=== PATIENT | female | born 1950 | race Caucasian/White ===

== ENCOUNTER → 2018-07-22 09:39 | Outpatient (CLI) | payer OTHER, MEDICARE, SELFPAY ==
[2018-07-22 10:41] LABS: Add Manual Diff / Slide Review NO; Basophils Percent Auto 0.6 % (0-2); Eosinophils Percent Auto 3.9 % (2-4); Hematocrit 38.1 % (36-46); Hemoglobin 12.6 g/dL (12.0-16.0); Lymphocytes Percent Auto 22.1 % (25-40); Mean Corpuscular HGB Conc 33.1 % (30-36); Mean Corpuscular Hemoglobin 29.1 PG (26-34); Mean Corpuscular Volume 87.9 fL (80-100); Monocytes Percent Auto 7.8 % (3-14); Neutrophils Absolute Auto 3000 /uL (3000-5900); Neutrophils Percent Auto 65.6 % (50-75); Platelet Count 165 X10^3/uL (150-400); Red Blood Cell Count 4.33 X10^6/uL (4.0-5.2); Red Cell Distribution Width 16.2 % (11.6-14.8); White Blood Cell Count 4.5 X10^3/uL (4.5-11.0)
[2018-07-22 10:57] LABS: Blood Urea Nitrogen 24 mg/dL (7-17); Calcium 9.2 mg/dL (8.4-10.2); Carbon Dioxide 26 mmol/L (22-32); Chloride 104 mmol/L (98-107); Estimated Glomerular Filt Rate > 60.0 mL/min (>60); Glucose 221 mg/dL (80-110); HEMOLYSIS < 15 (0-50); Potassium 4.1 mmol/L (3.4-5.1); Sodium 139 mmol/L (137-145)
[2018-07-22 11:03] LABS: Hemoglobin A1C% w Est Avg Glu 7.7 % (4.0-6.0)
== END ==
PROVIDERS: PCP Internal Medicine; Visit Provider Internal Medicine
DX: E78.00 Pure hypercholesterolemia, unspecified (principal); E11.9 Type 2 diabetes mellitus without complications
CPT/HCPCS: 36415; 80048; 83036; 85025

== ENCOUNTER → 2019-01-14 09:41 | Outpatient (CLI) | payer OTHER, SELFPAY ==
[2019-01-14 10:19] LABS: Add Manual Diff / Slide Review NO; Basophils Absolute Auto 0 /uL (0-100); Basophils Percent Auto 0.8 % (0-2); Eosinophils Absolute Auto 200 /uL (0-450); Eosinophils Percent Auto 4.6 % (2-4); Hematocrit 41.1 % (36-46); Hemoglobin 13.3 g/dL (12.0-16.0); Lymphocytes Absolute Auto 1000 /uL (1100-4500); Lymphocytes Percent Auto 26.9 % (25-40); Mean Corpuscular HGB Conc 32.3 % (30-36); Mean Corpuscular Hemoglobin 28.7 PG (26-34); Mean Corpuscular Volume 88.8 fL (80-100); Monocytes Absolute Auto 300 /uL (0-900); Monocytes Percent Auto 7.9 % (3-14); Neutrophils Absolute Auto 2300 /uL (1500-7000); Neutrophils Percent Auto 59.8 % (50-75); Platelet Count 165 X10^3/uL (150-400); Red Blood Cell Count 4.62 X10^6/uL (4.0-5.2); White Blood Cell Count 3.9 X10^3/uL (4.5-11.0)
[2019-01-14 10:31] LABS: Alanine Aminotransferase 23 IU/L (9-52); Albumin Globulin Ratio 1.3 (1.0-2.8); Alkaline Phosphatase 79 U/L (38-126); Aspartate Aminotransferase 16 IU/L (14-36); Bilirubin Total 0.5 mg/dL (0.2-1.3); Blood Urea Nitrogen 24 mg/dL (7-17); Calcium 9.3 mg/dL (8.4-10.2); Carbon Dioxide 25 mmol/L (22-32); Chloride 104 mmol/L (98-107); Cholesterol 202 mg/dL (140-199); Estimated Glomerular Filt Rate > 60.0 mL/min (>60); Glucose 108 mg/dL (80-110); HDL Cholesterol 53 mg/dL (40-60); HEMOLYSIS < 15 (0-50); LDL Cholesterol Calculated 128 mg/dL (<100); Potassium 3.9 mmol/L (3.4-5.1); Sodium 139 mmol/L (137-145); Triglycerides 105 mg/dL (35-150)
[2019-01-14 10:58] LABS: Hemoglobin A1C% w Est Avg Glu 9.1 % (4.0-6.0)
[2019-01-14 11:43] LABS: Hep C Virus Ab w/Reflex Quant NEGATIVE s/c (NEGATIVE)
== END ==
PROVIDERS: Family Provider Internal Medicine; PCP Internal Medicine; Visit Provider Internal Medicine
DX: E11.9 Type 2 diabetes mellitus without complications (principal); E78.00 Pure hypercholesterolemia, unspecified; K76.0 Fatty (change of) liver, not elsewhere classified
CPT/HCPCS: 36415; 80053; 80061; 83036; 85025; 86803

== ENCOUNTER → 2019-01-23 08:00 | Outpatient (CLI) | payer OTHER, SELFPAY ==
--- NOTE | 2019-01-23 | DI.NM.S_ITS ---
PROCEDURE: NM KATE PERF SPECT R&S PHARM Rest and pharmacological stress myocardial perfusion SPECT with gated imaging and ejection fraction RADIOPHARMACEUTICAL: 26.2 mCi Tc-99m tetrafosmin IV at rest and 26.2 mCi Tc-99m tetrafosmin IV at peak effect of pharmacological stress. [id number] was performed. INDICATIONS: DYSPNEA TECHNIQUE: Radiopharmaceutical was injected at peak stress test, and also at rest. SPECT images were obtained. SPECT myocardial perfusion images were displayed in short axis, horizontal long axis, and vertical long axis views. Gated images were reviewed using [employer] software. COMPARISON: None. CARDIAC STRESS: A pharmacologic stress test was performed under the supervision of an attending staff, using an infusion of lexiscan 0.4mg IV X1. Hemodynamic data: There is normal blood pressure and heart rate response to pharmacologic stress. Symptoms: The patient denied anginal chest pain. Aminophylline: none EKG: No diagnostic changes of ischemia; no ectopy. FINDINGS: Raw data: There is good myocardial uptake of radiotracer. No significant motion artifacts. Lvyc-fi-vagzr ratio is 0.47 (normal is less than 0.38 for tetrafosmin tracer). Left ventricle function: Gated images demonstrate normal left ventricular wall thickening. No segmental wall motion abnormalities. No transient ischemic dilation; TID is 0.99 (normal less than 1.3). Left ventricle resting end diastolic volume is 138 mL. Left ventricle stress ejection fraction is 70%; normal range is above 45%. Myocardial perfusion: There is a moderately sized reversible defect at the apex consistent with ischemia. No infarction. SSS 9, SRS 0. IMPRESSION: abnormal pharmaceutical nuclear stress suggestive of ischemia. 1) Abnormal perfusion images, consistent with ischemia in the apex. No prior infarction. SSS 9, SRS 0. 2) Normal left ventricular size, wall motion, and systolic function (EF post stress 70%). 3) Abnormal lung/heart ratio of 0.47, which could be due to high risk ischemia. 4) No angina during the study. 5) No ECG evidence of ischemia. 6) No prior nuclear stress test available for comparison. Recommend cardiology consultation if consistent with patient's goals of care. Dictated by: Disha Poole MD on 01/24/2019 at 12:56 Approved by: Disha Poole MD on 01/24/2019 at 13:00
--- NOTE | 2019-01-23 09:29 | PM.TREADMILL ---
Cardiac Stress Test Report Referral & Results Date Patient Seen: 01/23/19 Requesting provider: Faustino Montesinos Indication: Dyspnea, several risk factors Rest ECG: Unremarkable Procedure Note: After both written and verbal informed consent the patient had an IV started by the diagnostic imaging RN and then was hooked up to the treadmill monitoring system. The patient was placed on the treadmill at 1 mile an hour with no elevation and was then injected with the Gina scan material. The Cardiolite was then immediately administered. The patient spent an additional 2-3 minutes on the treadmill before being returned to the [facility] in the supine position. The patient had a normal response to all infused materials. Patient became quite dyspneic with minimal activity, beyond the usual experienced with the infusion of Lexiscan Impression: Significant dyspnea with activity Otherwise normal response to infuse materials Please see perfusion imaging report for details regarding possible ischemia Please note: Actual ECG tracings can be found in the PACS system.
== END ==
PROVIDERS: Family Provider Internal Medicine; PCP Internal Medicine; Visit Provider Internal Medicine
DX: R06.00 Dyspnea, unspecified (principal); I25.9 Chronic ischemic heart disease, unspecified
CPT/HCPCS: 78452; 93016; 93017; 93018; A9502; J2785

== ENCOUNTER 2019-03-10 17:47 | Emergency (ER) | payer OTHER, MEDICARE, SELFPAY ==
[2019-03-10 17:54] VITALS: BP 155/75; PULSE 72; RESP 18; TEMP 36.2; O2SAT 98; BMI 46.6
--- NOTE | 2019-03-10 18:03 | DI.RAD.S_ITS ---
PROCEDURE: XR ANKLE RT MIN 3V INDICATIONS: FOOT AND ANKLE PAIN AND INJURY TECHNIQUE: 3 views of the ankle were acquired. COMPARISON: [facility], CR, XR FOOT RT MIN 3V, 03/10/2019, 18:19. FINDINGS: Bones: No dislocations. Ankle mortise is normally aligned. No suspicious bony lesions. There is a diagonal fracture across the base of the fifth metatarsal bone, also seen on foot plain films same day. Soft tissues: No tibiotalar joint effusion. Achilles tendon appears normal. IMPRESSION: No trauma to the ankle found. Fifth metatarsal base fracture also seen on dedicated plain films of the foot from today. Dictated by: Josemanuel Juarez M.D. on 03/10/2019 at 18:57 Approved by: Josemanuel Juarez M.D. on 03/10/2019 at 18:57
--- NOTE | 2019-03-10 18:03 | DI.RAD.S_ITS ---
PROCEDURE: XR FOOT RT MIN 3V INDICATIONS: FOOT AND ANKLE PAIN AND INJURY TECHNIQUE: 3 views of the foot were acquired. COMPARISON: [facility], CR, XR ANKLE RT MIN 3V, 03/10/2019, 18:19. FINDINGS: Bones: No fractures or dislocations. No suspicious bony lesions. Diagonall intra-articular fracture across the base of the fifth metatarsal bone. Soft tissues: No tibiotalar joint effusion. Achilles tendon appears normal. IMPRESSION: Fifth metatarsal bone diagonal fracture, no definite acute disease otherwise. Dictated by: Josemanuel Juarez M.D. on 03/10/2019 at 18:54 Approved by: Josemanuel Juarez M.D. on 03/10/2019 at 18:56
--- NOTE | 2019-03-10 19:04 | ED.LOWEXIN ---
HPI - Extremity Injury (Lower) General Chief Complaint: Extremity Injury, Lower Stated Complaint: right foot pain Source: patient Mode of arrival: ambulatory Limitations: no limitations History of Present Illness HPI Narrative: Patient is a 68-year-old female who presents with right foot pain. She said she rolled her ankle is today at about 7:00 a.m.. She has been able to weightbear some but mostly toe touching. She heard something snap. She has mostly pain on the lateral side of her foot. No other injury knee and hip are stable. she says that she injured it multiple years ago and heard a snap as well she feels like this is in the same place. Patient also had cardiac stents placed last week. She is on Plavix. She has no chest pain no shortness of breath no other signs or symptoms. MD complaint: foot injury Related Data Home Medications Medication Instructions Recorded Confirmed ASPIRIN (Aspirin Ec) 81 mg PO Q DAY #0 10/28/06 [FLAXSEED OIL ] 1 cap PO QDAY #0 10/28/06 benazepril 40 mg PO QDAY #0 07/08/11 pravastatin [Pravachol] 20 mg PO QDAY #0 07/08/11 omeprazole 20 mg PO QDAY@0600 #0 06/09/12 cyclosporine [Restasis] 1 drp OPHTH PRN PRN #0 11/16/16 insulin NPH and regular human 35 units SQ BID #0 11/16/16 [Novolin 70/30 U-100 Insulin] melatonin 3 mg PO HS #0 11/16/16 montelukast 10 mg PO QDAY #0 11/16/16 olopatadine [Patanol] 1 drp OPHTH BID #0 11/16/16 pseudoephedrine HCl 30 mg PO Q12HP PRN #0 11/16/16 triamcinolone acetonide 1 miguel ángel TOPICAL PRN #0 11/16/16 [FISH OIL] 1 cap PO QDAY #0 01/27/18 atenolol 25 mg PO QDAY #0 01/27/18 furosemide 20 mg PO QDAY #0 01/27/18 ketoconazole 1 miguel ángel TOPICAL BID #0 01/27/18 pioglitazone [Actos] 45 mg PO QDAY #0 01/27/18 potassium chloride [Klor-Con M20] 20 meq PO AMCC #0 01/27/18 sodium chloride [Preston 128] 15 ml OPHTH HS #0 01/27/18 vitamin B complex [B 1 tab PO QDAY #0 01/27/18 Complex-Vitamin B12] Previous Rx's Medication Instructions Recorded metformin [Glucophage] 500 mg PO BIDCC #120 05/12/12 metronidazole [MetroCream] 0 TOPICAL SEE INSTRUCTIONS #45 gm 06/09/12 sumatriptan succinate 0 PO SEE INSTRUCTIONS #18 12/13/12 loratadine [Claritin] 10 mg PO QDAYP PRN #90 05/11/13 hydrocodone-acetaminophen [Pierre Part] 1 tab PO Q4-6H PRN #10 tab 03/10/19 Allergies Allergy/AdvReac Type Severity Reaction Status Date / Time blood preasure med? AdvReac Unknown unknown Uncoded 03/10/19 17:54 Review of Systems Review of Systems GENERAL: Denies chills,fever HEENT: Denies throat pain RESPIRATORY: Denies dyspnea, cough, wheezing CARDIOVASCULAR: Denies chest pain, palpitations GASTROINTESTINAL: Denies nausea, vomiting MUSCULOSKELETAL: See HPI SKIN: No rash, no laceration, no pruritus NEUROLOGIC: Denies weakness, dizziness, headache, numbness 8 point review of systems is negative except for those stated above and HPI PFSH Medical History Coronary artery disease (Acute) Diabetes (Acute) Hyperlipidemia (Acute) Hypertension (Acute) Social History Smoking Status: Never smoker Social History Smoking Status: Never smoker Exam Initial Vital Signs Initial Vital Signs: Vital Signs Temperature 97.2 F L 03/10/19 17:54 Pulse Rate 72 03/10/19 17:54 Respiratory Rate 18 03/10/19 17:54 Blood Pressure 155/75 H 03/10/19 17:54 Pulse Oximetry 98 03/10/19 17:54 GENERAL: Overweight female in no acute distress HEENT: Head atraumatic,EOMI, pupils reactive, CARDIOVASCULAR: Regular rate and rhythm without murmurs, rubs or gallops. RESPIRATORY: Breath sounds equal bilaterally, no wheezes rales or rhonchi. EXTREMITIES: Normal range of motion, no clubbing or edema. Neurovascularly intact -right lower extremity pain lateral foot and just inferior to the malleoli. No swelling no contusion or trauma distal pedal pulse intact. Able to flex and extend foot. Achilles intact and stable NEUROLOGICAL: Alert and oriented x4.Normal gait and speech. SKIN: Warm, dry, no laceration, no petechiae, no rashes or lesions. Procedures Orthopedic Splinting/Casting Injury #1: Side: right Lower Extremity Injury Location: foot Lower Extremity Immobilizer: post-op shoe Post splinting neuro exam: intact Post splinting vascular exam: intact Placed by: Nursing Course Orders Ordered: ED Orders 03/10/19 18:03 XR ankle RT min 3V Stat XR foot RT min 3V Stat Discontinued Medications Acetaminophen (Tylenol) 975 mg PO NOW ONE Stop: 03/10/19 18:58 Last Admin: 03/10/19 19:38 Dose: 975 mg Vital Signs - 8 hr 03/10/19 17:54 03/10/19 19:55 Temperature 97.2 F L 98.2 F Pulse Rate 72 78 Respiratory Rate 18 18 Blood Pressure 155/75 H Pulse Oximetry 98 100 MDM - Extremity Injury (Lower) Imaging Data right ankle xr: Radiologist's impression: PROCEDURE: XR ANKLE RT MIN 3V INDICATIONS: FOOT AND ANKLE PAIN AND INJURY TECHNIQUE: 3 views of the ankle were acquired. COMPARISON: [facility], XR FOOT RT MIN 3V, 03/10/2019, 18:19. FINDINGS: Bones: No dislocations. Ankle mortise is normally aligned. No suspicious bony lesions. There is a diagonal fracture across the base of the fifth metatarsal bone, also seen on foot plain films same day. Soft tissues: No tibiotalar joint effusion. Achilles tendon appears normal. IMPRESSION: No trauma to the ankle found. Fifth metatarsal base fracture also seen on dedicated plain films of the foot from today. Dictated by: Josemanuel Juarez M.D. on 03/10/2019 at 18:57 right foot: Radiologist's impression: PROCEDURE: XR FOOT RT MIN 3V INDICATIONS: FOOT AND ANKLE PAIN AND INJURY TECHNIQUE: 3 views of the foot were acquired. COMPARISON: [facility], , XR ANKLE RT MIN 3V, 03/10/2019, 18:19. FINDINGS: Bones: No fractures or dislocations. No suspicious bony lesions. Diagonall intra-articular fracture across the base of the fifth metatarsal bone. Soft tissues: No tibiotalar joint effusion. Achilles tendon appears normal. IMPRESSION: Fifth metatarsal bone diagonal fracture, no definite acute disease otherwise. Dictated by: Josemanuel Juarez M.D. on 03/10/2019 at 18:54 Approved by: Josemanuel Juarez M.D. on 03/10/2019 at 18:56 Discharge Plan Departure Patient Disposition: Home Clinical Impression: Closed nondisplaced fracture of fifth right metatarsal bone Qualifiers: Encounter type: initial encounter Qualified Code(s): S92.354A - Nondisplaced fracture of fifth metatarsal bone, right foot, initial encounter for closed fracture Discharge Date/Time: 03/10/19 19:56 Interventions: ED Discharge Assessment Last Done: 03/10/19 19:55 Instructions: DI for Foot Fracture Activity Restrictions/Additional Instructions: *You have been diagnosed with right foot fracture *What to do: This may require surgery. Please keep orthopedic shoe on. *Continue to take medications as directed -Pierre Part 1 tablet every 6 hours if needed for severe pain Tylenol 650 mg every 4-6 hours if needed for [id number] *Follow up with your primary care provider in 2-3 days *Return to ER if you should have increasing numbness, tingling, or any new, worsening or concerning symptoms CONTROLLED SUBSTANCE DISCHARGE (Narcotoic/benzodiazepine/Flexeril/Phenergan) 1. You have been prescribed narcotic medications, it does have acetaminophen/Tylenol/paracetamol in it so do not take extra Tylenol or Tylenol containing products 2. Please understand that we cannot provide further refills of narcotics, benzodiazepines or controlled substances through the ED and her pain management will need to be through your provider. 3. While on these medications you cannot drive or operate heavy machinery. 4. You cannot sign legal documents or perform any duties such as this. 5. As long as you're taking opiate pain medications he should also be taking a stool softener such as Colace, Dulcolax, MiraLAX or prune juice, to help avoid constipation. Prescriptions: New hydrocodone-acetaminophen [Pierre Part] 5-325 mg tablet 1 tab PO Q4-6H PRN (Reason: pain) Qty: 10 RF: 0 No Action ASPIRIN (Aspirin Ec) 81 mg PO Q DAY Qty: 0 RF: 0 [FLAXSEED OIL ] 1 cap PO QDAY Qty: 0 RF: 0 benazepril 40 MG tablet 40 mg PO QDAY Qty: 0 RF: 0 pravastatin [Pravachol] 20 MG tablet 20 mg PO QDAY Qty: 0 RF: 0 metformin [Glucophage] 500 MG tablet 500 mg PO BIDCC Qty: 120 RF: 3 metronidazole [MetroCream] 0.75 % cream Topical SEE INSTRUCTIONS Qty: 45 RF: 3 omeprazole 20 MG capsule,delayed release(DR/EC) 20 mg PO QDAY@0600 Qty: 0 RF: 0 sumatriptan succinate 50 MG tablet PO SEE INSTRUCTIONS Qty: 18 RF: 6 loratadine [Claritin] 10 MG tablet 10 mg PO QDAYP PRNQty: 90 RF: 3 montelukast 10 MG tablet 10 mg PO QDAY Qty: 0 RF: 0 olopatadine [Patanol] 5 ML drops 1 drp OPHTH BID Qty: 0 RF: 0 insulin NPH and regular human [Novolin 70/30 U-100 Insulin] 100 UNIT/1 ML suspension 35 units SQ BID Qty: 0 RF: 0 cyclosporine [Restasis] 1 EACH dropperette 1 drp OPHTH PRN PRNQty: 0 RF: 0 melatonin 3 MG tablet 3 mg PO HS Qty: 0 RF: 0 triamcinolone acetonide 0.025 % cream 1 miguel ángel Topical PRN Qty: 0 RF: 0 pseudoephedrine HCl 30 MG tablet 30 mg PO Q12HP PRNQty: 0 RF: 0 atenolol 25 MG tablet 25 mg PO QDAY Qty: 0 RF: 0 pioglitazone [Actos] 45 MG tablet 45 mg PO QDAY Qty: 0 RF: 0 [FISH OIL] 1 cap PO QDAY Qty: 0 RF: 0 sodium chloride [Preston 128] 15 ML drops 15 ml OPHTH HS Qty: 0 RF: 0 vitamin B complex [B Complex-Vitamin B12] 1 EACH tablet 1 tab PO QDAY Qty: 0 RF: 0 ketoconazole 2 % cream 1 miguel ángel Topical BID Qty: 0 RF: 0 potassium chloride [Klor-Con M20] 20 MEQ tablet,ER particles/crystals 20 meq PO AMCC Qty: 0 RF: 0 furosemide 20 MG tablet 20 mg PO QDAY Qty: 0 RF: 0 Referrals: [facility] [Provider Group] Faustino Montesinos MD [Primary Care Provider] -
[2019-03-10] MEDS: ACETAMINOPHEN 325 MG TABLET 975 MG PO (19:38)
[2019-03-10 19:55] VITALS: PULSE 78; RESP 18; TEMP 36.8; O2SAT 100
== END 2019-03-10 19:56 | disposition home or self-care (01) ==
PROVIDERS: Emergency Provider Emergency Medicine; Family Provider Internal Medicine; PCP Internal Medicine
DX: S92.354A Nondisplaced fracture of fifth metatarsal bone, right foot, initial encounter for closed fracture (principal); M25.571 Pain in right ankle and joints of right foot; Z79.02 Long term (current) use of antithrombotics/antiplatelets
CPT/HCPCS: 73610; 73630; 99282; 99283

== ENCOUNTER → 2019-05-24 17:23 | Outpatient (CLI) | payer OTHER, MEDICARE, SELFPAY ==
--- NOTE | 2019-05-24 | DI.RAD.S_ITS ---
PROCEDURE: XR CHEST 2V INDICATIONS: COUGH TECHNIQUE: 2 views of the chest were acquired. COMPARISON: [facility], , CHEST 2 VIEW, 06/08/2012, 16:24. FINDINGS: Surgical changes and devices: None. Lungs and pleura: Lungs are clear. No pleural effusions or pneumothorax. Mediastinum: Mediastinal contours are normal. Heart size is normal. Bones and chest wall: No suspicious bony abnormalities. Soft tissues appear unremarkable. IMPRESSION: No acute cardiopulmonary disease. Dictated by: Deep Pepe M.D. on 05/25/2019 at 9:16 Approved by: Deep Pepe M.D. on 05/25/2019 at 9:21
== END ==
PROVIDERS: Family Provider Internal Medicine; PCP Internal Medicine; Visit Provider Internal Medicine
DX: R05 Cough (principal)
CPT/HCPCS: 71046

== ENCOUNTER → 2019-07-10 09:41 | Outpatient (CLI) | payer OTHER, MEDICARE, SELFPAY ==
[2019-07-10 10:28] LABS: BUN Creatinine Ratio 32.5 (6-22); Blood Urea Nitrogen 26 mg/dL (7-17); Estimated Glomerular Filt Rate > 60.0 mL/min (>60)
[2019-07-10 10:30] LABS: Add Manual Diff / Slide Review NO; Basophils Absolute Auto 0 /uL (0-100); Basophils Percent Auto 0.6 % (0-2); Eosinophils Absolute Auto 100 /uL (0-450); Eosinophils Percent Auto 3.8 % (2-4); Hematocrit 37.3 % (36-46); Hemoglobin 12.2 g/dL (12.0-16.0); Lymphocytes Absolute Auto 900 /uL (1100-4500); Lymphocytes Percent Auto 23.6 % (25-40); Mean Corpuscular HGB Conc 32.6 % (30-36); Mean Corpuscular Hemoglobin 29.5 PG (26-34); Mean Corpuscular Volume 90.6 fL (80-100); Monocytes Absolute Auto 300 /uL (0-900); Neutrophils Absolute Auto 2400 /uL (1500-7000); Platelet Count 151 X10^3/uL (150-400); Red Blood Cell Count 4.12 X10^6/uL (4.0-5.2); Red Cell Distribution Width 15.7 % (11.6-14.8); White Blood Cell Count 3.9 X10^3/uL (4.5-11.0)
[2019-07-10 10:42] LABS: Alanine Aminotransferase 18 IU/L (9-52); Albumin Globulin Ratio 1.5 (1.0-2.8); Alkaline Phosphatase 63 U/L (38-126); Aspartate Aminotransferase 15 IU/L (14-36); BUN Creatinine Ratio 32.5 (6-22); Bilirubin Total 0.6 mg/dL (0.2-1.3); Bilirubin Unconjugated 0.4 mg/dL (0.0-1.1); Blood Urea Nitrogen 26 mg/dL (7-17); Calcium 9.1 mg/dL (8.4-10.2); Carbon Dioxide 25 mmol/L (22-32); Chloride 105 mmol/L (98-107); Cholesterol 103 mg/dL (140-199); Estimated Glomerular Filt Rate > 60.0 mL/min (>60); Globulin 2.6 g/dL (1.7-4.1); Glucose 257 mg/dL (80-110); HDL Cholesterol 54 mg/dL (40-60); HEMOLYSIS < 15 (0-50); LDL Cholesterol Calculated 33 mg/dL (<100); Potassium 4.3 mmol/L (3.4-5.1); Sodium 140 mmol/L (137-145); Total Protein 6.6 g/dL (6.3-8.2); Triglycerides 82 mg/dL (35-150)
[2019-07-10 11:41] LABS: TSH w/ Reflex to FT4 1.61 uIU/mL (0.47-4.68)
== END ==
PROVIDERS: PCP Internal Medicine; Visit Provider Internal Medicine Cardiovascular Disease
DX: E78.5 Hyperlipidemia, unspecified (principal); I10 Essential (primary) hypertension; K76.0 Fatty (change of) liver, not elsewhere classified; R68.89 Other general symptoms and signs; E11.9 Type 2 diabetes mellitus without complications
CPT/HCPCS: 36415; 80048; 80061; 80076; 82565; 84443; 84520; 85025

== ENCOUNTER → 2019-07-11 12:38 | Outpatient (CLI) | payer OTHER, MEDICARE, SELFPAY ==
--- NOTE | 2019-07-11 | DI.US.S_ITS ---
PROCEDURE: US PERIPH VENOUS UP EXTREM LT INDICATIONS: LEFT ARM SWELLING TECHNIQUE: Real-time imaging, as well as color and pulse Doppler interrogation, was performed of the left upper extremity deep veins from the inferior neck to the antecubital fossa. COMPARISON: None. FINDINGS: The internal jugular vein, visualized portions of the subclavian vein, axillary, and brachial veins are free of intraluminal thrombus. Where physically possible, the veins are normally compressible. Color and pulse Doppler demonstrate normal intraluminal flow, with expected phasicity and pulsatility. Additional scanning of the cephalic and basilic veins of the superficial system demonstrate normal compressibility, without thrombus. IMPRESSION: No left upper extremity venous thrombosis. Dictated by: Sravan TATE Interpreted: Laurie Haywood MD on 07/11/2019 at 14:12 Approved by: Laurie Haywood M.D. on 07/11/2019 at 14:42
--- NOTE | 2019-07-11 | DI.CT.S_ITS ---
PROCEDURE: CT ANGIO CHEST PE PROTOCOL INDICATIONS: DYSPNEA TECHNIQUE: After the administration of intravenous contrast, 2 mm thick sections acquired from the pulmonary apices to the posterior costophrenic angles. 3-dimensional maximum intensity projection (MIP) coronal and sagittal reformats were then acquired through the thorax. For radiation dose reduction, the following was used: automated exposure control, adjustment of mA and/or kV according to patient size. COMPARISON: None. FINDINGS: Image quality: Excellent. Pulmonary arteries: Pulmonary arteries are normal in size, and demonstrate no intraluminal filling defects to suggest central pulmonary embolism. Lungs and pleura: Lungs are mildly edematous. No pleural effusions or pneumothorax. Central and peripheral airways are patent. Mediastinum: Heart size is mildly enlarged, without pericardial effusion. No mediastinal or hilar adenopathy. Thoracic aorta is normal in caliber and enhancement. Esophagus is normal in caliber, without hiatal hernia. Bones and chest wall: No suspicious bony lesions. Ribs and thoracic spine appear intact throughout. Thyroid gland appears normal where well seen. No axillary or supraclavicular adenopathy. Abdomen: Visualized upper abdominal solid organs appear normal in the early arterial phase of enhancement. IMPRESSION: No pulmonary embolus found. Mild pulmonary edema noted within the lung parenchyma. Mild cardiomegaly. Etiology of this edema pattern is uncertain but statistically this likely reflects cardiogenic origin. Alveolar edema of any etiology, however, can produce this appearance. Dictated by: Josemanuel Juarez M.D. on 07/11/2019 at 14:11 Approved by: Josemanuel Juarez M.D. on 07/11/2019 at 14:12
== END ==
PROVIDERS: PCP Internal Medicine; Visit Provider Internal Medicine
DX: R06.00 Dyspnea, unspecified (principal); J81.1 Chronic pulmonary edema; I51.7 Cardiomegaly; M79.89 Other specified soft tissue disorders
CPT/HCPCS: 71275; 93971; Q9967

== ENCOUNTER → 2019-07-28 12:55 | Outpatient (CLI) | payer OTHER, MEDICARE, SELFPAY ==
--- NOTE | 2019-07-28 15:06 | DIET.PN ---
DIABETES Nutrition Initial Assessment:? ASSESS:?? 68 yof with long standing hx of type 2 diabetes and long-term use of insulin. Reports she was diagnosed approximately 9 years ago after several years with pre-diabetes. She also has a history of ASHD. She had 2 stents placed in January and has been going to cardiopulmonary rehabilitation for several months. She complains of edema in LE and left arm making exercise difficult. She monitors her BG in the morning. Complains even with cutting out sugar, flour, and dairy she is not seeing dramatic results with her FBG. ?? LABS: Per pt report:? A1c: 9.1 FB-201 ? MEDS:?? Novolin 35u a.m. 30u p.m. ? DIET: Per 24-hour recall:? B: 1 banana, whole wheat toast w/ butter, poached egg, ? c blueberries L: yogurt, 1 bagel w/ cream cheese D: 2 Tblsp PB, 1 chicken/apple sausage S: Orchard snack (almonds, walnuts, cranberries, pistachios), 5 cherries, ? cup blueberries ? Weight: 260# Height: 63? Exercise:? cardio rehab or walking 1 mi alternating days NUTRITION DX 1. Altered Nutrition related labs related to impaired glucose metabolism, lack of previous exposure to accurate nutrition information as evidenced by pt report, dx of diabetes, previous diet high in refined carbohydrates.? INTERVENTION(s): 1. Discussed pathophysiology of diabetes. Reviewed A1c and its correlation to blood glucose numbers. Discussed recommended BG ranges of FBG 90-130mg/dL and 90-150mg/dL evening. 2. Discussed importance of self-monitoring, how often, and when to check. Recommended pt begin monitoring evening Bg. 3. Reviewed hyper/hypoglycemia and treatment. 4. Discussed impact of nutrition/diet on blood sugar control.? Discussed fed versus non-fed state.?? 5. Discussed the effect of carbohydrates/protein/fat on blood sugar control.? Stressed importance of consistent carbohydrate intake at each meal and provided instructions for recommended servings/portions of carbohydrates/protein per meal. Provided pt with educational material. 6. Reviewed carbohydrate counting and measuring carbohydrate content via serving sizes and reading nutrition labels.? Provided handouts.?? 7. Discussed the difference between simple versus complex carbohydrates and the effect of fiber on blood sugar control.? Discussed various methods to increase fiber content in diet. 8. Stressed importance of meal timing and not going >4-5 hours between meals. Encouraged adding protein to each meal to support glucose control. Provided list of protein foods. Discussed best protein options for heart health and to alleviate hunger. Patient agreeable. 9. Discussed healthy weight loss through diet and exercise to increase lean muscle mass.? Pt agreeable to walking daily and will begin strength training possibly with the senior center. MONITOR/EVALUATE: Anticipate good compliance.? Nutrition follow-up schedule for 1 mo to review BG, weight, food record and discuss protein/fat and sodium.
== END ==
PROVIDERS: PCP Internal Medicine; Visit Provider Internal Medicine Cardiovascular Disease
DX: E11.9 Type 2 diabetes mellitus without complications (principal); Z79.4 Long term (current) use of insulin
CPT/HCPCS: 97802

== ENCOUNTER → 2019-08-23 10:03 | Outpatient (CLI) | payer OTHER, MEDICARE, SELFPAY ==
--- NOTE | 2019-08-23 11:42 | DIET.PN ---
Dietary Progress Note Assessment: Met with Ms. Diggs for f/u for type 2 diabetes. She brought her food log today. She has cut down on portions of starches and fruits as discussed in prior appointment. She has set a calorie goal of 1500 clint/day. She is a little frustrated with new lifestyle changes. States it is difficult changing her dietary and exercise patterns; however admits she does feel significantly better. Happy her weight is going down and she does not feel as bloated. HT: 63 WT: 256# UBW: 260# BMI: 45.3 Labs: A1c: 9.1 FB-208 Nutrition Diagnosis: Altered nutrition related lab r/t impaired glucose metabolism, lack of previous exposure to accurate nutrition information aeb pt report, dx of diabetes, previous diet high in refined carbohydrates/calories. Interventions: 1. Reviewed blood sugar log and implications/reasons for elevated/decreased blood sugar.? Pt with good understanding.? 2. Reviewed carbohydrate counting and importance of consistent carbohydrate intake.? 3. Reviewed meal intake and importance of balanced meals (vanessa to prevent overeating).??? 4. Provided information on fat/protein intake and ways to limit saturated fat. 5. Discussed phone apps for keeping track of clint/carbs. EER: 1500 clint for weight loss Monitoring/Evaluations: Patient has enrolled in the full DSME program. Intake scheduled for Sep 01.
== END ==
PROVIDERS: PCP Internal Medicine; Visit Provider Internal Medicine Cardiovascular Disease
DX: E11.9 Type 2 diabetes mellitus without complications (principal)
CPT/HCPCS: 97803

== ENCOUNTER → 2019-09-01 10:28 | Outpatient (CLI) | payer MEDICARE, OTHER, SELFPAY | PROVIDERS: PCP Internal Medicine; Visit Provider Internal Medicine | DX: E11.9 Type 2 diabetes mellitus without complications (principal); Z71.3 Dietary counseling and surveillance | CPT/HCPCS: G0108 ==

== ENCOUNTER → 2019-09-08 11:39 | Outpatient (CLI) | payer MEDICARE, OTHER, SELFPAY ==
[2019-09-08 12:24] LABS: Blood Urea Nitrogen 25 mg/dL (7-17); Calcium 10.3 mg/dL (8.4-10.2); Carbon Dioxide 31 mmol/L (22-32); Chloride 97 mmol/L (98-107); Estimated Glomerular Filt Rate 55.3 mL/min (>60); Glucose 200 mg/dL (80-110); HEMOLYSIS < 15 (0-50); Potassium 3.4 mmol/L (3.4-5.1); Sodium 140 mmol/L (137-145)
== END ==
PROVIDERS: PCP Internal Medicine; Visit Provider Internal Medicine Cardiovascular Disease
DX: R60.0 Localized edema (principal)
CPT/HCPCS: 36415; 80048

== ENCOUNTER → 2019-09-12 16:18 | Outpatient (CLI) | payer MEDICARE, OTHER, SELFPAY ==
--- NOTE | 2019-09-15 10:45 | DIET.PN ---
Dietary Progress Note Diabetes: Healthy Eating 1 Intervention: ?Discussed pathophysiology of diabetes and impact of nutrition/diet on blood sugar control.? Discussed fed versus non-fed state.?? ?Reviewed importance of Balance, Variety, and Moderation. ?Discussed the effect of carbohydrates/protein/fat on blood sugar control.? ?Stressed importance of consistent carbohydrate intake at each meal and provided instructions for recommended servings/portions of carbohydrates/protein per meal. Provided educational material. ?Reviewed carbohydrate counting and measuring carbohydrate content via serving sizes and reading nutrition labels.? Provided handouts.?? ?Discussed the difference between simple versus complex carbohydrates and the effect of fiber on blood sugar control.? Discussed various methods to increase fiber content in diet. ?Discussed the plate method for creating more carbohydrate conscious balanced meals. ?Stressed importance of meal timing and not going >4-5 hours between meals. Encouraged adding protein to evening snack to support glucose control overnight. ?Discussed importance of making dietary habits part of lifestyle change.
== END ==
PROVIDERS: PCP Internal Medicine; Visit Provider Internal Medicine
DX: E11.9 Type 2 diabetes mellitus without complications (principal); Z71.3 Dietary counseling and surveillance
CPT/HCPCS: G0109

== ENCOUNTER → 2019-09-26 14:25 | Outpatient (CLI) | payer MEDICARE, OTHER, SELFPAY ==
--- NOTE | 2019-09-26 16:35 | DIET.PN ---
Diabetes Progress Note Diabetes Physiology: Intervention 1. Diabetes physiology 2. Detecting and treatment of acute and chronic complications 3. Diagnosis of and difference in types of diabetes 4. Self-monitoring and pattern management a. Demonstrate glucometer and control testing b. Explain BG results and action to take when out of range. 5. Foot , eye, dental care 6. Medications a. Oral medication classification b. Injectable c. Insulin i. Injection protocol ii. Other delivery methods
== END ==
PROVIDERS: PCP Internal Medicine; Visit Provider Internal Medicine
DX: E11.9 Type 2 diabetes mellitus without complications (principal); Z71.3 Dietary counseling and surveillance
CPT/HCPCS: G0109

== ENCOUNTER 2019-09-27 08:30 | Outpatient (RCR) | payer MEDICARE, OTHER, SELFPAY | END 2019-09-27 15:20 | LOC: CAR 08:30 | PROVIDERS: PCP Internal Medicine; Visit Provider Internal Medicine Cardiovascular Disease | DX: I25.10 Atherosclerotic heart disease of native coronary artery without angina pectoris (principal); Z95.5 Presence of coronary angioplasty implant and graft | CPT/HCPCS: 93798 ==

== ENCOUNTER → 2019-09-29 14:30 | Outpatient (CLI) | payer MEDICARE, OTHER, SELFPAY ==
--- NOTE | 2019-09-29 | DI.MG.S_ITS ---
BILATERAL DIGITAL SCREENING MAMMOGRAM 3D/2D WITH CAD: 09/29/2019 CLINICAL: Routine screening. Family history of breast cancer. Comparison is made to exams dated: 05/18/2017 mammogram and 05/20/2009 mammogram - [facility]. The tissue of both breasts is heterogeneously dense. This may lower the sensitivity of mammography. Current study was also evaluated with a Computer Aided Detection (CAD) system. Please note that, per the mammographic technologists, images are the best images that could be obtained secondary to patient inability to tolerate optimal positioning secondary to recent leg injury and body habitus. There are avi-shaped calcifications in both breasts consistent with benign secretory calcifications. No significant masses, calcifications, or other findings are seen in either breast. There has been no significant interval change. IMPRESSION: Please note that, per the mammographic technologists, images are the best images that could be obtained secondary to patient inability to tolerate optimal positioning secondary to recent leg injury and body habitus. Within this context, there is no mammographic evidence of malignancy in the imaged areas of the breasts bilaterally on the current exam. A 1 year screening mammogram is recommended. This exam was interpreted at Station ID: [id number]. NOTE: For mammograms, a report in lay terms will be sent to the patient. Approximately 15% of breast malignancies will not be visualized mammographically. In the management of a palpable breast mass, a negative mammogram must not discourage biopsy of a clinically suspicious lesion. Electronically Signed By: Hayden Vivar M.D. ecl/:10/01/2019 22:10:53 letter sent: Normal Exam ACR BI-RADS Category 2: Benign Finding(s) 3342F
== END ==
PROVIDERS: PCP Internal Medicine; Visit Provider Internal Medicine
DX: Z12.31 Encounter for screening mammogram for malignant neoplasm of breast (principal); Z80.3 Family history of malignant neoplasm of breast
CPT/HCPCS: 77063; 77067

== ENCOUNTER → 2019-11-03 09:59 | Outpatient (CLI) | payer MEDICARE, OTHER, SELFPAY ==
--- NOTE | 2019-11-03 12:10 | DIET.PN ---
Exercise/Lifestyle change (1 hr): 1. Importance of exercise 2. FITT (frequency, intensity, time, type) 3. Strength training tips and guidelines 4. Glucose monitoring/ranges before and after 5. Proper foot attire 6. Developing strategies for behavior change 7. SMART Goal Setting 8. Home exercise routine demonstration (as a class)
== END ==
PROVIDERS: PCP Internal Medicine; Visit Provider Internal Medicine
DX: E11.9 Type 2 diabetes mellitus without complications (principal); M79.605 Pain in left leg; M79.604 Pain in right leg; Z71.3 Dietary counseling and surveillance
CPT/HCPCS: G0109

== ENCOUNTER → 2019-11-03 12:53 | Outpatient (CLI) | payer MEDICARE, OTHER, SELFPAY | PROVIDERS: PCP Internal Medicine; Visit Provider Internal Medicine | DX: M85.851 Other specified disorders of bone density and structure, right thigh (principal); Z78.0 Asymptomatic menopausal state; E11.9 Type 2 diabetes mellitus without complications; Z82.62 Family history of osteoporosis | CPT/HCPCS: 77080 ==

== ENCOUNTER → 2019-11-17 10:01 | Outpatient (CLI) | payer MEDICARE, OTHER, SELFPAY ==
--- NOTE | 2019-11-17 12:50 | DIET.PN ---
Diabetes: Healthy Eating 2 Intervention: Fats effects on glucose, weight, heart disease, cholesterol Sat Vs Unsat Protein- animal and plant based options Low, med, high fat meats Sugar substitutes Sodium Health claims Grocery shopping guidelines Eating away from home Alcohol Sick day guidelines
== END ==
PROVIDERS: PCP Internal Medicine; Visit Provider Internal Medicine
DX: E11.9 Type 2 diabetes mellitus without complications (principal); Z71.3 Dietary counseling and surveillance
CPT/HCPCS: G0109

== ENCOUNTER → 2019-11-28 12:33 | Outpatient (CLI) | payer MEDICARE, OTHER, SELFPAY ==
--- NOTE | 2019-11-28 | DI.MRI.S_ITS ---
PROCEDURE: MR LUMBAR SPINE WO CON INDICATIONS: radiculopathy, lumbosacral region TECHNIQUE: Noncontrast sagittal T1 spin echo and T2 fast echo, sagittal STIR, axial T1 and T2 fast spin echo through the lumbar spine. Axial and oblique coronal T1 spin echo and STIR through the sacrum. In cases with scoliosis, additional coronal T2 fast spin echo may be performed. COMPARISON: [facility], MR, L-SPINE WITHOUT CONTRAST, 04/07/2017, 17:51. [facility], MR, L-SPINE WITHOUT CONTRAST, 09/16/2016, 17:59. [facility], MR, L-SPINE WITHOUT CONTRAST, 03/21/2015, 18:23. FINDINGS: Image quality: Excellent. Alignment and Curvature: Mild levoconvex scoliotic curvature is noted. No focal AP alignment abnormality is seen. Bone Marrow: Marrow is of normal overall signal. The most prominent of these can be seen within the L3 vertebral body. No acute vertebral body compression fractures. No sacral fractures. Spinal Cord: Conus medullaris terminates at the L1 level. Visualized cord demonstrates normal signal and size. Paraspinous Soft Tissues: No paravertebral masses. T12-L1: Normal appearance. L1-L2: The disc height is well-preserved. Loss of disc signal is seen at this level. Mild generalized disc bulge is seen. There is mild to moderate bilateral neural foraminal narrowing seen, left worse than right. Mild central canal narrowing is seen. There has been mild progression compared to 2017. L2-L3: The disc height is well-preserved. Loss of disc signal is seen at this level. Moderate disc bulge is seen, which is eccentric to the left. There is at least moderate facet hypertrophy seen. Moderate bilateral neural foraminal narrowing is seen, left worse than right. There is at least moderate central canal narrowing seen. These imaging findings have progressed compared to the prior study. L3-L4: Mild loss of disc height is seen. Loss of disc signal is seen. There is a Schmorl's node seen at the inferior endplate of L3, without acute features. There is at least moderate facet disc bulge. Moderate to prominent facet hypertrophy is seen. There is fluid seen within the right facet joint. There is moderate to severe bilateral neural foraminal narrowing seen, right worse than left. There is a degree of compression seen upon the exiting nerve roots. Moderate to severe central canal narrowing is seen. These imaging findings have progressed compared to the prior study. L4-L5: The disc height is well-preserved. Loss of disc signal is seen at this level. Moderate disc bulge is seen, which is slightly eccentric to the right. There is at least moderate facet hypertrophy seen. There is at least moderate bilateral neural foraminal narrowing seen, right worse than left. There is a degree of compression seen upon the exiting nerve roots. There is at least moderate central canal narrowing seen. These imaging findings have progressed compared to the prior study. L5-S1: The disc height and disc signal are relatively well-preserved. Mild generalized disc bulge is seen. Ryti-fz-hjcytczc facet hypertrophy is seen. No significant neural foraminal or central canal narrowing can be seen. Stable from the prior study. Sacrum: Sacral neural foramina appear normal throughout. Superior to the piriformis muscles, the pre-plexal structures appear normal, including the lumbosacral trunk and S1 root. Just anterior to the piriformis muscles, the sacral plexus proper demonstrates normal morphology (lumbosacral trunk, S1 to S3 nerve roots). Inferior to the piriformis muscles, the sciatic nerves appear normal. IMPRESSION: Multiple levels of lumbar spine degenerative change are seen, which have progressed at several levels compared to 2017. Dictated by: Todd Garcia M.D. on 11/28/2019 at 12:56 Approved by: Todd Garcia M.D. on 11/28/2019 at 13:08
== END ==
PROVIDERS: PCP Internal Medicine; Visit Provider Orthopaedic Surgery Orthopaedic Surgery of the Spine
DX: M47.27 Other spondylosis with radiculopathy, lumbosacral region (principal); M47.26 Other spondylosis with radiculopathy, lumbar region
CPT/HCPCS: 72148

== ENCOUNTER → 2019-12-18 13:51 | Outpatient (CLI) | payer MEDICARE, OTHER, SELFPAY ==
--- NOTE | 2019-12-18 15:28 | DIET.PN ---
Addendum entered by Brittany Gramajo 12/18/19 16:04: AADE 7 Self-Care Behaviors Baseline vs 3 month follow up. Health Eatin% to 75% Being Active: 50% to 50% Healthy Copin% to 75% Taking Medications: 100% to 100% Reducing Risks: 50% to 75% Problem Solvin% to 75% Monitorin% to 100% Original Note: Diabetes Follow Up Assess: Met for Mrs. Maxwell 3 mo follow up visit. She continues to keep a daily record of her blood glucose, food diary, weight log, and medication amounts. She reports following a consistent carb diet and that this is getting easier; however, her blood glucose continue to be inconsistent ranging between 88-460. She has had a few hypoglycemic events in the middle of the night. She believes this is due to her changing units of novolin and plans to follow up with Dr. Mckeon (operations general agent) in December. She is disappointed with her lack of physical activity since being discharged from the cardiopulmonary exercise program. She started taking some classes at the [facility], but has not been able to attend due to severe back pain. She is looking to have back surgery in February. She is also taking some cooking classes at the [facility] and is now receiving weekly CSA boxes to include a wide variety of produce with recipes for preparing. This has led to great improvement in her vegetable intake. She remains concerned with her medication management and kidney function, but hopes her blood glucose will normalize with being able to begin exercising again after surgery. Labs: A1c: 7.9 (down from 9.1) Meds: Novolin 70/30 35 u a.m./30 u p.m. ; Glipizide 30 mg Dietary changes: Keeping a food log. Cut down on starches. Increased vegetable intake. Eating 3 meals/day. Wt: 238 # (down from 260#) Ht: 63 BMI: 42.2 %change: 8.5% Nutrition DX: Altered nutrition related laboratory values related to impaired glucose metabolism, lack of previous exposure to nutrition information as evidenced by pt report, diagnosis of diabetes, previous diet high in refined carbohydrates. Intervention: 1. Completed follow up assessment. Reviewed barriers to care. 2. Reviewed new labs and importance of continued BG monitoring. 3. Reviewed SMART goals and made modifications where appropriate including wt management, activity, and A1c goals. 4. Discussed plan for ongoing support. Provided information for continued support and success. SMART goals: 1. Patient would like to continue to lose weight (now 10%) by next follow up in 3 mo through continued dietary changes and exercise and will continue to weigh herself daily and keep a record. 2. Patient will follow up with operations general agent and PCP to discuss follow up labs and medication management in December. Monitor/Evaluate: Pt will follow up in 3 mo to discuss new labs and barriers to care.
== END ==
PROVIDERS: PCP Internal Medicine; Visit Provider Internal Medicine
DX: E11.649 Type 2 diabetes mellitus with hypoglycemia without coma (principal); Z79.4 Long term (current) use of insulin; Z79.84 Long term (current) use of oral hypoglycemic drugs; Z71.3 Dietary counseling and surveillance
CPT/HCPCS: G0109

== ENCOUNTER → 2020-01-17 13:28 | Outpatient (CLI) | payer MEDICARE, OTHER, SELFPAY ==
[2020-01-17 16:19] LABS: Alanine Aminotransferase 16 IU/L (<35); Albumin 4.3 g/dL (3.5-5.0); Albumin Globulin Ratio 1.4 (1.0-2.8); Alkaline Phosphatase 72 U/L (38-126); Aspartate Aminotransferase 22 IU/L (14-36); BUN Creatinine Ratio 22.7 (6-22); Bilirubin Total 0.5 mg/dL (0.2-1.3); Blood Urea Nitrogen 25 mg/dL (7-17); Calcium 9.8 mg/dL (8.4-10.2); Carbon Dioxide 30 mmol/L (22-32); Chloride 99 mmol/L (98-107); Estimated Glomerular Filt Rate 49.4 mL/min (>60); Glucose 78 mg/dL (80-110); HEMOLYSIS < 15 (0-50); Potassium 3.4 mmol/L (3.4-5.1); Sodium 139 mmol/L (137-145); Total Protein 7.3 g/dL (6.3-8.2)
[2020-01-17 16:45] LABS: Cholesterol 133 mg/dL (140-199); HDL Cholesterol 53 mg/dL (40-60); LDL Cholesterol Calculated 54 mg/dL (<100); Triglycerides 132 mg/dL (35-150)
[2020-01-17 16:51] LABS: Creatinine Urine Random 31.7 mg/dL
[2020-01-17 16:52] LABS: TSH w/ Reflex to FT4 2.73 uIU/mL (0.47-4.68)
[2020-01-17 16:56] LABS: Microalbumi Creatinin Ratio Ur 18.9 ug/mg CR (<30); Microalbumin Urine Random < 0.6 mg/dL (0-1.6)
== END ==
PROVIDERS: PCP Internal Medicine; Referring Provider Internal Medicine Endocrinology, Diabetes & Metabolism; Visit Provider Internal Medicine Endocrinology, Diabetes & Metabolism
DX: E11.65 Type 2 diabetes mellitus with hyperglycemia (principal); E78.00 Pure hypercholesterolemia, unspecified; I10 Essential (primary) hypertension; M79.89 Other specified soft tissue disorders; I50.32 Chronic diastolic (congestive) heart failure
CPT/HCPCS: 36415; 80053; 80061; 82043; 82570; 83036; 84443

== ENCOUNTER → 2020-04-10 14:31 | Outpatient (CLI) | payer MEDICARE, OTHER, SELFPAY ==
--- NOTE | 2020-04-10 | DI.NM.S_ITS ---
PROCEDURE: AL KATE PERF SPECT R&S PHARM Rest and pharmacological stress myocardial perfusion SPECT with gated imaging and ejection fraction RADIOPHARMACEUTICAL: 23.3 mCi Tc-99m tetrafosmin IV at rest and 25.2 mCi Tc-99m tetrafosmin IV at peak effect of pharmacological stress. Drt-kzz-gecqffef was performed. INDICATIONS: chest pain, unspecified TECHNIQUE: Radiopharmaceutical was injected at peak stress test, and also at rest. SPECT images were obtained. SPECT myocardial perfusion images were displayed in short axis, horizontal long axis, and vertical long axis views. Gated images were reviewed using Endpoint Clinical software. COMPARISON: [place], [place], NM KATE PERF SPECT R&S PHARM, 01/23/2019, 8:55. [place], [place], LEXISCAN MYOCARDIAL PERFUSION, 09/29/2013, 13:49. CARDIAC STRESS: A pharmacologic stress test was performed under the supervision of an attending staff, using an infusion of Lexiscan . Hemodynamic data: There is normal blood pressure and heart rate response to pharmacologic stress. Symptoms: The patient denied anginal chest pain. Aminophylline: not used. EKG: No diagnostic changes of ischemia; no ectopy. FINDINGS: Raw data: There is good myocardial uptake of radiotracer. No significant motion artifacts. Qfsj-gu-eigsl ratio is 0.39 (normal is less than 0.38 for tetrafosmin tracer). Left ventricle function: Gated images demonstrate normal left ventricular wall thickening. No segmental wall motion abnormalities. No transient ischemic dilation; TID is 0.93 (normal less than 1.3). Left ventricle resting end diastolic volume is 119 mL. Left ventricle stress ejection fraction is 74%; normal range is above 45%. Myocardial perfusion: There is a small, moderate apical septal and mid anteroseptal defect which resolves on prone imaging, consistent with attenuation artifact. Otherwise there is normal distribution of activity in the left ventricular myocardium. No fixed or reversible perfusion defects. IMPRESSION: -Normal myocardial perfusion study with no evidence of reversible ischemia. -Mild apical septal defect, consistent with attenuation artifact. -Prior reversible ischemia in the apex has resolved. -Borderline lung heart ratio. Improved from the prior study. -Overall this is a low risk study. Dictated by: Alvaro Hughes M.D. on 04/11/2020 at 18:19 Approved by: Alvaro Hughes M.D. on 04/11/2020 at 18:27
== END ==
PROVIDERS: PCP Internal Medicine; Referring Provider Internal Medicine Cardiovascular Disease; Visit Provider Internal Medicine Cardiovascular Disease
DX: R07.9 Chest pain, unspecified (principal); Z95.5 Presence of coronary angioplasty implant and graft
CPT/HCPCS: 78452; 93017; A9502; J2785

== ENCOUNTER → 2020-04-19 09:22 | Outpatient (CLI) | payer MEDICARE, OTHER, SELFPAY ==
[2020-04-19 10:17] LABS: Add Manual Diff / Slide Review NO; Basophils Absolute Auto 0 /uL (0-100); Basophils Percent Auto 0.4 % (0-2); Eosinophils Absolute Auto 100 /uL (0-450); Eosinophils Percent Auto 2.5 % (2-4); Hematocrit 40.5 % (36-46); Hemoglobin 13.8 g/dL (12.0-16.0); Lymphocytes Absolute Auto 1000 /uL (1100-4500); Mean Corpuscular HGB Conc 34.1 % (30-36); Mean Corpuscular Hemoglobin 30.5 PG (26-34); Mean Corpuscular Volume 89.4 fL (80-100); Monocytes Absolute Auto 400 /uL (0-900); Monocytes Percent Auto 6.1 % (3-14); Neutrophils Absolute Auto 4300 /uL (1500-7000); Platelet Count 171 X10^3/uL (150-400); Red Blood Cell Count 4.53 X10^6/uL (4.0-5.2); Red Cell Distribution Width 14.5 % (11.6-14.8); White Blood Cell Count 5.8 X10^3/uL (4.5-11.0)
[2020-04-19 10:40] LABS: Alanine Aminotransferase 22 IU/L (<35); Albumin 4.1 g/dL (3.5-5.0); Albumin Globulin Ratio 1.2 (1.0-2.8); Alkaline Phosphatase 72 U/L (38-126); Aspartate Aminotransferase 27 IU/L (14-36); BUN Creatinine Ratio 24.4 (6-22); Bilirubin Total 0.6 mg/dL (0.2-1.3); Blood Urea Nitrogen 22 mg/dL (7-17); Calcium 9.8 mg/dL (8.4-10.2); Carbon Dioxide 30 mmol/L (22-32); Chloride 100 mmol/L (98-107); Cholesterol 121 mg/dL (140-199); Estimated Glomerular Filt Rate > 60.0 mL/min (>60); Globulin 3.3 g/dL (1.7-4.1); Glucose 152 mg/dL (80-110); HDL Cholesterol 45 mg/dL (40-60); HEMOLYSIS < 15 (0-50); LDL Cholesterol Calculated 49 mg/dL (<100); Potassium 3.6 mmol/L (3.4-5.1); Sodium 135 mmol/L (137-145); Total Protein 7.4 g/dL (6.3-8.2); Triglycerides 135 mg/dL (35-150)
== END ==
PROVIDERS: Internal Medicine; Internal Medicine Cardiovascular Disease; PCP Internal Medicine; Referring Provider Internal Medicine; Visit Provider Internal Medicine
DX: E11.9 Type 2 diabetes mellitus without complications (principal); I10 Essential (primary) hypertension; I50.32 Chronic diastolic (congestive) heart failure
CPT/HCPCS: 36415; 80053; 80061; 83036; 85025; 86255

== ENCOUNTER → 2020-07-15 10:19 | Outpatient (CLI) | payer MEDICARE, OTHER, SELFPAY ==
[2020-07-15 11:12] LABS: Add Manual Diff / Slide Review NO; Basophils Absolute Auto 0 /uL (0-100); Basophils Percent Auto 0.8 % (0-2); Eosinophils Absolute Auto 200 /uL (0-450); Eosinophils Percent Auto 3.4 % (2-4); Hematocrit 41.4 % (36-46); Hemoglobin 13.7 g/dL (12.0-16.0); Lymphocytes Absolute Auto 1300 /uL (1100-4500); Lymphocytes Percent Auto 23.7 % (25-40); Mean Corpuscular HGB Conc 33.1 % (30-36); Mean Corpuscular Hemoglobin 29.7 PG (26-34); Mean Corpuscular Volume 89.8 fL (80-100); Monocytes Absolute Auto 500 /uL (0-900); Monocytes Percent Auto 9.8 % (3-14); Neutrophils Absolute Auto 3500 /uL (1500-7000); Neutrophils Percent Auto 62.3 % (50-75); Platelet Count 171 X10^3/uL (150-400); Red Blood Cell Count 4.61 X10^6/uL (4.0-5.2); Red Cell Distribution Width 14.4 % (11.6-14.8); White Blood Cell Count 5.6 X10^3/uL (4.5-11.0)
[2020-07-15 11:37] LABS: Alanine Aminotransferase 24 IU/L (<35); Albumin 4.1 g/dL (3.5-5.0); Albumin Globulin Ratio 1.3 (1.0-2.8); Alkaline Phosphatase 65 U/L (38-126); Aspartate Aminotransferase 26 IU/L (14-36); BUN Creatinine Ratio 28.6 (6-22); Bilirubin Total 0.9 mg/dL (0.2-1.3); Blood Urea Nitrogen 30 mg/dL (7-17); Calcium 10.1 mg/dL (8.4-10.2); Carbon Dioxide 30 mmol/L (22-32); Chloride 100 mmol/L (98-107); Estimated Glomerular Filt Rate 52.1 mL/min (>60); Globulin 3.1 g/dL (1.7-4.1); Glucose 117 mg/dL (80-110); HEMOLYSIS 21 (0-50); Potassium 4.2 mmol/L (3.4-5.1); Sodium 138 mmol/L (137-145); Total Protein 7.2 g/dL (6.3-8.2)
[2020-07-15 11:42] LABS: Hemoglobin A1C% w Est Avg Glu 7.5 % (4.0-6.0)
[2020-07-15 15:59] LABS: Creatinine Urine Random 86.5 mg/dL
[2020-07-15 16:05] LABS: Microalbumin Urine Random 0.7 mg/dL (0-1.6)
== END ==
PROVIDERS: PCP Internal Medicine; Referring Provider Internal Medicine; Visit Provider Internal Medicine
DX: I10 Essential (primary) hypertension (principal); N17.9 Acute kidney failure, unspecified; E78.00 Pure hypercholesterolemia, unspecified; E11.9 Type 2 diabetes mellitus without complications
CPT/HCPCS: 36415; 80053; 82043; 82570; 83036; 85025

== ENCOUNTER 2020-07-30 14:30 | Outpatient (RCR) | payer MEDICARE, OTHER, SELFPAY ==
--- NOTE | 2020-04-25 17:00 | PT.OIE ---
Current Diagnoses Muscle wasting and atrophy, not elsewhere classified, left lower leg (04/25/20) Unspecified disorder of synovium and tendon, left ankle and foot (04/25/20) Pain in unspecified foot (04/25/20) Other abnormalities of gait and mobility (04/25/20) Weakness (04/25/20) Past Medical History (Last Reviewed 03/10/19 @ 19:14 by Thao Beltre DO) Coronary artery disease (Acute) Diabetes (Acute) Hyperlipidemia (Acute) Hypertension (Acute) Visit Care Team Role Provider Type Faustino Montesinos MD Primary Care Provider Physician Specialty: Internal Medicine Address: [address] [place] [address], [id number] Email: [email or web address] Attending Provider Non-Staff Referring Provider Specialty: Podiatry Address: [address] [place] [address], [id number] Email: Physical Therapy Initial Evaluation PT-OP-A Visit Information Start: 04/25/20 08:08 Freq: Status: Active Protocol: Document 04/25/20 11:18 SAK (Rec: 04/25/20 16:55 SAK [id number]) Out-Patient Physical Therapy Visit Information Visit Information Visit Type Initial Evaluation Visit Start Time 11:15 Visit Stop Time 12:13 Total Visit Minutes 58 Visit Number 1 Evaluation Information Evaluation Date 04/25/20 Precautions Precautions LBP with radicular symptoms arthritis HTN DM falls cardiac LE neuropathy SOB PT-OP-B Current Condition Start: 04/25/20 08:08 Freq: Status: Active Protocol: Document 04/25/20 11:18 SAK (Rec: 04/25/20 12:19 SAK [id number]) Current Condition History of Current Condition Onset Date 1 year Current Complaints pain right heel. History of Current Condition Reports approximately 1 year ago walking in cardiac rehab, took a step and felt something pop in the back of her right foot, has had pain in her heel since, unable to wear shoes with back, swollen at heel. Pain is constant, worse with any pressure. Can't take walks, no exercise bike with Covid19. Has been doing foot and ankle ROM, heat, ice as recommended by her doctor. Prior treatment for compression fracture right foot requiring the use of a boot. Has cane but tries not to use. Has difficulty keeping compression socks from rolling down so she doesn't use. Foot pain complicated by severe back pain and right sciatica. Prior Treatments and Tests Patient reports x-ray at [facility] showed bone spur in her right heel. Has neuropathy in feet. 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 sewing Current Functional Impairments (Reported) Functional Limitations- ADL's painful Functional Limitations- Mobility/Gait painful PT-OP-C Subjective Start: 04/25/20 08:08 Freq: Status: Active Protocol: Document 04/25/20 11:18 [facility] (Rec: 04/25/20 16:55 [facility] [id number]) Patient Questionnaires Foot & Ankle Ability Measure- ADL and Sports FAAM-ADL Score 50 FAAM-Sport Score 35 Lower Extremity Functional Scale LEFS Score 25 OP-PT Pain Assessment Pain Assessment Grid Paper Pain Assessment Grid Completed Yes Location left heel Pain Location Details posterior heel Intensity 7 Scale Used Numeric (0 - 10) Description Aching,Shooting Frequency Constant Pain Aggravating Factors Standing,Walking Pain Alleviating Factors None PT-OP-G Mobility & Gait Start: 04/25/20 08:08 Freq: Status: Active Protocol: Document 04/25/20 11:18 [facility] (Rec: 04/25/20 16:55 [facility] [id number]) OP Gait Assessment Assistive Devices Assistive Device None Gait Deviations General Gait Pattern Antalgic Factors Limiting Gait Function Factors Limiting Gait Function Pain PT-OP-J Posture/Palpation/Skin Start: 04/25/20 08:08 Freq: Status: Active Protocol: Document 04/25/20 11:18 [facility] (Rec: 04/25/20 16:55 [facility] [id number]) Posture Evaluation Position Standing Ankle/Foot Posture (L) Pronated,(R) Pronated Foot Arch (L) Low Arch,(R) Low Arch Palpation Assessment Location posterior right heel Palpation Findings Edema,Tenderness Skin Assessment Edema Assessment right heel, retromalleolar Edema Type Non-Pitting Edema Degree 2+ Edema Appearance Puffy Circumference Measurement 4 Location calf right Measurement (Centimeters) 48.8 3 Location calf left Measurement (Centimeters) 46.6 2 Location malleoli right Measurement (Centimeters) 28.2 1 Location malleoli left Measurement (Centimeters) 28.9 PT-OP-K Range of Motion Start: 04/25/20 08:08 Freq: Status: Active Protocol: Document 04/25/20 11:18 [facility] (Rec: 04/25/20 16:55 [facility] [id number]) Ankle and Foot Goniometric Range of Motion Ankle and Foot Right Active Ankle/Foot ROM WFL Yes Left Active Ankle/Foot ROM WFL No Dorsiflexion with Knee Flexed 5 Dorsiflexion with Knee Extended 0 Ankle and Foot ROM Limitations ROM Limitations Soft Tissue Tightness,Pain PT-OP-M Strength Start: 04/25/20 08:08 Freq: Status: Active Protocol: Document 04/25/20 11:18 [facility] (Rec: 04/25/20 16:55 [facility] [id number]) Ankle/Foot Strength Ankle and Foot Manual Muscle Testing Right Dorsiflexion (L4) 5 Normal Plantarflexion (S1) 5 Normal Inversion 5 Normal Eversion (S1) 5 Normal Comments pain on left Left Dorsiflexion (L4) 4 Good Plantarflexion (S1) 4- Good- Inversion 4 Good Eversion (S1) 4 Good PT-OP-Q Treatments Start: 04/25/20 08:08 Freq: Status: Active Protocol: Document 04/25/20 11:18 [facility] (Rec: 04/25/20 16:55 [facility] [id number]) Manual Therapy Treatment Taping 1 Body Location left ankle,foot Treatment Focus inhibition left gastroc Type of Tape Kinesio Tape Skin Inspection intact Comments I strip anchored at heel proximal with no tension proximal to calf, distal to MTP's I strip across arch with 50% tension for anchoring and arch support Self-Care/Home Management Treatment Education Patient Education Home Exercise Program Other Education written handout Activities Self-Care/Home Management Activities use cane to decrease limp with gait PT-OP-R Modalities Start: 04/25/20 08:08 Freq: Status: Active Protocol: Document 04/25/20 11:18 [facility] (Rec: 04/25/20 16:55 [facility] [id number]) Hot Pack/Cold Pack Treatment Cold Pack Location left heel Patient Position Sidelying Treatment Duration (minutes) 10 Ultrasound Therapy Treatment left heel Patient Position Sidelying Coupling Medium Ultrasound Gel Applicator Size (cm2) 2 Mode Setting Pulsed Duty Cycle 50% Intensity Setting (w/cm2) 1.0 Comments heel, retromalleolar PT-OP-T Assessment and Plan Start: 04/25/20 08:08 Freq: Status: Active Protocol: Document 04/25/20 11:18 [facility] (Rec: 04/25/20 16:55 [facility] [id number]) Physical Therapy Assessment Rehab Potential Rehabilitation Potential Fair Evaluation Complexity Number of Personal Factors/Comorbidities 3 or More Number of Body Systems Impaired 3 Clinical Presentation at Evaluation Evolving Impairments Impairments Edema,Gait,Pain,Strength Goals Four Impairment weakness left calf with atrophy Joint Machine Operator Goal (LTG) Improve strength left ankle motions to at least 4+/5, with no greater than 1 cm difference in muscle bulk in calves. LTG Duration 06/24/20 Three Impairment antalgic gait [facility]ci Goal (LTG) patient to resume ability to take walks with minimal to no pain or limp, using least restrictive assistive device as needed LTG Duration 06/24/20 Two Impairment edema [facility]ci Goal (LTG) Minimal to no edema left heel and malleolar region LTG Duration 06/24/20 One Impairment pain Joint Machine Operator Goal (LTG) Decrease pain to no greater than 2/10 left heel LTG Duration 06/24/20 Assessment Summary Assessment Patient presents with function -limiting pain in her left heel s/p injury sustained while walking on treadmill. x -ray showed bone spur. Signs and symptoms indicative of possible achilles involvement. Feel she would benefit from PT to decrease the pain and swelling, improve her strength and gait. Complicating her heel injury is her LBP with radicular symptoms. Patient activity level is very low at this time. Feel she would benefit highly from aquatic PT but at this time pool is closed due to pandemic. Physical Therapy Plan Frequency and Duration Frequency of Treatment 2x/Week Duration of Treatment 8 wks Plan of Care Start Date 04/25/20 Plan of Care End Date 06/24/20 Therapeutic Interventions Therapeutic Interventions Aquatic Therapy,Gait Training, Home Exercise Program,Manual Therapy,Neuromuscular Re- education,Patient/Caregiver Education,Self-Care/Home Management,Soft Tissue Mobilization,Taping, Therapeutic Activities, Therapeutic Exercises Modalities Cold Pack/Ice Massage, Iontophoresis,Ultrasound Next Visit Focus/Plan Next Note Type Treatment Note Next Visit Plan Begin with gentle recumbant elliptical for ROM and strengthening, review achilles stretch and ROM ex. Ultrasound, kinesiotape (if tolerated) possibly to include edema reduction technique. Iontophoresis if approved.
--- NOTE | 2020-04-25 17:00 | PT.OPPOC ---
Physical, Occupational & Speech Therapy At [facility] Current Diagnoses Muscle wasting and atrophy, not elsewhere classified, left lower leg (04/25/20) Unspecified disorder of synovium and tendon, left ankle and foot (04/25/20) Pain in unspecified foot (04/25/20) Other abnormalities of gait and mobility (04/25/20) Weakness (04/25/20) Visit Care Team Role Provider Type Faustino Montesinos MD Primary Care Provider Physician Specialty: Internal Medicine Address: [address] [place] [address], [id number] Email: [email or web address] Phil Dang DPM Attending Provider Non-Staff Referring Provider Specialty: Podiatry Address: [address] [place] [address], [id number] Email: Plan Of Care PT-OP-T Assessment and Plan Start: 04/25/20 08:08 Freq: Status: Active Protocol: Document 04/25/20 11:18 SAK (Rec: 04/25/20 16:55 [facility] [id number]) Physical Therapy Assessment Rehab Potential Rehabilitation Potential Fair Evaluation Complexity Number of Personal Factors/Comorbidities 3 or More Number of Body Systems Impaired 3 Clinical Presentation at Evaluation Evolving Impairments Impairments Edema,Gait,Pain,Strength Goals Four Impairment weakness left calf with atrophy Prison Goal (LTG) Improve strength left ankle motions to at least 4+/5, with no greater than 1 cm difference in muscle bulk in calves. LTG Duration 06/24/20 Three Impairment antalgic gait Prison Goal (LTG) patient to resume ability to take walks with minimal to no pain or limp, using least restrictive assistive device as needed LTG Duration 06/24/20 Two Impairment edema Global Category Manager Goal (LTG) Minimal to no edema left heel and malleolar region LTG Duration 06/24/20 One Impairment pain Global Category Manager Goal (LTG) Decrease pain to no greater than 2/10 left heel LTG Duration 06/24/20 Assessment Summary Assessment Patient presents with function -limiting pain in her left heel s/p injury sustained while walking on treadmill. x -ray showed bone spur. Signs and symptoms indicative of possible achilles involvement. Feel she would benefit from PT to decrease the pain and swelling, improve her strength and gait. Complicating her heel injury is her LBP with radicular symptoms. Patient activity level is very low at this time. Feel she would benefit highly from aquatic PT but at this time pool is closed due to pandemic. Physical Therapy Plan Frequency and Duration Frequency of Treatment 2x/Week Duration of Treatment 8 wks Plan of Care Start Date 04/25/20 Plan of Care End Date 06/24/20 Therapeutic Interventions Therapeutic Interventions Aquatic Therapy,Gait Training, Home Exercise Program,Manual Therapy,Neuromuscular Re- education,Patient/Caregiver Education,Self-Care/Home Management,Soft Tissue Mobilization,Taping, Therapeutic Activities, Therapeutic Exercises Modalities Cold Pack/Ice Massage, Iontophoresis,Ultrasound Next Visit Focus/Plan Next Note Type Treatment Note Next Visit Plan Begin with gentle recumbant elliptical for ROM and strengthening, review achilles stretch and ROM ex. Ultrasound, kinesiotape (if tolerated) possibly to include edema reduction technique. Iontophoresis if approved. Plan of Care Dates Plan of Care Start Date 04/25/20 Plan of Care End Date 06/24/20 Electronically Signed by: Macey Silvestre, PT 04/25/20 3520 Please Sign and Return: I have reviewed this Plan of Care and certify that the skilled therapy services above are required to meet the patient?s needs. Physician Signature Date Printed Name and Credentials Clinical Instructor Signature Printed Name and Credentials
--- NOTE | 2020-04-29 16:16 | PT.OTN ---
Current Diagnoses Muscle wasting and atrophy, not elsewhere classified, left lower leg (04/29/20) Unspecified disorder of synovium and tendon, left ankle and foot (04/29/20) Pain in unspecified foot (04/29/20) Other abnormalities of gait and mobility (04/29/20) Weakness (04/29/20) Physical Therapy Treatment Note PT-OP-A Visit Information Start: 04/25/20 08:08 Freq: Status: Active Protocol: Document 04/29/20 15:24 [facility] (Rec: 04/29/20 16:15 [facility] [id number]) Out-Patient Physical Therapy Visit Information Visit Information Visit Type Treatment Note Visit Start Time 15:22 Visit Stop Time 16:15 Total Visit Minutes 53 Visit Number 2 Number of CROP PEST CONTROL SPECIALIST Visits 0 PT-OP-B Current Condition Start: 04/25/20 08:08 Freq: Status: Active Protocol: Document 04/25/20 11:18 SAK (Rec: 04/25/20 12:19 SAK [id number]) Current Condition History of Current Condition Onset Date 1 year Current Complaints pain right heel. History of Current Condition Reports approximately 1 year ago walking in cardiac rehab, took a step and felt something pop in the back of her right foot, has had pain in her heel since, unable to wear shoes with back, swollen at heel. Pain is constant, worse with any pressure. Can't take walks, no exercise bike with Covid19. Has been doing foot and ankle ROM, heat, ice as recommended by her doctor. Prior treatment for compression fracture right foot requiring the use of a boot. Has cane but tries not to use. Has difficulty keeping compression socks from rolling down so she doesn't use. Foot pain complicated by severe back pain and right sciatica. Prior Treatments and Tests Patient reports x-ray at [facility] showed bone spur in her right heel. Has neuropathy in feet. 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 sewing Current Functional Impairments (Reported) Functional Limitations- ADL's painful Functional Limitations- Mobility/Gait painful PT-OP-C Subjective Start: 04/25/20 08:08 Freq: Status: Active Protocol: Document 04/29/20 15:24 [facility] (Rec: 04/29/20 16:15 [facility] [id number]) OP-PT Subjective Patient Comments Patient Comments Feels like US and tape made a big difference PT-OP-G Mobility & Gait Start: 04/25/20 08:08 Freq: Status: Active Protocol: Document 04/25/20 11:18 SAK (Rec: 04/25/20 16:55 [facility] [id number]) OP Gait Assessment Assistive Devices Assistive Device None Gait Deviations General Gait Pattern Antalgic Factors Limiting Gait Function Factors Limiting Gait Function Pain PT-OP-J Posture/Palpation/Skin Start: 04/25/20 08:08 Freq: Status: Active Protocol: Document 04/25/20 11:18 SAK (Rec: 04/25/20 16:55 [facility] [id number]) Posture Evaluation Position Standing Ankle/Foot Posture (L) Pronated,(R) Pronated Foot Arch (L) Low Arch,(R) Low Arch Palpation Assessment Location posterior right heel Palpation Findings Edema,Tenderness Skin Assessment Edema Assessment right heel, retromalleolar Edema Type Non-Pitting Edema Degree 2+ Edema Appearance Puffy Circumference Measurement 4 Location calf right Measurement (Centimeters) 48.8 3 Location calf left Measurement (Centimeters) 46.6 2 Location malleoli right Measurement (Centimeters) 28.2 1 Location malleoli left Measurement (Centimeters) 28.9 PT-OP-K Range of Motion Start: 04/25/20 08:08 Freq: Status: Active Protocol: Document 04/25/20 11:18 SAK (Rec: 04/25/20 16:55 SAK [id number]) Ankle and Foot Goniometric Range of Motion Ankle and Foot Right Active Ankle/Foot ROM WFL Yes Left Active Ankle/Foot ROM WFL No Dorsiflexion with Knee Flexed 5 Dorsiflexion with Knee Extended 0 Ankle and Foot ROM Limitations ROM Limitations Soft Tissue Tightness,Pain PT-OP-M Strength Start: 04/25/20 08:08 Freq: Status: Active Protocol: Document 04/25/20 11:18 SAK (Rec: 04/25/20 16:55 [facility] [id number]) Ankle/Foot Strength Ankle and Foot Manual Muscle Testing Right Dorsiflexion (L4) 5 Normal Plantarflexion (S1) 5 Normal Inversion 5 Normal Eversion (S1) 5 Normal Comments pain on left Left Dorsiflexion (L4) 4 Good Plantarflexion (S1) 4- Good- Inversion 4 Good Eversion (S1) 4 Good PT-OP-Q Treatments Start: 04/25/20 08:08 Freq: Status: Active Protocol: Document 04/29/20 15:24 [facility] (Rec: 04/29/20 16:15 [facility] [id number]) Cardio Equipment Recumbent Elliptical (De Correspondent) Duration (Minutes) 5 Resistance 3 Seat Position 6 Therapeutic Exercises Supine Exercises Pelvic tilt Supine Exercise Name w/glute Side bilateral Reps/Minutes 10 Sitting Exercises TAbd Reps/Minutes 10 hip add Sitting Exercise Name pillow Side bilateral Reps/Minutes 15 hip abd Side bilateral Equipment Used L2 Reps/Minutes 15 calf stretch Sitting Exercise Name towel Side bilateral Reps/Minutes 30 sec Manual Therapy Treatment Soft Tissue Mobilization calf Body Location L lat &med borders & achilles Mobilization Type Rolling Intensity/Depth Moderate Body Position Hooklying Taping 1 Body Location left ankle,foot Treatment Focus inhibition left gastroc Type of Tape Kinesio Tape Skin Inspection intact Comments I strip anchored at heel proximal with no tension proximal to calf, distal to MTP's I strip across arch with 50% tension for anchoring and arch support PT-OP-R Modalities Start: 04/25/20 08:08 Freq: Status: Active Protocol: Document 04/29/20 15:24 [facility] (Rec: 04/29/20 16:15 [facility] [id number]) Hot Pack/Cold Pack Treatment Cold Pack Location left heel Patient Position Sidelying Treatment Duration (minutes) 10 Ultrasound Therapy Treatment left heel Patient Position Sidelying Coupling Medium Ultrasound Gel Applicator Size (cm2) 2 Mode Setting Pulsed Duty Cycle 50% Intensity Setting (w/cm2) 1.0 Comments heel, retromalleolar PT-OP-T Assessment and Plan Start: 04/25/20 08:08 Freq: Status: Active Protocol: Document 04/29/20 15:24 [facility] (Rec: 04/29/20 16:15 [facility] [id number]) Physical Therapy Assessment Goals Four Impairment weakness left calf with atrophy Longterm Goal (LTG) Improve strength left ankle motions to at least 4+/5, with no greater than 1 cm difference in muscle bulk in calves. LTG Duration 06/24/20 Three Impairment antalgic gait Escalator Attendant Goal (LTG) patient to resume ability to take walks with minimal to no pain or limp, using least restrictive assistive device as needed LTG Duration 06/24/20 Two Impairment edema Longterm Goal (LTG) Minimal to no edema left heel and malleolar region LTG Duration 06/24/20 One Impairment pain Longterm Goal (LTG) Decrease pain to no greater than 2/10 left heel LTG Duration 06/24/20 Assessment Summary Assessment Pt did well with review of exercises and addition of PPT. She did not require a lot of cueing with exercises. She is very tender to touch at medial heel and feels improvement with ice, US and taping. Physical Therapy Plan Frequency and Duration Frequency of Treatment 2x/Week Duration of Treatment 8 wks Plan of Care Start Date 04/25/20 Plan of Care End Date 06/24/20 Next Visit Focus/Plan Next Note Type Treatment Note Next Visit Plan US, KT tape, review and progress exercises as needed
--- NOTE | 2020-05-02 18:23 | PT.OTN ---
Current Diagnoses Muscle wasting and atrophy, not elsewhere classified, left lower leg (05/02/20) Unspecified disorder of synovium and tendon, left ankle and foot (05/02/20) Pain in unspecified foot (05/02/20) Other abnormalities of gait and mobility (05/02/20) Weakness (05/02/20) Physical Therapy Treatment Note PT-OP-A Visit Information Start: 04/25/20 08:08 Freq: Status: Active Protocol: Document 05/02/20 18:14 [facility] (Rec: 05/02/20 18:22 [facility] [id number]) Out-Patient Physical Therapy Visit Information Visit Information Visit Type Treatment Note Visit Start Time 16:50 Visit Stop Time 17:40 Total Visit Minutes 50 Visit Number 3 Number of DISTRICT PLANT ENGINEER Visits 0 PT-OP-B Current Condition Start: 04/25/20 08:08 Freq: Status: Active Protocol: Document 04/25/20 11:18 SAK (Rec: 04/25/20 12:19 SAK [id number]) Current Condition History of Current Condition Onset Date 1 year Current Complaints pain right heel. History of Current Condition Reports approximately 1 year ago walking in cardiac rehab, took a step and felt something pop in the back of her right foot, has had pain in her heel since, unable to wear shoes with back, swollen at heel. Pain is constant, worse with any pressure. Can't take walks, no exercise bike with Covid19. Has been doing foot and ankle ROM, heat, ice as recommended by her doctor. Prior treatment for compression fracture right foot requiring the use of a boot. Has cane but tries not to use. Has difficulty keeping compression socks from rolling down so she doesn't use. Foot pain complicated by severe back pain and right sciatica. Prior Treatments and Tests Patient reports x-ray at [facility] showed bone spur in her right heel. Has neuropathy in feet. 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 KT tape and US seem to help. PT-OP-G Mobility & Gait Start: 04/25/20 08:08 Freq: Status: Active Protocol: Document 04/25/20 11:18 SAK (Rec: 04/25/20 16:55 SAK [id number]) OP Gait Assessment Assistive Devices Assistive Device None Gait Deviations General Gait Pattern Antalgic Factors Limiting Gait Function Factors Limiting Gait Function Pain PT-OP-J Posture/Palpation/Skin Start: 04/25/20 08:08 Freq: Status: Active Protocol: Document 04/25/20 11:18 SAK (Rec: 04/25/20 16:55 SAK [id number]) Posture Evaluation Position Standing Ankle/Foot Posture (L) Pronated,(R) Pronated Foot Arch (L) Low Arch,(R) Low Arch Palpation Assessment Location posterior right heel Palpation Findings Edema,Tenderness Skin Assessment Edema Assessment right heel, retromalleolar Edema Type Non-Pitting Edema Degree 2+ Edema Appearance Puffy Circumference Measurement 4 Location calf right Measurement (Centimeters) 48.8 3 Location calf left Measurement (Centimeters) 46.6 2 Location malleoli right Measurement (Centimeters) 28.2 1 Location malleoli left Measurement (Centimeters) 28.9 PT-OP-K Range of Motion Start: 04/25/20 08:08 Freq: Status: Active Protocol: Document 04/25/20 11:18 SAK (Rec: 04/25/20 16:55 SAK [id number]) Ankle and Foot Goniometric Range of Motion Ankle and Foot Right Active Ankle/Foot ROM WFL Yes Left Active Ankle/Foot ROM WFL No Dorsiflexion with Knee Flexed 5 Dorsiflexion with Knee Extended 0 Ankle and Foot ROM Limitations ROM Limitations Soft Tissue Tightness,Pain PT-OP-M Strength Start: 04/25/20 08:08 Freq: Status: Active Protocol: Document 04/25/20 11:18 [facility] (Rec: 04/25/20 16:55 [facility] [id number]) Ankle/Foot Strength Ankle and Foot Manual Muscle Testing Right Dorsiflexion (L4) 5 Normal Plantarflexion (S1) 5 Normal Inversion 5 Normal Eversion (S1) 5 Normal Comments pain on left Left Dorsiflexion (L4) 4 Good Plantarflexion (S1) 4- Good- Inversion 4 Good Eversion (S1) 4 Good PT-OP-Q Treatments Start: 04/25/20 08:08 Freq: Status: Active Protocol: Document 05/02/20 18:14 (Rec: 05/02/20 18:22 [id number]) Therapeutic Exercises Supine Exercises Pelvic tilt Supine Exercise Name w/glute Side bilateral Reps/Minutes 10 Sitting Exercises calf stretch Sitting Exercise Name towel Side bilateral Reps/Minutes 30 sec Standing Exercises RON board Standing Exercise Name ankle strategy Side bilateral Reps/Minutes 10 sec x 4 Manual Therapy Treatment Soft Tissue Mobilization calf Body Location L lat &med borders & achilles Mobilization Type Rolling Intensity/Depth Moderate Body Position Hooklying Taping 1 Body Location left ankle,foot Treatment Focus inhibition left gastroc Type of Tape Kinesio Tape Skin Inspection intact Comments I strip anchored at heel proximal with no tension proximal to calf, distal to MTP's I strip across arch with 50% tension for anchoring and arch support Neuro Re-Education Treatment Movement Re-Education Movement Re-education Activities ankle rocking motion in staggered stance to facilitate initial heel contact and heel of at preswing. PT-OP-R Modalities Start: 04/25/20 08:08 Freq: Status: Active Protocol: Document 05/02/20 18:14 (Rec: 05/02/20 18:22 [id number]) Ultrasound Therapy Treatment left heel Patient Position Sitting Coupling Medium Ultrasound Gel Applicator Size (cm2) 2 Mode Setting Pulsed Duty Cycle 50% Intensity Setting (w/cm2) 1.0 Comments heel, retromalleolar PT-OP-T Assessment and Plan Start: 04/25/20 08:08 Freq: Status: Active Protocol: Document 05/02/20 18:14 (Rec: 05/02/20 18:22 [id number]) Physical Therapy Assessment Goals Four Impairment weakness left calf with atrophy [facility] Goal (LTG) Improve strength left ankle motions to at least 4+/5, with no greater than 1 cm difference in muscle bulk in calves. LTG Duration 06/24/20 Three Impairment antalgic gait [facility] Goal (LTG) patient to resume ability to take walks with minimal to no pain or limp, using least restrictive assistive device as needed LTG Duration 06/24/20 Two Impairment edema Delinquent Tax Collector Goal (LTG) Minimal to no edema left heel and malleolar region LTG Duration 06/24/20 One Impairment pain [facility] Goal (LTG) Decrease pain to no greater than 2/10 left heel LTG Duration 06/24/20 Assessment Summary Assessment noticed pt has very limited big toe extension and L ankle DF. Spent time focused on ankle rocking motion with initial heel contact and preswing pattern. Pt showed good understanding but did state her heel is sensitive to movements. Physical Therapy Plan Next Visit Focus/Plan Next Note Type Treatment Note Next Visit Plan US, NAT tape, review and progress exercises as needed
--- NOTE | 2020-05-06 18:39 | PT.OTN ---
Current Diagnoses Muscle wasting and atrophy, not elsewhere classified, left lower leg (05/06/20) Unspecified disorder of synovium and tendon, left ankle and foot (05/06/20) Pain in unspecified foot (05/06/20) Other abnormalities of gait and mobility (05/06/20) Weakness (05/06/20) Physical Therapy Treatment Note PT-OP-A Visit Information Start: 04/25/20 08:08 Freq: Status: Active Protocol: Document 05/06/20 18:30 [facility] (Rec: 05/06/20 18:39 [facility] [id number]) Out-Patient Physical Therapy Visit Information Visit Information Visit Type Treatment Note Visit Start Time 16:00 Visit Stop Time 16:45 Total Visit Minutes 45 Visit Number 4 Number of BILINGUAL TEACHER Visits 0 PT-OP-B Current Condition Start: 04/25/20 08:08 Freq: Status: Active Protocol: Document 04/25/20 11:18 [facility] (Rec: 04/25/20 12:19 SAK [id number]) Current Condition History of Current Condition Onset Date 1 year Current Complaints pain right heel. History of Current Condition Reports approximately 1 year ago walking in cardiac rehab, took a step and felt something pop in the back of her right foot, has had pain in her heel since, unable to wear shoes with back, swollen at heel. Pain is constant, worse with any pressure. Can't take walks, no exercise bike with Covid19. Has been doing foot and ankle ROM, heat, ice as recommended by her doctor. Prior treatment for compression fracture right foot requiring the use of a boot. Has cane but tries not to use. Has difficulty keeping compression socks from rolling down so she doesn't use. Foot pain complicated by severe back pain and right sciatica. Prior Treatments and Tests Patient reports x-ray at [facility] showed bone spur in her right heel. Has neuropathy in feet. 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 R leg has been very painful PT-OP-G Mobility & Gait Start: 04/25/20 08:08 Freq: Status: Active Protocol: Document 04/25/20 11:18 [facility]AK (Rec: 04/25/20 16:55 [facility] [id number]) OP Gait Assessment Assistive Devices Assistive Device None Gait Deviations General Gait Pattern Antalgic Factors Limiting Gait Function Factors Limiting Gait Function Pain PT-OP-J Posture/Palpation/Skin Start: 04/25/20 08:08 Freq: Status: Active Protocol: Document 04/25/20 11:18 [facility]AK (Rec: 04/25/20 16:55 [facility] [id number]) Posture Evaluation Position Standing Ankle/Foot Posture (L) Pronated,(R) Pronated Foot Arch (L) Low Arch,(R) Low Arch Palpation Assessment Location posterior right heel Palpation Findings Edema,Tenderness Skin Assessment Edema Assessment right heel, retromalleolar Edema Type Non-Pitting Edema Degree 2+ Edema Appearance Puffy Circumference Measurement 4 Location calf right Measurement (Centimeters) 48.8 3 Location calf left Measurement (Centimeters) 46.6 2 Location malleoli right Measurement (Centimeters) 28.2 1 Location malleoli left Measurement (Centimeters) 28.9 PT-OP-K Range of Motion Start: 04/25/20 08:08 Freq: Status: Active Protocol: Document 04/25/20 11:18 [facility]AK (Rec: 04/25/20 16:55 [facility] [id number]) Ankle and Foot Goniometric Range of Motion Ankle and Foot Right Active Ankle/Foot ROM WFL Yes Left Active Ankle/Foot ROM WFL No Dorsiflexion with Knee Flexed 5 Dorsiflexion with Knee Extended 0 Ankle and Foot ROM Limitations ROM Limitations Soft Tissue Tightness,Pain PT-OP-M Strength Start: 04/25/20 08:08 Freq: Status: Active Protocol: Document 04/25/20 11:18 [facility] (Rec: 04/25/20 16:55 [facility] [id number]) Ankle/Foot Strength Ankle and Foot Manual Muscle Testing Right Dorsiflexion (L4) 5 Normal Plantarflexion (S1) 5 Normal Inversion 5 Normal Eversion (S1) 5 Normal Comments pain on left Left Dorsiflexion (L4) 4 Good Plantarflexion (S1) 4- Good- Inversion 4 Good Eversion (S1) 4 Good PT-OP-Q Treatments Start: 04/25/20 08:08 Freq: Status: Active Protocol: Document 05/06/20 18:30 [facility] (Rec: 05/06/20 18:39 [facility] [id number]) Cardio Equipment Recumbent Elliptical (SystemsNet) Duration (Minutes) 5 Resistance 3 Seat Position 6 Therapeutic Exercises Sitting Exercises intrinsic Sitting Exercise Name toe ext, abd then flex to floor then relax Side left Reps/Minutes 10 PF/DF Sitting Exercise Name PF w/toe ext & DF w/toe flex Reps/Minutes 3 Comments painful so stopped scrunch Sitting Exercise Name attempted towel scruncha nd picking up marbles-unable Comments worked on toe flex on towel calf stretch Sitting Exercise Name towel Side bilateral Reps/Minutes 30 sec Manual Therapy Treatment Soft Tissue Mobilization plantar fascia Body Location L Mobilization Type Rolling Intensity/Depth Moderate Taping 1 Body Location left ankle,foot Treatment Focus inhibition left gastroc Type of Tape Kinesio Tape Skin Inspection intact Comments I strip anchored at heel proximal with no tension proximal to calf, distal to MTP's I strip across arch with 50% tension for anchoring and arch support Neuro Re-Education Treatment Movement Re-Education Movement Re-education Activities ankle rocking motion in staggered stance to facilitate initial heel contact and heel of at preswing. -stopped d/t pain PT-OP-R Modalities Start: 04/25/20 08:08 Freq: Status: Active Protocol: Document 05/06/20 18:30 [facility] (Rec: 05/06/20 18:39 [facility] [id number]) Ultrasound Therapy Treatment left heel Patient Position Sidelying Coupling Medium Ultrasound Gel Applicator Size (cm2) 2 Mode Setting Pulsed Duty Cycle 50% Intensity Setting (w/cm2) 1.0 Comments heel, retromalleolar PT-OP-T Assessment and Plan Start: 04/25/20 08:08 Freq: Status: Active Protocol: Document 05/06/20 18:30 [facility] (Rec: 05/06/20 18:39 [facility] [id number]) Physical Therapy Assessment Goals Four Impairment weakness left calf with atrophy Half-Way Goal (LTG) Improve strength left ankle motions to at least 4+/5, with no greater than 1 cm difference in muscle bulk in calves. LTG Duration 06/24/20 Three Impairment antalgic gait Mattress Filling Machine Tender Goal (LTG) patient to resume ability to take walks with minimal to no pain or limp, using least restrictive assistive device as needed LTG Duration 06/24/20 Two Impairment edema Mattress Filling Machine Tender Goal (LTG) Minimal to no edema left heel and malleolar region LTG Duration 06/24/20 One Impairment pain Half-Way Goal (LTG) Decrease pain to no greater than 2/10 left heel LTG Duration 06/24/20 Assessment Summary Assessment Pt edcuated on staying in comfortable ranges with all exercises. Stopped standing exercise for gait d/t pain during performance. Pt had significant difficultyw ith use of foot intrisics. Physical Therapy Plan Frequency and Duration Frequency of Treatment 2x/Week Duration of Treatment 8 wks Plan of Care Start Date 04/25/20 Plan of Care End Date 06/24/20 Next Visit Focus/Plan Next Note Type Treatment Note Next Visit Plan US, NAT tape, review and progress exercises as needed, work on foot intrinsics
--- NOTE | 2020-05-09 13:42 | PT.OTN ---
Current Diagnoses Muscle wasting and atrophy, not elsewhere classified, left lower leg (05/09/20) Unspecified disorder of synovium and tendon, left ankle and foot (05/09/20) Pain in unspecified foot (05/09/20) Other abnormalities of gait and mobility (05/09/20) Weakness (05/09/20) Physical Therapy Treatment Note PT-OP-A Visit Information Start: 04/25/20 08:08 Freq: Status: Active Protocol: Document 05/09/20 13:36 [facility] (Rec: 05/09/20 13:42 [facility] [email or web address]) Out-Patient Physical Therapy Visit Information Visit Information Visit Type Treatment Note Visit Start Time 10:30 Visit Stop Time 11:14 Total Visit Minutes 44 Visit Number 5 Number of REGULATORY SUBMISSIONS SPECIALIST Visits 0 PT-OP-B Current Condition Start: 04/25/20 08:08 Freq: Status: Active Protocol: Document 04/25/20 11:18 [facility] (Rec: 04/25/20 12:19 SAK [id number]) Current Condition History of Current Condition Onset Date 1 year Current Complaints pain right heel. History of Current Condition Reports approximately 1 year ago walking in cardiac rehab, took a step and felt something pop in the back of her right foot, has had pain in her heel since, unable to wear shoes with back, swollen at heel. Pain is constant, worse with any pressure. Can't take walks, no exercise bike with Covid19. Has been doing foot and ankle ROM, heat, ice as recommended by her doctor. Prior treatment for compression fracture right foot requiring the use of a boot. Has cane but tries not to use. Has difficulty keeping compression socks from rolling down so she doesn't use. Foot pain complicated by severe back pain and right sciatica. Prior Treatments and Tests Patient reports x-ray at [facility] showed bone spur in her right heel. Has neuropathy in feet. 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 PT-OP-G Mobility & Gait Start: 04/25/20 08:08 Freq: Status: Active Protocol: Document 04/25/20 11:18 [facility]AK (Rec: 04/25/20 16:55 SAK [id number]) OP Gait Assessment Assistive Devices Assistive Device None Gait Deviations General Gait Pattern Antalgic Factors Limiting Gait Function Factors Limiting Gait Function Pain PT-OP-J Posture/Palpation/Skin Start: 04/25/20 08:08 Freq: Status: Active Protocol: Document 04/25/20 11:18 [facility] (Rec: 04/25/20 16:55 [facility] [id number]) Posture Evaluation Position Standing Ankle/Foot Posture (L) Pronated,(R) Pronated Foot Arch (L) Low Arch,(R) Low Arch Palpation Assessment Location posterior right heel Palpation Findings Edema,Tenderness Skin Assessment Edema Assessment right heel, retromalleolar Edema Type Non-Pitting Edema Degree 2+ Edema Appearance Puffy Circumference Measurement 4 Location calf right Measurement (Centimeters) 48.8 3 Location calf left Measurement (Centimeters) 46.6 2 Location malleoli right Measurement (Centimeters) 28.2 1 Location malleoli left Measurement (Centimeters) 28.9 PT-OP-K Range of Motion Start: 04/25/20 08:08 Freq: Status: Active Protocol: Document 04/25/20 11:18 [facility]AK (Rec: 04/25/20 16:55 SAK [id number]) Ankle and Foot Goniometric Range of Motion Ankle and Foot Right Active Ankle/Foot ROM WFL Yes Left Active Ankle/Foot ROM WFL No Dorsiflexion with Knee Flexed 5 Dorsiflexion with Knee Extended 0 Ankle and Foot ROM Limitations ROM Limitations Soft Tissue Tightness,Pain PT-OP-M Strength Start: 04/25/20 08:08 Freq: Status: Active Protocol: Document 04/25/20 11:18 [facility]AK (Rec: 04/25/20 16:55 [facility] [id number]) Ankle/Foot Strength Ankle and Foot Manual Muscle Testing Right Dorsiflexion (L4) 5 Normal Plantarflexion (S1) 5 Normal Inversion 5 Normal Eversion (S1) 5 Normal Comments pain on left Left Dorsiflexion (L4) 4 Good Plantarflexion (S1) 4- Good- Inversion 4 Good Eversion (S1) 4 Good PT-OP-Q Treatments Start: 04/25/20 08:08 Freq: Status: Active Protocol: Document 05/09/20 13:36 [facility] (Rec: 05/09/20 13:42 [facility] [email or web address]) Cardio Equipment Recumbent Stepper (Sci-Fit) Duration (Minutes) 7 Resistance 3 Therapeutic Exercises Sitting Exercises big toe extension Sitting Exercise Name PT assisted Side left Reps/Minutes 8 mins Comments with ankle neutral progressed to slight DF ankle circles Side bilateral Reps/Minutes 8 x 4 Comments cues on big toe DF during ankle DF, intrinsic Sitting Exercise Name toe ext, abd then flex to floor then relax Side left Reps/Minutes 10 calf stretch Sitting Exercise Name towel Side bilateral Reps/Minutes 30 sec Standing Exercises ankle board Side bilateral Reps/Minutes 8 mins Comments to facilitate ankle strategy and DF/PF Manual Therapy Treatment Soft Tissue Mobilization plantar fascia Body Location L Mobilization Type Rolling Intensity/Depth Moderate calf Body Location L lat &med borders & achilles Mobilization Type Rolling Intensity/Depth Moderate Body Position Hooklying PT-OP-R Modalities Start: 04/25/20 08:08 Freq: Status: Active Protocol: Document 05/06/20 18:30 [facility] (Rec: 05/06/20 18:39 [facility] [id number]) Ultrasound Therapy Treatment left heel Patient Position Sidelying Coupling Medium Ultrasound Gel Applicator Size (cm2) 2 Mode Setting Pulsed Duty Cycle 50% Intensity Setting (w/cm2) 1.0 Comments heel, retromalleolar PT-OP-T Assessment and Plan Start: 04/25/20 08:08 Freq: Status: Active Protocol: Document 05/09/20 13:36 [facility] (Rec: 05/09/20 13:42 [facility] [email or web address]) Physical Therapy Assessment Goals Four Impairment weakness left calf with atrophy Residential Goal (LTG) Improve strength left ankle motions to at least 4+/5, with no greater than 1 cm difference in muscle bulk in calves. LTG Duration 7/27/20 Three Impairment antalgic gait Residential Goal (LTG) patient to resume ability to take walks with minimal to no pain or limp, using least restrictive assistive device as needed LTG Duration 06/24/20 Two Impairment edema Aviation Tactical Readiness Officer Goal (LTG) Minimal to no edema left heel and malleolar region LTG Duration 06/24/20 One Impairment pain Aviation Tactical Readiness Officer Goal (LTG) Decrease pain to no greater than 2/10 left heel LTG Duration 06/24/20 Assessment Summary Assessment Treatment session focused on big toe extension and ankle strategy at ankle board today. Pt reports improved pain and ROM after who is able to facilitate heel strike and weight acceptance during gait.
--- NOTE | 2020-05-14 16:35 | PT.OTN ---
Current Diagnoses Muscle wasting and atrophy, not elsewhere classified, left lower leg (05/14/20) Unspecified disorder of synovium and tendon, left ankle and foot (05/14/20) Pain in unspecified foot (05/14/20) Other abnormalities of gait and mobility (05/14/20) Weakness (05/14/20) Physical Therapy Treatment Note PT-OP-A Visit Information Start: 04/25/20 08:08 Freq: Status: Active Protocol: Document 05/14/20 15:20 [facility] (Rec: 05/14/20 16:34 [facility]AK [id number]) Out-Patient Physical Therapy Visit Information Visit Information Visit Type Treatment Note Visit Start Time 10:30 Visit Stop Time 11:14 Total Visit Minutes 54 Visit Number 6 Number of INFRASTRUCTURE TECH Visits 0 PT-OP-B Current Condition Start: 04/25/20 08:08 Freq: Status: Active Protocol: Document 04/25/20 11:18 [facility] (Rec: 04/25/20 12:19 [facility]AK [id number]) Current Condition History of Current Condition Onset Date 1 year Current Complaints pain right heel. History of Current Condition Reports approximately 1 year ago walking in cardiac rehab, took a step and felt something pop in the back of her right foot, has had pain in her heel since, unable to wear shoes with back, swollen at heel. Pain is constant, worse with any pressure. Can't take walks, no exercise bike with Covid19. Has been doing foot and ankle ROM, heat, ice as recommended by her doctor. Prior treatment for compression fracture right foot requiring the use of a boot. Has cane but tries not to use. Has difficulty keeping compression socks from rolling down so she doesn't use. Foot pain complicated by severe back pain and right sciatica. Prior Treatments and Tests Patient reports x-ray at [facility] showed bone spur in her right heel. Has neuropathy in feet. 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 Forgot to ice. Feels tape very helpful. PT-OP-G Mobility & Gait Start: 04/25/20 08:08 Freq: Status: Active Protocol: Document 04/25/20 11:18 [facility] (Rec: 04/25/20 16:55 [facility] [id number]) OP Gait Assessment Assistive Devices Assistive Device None Gait Deviations General Gait Pattern Antalgic Factors Limiting Gait Function Factors Limiting Gait Function Pain PT-OP-J Posture/Palpation/Skin Start: 04/25/20 08:08 Freq: Status: Active Protocol: Document 04/25/20 11:18 [facility] (Rec: 04/25/20 16:55 [facility] [id number]) Posture Evaluation Position Standing Ankle/Foot Posture (L) Pronated,(R) Pronated Foot Arch (L) Low Arch,(R) Low Arch Palpation Assessment Location posterior right heel Palpation Findings Edema,Tenderness Skin Assessment Edema Assessment right heel, retromalleolar Edema Type Non-Pitting Edema Degree 2+ Edema Appearance Puffy Circumference Measurement 4 Location calf right Measurement (Centimeters) 48.8 3 Location calf left Measurement (Centimeters) 46.6 2 Location malleoli right Measurement (Centimeters) 28.2 1 Location malleoli left Measurement (Centimeters) 28.9 PT-OP-K Range of Motion Start: 04/25/20 08:08 Freq: Status: Active Protocol: Document 04/25/20 11:18 [facility] (Rec: 04/25/20 16:55 [facility] [id number]) Ankle and Foot Goniometric Range of Motion Ankle and Foot Right Active Ankle/Foot ROM WFL Yes Left Active Ankle/Foot ROM WFL No Dorsiflexion with Knee Flexed 5 Dorsiflexion with Knee Extended 0 Ankle and Foot ROM Limitations ROM Limitations Soft Tissue Tightness,Pain PT-OP-M Strength Start: 04/25/20 08:08 Freq: Status: Active Protocol: Document 04/25/20 11:18 [facility] (Rec: 04/25/20 16:55 [facility] [id number]) Ankle/Foot Strength Ankle and Foot Manual Muscle Testing Right Dorsiflexion (L4) 5 Normal Plantarflexion (S1) 5 Normal Inversion 5 Normal Eversion (S1) 5 Normal Comments pain on left Left Dorsiflexion (L4) 4 Good Plantarflexion (S1) 4- Good- Inversion 4 Good Eversion (S1) 4 Good PT-OP-Q Treatments Start: 04/25/20 08:08 Freq: Status: Active Protocol: Document 05/14/20 15:20 [facility] (Rec: 05/14/20 16:34 [facility] [id number]) Cardio Equipment Recumbent Elliptical (Biodex) Duration (Minutes) 5 Resistance 3 Seat Position 6 Therapeutic Exercises Sitting Exercises short foot Reps/Minutes 10x big toe extension Sitting Exercise Name PT assisted Side left Reps/Minutes 8 mins Comments with ankle neutral progressed to slight DF ankle circles Side bilateral Reps/Minutes 8 x 4 Comments cues on big toe DF during ankle DF, intrinsic Sitting Exercise Name toe ext, abd then flex to floor then relax Side left Reps/Minutes 10 calf stretch Sitting Exercise Name towel Side bilateral Reps/Minutes 30 sec Manual Therapy Treatment Taping 1 Comments deferred due to iontophoresis trial Self-Care/Home Management Treatment Education Patient Education Home Exercise Program Other Education updated written HEP PT-OP-R Modalities Start: 04/25/20 08:08 Freq: Status: Active Protocol: Document 05/14/20 15:20 [facility] (Rec: 05/14/20 16:34 [facility] [id number]) Hot Pack/Cold Pack Treatment Cold Pack Location left heel Patient Position Sidelying Treatment Duration (minutes) 10 Iontophoresis Treatment left heel/medial retromalleolar region Treatment Medication Dexamethasone (-) Medication Amount (mL) (ml) 1 Medication Dosage 4mg/ml Treatment Polarity Negative to Negative Patient Tolerance Good Ultrasound Therapy Treatment left heel Patient Position Sidelying Coupling Medium Ultrasound Gel Applicator Size (cm2) 2 Mode Setting Pulsed Duty Cycle 50% Intensity Setting (w/cm2) 1.0 Comments heel, retromalleolar PT-OP-T Assessment and Plan Start: 04/25/20 08:08 Freq: Status: Active Protocol: Document 05/14/20 15:20 [facility] (Rec: 05/14/20 16:34 [facility] [id number]) Physical Therapy Assessment Goals Four Impairment weakness left calf with atrophy Mcc Goal (LTG) Improve strength left ankle motions to at least 4+/5, with no greater than 1 cm difference in muscle bulk in calves. LTG Duration 06/24/20 Three Impairment antalgic gait Software Publisher Goal (LTG) patient to resume ability to take walks with minimal to no pain or limp, using least restrictive assistive device as needed LTG Duration 06/24/20 Two Impairment edema Mcc Goal (LTG) Minimal to no edema left heel and malleolar region LTG Duration 06/24/20 One Impairment pain Software Publisher Goal (LTG) Decrease pain to no greater than 2/10 left heel LTG Duration 06/24/20 Assessment Summary Assessment Noting some improvement with PT, hopeful to try aquatic PT when available. Agreeable to iontophoresis trial Physical Therapy Plan Frequency and Duration Frequency of Treatment 2x/Week Duration of Treatment 8 wks Plan of Care Start Date 04/25/20 Plan of Care End Date 06/24/20 Next Visit Focus/Plan Next Note Type Treatment Note Next Visit Plan Assess response to iontophoresis, encourage use of ice at home especially after exercise or activity. Continue progression of ther ex as tolerated.
--- NOTE | 2020-05-16 10:32 | PT.OTN ---
Current Diagnoses Muscle wasting and atrophy, not elsewhere classified, left lower leg (05/16/20) Unspecified disorder of synovium and tendon, left ankle and foot (05/16/20) Pain in unspecified foot (05/16/20) Other abnormalities of gait and mobility (05/16/20) Weakness (05/16/20) Physical Therapy Treatment Note PT-OP-A Visit Information Start: 04/25/20 08:08 Freq: Status: Active Protocol: Document 05/16/20 09:47 HH (Rec: 05/16/20 10:32 HH [id number]) Out-Patient Physical Therapy Visit Information Visit Information Visit Type Treatment Note Visit Start Time 09:48 Visit Stop Time 10:30 Total Visit Minutes 42 Visit Number 7 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 History of Current Condition Reports approximately 1 year ago walking in cardiac rehab, took a step and felt something pop in the back of her right foot, has had pain in her heel since, unable to wear shoes with back, swollen at heel. Pain is constant, worse with any pressure. Can't take walks, no exercise bike with Covid19. Has been doing foot and ankle ROM, heat, ice as recommended by her doctor. Prior treatment for compression fracture right foot requiring the use of a boot. Has cane but tries not to use. Has difficulty keeping compression socks from rolling down so she doesn't use. Foot pain complicated by severe back pain and right sciatica. Prior Treatments and Tests Patient reports x-ray at [facility] showed bone spur in her right heel. Has neuropathy in feet. 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 Patient Reported Progress Improving PT-OP-G Mobility & Gait Start: 04/25/20 08:08 Freq: Status: Active Protocol: Document 04/25/20 11:18 SAK (Rec: 04/25/20 16:55 SAK [id number]) OP Gait Assessment Assistive Devices Assistive Device None Gait Deviations General Gait Pattern Antalgic Factors Limiting Gait Function Factors Limiting Gait Function Pain PT-OP-J Posture/Palpation/Skin Start: 04/25/20 08:08 Freq: Status: Active Protocol: Document 04/25/20 11:18 SAK (Rec: 04/25/20 16:55 [facility] [id number]) Posture Evaluation Position Standing Ankle/Foot Posture (L) Pronated,(R) Pronated Foot Arch (L) Low Arch,(R) Low Arch Palpation Assessment Location posterior right heel Palpation Findings Edema,Tenderness Skin Assessment Edema Assessment right heel, retromalleolar Edema Type Non-Pitting Edema Degree 2+ Edema Appearance Puffy Circumference Measurement 4 Location calf right Measurement (Centimeters) 48.8 3 Location calf left Measurement (Centimeters) 46.6 2 Location malleoli right Measurement (Centimeters) 28.2 1 Location malleoli left Measurement (Centimeters) 28.9 PT-OP-K Range of Motion Start: 04/25/20 08:08 Freq: Status: Active Protocol: Document 04/25/20 11:18 SAK (Rec: 04/25/20 16:55 SAK [id number]) Ankle and Foot Goniometric Range of Motion Ankle and Foot Right Active Ankle/Foot ROM WFL Yes Left Active Ankle/Foot ROM WFL No Dorsiflexion with Knee Flexed 5 Dorsiflexion with Knee Extended 0 Ankle and Foot ROM Limitations ROM Limitations Soft Tissue Tightness,Pain PT-OP-M Strength Start: 04/25/20 08:08 Freq: Status: Active Protocol: Document 04/25/20 11:18 SAK (Rec: 04/25/20 16:55 SAK [id number]) Ankle/Foot Strength Ankle and Foot Manual Muscle Testing Right Dorsiflexion (L4) 5 Normal Plantarflexion (S1) 5 Normal Inversion 5 Normal Eversion (S1) 5 Normal Comments pain on left Left Dorsiflexion (L4) 4 Good Plantarflexion (S1) 4- Good- Inversion 4 Good Eversion (S1) 4 Good PT-OP-Q Treatments Start: 04/25/20 08:08 Freq: Status: Active Protocol: Document 05/16/20 09:47 HH (Rec: 05/16/20 10:32 HH [id number]) Therapeutic Exercises Sitting Exercises short foot Side bilateral Reps/Minutes 10x big toe extension Sitting Exercise Name PT assisted Side left Reps/Minutes 8 mins Comments with ankle neutral progressed to slight DF ankle circles Side bilateral Reps/Minutes 8 x 4 Comments cues on big toe DF during ankle DF, PF/DF Sitting Exercise Name seated DF/ PF Side bilateral Reps/Minutes 12 x 2 Comments cues on big toe extension and flexion calf stretch Sitting Exercise Name towel Side bilateral Reps/Minutes 30 sec Standing Exercises SLS Standing Exercise Name with //bar support Side bilateral Reps/Minutes 2 mins Comments contralateral leg lift ankle rock Standing Exercise Name blue air mat Side bilateral Reps/Minutes 2 mins Comments cues on DF and PF ankle board Side bilateral Reps/Minutes 4 mins Comments to facilitate ankle strategy and DF/PF Manual Therapy Treatment Soft Tissue Mobilization plantar fascia Body Location L Mobilization Type Rolling Intensity/Depth Moderate calf Body Location L lat &med borders & achilles Mobilization Type Rolling Intensity/Depth Moderate Body Position Hooklying Comments + achilles tendon distal insertion. PT-OP-R Modalities Start: 04/25/20 08:08 Freq: Status: Active Protocol: Document 05/14/20 15:20 SAK (Rec: 05/14/20 16:34 SAK [id number]) Hot Pack/Cold Pack Treatment Cold Pack Location left heel Patient Position Sidelying Treatment Duration (minutes) 10 Iontophoresis Treatment left heel/medial retromalleolar region Treatment Medication Dexamethasone (-) Medication Amount (mL) (ml) 1 Medication Dosage 4mg/ml Treatment Polarity Negative to Negative Patient Tolerance Good Ultrasound Therapy Treatment left heel Patient Position Sidelying Coupling Medium Ultrasound Gel Applicator Size (cm2) 2 Mode Setting Pulsed Duty Cycle 50% Intensity Setting (w/cm2) 1.0 Comments heel, retromalleolar PT-OP-T Assessment and Plan Start: 04/25/20 08:08 Freq: Status: Active Protocol: Document 05/16/20 09:47 HH (Rec: 05/16/20 10:32 HH [id number]) Physical Therapy Assessment Goals Four Impairment weakness left calf with atrophy Prison Goal (LTG) Improve strength left ankle motions to at least 4+/5, with no greater than 1 cm difference in muscle bulk in calves. LTG Duration 06/24/20 Three Impairment antalgic gait Prison Goal (LTG) patient to resume ability to take walks with minimal to no pain or limp, using least restrictive assistive device as needed LTG Duration 06/24/20 Two Impairment edema Prison Goal (LTG) Minimal to no edema left heel and malleolar region LTG Duration 06/24/20 One Impairment pain Inside Sales Person Goal (LTG) Decrease pain to no greater than 2/10 left heel LTG Duration 06/24/20 Assessment Summary Assessment Pt cont to improve with increased AROM for DF and PF with minimal pain in seated position. Decreased pain to pressure also noted at plantar fascia and distal achilles tendon. Pt also teetee well with supported SLS ex today. Physical Therapy Plan Next Visit Focus/Plan Next Note Type Treatment Note Next Visit Plan Assess response to iontophoresis, encourage use of ice at home especially after exercise or activity. Continue progression of ther ex as tolerated.
--- NOTE | 2020-05-21 15:53 | PT-OP ANOTE ---
No show; arrived 30 min late for appointment
--- NOTE | 2020-05-23 12:12 | PT.OTN ---
Current Diagnoses Muscle wasting and atrophy, not elsewhere classified, left lower leg (05/23/20) Unspecified disorder of synovium and tendon, left ankle and foot (05/23/20) Pain in unspecified foot (05/23/20) Other abnormalities of gait and mobility (05/23/20) Weakness (05/23/20) Physical Therapy Treatment Note PT-OP-A Visit Information Start: 04/25/20 08:08 Freq: Status: Active Protocol: Document 05/23/20 09:46 HH (Rec: 05/23/20 12:11 HH [id number]) Out-Patient Physical Therapy Visit Information Visit Information Visit Type Treatment Note Visit Start Time 09:46 Visit Stop Time 10:30 Total Visit Minutes 44 Visit Number 8 Number of [employer]PER[employer]OR [employer] Visits 0 PT-OP-B Current Condition Start: 04/25/20 08:08 Freq: Status: Active Protocol: Document 04/25/20 11:18 SAK (Rec: 04/25/20 12:19 SAK [id number]) Current Condition History of Current Condition Onset Date 1 year Current Complaints pain right heel. History of Current Condition Reports approximately 1 year ago walking in cardiac rehab, took a step and felt something pop in the back of her right foot, has had pain in her heel since, unable to wear shoes with back, swollen at heel. Pain is constant, worse with any pressure. Can't take walks, no exercise bike with Covid19. Has been doing foot and ankle ROM, heat, ice as recommended by her doctor. Prior treatment for compression fracture right foot requiring the use of a boot. Has cane but tries not to use. Has difficulty keeping compression socks from rolling down so she doesn't use. Foot pain complicated by severe back pain and right sciatica. Prior Treatments and Tests Patient reports x-ray at [facility] showed bone spur in her right heel. Has neuropathy in feet. 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 I was walking pretty good thought at that point. Patient Reported Progress Same PT-OP-G Mobility & Gait Start: 04/25/20 08:08 Freq: Status: Active Protocol: Document 04/25/20 11:18 SAK (Rec: 04/25/20 16:55 SAK [id number]) OP Gait Assessment Assistive Devices Assistive Device None Gait Deviations General Gait Pattern Antalgic Factors Limiting Gait Function Factors Limiting Gait Function Pain PT-OP-J Posture/Palpation/Skin Start: 04/25/20 08:08 Freq: Status: Active Protocol: Document 04/25/20 11:18 SAK (Rec: 04/25/20 16:55 [facility] [id number]) Posture Evaluation Position Standing Ankle/Foot Posture (L) Pronated,(R) Pronated Foot Arch (L) Low Arch,(R) Low Arch Palpation Assessment Location posterior right heel Palpation Findings Edema,Tenderness Skin Assessment Edema Assessment right heel, retromalleolar Edema Type Non-Pitting Edema Degree 2+ Edema Appearance Puffy Circumference Measurement 4 Location calf right Measurement (Centimeters) 48.8 3 Location calf left Measurement (Centimeters) 46.6 2 Location malleoli right Measurement (Centimeters) 28.2 1 Location malleoli left Measurement (Centimeters) 28.9 PT-OP-K Range of Motion Start: 04/25/20 08:08 Freq: Status: Active Protocol: Document 04/25/20 11:18 SAK (Rec: 04/25/20 16:55 SAK [id number]) Ankle and Foot Goniometric Range of Motion Ankle and Foot Right Active Ankle/Foot ROM WFL Yes Left Active Ankle/Foot ROM WFL No Dorsiflexion with Knee Flexed 5 Dorsiflexion with Knee Extended 0 Ankle and Foot ROM Limitations ROM Limitations Soft Tissue Tightness,Pain PT-OP-M Strength Start: 04/25/20 08:08 Freq: Status: Active Protocol: Document 04/25/20 11:18 [facility] (Rec: 04/25/20 16:55 [facility] [id number]) Ankle/Foot Strength Ankle and Foot Manual Muscle Testing Right Dorsiflexion (L4) 5 Normal Plantarflexion (S1) 5 Normal Inversion 5 Normal Eversion (S1) 5 Normal Comments pain on left Left Dorsiflexion (L4) 4 Good Plantarflexion (S1) 4- Good- Inversion 4 Good Eversion (S1) 4 Good PT-OP-Q Treatments Start: 04/25/20 08:08 Freq: Status: Active Protocol: Document 05/23/20 09:46 (Rec: 05/23/20 12:11 [id number]) Therapeutic Exercises Sitting Exercises short foot Side bilateral Reps/Minutes 10x big toe extension Sitting Exercise Name PT assisted Side left Reps/Minutes 8 mins Comments with ankle neutral progressed to slight DF ankle circles Sitting Exercise Name on blue disc Side bilateral Reps/Minutes 8 x 4 Comments cues on big toe DF during ankle DF, calf stretch Sitting Exercise Name gait belt Side bilateral Reps/Minutes 8 sec x 5 Comments no pain noted Standing Exercises ankle board Standing Exercise Name tried with her new sneakers but pain increased Side bilateral Reps/Minutes 4 mins Comments to facilitate ankle strategy and DF/PF Manual Therapy Treatment Soft Tissue Mobilization plantar fascia Body Location L Mobilization Type Rolling Intensity/Depth Moderate calf Body Location L lat &med borders & achilles Mobilization Type Rolling Intensity/Depth Moderate Body Position Hooklying Comments + achilles tendon distal insertion. Taping 1 Body Location L heel Type of Tape Kinesio Tape Skin Inspection good Comments 2 I strip PT-OP-R Modalities Start: 04/25/20 08:08 Freq: Status: Active Protocol: Document 05/14/20 15:20 SAK (Rec: 05/14/20 16:34 [facility] [id number]) Hot Pack/Cold Pack Treatment Cold Pack Location left heel Patient Position Sidelying Treatment Duration (minutes) 10 Iontophoresis Treatment left heel/medial retromalleolar region Treatment Medication Dexamethasone (-) Medication Amount (mL) (ml) 1 Medication Dosage 4mg/ml Treatment Polarity Negative to Negative Patient Tolerance Good Ultrasound Therapy Treatment left heel Patient Position Sidelying Coupling Medium Ultrasound Gel Applicator Size (cm2) 2 Mode Setting Pulsed Duty Cycle 50% Intensity Setting (w/cm2) 1.0 Comments heel, retromalleolar PT-OP-T Assessment and Plan Start: 04/25/20 08:08 Freq: Status: Active Protocol: Document 05/23/20 09:46 (Rec: 05/23/20 12:11 [id number]) Physical Therapy Assessment Goals Four Impairment weakness left calf with atrophy [employer]les Goal (LTG) Improve strength left ankle motions to at least 4+/5, with no greater than 1 cm difference in muscle bulk in calves. LTG Duration 06/24/20 Three Impairment antalgic gait [employer] Goal (LTG) patient to resume ability to take walks with minimal to no pain or limp, using least restrictive assistive device as needed LTG Duration 06/24/20 Two Impairment edema Prison Goal (LTG) Minimal to no edema left heel and malleolar region LTG Duration 06/24/20 One Impairment pain [employer]les Goal (LTG) Decrease pain to no greater than 2/10 left heel LTG Duration 06/24/20 Assessment Summary Assessment Pt has a flare up after she walked for 1.5 miles on uneven surface during the weekend. Her heel is very sensitive to touch and pain with WB exercises today. However, pt has improved active DF and PF in open chain position but weight bearing position is more painful today. Spent time educating pt about DMOS to not over work herself. Pt described she is 40 % better in general. Pt has one more visit left but recommended her to cont twice a week with once for aquatic therapy and once for land therapy Physical Therapy Plan Therapeutic Interventions Therapeutic Interventions Aquatic Therapy,Balance Training,Gait Training,Home Exercise Program,Joint Mobilizations,Manual Therapy, Neuromuscular Re-education, Patient/Caregiver Education, Self-Care/Home Management,Soft Tissue Mobilization,Taping, Therapeutic Activities, Therapeutic Exercises Next Visit Focus/Plan Next Note Type Treatment Note Next Visit Plan Assess response to iontophoresis, encourage use of ice at home especially after exercise or activity. Continue progression of ther ex as tolerated. check aquatic therapy schedule WB exercises such as gait training, heel raise, standing calf stretch if able to teetee.
--- NOTE | 2020-05-28 12:15 | PT.OTN ---
Current Diagnoses Muscle wasting and atrophy, not elsewhere classified, left lower leg (05/28/20) Unspecified disorder of synovium and tendon, left ankle and foot (05/28/20) Pain in unspecified foot (05/28/20) Other abnormalities of gait and mobility (05/28/20) Weakness (05/28/20) Physical Therapy Treatment Note PT-OP-A Visit Information Start: 04/25/20 08:08 Freq: Status: Active Protocol: Document 05/28/20 09:54 SAK (Rec: 05/28/20 10:09 SAK [id number]) Out-Patient Physical Therapy Visit Information Visit Information Visit Type Treatment Note Visit Start Time 09:46 Visit Stop Time 10:48 Total Visit Minutes 62 Visit Number 9 Number of TIMBER TREATMENT PLANT OPERATOR Visits 0 PT-OP-B Current Condition Start: 04/25/20 08:08 Freq: Status: Active Protocol: Document 04/25/20 11:18 SAK (Rec: 04/25/20 12:19 SAK [id number]) Current Condition History of Current Condition Onset Date 1 year Current Complaints pain right heel. History of Current Condition Reports approximately 1 year ago walking in cardiac rehab, took a step and felt something pop in the back of her right foot, has had pain in her heel since, unable to wear shoes with back, swollen at heel. Pain is constant, worse with any pressure. Can't take walks, no exercise bike with Covid19. Has been doing foot and ankle ROM, heat, ice as recommended by her doctor. Prior treatment for compression fracture right foot requiring the use of a boot. Has cane but tries not to use. Has difficulty keeping compression socks from rolling down so she doesn't use. Foot pain complicated by severe back pain and right sciatica. Prior Treatments and Tests Patient reports x-ray at [facility] showed bone spur in her right heel. Has neuropathy in feet. 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 I know it would help to lose weight. States she doesn't have room for an exercise bike. PT-OP-G Mobility & Gait Start: 04/25/20 08:08 Freq: Status: Active Protocol: Document 04/25/20 11:18 SAK (Rec: 04/25/20 16:55 SAK [id number]) OP Gait Assessment Assistive Devices Assistive Device None Gait Deviations General Gait Pattern Antalgic Factors Limiting Gait Function Factors Limiting Gait Function Pain PT-OP-J Posture/Palpation/Skin Start: 04/25/20 08:08 Freq: Status: Active Protocol: Document 04/25/20 11:18 SAK (Rec: 04/25/20 16:55 [facility] [id number]) Posture Evaluation Position Standing Ankle/Foot Posture (L) Pronated,(R) Pronated Foot Arch (L) Low Arch,(R) Low Arch Palpation Assessment Location posterior right heel Palpation Findings Edema,Tenderness Skin Assessment Edema Assessment right heel, retromalleolar Edema Type Non-Pitting Edema Degree 2+ Edema Appearance Puffy Circumference Measurement 4 Location calf right Measurement (Centimeters) 48.8 3 Location calf left Measurement (Centimeters) 46.6 2 Location malleoli right Measurement (Centimeters) 28.2 1 Location malleoli left Measurement (Centimeters) 28.9 PT-OP-K Range of Motion Start: 04/25/20 08:08 Freq: Status: Active Protocol: Document 04/25/20 11:18 SAK (Rec: 04/25/20 16:55 [facility] [id number]) Ankle and Foot Goniometric Range of Motion Ankle and Foot Right Active Ankle/Foot ROM WFL Yes Left Active Ankle/Foot ROM WFL No Dorsiflexion with Knee Flexed 5 Dorsiflexion with Knee Extended 0 Ankle and Foot ROM Limitations ROM Limitations Soft Tissue Tightness,Pain PT-OP-M Strength Start: 04/25/20 08:08 Freq: Status: Active Protocol: Document 04/25/20 11:18 [facility] (Rec: 04/25/20 16:55 [facility] [id number]) Ankle/Foot Strength Ankle and Foot Manual Muscle Testing Right Dorsiflexion (L4) 5 Normal Plantarflexion (S1) 5 Normal Inversion 5 Normal Eversion (S1) 5 Normal Comments pain on left Left Dorsiflexion (L4) 4 Good Plantarflexion (S1) 4- Good- Inversion 4 Good Eversion (S1) 4 Good PT-OP-Q Treatments Start: 04/25/20 08:08 Freq: Status: Active Protocol: Document 05/28/20 09:54 [facility] (Rec: 05/28/20 10:09 [facility] [id number]) Cardio Equipment Recumbent Elliptical ([place]) Duration (Minutes) 8 Resistance 2 Seat Position 6 Therapeutic Exercises Sitting Exercises BAPS board Sitting Exercise Name forwar/back, side, circles Equipment Used L2 BAPS Reps/Minutes 10x each motion short foot Comments HEP big toe extension Comments HEP (non assisted) ankle circles Comments HEP calf stretch Sitting Exercise Name gait belt for gastroc, knee flexed soleus Side left Reps/Minutes 8 sec x 5 Comments painfree ROM Manual Therapy Treatment Soft Tissue Mobilization plantar fascia Body Location L Mobilization Type Rolling Intensity/Depth Moderate calf Body Location L lat &med borders & achilles Mobilization Type Rolling Intensity/Depth Moderate Body Position Hooklying Comments + achilles tendon distal insertion. Taping 1 Body Location L heel Type of Tape Kinesio Tape Skin Inspection good Comments 2 I strip PT-OP-R Modalities Start: 04/25/20 08:08 Freq: Status: Active Protocol: Document 05/28/20 09:54 [facility] (Rec: 05/28/20 12:15 [facility] [id number]) Hot Pack/Cold Pack Treatment Cold Pack Location left heel Patient Position Sidelying Treatment Duration (minutes) 10 Iontophoresis Treatment left heel/medial retromalleolar region Treatment Medication Dexamethasone (-) Medication Amount (mL) (ml) 1 Medication Dosage 4mg/ml Treatment Polarity Negative to Negative Patient Tolerance Good Ultrasound Therapy Treatment left heel Patient Position Sidelying Coupling Medium Ultrasound Gel Applicator Size (cm2) 2 Mode Setting Pulsed Duty Cycle 50% Intensity Setting (w/cm2) 1.0 Comments heel, retromalleolar PT-OP-T Assessment and Plan Start: 04/25/20 08:08 Freq: Status: Active Protocol: Document 05/28/20 09:54 [facility] (Rec: 05/28/20 12:15 [facility] [id number]) Physical Therapy Assessment Goals Four Impairment weakness left calf with atrophy Mcc Goal (LTG) Improve strength left ankle motions to at least 4+/5, with no greater than 1 cm difference in muscle bulk in calves. LTG Duration 06/24/20 Three Impairment antalgic gait Grated Cheese Maker Goal (LTG) patient to resume ability to take walks with minimal to no pain or limp, using least restrictive assistive device as needed LTG Duration 06/24/20 Two Impairment edema Grated Cheese Maker Goal (LTG) Minimal to no edema left heel and malleolar region LTG Duration 06/24/20 One Impairment pain Grated Cheese Maker Goal (LTG) Decrease pain to no greater than 2/10 left heel LTG Duration 06/24/20 Physical Therapy Plan Therapeutic Interventions Therapeutic Interventions Aquatic Therapy,Balance Training,Gait Training,Home Exercise Program,Joint Mobilizations,Manual Therapy, Neuromuscular Re-education, Patient/Caregiver Education, Self-Care/Home Management,Soft Tissue Mobilization,Taping, Therapeutic Activities, Therapeutic Exercises Next Visit Focus/Plan Next Note Type Treatment Note Next Visit Plan Continue to progress with ther ex and manual techniques as possible. Patient encouraged to check pool schedule as they are opening up due to PT recommendation for aquatic exercise, will schedule aquatic PT when state at Phase III.
--- NOTE | 2020-05-30 16:52 | PT.OTN ---
Current Diagnoses Muscle wasting and atrophy, not elsewhere classified, left lower leg (05/30/20) Unspecified disorder of synovium and tendon, left ankle and foot (05/30/20) Pain in unspecified foot (05/30/20) Other abnormalities of gait and mobility (05/30/20) Weakness (05/30/20) Physical Therapy Treatment Note PT-OP-A Visit Information Start: 04/25/20 08:08 Freq: Status: Active Protocol: Document 05/30/20 16:00 DCW (Rec: 05/30/20 16:51 DCW [id number]) Out-Patient Physical Therapy Visit Information Visit Information Visit Type Treatment Note Visit Start Time 16:00 Visit Stop Time 16:50 Total Visit Minutes 50 Visit Number 10 Number of HEAD OF BUSINESS DEVELOPMENT Visits 0 PT-OP-B Current Condition Start: 04/25/20 08:08 Freq: Status: Active Protocol: Document 04/25/20 11:18 SAK (Rec: 04/25/20 12:19 SAK [id number]) Current Condition History of Current Condition Onset Date 1 year Current Complaints pain right heel. History of Current Condition Reports approximately 1 year ago walking in cardiac rehab, took a step and felt something pop in the back of her right foot, has had pain in her heel since, unable to wear shoes with back, swollen at heel. Pain is constant, worse with any pressure. Can't take walks, no exercise bike with Covid19. Has been doing foot and ankle ROM, heat, ice as recommended by her doctor. Prior treatment for compression fracture right foot requiring the use of a boot. Has cane but tries not to use. Has difficulty keeping compression socks from rolling down so she doesn't use. Foot pain complicated by severe back pain and right sciatica. Prior Treatments and Tests Patient reports x-ray at [facility] showed bone spur in her right heel. Has neuropathy in feet. 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 PT-OP-G Mobility & Gait Start: 04/25/20 08:08 Freq: Status: Active Protocol: Document 04/25/20 11:18 SAK (Rec: 04/25/20 16:55 SAK [id number]) OP Gait Assessment Assistive Devices Assistive Device None Gait Deviations General Gait Pattern Antalgic Factors Limiting Gait Function Factors Limiting Gait Function Pain PT-OP-J Posture/Palpation/Skin Start: 04/25/20 08:08 Freq: Status: Active Protocol: Document 04/25/20 11:18 SAK (Rec: 04/25/20 16:55 [facility] [id number]) Posture Evaluation Position Standing Ankle/Foot Posture (L) Pronated,(R) Pronated Foot Arch (L) Low Arch,(R) Low Arch Palpation Assessment Location posterior right heel Palpation Findings Edema,Tenderness Skin Assessment Edema Assessment right heel, retromalleolar Edema Type Non-Pitting Edema Degree 2+ Edema Appearance Puffy Circumference Measurement 4 Location calf right Measurement (Centimeters) 48.8 3 Location calf left Measurement (Centimeters) 46.6 2 Location malleoli right Measurement (Centimeters) 28.2 1 Location malleoli left Measurement (Centimeters) 28.9 PT-OP-K Range of Motion Start: 04/25/20 08:08 Freq: Status: Active Protocol: Document 04/25/20 11:18 SAK (Rec: 04/25/20 16:55 [facility] [id number]) Ankle and Foot Goniometric Range of Motion Ankle and Foot Right Active Ankle/Foot ROM WFL Yes Left Active Ankle/Foot ROM WFL No Dorsiflexion with Knee Flexed 5 Dorsiflexion with Knee Extended 0 Ankle and Foot ROM Limitations ROM Limitations Soft Tissue Tightness,Pain PT-OP-M Strength Start: 04/25/20 08:08 Freq: Status: Active Protocol: Document 04/25/20 11:18 SAK (Rec: 04/25/20 16:55 SAK [id number]) Ankle/Foot Strength Ankle and Foot Manual Muscle Testing Right Dorsiflexion (L4) 5 Normal Plantarflexion (S1) 5 Normal Inversion 5 Normal Eversion (S1) 5 Normal Comments pain on left Left Dorsiflexion (L4) 4 Good Plantarflexion (S1) 4- Good- Inversion 4 Good Eversion (S1) 4 Good PT-OP-Q Treatments Start: 04/25/20 08:08 Freq: Status: Active Protocol: Document 05/30/20 16:00 DCW (Rec: 05/30/20 16:51 DCW [id number]) Cardio Equipment Recumbent Elliptical (Sofar Sounds) Duration (Minutes) 6 Resistance 2 Seat Position 6 Therapeutic Exercises Sitting Exercises BAPS board Sitting Exercise Name forward/back, side, circles Equipment Used L2 BAPS Reps/Minutes 10x each motion short foot Side bilateral Reps/Minutes 10x big toe extension Sitting Exercise Name PT assisted Side left Comments with ankle neutral progressed to slight DF calf stretch Sitting Exercise Name gait belt for gastroc, knee flexed soleus Side left Reps/Minutes 8 sec x 5 Comments painfree ROM Standing Exercises RON board Standing Exercise Name Calf stretch Side bilateral Reps/Minutes 30 hold Manual Therapy Treatment Soft Tissue Mobilization plantar fascia Body Location L Mobilization Type Rolling Intensity/Depth Moderate calf Body Location L lat &med borders & achilles Mobilization Type Rolling Intensity/Depth Moderate Body Position Hooklying Comments + achilles tendon distal insertion. PT-OP-R Modalities Start: 04/25/20 08:08 Freq: Status: Active Protocol: Document 05/30/20 16:00 DCW (Rec: 05/30/20 16:51 DCW [id number]) Hot Pack/Cold Pack Treatment Cold Pack Location left heel Patient Position Sidelying Treatment Duration (minutes) 10 PT-OP-T Assessment and Plan Start: 04/25/20 08:08 Freq: Status: Active Protocol: Document 05/30/20 16:00 DCW (Rec: 05/30/20 16:51 DCW [id number]) Physical Therapy Assessment Goals Four Impairment weakness left calf with atrophy [facility] Goal (LTG) Improve strength left ankle motions to at least 4+/5, with no greater than 1 cm difference in muscle bulk in calves. LTG Duration 06/24/20 Three Impairment antalgic gait Ladle Watcher Goal (LTG) patient to resume ability to take walks with minimal to no pain or limp, using least restrictive assistive device as needed LTG Duration 06/24/20 Two Impairment edema [facility]iary Goal (LTG) Minimal to no edema left heel and malleolar region LTG Duration 06/24/20 One Impairment pain [facility]iary Goal (LTG) Decrease pain to no greater than 2/10 left heel LTG Duration 06/24/20 Assessment Summary Assessment Pt very tender along medial foot and Achilles insertion. Able to tolerate activity without rest breaks, however was sore after STM. [place] much better after cryotherapy. Physical Therapy Plan Therapeutic Interventions Therapeutic Interventions Aquatic Therapy,Balance Training,Gait Training,Home Exercise Program,Joint Mobilizations,Manual Therapy, Neuromuscular Re-education, Patient/Caregiver Education, Self-Care/Home Management,Soft Tissue Mobilization,Taping, Therapeutic Activities, Therapeutic Exercises Next Visit Focus/Plan Next Note Type Treatment Note Next Visit Plan Continue to progress with ther ex and manual techniques as possible. Patient encouraged to check pool schedule as they are opening up due to PT recommendation for aquatic exercise, will schedule aquatic PT when state at Phase III.
--- NOTE | 2020-06-04 12:28 | PT.OTN ---
Current Diagnoses Muscle wasting and atrophy, not elsewhere classified, left lower leg (06/04/20) Unspecified disorder of synovium and tendon, left ankle and foot (06/04/20) Pain in unspecified foot (06/04/20) Other abnormalities of gait and mobility (06/04/20) Weakness (06/04/20) Physical Therapy Treatment Note PT-OP-A Visit Information Start: 04/25/20 08:08 Freq: Status: Active Protocol: Document 06/04/20 10:35 HH (Rec: 06/04/20 12:12 HH [id number]) Out-Patient Physical Therapy Visit Information Visit Information Visit Type Treatment Note Visit Start Time 10:33 Visit Stop Time 11:15 Total Visit Minutes 42 Visit Number 11 Number of NEUROPSYCHOLOGIST Visits 0 PT-OP-B Current Condition Start: 04/25/20 08:08 Freq: Status: Active Protocol: Document 04/25/20 11:18 SAK (Rec: 04/25/20 12:19 SAK [id number]) Current Condition History of Current Condition Onset Date 1 year Current Complaints pain right heel. History of Current Condition Reports approximately 1 year ago walking in cardiac rehab, took a step and felt something pop in the back of her right foot, has had pain in her heel since, unable to wear shoes with back, swollen at heel. Pain is constant, worse with any pressure. Can't take walks, no exercise bike with Covid19. Has been doing foot and ankle ROM, heat, ice as recommended by her doctor. Prior treatment for compression fracture right foot requiring the use of a boot. Has cane but tries not to use. Has difficulty keeping compression socks from rolling down so she doesn't use. Foot pain complicated by severe back pain and right sciatica. Prior Treatments and Tests Patient reports x-ray at [facility] showed bone spur in her right heel. Has neuropathy in feet. 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 The break definitely helps to calm things down. I also bought a floor stepper. PT-OP-G Mobility & Gait Start: 04/25/20 08:08 Freq: Status: Active Protocol: Document 04/25/20 11:18 SAK (Rec: 04/25/20 16:55 [facility] [id number]) OP Gait Assessment Assistive Devices Assistive Device None Gait Deviations General Gait Pattern Antalgic Factors Limiting Gait Function Factors Limiting Gait Function Pain PT-OP-J Posture/Palpation/Skin Start: 04/25/20 08:08 Freq: Status: Active Protocol: Document 04/25/20 11:18 SAK (Rec: 04/25/20 16:55 [facility] [id number]) Posture Evaluation Position Standing Ankle/Foot Posture (L) Pronated,(R) Pronated Foot Arch (L) Low Arch,(R) Low Arch Palpation Assessment Location posterior right heel Palpation Findings Edema,Tenderness Skin Assessment Edema Assessment right heel, retromalleolar Edema Type Non-Pitting Edema Degree 2+ Edema Appearance Puffy Circumference Measurement 4 Location calf right Measurement (Centimeters) 48.8 3 Location calf left Measurement (Centimeters) 46.6 2 Location malleoli right Measurement (Centimeters) 28.2 1 Location malleoli left Measurement (Centimeters) 28.9 PT-OP-K Range of Motion Start: 04/25/20 08:08 Freq: Status: Active Protocol: Document 04/25/20 11:18 SAK (Rec: 04/25/20 16:55 [facility] [id number]) Ankle and Foot Goniometric Range of Motion Ankle and Foot Right Active Ankle/Foot ROM WFL Yes Left Active Ankle/Foot ROM WFL No Dorsiflexion with Knee Flexed 5 Dorsiflexion with Knee Extended 0 Ankle and Foot ROM Limitations ROM Limitations Soft Tissue Tightness,Pain PT-OP-M Strength Start: 04/25/20 08:08 Freq: Status: Active Protocol: Document 04/25/20 11:18 SAK (Rec: 04/25/20 16:55 SAK [id number]) Ankle/Foot Strength Ankle and Foot Manual Muscle Testing Right Dorsiflexion (L4) 5 Normal Plantarflexion (S1) 5 Normal Inversion 5 Normal Eversion (S1) 5 Normal Comments pain on left Left Dorsiflexion (L4) 4 Good Plantarflexion (S1) 4- Good- Inversion 4 Good Eversion (S1) 4 Good PT-OP-Q Treatments Start: 04/25/20 08:08 Freq: Status: Active Protocol: Document 06/04/20 10:35 HH (Rec: 06/04/20 12:12 HH [id number]) Cardio Equipment Recumbent Stepper (Sci-Fit) Duration (Minutes) 6 Seat Position 3 Gym Equipment Shuttle Recovery leg press Details for partial WB activities Resistance 50 then 75 Shuttle Recovery Platform Stable Reps/Time reg position then forefoot to push off, no pain noted Therapeutic Exercises Sitting Exercises BAPS board Sitting Exercise Name forward/back, side, circles Equipment Used L3 BAPS Reps/Minutes 10x each motion short foot Side bilateral Reps/Minutes 10x big toe extension Sitting Exercise Name foot on ground Side left Comments with ankle neutral progressed to slight DF Standing Exercises ankle rock Standing Exercise Name focus on preswing phase with toe push off Side left Equipment Used L foot on blue pad Reps/Minutes 12 x 2 Comments cues for L knee flexion and forefoot push off Manual Therapy Treatment Soft Tissue Mobilization calf Body Location L lat &med borders & achilles Mobilization Type Rolling Intensity/Depth Moderate Body Position Hooklying Comments + achilles tendon distal insertion. (medial side) PT-OP-R Modalities Start: 04/25/20 08:08 Freq: Status: Active Protocol: Document 05/30/20 16:00 DCW (Rec: 05/30/20 16:51 DCW [id number]) Hot Pack/Cold Pack Treatment Cold Pack Location left heel Patient Position Sidelying Treatment Duration (minutes) 10 PT-OP-T Assessment and Plan Start: 04/25/20 08:08 Freq: Status: Active Protocol: Document 06/04/20 10:35 HH (Rec: 06/04/20 12:12 HH [id number]) Physical Therapy Assessment Goals Four Impairment weakness left calf with atrophy Voip Engineer Goal (LTG) Improve strength left ankle motions to at least 4+/5, with no greater than 1 cm difference in muscle bulk in calves. LTG Duration 06/24/20 Three Impairment antalgic gait Voip Engineer Goal (LTG) patient to resume ability to take walks with minimal to no pain or limp, using least restrictive assistive device as needed LTG Duration 06/24/20 Two Impairment edema Alf Goal (LTG) Minimal to no edema left heel and malleolar region LTG Duration 06/24/20 One Impairment pain Voip Engineer Goal (LTG) Decrease pain to no greater than 2/10 left heel LTG Duration 06/24/20 Assessment Summary Assessment Pt took a couple days for recovery and felt better since . This PT noticed pt's current pain is primarily located at medial side of distal insertion of achilles only. Pt has good ankle ROM and big toe DF/PF. Pt also denied pain / discomfort with partial WB activities today on leg press and weight shifting. will focus on PWB activities to build up tolerance and load her achilles tendon. Physical Therapy Plan Next Visit Focus/Plan Next Note Type Treatment Note Next Visit Plan Continue to progress with ther ex and manual techniques as possible. Patient encouraged to check pool schedule as they are opening up due to PT recommendation for aquatic exercise, will schedule aquatic PT when state at Phase III. add leg press from 75#
--- NOTE | 2020-06-06 11:59 | PT.OTN ---
Current Diagnoses Muscle wasting and atrophy, not elsewhere classified, left lower leg (06/06/20) Unspecified disorder of synovium and tendon, left ankle and foot (06/06/20) Pain in unspecified foot (06/06/20) Other abnormalities of gait and mobility (06/06/20) Weakness (06/06/20) Physical Therapy Treatment Note PT-OP-A Visit Information Start: 04/25/20 08:08 Freq: Status: Active Protocol: Document 06/06/20 11:15 DCW (Rec: 06/06/20 11:59 DCW [id number]) Out-Patient Physical Therapy Visit Information Visit Information Visit Type Treatment Note Visit Start Time 11:15 Visit Stop Time 12:00 Total Visit Minutes 45 Visit Number 12 Number of DRAWER UPFITTER Visits 0 PT-OP-B Current Condition Start: 04/25/20 08:08 Freq: Status: Active Protocol: Document 04/25/20 11:18 SAK (Rec: 04/25/20 12:19 SAK [id number]) Current Condition History of Current Condition Onset Date 1 year Current Complaints pain right heel. History of Current Condition Reports approximately 1 year ago walking in cardiac rehab, took a step and felt something pop in the back of her right foot, has had pain in her heel since, unable to wear shoes with back, swollen at heel. Pain is constant, worse with any pressure. Can't take walks, no exercise bike with Covid19. Has been doing foot and ankle ROM, heat, ice as recommended by her doctor. Prior treatment for compression fracture right foot requiring the use of a boot. Has cane but tries not to use. Has difficulty keeping compression socks from rolling down so she doesn't use. Foot pain complicated by severe back pain and right sciatica. Prior Treatments and Tests Patient reports x-ray at [facility] showed bone spur in her right heel. Has neuropathy in feet. 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 The left, I'm still getting pain through the heel when I step on it. PT-OP-G Mobility & Gait Start: 04/25/20 08:08 Freq: Status: Active Protocol: Document 04/25/20 11:18 SAK (Rec: 04/25/20 16:55 SAK [id number]) OP Gait Assessment Assistive Devices Assistive Device None Gait Deviations General Gait Pattern Antalgic Factors Limiting Gait Function Factors Limiting Gait Function Pain PT-OP-J Posture/Palpation/Skin Start: 04/25/20 08:08 Freq: Status: Active Protocol: Document 04/25/20 11:18 SAK (Rec: 04/25/20 16:55 SAK [id number]) Posture Evaluation Position Standing Ankle/Foot Posture (L) Pronated,(R) Pronated Foot Arch (L) Low Arch,(R) Low Arch Palpation Assessment Location posterior right heel Palpation Findings Edema,Tenderness Skin Assessment Edema Assessment right heel, retromalleolar Edema Type Non-Pitting Edema Degree 2+ Edema Appearance Puffy Circumference Measurement 4 Location calf right Measurement (Centimeters) 48.8 3 Location calf left Measurement (Centimeters) 46.6 2 Location malleoli right Measurement (Centimeters) 28.2 1 Location malleoli left Measurement (Centimeters) 28.9 PT-OP-K Range of Motion Start: 04/25/20 08:08 Freq: Status: Active Protocol: Document 04/25/20 11:18 SAK (Rec: 04/25/20 16:55 SAK [id number]) Ankle and Foot Goniometric Range of Motion Ankle and Foot Right Active Ankle/Foot ROM WFL Yes Left Active Ankle/Foot ROM WFL No Dorsiflexion with Knee Flexed 5 Dorsiflexion with Knee Extended 0 Ankle and Foot ROM Limitations ROM Limitations Soft Tissue Tightness,Pain PT-OP-M Strength Start: 04/25/20 08:08 Freq: Status: Active Protocol: Document 04/25/20 11:18 SAK (Rec: 04/25/20 16:55 SAK [id number]) Ankle/Foot Strength Ankle and Foot Manual Muscle Testing Right Dorsiflexion (L4) 5 Normal Plantarflexion (S1) 5 Normal Inversion 5 Normal Eversion (S1) 5 Normal Comments pain on left Left Dorsiflexion (L4) 4 Good Plantarflexion (S1) 4- Good- Inversion 4 Good Eversion (S1) 4 Good PT-OP-Q Treatments Start: 04/25/20 08:08 Freq: Status: Active Protocol: Document 06/06/20 11:15 DCW (Rec: 06/06/20 11:59 DCW [id number]) Cardio Equipment Recumbent Elliptical (Organica Water) Duration (Minutes) 5 Resistance 4 Seat Position 7 Therapeutic Exercises Sitting Exercises BAPS board Sitting Exercise Name forward/back, side, circles Equipment Used L3 BAPS Reps/Minutes 10x each motion Comments in standing short foot Side bilateral Reps/Minutes 10x big toe extension Sitting Exercise Name foot on ground Side left Comments with ankle neutral progressed to slight DF Standing Exercises RON board Standing Exercise Name Calf stretch Side bilateral Reps/Minutes 30 hold Manual Therapy Treatment Soft Tissue Mobilization plantar fascia Body Location L Mobilization Type Rolling Intensity/Depth Moderate calf Body Location L lat &med borders & achilles Mobilization Type Rolling Intensity/Depth Moderate Body Position Hooklying Comments + achilles tendon distal insertion. (medial side) PT-OP-R Modalities Start: 04/25/20 08:08 Freq: Status: Active Protocol: Document 05/30/20 16:00 DCW (Rec: 05/30/20 16:51 DCW [id number]) Hot Pack/Cold Pack Treatment Cold Pack Location left heel Patient Position Sidelying Treatment Duration (minutes) 10 PT-OP-T Assessment and Plan Start: 04/25/20 08:08 Freq: Status: Active Protocol: Document 06/06/20 11:15 DCW (Rec: 06/06/20 11:59 DCW [id number]) Physical Therapy Assessment Goals Four Impairment weakness left calf with atrophy Wind Turbine Blade Repair Technician Goal (LTG) Improve strength left ankle motions to at least 4+/5, with no greater than 1 cm difference in muscle bulk in calves. LTG Duration 06/24/20 Three Impairment antalgic gait Wind Turbine Blade Repair Technician Goal (LTG) patient to resume ability to take walks with minimal to no pain or limp, using least restrictive assistive device as needed LTG Duration 06/24/20 Two Impairment edema Skilled Nursing Goal (LTG) Minimal to no edema left heel and malleolar region LTG Duration 06/24/20 One Impairment pain Wind Turbine Blade Repair Technician Goal (LTG) Decrease pain to no greater than 2/10 left heel LTG Duration 06/24/20 Assessment Summary Assessment Pt continues to display significant tenderness along left heel and Achilles insertion. Great toe extension improved, pt ambulating today with less antalgia. Pt wanted to ice at home today, so she could get some errands done first. Physical Therapy Plan Therapeutic Interventions Therapeutic Interventions Aquatic Therapy,Balance Training,Gait Training,Home Exercise Program,Joint Mobilizations,Manual Therapy, Neuromuscular Re-education, Patient/Caregiver Education, Self-Care/Home Management,Soft Tissue Mobilization,Taping, Therapeutic Activities, Therapeutic Exercises Next Visit Focus/Plan Next Note Type Treatment Note Next Visit Plan Continue to progress with ther ex and manual techniques as possible. Patient encouraged to check pool schedule as they are opening up due to PT recommendation for aquatic exercise, will schedule aquatic PT when state at Phase III. add leg press from 75#
--- NOTE | 2020-06-10 08:25 | PT.OTN ---
Current Diagnoses Muscle wasting and atrophy, not elsewhere classified, left lower leg (06/10/20) Unspecified disorder of synovium and tendon, left ankle and foot (06/10/20) Pain in unspecified foot (06/10/20) Other abnormalities of gait and mobility (06/10/20) Weakness (06/10/20) Physical Therapy Treatment Note PT-OP-A Visit Information Start: 04/25/20 08:08 Freq: Status: Active Protocol: Document 06/10/20 07:32 SP (Rec: 06/10/20 08:23 SP [id number]) Out-Patient Physical Therapy Visit Information Visit Information Visit Type Treatment Note Visit Start Time 07:32 Visit Stop Time 08:25 Total Visit Minutes 53 Visit Number 13 Number of COMMUNITY SERVICES OFFICER Visits 1 PT-OP-B Current Condition Start: 04/25/20 08:08 Freq: Status: Active Protocol: Document 04/25/20 11:18 SAK (Rec: 04/25/20 12:19 SAK [id number]) Current Condition History of Current Condition Onset Date 1 year Current Complaints pain right heel. History of Current Condition Reports approximately 1 year ago walking in cardiac rehab, took a step and felt something pop in the back of her right foot, has had pain in her heel since, unable to wear shoes with back, swollen at heel. Pain is constant, worse with any pressure. Can't take walks, no exercise bike with Covid19. Has been doing foot and ankle ROM, heat, ice as recommended by her doctor. Prior treatment for compression fracture right foot requiring the use of a boot. Has cane but tries not to use. Has difficulty keeping compression socks from rolling down so she doesn't use. Foot pain complicated by severe back pain and right sciatica. Prior Treatments and Tests Patient reports x-ray at [facility] showed bone spur in her right heel. Has neuropathy in feet. 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 It gets worse as walk further. PT-OP-G Mobility & Gait Start: 04/25/20 08:08 Freq: Status: Active Protocol: Document 04/25/20 11:18 SAK (Rec: 04/25/20 16:55 SAK [id number]) OP Gait Assessment Assistive Devices Assistive Device None Gait Deviations General Gait Pattern Antalgic Factors Limiting Gait Function Factors Limiting Gait Function Pain PT-OP-J Posture/Palpation/Skin Start: 04/25/20 08:08 Freq: Status: Active Protocol: Document 04/25/20 11:18 SAK (Rec: 04/25/20 16:55 SAK [id number]) Posture Evaluation Position Standing Ankle/Foot Posture (L) Pronated,(R) Pronated Foot Arch (L) Low Arch,(R) Low Arch Palpation Assessment Location posterior right heel Palpation Findings Edema,Tenderness Skin Assessment Edema Assessment right heel, retromalleolar Edema Type Non-Pitting Edema Degree 2+ Edema Appearance Puffy Circumference Measurement 4 Location calf right Measurement (Centimeters) 48.8 3 Location calf left Measurement (Centimeters) 46.6 2 Location malleoli right Measurement (Centimeters) 28.2 1 Location malleoli left Measurement (Centimeters) 28.9 PT-OP-K Range of Motion Start: 04/25/20 08:08 Freq: Status: Active Protocol: Document 04/25/20 11:18 SAK (Rec: 04/25/20 16:55 SAK [id number]) Ankle and Foot Goniometric Range of Motion Ankle and Foot Right Active Ankle/Foot ROM WFL Yes Left Active Ankle/Foot ROM WFL No Dorsiflexion with Knee Flexed 5 Dorsiflexion with Knee Extended 0 Ankle and Foot ROM Limitations ROM Limitations Soft Tissue Tightness,Pain PT-OP-M Strength Start: 04/25/20 08:08 Freq: Status: Active Protocol: Document 04/25/20 11:18 SAK (Rec: 04/25/20 16:55 [facility] [id number]) Ankle/Foot Strength Ankle and Foot Manual Muscle Testing Right Dorsiflexion (L4) 5 Normal Plantarflexion (S1) 5 Normal Inversion 5 Normal Eversion (S1) 5 Normal Comments pain on left Left Dorsiflexion (L4) 4 Good Plantarflexion (S1) 4- Good- Inversion 4 Good Eversion (S1) 4 Good PT-OP-Q Treatments Start: 04/25/20 08:08 Freq: Status: Active Protocol: Document 06/10/20 07:32 SP (Rec: 06/10/20 08:23 SP [id number]) Cardio Equipment Recumbent Elliptical (BiodNubity) Duration (Minutes) 6 Resistance 4 Seat Position 7 Gym Equipment Shuttle Recovery leg press Details for partial WB activities Resistance 50# x5, 75# x2 Shuttle Recovery Platform Stable Reps/Time reg position then forefoot to push off, no pain noted Therapeutic Exercises Sitting Exercises BAPS board Sitting Exercise Name forward/back, side, circles Equipment Used L3 BAPS Reps/Minutes 10x each motion Comments in standing short foot Sitting Exercise Name arch lift Side bilateral Reps/Minutes x10 big toe extension Sitting Exercise Name foot on ground Side left Comments with ankle neutral progressed to slight DF Standing Exercises stagger stance uneven Standing Exercise Name stagger stance Equipment Used blue foam at rail Comments cued COG foot triangle STUART to decrease heel pain at heel insertion SLS Standing Exercise Name R and L Equipment Used rail contact as needed Comments 11 sec LLE, 6 sec RLE, cued glut and core facilitation assist balance ankle board Standing Exercise Name lateral Equipment Used at rail Reps/Minutes x5 reps Comments cued COG over STUART foot triangle RON board Standing Exercise Name Calf stretch Side bilateral Reps/Minutes 30 hold Manual Therapy Treatment Taping 1 Body Location L heel and calf Comments cover roll and leukotape achilles taping, kines taping heel to calf PT-OP-R Modalities Start: 04/25/20 08:08 Freq: Status: Active Protocol: Document 06/10/20 07:32 SP (Rec: 06/10/20 08:23 SP [id number]) Hot Pack/Cold Pack Treatment Cold Pack Comments cryocuff 10 min L ankle/ achilles supine assist pain achilles insertion PT-OP-T Assessment and Plan Start: 04/25/20 08:08 Freq: Status: Active Protocol: Document 06/10/20 07:32 SP (Rec: 06/10/20 08:23 SP [id number]) Physical Therapy Assessment Goals Four Impairment weakness left calf with atrophy Operations Engineer Goal (LTG) Improve strength left ankle motions to at least 4+/5, with no greater than 1 cm difference in muscle bulk in calves. LTG Duration 06/24/20 Three Impairment antalgic gait Mcc Goal (LTG) patient to resume ability to take walks with minimal to no pain or limp, using least restrictive assistive device as needed LTG Duration 06/24/20 Two Impairment edema Mcc Goal (LTG) Minimal to no edema left heel and malleolar region LTG Duration 06/24/20 One Impairment pain Mcc Goal (LTG) Decrease pain to no greater than 2/10 left heel LTG Duration 06/24/20 Assessment Summary Assessment Pt tolerated ther ex at home, good form during tx, increase BAPS L4 next tx. Introduced SLS and rocker board Med/lat at rail with cuing for COG over STUART with core and glut faciliitation to improved balance and reported decreased discomfort to L heel. Pt reported posterior heel and calf taping helped with decreased pull on distal achilles. Physical Therapy Plan Frequency and Duration Frequency of Treatment 2x/Week Duration of Treatment 8 wks Plan of Care Start Date 04/25/20 Plan of Care End Date 06/24/20 Therapeutic Interventions Therapeutic Interventions Aquatic Therapy,Balance Training,Gait Training,Home Exercise Program,Joint Mobilizations,Manual Therapy, Neuromuscular Re-education, Patient/Caregiver Education, Self-Care/Home Management,Soft Tissue Mobilization,Taping, Therapeutic Activities, Therapeutic Exercises Next Visit Focus/Plan Next Note Type Treatment Note Next Visit Plan Assess response to last tx. Continue to progress with ther ex and manual techniques as possible. Patient encouraged to check pool schedule as they are opening up due to PT recommendation for aquatic exercise, will schedule aquatic PT when state at Phase III. BAPS Lv 4 next tx.
--- NOTE | 2020-06-12 16:36 | PT.OTN ---
Current Diagnoses Muscle wasting and atrophy, not elsewhere classified, left lower leg (06/12/20) Unspecified disorder of synovium and tendon, left ankle and foot (06/12/20) Pain in unspecified foot (06/12/20) Other abnormalities of gait and mobility (06/12/20) Weakness (06/12/20) Physical Therapy Treatment Note PT-OP-A Visit Information Start: 04/25/20 08:08 Freq: Status: Active Protocol: Document 06/12/20 14:35 SAK (Rec: 06/12/20 14:54 SAK [id number]) Out-Patient Physical Therapy Visit Information Visit Information Visit Type Treatment Note Visit Start Time 14:30 Visit Stop Time 15:16 Total Visit Minutes 46 Visit Number 13 Number of PONY ROLL FINISHER Visits 1 PT-OP-B Current Condition Start: 04/25/20 08:08 Freq: Status: Active Protocol: Document 04/25/20 11:18 SAK (Rec: 04/25/20 12:19 SAK [id number]) Current Condition History of Current Condition Onset Date 1 year Current Complaints pain right heel. History of Current Condition Reports approximately 1 year ago walking in cardiac rehab, took a step and felt something pop in the back of her right foot, has had pain in her heel since, unable to wear shoes with back, swollen at heel. Pain is constant, worse with any pressure. Can't take walks, no exercise bike with Covid19. Has been doing foot and ankle ROM, heat, ice as recommended by her doctor. Prior treatment for compression fracture right foot requiring the use of a boot. Has cane but tries not to use. Has difficulty keeping compression socks from rolling down so she doesn't use. Foot pain complicated by severe back pain and right sciatica. Prior Treatments and Tests Patient reports x-ray at [facility] showed bone spur in her right heel. Has neuropathy in feet. 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 Tape immediately came off calf. Pain level 5-6/10 at worst, 1- 2/[address] Longoria regarding her low back pain tomorrow, considering surgery in July. States aquatic exercise is on my list to do but hasn't made it to the pool yet. PT-OP-G Mobility & Gait Start: 04/25/20 08:08 Freq: Status: Active Protocol: Document 04/25/20 11:18 SAK (Rec: 04/25/20 16:55 [facility] [id number]) OP Gait Assessment Assistive Devices Assistive Device None Gait Deviations General Gait Pattern Antalgic Factors Limiting Gait Function Factors Limiting Gait Function Pain PT-OP-J Posture/Palpation/Skin Start: 04/25/20 08:08 Freq: Status: Active Protocol: Document 04/25/20 11:18 SAK (Rec: 04/25/20 16:55 [facility] [id number]) Posture Evaluation Position Standing Ankle/Foot Posture (L) Pronated,(R) Pronated Foot Arch (L) Low Arch,(R) Low Arch Palpation Assessment Location posterior right heel Palpation Findings Edema,Tenderness Skin Assessment Edema Assessment right heel, retromalleolar Edema Type Non-Pitting Edema Degree 2+ Edema Appearance Puffy Circumference Measurement 4 Location calf right Measurement (Centimeters) 48.8 3 Location calf left Measurement (Centimeters) 46.6 2 Location malleoli right Measurement (Centimeters) 28.2 1 Location malleoli left Measurement (Centimeters) 28.9 PT-OP-K Range of Motion Start: 04/25/20 08:08 Freq: Status: Active Protocol: Document 04/25/20 11:18 SAK (Rec: 04/25/20 16:55 [facility] [id number]) Ankle and Foot Goniometric Range of Motion Ankle and Foot Right Active Ankle/Foot ROM WFL Yes Left Active Ankle/Foot ROM WFL No Dorsiflexion with Knee Flexed 5 Dorsiflexion with Knee Extended 0 Ankle and Foot ROM Limitations ROM Limitations Soft Tissue Tightness,Pain PT-OP-M Strength Start: 04/25/20 08:08 Freq: Status: Active Protocol: Document 04/25/20 11:18 SAK (Rec: 04/25/20 16:55 [facility] [id number]) Ankle/Foot Strength Ankle and Foot Manual Muscle Testing Right Dorsiflexion (L4) 5 Normal Plantarflexion (S1) 5 Normal Inversion 5 Normal Eversion (S1) 5 Normal Comments pain on left Left Dorsiflexion (L4) 4 Good Plantarflexion (S1) 4- Good- Inversion 4 Good Eversion (S1) 4 Good PT-OP-Q Treatments Start: 04/25/20 08:08 Freq: Status: Active Protocol: Document 06/12/20 14:35 SAK (Rec: 06/12/20 14:54 [facility] [id number]) Cardio Equipment Recumbent Elliptical (Biodex) Duration (Minutes) 6 Resistance 4 Seat Position 7 Gym Equipment Shuttle Recovery Unilateral Squats Resistance 37 Shuttle Recovery Platform Stable Reps/Time 10x leg press Details for partial WB activities Resistance 75# Shuttle Recovery Platform Stable Reps/Time 10x Therapeutic Exercises Sitting Exercises BAPS board Sitting Exercise Name forward/back, side, circles Equipment Used L4 BAPS Reps/Minutes 10x each motion Comments in standing short foot Sitting Exercise Name arch lift Side bilateral Reps/Minutes x10 big toe extension Sitting Exercise Name foot on ground Side left Comments with ankle neutral progressed to slight DF calf stretch Sitting Exercise Name gait belt for gastroc, knee flexed soleus Side left Reps/Minutes 30 x 2 Comments painfree ROM Standing Exercises RON board Comments painful Manual Therapy Treatment Taping 1 Body Location L heel and calf Comments cover roll and leukotape achilles taping, kines taping heel to calf Self-Care/Home Management Treatment Activities Self-Care/Home Management Activities use of tennis or raquetball for self-massage plantar fascia, preferred raquetball PT-OP-R Modalities Start: 04/25/20 08:08 Freq: Status: Active Protocol: Document 06/12/20 14:35 SAK (Rec: 06/12/20 14:54 [facility] [id number]) Hot Pack/Cold Pack Treatment Cold Pack Comments not done due to patient daughter waiting; she stated she would ice at home. Ultrasound Therapy Treatment left heel Patient Position Sidelying Coupling Medium Ultrasound Gel Applicator Size (cm2) 2 Mode Setting Pulsed Duty Cycle 50% Intensity Setting (w/cm2) 1.0 Comments heel, retromalleolar PT-OP-T Assessment and Plan Start: 04/25/20 08:08 Freq: Status: Active Protocol: Document 06/12/20 14:35 [facility] (Rec: 06/12/20 14:54 [facility] [id number]) Physical Therapy Assessment Goals Four Impairment weakness left calf with atrophy Prison Goal (LTG) Improve strength left ankle motions to at least 4+/5, with no greater than 1 cm difference in muscle bulk in calves. LTG Duration 06/24/20 Three Impairment antalgic gait Prior Authorization Nurse Goal (LTG) patient to resume ability to take walks with minimal to no pain or limp, using least restrictive assistive device as needed LTG Duration 06/24/20 Two Impairment edema Prior Authorization Nurse Goal (LTG) Minimal to no edema left heel and malleolar region LTG Duration 06/24/20 One Impairment pain Prior Authorization Nurse Goal (LTG) Decrease pain to no greater than 2/10 left heel LTG Duration 06/24/20 Assessment Summary Assessment Patient continues to have pain in her left heel, usually improved with PT. Limited ability to ambulate. Feel aquatic exercise most appropriate for this patient due to unweighting of her foot . Also have recommended use of cane but she has in car but doesn't tend to use. Compliant to HEP and use of ice at home. Resumed ultrasound due to reported prior benefit. Physical Therapy Plan Frequency and Duration Frequency of Treatment 2x/Week Duration of Treatment 8 wks Plan of Care Start Date 04/25/20 Plan of Care End Date 06/24/20 Therapeutic Interventions Therapeutic Interventions Aquatic Therapy,Balance Training,Gait Training,Home Exercise Program,Joint Mobilizations,Manual Therapy, Neuromuscular Re-education, Patient/Caregiver Education, Self-Care/Home Management,Soft Tissue Mobilization,Taping, Therapeutic Activities, Therapeutic Exercises Next Visit Focus/Plan Next Note Type Treatment Note Next Visit Plan Continue PT to decrease pain left heel and foot and increase her tolerance to standing and walking.
--- NOTE | 2020-06-18 12:02 | PT.OTN ---
Current Diagnoses Muscle wasting and atrophy, not elsewhere classified, left lower leg (06/18/20) Unspecified disorder of synovium and tendon, left ankle and foot (06/18/20) Pain in unspecified foot (06/18/20) Other abnormalities of gait and mobility (06/18/20) Weakness (06/18/20) Physical Therapy Treatment Note PT-OP-A Visit Information Start: 04/25/20 08:08 Freq: Status: Active Protocol: Document 06/18/20 11:19 HH (Rec: 06/18/20 12:02 HH [id number]) Out-Patient Physical Therapy Visit Information Visit Information Visit Type Treatment Note Visit Start Time 11:20 Visit Stop Time 12:00 Total Visit Minutes 40 Visit Number 14 Number of BOILER CONTROL ROOM OPERATOR Visits 0 PT-OP-B Current Condition Start: 04/25/20 08:08 Freq: Status: Active Protocol: Document 04/25/20 11:18 SAK (Rec: 04/25/20 12:19 SAK [id number]) Current Condition History of Current Condition Onset Date 1 year Current Complaints pain right heel. History of Current Condition Reports approximately 1 year ago walking in cardiac rehab, took a step and felt something pop in the back of her right foot, has had pain in her heel since, unable to wear shoes with back, swollen at heel. Pain is constant, worse with any pressure. Can't take walks, no exercise bike with Covid19. Has been doing foot and ankle ROM, heat, ice as recommended by her doctor. Prior treatment for compression fracture right foot requiring the use of a boot. Has cane but tries not to use. Has difficulty keeping compression socks from rolling down so she doesn't use. Foot pain complicated by severe back pain and right sciatica. Prior Treatments and Tests Patient reports x-ray at [facility] showed bone spur in her right heel. Has neuropathy in feet. 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 I am able to walk more but my back started bothering. The back surgery changed to September. PT-OP-G Mobility & Gait Start: 04/25/20 08:08 Freq: Status: Active Protocol: Document 04/25/20 11:18 SAK (Rec: 04/25/20 16:55 SAK [id number]) OP Gait Assessment Assistive Devices Assistive Device None Gait Deviations General Gait Pattern Antalgic Factors Limiting Gait Function Factors Limiting Gait Function Pain PT-OP-J Posture/Palpation/Skin Start: 04/25/20 08:08 Freq: Status: Active Protocol: Document 04/25/20 11:18 SAK (Rec: 04/25/20 16:55 SAK [id number]) Posture Evaluation Position Standing Ankle/Foot Posture (L) Pronated,(R) Pronated Foot Arch (L) Low Arch,(R) Low Arch Palpation Assessment Location posterior right heel Palpation Findings Edema,Tenderness Skin Assessment Edema Assessment right heel, retromalleolar Edema Type Non-Pitting Edema Degree 2+ Edema Appearance Puffy Circumference Measurement 4 Location calf right Measurement (Centimeters) 48.8 3 Location calf left Measurement (Centimeters) 46.6 2 Location malleoli right Measurement (Centimeters) 28.2 1 Location malleoli left Measurement (Centimeters) 28.9 PT-OP-K Range of Motion Start: 04/25/20 08:08 Freq: Status: Active Protocol: Document 04/25/20 11:18 SAK (Rec: 04/25/20 16:55 SAK [id number]) Ankle and Foot Goniometric Range of Motion Ankle and Foot Right Active Ankle/Foot ROM WFL Yes Left Active Ankle/Foot ROM WFL No Dorsiflexion with Knee Flexed 5 Dorsiflexion with Knee Extended 0 Ankle and Foot ROM Limitations ROM Limitations Soft Tissue Tightness,Pain PT-OP-M Strength Start: 04/25/20 08:08 Freq: Status: Active Protocol: Document 04/25/20 11:18 [facility] (Rec: 04/25/20 16:55 [facility] [id number]) Ankle/Foot Strength Ankle and Foot Manual Muscle Testing Right Dorsiflexion (L4) 5 Normal Plantarflexion (S1) 5 Normal Inversion 5 Normal Eversion (S1) 5 Normal Comments pain on left Left Dorsiflexion (L4) 4 Good Plantarflexion (S1) 4- Good- Inversion 4 Good Eversion (S1) 4 Good PT-OP-Q Treatments Start: 04/25/20 08:08 Freq: Status: Active Protocol: Document 06/18/20 11:19 (Rec: 06/18/20 12:02 [id number]) Gym Equipment Shuttle Recovery Unilateral Squats Resistance 37 Shuttle Recovery Platform Stable Reps/Time 10x leg press Details for partial WB activities Resistance 75# Shuttle Recovery Platform Stable Reps/Time 10x Therapeutic Exercises Sitting Exercises short foot Sitting Exercise Name arch lift Side bilateral Reps/Minutes x10 big toe extension Sitting Exercise Name foot on ground Side left Comments with ankle neutral progressed to slight DF PF/DF Sitting Exercise Name on blue disc Side bilateral Reps/Minutes 2 mins Comments ankle cirlces first the DF PF Standing Exercises ankle rock Standing Exercise Name L foot on blue pad, AP shift Side left Reps/Minutes 5 mins Comments mid stance to preswing phase ankle board Standing Exercise Name lateral, sagittal Equipment Used no support Reps/Minutes 4 mins Comments cued COG over STUART, no discomfort noted Manual Therapy Treatment Soft Tissue Mobilization achilles tendon insertion Body Location medial insertion Mobilization Type Sustained Pressure,Trigger Point Release Intensity/Depth Moderate Body Position Sitting Comments reduced pain noted. PT-OP-R Modalities Start: 04/25/20 08:08 Freq: Status: Active Protocol: Document 06/12/20 14:35 [facility] (Rec: 06/12/20 14:54 [facility] [id number]) Hot Pack/Cold Pack Treatment Cold Pack Comments not done due to patient daughter waiting; she stated she would ice at home. Ultrasound Therapy Treatment left heel Patient Position Sidelying Coupling Medium Ultrasound Gel Applicator Size (cm2) 2 Mode Setting Pulsed Duty Cycle 50% Intensity Setting (w/cm2) 1.0 Comments heel, retromalleolar PT-OP-T Assessment and Plan Start: 04/25/20 08:08 Freq: Status: Active Protocol: Document 06/18/20 11:19 (Rec: 06/18/20 12:02 [id number]) Physical Therapy Assessment Goals Four Impairment weakness left calf with atrophy Social Secretary Goal (LTG) Improve strength left ankle motions to at least 4+/5, with no greater than 1 cm difference in muscle bulk in calves. LTG Duration 06/24/20 Three Impairment antalgic gait Social Secretary Goal (LTG) patient to resume ability to take walks with minimal to no pain or limp, using least restrictive assistive device as needed LTG Duration 06/24/20 Two Impairment edema Snf Goal (LTG) Minimal to no edema left heel and malleolar region LTG Duration 06/24/20 One Impairment pain Social Secretary Goal (LTG) Decrease pain to no greater than 2/10 left heel LTG Duration 06/24/20 Assessment Summary Assessment Pt brought in her SAS sandals with back strap that does not irritate her heel with good foot support. She was able to teetee most therex and gait trianing without discomfort. Recommended her to cont wear them for walking Physical Therapy Plan Next Visit Focus/Plan Next Note Type Treatment Note Next Visit Plan Continue PT to decrease pain left heel and foot and increase her tolerance to standing and walking.
--- NOTE | 2020-06-20 12:13 | PT.OPPOC ---
Physical, Occupational & Speech Therapy At [facility] Current Diagnoses Muscle wasting and atrophy, not elsewhere classified, left lower leg (06/20/20) Unspecified disorder of synovium and tendon, left ankle and foot (06/20/20) Pain in unspecified foot (06/20/20) Other abnormalities of gait and mobility (06/20/20) Weakness (06/20/20) Visit Care Team Role Provider Type Faustino Montesinos MD Primary Care Provider Physician Specialty: Internal Medicine Address: [address] [place] [address], [id number] Email: [email or web address] Dang DPM Attending Provider Non-Staff Referring Provider Specialty: Podiatry Address: [address] [place] [address], [id number] Email: Plan Of Care PT-OP-T Assessment and Plan Start: 04/25/20 08:08 Freq: Status: Active Protocol: Document 06/20/20 09:46 (Rec: 06/20/20 12:03 [id number]) Physical Therapy Assessment Goals steps climibing Web Software Engineer Goal (LTG) Pt will be able to climb steps without handrails so pt can go through steps from the backyard. LTG Duration 8 weeks activity tolerance Short Term Goal (STG) Pt will be able to teetee 4 miles in total a week with pain no more than 2/10 STG Duration 4 weeks Web Software Engineer Goal (LTG) pt will be able to teetee 5 miles in total a week with pain no more than 2/10 LTG Duration 8 weeks Four Impairment weakness left calf with atrophy Short Term Goal (STG) 06/20 goal met strength at 4+/5 for L ankle and big toe with full ROM. Web Software Engineer Goal (LTG) Improve strength left ankle motions to at least 4+/5, with no greater than 1 cm difference in muscle bulk in calves. LTG Duration 06/24/20 Three Impairment antalgic gait Short Term Goal (STG) 06/20 goal met Pt has not been using any assistive device during rehab. Web Software Engineer Goal (LTG) patient to resume ability to take walks with minimal to no pain or limp, using least restrictive assistive device as needed LTG Duration 06/24/20 Two Impairment edema Short Term Goal (STG) 06/20 minimal edema noted but cont to improve. Web Software Engineer Goal (LTG) Minimal to no edema left heel and malleolar region LTG Duration 06/24/20 One Impairment pain Short Term Goal (STG) 06/20 goal met pt states 1/10 pain in general , and 2/10 for walking but sometimes went up to 4/10 Web Software Engineer Goal (LTG) Decrease pain to no greater than 2/10 left heel LTG Duration 06/24/20 Assessment Summary Assessment Reassessment with pt today. Pt has improved ROM, ankle strength, reduced edema and activity tolerance since IE. POC will cont to focus on building activity tolerance from gravity eliminated position to gravity position. But because pt is obese, along with back and hip pain, her rehab progress is slow and cont to need skilled therapy to appropriately increase her tolerance through strengthening and ex programming. Cont POC 2x/week for 4 weeks then once a week for 4 weeks. See new goals. Physical Therapy Plan Frequency and Duration Frequency of Treatment 2x/Week Duration of Treatment 8 wks Plan of Care Start Date 06/20/20 Plan of Care End Date 08/19/20 Next Visit Focus/Plan Next Note Type Treatment Note Next Visit Plan Continue PT to decrease pain left heel and foot and increase her tolerance to standing and walking. Plan of Care Dates Plan of Care Start Date 06/20/20 Plan of Care End Date 08/19/20 Electronically Signed by: Yola García, PT 06/20/20 2824 Please Sign and Return: I have reviewed this Plan of Care and certify that the skilled therapy services above are required to meet the patient?s needs. Physician Signature Date Printed Name and Credentials Clinical Instructor Signature Printed Name and Credentials
--- NOTE | 2020-06-20 12:14 | PT.OTN ---
Current Diagnoses Muscle wasting and atrophy, not elsewhere classified, left lower leg (06/20/20) Unspecified disorder of synovium and tendon, left ankle and foot (06/20/20) Pain in unspecified foot (06/20/20) Other abnormalities of gait and mobility (06/20/20) Weakness (06/20/20) Physical Therapy Treatment Note PT-OP-A Visit Information Start: 04/25/20 08:08 Freq: Status: Active Protocol: Document 06/20/20 09:46 HH (Rec: 06/20/20 12:03 HH [id number]) Out-Patient Physical Therapy Visit Information Visit Information Visit Type Treatment Note Visit Start Time 09:48 Visit Stop Time 10:30 Total Visit Minutes 42 Visit Number 15 Number of RN DOCUMENT IMPROVEMENT Visits 0 PT-OP-B Current Condition Start: 04/25/20 08:08 Freq: Status: Active Protocol: Document 04/25/20 11:18 SAK (Rec: 04/25/20 12:19 SAK [id number]) Current Condition History of Current Condition Onset Date 1 year Current Complaints pain right heel. History of Current Condition Reports approximately 1 year ago walking in cardiac rehab, took a step and felt something pop in the back of her right foot, has had pain in her heel since, unable to wear shoes with back, swollen at heel. Pain is constant, worse with any pressure. Can't take walks, no exercise bike with Covid19. Has been doing foot and ankle ROM, heat, ice as recommended by her doctor. Prior treatment for compression fracture right foot requiring the use of a boot. Has cane but tries not to use. Has difficulty keeping compression socks from rolling down so she doesn't use. Foot pain complicated by severe back pain and right sciatica. Prior Treatments and Tests Patient reports x-ray at [facility] showed bone spur in her right heel. Has neuropathy in feet. 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 PT-OP-G Mobility & Gait Start: 04/25/20 08:08 Freq: Status: Active Protocol: Document 04/25/20 11:18 SAK (Rec: 04/25/20 16:55 SAK [id number]) OP Gait Assessment Assistive Devices Assistive Device None Gait Deviations General Gait Pattern Antalgic Factors Limiting Gait Function Factors Limiting Gait Function Pain PT-OP-J Posture/Palpation/Skin Start: 04/25/20 08:08 Freq: Status: Active Protocol: Document 04/25/20 11:18 SAK (Rec: 04/25/20 16:55 SAK [id number]) Posture Evaluation Position Standing Ankle/Foot Posture (L) Pronated,(R) Pronated Foot Arch (L) Low Arch,(R) Low Arch Palpation Assessment Location posterior right heel Palpation Findings Edema,Tenderness Skin Assessment Edema Assessment right heel, retromalleolar Edema Type Non-Pitting Edema Degree 2+ Edema Appearance Puffy Circumference Measurement 4 Location calf right Measurement (Centimeters) 48.8 3 Location calf left Measurement (Centimeters) 46.6 2 Location malleoli right Measurement (Centimeters) 28.2 1 Location malleoli left Measurement (Centimeters) 28.9 PT-OP-K Range of Motion Start: 04/25/20 08:08 Freq: Status: Active Protocol: Document 04/25/20 11:18 SAK (Rec: 04/25/20 16:55 SAK [id number]) Ankle and Foot Goniometric Range of Motion Ankle and Foot Right Active Ankle/Foot ROM WFL Yes Left Active Ankle/Foot ROM WFL No Dorsiflexion with Knee Flexed 5 Dorsiflexion with Knee Extended 0 Ankle and Foot ROM Limitations ROM Limitations Soft Tissue Tightness,Pain PT-OP-M Strength Start: 04/25/20 08:08 Freq: Status: Active Protocol: Document 04/25/20 11:18 [facility] (Rec: 04/25/20 16:55 [facility] [id number]) Ankle/Foot Strength Ankle and Foot Manual Muscle Testing Right Dorsiflexion (L4) 5 Normal Plantarflexion (S1) 5 Normal Inversion 5 Normal Eversion (S1) 5 Normal Comments pain on left Left Dorsiflexion (L4) 4 Good Plantarflexion (S1) 4- Good- Inversion 4 Good Eversion (S1) 4 Good PT-OP-Q Treatments Start: 04/25/20 08:08 Freq: Status: Active Protocol: Document 06/20/20 09:46 HH (Rec: 06/20/20 12:03 [id number]) Cardio Equipment Recumbent Stepper (Sci-Fit) Duration (Minutes) 8 Resistance 5 Seat Position 8 Gym Equipment Shuttle Recovery heel raise Resistance 37 Shuttle Recovery Platform Stable Reps/Time 10 x2 Unilateral Squats Resistance 50 Shuttle Recovery Platform Stable Reps/Time 10x 2 Therapeutic Exercises Sitting Exercises short foot Sitting Exercise Name arch lift Side bilateral Reps/Minutes x10 big toe extension Sitting Exercise Name foot on ground Side left Comments with ankle neutral progressed to slight DF Standing Exercises ankle rock Standing Exercise Name L foot on blue pad, AP shift Side left Reps/Minutes 5 mins Comments mid stance to preswing phase ankle board Standing Exercise Name lateral, sagittal Equipment Used no support Reps/Minutes 4 mins Comments cued COG over STUART, no discomfort noted Manual Therapy Treatment Soft Tissue Mobilization achilles tendon insertion Body Location medial insertion Mobilization Type Sustained Pressure,Trigger Point Release Intensity/Depth Moderate Body Position Sitting Comments reduced pain noted. PT-OP-R Modalities Start: 04/25/20 08:08 Freq: Status: Active Protocol: Document 06/12/20 14:35 [facility] (Rec: 06/12/20 14:54 [facility] [id number]) Hot Pack/Cold Pack Treatment Cold Pack Comments not done due to patient daughter waiting; she stated she would ice at home. Ultrasound Therapy Treatment left heel Patient Position Sidelying Coupling Medium Ultrasound Gel Applicator Size (cm2) 2 Mode Setting Pulsed Duty Cycle 50% Intensity Setting (w/cm2) 1.0 Comments heel, retromalleolar PT-OP-T Assessment and Plan Start: 04/25/20 08:08 Freq: Status: Active Protocol: Document 06/20/20 09:46 (Rec: 06/20/20 12:03 HH [id number]) Physical Therapy Assessment Goals steps climibing Extruder Operator Multiple Goal (LTG) Pt will be able to climb steps without handrails so pt can go through steps from the backyard. LTG Duration 8 weeks activity tolerance Short Term Goal (STG) Pt will be able to teetee 4 miles in total a week with pain no more than 2/10 STG Duration 4 weeks Extruder Operator Multiple Goal (LTG) pt will be able to teetee 5 miles in total a week with pain no more than 2/10 LTG Duration 8 weeks Four Impairment weakness left calf with atrophy Short Term Goal (STG) 06/20 goal met strength at 4+/5 for L ankle and big toe with full ROM. Extruder Operator Multiple Goal (LTG) Improve strength left ankle motions to at least 4+/5, with no greater than 1 cm difference in muscle bulk in calves. LTG Duration 06/24/20 Three Impairment antalgic gait Short Term Goal (STG) 06/20 goal met Pt has not been using any assistive device during rehab. Extruder Operator Multiple Goal (LTG) patient to resume ability to take walks with minimal to no pain or limp, using least restrictive assistive device as needed LTG Duration 06/24/20 Two Impairment edema Short Term Goal (STG) 06/20 minimal edema noted but cont to improve. Extruder Operator Multiple Goal (LTG) Minimal to no edema left heel and malleolar region LTG Duration 06/24/20 One Impairment pain Short Term Goal (STG) 06/20 goal met pt states 1/10 pain in general , and 2/10 for walking but sometimes went up to 4/10 Group Home Goal (LTG) Decrease pain to no greater than 2/10 left heel LTG Duration 06/24/20 Assessment Summary Assessment Reassessment with pt today. Pt has improved ROM, ankle strength, reduced edema and activity tolerance since IE. POC will cont to focus on building activity tolerance from gravity eliminated position to gravity position. But because pt is obese, along with back and hip pain, her rehab progress is slow and cont to need skilled therapy to appropriately increase her tolerance through strengthening and ex programming. Cont POC 2x/week for 4 weeks then once a week for 4 weeks. See new goals. Physical Therapy Plan Frequency and Duration Frequency of Treatment 2x/Week Duration of Treatment 8 wks Plan of Care Start Date 06/20/20 Plan of Care End Date 08/19/20 Next Visit Focus/Plan Next Note Type Treatment Note Next Visit Plan Continue PT to decrease pain left heel and foot and increase her tolerance to standing and walking.
--- NOTE | 2020-06-25 16:34 | PT.OTN ---
Current Diagnoses Muscle wasting and atrophy, not elsewhere classified, left lower leg (06/25/20) Unspecified disorder of synovium and tendon, left ankle and foot (06/25/20) Pain in unspecified foot (06/25/20) Other abnormalities of gait and mobility (06/25/20) Weakness (06/25/20) Physical Therapy Treatment Note PT-OP-A Visit Information Start: 04/25/20 08:08 Freq: Status: Active Protocol: Document 06/25/20 14:31 SAK (Rec: 06/25/20 15:08 SAK [id number]) Out-Patient Physical Therapy Visit Information Visit Information Visit Type Treatment Note Visit Start Time 14:30 Visit Stop Time 15:15 Total Visit Minutes 45 Visit Number 16 Number of RN URGENT CARE Visits 0 PT-OP-B Current Condition Start: 04/25/20 08:08 Freq: Status: Active Protocol: Document 04/25/20 11:18 SAK (Rec: 04/25/20 12:19 SAK [id number]) Current Condition History of Current Condition Onset Date 1 year Current Complaints pain right heel. History of Current Condition Reports approximately 1 year ago walking in cardiac rehab, took a step and felt something pop in the back of her right foot, has had pain in her heel since, unable to wear shoes with back, swollen at heel. Pain is constant, worse with any pressure. Can't take walks, no exercise bike with Covid19. Has been doing foot and ankle ROM, heat, ice as recommended by her doctor. Prior treatment for compression fracture right foot requiring the use of a boot. Has cane but tries not to use. Has difficulty keeping compression socks from rolling down so she doesn't use. Foot pain complicated by severe back pain and right sciatica. Prior Treatments and Tests Patient reports x-ray at [facility] showed bone spur in her right heel. Has neuropathy in feet. 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 [id number]) OP-PT Subjective Patient Comments Patient Comments Ordered another pair of the [employer] sandals that fit well. A little over 4 miles per week total walking. States after last session could hardly walk for a couple days, not as bad today. Still not able to wear closed back shoes due to achilles tenderness. PT-OP-G Mobility & Gait Start: 04/25/20 08:08 Freq: Status: Active Protocol: Document 04/25/20 11:18 SAK (Rec: 04/25/20 16:55 [facility] [id number]) OP Gait Assessment Assistive Devices Assistive Device None Gait Deviations General Gait Pattern Antalgic Factors Limiting Gait Function Factors Limiting Gait Function Pain PT-OP-J Posture/Palpation/Skin Start: 04/25/20 08:08 Freq: Status: Active Protocol: Document 04/25/20 11:18 SAK (Rec: 04/25/20 16:55 [facility] [id number]) Posture Evaluation Position Standing Ankle/Foot Posture (L) Pronated,(R) Pronated Foot Arch (L) Low Arch,(R) Low Arch Palpation Assessment Location posterior right heel Palpation Findings Edema,Tenderness Skin Assessment Edema Assessment right heel, retromalleolar Edema Type Non-Pitting Edema Degree 2+ Edema Appearance Puffy Circumference Measurement 4 Location calf right Measurement (Centimeters) 48.8 3 Location calf left Measurement (Centimeters) 46.6 2 Location malleoli right Measurement (Centimeters) 28.2 1 Location malleoli left Measurement (Centimeters) 28.9 PT-OP-K Range of Motion Start: 04/25/20 08:08 Freq: Status: Active Protocol: Document 04/25/20 11:18 SAK (Rec: 04/25/20 16:55 [facility] [id number]) Ankle and Foot Goniometric Range of Motion Ankle and Foot Right Active Ankle/Foot ROM WFL Yes Left Active Ankle/Foot ROM WFL No Dorsiflexion with Knee Flexed 5 Dorsiflexion with Knee Extended 0 Ankle and Foot ROM Limitations ROM Limitations Soft Tissue Tightness,Pain PT-OP-M Strength Start: 04/25/20 08:08 Freq: Status: Active Protocol: Document 04/25/20 11:18 [facility] (Rec: 04/25/20 16:55 [facility] [id number]) Ankle/Foot Strength Ankle and Foot Manual Muscle Testing Right Dorsiflexion (L4) 5 Normal Plantarflexion (S1) 5 Normal Inversion 5 Normal Eversion (S1) 5 Normal Comments pain on left Left Dorsiflexion (L4) 4 Good Plantarflexion (S1) 4- Good- Inversion 4 Good Eversion (S1) 4 Good PT-OP-Q Treatments Start: 04/25/20 08:08 Freq: Status: Active Protocol: Document 06/25/20 14:31 SAK (Rec: 06/25/20 15:08 [facility] [id number]) Cardio Equipment Recumbent Stepper (Sci-Fit) Duration (Minutes) 10 Resistance 2 Seat Position 8 Other 1.12 Gym Equipment Shuttle Recovery heel raise Resistance 37 Shuttle Recovery Platform Stable Reps/Time 10 x2 Unilateral Squats Resistance 50 Shuttle Recovery Platform Stable Reps/Time 10x 2 leg press Details for partial WB activities Resistance 75# Shuttle Recovery Platform Stable Reps/Time 10x2 Shuttle Balance chains red Details balance and weight shift Comments AP, side/side Therapeutic Exercises Sitting Exercises BAPS board Sitting Exercise Name forward/back, side, circles Equipment Used L4 BAPS Reps/Minutes 10x each motion Comments in standing short foot Sitting Exercise Name arch lift Side bilateral Reps/Minutes x10 big toe extension Sitting Exercise Name foot on ground Side left Comments with ankle neutral progressed to slight DF calf stretch Sitting Exercise Name gait belt for gastroc, knee flexed soleus Side left Reps/Minutes 30 x 2 Comments painfree ROM Manual Therapy Treatment Soft Tissue Mobilization calf Body Location L lat &med borders & achilles Mobilization Type Myofascial Release,Rolling, Strumming Intensity/Depth Moderate Body Position Hooklying Comments + achilles tendon distal insertion. (medial side) PT-OP-R Modalities Start: 04/25/20 08:08 Freq: Status: Active Protocol: Document 06/12/20 14:35 SAK (Rec: 06/12/20 14:54 [facility] [id number]) Hot Pack/Cold Pack Treatment Cold Pack Comments not done due to patient daughter waiting; she stated she would ice at home. Ultrasound Therapy Treatment left heel Patient Position Sidelying Coupling Medium Ultrasound Gel Applicator Size (cm2) 2 Mode Setting Pulsed Duty Cycle 50% Intensity Setting (w/cm2) 1.0 Comments heel, retromalleolar PT-OP-T Assessment and Plan Start: 04/25/20 08:08 Freq: Status: Active Protocol: Document 06/25/20 14:31 [facility] (Rec: 06/25/20 15:08 [facility] [id number]) Physical Therapy Assessment Goals steps climibing Fpc Goal (LTG) Pt will be able to climb steps without handrails so pt can go through steps from the backyard. LTG Duration 8 weeks activity tolerance Short Term Goal (STG) Pt will be able to teetee 4 miles in total a week with pain no more than 2/10 STG Duration 4 weeks Claim Inspector Goal (LTG) pt will be able to teetee 5 miles in total a week with pain no more than 2/10 LTG Duration 8 weeks Four Impairment weakness left calf with atrophy Short Term Goal (STG) 06/20 goal met strength at 4+/5 for L ankle and big toe with full ROM. Claim Inspector Goal (LTG) Improve strength left ankle motions to at least 4+/5, with no greater than 1 cm difference in muscle bulk in calves. LTG Duration 06/24/20 Three Impairment antalgic gait Short Term Goal (STG) 06/20 goal met Pt has not been using any assistive device during rehab. Claim Inspector Goal (LTG) patient to resume ability to take walks with minimal to no pain or limp, using least restrictive assistive device as needed LTG Duration 06/24/20 Two Impairment edema Short Term Goal (STG) 06/20 minimal edema noted but cont to improve. Fpc Goal (LTG) Minimal to no edema left heel and malleolar region LTG Duration 06/24/20 One Impairment pain Short Term Goal (STG) 06/20 goal met pt states 1/10 pain in general , and 2/10 for walking but sometimes went up to 4/10 Claim Inspector Goal (LTG) Decrease pain to no greater than 2/10 left heel LTG Duration 06/24/20 Assessment Summary Assessment Improving activity tolerance, good compliance to HEP. Cues for active arch with shuttle leg press improved ability. Physical Therapy Plan Frequency and Duration Frequency of Treatment 2x/Week Duration of Treatment 8 wks Plan of Care Start Date 06/20/20 Plan of Care End Date 08/19/20 Next Visit Focus/Plan Next Note Type Treatment Note Next Visit Plan Continue PT to decrease pain left heel and foot and increase her tolerance to standing and walking.
--- NOTE | 2020-06-27 13:33 | PT.OTN ---
Current Diagnoses Muscle wasting and atrophy, not elsewhere classified, left lower leg (06/27/20) Unspecified disorder of synovium and tendon, left ankle and foot (06/27/20) Pain in unspecified foot (06/27/20) Other abnormalities of gait and mobility (06/27/20) Weakness (06/27/20) Physical Therapy Treatment Note PT-OP-A Visit Information Start: 04/25/20 08:08 Freq: Status: Active Protocol: Document 06/27/20 09:51 SAK (Rec: 06/27/20 10:34 SAK [id number]) Out-Patient Physical Therapy Visit Information Visit Information Visit Type Treatment Note Visit Start Time 09:46 Visit Stop Time 10:34 Total Visit Minutes 48 Visit Number 17 Number of SHIP MATE Visits 0 PT-OP-B Current Condition Start: 04/25/20 08:08 Freq: Status: Active Protocol: Document 04/25/20 11:18 SAK (Rec: 04/25/20 12:19 SAK [id number]) Current Condition History of Current Condition Onset Date 1 year Current Complaints pain right heel. History of Current Condition Reports approximately 1 year ago walking in cardiac rehab, took a step and felt something pop in the back of her right foot, has had pain in her heel since, unable to wear shoes with back, swollen at heel. Pain is constant, worse with any pressure. Can't take walks, no exercise bike with Covid19. Has been doing foot and ankle ROM, heat, ice as recommended by her doctor. Prior treatment for compression fracture right foot requiring the use of a boot. Has cane but tries not to use. Has difficulty keeping compression socks from rolling down so she doesn't use. Foot pain complicated by severe back pain and right sciatica. Prior Treatments and Tests Patient reports x-ray at [facility] showed bone spur in her right heel. Has neuropathy in feet. 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 Stayed home mostly yesterday so minimal steps. Pain not as bad as last week. PT-OP-G Mobility & Gait Start: 04/25/20 08:08 Freq: Status: Active Protocol: Document 04/25/20 11:18 SAK (Rec: 04/25/20 16:55 [facility] [id number]) OP Gait Assessment Assistive Devices Assistive Device None Gait Deviations General Gait Pattern Antalgic Factors Limiting Gait Function Factors Limiting Gait Function Pain PT-OP-J Posture/Palpation/Skin Start: 04/25/20 08:08 Freq: Status: Active Protocol: Document 04/25/20 11:18 SAK (Rec: 04/25/20 16:55 [facility] [id number]) Posture Evaluation Position Standing Ankle/Foot Posture (L) Pronated,(R) Pronated Foot Arch (L) Low Arch,(R) Low Arch Palpation Assessment Location posterior right heel Palpation Findings Edema,Tenderness Skin Assessment Edema Assessment right heel, retromalleolar Edema Type Non-Pitting Edema Degree 2+ Edema Appearance Puffy Circumference Measurement 4 Location calf right Measurement (Centimeters) 48.8 3 Location calf left Measurement (Centimeters) 46.6 2 Location malleoli right Measurement (Centimeters) 28.2 1 Location malleoli left Measurement (Centimeters) 28.9 PT-OP-K Range of Motion Start: 04/25/20 08:08 Freq: Status: Active Protocol: Document 04/25/20 11:18 SAK (Rec: 04/25/20 16:55 [facility] [id number]) Ankle and Foot Goniometric Range of Motion Ankle and Foot Right Active Ankle/Foot ROM WFL Yes Left Active Ankle/Foot ROM WFL No Dorsiflexion with Knee Flexed 5 Dorsiflexion with Knee Extended 0 Ankle and Foot ROM Limitations ROM Limitations Soft Tissue Tightness,Pain PT-OP-M Strength Start: 04/25/20 08:08 Freq: Status: Active Protocol: Document 04/25/20 11:18 [facility] (Rec: 04/25/20 16:55 [facility] [id number]) Ankle/Foot Strength Ankle and Foot Manual Muscle Testing Right Dorsiflexion (L4) 5 Normal Plantarflexion (S1) 5 Normal Inversion 5 Normal Eversion (S1) 5 Normal Comments pain on left Left Dorsiflexion (L4) 4 Good Plantarflexion (S1) 4- Good- Inversion 4 Good Eversion (S1) 4 Good PT-OP-Q Treatments Start: 04/25/20 08:08 Freq: Status: Active Protocol: Document 06/27/20 09:51 SAK (Rec: 06/27/20 10:34 SAK [id number]) Cardio Equipment Recumbent Stepper (Sci-Fit) Duration (Minutes) 10 Resistance 2 Seat Position 8 Other 1.03 mi Gym Equipment Shuttle Recovery heel raise Resistance 37 Shuttle Recovery Platform Stable Reps/Time 10 x1 (painful left today) Unilateral Squats Resistance 50 Shuttle Recovery Platform Stable Reps/Time 10x 2 leg press Details for partial WB activities Resistance 87# Shuttle Recovery Platform Stable Reps/Time 10x2 Shuttle Balance chains red Details balance and weight shift Comments AP, side/side Therapeutic Exercises Sitting Exercises heel raises Equipment Used 4 box Reps/Minutes 10x BAPS board Sitting Exercise Name forward/back, side, circles Equipment Used L4 BAPS Reps/Minutes 10x each motion Comments in standing short foot Sitting Exercise Name arch lift Side bilateral Reps/Minutes x10 PF/DF Sitting Exercise Name tiltboard Side bilateral Reps/Minutes 2 mins calf stretch Sitting Exercise Name gait belt for gastroc, knee flexed soleus Side left Reps/Minutes 30 x 2 Comments painfree ROM Manual Therapy Treatment Taping 1 Body Location L heel and calf Treatment Focus inhibition left gastroc, pain relief Type of Tape cover roll and leukotape Skin Inspection intact PT-OP-R Modalities Start: 04/25/20 08:08 Freq: Status: Active Protocol: Document 06/12/20 14:35 [facility] (Rec: 06/12/20 14:54 [facility] [id number]) Hot Pack/Cold Pack Treatment Cold Pack Comments not done due to patient daughter waiting; she stated she would ice at home. Ultrasound Therapy Treatment left heel Patient Position Sidelying Coupling Medium Ultrasound Gel Applicator Size (cm2) 2 Mode Setting Pulsed Duty Cycle 50% Intensity Setting (w/cm2) 1.0 Comments heel, retromalleolar PT-OP-T Assessment and Plan Start: 04/25/20 08:08 Freq: Status: Active Protocol: Document 06/27/20 09:51 [facility] (Rec: 06/27/20 10:34 [facility] [id number]) Physical Therapy Assessment Goals steps climibing Prison Goal (LTG) Pt will be able to climb steps without handrails so pt can go through steps from the backyard. LTG Duration 8 weeks activity tolerance Short Term Goal (STG) Pt will be able to teetee 4 miles in total a week with pain no more than 2/10 STG Duration 4 weeks Prison Goal (LTG) pt will be able to teetee 5 miles in total a week with pain no more than 2/10 LTG Duration 8 weeks Four Impairment weakness left calf with atrophy Short Term Goal (STG) 06/20 goal met strength at 4+/5 for L ankle and big toe with full ROM. Business Analytics Analyst Goal (LTG) Improve strength left ankle motions to at least 4+/5, with no greater than 1 cm difference in muscle bulk in calves. LTG Duration 06/24/20 Three Impairment antalgic gait Short Term Goal (STG) 06/20 goal met Pt has not been using any assistive device during rehab. Business Analytics Analyst Goal (LTG) patient to resume ability to take walks with minimal to no pain or limp, using least restrictive assistive device as needed LTG Duration 06/24/20 Two Impairment edema Short Term Goal (STG) 06/20 minimal edema noted but cont to improve. Business Analytics Analyst Goal (LTG) Minimal to no edema left heel and malleolar region LTG Duration 06/24/20 One Impairment pain Short Term Goal (STG) 06/20 goal met pt states 1/10 pain in general , and 2/10 for walking but sometimes went up to 4/10 Prison Goal (LTG) Decrease pain to no greater than 2/10 left heel LTG Duration 06/24/20 Assessment Summary Assessment Tolerated increased resistance with shuttle leg press, but poor tolerance for heel raise even with decrease in resistance. Difficulty with balance, ankle control on shuttle balance. Physical Therapy Plan Frequency and Duration Frequency of Treatment 2x/Week Duration of Treatment 8 wks Plan of Care Start Date 06/20/20 Plan of Care End Date 08/19/20 Next Visit Focus/Plan Next Note Type Treatment Note Next Visit Plan Continue PT to decrease pain left heel and foot and increase her tolerance to standing and walking.
--- NOTE | 2020-07-02 16:23 | PT.OTN ---
Current Diagnoses Muscle wasting and atrophy, not elsewhere classified, left lower leg (07/02/20) Unspecified disorder of synovium and tendon, left ankle and foot (07/02/20) Pain in unspecified foot (07/02/20) Other abnormalities of gait and mobility (07/02/20) Weakness (07/02/20) Physical Therapy Treatment Note PT-OP-A Visit Information Start: 04/25/20 08:08 Freq: Status: Active Protocol: Document 07/02/20 12:57 SAK (Rec: 07/02/20 14:32 SAK [id number]) Out-Patient Physical Therapy Visit Information Visit Information Visit Type Treatment Note Visit Start Time 13:00 Visit Stop Time 13:59 Total Visit Minutes 59 Visit Number 18 Number of INVESTMENT UNDERWRITER Visits 0 PT-OP-B Current Condition Start: 04/25/20 08:08 Freq: Status: Active Protocol: Document 04/25/20 11:18 SAK (Rec: 04/25/20 12:19 SAK [id number]) Current Condition History of Current Condition Onset Date 1 year Current Complaints pain right heel. History of Current Condition Reports approximately 1 year ago walking in cardiac rehab, took a step and felt something pop in the back of her right foot, has had pain in her heel since, unable to wear shoes with back, swollen at heel. Pain is constant, worse with any pressure. Can't take walks, no exercise bike with Covid19. Has been doing foot and ankle ROM, heat, ice as recommended by her doctor. Prior treatment for compression fracture right foot requiring the use of a boot. Has cane but tries not to use. Has difficulty keeping compression socks from rolling down so she doesn't use. Foot pain complicated by severe back pain and right sciatica. Prior Treatments and Tests Patient reports x-ray at [facility] showed bone spur in her right heel. Has neuropathy in feet. 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 Taping helpful. Overall getting better, states she feels she overdoes it often, because she is impatient to do more. PT-OP-G Mobility & Gait Start: 04/25/20 08:08 Freq: Status: Active Protocol: Document 04/25/20 11:18 SAK (Rec: 04/25/20 16:55 [facility] [id number]) OP Gait Assessment Assistive Devices Assistive Device None Gait Deviations General Gait Pattern Antalgic Factors Limiting Gait Function Factors Limiting Gait Function Pain PT-OP-J Posture/Palpation/Skin Start: 04/25/20 08:08 Freq: Status: Active Protocol: Document 04/25/20 11:18 SAK (Rec: 04/25/20 16:55 [facility] [id number]) Posture Evaluation Position Standing Ankle/Foot Posture (L) Pronated,(R) Pronated Foot Arch (L) Low Arch,(R) Low Arch Palpation Assessment Location posterior right heel Palpation Findings Edema,Tenderness Skin Assessment Edema Assessment right heel, retromalleolar Edema Type Non-Pitting Edema Degree 2+ Edema Appearance Puffy Circumference Measurement 4 Location calf right Measurement (Centimeters) 48.8 3 Location calf left Measurement (Centimeters) 46.6 2 Location malleoli right Measurement (Centimeters) 28.2 1 Location malleoli left Measurement (Centimeters) 28.9 PT-OP-K Range of Motion Start: 04/25/20 08:08 Freq: Status: Active Protocol: Document 04/25/20 11:18 SAK (Rec: 04/25/20 16:55 [facility] [id number]) Ankle and Foot Goniometric Range of Motion Ankle and Foot Right Active Ankle/Foot ROM WFL Yes Left Active Ankle/Foot ROM WFL No Dorsiflexion with Knee Flexed 5 Dorsiflexion with Knee Extended 0 Ankle and Foot ROM Limitations ROM Limitations Soft Tissue Tightness,Pain PT-OP-M Strength Start: 04/25/20 08:08 Freq: Status: Active Protocol: Document 04/25/20 11:18 SAK (Rec: 04/25/20 16:55 [facility] [id number]) Ankle/Foot Strength Ankle and Foot Manual Muscle Testing Right Dorsiflexion (L4) 5 Normal Plantarflexion (S1) 5 Normal Inversion 5 Normal Eversion (S1) 5 Normal Comments pain on left Left Dorsiflexion (L4) 4 Good Plantarflexion (S1) 4- Good- Inversion 4 Good Eversion (S1) 4 Good PT-OP-Q Treatments Start: 04/25/20 08:08 Freq: Status: Active Protocol: Document 07/02/20 12:57 SAK (Rec: 07/02/20 14:32 SAK [id number]) Cardio Equipment Recumbent Stepper (Sci-Fit) Duration (Minutes) 10 Resistance 2 Seat Position 8 Other 1.11 mi Gym Equipment Shuttle Balance chains red Details balance and weight shift Comments AP, side/side Therapeutic Exercises Sitting Exercises BAPS board Sitting Exercise Name forward/back, side, circles Equipment Used L5 Reps/Minutes 10x each motion Comments in standing PF/DF Sitting Exercise Name tiltboard Side bilateral Reps/Minutes 2 mins calf stretch Sitting Exercise Name gait belt for gastroc, knee flexed soleus Side left Reps/Minutes 30 x 2 Comments painfree ROM Standing Exercises tandem stand Reps/Minutes 2 min Comments UE support Gait Training Gait Activity level Treatment Focus heel/toe pattern with decreased lateral sway, gluteal activation Manual Therapy Treatment Taping 1 Body Location L heel and calf Treatment Focus inhibition left gastroc, pain relief Type of Tape cover roll and leukotape Skin Inspection intact PT-OP-R Modalities Start: 04/25/20 08:08 Freq: Status: Active Protocol: Document 06/12/20 14:35 SAK (Rec: 06/12/20 14:54 [facility] [id number]) Hot Pack/Cold Pack Treatment Cold Pack Comments not done due to patient daughter waiting; she stated she would ice at home. Ultrasound Therapy Treatment left heel Patient Position Sidelying Coupling Medium Ultrasound Gel Applicator Size (cm2) 2 Mode Setting Pulsed Duty Cycle 50% Intensity Setting (w/cm2) 1.0 Comments heel, retromalleolar PT-OP-T Assessment and Plan Start: 04/25/20 08:08 Freq: Status: Active Protocol: Document 07/02/20 12:57 [facility] (Rec: 07/02/20 14:32 [facility] [id number]) Physical Therapy Assessment Goals steps climibing Grades 7 8 Tutor Goal (LTG) Pt will be able to climb steps without handrails so pt can go through steps from the backyard. LTG Duration 8 weeks activity tolerance Short Term Goal (STG) Pt will be able to teetee 4 miles in total a week with pain no more than 2/10 STG Duration 4 weeks Grades 7 8 Tutor Goal (LTG) pt will be able to teetee 5 miles in total a week with pain no more than 2/10 LTG Duration 8 weeks Four Impairment weakness left calf with atrophy Short Term Goal (STG) 06/20 goal met strength at 4+/5 for L ankle and big toe with full ROM. Grades 7 8 Tutor Goal (LTG) Improve strength left ankle motions to at least 4+/5, with no greater than 1 cm difference in muscle bulk in calves. LTG Duration 06/24/20 Three Impairment antalgic gait Short Term Goal (STG) 06/20 goal met Pt has not been using any assistive device during rehab. Grades 7 8 Tutor Goal (LTG) patient to resume ability to take walks with minimal to no pain or limp, using least restrictive assistive device as needed LTG Duration 06/24/20 Two Impairment edema Short Term Goal (STG) 06/20 minimal edema noted but cont to improve. Prison Goal (LTG) Minimal to no edema left heel and malleolar region LTG Duration 06/24/20 One Impairment pain Short Term Goal (STG) 06/20 goal met pt states 1/10 pain in general , and 2/10 for walking but sometimes went up to 4/10 Grades 7 8 Tutor Goal (LTG) Decrease pain to no greater than 2/10 left heel LTG Duration 06/24/20 Assessment Summary Assessment Patient continues to improve activity tolerance though pain easily exacerbated, recovery quicker. Cues for correct gait sequencing. Gait also limited by LBP; patient anticipating back surgery this fall. Physical Therapy Plan Frequency and Duration Frequency of Treatment 2x/Week Duration of Treatment 8 wks Plan of Care Start Date 06/20/20 Plan of Care End Date 08/19/20 Next Visit Focus/Plan Next Note Type Treatment Note Next Visit Plan Continue PT to decrease pain left heel and foot and increase her tolerance to standing and walking.
--- NOTE | 2020-07-04 17:13 | PT.OTN ---
Current Diagnoses Muscle wasting and atrophy, not elsewhere classified, left lower leg (07/04/20) Unspecified disorder of synovium and tendon, left ankle and foot (07/04/20) Pain in unspecified foot (07/04/20) Other abnormalities of gait and mobility (07/04/20) Weakness (07/04/20) Physical Therapy Treatment Note PT-OP-A Visit Information Start: 04/25/20 08:08 Freq: Status: Active Protocol: Document 07/04/20 13:04 SAK (Rec: 07/04/20 13:56 SAK [id number]) Out-Patient Physical Therapy Visit Information Visit Information Visit Type Treatment Note Visit Start Time 13:00 Visit Stop Time 13:55 Total Visit Minutes 55 Visit Number 19 Number of BOTTOM SPRAYER Visits 0 PT-OP-B Current Condition Start: 04/25/20 08:08 Freq: Status: Active Protocol: Document 04/25/20 11:18 SAK (Rec: 04/25/20 12:19 SAK [id number]) Current Condition History of Current Condition Onset Date 1 year Current Complaints pain right heel. History of Current Condition Reports approximately 1 year ago walking in cardiac rehab, took a step and felt something pop in the back of her right foot, has had pain in her heel since, unable to wear shoes with back, swollen at heel. Pain is constant, worse with any pressure. Can't take walks, no exercise bike with Covid19. Has been doing foot and ankle ROM, heat, ice as recommended by her doctor. Prior treatment for compression fracture right foot requiring the use of a boot. Has cane but tries not to use. Has difficulty keeping compression socks from rolling down so she doesn't use. Foot pain complicated by severe back pain and right sciatica. Prior Treatments and Tests Patient reports x-ray at [facility] showed bone spur in her right heel. Has neuropathy in feet. 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 Requests ultrasound and iontophoresis. Continues to c /o LBP. PT-OP-G Mobility & Gait Start: 04/25/20 08:08 Freq: Status: Active Protocol: Document 04/25/20 11:18 [facility] (Rec: 04/25/20 16:55 [facility] [id number]) OP Gait Assessment Assistive Devices Assistive Device None Gait Deviations General Gait Pattern Antalgic Factors Limiting Gait Function Factors Limiting Gait Function Pain PT-OP-J Posture/Palpation/Skin Start: 04/25/20 08:08 Freq: Status: Active Protocol: Document 04/25/20 11:18 [facility] (Rec: 04/25/20 16:55 [facility] [id number]) Posture Evaluation Position Standing Ankle/Foot Posture (L) Pronated,(R) Pronated Foot Arch (L) Low Arch,(R) Low Arch Palpation Assessment Location posterior right heel Palpation Findings Edema,Tenderness Skin Assessment Edema Assessment right heel, retromalleolar Edema Type Non-Pitting Edema Degree 2+ Edema Appearance Puffy Circumference Measurement 4 Location calf right Measurement (Centimeters) 48.8 3 Location calf left Measurement (Centimeters) 46.6 2 Location malleoli right Measurement (Centimeters) 28.2 1 Location malleoli left Measurement (Centimeters) 28.9 PT-OP-K Range of Motion Start: 04/25/20 08:08 Freq: Status: Active Protocol: Document 04/25/20 11:18 [facility] (Rec: 04/25/20 16:55 [facility] [id number]) Ankle and Foot Goniometric Range of Motion Ankle and Foot Right Active Ankle/Foot ROM WFL Yes Left Active Ankle/Foot ROM WFL No Dorsiflexion with Knee Flexed 5 Dorsiflexion with Knee Extended 0 Ankle and Foot ROM Limitations ROM Limitations Soft Tissue Tightness,Pain PT-OP-M Strength Start: 04/25/20 08:08 Freq: Status: Active Protocol: Document 04/25/20 11:18 [facility] (Rec: 04/25/20 16:55 [facility] [id number]) Ankle/Foot Strength Ankle and Foot Manual Muscle Testing Right Dorsiflexion (L4) 5 Normal Plantarflexion (S1) 5 Normal Inversion 5 Normal Eversion (S1) 5 Normal Comments pain on left Left Dorsiflexion (L4) 4 Good Plantarflexion (S1) 4- Good- Inversion 4 Good Eversion (S1) 4 Good PT-OP-Q Treatments Start: 04/25/20 08:08 Freq: Status: Active Protocol: Document 07/04/20 13:04 [facility] (Rec: 07/04/20 13:56 [facility] [id number]) Cardio Equipment Recumbent Stepper (Sci-Fit) Duration (Minutes) 10 Resistance 2 Seat Position 8 Other 1.11 mi Gym Equipment Shuttle Balance chains red Details balance and weight shift Comments AP, side/side Therapeutic Exercises Sitting Exercises BAPS board Sitting Exercise Name forward/back, side, circles Equipment Used L5 Reps/Minutes 10x each motion Comments in standing Standing Exercises tandem stand Reps/Minutes 2 min Comments UE support Gait Training Gait Activity level Treatment Focus heel/toe pattern with decreased lateral sway, gluteal activation Self-Care/Home Management Treatment Education Other Education Shown BOA back brace due to her interest in wearing a back brace for improved lumbar support; felt good support and decreased pain and would like to discuss with physician to get order. PT-OP-R Modalities Start: 04/25/20 08:08 Freq: Status: Active Protocol: Document 07/04/20 13:04 [facility] (Rec: 07/04/20 17:13 [facility] [id number]) Hot Pack/Cold Pack Treatment Cold Pack Location lumbar spine (ice pack) and left foot/heel (cryocuff) Patient Position Sitting Treatment Duration (minutes) 10 Patient Tolerance Good Iontophoresis Treatment left heel/medial retromalleolar region Treatment Medication Dexamethasone (-) Medication Amount (mL) (ml) 1 Medication Dosage 4mg/ml Treatment Polarity Negative to Negative Patient Tolerance Good Ultrasound Therapy Treatment left heel Patient Position Sidelying Coupling Medium Ultrasound Gel Applicator Size (cm2) 2 Mode Setting Pulsed Duty Cycle 50% Intensity Setting (w/cm2) 1.0 Comments heel, retromalleolar PT-OP-T Assessment and Plan Start: 04/25/20 08:08 Freq: Status: Active Protocol: Document 07/04/20 13:04 TOAN (Rec: 07/04/20 17:13 TO[facility] [id number]) Physical Therapy Assessment Assessment Summary Assessment Patient high pain level persists though variable, bad day today. Discussed benefits of orthotics with patient stating she previously had custom, but hasn't worn for a long time, willing to consider . Compliant to HEP. Also recommended patient call pool to set up a time for being able to do aquatic exercise; aquatic PT not available at this time due to Covid19, PT not restarting until Phase 3 of reopening. Physical Therapy Plan Frequency and Duration Frequency of Treatment 2x/Week Duration of Treatment 8 wks Plan of Care Start Date 06/20/20 Plan of Care End Date 08/19/20 Therapeutic Interventions Therapeutic Interventions Aquatic Therapy,Balance Training,Gait Training,Home Exercise Program,Joint Mobilizations,Manual Therapy, Neuromuscular Re-education, Patient/Caregiver Education, Self-Care/Home Management,Soft Tissue Mobilization,Taping, Therapeutic Activities, Therapeutic Exercises Next Visit Focus/Plan Next Note Type Progress Note Next Visit Plan Encourage aquatic exercise, possible trial Superfeet or discuss other orthotic options including custom. Progress ther ex, manual therapy, and modalities as indicated.
--- NOTE | 2020-07-09 12:17 | PT.OTN ---
Current Diagnoses Muscle wasting and atrophy, not elsewhere classified, left lower leg (07/09/20) Unspecified disorder of synovium and tendon, left ankle and foot (07/09/20) Pain in unspecified foot (07/09/20) Other abnormalities of gait and mobility (07/09/20) Weakness (07/09/20) Physical Therapy Treatment Note PT-OP-A Visit Information Start: 04/25/20 08:08 Freq: Status: Active Protocol: Document 07/09/20 11:21 HH (Rec: 07/09/20 12:17 HH [id number]) Out-Patient Physical Therapy Visit Information Visit Information Visit Type Progress Note Visit Start Time 11:16 Visit Stop Time 12:00 Total Visit Minutes 44 Visit Number 20 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 History of Current Condition Reports approximately 1 year ago walking in cardiac rehab, took a step and felt something pop in the back of her right foot, has had pain in her heel since, unable to wear shoes with back, swollen at heel. Pain is constant, worse with any pressure. Can't take walks, no exercise bike with Covid19. Has been doing foot and ankle ROM, heat, ice as recommended by her doctor. Prior treatment for compression fracture right foot requiring the use of a boot. Has cane but tries not to use. Has difficulty keeping compression socks from rolling down so she doesn't use. Foot pain complicated by severe back pain and right sciatica. Prior Treatments and Tests Patient reports x-ray at [facility] showed bone spur in her right heel. Has neuropathy in feet. 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 I already walked about 2.5 miles in total for the past 2 days. I noticed that rajendra been walking better and more. Patient Reported Progress Improving PT-OP-G Mobility & Gait Start: 04/25/20 08:08 Freq: Status: Active Protocol: Document 04/25/20 11:18 SAK (Rec: 04/25/20 16:55 [facility] [id number]) OP Gait Assessment Assistive Devices Assistive Device None Gait Deviations General Gait Pattern Antalgic Factors Limiting Gait Function Factors Limiting Gait Function Pain PT-OP-J Posture/Palpation/Skin Start: 04/25/20 08:08 Freq: Status: Active Protocol: Document 04/25/20 11:18 SAK (Rec: 04/25/20 16:55 [facility] [id number]) Posture Evaluation Position Standing Ankle/Foot Posture (L) Pronated,(R) Pronated Foot Arch (L) Low Arch,(R) Low Arch Palpation Assessment Location posterior right heel Palpation Findings Edema,Tenderness Skin Assessment Edema Assessment right heel, retromalleolar Edema Type Non-Pitting Edema Degree 2+ Edema Appearance Puffy Circumference Measurement 4 Location calf right Measurement (Centimeters) 48.8 3 Location calf left Measurement (Centimeters) 46.6 2 Location malleoli right Measurement (Centimeters) 28.2 1 Location malleoli left Measurement (Centimeters) 28.9 PT-OP-K Range of Motion Start: 04/25/20 08:08 Freq: Status: Active Protocol: Document 04/25/20 11:18 SAK (Rec: 04/25/20 16:55 [facility] [id number]) Ankle and Foot Goniometric Range of Motion Ankle and Foot Right Active Ankle/Foot ROM WFL Yes Left Active Ankle/Foot ROM WFL No Dorsiflexion with Knee Flexed 5 Dorsiflexion with Knee Extended 0 Ankle and Foot ROM Limitations ROM Limitations Soft Tissue Tightness,Pain PT-OP-M Strength Start: 04/25/20 08:08 Freq: Status: Active Protocol: Document 04/25/20 11:18 [facility] (Rec: 04/25/20 16:55 [facility] [id number]) Ankle/Foot Strength Ankle and Foot Manual Muscle Testing Right Dorsiflexion (L4) 5 Normal Plantarflexion (S1) 5 Normal Inversion 5 Normal Eversion (S1) 5 Normal Comments pain on left Left Dorsiflexion (L4) 4 Good Plantarflexion (S1) 4- Good- Inversion 4 Good Eversion (S1) 4 Good PT-OP-Q Treatments Start: 04/25/20 08:08 Freq: Status: Active Protocol: Document 07/09/20 11:21 (Rec: 07/09/20 12:17 [id number]) Cardio Equipment Recumbent Stepper (Sci-Fit) Duration (Minutes) 10 Resistance 2.5 Seat Position 8 Other 1.17 Gym Equipment Shuttle Recovery heel raise Resistance #50 Shuttle Recovery Platform Stable Reps/Time minimal discomfort at L heel leg press Details 50-75# Shuttle Recovery Platform Stable Reps/Time minimal discomfort at L heel Shuttle Balance chains red Details balance and weight shift Comments AP, side/side Therapeutic Exercises Sitting Exercises BAPS board Sitting Exercise Name forward/back, side, circles Equipment Used L5 Reps/Minutes 10x each motion Comments in standing Standing Exercises ankle rock Standing Exercise Name on blue foam pad Side bilateral Reps/Minutes 10 sec x 5 Comments discomfort at L heel with anterior shift Manual Therapy Treatment Soft Tissue Mobilization calf Body Location L calf Mobilization Type Sustained Pressure,Trigger Point Release Intensity/Depth Moderate Body Position Sitting PT-OP-R Modalities Start: 04/25/20 08:08 Freq: Status: Active Protocol: Document 07/04/20 13:04 [facility] (Rec: 07/04/20 17:13 [facility] [id number]) Hot Pack/Cold Pack Treatment Cold Pack Location lumbar spine (ice pack) and left foot/heel (cryocuff) Patient Position Sitting Treatment Duration (minutes) 10 Patient Tolerance Good Iontophoresis Treatment left heel/medial retromalleolar region Treatment Medication Dexamethasone (-) Medication Amount (mL) (ml) 1 Medication Dosage 4mg/ml Treatment Polarity Negative to Negative Patient Tolerance Good Ultrasound Therapy Treatment left heel Patient Position Sidelying Coupling Medium Ultrasound Gel Applicator Size (cm2) 2 Mode Setting Pulsed Duty Cycle 50% Intensity Setting (w/cm2) 1.0 Comments heel, retromalleolar PT-OP-T Assessment and Plan Start: 04/25/20 08:08 Freq: Status: Active Protocol: Document 07/09/20 11:21 HH (Rec: 07/09/20 12:17 HH [id number]) Physical Therapy Assessment Goals steps climibing [facility] Goal (LTG) Pt will be able to climb steps without handrails so pt can go through steps from the backyard. LTG Duration 8 weeks activity tolerance Short Term Goal (STG) cont in progress 07/09 pt completed 5 miles last week but did significant pain for a day Pt will be able to teetee 4 miles in total a week with pain no more than 2/10 STG Duration 4 weeks [facility] Goal (LTG) pt will be able to teetee 5 miles in total a week with pain no more than 2/10 LTG Duration 8 weeks Four Impairment weakness left calf with atrophy Short Term Goal (STG) 06/20 goal met strength at 4+/5 for L ankle and big toe with full ROM. Senior Care Goal (LTG) Improve strength left ankle motions to at least 4+/5, with no greater than 1 cm difference in muscle bulk in calves. LTG Duration 06/24/20 Three Impairment antalgic gait Short Term Goal (STG) 06/20 goal met Pt has not been using any assistive device during rehab. [facility] Goal (LTG) cont in progress 07/09 Pt still shows mild limp depends on amb distance. She is currently walking with less of a heel strike to minimize pressure at heel patient to resume ability to take walks with minimal to no pain or limp, using least restrictive assistive device as needed LTG Duration 8 weeks Two Impairment edema Short Term Goal (STG) 07/09 minimal edema noted but cont to improve. [facility] Goal (LTG) Minimal to no edema left heel and malleolar region LTG Duration 8 weeks One Impairment pain Short Term Goal (STG) 06/20 goal met pt states 1/10 pain in general , and 2/10 for walking but sometimes went up to 4/10 Senior Care Goal (LTG) Decrease pain to no greater than 2/10 left heel LTG Duration 06/24/20 Progress Towards Goals Progress Towards Goals Slow Progress due to Activity Tolerance,Slow Progress due to Medical Issues,Slow Progress - Other Assessment Summary Assessment Pt has been progressing slowly possibly d/t her cormobidities, ongoing back pain and high pain sensitivity . However, pt has been showing improved activity tolerance who walked up to 5 miles a week, along with improved L ankle strength. Although pt has a slow progress, she will still cont benefit from skilled therapy to strength her LLE, foot intrinsics, overall balance to optimize her mobility with least discomfort. Also strongly rec pt today to participate pool therapy Physical Therapy Plan Frequency and Duration Frequency of Treatment 2x/Week Duration of Treatment 8 wks Plan of Care Start Date 06/20/20 Plan of Care End Date 08/19/20 Next Visit Focus/Plan Next Note Type Treatment Note Next Visit Plan Encourage aquatic exercise, possible trial Superfeet or discuss other orthotic options including custom. Progress ther ex, manual therapy, and modalities as indicated.
--- NOTE | 2020-07-11 12:08 | PT.OTN ---
Current Diagnoses Muscle wasting and atrophy, not elsewhere classified, left lower leg (07/11/20) Unspecified disorder of synovium and tendon, left ankle and foot (07/11/20) Pain in unspecified foot (07/11/20) Other abnormalities of gait and mobility (07/11/20) Weakness (07/11/20) Physical Therapy Treatment Note PT-OP-A Visit Information Start: 04/25/20 08:08 Freq: Status: Active Protocol: Document 07/11/20 10:38 HH (Rec: 07/11/20 12:08 HH [id number]) Out-Patient Physical Therapy Visit Information Visit Information Visit Type Treatment Note Visit Start Time 10:32 Visit Stop Time 11:15 Total Visit Minutes 43 Visit Number 21 Number of INPATIENT CARE MANAGER RN Visits 0 PT-OP-B Current Condition Start: 04/25/20 08:08 Freq: Status: Active Protocol: Document 04/25/20 11:18 SAK (Rec: 04/25/20 12:19 SAK [id number]) Current Condition History of Current Condition Onset Date 1 year Current Complaints pain right heel. History of Current Condition Reports approximately 1 year ago walking in cardiac rehab, took a step and felt something pop in the back of her right foot, has had pain in her heel since, unable to wear shoes with back, swollen at heel. Pain is constant, worse with any pressure. Can't take walks, no exercise bike with Covid19. Has been doing foot and ankle ROM, heat, ice as recommended by her doctor. Prior treatment for compression fracture right foot requiring the use of a boot. Has cane but tries not to use. Has difficulty keeping compression socks from rolling down so she doesn't use. Foot pain complicated by severe back pain and right sciatica. Prior Treatments and Tests Patient reports x-ray at [facility] showed bone spur in her right heel. Has neuropathy in feet. 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 Patient Reported Progress Same PT-OP-G Mobility & Gait Start: 04/25/20 08:08 Freq: Status: Active Protocol: Document 04/25/20 11:18 SAK (Rec: 04/25/20 16:55 [facility] [id number]) OP Gait Assessment Assistive Devices Assistive Device None Gait Deviations General Gait Pattern Antalgic Factors Limiting Gait Function Factors Limiting Gait Function Pain PT-OP-J Posture/Palpation/Skin Start: 04/25/20 08:08 Freq: Status: Active Protocol: Document 04/25/20 11:18 SAK (Rec: 04/25/20 16:55 [facility] [id number]) Posture Evaluation Position Standing Ankle/Foot Posture (L) Pronated,(R) Pronated Foot Arch (L) Low Arch,(R) Low Arch Palpation Assessment Location posterior right heel Palpation Findings Edema,Tenderness Skin Assessment Edema Assessment right heel, retromalleolar Edema Type Non-Pitting Edema Degree 2+ Edema Appearance Puffy Circumference Measurement 4 Location calf right Measurement (Centimeters) 48.8 3 Location calf left Measurement (Centimeters) 46.6 2 Location malleoli right Measurement (Centimeters) 28.2 1 Location malleoli left Measurement (Centimeters) 28.9 PT-OP-K Range of Motion Start: 04/25/20 08:08 Freq: Status: Active Protocol: Document 04/25/20 11:18 SAK (Rec: 04/25/20 16:55 [facility] [id number]) Ankle and Foot Goniometric Range of Motion Ankle and Foot Right Active Ankle/Foot ROM WFL Yes Left Active Ankle/Foot ROM WFL No Dorsiflexion with Knee Flexed 5 Dorsiflexion with Knee Extended 0 Ankle and Foot ROM Limitations ROM Limitations Soft Tissue Tightness,Pain PT-OP-M Strength Start: 04/25/20 08:08 Freq: Status: Active Protocol: Document 04/25/20 11:18 [facility] (Rec: 04/25/20 16:55 [facility] [id number]) Ankle/Foot Strength Ankle and Foot Manual Muscle Testing Right Dorsiflexion (L4) 5 Normal Plantarflexion (S1) 5 Normal Inversion 5 Normal Eversion (S1) 5 Normal Comments pain on left Left Dorsiflexion (L4) 4 Good Plantarflexion (S1) 4- Good- Inversion 4 Good Eversion (S1) 4 Good PT-OP-Q Treatments Start: 04/25/20 08:08 Freq: Status: Active Protocol: Document 07/11/20 10:38 (Rec: 07/11/20 12:08 [id number]) Cardio Equipment Recumbent Stepper (Sci-Fit) Duration (Minutes) 10 Resistance 2.5 Seat Position 8 Other 1.17 Manual Therapy Treatment Soft Tissue Mobilization hip adductors Mobilization Type Rolling,Sustained Pressure Intensity/Depth Moderate Body Position Supine Comments significant tenderness noted on L >R Pt felt better to amb after STM. glutes Mobilization Type Rolling,Sustained Pressure Intensity/Depth Moderate Body Position Sidelying Comments both gluteal msucles show high muscle tone to pressure. calf Body Location L calf Mobilization Type Sustained Pressure,Trigger Point Release Intensity/Depth Moderate Body Position Sitting Taping 1 Type of Tape Kinesio Tape Skin Inspection good Comments achilles with 2 I strips Self-Care/Home Management Treatment Education Patient Education Home Exercise Program,Pain Management Other Education Education on using rolling pin to decreased soreness for hip adductors. PT-OP-R Modalities Start: 04/25/20 08:08 Freq: Status: Active Protocol: Document 07/04/20 13:04 [facility] (Rec: 07/04/20 17:13 [facility] [id number]) Hot Pack/Cold Pack Treatment Cold Pack Location lumbar spine (ice pack) and left foot/heel (cryocuff) Patient Position Sitting Treatment Duration (minutes) 10 Patient Tolerance Good Iontophoresis Treatment left heel/medial retromalleolar region Treatment Medication Dexamethasone (-) Medication Amount (mL) (ml) 1 Medication Dosage 4mg/ml Treatment Polarity Negative to Negative Patient Tolerance Good Ultrasound Therapy Treatment left heel Patient Position Sidelying Coupling Medium Ultrasound Gel Applicator Size (cm2) 2 Mode Setting Pulsed Duty Cycle 50% Intensity Setting (w/cm2) 1.0 Comments heel, retromalleolar PT-OP-T Assessment and Plan Start: 04/25/20 08:08 Freq: Status: Active Protocol: Document 07/11/20 10:38 HH (Rec: 07/11/20 12:08 HH [id number]) Physical Therapy Assessment Goals activity tolerance Short Term Goal (STG) cont in progress 07/09 pt completed 5 miles last week but did significant pain for a day Pt will be able to teetee 4 miles in total a week with pain no more than 2/10 STG Duration 4 weeks Shale Plan[employer] Operator Goal (LTG) pt will be able to teetee 5 miles in total a week with pain no more than 2/10 LTG Duration 8 weeks Four Impairment weakness left calf with atrophy Short Term Goal (STG) 06/20 goal met strength at 4+/5 for L ankle and big toe with full ROM. Intermediate Goal (LTG) Improve strength left ankle motions to at least 4+/5, with no greater than 1 cm difference in muscle bulk in calves. LTG Duration 06/24/20 Three Impairment antalgic gait Short Term Goal (STG) 06/20 goal met Pt has not been using any assistive device during rehab. Shale Planer Operator Goal (LTG) cont in progress 07/09 Pt still shows mild limp depends on amb distance. She is currently walking with less of a heel strike to minimize pressure at heel patient to resume ability to take walks with minimal to no pain or limp, using least restrictive assistive device as needed LTG Duration 8 weeks Assessment Summary Assessment Pt completed 5.2 miles in 5 days with good tolerance. She feels a bit sore today and this PT noticed swelling at the ankle has reduced and less tender to touch. This session focused on improving her hip adductors and glutes mobility. Pt is interested in signing up for water aerobic class at [facility] Physical Therapy Plan Next Visit Focus/Plan Next Note Type Treatment Note Next Visit Plan Encourage aquatic exercise, possible trial Superfeet or discuss other orthotic options including custom. Progress ther ex, manual therapy, and modalities as indicated.
--- NOTE | 2020-07-16 13:48 | PT.OTN ---
Current Diagnoses Muscle wasting and atrophy, not elsewhere classified, left lower leg (07/16/20) Unspecified disorder of synovium and tendon, left ankle and foot (07/16/20) Pain in unspecified foot (07/16/20) Other abnormalities of gait and mobility (07/16/20) Weakness (07/16/20) Physical Therapy Treatment Note PT-OP-A Visit Information Start: 04/25/20 08:08 Freq: Status: Active Protocol: Document 07/16/20 13:04 HH (Rec: 07/16/20 13:48 HH [id number]) Out-Patient Physical Therapy Visit Information Visit Information Visit Type Treatment Note Visit Start Time 13:04 Visit Stop Time 13:45 Total Visit Minutes 41 Visit Number 22 Number of ANALYST BUSINESS ANALYSIS Visits 0 PT-OP-B Current Condition Start: 04/25/20 08:08 Freq: Status: Active Protocol: Document 04/25/20 11:18 SAK (Rec: 04/25/20 12:19 SAK [id number]) Current Condition History of Current Condition Onset Date 1 year Current Complaints pain right heel. History of Current Condition Reports approximately 1 year ago walking in cardiac rehab, took a step and felt something pop in the back of her right foot, has had pain in her heel since, unable to wear shoes with back, swollen at heel. Pain is constant, worse with any pressure. Can't take walks, no exercise bike with Covid19. Has been doing foot and ankle ROM, heat, ice as recommended by her doctor. Prior treatment for compression fracture right foot requiring the use of a boot. Has cane but tries not to use. Has difficulty keeping compression socks from rolling down so she doesn't use. Foot pain complicated by severe back pain and right sciatica. Prior Treatments and Tests Patient reports x-ray at [facility] showed bone spur in her right heel. Has neuropathy in feet. 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 My hips and back feel really good after last session and my heel doesnt bother me as much. Patient Reported Progress Improving PT-OP-G Mobility & Gait Start: 04/25/20 08:08 Freq: Status: Active Protocol: Document 04/25/20 11:18 SAK (Rec: 04/25/20 16:55 SAK [id number]) OP Gait Assessment Assistive Devices Assistive Device None Gait Deviations General Gait Pattern Antalgic Factors Limiting Gait Function Factors Limiting Gait Function Pain PT-OP-J Posture/Palpation/Skin Start: 04/25/20 08:08 Freq: Status: Active Protocol: Document 04/25/20 11:18 SAK (Rec: 04/25/20 16:55 [facility] [id number]) Posture Evaluation Position Standing Ankle/Foot Posture (L) Pronated,(R) Pronated Foot Arch (L) Low Arch,(R) Low Arch Palpation Assessment Location posterior right heel Palpation Findings Edema,Tenderness Skin Assessment Edema Assessment right heel, retromalleolar Edema Type Non-Pitting Edema Degree 2+ Edema Appearance Puffy Circumference Measurement 4 Location calf right Measurement (Centimeters) 48.8 3 Location calf left Measurement (Centimeters) 46.6 2 Location malleoli right Measurement (Centimeters) 28.2 1 Location malleoli left Measurement (Centimeters) 28.9 PT-OP-K Range of Motion Start: 04/25/20 08:08 Freq: Status: Active Protocol: Document 04/25/20 11:18 SAK (Rec: 04/25/20 16:55 SAK [id number]) Ankle and Foot Goniometric Range of Motion Ankle and Foot Right Active Ankle/Foot ROM WFL Yes Left Active Ankle/Foot ROM WFL No Dorsiflexion with Knee Flexed 5 Dorsiflexion with Knee Extended 0 Ankle and Foot ROM Limitations ROM Limitations Soft Tissue Tightness,Pain PT-OP-M Strength Start: 04/25/20 08:08 Freq: Status: Active Protocol: Document 04/25/20 11:18 [facility] (Rec: 04/25/20 16:55 [facility] [id number]) Ankle/Foot Strength Ankle and Foot Manual Muscle Testing Right Dorsiflexion (L4) 5 Normal Plantarflexion (S1) 5 Normal Inversion 5 Normal Eversion (S1) 5 Normal Comments pain on left Left Dorsiflexion (L4) 4 Good Plantarflexion (S1) 4- Good- Inversion 4 Good Eversion (S1) 4 Good PT-OP-Q Treatments Start: 04/25/20 08:08 Freq: Status: Active Protocol: Document 07/16/20 13:04 (Rec: 07/16/20 13:48 [id number]) Cardio Equipment Recumbent Stepper (Sci-Fit) Duration (Minutes) 10 Resistance 2.5 Seat Position 8 Other 1.18 Therapeutic Exercises Supine Exercises romaine stretch Side bilateral Reps/Minutes 10 sec hold x5 Comments pain at anterior hip and lumbar spine supine ER Side bilateral Equipment Used yellow band Reps/Minutes 10 x1 Pelvic tilt Supine Exercise Name with hip ER and PPT Side bilateral Reps/Minutes 10 x1 Sitting Exercises rolling pin Side bilateral Comments for HEP, educated pt to use rolling to improve pain sensiivity at hip add Manual Therapy Treatment Soft Tissue Mobilization hip adductors Mobilization Type Rolling,Sustained Pressure Intensity/Depth Moderate Body Position Supine Comments less tenderness noted today Pt felt better to amb after STM. glutes Mobilization Type Rolling,Sustained Pressure Intensity/Depth Moderate Body Position Sidelying Comments both gluteal msucles show high muscle tone to pressure. PT-OP-R Modalities Start: 04/25/20 08:08 Freq: Status: Active Protocol: Document 07/04/20 13:04 [facility] (Rec: 07/04/20 17:13 [facility] [id number]) Hot Pack/Cold Pack Treatment Cold Pack Location lumbar spine (ice pack) and left foot/heel (cryocuff) Patient Position Sitting Treatment Duration (minutes) 10 Patient Tolerance Good Iontophoresis Treatment left heel/medial retromalleolar region Treatment Medication Dexamethasone (-) Medication Amount (mL) (ml) 1 Medication Dosage 4mg/ml Treatment Polarity Negative to Negative Patient Tolerance Good Ultrasound Therapy Treatment left heel Patient Position Sidelying Coupling Medium Ultrasound Gel Applicator Size (cm2) 2 Mode Setting Pulsed Duty Cycle 50% Intensity Setting (w/cm2) 1.0 Comments heel, retromalleolar PT-OP-T Assessment and Plan Start: 04/25/20 08:08 Freq: Status: Active Protocol: Document 07/16/20 13:04 (Rec: 07/16/20 13:48 [id number]) Physical Therapy Assessment Goals activity tolerance Short Term Goal (STG) cont in progress 07/09 pt completed 5 miles last week but did significant pain for a day Pt will be able to teetee 4 miles in total a week with pain no more than 2/10 STG Duration 4 weeks [facility] Goal (LTG) pt will be able to teetee 5 miles in total a week with pain no more than 2/10 LTG Duration 8 weeks Four Impairment weakness left calf with atrophy Short Term Goal (STG) 06/20 goal met strength at 4+/5 for L ankle and big toe with full ROM. [facility] Goal (LTG) Improve strength left ankle motions to at least 4+/5, with no greater than 1 cm difference in muscle bulk in calves. LTG Duration 06/24/20 Three Impairment antalgic gait Short Term Goal (STG) 06/20 goal met Pt has not been using any assistive device during rehab. Airplane First Officer Goal (LTG) cont in progress 07/09 Pt still shows mild limp depends on amb distance. She is currently walking with less of a heel strike to minimize pressure at heel patient to resume ability to take walks with minimal to no pain or limp, using least restrictive assistive device as needed LTG Duration 8 weeks Two Impairment edema Short Term Goal (STG) 07/09 minimal edema noted but cont to improve. [facility] Goal (LTG) Minimal to no edema left heel and malleolar region LTG Duration 8 weeks One Impairment pain Short Term Goal (STG) 06/20 goal met pt states 1/10 pain in general , and 2/10 for walking but sometimes went up to 4/10 Airplane First Officer Goal (LTG) Decrease pain to no greater than 2/10 left heel LTG Duration 06/24/20 Assessment Summary Assessment Pt reports improved gait efficiency, endurance and pain after focusing on hip mobility from last visit. Her pain sensitivity at hip adductors decreased significantly today but noticed her hip flexors are sensitive as well. Pt did feel better after manual therapy followed by hip mobility ex. Physical Therapy Plan Next Visit Focus/Plan Next Note Type Treatment Note Next Visit Plan Encourage aquatic exercise, possible trial Superfeet or discuss other orthotic options including custom. Progress ther ex, manual therapy, and modalities as indicated.
--- NOTE | 2020-07-18 11:21 | PT.OTN ---
Current Diagnoses Muscle wasting and atrophy, not elsewhere classified, left lower leg (07/18/20) Unspecified disorder of synovium and tendon, left ankle and foot (07/18/20) Pain in unspecified foot (07/18/20) Other abnormalities of gait and mobility (07/18/20) Weakness (07/18/20) Physical Therapy Treatment Note PT-OP-A Visit Information Start: 04/25/20 08:08 Freq: Status: Active Protocol: Document 07/18/20 10:41 HH (Rec: 07/18/20 11:21 HH [id number]) Out-Patient Physical Therapy Visit Information Visit Information Visit Type Treatment Note Visit Start Time 10:31 Visit Stop Time 11:15 Total Visit Minutes 44 Visit Number 23 Number of COMMUNITY SERVICE PATROL OFFICER Visits 0 PT-OP-B Current Condition Start: 04/25/20 08:08 Freq: Status: Active Protocol: Document 04/25/20 11:18 SAK (Rec: 04/25/20 12:19 SAK [id number]) Current Condition History of Current Condition Onset Date 1 year Current Complaints pain right heel. History of Current Condition Reports approximately 1 year ago walking in cardiac rehab, took a step and felt something pop in the back of her right foot, has had pain in her heel since, unable to wear shoes with back, swollen at heel. Pain is constant, worse with any pressure. Can't take walks, no exercise bike with Covid19. Has been doing foot and ankle ROM, heat, ice as recommended by her doctor. Prior treatment for compression fracture right foot requiring the use of a boot. Has cane but tries not to use. Has difficulty keeping compression socks from rolling down so she doesn't use. Foot pain complicated by severe back pain and right sciatica. Prior Treatments and Tests Patient reports x-ray at [facility] showed bone spur in her right heel. Has neuropathy in feet. 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 Patient Reported Progress Same PT-OP-G Mobility & Gait Start: 04/25/20 08:08 Freq: Status: Active Protocol: Document 04/25/20 11:18 SAK (Rec: 04/25/20 16:55 SAK [id number]) OP Gait Assessment Assistive Devices Assistive Device None Gait Deviations General Gait Pattern Antalgic Factors Limiting Gait Function Factors Limiting Gait Function Pain PT-OP-J Posture/Palpation/Skin Start: 04/25/20 08:08 Freq: Status: Active Protocol: Document 04/25/20 11:18 SAK (Rec: 04/25/20 16:55 SAK [id number]) Posture Evaluation Position Standing Ankle/Foot Posture (L) Pronated,(R) Pronated Foot Arch (L) Low Arch,(R) Low Arch Palpation Assessment Location posterior right heel Palpation Findings Edema,Tenderness Skin Assessment Edema Assessment right heel, retromalleolar Edema Type Non-Pitting Edema Degree 2+ Edema Appearance Puffy Circumference Measurement 4 Location calf right Measurement (Centimeters) 48.8 3 Location calf left Measurement (Centimeters) 46.6 2 Location malleoli right Measurement (Centimeters) 28.2 1 Location malleoli left Measurement (Centimeters) 28.9 PT-OP-K Range of Motion Start: 04/25/20 08:08 Freq: Status: Active Protocol: Document 04/25/20 11:18 SAK (Rec: 04/25/20 16:55 SAK [id number]) Ankle and Foot Goniometric Range of Motion Ankle and Foot Right Active Ankle/Foot ROM WFL Yes Left Active Ankle/Foot ROM WFL No Dorsiflexion with Knee Flexed 5 Dorsiflexion with Knee Extended 0 Ankle and Foot ROM Limitations ROM Limitations Soft Tissue Tightness,Pain PT-OP-M Strength Start: 04/25/20 08:08 Freq: Status: Active Protocol: Document 04/25/20 11:18 [facility] (Rec: 04/25/20 16:55 [facility] [id number]) Ankle/Foot Strength Ankle and Foot Manual Muscle Testing Right Dorsiflexion (L4) 5 Normal Plantarflexion (S1) 5 Normal Inversion 5 Normal Eversion (S1) 5 Normal Comments pain on left Left Dorsiflexion (L4) 4 Good Plantarflexion (S1) 4- Good- Inversion 4 Good Eversion (S1) 4 Good PT-OP-Q Treatments Start: 04/25/20 08:08 Freq: Status: Active Protocol: Document 07/18/20 10:41 (Rec: 07/18/20 11:21 [id number]) Cardio Equipment Recumbent Stepper (Sci-Fit) Duration (Minutes) 10 Resistance 2.5 Seat Position 8 Other 1.22 Therapeutic Exercises Supine Exercises romaine stretch Side bilateral Reps/Minutes 10 sec hold x5 Comments pain at anterior hip and lumbar spine Standing Exercises soleus stretch Standing Exercise Name heel on the floor Equipment Used grab bar Reps/Minutes 8 x2 Comments AP weight shift, with small staggered stance. pt stated stretching feeling forefoot push off Standing Exercise Name on ball of the foot Equipment Used grab bar Reps/Minutes 8 x2 Comments AP weight shift, with small staggered stance. pt stated stretching feeling Manual Therapy Treatment Soft Tissue Mobilization hip adductors Mobilization Type Rolling,Sustained Pressure Intensity/Depth Moderate Body Position Supine Comments less tenderness noted today Pt felt better to amb after STM. calf Body Location L calf Mobilization Type Sustained Pressure,Trigger Point Release Intensity/Depth Moderate Body Position Sitting PT-OP-R Modalities Start: 04/25/20 08:08 Freq: Status: Active Protocol: Document 07/04/20 13:04 [facility] (Rec: 07/04/20 17:13 [facility] [id number]) Hot Pack/Cold Pack Treatment Cold Pack Location lumbar spine (ice pack) and left foot/heel (cryocuff) Patient Position Sitting Treatment Duration (minutes) 10 Patient Tolerance Good Iontophoresis Treatment left heel/medial retromalleolar region Treatment Medication Dexamethasone (-) Medication Amount (mL) (ml) 1 Medication Dosage 4mg/ml Treatment Polarity Negative to Negative Patient Tolerance Good Ultrasound Therapy Treatment left heel Patient Position Sidelying Coupling Medium Ultrasound Gel Applicator Size (cm2) 2 Mode Setting Pulsed Duty Cycle 50% Intensity Setting (w/cm2) 1.0 Comments heel, retromalleolar PT-OP-T Assessment and Plan Start: 04/25/20 08:08 Freq: Status: Active Protocol: Document 07/18/20 10:41 HH (Rec: 07/18/20 11:21 HH [id number]) Physical Therapy Assessment Goals activity tolerance Short Term Goal (STG) cont in progress 07/09 pt completed 5 miles last week but did significant pain for a day Pt will be able to teetee 4 miles in total a week with pain no more than 2/10 STG Duration 4 weeks Detention Goal (LTG) pt will be able to teetee 5 miles in total a week with pain no more than 2/10 LTG Duration 8 weeks Four Impairment weakness left calf with atrophy Short Term Goal (STG) 06/20 goal met strength at 4+/5 for L ankle and big toe with full ROM. Detention Goal (LTG) Improve strength left ankle motions to at least 4+/5, with no greater than 1 cm difference in muscle bulk in calves. LTG Duration 06/24/20 Three Impairment antalgic gait Short Term Goal (STG) 06/20 goal met Pt has not been using any assistive device during rehab. Principal Network Engineer Goal (LTG) cont in progress 07/09 Pt still shows mild limp depends on amb distance. She is currently walking with less of a heel strike to minimize pressure at heel patient to resume ability to take walks with minimal to no pain or limp, using least restrictive assistive device as needed LTG Duration 8 weeks Two Impairment edema Short Term Goal (STG) 07/09 minimal edema noted but cont to improve. Principal Network Engineer Goal (LTG) Minimal to no edema left heel and malleolar region LTG Duration 8 weeks One Impairment pain Short Term Goal (STG) 06/20 goal met pt states 1/10 pain in general , and 2/10 for walking but sometimes went up to 4/10 Principal Network Engineer Goal (LTG) Decrease pain to no greater than 2/10 left heel LTG Duration 06/24/20 Assessment Summary Assessment Pt cont to feel improved hip mobility but slight irritation on L heel today. However, pt is now able to teetee soleus stretch and forefoot push off in standing position which were added to HEP. Change POC to once /week x 4 weeks for maintainence. Physical Therapy Plan Frequency and Duration Frequency of Treatment 1x/Week Duration of Treatment 4 weeks Plan of Care Start Date 07/18/20 Plan of Care End Date 08/19/20 Next Visit Focus/Plan Next Note Type Treatment Note Next Visit Plan Encourage aquatic exercise, possible trial Superfeet or discuss other orthotic options including custom. Progress ther ex, manual therapy, and modalities as indicated.
--- NOTE | 2020-07-24 14:52 | PT.OTN ---
Current Diagnoses Muscle wasting and atrophy, not elsewhere classified, left lower leg (07/23/20) Unspecified disorder of synovium and tendon, left ankle and foot (07/23/20) Pain in unspecified foot (07/23/20) Other abnormalities of gait and mobility (07/23/20) Weakness (07/23/20) Physical Therapy Treatment Note PT-OP-A Visit Information Start: 04/25/20 08:08 Freq: Status: Active Protocol: Document 07/23/20 15:22 SAK (Rec: 07/23/20 16:25 SAK [id number]) Out-Patient Physical Therapy Visit Information Visit Information Visit Type Treatment Note Visit Start Time 15:15 Visit Stop Time 16:10 Total Visit Minutes 55 Visit Number 24 Number of RE DYE HAND Visits 0 PT-OP-B Current Condition Start: 04/25/20 08:08 Freq: Status: Active Protocol: Document 04/25/20 11:18 SAK (Rec: 04/25/20 12:19 SAK [id number]) Current Condition History of Current Condition Onset Date 1 year Current Complaints pain right heel. History of Current Condition Reports approximately 1 year ago walking in cardiac rehab, took a step and felt something pop in the back of her right foot, has had pain in her heel since, unable to wear shoes with back, swollen at heel. Pain is constant, worse with any pressure. Can't take walks, no exercise bike with Covid19. Has been doing foot and ankle ROM, heat, ice as recommended by her doctor. Prior treatment for compression fracture right foot requiring the use of a boot. Has cane but tries not to use. Has difficulty keeping compression socks from rolling down so she doesn't use. Foot pain complicated by severe back pain and right sciatica. Prior Treatments and Tests Patient reports x-ray at [facility] showed bone spur in her right heel. Has neuropathy in feet. 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 Would like to have kinesiotape today. PT-OP-G Mobility & Gait Start: 04/25/20 08:08 Freq: Status: Active Protocol: Document 04/25/20 11:18 SAK (Rec: 04/25/20 16:55 [facility] [id number]) OP Gait Assessment Assistive Devices Assistive Device None Gait Deviations General Gait Pattern Antalgic Factors Limiting Gait Function Factors Limiting Gait Function Pain PT-OP-J Posture/Palpation/Skin Start: 04/25/20 08:08 Freq: Status: Active Protocol: Document 04/25/20 11:18 [facility] (Rec: 04/25/20 16:55 [facility] [id number]) Posture Evaluation Position Standing Ankle/Foot Posture (L) Pronated,(R) Pronated Foot Arch (L) Low Arch,(R) Low Arch Palpation Assessment Location posterior right heel Palpation Findings Edema,Tenderness Skin Assessment Edema Assessment right heel, retromalleolar Edema Type Non-Pitting Edema Degree 2+ Edema Appearance Puffy Circumference Measurement 4 Location calf right Measurement (Centimeters) 48.8 3 Location calf left Measurement (Centimeters) 46.6 2 Location malleoli right Measurement (Centimeters) 28.2 1 Location malleoli left Measurement (Centimeters) 28.9 PT-OP-K Range of Motion Start: 04/25/20 08:08 Freq: Status: Active Protocol: Document 04/25/20 11:18 SAK (Rec: 04/25/20 16:55 [facility] [id number]) Ankle and Foot Goniometric Range of Motion Ankle and Foot Right Active Ankle/Foot ROM WFL Yes Left Active Ankle/Foot ROM WFL No Dorsiflexion with Knee Flexed 5 Dorsiflexion with Knee Extended 0 Ankle and Foot ROM Limitations ROM Limitations Soft Tissue Tightness,Pain PT-OP-M Strength Start: 04/25/20 08:08 Freq: Status: Active Protocol: Document 04/25/20 11:18 [facility] (Rec: 04/25/20 16:55 [facility] [id number]) Ankle/Foot Strength Ankle and Foot Manual Muscle Testing Right Dorsiflexion (L4) 5 Normal Plantarflexion (S1) 5 Normal Inversion 5 Normal Eversion (S1) 5 Normal Comments pain on left Left Dorsiflexion (L4) 4 Good Plantarflexion (S1) 4- Good- Inversion 4 Good Eversion (S1) 4 Good PT-OP-Q Treatments Start: 04/25/20 08:08 Freq: Status: Active Protocol: Document 07/23/20 15:22 [facility] (Rec: 07/23/20 16:25 [facility] [id number]) Cardio Equipment Recumbent Elliptical (MyEveTab) Duration (Minutes) 10 Resistance 2 Seat Position 5 Therapeutic Exercises Standing Exercises soleus stretch Standing Exercise Name heel on the floor Equipment Used grab bar Reps/Minutes 8 x2 Comments AP weight shift, with small staggered stance. forefoot push off Standing Exercise Name on ball of the foot Equipment Used grab bar Reps/Minutes 8 x2 Comments AP weight shift, with small staggered stance. Reported painin toe today Gait Training Gait Activity level Treatment Focus heel/toe pattern with decreased lateral sway, gluteal activation Manual Therapy Treatment Soft Tissue Mobilization hip adductors Mobilization Type Rolling,Sustained Pressure Intensity/Depth Moderate Body Position Supine Comments less tenderness noted today Pt felt better to amb after STM. calf Body Location L calf Mobilization Type Sustained Pressure,Trigger Point Release Intensity/Depth Moderate Body Position Sitting Taping 1 Type of Tape Kinesio Tape Skin Inspection good Comments achilles with 2 I strips PT-OP-R Modalities Start: 04/25/20 08:08 Freq: Status: Active Protocol: Document 07/04/20 13:04 [facility] (Rec: 07/04/20 17:13 [facility] [id number]) Hot Pack/Cold Pack Treatment Cold Pack Location lumbar spine (ice pack) and left foot/heel (cryocuff) Patient Position Sitting Treatment Duration (minutes) 10 Patient Tolerance Good Iontophoresis Treatment left heel/medial retromalleolar region Treatment Medication Dexamethasone (-) Medication Amount (mL) (ml) 1 Medication Dosage 4mg/ml Treatment Polarity Negative to Negative Patient Tolerance Good Ultrasound Therapy Treatment left heel Patient Position Sidelying Coupling Medium Ultrasound Gel Applicator Size (cm2) 2 Mode Setting Pulsed Duty Cycle 50% Intensity Setting (w/cm2) 1.0 Comments heel, retromalleolar PT-OP-T Assessment and Plan Start: 04/25/20 08:08 Freq: Status: Active Protocol: Document 07/23/20 15:22 [facility] (Rec: 07/24/20 14:52 [facility] [id number]) Physical Therapy Assessment Goals steps climibing Group Home Goal (LTG) Pt will be able to climb steps without handrails so pt can go through steps from the backyard. LTG Duration 8 weeks activity tolerance Short Term Goal (STG) cont in progress 07/09 pt completed 5 miles last week but did significant pain for a day Pt will be able to teetee 4 miles in total a week with pain no more than 2/10 STG Duration 4 weeks Terrazzo Grinder Goal (LTG) pt will be able to teetee 5 miles in total a week with pain no more than 2/10 LTG Duration 8 weeks Four Impairment weakness left calf with atrophy Short Term Goal (STG) 06/20 goal met strength at 4+/5 for L ankle and big toe with full ROM. Terrazzo Grinder Goal (LTG) Improve strength left ankle motions to at least 4+/5, with no greater than 1 cm difference in muscle bulk in calves. LTG Duration 06/24/20 Three Impairment antalgic gait Short Term Goal (STG) 06/20 goal met Pt has not been using any assistive device during rehab. Group Home Goal (LTG) cont in progress 07/09 Pt still shows mild limp depends on amb distance. She is currently walking with less of a heel strike to minimize pressure at heel patient to resume ability to take walks with minimal to no pain or limp, using least restrictive assistive device as needed LTG Duration 8 weeks Two Impairment edema Short Term Goal (STG) 07/09 minimal edema noted but cont to improve. Terrazzo Grinder Goal (LTG) Minimal to no edema left heel and malleolar region LTG Duration 8 weeks One Impairment pain Short Term Goal (STG) 06/20 goal met pt states 1/10 pain in general , and 2/10 for walking but sometimes went up to 4/10 Group Home Goal (LTG) Decrease pain to no greater than 2/10 left heel LTG Duration 06/24/20 Assessment Summary Assessment Continue to recommend aquatic exercise for patient but she reports current temperature at pool too cold for her; feel it would be best place for her to work on overall fitness, weight reduction, and exercise in a gravity lessened environment. After discussion she is going to obtain a lumbar support due to also being limited in activity by LBP. Did not discuss orthotics but will at next session. Physical Therapy Plan Frequency and Duration Frequency of Treatment 1x/Week Duration of Treatment 4 weeks Plan of Care Start Date 07/18/20 Plan of Care End Date 08/19/20 Therapeutic Interventions Therapeutic Interventions Aquatic Therapy,Balance Training,Gait Training,Home Exercise Program,Joint Mobilizations,Manual Therapy, Neuromuscular Re-education, Patient/Caregiver Education, Self-Care/Home Management,Soft Tissue Mobilization,Taping, Therapeutic Activities, Therapeutic Exercises Next Visit Focus/Plan Next Note Type Treatment Note Next Visit Plan Continue PT to decrease pain, improve activity tolerance. Discuss whether patient pursued any orthotic options.
--- NOTE | 2020-07-30 16:22 | PT.OTN ---
Current Diagnoses Muscle wasting and atrophy, not elsewhere classified, left lower leg (07/30/20) Unspecified disorder of synovium and tendon, left ankle and foot (07/30/20) Pain in unspecified foot (07/30/20) Other abnormalities of gait and mobility (07/30/20) Weakness (07/30/20) Physical Therapy Treatment Note PT-OP-A Visit Information Start: 04/25/20 08:08 Freq: Status: Active Protocol: Document 07/30/20 14:36 HH (Rec: 07/30/20 16:22 HH [id number]) Out-Patient Physical Therapy Visit Information Visit Information Visit Type Treatment Note Visit Start Time 14:32 Visit Stop Time 15:15 Total Visit Minutes 43 Visit Number 25 Number of HAND II CUTTER Visits 0 PT-OP-B Current Condition Start: 04/25/20 08:08 Freq: Status: Active Protocol: Document 04/25/20 11:18 SAK (Rec: 04/25/20 12:19 SAK [id number]) Current Condition History of Current Condition Onset Date 1 year Current Complaints pain right heel. History of Current Condition Reports approximately 1 year ago walking in cardiac rehab, took a step and felt something pop in the back of her right foot, has had pain in her heel since, unable to wear shoes with back, swollen at heel. Pain is constant, worse with any pressure. Can't take walks, no exercise bike with Covid19. Has been doing foot and ankle ROM, heat, ice as recommended by her doctor. Prior treatment for compression fracture right foot requiring the use of a boot. Has cane but tries not to use. Has difficulty keeping compression socks from rolling down so she doesn't use. Foot pain complicated by severe back pain and right sciatica. Prior Treatments and Tests Patient reports x-ray at [facility] showed bone spur in her right heel. Has neuropathy in feet. 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 And i am doing okay so far. I noticed that once i hit 2 miles [place] in a day then my heel will get sore and hurting . PT-OP-G Mobility & Gait Start: 04/25/20 08:08 Freq: Status: Active Protocol: Document 04/25/20 11:18 SAK (Rec: 04/25/20 16:55 [facility] [id number]) OP Gait Assessment Assistive Devices Assistive Device None Gait Deviations General Gait Pattern Antalgic Factors Limiting Gait Function Factors Limiting Gait Function Pain PT-OP-J Posture/Palpation/Skin Start: 04/25/20 08:08 Freq: Status: Active Protocol: Document 04/25/20 11:18 SAK (Rec: 04/25/20 16:55 [facility] [id number]) Posture Evaluation Position Standing Ankle/Foot Posture (L) Pronated,(R) Pronated Foot Arch (L) Low Arch,(R) Low Arch Palpation Assessment Location posterior right heel Palpation Findings Edema,Tenderness Skin Assessment Edema Assessment right heel, retromalleolar Edema Type Non-Pitting Edema Degree 2+ Edema Appearance Puffy Circumference Measurement 4 Location calf right Measurement (Centimeters) 48.8 3 Location calf left Measurement (Centimeters) 46.6 2 Location malleoli right Measurement (Centimeters) 28.2 1 Location malleoli left Measurement (Centimeters) 28.9 PT-OP-K Range of Motion Start: 04/25/20 08:08 Freq: Status: Active Protocol: Document 04/25/20 11:18 SAK (Rec: 04/25/20 16:55 [facility] [id number]) Ankle and Foot Goniometric Range of Motion Ankle and Foot Right Active Ankle/Foot ROM WFL Yes Left Active Ankle/Foot ROM WFL No Dorsiflexion with Knee Flexed 5 Dorsiflexion with Knee Extended 0 Ankle and Foot ROM Limitations ROM Limitations Soft Tissue Tightness,Pain PT-OP-M Strength Start: 04/25/20 08:08 Freq: Status: Active Protocol: Document 04/25/20 11:18 [facility] (Rec: 04/25/20 16:55 [facility] [id number]) Ankle/Foot Strength Ankle and Foot Manual Muscle Testing Right Dorsiflexion (L4) 5 Normal Plantarflexion (S1) 5 Normal Inversion 5 Normal Eversion (S1) 5 Normal Comments pain on left Left Dorsiflexion (L4) 4 Good Plantarflexion (S1) 4- Good- Inversion 4 Good Eversion (S1) 4 Good PT-OP-Q Treatments Start: 04/25/20 08:08 Freq: Status: Active Protocol: Document 07/30/20 14:36 (Rec: 07/30/20 16:22 [id number]) Cardio Equipment Recumbent Stepper (Sci-Fit) Duration (Minutes) 10 Resistance 3.0 Seat Position 8 Other 1.19 Gym Equipment Shuttle Recovery heel raise Resistance 50# Shuttle Recovery Platform Stable Reps/Time 3 sets x 10 leg press Resistance 50- 75# Shuttle Recovery Platform Stable Reps/Time 3 sets x 10 . unstable for 1 set Therapeutic Exercises Standing Exercises soleus stretch Standing Exercise Name heel on the floor Equipment Used grab bar Reps/Minutes 8 x2 Comments AP weight shift, with small staggered stance.foot point straight forefoot push off Standing Exercise Name on ball of the foot Equipment Used grab bar Reps/Minutes 8 x2 Comments AP weight shift, with small staggered stance. foot point straight Manual Therapy Treatment Soft Tissue Mobilization hip adductors Mobilization Type Rolling,Sustained Pressure Intensity/Depth Moderate Body Position Supine Comments less tenderness noted today Pt felt better to amb after STM. PT-OP-R Modalities Start: 04/25/20 08:08 Freq: Status: Active Protocol: Document 07/04/20 13:04 [facility] (Rec: 07/04/20 17:13 [facility] [id number]) Hot Pack/Cold Pack Treatment Cold Pack Location lumbar spine (ice pack) and left foot/heel (cryocuff) Patient Position Sitting Treatment Duration (minutes) 10 Patient Tolerance Good Iontophoresis Treatment left heel/medial retromalleolar region Treatment Medication Dexamethasone (-) Medication Amount (mL) (ml) 1 Medication Dosage 4mg/ml Treatment Polarity Negative to Negative Patient Tolerance Good Ultrasound Therapy Treatment left heel Patient Position Sidelying Coupling Medium Ultrasound Gel Applicator Size (cm2) 2 Mode Setting Pulsed Duty Cycle 50% Intensity Setting (w/cm2) 1.0 Comments heel, retromalleolar PT-OP-T Assessment and Plan Start: 04/25/20 08:08 Freq: Status: Active Protocol: Document 07/30/20 14:36 HH (Rec: 07/30/20 16:22 HH [id number]) Physical Therapy Assessment Goals steps climibing Prison Goal (LTG) Pt will be able to climb steps without handrails so pt can go through steps from the backyard. LTG Duration 8 weeks activity tolerance Short Term Goal (STG) cont in progress 07/09 pt completed 5 miles last week but did significant pain for a day Pt will be able to teetee 4 miles in total a week with pain no more than 2/10 STG Duration 4 weeks Furnace Repairer Goal (LTG) pt will be able to teetee 5 miles in total a week with pain no more than 2/10 LTG Duration 8 weeks Four Impairment weakness left calf with atrophy Short Term Goal (STG) 06/20 goal met strength at 4+/5 for L ankle and big toe with full ROM. Furnace Repairer Goal (LTG) Improve strength left ankle motions to at least 4+/5, with no greater than 1 cm difference in muscle bulk in calves. LTG Duration 06/24/20 Three Impairment antalgic gait Short Term Goal (STG) 06/20 goal met Pt has not been using any assistive device during rehab. Furnace Repairer Goal (LTG) cont in progress 07/09 Pt still shows mild limp depends on amb distance. She is currently walking with less of a heel strike to minimize pressure at heel patient to resume ability to take walks with minimal to no pain or limp, using least restrictive assistive device as needed LTG Duration 8 weeks Two Impairment edema Short Term Goal (STG) 07/09 minimal edema noted but cont to improve. Furnace Repairer Goal (LTG) Minimal to no edema left heel and malleolar region LTG Duration 8 weeks One Impairment pain Short Term Goal (STG) 06/20 goal met pt states 1/10 pain in general , and 2/10 for walking but sometimes went up to 4/10 Furnace Repairer Goal (LTG) Decrease pain to no greater than 2/10 left heel LTG Duration 06/24/20 Assessment Summary Assessment cont progress as tolerated today. Spent some time to review soleus stretch and forefoot push off. Pt teetee session okay. Physical Therapy Plan Next Visit Focus/Plan Next Note Type Treatment Note Next Visit Plan Continue PT to decrease pain, improve activity tolerance. Discuss whether patient pursued any orthotic options.
--- NOTE | 2020-08-15 08:32 | PT.OPDS ---
Current Diagnoses Muscle wasting and atrophy, not elsewhere classified, left lower leg (07/30/20) Unspecified disorder of synovium and tendon, left ankle and foot (07/30/20) Pain in unspecified foot (07/30/20) Other abnormalities of gait and mobility (07/30/20) Weakness (07/30/20) Visit Care Team Role Provider Type Faustino Montesinos MD Primary Care Provider Physician Specialty: Internal Medicine Address: [address] [place] [address], [id number] Email: [email or web address] Attending Provider Non-Staff Referring Provider Specialty: Podiatry Address: [address] [place], [address] Email: Visit Number Visit Number 25 Discharge Summary PT-OP-B Current Condition Start: 04/25/20 08:08 Freq: Status: Active Protocol: Document 04/25/20 11:18 [facility] (Rec: 04/25/20 12:19 [facility] [id number]) Current Condition History of Current Condition Onset Date 1 year Current Complaints pain right heel. History of Current Condition Reports approximately 1 year ago walking in cardiac rehab, took a step and felt something pop in the back of her right foot, has had pain in her heel since, unable to wear shoes with back, swollen at heel. Pain is constant, worse with any pressure. Can't take walks, no exercise bike with Covid19. Has been doing foot and ankle ROM, heat, ice as recommended by her doctor. Prior treatment for compression fracture right foot requiring the use of a boot. Has cane but tries not to use. Has difficulty keeping compression socks from rolling down so she doesn't use. Foot pain complicated by severe back pain and right sciatica. Prior Treatments and Tests Patient reports x-ray at [facility] showed bone spur in her right heel. Has neuropathy in feet. 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 And i am doing okay so far. I noticed that once i hit 2 miles [place] in a day then my heel will get sore and hurting . PT-OP-G Mobility & Gait Start: 04/25/20 08:08 Freq: Status: Active Protocol: Document 04/25/20 11:18 [facility] (Rec: 04/25/20 16:55 [facility] [id number]) OP Gait Assessment Assistive Devices Assistive Device None Gait Deviations General Gait Pattern Antalgic Factors Limiting Gait Function Factors Limiting Gait Function Pain PT-OP-J Posture/Palpation/Skin Start: 04/25/20 08:08 Freq: Status: Active Protocol: Document 04/25/20 11:18 [facility] (Rec: 04/25/20 16:55 [facility] [id number]) Posture Evaluation Position Standing Ankle/Foot Posture (L) Pronated,(R) Pronated Foot Arch (L) Low Arch,(R) Low Arch Palpation Assessment Location posterior right heel Palpation Findings Edema,Tenderness Skin Assessment Edema Assessment right heel, retromalleolar Edema Type Non-Pitting Edema Degree 2+ Edema Appearance Puffy Circumference Measurement 4 Location calf right Measurement (Centimeters) 48.8 3 Location calf left Measurement (Centimeters) 46.6 2 Location malleoli right Measurement (Centimeters) 28.2 1 Location malleoli left Measurement (Centimeters) 28.9 PT-OP-K Range of Motion Start: 04/25/20 08:08 Freq: Status: Active Protocol: Document 04/25/20 11:18 [facility] (Rec: 04/25/20 16:55 [facility] [id number]) Ankle and Foot Goniometric Range of Motion Ankle and Foot Right Active Ankle/Foot ROM WFL Yes Left Active Ankle/Foot ROM WFL No Dorsiflexion with Knee Flexed 5 Dorsiflexion with Knee Extended 0 Ankle and Foot ROM Limitations ROM Limitations Soft Tissue Tightness,Pain PT-OP-M Strength Start: 04/25/20 08:08 Freq: Status: Active Protocol: Document 04/25/20 11:18 [facility] (Rec: 04/25/20 16:55 [facility] [id number]) Ankle/Foot Strength Ankle and Foot Manual Muscle Testing Right Dorsiflexion (L4) 5 Normal Plantarflexion (S1) 5 Normal Inversion 5 Normal Eversion (S1) 5 Normal Comments pain on left Left Dorsiflexion (L4) 4 Good Plantarflexion (S1) 4- Good- Inversion 4 Good Eversion (S1) 4 Good PT-OP-T Assessment and Plan Start: 04/25/20 08:08 Freq: Status: Active Protocol: Document 08/12/20 16:00 [facility] (Rec: 08/15/20 08:32 [facility] [id number]) Physical Therapy Plan Discharge Physical Therapy Discharge Reasons Patient Request Discharge Comments D/C from PT for heel pain, initiate PT for lymphedema on different account.
== END 2020-08-16 14:28 ==
LOC: PHYS 14:30
PROVIDERS: PCP Internal Medicine; Referring Provider Podiatrist; Visit Provider Podiatrist
DX: M79.673 Pain in unspecified foot (principal); M67.972 Unspecified disorder of synovium and tendon, left ankle and foot; R26.89 Other abnormalities of gait and mobility; R53.1 Weakness; M62.562 Muscle wasting and atrophy, not elsewhere classified, left lower leg
CPT/HCPCS: 97010; 97035; 97110; 97140; 97162; 97535

== ENCOUNTER → 2020-08-09 10:42 | Outpatient (CLI) | payer MEDICARE, OTHER, SELFPAY ==
--- NOTE | 2020-08-09 10:45 | DI.US.S_ITS ---
PROCEDURE: US ABDOMEN COMPLETE INDICATIONS: Right upper quadrant pain TECHNIQUE: Real-time scanning was performed of the abdominal and retroperitoneal organs, with image documentation. COMPARISON: [facility], US, RENAL COMPLETE, 01/27/2018, 18:45. FINDINGS: Liver: The liver demonstrates normal size. The liver demonstrates generalized increased echogenicity. This decreases ultrasound sensitivity for detection of hepatic masses. Gallbladder: Removed. Biliary ducts: Intrahepatic bile ducts are non-dilated. Extrahepatic bile duct caliber measures 7 mm. Normal is 6-7 mm or less in diameter, or 10 mm or less post-cholecystectomy. Pancreas: The pancreas demonstrates an apparent fatty appearance. Spleen: Spleen is normal in size and homogeneous in echotexture. Kidneys: Kidneys are normal in size and echotexture. Right kidney measures 10.8 cm long; left kidney measures 10.5 cm long. No hydronephrosis or nephrolithiasis. No solid masses. A left kidney cyst is seen that measures 1.3 cm. Aorta: Visualized aorta is normal in caliber at less than 3 cm. Iliacs: Proximal common iliac arteries are normal in caliber at less than 2.5 cm. IVC: Intrahepatic inferior vena cava is patent. Miscellaneous: No free abdominal fluid. IMPRESSION: Status post cholecystectomy. No biliary dilatation. The liver demonstrates increased echogenicity. This finding is nonspecific, yet it is most commonly attributed to fatty infiltration. Apparent fatty pancreas. If it would be helpful for clinical management decision making, please consider a dedicated CT study with IV and oral contrast for further evaluation. Incidental note is made of: Simple appearing left renal cyst Dictated by: Todd Garcia M.D. on 08/09/2020 at 12:20 Approved by: Todd Garcia M.D. on 08/09/2020 at 12:23
== END ==
PROVIDERS: PCP Internal Medicine; Referring Provider Internal Medicine; Visit Provider Internal Medicine
DX: R10.11 Right upper quadrant pain (principal); N28.1 Cyst of kidney, acquired; Z90.49 Acquired absence of other specified parts of digestive tract
CPT/HCPCS: 76700

== ENCOUNTER 2020-08-27 13:45 | Outpatient (RCR) | payer MEDICARE, OTHER, SELFPAY ==
--- NOTE | 2020-08-12 13:45 | PT.OPPOC ---
Physical, Occupational & Speech Therapy At [facility] Current Diagnoses Lymphedema, not elsewhere classified (08/14/20) Visit Care Team Role Provider Type Faustino Montesinos MD Primary Care Provider Physician Specialty: Internal Medicine Address: [address] [place] [address], [address] Email: [email or web address] Avelino Montesinos MD Attending Provider Non-Staff Referring Provider Specialty: Internal Medicine Address: [facility] [address], [address] Email: Plan Of Care PT-OP-T Assessment and Plan Start: 08/12/20 08:12 Freq: Status: Active Protocol: Document 08/12/20 13:45 SAK (Rec: 08/13/20 17:08 SAK [id number]) Physical Therapy Assessment Rehab Potential Rehabilitation Potential Fair Evaluation Complexity Number of Personal Factors/Comorbidities 3 or More Number of Body Systems Impaired 3 Clinical Presentation at Evaluation Evolving Impairments Impairments Edema,Functional Activities, Functional Mobility,ROM Goals Four Impairment limited ability to ambulate due to swelling bilateral LE's Warrant Clerk Goal (LTG) Decrease swelling in LE's sufficient to allow patient to ambulate community distances without difficulty LTG Duration 11/11/20 Three Impairment patient unable to fit into many of her clothes due to lymphedema Warrant Clerk Goal (LTG) reduce lymphedem sufficient to allow patient to return to wearing her previous clothes to improve her quality of life . LTG Duration 11/11/20 Two Impairment ROM Longterm Goal (LTG) Decrease lymphedema sufficient to allow patient to reach overhead for all usual ADL activities LTG Duration 11/11/20 One Impairment lymphedema left UE, iram LE's Short Term Goal (STG) Patient to be instructed in pathology, prevention, and all aspects of self care for lymphedema. STG Duration 09/11/20 Warrant Clerk Goal (LTG) Decrease lymphedema to a stable level (no increase or decrease greater than 1 cm over the course of 1 week) and patient to be fit with appropriate compression garments. She will demonstrate independence in self-care for lymphedema management. 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 Cause is uncertain due to no surgery or trauma except for multiple needle sticks left UE, and potential significant family history. She would benefit from skilled physical therapy for lymphedema management to include patient education, manual lymphatic drainage, therapeutic exercises, lymphedema wrapping, and assistance with obtaining appropriate compression garments. Complicating our treatment for her lymphedema is an upcoming back surgery, as well as possible truncal lymphedema as well; patient did have abdominal CT last week due to concern about her abdominal swelling. Physical Therapy Plan Frequency and Duration Frequency of Treatment 20 visits Duration of Treatment 12 weeks Plan of Care Start Date 08/12/20 Plan of Care End Date 11/11/20 Therapeutic Interventions Therapeutic Interventions Home Exercise Program, Lymphedema Management,Manual Therapy,Patient/Caregiver Education,Self-Care/Home Management,Therapeutic Exercises Next Visit Focus/Plan Next Note Type Treatment Note Next Visit Plan MLD, lymphedema wrapping. Patient to make appointment with [facility] in [place] to consult regarding compression garments and check on outcome of abdominal CT. Plan of Care Dates Plan of Care Start Date 08/12/20 Plan of Care End Date 11/11/20 Electronically Signed by: Macey Silvestre, PT 08/14/20 0667 Please Sign and Return: I have reviewed this Plan of Care and certify that the skilled therapy services above are required to meet the patient?s needs. Physician Signature Date Printed Name and Credentials Clinical Instructor Signature Printed Name and Credentials
--- NOTE | 2020-08-12 13:45 | PT.OIE ---
Current Diagnoses Lymphedema, not elsewhere classified (08/14/20) Past Medical History (Last Reviewed 03/10/19 @ 19:14 by Thao Beltre DO) Coronary artery disease (Acute) Diabetes (Acute) Hyperlipidemia (Acute) Hypertension (Acute) Visit Care Team Role Provider Type Faustino Montesinos MD Primary Care Provider Physician Specialty: Internal Medicine Address: [address] [place] [address], [address] Email: [email or web address] Avelino Montesinos MD Attending Provider Non-Staff Referring Provider Specialty: Internal Medicine Address: [address] [address], [place], [address] Email: Physical Therapy Initial Evaluation PT-OP-A Visit Information Start: 08/12/20 08:12 Freq: Status: Active Protocol: Document 08/12/20 13:45 SAK (Rec: 08/12/20 16:45 SAK [id number]) Out-Patient Physical Therapy Visit Information Visit Information Visit Type Initial Evaluation Visit Start Time 13:45 Visit Stop Time 15:10 Total Visit Minutes 80 Visit Number 1 Number of GLOVE MAKER Visits 0 Evaluation Information Evaluation Date 08/12/20 Precautions Precautions Abdominal surgeries: appendectomy, cholecystectomy Lumbar surgery PT-OP-B Current Condition Start: 08/12/20 08:12 Freq: Status: Active Protocol: Document 08/12/20 13:45 SAK (Rec: 08/12/20 16:50 SAK [id number]) Current Condition History of Current Condition Onset Date 3+ years Current Complaints left UE swelling, iram LE swelling, abdominal swelling History of Current Condition Patient reports noticing swelling start in her left UE for no known reason 3+ years ago; no trauma, surgery, injury except she reports with abdominal surgeries she had multiple needle sticks (50+) over the course of 1 week, mostly in left hand and that she has had some numbness in that hand ever since. The swelling makes it difficult for her to lift her left arm, and she has difficulty getting clothes to fit. Also reports iram LE swelling left greater than right noticed approx 1 year ago, no known cause except history of extensive abdominal surgeries. Patient also noting significant abdominal swelling over the past 1 month for no known reason. Having CT done. Patient does report that she has memories from when she was young of a couple aunts having their legs wrapped but she wasn't aware of the reason and has no family members who are able to tell her. Treatment Goals Patient/Caregiver Goals Decrease swelling, aching, be able to lift her arm overhead, fit arm into clothes. Decrease swelling bilateral LE 's to allow for improved mobility and decreased pain. Current Functional Impairments (Reported) Functional Limitations- ADL's difficulty lifting her left arm for all ADL's PT-OP-F Manual Assessment Start: 08/12/20 08:12 Freq: Status: Active Protocol: Document 08/12/20 13:45 SAK (Rec: 08/13/20 17:08 [facility] [id number]) Manual Assessments Soft Tissue Assessment Soft Tissue Mobility Assessment Palpable soft tissue fibrosis left proximal forearm, bilateral thighs. PT-OP-G Mobility & Gait Start: 08/12/20 08:12 Freq: Status: Active Protocol: Document 08/12/20 13:45 SAK (Rec: 08/13/20 17:08 [facility] [id number]) OP Gait Assessment Assistive Devices Assistive Device None Gait Deviations General Gait Pattern Antalgic,Lateral Trunk Lean Factors Limiting Gait Function Factors Limiting Gait Function Pain Comments Gait Comments LE swelling also limiting factor Stair Climbing Evaluation Evaluation Level of Assist On Stairs Independent Technique/Endurance Stair Climbing Technique Step to Step PT-OP-K Range of Motion Start: 08/12/20 08:12 Freq: Status: Active Protocol: Document 08/12/20 13:45 SAK (Rec: 08/13/20 17:08 [facility] [id number]) Shoulder Goniometric Range of Motion Shoulder Left Active Shoulder ROM WFL No Testing Position Sitting Flexion 115 Extension 15 Abduction 85 External Rotation at 90 degrees 60 Abduction Internal Rotation 55 right Shoulder ROM WFL Yes Shoulder ROM Limitations Shoulder ROM Limitations Swelling Hip Goniometric Range of Motion Hip iram Hip ROM WFL No Hip ROM Limitations Hip ROM Limitations Swelling Comments mod limitations at hips left greater than right due to back pain; patient scheduled to have back surgery next month. Knee Goniometric Range of Motion Knee iram Knee ROM WFL Yes PT-OP-N Lymphedema Start: 08/12/20 08:12 Freq: Status: Active Protocol: Document 08/12/20 13:45 SAK (Rec: 08/14/20 12:02 [facility] [id number]) Lymphedema Measurements Upper Extremity Circumference Measurements Left Affected MCP 19 cm Wrist 19.5 cm 5 cm From Distal Crease 25.2 cm 10 cm From Distal Crease 30.6 cm 15 cm From Distal Crease 34.9 cm 20 cm From Distal Crease 37.3 cm 25 cm From Distal Crease 36.5 cm 30 cm From Distal Crease 46 cm 35 cm From Distal Crease 50 cm 40 cm From Distal Crease 45.1 cm Axilla 48.7 cm Right Unaffected MCP 18.7 cm Wrist 17.7 cm 5 cm From Distal Crease 23.4 cm 10 cm From Distal Crease 27.5 cm 15 cm From Distal Crease 31.2 cm 20 cm From Distal Crease 33 cm 25 cm From Distal Crease 37.4 cm 30 cm From Distal Crease 45 cm 35 cm From Distal Crease 45.6 cm 40 cm From Distal Crease 43.3 cm Axilla 48.2 cm PT-OP-Q Treatments Start: 08/12/20 08:12 Freq: Status: Active Protocol: Document 08/12/20 13:45 [facility] (Rec: 08/13/20 17:08 [facility] [id number]) Lymphedema Treatment Manual Lymphatic Drainage Location for left UE lymphedema Duration 25 Lymphedema Wrapping Other unable due to time constraints Sequential Lymphedema Exercises Comments issued written instructions Compression Garment Assessment Compression Garment Assessment Details discussed compression garment options, patient to make appointment with [facility] in [place] Patient Education Lymphedema Pathology issued written information and discussed Lymphedema Prevention issued written information and discussed Lymphedema Precautions issued written information and discussed Compression Garments discussed options and given information for [facility] and other regional optio Self Manual Lymphatic Drainage issued written information and discussed Sequential Lymphedema Exercises issued written information and discussed PT-OP-T Assessment and Plan Start: 08/12/20 08:12 Freq: Status: Active Protocol: Document 08/12/20 13:45 [facility] (Rec: 08/13/20 17:08 [facility] [id number]) Physical Therapy Assessment Rehab Potential Rehabilitation Potential Fair Evaluation Complexity Number of Personal Factors/Comorbidities 3 or More Number of Body Systems Impaired 3 Clinical Presentation at Evaluation Evolving Impairments Impairments Edema,Functional Activities, Functional Mobility,ROM Goals Four Impairment limited ability to ambulate due to swelling bilateral LE's Cheesemaker Goal (LTG) Decrease swelling in LE's sufficient to allow patient to ambulate community distances without difficulty LTG Duration 11/11/20 Three Impairment patient unable to fit into many of her clothes due to lymphedema Cheesemaker Goal (LTG) reduce lymphedem sufficient to allow patient to return to wearing her previous clothes to improve her quality of life . LTG Duration 11/11/20 Two Impairment ROM Usp Goal (LTG) Decrease lymphedema sufficient to allow patient to reach overhead for all usual ADL activities LTG Duration 11/11/20 One Impairment lymphedema left UE, iram LE's Short Term Goal (STG) Patient to be instructed in pathology, prevention, and all aspects of self care for lymphedema. STG Duration 09/11/20 Cheesemaker Goal (LTG) Decrease lymphedema to a stable level (no increase or decrease greater than 1 cm over the course of 1 week) and patient to be fit with appropriate compression garments. She will demonstrate independence in self-care for lymphedema management. 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 Cause is uncertain due to no surgery or trauma except for multiple needle sticks left UE, and potential significant family history. She would benefit from skilled physical therapy for lymphedema management to include patient education, manual lymphatic drainage, therapeutic exercises, lymphedema wrapping, and assistance with obtaining appropriate compression garments. Complicating our treatment for her lymphedema is an upcoming back surgery, as well as possible truncal lymphedema as well; patient did have abdominal CT last week due to concern about her abdominal swelling. Physical Therapy Plan Frequency and Duration Frequency of Treatment 20 visits Duration of Treatment 12 weeks Plan of Care Start Date 08/12/20 Plan of Care End Date 11/11/20 Therapeutic Interventions Therapeutic Interventions Home Exercise Program, Lymphedema Management,Manual Therapy,Patient/Caregiver Education,Self-Care/Home Management,Therapeutic Exercises Next Visit Focus/Plan Next Note Type Treatment Note Next Visit Plan MLD, lymphedema wrapping. Patient to make appointment with [facility] ervin [place] to consult regarding compression garments and check on outcome of abdominal CT.
--- NOTE | 2020-08-13 12:15 | PT.OTN ---
Current Diagnoses Lymphedema, not elsewhere classified (08/14/20) Physical Therapy Treatment Note PT-OP-A Visit Information Start: 08/12/20 08:12 Freq: Status: Active Protocol: Document 08/13/20 13:00 [facility] (Rec: 08/14/20 12:14 [facility] [id number]) Out-Patient Physical Therapy Visit Information Visit Information Visit Type Treatment Note Visit Note No new c/o. Reports weight down 1 pound today. Has appointment with [facility] in [place] tomorrow to consult regarding compression garments Visit Start Time 13:00 Visit Stop Time 13:45 Total Visit Minutes 45 Visit Number 1 Number of INVENTORY CONTROL SUPERVISOR Visits 0 Evaluation Information Evaluation Date 08/12/20 Precautions Precautions Abdominal surgeries: appendectomy, cholecystectomy Lumbar surgery PT-OP-B Current Condition Start: 08/12/20 08:12 Freq: Status: Active Protocol: Document 08/12/20 13:45 [facility] (Rec: 08/12/20 16:50 [facility] [id number]) Current Condition History of Current Condition Onset Date 3+ years Current Complaints left UE swelling, iram LE swelling, abdominal swelling History of Current Condition Patient reports noticing swelling start in her left UE for no known reason 3+ years ago; no trauma, surgery, injury except she reports with abdominal surgeries she had multiple needle sticks (50+) over the course of 1 week, mostly in left hand and that she has had some numbness in that hand ever since. The swelling makes it difficult for her to lift her left arm, and she has difficulty getting clothes to fit. Also reports iram LE swelling left greater than right noticed approx 1 year ago, no known cause except history of extensive abdominal surgeries. Patient also noting significant abdominal swelling over the past 1 month for no known reason. Having CT done. Patient does report that she has memories from when she was young of a couple aunts having their legs wrapped but she wasn't aware of the reason and has no family members who are able to tell her. Treatment Goals Patient/Caregiver Goals Decrease swelling, aching, be able to lift her arm overhead, fit arm into clothes. Decrease swelling bilateral LE 's to allow for improved mobility and decreased pain. Current Functional Impairments (Reported) Functional Limitations- ADL's difficulty lifting her left arm for all ADL's PT-OP-F Manual Assessment Start: 08/12/20 08:12 Freq: Status: Active Protocol: Document 08/12/20 13:45 [facility] (Rec: 08/13/20 17:08 [facility] [id number]) Manual Assessments Soft Tissue Assessment Soft Tissue Mobility Assessment Palpable soft tissue fibrosis left proximal forearm, bilateral thighs. PT-OP-G Mobility & Gait Start: 08/12/20 08:12 Freq: Status: Active Protocol: Document 08/12/20 13:45 [facility] (Rec: 08/13/20 17:08 [facility] [id number]) OP Gait Assessment Assistive Devices Assistive Device None Gait Deviations General Gait Pattern Antalgic,Lateral Trunk Lean Factors Limiting Gait Function Factors Limiting Gait Function Pain Comments Gait Comments LE swelling also limiting factor Stair Climbing Evaluation Evaluation Level of Assist On Stairs Independent Technique/Endurance Stair Climbing Technique Step to Step PT-OP-K Range of Motion Start: 08/12/20 08:12 Freq: Status: Active Protocol: Document 08/12/20 13:45 [facility] (Rec: 08/13/20 17:08 [facility] [id number]) Shoulder Goniometric Range of Motion Shoulder Left Active Shoulder ROM WFL No Testing Position Sitting Flexion 115 Extension 15 Abduction 85 External Rotation at 90 degrees 60 Abduction Internal Rotation 55 right Shoulder ROM WFL Yes Shoulder ROM Limitations Shoulder ROM Limitations Swelling Hip Goniometric Range of Motion Hip iram Hip ROM WFL No Hip ROM Limitations Hip ROM Limitations Swelling Comments mod limitations at hips left greater than right due to back pain; patient scheduled to have back surgery next month. Knee Goniometric Range of Motion Knee iram Knee ROM WFL Yes PT-OP-N Lymphedema Start: 08/12/20 08:12 Freq: Status: Active Protocol: Document 08/12/20 13:45 [facility] (Rec: 08/14/20 12:02 [facility] [id number]) Lymphedema Measurements Upper Extremity Circumference Measurements Left Affected MCP 19 cm Wrist 19.5 cm 5 cm From Distal Crease 25.2 cm 10 cm From Distal Crease 30.6 cm 15 cm From Distal Crease 34.9 cm 20 cm From Distal Crease 37.3 cm 25 cm From Distal Crease 36.5 cm 30 cm From Distal Crease 46 cm 35 cm From Distal Crease 50 cm 40 cm From Distal Crease 45.1 cm Axilla 48.7 cm Right Unaffected MCP 18.7 cm Wrist 17.7 cm 5 cm From Distal Crease 23.4 cm 10 cm From Distal Crease 27.5 cm 15 cm From Distal Crease 31.2 cm 20 cm From Distal Crease 33 cm 25 cm From Distal Crease 37.4 cm 30 cm From Distal Crease 45 cm 35 cm From Distal Crease 45.6 cm 40 cm From Distal Crease 43.3 cm Axilla 48.2 cm PT-OP-Q Treatments Start: 08/12/20 08:12 Freq: Status: Active Protocol: Document 08/13/20 13:00 [facility] (Rec: 08/14/20 12:14 [facility] [id number]) Lymphedema Treatment Manual Lymphatic Drainage Location for left UE and trunk lymphedema Duration 25 Lymphedema Wrapping Body Location left UE Materials Skin care with low pH lotion application, Tricofix, Artiflex, Comprilan. Other patient to wear overnight as possible. PT-OP-T Assessment and Plan Start: 08/12/20 08:12 Freq: Status: Active Protocol: Document 08/13/20 13:00 [facility] (Rec: 08/14/20 12:14 [facility] [id number]) Physical Therapy Assessment Goals Four Impairment limited ability to ambulate due to swelling bilateral LE's Cans Vacuum Tester Goal (LTG) Decrease swelling in LE's sufficient to allow patient to ambulate community distances without difficulty LTG Duration 11/11/20 Three Impairment patient unable to fit into many of her clothes due to lymphedema Cans Vacuum Tester Goal (LTG) reduce lymphedem sufficient to allow patient to return to wearing her previous clothes to improve her quality of life . LTG Duration 11/11/20 Two Impairment ROM Custodial Goal (LTG) Decrease lymphedema sufficient to allow patient to reach overhead for all usual ADL activities LTG Duration 11/11/20 One Impairment lymphedema left UE, iram LE's Short Term Goal (STG) Patient to be instructed in pathology, prevention, and all aspects of self care for lymphedema. STG Duration 09/11/20 Cans Vacuum Tester Goal (LTG) Decrease lymphedema to a stable level (no increase or decrease greater than 1 cm over the course of 1 week) and patient to be fit with appropriate compression garments. She will demonstrate independence in self-care for lymphedema management. Assessment Summary Assessment Patient weight down 1# after MLD yesterday. Lymphedema wrapping down today, patient expressing concern over it being so uncomfortable but will try to do exercises as instructed and wear as long as possible. Physical Therapy Plan Frequency and Duration Frequency of Treatment 20 visits Duration of Treatment 12 weeks Plan of Care Start Date 08/12/20 Plan of Care End Date 11/11/20 Therapeutic Interventions Therapeutic Interventions Home Exercise Program, Lymphedema Management,Manual Therapy,Patient/Caregiver Education,Self-Care/Home Management,Therapeutic Exercises Next Visit Focus/Plan Next Note Type Treatment Note Next Visit Plan Assess response to lymphedema wrapping, continue MLD, wrapping as tolerated. Patient has appointment at [facility] afer PT tomorrow.
--- NOTE | 2020-08-14 14:36 | PT.OTN ---
Current Diagnoses Lymphedema, not elsewhere classified (08/14/20) Physical Therapy Treatment Note PT-OP-A Visit Information Start: 08/12/20 08:12 Freq: Status: Active Protocol: Document 08/13/20 13:00 [facility] (Rec: 08/14/20 12:14 [facility] [id number]) Out-Patient Physical Therapy Visit Information Visit Information Visit Type Treatment Note Visit Start Time 13:00 Visit Stop Time 13:45 Total Visit Minutes 45 Visit Number 1 Number of DISABILITIES CAREGIVER Visits 0 Evaluation Information Evaluation Date 08/12/20 Precautions Precautions Abdominal surgeries: appendectomy, cholecystectomy Lumbar surgery PT-OP-B Current Condition Start: 08/12/20 08:12 Freq: Status: Active Protocol: Document 08/12/20 13:45 [facility] (Rec: 08/12/20 16:50 [facility] [id number]) Current Condition History of Current Condition Onset Date 3+ years Current Complaints left UE swelling, iram LE swelling, abdominal swelling History of Current Condition Patient reports noticing swelling start in her left UE for no known reason 3+ years ago; no trauma, surgery, injury except she reports with abdominal surgeries she had multiple needle sticks (50+) over the course of 1 week, mostly in left hand and that she has had some numbness in that hand ever since. The swelling makes it difficult for her to lift her left arm, and she has difficulty getting clothes to fit. Also reports iram LE swelling left greater than right noticed approx 1 year ago, no known cause except history of extensive abdominal surgeries. Patient also noting significant abdominal swelling over the past 1 month for no known reason. Having CT done. Patient does report that she has memories from when she was young of a couple aunts having their legs wrapped but she wasn't aware of the reason and has no family members who are able to tell her. Treatment Goals Patient/Caregiver Goals Decrease swelling, aching, be able to lift her arm overhead, fit arm into clothes. Decrease swelling bilateral LE 's to allow for improved mobility and decreased pain. Current Functional Impairments (Reported) Functional Limitations- ADL's difficulty lifting her left arm for all ADL's PT-OP-C Subjective Start: 08/12/20 08:12 Freq: Status: Active Protocol: Document 08/13/20 13:00 [facility] (Rec: 08/14/20 14:33 [facility] [id number]) OP-PT Subjective Patient Comments Patient Comments No new c/o. Reports weight down 1 pound today. Has appointment with [facility] in [place] tomorrow to consult regarding compression garments. Agreeable to lymphedema wrapping today. PT-OP-F Manual Assessment Start: 08/12/20 08:12 Freq: Status: Active Protocol: Document 08/12/20 13:45 [facility] (Rec: 08/13/20 17:08 [facility] [id number]) Manual Assessments Soft Tissue Assessment Soft Tissue Mobility Assessment Palpable soft tissue fibrosis left proximal forearm, bilateral thighs. PT-OP-G Mobility & Gait Start: 08/12/20 08:12 Freq: Status: Active Protocol: Document 08/12/20 13:45 [facility] (Rec: 08/13/20 17:08 [facility] [id number]) OP Gait Assessment Assistive Devices Assistive Device None Gait Deviations General Gait Pattern Antalgic,Lateral Trunk Lean Factors Limiting Gait Function Factors Limiting Gait Function Pain Comments Gait Comments LE swelling also limiting factor Stair Climbing Evaluation Evaluation Level of Assist On Stairs Independent Technique/Endurance Stair Climbing Technique Step to Step PT-OP-K Range of Motion Start: 08/12/20 08:12 Freq: Status: Active Protocol: Document 08/12/20 13:45 [facility] (Rec: 08/13/20 17:08 [facility] [id number]) Shoulder Goniometric Range of Motion Shoulder Left Active Shoulder ROM WFL No Testing Position Sitting Flexion 115 Extension 15 Abduction 85 External Rotation at 90 degrees 60 Abduction Internal Rotation 55 right Shoulder ROM WFL Yes Shoulder ROM Limitations Shoulder ROM Limitations Swelling Hip Goniometric Range of Motion Hip iram Hip ROM WFL No Hip ROM Limitations Hip ROM Limitations Swelling Comments mod limitations at hips left greater than right due to back pain; patient scheduled to have back surgery next month. Knee Goniometric Range of Motion Knee iram Knee ROM WFL Yes PT-OP-N Lymphedema Start: 08/12/20 08:12 Freq: Status: Active Protocol: Document 08/12/20 13:45 [facility] (Rec: 08/14/20 12:02 [facility] [id number]) Lymphedema Measurements Upper Extremity Circumference Measurements Left Affected MCP 19 cm Wrist 19.5 cm 5 cm From Distal Crease 25.2 cm 10 cm From Distal Crease 30.6 cm 15 cm From Distal Crease 34.9 cm 20 cm From Distal Crease 37.3 cm 25 cm From Distal Crease 36.5 cm 30 cm From Distal Crease 46 cm 35 cm From Distal Crease 50 cm 40 cm From Distal Crease 45.1 cm Axilla 48.7 cm Right Unaffected MCP 18.7 cm Wrist 17.7 cm 5 cm From Distal Crease 23.4 cm 10 cm From Distal Crease 27.5 cm 15 cm From Distal Crease 31.2 cm 20 cm From Distal Crease 33 cm 25 cm From Distal Crease 37.4 cm 30 cm From Distal Crease 45 cm 35 cm From Distal Crease 45.6 cm 40 cm From Distal Crease 43.3 cm Axilla 48.2 cm PT-OP-Q Treatments Start: 08/12/20 08:12 Freq: Status: Active Protocol: Document 08/13/20 13:00 [facility] (Rec: 08/14/20 12:14 [facility] [id number]) Lymphedema Treatment Manual Lymphatic Drainage Location for left UE and trunk lymphedema Duration 25 Lymphedema Wrapping Body Location left UE Materials Skin care with low pH lotion application, Tricofix, Artiflex, Comprilan. Other patient to wear overnight as possible. PT-OP-T Assessment and Plan Start: 08/12/20 08:12 Freq: Status: Active Protocol: Document 08/13/20 13:00 [facility] (Rec: 08/14/20 12:14 [facility] [id number]) Physical Therapy Assessment Goals Four Impairment limited ability to ambulate due to swelling bilateral LE's Intermediate Goal (LTG) Decrease swelling in LE's sufficient to allow patient to ambulate community distances without difficulty LTG Duration 11/11/20 Three Impairment patient unable to fit into many of her clothes due to lymphedema Gas Meter Installer Goal (LTG) reduce lymphedem sufficient to allow patient to return to wearing her previous clothes to improve her quality of life . LTG Duration 11/11/20 Two Impairment ROM Intermediate Goal (LTG) Decrease lymphedema sufficient to allow patient to reach overhead for all usual ADL activities LTG Duration 11/11/20 One Impairment lymphedema left UE, iram LE's Short Term Goal (STG) Patient to be instructed in pathology, prevention, and all aspects of self care for lymphedema. STG Duration 09/11/20 Gas Meter Installer Goal (LTG) Decrease lymphedema to a stable level (no increase or decrease greater than 1 cm over the course of 1 week) and patient to be fit with appropriate compression garments. She will demonstrate independence in self-care for lymphedema management. Assessment Summary Assessment Patient weight down 1# after MLD yesterday. Lymphedema wrapping down today, patient expressing concern over it being so uncomfortable but will try to do exercises as instructed and wear as long as possible. Physical Therapy Plan Frequency and Duration Frequency of Treatment 20 visits Duration of Treatment 12 weeks Plan of Care Start Date 08/12/20 Plan of Care End Date 11/11/20 Therapeutic Interventions Therapeutic Interventions Home Exercise Program, Lymphedema Management,Manual Therapy,Patient/Caregiver Education,Self-Care/Home Management,Therapeutic Exercises Next Visit Focus/Plan Next Note Type Treatment Note Next Visit Plan Assess response to lymphedema wrapping, continue MLD, wrapping as tolerated. Patient has appointment at [facility]fer PT tomorrow.
--- NOTE | 2020-08-14 14:45 | PT.OTN ---
Current Diagnoses Lymphedema, not elsewhere classified (08/14/20) Physical Therapy Treatment Note PT-OP-A Visit Information Start: 08/12/20 08:12 Freq: Status: Active Protocol: Document 08/14/20 10:30 [facility] (Rec: 08/14/20 14:45 [facility] [id number]) Out-Patient Physical Therapy Visit Information Visit Information Visit Type Treatment Note Visit Start Time 10:30 Visit Stop Time 11:49 Total Visit Minutes 79 Visit Number 3 Evaluation Information Evaluation Date 08/12/20 Precautions Precautions Abdominal surgeries: appendectomy, cholecystectomy Lumbar surgery PT-OP-B Current Condition Start: 08/12/20 08:12 Freq: Status: Active Protocol: Document 08/12/20 13:45 [facility] (Rec: 08/12/20 16:50 [facility] [id number]) Current Condition History of Current Condition Onset Date 3+ years Current Complaints left UE swelling, iram LE swelling, abdominal swelling History of Current Condition Patient reports noticing swelling start in her left UE for no known reason 3+ years ago; no trauma, surgery, injury except she reports with abdominal surgeries she had multiple needle sticks (50+) over the course of 1 week, mostly in left hand and that she has had some numbness in that hand ever since. The swelling makes it difficult for her to lift her left arm, and she has difficulty getting clothes to fit. Also reports iram LE swelling left greater than right noticed approx 1 year ago, no known cause except history of extensive abdominal surgeries. Patient also noting significant abdominal swelling over the past 1 month for no known reason. Having CT done. Patient does report that she has memories from when she was young of a couple aunts having their legs wrapped but she wasn't aware of the reason and has no family members who are able to tell her. Treatment Goals Patient/Caregiver Goals Decrease swelling, aching, be able to lift her arm overhead, fit arm into clothes. Decrease swelling bilateral LE 's to allow for improved mobility and decreased pain. Current Functional Impairments (Reported) Functional Limitations- ADL's difficulty lifting her left arm for all ADL's PT-OP-C Subjective Start: 08/12/20 08:12 Freq: Status: Active Protocol: Document 08/14/20 10:30 [facility] (Rec: 08/14/20 14:45 [facility] [id number]) OP-PT Subjective Patient Comments Patient Comments Found lymphedema wrapping too uncomfortable to wear all night; took off at 11:00 pm. Does report noticing no aching or tingling left UE last night. Weight 4# decreased this am. States she had a hard time removing the lymphedema wraps and doesn't feel she or her daughter or would be able to wrap her. PT-OP-F Manual Assessment Start: 08/12/20 08:12 Freq: Status: Active Protocol: Document 08/12/20 13:45 [facility] (Rec: 08/13/20 17:08 [facility] [id number]) Manual Assessments Soft Tissue Assessment Soft Tissue Mobility Assessment Palpable soft tissue fibrosis left proximal forearm, bilateral thighs. PT-OP-G Mobility & Gait Start: 08/12/20 08:12 Freq: Status: Active Protocol: Document 08/12/20 13:45 [facility] (Rec: 08/13/20 17:08 [facility] [id number]) OP Gait Assessment Assistive Devices Assistive Device None Gait Deviations General Gait Pattern Antalgic,Lateral Trunk Lean Factors Limiting Gait Function Factors Limiting Gait Function Pain Comments Gait Comments LE swelling also limiting factor Stair Climbing Evaluation Evaluation Level of Assist On Stairs Independent Technique/Endurance Stair Climbing Technique Step to Step PT-OP-K Range of Motion Start: 08/12/20 08:12 Freq: Status: Active Protocol: Document 08/12/20 13:45 [facility] (Rec: 08/13/20 17:08 [facility] [id number]) Shoulder Goniometric Range of Motion Shoulder Left Active Shoulder ROM WFL No Testing Position Sitting Flexion 115 Extension 15 Abduction 85 External Rotation at 90 degrees 60 Abduction Internal Rotation 55 right Shoulder ROM WFL Yes Shoulder ROM Limitations Shoulder ROM Limitations Swelling Hip Goniometric Range of Motion Hip iram Hip ROM WFL No Hip ROM Limitations Hip ROM Limitations Swelling Comments mod limitations at hips left greater than right due to back pain; patient scheduled to have back surgery next month. Knee Goniometric Range of Motion Knee iram Knee ROM WFL Yes PT-OP-N Lymphedema Start: 08/12/20 08:12 Freq: Status: Active Protocol: Document 08/12/20 13:45 [facility] (Rec: 08/14/20 12:02 [facility] [id number]) Lymphedema Measurements Upper Extremity Circumference Measurements Left Affected MCP 19 cm Wrist 19.5 cm 5 cm From Distal Crease 25.2 cm 10 cm From Distal Crease 30.6 cm 15 cm From Distal Crease 34.9 cm 20 cm From Distal Crease 37.3 cm 25 cm From Distal Crease 36.5 cm 30 cm From Distal Crease 46 cm 35 cm From Distal Crease 50 cm 40 cm From Distal Crease 45.1 cm Axilla 48.7 cm Right Unaffected MCP 18.7 cm Wrist 17.7 cm 5 cm From Distal Crease 23.4 cm 10 cm From Distal Crease 27.5 cm 15 cm From Distal Crease 31.2 cm 20 cm From Distal Crease 33 cm 25 cm From Distal Crease 37.4 cm 30 cm From Distal Crease 45 cm 35 cm From Distal Crease 45.6 cm 40 cm From Distal Crease 43.3 cm Axilla 48.2 cm PT-OP-Q Treatments Start: 08/12/20 08:12 Freq: Status: Active Protocol: Document 08/14/20 10:30 [facility] (Rec: 08/14/20 14:45 [facility] [id number]) Lymphedema Treatment Manual Lymphatic Drainage Location for left UE, trunk, and LE lymphedema Duration 55 Lymphedema Wrapping Body Location left UE Materials Applied Tubigrip size F from wrist to forearm and size G from wrist to axilla with good fit. Sequential Lymphedema Exercises Location UE's and LE's Duration 12 Comments instructed to do supine for better tolerance and ROM as she complained about soreness. Compression Garment Assessment Compression Garment Assessment Details Patient shown picture of UE compression alternative reduction garment with velcro wraps as option; she will discuss with [facility] Patient Education Compression Garments discussed Self Manual Lymphatic Drainage reviewed Sequential Lymphedema Exercises reviewed PT-OP-T Assessment and Plan Start: 08/12/20 08:12 Freq: Status: Active Protocol: Document 08/14/20 10:30 [facility] (Rec: 08/14/20 14:45 [facility] [id number]) Physical Therapy Assessment Goals Four Impairment limited ability to ambulate due to swelling bilateral LE's Dental Service Chief Goal (LTG) Decrease swelling in LE's sufficient to allow patient to ambulate community distances without difficulty LTG Duration 11/11/20 Three Impairment patient unable to fit into many of her clothes due to lymphedema Dental Service Chief Goal (LTG) reduce lymphedem sufficient to allow patient to return to wearing her previous clothes to improve her quality of life . LTG Duration 11/11/20 Two Impairment ROM Mcc Goal (LTG) Decrease lymphedema sufficient to allow patient to reach overhead for all usual ADL activities LTG Duration 11/11/20 One Impairment lymphedema left UEiram's Short Term Goal (STG) Patient to be instructed in pathology, prevention, and all aspects of self care for lymphedema. STG Duration 09/11/20 Mcc Goal (LTG) Decrease lymphedema to a stable level (no increase or decrease greater than 1 cm over the course of 1 week) and patient to be fit with appropriate compression garments. She will demonstrate independence in self-care for lymphedema management. Physical Therapy Plan Frequency and Duration Frequency of Treatment 20 visits Duration of Treatment 12 weeks Plan of Care Start Date 08/12/20 Plan of Care End Date 11/11/20 Therapeutic Interventions Therapeutic Interventions Home Exercise Program, Lymphedema Management,Manual Therapy,Patient/Caregiver Education,Self-Care/Home Management,Therapeutic Exercises Next Visit Focus/Plan Next Note Type Treatment Note Next Visit Plan Assess response to use of Tubigrip, discuss appointment at [facility]. Continue lymphedema management with MLD , Tubigrip with trial to LE's as well, ther ex.
--- NOTE | 2020-08-21 15:01 | PT.OTN ---
Current Diagnoses Lymphedema, not elsewhere classified (08/21/20) Physical Therapy Treatment Note PT-OP-A Visit Information Start: 08/12/20 08:12 Freq: Status: Active Protocol: Document 08/21/20 13:52 [facility] (Rec: 08/21/20 15:01 [facility] [id number]) Out-Patient Physical Therapy Visit Information Visit Information Visit Type Treatment Note Visit Start Time 13:48 Visit Stop Time 14:58 Total Visit Minutes 70 Visit Number 4 Evaluation Information Evaluation Date 08/12/20 Precautions Precautions Abdominal surgeries: appendectomy, cholecystectomy Lumbar surgery PT-OP-B Current Condition Start: 08/12/20 08:12 Freq: Status: Active Protocol: Document 08/21/20 13:52 [facility] (Rec: 08/21/20 15:01 [facility] [id number]) Current Condition History of Current Condition Onset Date 3+ years Current Complaints left UE swelling, iram LE swelling, abdominal swelling History of Current Condition Patient reports noticing swelling start in her left UE for no known reason 3+ years ago; no trauma, surgery, injury except she reports with abdominal surgeries she had multiple needle sticks (50+) over the course of 1 week, mostly in left hand and that she has had some numbness in that hand ever since. The swelling makes it difficult for her to lift her left arm, and she has difficulty getting clothes to fit. Also reports iram LE swelling left greater than right noticed approx 1 year ago, no known cause except history of extensive abdominal surgeries. Patient also noting significant abdominal swelling over the past 1 month for no known reason. Having CT done. Patient does report that she has memories from when she was young of a couple aunts having their legs wrapped but she wasn't aware of the reason and has no family members who are able to tell her. Treatment Goals Patient/Caregiver Goals Decrease swelling, aching, be able to lift her arm overhead, fit arm into clothes. Decrease swelling bilateral LE 's to allow for improved mobility and decreased pain. PT-OP-C Subjective Start: 08/12/20 08:12 Freq: Status: Active Protocol: Document 08/21/20 13:52 [facility] (Rec: 08/21/20 14:01 [facility] [id number]) OP-PT Subjective Patient Comments Patient Comments Got sleeve ordered, and compression alternative, and glove. will go to get next week 08/28/20. Not feeling good today, uncomfortable left side of chest and upper back, maybe due to increase in UE ex since last week. May be ordering bike shorts, will discuss further when she picks up her sleeves. PT-OP-F Manual Assessment Start: 08/12/20 08:12 Freq: Status: Active Protocol: Document 08/12/20 13:45 [facility] (Rec: 08/13/20 17:08 [facility] [id number]) Manual Assessments Soft Tissue Assessment Soft Tissue Mobility Assessment Palpable soft tissue fibrosis left proximal forearm, bilateral thighs. PT-OP-G Mobility & Gait Start: 08/12/20 08:12 Freq: Status: Active Protocol: Document 08/12/20 13:45 [facility] (Rec: 08/13/20 17:08 [facility] [id number]) OP Gait Assessment Assistive Devices Assistive Device None Gait Deviations General Gait Pattern Antalgic,Lateral Trunk Lean Factors Limiting Gait Function Factors Limiting Gait Function Pain Comments Gait Comments LE swelling also limiting factor Stair Climbing Evaluation Evaluation Level of Assist On Stairs Independent Technique/Endurance Stair Climbing Technique Step to Step PT-OP-K Range of Motion Start: 08/12/20 08:12 Freq: Status: Active Protocol: Document 08/12/20 13:45 [facility] (Rec: 08/13/20 17:08 [facility] [id number]) Shoulder Goniometric Range of Motion Shoulder Left Active Shoulder ROM WFL No Testing Position Sitting Flexion 115 Extension 15 Abduction 85 External Rotation at 90 degrees 60 Abduction Internal Rotation 55 right Shoulder ROM WFL Yes Shoulder ROM Limitations Shoulder ROM Limitations Swelling Hip Goniometric Range of Motion Hip iram Hip ROM WFL No Hip ROM Limitations Hip ROM Limitations Swelling Comments mod limitations at hips left greater than right due to back pain; patient scheduled to have back surgery next month. Knee Goniometric Range of Motion Knee iram Knee ROM WFL Yes PT-OP-N Lymphedema Start: 08/12/20 08:12 Freq: Status: Active Protocol: Document 08/12/20 13:45 [facility] (Rec: 08/14/20 12:02 [facility] [id number]) Lymphedema Measurements Upper Extremity Circumference Measurements Left Affected MCP 19 cm Wrist 19.5 cm 5 cm From Distal Crease 25.2 cm 10 cm From Distal Crease 30.6 cm 15 cm From Distal Crease 34.9 cm 20 cm From Distal Crease 37.3 cm 25 cm From Distal Crease 36.5 cm 30 cm From Distal Crease 46 cm 35 cm From Distal Crease 50 cm 40 cm From Distal Crease 45.1 cm Axilla 48.7 cm Right Unaffected MCP 18.7 cm Wrist 17.7 cm 5 cm From Distal Crease 23.4 cm 10 cm From Distal Crease 27.5 cm 15 cm From Distal Crease 31.2 cm 20 cm From Distal Crease 33 cm 25 cm From Distal Crease 37.4 cm 30 cm From Distal Crease 45 cm 35 cm From Distal Crease 45.6 cm 40 cm From Distal Crease 43.3 cm Axilla 48.2 cm PT-OP-Q Treatments Start: 08/12/20 08:12 Freq: Status: Active Protocol: Document 08/21/20 13:52 [facility] (Rec: 08/21/20 14:01 [facility] [id number]) Lymphedema Treatment Manual Lymphatic Drainage Location for left UE, trunk, and LE lymphedema Duration 55 Lymphedema Wrapping Body Location left UE Materials Applied Tubigrip size F from wrist to forearm and size G from wrist to axilla with good fit. Sequential Lymphedema Exercises Comments Held today due to soreness Patient Education Compression Garments discussed Self Manual Lymphatic Drainage reviewed Sequential Lymphedema Exercises reviewed PT-OP-T Assessment and Plan Start: 08/12/20 08:12 Freq: Status: Active Protocol: Document 08/21/20 13:52 [facility] (Rec: 08/21/20 14:01 [facility] [id number]) Physical Therapy Assessment Goals Four Impairment limited ability to ambulate due to swelling bilateral LE's Electric Meter Inspector Goal (LTG) Decrease swelling in LE's sufficient to allow patient to ambulate community distances without difficulty LTG Duration 11/11/20 Three Impairment patient unable to fit into many of her clothes due to lymphedema Electric Meter Inspector Goal (LTG) reduce lymphedem sufficient to allow patient to return to wearing her previous clothes to improve her quality of life . LTG Duration 11/11/20 Two Impairment ROM Alf Goal (LTG) Decrease lymphedema sufficient to allow patient to reach overhead for all usual ADL activities LTG Duration 11/11/20 One Impairment lymphedema left UE, iram LE's Short Term Goal (STG) Patient to be instructed in pathology, prevention, and all aspects of self care for lymphedema. STG Duration 09/11/20 Alf Goal (LTG) Decrease lymphedema to a stable level (no increase or decrease greater than 1 cm over the course of 1 week) and patient to be fit with appropriate compression garments. She will demonstrate independence in self-care for lymphedema management. Assessment Summary Assessment Patient measurements left UE variable but mostly increased. Hasn't worn Tubigrip since last week and hasn't obtained compression sleeve yet. States she is working hard on her diet, trying to lose weight. Back surgery 10/14/20 . Physical Therapy Plan Frequency and Duration Frequency of Treatment 20 visits Duration of Treatment 12 weeks Plan of Care Start Date 08/12/20 Plan of Care End Date 11/11/20 Therapeutic Interventions Therapeutic Interventions Home Exercise Program, Lymphedema Management,Manual Therapy,Patient/Caregiver Education,Self-Care/Home Management,Therapeutic Exercises Next Visit Focus/Plan Next Note Type Treatment Note Next Visit Plan Assess response to use of Tubigrip, discuss appointment at [facility]. Continue lymphedema management with MLD , Tubigrip with trial to LE's as well, ther ex.
--- NOTE | 2020-08-27 16:13 | PT.OTN ---
Current Diagnoses Lymphedema, not elsewhere classified (08/27/20) Physical Therapy Treatment Note PT-OP-A Visit Information Start: 08/12/20 08:12 Freq: Status: Active Protocol: Document 08/27/20 13:49 [facility] (Rec: 08/27/20 14:[address] [facility] [id number]) Out-Patient Physical Therapy Visit Information Visit Information Visit Type Treatment Note Visit Start Time 13:46 Visit Stop Time 14:31 Total Visit Minutes 45 Visit Number 5 Evaluation Information Evaluation Date 08/12/20 Precautions Precautions Abdominal surgeries: appendectomy, cholecystectomy Lumbar surgery PT-OP-B Current Condition Start: 08/12/20 08:12 Freq: Status: Active Protocol: Document 08/21/20 13:52 [facility] (Rec: 08/21/20 15:[address] [facility] [id number]) Current Condition History of Current Condition Onset Date 3+ years Current Complaints left UE swelling, iram LE swelling, abdominal swelling History of Current Condition Patient reports noticing swelling start in her left UE for no known reason 3+ years ago; no trauma, surgery, injury except she reports with abdominal surgeries she had multiple needle sticks (50+) over the course of 1 week, mostly in left hand and that she has had some numbness in that hand ever since. The swelling makes it difficult for her to lift her left arm, and she has difficulty getting clothes to fit. Also reports iram LE swelling left greater than right noticed approx 1 year ago, no known cause except history of extensive abdominal surgeries. Patient also noting significant abdominal swelling over the past 1 month for no known reason. Having CT done. Patient does report that she has memories from when she was young of a couple aunts having their legs wrapped but she wasn't aware of the reason and has no family members who are able to tell her. Treatment Goals Patient/Caregiver Goals Decrease swelling, aching, be able to lift her arm overhead, fit arm into clothes. Decrease swelling bilateral LE 's to allow for improved mobility and decreased pain. PT-OP-C Subjective Start: 08/12/20 08:12 Freq: Status: Active Protocol: Document 08/27/20 13:49 [facility] (Rec: 08/27/20 14:40 [facility] [id number]) OP-PT Subjective Patient Comments Patient Comments Gets sleeve tomorrow, has been wearing Tubigrip daily, not sure if helping. PT-OP-F Manual Assessment Start: 08/12/20 08:12 Freq: Status: Active Protocol: Document 08/12/20 13:45 [facility] (Rec: 08/13/20 17:[address] [facility] [id number]) Manual Assessments Soft Tissue Assessment Soft Tissue Mobility Assessment Palpable soft tissue fibrosis left proximal forearm, bilateral thighs. PT-OP-G Mobility & Gait Start: 08/12/20 08:12 Freq: Status: Active Protocol: Document 08/12/20 13:[address] [facility] (Rec: 08/13/20 17:[address] [facility] [id number]) OP Gait Assessment Assistive Devices Assistive Device None Gait Deviations General Gait Pattern Antalgic,Lateral Trunk Lean Factors Limiting Gait Function Factors Limiting Gait Function Pain Comments Gait Comments LE swelling also limiting factor Stair Climbing Evaluation Evaluation Level of Assist On Stairs Independent Technique/Endurance Stair Climbing Technique Step to Step PT-OP-K Range of Motion Start: 08/12/20 08:12 Freq: Status: Active Protocol: Document 08/12/20 13:[address] [facility] (Rec: 08/13/20 17:[address] [facility] [id number]) Shoulder Goniometric Range of Motion Shoulder Left Active Shoulder ROM WFL No Testing Position Sitting Flexion 115 Extension 15 Abduction 85 External Rotation at 90 degrees 60 Abduction Internal Rotation 55 right Shoulder ROM WFL Yes Shoulder ROM Limitations Shoulder ROM Limitations Swelling Hip Goniometric Range of Motion Hip iram Hip ROM WFL No Hip ROM Limitations Hip ROM Limitations Swelling Comments mod limitations at hips left greater than right due to back pain; patient scheduled to have back surgery next month. Knee Goniometric Range of Motion Knee iram Knee ROM WFL Yes PT-OP-N Lymphedema Start: 08/12/20 08:12 Freq: Status: Active Protocol: Document 08/27/20 13:49 [facility] (Rec: 08/27/20 16:[address] [facility] [id number]) Lymphedema Measurements Upper Extremity Circumference Measurements Left Affected MCP 19.1 cm Wrist 19.1 cm 5 cm From Distal Crease 25.8 cm 10 cm From Distal Crease 30.4 cm 15 cm From Distal Crease 34.7 cm 20 cm From Distal Crease 36.2 cm 25 cm From Distal Crease 40.5 cm 30 cm From Distal Crease 48.6 cm 35 cm From Distal Crease 47.8 cm 40 cm From Distal Crease 43.2 cm Axilla 46 cm PT-OP-Q Treatments Start: 08/12/20 08:12 Freq: Status: Active Protocol: Document 08/27/20 13:[address] [facility] (Rec: 08/27/20 14:[address] [facility] [id number]) Lymphedema Treatment Manual Lymphatic Drainage Location for left UE, trunk, and LE lymphedema Duration 35 Lymphedema Wrapping Body Location left UE Other kinesiotape (2 fan strips) to posterior left upper arm for edema reduction. Patient advised to re-apply Tubigrip after 1 hr to let kinesiotape adhesive better activate Sequential Lymphedema Exercises Comments HEP Compression Garment Assessment Compression Garment Assessment Details Patient to obtain compression sleeve and compression alternative. Also will discuss compression stockings and alternatives such as bike shorts or other shapewear at [facility] tomorrow after our discussion today. Patient Education Compression Garments discussed Self Manual Lymphatic Drainage reviewed Sequential Lymphedema Exercises reviewed PT-OP-T Assessment and Plan Start: 08/12/20 08:12 Freq: Status: Active Protocol: Document 08/27/20 13:[address] [facility] (Rec: 08/27/20 14:[address] [facility] [id number]) Physical Therapy Assessment Goals Four Impairment limited ability to ambulate due to swelling bilateral LE's Splicing Supervisor Goal (LTG) Decrease swelling in LE's sufficient to allow patient to ambulate community distances without difficulty LTG Duration 11/11/20 Three Impairment patient unable to fit into many of her clothes due to lymphedema Retirement Goal (LTG) reduce lymphedem sufficient to allow patient to return to wearing her previous clothes to improve her quality of life . LTG Duration 11/11/20 Two Impairment ROM Retirement Goal (LTG) Decrease lymphedema sufficient to allow patient to reach overhead for all usual ADL activities LTG Duration 11/11/20 One Impairment lymphedema left UE, iram LE's Short Term Goal (STG) Patient to be instructed in pathology, prevention, and all aspects of self care for lymphedema. STG Duration 09/11/20 Splicing Supervisor Goal (LTG) Decrease lymphedema to a stable level (no increase or decrease greater than 1 cm over the course of 1 week) and patient to be fit with appropriate compression garments. She will demonstrate independence in self-care for lymphedema management. Assessment Summary Assessment cirfumferential measurements decreased in forearm and proximal upper arm, increased distal upper arm so kinesiotape trial today. Patient to get sleeve and compression alternative tomorrow. Physical Therapy Plan Frequency and Duration Frequency of Treatment 20 visits Duration of Treatment 12 weeks Plan of Care Start Date 08/12/20 Plan of Care End Date 11/11/20 Therapeutic Interventions Therapeutic Interventions Home Exercise Program, Lymphedema Management,Manual Therapy,Patient/Caregiver Education,Self-Care/Home Management,Therapeutic Exercises Next Visit Focus/Plan Next Note Type Treatment Note Next Visit Plan Assess fit and effectiveness of compression sleeve and alternative wrap. Continue lymphedema management. Continue to problem solve compression for LE's as needed .
--- NOTE | 2020-10-21 14:39 | PT-OP ANOTE ---
Patient cancelled due to admission to shelter.
--- NOTE | 2021-01-15 09:36 | PT.OPDS ---
Current Diagnoses Lymphedema, not elsewhere classified (08/27/20) Visit Care Team Role Provider Type Faustino Montesinos MD Primary Care Provider Physician Specialty: Internal Medicine Address: [address] [place] [address], [address] Email: [email or web address]) Avelino Montesinos MD Attending Provider Non-Staff Referring Provider Specialty: Internal Medicine Address: [facility] [address], [place], [address] Email: Visit Number Visit Number 5 Discharge Summary PT-OP-B Current Condition Start: 08/12/20 08:12 Freq: Status: Active Protocol: Document 08/21/20 13:52 SAK (Rec: 08/21/20 15:01 [facility] [id number]) Current Condition History of Current Condition Onset Date 3+ years Current Complaints left UE swelling, iram LE swelling, abdominal swelling History of Current Condition Patient reports noticing swelling start in her left UE for no known reason 3+ years ago; no trauma, surgery, injury except she reports with abdominal surgeries she had multiple needle sticks (50+) over the course of 1 week, mostly in left hand and that she has had some numbness in that hand ever since. The swelling makes it difficult for her to lift her left arm, and she has difficulty getting clothes to fit. Also reports iram LE swelling left greater than right noticed approx 1 year ago, no known cause except history of extensive abdominal surgeries. Patient also noting significant abdominal swelling over the past 1 month for no known reason. Having CT done. Patient does report that she has memories from when she was young of a couple aunts having their legs wrapped but she wasn't aware of the reason and has no family members who are able to tell her. Treatment Goals Patient/Caregiver Goals Decrease swelling, aching, be able to lift her arm overhead, fit arm into clothes. Decrease swelling bilateral LE 's to allow for improved mobility and decreased pain. PT-OP-C Subjective Start: 08/12/20 08:12 Freq: Status: Active Protocol: Document 08/27/20 13:49 SAK (Rec: 08/27/20 14:40 SAK [id number]) OP-PT Subjective Patient Comments Patient Comments Gets sleeve tomorrow, has been wearing Tubigrip daily, not sure if helping. PT-OP-F Manual Assessment Start: 08/12/20 08:12 Freq: Status: Active Protocol: Document 08/12/20 13:45 SAK (Rec: 08/13/20 17:08 [facility] [id number]) Manual Assessments Soft Tissue Assessment Soft Tissue Mobility Assessment Palpable soft tissue fibrosis left proximal forearm, bilateral thighs. PT-OP-G Mobility & Gait Start: 08/12/20 08:12 Freq: Status: Active Protocol: Document 08/12/20 13:45 SAK (Rec: 08/13/20 17:08 [facility] [id number]) OP Gait Assessment Assistive Devices Assistive Device None Gait Deviations General Gait Pattern Antalgic,Lateral Trunk Lean Factors Limiting Gait Function Factors Limiting Gait Function Pain Comments Gait Comments LE swelling also limiting factor Stair Climbing Evaluation Evaluation Level of Assist On Stairs Independent Technique/Endurance Stair Climbing Technique Step to Step PT-OP-K Range of Motion Start: 08/12/20 08:12 Freq: Status: Active Protocol: Document 08/12/20 13:45 SAK (Rec: 08/13/20 17:08 [facility] [id number]) Shoulder Goniometric Range of Motion Shoulder Left Active Shoulder ROM WFL No Testing Position Sitting Flexion 115 Extension 15 Abduction 85 External Rotation at 90 degrees 60 Abduction Internal Rotation 55 right Shoulder ROM WFL Yes Shoulder ROM Limitations Shoulder ROM Limitations Swelling Hip Goniometric Range of Motion Hip iram Hip ROM WFL No Hip ROM Limitations Hip ROM Limitations Swelling Comments mod limitations at hips left greater than right due to back pain; patient scheduled to have back surgery next month. Knee Goniometric Range of Motion Knee iram Knee ROM WFL Yes PT-OP-N Lymphedema Start: 08/12/20 08:12 Freq: Status: Active Protocol: Document 08/27/20 13:49 SAK (Rec: 08/27/20 16:13 [facility] [id number]) Lymphedema Measurements Upper Extremity Circumference Measurements Left Affected MCP 19.1 cm Wrist 19.1 cm 5 cm From Distal Crease 25.8 cm 10 cm From Distal Crease 30.4 cm 15 cm From Distal Crease 34.7 cm 20 cm From Distal Crease 36.2 cm 25 cm From Distal Crease 40.5 cm 30 cm From Distal Crease 48.6 cm 35 cm From Distal Crease 47.8 cm 40 cm From Distal Crease 43.2 cm Axilla 46 cm PT-OP-T Assessment and Plan Start: 08/12/20 08:12 Freq: Status: Active Protocol: Document 01/15/21 09:35 TOAN (Rec: 01/15/21 09:36 [facility] [id number]) Physical Therapy Plan Discharge Physical Therapy Discharge Reasons Change in Medical Status Discharge Comments Patient was admitted to shelter back in September 2020. We have heard nothing further from her so she will be discharged from PT.
== END 2021-01-16 08:57 ==
LOC: PHYS 13:45
PROVIDERS: PCP Internal Medicine; Referring Provider Internal Medicine Endocrinology, Diabetes & Metabolism; Visit Provider Internal Medicine Endocrinology, Diabetes & Metabolism
DX: I89.0 Lymphedema, not elsewhere classified (principal)
CPT/HCPCS: 97110; 97140; 97162; 97535

== ENCOUNTER → 2020-10-03 15:42 | Outpatient (CLI) | payer MEDICARE, OTHER, SELFPAY ==
[2020-10-03 16:08] LABS: Bacteria Urine None Seen; RBC Urine None Seen (0-5/HPF); WBC Urine None Seen (0-5/HPF)
[2020-10-03 16:38] LABS: Appearance Urine UA CLEAR; Bilirubin Urine UA NEGATIVE (NEGATIVE); Color Urine UA YELLOW; Glucose Urine UA NEGATIVE (Negative); Ketones Urine UA NEGATIVE (NEGATIVE); Leukocyte Esterase Urine UA NEGATIVE (NEGATIVE); Nitrite Urine UA NEGATIVE (Negative); Occult Blood Urine UA TRACE-LYSED (Negative); Protein Urine UA NEGATIVE (Negative); Urobilinogen Urine UA 0.2 E.U./dL (0.2)
[2020-10-03 16:55] LABS: Amorphous Sediment Urine 1+
[2020-10-03 16:56] LABS: Culture Indicated Urine Cult Not Indicated; Squamous Epithelial Cell Urine 5-10 /HPF (0-5/HPF)
[2020-10-03 16:57] LABS: Add Manual Diff / Slide Review NO; Basophils Absolute Auto 0 /uL (0-100); Basophils Percent Auto 0.6 % (0-2); Eosinophils Absolute Auto 200 /uL (0-450); Eosinophils Percent Auto 3.1 % (2-4); Hematocrit 41.6 % (36-46); Hemoglobin 13.9 g/dL (12.0-16.0); Lymphocytes Absolute Auto 1000 /uL (1100-4500); Lymphocytes Percent Auto 17.9 % (25-40); Mean Corpuscular HGB Conc 33.4 % (30-36); Mean Corpuscular Hemoglobin 29.8 PG (26-34); Mean Corpuscular Volume 89.1 fL (80-100); Monocytes Absolute Auto 300 /uL (0-900); Monocytes Percent Auto 5.1 % (3-14); Neutrophils Absolute Auto 4100 /uL (1500-7000); Neutrophils Percent Auto 73.3 % (50-75); Platelet Count 146 X10^3/uL (150-400); Red Blood Cell Count 4.67 X10^6/uL (4.0-5.2); Red Cell Distribution Width 14.8 % (11.6-14.8); White Blood Cell Count 5.6 X10^3/uL (4.5-11.0)
[2020-10-03 17:02] LABS: Prothrombin Time 11.7 SECONDS (10.1-12.7)
[2020-10-03 17:05] LABS: PTT Partial Thromboplastin Tim 31 SECONDS (26.4-36.2)
[2020-10-03 17:33] LABS: Alanine Aminotransferase 21 IU/L (<35); Albumin Globulin Ratio 1.4 (1.0-2.8); Alkaline Phosphatase 85 U/L (38-126); Aspartate Aminotransferase 20 IU/L (14-36); BUN Creatinine Ratio 26.4 (6-22); Bilirubin Total 0.7 mg/dL (0.2-1.3); Blood Urea Nitrogen 23 mg/dL (7-17); Calcium 9.8 mg/dL (8.4-10.2); Carbon Dioxide 31 mmol/L (22-32); Chloride 98 mmol/L (98-107); Estimated Glomerular Filt Rate > 60.0 mL/min (>60); Globulin 2.8 g/dL (1.7-4.1); Glucose 184 mg/dL (80-110); HEMOLYSIS < 15 (0-50); Potassium 3.1 mmol/L (3.4-5.1); Sodium 136 mmol/L (137-145); Total Protein 6.8 g/dL (6.3-8.2)
== END ==
PROVIDERS: PCP Internal Medicine; Referring Provider Internal Medicine; Visit Provider Internal Medicine
DX: Z01.812 Encounter for preprocedural laboratory examination (principal); E11.9 Type 2 diabetes mellitus without complications; I10 Essential (primary) hypertension; E66.9 Obesity, unspecified; K76.0 Fatty (change of) liver, not elsewhere classified; R73.9 Hyperglycemia, unspecified; N39.0 Urinary tract infection, site not specified; Z51.81 Encounter for therapeutic drug level monitoring
CPT/HCPCS: 36415; 80053; 81001; 83036; 85025; 85610; 85730

== ENCOUNTER → 2020-10-04 09:21 | Outpatient (CLI) | payer MEDICARE, OTHER, SELFPAY ==
[2020-10-07 07:18] LABS: COVID19 Sendout Not Detected (Not Detect)
== END ==
PROVIDERS: PCP Internal Medicine; Visit Provider Physician Assistant
DX: Z11.59 Encounter for screening for other viral diseases (principal)
CPT/HCPCS: 87635

== ENCOUNTER 2020-10-07 06:17 | Inpatient (IN) | payer MEDICARE, OTHER, SELFPAY ==
[2020-09-25 08:26] VITALS: BMI 44.0
[2020-10-07] VITALS (24 sets, daily range): BP systolic 103–180; BP diastolic 41–78; PULSE 70–97; RESP 4–24; TEMP 35.9–37.2; O2SAT 12–100; BMI 44.7
--- NOTE | 2020-10-07 | DI.RAD.S_ITS ---
PROCEDURE: XR LUMBAR SPINE 2-3V INDICATIONS: L3-4 TLIF TECHNIQUE: 2 fluoroscopic views of the lumbar spine were acquired. COMPARISON: [facility], MR, MR LUMBAR SPINE WO CON, 11/28/2019, 12:48. [facility], CR, L-SPINE 2-3 VIEWS, 11/23/2016, 15:27. FINDINGS: Pedicle screw fixation at L3-L4 with intervertebral body spacer. IMPRESSION: Satisfactory position of the L3-L4 pedicle screws. Dictated by: Jovanny Scott M.D. on 10/07/2020 at 11:14 Approved by: Jovanny Scott M.D. on 10/07/2020 at 11:17
[2020-10-07] MEDS: LACTATED RINGERS 1,000 ML 42 ML IV (07:28)
--- NOTE | 2020-10-07 07:47 | PM.PREOP ---
Pre-operative Note COVID-19 COVID-19 status: Negative Result date/Date tested (Pos, Neg/Pending): 10/05/20 Interval Note History & Physical reviewed/Exam performed by Physician: Yes Changes to H&P: No
[2020-10-07] MEDS: CEFAZOLIN 2 GM/100 ML FROZ.PIGGY IV ×3 (08:03→23:53)
--- NOTE | 2020-10-07 08:47 | SUR.OPER ---
Prone on spine table, head in foam head support, padded chest and pelvic supports, gel pad at knees, lower legs supported by pillows; nipples, genitalia and toes free of pressure, arms secured on foam padded arm boards at <90 degrees abduction. Tape over blanket at thigh secured to table.
[2020-10-07] MEDS: BUPIVACAINE LIPOSOME 266 MG/20 ML VIAL INJ (08:54)
[2020-10-07] MEDS: BUPIVACAINE 0.25% W/ EPI 30 ML VIAL INJ (08:55)
[2020-10-07] MEDS: ACETAMINOPHEN IV 1,000 MG/100 ML VIAL 400 MG IV (09:55)
--- NOTE | 2020-10-07 11:02 | PM.OP.1 ---
Operative Date/Time/Diagnoses Date of procedure: 10/07/20 Time of procedure: 08:02 Pre-op diagnosis: 1. L3-4 spondylolisthesis 2. L3-4 spinal stenosis with neurogenic claudication Post-op diagnosis: same Procedure & Clinicians Procedure: 1. L3-4 Postero-lateral and posterior interbody fusion 2. L3-4 interbody cage placement. 3. L3-4 decompressive laminectomy with bilateral facetecomies 4. L3-4 Posterior non-segmental instrumentation 5. [place] of bone marrow from iliac crest 6. Utilization of microsurgical technique and operating microscope Same procedure as scheduled: Yes Indications: Patient has been having chronic back pain and worsening lumbar radiculopathy. Patient failed multiple conservative management with worsening pain weakness and numbness in her lower extremity. Patient has been having difficulty performing activity of daily living. After discussing risks benefits of treatment options, patient elected proceed with surgery. Surgeon: Shlomo Longoria Tank Pumper Panelboard: Judith Cameron Click Yes if Unassisted: No Anesthesia Type: General Operative Notes Closure Type: primary Specimen(s): none sent Prosthetic devices, grafts, tissues, transplants, or devices: Globus revolve screws, Rise cage Estimated Blood Loss (mL): 50 Blood products transfused: none Procedure in detail: Patient was seen in the preoperative area. Risks and benefits of the surgery was discussed with the patient. Informed consent was obtained from the patient and placed in the chart. Surgical site was marked. Patient was taken to the operative room. General anesthesia was administered. Prophylactic antibiotic was given to the patient less than 30 min before the incision was made. Patient was placed into a prone position on the Joo table. Patient's back was then prepped and draped in the sterile fashion. Time-out was performed at this time. Using AP and lateral C-arm imaging the interval between L3-4 was identified and marked on patient's back. A 2 inch incision 2 in from midline was made on the right side first. The fascia was incised in line with skin incision. Globus MARS retractors was placed inside the incision and docked onto the L3 lamina. Using microsurgical technique and operating microscope, a L3 laminectomy and L3-4 facetectomy was performed using a Kerrison rongeur. Patient was found have a large right-sided facet cyst during the process of the laminectomy and facetectomy, which was resected in its entirety during the process of decompression. The disc space at L3-4 was identified. And a total diskectomy was performed at L3-4 level. The endplates were decorticated using a rasp and shaver. Patient was found have severe central neural foramen stenosis which was fully decompressed after the laminectomy and facetectomy was completed. The total diskectomy and decortication was performed at L3-4 level in order to to accomplish a L3-4 fusion. The local bone from the laminectomy and facetectomy was saved for local bone grafting. After the total diskectomy and decortication was completed, Trifecta bone graft material was combined with local bone that was harvested earlier. At this time, a separate skin is incision was made over the iliac crest. A Jamshidi needle was inserted into the iliac crest through a separate skin incision. 5 cc of bone marrow aspiration was obtained through the separate skin incision using a Jamshidi needle from the iliac crest. The bone marrow aspiration was combined with local bone and the Trifecta bone grafting material. The bone grafting material was placed into the L3-4 interbody space along with a expandable cage. The cage was expanded to its maximum height using the torque limiting screwdriver. At this time a mirror image incision was made on the left side. The fascia was incised in line with the skin incision. Globus MARS retractor was inserted and docked onto the L3-4 posterolateral gutter. Using the power drill, posterior-lateral decortication was performed at L3-4 level until bleeding cortical bone was identified. The remaining bone grafting material was placed into the L3-4 posterior lateral gutter he order to accomplish posterolateral fusion at the L3-4 level. Using the double C-arm technique, pedicle screws were placed into the L3-4 pedicles bilaterally. This was done by placing the Jamshidi needle into the pedicles, then placing the guidewires over the Jamshidi needle, and finally placing the cannulated screws over the guidewires bilaterally. After the pedicle screws were placed, 2 titanium rods was locked into the heads of the pedicle screws using locking caps and torque limiting screwdriver. After all the hardware was placed, and confirmed with AP and lateral C-arm imaging, the wound was then irrigated with sterile normal saline and packed with Ray-Abhishek gauze for 3 min to accomplish hemostasis. After the gauze was removed the deep fascia was closed with #1 Vicryl suture. The subcutaneous layer was closed with 2-0 Vicryl. The skin was closed with skin johana. Patient tolerated the procedure well. There were no complications. Complications: none Post-operative Condition: stable Disposition: PACU Plan for aftercare: Admit to inpatient hospital
--- NOTE | 2020-10-07 11:40 | SUR.PHASEI ---
Report given to Mia Carpio RN .
[2020-10-07] MEDS: HYDROMORPHONE 2 MG INJ IV ×2 (11:45→11:57)
--- NOTE | 2020-10-07 11:54 | SUR.PHASEI ---
1144 assumed care, preparing medication for c/o back pain. Denies nausea.
[2020-10-07] MEDS: OXYCODONE IR 5 MG TABLET PO (12:06)
--- NOTE | 2020-10-07 12:45 | SUR.PHASEI ---
report called to Bello Robles RN. Pt dozing, arouses easily to voice. Stable. Transported on O2 at 2LNP
--- NOTE | 2020-10-07 12:49 | SUR.PHASEI ---
1245 Pt stable, ready for transfer, awaing transfer help
[2020-10-07] MEDS: SODIUM CHLORIDE 0.9% 1,000 ML 100 ML IV ×2 (13:38→21:34)
[2020-10-07] MEDS: ONDANSETRON 4 MG/2 ML INJ IV (13:38)
[2020-10-07] MEDS: INSULIN ASPART 100 UNIT/ML INSULN PEN SUBCUT ×3 (14:04→20:27)
--- NOTE | 2020-10-07 14:19 | PC.ADMIT ---
Addendum entered by Partha Duncan R.N. 10/07/20 14:48: Patient wears home CPAP. Original Note: Safe hand off from PACU, patient arrived via portable bed at 1255. Patient VSS, hypotensive. Patient LS clear, bowel tones hypoactive in all quadrants. Patient complains of pain 4/10. Patient BS check upon coming to the unit 224, 3 units Novalog given as per protocol. Patient started on NS@100ml/hr. Patient was nauseous, and given IV Zofran at 1400. Dressing has some shadow drainage and oozing. Patient has bilateral lower leg and foot edema 2+ along with bilateral lyphedema and wears arm sleeve on Left arm. SCD's were placed and patient was given IS. Bed is low and locked and bed alarm is active. Call light is within reach. [email or web address] Calin Lassiter Admission Note: The patient,Kim Diggs,70 y/o, was given written information regarding hospital policies, unit procedures and contact persons. Patient's smoking status: Never smoker. Vital Signs - 8 hr 10/07/20 06:56 10/07/20 11:17 10/07/20 11:21 Temperature 96.8 F L 99.0 F 99.0 F Pulse Rate 71 79 78 Respiratory Rate 16 16 20 Blood Pressure 148/78 H 155/57 H 153/57 H Pulse Oximetry 98 98 96 10/07/20 11:26 10/07/20 11:31 10/07/20 11:36 Temperature Pulse Rate 79 77 79 Respiratory Rate 14 24 20 Blood Pressure 149/58 H 156/58 H 151/54 H Pulse Oximetry 97 96 96 10/07/20 11:41 10/07/20 11:46 10/07/20 11:51 Temperature Pulse Rate 75 76 74 Respiratory Rate 10 L 13 11 L Blood Pressure 156/57 H 157/57 H 135/58 L Pulse Oximetry 95 96 95 10/07/20 12:01 10/07/20 12:16 10/07/20 12:31 Temperature Pulse Rate 77 71 75 Respiratory Rate 12 4 L 14 Blood Pressure 140/56 L 141/54 H 146/58 H Pulse Oximetry 93 12 L 95 10/07/20 12:36 10/07/20 12:55 Temperature 96.8 F L Pulse Rate 72 72 Respiratory Rate 13 14 Blood Pressure 154/56 H 129/57 L Pulse Oximetry 93 97
--- NOTE | 2020-10-07 17:09 | PT.IIE ---
Current Diagnoses Spondylolisthesis, lumbar region (10/07/20) Other spondylosis with radiculopathy, lumbar region (10/07/20) Spinal stenosis, lumbar region without neurogenic claudication (10/07/20) Surgery Performed Operation Date: 10/07/20 07:45 Actual Procedures p L3-4 TLIF(Not Applicable) - Shlomo Longoria MD Surgical History (Last Updated 09/25/20 @ 09:06 by Heide Umanzor, RN) History of 2 sections (Acute) History of bilateral cataract extraction (Acute 2015) History of colonoscopy (Acute 08/16/17) Hx of appendectomy (Acute) Hx of cholecystectomy (Acute) Hx of heart artery stent (Acute 02/24/19) Hx of laminectomy (Acute 11/23/16) Medical History (Last Updated 09/25/20 @ 12:26 by Heied Umanzor RN) Anasarca (Acute) Arthritis (Acute) Asthma (Acute) Chest pain (Acute) Chronic back pain (Acute) Chronic renal insufficiency (Acute) Corneal abrasion of both eyes (Acute) Coronary artery disease (Acute) Depression (Acute) Diabetes (Acute) Dry eye syndrome (Acute) Hyperlipidemia (Acute) Hypertension (Acute) Hypokalemia (Acute) Migraine (Acute) GARCIA (nonalcoholic steatohepatitis) (Acute) Osteoarthritis (Acute) Reactive airway disease (Acute) Sarcoidosis (Acute ~1996) Sciatica of right side (Acute) Seasonal allergies (Acute) Sleep apnea (Acute) Spinal stenosis of lumbar region with radiculopathy (Acute) Spondylolisthesis (Acute) Vitamin B12 deficiency (Acute) Physical Therapy Inpatient Evaluation/Re-Eval M1 PT/OT-IP Prior Functional Status Start: 10/07/20 14:49 Freq: NEEDED Status: Active Protocol: Document 10/07/20 16:28 DE (Rec: 10/07/20 17:03 DE [id number]) Medical Review Prior Functional Status Medical History Reviewed Yes Diet/Fluid Consistency Regular Communication WNL. No deficits noted. Able to make needs known. Mobility and Gait IND for all mobility and amb without any AD at baseline. Activities of Daily Living and IADL's IND for all ADLs and IADLs at baseline. Social History Household Members spouse,children Living Arrangements House Number of Floors (Floors) One Floor Number of Stairs To Enter/Railing? 5 REESE with R handrail ascending for a couple steps and L handrail ascending for a couple steps. Home Environment Standard Height Toilet,High Toilet,Walk in Shower Home Equipment Front Wheel Walker,Straight Cane,Shower Seat without Backrest,Hand Held Shower,Long Handled Shoe Horn,Leather Crafter, Grab Bars Near Toilet Employment Status Retired Additional Social History Comment Pt lives with spouse and daughter who will be available to help if needed. M2 PT-IP Current Condition Start: 10/07/20 14:49 Freq: NEEDED Status: Active Protocol: Document 10/07/20 16:28 DE (Rec: 10/07/20 17:03 [place] [id number]) Physical Therapy Current Condition Current Condition Evaluation Date 10/07/20 Treatment Diagnosis L3-4 TLIF; Difficulty with walking Onset Date 10/07/20 Precautions Lumbar Precautions Log Roll,No Twisting,Limit Bending,Lifting Restriction of 10 lbs,Gait Belt above Incisional Area M3 PT-IP Subjective Start: 10/07/20 14:49 Freq: NEEDED Status: Active Protocol: Document 10/07/20 16:28 DE (Rec: 10/07/20 17:03 [place] [id number]) Subjective Physical Therapy Visit Type Type Initial Evaluation Visit Start Time 15:53 Visit Stop Time 16:20 Total Visit Minutes 27 Notes DARRYN Steiner led the session under direct supervision of PT Mayte throughout the entire session. Pt's was present. Number of SAFETY MANAGER Visits 0 Physical Therapy Visit Comments Patient Comments Pt is agreeable to do PT. Patient Goals To return home. Therapy Pain Assessment Pain When Pain Assessed During Mobility Pain Present Pain Present Pain Reported Location Lower Back Intensity 9 Scale Used Numeric (0 - 10) Description Aching,Acute Pain Behaviors Calling Out,Facial Grimacing, Moaning,Wincing M4 PT-IP Mobility and Gait Start: 10/07/20 14:49 Freq: NEEDED Status: Active Protocol: Document 10/07/20 16:28 DE (Rec: 10/07/20 17:03 DE [id number]) PT-Bed Mobility Assessment Rolling Type of Rolling Log Rolling Level of Assist Minimal Assistance,1 Person Assistance Sit to Supine Sit to Supine Minimal Assistance,1 Person Assistance Scooting Scooting to Edge of Bed Contact Guard Assistance PT-Transfer Assessment Sit to and From Stand Sit to and from Stand Contact Guard Assistance,Use of Upper Extremities Equipment Transfer Assistive Device Gait Belt,Front Wheeled Walker Orthotic/Prosthetic Devices or Brace: No Transfers Transfer Destination Bed,Bedside Commode Transfer Technique Stand Step Pivot Transfer Ability Level of Assist Minimal Assistance,1 Person Assistance Comments Mobility Comments Pt was sitting on the R EOB to transfer to BSC with RN as PT and SPT arrived. Pt's was at the bedside. Pt performed scooting to EOB with CGA and use of BUE to push off the bed. Pt had some difficulty with scooting d/t pain but was able to complete without any assistance. Pt completed sit to stand with FWW and min 1PA for stabilizing the FWW. Pt then performed stand-step pivot transfer to BSC that was angled at 90 deg to the L side with FWW and min 1PA for stabilizing BSC. PT and SPT stepped outside for ~5 min to give her time and privacy. After voiding, pt completed sit to stand from BSC with FWW and mod 1PA. In standing, PT Mayte helped her with pericare. Pt then performed stand-step pivot transfer back to the bed with FWW and CGA. Pt performed logroll to lie supine in the bed with min 1PA for lifting the legs off the floor. HOB was elevated. Call light placed within reach. Gait Assessment Comments Gait Comments Not assessed. Stair Climbing Assessment Comments Stair Climbing Comments Not assessed. PT-Balance Assessment Sitting Balance and Reactions Static Sitting Balance Ability Normal Dynamic Sitting Balance Ability Good Standing Balance and Reactions Static Standing Balance Ability Good Dynamic Standing Balance Ability Fair M5 PT-IP Objective Assessments Start: 10/07/20 14:49 Freq: NEEDED Status: Active Protocol: Document 10/07/20 16:28 DE (Rec: 10/07/20 17:03 DE [id number]) Orientation Orientation/Cognition Level of Alertness Alert Orientation Name,Age,Birthday,Month,Date, Year,Day of Week,Place, Situation Language Function Ability No Deficits Noted Safety Awareness Understands Safety Issues Memory Description No Deficits Noted Gross Range of Motion Lower Extremity ROM Assessment Bilaterally Impaired Impairments Limited d/t back pain Strength Lower Extremity Strength Assessment Bilaterally Impaired Comments Strength Comments Limited d/t back pain. Coordination Assessment Gross Coordination Gross Coordination WNL Sensation Assessment Sensation Gross Sensation WNL Light Touch Intact Muscle Tone Muscle Tone WNL Yes M6 PT-IP Treatment Start: 10/07/20 14:49 Freq: NEEDED Status: Active Protocol: Document 10/07/20 16:28 DE (Rec: 10/07/20 17:03 DE [id number]) Physical Therapy Treatment Education Education Provided Precautions,Post-Op Packet, Safety Other Treatments Other Treatment Performed Pt education was provided on precautions, safety, and role of PT. M7 PT-IP Assessment and Plan Start: 10/07/20 14:49 Freq: NEEDED Status: Active Protocol: Document 10/07/20 16:28 DE (Rec: 10/07/20 17:03 DE [id number]) PT Summary Assessment and Plan Potential Rehabilitation Potential Good Status of Condition at Evaluation Evolving Summary Impairments Pain,ROM,Strength,Balance,Bed Mobility,Transfers,Gait, Activity Tolerance Assessment Summary Kim is a 70 yo female s/p L3 -4 TLIF post-op day 0. At baseline, IND for all mobility , amb, and ADLs without AD. On evalutation, pt requires CGA- min 1PA for all mobility, tansfers, and amb. Pt is not safe for d/c at this point. Pt will need to perform 5 steps with unilateral railing and increase amb distance before d /c. PT anticipates pt will d/c home with family assistance and FWW once medically cleared . Goals Bed Mobility Goal Independent Transfer Goal Independent Gait Goal Independent Gait Distance 100 Other Goals Pt will perform 3 steps x2 with unilateral railing. Days to Meet Goals 5 Frequency of Treatment Frequency Of Treatment Twice a Day Treatment Plan Physical Therapy Treatment Plan Bed Mobility Training,Transfer Training,Gait Training, Therapeutic Exercise,Balance Retraining,Post Op Education, Discharge Planning Other Recommendations and Next Treatment Stair climbing Focus Recommendations To Nursing Amount of Assist Needed 1 Person Assist Discharge Recommendations PT Discharge Recommendations Home with Assistance Transportation Needs at Discharge Private Vehicle Treatment was provided by Jatin oRdgers, SPT and supervised by Mayte Goode, PT. I personally reviewed this note and agree with its contents.
[2020-10-07] MEDS: OXYCODONE IR 5 MG TABLET 10 MG PO ×2 (17:39→22:51)
[2020-10-07] MEDS: hydrOXYzine pamoate 25 MG CAPSULE PO ×2 (17:40→22:51)
--- NOTE | 2020-10-07 18:22 | RT ---
HOSPITAL CPAP ON STAND-BY AT BEDSIDE W/ AVAILABLE O2 BLEED-IN. PT FITTED W/ MED MASK. PT IS CURRENTLY ON RA W/ O2 SAT OF 99%.
[2020-10-07] MEDS: HYDROMORPHONE 0.5 MG INJ IV ×3 (19:14→23:56)
[2020-10-07] MEDS: OLOPATADINE 0.1% OPHTH DROPS 5 ML 1 DROPS EYE-BOTH (20:30)
[2020-10-07] MEDS: DOCUSATE 100 MG CAPSULE PO (20:36)
[2020-10-07] MEDS: POTASSIUM CHLORIDE 20 MEQ TAB PO (20:40)
[2020-10-07] MEDS: MELATONIN 3 MG TABLET PO (20:40)
[2020-10-07] MEDS: ROSUVASTATIN 10 MG TABLET 20 MG PO (20:40)
[2020-10-07] MEDS: SENNOSIDES 8.6 MG TABLET 17.2 MG PO (20:41)
[2020-10-07] MEDS: LOSARTAN 25 MG TABLET 50 MG PO (21:30)
--- NOTE | 2020-10-07 21:49 | PC.NURSE ---
Pt having pain issues during the evening. Med for discomfort x 3 w/minimal relief. IVF infusing into the right hand w/o incidence. Pt sat in chair for short time. Dsg to back CDI, Call light w/in reach, bed alarm on for pt safety. Continue w/plan of care.
[2020-10-07] MEDS: ACETAMINOPHEN 325 MG TABLET 650 MG PO (23:56)
[2020-10-08] VITALS (8 sets, daily range): BP systolic 123–161; BP diastolic 49–75; PULSE 74–100; RESP 18–20; TEMP 36.6–37.6; O2SAT 94–96
--- NOTE | 2020-10-08 01:18 | PC.NURSE ---
Addendum entered by Josefina Cerda R.N. 10/08/20 06:06: States pain is currently 7/10 (back/head) but after pain med earlier pain went up to a 9 and is now coming back down. Requested/medicated with Tylenol. Addendum entered by Josefina Cerda R.N. 10/08/20 05:04: Reports back pain is currently at 6/10 so medicated with Oxycodone after being up to BSC to urinate. Complains also of headache but too early to repeat Tylenol. Addendum entered by Josefina Cerda R.N. 10/08/20 02:59: Patient is now asleep. Addendum entered by Josefina Cerda R.N. 10/08/20 02:04: Had Dilaudid earlier and still having 9/10 back pain. Medicated now with Oxycodone 20mg and repositioned onto left side. Original Note: Patient is alert and oriented. Breath sounds diminished but CTA with RA sat of 99%. HRR. Denies nausea. BT hypoactive; denies flatus. Denies dysuria, frequency or urgency with urination. Able to move self in bed. Up to BSC with walker and 1 assist. Dressing to back is CDI. Wearing bilateral calf SCD's. Having 9/10 back pain along with 8/10 headache unrelieved with earlier Oxycodone + Vistaril and later IV Dilaudid + Tylenol. Squirming, shifting, moaning and groaning with much facial grimacing; refusing ice pack. Dr Andrade informed and new orders received. Fall risk score is high and bed alarm is activated.
[2020-10-08] MEDS: HYDROMORPHONE 0.5 MG INJ IV ×4 (01:23→18:53)
[2020-10-08] MEDS: OXYCODONE IR 5 MG TABLET 20 MG PO ×2 (01:59→04:59)
[2020-10-08] MEDS: ACETAMINOPHEN 325 MG TABLET 650 MG PO ×3 (06:05→23:20)
--- NOTE | 2020-10-08 07:38 | PM.PN.1 ---
Subjective Subjective Date Patient Seen: 10/08/20 Time Patient Seen: 07:38 Interval history: POD #1 s/p L3-[address] Longoria. Pain poorly controlled overnight. Medication was increased to Oxycodone 20mg Q3hrs with inadequate relief. Pain is in same distribution as preop but worse. Has been OOB to bedside commode but otherwise not mobilizing. Exam Vital Signs (past 8 hours): - 10/08/20 04:58 Temperature 99.6 F Pulse Rate 100 H Respiratory Rate 18 Blood Pressure 133/72 Pulse Oximetry 95 Oxygen Delivery Method Room Air Oxygen Flow Rate 0 Narrative Exam Narrative: 70 year old female resting in bed in moderate discomfort. Alert and oriented. Patient unwilling to attempt log roll at this time. Will assess dressing later in the day. / BLE. Calves are soft, nontender bilaterally. Assessment & Plan Assessment & Plan narrative: Patient POD#1 s/p L3-4 TLIF. She will need to mobilize with PT today. Poor pain control, Dilaudid 4mg Q4hrs added instead of Oxycodone 20mg. Vistaril increased to 50mg from 25mg. Will hold off on steroid due to her diabetes for now. Will consider if no relief with current medication regimen. Possible discharge tomorrow if pain controlled and mobilizing appropriately. Quality VTE Deep Vein Thrombosis/Pulmonary Embolism Present on Admission: No
[2020-10-08] MEDS: INSULIN ASPART 100 UNIT/ML INSULN PEN SUBCUT ×6 (08:16→20:59)
[2020-10-08] MEDS: POTASSIUM CHLORIDE 20 MEQ TAB PO ×2 (08:30→20:56)
[2020-10-08] MEDS: DOCUSATE 100 MG CAPSULE PO ×2 (08:30→20:56)
[2020-10-08] MEDS: carvediloL 3.125 MG TABLET 6.25 MG PO (08:31)
[2020-10-08] MEDS: CHLORTHALIDONE 25 MG TABLET PO (08:31)
[2020-10-08] MEDS: FISH OIL 1,000 MG CAPSULE 1000 MG PO (08:31)
[2020-10-08] MEDS: HYDROMORPHONE 4 MG TABLET PO ×5 (08:32→23:58)
[2020-10-08] MEDS: OLOPATADINE 0.1% OPHTH DROPS 5 ML 1 DROPS EYE-BOTH ×2 (08:37→21:02)
[2020-10-08] MEDS: INSULIN GLARGINE 100 UNIT/ML 3ML PEN 54 UNIT SUBCUT (08:38)
--- NOTE | 2020-10-08 10:07 | OT.IP.EVAL ---
Current Diagnoses Spondylolisthesis, lumbar region (10/07/20) Other spondylosis with radiculopathy, lumbar region (10/07/20) Spinal stenosis, lumbar region without neurogenic claudication (10/07/20) Surgery Performed Operation Date: 10/07/20 07:45 Actual Procedures p L3-4 TLIF(Not Applicable) - Shlomo Longoria MD Past Medical History (Last Updated 09/25/20 @ 12:26 by Heide Umanzor, RN) Anasarca (Acute) Arthritis (Acute) Asthma (Acute) Chest pain (Acute) Chronic back pain (Acute) Chronic renal insufficiency (Acute) Corneal abrasion of both eyes (Acute) Coronary artery disease (Acute) Depression (Acute) Diabetes (Acute) Dry eye syndrome (Acute) Hyperlipidemia (Acute) Hypertension (Acute) Hypokalemia (Acute) Migraine (Acute) GARCIA (nonalcoholic steatohepatitis) (Acute) Osteoarthritis (Acute) Reactive airway disease (Acute) Sarcoidosis (Acute ~1996) Sciatica of right side (Acute) Seasonal allergies (Acute) Sleep apnea (Acute) Spinal stenosis of lumbar region with radiculopathy (Acute) Spondylolisthesis (Acute) Vitamin B12 deficiency (Acute) Surgical History (Last Updated 09/25/20 @ 09:06 by Heide Umanzor RN) History of 2 sections (Acute) History of bilateral cataract extraction (Acute 2015) History of colonoscopy (Acute 08/16/17) Hx of appendectomy (Acute) Hx of cholecystectomy (Acute) Hx of heart artery stent (Acute 02/24/19) Hx of laminectomy (Acute 11/23/16) Occupational Therapy Inpatient Evaluation/Re-Eval M1 PT/OT-IP Prior Functional Status Start: 10/08/20 13:08 Freq: NEEDED Status: Active Protocol: Document 10/08/20 09:35 [facility] (Rec: 10/08/20 13:33 [facility] [id number]) Medical Review Prior Functional Status Medical History Reviewed Yes Diet/Fluid Consistency Regular Communication WNL. No deficits noted. Able to make needs known. Mobility and Gait IND for all mobility and amb without any AD at baseline. Activities of Daily Living and IADL's IND for all ADLs and IADLs at baseline. Social History Household Members spouse,children Living Arrangements House Number of Floors (Floors) One Floor Number of Stairs To Enter/Railing? 5 REESE with R handrail ascending for a couple steps and L handrail ascending three steps. Home Environment Standard Height Toilet,High Toilet,Walk in Shower Home Equipment Front Wheel Walker,Straight Cane,Shower Seat without Backrest,Hand Held Shower,Long Handled Shoe Horn,Disk Operator, Grab Bars Near Toilet Employment Status Retired Additional Social History Comment Pt lives with spouse and daughter who will be available to help if needed. M2 OT-IP Current Condition Start: 10/08/20 13:08 Freq: Status: Active Protocol: Document 10/08/20 09:35 [facility] (Rec: 10/08/20 13:33 [facility] [id number]) Occupational Therapy Current Condition Current Condition Evaluation Date 10/08/20 Treatment Diagnosis Spinal stenosis s/p L3-4 TLIF Diagnosis Onset Date 10/07/29 Post Operative Precautions Lumbar Precautions Log Roll,No Twisting,Limit Bending,Lifting Restriction of 10 lbs,Gait Belt above Incisional Area M3 OT- IP Subjective and Pain Start: 10/08/20 13:08 Freq: Status: Active Protocol: Document 10/08/20 09:35 [facility] (Rec: 10/08/20 13:33 [facility] [id number]) OT- Subjective Occupational Therapy Visit Type Type Initial Evaluation Visit Start Time 09:35 Visit Stop Time 10:07 Total Visit Minutes 32 Occupational Therapy Visit Comments Patient Comments Pt agreed to get up for OT eval. Pt already sitting up in the recliner when therapist came in. Patient/Caregiver Goals To go home. OT Pain Assessment Pain When Pain Assessed During Mobility Pain Present Pain Present Pain Reported Location Lower Back Intensity 5 M4 OT- IP ADL's Start: 10/08/20 13:08 Freq: Status: Active Protocol: Document 10/08/20 09:35 [facility] (Rec: 10/08/20 13:33 [facility] [id number]) OT [id number] Comments OT Self-Feeding Comments Not at meal time. OT ADL-Grooming General Evaluation Grooming Ability Standby Assistance Areas Needing Assistance Retrieving/Set-up of Grooming Items Comments OT Grooming Comments Pt able to brush her hair while standing with FWW in front of her. VC to keep the FWW in front of her. OT ADL-Oral Care Comments Oral Care Comments Pt now wanting ot brush her teeth at this time. Pt to spit into a cup after brushing and rinsing her mouth to best follow her back precautions. OT ADL-Dressing General Eval Lower Body Dressing Ability Maximum Assistance Areas Needing Assistance Socks Assistive Devices Dressing Assistive Devices Disk Operator,Sock Aid Comments OT Dressing Comments Pt states has device for compression stocking that she can use for her socks. Pt able to use twill cutter to doff her socks. OT ADL-Toileting General Evaluation Toileting Ability Moderate Assistance Areas Needing Assistance Perform Perineal Hygiene Comments OT Toileting Comments Pt not able to appropriately reach for pericare needs and need assist. Pt aware to use wipes to increased ease and educated on information for toilet paper aid. OT ADL-Bathing Comments OT Bathing Comments To perform tomorrow. Pt states has a metal chair , but recommend that she gets a shower chair with back and adjustable legs. M5 OT- IP IADL's Start: 10/08/20 13:08 Freq: Status: Active Protocol: Document 10/08/20 09:35 [facility] (Rec: 10/08/20 13:33 [facility] [id number]) OT-Instrumental Activities of Daily Living Home Safety Awareness Awareness of Need for Assistance at Home Good Awareness Ability to Problem Solve Emergency Able to Problem Solve Situations Medication Management Medication Management Comments Pt states takes her own. Money Management Money Management Comments Pt states does her own bills. Meal Preparation Meal Preparation Caregiver Provides Assist Referral Specialist Referral Specialist Caregiver Provides Assist M6 OT- IP Functional Cognition Start: 10/08/20 13:08 Freq: Status: Active Protocol: Document 10/08/20 09:35 [facility] (Rec: 10/08/20 13:33 [facility] [id number]) Cognitive Factors Limiting Selfcare Function Cognitive Ability Level of Alertness Alert Patient Orientation Name,Place,Situation Attention Span Ability Capable of Focused Attention, Capable of Sustained Attention Ability to Follow Commands Able to Follow Multi-Step Commands Memory Description No Deficits Noted Cognitive Comments Cognitive Assessment Comments At this time, pt is aware of all her back precautions. Needing initial vc for FWW safety and to be able to incorporate back precautions for ADl and transfer needs. Pt appears at baseline for cognitive needs, continue to assess daily. OT- Vision and Hearing OT- Hearing Assessment OT- Hearing Assessment WFL OT- Vision Assessment Visual Acuity Glasses All The Time M7 OT- IP Mobility and Balance Start: 10/08/20 13:08 Freq: Status: Active Protocol: Document 10/08/20 09:35 [facility] (Rec: 10/08/20 13:33 [facility] [id number]) OT-Transfer Assessment Sit to and From Stand Sit to and from Stand Minimal Assistance Transfers Transfer Ability Contact Guard Assistance Technique Transfer Destination Chair,Toilet Transfer Technique Stand Step Pivot Devices Transfer Assistive Devices Gait Belt,Front Wheeled Walker Comments Mobility Comments SHYLA to stand from lower surfaces and CGA with FWW in the room. OT- Balance Assessment Sitting Balance and Reactions Static Sitting Balance Ability Normal Dynamic Sitting Balance Ability Good Standing Balance and Reactions Static Standing Balance Ability Fair M8 OT- IP Objective Assessments Start: 10/08/20 13:08 Freq: Status: Active Protocol: Document 10/08/20 09:35 [facility] (Rec: 10/08/20 13:33 [facility] [id number]) OT Gross Range of Motion Upper Extremity Range of Motion Assessment Within Functional Limits OT-Muscle Tone Assessment Muscle Tone WNL Yes M9 OT- IP Assessment and Plan Start: 10/08/20 13:08 Freq: Status: Active Protocol: Document 10/08/20 09:35 [facility] (Rec: 10/08/20 13:33 [facility] [id number]) OT Summary Assessment and Plan Potential Rehabilitation Potential Good Analytic Complexity at Evaluation Low Summary OT Impairments Pain,Functional Mobility, Grooming,Dressing,Toileting, Bathing,Toilet Transfers, Shower Transfers,Activity Tolerance Progress Towards Goals Progressing Toward Goals Assessment Summary Pt low complexity and main barriers will be steps and pericare needs. Pt has a supportive family to assist with needs if needed. Pt looking to get a toilet paper aid to help with her pericare needs. Pt to do showering in OT tomorrow and continue to educate on back precaution needs. Pt looking to go home with assist when medically stable. Goals Grooming Goal Independent Dressing Goal Independent Toileting Goal Independent Bathing Goal Independent Toilet Transfer Goal Independent Shower Transfer Goal Independent Patient/Caregiver Education Goal Demonstrate Post-Op Precautions,Caregiver Independent Assisting Patient Days to Meet Goals 3 Frequency of Treatment Frequency Of Treatment Once a Day Treatment Plan OT Treatment Plan ADL Training,Functional Mobility,Patient/Family Education,Discharge Planning Other Treatment Recommendations and Next Shower Treatment Focus Discharge Recommendations OT Discharge Recommendations Home with Assistance Home Equipment Needs Shower chair, toilet paper aid Transportation Needs at Discharge Private Vehicle
--- NOTE | 2020-10-08 10:35 | PT.IPTN ---
Current Diagnoses Spondylolisthesis, lumbar region (10/07/20) Other spondylosis with radiculopathy, lumbar region (10/07/20) Spinal stenosis, lumbar region without neurogenic claudication (10/07/20) Surgery Performed Operation Date: 10/07/20 07:45 Actual Procedures p L3-4 TLIF(Not Applicable) - Shlomo Longoria MD Physical Therapy Treatment Note M2 PT-IP Current Condition Start: 10/07/20 14:49 Freq: NEEDED Status: Active Protocol: Document 10/07/20 16:28 [facility] (Rec: 10/07/20 17:03 [facility] [id number]) Physical Therapy Current Condition Current Condition Evaluation Date 10/07/20 Treatment Diagnosis L3-4 TLIF; Difficulty with walking Onset Date 10/07/20 Precautions Lumbar Precautions Log Roll,No Twisting,Limit Bending,Lifting Restriction of 10 lbs,Gait Belt above Incisional Area M3 PT-IP Subjective Start: 10/07/20 14:49 Freq: NEEDED Status: Active Protocol: Document 10/08/20 10:30 [facility] (Rec: 10/08/20 13:29 [place] [id number]) Subjective Physical Therapy Visit Type Type Treatment Note Visit Start Time 10:13 Visit Stop Time 10:30 Total Visit Minutes 17 Notes SPT Jatin led the session under direct supervision of PT Mayte throughout the entire session. Pt's was present. Number of BLOCKLAYER Visits 0 Physical Therapy Visit Comments Patient Comments Pt is agreeable to do PT. Patient Goals To return home. Therapy Pain Assessment Pain When Pain Assessed During Mobility Pain Present Pain Present Pain Reported Location Lower Back Intensity 6 Scale Used Numeric (0 - 10) Description Aching,Acute Pain Behaviors Calling Out,Facial Grimacing, Moaning,Wincing M4 PT-IP Mobility and Gait Start: 10/07/20 14:49 Freq: NEEDED Status: Active Protocol: Document 10/08/20 10:30 [facility] (Rec: 10/08/20 13:29 [facility] [id number]) PT-Transfer Assessment Sit to and From Stand Sit to and from Stand Contact Guard Assistance,Use of Upper Extremities Equipment Transfer Assistive Device Gait Belt,Front Wheeled Walker Orthotic/Prosthetic Devices or Brace: No Transfers Transfer Destination Bed,Bedside Commode Transfer Technique Stand Step Pivot Transfer Ability Level of Assist Contact Guard Assistance Comments Mobility Comments Pt was sitting in chair as PT and SPT arrived. Pain was 6/10 at rest in sitting. Pt completed sit to stand with CGA, use of B armrests, and FWW. Pt then amb around foot of bed to the door and back to the chair with CGA and FWW. Pt demonstrated antalgic step- through gait pattern with decreased stride length and decreased gait speed. Pt also had labored breathing d/t both fatigue and pain during amb. Pt sat down on the chair with the footrest and pillows on the back. Call light placed within reach. Gait Assessment Gait Gait Assistance Required: Contact Guard Assist Distance (Feet) 20 Able to Maintain Weight Bearing Status Yes During Gait Assistive Devices Assistive Device Front Wheeled Walker Orthotic/Prosthetic Devices or Brace: No Gait Deviations General Gait Pattern Antalgic,Decreased Stride Length,Decreased Feet Clearance,Lateral Trunk Lean Factors Limiting Gait Function Factors Limiting Gait Function Decreased Activity Tolerance, Decreased Strength,Limited Range of Motion,Pain,Poor Balance Comments Gait Comments See mobility comments. Stair Climbing Assessment Comments Stair Climbing Comments Not assessed. PT-Balance Assessment Sitting Balance and Reactions Static Sitting Balance Ability Normal Dynamic Sitting Balance Ability Good Standing Balance and Reactions Static Standing Balance Ability Good Dynamic Standing Balance Ability Fair M5 PT-IP Objective Assessments Start: 10/07/20 14:49 Freq: NEEDED Status: Active Protocol: Document 10/07/20 16:28 [facility] (Rec: 10/07/20 17:03 [place] [id number]) Orientation Orientation/Cognition Level of Alertness Alert Orientation Name,Age,Birthday,Month,Date, Year,Day of Week,Place, Situation Language Function Ability No Deficits Noted Safety Awareness Understands Safety Issues Memory Description No Deficits Noted Gross Range of Motion Lower Extremity ROM Assessment Bilaterally Impaired Impairments Limited d/t back pain Strength Lower Extremity Strength Assessment Bilaterally Impaired Comments Strength Comments Limited d/t back pain. Coordination Assessment Gross Coordination Gross Coordination WNL Sensation Assessment Sensation Gross Sensation WNL Light Touch Intact Muscle Tone Muscle Tone WNL Yes M6 PT-IP Treatment Start: 10/07/20 14:49 Freq: NEEDED Status: Active Protocol: Document 10/08/20 10:30 [place] (Rec: 10/08/20 13:29 [place] [id number]) Physical Therapy Treatment Education Education Provided Precautions,Post-Op Packet, Safety Other Treatments Other Treatment Performed Pt education was provided on precautions, safety, and role of PT. M7 PT-IP Assessment and Plan Start: 10/07/20 14:49 Freq: NEEDED Status: Active Protocol: Document 10/08/20 10:30 [facility] (Rec: 10/08/20 13:29 [place] [id number]) PT Summary Assessment and Plan Potential Rehabilitation Potential Good Status of Condition at Evaluation Evolving Summary Impairments Pain,ROM,Strength,Balance,Bed Mobility,Transfers,Gait, Activity Tolerance Assessment Summary Overall, pt had improved pain and mobility from initial eval . Pt performed sit to stand and amb ~20 ft with CGA and FWW. However, her activity tolerance is still limited d/t pain and fatigue. Pt will need to improve amb distance before d/c. Pt reported that she actually does not have railing throughout the entire steps at home so pt will also need to perform 5 steps without railing before d/c. PT will continue to assess and refine d/c recommendation. Goals Bed Mobility Goal Independent Transfer Goal Independent Gait Goal Independent Gait Distance 100 Other Goals Pt will perform 3 steps with unilateral railing and 2 steps without railing. Days to Meet Goals 5 Frequency of Treatment Frequency Of Treatment Twice a Day Treatment Plan Physical Therapy Treatment Plan Bed Mobility Training,Transfer Training,Gait Training, Therapeutic Exercise,Balance Retraining,Post Op Education, Discharge Planning Other Recommendations and Next Treatment Amb distance Focus Stair climbing Recommendations To Nursing Amount of Assist Needed 1 Person Assist Discharge Recommendations PT Discharge Recommendations Home with Assistance Transportation Needs at Discharge Private Vehicle Treatment was provided by Jatin Rodgers, DARRYN and supervised by Mayte Goode, PT. I personally reviewed this note and agree with its contents.
[2020-10-08] MEDS: hydrOXYzine pamoate 25 MG CAPSULE 50 MG PO ×2 (15:33→23:20)
--- NOTE | 2020-10-08 15:54 | PT.IPTN ---
Current Diagnoses Spondylolisthesis, lumbar region (10/07/20) Other spondylosis with radiculopathy, lumbar region (10/07/20) Spinal stenosis, lumbar region without neurogenic claudication (10/07/20) Surgery Performed Operation Date: 10/07/20 07:45 Actual Procedures p L3-4 TLIF(Not Applicable) - Shlomo Longoria MD Physical Therapy Treatment Note M2 PT-IP Current Condition Start: 10/07/20 14:49 Freq: NEEDED Status: Active Protocol: Document 10/07/20 16:28 [facility] (Rec: 10/07/20 17:03 DE [id number]) Physical Therapy Current Condition Current Condition Evaluation Date 10/07/20 Treatment Diagnosis L3-4 TLIF; Difficulty with walking Onset Date 10/07/20 Precautions Lumbar Precautions Log Roll,No Twisting,Limit Bending,Lifting Restriction of 10 lbs,Gait Belt above Incisional Area M3 PT-IP Subjective Start: 10/07/20 14:49 Freq: NEEDED Status: Active Protocol: Document 10/08/20 15:21 [facility] (Rec: 10/08/20 15:52 DE [id number]) Subjective Physical Therapy Visit Type Type Treatment Note Visit Start Time 14:27 Visit Stop Time 14:52 Total Visit Minutes 25 Notes SPT Jatin led the session under direct supervision of PT Mayte throughout the entire session. Number of GUARD RAIL INSTALLER Visits 0 Physical Therapy Visit Comments Patient Comments Pt is agreeable to do PT. Patient Goals To return home. Therapy Pain Assessment Pain When Pain Assessed During Mobility Pain Present Pain Present Pain Reported M4 PT-IP Mobility and Gait Start: 10/07/20 14:49 Freq: NEEDED Status: Active Protocol: Document 10/08/20 15:21 [facility] (Rec: 10/08/20 15:52 DE [id number]) PT-Bed Mobility Assessment Rolling Type of Rolling Log Rolling Level of Assist Minimal Assistance,2 Person Assistance Sit to Supine Sit to Supine Minimal Assistance,1 Person Assistance PT-Transfer Assessment Sit to and From Stand Sit to and from Stand Minimal Assistance,1 Person Assistance,Use of Upper Extremities Equipment Transfer Assistive Device Gait Belt,Front Wheeled Walker Orthotic/Prosthetic Devices or Brace: No Transfers Transfer Destination Bed Transfer Technique Stand Step Pivot Transfer Ability Level of Assist Minimal Assistance,1 Person Assistance,Use of Upper Extremities Comments Mobility Comments Pt was sitting in chair as PT and SPT arrived. Pt completed sit to stand with FWW and 1P min assist for stabilizing the FWW. Pt relied heavily on her BUE through FWW to stand up. Pt then amb ~50 ft around foot of bed, out in the hallway, and back to the room. Pt needed a short standing break towards the end of amb d/t back tightness. Pt had mild labored breathing during amb d /t pain and fatigue. Pt also c /o pain down the posterior aspect of her legs. Pt demonstrated antalgic and slow step-through gait pattern with decreased stride length and feet clearance. Pt requested to lie on bed and sat down on the L side of bed. Pt attempted to perform logroll to get to supine but failed several times d/t pain. Pt had difficulty with going down on her elbow to sidelying from sitting EOB. Eventually pt was able to perform logroll with elevated HOB and 2P min assist for supporting at her legs and trunk. Pt had difficulty maintaining her spine precautions as she kept twisting to reach for bedrails . Pt c/o discomfort in supine and repositioned to semi- sidelying position to the L side. Pillows were placed between her legs, behind the back, between her arms to make her more comfortable. Call light placed within reach. Gait Assessment Gait Gait Assistance Required: Contact Guard Assist Distance (Feet) 50 Able to Maintain Weight Bearing Status Yes During Gait Assistive Devices Assistive Device Front Wheeled Walker Orthotic/Prosthetic Devices or Brace: No Gait Deviations General Gait Pattern Antalgic,Decreased Stride Length,Decreased Feet Clearance,Lateral Trunk Lean Factors Limiting Gait Function Factors Limiting Gait Function Decreased Activity Tolerance, Decreased Strength,Limited Range of Motion,Pain,Poor Balance Comments Gait Comments See mobility comments. Stair Climbing Assessment Comments Stair Climbing Comments Not assessed. PT-Balance Assessment Sitting Balance and Reactions Static Sitting Balance Ability Normal Dynamic Sitting Balance Ability Good Standing Balance and Reactions Static Standing Balance Ability Good Dynamic Standing Balance Ability Fair Physical Therapy Treatment Education Education Provided Precautions,Post-Op Packet, Safety M7 PT-IP Assessment and Plan Start: 10/07/20 14:49 Freq: NEEDED Status: Active Protocol: Document 10/08/20 15:21 [place] (Rec: 10/08/20 15:52 DE [id number]) PT Summary Assessment and Plan Potential Rehabilitation Potential Good Status of Condition at Evaluation Evolving Summary Impairments Pain,ROM,Strength,Balance,Bed Mobility,Transfers,Gait, Activity Tolerance Assessment Summary Pt improved her amb distance. She was able to amb 50 ft with CGA and FWW. However, her gait is still very antalgic and slow. Pt also had increased difficulty with logrolling from sit to supine d/t pain. Pt will need to improve activity tolerance and perform 3 steps with unilateral railing and 2 steps without railing before d/c. PT will continue to assess and refine d/c recommendation. Goals Bed Mobility Goal Independent Transfer Goal Independent Gait Goal Independent Gait Distance 100 Other Goals Pt will perform 3 steps with unilateral railing and 2 steps without railing. Days to Meet Goals 5 Frequency of Treatment Frequency Of Treatment Twice a Day Treatment Plan Physical Therapy Treatment Plan Bed Mobility Training,Transfer Training,Gait Training, Therapeutic Exercise,Balance Retraining,Post Op Education, Discharge Planning Other Recommendations and Next Treatment Amb distance Focus Stair climbing Recommendations To Nursing Amount of Assist Needed 1 Person Assist Discharge Recommendations PT Discharge Recommendations Home with Assistance Home Health Transportation Needs at Discharge Private Vehicle Treatment was provided by Jatin Rodgers, SPT and supervised by Mayte Goode, PT. I personally reviewed this note and agree with its contents.
--- NOTE | 2020-10-08 16:22 | CM.DANOTE ---
Discharge Planning/Care Management DCP: assessment: Case received and discussed in Team Rounds. Pt is a 70 year old female who admitted yesterday for a planned spinal surgery. Surgeon: Dr. Longoria PCP: Dr. Montesinos Admission status: INPT: confirmed by UR RN Jatin Payer: Medicare and for Life. PT and OT are seeing pt. Due to lateness of hour will need to defer to DCP team on for tomorrow: pt is well positioned for various d/c dispositions with the Medicare/INPT combination. Pre-Anesthesia Assessment Start: 09/25/20 08:26 Freq: Status: Complete Protocol: Document 09/25/20 08:26 CAB (Rec: 09/25/20 09:37 CAB [id number]) Pre-Anesthesia Assessment Patient Information Reviewed Via Phone Assessment Assessment Completed With Patient Diagnostic Results BMP/CMP,CBC Comment Labs @ [facility] 07/15/20, COVID screen not scheduled-gave # to call to schedule Primary Care Provider Faustino Montesinos Seen Specialist in Last 12 Months Yes Specialist Seen Counter Cutter,Wax Pattern Coater, Orthopedist Comment Endocrinology visit 07/26/20 scanned Primary Language Turkish Director Of Financial Planning Required No Height 157.48 cm Weight 109.316 kg Body Mass Index (BMI) 44.0 Hearing Ability Normal Visual Assist Glasses,Magnifying Glass Dentition Type Teeth, Natural Present Barriers to Learning None Hx Anesthesia Reactions No: ELVIS, no CPAP Hx Family Anesthesia Reaction No Hx Malignant Hyperthermia No Hx Blood Transfusions Yes: r/t Hx Blood Transfusion Reaction No Anesthesia Review Requested No alcohol intake never Smoking Status Never smoker Substance Use Type does not use Pain Present Pain Reported Musculoskeletal Symptoms Abnormal Gait,Back Pain, Difficulty Walking,Muscle Spasms,Muscle Weakness, Numbness,Radiating Pain into Limb,Tingling History of Falling (Recent or History of Yes ) Patient is completely paralyzed or No completely immobile Prosthesis or Orthotic Device Cane Mental Status Oriented to own ability Is patient on oxygen? No Does patient have CASTORENA/SOB Yes Hx Sleep Apnea Yes CPAP/BIPAP use prescribed not used Currently Taking a Beta Taya Yes: Carvedilol Hx Chest Pain Yes Hx SOB Yes Hx Syncope or Dizziness Yes: Syncope as a child Anti-Coagulant Therapy Yes: ASA 81mg Has a Counter Cutter Yes: Dr. Poole-last visit Cardiac Testing Nuc Perfusion @ [facility] 5/13/20 Hx Pacemaker/ICD No Pacemaker Rep Required? No Cardiac Clearance Received Yes Comment Cardiac clearance within visit 02/19/20, records scanned Diet Type At Home Regular dysphagia No Gastrointestinal Symptoms Bloating Bladder Pattern Urgency Urinary Catheter Present No Hx Urinary Self Catheterization No Diabetes Yes: Pt checks blood sugars once a day HgbA1C 7.5 Date 07/15/20 Patient No Lactating No Presence of External or Internal Medical Yes: Cardiac stents x 2, iram Devices eye lens Have you had any close contact with No someone diagnosed with COVID-19? Marital Status Lives With spouse,children Prior Living Arrangements House Number of Floors (Floors) One Floor Support System Child/Children,Spouse Patient Discharge Plan Description Return Home Comment Pt advised 1-2 day length of stay per surgeon Feels Safe in Current Environment Yes Been Physically Hurt or Threatened By a No Person in Current Environment Do you have thoughts of harming yourself None or others? Are you currently considering suicide? No Do you have a plan to hurt yourself or No Plan others? Do You Have Any Spiritual Beliefs That No May Affect Your HC Choices? Do You Have Any Cultural Practices That No May Affect Your HC Choices? Who Can We Speak to About Patient's Care Family, friends Identifying Code for Release of Patient Declines to issue Information Health Care Proxy/Next of Kin Phil () Health Care Proxy Emergency Contact Name Geovanna (daughter) Emergency Contact Advance Directives? No Power of Pencils Washer No PAC Instructions Durable medical equipment, Medications to take/avoid, Nasal antibiotic,No ETOH/ petroleum product on skin DOS, NPO,Pre-surgical wash,Sturdy shoes/comfortable clothes,Do not bring valuables and remove jewelry
[2020-10-08] MEDS: SENNOSIDES 8.6 MG TABLET 17.2 MG PO (20:55)
[2020-10-08] MEDS: ROSUVASTATIN 10 MG TABLET 20 MG PO (20:55)
[2020-10-08] MEDS: LOSARTAN 25 MG TABLET 50 MG PO (20:56)
[2020-10-08] MEDS: MELATONIN 3 MG TABLET PO (21:00)
[2020-10-08] MEDS: SODIUM CHLORIDE 0.9% FLUSH 10 ML IV (21:03)
[2020-10-09] VITALS (8 sets, daily range): BP systolic 109–141; BP diastolic 49–75; PULSE 75–110; RESP 15–20; TEMP 36–37.6; O2SAT 93–98
[2020-10-09] MEDS: HYDROMORPHONE 0.5 MG INJ IV ×2 (00:02→02:49)
[2020-10-09] MEDS: ACETAMINOPHEN 325 MG TABLET 650 MG PO ×3 (04:11→21:48)
[2020-10-09] MEDS: HYDROMORPHONE 4 MG TABLET PO ×4 (04:11→20:21)
--- NOTE | 2020-10-09 07:55 | PM.PN.1 ---
Subjective Subjective Date Patient Seen: 10/09/20 Time Patient Seen: 07:55 Interval history: Patient is POD#2 s/p L3-[address] Longoria. Continued to have pain control issues yesterday which were somewhat improved with addition of PO Dilaudid. Was able to mobilize somewhat with PT but also continuing to use bedpan for voids. Pain is both incisional and radiating into the legs to the ankle. Exam Vital Signs (past 8 hours): - 10/09/20 02:15 10/09/20 02:49 10/09/20 06:46 Temperature 99.7 F H 99.7 F H 97.8 F Pulse Rate 89 76 Respiratory Rate 18 15 Blood Pressure 125/54 L 109/51 L Pulse Oximetry 93 98 Oxygen Delivery Method Room Air Oxygen Flow Rate 0 Narrative Exam Narrative: 70 year old female resting in bed. Alert and oriented in no acute distress. Dressing in place over lumbar spine. 5/5 BLE, patient apprehensive of pain during exam. Calves are soft, nontender. Assessment & Plan Assessment & Plan narrative: Patient is POD#2 s/p L3-[address] Longoria. Continuing to recover slowly though made some progress with PT/OT today. She has significant medical comorbidities including insulin dependent type 2 diabetes, angina, CAD, HTN, HLD, GARCIA, sarcoidosis, obesity with BMI of 44.8, asthma, and ELVIS. In regards to pain control, discussed with Dr. Longoria. We will discontinue Oxycodone IR 20mg and add Oxycodone ER 10mg BID and Valium 5mg Q6hrs. Continue Dilaudid 4mg Q3hrs. Will hold off on steroids due to her elevated blood glucose. Support system at home is not idea, has the shakes per patient and her daughter is unable to help with medical things. If no significant improvement with PT tomorrow may require SNF. Quality VTE Deep Vein Thrombosis/Pulmonary Embolism Present on Admission: No
[2020-10-09] MEDS: POTASSIUM CHLORIDE 20 MEQ TAB PO ×2 (08:25→21:49)
[2020-10-09] MEDS: carvediloL 3.125 MG TABLET 6.25 MG PO (08:25)
[2020-10-09] MEDS: DOCUSATE 100 MG CAPSULE PO ×2 (08:25→21:48)
[2020-10-09] MEDS: hydrOXYzine pamoate 25 MG CAPSULE 50 MG PO ×2 (08:25→12:33)
[2020-10-09] MEDS: INSULIN GLARGINE 100 UNIT/ML 3ML PEN 54 UNIT SUBCUT (09:11)
[2020-10-09] MEDS: INSULIN ASPART 100 UNIT/ML INSULN PEN SUBCUT ×7 (09:11→21:58)
[2020-10-09] MEDS: OLOPATADINE 0.1% OPHTH DROPS 5 ML 1 DROPS EYE-BOTH ×2 (09:12→21:57)
[2020-10-09] MEDS: CHLORTHALIDONE 25 MG TABLET PO (09:13)
[2020-10-09] MEDS: SODIUM CHLORIDE 0.9% FLUSH 10 ML IV ×2 (09:13→22:06)
[2020-10-09] MEDS: FISH OIL 1,000 MG CAPSULE 1000 MG PO (09:13)
[2020-10-09] MEDS: KETOCONAZOLE 2% CREAM 15 GM 1 APPLIC TOP (09:14)
--- NOTE | 2020-10-09 11:09 | PT.IPTN ---
Current Diagnoses Spondylolisthesis, lumbar region (10/07/20) Other spondylosis with radiculopathy, lumbar region (10/07/20) Spinal stenosis, lumbar region without neurogenic claudication (10/07/20) Surgery Performed Operation Date: 10/07/20 07:45 Actual Procedures p L3-4 TLIF(Not Applicable) - Shlomo Longoria MD Physical Therapy Treatment Note M2 PT-IP Current Condition Start: 10/07/20 14:49 Freq: NEEDED Status: Active Protocol: Document 10/07/20 16:28 DE (Rec: 10/07/20 17:03 DE [id number]) Physical Therapy Current Condition Current Condition Evaluation Date 10/07/20 Treatment Diagnosis L3-4 TLIF; Difficulty with walking Onset Date 10/07/20 Precautions Lumbar Precautions Log Roll,No Twisting,Limit Bending,Lifting Restriction of 10 lbs,Gait Belt above Incisional Area M3 PT-IP Subjective Start: 10/07/20 14:49 Freq: NEEDED Status: Active Protocol: Document 10/09/20 10:37 RUY (Rec: 10/09/20 11:09 LJ [email or web address]) Subjective Physical Therapy Visit Type Type Treatment Note Visit Start Time 10:37 Visit Stop Time 10:51 Total Visit Minutes 14 Number of CONCRETE PUDDLER Visits 1 Physical Therapy Visit Comments Patient Comments Pt is agreeable to do PT. Patient Goals To return home. Therapy Pain Assessment Pain When Pain Assessed At Rest Pain Present Pain Present Pain Reported M4 PT-IP Mobility and Gait Start: 10/07/20 14:49 Freq: NEEDED Status: Active Protocol: Document 10/09/20 10:37 RUY (Rec: 10/09/20 11:09 LJ [id number]) PT-Transfer Assessment Sit to and From Stand Sit to and from Stand Contact Guard Assistance,1 Person Assistance,Use of Upper Extremities Equipment Transfer Assistive Device Gait Belt,Front Wheeled Walker Orthotic/Prosthetic Devices or Brace: No Transfers Transfer Destination Chair Transfer Technique Stand Step Pivot Transfer Ability Level of Assist Contact Guard Assistance,Use of Upper Extremities Comments Mobility Comments Pt resting in chair wanting to get up. Reported having a shower earlier this morning. Pt completed sit<>stand with FWW CGA for both directions. [place] to scomplete standing pt paused for a second or two due to pain in mid standing position. Pt was careful and adhered to precautions. Able to position herself in chair without assistance. Gait Assessment Gait Gait Assistance Required: Contact Guard Assist Distance (Feet) 30 Able to Maintain Weight Bearing Status Yes During Gait Assistive Devices Assistive Device Front Wheeled Walker Orthotic/Prosthetic Devices or Brace: No Gait Deviations General Gait Pattern Antalgic,Decreased Stride Length,Decreased Feet Clearance,Lateral Trunk Lean Factors Limiting Gait Function Factors Limiting Gait Function Decreased Activity Tolerance, Decreased Strength,Limited Range of Motion,Pain,Poor Balance Comments Gait Comments Pt ambulated in room around the bed and back to chair. Flexed trunk and antalgic gait . Pt did not want to go into hallway due to the pain and fatigue level. Stair Climbing Assessment Comments Stair Climbing Comments Not assessed. M5 PT-IP Objective Assessments Start: 10/07/20 14:49 Freq: NEEDED Status: Active Protocol: Document 10/07/20 16:28 DE (Rec: 10/07/20 17:03 DE [id number]) Orientation Orientation/Cognition Level of Alertness Alert Orientation Name,Age,Birthday,Month,Date, Year,Day of Week,Place, Situation Language Function Ability No Deficits Noted Safety Awareness Understands Safety Issues Memory Description No Deficits Noted Gross Range of Motion Lower Extremity ROM Assessment Bilaterally Impaired Impairments Limited d/t back pain Strength Lower Extremity Strength Assessment Bilaterally Impaired Comments Strength Comments Limited d/t back pain. Coordination Assessment Gross Coordination Gross Coordination WNL Sensation Assessment Sensation Gross Sensation WNL Light Touch Intact Muscle Tone Muscle Tone WNL Yes M6 PT-IP Treatment Start: 10/07/20 14:49 Freq: NEEDED Status: Active Protocol: Document 10/09/20 10:37 RUY (Rec: 10/09/20 11: LJ [id number]) Physical Therapy Treatment Education Education Provided Precautions,Safety M7 PT-IP Assessment and Plan Start: 10/07/20 14:49 Freq: NEEDED Status: Active Protocol: Document 10/09/20 10:37 RUY (Rec: 10/09/20 11:09 LJ [email or web address]) PT Summary Assessment and Plan Potential Rehabilitation Potential Good Status of Condition at Evaluation Evolving Summary Impairments Pain,ROM,Strength,Balance,Bed Mobility,Transfers,Gait, Activity Tolerance Assessment Summary Pt improved with pain control this session.Able to ambulate around the room after already having a shower this morning. She moved cautiously and slowly and stuck to her precautions. She was left sitting in the chair with all needs within reach. Goals Bed Mobility Goal Independent Transfer Goal Independent Gait Goal Independent Gait Distance 100 Other Goals Pt will perform 3 steps with unilateral railing and 2 steps without railing. Days to Meet Goals 5 Frequency of Treatment Frequency Of Treatment Twice a Day Treatment Plan Physical Therapy Treatment Plan Bed Mobility Training,Transfer Training,Gait Training, Therapeutic Exercise,Balance Retraining,Post Op Education, Discharge Planning Other Recommendations and Next Treatment Amb distance Focus Stair climbing Recommendations To Nursing Amount of Assist Needed 1 Person Assist Discharge Recommendations PT Discharge Recommendations Home with Assistance,Home Health
[2020-10-09] MEDS: OXYCODONE IR 5 MG TABLET 20 MG PO (14:23)
--- NOTE | 2020-10-09 15:10 | OT.IP.TRT ---
Current Diagnoses Spondylolisthesis, lumbar region (10/07/20) Other spondylosis with radiculopathy, lumbar region (10/07/20) Spinal stenosis, lumbar region without neurogenic claudication (10/07/20) Surgery Performed Operation Date: 10/07/20 07:45 Actual Procedures p L3-4 TLIF(Not Applicable) - Shlomo Longoria MD Occupational Therapy Treatment Note M2 OT-IP Current Condition Start: 10/08/20 13:08 Freq: Status: Active Protocol: Document 10/08/20 09:35 [facility] (Rec: 10/08/20 13:33 [facility] [id number]) Occupational Therapy Current Condition Current Condition Evaluation Date 10/08/20 Treatment Diagnosis Spinal stenosis s/p L3-4 TLIF Diagnosis Onset Date 10/07/29 Post Operative Precautions Lumbar Precautions Log Roll,No Twisting,Limit Bending,Lifting Restriction of 10 lbs,Gait Belt above Incisional Area M3 OT- IP Subjective and Pain Start: 10/08/20 13:08 Freq: Status: Active Protocol: Document 10/09/20 15:00 [facility] (Rec: 10/09/20 16:19 [facility] [id number]) OT- Subjective Occupational Therapy Visit Type Type Treatment Note Visit Start Time 15:00 Visit Stop Time 15:10 Total Visit Minutes 10 Occupational Therapy Visit Comments Patient Comments Pt not wanting to get up as in too much pain but willing to take about her back precautions and equipment needs. Pt did states able to shower earlier with assist form nursing. Patient/Caregiver Goals To go home. OT Pain Assessment Pain When Pain Assessed During Mobility Pain Present Pain Present Pain Reported Location Lower Back Intensity 8 Scale Used Numeric (0 - 10) M4 OT- IP ADL's Start: 10/08/20 13:08 Freq: Status: Active Protocol: Document 10/09/20 15:00 [facility] (Rec: 10/09/20 16:19 [facility] [id number]) OT [id number] Comments OT Self-Feeding Comments Not at meal time. OT ADL-Grooming Comments OT Grooming Comments not performed OT ADL-Oral Care Comments Oral Care Comments Reviewed best to spit into a cup to best follow her back precautions. OT ADL-Toileting Comments OT Toileting Comments Pt states she will look into getting a toilet paper aid and help pt write in down so that she would remember. OT ADL-Bathing Comments OT Bathing Comments Pt states showered this morning. Pt states to look into getting a shower chair for home use. M5 OT- IP IADL's Start: 10/08/20 13:08 Freq: Status: Active Protocol: Document 10/08/20 09:35 [facility] (Rec: 10/08/20 13:33 [facility] [id number]) OT-Instrumental Activities of Daily Living Home Safety Awareness Awareness of Need for Assistance at Home Good Awareness Ability to Problem Solve Emergency Able to Problem Solve Situations Medication Management Medication Management Comments Pt states takes her own. Money Management Money Management Comments Pt states does her own bills. Meal Preparation Meal Preparation Caregiver Provides Assist [employer] Caregiver Provides Assist M6 OT- IP Functional Cognition Start: 10/08/20 13:08 Freq: Status: Active Protocol: Document 10/09/20 15:00 [facility] (Rec: 10/09/20 16:19 [facility] [id number]) Cognitive Factors Limiting Selfcare Function Cognitive Ability Level of Alertness Alert Patient Orientation Name,Place,Situation Attention Span Ability Capable of Focused Attention, Capable of Sustained Attention Ability to Follow Commands Able to Follow One Step Commands with Increased Time, Able to Follow One Step Commands with Repetition Cognitive Comments Cognitive Assessment Comments Pt very groggy and not recalling her back precautions and having trouble to follow commands and think. Pt feels that she is on too much medications. Nursing aware of pt's grogginess. M7 OT- IP Mobility and Balance Start: 10/08/20 13:08 Freq: Status: Active Protocol: Document 10/08/20 09:35 [facility] (Rec: 10/08/20 13:33 [facility] [id number]) OT-Transfer Assessment Sit to and From Stand Sit to and from Stand Minimal Assistance Transfers Transfer Ability Contact Guard Assistance Technique Transfer Destination Chair,Toilet Transfer Technique Stand Step Pivot Devices Transfer Assistive Devices Gait Belt,Front Wheeled Walker Comments Mobility Comments SHYLA to stand from lower surfaces and CGA with FWW in the room. OT- Balance Assessment Sitting Balance and Reactions Static Sitting Balance Ability Normal Dynamic Sitting Balance Ability Good Standing Balance and Reactions Static Standing Balance Ability Fair M8 OT- IP Objective Assessments Start: 10/08/20 13:08 Freq: Status: Active Protocol: Document 10/08/20 09:35 [facility] (Rec: 10/08/20 13:33 [facility] [id number]) OT Gross Range of Motion Upper Extremity Range of Motion Assessment Within Functional Limits OT-Muscle Tone Assessment Muscle Tone WNL Yes M9 OT- IP Assessment and Plan Start: 10/08/20 13:08 Freq: Status: Active Protocol: Document 10/09/20 15:00 [facility] (Rec: 10/09/20 16:19 [facility] [id number]) OT Summary Assessment and Plan Potential Rehabilitation Potential Good Analytic Complexity at Evaluation Low Summary OT Impairments Pain,Functional Mobility, Grooming,Dressing,Toileting, Bathing,Toilet Transfers, Shower Transfers,Activity Tolerance Progress Towards Goals Slow Progress due to Medical Issues,Slow Progress due to Cognition Assessment Summary Pt noted increased groggy and more pain at this time. Pt still looking to go home when medically stable and with family to assist. Goals Grooming Goal Independent Dressing Goal Independent Toileting Goal Independent Bathing Goal Independent Toilet Transfer Goal Independent Shower Transfer Goal Independent Patient/Caregiver Education Goal Demonstrate Post-Op Precautions,Caregiver Independent Assisting Patient Days to Meet Goals 2 Frequency of Treatment Frequency Of Treatment Once a Day Treatment Plan OT Treatment Plan ADL Training,Functional Mobility,Patient/Family Education,Discharge Planning Discharge Recommendations OT Discharge Recommendations Home with Assistance Home Equipment Needs Shower chair, toilet paper aid Transportation Needs at Discharge Private Vehicle
--- NOTE | 2020-10-09 15:32 | PC.NURSE ---
Pain: Having pain control issues, pt reports increased pain with movement and having spasms. PA made aware this am. Dilaudid given per orders with vistaril. Just made it to the time the next dose could be administered. Med given. However 2 hours later she was still reporting pain which was 7/10 and still having spasms. She could not wait due to the pain and a dose of oxycodone was given per her request. Dr. Longoria was sent a message down in OR about pt's continued lack of pain control.He responded back, see new orders. Pt made aware of order changes.
--- NOTE | 2020-10-09 15:36 | PT.IPTN ---
Current Diagnoses Spondylolisthesis, lumbar region (10/07/20) Other spondylosis with radiculopathy, lumbar region (10/07/20) Spinal stenosis, lumbar region without neurogenic claudication (10/07/20) Surgery Performed Operation Date: 10/07/20 07:45 Actual Procedures p L3-4 TLIF(Not Applicable) - Shlomo Longoria MD Physical Therapy Treatment Note M2 PT-IP Current Condition Start: 10/07/20 14:49 Freq: NEEDED Status: Active Protocol: Document 10/07/20 16:28 DE (Rec: 10/07/20 17:03 DE [id number]) Physical Therapy Current Condition Current Condition Evaluation Date 10/07/20 Treatment Diagnosis L3-4 TLIF; Difficulty with walking Onset Date 10/07/20 Precautions Lumbar Precautions Log Roll,No Twisting,Limit Bending,Lifting Restriction of 10 lbs,Gait Belt above Incisional Area M3 PT-IP Subjective Start: 10/07/20 14:49 Freq: NEEDED Status: Active Protocol: Document 10/09/20 15:19 [place] (Rec: 10/09/20 16:46 KS [email or web address]) Subjective Physical Therapy Visit Type Type Treatment Note Visit Start Time 15:19 Visit Stop Time 15:36 Total Visit Minutes 17 Number of GALLEY WORKER Visits 1 Physical Therapy Visit Comments Patient Comments Pt is agreeable to do PT. Patient Goals To return home. Therapy Pain Assessment Pain When Pain Assessed At Rest Pain Present Pain Present Pain Reported Location Lower Back Scale Used not quantified Pain Behaviors Guarding,[place] Pain Management Techniques Modification of Treatment, Timing of Activity with Medications M4 PT-IP Mobility and Gait Start: 10/07/20 14:49 Freq: NEEDED Status: Active Protocol: Document 10/09/20 15:19 [place] (Rec: 10/09/20 16:46 KS [email or web address]) PT-Transfer Assessment Comments Mobility Comments Pt at first refusing therapy d /t high pain w/ movement, but agreed to LE strengthening exercises in chair. Pt completed 1x10 ankle pumps, quad sets, and glute sets. Pt c/o increased pain during ankle pumps and quad sets. Pt very fatigued and had trouble keeping her eyes open during exercises. Pt left in chair w/ all needs in reach. Gait Assessment Comments Gait Comments unable to assess, pt refused ambulation this treatment. Stair Climbing Assessment Comments Stair Climbing Comments Not assessed. M5 PT-IP Objective Assessments Start: 10/07/20 14:49 Freq: NEEDED Status: Active Protocol: Document 10/07/20 16:28 DE (Rec: 10/07/20 17:03 DE [id number]) Orientation Orientation/Cognition Level of Alertness Alert Orientation Name,Age,Birthday,Month,Date, Year,Day of Week,Place, Situation Language Function Ability No Deficits Noted Safety Awareness Understands Safety Issues Memory Description No Deficits Noted Gross Range of Motion Lower Extremity ROM Assessment Bilaterally Impaired Impairments Limited d/t back pain Strength Lower Extremity Strength Assessment Bilaterally Impaired Comments Strength Comments Limited d/t back pain. Coordination Assessment Gross Coordination Gross Coordination WNL Sensation Assessment Sensation Gross Sensation WNL Light Touch Intact Muscle Tone Muscle Tone WNL Yes M6 PT-IP Treatment Start: 10/07/20 14:49 Freq: NEEDED Status: Active Protocol: Document 10/09/20 15:19 [place] (Rec: 10/09/20 16:46 KS [email or web address]) Physical Therapy Treatment Exercises Exercises Ankle Pumps,Gluteal Sets,Quad Sets Education Education Provided Precautions,Safety Other Treatments Other Treatment Performed Wrote LE exercises on board for pt to complete in room, which she agreed to do. M7 PT-IP Assessment and Plan Start: 10/07/20 14:49 Freq: NEEDED Status: Active Protocol: Document 10/09/20 15:19 [place] (Rec: 10/09/20 16:46 KS [email or web address]) PT Summary Assessment and Plan Potential Rehabilitation Potential Good Status of Condition at Evaluation Evolving Summary Impairments Pain,ROM,Strength,Balance,Bed Mobility,Transfers,Gait, Activity Tolerance Progress Towards Goals Slow Progress due to Pain,Slow Progress due to Activity Tolerance Assessment Summary Pt refused ambulation or transfer this treatment d/t high reported pain. Pt completed 1x10 bilateral ankle pumps, quad sets, and glute sets to improve strengthening and blood flow, but c/o increased pain during ankle pumps and quad sets. Pt needed cues to keep eyes open/stay awake during treatment. D/c plan depending on progress, however if pt does not progress she may need SNF to improve tolerance for activity and functional mobility. Goals Bed Mobility Goal Independent Transfer Goal Independent Gait Goal Independent Gait Distance 100 Other Goals Pt will perform 3 steps with unilateral railing and 2 steps without railing. Days to Meet Goals 5 Frequency of Treatment Frequency Of Treatment Twice a Day Treatment Plan Physical Therapy Treatment Plan Bed Mobility Training,Transfer Training,Gait Training, Therapeutic Exercise,Balance Retraining,Post Op Education, Discharge Planning Other Recommendations and Next Treatment Amb distance Focus Stair climbing Recommendations To Nursing Amount of Assist Needed 1 Person Assist Discharge Recommendations PT Discharge Recommendations Home with Assistance,Home Health,SNF Rehab
--- NOTE | 2020-10-09 15:54 | CM.DPC ---
DCP Cont: Patient worked with P.T. today. She has had some pain issues which has affected her mobility. Went ahead and sent referral over to April at [facility] to review, since patient lives here in [place]. If patient were to need correction, she would be eligable starting tomorrow with Medicare guidelines. P: DCP to continue to follow. Will check in to see how patient is doing, and if she will need skilled rehab before going home. Nicole Rodriguez RN/Process Engineering Intern
[2020-10-09] MEDS: OXYCODONE ER 10 MG TAB PO (21:48)
[2020-10-09] MEDS: ROSUVASTATIN 10 MG TABLET 20 MG PO (21:49)
[2020-10-09] MEDS: MELATONIN 3 MG TABLET PO (21:49)
[2020-10-09] MEDS: SENNOSIDES 8.6 MG TABLET 17.2 MG PO (21:49)
[2020-10-09] MEDS: LOSARTAN 25 MG TABLET 50 MG PO (22:02)
--- NOTE | 2020-10-09 22:46 | PC.NURSE ---
upon initial assessment pt was candace drowsy, sating 100%. she refused pain meds. later on pt c/o pain when ambulating. pt had difficulty following precautions, she is twisting her back when she tries to get in bed.
[2020-10-10] MEDS: diazePAM 5 MG TABLET PO (00:30)
[2020-10-10] MEDS: HYDROMORPHONE 4 MG TABLET PO ×3 (00:30→11:24)
[2020-10-10 00:54] VITALS: BP 154/68; PULSE 87; RESP 18; TEMP 36.4; O2SAT 94
[2020-10-10 04:00] VITALS: BP 142/79; PULSE 90; RESP 18; TEMP 36.3; O2SAT 96
--- NOTE | 2020-10-10 04:49 | PC.NURSE ---
The patient did not have a restful night. She was frequently in pain, and restless. When she complains of pain, she is arching her back and twisting her body, trying to get into a comfortable position. She is reminded several times not to twist and to allow us to help her log roll.
[2020-10-10 08:00] VITALS: BP 160/70; PULSE 113; RESP 16; TEMP 36.7; O2SAT 92
[2020-10-10] MEDS: OXYCODONE ER 10 MG TAB PO (09:05)
[2020-10-10] MEDS: INSULIN GLARGINE 100 UNIT/ML 3ML PEN 54 UNIT SUBCUT (09:06)
[2020-10-10] MEDS: SODIUM CHLORIDE 0.9% FLUSH 10 ML IV (09:07)
[2020-10-10] MEDS: INSULIN ASPART 100 UNIT/ML INSULN PEN SUBCUT ×3 (09:07→13:05)
[2020-10-10 09:08] VITALS: BP 160/70; PULSE 113
[2020-10-10] MEDS: POTASSIUM CHLORIDE 20 MEQ TAB PO (09:08)
[2020-10-10] MEDS: carvediloL 3.125 MG TABLET 6.25 MG PO (09:08)
[2020-10-10] MEDS: DOCUSATE 100 MG CAPSULE PO (09:08)
[2020-10-10] MEDS: OLOPATADINE 0.1% OPHTH DROPS 5 ML 1 DROPS EYE-BOTH (09:09)
[2020-10-10] MEDS: FISH OIL 1,000 MG CAPSULE 1000 MG PO (09:09)
[2020-10-10] MEDS: CHLORTHALIDONE 25 MG TABLET PO (09:09)
--- NOTE | 2020-10-10 10:47 | CM.DPC ---
Addendum entered by Nicole Rodriguez R.N. 10/10/20 13:13: Patient had changed her mind about going to skilled rehab, and stated, she really doesn't want to, but she'll go. Patient continuing to have pain and decreased mobility. Stated, she's ok going across the street. Updated Lori at [facility]. Confirmed that they can accept patient today. Orders signed and completed by ortho PAC. PASSR completed. Kim, development assistant, is faxing over copies of prescriptions, PASSR, discharge summary to [facility]. Originals placed in packet, and confirmed pickle maker time of 1500. White board at main nurses station was updated. Original Note: DCP Cont: Checked in with patient, she was sitting up in her chair, continuing to have pain. Asked her if she would like to consider going to skilled rehab, for [facility] can accept her. Patient stated, she does not want to go to skilled rehab, but home. Stated, she is hoping to go home tomorrow. Confirmed that her will assist her when she goes home. P: DCP to continue to follow. Plan is for home when medically stable. Nicole Rodriguez RN/Powerbuilder
--- NOTE | 2020-10-10 10:52 | PT.IPTN ---
Current Diagnoses Spondylolisthesis, lumbar region (10/07/20) Other spondylosis with radiculopathy, lumbar region (10/07/20) Spinal stenosis, lumbar region without neurogenic claudication (10/07/20) Surgery Performed Operation Date: 10/07/20 07:45 Actual Procedures p L3-4 TLIF(Not Applicable) - Shlomo Longoria MD Physical Therapy Treatment Note M2 PT-IP Current Condition Start: 10/07/20 14:49 Freq: NEEDED Status: Discharge Protocol: Document 10/07/20 16:28 DE (Rec: 10/07/20 17:03 DE [id number]) Physical Therapy Current Condition Current Condition Evaluation Date 10/07/20 Treatment Diagnosis L3-4 TLIF; Difficulty with walking Onset Date 10/07/20 Precautions Lumbar Precautions Log Roll,No Twisting,Limit Bending,Lifting Restriction of 10 lbs,Gait Belt above Incisional Area M3 PT-IP Subjective Start: 10/07/20 14:49 Freq: NEEDED Status: Discharge Protocol: Document 10/10/20 15:13 [place] (Rec: 10/10/20 15:30 KS [id number]) Subjective Physical Therapy Visit Type Type Treatment Note Visit Start Time 10:29 Visit Stop Time 10:52 Total Visit Minutes 23 Number of TEACHER EDUCATION INSTRUCTOR Visits 3 Physical Therapy Visit Comments Patient Comments Pt is agreeable to do PT. Patient Goals To return home. Therapy Pain Assessment Pain When Pain Assessed At Rest Pain Present Pain Present Pain Reported M4 PT-IP Mobility and Gait Start: 10/07/20 14:49 Freq: NEEDED Status: Discharge Protocol: Document 10/10/20 15:13 [place] (Rec: 10/10/20 15:30 [place] [id number]) PT-Transfer Assessment Sit to and From Stand Sit to and from Stand Minimal Assistance,1 Person Assistance,Use of Upper Extremities Equipment Transfer Assistive Device Gait Belt,Front Wheeled Walker Orthotic/Prosthetic Devices or Brace: No Transfers Transfer Destination Chair Transfer Technique Stand Step Pivot Transfer Ability Level of Assist Contact Guard Assistance, Minimal Assistance,1 Person Assistance,Use of Upper Extremities Comments Mobility Comments Pt in chair upon arrival from therapy and requesting to use BSC. Min A for sit<>stand w/ FWW and stand step pivot to BSC. Pt c/o 7/10 pain w/ movement. Min A for sit<>Stand from BSC, pt then ambulated ~ 10 ft w/ FWW and CGA and cues for FWW management. Pt returned to bed, Min A x2 for sit<>sideyling and logroll into bed. Pt left in bed w/ all needs in reach. Gait Assessment Gait Gait Assistance Required: Contact Guard Assist Distance (Feet) 10 Able to Maintain Weight Bearing Status Yes During Gait Assistive Devices Assistive Device Front Wheeled Walker Orthotic/Prosthetic Devices or Brace: No Gait Deviations General Gait Pattern Antalgic,Decreased Stride Length,Decreased Feet Clearance Factors Limiting Gait Function Factors Limiting Gait Function Decreased Activity Tolerance, Decreased Strength,Limited Range of Motion,Pain,Poor Balance Comments Gait Comments Pt only able to toelrate ~10 ft w/ FWW before needing to sit d/t fatigue. CGA w/ cues for FWW management. Stair Climbing Assessment Comments Stair Climbing Comments Not assessed. PT-Balance Assessment Sitting Balance and Reactions Static Sitting Balance Ability Fair Dynamic Sitting Balance Ability Fair Standing Balance and Reactions Static Standing Balance Ability Fair Dynamic Standing Balance Ability Fair Device Used FWW M5 PT-IP Objective Assessments Start: 10/07/20 14:49 Freq: NEEDED Status: Discharge Protocol: Document 10/07/20 16:28 DE (Rec: 10/07/20 17:03 DE [id number]) Orientation Orientation/Cognition Level of Alertness Alert Orientation Name,Age,Birthday,Month,Date, Year,Day of Week,Place, Situation Language Function Ability No Deficits Noted Safety Awareness Understands Safety Issues Memory Description No Deficits Noted Gross Range of Motion Lower Extremity ROM Assessment Bilaterally Impaired Impairments Limited d/t back pain Strength Lower Extremity Strength Assessment Bilaterally Impaired Comments Strength Comments Limited d/t back pain. Coordination Assessment Gross Coordination Gross Coordination WNL Sensation Assessment Sensation Gross Sensation WNL Light Touch Intact Muscle Tone Muscle Tone WNL Yes M6 PT-IP Treatment Start: 10/07/20 14:49 Freq: NEEDED Status: Discharge Protocol: Document 10/10/20 15:13 [place] (Rec: 10/10/20 15:30 [place] [id number]) Physical Therapy Treatment Education Education Provided Precautions,Safety Other Treatments Other Treatment Performed Discussed SNF M7 PT-IP Assessment and Plan Start: 10/07/20 14:49 Freq: NEEDED Status: Discharge Protocol: Document 10/10/20 15:13 [place] (Rec: 10/10/20 15:30 [place] [id number]) PT Summary Assessment and Plan Potential Rehabilitation Potential Good Status of Condition at Evaluation Evolving Summary Impairments Pain,ROM,Strength,Balance,Bed Mobility,Transfers,Gait, Activity Tolerance Progress Towards Goals Slow Progress due to Pain,Slow Progress due to Activity Tolerance Assessment Summary Pt able to tolerate 10 ft ambulation w/ FWW and CGA w/ cues today. Min A for sit<> Stand, Min A x2 for sup<>sit and logroll to adhere to spinal precautions. Pt unable to perform own pericare and still needing assist w/ mobility. She will require SNF to improve strength and tolerance for activity. Goals Bed Mobility Goal Independent Transfer Goal Independent Gait Goal Independent Gait Distance 100 Other Goals Pt will perform 3 steps with unilateral railing and 2 steps without railing. Days to Meet Goals 5 Frequency of Treatment Frequency Of Treatment Twice a Day Treatment Plan Physical Therapy Treatment Plan Bed Mobility Training,Transfer Training,Gait Training, Therapeutic Exercise,Balance Retraining,Post Op Education, Discharge Planning Other Recommendations and Next Treatment Amb distance Focus Stair climbing Recommendations To Nursing Amount of Assist Needed 1 Person Assist Discharge Recommendations PT Discharge Recommendations Home with 21/06 Assist,Home Health,SNF Rehab Transportation Needs at Discharge Wheelchair/Cabulance
[2020-10-10] MEDS: ACETAMINOPHEN 325 MG TABLET 650 MG PO (11:24)
[2020-10-10] MEDS: hydrOXYzine pamoate 25 MG CAPSULE 50 MG PO (11:24)
[2020-10-10 12:00] VITALS: BP 100/63; PULSE 88; RESP 16; TEMP 36.5; O2SAT 99
--- NOTE | 2020-10-10 12:07 | OT.IP.TRT ---
Current Diagnoses Spondylolisthesis, lumbar region (10/07/20) Other spondylosis with radiculopathy, lumbar region (10/07/20) Spinal stenosis, lumbar region without neurogenic claudication (10/07/20) Surgery Performed Operation Date: 10/07/20 07:45 Actual Procedures p L3-4 TLIF(Not Applicable) - Shlomo Longoria MD Occupational Therapy Treatment Note M2 OT-IP Current Condition Start: 10/08/20 13:08 Freq: Status: Active Protocol: Document 10/08/20 09:35 [facility] (Rec: 10/08/20 13:33 [facility] [id number]) Occupational Therapy Current Condition Current Condition Evaluation Date 10/08/20 Treatment Diagnosis Spinal stenosis s/p L3-4 TLIF Diagnosis Onset Date 10/07/29 Post Operative Precautions Lumbar Precautions Log Roll,No Twisting,Limit Bending,Lifting Restriction of 10 lbs,Gait Belt above Incisional Area M3 OT- IP Subjective and Pain Start: 10/08/20 13:08 Freq: Status: Active Protocol: Document 10/10/20 12:09 [facility] (Rec: 10/10/20 12:15 [facility] [id number]) OT- Subjective Occupational Therapy Visit Type Type Treatment Note Visit Start Time 11:58 Visit Stop Time 12:07 Total Visit Minutes 9 Occupational Therapy Visit Comments Patient Comments Pt agreed to talk to OT regarding going home versus SNF. Patient/Caregiver Goals TO go home. OT Pain Assessment Pain When Pain Assessed At Rest Pain Present Pain Present Pain Reported M4 OT- IP ADL's Start: 10/08/20 13:08 Freq: Status: Active Protocol: Document 10/10/20 12:09 [facility] (Rec: 10/10/20 12:15 [facility] [id number]) OT [id number] Comments OT Self-Feeding Comments Not at meal time. OT ADL-Dressing General Eval Lower Body Dressing Ability Maximum Assistance Areas Needing Assistance Socks OT ADL-Toileting Comments OT Toileting Comments Pt not having to go at this time. OT ADL-Bathing Comments OT Bathing Comments NOt performed. M5 OT- IP IADL's Start: 10/08/20 13:08 Freq: Status: Active Protocol: Document 10/08/20 09:35 [facility] (Rec: 10/08/20 13:33 [facility] [id number]) OT-Instrumental Activities of Daily Living Home Safety Awareness Awareness of Need for Assistance at Home Good Awareness Ability to Problem Solve Emergency Able to Problem Solve Situations Medication Management Medication Management Comments Pt states takes her own. Money Management Money Management Comments Pt states does her own bills. Meal Preparation Meal Preparation Caregiver Provides Assist Container Packer Operator Container Packer Operator Caregiver Provides Assist M7 OT- IP Mobility and Balance Start: 10/08/20 13:08 Freq: Status: Active Protocol: Document 10/10/20 12:09 [facility] (Rec: 10/10/20 12:15 [facility] [id number]) OT-Transfer Assessment Comments Mobility Comments Pt in the recliner and not wanting to stand at this time as her lunch tray just came in . Pt agrees that bed mobility has been hard to do for her and feel could possibly sleep in her 's recliner at home if needed. In addition pt has not been able to do the steps yet as she has 5 steps total at home and questionable of railing and how steady there are per pt. M8 OT- IP Objective Assessments Start: 10/08/20 13:08 Freq: Status: Active Protocol: Document 10/08/20 09:35 [facility] (Rec: 10/08/20 13:33 [facility] [id number]) OT Gross Range of Motion Upper Extremity Range of Motion Assessment Within Functional Limits OT-Muscle Tone Assessment Muscle Tone WNL Yes M9 OT- IP Assessment and Plan Start: 10/08/20 13:08 Freq: Status: Active Protocol: Document 10/10/20 12:09 [facility] (Rec: 10/10/20 12:15 [facility] [id number]) OT Summary Assessment and Plan Potential Rehabilitation Potential Good Analytic Complexity at Evaluation Low Summary OT Impairments Pain,Functional Mobility, Grooming,Dressing,Toileting, Bathing,Toilet Transfers, Shower Transfers,Activity Tolerance Progress Towards Goals Slow Progress due to Medical Issues,Slow Progress due to Activity Tolerance,Slow Progress due to Cognition Assessment Summary Pt still groggy and even though wanting to go home does not feel that her family is capable to give her enough assist especially for toileting needs and steps. Pt now feels would be best to go to skilled rehab prior to going home. Goals Grooming Goal Independent Dressing Goal Independent Toileting Goal Independent Bathing Goal Independent Toilet Transfer Goal Independent Shower Transfer Goal Independent Patient/Caregiver Education Goal Demonstrate Post-Op Precautions,Caregiver Independent Assisting Patient Days to Meet Goals 10 Frequency of Treatment Frequency Of Treatment Once a Day Treatment Plan OT Treatment Plan ADL Training,Functional Cognition Training,Functional Mobility,Patient/Family Education,Discharge Planning Discharge Recommendations OT Discharge Recommendations SNF Rehab Home Equipment Needs defer to SNF Transportation Needs at Discharge Wheelchair/Cabulance
--- NOTE | 2020-10-10 12:48 | P.DS_ITS ---
History of Present Illness History of Present Illness Date Patient Seen: 10/10/20 Time Patient Seen: 12:49 Chief complaint: INPT Narrative: Please see HPI previously recorded in the chart. Discharge Providers Provider Date of admission: 10/07/20 06:17 Discharge Date: 10/10/20 Primary care physician: Faustino Montesinos MD Consults: 09/25/20 09:37 Consult to Respiratory Therapy Evaluate & Treat Comment: INPT 10/07, Untreated ELVIS Physician Instructions: Evaluate and treat 10/07/20 07:26 Consult to Respiratory Therapy Evaluate & Treat Comment: Physician Instructions: Evaluate and treat 10/07/20 12:58 Consult to Occupational Therapy Evaluate & Treat Comment: Physician Instructions: Evaluate and treat Consult to Physical Therapy Evaluate & Treat Comment: Physician Instructions: Evaluate and Treat Discharge provider: Judith Cameron PA-C Summary Hospital Course Discharge Diagnosis: s/p L3-4 TLIF Hospital Course: Kim is a 70 year old female with PMH of insulin dependent type 2 diabetes, angina, CAD, HTN, HLD, GARCIA, sarcoidosis, obesity with BMI of 44.8, asthma, and ELVIS who has been having chronic back pain and worsening lumbar radiculopathy. Patient failed multiple conservative managements with worsening pain weakness and numbness in her lower extremity. Patient has been having difficulty performing activity of daily living. After discussing risks benefits of treatment options, patient elected proceed with surgery. On 10/07/20 she was taken to the operating room where she underwent a L3-[address] Longoria which she tolerated without complications. POD#1 she had issues with pain control and was transitioned from PO Oxycodone 10mg Q3hrs to Oxycodone 20mg Q3hrs as well as 0.5mg IV Dilaudid Q2hrs. She continued to have insufficient pain control and was changed from Oxycodone 20mg Q3hrs to PO Dilaudid 4mg Q4hrs with Vistaril 50mg on POD#2. Late POD#2 she was changed again to Oxycodone ER 10mg BID, Dilaudid 4mg Q3hrs, and Valium 5mg Q6hrs which provided improved relief. She mobilized poorly with PT initially with some slow improvement by POD#3. She has been voiding appropriately and tolerating a diet. She has poor home support and would not do well in the home environment. She was discharged to SNF on POD#3. Status at Discharge Cognitive/behavioral status at discharge: oriented Functional status at discharge: uses cane/walker Overall status at discharge: patient is progressing back to baseline Exam Vital Signs (past 8 hours): - 10/10/20 08:00 10/10/20 09:08 10/10/20 12:00 Temperature 98.1 F 97.7 F Pulse Rate 113 H 113 H 88 Respiratory Rate 16 16 Blood Pressure 160/70 H 160/70 H 100/63 Pulse Oximetry 92 99 Oxygen Delivery Method Room Air Oxygen Flow Rate 0 Narrative Exam Narrative: 70 year old female resting in a chair. Alert and oriented in no acute distress. Dressing in place over lumbar spine is CDI. Neurovascularly intact in bilateral lower extremities. Calves are soft, nontender bilaterally. Discharge Assessment & Plan Assessment and Plan Assessment: s/p lumbar TLIF Plan of Treatment: Discharge to SNF Follow up as scheduled outpatient in 2 weeks Discharge Plan Discharge Plan Patient Disposition: SNF Transfer to: [facility] Consult as needed: Dental, Hearing, Mental health, Podiatry and Vision Discharge orders & Medications Prescriptions: New acetaminophen 325 mg Tablet 650 mg PO Q6HR PRN (Reason: Pain, Mild (1-3)) Qty: 40 RF: 0 docusate sodium [DOK] 100 mg Capsule 100 mg PO BID Qty: 30 RF: 0 hydromorphone 4 mg Tablet 4 mg PO Q3H PRN (Reason: Pain, Severe (7-10)) Qty: 40 RF: 0 diazepam 5 mg Tablet 5 mg PO Q6HR PRN (Reason: Muscle Spasm) Qty: 30 RF: 0 oxycodone [OxyContin] 10 mg Tablet,Oral Only,Ext.Rel.12 Hr 10 mg PO BID Qty: 40 RF: 0 Continued aspirin 81 mg Tablet,Delayed Release (Dr/Ec) 81 mg PO DAILY Qty: 0 RF: 0 flaxseed oil 1,000 mg Capsule 1,000 mg PO DAILY Qty: 0 RF: 0 benazepril 40 MG tablet 40 mg PO QDAY Qty: 0 RF: 0 omeprazole 20 MG capsule,delayed release(DR/EC) 20 mg PO DAILY PRN (Reason: GI Upset) Qty: 0 RF: 0 olopatadine [Patanol] 5 ML drops 1 drp OPHTH BID Qty: 0 RF: 0 melatonin 3 MG tablet 3 mg PO HS Qty: 0 RF: 0 omega 8-jfk-rrk-fish oil [Fish Oil] 1,000 mg (120 mg-180 mg) Capsule 1 cap PO DAILY Qty: 0 RF: 0 vitamin B complex [B Complex-Vitamin B12] 1 EACH tablet 1 tab PO QDAY Qty: 0 RF: 0 ketoconazole 2 % cream 1 miguel ángel Topical BID Qty: 0 RF: 0 loratadine [Claritin] 10 MG tablet 10 mg PO QDAYP PRN (Reason: Seasonal allergies) RF: 0 carvedilol 6.25 mg Tablet 6.25 mg PO QAM RF: 0 losartan 25 mg Tablet 50 mg PO BEDTIME RF: 0 nitroglycerin 0.4 mg Tablet, Sublingual 0.4 mg SUBLINGUAL Q5-15M PRN (Reason: Chest Pain) RF: 0 albuterol sulfate 90 mcg/actuation Hfa Aerosol Inhaler 2 puff INHALATION Q6H PRN (Reason: Wheezing) RF: 0 insulin aspart U-100 [Novolog Flexpen U-100 Insulin] 100 unit/mL (3 mL) Insulin Pen 5 - 7 unit SUBCUT TID RF: 0 rosuvastatin 20 mg Tablet 20 mg PO BEDTIME RF: 0 Lantus Solostar U-100 Insulin 100 unit/mL (3 mL) Insulin Pen 54 unit SUBCUT QAM RF: 0 potassium chloride 20 mEq Tablet Extended Release 20 meq PO BID RF: 0 dulaglutide 0.75 mg/0.5 mL Pen Injector 1.5 mg SUBCUT QWEEK RF: 0 sumatriptan succinate 50 MG tablet 50 mg PO SEE INSTRUCTIONS PRN (Reason: Migraines) RF: 0 chlorthalidone 25 mg Tablet 25 mg PO DAILY RF: 0 pioglitazone [Actos] 15 mg Tablet 15 mg PO DAILY RF: 0 fluticasone propionate 250 mcg/actuation Blister With Device 1 inh INHALATION BID PRN (Reason: Cough) RF: 0 metronidazole [MetroCream] 0.75 % cream 1 applic Topical SEE INSTRUCTIONS PRN (Reason: Rosacea) RF: 0 Follow up/Referrals: Faustino Montesinos MD [Primary Care Provider] - Discharge Health Status Precautions: [place] Diet/Activity/Treatments Diet: Diet as Tolerated Liquid consistency: Normal/Thin Food texture: Regular Activity: Use front wheel walker Cold/Heat Therapy: Ice as needed Skin/Wound/Dressing Care Report to your healthcare provider any signs of infection, such as:: chills, fever, night sweats, unusual drainage and unusual redness Dressing: May be changed if soiled. Special Rehabilitation Services Reason for rehabilitation: Post-operative therapy Rehab type: Physical therapy and Occupational therapy Restrictions to mobility: No bending, lifting, twisting Visit Report/Discharge Packet Instructions: How to Choose and Use a Walker, DI for Constipation, How to Prevent Falls, DI for Transforaminal Lumbar Interbody Fusion Discharge Data Primary Care Provider: Faustino Montesinos Discharges patient from system. Discharge Date/Time: 10/10/20 15:10 Quality VTE Deep Vein Thrombosis/Pulmonary Embolism Present on Admission: No
[2020-10-10 13:04] LABS: COVID19 -Nasal RAPID Negative (Negative)
--- NOTE | 2020-10-10 13:17 | CM.DPNOTE ---
Faxed to [facility] Summary, med list & RX orders for diazepam, hydromorphine & Oxycodone. DM
--- NOTE | 2020-10-10 15:09 | PC.NURSE ---
Patient left w/ all possessions via facility personnel.
--- NOTE | 2020-10-10 15:30 | PT-IP ANOTE ---
Attempted to see pt at 15:30, but pt was already d/c.
== END 2020-10-10 15:10 | DRG 454 ==
PROVIDERS: Admitting Provider Orthopaedic Surgery Orthopaedic Surgery of the Spine; PCP Internal Medicine; Referring Provider Orthopaedic Surgery Orthopaedic Surgery of the Spine; Visit Provider Orthopaedic Surgery Orthopaedic Surgery of the Spine
PROC: 0SG00AJ Fusion of Lumbar Vertebral Joint with Interbody Fusion Device, Posterior Approach, Anterior Column, Open Approach (ICD-10-PCS; principal; 2020-10-07 07:45)
DX: M48.062 Spinal stenosis, lumbar region with neurogenic claudication (principal); Z68.41 Body mass index [BMI] 40.0-44.9, adult; E66.9 Obesity, unspecified; M43.16 Spondylolisthesis, lumbar region; M48.061 Spinal stenosis, lumbar region without neurogenic claudication; M47.27 Other spondylosis with radiculopathy, lumbosacral region; K75.81 Nonalcoholic steatohepatitis (NASH); G47.33 Obstructive sleep apnea (adult) (pediatric); I10 Essential (primary) hypertension; E78.5 Hyperlipidemia, unspecified; E11.9 Type 2 diabetes mellitus without complications; D86.9 Sarcoidosis, unspecified; J45.909 Unspecified asthma, uncomplicated; G89.18 Other acute postprocedural pain; I25.10 Atherosclerotic heart disease of native coronary artery without angina pectoris; Z79.4 Long term (current) use of insulin; Z11.59 Encounter for screening for other viral diseases
CPT/HCPCS: 36592; 72100; 76000; 82962; 87635; 94660; 94760; 97110; 97116; 97161; 97166; 97530; 97535; C1776; A9270; C9290; J0131; J0330; J0690; J1100; J1170; J2250; J2405; J2704; J3010

== ENCOUNTER → 2020-11-21 11:30 | Outpatient (CLI) | payer MEDICARE, OTHER, SELFPAY ==
[2020-10-07 13:02] VITALS: BMI 44.7
--- NOTE | 2020-11-21 11:32 | DI.MG.S_ITS ---
BILATERAL DIGITAL SCREENING MAMMOGRAM 3D/2D WITH CAD: 11/21/2020 CLINICAL: Routine screening. Family history of breast cancer. Comparison is made to exams dated: 09/29/2019 mammogram, 05/18/2017 mammogram, and 05/20/2009 mammogram - [facility]. The tissue of both breasts is heterogeneously dense. This may lower the sensitivity of mammography. Current study was also evaluated with a Computer Aided Detection (CAD) system. There are benign calcifications in both breasts. No significant masses, calcifications, or other findings are seen in either breast. There has been no significant interval change. IMPRESSION: BENIGN There is no mammographic evidence of malignancy. A 1 year screening mammogram is recommended. This exam was interpreted at Station ID: [id number]. NOTE: For mammograms, a report in lay terms will be sent to the patient. Approximately 15% of breast malignancies will not be visualized mammographically. In the management of a palpable breast mass, a negative mammogram must not discourage biopsy of a clinically suspicious lesion. Electronically Signed By: Miles Bullock acr/acosta:11/21/2020 12:17:17 letter sent: Normal Exam ACR BI-RADS Category 2: Benign Finding(s) [id number]
== END ==
PROVIDERS: PCP Internal Medicine; Referring Provider Internal Medicine; Visit Provider Internal Medicine
DX: Z12.31 Encounter for screening mammogram for malignant neoplasm of breast (principal); Z80.3 Family history of malignant neoplasm of breast
CPT/HCPCS: 77063; 77067

== ENCOUNTER → 2020-12-25 14:24 | Outpatient (CLI) | payer MEDICARE, OTHER, SELFPAY ==
[2020-10-07 13:02] VITALS: BMI 44.7
[2020-12-25] MEDS: COVID-19 VACC #1, MRNA(MOD) 100 MCG/0.5 ML VIAL IM (14:29)
== END ==
PROVIDERS: PCP Internal Medicine; Visit Provider Internal Medicine
DX: Z23 Encounter for immunization (principal)
CPT/HCPCS: 0011A; 91301

== ENCOUNTER → 2021-01-22 13:44 | Outpatient (CLI) | payer MEDICARE, OTHER, SELFPAY ==
[2020-10-07 13:02] VITALS: BMI 44.7
[2021-01-22] MEDS: COVID-19 VACC #2, MRNA(MOD) 100 MCG/0.5 ML VIAL IM (13:49)
== END ==
PROVIDERS: PCP Internal Medicine; Visit Provider Internal Medicine
DX: Z23 Encounter for immunization (principal)
CPT/HCPCS: 0012A; 91301

== ENCOUNTER → 2021-02-26 09:23 | Outpatient (CLI) | payer MEDICARE, OTHER, SELFPAY ==
[2020-10-07 13:02] VITALS: BMI 44.7
[2021-02-26 10:30] LABS: Add Manual Diff / Slide Review NO; Basophils Absolute Auto 0 /uL (0-100); Basophils Percent Auto 0.5 % (0-2); Eosinophils Absolute Auto 200 /uL (0-450); Eosinophils Percent Auto 3.6 % (2-4); Hemoglobin 13.7 g/dL (12.0-16.0); Lymphocytes Absolute Auto 1200 /uL (1100-4500); Lymphocytes Percent Auto 21.6 % (25-40); Mean Corpuscular HGB Conc 32.7 % (30-36); Mean Corpuscular Hemoglobin 28.7 PG (26-34); Mean Corpuscular Volume 87.7 fL (80-100); Monocytes Absolute Auto 500 /uL (0-900); Monocytes Percent Auto 8.8 % (3-14); Neutrophils Absolute Auto 3500 /uL (1500-7000); Neutrophils Percent Auto 65.5 % (50-75); Platelet Count 158 X10^3/uL (150-400); Red Blood Cell Count 4.79 X10^6/uL (4.0-5.2); Red Cell Distribution Width 14.5 % (11.6-14.8); White Blood Cell Count 5.4 X10^3/uL (4.5-11.0)
[2021-02-26 11:00] LABS: BUN Creatinine Ratio 28.4 (6-22); Blood Urea Nitrogen 25 mg/dL (7-17); Calcium 10.4 mg/dL (8.4-10.2); Carbon Dioxide 28 mmol/L (22-32); Chloride 98 mmol/L (98-107); Cholesterol 101 mg/dL (140-199); Estimated Glomerular Filt Rate > 60.0 mL/min (>60); Glucose 144 mg/dL (80-110); HDL Cholesterol 45 mg/dL (40-60); HEMOLYSIS < 15 (0-50); LDL Cholesterol Calculated 30 mg/dL (<100); Potassium 3.7 mmol/L (3.4-5.1); Sodium 135 mmol/L (137-145); Triglycerides 128 mg/dL (35-150)
== END ==
PROVIDERS: PCP Internal Medicine; Referring Provider Internal Medicine Cardiovascular Disease; Visit Provider Internal Medicine Cardiovascular Disease
DX: E78.5 Hyperlipidemia, unspecified (principal); I25.10 Atherosclerotic heart disease of native coronary artery without angina pectoris
CPT/HCPCS: 36415; 80048; 80061; 85025

== ENCOUNTER 2021-07-28 11:15 | Outpatient (RCR) | payer MEDICARE, OTHER, SELFPAY ==
[2020-10-07 13:02] VITALS: BMI 44.7
--- NOTE | 2021-03-11 14:18 | PT.OIE ---
Current Diagnoses Spondylolisthesis, lumbar region (03/11/21) Other spondylosis with radiculopathy, lumbosacral region (03/11/21) Spinal stenosis, lumbar region without neurogenic claudication (03/11/21) Difficulty in walking, not elsewhere classified (03/11/21) Abnormal posture (03/11/21) Weakness (03/11/21) Past Medical History (Last Updated 09/25/20 @ 12:26 by Heide Umanzor, RN) Anasarca Arthritis Asthma Chest pain Chronic back pain Chronic renal insufficiency Corneal abrasion of both eyes Coronary artery disease Depression Diabetes Dry eye syndrome Hyperlipidemia Hypertension Hypokalemia Migraine GARCIA (nonalcoholic steatohepatitis) Osteoarthritis Reactive airway disease Sarcoidosis (~1996) Sciatica of right side Seasonal allergies Sleep apnea Spinal stenosis of lumbar region with radiculopathy Spondylolisthesis Vitamin B12 deficiency Past Surgical History (Last Updated 09/25/20 @ 09:06 by Heide Umanzor, ANTHONY) History of 2 sections History of bilateral cataract extraction (2015) History of colonoscopy (08/16/17) Hx of appendectomy Hx of cholecystectomy Hx of heart artery stent (02/24/19) Hx of laminectomy (11/23/16) Visit Care Team Role Provider Type Radha Smith MD Primary Care Provider Physician Specialty: Family Practice Address: [address] [place] [address], [address] Email: [email or web address] Shlomo Longoria MD Attending Provider Physician Referring Provider Specialty: Orthopedic Surgery Address: [address] [place] [address], [address] Email: [email or web address] [facility] Initial Evaluation PT-OP-A Visit Information Start: 03/10/21 16:52 Freq: Status: Active Protocol: Document 03/11/21 08:59 [facility] (Rec: 03/11/21 09:45 [facility] [id number]) Out-Patient Physical Therapy Visit Information Visit Information Visit Type Initial Evaluation Visit Note 12/08 Visit Start Time 09:05 Visit Stop Time 09:45 Total Visit Minutes 40 Visit Number 1 Number of FUEL CELL ASSEMBLER Visits 0 PT-OP-B Current Condition Start: 03/10/21 16:52 Freq: Status: Active Protocol: Document 03/11/21 08:59 [facility] (Rec: 03/11/21 09:45 [facility] [id number]) Current Condition History of Current Condition Onset Date TLIF 10/07/20 Current Complaints back pain History of Current Condition Pt had years and years of back pain which led her to surgery . She had a surgery by Dr. Longoria several years ago and it was compressing more so had L3-L4 TLIF 10/07/20. Pt went to rehab for 6 weeks and did HH PT and OT until January and feels like she lost all her progress. Pt was not having any issue getting up out of bed or a chair and now is. She had more consistant pain then but now it changes on a daily basis. Some days the entire area of the surgery hurts but last couple days, it has just been painful on L side. Pt reports prior to surgery, she had sciatica into RLE for several years, but now just feeling tight in BLEs. She tries to do stretches before gets out of bed, but it still bothers her. Pt has been doing HH exercises consistanly. She walked 4 miles before surgery but now if she gets 1/2 mile, she feels jessica d/t pain stopping her beofre that. Pt has been getting out for little walks (to mailbox, errands, etc). pt did not use cane prior to surgery. Pt reports 2 falls d/t dizziness when she first got home. Occ lists to L when dizzy when first get up. Prior Treatments and Tests SNF rehab & HH PT, PT prior to surgery for lymphadema (L arm )-pt does think she may have lymphadema in legs too though, and PT for scaitica ( did help) Treatment Goals Patient/Caregiver Goals wants to be able to get back out of bed again, be able to go out and walk more, be able to get rid of the cane. Personal Factors Other Personal Factors That May Effect 2 c-scetions, appy, Therapy/Recovery gallbladder removals, has a diastasis, CHF, lymphedema, liver disease, DM II, dizziness occ PT-OP-C Subjective Start: 03/10/21 16:52 Freq: Status: Active Protocol: Document 03/11/21 08:59 [facility] (Rec: 03/11/21 09:45 [facility] [id number]) Patient Questionnaires Oswestry Low Back Index Oswestry Score 28/50 OP-PT Pain Assessment Location Lower Back Pain Location Details L>R lumbar region Intensity 4 Scale Used 7/10 if does lots of walking Description Aching Description- Other stiff Frequency Constant Pain Aggravating Factors Standing,Walking,Bending, Lifting Other Pain Aggravating Factors transitions (sit>stand, roll over, sup>sit) Pain Alleviating Factors Cold,Heat,Sitting PT-OP-F Manual Assessment Start: 03/10/21 16:52 Freq: Status: Active Protocol: Document 03/11/21 08:59 [facility] (Rec: 03/11/21 09:45 [facility] [id number]) Manual Assessments Soft Tissue Assessment Soft Tissue Mobility Assessment L>R Glutes, ES & QL PT-OP-G Mobility & Gait Start: 03/10/21 16:52 Freq: Status: Active Protocol: Document 03/11/21 08:59 [facility] (Rec: 03/11/21 09:45 [facility] [id number]) OP Mobility Evaluation Bed Mobility Rolling more difficult R, very segmental in movement Supine to and from Sit log roll in/out, slow and segmental Transfers Sit to Stand hard push from chair w/inc time OP Gait Assessment Comments Gait Comments leaning to L and lat leaning B , very stiff and slow, dec psuh off PT-OP-J Posture/Palpation/Skin Start: 03/10/21 16:52 Freq: Status: Active Protocol: Document 03/11/21 08:59 [facility] (Rec: 03/11/21 09:45 [facility] [id number]) Posture Evaluation [facility] Postural Classification System Inocencia Postural Classifications Posterior/Posterior Lumbar Protective Mechanism Left AP 0 Lumbar Protective Mechanism Right AP 0 Lumbar Protective Mechanism Left PA 0 Lumbar Protective Mechanism Right PA 0 Comments Posture Comments side bends and rotates left PT-OP-K Range of Motion Start: 03/10/21 16:52 Freq: Status: Active Protocol: Document 03/11/21 08:59 [facility] (Rec: 03/11/21 09:45 [facility] [id number]) Lumbar Spine Range of Motion Lumbar Spine Active Degrees Flexion 30 Extension 18 Rotation Left 38 Rotation Right 12 Lateral Flexion Left 25 Lateral Flexion Right 14 PT-OP-L Special Tests Start: 03/10/21 16:52 Freq: Status: Active Protocol: Document 03/11/21 08:59 [facility] (Rec: 03/11/21 09:45 [facility] [id number]) Special Tests Lumbar Spine Special Tests Straight Leg Raise Test Results L 45 deg pain in buttock w/opp knee bent Comments R 71 HS stretch Slump Test Results positive L PT-OP-M Strength Start: 03/10/21 16:52 Freq: Status: Active Protocol: Document 03/11/21 08:59 [facility] (Rec: 03/11/21 09:45 [facility] [id number]) Hip Strength Hip Manual Muscle Testing Left Flexion (L2) 3 Fair Abduction 3- Fair- External Rotation 3+ Fair+ Internal Rotation 3+ Fair+ Right Flexion (L2) 3+ Fair+ Abduction 3 Fair External Rotation 3+ Fair+ Internal Rotation 3+ Fair+ Knee Strength Knee Manual Muscle Testing Left Flexion (S2) 4+ Good+ Extension (L3) 4 Good Right Flexion (S2) 4+ Good+ Extension (L3) 4 Good Ankle/Foot Strength Ankle and Foot Manual Muscle Testing Left Dorsiflexion (L4) 4 Good Plantarflexion (S1) 4 Good Comments PF tested seated B Right Dorsiflexion (L4) 4 Good Plantarflexion (S1) 4 Good PT-OP-T Assessment and Plan Start: 03/10/21 16:52 Freq: Status: Active Protocol: Document 03/11/21 08:59 [facility] (Rec: 03/11/21 09:45 [facility] [id number]) Physical Therapy Assessment Rehab Potential Rehabilitation Potential Good Evaluation Complexity Number of Personal Factors/Comorbidities 3 or More Number of Body Systems Impaired 4 or More Clinical Presentation at Evaluation Evolving Impairments Impairments Activity Tolerance,Balance, Functional Activities, Functional Mobility,Gait,Pain, Posture,ROM,Soft Tissue Mobility,Strength,Transfers Goals activity tolerance Short Term Goal (STG) Pt will be able to walk without cane in house and for short distancesw ith good mechancis. STG Duration 05/11/21 Life Skills Trainer Goal (LTG) Pt will be able to go for 1 mile walk without cane without more than 2 point pain inc. LTG Duration 06/10/21 Four Impairment RADHA 28/50 Short Term Goal (STG) Pt will imrpove score of RADHA to less than 20/50 to show improved functional ability. STG Duration 05/08/21 Mcfp Goal (LTG) Pt will imrpove score of RADHA to less than 10/50 to show improved functional ability. LTG Duration 06/10/21 Three Impairment transitions Short Term Goal (STG) Pt will be able to roll & do log roll for in/out of bed without difficulty or inc pain . STG Duration 05/11/21 Life Skills Trainer Goal (LTG) Pt wilb e able to do 5 sit to stands with UEs w/o inc pain or difficulty to show imrpoved ability for transitions & improved LE strength LTG Duration 06/10/21 Two Impairment strength Short Term Goal (STG) Pt will be indep w/HEP STG Duration 04/27/21 Mcfp Goal (LTG) pt will have at least 4+/5 LE strength B in all planes and 2 /5 LPM to show improved staiblity to allow pt to do typical ADLs without inc pain. LTG Duration 06/10/21 One Short Term Goal (STG) Pt will improve flex ROM to at least 50 deg in order to allow her to reach for objects w/greater ease. STG Duration 05/11/21 Assessment Summary Assessment Pt presents 5 months s/p L3-4 TLIF w/continued pain, weakness, and gait abnormalities. After d/c from hospital, pt went to SNF for 6 weeks and did HH for a couple months after, but completed that about 1 month ago. She is having increasing difficulty with transitions (bed mobility and sit<>stand) over the past month since she complteed HH PT. She has overall significant weakness, dec balance and gait and would bneeift from skilled PT to address her deficits. D/t her significant history of abdomenal surgeries, she has dec core activitiation and been told she has diastasis from , which will make rehab more difficult. Physical Therapy Plan Frequency and Duration Frequency of Treatment 2x/Week Duration of Treatment 3 months Plan of Care Start Date 03/11/21 Plan of Care End Date 06/10/21 Therapeutic Interventions Therapeutic Interventions Aquatic Therapy,Balance Training,Gait Training,Home Exercise Program,Joint Mobilizations,Manual Therapy, Neuromuscular Re-education, Patient/Caregiver Education, Self-Care/Home Management,Soft Tissue Mobilization,Taping, Therapeutic Activities, Therapeutic Exercises Modalities Cold Pack/Ice Massage,Electric Stimulation,Hot Packs, Ultrasound Next Visit Focus/Plan Next Note Type Treatment Note Next Visit Plan see what pt is oding for exercises, start core exercises, start manual soft tissue, recumbant stepper
--- NOTE | 2021-03-11 14:18 | PT.OPPOC ---
Physical, Occupational & Speech Therapy At [facility] Current Diagnoses Spondylolisthesis, lumbar region (03/11/21) Other spondylosis with radiculopathy, lumbosacral region (03/11/21) Spinal stenosis, lumbar region without neurogenic claudication (03/11/21) Difficulty in walking, not elsewhere classified (03/11/21) Abnormal posture (03/11/21) Weakness (03/11/21) Visit Care Team Role Provider Type Radha Smith MD Primary Care Provider Physician Specialty: Family Practice Address: [address] [place] [address], [place], [address] Email: [email or web address] Shlomo Longoria MD Attending Provider Physician Referring Provider Specialty: Orthopedic Surgery Address: [address] [place] [address], [address] Email: [email or web address] Plan Of Care PT-OP-T Assessment and Plan Start: 03/10/21 16:52 Freq: Status: Active Protocol: Document 03/11/21 08:59 [facility] (Rec: 03/11/21 09:45 [facility] [id number]) Physical Therapy Assessment Rehab Potential Rehabilitation Potential Good Evaluation Complexity Number of Personal Factors/Comorbidities 3 or More Number of Body Systems Impaired 4 or More Clinical Presentation at Evaluation Evolving Impairments Impairments Activity Tolerance,Balance, Functional Activities, Functional Mobility,Gait,Pain, Posture,ROM,Soft Tissue Mobility,Strength,Transfers Goals activity tolerance Short Term Goal (STG) Pt will be able to walk without cane in house and for short distancesw ith good mechancis. STG Duration 05/11/21 Halfway Goal (LTG) Pt will be able to go for 1 mile walk without cane without more than 2 point pain inc. LTG Duration 06/10/21 Four Impairment RADHA 28/50 Short Term Goal (STG) Pt will imrpove score of RADHA to less than 20/50 to show improved functional ability. STG Duration 05/08/21 Boning Room Worker Goal (LTG) Pt will imrpove score of RADHA to less than 10/50 to show improved functional ability. LTG Duration 06/10/21 Three Impairment transitions Short Term Goal (STG) Pt will be able to roll & do log roll for in/out of bed without difficulty or inc pain . STG Duration 05/11/21 Boning Room Worker Goal (LTG) Pt wilb e able to do 5 sit to stands with UEs w/o inc pain or difficulty to show imrpoved ability for transitions & improved LE strength LTG Duration 06/10/21 Two Impairment strength Short Term Goal (STG) Pt will be indep w/HEP STG Duration 04/27/21 Halfway Goal (LTG) pt will have at least 4+/5 LE strength B in all planes and 2 /5 LPM to show improved staiblity to allow pt to do typical ADLs without inc pain. LTG Duration 06/10/21 One Short Term Goal (STG) Pt will improve flex ROM to at least 50 deg in order to allow her to reach for objects w/greater ease. STG Duration 05/11/21 Assessment Summary Assessment Pt presents 5 months s/p L3-4 TLIF w/continued pain, weakness, and gait abnormalities. After d/c from hospital, pt went to SNF for 6 weeks and did HH for a couple months after, but completed that about 1 month ago. She is having increasing difficulty with transitions (bed mobility and sit<>stand) over the past month since she complteed HH PT. She has overall significant weakness, dec balance and gait and would bneeift from skilled PT to address her deficits. D/t her significant history of abdomenal surgeries, she has dec core activitiation and been told she has diastasis from MD, which will make rehab more difficult. Physical Therapy Plan Frequency and Duration Frequency of Treatment 2x/Week Duration of Treatment 3 months Plan of Care Start Date 03/11/21 Plan of Care End Date 06/10/21 Therapeutic Interventions Therapeutic Interventions Aquatic Therapy,Balance Training,Gait Training,Home Exercise Program,Joint Mobilizations,Manual Therapy, Neuromuscular Re-education, Patient/Caregiver Education, Self-Care/Home Management,Soft Tissue Mobilization,Taping, Therapeutic Activities, Therapeutic Exercises Modalities Cold Pack/Ice Massage,Electric Stimulation,Hot Packs, Ultrasound Next Visit Focus/Plan Next Note Type Treatment Note Next Visit Plan see what pt is oding for exercises, start core exercises, start manual soft tissue, recumbant stepper Plan of Care Dates Plan of Care Start Date 03/11/21 Plan of Care End Date 06/10/21 Electronically Signed by: Sarah Brito, PT 03/11/21 [id number] Please Sign and Return: I have reviewed this Plan of Care and certify that the skilled therapy services above are required to meet the patient?s needs. Physician Signature Date Printed Name and Credentials Clinical Instructor Signature Printed Name and Credentials
--- NOTE | 2021-03-13 15:17 | PT.OTN ---
Current Diagnoses Spondylolisthesis, lumbar region (03/13/21) Other spondylosis with radiculopathy, lumbosacral region (03/13/21) Spinal stenosis, lumbar region without neurogenic claudication (03/13/21) Difficulty in walking, not elsewhere classified (03/13/21) Abnormal posture (03/13/21) Weakness (03/13/21) Physical Therapy Treatment Note PT-OP-A Visit Information Start: 03/10/21 16:52 Freq: Status: Active Protocol: Document 03/13/21 14:25 [facility] (Rec: 03/13/21 15:16 [facility] [id number]) Out-Patient Physical Therapy Visit Information Visit Information Visit Type Treatment Note Visit Note 01/08 Visit Start Time 14:26 Visit Stop Time 15:11 Total Visit Minutes 45 Visit Number 2 Number of WET POUR SUPERVISOR Visits 0 PT-OP-B Current Condition Start: 03/10/21 16:52 Freq: Status: Active Protocol: Document 03/11/21 08:59 [facility] (Rec: 03/11/21 09:45 [facility] [id number]) Current Condition History of Current Condition Onset Date TLIF 10/07/20 Current Complaints back pain History of Current Condition Pt had years and years of back pain which led her to surgery . She had a surgery by Dr. Longoria several years ago and it was compressing more so had L3-L4 TLIF 10/07/20. Pt went to rehab for 6 weeks and did HH PT and OT until January and feels like she lost all her progress. Pt was not having any issue getting up out of bed or a chair and now is. She had more consistant pain then but now it changes on a daily basis. Some days the entire area of the surgery hurts but last couple days, it has just been painful on L side. Pt reports prior to surgery, she had sciatica into RLE for several years, but now just feeling tight in BLEs. She tries to do stretches before gets out of bed, but it still bothers her. Pt has been doing HH exercises consistanly. She walked 4 miles before surgery but now if she gets 1/2 mile, she feels jessica d/t pain stopping her beofre that. Pt has been getting out for little walks (to mailbox, errands, etc). pt did not use cane prior to surgery. Pt reports 2 falls d/t dizziness when she first got home. Occ lists to L when dizzy when first get up. Prior Treatments and Tests SNF rehab & HH PT, PT prior to surgery for lymphadema (L arm )-pt does think she may have lymphadema in legs too though, and PT for scaitica ( did help) Treatment Goals Patient/Caregiver Goals wants to be able to get back out of bed again, be able to go out and walk more, be able to get rid of the cane. Personal Factors Other Personal Factors That May Effect 2 c-scetions, appy, Therapy/Recovery gallbladder removals, has a diastasis, CHF, lymphedema, liver disease, DM II, dizziness occ PT-OP-C Subjective Start: 03/10/21 16:52 Freq: Status: Active Protocol: Document 03/13/21 14:25 [facility] (Rec: 03/13/21 15:16 [facility] [id number]) OP-PT Subjective Patient Comments Patient Comments Pt reprots L side of her back isn't letting go. PT-OP-F Manual Assessment Start: 03/10/21 16:52 Freq: Status: Active Protocol: Document 03/11/21 08:59 [facility] (Rec: 03/11/21 09:45 [facility] [id number]) Manual Assessments Soft Tissue Assessment Soft Tissue Mobility Assessment L>R Glutes, ES & QL PT-OP-G Mobility & Gait Start: 03/10/21 16:52 Freq: Status: Active Protocol: Document 03/11/21 08:59 [facility] (Rec: 03/11/21 09:45 [facility] [id number]) OP Mobility Evaluation Bed Mobility Rolling more difficult R, very segmental in movement Supine to and from Sit log roll in/out, slow and segmental Transfers Sit to Stand hard push from chair w/inc time OP Gait Assessment Comments Gait Comments leaning to L and lat leaning B , very stiff and slow, dec psuh off PT-OP-J Posture/Palpation/Skin Start: 03/10/21 16:52 Freq: Status: Active Protocol: Document 03/11/21 08:59 [facility] (Rec: 03/11/21 09:45 [facility] [id number]) Posture Evaluation Inocencia Postural Classification System Inocencia Postural Classifications Posterior/Posterior Lumbar Protective Mechanism Left AP 0 Lumbar Protective Mechanism Right AP 0 Lumbar Protective Mechanism Left PA 0 Lumbar Protective Mechanism Right PA 0 Comments Posture Comments side bends and rotates left PT-OP-K Range of Motion Start: 03/10/21 16:52 Freq: Status: Active Protocol: Document 03/11/21 08:59 [facility] (Rec: 03/11/21 09:45 [facility] [id number]) Lumbar Spine Range of Motion Lumbar Spine Active Degrees Flexion 30 Extension 18 Rotation Left 38 Rotation Right 12 Lateral Flexion Left 25 Lateral Flexion Right 14 PT-OP-L Special Tests Start: 03/10/21 16:52 Freq: Status: Active Protocol: Document 03/11/21 08:59 [facility] (Rec: 03/11/21 09:45 [facility] [id number]) Special Tests Lumbar Spine Special Tests Straight Leg Raise Test Results L 45 deg pain in buttock w/opp knee bent Comments R 71 HS stretch Slump Test Results positive L PT-OP-M Strength Start: 03/10/21 16:52 Freq: Status: Active Protocol: Document 03/11/21 08:59 [facility] (Rec: 03/11/21 09:45 [facility] [id number]) Hip Strength Hip Manual Muscle Testing Left Flexion (L2) 3 Fair Abduction 3- Fair- External Rotation 3+ Fair+ Internal Rotation 3+ Fair+ Right Flexion (L2) 3+ Fair+ Abduction 3 Fair External Rotation 3+ Fair+ Internal Rotation 3+ Fair+ Knee Strength Knee Manual Muscle Testing Left Flexion (S2) 4+ Good+ Extension (L3) 4 Good Right Flexion (S2) 4+ Good+ Extension (L3) 4 Good Ankle/Foot Strength Ankle and Foot Manual Muscle Testing Left Dorsiflexion (L4) 4 Good Plantarflexion (S1) 4 Good Comments PF tested seated B Right Dorsiflexion (L4) 4 Good Plantarflexion (S1) 4 Good PT-OP-Q Treatments Start: 03/10/21 16:52 Freq: Status: Active Protocol: Document 03/13/21 14:25 [facility] (Rec: 03/13/21 15:16 [facility] [id number]) Cardio Equipment Recumbent Elliptical (Biodex) Duration (Minutes) 5 Resistance 2 Seat Position 4 Therapeutic Exercises Supine Exercises Pelvic tilt Supine Exercise Name PPT w/max cueing Side bilateral Reps/Minutes 15 Standing Exercises heel raises Side bilateral Reps/Minutes 15 Comments focus on core & avoidign inc ext squats Standing Exercise Name attempted squats but painful so changed to sit to stand Side bilateral Reps/Minutes 8 hip ext Side bilateral Reps/Minutes 10 Comments focus on core & comfortable range hip abd Side bilateral Reps/Minutes 10 Comments focus on core & comfortable range marching Side bilateral Comments focus on core & comfortable range Manual Therapy Treatment Soft Tissue Mobilization lumbar Body Location scars, L ES & QL Mobilization Type Rolling,Strumming,Sustained Pressure Intensity/Depth Moderate Body Position Sidelying Comments L S/L Self-Care/Home Management Treatment Education Other Education importance of core activiation & working on posture, importance of staying in comfortable range PT-OP-T Assessment and Plan Start: 03/10/21 16:52 Freq: Status: Active Protocol: Document 03/13/21 14:25 [facility] (Rec: 03/13/21 15:16 [facility] [id number]) Physical Therapy Assessment Goals activity tolerance Short Term Goal (STG) Pt will be able to walk without cane in house and for short distancesw ith good mechancis. STG Duration 05/11/21 Grinder Machine Knife Setter Goal (LTG) Pt will be able to go for 1 mile walk without cane without more than 2 point pain inc. LTG Duration 06/10/21 Four Impairment RADHA 28/50 Short Term Goal (STG) Pt will imrpove score of RADHA to less than 20/50 to show improved functional ability. STG Duration 05/08/21 Jail Goal (LTG) Pt will imrpove score of RADHA to less than 10/50 to show improved functional ability. LTG Duration 06/10/21 Three Impairment transitions Short Term Goal (STG) Pt will be able to roll & do log roll for in/out of bed without difficulty or inc pain . STG Duration 05/11/21 Jail Goal (LTG) Pt wilb e able to do 5 sit to stands with UEs w/o inc pain or difficulty to show imrpoved ability for transitions & improved LE strength LTG Duration 06/10/21 Two Impairment strength Short Term Goal (STG) Pt will be indep w/HEP STG Duration 04/27/21 Grinder Machine Knife Setter Goal (LTG) pt will have at least 4+/5 LE strength B in all planes and 2 /5 LPM to show improved staiblity to allow pt to do typical ADLs without inc pain. LTG Duration 06/10/21 One Short Term Goal (STG) Pt will improve flex ROM to at least 50 deg in order to allow her to reach for objects w/greater ease. STG Duration 05/11/21 Assessment Summary Assessment Pt reqired max cueing for all exercises d/t difficulty activiating her core mm and keeping back neural and cueing to stay in comfortable ranges . D/t squats being painful, pt was redirected to sit to stands w/using arm sof cahir w /focus on fwd wt shift. Physical Therapy Plan Next Visit Focus/Plan Next Note Type Treatment Note Next Visit Plan cont to work manually, focus on core stability exercises
--- NOTE | 2021-03-17 16:02 | PT.OTN ---
Current Diagnoses Spondylolisthesis, lumbar region (03/17/21) Other spondylosis with radiculopathy, lumbosacral region (03/17/21) Spinal stenosis, lumbar region without neurogenic claudication (03/17/21) Difficulty in walking, not elsewhere classified (03/17/21) Abnormal posture (03/17/21) Weakness (03/17/21) Physical Therapy Treatment Note PT-OP-A Visit Information Start: 03/10/21 16:52 Freq: Status: Active Protocol: Document 03/17/21 15:19 [facility] (Rec: 03/17/21 16:02 [facility] [id number]) Out-Patient Physical Therapy Visit Information Visit Information Visit Type Treatment Note Visit Note 02/05 Visit Start Time 15:17 Visit Stop Time 15:59 Total Visit Minutes 42 Visit Number 3 Number of COMPOSITE TECHNICIAN Visits 0 PT-OP-B Current Condition Start: 03/10/21 16:52 Freq: Status: Active Protocol: Document 03/11/21 08:59 [facility] (Rec: 03/11/21 09:45 [facility] [id number]) Current Condition History of Current Condition Onset Date TLIF 10/07/20 Current Complaints back pain History of Current Condition Pt had years and years of back pain which led her to surgery . She had a surgery by Dr. Longoria several years ago and it was compressing more so had L3-L4 TLIF 10/07/20. Pt went to rehab for 6 weeks and did HH PT and OT until January and feels like she lost all her progress. Pt was not having any issue getting up out of bed or a chair and now is. She had more consistant pain then but now it changes on a daily basis. Some days the entire area of the surgery hurts but last couple days, it has just been painful on L side. Pt reports prior to surgery, she had sciatica into RLE for several years, but now just feeling tight in BLEs. She tries to do stretches before gets out of bed, but it still bothers her. Pt has been doing HH exercises consistanly. She walked 4 miles before surgery but now if she gets 1/2 mile, she feels jessica d/t pain stopping her beofre that. Pt has been getting out for little walks (to mailbox, errands, etc). pt did not use cane prior to surgery. Pt reports 2 falls d/t dizziness when she first got home. Occ lists to L when dizzy when first get up. Prior Treatments and Tests SNF rehab & HH PT, PT prior to surgery for lymphadema (L arm )-pt does think she may have lymphadema in legs too though, and PT for scaitica ( did help) Treatment Goals Patient/Caregiver Goals wants to be able to get back out of bed again, be able to go out and walk more, be able to get rid of the cane. Personal Factors Other Personal Factors That May Effect 2 c-scetions, appy, Therapy/Recovery gallbladder removals, has a diastasis, CHF, lymphedema, liver disease, DM II, dizziness occ PT-OP-C Subjective Start: 03/10/21 16:52 Freq: Status: Active Protocol: Document 03/17/21 15:19 [facility] (Rec: 03/17/21 16:02 [facility] [id number]) OP-PT Subjective Patient Comments Patient Comments Pt reports pain isn't too bad today, except when she bends over. She has been making a point to pull mm in when doing exercises. Pt reports being able to turn over in bed better after last session. PT-OP-F Manual Assessment Start: 03/10/21 16:52 Freq: Status: Active Protocol: Document 03/11/21 08:59 [facility] (Rec: 03/11/21 09:45 [facility] [id number]) Manual Assessments Soft Tissue Assessment Soft Tissue Mobility Assessment L>R Glutes, ES & QL PT-OP-G Mobility & Gait Start: 03/10/21 16:52 Freq: Status: Active Protocol: Document 03/11/21 08:59 [facility] (Rec: 03/11/21 09:45 [facility] [id number]) OP Mobility Evaluation Bed Mobility Rolling more difficult R, very segmental in movement Supine to and from Sit log roll in/out, slow and segmental Transfers Sit to Stand hard push from chair w/inc time OP Gait Assessment Comments Gait Comments leaning to L and lat leaning B , very stiff and slow, dec psuh off PT-OP-J Posture/Palpation/Skin Start: 03/10/21 16:52 Freq: Status: Active Protocol: Document 03/11/21 08:59 [facility] (Rec: 03/11/21 09:45 [facility] [id number]) Posture Evaluation [facility] Postural Classification System Inocencia Postural Classifications Posterior/Posterior Lumbar Protective Mechanism Left AP 0 Lumbar Protective Mechanism Right AP 0 Lumbar Protective Mechanism Left PA 0 Lumbar Protective Mechanism Right PA 0 Comments Posture Comments side bends and rotates left PT-OP-K Range of Motion Start: 03/10/21 16:52 Freq: Status: Active Protocol: Document 03/11/21 08:59 [facility] (Rec: 03/11/21 09:45 [facility] [id number]) Lumbar Spine Range of Motion Lumbar Spine Active Degrees Flexion 30 Extension 18 Rotation Left 38 Rotation Right 12 Lateral Flexion Left 25 Lateral Flexion Right 14 PT-OP-L Special Tests Start: 03/10/21 16:52 Freq: Status: Active Protocol: Document 03/11/21 08:59 [facility] (Rec: 03/11/21 09:45 [facility] [id number]) Special Tests Lumbar Spine Special Tests Straight Leg Raise Test Results L 45 deg pain in buttock w/opp knee bent Comments R 71 HS stretch Slump Test Results positive L PT-OP-M Strength Start: 03/10/21 16:52 Freq: Status: Active Protocol: Document 03/11/21 08:59 [facility] (Rec: 03/11/21 09:45 [facility] [id number]) Hip Strength Hip Manual Muscle Testing Left Flexion (L2) 3 Fair Abduction 3- Fair- External Rotation 3+ Fair+ Internal Rotation 3+ Fair+ Right Flexion (L2) 3+ Fair+ Abduction 3 Fair External Rotation 3+ Fair+ Internal Rotation 3+ Fair+ Knee Strength Knee Manual Muscle Testing Left Flexion (S2) 4+ Good+ Extension (L3) 4 Good Right Flexion (S2) 4+ Good+ Extension (L3) 4 Good Ankle/Foot Strength Ankle and Foot Manual Muscle Testing Left Dorsiflexion (L4) 4 Good Plantarflexion (S1) 4 Good Comments PF tested seated B Right Dorsiflexion (L4) 4 Good Plantarflexion (S1) 4 Good PT-OP-Q Treatments Start: 03/10/21 16:52 Freq: Status: Active Protocol: Document 03/17/21 15:19 [facility] (Rec: 03/17/21 16:02 [facility] [id number]) Cardio Equipment Recumbent Elliptical ([place]) Duration (Minutes) 8 Resistance 4 Seat Position 4 Gym Equipment Shuttle Recovery leg press Details w/pPT Resistance 50# Shuttle Recovery Platform Stable Reps/Time 2x15 Therapeutic Exercises Supine Exercises Pelvic tilt Supine Exercise Name PPT w/max cueing Side bilateral Reps/Minutes 5 sec x10 Comments focus on breathing Standing Exercises stretches Standing Exercise Name 1. mitra pose on rail 2. hip flexor B Side bilateral Reps/Minutes 30 sec ea heel raises Side bilateral Reps/Minutes 2x8 Comments focus on core & avoidign inc ext hip ext Side bilateral Reps/Minutes 10 Comments focus on core & comfortable range hip abd Side bilateral Reps/Minutes 10 Comments focus on core & comfortable range marching Side bilateral Reps/Minutes 10 Comments focus on core & comfortable range Manual Therapy Treatment Soft Tissue Mobilization lumbar Body Location scars, L ES & QL Mobilization Type Rolling,Strumming,Sustained Pressure Intensity/Depth Moderate Body Position Sidelying Comments L S/L PT-OP-T Assessment and Plan Start: 03/10/21 16:52 Freq: Status: Active Protocol: Document 03/17/21 15:19 [facility] (Rec: 03/17/21 16:02 [facility] [id number]) Physical Therapy Assessment Goals activity tolerance Short Term Goal (STG) Pt will be able to walk without cane in house and for short distancesw ith good mechancis. STG Duration 05/11/21 [facility] Goal (LTG) Pt will be able to go for 1 mile walk without cane without more than 2 point pain inc. LTG Duration 06/10/21 Four Impairment RADHA 28/50 Short Term Goal (STG) Pt will imrpove score of RADHA to less than 20/50 to show improved functional ability. STG Duration 05/08/21 [facility] Goal (LTG) Pt will imrpove score of RADHA to less than 10/50 to show improved functional ability. LTG Duration 06/10/21 Three Impairment transitions Short Term Goal (STG) Pt will be able to roll & do log roll for in/out of bed without difficulty or inc pain . STG Duration 05/11/21 Lead Military Analyst Goal (LTG) Pt wilb e able to do 5 sit to stands with UEs w/o inc pain or difficulty to show imrpoved ability for transitions & improved LE strength LTG Duration 06/10/21 Two Impairment strength Short Term Goal (STG) Pt will be indep w/HEP STG Duration 04/27/21 [facility] Goal (LTG) pt will have at least 4+/5 LE strength B in all planes and 2 /5 LPM to show improved staiblity to allow pt to do typical ADLs without inc pain. LTG Duration 06/10/21 One Short Term Goal (STG) Pt will improve flex ROM to at least 50 deg in order to allow her to reach for objects w/greater ease. STG Duration 05/11/21 Assessment Summary Assessment Pt required much less cueing with exercises today with improved neutral spine position during standing exercises and less cueing needed with tilt. Physical Therapy Plan Frequency and Duration Frequency of Treatment 2x/Week Duration of Treatment 3 months Plan of Care Start Date 03/11/21 Plan of Care End Date 06/10/21 Next Visit Focus/Plan Next Note Type Treatment Note Next Visit Plan cont to work manually, focus on core stability exercises
--- NOTE | 2021-03-19 08:16 | PT.OTN ---
Current Diagnoses Spondylolisthesis, lumbar region (03/19/21) Other spondylosis with radiculopathy, lumbosacral region (03/19/21) Spinal stenosis, lumbar region without neurogenic claudication (03/19/21) Difficulty in walking, not elsewhere classified (03/19/21) Abnormal posture (03/19/21) Weakness (03/19/21) Physical Therapy Treatment Note PT-OP-A Visit Information Start: 03/10/21 16:52 Freq: Status: Active Protocol: Document 03/19/21 07:58 [facility] (Rec: 03/19/21 08:16 [facility] [id number]) Out-Patient Physical Therapy Visit Information Visit Information Visit Type Treatment Note Visit Note 03/08 Visit Start Time 07:30 Visit Stop Time 08:11 Total Visit Minutes 41 Visit Number 4 Number of FOOD BROKER Visits 0 PT-OP-B Current Condition Start: 03/10/21 16:52 Freq: Status: Active Protocol: Document 03/11/21 08:59 [facility] (Rec: 03/11/21 09:45 [facility] [id number]) Current Condition History of Current Condition Onset Date TLIF 10/07/20 Current Complaints back pain History of Current Condition Pt had years and years of back pain which led her to surgery . She had a surgery by Dr. Longoria several years ago and it was compressing more so had L3-L4 TLIF 10/07/20. Pt went to rehab for 6 weeks and did HH PT and OT until January and feels like she lost all her progress. Pt was not having any issue getting up out of bed or a chair and now is. She had more consistant pain then but now it changes on a daily basis. Some days the entire area of the surgery hurts but last couple days, it has just been painful on L side. Pt reports prior to surgery, she had sciatica into RLE for several years, but now just feeling tight in BLEs. She tries to do stretches before gets out of bed, but it still bothers her. Pt has been doing HH exercises consistanly. She walked 4 miles before surgery but now if she gets 1/2 mile, she feels jessica d/t pain stopping her beofre that. Pt has been getting out for little walks (to mailbox, errands, etc). pt did not use cane prior to surgery. Pt reports 2 falls d/t dizziness when she first got home. Occ lists to L when dizzy when first get up. Prior Treatments and Tests SNF rehab & HH PT, PT prior to surgery for lymphadema (L arm )-pt does think she may have lymphadema in legs too though, and PT for scaitica ( did help) Treatment Goals Patient/Caregiver Goals wants to be able to get back out of bed again, be able to go out and walk more, be able to get rid of the cane. Personal Factors Other Personal Factors That May Effect 2 c-scetions, appy, Therapy/Recovery gallbladder removals, has a diastasis, CHF, lymphedema, liver disease, DM II, dizziness occ PT-OP-C Subjective Start: 03/10/21 16:52 Freq: Status: Active Protocol: Document 03/19/21 07:58 [facility] (Rec: 03/19/21 08:16 [facility] [id number]) OP-PT Subjective Patient Comments Patient Comments Pt reports she walked .28 miles yesterady which is an improvmeent for her. PT-OP-F Manual Assessment Start: 03/10/21 16:52 Freq: Status: Active Protocol: Document 03/11/21 08:59 [facility] (Rec: 03/11/21 09:45 [facility] [id number]) Manual Assessments Soft Tissue Assessment Soft Tissue Mobility Assessment L>R Glutes, ES & QL PT-OP-G Mobility & Gait Start: 03/10/21 16:52 Freq: Status: Active Protocol: Document 03/11/21 08:59 [facility] (Rec: 03/11/21 09:45 [facility] [id number]) OP Mobility Evaluation Bed Mobility Rolling more difficult R, very segmental in movement Supine to and from Sit log roll in/out, slow and segmental Transfers Sit to Stand hard push from chair w/inc time OP Gait Assessment Comments Gait Comments leaning to L and lat leaning B , very stiff and slow, dec psuh off PT-OP-J Posture/Palpation/Skin Start: 03/10/21 16:52 Freq: Status: Active Protocol: Document 03/11/21 08:59 [facility] (Rec: 03/11/21 09:45 [facility] [id number]) Posture Evaluation Inocencia Postural Classification System Inocencia Postural Classifications Posterior/Posterior Lumbar Protective Mechanism Left AP 0 Lumbar Protective Mechanism Right AP 0 Lumbar Protective Mechanism Left PA 0 Lumbar Protective Mechanism Right PA 0 Comments Posture Comments side bends and rotates left PT-OP-K Range of Motion Start: 03/10/21 16:52 Freq: Status: Active Protocol: Document 03/11/21 08:59 [facility] (Rec: 03/11/21 09:45 [facility] [id number]) Lumbar Spine Range of Motion Lumbar Spine Active Degrees Flexion 30 Extension 18 Rotation Left 38 Rotation Right 12 Lateral Flexion Left 25 Lateral Flexion Right 14 PT-OP-L Special Tests Start: 03/10/21 16:52 Freq: Status: Active Protocol: Document 03/11/21 08:59 [facility] (Rec: 03/11/21 09:45 [facility] [id number]) Special Tests Lumbar Spine Special Tests Straight Leg Raise Test Results L 45 deg pain in buttock w/opp knee bent Comments R 71 HS stretch Slump Test Results positive L PT-OP-M Strength Start: 03/10/21 16:52 Freq: Status: Active Protocol: Document 03/11/21 08:59 [facility] (Rec: 03/11/21 09:45 [facility] [id number]) Hip Strength Hip Manual Muscle Testing Left Flexion (L2) 3 Fair Abduction 3- Fair- External Rotation 3+ Fair+ Internal Rotation 3+ Fair+ Right Flexion (L2) 3+ Fair+ Abduction 3 Fair External Rotation 3+ Fair+ Internal Rotation 3+ Fair+ Knee Strength Knee Manual Muscle Testing Left Flexion (S2) 4+ Good+ Extension (L3) 4 Good Right Flexion (S2) 4+ Good+ Extension (L3) 4 Good Ankle/Foot Strength Ankle and Foot Manual Muscle Testing Left Dorsiflexion (L4) 4 Good Plantarflexion (S1) 4 Good Comments PF tested seated B Right Dorsiflexion (L4) 4 Good Plantarflexion (S1) 4 Good PT-OP-Q Treatments Start: 03/10/21 16:52 Freq: Status: Active Protocol: Document 03/19/21 07:58 [facility] (Rec: 03/19/21 08:16 [facility] [id number]) Cardio Equipment Recumbent Elliptical ([employer]) Duration (Minutes) 8 Resistance 4 Seat Position 4 Gym Equipment Shuttle Recovery leg press Details w/pPT Resistance 62#,50# Shuttle Recovery Platform Stable Reps/Time 2x15 Therapeutic Exercises Standing Exercises stretches Standing Exercise Name hip flexor Side bilateral Reps/Minutes 20 sec ea Comments unable to avoid back hurting Gait Training Gait Activity wt shifts Description in mirror focus on wt acceptance & no twist level Description in mirror working on no back ext Comments w/cane Neuro Re-Education Treatment Balance Activities Firm Details WBOS, NBOS, staggered stance B Equipment EC PT-OP-T Assessment and Plan Start: 03/10/21 16:52 Freq: Status: Active Protocol: Document 03/19/21 07:58 [facility] (Rec: 03/19/21 08:16 [facility] [id number]) Physical Therapy Assessment Goals activity tolerance Short Term Goal (STG) Pt will be able to walk without cane in house and for short distancesw ith good mechancis. STG Duration 05/11/21 Stunt Performer Goal (LTG) Pt will be able to go for 1 mile walk without cane without more than 2 point pain inc. LTG Duration 06/10/21 Four Impairment RADHA 28/50 Short Term Goal (STG) Pt will imrpove score of RADHA to less than 20/50 to show improved functional ability. STG Duration 05/08/21 [facility] Goal (LTG) Pt will imrpove score of RADHA to less than 10/50 to show improved functional ability. LTG Duration 06/10/21 Three Impairment transitions Short Term Goal (STG) Pt will be able to roll & do log roll for in/out of bed without difficulty or inc pain . STG Duration 05/11/21 Stunt Performer Goal (LTG) Pt wilb e able to do 5 sit to stands with UEs w/o inc pain or difficulty to show imrpoved ability for transitions & improved LE strength LTG Duration 06/10/21 Two Impairment strength Short Term Goal (STG) Pt will be indep w/HEP STG Duration 04/27/21 [facility] Goal (LTG) pt will have at least 4+/5 LE strength B in all planes and 2 /5 LPM to show improved staiblity to allow pt to do typical ADLs without inc pain. LTG Duration 06/10/21 One Short Term Goal (STG) Pt will improve flex ROM to at least 50 deg in order to allow her to reach for objects w/greater ease. STG Duration 05/11/21 Assessment Summary Assessment Pt did well with balance today but was challenged by EC activities. She did better with maintaining neutral spine w/wt shift when cued and use of mirror Physical Therapy Plan Frequency and Duration Frequency of Treatment 2x/Week Duration of Treatment 3 months Plan of Care Start Date 03/11/21 Plan of Care End Date 06/10/21 Next Visit Focus/Plan Next Note Type Treatment Note Next Visit Plan cont to work manually, focus on core stability exercises, work on balance
--- NOTE | 2021-03-26 17:36 | PT.OTN ---
Current Diagnoses Spondylolisthesis, lumbar region (03/26/21) Other spondylosis with radiculopathy, lumbosacral region (03/26/21) Spinal stenosis, lumbar region without neurogenic claudication (03/26/21) Difficulty in walking, not elsewhere classified (03/26/21) Abnormal posture (03/26/21) Weakness (03/26/21) Physical Therapy Treatment Note PT-OP-A Visit Information Start: 03/10/21 16:52 Freq: Status: Active Protocol: Document 03/26/21 16:48 [facility] (Rec: 03/26/21 17:36 [facility] [id number]) Out-Patient Physical Therapy Visit Information Visit Information Visit Type Treatment Note Visit Start Time 16:45 Visit Stop Time 17:30 Total Visit Minutes 45 Visit Number 5 Number of SHEARING MACHINE OPERATOR Visits 1 Precautions Precautions Abdominal surgeries: appendectomy, cholecystectomy Lumbar surgery PT-OP-B Current Condition Start: 03/10/21 16:52 Freq: Status: Active Protocol: Document 03/11/21 08:59 [facility] (Rec: 03/11/21 09:45 [facility] [id number]) Current Condition History of Current Condition Onset Date TLIF 10/07/20 Current Complaints back pain History of Current Condition Pt had years and years of back pain which led her to surgery . She had a surgery by Dr. Longoria several years ago and it was compressing more so had L3-L4 TLIF 10/07/20. Pt went to rehab for 6 weeks and did HH PT and OT until January and feels like she lost all her progress. Pt was not having any issue getting up out of bed or a chair and now is. She had more consistant pain then but now it changes on a daily basis. Some days the entire area of the surgery hurts but last couple days, it has just been painful on L side. Pt reports prior to surgery, she had sciatica into RLE for several years, but now just feeling tight in BLEs. She tries to do stretches before gets out of bed, but it still bothers her. Pt has been doing HH exercises consistanly. She walked 4 miles before surgery but now if she gets 1/2 mile, she feels jessica d/t pain stopping her beofre that. Pt has been getting out for little walks (to mailbox, errands, etc). pt did not use cane prior to surgery. Pt reports 2 falls d/t dizziness when she first got home. Occ lists to L when dizzy when first get up. Prior Treatments and Tests SNF rehab & HH PT, PT prior to surgery for lymphadema (L arm )-pt does think she may have lymphadema in legs too though, and PT for scaitica ( did help) Treatment Goals Patient/Caregiver Goals wants to be able to get back out of bed again, be able to go out and walk more, be able to get rid of the cane. Personal Factors Other Personal Factors That May Effect 2 c-scetions, appy, Therapy/Recovery gallbladder removals, has a diastasis, CHF, lymphedema, liver disease, DM II, dizziness occ PT-OP-C Subjective Start: 03/10/21 16:52 Freq: Status: Active Protocol: Document 03/26/21 16:48 [facility] (Rec: 03/26/21 17:36 [facility] [id number]) OP-PT Subjective Patient Comments Patient Comments Pt's back feels good unless she is changing from sit<> stand or laying down and sitting up. 1.24 mi yesterday and .55 today. PT-OP-F Manual Assessment Start: 03/10/21 16:52 Freq: Status: Active Protocol: Document 03/11/21 08:59 [facility] (Rec: 03/11/21 09:45 [facility] [id number]) Manual Assessments Soft Tissue Assessment Soft Tissue Mobility Assessment L>R Glutes, ES & QL PT-OP-G Mobility & Gait Start: 03/10/21 16:52 Freq: Status: Active Protocol: Document 03/11/21 08:59 [facility] (Rec: 03/11/21 09:45 [facility] [id number]) OP Mobility Evaluation Bed Mobility Rolling more difficult R, very segmental in movement Supine to and from Sit log roll in/out, slow and segmental Transfers Sit to Stand hard push from chair w/inc time OP Gait Assessment Comments Gait Comments leaning to L and lat leaning B , very stiff and slow, dec psuh off PT-OP-J Posture/Palpation/Skin Start: 03/10/21 16:52 Freq: Status: Active Protocol: Document 03/11/21 08:59 [facility] (Rec: 03/11/21 09:45 [facility] [id number]) Posture Evaluation [facility] Postural Classification System Inocencia Postural Classifications Posterior/Posterior Lumbar Protective Mechanism Left AP 0 Lumbar Protective Mechanism Right AP 0 Lumbar Protective Mechanism Left PA 0 Lumbar Protective Mechanism Right PA 0 Comments Posture Comments side bends and rotates left PT-OP-K Range of Motion Start: 03/10/21 16:52 Freq: Status: Active Protocol: Document 03/11/21 08:59 [facility] (Rec: 03/11/21 09:45 [facility] [id number]) Lumbar Spine Range of Motion Lumbar Spine Active Degrees Flexion 30 Extension 18 Rotation Left 38 Rotation Right 12 Lateral Flexion Left 25 Lateral Flexion Right 14 PT-OP-L Special Tests Start: 03/10/21 16:52 Freq: Status: Active Protocol: Document 03/11/21 08:59 [facility] (Rec: 03/11/21 09:45 [facility] [id number]) Special Tests Lumbar Spine Special Tests Straight Leg Raise Test Results L 45 deg pain in buttock w/opp knee bent Comments R 71 HS stretch Slump Test Results positive L PT-OP-M Strength Start: 03/10/21 16:52 Freq: Status: Active Protocol: Document 03/11/21 08:59 [facility] (Rec: 03/11/21 09:45 [facility] [id number]) Hip Strength Hip Manual Muscle Testing Left Flexion (L2) 3 Fair Abduction 3- Fair- External Rotation 3+ Fair+ Internal Rotation 3+ Fair+ Right Flexion (L2) 3+ Fair+ Abduction 3 Fair External Rotation 3+ Fair+ Internal Rotation 3+ Fair+ Knee Strength Knee Manual Muscle Testing Left Flexion (S2) 4+ Good+ Extension (L3) 4 Good Right Flexion (S2) 4+ Good+ Extension (L3) 4 Good Ankle/Foot Strength Ankle and Foot Manual Muscle Testing Left Dorsiflexion (L4) 4 Good Plantarflexion (S1) 4 Good Comments PF tested seated B Right Dorsiflexion (L4) 4 Good Plantarflexion (S1) 4 Good PT-OP-Q Treatments Start: 03/10/21 16:52 Freq: Status: Active Protocol: Document 03/26/21 16:48 [facility] (Rec: 03/26/21 17:36 [facility] [id number]) Cardio Equipment Recumbent Elliptical ([employer]) Duration (Minutes) 8 Resistance 4 Seat Position 4 Therapeutic Exercises Supine Exercises Piriformis Stretch Side bilateral Reps/Minutes 30 sec ea Pelvic tilt Supine Exercise Name PPT w/max cueing Side bilateral Reps/Minutes 5 sec x10 Comments focus on breathing Sidelying Exercises Hip ABD Side bilateral Reps/Minutes x10 Clamshells Side bilateral Reps/Minutes x10 Manual Therapy Treatment Soft Tissue Mobilization lumbar Body Location scars, L ES & QL Mobilization Type Rolling,Strumming,Sustained Pressure Intensity/Depth Moderate Body Position Sidelying Comments L S/L calf Body Location iram calf/ HS Mobilization Type Sustained Pressure,Trigger Point Release Intensity/Depth Moderate Body Position Supine Comments while pt in HS using belt Neuro Re-Education Treatment Balance Activities Firm Details WBOS, NBOS, staggered stance B Equipment EC PT-OP-T Assessment and Plan Start: 03/10/21 16:52 Freq: Status: Active Protocol: Document 03/26/21 16:48 [facility] (Rec: 03/26/21 17:36 [facility] [id number]) Physical Therapy Assessment Goals activity tolerance Short Term Goal (STG) Pt will be able to walk without cane in house and for short distancesw ith good mechancis. STG Duration 05/11/21 Molder Labels Goal (LTG) Pt will be able to go for 1 mile walk without cane without more than 2 point pain inc. LTG Duration 06/10/21 Four Impairment RADHA 28/50 Short Term Goal (STG) Pt will imrpove score of RADHA to less than 20/50 to show improved functional ability. STG Duration 05/08/21 Molder Labels Goal (LTG) Pt will imrpove score of RADHA to less than 10/50 to show improved functional ability. LTG Duration 06/10/21 Three Impairment transitions Short Term Goal (STG) Pt will be able to roll & do log roll for in/out of bed without difficulty or inc pain . STG Duration 05/11/21 Long-Term Goal (LTG) Pt wilb e able to do 5 sit to stands with UEs w/o inc pain or difficulty to show imrpoved ability for transitions & improved LE strength LTG Duration 06/10/21 Two Impairment strength Short Term Goal (STG) Pt will be indep w/HEP STG Duration 04/27/21 Molder Labels Goal (LTG) pt will have at least 4+/5 LE strength B in all planes and 2 /5 LPM to show improved staiblity to allow pt to do typical ADLs without inc pain. LTG Duration 06/10/21 One Short Term Goal (STG) Pt will improve flex ROM to at least 50 deg in order to allow her to reach for objects w/greater ease. STG Duration 05/11/21 Assessment Summary Assessment Pt did well with EC balance work today. She needed minor manual cues for keeping hips neutral during staggered stance and to focus on her core to keep her stable. Pt complained that she has R shd pain when stretching with strap at home. Reviewed supine HS stretch and noticed pt elevates R shd, once corrected pt had no pain. Physical Therapy Plan Frequency and Duration Frequency of Treatment 2x/Week Duration of Treatment 3 months Plan of Care Start Date 03/11/21 Plan of Care End Date 06/10/21 Therapeutic Interventions Therapeutic Interventions Aquatic Therapy,Balance Training,Gait Training,Home Exercise Program,Joint Mobilizations,Manual Therapy, Neuromuscular Re-education, Patient/Caregiver Education, Self-Care/Home Management,Soft Tissue Mobilization,Taping, Therapeutic Activities, Therapeutic Exercises Modalities Cold Pack/Ice Massage,Electric Stimulation,Hot Packs, Ultrasound Next Visit Focus/Plan Next Note Type Treatment Note Next Visit Plan cont to work manually, focus on core stability exercises, work on balance
--- NOTE | 2021-03-28 13:46 | PT.OTN ---
Current Diagnoses Spondylolisthesis, lumbar region (03/28/21) Other spondylosis with radiculopathy, lumbosacral region (03/28/21) Spinal stenosis, lumbar region without neurogenic claudication (03/28/21) Difficulty in walking, not elsewhere classified (03/28/21) Abnormal posture (03/28/21) Weakness (03/28/21) Physical Therapy Treatment Note PT-OP-A Visit Information Start: 03/10/21 16:52 Freq: Status: Active Protocol: Document 03/28/21 13:02 SP (Rec: 03/28/21 15:19 SP [id number]) Out-Patient Physical Therapy Visit Information Visit Information Visit Type Treatment Note Visit Start Time 13:02 Visit Stop Time 13:46 Total Visit Minutes 44 Visit Number 6 Number of [employer] [facility] WORKER Visits 2 Precautions Precautions Abdominal surgeries: appendectomy, cholecystectomy Lumbar surgery PT-OP-B Current Condition Start: 03/10/21 16:52 Freq: Status: Active Protocol: Document 03/11/21 08:59 [facility] (Rec: 03/11/21 09:45 [facility] [id number]) Current Condition History of Current Condition Onset Date TLIF 10/07/20 Current Complaints back pain History of Current Condition Pt had years and years of back pain which led her to surgery . She had a surgery by Dr. Longoria several years ago and it was compressing more so had L3-L4 TLIF 10/07/20. Pt went to rehab for 6 weeks and did HH PT and OT until January and feels like she lost all her progress. Pt was not having any issue getting up out of bed or a chair and now is. She had more consistant pain then but now it changes on a daily basis. Some days the entire area of the surgery hurts but last couple days, it has just been painful on L side. Pt reports prior to surgery, she had sciatica into RLE for several years, but now just feeling tight in BLEs. She tries to do stretches before gets out of bed, but it still bothers her. Pt has been doing HH exercises consistanly. She walked 4 miles before surgery but now if she gets 1/2 mile, she feels jessica d/t pain stopping her beofre that. Pt has been getting out for little walks (to mailbox, errands, etc). pt did not use cane prior to surgery. Pt reports 2 falls d/t dizziness when she first got home. Occ lists to L when dizzy when first get up. Prior Treatments and Tests SNF rehab & HH PT, PT prior to surgery for lymphadema (L arm )-pt does think she may have lymphadema in legs too though, and PT for scaitica ( did help) Treatment Goals Patient/Caregiver Goals wants to be able to get back out of bed again, be able to go out and walk more, be able to get rid of the cane. Personal Factors Other Personal Factors That May Effect 2 c-scetions, appy, Therapy/Recovery gallbladder removals, has a diastasis, CHF, lymphedema, liver disease, DM II, dizziness occ PT-OP-C Subjective Start: 03/10/21 16:52 Freq: Status: Active Protocol: Document 03/28/21 13:02 SP (Rec: 03/28/21 15:19 SP [id number]) OP-PT Subjective Patient Comments Patient Comments Pt stated was pretty tired after last tx. Wants to review new addition to clamshell adjusted last tx. Pt states compliant with HEP. PT-OP-F Manual Assessment Start: 03/10/21 16:52 Freq: Status: Active Protocol: Document 03/11/21 08:59 [facility] (Rec: 03/11/21 09:45 [facility] [id number]) Manual Assessments Soft Tissue Assessment Soft Tissue Mobility Assessment L>R Glutes, ES & QL PT-OP-G Mobility & Gait Start: 03/10/21 16:52 Freq: Status: Active Protocol: Document 03/11/21 08:59 LR (Rec: 03/11/21 09:45 [facility] [id number]) OP Mobility Evaluation Bed Mobility Rolling more difficult R, very segmental in movement Supine to and from Sit log roll in/out, slow and segmental Transfers Sit to Stand hard push from chair w/inc time OP Gait Assessment Comments Gait Comments leaning to L and lat leaning B , very stiff and slow, dec psuh off PT-OP-J Posture/Palpation/Skin Start: 03/10/21 16:52 Freq: Status: Active Protocol: Document 03/11/21 08:59 [facility] (Rec: 03/11/21 09:45 [facility] [id number]) Posture Evaluation Inocencia Postural Classification System Inocencia Postural Classifications Posterior/Posterior Lumbar Protective Mechanism Left AP 0 Lumbar Protective Mechanism Right AP 0 Lumbar Protective Mechanism Left PA 0 Lumbar Protective Mechanism Right PA 0 Comments Posture Comments side bends and rotates left PT-OP-K Range of Motion Start: 03/10/21 16:52 Freq: Status: Active Protocol: Document 03/11/21 08:59 [facility] (Rec: 03/11/21 09:45 [facility] [id number]) Lumbar Spine Range of Motion Lumbar Spine Active Degrees Flexion 30 Extension 18 Rotation Left 38 Rotation Right 12 Lateral Flexion Left 25 Lateral Flexion Right 14 PT-OP-L Special Tests Start: 03/10/21 16:52 Freq: Status: Active Protocol: Document 03/11/21 08:59 [facility] (Rec: 03/11/21 09:45 [facility] [id number]) Special Tests Lumbar Spine Special Tests Straight Leg Raise Test Results L 45 deg pain in buttock w/opp knee bent Comments R 71 HS stretch Slump Test Results positive L PT-OP-M Strength Start: 03/10/21 16:52 Freq: Status: Active Protocol: Document 03/11/21 08:59 [facility] (Rec: 03/11/21 09:45 [facility] [id number]) Hip Strength Hip Manual Muscle Testing Left Flexion (L2) 3 Fair Abduction 3- Fair- External Rotation 3+ Fair+ Internal Rotation 3+ Fair+ Right Flexion (L2) 3+ Fair+ Abduction 3 Fair External Rotation 3+ Fair+ Internal Rotation 3+ Fair+ Knee Strength Knee Manual Muscle Testing Left Flexion (S2) 4+ Good+ Extension (L3) 4 Good Right Flexion (S2) 4+ Good+ Extension (L3) 4 Good Ankle/Foot Strength Ankle and Foot Manual Muscle Testing Left Dorsiflexion (L4) 4 Good Plantarflexion (S1) 4 Good Comments PF tested seated B Right Dorsiflexion (L4) 4 Good Plantarflexion (S1) 4 Good PT-OP-Q Treatments Start: 03/10/21 16:52 Freq: Status: Active Protocol: Document 03/28/21 13:02 SP (Rec: 03/28/21 15:19 SP [id number]) Cardio Equipment Recumbent Elliptical ([place]) Duration (Minutes) 8 Resistance 4 Seat Position 4 Other RPM 35-45, total steps 532 , METs 2.72 Therapeutic Exercises Supine Exercises Piriformis Stretch Side bilateral Equipment Used towel assist Reps/Minutes 30 sec ea Comments good stretch response supine ER Side bilateral Reps/Minutes 30 each LE Pelvic tilt Supine Exercise Name PPT w/max cueing Side bilateral Reps/Minutes 10 x10 Comments focus on breathing and count out loud Sidelying Exercises Hip ABD Side bilateral Reps/Minutes 2x10 Comments cued TA facilitation for trunk stability during ROM Clamshells Side bilateral Reps/Minutes 2x10 Comments cued TA facilitation for trunk stability during ROM Standing Exercises stretches Standing Exercise Name hip flexor Side bilateral Reps/Minutes 20 sec ea Comments cued PPT and able to perform heel raises Side bilateral Reps/Minutes 2x10 Comments focus on core & avoidign inc ext hip ext Side bilateral Reps/Minutes 12 Comments focus on core & comfortable range, knee/ hip ext hip abd Side bilateral Reps/Minutes 12 Comments focus on core & comfortable range, knee/ hip ext marching Side bilateral Reps/Minutes 15 Comments focus on core & comfortable range Other Exercises self racquetball STMs Other Exercise Name gluts for self application at home today Equipment Used at wall Reps/Minutes 30 sec Comments not significant relief but states has done in past with benefits. PT-OP-T Assessment and Plan Start: 03/10/21 16:52 Freq: Status: Active Protocol: Document 03/28/21 13:02 SP (Rec: 03/28/21 15:19 SP [id number]) Physical Therapy Assessment Goals activity tolerance Short Term Goal (STG) Pt will be able to walk without cane in house and for short distancesw ith good mechancis. STG Duration 05/11/21 Group Home Goal (LTG) Pt will be able to go for 1 mile walk without cane without more than 2 point pain inc. LTG Duration 06/10/21 Four Impairment RADHA 28/50 Short Term Goal (STG) Pt will imrpove score of RADHA to less than 20/50 to show improved functional ability. STG Duration 05/08/21 [employer] Goal (LTG) Pt will imrpove score of RADHA to less than 10/50 to show improved functional ability. LTG Duration 06/10/21 Three Impairment transitions Short Term Goal (STG) Pt will be able to roll & do log roll for in/out of bed without difficulty or inc pain . STG Duration 05/11/21 [employer] Goal (LTG) Pt wilb e able to do 5 sit to stands with UEs w/o inc pain or difficulty to show imrpoved ability for transitions & improved LE strength LTG Duration 06/10/21 Two Impairment strength Short Term Goal (STG) Pt will be indep w/HEP STG Duration 04/27/21 [employer] Goal (LTG) pt will have at least 4+/5 LE strength B in all planes and 2 /5 LPM to show improved staiblity to allow pt to do typical ADLs without inc pain. LTG Duration 06/10/21 One Short Term Goal (STG) Pt will improve flex ROM to at least 50 deg in order to allow her to reach for objects w/greater ease. STG Duration 05/11/21 Assessment Summary Assessment Tx focused on HEP today per patient request supine/ side / standing. Pt required occasional cuing for TA/PPT and knee extenstion awareness during hip ext/ abd with decrease LB recruitment and focused on glut facilitation. Pt improved post cuing in sidelying hip abd w/ knee extension and stacked hips ( roll forward). Physical Therapy Plan Frequency and Duration Frequency of Treatment 2x/Week Duration of Treatment 3 months Plan of Care Start Date 03/11/21 Plan of Care End Date 06/10/21 Therapeutic Interventions Therapeutic Interventions Aquatic Therapy,Balance Training,Gait Training,Home Exercise Program,Joint Mobilizations,Manual Therapy, Neuromuscular Re-education, Patient/Caregiver Education, Self-Care/Home Management,Soft Tissue Mobilization,Taping, Therapeutic Activities, Therapeutic Exercises Modalities Cold Pack/Ice Massage,Electric Stimulation,Hot Packs, Ultrasound Next Visit Focus/Plan Next Note Type Treatment Note Next Visit Plan cont to work manually, focus on core stability exercises, work on balance
--- NOTE | 2021-03-31 17:51 | PT.OTN ---
Current Diagnoses Spondylolisthesis, lumbar region (03/31/21) Other spondylosis with radiculopathy, lumbosacral region (03/31/21) Spinal stenosis, lumbar region without neurogenic claudication (03/31/21) Difficulty in walking, not elsewhere classified (03/31/21) Abnormal posture (03/31/21) Weakness (03/31/21) Physical Therapy Treatment Note PT-OP-A Visit Information Start: 03/10/21 16:52 Freq: Status: Active Protocol: Document 03/31/21 16:45 [facility] (Rec: 03/31/21 17:46 [facility] [id number]) Out-Patient Physical Therapy Visit Information Visit Information Visit Type Treatment Note Visit Start Time 16:47 Visit Stop Time 17:31 Total Visit Minutes 44 Visit Number 7 Number of FOREST SUPERVISOR Visits 0 PT-OP-B Current Condition Start: 03/10/21 16:52 Freq: Status: Active Protocol: Document 03/11/21 08:59 [facility] (Rec: 03/11/21 09:45 [facility] [id number]) Current Condition History of Current Condition Onset Date TLIF 10/07/20 Current Complaints back pain History of Current Condition Pt had years and years of back pain which led her to surgery . She had a surgery by Dr. Longoria several years ago and it was compressing more so had L3-L4 TLIF 10/07/20. Pt went to rehab for 6 weeks and did HH PT and OT until January and feels like she lost all her progress. Pt was not having any issue getting up out of bed or a chair and now is. She had more consistant pain then but now it changes on a daily basis. Some days the entire area of the surgery hurts but last couple days, it has just been painful on L side. Pt reports prior to surgery, she had sciatica into RLE for several years, but now just feeling tight in BLEs. She tries to do stretches before gets out of bed, but it still bothers her. Pt has been doing HH exercises consistanly. She walked 4 miles before surgery but now if she gets 1/2 mile, she feels jessica d/t pain stopping her beofre that. Pt has been getting out for little walks (to mailbox, errands, etc). pt did not use cane prior to surgery. Pt reports 2 falls d/t dizziness when she first got home. Occ lists to L when dizzy when first get up. Prior Treatments and Tests SNF rehab & HH PT, PT prior to surgery for lymphadema (L arm )-pt does think she may have lymphadema in legs too though, and PT for scaitica ( did help) Treatment Goals Patient/Caregiver Goals wants to be able to get back out of bed again, be able to go out and walk more, be able to get rid of the cane. Personal Factors Other Personal Factors That May Effect 2 c-scetions, appy, Therapy/Recovery gallbladder removals, has a diastasis, CHF, lymphedema, liver disease, DM II, dizziness occ PT-OP-C Subjective Start: 03/10/21 16:52 Freq: Status: Active Protocol: Document 03/31/21 16:45 [facility] (Rec: 03/31/21 17:46 [facility] [id number]) OP-PT Subjective Patient Comments Patient Comments Pt reports since last week, her back has been bothering her. Pt reports one day she did 1.2 miles over the course of the day which her normal is .7. Pt reports today pain is B. Pt has done ice and heat but not yest today. Pt reports 2x where seh fell over into the wall then to other wall and walked thew all to bathroom at night. Pt reports she turned too fast in kitchen and fell fwd and caught herself on the kitchen. Pt 2x got up/down from ground to look for stuff PT-OP-F Manual Assessment Start: 03/10/21 16:52 Freq: Status: Active Protocol: Document 03/11/21 08:59 [facility] (Rec: 03/11/21 09:45 [facility] [id number]) Manual Assessments Soft Tissue Assessment Soft Tissue Mobility Assessment L>R Glutes, ES & QL PT-OP-G Mobility & Gait Start: 03/10/21 16:52 Freq: Status: Active Protocol: Document 03/11/21 08:59 [facility] (Rec: 03/11/21 09:45 [facility] [id number]) OP Mobility Evaluation Bed Mobility Rolling more difficult R, very segmental in movement Supine to and from Sit log roll in/out, slow and segmental Transfers Sit to Stand hard push from chair w/inc time OP Gait Assessment Comments Gait Comments leaning to L and lat leaning B , very stiff and slow, dec psuh off PT-OP-J Posture/Palpation/Skin Start: 03/10/21 16:52 Freq: Status: Active Protocol: Document 03/11/21 08:59 [facility] (Rec: 03/11/21 09:45 [facility] [id number]) Posture Evaluation [facility] Postural Classification System Inocencia Postural Classifications Posterior/Posterior Lumbar Protective Mechanism Left AP 0 Lumbar Protective Mechanism Right AP 0 Lumbar Protective Mechanism Left PA 0 Lumbar Protective Mechanism Right PA 0 Comments Posture Comments side bends and rotates left PT-OP-K Range of Motion Start: 03/10/21 16:52 Freq: Status: Active Protocol: Document 03/11/21 08:59 [facility] (Rec: 03/11/21 09:45 [facility] [id number]) Lumbar Spine Range of Motion Lumbar Spine Active Degrees Flexion 30 Extension 18 Rotation Left 38 Rotation Right 12 Lateral Flexion Left 25 Lateral Flexion Right 14 PT-OP-L Special Tests Start: 03/10/21 16:52 Freq: Status: Active Protocol: Document 03/11/21 08:59 [facility] (Rec: 03/11/21 09:45 [facility] [id number]) Special Tests Lumbar Spine Special Tests Straight Leg Raise Test Results L 45 deg pain in buttock w/opp knee bent Comments R 71 HS stretch Slump Test Results positive L PT-OP-M Strength Start: 03/10/21 16:52 Freq: Status: Active Protocol: Document 03/11/21 08:59 [facility] (Rec: 03/11/21 09:45 [facility] [id number]) Hip Strength Hip Manual Muscle Testing Left Flexion (L2) 3 Fair Abduction 3- Fair- External Rotation 3+ Fair+ Internal Rotation 3+ Fair+ Right Flexion (L2) 3+ Fair+ Abduction 3 Fair External Rotation 3+ Fair+ Internal Rotation 3+ Fair+ Knee Strength Knee Manual Muscle Testing Left Flexion (S2) 4+ Good+ Extension (L3) 4 Good Right Flexion (S2) 4+ Good+ Extension (L3) 4 Good Ankle/Foot Strength Ankle and Foot Manual Muscle Testing Left Dorsiflexion (L4) 4 Good Plantarflexion (S1) 4 Good Comments PF tested seated B Right Dorsiflexion (L4) 4 Good Plantarflexion (S1) 4 Good PT-OP-Q Treatments Start: 03/10/21 16:52 Freq: Status: Active Protocol: Document 03/31/21 16:45 [facility] (Rec: 03/31/21 17:46 [facility] [id number]) Cardio Equipment Recumbent Elliptical ([employer]) Duration (Minutes) 7 Resistance 4 Seat Position 4 Therapeutic Exercises Supine Exercises bridge Supine Exercise Name mini w/PT LE traction Side bilateral Reps/Minutes 10 Comments glute cues Gait Training Gait Activity wt shifts Description in mirror focus on wt acceptance & no twist or back ext Comments edu for neutral comfortable spine position Manual Therapy Treatment Soft Tissue Mobilization lumbar Body Location scars, L ES & QL Mobilization Type Rolling,Strumming,Sustained Pressure Intensity/Depth Moderate Body Position Sidelying Comments L S/L Neuro Re-Education Treatment Balance Activities foam Details WBOS, NBOS Surface blue Firm Details WBOS, NBOS, staggered stance B Equipment EC Other Activities core facilitation Comments manual traciton into diagonals for core facilitation Self-Care/Home Management Treatment Education Other Education edu on importance of facilating core to fire and keeping in comfortable posture PT-OP-T Assessment and Plan Start: 03/10/21 16:52 Freq: Status: Active Protocol: Document 03/31/21 16:45 [facility] (Rec: 03/31/21 17:46 [facility] [id number]) Physical Therapy Assessment Goals activity tolerance Short Term Goal (STG) Pt will be able to walk without cane in house and for short distancesw ith good mechancis. STG Duration 05/11/21 Long-Term Goal (LTG) Pt will be able to go for 1 mile walk without cane without more than 2 point pain inc. LTG Duration 06/10/21 Four Impairment RADHA 28/50 Short Term Goal (STG) Pt will imrpove score of RADHA to less than 20/50 to show improved functional ability. STG Duration 05/08/21 Long-Term Goal (LTG) Pt will imrpove score of RADHA to less than 10/50 to show improved functional ability. LTG Duration 06/10/21 Three Impairment transitions Short Term Goal (STG) Pt will be able to roll & do log roll for in/out of bed without difficulty or inc pain . STG Duration 05/11/21 [employer] Goal (LTG) Pt wilb e able to do 5 sit to stands with UEs w/o inc pain or difficulty to show imrpoved ability for transitions & improved LE strength LTG Duration 06/10/21 Two Impairment strength Short Term Goal (STG) Pt will be indep w/HEP STG Duration 04/27/21 Long-Term Goal (LTG) pt will have at least 4+/5 LE strength B in all planes and 2 /5 LPM to show improved staiblity to allow pt to do typical ADLs without inc pain. LTG Duration 06/10/21 One Short Term Goal (STG) Pt will improve flex ROM to at least 50 deg in order to allow her to reach for objects w/greater ease. STG Duration 05/11/21 Assessment Summary Assessment Pt had difficulty w/wt shifts in mirror to keep trunk neutral as she typically extends thoracic spine over pelvis when wt shifting fwd. She showed imrpovement with balance and with rolling today but end range of roll, pt still has difficulty. Physical Therapy Plan Frequency and Duration Frequency of Treatment 2x/Week Duration of Treatment 3 months Plan of Care Start Date 03/11/21 Plan of Care End Date 06/10/21 Next Visit Focus/Plan Next Note Type Treatment Note Next Visit Plan cont to work manually, focus on core stability exercises, work on balance
--- NOTE | 2021-04-02 09:55 | PT.OTN ---
Current Diagnoses Spondylolisthesis, lumbar region (04/02/21) Other spondylosis with radiculopathy, lumbosacral region (04/02/21) Spinal stenosis, lumbar region without neurogenic claudication (04/02/21) Difficulty in walking, not elsewhere classified (04/02/21) Abnormal posture (04/02/21) Weakness (04/02/21) Physical Therapy Treatment Note PT-OP-A Visit Information Start: 03/10/21 16:52 Freq: Status: Active Protocol: Document 04/02/21 09:07 [facility] (Rec: 04/02/21 09:55 [facility] [id number]) Out-Patient Physical Therapy Visit Information Visit Information Visit Type Treatment Note Visit Note 07/08 Visit Start Time 09:01 Visit Stop Time 09:45 Total Visit Minutes 44 Visit Number 8 Number of STORAGE MANAGEMENT CONSULTANT Visits 0 PT-OP-B Current Condition Start: 03/10/21 16:52 Freq: Status: Active Protocol: Document 03/11/21 08:59 [facility] (Rec: 03/11/21 09:45 [facility] [id number]) Current Condition History of Current Condition Onset Date TLIF 10/07/20 Current Complaints back pain History of Current Condition Pt had years and years of back pain which led her to surgery . She had a surgery by Dr. Longoria several years ago and it was compressing more so had L3-L4 TLIF 10/07/20. Pt went to rehab for 6 weeks and did HH PT and OT until January and feels like she lost all her progress. Pt was not having any issue getting up out of bed or a chair and now is. She had more consistant pain then but now it changes on a daily basis. Some days the entire area of the surgery hurts but last couple days, it has just been painful on L side. Pt reports prior to surgery, she had sciatica into RLE for several years, but now just feeling tight in BLEs. She tries to do stretches before gets out of bed, but it still bothers her. Pt has been doing HH exercises consistanly. She walked 4 miles before surgery but now if she gets 1/2 mile, she feels jessica d/t pain stopping her beofre that. Pt has been getting out for little walks (to mailbox, errands, etc). pt did not use cane prior to surgery. Pt reports 2 falls d/t dizziness when she first got home. Occ lists to L when dizzy when first get up. Prior Treatments and Tests SNF rehab & HH PT, PT prior to surgery for lymphadema (L arm )-pt does think she may have lymphadema in legs too though, and PT for scaitica ( did help) Treatment Goals Patient/Caregiver Goals wants to be able to get back out of bed again, be able to go out and walk more, be able to get rid of the cane. Personal Factors Other Personal Factors That May Effect 2 c-scetions, appy, Therapy/Recovery gallbladder removals, has a diastasis, CHF, lymphedema, liver disease, DM II, dizziness occ PT-OP-C Subjective Start: 03/10/21 16:52 Freq: Status: Active Protocol: Document 04/02/21 09:07 [facility] (Rec: 04/02/21 09:55 [facility] [id number]) OP-PT Subjective Patient Comments Patient Comments Pt reports she did better after last session. She was able to sleep better. Notes she feels like the reaching w/ rolling really helps. PT-OP-F Manual Assessment Start: 03/10/21 16:52 Freq: Status: Active Protocol: Document 03/11/21 08:59 [facility] (Rec: 03/11/21 09:45 [facility] [id number]) Manual Assessments Soft Tissue Assessment Soft Tissue Mobility Assessment L>R Glutes, ES & QL PT-OP-G Mobility & Gait Start: 03/10/21 16:52 Freq: Status: Active Protocol: Document 03/11/21 08:59 [facility] (Rec: 03/11/21 09:45 [facility] [id number]) OP Mobility Evaluation Bed Mobility Rolling more difficult R, very segmental in movement Supine to and from Sit log roll in/out, slow and segmental Transfers Sit to Stand hard push from chair w/inc time OP Gait Assessment Comments Gait Comments leaning to L and lat leaning B , very stiff and slow, dec psuh off PT-OP-J Posture/Palpation/Skin Start: 03/10/21 16:52 Freq: Status: Active Protocol: Document 03/11/21 08:59 [facility] (Rec: 03/11/21 09:45 [facility] [id number]) Posture Evaluation Inocencia Postural Classification System Inocencia Postural Classifications Posterior/Posterior Lumbar Protective Mechanism Left AP 0 Lumbar Protective Mechanism Right AP 0 Lumbar Protective Mechanism Left PA 0 Lumbar Protective Mechanism Right PA 0 Comments Posture Comments side bends and rotates left PT-OP-K Range of Motion Start: 03/10/21 16:52 Freq: Status: Active Protocol: Document 03/11/21 08:59 [facility] (Rec: 03/11/21 09:45 [facility] [id number]) Lumbar Spine Range of Motion Lumbar Spine Active Degrees Flexion 30 Extension 18 Rotation Left 38 Rotation Right 12 Lateral Flexion Left 25 Lateral Flexion Right 14 PT-OP-L Special Tests Start: 03/10/21 16:52 Freq: Status: Active Protocol: Document 03/11/21 08:59 [facility] (Rec: 03/11/21 09:45 [facility] [id number]) Special Tests Lumbar Spine Special Tests Straight Leg Raise Test Results L 45 deg pain in buttock w/opp knee bent Comments R 71 HS stretch Slump Test Results positive L PT-OP-M Strength Start: 03/10/21 16:52 Freq: Status: Active Protocol: Document 03/11/21 08:59 [facility] (Rec: 03/11/21 09:45 [facility] [id number]) Hip Strength Hip Manual Muscle Testing Left Flexion (L2) 3 Fair Abduction 3- Fair- External Rotation 3+ Fair+ Internal Rotation 3+ Fair+ Right Flexion (L2) 3+ Fair+ Abduction 3 Fair External Rotation 3+ Fair+ Internal Rotation 3+ Fair+ Knee Strength Knee Manual Muscle Testing Left Flexion (S2) 4+ Good+ Extension (L3) 4 Good Right Flexion (S2) 4+ Good+ Extension (L3) 4 Good Ankle/Foot Strength Ankle and Foot Manual Muscle Testing Left Dorsiflexion (L4) 4 Good Plantarflexion (S1) 4 Good Comments PF tested seated B Right Dorsiflexion (L4) 4 Good Plantarflexion (S1) 4 Good PT-OP-Q Treatments Start: 03/10/21 16:52 Freq: Status: Active Protocol: Document 04/02/21 09:07 [facility] (Rec: 04/02/21 09:55 [facility] [id number]) Cardio Equipment Recumbent Elliptical ([employer]) Duration (Minutes) 7 Resistance 5-6 Seat Position 4 Therapeutic Exercises Supine Exercises bridge Supine Exercise Name mini w/PT LE traction Side bilateral Reps/Minutes 10 Comments glute cues Standing Exercises hip hike Standing Exercise Name comfortable range Side bilateral Reps/Minutes 15 Manual Therapy Treatment Soft Tissue Mobilization lumbar Body Location scars, L ES & QL & focus on L SI joint region Mobilization Type Rolling,Strumming,Sustained Pressure Intensity/Depth Moderate Body Position Sidelying Comments L S/L Neuro Re-Education Treatment Balance Activities foam Details WBOS, NBOS Surface blue Firm Details WBOS, NBOS, staggered stance B Equipment EC PT-OP-T Assessment and Plan Start: 03/10/21 16:52 Freq: Status: Active Protocol: Document 04/02/21 09:07 [facility] (Rec: 04/02/21 09:55 [facility] [id number]) Physical Therapy Assessment Goals activity tolerance Short Term Goal (STG) Pt will be able to walk without cane in house and for short distancesw ith good mechancis. STG Duration 05/11/21 Custodial Goal (LTG) Pt will be able to go for 1 mile walk without cane without more than 2 point pain inc. LTG Duration 06/10/21 Four Impairment RADHA 28/50 Short Term Goal (STG) Pt will imrpove score of RADHA to less than 20/50 to show improved functional ability. STG Duration 05/08/21 Custodial Goal (LTG) Pt will imrpove score of RADHA to less than 10/50 to show improved functional ability. LTG Duration 06/10/21 Three Impairment transitions Short Term Goal (STG) Pt will be able to roll & do log roll for in/out of bed without difficulty or inc pain . STG Duration 05/11/21 Inorganic Chemical Technician Goal (LTG) Pt wilb e able to do 5 sit to stands with UEs w/o inc pain or difficulty to show imrpoved ability for transitions & improved LE strength LTG Duration 06/10/21 Two Impairment strength Short Term Goal (STG) Pt will be indep w/HEP STG Duration 04/27/21 Custodial Goal (LTG) pt will have at least 4+/5 LE strength B in all planes and 2 /5 LPM to show improved staiblity to allow pt to do typical ADLs without inc pain. LTG Duration 06/10/21 One Short Term Goal (STG) Pt will improve flex ROM to at least 50 deg in order to allow her to reach for objects w/greater ease. STG Duration 05/11/21 Assessment Summary Assessment Pt has difficulty still with getting posture when working on stability during balance exercises. She does note some L SI region pain when doing it extended, possibly d/t dec stability and L trunk lean. She had difficulty w/hip hikes with small range of motion able to be utilized only today . Physical Therapy Plan Frequency and Duration Frequency of Treatment 2x/Week Duration of Treatment 3 months Plan of Care Start Date 03/11/21 Plan of Care End Date 06/10/21 Next Visit Focus/Plan Next Note Type Treatment Note Next Visit Plan work on manual core facilitation, work on hip abd and ext strengthening
--- NOTE | 2021-04-07 14:41 | PT.OTN ---
Current Diagnoses Spondylolisthesis, lumbar region (04/07/21) Other spondylosis with radiculopathy, lumbosacral region (04/07/21) Spinal stenosis, lumbar region without neurogenic claudication (04/07/21) Difficulty in walking, not elsewhere classified (04/07/21) Abnormal posture (04/07/21) Weakness (04/07/21) Physical Therapy Treatment Note PT-OP-A Visit Information Start: 03/10/21 16:52 Freq: Status: Active Protocol: Document 04/07/21 13:51 [facility] (Rec: 04/07/21 14:40 [facility] [id number]) Out-Patient Physical Therapy Visit Information Visit Information Visit Type Treatment Note Visit Note 08/08 Visit Start Time 13:48 Visit Stop Time 14:28 Total Visit Minutes 40 Visit Number 9 Number of PRODUCTION ILLUSTRATOR Visits 0 PT-OP-B Current Condition Start: 03/10/21 16:52 Freq: Status: Active Protocol: Document 03/11/21 08:59 [facility] (Rec: 03/11/21 09:45 [facility] [id number]) Current Condition History of Current Condition Onset Date TLIF 10/07/20 Current Complaints back pain History of Current Condition Pt had years and years of back pain which led her to surgery . She had a surgery by Dr. Lognoria several years ago and it was compressing more so had L3-L4 TLIF 10/07/20. Pt went to rehab for 6 weeks and did HH PT and OT until January and feels like she lost all her progress. Pt was not having any issue getting up out of bed or a chair and now is. She had more consistant pain then but now it changes on a daily basis. Some days the entire area of the surgery hurts but last couple days, it has just been painful on L side. Pt reports prior to surgery, she had sciatica into RLE for several years, but now just feeling tight in BLEs. She tries to do stretches before gets out of bed, but it still bothers her. Pt has been doing HH exercises consistanly. She walked 4 miles before surgery but now if she gets 1/2 mile, she feels jessica d/t pain stopping her beofre that. Pt has been getting out for little walks (to mailbox, errands, etc). pt did not use cane prior to surgery. Pt reports 2 falls d/t dizziness when she first got home. Occ lists to L when dizzy when first get up. Prior Treatments and Tests SNF rehab & HH PT, PT prior to surgery for lymphadema (L arm )-pt does think she may have lymphadema in legs too though, and PT for scaitica ( did help) Treatment Goals Patient/Caregiver Goals wants to be able to get back out of bed again, be able to go out and walk more, be able to get rid of the cane. Personal Factors Other Personal Factors That May Effect 2 c-scetions, appy, Therapy/Recovery gallbladder removals, has a diastasis, CHF, lymphedema, liver disease, DM II, dizziness occ PT-OP-C Subjective Start: 03/10/21 16:52 Freq: Status: Active Protocol: Document 04/07/21 13:51 [facility] (Rec: 04/07/21 14:40 [facility] [id number]) OP-PT Subjective Patient Comments Patient Comments Pt reports doing better after last week's appt. Back is not stopping her from activity but she is still having nagging pain in L side. Pt gets .5-.7 miles on fitbit daily. She can 't seem to get past that. Walking and bed mobility getting better. She did a lot of driving in the car. PT-OP-F Manual Assessment Start: 03/10/21 16:52 Freq: Status: Active Protocol: Document 03/11/21 08:59 [facility] (Rec: 03/11/21 09:45 [facility] [id number]) Manual Assessments Soft Tissue Assessment Soft Tissue Mobility Assessment L>R Glutes, ES & QL PT-OP-G Mobility & Gait Start: 03/10/21 16:52 Freq: Status: Active Protocol: Document 03/11/21 08:59 [facility] (Rec: 03/11/21 09:45 [facility] [id number]) OP Mobility Evaluation Bed Mobility Rolling more difficult R, very segmental in movement Supine to and from Sit log roll in/out, slow and segmental Transfers Sit to Stand hard push from chair w/inc time OP Gait Assessment Comments Gait Comments leaning to L and lat leaning B , very stiff and slow, dec psuh off PT-OP-J Posture/Palpation/Skin Start: 03/10/21 16:52 Freq: Status: Active Protocol: Document 03/11/21 08:59 [facility] (Rec: 03/11/21 09:45 [facility] [id number]) Posture Evaluation Inocencia Postural Classification System Inocencia Postural Classifications Posterior/Posterior Lumbar Protective Mechanism Left AP 0 Lumbar Protective Mechanism Right AP 0 Lumbar Protective Mechanism Left PA 0 Lumbar Protective Mechanism Right PA 0 Comments Posture Comments side bends and rotates left PT-OP-K Range of Motion Start: 03/10/21 16:52 Freq: Status: Active Protocol: Document 03/11/21 08:59 [facility] (Rec: 03/11/21 09:45 [facility] [id number]) Lumbar Spine Range of Motion Lumbar Spine Active Degrees Flexion 30 Extension 18 Rotation Left 38 Rotation Right 12 Lateral Flexion Left 25 Lateral Flexion Right 14 PT-OP-L Special Tests Start: 03/10/21 16:52 Freq: Status: Active Protocol: Document 03/11/21 08:59 [facility] (Rec: 03/11/21 09:45 [facility] [id number]) Special Tests Lumbar Spine Special Tests Straight Leg Raise Test Results L 45 deg pain in buttock w/opp knee bent Comments R 71 HS stretch Slump Test Results positive L PT-OP-M Strength Start: 03/10/21 16:52 Freq: Status: Active Protocol: Document 03/11/21 08:59 [facility] (Rec: 03/11/21 09:45 [facility] [id number]) Hip Strength Hip Manual Muscle Testing Left Flexion (L2) 3 Fair Abduction 3- Fair- External Rotation 3+ Fair+ Internal Rotation 3+ Fair+ Right Flexion (L2) 3+ Fair+ Abduction 3 Fair External Rotation 3+ Fair+ Internal Rotation 3+ Fair+ Knee Strength Knee Manual Muscle Testing Left Flexion (S2) 4+ Good+ Extension (L3) 4 Good Right Flexion (S2) 4+ Good+ Extension (L3) 4 Good Ankle/Foot Strength Ankle and Foot Manual Muscle Testing Left Dorsiflexion (L4) 4 Good Plantarflexion (S1) 4 Good Comments PF tested seated B Right Dorsiflexion (L4) 4 Good Plantarflexion (S1) 4 Good PT-OP-Q Treatments Start: 03/10/21 16:52 Freq: Status: Active Protocol: Document 04/07/21 13:51 [facility] (Rec: 04/07/21 14:40 [facility] [id number]) Cardio Equipment Recumbent Stepper ([employer]) Duration (Minutes) 6 Resistance 3.0 Seat Position 7 Therapeutic Exercises Standing Exercises step up Side bilateral Equipment Used 5 in step Reps/Minutes 10 Comments in mirror hip hike Standing Exercise Name comfortable range Side bilateral Reps/Minutes 15 marching Standing Exercise Name in mirror w/hold focus on neutral spine & hp position Side bilateral Equipment Used rail Manual Therapy Treatment Soft Tissue Mobilization lumbar Body Location scars, L ES & QL & focus on L SI joint region Mobilization Type Rolling,Strumming,Sustained Pressure Intensity/Depth Moderate Body Position Sidelying Comments L S/L Neuro Re-Education Treatment Other Activities PNF Details L irradiation of ext, abd IR pattern Comments some assist to hold leg up PT-OP-T Assessment and Plan Start: 03/10/21 16:52 Freq: Status: Active Protocol: Document 04/07/21 13:51 [facility] (Rec: 04/07/21 14:40 [facility] [id number]) Physical Therapy Assessment Goals activity tolerance Short Term Goal (STG) Pt will be able to walk without cane in house and for short distancesw ith good mechancis. STG Duration 05/11/21 Mcfp Goal (LTG) Pt will be able to go for 1 mile walk without cane without more than 2 point pain inc. LTG Duration 06/10/21 Four Impairment RADHA 28/50 Short Term Goal (STG) Pt will imrpove score of RADHA to less than 20/50 to show improved functional ability. STG Duration 05/08/21 Mcfp Goal (LTG) Pt will imrpove score of RADHA to less than 10/50 to show improved functional ability. LTG Duration 06/10/21 Three Impairment transitions Short Term Goal (STG) Pt will be able to roll & do log roll for in/out of bed without difficulty or inc pain . STG Duration 05/11/21 Mcfp Goal (LTG) Pt wilb e able to do 5 sit to stands with UEs w/o inc pain or difficulty to show imrpoved ability for transitions & improved LE strength LTG Duration 06/10/21 Two Impairment strength Short Term Goal (STG) Pt will be indep w/HEP STG Duration 04/27/21 Mcfp Goal (LTG) pt will have at least 4+/5 LE strength B in all planes and 2 /5 LPM to show improved staiblity to allow pt to do typical ADLs without inc pain. LTG Duration 06/10/21 One Short Term Goal (STG) Pt will improve flex ROM to at least 50 deg in order to allow her to reach for objects w/greater ease. STG Duration 05/11/21 Assessment Summary Assessment Pt did well with exercises today but still has difficulty with full wt acceptance vanessa on LLE w/getting good glute engagment & push off. She did better wtih rolling today. Physical Therapy Plan Frequency and Duration Frequency of Treatment 2x/Week Duration of Treatment 3 months Plan of Care Start Date 03/11/21 Plan of Care End Date 06/10/21 Next Visit Focus/Plan Next Note Type Progress Note Next Visit Plan work on manual core facilitation, work on hip abd and ext strengthening
--- NOTE | 2021-04-09 13:25 | PT.OTN ---
Current Diagnoses Spondylolisthesis, lumbar region (04/09/21) Other spondylosis with radiculopathy, lumbosacral region (04/09/21) Spinal stenosis, lumbar region without neurogenic claudication (04/09/21) Difficulty in walking, not elsewhere classified (04/09/21) Abnormal posture (04/09/21) Weakness (04/09/21) Physical Therapy Treatment Note PT-OP-A Visit Information Start: 03/10/21 16:52 Freq: Status: Active Protocol: Document 04/09/21 11:41 [facility] (Rec: 04/09/21 12:14 [facility] [id number]) Out-Patient Physical Therapy Visit Information Visit Information Visit Type Progress Note Visit Note 12/08 Visit Start Time 11:15 Visit Stop Time 11:58 Total Visit Minutes 43 Visit Number 10 Number of NEUROPSYCHOLOGY DIRECTOR Visits 0 PT-OP-B Current Condition Start: 03/10/21 16:52 Freq: Status: Active Protocol: Document 03/11/21 08:59 [facility] (Rec: 03/11/21 09:45 [facility] [id number]) Current Condition History of Current Condition Onset Date TLIF 10/07/20 Current Complaints back pain History of Current Condition Pt had years and years of back pain which led her to surgery . She had a surgery by Dr. Longoria several years ago and it was compressing more so had L3-L4 TLIF 10/07/20. Pt went to rehab for 6 weeks and did HH PT and OT until January and feels like she lost all her progress. Pt was not having any issue getting up out of bed or a chair and now is. She had more consistant pain then but now it changes on a daily basis. Some days the entire area of the surgery hurts but last couple days, it has just been painful on L side. Pt reports prior to surgery, she had sciatica into RLE for several years, but now just feeling tight in BLEs. She tries to do stretches before gets out of bed, but it still bothers her. Pt has been doing HH exercises consistanly. She walked 4 miles before surgery but now if she gets 1/2 mile, she feels jessica d/t pain stopping her beofre that. Pt has been getting out for little walks (to mailbox, errands, etc). pt did not use cane prior to surgery. Pt reports 2 falls d/t dizziness when she first got home. Occ lists to L when dizzy when first get up. Prior Treatments and Tests SNF rehab & HH PT, PT prior to surgery for lymphadema (L arm )-pt does think she may have lymphadema in legs too though, and PT for scaitica ( did help) Treatment Goals Patient/Caregiver Goals wants to be able to get back out of bed again, be able to go out and walk more, be able to get rid of the cane. Personal Factors Other Personal Factors That May Effect 2 c-scetions, appy, Therapy/Recovery gallbladder removals, has a diastasis, CHF, lymphedema, liver disease, DM II, dizziness occ PT-OP-C Subjective Start: 03/10/21 16:52 Freq: Status: Active Protocol: Document 04/09/21 11:41 [facility] (Rec: 04/09/21 12:14 [facility] [id number]) OP-PT Subjective Patient Comments Patient Comments Pt reports she feels like she is moving alot easier. Patient Reported Progress Improving PT-OP-F Manual Assessment Start: 03/10/21 16:52 Freq: Status: Active Protocol: Document 03/11/21 08:59 [facility] (Rec: 03/11/21 09:45 [facility] [id number]) Manual Assessments Soft Tissue Assessment Soft Tissue Mobility Assessment L>R Glutes, ES & QL PT-OP-G Mobility & Gait Start: 03/10/21 16:52 Freq: Status: Active Protocol: Document 03/11/21 08:59 [facility] (Rec: 03/11/21 09:45 [facility] [id number]) OP Mobility Evaluation Bed Mobility Rolling more difficult R, very segmental in movement Supine to and from Sit log roll in/out, slow and segmental Transfers Sit to Stand hard push from chair w/inc time OP Gait Assessment Comments Gait Comments leaning to L and lat leaning B , very stiff and slow, dec psuh off PT-OP-J Posture/Palpation/Skin Start: 03/10/21 16:52 Freq: Status: Active Protocol: Document 03/11/21 08:59 [facility] (Rec: 03/11/21 09:45 [facility] [id number]) Posture Evaluation Inocencia Postural Classification System Inocencia Postural Classifications Posterior/Posterior Lumbar Protective Mechanism Left AP 0 Lumbar Protective Mechanism Right AP 0 Lumbar Protective Mechanism Left PA 0 Lumbar Protective Mechanism Right PA 0 Comments Posture Comments side bends and rotates left PT-OP-K Range of Motion Start: 03/10/21 16:52 Freq: Status: Active Protocol: Document 03/11/21 08:59 [facility] (Rec: 03/11/21 09:45 [facility] [id number]) Lumbar Spine Range of Motion Lumbar Spine Active Degrees Flexion 30 Extension 18 Rotation Left 38 Rotation Right 12 Lateral Flexion Left 25 Lateral Flexion Right 14 PT-OP-L Special Tests Start: 03/10/21 16:52 Freq: Status: Active Protocol: Document 03/11/21 08:59 [facility] (Rec: 03/11/21 09:45 [facility] [id number]) Special Tests Lumbar Spine Special Tests Straight Leg Raise Test Results L 45 deg pain in buttock w/opp knee bent Comments R 71 HS stretch Slump Test Results positive L PT-OP-M Strength Start: 03/10/21 16:52 Freq: Status: Active Protocol: Document 04/09/21 11:41 [facility] (Rec: 04/09/21 12:14 [facility] [id number]) Hip Strength Hip Manual Muscle Testing Left Flexion (L2) 3+ Fair+ Abduction 3- Fair- External Rotation 4- Good- Internal Rotation 4 Good Right Flexion (L2) 4- Good- Abduction 3 Fair External Rotation 4- Good- Internal Rotation 4 Good Knee Strength Knee Manual Muscle Testing Left Flexion (S2) 4+ Good+ Extension (L3) 4+ Good+ Right Flexion (S2) 4+ Good+ Extension (L3) 4+ Good+ Ankle/Foot Strength Ankle and Foot Manual Muscle Testing Left Dorsiflexion (L4) 5 Normal Plantarflexion (S1) 4+ Good+ Comments PF tested seated B Right Dorsiflexion (L4) 5 Normal Plantarflexion (S1) 4+ Good+ PT-OP-Q Treatments Start: 03/10/21 16:52 Freq: Status: Active Protocol: Document 04/09/21 11:41 [facility] (Rec: 04/09/21 12:14 [facility] [id number]) Cardio Equipment Recumbent Elliptical ([employer]) Duration (Minutes) 7 Resistance 5-6 Seat Position 4 Gym Equipment Sport Cord back Reps/Duration 10 Comments walk fwd Cord/Resistance green Reps/Duration 15 Comments walk Therapeutic Exercises Standing Exercises glute Standing Exercise Name set alt Side bilateral Reps/Minutes 15 tandem stand Side bilateral Reps/Minutes trials Manual Therapy Treatment Soft Tissue Mobilization lumbar Body Location scars, L ES & QL & focus on L SI joint region Mobilization Type Rolling,Strumming,Sustained Pressure Intensity/Depth Moderate Comments rolling in seated w/fwd flex & s/l PT-OP-T Assessment and Plan Start: 03/10/21 16:52 Freq: Status: Active Protocol: Document 04/09/21 11:41 [facility] (Rec: 04/09/21 12:14 [facility] [id number]) Physical Therapy Assessment Goals activity tolerance Short Term Goal (STG) Pt will be able to walk without cane in house and for short distancesw ith good mechancis. STG Duration achieved Correction Goal (LTG) Pt will be able to go for 1 mile walk without cane without more than 2 point pain inc. LTG Duration 06/10/21 Four Impairment RADHA 28/50 Short Term Goal (STG) Pt will imrpove score of RADHA to less than 20/50 to show improved functional ability. 04/09-improved to 23/50 STG Duration 05/08/21 Correction Goal (LTG) Pt will imrpove score of RADHA to less than 10/50 to show improved functional ability. LTG Duration 06/10/21 Three Impairment transitions Short Term Goal (STG) Pt will be able to roll & do log roll for in/out of bed without difficulty or inc pain . 04/09-improved ability w/less pain STG Duration 05/11/21 Fundraising Sale Representative Goal (LTG) Pt wilb e able to do 5 sit to stands with UEs w/o inc pain or difficulty to show imrpoved ability for transitions & improved LE strength LTG Duration 06/10/21 Two Impairment strength Short Term Goal (STG) Pt will be indep w/HEP STG Duration achieved Fundraising Sale Representative Goal (LTG) pt will have at least 4+/5 LE strength B in all planes and 2 /5 LPM to show improved staiblity to allow pt to do typical ADLs without inc pain. 04/09-improving LTG Duration 06/10/21 One Short Term Goal (STG) Pt will improve flex ROM to at least 50 deg in order to allow her to reach for objects w/greater ease. 04/09-slowly improving STG Duration 05/11/21 Assessment Summary Assessment Pt is making good progress towards her goals and is noting that she diong a lot more now and noticing a lot less pain. She is moving in bed and doing sit to stand with greater ease and less pain and is ambulating better w/ and without cane. She is still limited with flex and was anabel able to bend to 3 in above patella prior to manual and after was able to bend to mid patella with less pain. Physical Therapy Plan Frequency and Duration Frequency of Treatment 2x/Week Duration of Treatment 3 months Plan of Care Start Date 03/11/21 Plan of Care End Date 06/10/21 Next Visit Focus/Plan Next Note Type Treatment Note Next Visit Plan work on manual core facilitation, work on hip abd and ext strengthening
--- NOTE | 2021-04-14 12:10 | PT.OTN ---
Current Diagnoses Spondylolisthesis, lumbar region (04/14/21) Other spondylosis with radiculopathy, lumbosacral region (04/14/21) Spinal stenosis, lumbar region without neurogenic claudication (04/14/21) Difficulty in walking, not elsewhere classified (04/14/21) Abnormal posture (04/14/21) Weakness (04/14/21) Physical Therapy Treatment Note PT-OP-A Visit Information Start: 03/10/21 16:52 Freq: Status: Active Protocol: Document 04/14/21 11:29 [facility] (Rec: 04/14/21 12:10 [facility] [id number]) Out-Patient Physical Therapy Visit Information Visit Information Visit Type Treatment Note Visit Note 01/08 Visit Start Time 11:22 Visit Stop Time 12:01 Total Visit Minutes 39 Visit Number 11 Number of HADOOP APPLICATION DEVELOPER Visits 0 PT-OP-B Current Condition Start: 03/10/21 16:52 Freq: Status: Active Protocol: Document 03/11/21 08:59 [facility] (Rec: 03/11/21 09:45 [facility] [id number]) Current Condition History of Current Condition Onset Date TLIF 10/07/20 Current Complaints back pain History of Current Condition Pt had years and years of back pain which led her to surgery . She had a surgery by Dr. Longoria several years ago and it was compressing more so had L3-L4 TLIF 10/07/20. Pt went to rehab for 6 weeks and did HH PT and OT until January and feels like she lost all her progress. Pt was not having any issue getting up out of bed or a chair and now is. She had more consistant pain then but now it changes on a daily basis. Some days the entire area of the surgery hurts but last couple days, it has just been painful on L side. Pt reports prior to surgery, she had sciatica into RLE for several years, but now just feeling tight in BLEs. She tries to do stretches before gets out of bed, but it still bothers her. Pt has been doing HH exercises consistanly. She walked 4 miles before surgery but now if she gets 1/2 mile, she feels jessica d/t pain stopping her beofre that. Pt has been getting out for little walks (to mailbox, errands, etc). pt did not use cane prior to surgery. Pt reports 2 falls d/t dizziness when she first got home. Occ lists to L when dizzy when first get up. Prior Treatments and Tests SNF rehab & HH PT, PT prior to surgery for lymphadema (L arm )-pt does think she may have lymphadema in legs too though, and PT for scaitica ( did help) Treatment Goals Patient/Caregiver Goals wants to be able to get back out of bed again, be able to go out and walk more, be able to get rid of the cane. Personal Factors Other Personal Factors That May Effect 2 c-scetions, appy, Therapy/Recovery gallbladder removals, has a diastasis, CHF, lymphedema, liver disease, DM II, dizziness occ PT-OP-C Subjective Start: 03/10/21 16:52 Freq: Status: Active Protocol: Document 04/14/21 11:29 [facility] (Rec: 04/14/21 12:10 [facility] [id number]) OP-PT Subjective Patient Comments Patient Comments Pt reports working at the [employer] this weekend. She tried to sit as much as she stood as there was pain when she stood. She did heat when seh got back home PT-OP-F Manual Assessment Start: 03/10/21 16:52 Freq: Status: Active Protocol: Document 03/11/21 08:59 [facility] (Rec: 03/11/21 09:45 [facility] [id number]) Manual Assessments Soft Tissue Assessment Soft Tissue Mobility Assessment L>R Glutes, ES & QL PT-OP-G Mobility & Gait Start: 03/10/21 16:52 Freq: Status: Active Protocol: Document 03/11/21 08:59 [facility] (Rec: 03/11/21 09:45 [facility] [id number]) OP Mobility Evaluation Bed Mobility Rolling more difficult R, very segmental in movement Supine to and from Sit log roll in/out, slow and segmental Transfers Sit to Stand hard push from chair w/inc time OP Gait Assessment Comments Gait Comments leaning to L and lat leaning B , very stiff and slow, dec psuh off PT-OP-J Posture/Palpation/Skin Start: 03/10/21 16:52 Freq: Status: Active Protocol: Document 03/11/21 08:59 [facility] (Rec: 03/11/21 09:45 [facility] [id number]) Posture Evaluation [facility] Postural Classification System Inocencia Postural Classifications Posterior/Posterior Lumbar Protective Mechanism Left AP 0 Lumbar Protective Mechanism Right AP 0 Lumbar Protective Mechanism Left PA 0 Lumbar Protective Mechanism Right PA 0 Comments Posture Comments side bends and rotates left PT-OP-K Range of Motion Start: 03/10/21 16:52 Freq: Status: Active Protocol: Document 03/11/21 08:59 [facility] (Rec: 03/11/21 09:45 [facility] [id number]) Lumbar Spine Range of Motion Lumbar Spine Active Degrees Flexion 30 Extension 18 Rotation Left 38 Rotation Right 12 Lateral Flexion Left 25 Lateral Flexion Right 14 PT-OP-L Special Tests Start: 03/10/21 16:52 Freq: Status: Active Protocol: Document 03/11/21 08:59 [facility] (Rec: 03/11/21 09:45 [facility] [id number]) Special Tests Lumbar Spine Special Tests Straight Leg Raise Test Results L 45 deg pain in buttock w/opp knee bent Comments R 71 HS stretch Slump Test Results positive L PT-OP-M Strength Start: 03/10/21 16:52 Freq: Status: Active Protocol: Document 04/09/21 11:41 [facility] (Rec: 04/09/21 12:14 [facility] [id number]) Hip Strength Hip Manual Muscle Testing Left Flexion (L2) 3+ Fair+ Abduction 3- Fair- External Rotation 4- Good- Internal Rotation 4 Good Right Flexion (L2) 4- Good- Abduction 3 Fair External Rotation 4- Good- Internal Rotation 4 Good Knee Strength Knee Manual Muscle Testing Left Flexion (S2) 4+ Good+ Extension (L3) 4+ Good+ Right Flexion (S2) 4+ Good+ Extension (L3) 4+ Good+ Ankle/Foot Strength Ankle and Foot Manual Muscle Testing Left Dorsiflexion (L4) 5 Normal Plantarflexion (S1) 4+ Good+ Comments PF tested seated B Right Dorsiflexion (L4) 5 Normal Plantarflexion (S1) 4+ Good+ PT-OP-Q Treatments Start: 03/10/21 16:52 Freq: Status: Active Protocol: Document 04/14/21 11:29 [facility] (Rec: 04/14/21 12:10 [facility] [id number]) Cardio Equipment Recumbent Elliptical ([employer]) Duration (Minutes) 6 Resistance 5-6 Seat Position 4 Gym Equipment Shuttle Balance chains red Details fwd & side : WBOS & NBOS Therapeutic Ball seated Ball Size/Color 65 cm Body Position seated Comments 1. 1 min sit to balance 2. small bounces x15 3. circles B x12 ea Therapeutic Exercises Standing Exercises SLS Standing Exercise Name january w/HH to rail Side bilateral Reps/Minutes 30 sec ea Manual Therapy Treatment Soft Tissue Mobilization lumbar Body Location scars, L ES & QL & focus on L SI joint region Mobilization Type Rolling,Strumming,Sustained Pressure Intensity/Depth Moderate Comments rolling in seated w/fwd flex & s/l Neuro Re-Education Treatment Balance Activities tandem Details stance trials B Other Activities PNF Details irradiation through LLE flex, add ER pattern PT-OP-T Assessment and Plan Start: 03/10/21 16:52 Freq: Status: Active Protocol: Document 04/14/21 11:29 [facility] (Rec: 04/14/21 12:10 [facility] [id number]) Physical Therapy Assessment Goals activity tolerance Short Term Goal (STG) Pt will be able to walk without cane in house and for short distancesw ith good mechancis. STG Duration achieved Analytical Chemist Goal (LTG) Pt will be able to go for 1 mile walk without cane without more than 2 point pain inc. LTG Duration 06/10/21 Four Impairment RADHA 28/50 Short Term Goal (STG) Pt will imrpove score of RADHA to less than 20/50 to show improved functional ability. 04/09-improved to 23/50 STG Duration 05/08/21 Usp Goal (LTG) Pt will imrpove score of RADHA to less than 10/50 to show improved functional ability. LTG Duration 06/10/21 Three Impairment transitions Short Term Goal (STG) Pt will be able to roll & do log roll for in/out of bed without difficulty or inc pain . 04/09-improved ability w/less pain STG Duration 05/11/21 Analytical Chemist Goal (LTG) Pt wilb e able to do 5 sit to stands with UEs w/o inc pain or difficulty to show imrpoved ability for transitions & improved LE strength LTG Duration 06/10/21 Two Impairment strength Short Term Goal (STG) Pt will be indep w/HEP STG Duration achieved Usp Goal (LTG) pt will have at least 4+/5 LE strength B in all planes and 2 /5 LPM to show improved staiblity to allow pt to do typical ADLs without inc pain. 04/09-improving LTG Duration 06/10/21 One Short Term Goal (STG) Pt will improve flex ROM to at least 50 deg in order to allow her to reach for objects w/greater ease. 04/09-slowly improving STG Duration 05/11/21 Assessment Summary Assessment Pt did well with balance today but requires cueing for posture when standing. She had good core response to irradiation w/LLE Physical Therapy Plan Frequency and Duration Frequency of Treatment 2x/Week Duration of Treatment 3 months Plan of Care Start Date 03/11/21 Plan of Care End Date 06/10/21 Next Visit Focus/Plan Next Note Type Treatment Note Next Visit Plan work on manual core facilitation, work on hip abd and ext strengthening
--- NOTE | 2021-04-16 13:47 | PT.OTN ---
Current Diagnoses Spondylolisthesis, lumbar region (04/16/21) Other spondylosis with radiculopathy, lumbosacral region (04/16/21) Spinal stenosis, lumbar region without neurogenic claudication (04/16/21) Difficulty in walking, not elsewhere classified (04/16/21) Abnormal posture (04/16/21) Weakness (04/16/21) Physical Therapy Treatment Note PT-OP-A Visit Information Start: 03/10/21 16:52 Freq: Status: Active Protocol: Document 04/16/21 13:02 [facility] (Rec: 04/16/21 13:46 [facility] [id number]) Out-Patient Physical Therapy Visit Information Visit Information Visit Type Treatment Note Visit Note 02/05 Visit Start Time 13:00 Visit Stop Time 13:40 Total Visit Minutes 40 Visit Number 12 Number of ROTARY PEEL OVEN TENDER Visits 0 PT-OP-B Current Condition Start: 03/10/21 16:52 Freq: Status: Active Protocol: Document 03/11/21 08:59 [facility] (Rec: 03/11/21 09:45 [facility] [id number]) Current Condition History of Current Condition Onset Date TLIF 10/07/20 Current Complaints back pain History of Current Condition Pt had years and years of back pain which led her to surgery . She had a surgery by Dr. Longoria several years ago and it was compressing more so had L3-L4 TLIF 10/07/20. Pt went to rehab for 6 weeks and did HH PT and OT until January and feels like she lost all her progress. Pt was not having any issue getting up out of bed or a chair and now is. She had more consistant pain then but now it changes on a daily basis. Some days the entire area of the surgery hurts but last couple days, it has just been painful on L side. Pt reports prior to surgery, she had sciatica into RLE for several years, but now just feeling tight in BLEs. She tries to do stretches before gets out of bed, but it still bothers her. Pt has been doing HH exercises consistanly. She walked 4 miles before surgery but now if she gets 1/2 mile, she feels jessica d/t pain stopping her beofre that. Pt has been getting out for little walks (to mailbox, errands, etc). pt did not use cane prior to surgery. Pt reports 2 falls d/t dizziness when she first got home. Occ lists to L when dizzy when first get up. Prior Treatments and Tests SNF rehab & HH PT, PT prior to surgery for lymphadema (L arm )-pt does think she may have lymphadema in legs too though, and PT for scaitica ( did help) Treatment Goals Patient/Caregiver Goals wants to be able to get back out of bed again, be able to go out and walk more, be able to get rid of the cane. Personal Factors Other Personal Factors That May Effect 2 c-scetions, appy, Therapy/Recovery gallbladder removals, has a diastasis, CHF, lymphedema, liver disease, DM II, dizziness occ PT-OP-C Subjective Start: 03/10/21 16:52 Freq: Status: Active Protocol: Document 04/16/21 13:02 [facility] (Rec: 04/16/21 13:46 [facility] [id number]) OP-PT Subjective Patient Comments Patient Comments Pt reports she did okay after last session PT-OP-F Manual Assessment Start: 03/10/21 16:52 Freq: Status: Active Protocol: Document 03/11/21 08:59 [facility] (Rec: 03/11/21 09:45 [facility] [id number]) Manual Assessments Soft Tissue Assessment Soft Tissue Mobility Assessment L>R Glutes, ES & QL PT-OP-G Mobility & Gait Start: 03/10/21 16:52 Freq: Status: Active Protocol: Document 03/11/21 08:59 [facility] (Rec: 03/11/21 09:45 [facility] [id number]) OP Mobility Evaluation Bed Mobility Rolling more difficult R, very segmental in movement Supine to and from Sit log roll in/out, slow and segmental Transfers Sit to Stand hard push from chair w/inc time OP Gait Assessment Comments Gait Comments leaning to L and lat leaning B , very stiff and slow, dec psuh off PT-OP-J Posture/Palpation/Skin Start: 03/10/21 16:52 Freq: Status: Active Protocol: Document 03/11/21 08:59 [facility] (Rec: 03/11/21 09:45 [facility] [id number]) Posture Evaluation Inocencia Postural Classification System Inocencia Postural Classifications Posterior/Posterior Lumbar Protective Mechanism Left AP 0 Lumbar Protective Mechanism Right AP 0 Lumbar Protective Mechanism Left PA 0 Lumbar Protective Mechanism Right PA 0 Comments Posture Comments side bends and rotates left PT-OP-K Range of Motion Start: 03/10/21 16:52 Freq: Status: Active Protocol: Document 03/11/21 08:59 [facility] (Rec: 03/11/21 09:45 [facility] [id number]) Lumbar Spine Range of Motion Lumbar Spine Active Degrees Flexion 30 Extension 18 Rotation Left 38 Rotation Right 12 Lateral Flexion Left 25 Lateral Flexion Right 14 PT-OP-L Special Tests Start: 03/10/21 16:52 Freq: Status: Active Protocol: Document 03/11/21 08:59 [facility] (Rec: 03/11/21 09:45 [facility] [id number]) Special Tests Lumbar Spine Special Tests Straight Leg Raise Test Results L 45 deg pain in buttock w/opp knee bent Comments R 71 HS stretch Slump Test Results positive L PT-OP-M Strength Start: 03/10/21 16:52 Freq: Status: Active Protocol: Document 04/09/21 11:41 [facility] (Rec: 04/09/21 12:14 [facility] [id number]) Hip Strength Hip Manual Muscle Testing Left Flexion (L2) 3+ Fair+ Abduction 3- Fair- External Rotation 4- Good- Internal Rotation 4 Good Right Flexion (L2) 4- Good- Abduction 3 Fair External Rotation 4- Good- Internal Rotation 4 Good Knee Strength Knee Manual Muscle Testing Left Flexion (S2) 4+ Good+ Extension (L3) 4+ Good+ Right Flexion (S2) 4+ Good+ Extension (L3) 4+ Good+ Ankle/Foot Strength Ankle and Foot Manual Muscle Testing Left Dorsiflexion (L4) 5 Normal Plantarflexion (S1) 4+ Good+ Comments PF tested seated B Right Dorsiflexion (L4) 5 Normal Plantarflexion (S1) 4+ Good+ PT-OP-Q Treatments Start: 03/10/21 16:52 Freq: Status: Active Protocol: Document 04/16/21 13:02 [facility] (Rec: 04/16/21 13:46 [facility] [id number]) Cardio Equipment Recumbent Elliptical (Biodex) Duration (Minutes) 6 Resistance 5-6 Seat Position 4 Gym Equipment Shuttle Recovery leg press Details w/pPT Resistance 50# Shuttle Recovery Platform Stable Reps/Time 2x15 Shuttle Balance chains red Details fwd & side : WBOS & NBOS Therapeutic Ball seated Ball Size/Color 65 cm Body Position seated Comments 1. 1 min sit to balance 2. small bounces x15 3. circles B x12 ea 4.march b x10 rail prn Therapeutic Exercises Supine Exercises Pelvic tilt Supine Exercise Name core facilitiaton w/hand under back to not let back arch Side bilateral Reps/Minutes 10 Comments B Standing Exercises SLS Standing Exercise Name january w/HH to rail Side bilateral Reps/Minutes 30 sec ea Manual Therapy Treatment Joint Mobilizations hip Joint L Direction inf FM Neuro Re-Education Treatment Other Activities core facilitation Comments manual traciton into diagonals for core facilitation PT-OP-T Assessment and Plan Start: 03/10/21 16:52 Freq: Status: Active Protocol: Document 04/16/21 13:02 [facility] (Rec: 04/16/21 13:46 [facility] [id number]) Physical Therapy Assessment Goals activity tolerance Short Term Goal (STG) Pt will be able to walk without cane in house and for short distancesw ith good mechancis. STG Duration achieved Mall Manager Goal (LTG) Pt will be able to go for 1 mile walk without cane without more than 2 point pain inc. LTG Duration 06/10/21 Four Impairment RADHA 28/50 Short Term Goal (STG) Pt will imrpove score of RADHA to less than 20/50 to show improved functional ability. 04/09-improved to 23/50 STG Duration 05/08/21 Alf Goal (LTG) Pt will imrpove score of RADHA to less than 10/50 to show improved functional ability. LTG Duration 06/10/21 Three Impairment transitions Short Term Goal (STG) Pt will be able to roll & do log roll for in/out of bed without difficulty or inc pain . 04/09-improved ability w/less pain STG Duration 05/11/21 Alf Goal (LTG) Pt wilb e able to do 5 sit to stands with UEs w/o inc pain or difficulty to show imrpoved ability for transitions & improved LE strength LTG Duration 06/10/21 Two Impairment strength Short Term Goal (STG) Pt will be indep w/HEP STG Duration achieved Mall Manager Goal (LTG) pt will have at least 4+/5 LE strength B in all planes and 2 /5 LPM to show improved staiblity to allow pt to do typical ADLs without inc pain. 04/09-improving LTG Duration 06/10/21 One Short Term Goal (STG) Pt will improve flex ROM to at least 50 deg in order to allow her to reach for objects w/greater ease. 04/09-slowly improving STG Duration 05/11/21 Assessment Summary Assessment Pt did well with exercises but still is challenged with all exercises that are hip flexion related. Physical Therapy Plan Frequency and Duration Frequency of Treatment 2x/Week Duration of Treatment 3 months Plan of Care Start Date 03/11/21 Plan of Care End Date 06/10/21 Next Visit Focus/Plan Next Note Type Treatment Note Next Visit Plan work on manual core facilitation, work on hip abd and ext strengthening
--- NOTE | 2021-04-21 12:56 | PT.OTN ---
Current Diagnoses Spondylolisthesis, lumbar region (04/21/21) Other spondylosis with radiculopathy, lumbosacral region (04/21/21) Spinal stenosis, lumbar region without neurogenic claudication (04/21/21) Difficulty in walking, not elsewhere classified (04/21/21) Abnormal posture (04/21/21) Weakness (04/21/21) Physical Therapy Treatment Note PT-OP-A Visit Information Start: 03/10/21 16:52 Freq: Status: Active Protocol: Document 04/21/21 12:06 [facility] (Rec: 04/21/21 12:56 [facility] [id number]) Out-Patient Physical Therapy Visit Information Visit Information Visit Type Treatment Note Visit Note 03/08 Visit Start Time 12:00 Visit Stop Time 12:45 Total Visit Minutes 45 Visit Number 13 Number of FOREIGN STUDENT ADVISER TEACHER Visits 1 Precautions Precautions Abdominal surgeries: appendectomy, cholecystectomy Lumbar surgery PT-OP-B Current Condition Start: 03/10/21 16:52 Freq: Status: Active Protocol: Document 03/11/21 08:59 [facility] (Rec: 03/11/21 09:45 [facility] [id number]) Current Condition History of Current Condition Onset Date TLIF 10/07/20 Current Complaints back pain History of Current Condition Pt had years and years of back pain which led her to surgery . She had a surgery by Dr. Longoria several years ago and it was compressing more so had L3-L4 TLIF 10/07/20. Pt went to rehab for 6 weeks and did HH PT and OT until January and feels like she lost all her progress. Pt was not having any issue getting up out of bed or a chair and now is. She had more consistant pain then but now it changes on a daily basis. Some days the entire area of the surgery hurts but last couple days, it has just been painful on L side. Pt reports prior to surgery, she had sciatica into RLE for several years, but now just feeling tight in BLEs. She tries to do stretches before gets out of bed, but it still bothers her. Pt has been doing HH exercises consistanly. She walked 4 miles before surgery but now if she gets 1/2 mile, she feels jessica d/t pain stopping her beofre that. Pt has been getting out for little walks (to mailbox, errands, etc). pt did not use cane prior to surgery. Pt reports 2 falls d/t dizziness when she first got home. Occ lists to L when dizzy when first get up. Prior Treatments and Tests SNF rehab & HH PT, PT prior to surgery for lymphadema (L arm )-pt does think she may have lymphadema in legs too though, and PT for scaitica ( did help) Treatment Goals Patient/Caregiver Goals wants to be able to get back out of bed again, be able to go out and walk more, be able to get rid of the cane. Personal Factors Other Personal Factors That May Effect 2 c-scetions, appy, Therapy/Recovery gallbladder removals, has a diastasis, CHF, lymphedema, liver disease, DM II, dizziness occ PT-OP-C Subjective Start: 03/10/21 16:52 Freq: Status: Active Protocol: Document 04/21/21 12:06 [facility] (Rec: 04/21/21 12:56 [facility] [id number]) OP-PT Subjective Patient Comments Patient Comments Pt reports she is feeling better overall since starting therapy. Her friend nate told her she is walking a lot better and she agrees. PT-OP-F Manual Assessment Start: 03/10/21 16:52 Freq: Status: Active Protocol: Document 03/11/21 08:59 [facility] (Rec: 03/11/21 09:45 [facility] [id number]) Manual Assessments Soft Tissue Assessment Soft Tissue Mobility Assessment L>R Glutes, ES & QL PT-OP-G Mobility & Gait Start: 03/10/21 16:52 Freq: Status: Active Protocol: Document 03/11/21 08:59 [facility] (Rec: 03/11/21 09:45 [facility] [id number]) OP Mobility Evaluation Bed Mobility Rolling more difficult R, very segmental in movement Supine to and from Sit log roll in/out, slow and segmental Transfers Sit to Stand hard push from chair w/inc time OP Gait Assessment Comments Gait Comments leaning to L and lat leaning B , very stiff and slow, dec psuh off PT-OP-J Posture/Palpation/Skin Start: 03/10/21 16:52 Freq: Status: Active Protocol: Document 03/11/21 08:59 [facility] (Rec: 03/11/21 09:45 [facility] [id number]) Posture Evaluation [facility] Postural Classification System Inocencia Postural Classifications Posterior/Posterior Lumbar Protective Mechanism Left AP 0 Lumbar Protective Mechanism Right AP 0 Lumbar Protective Mechanism Left PA 0 Lumbar Protective Mechanism Right PA 0 Comments Posture Comments side bends and rotates left PT-OP-K Range of Motion Start: 03/10/21 16:52 Freq: Status: Active Protocol: Document 03/11/21 08:59 [facility] (Rec: 03/11/21 09:45 [facility] [id number]) Lumbar Spine Range of Motion Lumbar Spine Active Degrees Flexion 30 Extension 18 Rotation Left 38 Rotation Right 12 Lateral Flexion Left 25 Lateral Flexion Right 14 PT-OP-L Special Tests Start: 03/10/21 16:52 Freq: Status: Active Protocol: Document 03/11/21 08:59 [facility] (Rec: 03/11/21 09:45 [facility] [id number]) Special Tests Lumbar Spine Special Tests Straight Leg Raise Test Results L 45 deg pain in buttock w/opp knee bent Comments R 71 HS stretch Slump Test Results positive L PT-OP-M Strength Start: 03/10/21 16:52 Freq: Status: Active Protocol: Document 04/09/21 11:41 [facility] (Rec: 04/09/21 12:14 [facility] [id number]) Hip Strength Hip Manual Muscle Testing Left Flexion (L2) 3+ Fair+ Abduction 3- Fair- External Rotation 4- Good- Internal Rotation 4 Good Right Flexion (L2) 4- Good- Abduction 3 Fair External Rotation 4- Good- Internal Rotation 4 Good Knee Strength Knee Manual Muscle Testing Left Flexion (S2) 4+ Good+ Extension (L3) 4+ Good+ Right Flexion (S2) 4+ Good+ Extension (L3) 4+ Good+ Ankle/Foot Strength Ankle and Foot Manual Muscle Testing Left Dorsiflexion (L4) 5 Normal Plantarflexion (S1) 4+ Good+ Comments PF tested seated B Right Dorsiflexion (L4) 5 Normal Plantarflexion (S1) 4+ Good+ PT-OP-Q Treatments Start: 03/10/21 16:52 Freq: Status: Active Protocol: Document 04/21/21 12:06 [facility] (Rec: 04/21/21 12:56 [facility] [id number]) Cardio Equipment Recumbent Stepper (Sci-Fit) Duration (Minutes) 6 Resistance 2.5 Seat Position 7 Gym Equipment Shuttle Balance chains red Details fwd & side : WBOS & NBOS Therapeutic Ball seated Ball Size/Color 65 cm Body Position seated Comments 1. 1 min sit to balance 2. small bounces x15 3. B x12 ea 4.january b x10 rail prn Therapeutic Exercises Supine Exercises Piriformis Stretch Side bilateral Reps/Minutes 30 sec ea Comments good stretch response Sidelying Exercises Clamshells Side bilateral Reps/Minutes 2x10 Comments cued TA facilitation for trunk stability during ROM Standing Exercises heel raises Side bilateral Reps/Minutes 2x10 Comments focus on core & avoidign inc ext SLS Standing Exercise Name january w/ to rail Side bilateral Reps/Minutes 30 sec ea Manual Therapy Treatment Soft Tissue Mobilization lumbar Body Location scars, L ES & QL & focus on L SI joint region Mobilization Type Rolling,Strumming,Sustained Pressure Intensity/Depth Moderate Comments rolling in seated w/fwd flex & s/l glutes Mobilization Type Rolling,Sustained Pressure Intensity/Depth Moderate Body Position Sidelying Comments both gluteal msucles show high muscle tone to pressure. PT-OP-T Assessment and Plan Start: 03/10/21 16:52 Freq: Status: Active Protocol: Document 04/21/21 12:06 [facility] (Rec: 04/21/21 12:56 [facility] [id number]) Physical Therapy Assessment Goals activity tolerance Short Term Goal (STG) Pt will be able to walk without cane in house and for short distancesw ith good mechancis. STG Duration achieved Nursing Program Manager Goal (LTG) Pt will be able to go for 1 mile walk without cane without more than 2 point pain inc. LTG Duration 06/10/21 Four Impairment RADHA 28/50 Short Term Goal (STG) Pt will imrpove score of RADHA to less than 20/50 to show improved functional ability. 04/09-improved to 23/50 STG Duration 05/08/21 Long-Term Goal (LTG) Pt will imrpove score of RADHA to less than 10/50 to show improved functional ability. LTG Duration 06/10/21 Three Impairment transitions Short Term Goal (STG) Pt will be able to roll & do log roll for in/out of bed without difficulty or inc pain . 04/09-improved ability w/less pain STG Duration 05/11/21 Nursing Program Manager Goal (LTG) Pt wilb e able to do 5 sit to stands with UEs w/o inc pain or difficulty to show imrpoved ability for transitions & improved LE strength LTG Duration 06/10/21 Two Impairment strength Short Term Goal (STG) Pt will be indep w/HEP STG Duration achieved Nursing Program Manager Goal (LTG) pt will have at least 4+/5 LE strength B in all planes and 2 /5 LPM to show improved staiblity to allow pt to do typical ADLs without inc pain. 04/09-improving LTG Duration 06/10/21 One Short Term Goal (STG) Pt will improve flex ROM to at least 50 deg in order to allow her to reach for objects w/greater ease. 04/09-slowly improving STG Duration 05/11/21 Assessment Summary Assessment Kim had increased LBP during balance work today. She states that today is her first day off gabapentin since Deceme. Spoke with pt about how she may have more pain after therapy today due to coming off medication. Pt had increased tightness in L glutes today which improved after STM. Physical Therapy Plan Frequency and Duration Frequency of Treatment 2x/Week Duration of Treatment 3 months Plan of Care Start Date 03/11/21 Plan of Care End Date 06/10/21 Therapeutic Interventions Therapeutic Interventions Aquatic Therapy,Balance Training,Gait Training,Home Exercise Program,Joint Mobilizations,Manual Therapy, Neuromuscular Re-education, Patient/Caregiver Education, Self-Care/Home Management,Soft Tissue Mobilization,Taping, Therapeutic Activities, Therapeutic Exercises Modalities Cold Pack/Ice Massage,Electric Stimulation,Hot Packs, Ultrasound Next Visit Focus/Plan Next Note Type Treatment Note Next Visit Plan work on manual core facilitation, work on hip abd and ext strengthening
--- NOTE | 2021-04-23 18:02 | PT.OTN ---
Current Diagnoses Spondylolisthesis, lumbar region (04/23/21) Other spondylosis with radiculopathy, lumbosacral region (04/23/21) Spinal stenosis, lumbar region without neurogenic claudication (04/23/21) Difficulty in walking, not elsewhere classified (04/23/21) Abnormal posture (04/23/21) Weakness (04/23/21) Physical Therapy Treatment Note PT-OP-A Visit Information Start: 03/10/21 16:52 Freq: Status: Active Protocol: Document 04/23/21 14:46 [facility] (Rec: 04/23/21 18:02 [facility] [id number]) Out-Patient Physical Therapy Visit Information Visit Information Visit Type Treatment Note Visit Note 04/07 Visit Start Time 14:38 Visit Stop Time 15:16 Total Visit Minutes 38 Visit Number 14 Number of PUBLICATION MANAGER Visits 0 PT-OP-B Current Condition Start: 03/10/21 16:52 Freq: Status: Active Protocol: Document 03/11/21 08:59 [facility] (Rec: 03/11/21 09:45 [facility] [id number]) Current Condition History of Current Condition Onset Date TLIF 10/07/20 Current Complaints back pain History of Current Condition Pt had years and years of back pain which led her to surgery . She had a surgery by Dr. Longoria several years ago and it was compressing more so had L3-L4 TLIF 10/07/20. Pt went to rehab for 6 weeks and did HH PT and OT until January and feels like she lost all her progress. Pt was not having any issue getting up out of bed or a chair and now is. She had more consistant pain then but now it changes on a daily basis. Some days the entire area of the surgery hurts but last couple days, it has just been painful on L side. Pt reports prior to surgery, she had sciatica into RLE for several years, but now just feeling tight in BLEs. She tries to do stretches before gets out of bed, but it still bothers her. Pt has been doing HH exercises consistanly. She walked 4 miles before surgery but now if she gets 1/2 mile, she feels jessica d/t pain stopping her beofre that. Pt has been getting out for little walks (to mailbox, errands, etc). pt did not use cane prior to surgery. Pt reports 2 falls d/t dizziness when she first got home. Occ lists to L when dizzy when first get up. Prior Treatments and Tests SNF rehab & HH PT, PT prior to surgery for lymphadema (L arm )-pt does think she may have lymphadema in legs too though, and PT for scaitica ( did help) Treatment Goals Patient/Caregiver Goals wants to be able to get back out of bed again, be able to go out and walk more, be able to get rid of the cane. Personal Factors Other Personal Factors That May Effect 2 c-scetions, appy, Therapy/Recovery gallbladder removals, has a diastasis, CHF, lymphedema, liver disease, DM II, dizziness occ PT-OP-C Subjective Start: 03/10/21 16:52 Freq: Status: Active Protocol: Document 04/23/21 14:46 [facility] (Rec: 04/23/21 18:02 [facility] [id number]) OP-PT Subjective Patient Comments Patient Comments Pt reports she has already done .8 miles today with all her errands. Notes inc pain in back and hips but last week she stopped taking gabapentin med. PT-OP-F Manual Assessment Start: 03/10/21 16:52 Freq: Status: Active Protocol: Document 03/11/21 08:59 [facility] (Rec: 03/11/21 09:45 [facility] [id number]) Manual Assessments Soft Tissue Assessment Soft Tissue Mobility Assessment L>R Glutes, ES & QL PT-OP-G Mobility & Gait Start: 03/10/21 16:52 Freq: Status: Active Protocol: Document 03/11/21 08:59 [facility] (Rec: 03/11/21 09:45 [facility] [id number]) OP Mobility Evaluation Bed Mobility Rolling more difficult R, very segmental in movement Supine to and from Sit log roll in/out, slow and segmental Transfers Sit to Stand hard push from chair w/inc time OP Gait Assessment Comments Gait Comments leaning to L and lat leaning B , very stiff and slow, dec psuh off PT-OP-J Posture/Palpation/Skin Start: 03/10/21 16:52 Freq: Status: Active Protocol: Document 03/11/21 08:59 [facility] (Rec: 03/11/21 09:45 [facility] [id number]) Posture Evaluation [facility] Postural Classification System [facility] Postural Classifications Posterior/Posterior Lumbar Protective Mechanism Left AP 0 Lumbar Protective Mechanism Right AP 0 Lumbar Protective Mechanism Left PA 0 Lumbar Protective Mechanism Right PA 0 Comments Posture Comments side bends and rotates left PT-OP-K Range of Motion Start: 03/10/21 16:52 Freq: Status: Active Protocol: Document 03/11/21 08:59 [facility] (Rec: 03/11/21 09:45 [facility] [id number]) Lumbar Spine Range of Motion Lumbar Spine Active Degrees Flexion 30 Extension 18 Rotation Left 38 Rotation Right 12 Lateral Flexion Left 25 Lateral Flexion Right 14 PT-OP-L Special Tests Start: 03/10/21 16:52 Freq: Status: Active Protocol: Document 03/11/21 08:59 [facility] (Rec: 03/11/21 09:45 [facility] [id number]) Special Tests Lumbar Spine Special Tests Straight Leg Raise Test Results L 45 deg pain in buttock w/opp knee bent Comments R 71 HS stretch Slump Test Results positive L PT-OP-M Strength Start: 03/10/21 16:52 Freq: Status: Active Protocol: Document 04/09/21 11:41 [facility] (Rec: 04/09/21 12:14 [facility] [id number]) Hip Strength Hip Manual Muscle Testing Left Flexion (L2) 3+ Fair+ Abduction 3- Fair- External Rotation 4- Good- Internal Rotation 4 Good Right Flexion (L2) 4- Good- Abduction 3 Fair External Rotation 4- Good- Internal Rotation 4 Good Knee Strength Knee Manual Muscle Testing Left Flexion (S2) 4+ Good+ Extension (L3) 4+ Good+ Right Flexion (S2) 4+ Good+ Extension (L3) 4+ Good+ Ankle/Foot Strength Ankle and Foot Manual Muscle Testing Left Dorsiflexion (L4) 5 Normal Plantarflexion (S1) 4+ Good+ Comments PF tested seated B Right Dorsiflexion (L4) 5 Normal Plantarflexion (S1) 4+ Good+ PT-OP-Q Treatments Start: 03/10/21 16:52 Freq: Status: Active Protocol: Document 04/23/21 14:46 [facility] (Rec: 04/23/21 18:02 [facility] [id number]) Cardio Equipment Recumbent Stepper (Sci-Fit) Duration (Minutes) 6 Resistance 4 Seat Position 8 Gym Equipment Therapeutic Ball seated Ball Size/Color 65 cm Body Position seated Comments 1. 1 min sit to balance 2. small bounces x15 3. circles B x12 ea 4.march b x10 rail prn Therapeutic Exercises Supine Exercises n glide Supine Exercise Name sciatic Side bilateral Reps/Minutes 10 Comments towel behind leg SKTC Side bilateral Reps/Minutes 30 sec Comments towel Piriformis Stretch Side bilateral Reps/Minutes 30 sec ea Comments towel Pelvic tilt Reps/Minutes 8 Therapeutic Activity Therapeutic Activity sleep Name edu for pillow propping and towel use Manual Therapy Treatment Soft Tissue Mobilization lumbar Body Location scars, L ES & QL & focus on L SI joint region Mobilization Type Rolling,Strumming,Sustained Pressure Intensity/Depth Moderate Comments rolling in seated w/fwd flex & s/l glutes Mobilization Type Rolling,Sustained Pressure Intensity/Depth Moderate Body Position Sidelying Comments both gluteal msucles show high muscle tone to pressure. PT-OP-T Assessment and Plan Start: 03/10/21 16:52 Freq: Status: Active Protocol: Document 04/23/21 14:46 [facility] (Rec: 04/23/21 18:02 [facility] [id number]) Physical Therapy Assessment Goals activity tolerance Short Term Goal (STG) Pt will be able to walk without cane in house and for short distancesw ith good mechancis. STG Duration achieved Retirement Goal (LTG) Pt will be able to go for 1 mile walk without cane without more than 2 point pain inc. LTG Duration 06/10/21 Four Impairment RADHA 28/50 Short Term Goal (STG) Pt will imrpove score of RADHA to less than 20/50 to show improved functional ability. 04/09-improved to 23/50 STG Duration 05/08/21 Investigative Shopper Goal (LTG) Pt will imrpove score of RADHA to less than 10/50 to show improved functional ability. LTG Duration 06/10/21 Three Impairment transitions Short Term Goal (STG) Pt will be able to roll & do log roll for in/out of bed without difficulty or inc pain . 04/09-improved ability w/less pain STG Duration 05/11/21 Retirement Goal (LTG) Pt wilb e able to do 5 sit to stands with UEs w/o inc pain or difficulty to show imrpoved ability for transitions & improved LE strength LTG Duration 06/10/21 Two Impairment strength Short Term Goal (STG) Pt will be indep w/HEP STG Duration achieved Investigative Shopper Goal (LTG) pt will have at least 4+/5 LE strength B in all planes and 2 /5 LPM to show improved staiblity to allow pt to do typical ADLs without inc pain. 04/09-improving LTG Duration 06/10/21 One Short Term Goal (STG) Pt will improve flex ROM to at least 50 deg in order to allow her to reach for objects w/greater ease. 04/09-slowly improving STG Duration 05/11/21 Assessment Summary Assessment Pt had more pain with all transitions today and was educated on how to prop self sleeping and pt reproted being comfortable when PT propped w /pillows and towels. ENcouraged pt to do this at night. Physical Therapy Plan Frequency and Duration Frequency of Treatment 2x/Week Duration of Treatment 3 months Plan of Care Start Date 03/11/21 Plan of Care End Date 06/10/21 Next Visit Focus/Plan Next Note Type Treatment Note Next Visit Plan review stretches, cont to work on core faciliation & hip stability
--- NOTE | 2021-04-30 12:52 | PT.OTN ---
Current Diagnoses Spondylolisthesis, lumbar region (04/30/21) Other spondylosis with radiculopathy, lumbosacral region (04/30/21) Spinal stenosis, lumbar region without neurogenic claudication (04/30/21) Difficulty in walking, not elsewhere classified (04/30/21) Abnormal posture (04/30/21) Weakness (04/30/21) Physical Therapy Treatment Note PT-OP-A Visit Information Start: 03/10/21 16:52 Freq: Status: Active Protocol: Document 04/30/21 12:08 [facility] (Rec: 04/30/21 12:50 [facility] [id number]) Out-Patient Physical Therapy Visit Information Visit Information Visit Type Treatment Note Visit Note 05/08 Visit Start Time 12:05 Visit Stop Time 12:45 Total Visit Minutes 40 Visit Number 15 Number of LBD TEACHER Visits 1 PT-OP-B Current Condition Start: 03/10/21 16:52 Freq: Status: Active Protocol: Document 03/11/21 08:59 [facility] (Rec: 03/11/21 09:45 [facility] [id number]) Current Condition History of Current Condition Onset Date TLIF 10/07/20 Current Complaints back pain History of Current Condition Pt had years and years of back pain which led her to surgery . She had a surgery by Dr. Longoria several years ago and it was compressing more so had L3-L4 TLIF 10/07/20. Pt went to rehab for 6 weeks and did HH PT and OT until January and feels like she lost all her progress. Pt was not having any issue getting up out of bed or a chair and now is. She had more consistant pain then but now it changes on a daily basis. Some days the entire area of the surgery hurts but last couple days, it has just been painful on L side. Pt reports prior to surgery, she had sciatica into RLE for several years, but now just feeling tight in BLEs. She tries to do stretches before gets out of bed, but it still bothers her. Pt has been doing HH exercises consistanly. She walked 4 miles before surgery but now if she gets 1/2 mile, she feels jessica d/t pain stopping her beofre that. Pt has been getting out for little walks (to mailbox, errands, etc). pt did not use cane prior to surgery. Pt reports 2 falls d/t dizziness when she first got home. Occ lists to L when dizzy when first get up. Prior Treatments and Tests SNF rehab & HH PT, PT prior to surgery for lymphadema (L arm )-pt does think she may have lymphadema in legs too though, and PT for scaitica ( did help) Treatment Goals Patient/Caregiver Goals wants to be able to get back out of bed again, be able to go out and walk more, be able to get rid of the cane. Personal Factors Other Personal Factors That May Effect 2 c-scetions, appy, Therapy/Recovery gallbladder removals, has a diastasis, CHF, lymphedema, liver disease, DM II, dizziness occ PT-OP-C Subjective Start: 03/10/21 16:52 Freq: Status: Active Protocol: Document 04/30/21 12:08 [facility] (Rec: 04/30/21 12:52 [facility] [id number]) OP-PT Subjective Patient Comments Patient Comments Pt went for a walk with a friend this week and had to stop several times during the mile due to pain. She was able to garden yesterday without pain but thinks that may have increased the pain today. PT-OP-F Manual Assessment Start: 03/10/21 16:52 Freq: Status: Active Protocol: Document 03/11/21 08:59 [facility] (Rec: 03/11/21 09:45 [facility] [id number]) Manual Assessments Soft Tissue Assessment Soft Tissue Mobility Assessment L>R Glutes, ES & QL PT-OP-G Mobility & Gait Start: 03/10/21 16:52 Freq: Status: Active Protocol: Document 03/11/21 08:59 [facility] (Rec: 03/11/21 09:45 [facility] [id number]) OP Mobility Evaluation Bed Mobility Rolling more difficult R, very segmental in movement Supine to and from Sit log roll in/out, slow and segmental Transfers Sit to Stand hard push from chair w/inc time OP Gait Assessment Comments Gait Comments leaning to L and lat leaning B , very stiff and slow, dec psuh off PT-OP-J Posture/Palpation/Skin Start: 03/10/21 16:52 Freq: Status: Active Protocol: Document 03/11/21 08:59 [facility] (Rec: 03/11/21 09:45 [facility] [id number]) Posture Evaluation [facility] Postural Classification System [facility] Postural Classifications Posterior/Posterior Lumbar Protective Mechanism Left AP 0 Lumbar Protective Mechanism Right AP 0 Lumbar Protective Mechanism Left PA 0 Lumbar Protective Mechanism Right PA 0 Comments Posture Comments side bends and rotates left PT-OP-K Range of Motion Start: 03/10/21 16:52 Freq: Status: Active Protocol: Document 03/11/21 08:59 [facility] (Rec: 03/11/21 09:45 [facility] [id number]) Lumbar Spine Range of Motion Lumbar Spine Active Degrees Flexion 30 Extension 18 Rotation Left 38 Rotation Right 12 Lateral Flexion Left 25 Lateral Flexion Right 14 PT-OP-L Special Tests Start: 03/10/21 16:52 Freq: Status: Active Protocol: Document 03/11/21 08:59 [facility] (Rec: 03/11/21 09:45 [facility] [id number]) Special Tests Lumbar Spine Special Tests Straight Leg Raise Test Results L 45 deg pain in buttock w/opp knee bent Comments R 71 HS stretch Slump Test Results positive L PT-OP-M Strength Start: 03/10/21 16:52 Freq: Status: Active Protocol: Document 04/09/21 11:41 [facility] (Rec: 04/09/21 12:14 [facility] [id number]) Hip Strength Hip Manual Muscle Testing Left Flexion (L2) 3+ Fair+ Abduction 3- Fair- External Rotation 4- Good- Internal Rotation 4 Good Right Flexion (L2) 4- Good- Abduction 3 Fair External Rotation 4- Good- Internal Rotation 4 Good Knee Strength Knee Manual Muscle Testing Left Flexion (S2) 4+ Good+ Extension (L3) 4+ Good+ Right Flexion (S2) 4+ Good+ Extension (L3) 4+ Good+ Ankle/Foot Strength Ankle and Foot Manual Muscle Testing Left Dorsiflexion (L4) 5 Normal Plantarflexion (S1) 4+ Good+ Comments PF tested seated B Right Dorsiflexion (L4) 5 Normal Plantarflexion (S1) 4+ Good+ PT-OP-Q Treatments Start: 03/10/21 16:52 Freq: Status: Active Protocol: Document 04/30/21 12:08 [facility] (Rec: 04/30/21 12:50 [facility] [id number]) Cardio Equipment Recumbent Stepper (Sci-Fit) Duration (Minutes) 6 Resistance 4 Seat Position 8 Gym Equipment Therapeutic Ball seated Ball Size/Color 65 cm Body Position seated Comments 1. 1 min sit to balance 2. small bounces x15 3. circles B x12 ea 4.march b x10 rail prn Therapeutic Exercises Supine Exercises SKTC Side bilateral Reps/Minutes 30 sec Comments towel Piriformis Stretch Supine Exercise Name seated today* Side bilateral Reps/Minutes 30 sec ea Pelvic tilt Reps/Minutes 8 Manual Therapy Treatment Soft Tissue Mobilization lumbar Body Location scars, L ES & QL & focus on L SI joint region Mobilization Type Rolling,Strumming,Sustained Pressure Intensity/Depth Moderate Comments rolling in seated w/fwd flex & s/l glutes Mobilization Type Rolling,Sustained Pressure Intensity/Depth Moderate Body Position Sidelying Comments both gluteal msucles show high muscle tone to pressure. PT-OP-T Assessment and Plan Start: 03/10/21 16:52 Freq: Status: Active Protocol: Document 04/30/21 12:08 [facility] (Rec: 04/30/21 12:50 [facility] [id number]) Physical Therapy Assessment Goals activity tolerance Short Term Goal (STG) Pt will be able to walk without cane in house and for short distancesw ith good mechancis. STG Duration achieved Intermediate Goal (LTG) Pt will be able to go for 1 mile walk without cane without more than 2 point pain inc. LTG Duration 06/10/21 Four Impairment RADHA 28/50 Short Term Goal (STG) Pt will imrpove score of RADHA to less than 20/50 to show improved functional ability. 04/09-improved to 23/50 STG Duration 05/08/21 Comic Illustrator Goal (LTG) Pt will imrpove score of RADHA to less than 10/50 to show improved functional ability. LTG Duration 06/10/21 Three Impairment transitions Short Term Goal (STG) Pt will be able to roll & do log roll for in/out of bed without difficulty or inc pain . 04/09-improved ability w/less pain STG Duration 05/11/21 Comic Illustrator Goal (LTG) Pt wilb e able to do 5 sit to stands with UEs w/o inc pain or difficulty to show imrpoved ability for transitions & improved LE strength LTG Duration 06/10/21 Two Impairment strength Short Term Goal (STG) Pt will be indep w/HEP STG Duration achieved Intermediate Goal (LTG) pt will have at least 4+/5 LE strength B in all planes and 2 /5 LPM to show improved staiblity to allow pt to do typical ADLs without inc pain. 04/09-improving LTG Duration 06/10/21 One Short Term Goal (STG) Pt will improve flex ROM to at least 50 deg in order to allow her to reach for objects w/greater ease. 04/09-slowly improving STG Duration 05/11/21 Assessment Summary Assessment Pt had more pain today after going for a 1 mi walk with a friend. Worked on core facilitation seated on ball and supine with pelvic tilts. Focused on STM to iram glutes, QL, and ES. Pt is still having difficulty with bed mobility due to increased pain when twisting. Physical Therapy Plan Frequency and Duration Frequency of Treatment 2x/Week Duration of Treatment 3 months Plan of Care Start Date 03/11/21 Plan of Care End Date 06/10/21 Therapeutic Interventions Therapeutic Interventions Aquatic Therapy,Balance Training,Gait Training,Home Exercise Program,Joint Mobilizations,Manual Therapy, Neuromuscular Re-education, Patient/Caregiver Education, Self-Care/Home Management,Soft Tissue Mobilization,Taping, Therapeutic Activities, Therapeutic Exercises Modalities Cold Pack/Ice Massage,Electric Stimulation,Hot Packs, Ultrasound Next Visit Focus/Plan Next Note Type Treatment Note Next Visit Plan review stretches, cont to work on core faciliation & hip stability
--- NOTE | 2021-05-02 12:59 | PT.OTN ---
Current Diagnoses Spondylolisthesis, lumbar region (05/02/21) Other spondylosis with radiculopathy, lumbosacral region (05/02/21) Spinal stenosis, lumbar region without neurogenic claudication (05/02/21) Difficulty in walking, not elsewhere classified (05/02/21) Abnormal posture (05/02/21) Weakness (05/02/21) Physical Therapy Treatment Note PT-OP-A Visit Information Start: 03/10/21 16:52 Freq: Status: Active Protocol: Document 05/02/21 12:47 MA (Rec: 05/02/21 12:59 MA [id number]) Out-Patient Physical Therapy Visit Information Visit Information Visit Type Treatment Note Visit Note 06/07 Visit Start Time 12:05 Visit Stop Time 12:45 Total Visit Minutes 40 Visit Number 16 Number of MAILING SPECIALIST Visits 1 PT-OP-B Current Condition Start: 03/10/21 16:52 Freq: Status: Active Protocol: Document 03/11/21 08:59 [facility] (Rec: 03/11/21 09:45 [facility] [id number]) Current Condition History of Current Condition Onset Date TLIF 10/07/20 Current Complaints back pain History of Current Condition Pt had years and years of back pain which led her to surgery . She had a surgery by Dr. Longoria several years ago and it was compressing more so had L3-L4 TLIF 10/07/20. Pt went to rehab for 6 weeks and did HH PT and OT until January and feels like she lost all her progress. Pt was not having any issue getting up out of bed or a chair and now is. She had more consistant pain then but now it changes on a daily basis. Some days the entire area of the surgery hurts but last couple days, it has just been painful on L side. Pt reports prior to surgery, she had sciatica into RLE for several years, but now just feeling tight in BLEs. She tries to do stretches before gets out of bed, but it still bothers her. Pt has been doing HH exercises consistanly. She walked 4 miles before surgery but now if she gets 1/2 mile, she feels jessica d/t pain stopping her beofre that. Pt has been getting out for little walks (to mailbox, errands, etc). pt did not use cane prior to surgery. Pt reports 2 falls d/t dizziness when she first got home. Occ lists to L when dizzy when first get up. Prior Treatments and Tests SNF rehab & HH PT, PT prior to surgery for lymphadema (L arm )-pt does think she may have lymphadema in legs too though, and PT for scaitica ( did help) Treatment Goals Patient/Caregiver Goals wants to be able to get back out of bed again, be able to go out and walk more, be able to get rid of the cane. Personal Factors Other Personal Factors That May Effect 2 c-scetions, appy, Therapy/Recovery gallbladder removals, has a diastasis, CHF, lymphedema, liver disease, DM II, dizziness occ PT-OP-C Subjective Start: 03/10/21 16:52 Freq: Status: Active Protocol: Document 05/02/21 12:47 MA (Rec: 05/02/21 12:59 MA [id number]) OP-PT Subjective Patient Comments Patient Comments Pt ran errands after last session and had a lot of pain after errands. She is able to walk 1 mile now vs .5 miles at beginning of therapy. PT-OP-F Manual Assessment Start: 03/10/21 16:52 Freq: Status: Active Protocol: Document 03/11/21 08:59 [facility] (Rec: 03/11/21 09:45 [facility] [id number]) Manual Assessments Soft Tissue Assessment Soft Tissue Mobility Assessment L>R Glutes, ES & QL PT-OP-G Mobility & Gait Start: 03/10/21 16:52 Freq: Status: Active Protocol: Document 03/11/21 08:59 [facility] (Rec: 03/11/21 09:45 [facility] [id number]) OP Mobility Evaluation Bed Mobility Rolling more difficult R, very segmental in movement Supine to and from Sit log roll in/out, slow and segmental Transfers Sit to Stand hard push from chair w/inc time OP Gait Assessment Comments Gait Comments leaning to L and lat leaning B , very stiff and slow, dec psuh off PT-OP-J Posture/Palpation/Skin Start: 03/10/21 16:52 Freq: Status: Active Protocol: Document 03/11/21 08:59 [facility] (Rec: 03/11/21 09:45 [facility] [id number]) Posture Evaluation Inocencia Postural Classification System Inocencia Postural Classifications Posterior/Posterior Lumbar Protective Mechanism Left AP 0 Lumbar Protective Mechanism Right AP 0 Lumbar Protective Mechanism Left PA 0 Lumbar Protective Mechanism Right PA 0 Comments Posture Comments side bends and rotates left PT-OP-K Range of Motion Start: 03/10/21 16:52 Freq: Status: Active Protocol: Document 03/11/21 08:59 [facility] (Rec: 03/11/21 09:45 [facility] [id number]) Lumbar Spine Range of Motion Lumbar Spine Active Degrees Flexion 30 Extension 18 Rotation Left 38 Rotation Right 12 Lateral Flexion Left 25 Lateral Flexion Right 14 PT-OP-L Special Tests Start: 03/10/21 16:52 Freq: Status: Active Protocol: Document 03/11/21 08:59 [facility] (Rec: 03/11/21 09:45 [facility] [id number]) Special Tests Lumbar Spine Special Tests Straight Leg Raise Test Results L 45 deg pain in buttock w/opp knee bent Comments R 71 HS stretch Slump Test Results positive L PT-OP-M Strength Start: 03/10/21 16:52 Freq: Status: Active Protocol: Document 04/09/21 11:41 LR (Rec: 04/09/21 12:14 [facility] [id number]) Hip Strength Hip Manual Muscle Testing Left Flexion (L2) 3+ Fair+ Abduction 3- Fair- External Rotation 4- Good- Internal Rotation 4 Good Right Flexion (L2) 4- Good- Abduction 3 Fair External Rotation 4- Good- Internal Rotation 4 Good Knee Strength Knee Manual Muscle Testing Left Flexion (S2) 4+ Good+ Extension (L3) 4+ Good+ Right Flexion (S2) 4+ Good+ Extension (L3) 4+ Good+ Ankle/Foot Strength Ankle and Foot Manual Muscle Testing Left Dorsiflexion (L4) 5 Normal Plantarflexion (S1) 4+ Good+ Comments PF tested seated B Right Dorsiflexion (L4) 5 Normal Plantarflexion (S1) 4+ Good+ PT-OP-Q Treatments Start: 03/10/21 16:52 Freq: Status: Active Protocol: Document 05/02/21 12:47 MA (Rec: 05/02/21 12:59 MA [id number]) Therapeutic Exercises Supine Exercises Piriformis Stretch Supine Exercise Name seated today* Side bilateral Reps/Minutes 60 sec ea Sidelying Exercises Clamshells Sidelying Exercise Name with STM to glutes Side bilateral Reps/Minutes 2x10 Comments cued TA facilitation for trunk stability during ROM Standing Exercises squats Standing Exercise Name mini squats over raised plinth Side bilateral Reps/Minutes 5x Therapeutic Activity Therapeutic Activity picking up objects Name picking up objects from stool Reps/Minutes 3 min Comments bending knees, keeping back straight and grabbing object with both hands to avoid twisting spine (lisa disk off stool) Manual Therapy Treatment Soft Tissue Mobilization lumbar Body Location scars, L ES & QL & focus on L SI joint region Mobilization Type Rolling,Strumming,Sustained Pressure Intensity/Depth Moderate Comments rolling in seated w/fwd flex & s/l glutes Body Location with active ER (clamshells) Mobilization Type Rolling,Sustained Pressure Intensity/Depth Moderate Body Position Sidelying Comments both gluteal msucles show high muscle tone to pressure. PT-OP-T Assessment and Plan Start: 03/10/21 16:52 Freq: Status: Active Protocol: Document 05/02/21 12:47 MA (Rec: 05/02/21 12:59 MA [id number]) Physical Therapy Assessment Goals activity tolerance Short Term Goal (STG) Pt will be able to walk without cane in house and for short distancesw ith good mechancis. STG Duration achieved Hand Finisher Goal (LTG) Pt will be able to go for 1 mile walk without cane without more than 2 point pain inc. LTG Duration 06/10/21 Four Impairment RADHA 28/50 Short Term Goal (STG) Pt will imrpove score of RADHA to less than 20/50 to show improved functional ability. 04/09-improved to 23/50 STG Duration 05/08/21 Group Home Goal (LTG) Pt will imrpove score of RADHA to less than 10/50 to show improved functional ability. LTG Duration 06/10/21 Three Impairment transitions Short Term Goal (STG) Pt will be able to roll & do log roll for in/out of bed without difficulty or inc pain . 04/09-improved ability w/less pain STG Duration 05/11/21 Group Home Goal (LTG) Pt wilb e able to do 5 sit to stands with UEs w/o inc pain or difficulty to show imrpoved ability for transitions & improved LE strength LTG Duration 06/10/21 Two Impairment strength Short Term Goal (STG) Pt will be indep w/HEP STG Duration achieved Group Home Goal (LTG) pt will have at least 4+/5 LE strength B in all planes and 2 /5 LPM to show improved staiblity to allow pt to do typical ADLs without inc pain. 04/09-improving LTG Duration 06/10/21 One Short Term Goal (STG) Pt will improve flex ROM to at least 50 deg in order to allow her to reach for objects w/greater ease. 04/09-slowly improving STG Duration 05/11/21 Assessment Summary Assessment Pt continues to have pain when changing positions. She is unable to complete a supine bridge today due to increased back pain. At the beginning of STM to low back, pt had some nausea due to pain but once MAILING SPECIALIST switched to glutes and came back to work on LB, pt had no more nausea. Worked on mini squats with raised plinth behind pt with pt having extreme difficulty keeping knees behind toes. When lifting an object off a raised stool, pt tends to twist to grab with one hand which increases LBP. Worked on squatting with WBOS to grab object with bilateral UEs with pt having decreased pain. Will continue working on squat form and lifting techniques next session. Physical Therapy Plan Frequency and Duration Frequency of Treatment 2x/Week Duration of Treatment 3 months Plan of Care Start Date 03/11/21 Plan of Care End Date 06/10/21 Therapeutic Interventions Therapeutic Interventions Aquatic Therapy,Balance Training,Gait Training,Home Exercise Program,Joint Mobilizations,Manual Therapy, Neuromuscular Re-education, Patient/Caregiver Education, Self-Care/Home Management,Soft Tissue Mobilization,Taping, Therapeutic Activities, Therapeutic Exercises Modalities Cold Pack/Ice Massage,Electric Stimulation,Hot Packs, Ultrasound Next Visit Focus/Plan Next Note Type Treatment Note Next Visit Plan Work on mini squats and lifting objects from raised surface, cont with stretches, work on core faciliation & hip stability
--- NOTE | 2021-05-06 13:46 | PT.OTN ---
Current Diagnoses Spondylolisthesis, lumbar region (05/06/21) Other spondylosis with radiculopathy, lumbosacral region (05/06/21) Spinal stenosis, lumbar region without neurogenic claudication (05/06/21) Difficulty in walking, not elsewhere classified (05/06/21) Abnormal posture (05/06/21) Weakness (05/06/21) Physical Therapy Treatment Note PT-OP-A Visit Information Start: 03/10/21 16:52 Freq: Status: Active Protocol: Document 05/06/21 12:58 [facility] (Rec: 05/06/21 13:46 [facility] [id number]) Out-Patient Physical Therapy Visit Information Visit Information Visit Type Treatment Note Visit Note 07/08 Visit Start Time 13:00 Visit Stop Time 13:41 Total Visit Minutes 41 Visit Number 17 Number of INSTRUMENT MECHANIC [employer] SYSTEM Visits 0 PT-OP-B Current Condition Start: 03/10/21 16:52 Freq: Status: Active Protocol: Document 03/11/21 08:59 [facility] (Rec: 03/11/21 09:45 [facility] [id number]) Current Condition History of Current Condition Onset Date TLIF 10/07/20 Current Complaints back pain History of Current Condition Pt had years and years of back pain which led her to surgery . She had a surgery by Dr. Longoria several years ago and it was compressing more so had L3-L4 TLIF 10/07/20. Pt went to rehab for 6 weeks and did HH PT and OT until January and feels like she lost all her progress. Pt was not having any issue getting up out of bed or a chair and now is. She had more consistant pain then but now it changes on a daily basis. Some days the entire area of the surgery hurts but last couple days, it has just been painful on L side. Pt reports prior to surgery, she had sciatica into RLE for several years, but now just feeling tight in BLEs. She tries to do stretches before gets out of bed, but it still bothers her. Pt has been doing HH exercises consistanly. She walked 4 miles before surgery but now if she gets 1/2 mile, she feels jessica d/t pain stopping her beofre that. Pt has been getting out for little walks (to mailbox, errands, etc). pt did not use cane prior to surgery. Pt reports 2 falls d/t dizziness when she first got home. Occ lists to L when dizzy when first get up. Prior Treatments and Tests SNF rehab & HH PT, PT prior to surgery for lymphadema (L arm )-pt does think she may have lymphadema in legs too though, and PT for scaitica ( did help) Treatment Goals Patient/Caregiver Goals wants to be able to get back out of bed again, be able to go out and walk more, be able to get rid of the cane. Personal Factors Other Personal Factors That May Effect 2 c-scetions, appy, Therapy/Recovery gallbladder removals, has a diastasis, CHF, lymphedema, liver disease, DM II, dizziness occ PT-OP-C Subjective Start: 03/10/21 16:52 Freq: Status: Active Protocol: Document 05/06/21 12:58 [facility] (Rec: 05/06/21 13:46 [facility] [id number]) OP-PT Subjective Patient Comments Patient Comments Pt reports if she turns too quickly she loses her balance. Frustrated back is still giving her trouble this far out from surgery. Yesterday, she walked 1 mile with a friend and sat down after. Required standing rest break. PT-OP-F Manual Assessment Start: 03/10/21 16:52 Freq: Status: Active Protocol: Document 03/11/21 08:59 [facility] (Rec: 03/11/21 09:45 [facility] [id number]) Manual Assessments Soft Tissue Assessment Soft Tissue Mobility Assessment L>R Glutes, ES & QL PT-OP-G Mobility & Gait Start: 03/10/21 16:52 Freq: Status: Active Protocol: Document 03/11/21 08:59 [facility] (Rec: 03/11/21 09:45 [facility] [id number]) OP Mobility Evaluation Bed Mobility Rolling more difficult R, very segmental in movement Supine to and from Sit log roll in/out, slow and segmental Transfers Sit to Stand hard push from chair w/inc time OP Gait Assessment Comments Gait Comments leaning to L and lat leaning B , very stiff and slow, dec psuh off PT-OP-J Posture/Palpation/Skin Start: 03/10/21 16:52 Freq: Status: Active Protocol: Document 03/11/21 08:59 [facility] (Rec: 03/11/21 09:45 [facility] [id number]) Posture Evaluation Inocencia Postural Classification System Inocencia Postural Classifications Posterior/Posterior Lumbar Protective Mechanism Left AP 0 Lumbar Protective Mechanism Right AP 0 Lumbar Protective Mechanism Left PA 0 Lumbar Protective Mechanism Right PA 0 Comments Posture Comments side bends and rotates left PT-OP-K Range of Motion Start: 03/10/21 16:52 Freq: Status: Active Protocol: Document 03/11/21 08:59 [facility] (Rec: 03/11/21 09:45 [facility] [id number]) Lumbar Spine Range of Motion Lumbar Spine Active Degrees Flexion 30 Extension 18 Rotation Left 38 Rotation Right 12 Lateral Flexion Left 25 Lateral Flexion Right 14 PT-OP-L Special Tests Start: 03/10/21 16:52 Freq: Status: Active Protocol: Document 03/11/21 08:59 [facility] (Rec: 03/11/21 09:45 [facility] [id number]) Special Tests Lumbar Spine Special Tests Straight Leg Raise Test Results L 45 deg pain in buttock w/opp knee bent Comments R 71 HS stretch Slump Test Results positive L PT-OP-M Strength Start: 03/10/21 16:52 Freq: Status: Active Protocol: Document 04/09/21 11:41 [facility] (Rec: 04/09/21 12:14 [facility] [id number]) Hip Strength Hip Manual Muscle Testing Left Flexion (L2) 3+ Fair+ Abduction 3- Fair- External Rotation 4- Good- Internal Rotation 4 Good Right Flexion (L2) 4- Good- Abduction 3 Fair External Rotation 4- Good- Internal Rotation 4 Good Knee Strength Knee Manual Muscle Testing Left Flexion (S2) 4+ Good+ Extension (L3) 4+ Good+ Right Flexion (S2) 4+ Good+ Extension (L3) 4+ Good+ Ankle/Foot Strength Ankle and Foot Manual Muscle Testing Left Dorsiflexion (L4) 5 Normal Plantarflexion (S1) 4+ Good+ Comments PF tested seated B Right Dorsiflexion (L4) 5 Normal Plantarflexion (S1) 4+ Good+ PT-OP-Q Treatments Start: 03/10/21 16:52 Freq: Status: Active Protocol: Document 05/06/21 12:58 [facility] (Rec: 05/06/21 13:46 [facility] [id number]) Cardio Equipment Recumbent Elliptical (Biodex) Duration (Minutes) 7 Resistance 5-6 Seat Position 4 Therapeutic Exercises Standing Exercises squats Standing Exercise Name mini by rail Side bilateral Reps/Minutes 10 Therapeutic Activity Therapeutic Activity posture Name standing posture working in mirror Comments unlock knees, wt even in feet, more neutral trunk (dec L lean) Manual Therapy Treatment Soft Tissue Mobilization lumbar Body Location scars, L ES & QL & focus on L SI joint region Mobilization Type Rolling,Strumming,Sustained Pressure Intensity/Depth Moderate Comments rolling in seated w/fwd flex & s/l glutes Body Location L>R Mobilization Type Rolling,Sustained Pressure Intensity/Depth Moderate Body Position Sidelying Neuro Re-Education Treatment Other Activities core facilitation Comments manual traciton into diagonals for core facilitation PT-OP-T Assessment and Plan Start: 03/10/21 16:52 Freq: Status: Active Protocol: Document 05/06/21 12:58 [facility] (Rec: 05/06/21 13:46 [facility] [id number]) Physical Therapy Assessment Goals activity tolerance Short Term Goal (STG) Pt will be able to walk without cane in house and for short distancesw ith good mechancis. STG Duration achieved Mineral Mixer Goal (LTG) Pt will be able to go for 1 mile walk without cane without more than 2 point pain inc. LTG Duration 06/10/21 Four Impairment RADHA 28/50 Short Term Goal (STG) Pt will imrpove score of RADHA to less than 20/50 to show improved functional ability. 04/09-improved to 23/50 STG Duration 05/08/21 Fpc Goal (LTG) Pt will imrpove score of RADHA to less than 10/50 to show improved functional ability. LTG Duration 06/10/21 Three Impairment transitions Short Term Goal (STG) Pt will be able to roll & do log roll for in/out of bed without difficulty or inc pain . 04/09-improved ability w/less pain STG Duration 05/11/21 Fpc Goal (LTG) Pt wilb e able to do 5 sit to stands with UEs w/o inc pain or difficulty to show imrpoved ability for transitions & improved LE strength LTG Duration 06/10/21 Two Impairment strength Short Term Goal (STG) Pt will be indep w/HEP STG Duration achieved Mineral Mixer Goal (LTG) pt will have at least 4+/5 LE strength B in all planes and 2 /5 LPM to show improved staiblity to allow pt to do typical ADLs without inc pain. 04/09-improving LTG Duration 06/10/21 One Short Term Goal (STG) Pt will improve flex ROM to at least 50 deg in order to allow her to reach for objects w/greater ease. 04/09-slowly improving STG Duration 05/11/21 Assessment Summary Assessment Pt able to ajdust posture to imrpoved postiioning with some cueing. She feels very fwd wehn adjsuted so will requrie cont rep to work on motor control. She was able to do very small squats to start with focus on glutes. Physical Therapy Plan Frequency and Duration Frequency of Treatment 2x/Week Duration of Treatment 3 months Plan of Care Start Date 03/11/21 Plan of Care End Date 06/10/21 Next Visit Focus/Plan Next Note Type Treatment Note Next Visit Plan cont to work on ability to sqaut, work on standing posture & gait, being able to shrimp picker objects off surfaces
--- NOTE | 2021-05-12 14:33 | PT.OTN ---
Current Diagnoses Spondylolisthesis, lumbar region (05/12/21) Other spondylosis with radiculopathy, lumbosacral region (05/12/21) Spinal stenosis, lumbar region without neurogenic claudication (05/12/21) Difficulty in walking, not elsewhere classified (05/12/21) Abnormal posture (05/12/21) Weakness (05/12/21) Physical Therapy Treatment Note PT-OP-A Visit Information Start: 03/10/21 16:52 Freq: Status: Active Protocol: Document 05/12/21 13:05 [facility] (Rec: 05/12/21 14:33 [facility] [id number]) Out-Patient Physical Therapy Visit Information Visit Information Visit Type Treatment Note Visit Note 08/08 Visit Start Time 13:01 Visit Stop Time 13:42 Total Visit Minutes 41 Visit Number 18 Number of SAND SLINGER OPERATOR Visits 0 PT-OP-B Current Condition Start: 03/10/21 16:52 Freq: Status: Active Protocol: Document 03/11/21 08:59 [facility] (Rec: 03/11/21 09:45 [facility] [id number]) Current Condition History of Current Condition Onset Date TLIF 10/07/20 Current Complaints back pain History of Current Condition Pt had years and years of back pain which led her to surgery . She had a surgery by Dr. Longoria several years ago and it was compressing more so had L3-L4 TLIF 10/07/20. Pt went to rehab for 6 weeks and did HH PT and OT until January and feels like she lost all her progress. Pt was not having any issue getting up out of bed or a chair and now is. She had more consistant pain then but now it changes on a daily basis. Some days the entire area of the surgery hurts but last couple days, it has just been painful on L side. Pt reports prior to surgery, she had sciatica into RLE for several years, but now just feeling tight in BLEs. She tries to do stretches before gets out of bed, but it still bothers her. Pt has been doing HH exercises consistanly. She walked 4 miles before surgery but now if she gets 1/2 mile, she feels jessica d/t pain stopping her beofre that. Pt has been getting out for little walks (to mailbox, errands, etc). pt did not use cane prior to surgery. Pt reports 2 falls d/t dizziness when she first got home. Occ lists to L when dizzy when first get up. Prior Treatments and Tests SNF rehab & HH PT, PT prior to surgery for lymphadema (L arm )-pt does think she may have lymphadema in legs too though, and PT for scaitica ( did help) Treatment Goals Patient/Caregiver Goals wants to be able to get back out of bed again, be able to go out and walk more, be able to get rid of the cane. Personal Factors Other Personal Factors That May Effect 2 c-scetions, appy, Therapy/Recovery gallbladder removals, has a diastasis, CHF, lymphedema, liver disease, DM II, dizziness occ PT-OP-C Subjective Start: 03/10/21 16:52 Freq: Status: Active Protocol: Document 05/12/21 13:05 [facility] (Rec: 05/12/21 14:33 [facility] [id number]) OP-PT Subjective Patient Comments Patient Comments Pt reports she had to do a lot of sitting to drive [place] [employer] for a [place]a nd had inc back pain. She idd make herself go to the gym and ride the bike and it was okay . PT-OP-F Manual Assessment Start: 03/10/21 16:52 Freq: Status: Active Protocol: Document 03/11/21 08:59 [facility] (Rec: 03/11/21 09:45 [facility] [id number]) Manual Assessments Soft Tissue Assessment Soft Tissue Mobility Assessment L>R Glutes, ES & QL PT-OP-G Mobility & Gait Start: 03/10/21 16:52 Freq: Status: Active Protocol: Document 03/11/21 08:59 [facility] (Rec: 03/11/21 09:45 [facility] [id number]) OP Mobility Evaluation Bed Mobility Rolling more difficult R, very segmental in movement Supine to and from Sit log roll in/out, slow and segmental Transfers Sit to Stand hard push from chair w/inc time OP Gait Assessment Comments Gait Comments leaning to L and lat leaning B , very stiff and slow, dec psuh off PT-OP-J Posture/Palpation/Skin Start: 03/10/21 16:52 Freq: Status: Active Protocol: Document 03/11/21 08:59 [facility] (Rec: 03/11/21 09:45 [facility] [id number]) Posture Evaluation Inocencia Postural Classification System Inocencia Postural Classifications Posterior/Posterior Lumbar Protective Mechanism Left AP 0 Lumbar Protective Mechanism Right AP 0 Lumbar Protective Mechanism Left PA 0 Lumbar Protective Mechanism Right PA 0 Comments Posture Comments side bends and rotates left PT-OP-K Range of Motion Start: 03/10/21 16:52 Freq: Status: Active Protocol: Document 03/11/21 08:59 [facility] (Rec: 03/11/21 09:45 [facility] [id number]) Lumbar Spine Range of Motion Lumbar Spine Active Degrees Flexion 30 Extension 18 Rotation Left 38 Rotation Right 12 Lateral Flexion Left 25 Lateral Flexion Right 14 PT-OP-L Special Tests Start: 03/10/21 16:52 Freq: Status: Active Protocol: Document 03/11/21 08:59 [facility] (Rec: 03/11/21 09:45 [facility] [id number]) Special Tests Lumbar Spine Special Tests Straight Leg Raise Test Results L 45 deg pain in buttock w/opp knee bent Comments R 71 HS stretch Slump Test Results positive L PT-OP-M Strength Start: 03/10/21 16:52 Freq: Status: Active Protocol: Document 04/09/21 11:41 [facility] (Rec: 04/09/21 12:14 [facility] [id number]) Hip Strength Hip Manual Muscle Testing Left Flexion (L2) 3+ Fair+ Abduction 3- Fair- External Rotation 4- Good- Internal Rotation 4 Good Right Flexion (L2) 4- Good- Abduction 3 Fair External Rotation 4- Good- Internal Rotation 4 Good Knee Strength Knee Manual Muscle Testing Left Flexion (S2) 4+ Good+ Extension (L3) 4+ Good+ Right Flexion (S2) 4+ Good+ Extension (L3) 4+ Good+ Ankle/Foot Strength Ankle and Foot Manual Muscle Testing Left Dorsiflexion (L4) 5 Normal Plantarflexion (S1) 4+ Good+ Comments PF tested seated B Right Dorsiflexion (L4) 5 Normal Plantarflexion (S1) 4+ Good+ PT-OP-Q Treatments Start: 03/10/21 16:52 Freq: Status: Active Protocol: Document 05/12/21 13:05 [facility] (Rec: 05/12/21 14:33 [facility] [id number]) Cardio Equipment Recumbent Elliptical (Biodex) Duration (Minutes) 6 Resistance 6 Seat Position 4 Gym Equipment Shuttle Balance chains red Details fwd & side : WBOS & NBOS Therapeutic Exercises Standing Exercises sidestep Side bilateral Equipment Used yellow band Reps/Minutes 20ft step up Side bilateral Equipment Used 4in step Reps/Minutes 6 Comments no rail use squats Standing Exercise Name mini by rail Side bilateral Reps/Minutes 15 Manual Therapy Treatment Soft Tissue Mobilization lumbar Body Location scars, L ES & QL & focus on L SI joint region Mobilization Type Rolling,Strumming,Sustained Pressure Intensity/Depth Moderate Comments rolling in seated w/fwd flex & s/l PT-OP-T Assessment and Plan Start: 03/10/21 16:52 Freq: Status: Active Protocol: Document 05/12/21 13:05 [facility] (Rec: 05/12/21 14:33 [facility] [id number]) Physical Therapy Assessment Goals activity tolerance Short Term Goal (STG) Pt will be able to walk without cane in house and for short distancesw ith good mechancis. STG Duration achieved Roller Skate Repairer Goal (LTG) Pt will be able to go for 1 mile walk without cane without more than 2 point pain inc. LTG Duration 06/10/21 Four Impairment RADHA 28/50 Short Term Goal (STG) Pt will imrpove score of RADHA to less than 20/50 to show improved functional ability. 04/09-improved to 23/50 STG Duration 05/08/21 Roller Skate Repairer Goal (LTG) Pt will imrpove score of RADHA to less than 10/50 to show improved functional ability. LTG Duration 06/10/21 Three Impairment transitions Short Term Goal (STG) Pt will be able to roll & do log roll for in/out of bed without difficulty or inc pain . 04/09-improved ability w/less pain STG Duration 05/11/21 Halfway Goal (LTG) Pt wilb e able to do 5 sit to stands with UEs w/o inc pain or difficulty to show imrpoved ability for transitions & improved LE strength LTG Duration 06/10/21 Two Impairment strength Short Term Goal (STG) Pt will be indep w/HEP STG Duration achieved Roller Skate Repairer Goal (LTG) pt will have at least 4+/5 LE strength B in all planes and 2 /5 LPM to show improved staiblity to allow pt to do typical ADLs without inc pain. 04/09-improving LTG Duration 06/10/21 One Short Term Goal (STG) Pt will improve flex ROM to at least 50 deg in order to allow her to reach for objects w/greater ease. 04/09-slowly improving STG Duration 05/11/21 Assessment Summary Assessment Pt did well with step ups today without use of rail at all. Plan to cont to work on this d/t pt's dfificulty with curbs now. She did well with balance and did not c/o pain during exercise. Physical Therapy Plan Frequency and Duration Frequency of Treatment 2x/Week Duration of Treatment 3 months Plan of Care Start Date 03/11/21 Plan of Care End Date 06/10/21 Next Visit Focus/Plan Next Note Type Progress Note Next Visit Plan cont to work on ability to sqaut, work on standing posture & gait, being able to slat pickler objects off surfaces
--- NOTE | 2021-05-14 13:58 | PT.OTN ---
Current Diagnoses Spondylolisthesis, lumbar region (05/14/21) Other spondylosis with radiculopathy, lumbosacral region (05/14/21) Spinal stenosis, lumbar region without neurogenic claudication (05/14/21) Difficulty in walking, not elsewhere classified (05/14/21) Abnormal posture (05/14/21) Weakness (05/14/21) Physical Therapy Treatment Note PT-OP-A Visit Information Start: 03/10/21 16:52 Freq: Status: Active Protocol: Document 05/14/21 13:03 [facility] (Rec: 05/14/21 13:58 [facility] [id number]) Out-Patient Physical Therapy Visit Information Visit Information Visit Type Treatment Note Visit Note 12/08 Visit Start Time 13:01 Visit Stop Time 13:45 Total Visit Minutes 44 Visit Number 19 Number of BORING MACHINE OPERATOR DOUBLE END Visits 0 PT-OP-B Current Condition Start: 03/10/21 16:52 Freq: Status: Active Protocol: Document 03/11/21 08:59 [facility] (Rec: 03/11/21 09:45 [facility] [id number]) Current Condition History of Current Condition Onset Date TLIF 10/07/20 Current Complaints back pain History of Current Condition Pt had years and years of back pain which led her to surgery . She had a surgery by Dr. Longoria several years ago and it was compressing more so had L3-L4 TLIF 10/07/20. Pt went to rehab for 6 weeks and did HH PT and OT until January and feels like she lost all her progress. Pt was not having any issue getting up out of bed or a chair and now is. She had more consistant pain then but now it changes on a daily basis. Some days the entire area of the surgery hurts but last couple days, it has just been painful on L side. Pt reports prior to surgery, she had sciatica into RLE for several years, but now just feeling tight in BLEs. She tries to do stretches before gets out of bed, but it still bothers her. Pt has been doing HH exercises consistanly. She walked 4 miles before surgery but now if she gets 1/2 mile, she feels jessica d/t pain stopping her beofre that. Pt has been getting out for little walks (to mailbox, errands, etc). pt did not use cane prior to surgery. Pt reports 2 falls d/t dizziness when she first got home. Occ lists to L when dizzy when first get up. Prior Treatments and Tests SNF rehab & HH PT, PT prior to surgery for lymphadema (L arm )-pt does think she may have lymphadema in legs too though, and PT for scaitica ( did help) Treatment Goals Patient/Caregiver Goals wants to be able to get back out of bed again, be able to go out and walk more, be able to get rid of the cane. Personal Factors Other Personal Factors That May Effect 2 c-scetions, appy, Therapy/Recovery gallbladder removals, has a diastasis, CHF, lymphedema, liver disease, DM II, dizziness occ PT-OP-C Subjective Start: 03/10/21 16:52 Freq: Status: Active Protocol: Document 05/14/21 13:03 [facility] (Rec: 05/14/21 13:58 [facility] [id number]) OP-PT Subjective Patient Comments Patient Comments Pt reports she plans to walk after the session today w/a friend around her block PT-OP-F Manual Assessment Start: 03/10/21 16:52 Freq: Status: Active Protocol: Document 03/11/21 08:59 [facility] (Rec: 03/11/21 09:45 [facility] [id number]) Manual Assessments Soft Tissue Assessment Soft Tissue Mobility Assessment L>R Glutes, ES & QL PT-OP-G Mobility & Gait Start: 03/10/21 16:52 Freq: Status: Active Protocol: Document 03/11/21 08:59 [facility] (Rec: 03/11/21 09:45 [facility] [id number]) OP Mobility Evaluation Bed Mobility Rolling more difficult R, very segmental in movement Supine to and from Sit log roll in/out, slow and segmental Transfers Sit to Stand hard push from chair w/inc time OP Gait Assessment Comments Gait Comments leaning to L and lat leaning B , very stiff and slow, dec psuh off PT-OP-J Posture/Palpation/Skin Start: 03/10/21 16:52 Freq: Status: Active Protocol: Document 03/11/21 08:59 [facility] (Rec: 03/11/21 09:45 [facility] [id number]) Posture Evaluation Inocencia Postural Classification System Inocencia Postural Classifications Posterior/Posterior Lumbar Protective Mechanism Left AP 0 Lumbar Protective Mechanism Right AP 0 Lumbar Protective Mechanism Left PA 0 Lumbar Protective Mechanism Right PA 0 Comments Posture Comments side bends and rotates left PT-OP-K Range of Motion Start: 03/10/21 16:52 Freq: Status: Active Protocol: Document 03/11/21 08:59 [facility] (Rec: 03/11/21 09:45 [facility] [id number]) Lumbar Spine Range of Motion Lumbar Spine Active Degrees Flexion 30 Extension 18 Rotation Left 38 Rotation Right 12 Lateral Flexion Left 25 Lateral Flexion Right 14 PT-OP-L Special Tests Start: 03/10/21 16:52 Freq: Status: Active Protocol: Document 03/11/21 08:59 [facility] (Rec: 03/11/21 09:45 [facility] [id number]) Special Tests Lumbar Spine Special Tests Straight Leg Raise Test Results L 45 deg pain in buttock w/opp knee bent Comments R 71 HS stretch Slump Test Results positive L PT-OP-M Strength Start: 03/10/21 16:52 Freq: Status: Active Protocol: Document 05/14/21 13:03 [facility] (Rec: 05/14/21 13:58 [facility] [id number]) Hip Strength Hip Manual Muscle Testing Left Flexion (L2) 3+ Fair+ Abduction 3+ Fair+ External Rotation 4- Good- Internal Rotation 4 Good Right Flexion (L2) 4- Good- Abduction 3 Fair External Rotation 4 Good Internal Rotation 4 Good Knee Strength Knee Manual Muscle Testing Left Flexion (S2) 5 Normal Extension (L3) 4+ Good+ Right Flexion (S2) 5 Normal Extension (L3) 5 Normal Ankle/Foot Strength Ankle and Foot Manual Muscle Testing Left Dorsiflexion (L4) 5 Normal Plantarflexion (S1) 4+ Good+ Comments PF tested seated B Right Dorsiflexion (L4) 5 Normal Plantarflexion (S1) 5 Normal PT-OP-Q Treatments Start: 03/10/21 16:52 Freq: Status: Active Protocol: Document 05/14/21 13:03 [facility] (Rec: 05/14/21 13:58 [facility] [id number]) Cardio Equipment Recumbent Elliptical (Biodex) Duration (Minutes) 6 Resistance 6-7 Seat Position 4 Gym Equipment Shuttle Recovery leg press Details w/pPT Resistance 75# Shuttle Recovery Platform Stable Reps/Time 2x15 Therapeutic Ball supine Exercise Details attempted bridges w/legs on ball but unalbe seated Ball Size/Color 65 cm Body Position seated Comments 1. 1 min sit to balance 2. small bounces x15 3. circles B x12 ea 4.january b x10 rail prn 5. fwd bend stretch w/deep breaths Therapeutic Exercises Standing Exercises sidestep Side bilateral Equipment Used yellow band Reps/Minutes 20ft Manual Therapy Treatment Soft Tissue Mobilization lumbar Body Location scars, L ES & QL & focus on L SI joint region Mobilization Type Myofascial Release,Rolling, Strumming,Sustained Pressure Intensity/Depth Moderate PT-OP-T Assessment and Plan Start: 03/10/21 16:52 Freq: Status: Active Protocol: Document 05/14/21 13:03 [facility] (Rec: 05/14/21 13:58 [facility] [id number]) Physical Therapy Assessment Goals activity tolerance Short Term Goal (STG) Pt will be able to walk without cane in house and for short distancesw ith good mechancis. STG Duration achieved Solderer Torch Goal (LTG) Pt will be able to go for 1 mile walk without cane without more than 2 point pain inc. 05/14-able to do 1 mile w/5/10 pain LTG Duration 07/14/21 Four Impairment RADHA 28/50 Short Term Goal (STG) Pt will imrpove score of RADHA to less than 20/50 to show improved functional ability. 04/09-improved to 23/50 05/14-22/50 STG Duration 06/07/21 Intermediate Goal (LTG) Pt will imrpove score of RADHA to less than 10/50 to show improved functional ability. LTG Duration 07/14/21 Three Impairment transitions Short Term Goal (STG) Pt will be able to roll & do log roll for in/out of bed without difficulty or inc pain . 04/09-improved ability w/less pain 05/14-difficulty w/bridging STG Duration 06/13/21 Solderer Torch Goal (LTG) Pt wilb e able to do 5 sit to stands with UEs w/o inc pain or difficulty to show imrpoved ability for transitions & improved LE strength 05/14-reports just discomfort LTG Duration 07/14/21 Two Impairment strength Short Term Goal (STG) Pt will be indep w/HEP STG Duration achieved Intermediate Goal (LTG) pt will have at least 4+/5 LE strength B in all planes and 2 /5 LPM to show improved staiblity to allow pt to do typical ADLs without inc pain. 04/09-improving 05/14-slowly improving LTG Duration 07/11/21 One Short Term Goal (STG) Pt will improve flex ROM to at least 50 deg in order to allow her to reach for objects w/greater ease. 04/09-slowly improving 05/14-still very painful STG Duration 06/29/21 Assessment Summary Assessment Pt is making slow but steady progress with therapy with functional gains but is having signficiant pain with mobility still. She was encouraged to discuss this with MD as her pain still limits her ability to stand for any length of time. Physical Therapy Plan Frequency and Duration Frequency of Treatment 1-2x/Week Duration of Treatment 2 months Plan of Care Start Date 05/14/21 Plan of Care End Date 07/11/21 Therapeutic Interventions Therapeutic Interventions Aquatic Therapy,Balance Training,Gait Training,Home Exercise Program,Joint Mobilizations,Manual Therapy, Neuromuscular Re-education, Patient/Caregiver Education, Self-Care/Home Management,Soft Tissue Mobilization,Taping, Therapeutic Activities, Therapeutic Exercises Modalities Cold Pack/Ice Massage,Electric Stimulation,Hot Packs, Ultrasound Next Visit Focus/Plan Next Note Type Treatment Note Next Visit Plan cont to work on ability to sqaut, work on standing posture & gait, being able to case picker objects off surfaces
--- NOTE | 2021-05-14 13:59 | PT.OPPOC ---
Physical, Occupational & Speech Therapy At [facility] Current Diagnoses Spondylolisthesis, lumbar region (05/14/21) Other spondylosis with radiculopathy, lumbosacral region (05/14/21) Spinal stenosis, lumbar region without neurogenic claudication (05/14/21) Difficulty in walking, not elsewhere classified (05/14/21) Abnormal posture (05/14/21) Weakness (05/14/21) Visit Care Team Role Provider Type Radha Smith MD Primary Care Provider Physician Specialty: Family Practice Address: [address] [place] [address], [place], [address] Email: [email or web address] Shlomo Longoria MD Attending Provider Physician Referring Provider Specialty: Orthopedic Surgery Address: [address] [place] [address], [id number] Email: [email or web address] Plan Of Care PT-OP-T Assessment and Plan Start: 03/10/21 16:52 Freq: Status: Active Protocol: Document 05/14/21 13:03 [facility] (Rec: 05/14/21 13:58 [facility] [id number]) Physical Therapy Assessment Goals activity tolerance Short Term Goal (STG) Pt will be able to walk without cane in house and for short distancesw ith good mechancis. STG Duration achieved Mcfp Goal (LTG) Pt will be able to go for 1 mile walk without cane without more than 2 point pain inc. 05/14-able to do 1 mile w/5/10 pain LTG Duration 07/14/21 Four Impairment RADHA 28/50 Short Term Goal (STG) Pt will imrpove score of RADHA to less than 20/50 to show improved functional ability. 04/09-improved to 23/50 05/14-22 STG Duration 06/07/21 Beef Farmer Goal (LTG) Pt will imrpove score of RADHA to less than 10/50 to show improved functional ability. LTG Duration 07/14/21 Three Impairment transitions Short Term Goal (STG) Pt will be able to roll & do log roll for in/out of bed without difficulty or inc pain . 04/09-improved ability w/less pain 05/14-difficulty w/bridging STG Duration 06/13/21 Beef Farmer Goal (LTG) Pt wilb e able to do 5 sit to stands with UEs w/o inc pain or difficulty to show imrpoved ability for transitions & improved LE strength 05/14-reports just discomfort LTG Duration 07/14/21 Two Impairment strength Short Term Goal (STG) Pt will be indep w/HEP STG Duration achieved Mcfp Goal (LTG) pt will have at least 4+/5 LE strength B in all planes and 2 /5 LPM to show improved staiblity to allow pt to do typical ADLs without inc pain. 04/09-improving 05/14-slowly improving LTG Duration 07/11/21 One Short Term Goal (STG) Pt will improve flex ROM to at least 50 deg in order to allow her to reach for objects w/greater ease. 04/09-slowly improving 05/14-still very painful STG Duration 06/29/21 Assessment Summary Assessment Pt is making slow but steady progress with therapy with functional gains but is having signficiant pain with mobility still. She was encouraged to discuss this with MD as her pain still limits her ability to stand for any length of time. Physical Therapy Plan Frequency and Duration Frequency of Treatment 1-2x/Week Duration of Treatment 2 months Plan of Care Start Date 05/14/21 Plan of Care End Date 07/11/21 Therapeutic Interventions Therapeutic Interventions Aquatic Therapy,Balance Training,Gait Training,Home Exercise Program,Joint Mobilizations,Manual Therapy, Neuromuscular Re-education, Patient/Caregiver Education, Self-Care/Home Management,Soft Tissue Mobilization,Taping, Therapeutic Activities, Therapeutic Exercises Modalities Cold Pack/Ice Massage,Electric Stimulation,Hot Packs, Ultrasound Next Visit Focus/Plan Next Note Type Treatment Note Next Visit Plan cont to work on ability to sqaut, work on standing posture & gait, being able to fern picker objects off surfaces Plan of Care Dates Plan of Care Start Date 05/14/21 Plan of Care End Date 07/11/21 Electronically Signed by: aSrah Brito, PT 05/14/21 [id number] Please Sign and Return: I have reviewed this Plan of Care and certify that the skilled therapy services above are required to meet the patient?s needs. Physician Signature Date Printed Name and Credentials Clinical Instructor Signature Printed Name and Credentials
--- NOTE | 2021-05-19 13:47 | PT.OTN ---
Current Diagnoses Spondylolisthesis, lumbar region (05/19/21) Other spondylosis with radiculopathy, lumbosacral region (05/19/21) Spinal stenosis, lumbar region without neurogenic claudication (05/19/21) Difficulty in walking, not elsewhere classified (05/19/21) Abnormal posture (05/19/21) Weakness (05/19/21) Physical Therapy Treatment Note PT-OP-A Visit Information Start: 03/10/21 16:52 Freq: Status: Active Protocol: Document 05/19/21 12:59 [facility] (Rec: 05/19/21 13:47 [facility] [id number]) Out-Patient Physical Therapy Visit Information Visit Information Visit Type Treatment Note Visit Note 01/08 Visit Start Time 13:00 Visit Stop Time 13:42 Total Visit Minutes 42 Visit Number 20 Number of ROOFING CONTRACTOR Visits 0 PT-OP-B Current Condition Start: 03/10/21 16:52 Freq: Status: Active Protocol: Document 03/11/21 08:59 [facility] (Rec: 03/11/21 09:45 [facility] [id number]) Current Condition History of Current Condition Onset Date TLIF 10/07/20 Current Complaints back pain History of Current Condition Pt had years and years of back pain which led her to surgery . She had a surgery by Dr. Longoria several years ago and it was compressing more so had L3-L4 TLIF 10/07/20. Pt went to rehab for 6 weeks and did HH PT and OT until January and feels like she lost all her progress. Pt was not having any issue getting up out of bed or a chair and now is. She had more consistant pain then but now it changes on a daily basis. Some days the entire area of the surgery hurts but last couple days, it has just been painful on L side. Pt reports prior to surgery, she had sciatica into RLE for several years, but now just feeling tight in BLEs. She tries to do stretches before gets out of bed, but it still bothers her. Pt has been doing HH exercises consistanly. She walked 4 miles before surgery but now if she gets 1/2 mile, she feels jessica d/t pain stopping her beofre that. Pt has been getting out for little walks (to mailbox, errands, etc). pt did not use cane prior to surgery. Pt reports 2 falls d/t dizziness when she first got home. Occ lists to L when dizzy when first get up. Prior Treatments and Tests SNF rehab & HH PT, PT prior to surgery for lymphadema (L arm )-pt does think she may have lymphadema in legs too though, and PT for scaitica ( did help) Treatment Goals Patient/Caregiver Goals wants to be able to get back out of bed again, be able to go out and walk more, be able to get rid of the cane. Personal Factors Other Personal Factors That May Effect 2 c-scetions, appy, Therapy/Recovery gallbladder removals, has a diastasis, CHF, lymphedema, liver disease, DM II, dizziness occ PT-OP-C Subjective Start: 03/10/21 16:52 Freq: Status: Active Protocol: Document 05/19/21 12:59 [facility] (Rec: 05/19/21 13:47 [facility] [id number]) OP-PT Subjective Patient Comments Patient Comments Pt reports L calf was torture on Wed and into night and had trouble getting in comfortable in bed. Notes ankles catch sometimes and did it when standign up for session where it catches ant and occ it does it mult times and sometimes just once. Sees MD later this week. Pt reports after walking w/friend, she used her infrared sauna and it did help. PT-OP-F Manual Assessment Start: 03/10/21 16:52 Freq: Status: Active Protocol: Document 03/11/21 08:59 [facility] (Rec: 03/11/21 09:45 [facility] [id number]) Manual Assessments Soft Tissue Assessment Soft Tissue Mobility Assessment L>R Glutes, ES & QL PT-OP-G Mobility & Gait Start: 03/10/21 16:52 Freq: Status: Active Protocol: Document 03/11/21 08:59 [facility] (Rec: 03/11/21 09:45 [facility] [id number]) OP Mobility Evaluation Bed Mobility Rolling more difficult R, very segmental in movement Supine to and from Sit log roll in/out, slow and segmental Transfers Sit to Stand hard push from chair w/inc time OP Gait Assessment Comments Gait Comments leaning to L and lat leaning B , very stiff and slow, dec psuh off PT-OP-J Posture/Palpation/Skin Start: 03/10/21 16:52 Freq: Status: Active Protocol: Document 03/11/21 08:59 [facility] (Rec: 03/11/21 09:45 [facility] [id number]) Posture Evaluation [facility] Postural Classification System [facility] Postural Classifications Posterior/Posterior Lumbar Protective Mechanism Left AP 0 Lumbar Protective Mechanism Right AP 0 Lumbar Protective Mechanism Left PA 0 Lumbar Protective Mechanism Right PA 0 Comments Posture Comments side bends and rotates left PT-OP-K Range of Motion Start: 03/10/21 16:52 Freq: Status: Active Protocol: Document 03/11/21 08:59 [facility] (Rec: 03/11/21 09:45 [facility] [id number]) Lumbar Spine Range of Motion Lumbar Spine Active Degrees Flexion 30 Extension 18 Rotation Left 38 Rotation Right 12 Lateral Flexion Left 25 Lateral Flexion Right 14 PT-OP-L Special Tests Start: 03/10/21 16:52 Freq: Status: Active Protocol: Document 03/11/21 08:59 [facility] (Rec: 03/11/21 09:45 [facility] [id number]) Special Tests Lumbar Spine Special Tests Straight Leg Raise Test Results L 45 deg pain in buttock w/opp knee bent Comments R 71 HS stretch Slump Test Results positive L PT-OP-M Strength Start: 03/10/21 16:52 Freq: Status: Active Protocol: Document 05/14/21 13:03 [facility] (Rec: 05/14/21 13:58 [facility] [id number]) Hip Strength Hip Manual Muscle Testing Left Flexion (L2) 3+ Fair+ Abduction 3+ Fair+ External Rotation 4- Good- Internal Rotation 4 Good Right Flexion (L2) 4- Good- Abduction 3 Fair External Rotation 4 Good Internal Rotation 4 Good Knee Strength Knee Manual Muscle Testing Left Flexion (S2) 5 Normal Extension (L3) 4+ Good+ Right Flexion (S2) 5 Normal Extension (L3) 5 Normal Ankle/Foot Strength Ankle and Foot Manual Muscle Testing Left Dorsiflexion (L4) 5 Normal Plantarflexion (S1) 4+ Good+ Comments PF tested seated B Right Dorsiflexion (L4) 5 Normal Plantarflexion (S1) 5 Normal PT-OP-Q Treatments Start: 03/10/21 16:52 Freq: Status: Active Protocol: Document 05/19/21 12:59 [facility] (Rec: 05/19/21 13:47 [facility] [id number]) Cardio Equipment Recumbent Elliptical (Bi[employer]x) Duration (Minutes) 6 Resistance 7 Seat Position 4 Gym Equipment Therapeutic Ball seated Ball Size/Color 65 cm Body Position seated Comments 1. 30 sec sit to balance 2. small bounces x15 3. circles B x1 ea 4.january b x10 rail prn 5. fwd bend stretch w/deep breaths 6. L2 band rot small range x15 B Therapeutic Exercises Supine Exercises LTR Side bilateral Reps/Minutes 10 Sidelying Exercises open book Side bilateral Reps/Minutes 10 Standing Exercises squats Standing Exercise Name mini by rail Side bilateral Reps/Minutes 20 Manual Therapy Treatment Soft Tissue Mobilization lumbar Body Location scars, L ES & QL & focus on L SI joint region Mobilization Type Myofascial Release,Rolling, Strumming,Sustained Pressure Intensity/Depth Moderate Body Position Sidelying Neuro Re-Education Treatment Balance Activities SLS Details trials in mirror PT-OP-T Assessment and Plan Start: 03/10/21 16:52 Freq: Status: Active Protocol: Document 05/19/21 12:59 [facility] (Rec: 05/19/21 13:47 [facility] [id number]) Physical Therapy Assessment Goals activity tolerance Short Term Goal (STG) Pt will be able to walk without cane in house and for short distancesw ith good mechancis. STG Duration achieved Correction Goal (LTG) Pt will be able to go for 1 mile walk without cane without more than 2 point pain inc. 05/14-able to do 1 mile w/5/10 pain LTG Duration 07/14/21 Four Impairment RADHA 28/50 Short Term Goal (STG) Pt will imrpove score of RADHA to less than 20/50 to show improved functional ability. 04/09-improved to 23/50 05/14-22/50 STG Duration 06/07/21 Correction Goal (LTG) Pt will imrpove score of RADHA to less than 10/50 to show improved functional ability. LTG Duration 07/14/21 Three Impairment transitions Short Term Goal (STG) Pt will be able to roll & do log roll for in/out of bed without difficulty or inc pain . 04/09-improved ability w/less pain 05/14-difficulty w/bridging STG Duration 06/13/21 [employer] Fro[employer] D[employer]ert Goal (LTG) Pt wilb e able to do 5 sit to stands with UEs w/o inc pain or difficulty to show imrpoved ability for transitions & improved LE strength 05/14-reports just discomfort LTG Duration 07/14/21 Two Impairment strength Short Term Goal (STG) Pt will be indep w/HEP STG Duration achieved [employer] D[employer]ert Goal (LTG) pt will have at least 4+/5 LE strength B in all planes and 2 /5 LPM to show improved staiblity to allow pt to do typical ADLs without inc pain. 04/09-improving 05/14-slowly improving LTG Duration 07/11/21 One Short Term Goal (STG) Pt will improve flex ROM to at least 50 deg in order to allow her to reach for objects w/greater ease. 04/09-slowly improving 05/14-still very painful STG Duration 06/29/21 Assessment Summary Assessment Pt did well with strengthening and ROM but did note some difficulty w/R open book d/t R shoulder discomfort. Encouraged to stay in comfortable range and keeping arm in line w/body. She is very limited w/rot Physical Therapy Plan Frequency and Duration Frequency of Treatment 1-2x/Week Duration of Treatment 2 months Plan of Care Start Date 05/14/21 Plan of Care End Date 07/11/21 Next Visit Focus/Plan Next Note Type Treatment Note Next Visit Plan cont to work on ability to sqaut, work on standing posture & gait & hip stability /strength
--- NOTE | 2021-05-22 15:17 | PT.OTN ---
Current Diagnoses Spondylolisthesis, lumbar region (05/22/21) Other spondylosis with radiculopathy, lumbosacral region (05/22/21) Spinal stenosis, lumbar region without neurogenic claudication (05/22/21) Difficulty in walking, not elsewhere classified (05/22/21) Abnormal posture (05/22/21) Weakness (05/22/21) Physical Therapy Treatment Note PT-OP-A Visit Information Start: 03/10/21 16:52 Freq: Status: Active Protocol: Document 05/22/21 13:03 [facility] (Rec: 05/22/21 15:17 [facility] [id number]) Out-Patient Physical Therapy Visit Information Visit Information Visit Type Treatment Note Visit Note 02/05 Visit Start Time 13:01 Visit Stop Time 13:45 Total Visit Minutes 44 Visit Number 21 Number of DIGITAL PROJECT MANAGER Visits 0 PT-OP-B Current Condition Start: 03/10/21 16:52 Freq: Status: Active Protocol: Document 03/11/21 08:59 [facility] (Rec: 03/11/21 09:45 [facility] [id number]) Current Condition History of Current Condition Onset Date TLIF 10/07/20 Current Complaints back pain History of Current Condition Pt had years and years of back pain which led her to surgery . She had a surgery by Dr. Longoria several years ago and it was compressing more so had L3-L4 TLIF 10/07/20. Pt went to rehab for 6 weeks and did HH PT and OT until January and feels like she lost all her progress. Pt was not having any issue getting up out of bed or a chair and now is. She had more consistant pain then but now it changes on a daily basis. Some days the entire area of the surgery hurts but last couple days, it has just been painful on L side. Pt reports prior to surgery, she had sciatica into RLE for several years, but now just feeling tight in BLEs. She tries to do stretches before gets out of bed, but it still bothers her. Pt has been doing HH exercises consistanly. She walked 4 miles before surgery but now if she gets 1/2 mile, she feels jessica d/t pain stopping her beofre that. Pt has been getting out for little walks (to mailbox, errands, etc). pt did not use cane prior to surgery. Pt reports 2 falls d/t dizziness when she first got home. Occ lists to L when dizzy when first get up. Prior Treatments and Tests SNF rehab & HH PT, PT prior to surgery for lymphadema (L arm )-pt does think she may have lymphadema in legs too though, and PT for scaitica ( did help) Treatment Goals Patient/Caregiver Goals wants to be able to get back out of bed again, be able to go out and walk more, be able to get rid of the cane. Personal Factors Other Personal Factors That May Effect 2 c-scetions, appy, Therapy/Recovery gallbladder removals, has a diastasis, CHF, lymphedema, liver disease, DM II, dizziness occ PT-OP-C Subjective Start: 03/10/21 16:52 Freq: Status: Active Protocol: Document 05/22/21 13:03 [facility] (Rec: 05/22/21 15:17 [facility] [id number]) OP-PT Subjective Patient Comments Patient Comments Pt reports she walked about 2 miles this AM which she felt like was overdoing it. Her back was sore and hip was pinched. PT-OP-F Manual Assessment Start: 03/10/21 16:52 Freq: Status: Active Protocol: Document 03/11/21 08:59 [facility] (Rec: 03/11/21 09:45 [facility] [id number]) Manual Assessments Soft Tissue Assessment Soft Tissue Mobility Assessment L>R Glutes, ES & QL PT-OP-G Mobility & Gait Start: 03/10/21 16:52 Freq: Status: Active Protocol: Document 03/11/21 08:59 [facility] (Rec: 03/11/21 09:45 [facility] [id number]) OP Mobility Evaluation Bed Mobility Rolling more difficult R, very segmental in movement Supine to and from Sit log roll in/out, slow and segmental Transfers Sit to Stand hard push from chair w/inc time OP Gait Assessment Comments Gait Comments leaning to L and lat leaning B , very stiff and slow, dec psuh off PT-OP-J Posture/Palpation/Skin Start: 03/10/21 16:52 Freq: Status: Active Protocol: Document 03/11/21 08:59 [facility] (Rec: 03/11/21 09:45 [facility] [id number]) Posture Evaluation [facility] Postural Classification System [facility] Postural Classifications Posterior/Posterior Lumbar Protective Mechanism Left AP 0 Lumbar Protective Mechanism Right AP 0 Lumbar Protective Mechanism Left PA 0 Lumbar Protective Mechanism Right PA 0 Comments Posture Comments side bends and rotates left PT-OP-K Range of Motion Start: 03/10/21 16:52 Freq: Status: Active Protocol: Document 03/11/21 08:59 [facility] (Rec: 03/11/21 09:45 [facility] [id number]) Lumbar Spine Range of Motion Lumbar Spine Active Degrees Flexion 30 Extension 18 Rotation Left 38 Rotation Right 12 Lateral Flexion Left 25 Lateral Flexion Right 14 PT-OP-L Special Tests Start: 03/10/21 16:52 Freq: Status: Active Protocol: Document 03/11/21 08:59 [facility] (Rec: 03/11/21 09:45 [facility] [id number]) Special Tests Lumbar Spine Special Tests Straight Leg Raise Test Results L 45 deg pain in buttock w/opp knee bent Comments R 71 HS stretch Slump Test Results positive L PT-OP-M Strength Start: 03/10/21 16:52 Freq: Status: Active Protocol: Document 05/14/21 13:03 [facility] (Rec: 05/14/21 13:58 [facility] [id number]) Hip Strength Hip Manual Muscle Testing Left Flexion (L2) 3+ Fair+ Abduction 3+ Fair+ External Rotation 4- Good- Internal Rotation 4 Good Right Flexion (L2) 4- Good- Abduction 3 Fair External Rotation 4 Good Internal Rotation 4 Good Knee Strength Knee Manual Muscle Testing Left Flexion (S2) 5 Normal Extension (L3) 4+ Good+ Right Flexion (S2) 5 Normal Extension (L3) 5 Normal Ankle/Foot Strength Ankle and Foot Manual Muscle Testing Left Dorsiflexion (L4) 5 Normal Plantarflexion (S1) 4+ Good+ Comments PF tested seated B Right Dorsiflexion (L4) 5 Normal Plantarflexion (S1) 5 Normal PT-OP-Q Treatments Start: 03/10/21 16:52 Freq: Status: Active Protocol: Document 05/22/21 13:03 [facility] (Rec: 05/22/21 15:17 [facility] [id number]) Cardio Equipment Recumbent Elliptical ([employer]) Duration (Minutes) 6 Resistance 7 Seat Position 4 Therapeutic Exercises Standing Exercises squats Standing Exercise Name mini by rail Side bilateral Reps/Minutes 20 Manual Therapy Treatment Soft Tissue Mobilization visceral Body Location L to R lumbar Body Location scars, L ES & QL & focus on L SI joint region Mobilization Type Myofascial Release,Rolling, Strumming,Sustained Pressure Intensity/Depth Moderate Body Position Sitting Comments w/flex Joint Mobilizations hip Joint L Direction inf FM Self-Care/Home Management Treatment Education Other Education edu re: her cont slow progress and will cont PT untill no longer progressing and discsusse dprogress with her mobility and strenth and discussed viscerla mobility improrrtance PT-OP-T Assessment and Plan Start: 03/10/21 16:52 Freq: Status: Active Protocol: Document 05/22/21 13:03 [facility] (Rec: 05/22/21 15:17 [facility] [id number]) Physical Therapy Assessment Goals activity tolerance Short Term Goal (STG) Pt will be able to walk without cane in house and for short distancesw ith good mechancis. STG Duration achieved Credit Risk Analyst Goal (LTG) Pt will be able to go for 1 mile walk without cane without more than 2 point pain inc. 05/14-able to do 1 mile w/5/10 pain LTG Duration 07/14/21 Four Impairment RADHA 28/50 Short Term Goal (STG) Pt will imrpove score of RADHA to less than 20/50 to show improved functional ability. 04/09-improved to 23/50 05/14-22/50 STG Duration 06/07/21 Senior Living Goal (LTG) Pt will imrpove score of RADHA to less than 10/50 to show improved functional ability. LTG Duration 07/14/21 Three Impairment transitions Short Term Goal (STG) Pt will be able to roll & do log roll for in/out of bed without difficulty or inc pain . 04/09-improved ability w/less pain 05/14-difficulty w/bridging STG Duration 06/13/21 Senior Living Goal (LTG) Pt wilb e able to do 5 sit to stands with UEs w/o inc pain or difficulty to show imrpoved ability for transitions & improved LE strength 05/14-reports just discomfort LTG Duration 07/14/21 Two Impairment strength Short Term Goal (STG) Pt will be indep w/HEP STG Duration achieved Credit Risk Analyst Goal (LTG) pt will have at least 4+/5 LE strength B in all planes and 2 /5 LPM to show improved staiblity to allow pt to do typical ADLs without inc pain. 04/09-improving 05/14-slowly improving LTG Duration 07/11/21 One Short Term Goal (STG) Pt will improve flex ROM to at least 50 deg in order to allow her to reach for objects w/greater ease. 04/09-slowly improving 05/14-still very painful STG Duration 06/29/21 Assessment Summary Assessment Pt is improving with squats and we discussed how she is progressing that it is just slow. She felt relief with the inf hip mobs Physical Therapy Plan Frequency and Duration Frequency of Treatment 1-2x/Week Duration of Treatment 2 months Plan of Care Start Date 05/14/21 Plan of Care End Date 07/11/21 Next Visit Focus/Plan Next Note Type Treatment Note Next Visit Plan cont to work on ability to sqaut, work on standing posture & gait & hip stability /strength
--- NOTE | 2021-05-26 13:53 | PT.OTN ---
Current Diagnoses Spondylolisthesis, lumbar region (05/26/21) Other spondylosis with radiculopathy, lumbosacral region (05/26/21) Spinal stenosis, lumbar region without neurogenic claudication (05/26/21) Difficulty in walking, not elsewhere classified (05/26/21) Abnormal posture (05/26/21) Weakness (05/26/21) Physical Therapy Treatment Note PT-OP-A Visit Information Start: 03/10/21 16:52 Freq: Status: Active Protocol: Document 05/26/21 13:10 [facility] (Rec: 05/26/21 13:52 [facility] [id number]) Out-Patient Physical Therapy Visit Information Visit Information Visit Type Treatment Note Visit Note 03/08 Visit Start Time 13:00 Visit Stop Time 13:45 Total Visit Minutes 45 Visit Number 22 Number of WIRE PREPARATION MACHINE TENDER Visits 0 PT-OP-B Current Condition Start: 03/10/21 16:52 Freq: Status: Active Protocol: Document 03/11/21 08:59 [facility] (Rec: 03/11/21 09:45 [facility] [id number]) Current Condition History of Current Condition Onset Date TLIF 10/07/20 Current Complaints back pain History of Current Condition Pt had years and years of back pain which led her to surgery . She had a surgery by Dr. Longoria several years ago and it was compressing more so had L3-L4 TLIF 10/07/20. Pt went to rehab for 6 weeks and did HH PT and OT until January and feels like she lost all her progress. Pt was not having any issue getting up out of bed or a chair and now is. She had more consistant pain then but now it changes on a daily basis. Some days the entire area of the surgery hurts but last couple days, it has just been painful on L side. Pt reports prior to surgery, she had sciatica into RLE for several years, but now just feeling tight in BLEs. She tries to do stretches before gets out of bed, but it still bothers her. Pt has been doing HH exercises consistanly. She walked 4 miles before surgery but now if she gets 1/2 mile, she feels jessica d/t pain stopping her beofre that. Pt has been getting out for little walks (to mailbox, errands, etc). pt did not use cane prior to surgery. Pt reports 2 falls d/t dizziness when she first got home. Occ lists to L when dizzy when first get up. Prior Treatments and Tests SNF rehab & HH PT, PT prior to surgery for lymphadema (L arm )-pt does think she may have lymphadema in legs too though, and PT for scaitica ( did help) Treatment Goals Patient/Caregiver Goals wants to be able to get back out of bed again, be able to go out and walk more, be able to get rid of the cane. Personal Factors Other Personal Factors That May Effect 2 c-scetions, appy, Therapy/Recovery gallbladder removals, has a diastasis, CHF, lymphedema, liver disease, DM II, dizziness occ PT-OP-C Subjective Start: 03/10/21 16:52 Freq: Status: Active Protocol: Document 05/26/21 13:10 [facility] (Rec: 05/26/21 13:52 [facility] [id number]) OP-PT Subjective Patient Comments Patient Comments Pt reports she ended up doing 2.9 miles byt the end of the day thrusday which was too much. L SI region was sore after that and still is a bit. Notes she plans to walk the beach w/ later today PT-OP-F Manual Assessment Start: 03/10/21 16:52 Freq: Status: Active Protocol: Document 03/11/21 08:59 [facility] (Rec: 03/11/21 09:45 [facility] [id number]) Manual Assessments Soft Tissue Assessment Soft Tissue Mobility Assessment L>R Glutes, ES & QL PT-OP-G Mobility & Gait Start: 03/10/21 16:52 Freq: Status: Active Protocol: Document 03/11/21 08:59 [facility] (Rec: 03/11/21 09:45 [facility] [id number]) OP Mobility Evaluation Bed Mobility Rolling more difficult R, very segmental in movement Supine to and from Sit log roll in/out, slow and segmental Transfers Sit to Stand hard push from chair w/inc time OP Gait Assessment Comments Gait Comments leaning to L and lat leaning B , very stiff and slow, dec psuh off PT-OP-J Posture/Palpation/Skin Start: 03/10/21 16:52 Freq: Status: Active Protocol: Document 03/11/21 08:59 [facility] (Rec: 03/11/21 09:45 [facility] [id number]) Posture Evaluation Inocencia Postural Classification System Inocencia Postural Classifications Posterior/Posterior Lumbar Protective Mechanism Left AP 0 Lumbar Protective Mechanism Right AP 0 Lumbar Protective Mechanism Left PA 0 Lumbar Protective Mechanism Right PA 0 Comments Posture Comments side bends and rotates left PT-OP-K Range of Motion Start: 03/10/21 16:52 Freq: Status: Active Protocol: Document 03/11/21 08:59 [facility] (Rec: 03/11/21 09:45 [facility] [id number]) Lumbar Spine Range of Motion Lumbar Spine Active Degrees Flexion 30 Extension 18 Rotation Left 38 Rotation Right 12 Lateral Flexion Left 25 Lateral Flexion Right 14 PT-OP-L Special Tests Start: 03/10/21 16:52 Freq: Status: Active Protocol: Document 03/11/21 08:59 [facility] (Rec: 03/11/21 09:45 [facility] [id number]) Special Tests Lumbar Spine Special Tests Straight Leg Raise Test Results L 45 deg pain in buttock w/opp knee bent Comments R 71 HS stretch Slump Test Results positive L PT-OP-M Strength Start: 03/10/21 16:52 Freq: Status: Active Protocol: Document 05/14/21 13:03 [facility] (Rec: 05/14/21 13:58 [facility] [id number]) Hip Strength Hip Manual Muscle Testing Left Flexion (L2) 3+ Fair+ Abduction 3+ Fair+ External Rotation 4- Good- Internal Rotation 4 Good Right Flexion (L2) 4- Good- Abduction 3 Fair External Rotation 4 Good Internal Rotation 4 Good Knee Strength Knee Manual Muscle Testing Left Flexion (S2) 5 Normal Extension (L3) 4+ Good+ Right Flexion (S2) 5 Normal Extension (L3) 5 Normal Ankle/Foot Strength Ankle and Foot Manual Muscle Testing Left Dorsiflexion (L4) 5 Normal Plantarflexion (S1) 4+ Good+ Comments PF tested seated B Right Dorsiflexion (L4) 5 Normal Plantarflexion (S1) 5 Normal PT-OP-Q Treatments Start: 03/10/21 16:52 Freq: Status: Active Protocol: Document 05/26/21 13:10 [facility] (Rec: 05/26/21 13:52 [facility] [id number]) Gym Equipment Shuttle Recovery leg press Details w/pPT Resistance 75# Shuttle Recovery Platform Stable Reps/Time 2x15 Therapeutic Ball seated Ball Size/Color 65 cm Body Position seated Comments 1. 30 sec sit to balance 2. small bounces x15 3. circles B x10ea 4.january b x10 rail prn 5. fwd bend stretch w/deep breaths Manual Therapy Treatment Soft Tissue Mobilization visceral Body Location L to R Comments w/LTR lumbar Body Location scars, L ES & QL & focus on L SI joint region Mobilization Type Myofascial Release,Rolling, Strumming,Sustained Pressure Intensity/Depth Moderate Comments s/l and prone Joint Mobilizations innominate Joint L Direction ER & cadual FM sacrum Joint LUPA Grade I Comments w/hip er/ir hip Joint L Direction inf and hip on axis ER FM PT-OP-T Assessment and Plan Start: 03/10/21 16:52 Freq: Status: Active Protocol: Document 05/26/21 13:10 [facility] (Rec: 05/26/21 13:52 [facility] [id number]) Physical Therapy Assessment Goals activity tolerance Short Term Goal (STG) Pt will be able to walk without cane in house and for short distancesw ith good mechancis. STG Duration achieved Traffic Control Operator Goal (LTG) Pt will be able to go for 1 mile walk without cane without more than 2 point pain inc. 05/14-able to do 1 mile w/5/10 pain LTG Duration 07/14/21 Four Impairment RADHA 28/50 Short Term Goal (STG) Pt will imrpove score of RADHA to less than 20/50 to show improved functional ability. 04/09-improved to 23/50 05/14-22/50 STG Duration 06/07/21 Traffic Control Operator Goal (LTG) Pt will imrpove score of RADHA to less than 10/50 to show improved functional ability. LTG Duration 07/14/21 Three Impairment transitions Short Term Goal (STG) Pt will be able to roll & do log roll for in/out of bed without difficulty or inc pain . 04/09-improved ability w/less pain 05/14-difficulty w/bridging STG Duration 06/13/21 Traffic Control Operator Goal (LTG) Pt wilb e able to do 5 sit to stands with UEs w/o inc pain or difficulty to show imrpoved ability for transitions & improved LE strength 05/14-reports just discomfort LTG Duration 07/14/21 Two Impairment strength Short Term Goal (STG) Pt will be indep w/HEP STG Duration achieved Traffic Control Operator Goal (LTG) pt will have at least 4+/5 LE strength B in all planes and 2 /5 LPM to show improved staiblity to allow pt to do typical ADLs without inc pain. 04/09-improving 05/14-slowly improving LTG Duration 07/11/21 One Short Term Goal (STG) Pt will improve flex ROM to at least 50 deg in order to allow her to reach for objects w/greater ease. 04/09-slowly improving 05/14-still very painful STG Duration 06/29/21 Assessment Summary Assessment Pt encouraged to use walking sticks when walking at the beach w/ and stay hydrated. Cont relief w/hip inf glide. Pt has lack of scar mobility at caudal end of new scar and cranial end of old scar and reports pull when doing soft tissue work w/ tissue Physical Therapy Plan Frequency and Duration Frequency of Treatment 1-2x/Week Duration of Treatment 2 months Plan of Care Start Date 05/14/21 Plan of Care End Date 07/11/21 Next Visit Focus/Plan Next Note Type Treatment Note Next Visit Plan cont to work on ability to sqaut, work on standing posture & gait & hip stability /strength
--- NOTE | 2021-05-28 14:16 | PT.OTN ---
Current Diagnoses Spondylolisthesis, lumbar region (05/28/21) Other spondylosis with radiculopathy, lumbosacral region (05/28/21) Spinal stenosis, lumbar region without neurogenic claudication (05/28/21) Difficulty in walking, not elsewhere classified (05/28/21) Abnormal posture (05/28/21) Weakness (05/28/21) Physical Therapy Treatment Note PT-OP-A Visit Information Start: 03/10/21 16:52 Freq: Status: Active Protocol: Document 05/28/21 13:07 [facility] (Rec: 05/28/21 14:16 [facility] [id number]) Out-Patient Physical Therapy Visit Information Visit Information Visit Type Treatment Note Visit Note 04/07 Visit Start Time 13:02 Visit Stop Time 13:45 Total Visit Minutes 43 Visit Number 23 Number of BOATWRIGHT Visits 0 PT-OP-B Current Condition Start: 03/10/21 16:52 Freq: Status: Active Protocol: Document 03/11/21 08:59 [facility] (Rec: 03/11/21 09:45 [facility] [id number]) Current Condition History of Current Condition Onset Date TLIF 10/07/20 Current Complaints back pain History of Current Condition Pt had years and years of back pain which led her to surgery . She had a surgery by Dr. Longoria several years ago and it was compressing more so had L3-L4 TLIF 10/07/20. Pt went to rehab for 6 weeks and did HH PT and OT until January and feels like she lost all her progress. Pt was not having any issue getting up out of bed or a chair and now is. She had more consistant pain then but now it changes on a daily basis. Some days the entire area of the surgery hurts but last couple days, it has just been painful on L side. Pt reports prior to surgery, she had sciatica into RLE for several years, but now just feeling tight in BLEs. She tries to do stretches before gets out of bed, but it still bothers her. Pt has been doing HH exercises consistanly. She walked 4 miles before surgery but now if she gets 1/2 mile, she feels jessica d/t pain stopping her beofre that. Pt has been getting out for little walks (to mailbox, errands, etc). pt did not use cane prior to surgery. Pt reports 2 falls d/t dizziness when she first got home. Occ lists to L when dizzy when first get up. Prior Treatments and Tests SNF rehab & HH PT, PT prior to surgery for lymphadema (L arm )-pt does think she may have lymphadema in legs too though, and PT for scaitica ( did help) Treatment Goals Patient/Caregiver Goals wants to be able to get back out of bed again, be able to go out and walk more, be able to get rid of the cane. Personal Factors Other Personal Factors That May Effect 2 c-scetions, appy, Therapy/Recovery gallbladder removals, has a diastasis, CHF, lymphedema, liver disease, DM II, dizziness occ PT-OP-C Subjective Start: 03/10/21 16:52 Freq: Status: Active Protocol: Document 05/28/21 13:07 [facility] (Rec: 05/28/21 14:16 [facility] [id number]) OP-PT Subjective Patient Comments Patient Comments Pt reports doing bed exercises at home but hasn't walked d/t heat PT-OP-F Manual Assessment Start: 03/10/21 16:52 Freq: Status: Active Protocol: Document 03/11/21 08:59 [facility] (Rec: 03/11/21 09:45 [facility] [id number]) Manual Assessments Soft Tissue Assessment Soft Tissue Mobility Assessment L>R Glutes, ES & QL PT-OP-G Mobility & Gait Start: 03/10/21 16:52 Freq: Status: Active Protocol: Document 03/11/21 08:59 [facility] (Rec: 03/11/21 09:45 [facility] [id number]) OP Mobility Evaluation Bed Mobility Rolling more difficult R, very segmental in movement Supine to and from Sit log roll in/out, slow and segmental Transfers Sit to Stand hard push from chair w/inc time OP Gait Assessment Comments Gait Comments leaning to L and lat leaning B , very stiff and slow, dec psuh off PT-OP-J Posture/Palpation/Skin Start: 03/10/21 16:52 Freq: Status: Active Protocol: Document 03/11/21 08:59 [facility] (Rec: 03/11/21 09:45 [facility] [id number]) Posture Evaluation Inocencia Postural Classification System Inocencia Postural Classifications Posterior/Posterior Lumbar Protective Mechanism Left AP 0 Lumbar Protective Mechanism Right AP 0 Lumbar Protective Mechanism Left PA 0 Lumbar Protective Mechanism Right PA 0 Comments Posture Comments side bends and rotates left PT-OP-K Range of Motion Start: 03/10/21 16:52 Freq: Status: Active Protocol: Document 03/11/21 08:59 [facility] (Rec: 03/11/21 09:45 [facility] [id number]) Lumbar Spine Range of Motion Lumbar Spine Active Degrees Flexion 30 Extension 18 Rotation Left 38 Rotation Right 12 Lateral Flexion Left 25 Lateral Flexion Right 14 PT-OP-L Special Tests Start: 03/10/21 16:52 Freq: Status: Active Protocol: Document 03/11/21 08:59 [facility] (Rec: 03/11/21 09:45 [facility] [id number]) Special Tests Lumbar Spine Special Tests Straight Leg Raise Test Results L 45 deg pain in buttock w/opp knee bent Comments R 71 HS stretch Slump Test Results positive L PT-OP-M Strength Start: 03/10/21 16:52 Freq: Status: Active Protocol: Document 05/14/21 13:03 [facility] (Rec: 05/14/21 13:58 [facility] [id number]) Hip Strength Hip Manual Muscle Testing Left Flexion (L2) 3+ Fair+ Abduction 3+ Fair+ External Rotation 4- Good- Internal Rotation 4 Good Right Flexion (L2) 4- Good- Abduction 3 Fair External Rotation 4 Good Internal Rotation 4 Good Knee Strength Knee Manual Muscle Testing Left Flexion (S2) 5 Normal Extension (L3) 4+ Good+ Right Flexion (S2) 5 Normal Extension (L3) 5 Normal Ankle/Foot Strength Ankle and Foot Manual Muscle Testing Left Dorsiflexion (L4) 5 Normal Plantarflexion (S1) 4+ Good+ Comments PF tested seated B Right Dorsiflexion (L4) 5 Normal Plantarflexion (S1) 5 Normal PT-OP-Q Treatments Start: 03/10/21 16:52 Freq: Status: Active Protocol: Document 05/28/21 13:07 [facility] (Rec: 05/28/21 14:16 [facility] [id number]) Cardio Equipment Recumbent Elliptical (Biodex) Duration (Minutes) 6 Resistance 7 Seat Position 4 Gym Equipment Shuttle Recovery leg press Details w/pPT Resistance 75# Shuttle Recovery Platform Stable Reps/Time 2x15 Therapeutic Exercises Sidelying Exercises Hip ABD Side bilateral Reps/Minutes 10 Comments cued TA facilitation for trunk stability during ROM Clamshells Side bilateral Reps/Minutes 10 Comments cued TA facilitation for trunk stability during ROM Standing Exercises press out Side bilateral Equipment Used Lvl 1 band 2 straps Reps/Minutes 15 sidestep Standing Exercise Name w/band in hands in front Side bilateral Equipment Used 2 strapslvl 1 band Reps/Minutes 10 Manual Therapy Treatment Soft Tissue Mobilization iliacus Body Location L Mobilization Type Sustained Pressure Comments w/hip IR/ER visceral Body Location L to R Comments w/LTR Joint Mobilizations hip Joint L Direction inf FM PT-OP-T Assessment and Plan Start: 03/10/21 16:52 Freq: Status: Active Protocol: Document 05/28/21 13:07 [facility] (Rec: 05/28/21 14:16 [facility] [id number]) Physical Therapy Assessment Goals activity tolerance Short Term Goal (STG) Pt will be able to walk without cane in house and for short distancesw ith good mechancis. STG Duration achieved Mcc Goal (LTG) Pt will be able to go for 1 mile walk without cane without more than 2 point pain inc. 05/14-able to do 1 mile w/5/10 pain LTG Duration 07/14/21 Four Impairment RADHA 28/50 Short Term Goal (STG) Pt will imrpove score of RADHA to less than 20/50 to show improved functional ability. 04/09-improved to 23/50 05/14-22/50 STG Duration 06/07/21 Mcc Goal (LTG) Pt will imrpove score of RADHA to less than 10/50 to show improved functional ability. LTG Duration 07/14/21 Three Impairment transitions Short Term Goal (STG) Pt will be able to roll & do log roll for in/out of bed without difficulty or inc pain . 04/09-improved ability w/less pain 05/14-difficulty w/bridging STG Duration 06/13/21 Manager Athletics Goal (LTG) Pt wilb e able to do 5 sit to stands with UEs w/o inc pain or difficulty to show imrpoved ability for transitions & improved LE strength 05/14-reports just discomfort LTG Duration 07/14/21 Two Impairment strength Short Term Goal (STG) Pt will be indep w/HEP STG Duration achieved Manager Athletics Goal (LTG) pt will have at least 4+/5 LE strength B in all planes and 2 /5 LPM to show improved staiblity to allow pt to do typical ADLs without inc pain. 04/09-improving 05/14-slowly improving LTG Duration 07/11/21 One Short Term Goal (STG) Pt will improve flex ROM to at least 50 deg in order to allow her to reach for objects w/greater ease. 04/09-slowly improving 05/14-still very painful STG Duration 06/29/21 Assessment Summary Assessment Pt did well with exercises but still has difficulty w/leg press and needs cues for stabilization w/all exercies. she has significant pull of L hip flexor which likely gives signficiant pull to SI on L Physical Therapy Plan Frequency and Duration Frequency of Treatment 1-2x/Week Duration of Treatment 2 months Plan of Care Start Date 05/14/21 Plan of Care End Date 07/11/21 Next Visit Focus/Plan Next Note Type Treatment Note Next Visit Plan cont to work on ability to sqaut, work on standing posture & gait & hip stability /strength
--- NOTE | 2021-06-03 15:55 | PT.OTN ---
Current Diagnoses Spondylolisthesis, lumbar region (06/03/21) Other spondylosis with radiculopathy, lumbosacral region (06/03/21) Spinal stenosis, lumbar region without neurogenic claudication (06/03/21) Difficulty in walking, not elsewhere classified (06/03/21) Abnormal posture (06/03/21) Weakness (06/03/21) Physical Therapy Treatment Note PT-OP-A Visit Information Start: 03/10/21 16:52 Freq: Status: Active Protocol: Document 06/03/21 11:11 OF (Rec: 06/03/21 15:55 OF [id number]) Out-Patient Physical Therapy Visit Information Visit Information Visit Type Treatment Note Visit Note 05/08 Visit Start Time 10:30 Visit Stop Time 11:11 Total Visit Minutes 41 Precautions Precautions Abdominal surgeries: appendectomy, cholecystectomy Lumbar surgery PT-OP-B Current Condition Start: 03/10/21 16:52 Freq: Status: Active Protocol: Document 03/11/21 08:59 [facility] (Rec: 03/11/21 09:45 [facility] [id number]) Current Condition History of Current Condition Onset Date TLIF 10/07/20 Current Complaints back pain History of Current Condition Pt had years and years of back pain which led her to surgery . She had a surgery by Dr. Longoria several years ago and it was compressing more so had L3-L4 TLIF 10/07/20. Pt went to rehab for 6 weeks and did HH PT and OT until January and feels like she lost all her progress. Pt was not having any issue getting up out of bed or a chair and now is. She had more consistant pain then but now it changes on a daily basis. Some days the entire area of the surgery hurts but last couple days, it has just been painful on L side. Pt reports prior to surgery, she had sciatica into RLE for several years, but now just feeling tight in BLEs. She tries to do stretches before gets out of bed, but it still bothers her. Pt has been doing HH exercises consistanly. She walked 4 miles before surgery but now if she gets 1/2 mile, she feels jessica d/t pain stopping her beofre that. Pt has been getting out for little walks (to mailbox, errands, etc). pt did not use cane prior to surgery. Pt reports 2 falls d/t dizziness when she first got home. Occ lists to L when dizzy when first get up. Prior Treatments and Tests SNF rehab & HH PT, PT prior to surgery for lymphadema (L arm )-pt does think she may have lymphadema in legs too though, and PT for scaitica ( did help) Treatment Goals Patient/Caregiver Goals wants to be able to get back out of bed again, be able to go out and walk more, be able to get rid of the cane. Personal Factors Other Personal Factors That May Effect 2 c-scetions, appy, Therapy/Recovery gallbladder removals, has a diastasis, CHF, lymphedema, liver disease, DM II, dizziness occ PT-OP-C Subjective Start: 03/10/21 16:52 Freq: Status: Active Protocol: Document 06/03/21 11:11 OF (Rec: 06/03/21 15:55 OF [id number]) OP-PT Subjective Patient Comments Patient Comments pt states her back has been consistently bothering her, difficulty walking for aerobic exercise Patient Reported Progress Same OP-PT Pain Assessment Pain Assessment Grid Paper Pain Assessment Grid Completed No Location Lower Back Pain Location Details L>R lumbar region Intensity 4 Scale Used 7/10 if does lots of walking Description Aching,Pulling Description- Other stiff Frequency Constant Pain Aggravating Factors Standing,Walking,Bending, Lifting Other Pain Aggravating Factors transitions (sit>stand, roll over, sup>sit) Pain Alleviating Factors Cold,Heat,Sitting PT-OP-F Manual Assessment Start: 03/10/21 16:52 Freq: Status: Active Protocol: Document 03/11/21 08:59 [facility] (Rec: 03/11/21 09:45 [facility] [id number]) Manual Assessments Soft Tissue Assessment Soft Tissue Mobility Assessment L>R Glutes, ES & QL PT-OP-G Mobility & Gait Start: 03/10/21 16:52 Freq: Status: Active Protocol: Document 03/11/21 08:59 [facility] (Rec: 03/11/21 09:45 [facility] [id number]) OP Mobility Evaluation Bed Mobility Rolling more difficult R, very segmental in movement Supine to and from Sit log roll in/out, slow and segmental Transfers Sit to Stand hard push from chair w/inc time OP Gait Assessment Comments Gait Comments leaning to L and lat leaning B , very stiff and slow, dec psuh off PT-OP-J Posture/Palpation/Skin Start: 03/10/21 16:52 Freq: Status: Active Protocol: Document 03/11/21 08:59 [facility] (Rec: 03/11/21 09:45 [facility] [id number]) Posture Evaluation [facility] Postural Classification System Inocencia Postural Classifications Posterior/Posterior Lumbar Protective Mechanism Left AP 0 Lumbar Protective Mechanism Right AP 0 Lumbar Protective Mechanism Left PA 0 Lumbar Protective Mechanism Right PA 0 Comments Posture Comments side bends and rotates left PT-OP-K Range of Motion Start: 03/10/21 16:52 Freq: Status: Active Protocol: Document 03/11/21 08:59 [facility] (Rec: 03/11/21 09:45 [facility] [id number]) Lumbar Spine Range of Motion Lumbar Spine Active Degrees Flexion 30 Extension 18 Rotation Left 38 Rotation Right 12 Lateral Flexion Left 25 Lateral Flexion Right 14 PT-OP-L Special Tests Start: 03/10/21 16:52 Freq: Status: Active Protocol: Document 03/11/21 08:59 [facility] (Rec: 03/11/21 09:45 [facility] [id number]) Special Tests Lumbar Spine Special Tests Straight Leg Raise Test Results L 45 deg pain in buttock w/opp knee bent Comments R 71 HS stretch Slump Test Results positive L PT-OP-M Strength Start: 03/10/21 16:52 Freq: Status: Active Protocol: Document 05/14/21 13:03 [facility] (Rec: 05/14/21 13:58 [facility] [id number]) Hip Strength Hip Manual Muscle Testing Left Flexion (L2) 3+ Fair+ Abduction 3+ Fair+ External Rotation 4- Good- Internal Rotation 4 Good Right Flexion (L2) 4- Good- Abduction 3 Fair External Rotation 4 Good Internal Rotation 4 Good Knee Strength Knee Manual Muscle Testing Left Flexion (S2) 5 Normal Extension (L3) 4+ Good+ Right Flexion (S2) 5 Normal Extension (L3) 5 Normal Ankle/Foot Strength Ankle and Foot Manual Muscle Testing Left Dorsiflexion (L4) 5 Normal Plantarflexion (S1) 4+ Good+ Comments PF tested seated B Right Dorsiflexion (L4) 5 Normal Plantarflexion (S1) 5 Normal PT-OP-Q Treatments Start: 03/10/21 16:52 Freq: Status: Active Protocol: Document 06/03/21 11:11 OF (Rec: 06/03/21 15:55 OF [email or web address]) Cardio Equipment Recumbent Stepper (Sci-Fit) Duration (Minutes) 6 Resistance 4 Seat Position 8 Therapeutic Exercises Supine Exercises LTR Side bilateral Reps/Minutes 10 SKTC Side bilateral Reps/Minutes 30 sec Comments towel bridge Supine Exercise Name mini w/PT LE traction Side bilateral Reps/Minutes 10 Comments glute cues, difficulty to clear hips Piriformis Stretch Supine Exercise Name supine today Side bilateral Reps/Minutes 60 sec ea Pelvic tilt Reps/Minutes 2x10 Sidelying Exercises Hip ABD Side bilateral Reps/Minutes 10 Comments cued TA facilitation for trunk stability during ROM Sitting Exercises calf stretch Sitting Exercise Name gait belt for gastroc, knee flexed soleus Side left Reps/Minutes 30 x 2 Comments painfree ROM Standing Exercises glute Standing Exercise Name set alt Side bilateral Reps/Minutes 15 stretches Standing Exercise Name hip flexor Side bilateral Reps/Minutes 20 sec ea Comments cued PPT and able to perform squats Standing Exercise Name mini by rail Side bilateral Reps/Minutes 3x5 Comments cues for trunk flexion with descent Manual Therapy Treatment Soft Tissue Mobilization lumbar Body Location traction for L LE/Lumbar while sup Mobilization Type Sustained Pressure Intensity/Depth Moderate Comments sup Self-Care/Home Management Treatment Education Patient Education Body Mechanics,Home Exercise Program PT-OP-T Assessment and Plan Start: 03/10/21 16:52 Freq: Status: Active Protocol: Document 06/03/21 11:11 OF (Rec: 06/03/21 15:55 OF [id number]) Physical Therapy Assessment Rehab Potential Rehabilitation Potential Good Evaluation Complexity Number of Personal Factors/Comorbidities 1-2 Number of Body Systems Impaired 1-2 Clinical Presentation at Evaluation Stable Impairments Impairments Gait,Strength Goals activity tolerance Short Term Goal (STG) Pt will be able to walk without cane in house and for short distancesw ith good mechancis. STG Duration achieved Skilled Nursing Goal (LTG) Pt will be able to go for 1 mile walk without cane without more than 2 point pain inc. 05/14-able to do 1 mile w/5/10 pain LTG Duration 07/14/21 Four Impairment RADHA 28/50 Short Term Goal (STG) Pt will imrpove score of RADHA to less than 20/50 to show improved functional ability. 04/09-improved to 23/50 6/16-22/50 STG Duration 06/07/21 Recruiter Manager Goal (LTG) Pt will imrpove score of RADHA to less than 10/50 to show improved functional ability. LTG Duration 07/14/21 Three Impairment transitions Short Term Goal (STG) Pt will be able to roll & do log roll for in/out of bed without difficulty or inc pain . 04/09-improved ability w/less pain 05/14-difficulty w/bridging STG Duration 06/13/21 Skilled Nursing Goal (LTG) Pt wilb e able to do 5 sit to stands with UEs w/o inc pain or difficulty to show imrpoved ability for transitions & improved LE strength 05/14-reports just discomfort LTG Duration 07/14/21 Two Impairment strength Short Term Goal (STG) Pt will be indep w/HEP STG Duration achieved Skilled Nursing Goal (LTG) pt will have at least 4+/5 LE strength B in all planes and 2 /5 LPM to show improved staiblity to allow pt to do typical ADLs without inc pain. 04/09-improving 05/14-slowly improving LTG Duration 07/11/21 One Short Term Goal (STG) Pt will improve flex ROM to at least 50 deg in order to allow her to reach for objects w/greater ease. 04/09-slowly improving 05/14-still very painful STG Duration 06/29/21 Progress Towards Goals Progress Towards Goals Progressing Toward Goals Assessment Summary Assessment Pt responded well to L LE traction, performs sit to stands and squats with improved hip kinematics Physical Therapy Plan Frequency and Duration Frequency of Treatment 1-2x/Week Duration of Treatment 2 months Plan of Care Start Date 05/14/21 Next Visit Focus/Plan Next Note Type Treatment Note Next Visit Plan cont to work on ability to sqaut, work on standing posture & gait & hip stability /strength
--- NOTE | 2021-06-06 12:46 | PT.OTN ---
Current Diagnoses Spondylolisthesis, lumbar region (06/06/21) Other spondylosis with radiculopathy, lumbosacral region (06/06/21) Spinal stenosis, lumbar region without neurogenic claudication (06/06/21) Difficulty in walking, not elsewhere classified (06/06/21) Abnormal posture (06/06/21) Weakness (06/06/21) Physical Therapy Treatment Note PT-OP-A Visit Information Start: 03/10/21 16:52 Freq: Status: Active Protocol: Document 06/06/21 11:51 OF (Rec: 06/06/21 12:46 OF [id number]) Out-Patient Physical Therapy Visit Information Visit Information Visit Type Treatment Note Visit Start Time 11:13 Visit Stop Time 11:51 Total Visit Minutes 38 Visit Number 24 Precautions Precautions Abdominal surgeries: appendectomy, cholecystectomy Lumbar surgery PT-OP-B Current Condition Start: 03/10/21 16:52 Freq: Status: Active Protocol: Document 03/11/21 08:59 [facility] (Rec: 03/11/21 09:45 [facility] [id number]) Current Condition History of Current Condition Onset Date TLIF 10/07/20 Current Complaints back pain History of Current Condition Pt had years and years of back pain which led her to surgery . She had a surgery by Dr. Longoria several years ago and it was compressing more so had L3-L4 TLIF 10/07/20. Pt went to rehab for 6 weeks and did HH PT and OT until January and feels like she lost all her progress. Pt was not having any issue getting up out of bed or a chair and now is. She had more consistant pain then but now it changes on a daily basis. Some days the entire area of the surgery hurts but last couple days, it has just been painful on L side. Pt reports prior to surgery, she had sciatica into RLE for several years, but now just feeling tight in BLEs. She tries to do stretches before gets out of bed, but it still bothers her. Pt has been doing HH exercises consistanly. She walked 4 miles before surgery but now if she gets 1/2 mile, she feels jessica d/t pain stopping her beofre that. Pt has been getting out for little walks (to mailbox, errands, etc). pt did not use cane prior to surgery. Pt reports 2 falls d/t dizziness when she first got home. Occ lists to L when dizzy when first get up. Prior Treatments and Tests SNF rehab & HH PT, PT prior to surgery for lymphadema (L arm )-pt does think she may have lymphadema in legs too though, and PT for scaitica ( did help) Treatment Goals Patient/Caregiver Goals wants to be able to get back out of bed again, be able to go out and walk more, be able to get rid of the cane. Personal Factors Other Personal Factors That May Effect 2 c-scetions, appy, Therapy/Recovery gallbladder removals, has a diastasis, CHF, lymphedema, liver disease, DM II, dizziness occ PT-OP-C Subjective Start: 03/10/21 16:52 Freq: Status: Active Protocol: Document 06/06/21 11:51 OF (Rec: 06/06/21 12:46 OF [id number]) OP-PT Subjective Patient Comments Patient Comments pt states her L flank is painful Patient Reported Progress Same OP-PT Pain Assessment Pain Assessment Grid Paper Pain Assessment Grid Completed No Location Lower Back Pain Location Details L>R lumbar region Intensity 4 Scale Used 7/10 if does lots of walking Description Aching,Pulling,Sharp Description- Other stiff Frequency Frequent Pain Aggravating Factors Standing,Walking,Bending, Lifting Other Pain Aggravating Factors transitions (sit>stand, roll over, sup>sit) Pain Alleviating Factors Cold,Heat,Sitting PT-OP-F Manual Assessment Start: 03/10/21 16:52 Freq: Status: Active Protocol: Document 03/11/21 08:59 [facility] (Rec: 03/11/21 09:45 [facility] [id number]) Manual Assessments Soft Tissue Assessment Soft Tissue Mobility Assessment L>R Glutes, ES & QL PT-OP-G Mobility & Gait Start: 03/10/21 16:52 Freq: Status: Active Protocol: Document 03/11/21 08:59 [facility] (Rec: 03/11/21 09:45 [facility] [id number]) OP Mobility Evaluation Bed Mobility Rolling more difficult R, very segmental in movement Supine to and from Sit log roll in/out, slow and segmental Transfers Sit to Stand hard push from chair w/inc time OP Gait Assessment Comments Gait Comments leaning to L and lat leaning B , very stiff and slow, dec psuh off PT-OP-J Posture/Palpation/Skin Start: 03/10/21 16:52 Freq: Status: Active Protocol: Document 03/11/21 08:59 [facility] (Rec: 03/11/21 09:45 [facility] [id number]) Posture Evaluation [facility] Postural Classification System Inocencia Postural Classifications Posterior/Posterior Lumbar Protective Mechanism Left AP 0 Lumbar Protective Mechanism Right AP 0 Lumbar Protective Mechanism Left PA 0 Lumbar Protective Mechanism Right PA 0 Comments Posture Comments side bends and rotates left PT-OP-K Range of Motion Start: 03/10/21 16:52 Freq: Status: Active Protocol: Document 03/11/21 08:59 [facility] (Rec: 03/11/21 09:45 [facility] [id number]) Lumbar Spine Range of Motion Lumbar Spine Active Degrees Flexion 30 Extension 18 Rotation Left 38 Rotation Right 12 Lateral Flexion Left 25 Lateral Flexion Right 14 PT-OP-L Special Tests Start: 03/10/21 16:52 Freq: Status: Active Protocol: Document 03/11/21 08:59 [facility] (Rec: 03/11/21 09:45 [facility] [id number]) Special Tests Lumbar Spine Special Tests Straight Leg Raise Test Results L 45 deg pain in buttock w/opp knee bent Comments R 71 HS stretch Slump Test Results positive L PT-OP-M Strength Start: 03/10/21 16:52 Freq: Status: Active Protocol: Document 05/14/21 13:03 [facility] (Rec: 05/14/21 13:58 [facility] [id number]) Hip Strength Hip Manual Muscle Testing Left Flexion (L2) 3+ Fair+ Abduction 3+ Fair+ External Rotation 4- Good- Internal Rotation 4 Good Right Flexion (L2) 4- Good- Abduction 3 Fair External Rotation 4 Good Internal Rotation 4 Good Knee Strength Knee Manual Muscle Testing Left Flexion (S2) 5 Normal Extension (L3) 4+ Good+ Right Flexion (S2) 5 Normal Extension (L3) 5 Normal Ankle/Foot Strength Ankle and Foot Manual Muscle Testing Left Dorsiflexion (L4) 5 Normal Plantarflexion (S1) 4+ Good+ Comments PF tested seated B Right Dorsiflexion (L4) 5 Normal Plantarflexion (S1) 5 Normal PT-OP-Q Treatments Start: 03/10/21 16:52 Freq: Status: Active Protocol: Document 06/06/21 11:51 [facility] (Rec: 06/06/21 12:46 OF [id number]) Therapeutic Exercises Supine Exercises LTR Side bilateral Reps/Minutes 10 n glide Supine Exercise Name sciatic Side bilateral Reps/Minutes 10 Comments towel behind leg SKTC Side bilateral Reps/Minutes [id number] Comments towel bridge Supine Exercise Name mini w/PT LE traction Side bilateral Reps/Minutes 10 Comments assist, difficulty to clear hips Piriformis Stretch Supine Exercise Name supine today Side bilateral Reps/Minutes 60 sec ea Comments with towel for L Pelvic tilt Reps/Minutes 2x10 Comments tactile cues for flatten lumbar spine for PPT Sidelying Exercises open book Side bilateral Reps/Minutes 10 Hip ABD Side bilateral Reps/Minutes 10 Comments verbal cues for proper allignment for glute recruitment Clamshells Side bilateral Reps/Minutes 10 Comments cued TA facilitation for trunk stability during ROM Manual Therapy Treatment Soft Tissue Mobilization lumbar Body Location traction for L LE/Lumbar while sup Mobilization Type Sustained Pressure Intensity/Depth Moderate Comments sup PT-OP-T Assessment and Plan Start: 03/10/21 16:52 Freq: Status: Active Protocol: Document 06/06/21 11:51 [facility] (Rec: 06/06/21 12:46 OF [id number]) Physical Therapy Assessment Rehab Potential Rehabilitation Potential Good Evaluation Complexity Number of Personal Factors/Comorbidities 1-2 Number of Body Systems Impaired 1-2 Clinical Presentation at Evaluation Stable Impairments Impairments Pain Goals activity tolerance Short Term Goal (STG) Pt will be able to walk without cane in house and for short distancesw ith good mechancis. STG Duration achieved Nursing Home Goal (LTG) Pt will be able to go for 1 mile walk without cane without more than 2 point pain inc. 05/14-able to do 1 mile w/5/10 pain LTG Duration 07/14/21 Four Impairment RADHA 28/50 Short Term Goal (STG) Pt will imrpove score of RADHA to less than 20/50 to show improved functional ability. 04/09-improved to 23/50 05/14-2250 STG Duration 06/07/21 Nursing Home Goal (LTG) Pt will imrpove score of RADHA to less than 10/50 to show improved functional ability. LTG Duration 07/14/21 Three Impairment transitions Short Term Goal (STG) Pt will be able to roll & do log roll for in/out of bed without difficulty or inc pain . 04/09-improved ability w/less pain 05/14-difficulty w/bridging STG Duration 06/13/21 Php Lamp Developer Goal (LTG) Pt wilb e able to do 5 sit to stands with UEs w/o inc pain or difficulty to show imrpoved ability for transitions & improved LE strength 05/14-reports just discomfort LTG Duration 07/14/21 Two Impairment strength Short Term Goal (STG) Pt will be indep w/HEP STG Duration achieved Php Lamp Developer Goal (LTG) pt will have at least 4+/5 LE strength B in all planes and 2 /5 LPM to show improved staiblity to allow pt to do typical ADLs without inc pain. 04/09-improving 05/14-slowly improving LTG Duration 07/11/21 One Short Term Goal (STG) Pt will improve flex ROM to at least 50 deg in order to allow her to reach for objects w/greater ease. 04/09-slowly improving 05/14-still very painful STG Duration 06/29/21 Progress Towards Goals Progress Towards Goals Progressing Toward Goals Assessment Summary Assessment Kim had increased pain today , limited participation with strengthening activities. She was unable to tolerate most activity and required frequent , extended rest. Therapist educating pt upon self traction for lumbar pain after good response to L LE distraction. Pt aware of HEP mods to increase activity within pain free range. Physical Therapy Plan Frequency and Duration Frequency of Treatment 1-2x/Week Duration of Treatment 2 months Plan of Care Start Date 05/14/21 Plan of Care End Date 07/11/21 Next Visit Focus/Plan Next Note Type Treatment Note Next Visit Plan cont to work on ability to squat, work on standing posture & gait & hip stability /strength. Re assess Sup HEP after instructions today
--- NOTE | 2021-06-10 12:02 | PT.OTN ---
Current Diagnoses Spondylolisthesis, lumbar region (06/10/21) Other spondylosis with radiculopathy, lumbosacral region (06/10/21) Spinal stenosis, lumbar region without neurogenic claudication (06/10/21) Difficulty in walking, not elsewhere classified (06/10/21) Abnormal posture (06/10/21) Weakness (06/10/21) Physical Therapy Treatment Note PT-OP-A Visit Information Start: 03/10/21 16:52 Freq: Status: Active Protocol: Document 06/10/21 11:19 [facility] (Rec: 06/10/21 12:01 [facility] [id number]) Out-Patient Physical Therapy Visit Information Visit Information Visit Type Treatment Note Visit Note 07/08 Visit Start Time 11:16 Visit Stop Time 11:57 Total Visit Minutes 41 Visit Number 25 Number of VIRTUAL ASSISTANT Visits 0 PT-OP-B Current Condition Start: 03/10/21 16:52 Freq: Status: Active Protocol: Document 03/11/21 08:59 [facility] (Rec: 03/11/21 09:45 [facility] [id number]) Current Condition History of Current Condition Onset Date TLIF 10/07/20 Current Complaints back pain History of Current Condition Pt had years and years of back pain which led her to surgery . She had a surgery by Dr. Longoria several years ago and it was compressing more so had L3-L4 TLIF 10/07/20. Pt went to rehab for 6 weeks and did HH PT and OT until January and feels like she lost all her progress. Pt was not having any issue getting up out of bed or a chair and now is. She had more consistant pain then but now it changes on a daily basis. Some days the entire area of the surgery hurts but last couple days, it has just been painful on L side. Pt reports prior to surgery, she had sciatica into RLE for several years, but now just feeling tight in BLEs. She tries to do stretches before gets out of bed, but it still bothers her. Pt has been doing HH exercises consistanly. She walked 4 miles before surgery but now if she gets 1/2 mile, she feels jessica d/t pain stopping her beofre that. Pt has been getting out for little walks (to mailbox, errands, etc). pt did not use cane prior to surgery. Pt reports 2 falls d/t dizziness when she first got home. Occ lists to L when dizzy when first get up. Prior Treatments and Tests SNF rehab & HH PT, PT prior to surgery for lymphadema (L arm )-pt does think she may have lymphadema in legs too though, and PT for scaitica ( did help) Treatment Goals Patient/Caregiver Goals wants to be able to get back out of bed again, be able to go out and walk more, be able to get rid of the cane. Personal Factors Other Personal Factors That May Effect 2 c-scetions, appy, Therapy/Recovery gallbladder removals, has a diastasis, CHF, lymphedema, liver disease, DM II, dizziness occ PT-OP-C Subjective Start: 03/10/21 16:52 Freq: Status: Active Protocol: Document 06/10/21 11:19 [facility] (Rec: 06/10/21 12:01 [facility] [id number]) OP-PT Subjective Patient Comments Patient Comments Pt reports she feels like her walking is better. Pt got a referral for L arm for swelling. PT-OP-F Manual Assessment Start: 03/10/21 16:52 Freq: Status: Active Protocol: Document 03/11/21 08:59 [facility] (Rec: 03/11/21 09:45 [facility] [id number]) Manual Assessments Soft Tissue Assessment Soft Tissue Mobility Assessment L>R Glutes, ES & QL PT-OP-G Mobility & Gait Start: 03/10/21 16:52 Freq: Status: Active Protocol: Document 03/11/21 08:59 [facility] (Rec: 03/11/21 09:45 [facility] [id number]) OP Mobility Evaluation Bed Mobility Rolling more difficult R, very segmental in movement Supine to and from Sit log roll in/out, slow and segmental Transfers Sit to Stand hard push from chair w/inc time OP Gait Assessment Comments Gait Comments leaning to L and lat leaning B , very stiff and slow, dec psuh off PT-OP-J Posture/Palpation/Skin Start: 03/10/21 16:52 Freq: Status: Active Protocol: Document 03/11/21 08:59 [facility] (Rec: 03/11/21 09:45 [facility] [id number]) Posture Evaluation Inocencia Postural Classification System Inocencia Postural Classifications Posterior/Posterior Lumbar Protective Mechanism Left AP 0 Lumbar Protective Mechanism Right AP 0 Lumbar Protective Mechanism Left PA 0 Lumbar Protective Mechanism Right PA 0 Comments Posture Comments side bends and rotates left PT-OP-K Range of Motion Start: 03/10/21 16:52 Freq: Status: Active Protocol: Document 03/11/21 08:59 [facility] (Rec: 03/11/21 09:45 [facility] [id number]) Lumbar Spine Range of Motion Lumbar Spine Active Degrees Flexion 30 Extension 18 Rotation Left 38 Rotation Right 12 Lateral Flexion Left 25 Lateral Flexion Right 14 PT-OP-L Special Tests Start: 03/10/21 16:52 Freq: Status: Active Protocol: Document 03/11/21 08:59 [facility] (Rec: 03/11/21 09:45 [facility] [id number]) Special Tests Lumbar Spine Special Tests Straight Leg Raise Test Results L 45 deg pain in buttock w/opp knee bent Comments R 71 HS stretch Slump Test Results positive L PT-OP-M Strength Start: 03/10/21 16:52 Freq: Status: Active Protocol: Document 05/14/21 13:03 [facility] (Rec: 05/14/21 13:58 [facility] [id number]) Hip Strength Hip Manual Muscle Testing Left Flexion (L2) 3+ Fair+ Abduction 3+ Fair+ External Rotation 4- Good- Internal Rotation 4 Good Right Flexion (L2) 4- Good- Abduction 3 Fair External Rotation 4 Good Internal Rotation 4 Good Knee Strength Knee Manual Muscle Testing Left Flexion (S2) 5 Normal Extension (L3) 4+ Good+ Right Flexion (S2) 5 Normal Extension (L3) 5 Normal Ankle/Foot Strength Ankle and Foot Manual Muscle Testing Left Dorsiflexion (L4) 5 Normal Plantarflexion (S1) 4+ Good+ Comments PF tested seated B Right Dorsiflexion (L4) 5 Normal Plantarflexion (S1) 5 Normal PT-OP-Q Treatments Start: 03/10/21 16:52 Freq: Status: Active Protocol: Document 06/10/21 11:19 [facility] (Rec: 06/10/21 12:01 [facility] [id number]) Cardio Equipment Recumbent Elliptical ([employer]) Duration (Minutes) 7 Resistance 7 Seat Position 4 Therapeutic Exercises Standing Exercises press out Side bilateral Equipment Used Lvl 1 band 2 straps Reps/Minutes 10 sidestep Standing Exercise Name w/band in hands in front Side bilateral Equipment Used 2 strapslvl 1 band Reps/Minutes 10 stretches Standing Exercise Name mitra pose over counter Side bilateral Reps/Minutes 45 sec x2 squats Standing Exercise Name mini by counter Side bilateral Reps/Minutes 2x8 Comments cues for trunk flexion with descent hip ext Side bilateral Reps/Minutes 10 Comments focus on core & comfortable range, knee/ hip ext hip abd Side bilateral Equipment Used lvl1 Reps/Minutes 10 Comments focus on core & comfortable range, knee/ hip ext Manual Therapy Treatment Soft Tissue Mobilization lumbar Body Location ES Mobilization Type Rolling,Sustained Pressure Intensity/Depth Moderate Comments w/fwd flex and deep breathing PT-OP-T Assessment and Plan Start: 03/10/21 16:52 Freq: Status: Active Protocol: Document 06/10/21 11:19 [facility] (Rec: 06/10/21 12:01 [facility] [id number]) Physical Therapy Assessment Goals activity tolerance Short Term Goal (STG) Pt will be able to walk without cane in house and for short distancesw ith good mechancis. STG Duration achieved Dental Hygiene Teacher Goal (LTG) Pt will be able to go for 1 mile walk without cane without more than 2 point pain inc. 05/14-able to do 1 mile w/5/10 pain LTG Duration 07/14/21 Four Impairment RADHA 28/50 Short Term Goal (STG) Pt will imrpove score of RADHA to less than 20/50 to show improved functional ability. 04/09-improved to 23/50 05/14-22/50 STG Duration 06/07/21 Penitentiary Goal (LTG) Pt will imrpove score of RADHA to less than 10/50 to show improved functional ability. LTG Duration 07/14/21 Three Impairment transitions Short Term Goal (STG) Pt will be able to roll & do log roll for in/out of bed without difficulty or inc pain . 04/09-improved ability w/less pain 05/14-difficulty w/bridging STG Duration 06/13/21 Penitentiary Goal (LTG) Pt wilb e able to do 5 sit to stands with UEs w/o inc pain or difficulty to show imrpoved ability for transitions & improved LE strength 05/14-reports just discomfort LTG Duration 07/14/21 Two Impairment strength Short Term Goal (STG) Pt will be indep w/HEP STG Duration achieved Dental Hygiene Teacher Goal (LTG) pt will have at least 4+/5 LE strength B in all planes and 2 /5 LPM to show improved staiblity to allow pt to do typical ADLs without inc pain. 04/09-improving 05/14-slowly improving LTG Duration 07/11/21 One Short Term Goal (STG) Pt will improve flex ROM to at least 50 deg in order to allow her to reach for objects w/greater ease. 04/09-slowly improving 05/14-still very painful STG Duration 06/29/21 Assessment Summary Assessment Pt instructed in ways to use bands that are loops at home d /t asking. She was significantly challeneged by addition of band w/those exericses. cueing for keeping body straight w/side stpe and push outs w/bands Physical Therapy Plan Frequency and Duration Frequency of Treatment 1-2x/Week Duration of Treatment 2 months Plan of Care Start Date 05/14/21 Plan of Care End Date 07/11/21 Next Visit Focus/Plan Next Note Type Treatment Note Next Visit Plan cont to work on ability to sqaut, work on standing posture & gait & hip stability /strength
--- NOTE | 2021-06-12 09:03 | PT.OTN ---
Current Diagnoses Spondylolisthesis, lumbar region (06/12/21) Other spondylosis with radiculopathy, lumbosacral region (06/12/21) Spinal stenosis, lumbar region without neurogenic claudication (06/12/21) Difficulty in walking, not elsewhere classified (06/12/21) Abnormal posture (06/12/21) Weakness (06/12/21) Physical Therapy Treatment Note PT-OP-A Visit Information Start: 03/10/21 16:52 Freq: Status: Active Protocol: Document 06/12/21 08:28 [facility] (Rec: 06/12/21 09:03 [facility] [id number]) Out-Patient Physical Therapy Visit Information Visit Information Visit Type Progress Note Visit Note 12/08 Visit Start Time 08:18 Visit Stop Time 08:57 Total Visit Minutes 39 Visit Number 26 Number of INVESTIGATOR CASH SHORTAGE Visits 0 PT-OP-B Current Condition Start: 03/10/21 16:52 Freq: Status: Active Protocol: Document 03/11/21 08:59 [facility] (Rec: 03/11/21 09:45 [facility] [id number]) Current Condition History of Current Condition Onset Date TLIF 10/07/20 Current Complaints back pain History of Current Condition Pt had years and years of back pain which led her to surgery . She had a surgery by Dr. Longoria several years ago and it was compressing more so had L3-L4 TLIF 10/07/20. Pt went to rehab for 6 weeks and did HH PT and OT until January and feels like she lost all her progress. Pt was not having any issue getting up out of bed or a chair and now is. She had more consistant pain then but now it changes on a daily basis. Some days the entire area of the surgery hurts but last couple days, it has just been painful on L side. Pt reports prior to surgery, she had sciatica into RLE for several years, but now just feeling tight in BLEs. She tries to do stretches before gets out of bed, but it still bothers her. Pt has been doing HH exercises consistanly. She walked 4 miles before surgery but now if she gets 1/2 mile, she feels jessica d/t pain stopping her beofre that. Pt has been getting out for little walks (to mailbox, errands, etc). pt did not use cane prior to surgery. Pt reports 2 falls d/t dizziness when she first got home. Occ lists to L when dizzy when first get up. Prior Treatments and Tests SNF rehab & HH PT, PT prior to surgery for lymphadema (L arm )-pt does think she may have lymphadema in legs too though, and PT for scaitica ( did help) Treatment Goals Patient/Caregiver Goals wants to be able to get back out of bed again, be able to go out and walk more, be able to get rid of the cane. Personal Factors Other Personal Factors That May Effect 2 c-scetions, appy, Therapy/Recovery gallbladder removals, has a diastasis, CHF, lymphedema, liver disease, DM II, dizziness occ PT-OP-C Subjective Start: 03/10/21 16:52 Freq: Status: Active Protocol: Document 06/12/21 08:28 [facility] (Rec: 06/12/21 09:03 [facility] [id number]) OP-PT Subjective Patient Comments Patient Comments Pt reports getting mile walk in daily this week Patient Reported Progress Same PT-OP-F Manual Assessment Start: 03/10/21 16:52 Freq: Status: Active Protocol: Document 03/11/21 08:59 [facility] (Rec: 03/11/21 09:45 [facility] [id number]) Manual Assessments Soft Tissue Assessment Soft Tissue Mobility Assessment L>R Glutes, ES & QL PT-OP-G Mobility & Gait Start: 03/10/21 16:52 Freq: Status: Active Protocol: Document 03/11/21 08:59 [facility] (Rec: 03/11/21 09:45 [facility] [id number]) OP Mobility Evaluation Bed Mobility Rolling more difficult R, very segmental in movement Supine to and from Sit log roll in/out, slow and segmental Transfers Sit to Stand hard push from chair w/inc time OP Gait Assessment Comments Gait Comments leaning to L and lat leaning B , very stiff and slow, dec psuh off PT-OP-J Posture/Palpation/Skin Start: 03/10/21 16:52 Freq: Status: Active Protocol: Document 03/11/21 08:59 [facility] (Rec: 03/11/21 09:45 [facility] [id number]) Posture Evaluation Inocencia Postural Classification System Inocencia Postural Classifications Posterior/Posterior Lumbar Protective Mechanism Left AP 0 Lumbar Protective Mechanism Right AP 0 Lumbar Protective Mechanism Left PA 0 Lumbar Protective Mechanism Right PA 0 Comments Posture Comments side bends and rotates left PT-OP-K Range of Motion Start: 03/10/21 16:52 Freq: Status: Active Protocol: Document 03/11/21 08:59 [facility] (Rec: 03/11/21 09:45 [facility] [id number]) Lumbar Spine Range of Motion Lumbar Spine Active Degrees Flexion 30 Extension 18 Rotation Left 38 Rotation Right 12 Lateral Flexion Left 25 Lateral Flexion Right 14 PT-OP-L Special Tests Start: 03/10/21 16:52 Freq: Status: Active Protocol: Document 03/11/21 08:59 [facility] (Rec: 03/11/21 09:45 [facility] [id number]) Special Tests Lumbar Spine Special Tests Straight Leg Raise Test Results L 45 deg pain in buttock w/opp knee bent Comments R 71 HS stretch Slump Test Results positive L PT-OP-M Strength Start: 03/10/21 16:52 Freq: Status: Active Protocol: Document 06/12/21 08:28 [facility] (Rec: 06/12/21 09:03 [facility] [id number]) Hip Strength Hip Manual Muscle Testing Left Flexion (L2) 3+ Fair+ Abduction 3+ Fair+ External Rotation 4 Good Internal Rotation 5 Normal Right Flexion (L2) 3+ Fair+ Abduction 3+ Fair+ External Rotation 4 Good Internal Rotation 5 Normal Comments LPM PA 1/5 B, AP 0/5 Knee Strength Knee Manual Muscle Testing Left Flexion (S2) 5 Normal Extension (L3) 4+ Good+ Right Flexion (S2) 5 Normal Extension (L3) 4+ Good+ Ankle/Foot Strength Ankle and Foot Manual Muscle Testing Left Dorsiflexion (L4) 5 Normal Plantarflexion (S1) 5 Normal Comments PF tested seated B Right Dorsiflexion (L4) 5 Normal Plantarflexion (S1) 5 Normal PT-OP-Q Treatments Start: 03/10/21 16:52 Freq: Status: Active Protocol: Document 06/12/21 08:28 [facility] (Rec: 06/12/21 09:03 [facility] [id number]) Cardio Equipment Recumbent Elliptical ([employer]) Duration (Minutes) 6 Resistance 7 Seat Position 4 Gym Equipment Therapeutic Ball seated Ball Size/Color 65 cm Body Position seated Reps/Duration 15 Comments rotation w/lvl 1 band 2 strands Therapeutic Exercises Sidelying Exercises Hip ABD Side bilateral Reps/Minutes 10 Comments verbal cues for proper allignment for glute recruitment Clamshells Side bilateral Reps/Minutes 15 Comments cued TA facilitation for trunk stability during ROM Standing Exercises press out Side bilateral Equipment Used Lvl 1 band 2 straps Reps/Minutes 15 sidestep Standing Exercise Name w/band in hands in front Side bilateral Equipment Used 2 strapslvl 1 band Reps/Minutes 15 Manual Therapy Treatment Soft Tissue Mobilization lumbar Body Location ES & QL Mobilization Type Rolling,Sustained Pressure Intensity/Depth Moderate Body Position Sidelying PT-OP-T Assessment and Plan Start: 03/10/21 16:52 Freq: Status: Active Protocol: Document 06/12/21 08:28 [facility] (Rec: 06/12/21 09:03 [facility] [id number]) Physical Therapy Assessment Goals activity tolerance Short Term Goal (STG) Pt will be able to walk without cane in house and for short distancesw ith good mechancis. STG Duration achieved Longterm Goal (LTG) Pt will be able to go for 1 mile walk without cane without more than 2 point pain inc. 05/14-able to do 1 mile w/5/10 pain LTG Duration achieved starts at 1-2/10 and inc to 3-4/10 Four Impairment RADHA 28/50 Short Term Goal (STG) Pt will imrpove score of RADHA to less than 20/50 to show improved functional ability. 04/09-improved to 23/50 05/14-22/50 06/12-22/50 STG Duration 06/07/21 Longterm Goal (LTG) Pt will imrpove score of RADHA to less than 10/50 to show improved functional ability. LTG Duration 07/14/21 Three Impairment transitions Short Term Goal (STG) Pt will be able to roll & do log roll for in/out of bed without difficulty or inc pain . 04/09-improved ability w/less pain 05/14-difficulty w/bridging 06/12-getting into bed going well, getting out of bed still most difficult w/bridge STG Duration 06/13/[address] Interpreter Goal (LTG) Pt wilb e able to do 5 sit to stands with UEs w/o inc pain or difficulty to show imrpoved ability for transitions & improved LE strength 05/14-reports just discomfort 06/12-still painful LTG Duration 07/14/21 Two Impairment strength Short Term Goal (STG) Pt will be indep w/HEP STG Duration achieved Longterm Goal (LTG) pt will have at least 4+/5 LE strength B in all planes and 2 /5 LPM to show improved staiblity to allow pt to do typical ADLs without inc pain. 04/09-improving 05/14-slowly improving 06/12-cont small improvements LTG Duration 07/11/21 One Short Term Goal (STG) Pt will improve flex ROM to at least 50 deg in order to allow her to reach for objects w/greater ease. 04/09-slowly improving 05/14-still very painful 06/12-can get to 50 deg but significant pain. pain starts at 30 deg STG Duration 06/29/21 Assessment Summary Assessment Pt is making improvements with strength and functional ability with therapy. SHe is able to do 1 mile walks w/2 point inc from baseline and has done a 2mile walk but had significantly inc pain after that. She still requires cues w/all band roational exercises . Physical Therapy Plan Frequency and Duration Frequency of Treatment 1-2x/Week Duration of Treatment 2 months Plan of Care Start Date 05/14/21 Plan of Care End Date 07/11/21 Next Visit Focus/Plan Next Note Type Treatment Note Next Visit Plan cont to work on ability to sqaut, work on standing posture & gait & hip stability /strength
--- NOTE | 2021-06-16 15:57 | PT.OTN ---
Current Diagnoses Spondylolisthesis, lumbar region (06/16/21) Other spondylosis with radiculopathy, lumbosacral region (06/16/21) Spinal stenosis, lumbar region without neurogenic claudication (06/16/21) Difficulty in walking, not elsewhere classified (06/16/21) Abnormal posture (06/16/21) Weakness (06/16/21) Physical Therapy Treatment Note PT-OP-A Visit Information Start: 03/10/21 16:52 Freq: Status: Active Protocol: Document 06/16/21 15:19 MA (Rec: 06/16/21 15:57 MA [id number]) Out-Patient Physical Therapy Visit Information Visit Information Visit Type Treatment Note Visit Note 01/08 Visit Start Time 15:15 Visit Stop Time 15:54 Total Visit Minutes 39 Visit Number 27 Number of EXPLOSIVE OPERATOR Visits 1 Precautions Precautions Abdominal surgeries: appendectomy, cholecystectomy Lumbar surgery PT-OP-B Current Condition Start: 03/10/21 16:52 Freq: Status: Active Protocol: Document 03/11/21 08:59 [facility] (Rec: 03/11/21 09:45 [facility] [id number]) Current Condition History of Current Condition Onset Date TLIF 10/07/20 Current Complaints back pain History of Current Condition Pt had years and years of back pain which led her to surgery . She had a surgery by Dr. Longoria several years ago and it was compressing more so had L3-L4 TLIF 10/07/20. Pt went to rehab for 6 weeks and did HH PT and OT until January and feels like she lost all her progress. Pt was not having any issue getting up out of bed or a chair and now is. She had more consistant pain then but now it changes on a daily basis. Some days the entire area of the surgery hurts but last couple days, it has just been painful on L side. Pt reports prior to surgery, she had sciatica into RLE for several years, but now just feeling tight in BLEs. She tries to do stretches before gets out of bed, but it still bothers her. Pt has been doing HH exercises consistanly. She walked 4 miles before surgery but now if she gets 1/2 mile, she feels jessica d/t pain stopping her beofre that. Pt has been getting out for little walks (to mailbox, errands, etc). pt did not use cane prior to surgery. Pt reports 2 falls d/t dizziness when she first got home. Occ lists to L when dizzy when first get up. Prior Treatments and Tests SNF rehab & HH PT, PT prior to surgery for lymphadema (L arm )-pt does think she may have lymphadema in legs too though, and PT for scaitica ( did help) Treatment Goals Patient/Caregiver Goals wants to be able to get back out of bed again, be able to go out and walk more, be able to get rid of the cane. Personal Factors Other Personal Factors That May Effect 2 c-scetions, appy, Therapy/Recovery gallbladder removals, has a diastasis, CHF, lymphedema, liver disease, DM II, dizziness occ PT-OP-C Subjective Start: 03/10/21 16:52 Freq: Status: Active Protocol: Document 06/16/21 15:19 MA (Rec: 06/16/21 15:57 MA [id number]) OP-PT Subjective Patient Comments Patient Comments Pt's back is really bothering her today. She has not walked since last week and thinks that may be part of the issue PT-OP-F Manual Assessment Start: 03/10/21 16:52 Freq: Status: Active Protocol: Document 03/11/21 08:59 [facility] (Rec: 03/11/21 09:45 [facility] [id number]) Manual Assessments Soft Tissue Assessment Soft Tissue Mobility Assessment L>R Glutes, ES & QL PT-OP-G Mobility & Gait Start: 03/10/21 16:52 Freq: Status: Active Protocol: Document 03/11/21 08:59 [facility] (Rec: 03/11/21 09:45 [facility] [id number]) OP Mobility Evaluation Bed Mobility Rolling more difficult R, very segmental in movement Supine to and from Sit log roll in/out, slow and segmental Transfers Sit to Stand hard push from chair w/inc time OP Gait Assessment Comments Gait Comments leaning to L and lat leaning B , very stiff and slow, dec psuh off PT-OP-J Posture/Palpation/Skin Start: 03/10/21 16:52 Freq: Status: Active Protocol: Document 03/11/21 08:59 [facility] (Rec: 03/11/21 09:45 [facility] [id number]) Posture Evaluation [facility] Postural Classification System [facility] Postural Classifications Posterior/Posterior Lumbar Protective Mechanism Left AP 0 Lumbar Protective Mechanism Right AP 0 Lumbar Protective Mechanism Left PA 0 Lumbar Protective Mechanism Right PA 0 Comments Posture Comments side bends and rotates left PT-OP-K Range of Motion Start: 03/10/21 16:52 Freq: Status: Active Protocol: Document 03/11/21 08:59 [facility] (Rec: 03/11/21 09:45 [facility] [id number]) Lumbar Spine Range of Motion Lumbar Spine Active Degrees Flexion 30 Extension 18 Rotation Left 38 Rotation Right 12 Lateral Flexion Left 25 Lateral Flexion Right 14 PT-OP-L Special Tests Start: 03/10/21 16:52 Freq: Status: Active Protocol: Document 03/11/21 08:59 [facility] (Rec: 03/11/21 09:45 [facility] [id number]) Special Tests Lumbar Spine Special Tests Straight Leg Raise Test Results L 45 deg pain in buttock w/opp knee bent Comments R 71 HS stretch Slump Test Results positive L PT-OP-M Strength Start: 03/10/21 16:52 Freq: Status: Active Protocol: Document 06/12/21 08:28 [facility] (Rec: 06/12/21 09:03 [facility] [id number]) Hip Strength Hip Manual Muscle Testing Left Flexion (L2) 3+ Fair+ Abduction 3+ Fair+ External Rotation 4 Good Internal Rotation 5 Normal Right Flexion (L2) 3+ Fair+ Abduction 3+ Fair+ External Rotation 4 Good Internal Rotation 5 Normal Comments LPM PA 1/5 B, AP 0/5 Knee Strength Knee Manual Muscle Testing Left Flexion (S2) 5 Normal Extension (L3) 4+ Good+ Right Flexion (S2) 5 Normal Extension (L3) 4+ Good+ Ankle/Foot Strength Ankle and Foot Manual Muscle Testing Left Dorsiflexion (L4) 5 Normal Plantarflexion (S1) 5 Normal Comments PF tested seated B Right Dorsiflexion (L4) 5 Normal Plantarflexion (S1) 5 Normal PT-OP-Q Treatments Start: 03/10/21 16:52 Freq: Status: Active Protocol: Document 06/16/21 15:19 MA (Rec: 06/16/21 15:57 MA [id number]) Cardio Equipment Recumbent Elliptical ([employer]) Duration (Minutes) 6 Resistance 5 Seat Position 4 Other lower resistance today due to pain Therapeutic Exercises Standing Exercises sidestep Side bilateral Equipment Used lvl 1 TB Reps/Minutes 2x15 ft squats Standing Exercise Name mini holding ballet bar Side bilateral Reps/Minutes 2x8 Comments cues for trunk flexion with descent hip ext Side bilateral Reps/Minutes 10 Comments focus on core & comfortable range, knee/ hip ext Manual Therapy Treatment Soft Tissue Mobilization lumbar Body Location ES & QL Mobilization Type Rolling,Sustained Pressure Intensity/Depth Moderate Body Position Sidelying PT-OP-T Assessment and Plan Start: 03/10/21 16:52 Freq: Status: Active Protocol: Document 06/16/21 15:19 MA (Rec: 06/16/21 15:57 MA [id number]) Physical Therapy Assessment Goals activity tolerance Short Term Goal (STG) Pt will be able to walk without cane in house and for short distancesw ith good mechancis. STG Duration achieved Snf Goal (LTG) Pt will be able to go for 1 mile walk without cane without more than 2 point pain inc. 05/14-able to do 1 mile w/5/10 pain LTG Duration achieved starts at 1-2/10 and inc to 3-4/10 Four Impairment RADHA 28/50 Short Term Goal (STG) Pt will imrpove score of RADHA to less than 20/50 to show improved functional ability. 04/09-improved to 23/50 05/14-22/50 06/12-22/50 STG Duration 06/07/21 [employer] [facility] Goal (LTG) Pt will imrpove score of RADHA to less than 10/50 to show improved functional ability. LTG Duration 07/14/21 Three Impairment transitions Short Term Goal (STG) Pt will be able to roll & do log roll for in/out of bed without difficulty or inc pain . 04/09-improved ability w/less pain 05/14-difficulty w/bridging 06/12-getting into bed going well, getting out of bed still most difficult w/bridge STG Duration 06/13/21 Snf Goal (LTG) Pt wilb e able to do 5 sit to stands with UEs w/o inc pain or difficulty to show imrpoved ability for transitions & improved LE strength 05/14-reports just discomfort 06/12-still painful LTG Duration 07/14/21 Two Impairment strength Short Term Goal (STG) Pt will be indep w/HEP STG Duration achieved Metal Sprayer Goal (LTG) pt will have at least 4+/5 LE strength B in all planes and 2 /5 LPM to show improved staiblity to allow pt to do typical ADLs without inc pain. 04/09-improving 05/14-slowly improving 06/12-cont small improvements LTG Duration 07/11/21 One Short Term Goal (STG) Pt will improve flex ROM to at least 50 deg in order to allow her to reach for objects w/greater ease. 04/09-slowly improving 05/14-still very painful 06/12-can get to 50 deg but significant pain. pain starts at 30 deg STG Duration 06/29/21 Assessment Summary Assessment Pt requires frequent rest breaks due to L LB pain today. She needs heavy cues during standing hip extension to ext hip and not flex knee. When side stepping, she has increased difficulty with the movement stepping L>R but has more pain when stepping R. She continues to struggle with bed mobility due to LB pain. Pt would continue to benefit from skilled therapy for increasing hip extensor strength, improving bed mobility, and decreasing LB pain. Physical Therapy Plan Frequency and Duration Frequency of Treatment 1-2x/Week Duration of Treatment 2 months Plan of Care Start Date 05/14/21 Plan of Care End Date 07/11/21 Therapeutic Interventions Therapeutic Interventions Aquatic Therapy,Balance Training,Gait Training,Home Exercise Program,Joint Mobilizations,Manual Therapy, Neuromuscular Re-education, Patient/Caregiver Education, Self-Care/Home Management,Soft Tissue Mobilization,Taping, Therapeutic Activities, Therapeutic Exercises Modalities Cold Pack/Ice Massage,Electric Stimulation,Hot Packs, Ultrasound Next Visit Focus/Plan Next Note Type Treatment Note Next Visit Plan cont to work on ability to sqaut, work on standing posture & gait & hip stability /strength
--- NOTE | 2021-06-19 14:31 | PT.OTN ---
Current Diagnoses Spondylolisthesis, lumbar region (06/19/21) Other spondylosis with radiculopathy, lumbosacral region (06/19/21) Spinal stenosis, lumbar region without neurogenic claudication (06/19/21) Difficulty in walking, not elsewhere classified (06/19/21) Abnormal posture (06/19/21) Weakness (06/19/21) Physical Therapy Treatment Note PT-OP-A Visit Information Start: 03/10/21 16:52 Freq: Status: Active Protocol: Document 06/19/21 13:51 [facility] (Rec: 06/19/21 14:31 [facility] [id number]) Out-Patient Physical Therapy Visit Information Visit Information Visit Type Treatment Note Visit Note 02/05 Visit Start Time 13:49 Visit Stop Time 14:29 Total Visit Minutes 40 Visit Number 28 Number of BODY AND FRAME MAN Visits 0 PT-OP-B Current Condition Start: 03/10/21 16:52 Freq: Status: Active Protocol: Document 03/11/21 08:59 [facility] (Rec: 03/11/21 09:45 [facility] [id number]) Current Condition History of Current Condition Onset Date TLIF 10/07/20 Current Complaints back pain History of Current Condition Pt had years and years of back pain which led her to surgery . She had a surgery by Dr. Longoria several years ago and it was compressing more so had L3-L4 TLIF 10/07/20. Pt went to rehab for 6 weeks and did HH PT and OT until January and feels like she lost all her progress. Pt was not having any issue getting up out of bed or a chair and now is. She had more consistant pain then but now it changes on a daily basis. Some days the entire area of the surgery hurts but last couple days, it has just been painful on L side. Pt reports prior to surgery, she had sciatica into RLE for several years, but now just feeling tight in BLEs. She tries to do stretches before gets out of bed, but it still bothers her. Pt has been doing HH exercises consistanly. She walked 4 miles before surgery but now if she gets 1/2 mile, she feels jessica d/t pain stopping her beofre that. Pt has been getting out for little walks (to mailbox, errands, etc). pt did not use cane prior to surgery. Pt reports 2 falls d/t dizziness when she first got home. Occ lists to L when dizzy when first get up. Prior Treatments and Tests SNF rehab & HH PT, PT prior to surgery for lymphadema (L arm )-pt does think she may have lymphadema in legs too though, and PT for scaitica ( did help) Treatment Goals Patient/Caregiver Goals wants to be able to get back out of bed again, be able to go out and walk more, be able to get rid of the cane. Personal Factors Other Personal Factors That May Effect 2 c-scetions, appy, Therapy/Recovery gallbladder removals, has a diastasis, CHF, lymphedema, liver disease, DM II, dizziness occ PT-OP-C Subjective Start: 03/10/21 16:52 Freq: Status: Active Protocol: Document 06/19/21 13:51 [facility] (Rec: 06/19/21 14:31 [facility] [id number]) OP-PT Subjective Patient Comments Patient Comments Pt reprots getting a mile in on wednesday and . notes she has to walk and stop but gets it in. PT-OP-F Manual Assessment Start: 03/10/21 16:52 Freq: Status: Active Protocol: Document 03/11/21 08:59 [facility] (Rec: 03/11/21 09:45 [facility] [id number]) Manual Assessments Soft Tissue Assessment Soft Tissue Mobility Assessment L>R Glutes, ES & QL PT-OP-G Mobility & Gait Start: 03/10/21 16:52 Freq: Status: Active Protocol: Document 03/11/21 08:59 [facility] (Rec: 03/11/21 09:45 [facility] [id number]) OP Mobility Evaluation Bed Mobility Rolling more difficult R, very segmental in movement Supine to and from Sit log roll in/out, slow and segmental Transfers Sit to Stand hard push from chair w/inc time OP Gait Assessment Comments Gait Comments leaning to L and lat leaning B , very stiff and slow, dec psuh off PT-OP-J Posture/Palpation/Skin Start: 03/10/21 16:52 Freq: Status: Active Protocol: Document 03/11/21 08:59 [facility] (Rec: 03/11/21 09:45 [facility] [id number]) Posture Evaluation [facility] Postural Classification System [facility] Postural Classifications Posterior/Posterior Lumbar Protective Mechanism Left AP 0 Lumbar Protective Mechanism Right AP 0 Lumbar Protective Mechanism Left PA 0 Lumbar Protective Mechanism Right PA 0 Comments Posture Comments side bends and rotates left PT-OP-K Range of Motion Start: 03/10/21 16:52 Freq: Status: Active Protocol: Document 03/11/21 08:59 [facility] (Rec: 03/11/21 09:45 [facility] [id number]) Lumbar Spine Range of Motion Lumbar Spine Active Degrees Flexion 30 Extension 18 Rotation Left 38 Rotation Right 12 Lateral Flexion Left 25 Lateral Flexion Right 14 PT-OP-L Special Tests Start: 03/10/21 16:52 Freq: Status: Active Protocol: Document 03/11/21 08:59 [facility] (Rec: 03/11/21 09:45 [facility] [id number]) Special Tests Lumbar Spine Special Tests Straight Leg Raise Test Results L 45 deg pain in buttock w/opp knee bent Comments R 71 HS stretch Slump Test Results positive L PT-OP-M Strength Start: 03/10/21 16:52 Freq: Status: Active Protocol: Document 06/12/21 08:28 [facility] (Rec: 06/12/21 09:03 [facility] [id number]) Hip Strength Hip Manual Muscle Testing Left Flexion (L2) 3+ Fair+ Abduction 3+ Fair+ External Rotation 4 Good Internal Rotation 5 Normal Right Flexion (L2) 3+ Fair+ Abduction 3+ Fair+ External Rotation 4 Good Internal Rotation 5 Normal Comments LPM PA 1/5 B, AP 0/5 Knee Strength Knee Manual Muscle Testing Left Flexion (S2) 5 Normal Extension (L3) 4+ Good+ Right Flexion (S2) 5 Normal Extension (L3) 4+ Good+ Ankle/Foot Strength Ankle and Foot Manual Muscle Testing Left Dorsiflexion (L4) 5 Normal Plantarflexion (S1) 5 Normal Comments PF tested seated B Right Dorsiflexion (L4) 5 Normal Plantarflexion (S1) 5 Normal PT-OP-Q Treatments Start: 03/10/21 16:52 Freq: Status: Active Protocol: Document 06/19/21 13:51 [facility] (Rec: 06/19/21 14:31 [facility] [id number]) Cardio Equipment Recumbent Elliptical ([employer]) Duration (Minutes) 6 Resistance 6 Seat Position 4 Gym Equipment Sport Cord fwd Cord/Resistance green Reps/Duration 15 Comments fwd walk Therapeutic Exercises Supine Exercises stretch Supine Exercise Name HS w/cross body bias Side left Reps/Minutes 2x30 sec SKTC Side bilateral Reps/Minutes 30sec Comments towel Standing Exercises step up Side bilateral Equipment Used 4in step Reps/Minutes 2x8 Comments no rail use squats Standing Exercise Name mini holding ballet bar Side bilateral Reps/Minutes 2x8 Comments cues for trunk flexion with descent hip ext Side bilateral Reps/Minutes 2x6 Comments focus on core & comfortable range, knee/ hip ext Manual Therapy Treatment Soft Tissue Mobilization lumbar Body Location ES & QL Mobilization Type Rolling,Sustained Pressure Intensity/Depth Moderate Body Position Sidelying Joint Mobilizations hip Joint L Direction inf FM PT-OP-T Assessment and Plan Start: 03/10/21 16:52 Freq: Status: Active Protocol: Document 06/19/21 13:51 [facility] (Rec: 06/19/21 14:31 [facility] [id number]) Physical Therapy Assessment Goals activity tolerance Short Term Goal (STG) Pt will be able to walk without cane in house and for short distancesw ith good mechancis. STG Duration achieved [facility] Goal (LTG) Pt will be able to go for 1 mile walk without cane without more than 2 point pain inc. 05/14-able to do 1 mile w/5/10 pain LTG Duration achieved starts at 1-2/10 and inc to 3-4/10 Four Impairment RADHA 28/50 Short Term Goal (STG) Pt will imrpove score of RADHA to less than 20/50 to show improved functional ability. 04/09-improved to 23/50 05/14- 06/12- STG Duration 06/07/21 [facility] Goal (LTG) Pt will imrpove score of RADHA to less than 10/50 to show improved functional ability. LTG Duration 07/14/21 Three Impairment transitions Short Term Goal (STG) Pt will be able to roll & do log roll for in/out of bed without difficulty or inc pain . 04/09-improved ability w/less pain 05/14-difficulty w/bridging 06/12-getting into bed going well, getting out of bed still most difficult w/bridge STG Duration 06/13/21 Shelter Goal (LTG) Pt wilb e able to do 5 sit to stands with UEs w/o inc pain or difficulty to show imrpoved ability for transitions & improved LE strength 05/14-reports just discomfort 06/12-still painful LTG Duration 07/14/21 Two Impairment strength Short Term Goal (STG) Pt will be indep w/HEP STG Duration achieved Shelter Goal (LTG) pt will have at least 4+/5 LE strength B in all planes and 2 /5 LPM to show improved staiblity to allow pt to do typical ADLs without inc pain. 04/09-improving 05/14-slowly improving 06/12-cont small improvements LTG Duration 07/11/21 One Short Term Goal (STG) Pt will improve flex ROM to at least 50 deg in order to allow her to reach for objects w/greater ease. 04/09-slowly improving 05/14-still very painful 06/12-can get to 50 deg but significant pain. pain starts at 30 deg STG Duration 06/29/21 Physical Therapy Plan Frequency and Duration Frequency of Treatment 1-2x/Week Duration of Treatment 2 months Plan of Care Start Date 05/14/21 Plan of Care End Date 07/11/21 Next Visit Focus/Plan Next Note Type Treatment Note Next Visit Plan cont to work on ability to sqaut, work on standing posture & gait & hip stability /strength
--- NOTE | 2021-06-23 11:07 | PT.OTN ---
Current Diagnoses Spondylolisthesis, lumbar region (06/23/21) Other spondylosis with radiculopathy, lumbosacral region (06/23/21) Spinal stenosis, lumbar region without neurogenic claudication (06/23/21) Difficulty in walking, not elsewhere classified (06/23/21) Abnormal posture (06/23/21) Weakness (06/23/21) Physical Therapy Treatment Note PT-OP-A Visit Information Start: 03/10/21 16:52 Freq: Status: Active Protocol: Document 06/23/21 10:21 MA (Rec: 06/23/21 11:06 MA [id number]) Out-Patient Physical Therapy Visit Information Visit Information Visit Type Treatment Note Visit Note 03/08 Visit Start Time 10:15 Visit Stop Time 11:00 Total Visit Minutes 45 Visit Number 29 Number of PHARMACIST CRITICAL CARE Visits 1 Precautions Precautions Abdominal surgeries: appendectomy, cholecystectomy Lumbar surgery PT-OP-B Current Condition Start: 03/10/21 16:52 Freq: Status: Active Protocol: Document 03/11/21 08:59 [facility] (Rec: 03/11/21 09:45 [facility] [id number]) Current Condition History of Current Condition Onset Date TLIF 10/07/20 Current Complaints back pain History of Current Condition Pt had years and years of back pain which led her to surgery . She had a surgery by Dr. Longoria several years ago and it was compressing more so had L3-L4 TLIF 10/07/20. Pt went to rehab for 6 weeks and did HH PT and OT until January and feels like she lost all her progress. Pt was not having any issue getting up out of bed or a chair and now is. She had more consistant pain then but now it changes on a daily basis. Some days the entire area of the surgery hurts but last couple days, it has just been painful on L side. Pt reports prior to surgery, she had sciatica into RLE for several years, but now just feeling tight in BLEs. She tries to do stretches before gets out of bed, but it still bothers her. Pt has been doing HH exercises consistanly. She walked 4 miles before surgery but now if she gets 1/2 mile, she feels jessica d/t pain stopping her beofre that. Pt has been getting out for little walks (to mailbox, errands, etc). pt did not use cane prior to surgery. Pt reports 2 falls d/t dizziness when she first got home. Occ lists to L when dizzy when first get up. Prior Treatments and Tests SNF rehab & HH PT, PT prior to surgery for lymphadema (L arm )-pt does think she may have lymphadema in legs too though, and PT for scaitica ( did help) Treatment Goals Patient/Caregiver Goals wants to be able to get back out of bed again, be able to go out and walk more, be able to get rid of the cane. Personal Factors Other Personal Factors That May Effect 2 c-scetions, appy, Therapy/Recovery gallbladder removals, has a diastasis, CHF, lymphedema, liver disease, DM II, dizziness occ PT-OP-C Subjective Start: 03/10/21 16:52 Freq: Status: Active Protocol: Document 06/23/21 10:21 MA (Rec: 06/23/21 11:06 MA [id number]) OP-PT Subjective Patient Comments Patient Comments Pt reports doing one mile & wed and 2 mile walk wednesday before having increased pain on Wednesday. Thinks 2 miles was too much on wednesday. PT-OP-F Manual Assessment Start: 03/10/21 16:52 Freq: Status: Active Protocol: Document 03/11/21 08:59 [facility] (Rec: 03/11/21 09:45 [facility] [id number]) Manual Assessments Soft Tissue Assessment Soft Tissue Mobility Assessment L>R Glutes, ES & QL PT-OP-G Mobility & Gait Start: 03/10/21 16:52 Freq: Status: Active Protocol: Document 03/11/21 08:59 [facility] (Rec: 03/11/21 09:45 [facility] [id number]) OP Mobility Evaluation Bed Mobility Rolling more difficult R, very segmental in movement Supine to and from Sit log roll in/out, slow and segmental Transfers Sit to Stand hard push from chair w/inc time OP Gait Assessment Comments Gait Comments leaning to L and lat leaning B , very stiff and slow, dec psuh off PT-OP-J Posture/Palpation/Skin Start: 03/10/21 16:52 Freq: Status: Active Protocol: Document 03/11/21 08:59 [facility] (Rec: 03/11/21 09:45 [facility] [id number]) Posture Evaluation [facility] Postural Classification System [facility] Postural Classifications Posterior/Posterior Lumbar Protective Mechanism Left AP 0 Lumbar Protective Mechanism Right AP 0 Lumbar Protective Mechanism Left PA 0 Lumbar Protective Mechanism Right PA 0 Comments Posture Comments side bends and rotates left PT-OP-K Range of Motion Start: 03/10/21 16:52 Freq: Status: Active Protocol: Document 03/11/21 08:59 [facility] (Rec: 03/11/21 09:45 [facility] [id number]) Lumbar Spine Range of Motion Lumbar Spine Active Degrees Flexion 30 Extension 18 Rotation Left 38 Rotation Right 12 Lateral Flexion Left 25 Lateral Flexion Right 14 PT-OP-L Special Tests Start: 03/10/21 16:52 Freq: Status: Active Protocol: Document 03/11/21 08:59 [facility] (Rec: 03/11/21 09:45 [facility] [id number]) Special Tests Lumbar Spine Special Tests Straight Leg Raise Test Results L 45 deg pain in buttock w/opp knee bent Comments R 71 HS stretch Slump Test Results positive L PT-OP-M Strength Start: 03/10/21 16:52 Freq: Status: Active Protocol: Document 06/12/21 08:28 [facility] (Rec: 06/12/21 09:03 [facility] [id number]) Hip Strength Hip Manual Muscle Testing Left Flexion (L2) 3+ Fair+ Abduction 3+ Fair+ External Rotation 4 Good Internal Rotation 5 Normal Right Flexion (L2) 3+ Fair+ Abduction 3+ Fair+ External Rotation 4 Good Internal Rotation 5 Normal Comments LPM PA 1/5 B, AP 0/5 Knee Strength Knee Manual Muscle Testing Left Flexion (S2) 5 Normal Extension (L3) 4+ Good+ Right Flexion (S2) 5 Normal Extension (L3) 4+ Good+ Ankle/Foot Strength Ankle and Foot Manual Muscle Testing Left Dorsiflexion (L4) 5 Normal Plantarflexion (S1) 5 Normal Comments PF tested seated B Right Dorsiflexion (L4) 5 Normal Plantarflexion (S1) 5 Normal PT-OP-Q Treatments Start: 03/10/21 16:52 Freq: Status: Active Protocol: Document 06/23/21 10:21 MA (Rec: 06/23/21 11:06 MA [id number]) Cardio Equipment Recumbent Elliptical ([employer]) Duration (Minutes) 6 Resistance 4-6 Seat Position 4 Therapeutic Exercises Supine Exercises stretch Supine Exercise Name HS Side left Reps/Minutes 2x30 sec Comments around posterior HS to help pt hold leg LTR Side bilateral Reps/Minutes 4x Comments reviewed for HEP answering pt' s questions SKTC Side bilateral Reps/Minutes 30sec Standing Exercises squats Standing Exercise Name mini holding ballet bar Side bilateral Reps/Minutes 2x8 Comments cues for trunk flexion with descent hip ext Side bilateral Reps/Minutes 2x6 Comments focus on core & comfortable range, knee/ hip ext Gait Training Gait Activity level Description Turning Comments Worked on turning with LEs moving with torso vs segmentally twisting torso before turning hips/legs Manual Therapy Treatment Soft Tissue Mobilization lumbar Body Location ES & QL Mobilization Type Rolling,Sustained Pressure Intensity/Depth Moderate Body Position Sidelying PT-OP-T Assessment and Plan Start: 03/10/21 16:52 Freq: Status: Active Protocol: Document 06/23/21 10:21 MA (Rec: 06/23/21 11:06 MA [id number]) Physical Therapy Assessment Goals activity tolerance Short Term Goal (STG) Pt will be able to walk without cane in house and for short distancesw ith good mechancis. STG Duration achieved [employer] Hand Goal (LTG) Pt will be able to go for 1 mile walk without cane without more than 2 point pain inc. 05/14-able to do 1 mile w/5/10 pain LTG Duration achieved starts at 1-2/10 and inc to 3-4/10 Four Impairment RADHA 28/50 Short Term Goal (STG) Pt will imrpove score of RADHA to less than 20/50 to show improved functional ability. 04/09-improved to 23/50 05/14-22/50 06/12- STG Duration 06/07/21 Half-Way Goal (LTG) Pt will imrpove score of RADHA to less than 10/50 to show improved functional ability. LTG Duration 07/14/21 Three Impairment transitions Short Term Goal (STG) Pt will be able to roll & do log roll for in/out of bed without difficulty or inc pain . 04/09-improved ability w/less pain 05/14-difficulty w/bridging 06/12-getting into bed going well, getting out of bed still most difficult w/bridge STG Duration 06/13/21 [employer] Hand Goal (LTG) Pt wilb e able to do 5 sit to stands with UEs w/o inc pain or difficulty to show imrpoved ability for transitions & improved LE strength 05/14-reports just discomfort 06/12-still painful LTG Duration 07/14/21 Two Impairment strength Short Term Goal (STG) Pt will be indep w/HEP STG Duration achieved [employer] Maker Hand Goal (LTG) pt will have at least 4+/5 LE strength B in all planes and 2 /5 LPM to show improved staiblity to allow pt to do typical ADLs without inc pain. 04/09-improving 05/14-slowly improving 06/12-cont small improvements LTG Duration 07/11/21 One Short Term Goal (STG) Pt will improve flex ROM to at least 50 deg in order to allow her to reach for objects w/greater ease. 04/09-slowly improving 05/14-still very painful 06/12-can get to 50 deg but significant pain. pain starts at 30 deg STG Duration 06/29/21 Assessment Summary Assessment Pt arrives with increased back pain today after increasing walking distance over the weekend and driving to [place] . PHARMACIST CRITICAL CARE noticed pt twists torso when turning before stepping with LEs. Worked on turning with LEs, hips, and torso together vs segmentally with pt having less pain when turning but feeling ocassional pinching in L hip. Physical Therapy Plan Frequency and Duration Frequency of Treatment 1-2x/Week Duration of Treatment 2 months Plan of Care Start Date 05/14/21 Plan of Care End Date 07/11/21 Therapeutic Interventions Therapeutic Interventions Aquatic Therapy,Balance Training,Gait Training,Home Exercise Program,Joint Mobilizations,Manual Therapy, Neuromuscular Re-education, Patient/Caregiver Education, Self-Care/Home Management,Soft Tissue Mobilization,Taping, Therapeutic Activities, Therapeutic Exercises Modalities Cold Pack/Ice Massage,Electric Stimulation,Hot Packs, Ultrasound Next Visit Focus/Plan Next Note Type Treatment Note Next Visit Plan cont to work on ability to sqaut, work on standing posture & gait & hip stability /strength
--- NOTE | 2021-06-27 16:50 | PT.OTN ---
Current Diagnoses Spondylolisthesis, lumbar region (06/27/21) Other spondylosis with radiculopathy, lumbosacral region (06/27/21) Spinal stenosis, lumbar region without neurogenic claudication (06/27/21) Difficulty in walking, not elsewhere classified (06/27/21) Abnormal posture (06/27/21) Weakness (06/27/21) Physical Therapy Treatment Note PT-OP-A Visit Information Start: 03/10/21 16:52 Freq: Status: Active Protocol: Document 06/27/21 16:05 MA (Rec: 06/27/21 16:50 MA [id number]) Out-Patient Physical Therapy Visit Information Visit Information Visit Type Treatment Note Visit Note 04/07 Visit Start Time 16:00 Visit Stop Time 16:45 Total Visit Minutes 45 Visit Number 30 Number of DIRECTOR MARKETING Visits 2 Precautions Precautions Abdominal surgeries: appendectomy, cholecystectomy Lumbar surgery PT-OP-B Current Condition Start: 03/10/21 16:52 Freq: Status: Active Protocol: Document 03/11/21 08:59 [facility] (Rec: 03/11/21 09:45 [facility] [id number]) Current Condition History of Current Condition Onset Date TLIF 10/07/20 Current Complaints back pain History of Current Condition Pt had years and years of back pain which led her to surgery . She had a surgery by Dr. Longoria several years ago and it was compressing more so had L3-L4 TLIF 10/07/20. Pt went to rehab for 6 weeks and did HH PT and OT until January and feels like she lost all her progress. Pt was not having any issue getting up out of bed or a chair and now is. She had more consistant pain then but now it changes on a daily basis. Some days the entire area of the surgery hurts but last couple days, it has just been painful on L side. Pt reports prior to surgery, she had sciatica into RLE for several years, but now just feeling tight in BLEs. She tries to do stretches before gets out of bed, but it still bothers her. Pt has been doing HH exercises consistanly. She walked 4 miles before surgery but now if she gets 1/2 mile, she feels jessica d/t pain stopping her beofre that. Pt has been getting out for little walks (to mailbox, errands, etc). pt did not use cane prior to surgery. Pt reports 2 falls d/t dizziness when she first got home. Occ lists to L when dizzy when first get up. Prior Treatments and Tests SNF rehab & HH PT, PT prior to surgery for lymphadema (L arm )-pt does think she may have lymphadema in legs too though, and PT for scaitica ( did help) Treatment Goals Patient/Caregiver Goals wants to be able to get back out of bed again, be able to go out and walk more, be able to get rid of the cane. Personal Factors Other Personal Factors That May Effect 2 c-scetions, appy, Therapy/Recovery gallbladder removals, has a diastasis, CHF, lymphedema, liver disease, DM II, dizziness occ PT-OP-C Subjective Start: 03/10/21 16:52 Freq: Status: Active Protocol: Document 06/27/21 16:05 MA (Rec: 06/27/21 16:50 MA [id number]) OP-PT Subjective Patient Comments Patient Comments Pt reports her pain has been about the same all week. She has walked 1 mile today PT-OP-F Manual Assessment Start: 03/10/21 16:52 Freq: Status: Active Protocol: Document 03/11/21 08:59 [facility] (Rec: 03/11/21 09:45 [facility] [id number]) Manual Assessments Soft Tissue Assessment Soft Tissue Mobility Assessment L>R Glutes, ES & QL PT-OP-G Mobility & Gait Start: 03/10/21 16:52 Freq: Status: Active Protocol: Document 03/11/21 08:59 [facility] (Rec: 03/11/21 09:45 [facility] [id number]) OP Mobility Evaluation Bed Mobility Rolling more difficult R, very segmental in movement Supine to and from Sit log roll in/out, slow and segmental Transfers Sit to Stand hard push from chair w/inc time OP Gait Assessment Comments Gait Comments leaning to L and lat leaning B , very stiff and slow, dec psuh off PT-OP-J Posture/Palpation/Skin Start: 03/10/21 16:52 Freq: Status: Active Protocol: Document 03/11/21 08:59 [facility] (Rec: 03/11/21 09:45 [facility] [id number]) Posture Evaluation [facility] Postural Classification System [facility] Postural Classifications Posterior/Posterior Lumbar Protective Mechanism Left AP 0 Lumbar Protective Mechanism Right AP 0 Lumbar Protective Mechanism Left PA 0 Lumbar Protective Mechanism Right PA 0 Comments Posture Comments side bends and rotates left PT-OP-K Range of Motion Start: 03/10/21 16:52 Freq: Status: Active Protocol: Document 03/11/21 08:59 [facility] (Rec: 03/11/21 09:45 [facility] [id number]) Lumbar Spine Range of Motion Lumbar Spine Active Degrees Flexion 30 Extension 18 Rotation Left 38 Rotation Right 12 Lateral Flexion Left 25 Lateral Flexion Right 14 PT-OP-L Special Tests Start: 03/10/21 16:52 Freq: Status: Active Protocol: Document 03/11/21 08:59 [facility] (Rec: 03/11/21 09:45 [facility] [id number]) Special Tests Lumbar Spine Special Tests Straight Leg Raise Test Results L 45 deg pain in buttock w/opp knee bent Comments R 71 HS stretch Slump Test Results positive L PT-OP-M Strength Start: 03/10/21 16:52 Freq: Status: Active Protocol: Document 06/12/21 08:28 [facility] (Rec: 06/12/21 09:03 [facility] [id number]) Hip Strength Hip Manual Muscle Testing Left Flexion (L2) 3+ Fair+ Abduction 3+ Fair+ External Rotation 4 Good Internal Rotation 5 Normal Right Flexion (L2) 3+ Fair+ Abduction 3+ Fair+ External Rotation 4 Good Internal Rotation 5 Normal Comments LPM PA 1/5 B, AP 0/5 Knee Strength Knee Manual Muscle Testing Left Flexion (S2) 5 Normal Extension (L3) 4+ Good+ Right Flexion (S2) 5 Normal Extension (L3) 4+ Good+ Ankle/Foot Strength Ankle and Foot Manual Muscle Testing Left Dorsiflexion (L4) 5 Normal Plantarflexion (S1) 5 Normal Comments PF tested seated B Right Dorsiflexion (L4) 5 Normal Plantarflexion (S1) 5 Normal PT-OP-Q Treatments Start: 03/10/21 16:52 Freq: Status: Active Protocol: Document 06/27/21 16:05 MA (Rec: 06/27/21 16:50 MA [id number]) Cardio Equipment Recumbent Elliptical ([employer]) Duration (Minutes) 6 Resistance 4-6 Seat Position 4 Therapeutic Exercises Supine Exercises SLR Supine Exercise Name straight leg raise-focus on core engagement Side bilateral Reps/Minutes 2x5 LTR Side bilateral Reps/Minutes 10x 10SH Comments reviewed for HEP answering pt' s questions SKTC Side bilateral Reps/Minutes 30sec Standing Exercises squats Standing Exercise Name mini holding ballet bar Side bilateral Reps/Minutes 2x8 Comments cues for trunk flexion with descent hip ext Side bilateral Reps/Minutes 2x8 Comments focus on core & comfortable range, knee/ hip ext Manual Therapy Treatment Soft Tissue Mobilization iliacus Body Location L Mobilization Type Sustained Pressure Comments w/hip IR/ER lumbar Body Location ES & QL Mobilization Type Rolling,Sustained Pressure Intensity/Depth Moderate Body Position Sidelying glutes Body Location bilateral Mobilization Type Rolling,Sustained Pressure Intensity/Depth Moderate Body Position Sidelying PT-OP-T Assessment and Plan Start: 03/10/21 16:52 Freq: Status: Active Protocol: Document 06/27/21 16:05 MA (Rec: 06/27/21 16:50 MA [id number]) Physical Therapy Assessment Goals activity tolerance Short Term Goal (STG) Pt will be able to walk without cane in house and for short distancesw ith good mechancis. STG Duration achieved Vascular Neurologist Goal (LTG) Pt will be able to go for 1 mile walk without cane without more than 2 point pain inc. 05/14-able to do 1 mile w/5/10 pain LTG Duration achieved starts at 1-2/10 and inc to 3-4/10 Four Impairment RADHA 28/50 Short Term Goal (STG) Pt will imrpove score of RADHA to less than 20/50 to show improved functional ability. 04/09-improved to 23/50 05/14-2250 06/12-22 STG Duration 06/07/21 Vascular Neurologist Goal (LTG) Pt will imrpove score of RADHA to less than 10/50 to show improved functional ability. LTG Duration 07/14/21 Three Impairment transitions Short Term Goal (STG) Pt will be able to roll & do log roll for in/out of bed without difficulty or inc pain . 04/09-improved ability w/less pain 05/14-difficulty w/bridging 06/12-getting into bed going well, getting out of bed still most difficult w/bridge STG Duration 06/13/21 Detention Goal (LTG) Pt toro e able to do 5 sit to stands with UEs w/o inc pain or difficulty to show imrpoved ability for transitions & improved LE strength 05/14-reports just discomfort 06/12-still painful LTG Duration 07/14/21 Two Impairment strength Short Term Goal (STG) Pt will be indep w/HEP STG Duration achieved Vascular Neurologist Goal (LTG) pt will have at least 4+/5 LE strength B in all planes and 2 /5 LPM to show improved staiblity to allow pt to do typical ADLs without inc pain. 04/09-improving 05/14-slowly improving 06/12-cont small improvements LTG Duration 07/11/21 One Short Term Goal (STG) Pt will improve flex ROM to at least 50 deg in order to allow her to reach for objects w/greater ease. 04/09-slowly improving 05/14-still very painful 06/12-can get to 50 deg but significant pain. pain starts at 30 deg STG Duration 06/29/21 Assessment Summary Assessment Pt has less back pain today. She moves better during bed mobility rolling from side to side but continues to have pain with the movement. Encouraged pt to continue with piriformis stretches, SKTC, and LTR at home as well as her hip strengthening exercises. Physical Therapy Plan Frequency and Duration Frequency of Treatment 1-2x/Week Duration of Treatment 2 months Plan of Care Start Date 05/14/21 Plan of Care End Date 07/11/21 Therapeutic Interventions Therapeutic Interventions Aquatic Therapy,Balance Training,Gait Training,Home Exercise Program,Joint Mobilizations,Manual Therapy, Neuromuscular Re-education, Patient/Caregiver Education, Self-Care/Home Management,Soft Tissue Mobilization,Taping, Therapeutic Activities, Therapeutic Exercises Modalities Cold Pack/Ice Massage,Electric Stimulation,Hot Packs, Ultrasound Next Visit Focus/Plan Next Note Type Treatment Note Next Visit Plan cont to work on ability to sqaut, work on standing posture & gait & hip stability /strength
--- NOTE | 2021-07-03 13:43 | PT.OTN ---
Current Diagnoses Spondylolisthesis, lumbar region (07/03/21) Other spondylosis with radiculopathy, lumbosacral region (07/03/21) Spinal stenosis, lumbar region without neurogenic claudication (07/03/21) Difficulty in walking, not elsewhere classified (07/03/21) Abnormal posture (07/03/21) Weakness (07/03/21) Physical Therapy Treatment Note PT-OP-A Visit Information Start: 03/10/21 16:52 Freq: Status: Active Protocol: Document 07/03/21 13:00 [facility] (Rec: 07/03/21 13:42 [facility] [id number]) Out-Patient Physical Therapy Visit Information Visit Information Visit Type Treatment Note Visit Note 05/08 Visit Start Time 13:00 Visit Stop Time 13:40 Total Visit Minutes 40 Visit Number 31 Number of NONPROFIT DIRECTOR Visits 0 PT-OP-B Current Condition Start: 03/10/21 16:52 Freq: Status: Active Protocol: Document 03/11/21 08:59 [facility] (Rec: 03/11/21 09:45 [facility] [id number]) Current Condition History of Current Condition Onset Date TLIF 10/07/20 Current Complaints back pain History of Current Condition Pt had years and years of back pain which led her to surgery . She had a surgery by Dr. Longoria several years ago and it was compressing more so had L3-L4 TLIF 10/07/20. Pt went to rehab for 6 weeks and did HH PT and OT until January and feels like she lost all her progress. Pt was not having any issue getting up out of bed or a chair and now is. She had more consistant pain then but now it changes on a daily basis. Some days the entire area of the surgery hurts but last couple days, it has just been painful on L side. Pt reports prior to surgery, she had sciatica into RLE for several years, but now just feeling tight in BLEs. She tries to do stretches before gets out of bed, but it still bothers her. Pt has been doing HH exercises consistanly. She walked 4 miles before surgery but now if she gets 1/2 mile, she feels jessica d/t pain stopping her beofre that. Pt has been getting out for little walks (to mailbox, errands, etc). pt did not use cane prior to surgery. Pt reports 2 falls d/t dizziness when she first got home. Occ lists to L when dizzy when first get up. Prior Treatments and Tests SNF rehab & HH PT, PT prior to surgery for lymphadema (L arm )-pt does think she may have lymphadema in legs too though, and PT for scaitica ( did help) Treatment Goals Patient/Caregiver Goals wants to be able to get back out of bed again, be able to go out and walk more, be able to get rid of the cane. Personal Factors Other Personal Factors That May Effect 2 c-scetions, appy, Therapy/Recovery gallbladder removals, has a diastasis, CHF, lymphedema, liver disease, DM II, dizziness occ PT-OP-C Subjective Start: 03/10/21 16:52 Freq: Status: Active Protocol: Document 07/03/21 13:00 [facility] (Rec: 07/03/21 13:42 [facility] [id number]) OP-PT Subjective Patient Comments Patient Comments Pt reports she did one day of pool exercise. After about 35 min in her back started bothering her so she left the pool about then. I still feel like I should have a lot less pain. PT-OP-F Manual Assessment Start: 03/10/21 16:52 Freq: Status: Active Protocol: Document 03/11/21 08:59 [facility] (Rec: 03/11/21 09:45 [facility] [id number]) Manual Assessments Soft Tissue Assessment Soft Tissue Mobility Assessment L>R Glutes, ES & QL PT-OP-G Mobility & Gait Start: 03/10/21 16:52 Freq: Status: Active Protocol: Document 03/11/21 08:59 [facility] (Rec: 03/11/21 09:45 [facility] [id number]) OP Mobility Evaluation Bed Mobility Rolling more difficult R, very segmental in movement Supine to and from Sit log roll in/out, slow and segmental Transfers Sit to Stand hard push from chair w/inc time OP Gait Assessment Comments Gait Comments leaning to L and lat leaning B , very stiff and slow, dec psuh off PT-OP-J Posture/Palpation/Skin Start: 03/10/21 16:52 Freq: Status: Active Protocol: Document 03/11/21 08:59 [facility] (Rec: 03/11/21 09:45 [facility] [id number]) Posture Evaluation [facility] Postural Classification System Inocencia Postural Classifications Posterior/Posterior Lumbar Protective Mechanism Left AP 0 Lumbar Protective Mechanism Right AP 0 Lumbar Protective Mechanism Left PA 0 Lumbar Protective Mechanism Right PA 0 Comments Posture Comments side bends and rotates left PT-OP-K Range of Motion Start: 03/10/21 16:52 Freq: Status: Active Protocol: Document 03/11/21 08:59 [facility] (Rec: 03/11/21 09:45 [facility] [id number]) Lumbar Spine Range of Motion Lumbar Spine Active Degrees Flexion 30 Extension 18 Rotation Left 38 Rotation Right 12 Lateral Flexion Left 25 Lateral Flexion Right 14 PT-OP-L Special Tests Start: 03/10/21 16:52 Freq: Status: Active Protocol: Document 03/11/21 08:59 [facility] (Rec: 03/11/21 09:45 [facility] [id number]) Special Tests Lumbar Spine Special Tests Straight Leg Raise Test Results L 45 deg pain in buttock w/opp knee bent Comments R 71 HS stretch Slump Test Results positive L PT-OP-M Strength Start: 03/10/21 16:52 Freq: Status: Active Protocol: Document 06/12/21 08:28 [facility] (Rec: 06/12/21 09:03 [facility] [id number]) Hip Strength Hip Manual Muscle Testing Left Flexion (L2) 3+ Fair+ Abduction 3+ Fair+ External Rotation 4 Good Internal Rotation 5 Normal Right Flexion (L2) 3+ Fair+ Abduction 3+ Fair+ External Rotation 4 Good Internal Rotation 5 Normal Comments LPM PA 1/5 B, AP 0/5 Knee Strength Knee Manual Muscle Testing Left Flexion (S2) 5 Normal Extension (L3) 4+ Good+ Right Flexion (S2) 5 Normal Extension (L3) 4+ Good+ Ankle/Foot Strength Ankle and Foot Manual Muscle Testing Left Dorsiflexion (L4) 5 Normal Plantarflexion (S1) 5 Normal Comments PF tested seated B Right Dorsiflexion (L4) 5 Normal Plantarflexion (S1) 5 Normal PT-OP-Q Treatments Start: 03/10/21 16:52 Freq: Status: Active Protocol: Document 07/03/21 13:00 [facility] (Rec: 07/03/21 13:42 [facility] [id number]) Cardio Equipment Recumbent Elliptical ([employer]) Duration (Minutes) 6 Resistance 6 Seat Position 4 Gym Equipment Therapeutic Ball seated Ball Size/Color 65 cm Body Position seated Reps/Duration 15 Comments rotation w/lvl 1 band 2 strands Therapeutic Exercises Supine Exercises SLR Supine Exercise Name january d/t SLR too painful Side bilateral Reps/Minutes 2x5 Comments focus on core and no back movement Pelvic tilt Supine Exercise Name w/BKFO Side bilateral Reps/Minutes 2x10 Sitting Exercises sit up Sitting Exercise Name lean back at EOB bed Side bilateral Reps/Minutes 10 w/yard stick on back 10 w/o Standing Exercises step up Side bilateral Equipment Used 4in step then 5 in step Reps/Minutes 8 ea Comments no rail use Manual Therapy Treatment Soft Tissue Mobilization lumbar Body Location ES & QL Mobilization Type Rolling,Sustained Pressure Intensity/Depth Moderate Body Position Sidelying PT-OP-T Assessment and Plan Start: 03/10/21 16:52 Freq: Status: Active Protocol: Document 07/03/21 13:00 [facility] (Rec: 07/03/21 13:42 [facility] [id number]) Physical Therapy Assessment Goals activity tolerance Short Term Goal (STG) Pt will be able to walk without cane in house and for short distancesw ith good mechancis. STG Duration achieved Group Home Goal (LTG) Pt will be able to go for 1 mile walk without cane without more than 2 point pain inc. 05/14-able to do 1 mile w/5/10 pain LTG Duration achieved starts at 1-2/10 and inc to 3-4/10 Four Impairment RADHA 28/50 Short Term Goal (STG) Pt will imrpove score of RADHA to less than 20/50 to show improved functional ability. 04/09-improved to 23/50 05/14-22/50 06/12-22 STG Duration 06/07/21 Group Home Goal (LTG) Pt will imrpove score of RADHA to less than 10/50 to show improved functional ability. LTG Duration 07/14/21 Three Impairment transitions Short Term Goal (STG) Pt will be able to roll & do log roll for in/out of bed without difficulty or inc pain . 04/09-improved ability w/less pain 05/14-difficulty w/bridging 06/12-getting into bed going well, getting out of bed still most difficult w/bridge STG Duration 06/13/21 Group Home Goal (LTG) Pt wilb e able to do 5 sit to stands with UEs w/o inc pain or difficulty to show imrpoved ability for transitions & improved LE strength 05/14-reports just discomfort 06/12-still painful LTG Duration 07/14/21 Two Impairment strength Short Term Goal (STG) Pt will be indep w/HEP STG Duration achieved Filament Tester Goal (LTG) pt will have at least 4+/5 LE strength B in all planes and 2 /5 LPM to show improved staiblity to allow pt to do typical ADLs without inc pain. 04/09-improving 05/14-slowly improving 06/12-cont small improvements LTG Duration 07/11/21 One Short Term Goal (STG) Pt will improve flex ROM to at least 50 deg in order to allow her to reach for objects w/greater ease. 04/09-slowly improving 05/14-still very painful 06/12-can get to 50 deg but significant pain. pain starts at 30 deg STG Duration 06/29/21 Assessment Summary Assessment Supine core exercises were signifcnatly difficulty for pt and pt requried a lot of tactile cues to work on no movement for trunk during leg movements. Imrpoved w/step ups w/ability to do 5 in step up w/o rail today Physical Therapy Plan Frequency and Duration Frequency of Treatment 1-2x/Week Duration of Treatment 2 months Plan of Care Start Date 05/14/21 Plan of Care End Date 07/11/21 Next Visit Focus/Plan Next Note Type Progress Note Next Visit Plan new POC,cont to work on ability to sqaut, work on standing posture & gait & hip stability/strength
--- NOTE | 2021-07-10 13:43 | PT.OTN ---
Current Diagnoses Spondylolisthesis, lumbar region (07/10/21) Other spondylosis with radiculopathy, lumbosacral region (07/10/21) Spinal stenosis, lumbar region without neurogenic claudication (07/10/21) Difficulty in walking, not elsewhere classified (07/10/21) Abnormal posture (07/10/21) Weakness (07/10/21) Physical Therapy Treatment Note PT-OP-A Visit Information Start: 03/10/21 16:52 Freq: Status: Active Protocol: Document 07/10/21 13:05 [facility] (Rec: 07/10/21 13:43 [facility] [id number]) Out-Patient Physical Therapy Visit Information Visit Information Visit Type Progress Note Visit Note 12/08 Visit Start Time 13:00 Visit Stop Time 13:38 Total Visit Minutes 38 Visit Number 32 Number of COSMETICS AND TOILETRIES SALESPERSON Visits 0 PT-OP-B Current Condition Start: 03/10/21 16:52 Freq: Status: Active Protocol: Document 03/11/21 08:59 [facility] (Rec: 03/11/21 09:45 [facility] [id number]) Current Condition History of Current Condition Onset Date TLIF 10/07/20 Current Complaints back pain History of Current Condition Pt had years and years of back pain which led her to surgery . She had a surgery by Dr. Longoria several years ago and it was compressing more so had L3-L4 TLIF 10/07/20. Pt went to rehab for 6 weeks and did HH PT and OT until January and feels like she lost all her progress. Pt was not having any issue getting up out of bed or a chair and now is. She had more consistant pain then but now it changes on a daily basis. Some days the entire area of the surgery hurts but last couple days, it has just been painful on L side. Pt reports prior to surgery, she had sciatica into RLE for several years, but now just feeling tight in BLEs. She tries to do stretches before gets out of bed, but it still bothers her. Pt has been doing HH exercises consistanly. She walked 4 miles before surgery but now if she gets 1/2 mile, she feels jessica d/t pain stopping her beofre that. Pt has been getting out for little walks (to mailbox, errands, etc). pt did not use cane prior to surgery. Pt reports 2 falls d/t dizziness when she first got home. Occ lists to L when dizzy when first get up. Prior Treatments and Tests SNF rehab & HH PT, PT prior to surgery for lymphadema (L arm )-pt does think she may have lymphadema in legs too though, and PT for scaitica ( did help) Treatment Goals Patient/Caregiver Goals wants to be able to get back out of bed again, be able to go out and walk more, be able to get rid of the cane. Personal Factors Other Personal Factors That May Effect 2 c-scetions, appy, Therapy/Recovery gallbladder removals, has a diastasis, CHF, lymphedema, liver disease, DM II, dizziness occ PT-OP-C Subjective Start: 03/10/21 16:52 Freq: Status: Active Protocol: Document 07/10/21 13:05 [facility] (Rec: 07/10/21 13:43 [facility] [id number]) OP-PT Subjective Patient Comments Patient Comments Pt reports feeling like she is more flexible now Patient Reported Progress Improving PT-OP-F Manual Assessment Start: 03/10/21 16:52 Freq: Status: Active Protocol: Document 03/11/21 08:59 [facility] (Rec: 03/11/21 09:45 [facility] [id number]) Manual Assessments Soft Tissue Assessment Soft Tissue Mobility Assessment L>R Glutes, ES & QL PT-OP-G Mobility & Gait Start: 03/10/21 16:52 Freq: Status: Active Protocol: Document 03/11/21 08:59 [facility] (Rec: 03/11/21 09:45 [facility] [id number]) OP Mobility Evaluation Bed Mobility Rolling more difficult R, very segmental in movement Supine to and from Sit log roll in/out, slow and segmental Transfers Sit to Stand hard push from chair w/inc time OP Gait Assessment Comments Gait Comments leaning to L and lat leaning B , very stiff and slow, dec psuh off PT-OP-J Posture/Palpation/Skin Start: 03/10/21 16:52 Freq: Status: Active Protocol: Document 03/11/21 08:59 [facility] (Rec: 03/11/21 09:45 [facility] [id number]) Posture Evaluation [employer] Postural Classification System Inocencia Postural Classifications Posterior/Posterior Lumbar Protective Mechanism Left AP 0 Lumbar Protective Mechanism Right AP 0 Lumbar Protective Mechanism Left PA 0 Lumbar Protective Mechanism Right PA 0 Comments Posture Comments side bends and rotates left PT-OP-K Range of Motion Start: 03/10/21 16:52 Freq: Status: Active Protocol: Document 03/11/21 08:59 [facility] (Rec: 03/11/21 09:45 [facility] [id number]) Lumbar Spine Range of Motion Lumbar Spine Active Degrees Flexion 30 Extension 18 Rotation Left 38 Rotation Right 12 Lateral Flexion Left 25 Lateral Flexion Right 14 PT-OP-L Special Tests Start: 03/10/21 16:52 Freq: Status: Active Protocol: Document 03/11/21 08:59 [facility] (Rec: 03/11/21 09:45 [facility] [id number]) Special Tests Lumbar Spine Special Tests Straight Leg Raise Test Results L 45 deg pain in buttock w/opp knee bent Comments R 71 HS stretch Slump Test Results positive L PT-OP-M Strength Start: 03/10/21 16:52 Freq: Status: Active Protocol: Document 07/10/21 13:05 [facility] (Rec: 07/10/21 13:43 [facility] [id number]) Hip Strength Hip Manual Muscle Testing Left Flexion (L2) 3+ Fair+ Abduction 3+ Fair+ External Rotation 4 Good Internal Rotation 5 Normal Right Flexion (L2) 3+ Fair+ Abduction 4- Good- External Rotation 4 Good Internal Rotation 5 Normal Comments LPM PA 2/5 B, AP 0/5 L 2/5 R Knee Strength Knee Manual Muscle Testing Left Flexion (S2) 5 Normal Extension (L3) 5 Normal Right Flexion (S2) 4 Good Extension (L3) 5 Normal Ankle/Foot Strength Ankle and Foot Manual Muscle Testing Left Dorsiflexion (L4) 5 Normal Plantarflexion (S1) 5 Normal Comments PF tested seated B Right Dorsiflexion (L4) 5 Normal Plantarflexion (S1) 5 Normal PT-OP-Q Treatments Start: 03/10/21 16:52 Freq: Status: Active Protocol: Document 07/10/21 13:05 [facility] (Rec: 07/10/21 13:43 [facility] [id number]) Cardio Equipment Recumbent Elliptical ([employer]) Duration (Minutes) 6 Resistance 4-5 Seat Position 4 Therapeutic Exercises Supine Exercises SLR Supine Exercise Name january d/t SLR too painful Side bilateral Reps/Minutes 2x20 Comments focus on core and no back movement supine ER Supine Exercise Name core tight BKFO Side bilateral Reps/Minutes 10 Sitting Exercises sit up Sitting Exercise Name lean back at EOB bed Side bilateral Reps/Minutes 10 TAbd Sitting Exercise Name w/alt march Side bilateral Reps/Minutes 10 Standing Exercises step up Side bilateral Equipment Used 6 in Reps/Minutes 10 ea Comments no rail use PT-OP-T Assessment and Plan Start: 03/10/21 16:52 Freq: Status: Active Protocol: Document 07/10/21 13:05 [facility] (Rec: 07/10/21 13:43 [facility] [id number]) Physical Therapy Assessment Goals activity tolerance Short Term Goal (STG) Pt will be able to walk without cane in house and for short distancesw ith good mechancis. STG Duration achieved Teacher Tutor Goal (LTG) Pt will be able to go for 1 mile walk without cane without more than 2 point pain inc. 05/14-able to do 1 mile w/5/10 pain LTG Duration achieved starts at 1-01/08 and inc to 3-4/10 Four Impairment RADHA 28/50 Short Term Goal (STG) Pt will imrpove score of RADHA to less than 20/50 to show improved functional ability. 04/09-improved to 23/50 05/14-22/50 06/12-22/50 STG Duration achieved to 19/50 Teacher Tutor Goal (LTG) Pt will imrpove score of RADHA to less than 10/50 to show improved functional ability. LTG Duration 07/31/21 Three Impairment transitions Short Term Goal (STG) Pt will be able to roll & do log roll for in/out of bed without difficulty or inc pain . 04/09-improved ability w/less pain 05/14-difficulty w/bridging 06/12-getting into bed going well, getting out of bed still most difficult w/bridge STG Duration achieved at home Teacher Tutor Goal (LTG) Pt wilb e able to do 5 sit to stands with UEs w/o inc pain or difficulty to show imrpoved ability for transitions & improved LE strength 05/14-reports just discomfort 06/12-still painful 07/10-able to do fluidly and quicker 5/10 pain LTG Duration 07/31 Two Impairment strength Short Term Goal (STG) Pt will be indep w/HEP STG Duration achieved Teacher Tutor Goal (LTG) pt will have at least 4+/5 LE strength B in all planes and 2 /5 LPM to show improved staiblity to allow pt to do typical ADLs without inc pain. 04/09-improving 05/14-slowly improving 06/12-cont small improvements LTG Duration 07/31/21 One Short Term Goal (STG) Pt will improve flex ROM to at least 50 deg in order to allow her to reach for objects w/greater ease. 04/09-slowly improving 05/14-still very painful 06/12-can get to 50 deg but significant pain. pain starts at 30 deg STG Duration achieved but painful coming henrique up Assessment Summary Assessment Pt is cont to progress slowly with PT but is limited with her ability to mobilize without pain still. Plan to cont over next couple weeks with PT in order to have pt fully compliant and indep w/ HEP. She has improved strenth and ROM overall. She gets in at least a mile a day but last wednesday she got 2.25 in the day. Physical Therapy Plan Frequency and Duration Frequency of Treatment 1-2x/Week Duration of Treatment 3 weeks Plan of Care Start Date 07/10/21 Plan of Care End Date 07/31/21 Therapeutic Interventions Therapeutic Interventions Aquatic Therapy,Balance Training,Gait Training,Home Exercise Program,Joint Mobilizations,Manual Therapy, Neuromuscular Re-education, Patient/Caregiver Education, Self-Care/Home Management,Soft Tissue Mobilization,Taping, Therapeutic Activities, Therapeutic Exercises Modalities Cold Pack/Ice Massage,Electric Stimulation,Hot Packs, Ultrasound Next Visit Focus/Plan Next Note Type Progress Note Next Visit Plan new POC,cont to work on ability to sqaut, work on standing posture & gait & hip stability/strength
--- NOTE | 2021-07-10 13:43 | PT.OPPOC ---
Physical, Occupational & Speech Therapy At [facility] Current Diagnoses Spondylolisthesis, lumbar region (07/10/21) Other spondylosis with radiculopathy, lumbosacral region (07/10/21) Spinal stenosis, lumbar region without neurogenic claudication (07/10/21) Difficulty in walking, not elsewhere classified (07/10/21) Abnormal posture (07/10/21) Weakness (07/10/21) Visit Care Team Role Provider Type Radha Smith MD Primary Care Provider Physician Specialty: Family Practice Address: [address] [place] [address], [facility] [place], [address] Email: [email or web address] Provider Physician Referring Provider Specialty: Orthopedic Surgery Address: [address] [place] [address], [id number] Email: [email or web address] Plan Of Care PT-OP-T Assessment and Plan Start: 03/10/21 16:52 Freq: Status: Active Protocol: Document 07/10/21 13:05 [facility] (Rec: 07/10/21 13:43 [facility] [id number]) Physical Therapy Assessment Goals activity tolerance Short Term Goal (STG) Pt will be able to walk without cane in house and for short distancesw ith good mechancis. STG Duration achieved Senior Living Goal (LTG) Pt will be able to go for 1 mile walk without cane without more than 2 point pain inc. 05/14-able to do 1 mile w/5/10 pain LTG Duration achieved starts at 1-2/10 and inc to 3-4/10 Four Impairment RADHA 28/50 Short Term Goal (STG) Pt will imrpove score of RADHA to less than 20/50 to show improved functional ability. 04/09-improved to 23/50 05/14- 06/12- STG Duration achieved to 19/50 Senior Living Goal (LTG) Pt will imrpove score of RADHA to less than 10/50 to show improved functional ability. LTG Duration 07/31/21 Three Impairment transitions Short Term Goal (STG) Pt will be able to roll & do log roll for in/out of bed without difficulty or inc pain . 04/09-improved ability w/less pain 05/14-difficulty w/bridging 06/12-getting into bed going well, getting out of bed still most difficult w/bridge STG Duration achieved at home Court Orderly Goal (LTG) Pt wilb e able to do 5 sit to stands with UEs w/o inc pain or difficulty to show imrpoved ability for transitions & improved LE strength 05/14-reports just discomfort 06/12-still painful 07/10-able to do fluidly and quicker 5/10 pain LTG Duration 07/31 Two Impairment strength Short Term Goal (STG) Pt will be indep w/HEP STG Duration achieved Court Orderly Goal (LTG) pt will have at least 4+/5 LE strength B in all planes and 2 /5 LPM to show improved staiblity to allow pt to do typical ADLs without inc pain. 04/09-improving 05/14-slowly improving 06/12-cont small improvements LTG Duration 07/31/21 One Short Term Goal (STG) Pt will improve flex ROM to at least 50 deg in order to allow her to reach for objects w/greater ease. 04/09-slowly improving 05/14-still very painful 06/12-can get to 50 deg but significant pain. pain starts at 30 deg STG Duration achieved but painful coming henrique up Assessment Summary Assessment Pt is cont to progress slowly with PT but is limited with her ability to mobilize without pain still. Plan to cont over next couple weeks with PT in order to have pt fully compliant and indep w/ HEP. She has improved strenth and ROM overall. She gets in at least a mile a day but last wednesday she got 2.25 in the day. Physical Therapy Plan Frequency and Duration Frequency of Treatment 1-2x/Week Duration of Treatment 3 weeks Plan of Care Start Date 07/10/21 Plan of Care End Date 07/31/21 Therapeutic Interventions Therapeutic Interventions Aquatic Therapy,Balance Training,Gait Training,Home Exercise Program,Joint Mobilizations,Manual Therapy, Neuromuscular Re-education, Patient/Caregiver Education, Self-Care/Home Management,Soft Tissue Mobilization,Taping, Therapeutic Activities, Therapeutic Exercises Modalities Cold Pack/Ice Massage,Electric Stimulation,Hot Packs, Ultrasound Next Visit Focus/Plan Next Note Type Progress Note Next Visit Plan new POC,cont to work on ability to sqaut, work on standing posture & gait & hip stability/strength Plan of Care Dates Plan of Care Start Date 07/10/21 Plan of Care End Date 07/31/21 Electronically Signed by: Sarah Brito, PT 07/10/21 0270 Please Sign and Return: I have reviewed this Plan of Care and certify that the skilled therapy services above are required to meet the patient?s needs. Physician Signature Date Printed Name and Credentials Clinical Instructor Signature Printed Name and Credentials
--- NOTE | 2021-07-17 12:06 | PT.OTN ---
Current Diagnoses Spondylolisthesis, lumbar region (07/17/21) Other spondylosis with radiculopathy, lumbosacral region (07/17/21) Spinal stenosis, lumbar region without neurogenic claudication (07/17/21) Difficulty in walking, not elsewhere classified (07/17/21) Abnormal posture (07/17/21) Weakness (07/17/21) Physical Therapy Treatment Note PT-OP-A Visit Information Start: 03/10/21 16:52 Freq: Status: Active Protocol: Document 07/17/21 11:17 [facility] (Rec: 07/17/21 12:06 [facility] [id number]) Out-Patient Physical Therapy Visit Information Visit Information Visit Type Treatment Note Visit Note 01/08 Visit Start Time 11:20 Visit Stop Time 12:00 Total Visit Minutes 40 Visit Number 33 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 She had a surgery by Dr. Longoria several years ago and it was compressing more so had L3-L4 TLIF 10/07/20. Pt went to rehab for 6 weeks and did HH PT and OT until January and feels like she lost all her progress. Pt was not having any issue getting up out of bed or a chair and now is. She had more consistant pain then but now it changes on a daily basis. Some days the entire area of the surgery hurts but last couple days, it has just been painful on L side. Pt reports prior to surgery, she had sciatica into RLE for several years, but now just feeling tight in BLEs. She tries to do stretches before gets out of bed, but it still bothers her. Pt has been doing HH exercises consistanly. She walked 4 miles before surgery but now if she gets 1/2 mile, she feels jessica d/t pain stopping her beofre that. Pt has been getting out for little walks (to mailbox, errands, etc). pt did not use cane prior to surgery. Pt reports 2 falls d/t dizziness when she first got home. Occ lists to L when dizzy when first get up. Prior Treatments and Tests SNF rehab & HH PT, PT prior to surgery for lymphadema (L arm )-pt does think she may have lymphadema in legs too though, and PT for scaitica ( did help) Treatment Goals Patient/Caregiver Goals wants to be able to get back out of bed again, be able to go out and walk more, be able to get rid of the cane. Personal Factors Other Personal Factors That May Effect 2 c-scetions, appy, Therapy/Recovery gallbladder removals, has a diastasis, CHF, lymphedema, liver disease, DM II, dizziness occ PT-OP-C Subjective Start: 03/10/21 16:52 Freq: Status: Active Protocol: Document 07/17/21 11:17 [facility] (Rec: 07/17/21 12:06 [facility] [id number]) OP-PT Subjective Patient Comments Patient Comments Pt reports she went to the pool right before PT PT-OP-F Manual Assessment Start: 03/10/21 16:52 Freq: Status: Active Protocol: Document 03/11/21 08:59 [facility] (Rec: 03/11/21 09:45 [facility] [id number]) Manual Assessments Soft Tissue Assessment Soft Tissue Mobility Assessment L>R Glutes, ES & QL PT-OP-G Mobility & Gait Start: 03/10/21 16:52 Freq: Status: Active Protocol: Document 03/11/21 08:59 [facility] (Rec: 03/11/21 09:45 [facility] [id number]) OP Mobility Evaluation Bed Mobility Rolling more difficult R, very segmental in movement Supine to and from Sit log roll in/out, slow and segmental Transfers Sit to Stand hard push from chair w/inc time OP Gait Assessment Comments Gait Comments leaning to L and lat leaning B , very stiff and slow, dec psuh off PT-OP-J Posture/Palpation/Skin Start: 03/10/21 16:52 Freq: Status: Active Protocol: Document 03/11/21 08:59 [facility] (Rec: 03/11/21 09:45 [facility] [id number]) Posture Evaluation Inocencia Postural Classification System Inocencia Postural Classifications Posterior/Posterior Lumbar Protective Mechanism Left AP 0 Lumbar Protective Mechanism Right AP 0 Lumbar Protective Mechanism Left PA 0 Lumbar Protective Mechanism Right PA 0 Comments Posture Comments side bends and rotates left PT-OP-K Range of Motion Start: 03/10/21 16:52 Freq: Status: Active Protocol: Document 03/11/21 08:59 [facility] (Rec: 03/11/21 09:45 [facility] [id number]) Lumbar Spine Range of Motion Lumbar Spine Active Degrees Flexion 30 Extension 18 Rotation Left 38 Rotation Right 12 Lateral Flexion Left 25 Lateral Flexion Right 14 PT-OP-L Special Tests Start: 03/10/21 16:52 Freq: Status: Active Protocol: Document 03/11/21 08:59 [facility] (Rec: 03/11/21 09:45 [facility] [id number]) Special Tests Lumbar Spine Special Tests Straight Leg Raise Test Results L 45 deg pain in buttock w/opp knee bent Comments R 71 HS stretch Slump Test Results positive L PT-OP-M Strength Start: 03/10/21 16:52 Freq: Status: Active Protocol: Document 07/10/21 13:05 [facility] (Rec: 07/10/21 13:43 [facility] [id number]) Hip Strength Hip Manual Muscle Testing Left Flexion (L2) 3+ Fair+ Abduction 3+ Fair+ External Rotation 4 Good Internal Rotation 5 Normal Right Flexion (L2) 3+ Fair+ Abduction 4- Good- External Rotation 4 Good Internal Rotation 5 Normal Comments LPM PA 2/5 B, AP 0/5 L 2/5 R Knee Strength Knee Manual Muscle Testing Left Flexion (S2) 5 Normal Extension (L3) 5 Normal Right Flexion (S2) 4 Good Extension (L3) 5 Normal Ankle/Foot Strength Ankle and Foot Manual Muscle Testing Left Dorsiflexion (L4) 5 Normal Plantarflexion (S1) 5 Normal Comments PF tested seated B Right Dorsiflexion (L4) 5 Normal Plantarflexion (S1) 5 Normal PT-OP-Q Treatments Start: 03/10/21 16:52 Freq: Status: Active Protocol: Document 07/17/21 11:17 [facility] (Rec: 07/17/21 12:06 [facility] [id number]) Gym Equipment Shuttle Recovery leg press Details w/pPT Resistance 75# Shuttle Recovery Platform Stable Reps/Time 2x15 Therapeutic Exercises Supine Exercises SLR Supine Exercise Name january d/t SLR too painful Side bilateral Reps/Minutes 2x10 Comments focus on core and no back movement LTR Supine Exercise Name focus on core use to pull legs up Side bilateral Reps/Minutes 10x supine ER Supine Exercise Name core tight BKFO Side bilateral Reps/Minutes 10 Pelvic tilt Supine Exercise Name w/B hip ER Side bilateral Equipment Used L3 Reps/Minutes 15 Sidelying Exercises Hip ABD Side bilateral Reps/Minutes 10 Comments verbal cues for proper allignment for glute recruitment Sitting Exercises sit up Sitting Exercise Name lean back at EOB bed Side bilateral Reps/Minutes 10 TAbd Sitting Exercise Name w/alt march Side bilateral Reps/Minutes 2x10 Standing Exercises step up Standing Exercise Name attempted 8 in but too difficult Side bilateral Equipment Used 6 in Reps/Minutes 10 ea Comments no rail use Manual Therapy Treatment Soft Tissue Mobilization lumbar Body Location ES & QL Mobilization Type Rolling,Sustained Pressure Intensity/Depth Moderate Body Position Sidelying Comments L>R PT-OP-T Assessment and Plan Start: 03/10/21 16:52 Freq: Status: Active Protocol: Document 07/17/21 11:17 [facility] (Rec: 07/17/21 12:06 [facility] [id number]) Physical Therapy Assessment Goals activity tolerance Short Term Goal (STG) Pt will be able to walk without cane in house and for short distancesw ith good mechancis. STG Duration achieved Penitentiary Goal (LTG) Pt will be able to go for 1 mile walk without cane without more than 2 point pain inc. 05/14-able to do 1 mile w/5/10 pain LTG Duration achieved starts at 1-2/10 and inc to 3-4/10 Four Impairment RADHA 28/50 Short Term Goal (STG) Pt will imrpove score of RADHA to less than 20/50 to show improved functional ability. 04/09-improved to 23/50 05/14-50 06/12- STG Duration achieved to Penitentiary Goal (LTG) Pt will imrpove score of RADHA to less than 10/50 to show improved functional ability. LTG Duration 07/31/21 Three Impairment transitions Short Term Goal (STG) Pt will be able to roll & do log roll for in/out of bed without difficulty or inc pain . 04/09-improved ability w/less pain 05/14-difficulty w/bridging 06/12-getting into bed going well, getting out of bed still most difficult w/bridge STG Duration achieved at home [facility]iary Goal (LTG) Pt wilb e able to do 5 sit to stands with UEs w/o inc pain or difficulty to show imrpoved ability for transitions & improved LE strength 05/14-reports just discomfort 06/12-still painful 07/10-able to do fluidly and quicker 5/10 pain LTG Duration 07/31 Two Impairment strength Short Term Goal (STG) Pt will be indep w/HEP STG Duration achieved [facility]iary Goal (LTG) pt will have at least 4+/5 LE strength B in all planes and 2 /5 LPM to show improved staiblity to allow pt to do typical ADLs without inc pain. 04/09-improving 05/14-slowly improving 06/12-cont small improvements LTG Duration 07/31/21 One Short Term Goal (STG) Pt will improve flex ROM to at least 50 deg in order to allow her to reach for objects w/greater ease. 04/09-slowly improving 05/14-still very painful 06/12-can get to 50 deg but significant pain. pain starts at 30 deg STG Duration achieved but painful coming henrique up Assessment Summary Assessment Pt imprving with performance of exercises for core in supine. Still most difficulty w/neutral spine w/marching but improved with others. Physical Therapy Plan Frequency and Duration Frequency of Treatment 1-2x/Week Duration of Treatment 3 weeks Plan of Care Start Date 07/10/21 Plan of Care End Date 07/31/21 Next Visit Focus/Plan Next Note Type Treatment Note Next Visit Plan prep for DC,cont to work on ability to sqaut, work on standing posture & gait & hip stability/strength
--- NOTE | 2021-07-24 12:02 | PT.OTN ---
Current Diagnoses Spondylolisthesis, lumbar region (07/24/21) Other spondylosis with radiculopathy, lumbosacral region (07/24/21) Spinal stenosis, lumbar region without neurogenic claudication (07/24/21) Difficulty in walking, not elsewhere classified (07/24/21) Abnormal posture (07/24/21) Weakness (07/24/21) Physical Therapy Treatment Note PT-OP-A Visit Information Start: 03/10/21 16:52 Freq: Status: Active Protocol: Document 07/24/21 11:20 [facility] (Rec: 07/24/21 12:02 [facility] [id number]) Out-Patient Physical Therapy Visit Information Visit Information Visit Type Treatment Note Visit Note 02/05 Visit Start Time 11:19 Visit Stop Time 11:59 Total Visit Minutes 40 Visit Number 34 Number of GARDENING INSTRUCTOR Visits 0 PT-OP-B Current Condition Start: 03/10/21 16:52 Freq: Status: Active Protocol: Document 03/11/21 08:59 [facility] (Rec: 03/11/21 09:45 [facility] [id number]) Current Condition History of Current Condition Onset Date TLIF 10/07/20 Current Complaints back pain History of Current Condition Pt had years and years of back pain which led her to surgery . She had a surgery by Dr. Longoria several years ago and it was compressing more so had L3-L4 TLIF 10/07/20. Pt went to rehab for 6 weeks and did HH PT and OT until January and feels like she lost all her progress. Pt was not having any issue getting up out of bed or a chair and now is. She had more consistant pain then but now it changes on a daily basis. Some days the entire area of the surgery hurts but last couple days, it has just been painful on L side. Pt reports prior to surgery, she had sciatica into RLE for several years, but now just feeling tight in BLEs. She tries to do stretches before gets out of bed, but it still bothers her. Pt has been doing HH exercises consistanly. She walked 4 miles before surgery but now if she gets 1/2 mile, she feels jessica d/t pain stopping her beofre that. Pt has been getting out for little walks (to mailbox, errands, etc). pt did not use cane prior to surgery. Pt reports 2 falls d/t dizziness when she first got home. Occ lists to L when dizzy when first get up. Prior Treatments and Tests SNF rehab & HH PT, PT prior to surgery for lymphadema (L arm )-pt does think she may have lymphadema in legs too though, and PT for scaitica ( did help) Treatment Goals Patient/Caregiver Goals wants to be able to get back out of bed again, be able to go out and walk more, be able to get rid of the cane. Personal Factors Other Personal Factors That May Effect 2 c-scetions, appy, Therapy/Recovery gallbladder removals, has a diastasis, CHF, lymphedema, liver disease, DM II, dizziness occ PT-OP-C Subjective Start: 03/10/21 16:52 Freq: Status: Active Protocol: Document 07/24/21 11:20 [facility] (Rec: 07/24/21 12:02 [facility] [id number]) OP-PT Subjective Patient Comments Patient Comments Pt reports she does her 1 mile of walking. notes she tried her sister's ball that vibrates and massage gun and it did help.She is considering getting them for herself. PT-OP-F Manual Assessment Start: 03/10/21 16:52 Freq: Status: Active Protocol: Document 03/11/21 08:59 [facility] (Rec: 03/11/21 09:45 [facility] [id number]) Manual Assessments Soft Tissue Assessment Soft Tissue Mobility Assessment L>R Glutes, ES & QL PT-OP-G Mobility & Gait Start: 03/10/21 16:52 Freq: Status: Active Protocol: Document 03/11/21 08:59 [facility] (Rec: 03/11/21 09:45 [facility] [id number]) OP Mobility Evaluation Bed Mobility Rolling more difficult R, very segmental in movement Supine to and from Sit log roll in/out, slow and segmental Transfers Sit to Stand hard push from chair w/inc time OP Gait Assessment Comments Gait Comments leaning to L and lat leaning B , very stiff and slow, dec psuh off PT-OP-J Posture/Palpation/Skin Start: 03/10/21 16:52 Freq: Status: Active Protocol: Document 03/11/21 08:59 [facility] (Rec: 03/11/21 09:45 [facility] [id number]) Posture Evaluation [facility] Postural Classification System Inocencia Postural Classifications Posterior/Posterior Lumbar Protective Mechanism Left AP 0 Lumbar Protective Mechanism Right AP 0 Lumbar Protective Mechanism Left PA 0 Lumbar Protective Mechanism Right PA 0 Comments Posture Comments side bends and rotates left PT-OP-K Range of Motion Start: 03/10/21 16:52 Freq: Status: Active Protocol: Document 03/11/21 08:59 [facility] (Rec: 03/11/21 09:45 [facility] [id number]) Lumbar Spine Range of Motion Lumbar Spine Active Degrees Flexion 30 Extension 18 Rotation Left 38 Rotation Right 12 Lateral Flexion Left 25 Lateral Flexion Right 14 PT-OP-L Special Tests Start: 03/10/21 16:52 Freq: Status: Active Protocol: Document 03/11/21 08:59 [facility] (Rec: 03/11/21 09:45 [facility] [id number]) Special Tests Lumbar Spine Special Tests Straight Leg Raise Test Results L 45 deg pain in buttock w/opp knee bent Comments R 71 HS stretch Slump Test Results positive L PT-OP-M Strength Start: 03/10/21 16:52 Freq: Status: Active Protocol: Document 07/10/21 13:05 [facility] (Rec: 07/10/21 13:43 [facility] [id number]) Hip Strength Hip Manual Muscle Testing Left Flexion (L2) 3+ Fair+ Abduction 3+ Fair+ External Rotation 4 Good Internal Rotation 5 Normal Right Flexion (L2) 3+ Fair+ Abduction 4- Good- External Rotation 4 Good Internal Rotation 5 Normal Comments LPM PA 2/5 B, AP 0/5 L 2/5 R Knee Strength Knee Manual Muscle Testing Left Flexion (S2) 5 Normal Extension (L3) 5 Normal Right Flexion (S2) 4 Good Extension (L3) 5 Normal Ankle/Foot Strength Ankle and Foot Manual Muscle Testing Left Dorsiflexion (L4) 5 Normal Plantarflexion (S1) 5 Normal Comments PF tested seated B Right Dorsiflexion (L4) 5 Normal Plantarflexion (S1) 5 Normal PT-OP-Q Treatments Start: 03/10/21 16:52 Freq: Status: Active Protocol: Document 07/24/21 11:20 [facility] (Rec: 07/24/21 12:02 [facility] [id number]) Cardio Equipment Recumbent Elliptical ([id number]) Duration (Minutes) 6 Resistance 5 Seat Position 4 Gym Equipment Shuttle Recovery leg press Details w/pPT Resistance 75# Shuttle Recovery Platform Stable Reps/Time 2x15 Therapeutic Exercises Supine Exercises SLR Supine Exercise Name january d/t SLR too painful Side bilateral Reps/Minutes 2x10 Comments focus on core and no back movement LTR Supine Exercise Name focus on core use to pull legs up Side bilateral Reps/Minutes 10x supine ER Supine Exercise Name core tight BKFO Side bilateral Reps/Minutes 10 Pelvic tilt Supine Exercise Name w/B hip ER Side bilateral Equipment Used L3 Reps/Minutes 15 Sidelying Exercises Clamshells Side bilateral Reps/Minutes 15 Comments cued TA facilitation for trunk stability during ROM Sitting Exercises sit up Sitting Exercise Name lean back at EOB bed Side bilateral Reps/Minutes 10 TAbd Sitting Exercise Name w/alt january Side bilateral Reps/Minutes 2x10 hip abd Sitting Exercise Name hip ER Side bilateral Reps/Minutes 10 Comments focus on core Standing Exercises step up Side bilateral Equipment Used 6 in Reps/Minutes 12 ea Comments rail prn Manual Therapy Treatment Soft Tissue Mobilization lumbar Body Location ES & QL Mobilization Type Rolling,Sustained Pressure Intensity/Depth Moderate Body Position Sidelying Comments L>R PT-OP-T Assessment and Plan Start: 03/10/21 16:52 Freq: Status: Active Protocol: Document 07/24/21 11:20 [facility] (Rec: 07/24/21 12:02 [facility] [id number]) Physical Therapy Assessment Goals activity tolerance Short Term Goal (STG) Pt will be able to walk without cane in house and for short distancesw ith good mechancis. STG Duration achieved Shelter Goal (LTG) Pt will be able to go for 1 mile walk without cane without more than 2 point pain inc. 05/14-able to do 1 mile w/5/10 pain LTG Duration achieved starts at 1-210 and inc to 3-4/10 Four Impairment RADHA 28/50 Short Term Goal (STG) Pt will imrpove score of RADHA to less than 20/50 to show improved functional ability. 04/09-improved to 23/50 05/14- 06/12- STG Duration achieved to 19/50 Electromechanical Equipment Tester Goal (LTG) Pt will imrpove score of RADHA to less than 10/50 to show improved functional ability. LTG Duration 07/31/21 Three Impairment transitions Short Term Goal (STG) Pt will be able to roll & do log roll for in/out of bed without difficulty or inc pain . 04/09-improved ability w/less pain 05/14-difficulty w/bridging 06/12-getting into bed going well, getting out of bed still most difficult w/bridge STG Duration achieved at home Shelter Goal (LTG) Pt wilb e able to do 5 sit to stands with UEs w/o inc pain or difficulty to show imrpoved ability for transitions & improved LE strength 05/14-reports just discomfort 06/12-still painful 07/10-able to do fluidly and quicker 5/10 pain LTG Duration 07/31 Two Impairment strength Short Term Goal (STG) Pt will be indep w/HEP STG Duration achieved Shelter Goal (LTG) pt will have at least 4+/5 LE strength B in all planes and 2 /5 LPM to show improved staiblity to allow pt to do typical ADLs without inc pain. 04/09-improving 05/14-slowly improving 06/12-cont small improvements LTG Duration 07/31/21 One Short Term Goal (STG) Pt will improve flex ROM to at least 50 deg in order to allow her to reach for objects w/greater ease. 04/09-slowly improving 05/14-still very painful 06/12-can get to 50 deg but significant pain. pain starts at 30 deg STG Duration achieved but painful coming henrique up Assessment Summary Assessment Occ reminders needed for comfortable range and core activation along w/neutral spine but imprvoing overall perfomance of activities. Physical Therapy Plan Frequency and Duration Frequency of Treatment 1-2x/Week Duration of Treatment 3 weeks Plan of Care Start Date 07/10/21 Plan of Care End Date 07/31/21 Next Visit Focus/Plan Next Note Type Discharge Summary Next Visit Plan review HEP & set up for DC
--- NOTE | 2021-07-28 12:03 | PT.OTN ---
Current Diagnoses Spondylolisthesis, lumbar region (07/28/21) Other spondylosis with radiculopathy, lumbosacral region (07/28/21) Spinal stenosis, lumbar region without neurogenic claudication (07/28/21) Difficulty in walking, not elsewhere classified (07/28/21) Abnormal posture (07/28/21) Weakness (07/28/21) Physical Therapy Treatment Note PT-OP-A Visit Information Start: 03/10/21 16:52 Freq: Status: Active Protocol: Document 07/28/21 11:26 [facility] (Rec: 07/28/21 12:02 [facility] [id number]) Out-Patient Physical Therapy Visit Information Visit Information Visit Type Discharge Summary Visit Note 12/08 Visit Start Time 11:18 Visit Stop Time 11:56 Total Visit Minutes 38 Visit Number 35 Number of HVAC SERVICE TECHNICIAN Visits 0 PT-OP-B Current Condition Start: 03/10/21 16:52 Freq: Status: Active Protocol: Document 03/11/21 08:59 [facility] (Rec: 03/11/21 09:45 [facility] [id number]) Current Condition History of Current Condition Onset Date TLIF 10/07/20 Current Complaints back pain History of Current Condition Pt had years and years of back pain which led her to surgery . She had a surgery by Dr. Longoria several years ago and it was compressing more so had L3-L4 TLIF 10/07/20. Pt went to rehab for 6 weeks and did HH PT and OT until January and feels like she lost all her progress. Pt was not having any issue getting up out of bed or a chair and now is. She had more consistant pain then but now it changes on a daily basis. Some days the entire area of the surgery hurts but last couple days, it has just been painful on L side. Pt reports prior to surgery, she had sciatica into RLE for several years, but now just feeling tight in BLEs. She tries to do stretches before gets out of bed, but it still bothers her. Pt has been doing HH exercises consistanly. She walked 4 miles before surgery but now if she gets 1/2 mile, she feels jessica d/t pain stopping her beofre that. Pt has been getting out for little walks (to mailbox, errands, etc). pt did not use cane prior to surgery. Pt reports 2 falls d/t dizziness when she first got home. Occ lists to L when dizzy when first get up. Prior Treatments and Tests SNF rehab & HH PT, PT prior to surgery for lymphadema (L arm )-pt does think she may have lymphadema in legs too though, and PT for scaitica ( did help) Treatment Goals Patient/Caregiver Goals wants to be able to get back out of bed again, be able to go out and walk more, be able to get rid of the cane. Personal Factors Other Personal Factors That May Effect 2 c-scetions, appy, Therapy/Recovery gallbladder removals, has a diastasis, CHF, lymphedema, liver disease, DM II, dizziness occ PT-OP-C Subjective Start: 03/10/21 16:52 Freq: Status: Active Protocol: Document 07/28/21 11:26 [facility] (Rec: 07/28/21 12:02 [facility] [id number]) OP-PT Subjective Patient Comments Patient Comments pt reports feels like progress is very slow. she had to do a lot to help this weekend whcih made back sore, Patient Questionnaires Oswestry Low Back Index Oswestry Score 24/50 PT-OP-F Manual Assessment Start: 03/10/21 16:52 Freq: Status: Active Protocol: Document 03/11/21 08:59 [facility] (Rec: 03/11/21 09:45 [facility] [id number]) Manual Assessments Soft Tissue Assessment Soft Tissue Mobility Assessment L>R Glutes, ES & QL PT-OP-G Mobility & Gait Start: 03/10/21 16:52 Freq: Status: Active Protocol: Document 03/11/21 08:59 [facility] (Rec: 03/11/21 09:45 [facility] [id number]) OP Mobility Evaluation Bed Mobility Rolling more difficult R, very segmental in movement Supine to and from Sit log roll in/out, slow and segmental Transfers Sit to Stand hard push from chair w/inc time OP Gait Assessment Comments Gait Comments leaning to L and lat leaning B , very stiff and slow, dec psuh off PT-OP-J Posture/Palpation/Skin Start: 03/10/21 16:52 Freq: Status: Active Protocol: Document 03/11/21 08:59 [facility] (Rec: 03/11/21 09:45 [facility] [id number]) Posture Evaluation [facility] Postural Classification System [facility] Postural Classifications Posterior/Posterior Lumbar Protective Mechanism Left AP 0 Lumbar Protective Mechanism Right AP 0 Lumbar Protective Mechanism Left PA 0 Lumbar Protective Mechanism Right PA 0 Comments Posture Comments side bends and rotates left PT-OP-K Range of Motion Start: 03/10/21 16:52 Freq: Status: Active Protocol: Document 03/11/21 08:59 [facility] (Rec: 03/11/21 09:45 [facility] [id number]) Lumbar Spine Range of Motion Lumbar Spine Active Degrees Flexion 30 Extension 18 Rotation Left 38 Rotation Right 12 Lateral Flexion Left 25 Lateral Flexion Right 14 PT-OP-L Special Tests Start: 03/10/21 16:52 Freq: Status: Active Protocol: Document 03/11/21 08:59 [facility] (Rec: 03/11/21 09:45 [facility] [id number]) Special Tests Lumbar Spine Special Tests Straight Leg Raise Test Results L 45 deg pain in buttock w/opp knee bent Comments R 71 HS stretch Slump Test Results positive L PT-OP-M Strength Start: 03/10/21 16:52 Freq: Status: Active Protocol: Document 07/28/21 11:26 [facility] (Rec: 07/28/21 12:02 [facility] [id number]) Hip Strength Hip Manual Muscle Testing Left Flexion (L2) 4 Good Abduction 4 Good External Rotation 4 Good Internal Rotation 5 Normal Right Flexion (L2) 4 Good Abduction 4- Good- External Rotation 4 Good Internal Rotation 5 Normal PT-OP-Q Treatments Start: 03/10/21 16:52 Freq: Status: Active Protocol: Document 07/28/21 11:26 [facility] (Rec: 07/28/21 12:02 [facility] [id number]) Therapeutic Exercises Supine Exercises SLR Supine Exercise Name january d/t SLR too painful Side bilateral Reps/Minutes 2x10 Comments focus on core and no back movement LTR Supine Exercise Name focus on core use to pull legs up Side bilateral Reps/Minutes 10x supine ER Supine Exercise Name core tight BKFO Side bilateral Reps/Minutes 10 Pelvic tilt Supine Exercise Name w/B hip ER Side bilateral Equipment Used L3 Reps/Minutes 15 Sidelying Exercises Clamshells Side bilateral Reps/Minutes 15 Comments cued TA facilitation for trunk stability during ROM Sitting Exercises sit up Sitting Exercise Name lean back at EOB bed Side bilateral Reps/Minutes 10 TAbd Sitting Exercise Name w/alt march Side bilateral Reps/Minutes 2x10 Manual Therapy Treatment Soft Tissue Mobilization lumbar Body Location ES & QL Mobilization Type Rolling,Sustained Pressure Intensity/Depth Moderate Body Position Sidelying Comments L>R PT-OP-T Assessment and Plan Start: 03/10/21 16:52 Freq: Status: Active Protocol: Document 07/28/21 11:26 [facility] (Rec: 07/28/21 12:02 [facility] [id number]) Physical Therapy Assessment Goals activity tolerance Short Term Goal (STG) Pt will be able to walk without cane in house and for short distancesw ith good mechancis. STG Duration achieved Fpc Goal (LTG) Pt will be able to go for 1 mile walk without cane without more than 2 point pain inc. 05/14-able to do 1 mile w/5/10 pain LTG Duration achieved starts at 1-2/10 and inc to 3-4/10 Four Impairment RADHA 28/50 Short Term Goal (STG) Pt will imrpove score of RADHA to less than 20/50 to show improved functional ability. 04/09-improved to 23/50 05/14-22/50 06/12- STG Duration achieved to 19/50 Sky Cap Goal (LTG) Pt will imrpove score of RADHA to less than 10/50 to show improved functional ability. LTG Duration 24/50 on 07/28 Three Impairment transitions Short Term Goal (STG) Pt will be able to roll & do log roll for in/out of bed without difficulty or inc pain . 04/09-improved ability w/less pain 05/14-difficulty w/bridging 06/12-getting into bed going well, getting out of bed still most difficult w/bridge STG Duration achieved at home Sky Cap Goal (LTG) Pt wilb e able to do 5 sit to stands with UEs w/o inc pain or difficulty to show imrpoved ability for transitions & improved LE strength 05/14-reports just discomfort 06/12-still painful 07/10-able to do fluidly and quicker 5/10 pain LTG Duration 2-3/10 pain Two Impairment strength Short Term Goal (STG) Pt will be indep w/HEP STG Duration achieved Sky Cap Goal (LTG) pt will have at least 4+/5 LE strength B in all planes and 2 /5 LPM to show improved staiblity to allow pt to do typical ADLs without inc pain. 04/09-improving 05/14-slowly improving 06/12-cont small improvements LTG Duration slow improvement One Short Term Goal (STG) Pt will improve flex ROM to at least 50 deg in order to allow her to reach for objects w/greater ease. 04/09-slowly improving 05/14-still very painful 06/12-can get to 50 deg but significant pain. pain starts at 30 deg STG Duration achieved but painful coming henrique up Assessment Summary Assessment Pt has made some strength progress over past couple weeks w/compliance of HEP. She is indep w/HEP and required very little cues today. DC at this time to HEP d/t fransico in progress. Physical Therapy Plan Discharge Physical Therapy Discharge Reasons Plateau in Progress
== END 2021-07-30 13:25 | disposition home or self-care (01) ==
LOC: PHYS 11:15
PROVIDERS: PCP Student in an Organized Health Care Education/Training Program; Referring Provider Orthopaedic Surgery Orthopaedic Surgery of the Spine; Visit Provider Orthopaedic Surgery Orthopaedic Surgery of the Spine
DX: M43.16 Spondylolisthesis, lumbar region (principal); M48.061 Spinal stenosis, lumbar region without neurogenic claudication; M47.27 Other spondylosis with radiculopathy, lumbosacral region; R53.1 Weakness; R26.2 Difficulty in walking, not elsewhere classified; R29.3 Abnormal posture
CPT/HCPCS: 97110; 97112; 97116; 97140; 97162; 97530; 97535

== ENCOUNTER → 2021-12-31 09:19 | Outpatient (CLI) | payer MEDICARE, OTHER, SELFPAY ==
[2020-10-07 13:02] VITALS: BMI 44.7
--- NOTE | 2021-12-31 | DI.ECHO.S_ITS ---
[place] [facility]---------+ [facility] +---------+ : : [address] : : : : [id number] : : : : Phone: [phone]+ Echocardiogram Report + + :Name: ADELE MCBRIDE Study Date: 12/31/2021 Height: 62 in : :[facility] ReadingLocation: Weight: 329 lb: : Gender: Female BSA: 2.4 m2 : :: 1950 Age: 71 yrs : :Reason For Study: ATHEROSCLEROTIC HEART DISEASE : :Ordering Physician: BHARATI, : :BARBARA Performed By: Katerina Ortiz : :Referring: BARBARA POOLE : + + Interpretation Summary 1) Mildly enlarged left ventricle with moderately reduced systolic function (EF 35-40%). 2) The entire anterior wall, distal anterolateral wall, and the apex are severely hypokinetic to akinetic. 3) Normal right ventricular size and function. 4) There is mild to moderate mitral regurgitation. 5) Compared to the Echo done 05/18/2016, LVEF has decreased from normal to moderately reduced on this study. Procedure: A two-dimensional transthoracic echocardiogram with color flow and Doppler was performed. The study quality was technically adequate. Comparison is made with the echocardiogram of 05/18/2016. The patient was in sinus bradycardia with heart rates between 58-73 bpm during the exam. Left Ventricle: The left ventricle is mildly dilated. There is normal left ventricular wall thickness. The ejection fraction is estimated to be 35-40%. The entire anterior wall, distal anterolateral wall, and the apex are severely hypokinetic to akinetic. Right Ventricle: The right ventricle is normal in size and function. Atria: The left atrial size is normal. Right atrial size is normal. There is no Doppler evidence for an interatrial shunt. Mitral Valve: The mitral valve is normal in structure and function. There is mild to moderate mitral regurgitation. Aortic Valve: The aortic valve is trileaflet. The aortic valve opens well. There is no aortic valve stenosis. No aortic regurgitation is present. Tricuspid Valve: The tricuspid valve is normal in structure and function. There is a trace or physiologic amount of tricuspid regurgitation. Pulmonic Valve: The pulmonic valve leaflets are thin and pliable; valve motion is normal. There is mild pulmonic regurgitation. Great Vessels: The aortic root is normal size. The ascending aorta is mildly enlarged. The IVC is of normal diameter and collapses greater than 50% with a sniff. This suggests a low right atrial pressure of 3 mm Hg. Pericardium/ Pleura There is no pericardial effusion. There is no pleural effusion. MMode/2D Measurements & Calculations LVIDd: 6.0 cm LVOT diam: 2.0 cm LVIDs: 4.6 cm Ao root diam: 3.1 cm FS: 23.6 % asc Aorta Diam: 3.5 cm EPSS: 1.6 cm IVSd: 0.92 cm LVPWd: 0.90 cm LV summers. diameter/BSA (cm/m^2): 2.6 LV sys. diameter/BSA (cm/m^2): 2.0 LA A2 area: 21.0 cm2 RA long axis: 5.4 cm LA A4 area: 22.1 cm2 RA area: 16.8 cm2 LA length (vol): 5.8 cm RA vol: 44.1 ml LA vol: 67.8 ml RA : 18.7 ml/m2 LA vol index: 28.7 ml/m2 IVC diam: 1.2 cm RVD1 (basal): 3.2 cm TAPSE: 1.8 cm Doppler Measurements & Calculations Ao V2 max: 159.4 cm/sec LVOT Max Aamir: 75.7 cm/sec Ao V2 mean: 107.7 cm/sec LV V1 max P.3 mmHg Ao max P.2 mmHg LV V1 VTI: 17.4 cm Ao mean P.3 mmHg SHELLEY(I,D): 1.6 cm2 Ao V2 VTI: 32.4 cm SHELLEY(V,D): 1.4 cm2 sev ratio: 0.54 SHELLEY indexed to BSA (cm^2/m^2): 0.69 MV E max aamir: 99.2 cm/sec PA V2 max: 94.6 cm/sec MV A max aamir: 103.7 cm/sec PA V2 mean: 61.2 cm/sec MV E/A: 0.96 PA mean P.7 mmHg Med Peak E' Aamir: 5.9 cm/sec PA pr(Accel): 39.6 mmHg E/E' med: 16.9 Lat Peak E' Aamir: 5.2 cm/sec E/E' lat: 19.2 E/e' average: 18.0 MV dec time: 0.21 sec MR ERO: 0.18 cm2 MR PISA: 2.1 cm2 SV(LVOT): 52.7 ml MR flow rate: 92.1 cm3/sec MR PISA radius: 0.58 cm Reading Physician:11:43 AM
== END ==
PROVIDERS: PCP Student in an Organized Health Care Education/Training Program; Referring Provider Internal Medicine Cardiovascular Disease; Visit Provider Internal Medicine Cardiovascular Disease
DX: I34.0 Nonrheumatic mitral (valve) insufficiency (principal); I37.1 Nonrheumatic pulmonary valve insufficiency; I77.89 Other specified disorders of arteries and arterioles; I25.10 Atherosclerotic heart disease of native coronary artery without angina pectoris
CPT/HCPCS: 93306

== ENCOUNTER → 2022-03-26 12:04 | Outpatient (CLI) | payer MEDICARE, OTHER, SELFPAY ==
[2020-10-07 13:02] VITALS: BMI 44.7
--- NOTE | 2022-03-26 | DI.US.S_ITS ---
PROCEDURE: US ABDOMEN COMPLETE INDICATIONS: RIGHT UPPER QUADRANT PAIN TECHNIQUE: Real-time scanning was performed of the abdominal and retroperitoneal organs, with image documentation. COMPARISON: [facility], , US ABDOMEN COMPLETE, 08/09/2020, 11:16. FINDINGS: Liver: Liver is normal in size and slight increased in echotexture. Gallbladder: Absent. Biliary ducts: Intrahepatic bile ducts are non-dilated. Extrahepatic bile duct caliber measures 7.1 mm. Normal is 6-7 mm or less in diameter, or 10 mm or less post-cholecystectomy. Pancreas: Visualized portions of the pancreas are sonographically normal. Spleen: Spleen is normal in size and homogeneous in echotexture. Kidneys: Kidneys are normal in size and echotexture. Right kidney measures 10.5 cm long; left kidney measures 11.1 cm long. No hydronephrosis or nephrolithiasis. No solid masses. Aorta: Visualized aorta is normal in caliber at less than 3 cm. Iliacs: Proximal common iliac arteries are not visualized. IVC: Intrahepatic inferior vena cava is patent. Miscellaneous: No free abdominal fluid. IMPRESSION: Minimal appearance of hepatic steatosis. Cholecystectomy. Biliary system is unremarkable. Dictated by: Laurie Haywood M.D. on 03/26/2022 at 16:00 Approved by: Laurie Haywood M.D. on 03/26/2022 at 16:01
== END ==
PROVIDERS: PCP Student in an Organized Health Care Education/Training Program; Referring Provider Student in an Organized Health Care Education/Training Program; Visit Provider Student in an Organized Health Care Education/Training Program
DX: R10.11 Right upper quadrant pain (principal); Z90.49 Acquired absence of other specified parts of digestive tract
CPT/HCPCS: 76700

== ENCOUNTER → 2022-04-13 09:41 | Outpatient (CLI) | payer MEDICARE, OTHER, SELFPAY ==
[2020-10-07 13:02] VITALS: BMI 44.7
[2022-04-13 13:02] LABS: Add Manual Diff / Slide Review NO; Basophils Absolute Auto 0 /uL (0-100); Basophils Percent Auto 0.5 % (0-2); Eosinophils Absolute Auto 200 /uL (0-450); Eosinophils Percent Auto 3.6 % (2-4); Hematocrit 42.6 % (36-46); Hemoglobin 14.3 g/dL (12.0-16.0); Lymphocytes Absolute Auto 1100 /uL (1100-4500); Lymphocytes Percent Auto 26.2 % (25-40); Mean Corpuscular HGB Conc 33.6 % (30-36); Mean Corpuscular Hemoglobin 29.2 PG (26-34); Mean Corpuscular Volume 87.1 fL (80-100); Monocytes Absolute Auto 400 /uL (0-900); Monocytes Percent Auto 8.2 % (3-14); Neutrophils Absolute Auto 2600 /uL (1500-7000); Neutrophils Percent Auto 61.5 % (50-75); Platelet Count 175 X10^3/uL (150-400); Red Blood Cell Count 4.89 X10^6/uL (4.0-5.2); Red Cell Distribution Width 15.6 % (11.6-14.8); White Blood Cell Count 4.3 X10^3/uL (4.5-11.0)
[2022-04-13 13:19] LABS: BUN Creatinine Ratio 22.1 (6-22); Blood Urea Nitrogen 21 mg/dL (7-17); Calcium 9.8 mg/dL (8.4-10.2); Carbon Dioxide 25 mmol/L (22-32); Chloride 106 mmol/L (98-107); Cholesterol 108 mg/dL (140-199); Estimated Glomerular Filt Rate > 60 mL/min (>60); Glucose 116 mg/dL (80-110); HDL Cholesterol 48 mg/dL (40-60); HEMOLYSIS 21 (0-50); LDL Cholesterol Calculated 29 mg/dL (<100); Potassium 3.9 mmol/L (3.4-5.1); Sodium 139 mmol/L (137-145); Triglycerides 153 mg/dL (35-150)
[2022-04-13 18:25] LABS: Creatinine Urine Random 22.8 mg/dL
[2022-04-13 18:29] LABS: Microalbumi Creatinin Ratio Ur 30.7 ug/mg CR (<30); Microalbumin Urine Random 0.7 mg/dL (0-1.6)
== END ==
PROVIDERS: PCP Student in an Organized Health Care Education/Training Program; Referring Provider Internal Medicine Cardiovascular Disease; Visit Provider Student in an Organized Health Care Education/Training Program
DX: I10 Essential (primary) hypertension (principal); E78.5 Hyperlipidemia, unspecified; E11.65 Type 2 diabetes mellitus with hyperglycemia
CPT/HCPCS: 36415; 80048; 80061; 82043; 82570; 85025

== ENCOUNTER → 2022-06-18 09:10 | Outpatient (CLI) | payer MEDICARE, OTHER, SELFPAY ==
[2020-10-07 13:02] VITALS: BMI 44.7
--- NOTE | 2022-06-18 | DI.ECHO.S_ITS ---
[facility] +---------+ : : [address] : : : : [id number] : : : : Phone: [phone]+ Echocardiogram Report + + :Name: ADELE MCBRIDE Study Date: 06/18/2022 Height: 62 in : :[facility] ReadingLocation: Weight: 231 lb : : Gender: Female BSA: 2.0 m2 : :: 1950 Age: 71 yrs BP: 183/97 mmHg: :Reason For Study: Dyspnea : :Ordering Physician: BHARATI, : :BARBARA Performed By: Mik Christian : :Referring: BARBARA POOLE : + + Interpretation Summary 1) Mildly enlarged left ventricle with mildly reduced systolic function (EF 45-50%). 2) The distal anterolateral wall and the apex are severely hypokinetic to akinetic. The entire anterior wall is hypokinetic. 3) Normal right ventricular size and function. 4) There is mild mitral regurgitation. 5) Compared to the Echo done 12/31/2021, LVEF has improved from 35-40% to 45-50% on this study. Procedure: A two-dimensional transthoracic echocardiogram with color flow and Doppler was performed. The study quality was technically difficult. Comparison is made with the echocardiogram of 12/31/2021. A contrast injection of Definity was performed to improve assessment of LV function. Left Ventricle: The left ventricle is normal in size. There is moderate concentric left ventricular hypertrophy. The ejection fraction is estimated to be 45-50%. Left ventricular systolic function is mildly reduced. The distal anterolateral wall and the apex are severely hypokinetic to akinetic. The entire anterior wall is hypokinetic. Diastolic function could not be accurately assessed due to unobtainable data. Right Ventricle: The right ventricle is normal in size and function. Atria: Both atria are normal in size. The interatrial septum grossly appears intact with no obvious evidence for an atrial septal defect. Mitral Valve: The mitral valve is normal in structure and function. There is mild mitral regurgitation. Aortic Valve: The aortic valve is normal in structure and function. There is no aortic valve stenosis. No aortic regurgitation is present. Tricuspid Valve: The tricuspid valve is normal in structure and function. There is trace tricuspid regurgitation. Pulmonary artery pressures cannot be estimated because of the lack of a measurable TR jet velocity. Pulmonic Valve: The pulmonic valve is normal in structure and function. There is no pulmonic valvular regurgitation. Great Vessels: The aortic root is normal size. The dimensions of the ascending aorta are normal. The IVC is of normal diameter and collapses greater than 50% with a sniff. This suggests a low right atrial pressure of 3 mm Hg. Pericardium/ Pleura There is no pericardial effusion. There is no pleural effusion. MMode/2D Measurements & Calculations LVIDd: 5.5 cm LVOT diam: 2.0 cm LVIDs: 4.0 cm Ao root diam: 3.1 cm FS: 27.2 % asc Aorta Diam: 3.4 cm IVSd: 1.4 cm LVPWd: 1.3 cm LV summers. diameter/BSA (cm/m^2): 2.7 LV sys. diameter/BSA (cm/m^2): 2.0 LA dimension: 3.6 cm RA long axis: 5.7 cm LA A2 area: 17.4 cm2 LA A4 area: 19.8 cm2 LA length (vol): 5.5 cm LA vol: 52.8 ml LA vol index: 26.0 ml/m2 LVLs ap4: 6.8 cm LVLd ap2: 7.3 cm LVLs ap2: 6.6 cm TAPSE_phl: 1.9 cm Doppler Measurements & Calculations Ao V2 max: 162.0 cm/sec LVOT Max Aamir: 84.2 cm/sec Ao V2 mean: 116.0 cm/sec LV V1 max P.8 mmHg Ao max P.0 mmHg LV V1 VTI: 20.5 cm Ao mean P.0 mmHg SHELLEY(I,D): 1.7 cm2 Ao V2 VTI: 37.0 cm SHELLEY(V,D): 1.6 cm2 sev ratio: 0.55 SHELLEY indexed to BSA (cm^2/m^2): 0.86 MV E max aamir: 87.8 cm/sec SV(LVOT): 64.4 ml MV A max aamir: 115.0 cm/sec MV E/A: 0.76 Med Peak E' Aamir: 5.4 cm/sec E/E' med: 16.2 Lat Peak E' Aamir: 7.4 cm/sec E/E' lat: 11.9 E/e' average: 14.1 MV dec time: 0.30 sec AV VR_phl: 0.52 MV P1/2t-pr_phl: 89.0 msec SHELLEY(VTI)/BSA_phl: 0.86 Reading Physician:12:46 PM
== END ==
PROVIDERS: PCP Student in an Organized Health Care Education/Training Program; Referring Provider Internal Medicine Cardiovascular Disease; Visit Provider Internal Medicine Cardiovascular Disease
DX: I34.0 Nonrheumatic mitral (valve) insufficiency (principal); I25.5 Ischemic cardiomyopathy; R06.00 Dyspnea, unspecified
CPT/HCPCS: C8929; Q9957

== ENCOUNTER 2022-07-02 08:30 | Outpatient (RCR) | payer MEDICARE, OTHER, SELFPAY ==
[2020-10-07 13:02] VITALS: BMI 44.7
== END 2022-07-02 10:30 ==
LOC: CAR 08:30
PROVIDERS: PCP Student in an Organized Health Care Education/Training Program; Referring Provider Internal Medicine Cardiovascular Disease; Visit Provider Internal Medicine Cardiovascular Disease
DX: Z95.5 Presence of coronary angioplasty implant and graft (principal)
CPT/HCPCS: 93798

== ENCOUNTER → 2023-01-26 11:11 | Outpatient (CLI) | payer MEDICARE, OTHER, SELFPAY ==
[2020-10-07 13:02] VITALS: BMI 44.7
[2023-01-26 11:48] LABS: Add Manual Diff / Slide Review NO; Basophils Absolute Auto 0 /uL (0-100); Basophils Percent Auto 0.6 % (0-2); Eosinophils Absolute Auto 100 /uL (0-450); Eosinophils Percent Auto 3.3 % (2-4); Hematocrit 43.2 % (36-46); Hemoglobin 14.2 g/dL (12.0-16.0); Lymphocytes Absolute Auto 800 /uL (1100-4500); Lymphocytes Percent Auto 19.9 % (25-40); Mean Corpuscular HGB Conc 32.9 % (30-36); Mean Corpuscular Hemoglobin 28.9 PG (26-34); Mean Corpuscular Volume 87.9 fL (80-100); Monocytes Absolute Auto 400 /uL (0-900); Monocytes Percent Auto 9.7 % (3-14); Neutrophils Absolute Auto 2800 /uL (1500-7000); Neutrophils Percent Auto 66.5 % (50-75); Platelet Count 152 X10^3/uL (150-400); Red Blood Cell Count 4.92 X10^6/uL (4.0-5.2); Red Cell Distribution Width 15.6 % (11.6-14.8); White Blood Cell Count 4.2 X10^3/uL (4.5-11.0)
[2023-01-26 12:04] LABS: Erythrocyte Sedimentation Rate 3 MM/HR (0-20)
[2023-01-26 13:13] LABS: Alanine Aminotransferase 24 IU/L (<35); Albumin 4.1 g/dL (3.5-5.0); Albumin Globulin Ratio 1.4 (1.0-2.8); Alkaline Phosphatase 89 U/L (38-126); Aspartate Aminotransferase 26 IU/L (14-36); Bilirubin Total 0.4 mg/dL (0.2-1.3); Blood Urea Nitrogen 22 mg/dL (7-17); Calcium 9.5 mg/dL (8.4-10.2); Carbon Dioxide 25 mmol/L (22-32); Chloride 105 mmol/L (98-107); Estimated Glomerular Filt Rate > 60 mL/min (>60); Globulin 2.9 g/dL (1.7-4.1); Glucose 108 mg/dL (80-110); HEMOLYSIS < 15 (0-50); Potassium 3.9 mmol/L (3.4-5.1); Sodium 141 mmol/L (137-145); Uric Acid 3.5 mg/dL (2.5-6.2)
[2023-01-26 13:19] LABS: High Sensitivity CRP - Cardiac 1.5 mg/L (1.0-3.0)
[2023-01-26 13:20] LABS: Rheumatoid Factor < 8.6 IU/mL (<12.0)
[2023-01-26 13:41] LABS: Thyroid Stimulating Hormone 1.35 uIU/mL (0.47-4.68)
[2023-01-28 18:00] LABS: SS A Ro Sjogrens Antibody < 0.2 AI (0.0-0.9); SS B La Sjogrens Antibody < 0.2 AI (0.0-0.9)
[2023-01-30 05:12] LABS: Angiotensin Converting Enzyme 45 U/L (14-82)
[2023-01-30 20:08] LABS: ANA Screen, IFA Positive (.)
== END ==
PROVIDERS: PCP Family Medicine; Referring Provider Ophthalmology; Visit Provider Ophthalmology
DX: M35.00 Sjogren syndrome, unspecified (principal)
CPT/HCPCS: 36415; 80053; 82164; 84443; 84550; 85025; 85651; 86038; 86140; 86235; 86430

== ENCOUNTER → 2023-02-01 14:20 | Outpatient (CLI) | payer MEDICARE, OTHER, SELFPAY ==
[2020-10-07 13:02] VITALS: BMI 44.7
--- NOTE | 2023-02-01 | DI.US.S_ITS ---
PROCEDURE: US EXTREMITY NONVASC LOWER RT INDICATIONS: soft tissue disorder TECHNIQUE: Real-time scanning was performed of the right lower extremity, with image documentation. COMPARISON: [facility], , US EXTREMITY NONVASC UPPER LT, 02/01/2023, 15:08. FINDINGS: No significant abnormality is seen at the patient indicated palpable area of concern in the region of the anterior right lower leg. IMPRESSION: No significant sonographic abnormality. Approved by: Navin Newman M.D. on 02/01/2023 at 20:31
--- NOTE | 2023-02-01 | DI.US.S_ITS ---
PROCEDURE: US EXTREMITY NONVASC UPPER LT INDICATIONS: soft tissue disorder TECHNIQUE: Real-time scanning was performed of the right forearm , with image documentation. COMPARISON: [facility], [place], US EXTREMELY NONVASC UPPER RT, 02/01/2023, 14:54. FINDINGS: No sonographic abnormality in the right forearm. IMPRESSION: No sonographic abnormality. An isoechoic lipoma is a consideration. Dictated by: Dakota Mosher M.D. on 02/01/2023 at 16:06 Approved by: Dakota Mosher M.D. on 02/01/2023 at 16:07
--- NOTE | 2023-02-01 | DI.MG.S_ITS ---
BILATERAL DIGITAL SCREENING MAMMOGRAM 3D/2D WITH CAD: 02/01/2023 CLINICAL: Routine screening. Family history of breast cancer. Comparison is made to exams dated: 11/21/2020 mammogram, 09/29/2019 mammogram, and 05/18/2017 mammogram - [facility]. Both breasts are heterogeneously dense, which may obscure small masses (category c / 51-75% glandular tissue). Current study was also evaluated with a Computer Aided Detection (CAD) system. There are benign calcifications in both breasts. No significant masses, calcifications, or other findings are seen in either breast. There has been no significant interval change. IMPRESSION: BENIGN There is no mammographic evidence of malignancy. A 1 year screening mammogram is recommended. Based on the Tyrer Cuzick model (a risk assessment model) the patient's lifetime risk is 10.0% and her 10 year risk is 6.9%. According to the ACR, ACS, and NCCN guidelines, an annual breast MRI exam along with mammogram is recommended if the patient's lifetime risk is 20% or greater. This exam was interpreted at Station ID: [id number]. NOTE: For mammograms, a report in lay terms will be sent to the patient. Approximately 15% of breast malignancies will not be visualized mammographically. In the management of a palpable breast mass, a negative mammogram must not discourage biopsy of a clinically suspicious lesion. Electronically Signed By: Bernardino bernardo/acosta:02/01/2023 16:18:21 letter sent: Normal Exam ACR BI-RADS Category 2: Benign Finding(s) [id number]
--- NOTE | 2023-02-01 | DI.US.S_ITS ---
PROCEDURE: US EXTREMELY NONVASC UPPER RT INDICATIONS: soft tissue disorder TECHNIQUE: Real-time scanning was performed of the bilateral upper extremities and right lower extremity , with image documentation. COMPARISON: None. FINDINGS: Targeted ultrasound of the region of concern demonstrates no sonographic abnormality. IMPRESSION: No sonographic abnormality. Isoechoic lipomas are considerations in the setting. Dictated by: Dakota Mosher M.D. on 02/01/2023 at 16:05 Approved by: Dakota Mosher M.D. on 02/01/2023 at 16:06
== END ==
PROVIDERS: PCP Family Medicine; Referring Provider Family Medicine; Visit Provider Family Medicine
DX: Z12.31 Encounter for screening mammogram for malignant neoplasm of breast (principal); M79.9 Soft tissue disorder, unspecified; Z80.3 Family history of malignant neoplasm of breast
CPT/HCPCS: 76882; 77063; 77067

== ENCOUNTER → 2023-02-12 09:28 | Outpatient (CLI) | payer MEDICARE, OTHER, SELFPAY ==
[2020-10-07 13:02] VITALS: BMI 44.7
[2023-02-12 12:12] LABS: Glucose 144 mg/dL (80-110)
[2023-02-13 07:30] LABS: C Peptide 1.7 ng/mL (1.1-4.4)
== END ==
PROVIDERS: PCP Family Medicine; Referring Provider Student in an Organized Health Care Education/Training Program; Visit Provider Student in an Organized Health Care Education/Training Program
DX: E11.69 Type 2 diabetes mellitus with other specified complication (principal)
CPT/HCPCS: 36415; 82947; 84681

== ENCOUNTER → 2023-06-29 08:04 | Outpatient (CLI) | payer MEDICARE, OTHER, SELFPAY ==
[2020-10-07 13:02] VITALS: BMI 44.7
--- NOTE | 2023-06-29 08:05 | DI.RAD.S_ITS ---
PROCEDURE: XR LUMBAR SPINE MIN 4V INDICATIONS: status post lumbar laminectomy, pain TECHNIQUE: 5 views of the lumbar spine were acquired, including bilateral oblique views. COMPARISON: [facility] [place], [place], XR LUMBAR SPINE 2 OR 3 VIEWS, 05/20/2021, 14:13. [facility] [place], CR, XR LUMBAR SPINE 2 OR 3 VIEWS, 10/14/2021, 13:05. [facility], CR, XR LUMBAR SPINE 2-3V, 10/07/2020, 8:41. [facility], CR, L-SPINE 2-3 VIEWS, 11/23/2016, 15:27. FINDINGS: Bones: Left convexity curvature of the lumbar spine redemonstrated. Lower lumbar fusion changes present as before, hardware appears intact. No lumbar vertebral body compression fracture identified. Multilevel degenerative changes of the lumbar spine are present. Suspect at least mild multi level bony foraminal narrowing on oblique views. Soft tissues: Overlying bowel gas pattern is normal. No suspicious soft tissue calcifications. IMPRESSION: No lumbar vertebral body compression fracture identified. Multilevel degenerative changes of the lumbar spine are present. If symptoms persist, follow-up radiographs and/or CT may be helpful for further evaluation. Dictated by: Navin Guido M.D. on 06/29/2023 at 12:27 Approved by: Navin Guido M.D. on 06/29/2023 at 12:33
== END ==
PROVIDERS: PCP Family Medicine; Referring Provider Anesthesiology; Visit Provider Anesthesiology
DX: M54.9 Dorsalgia, unspecified (principal); M47.26 Other spondylosis with radiculopathy, lumbar region; Z98.890 Other specified postprocedural states; Z98.1 Arthrodesis status
CPT/HCPCS: 72110; 99214

== ENCOUNTER 2023-08-26 10:30 | Outpatient (RCR) | payer MEDICARE, OTHER, SELFPAY ==
[2020-10-07 13:02] VITALS: BMI 44.7
--- NOTE | 2022-10-29 17:26 | PT.OIE ---
Current Diagnoses Pain in right shoulder (10/29/22) Incomplete rotator cuff tear or rupture of right shoulder, not specified as traumatic (10/29/22) Superior glenoid labrum lesion of right shoulder, initial encounter (10/29/22) Past Medical History (Last Reviewed 06/29/22 @ 15:55 by Avelino Del Real MD) Anasarca Arthritis Asthma Chest pain Chronic back pain Chronic renal insufficiency Corneal abrasion of both eyes Coronary artery disease Depression Diabetes Dry eye syndrome Hyperlipidemia Hypertension Hypokalemia Migraine GARCIA (nonalcoholic steatohepatitis) Osteoarthritis Reactive airway disease Sarcoidosis (~1996) Sciatica of right side Seasonal allergies Sleep apnea Spinal stenosis of lumbar region with radiculopathy Spondylolisthesis Vitamin B12 deficiency Past Surgical History (Last Reviewed 06/29/22 @ 15:55 by Avelino Del Real MD) History of 2 sections History of bilateral cataract extraction (2015) History of colonoscopy (08/16/17) Hx of appendectomy Hx of cholecystectomy Hx of heart artery stent (02/24/19) Hx of laminectomy (11/23/16) Visit Care Team Role Provider Type Slade Mccann MD Primary Care Provider Physician Specialty: Family Practice Address: [facility] [place], [address] Email: [email or web address] Provider Referring Provider Specialty: Address: Phone: Fax: Email: Physical Therapy Initial Evaluation PT-OP-A Visit Information Start: 10/28/22 09:19 Freq: Status: Active Protocol: Document 10/29/22 09:50 SAK (Rec: 10/29/22 10:33 SAK [id number]) Out-Patient Physical Therapy Visit Information Visit Information Visit Type Initial Evaluation Visit Start Time 09:50 Visit Stop Time 10:40 Total Visit Minutes 50 Visit Number 1 Evaluation Information Evaluation Date 10/29/22 Precautions Precautions cardiac: ID, has done cardiac rehab lymphedema PT-OP-B Current Condition Start: 10/28/22 09:19 Freq: Status: Active Protocol: Document 10/29/22 09:50 SAK (Rec: 10/29/22 10:33 SAK [id number]) Current Condition History of Current Condition Onset Date 1 1/2 years Current Complaints right History of Current Condition gradual onset right shoulder pain unknown reason. Increases with trying to reach overhead, out to side, or behind her back; pain and tingling. If tries to sleep on back both arms go numb. Unable to wear compression sleeve left due to pain right shoulder; patient previously seen by this PT for right shoulder pain and felt at that time pain at least some due to overuse right UE. Goes back to the doctor after PT ( Clifford Diggs). 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 Saw oncology specialist. MRI right shoulder: incomplete RC tear, superior labral tear Prior Treatments and Tests Tylenol, ice, heat. Can't do UE ex at cardiac rehab, low tolerance for HEP previously instructed. Has TENS, but doesn't know how to use Treatment Goals Patient/Caregiver Goals Decrease pain, improve use of right UE. Patient is right handed. Prior Functional Status Baseline Function- ADL's Independent Baseline Function- Mobility Independent Current Functional Impairments (Reported) Functional Limitations- ADL's painful, can't reach overhead, behind her back or out to side Functional Limitations- Work/School unable Functional Limitations- Recreation/ unable Hobbies Functional Limitations- Other increased pain with any lifting or use of her right UE . Personal Factors Other Personal Factors That May Effect DM, obesity, lymphedema left Therapy/Recovery UE, cardiac history PT-OP-C Subjective Start: 10/28/22 09:19 Freq: Status: Active Protocol: Document 10/29/22 09:50 [facility] (Rec: 10/29/22 17:12 [facility] [id number]) Patient Questionnaires Quick Dash- Upper Extremity Quick Dash UE Score 48 OP-PT Pain Assessment Pain Assessment Grid Paper Pain Assessment Grid Completed Yes Location Lower Back Intensity 8 Pain Aggravating Factors ADL's,Activity,Exercise, Lifting Pain Alleviating Factors Inactivity Pain Behaviors Pain Behaviors Facial Grimacing,Guarding, Wincing PT-OP-E Functional Tests Start: 10/28/22 09:19 Freq: Status: Active Protocol: Document 10/29/22 09:50 [facility] (Rec: 10/29/22 17:12 [facility] [id number]) Functional Tests Marcey's Scratch Test Action 1- Left anterior shoulder Action 1- Right posterior shoulder Action 2- Left T2 Action 2- Right lateral neck Action 3- Left lateral hip Action 3- Right T7 PT-OP-H Neuro Start: 10/28/22 09:19 Freq: Status: Active Protocol: Document 10/29/22 09:50 [facility] (Rec: 10/29/22 17:12 [facility] [id number]) Sensation Evaluation Gross Sensation Gross Sensation Left UE Impaired,Right UE Impaired Sensation Description Paresthesia Location Details Left Arm Light Touch Intact/Normal PT-OP-J Posture/Palpation/Skin Start: 10/28/22 09:19 Freq: Status: Active Protocol: Document 10/29/22 09:50 [facility] (Rec: 10/29/22 17:12 [facility] [id number]) Posture Evaluation Position Sitting Head/C-Spine Posture Forward Head T-Spine Posture Increased Kyphosis L-Spine Posture Increased Lordosis Shoulder Posture (L) Rounded,(R) Rounded Scapula Posture (L) Protracted,(R) Protracted Arm Posture (L) Internally Rotated,(R) Internally Rotated Pelvis Posture Anteriorly Tilted Palpation Assessment Location RC insertion Palpation Findings Tenderness Palpation Details entire joint line painful to palpation PT-OP-K Range of Motion Start: 10/28/22 09:19 Freq: Status: Active Protocol: Document 10/29/22 09:50 [facility] (Rec: 10/29/22 17:12 [facility] [id number]) Cervical Spine Range of Motion Cervical Spine Active Testing Position Sitting Flexion 50 Extension 10 Rotation Left 55 Rotation Right 55 Lateral Flexion Left 30 Lateral Flexion Right 30 Shoulder Goniometric Range of Motion Shoulder Left Shoulder ROM WFL No Testing Position Sitting Flexion 85 Extension 10 Abduction 75 External Rotation at 0 degrees Abduction 45 Right Shoulder ROM WFL Yes Comments mild limitations due to lymphedema PT-OP-L Special Tests Start: 10/28/22 09:19 Freq: Status: Active Protocol: Document 10/29/22 09:50 [facility] (Rec: 10/29/22 17:12 [facility] [id number]) Special Tests Shoulder Special Tests Lift-Off Rotator Cuff Test Results positive Elevation Impingement Test Results positive Drop Arm Rotator Cuff Test Results positve PT-OP-M Strength Start: 10/28/22 09:19 Freq: Status: Active Protocol: Document 10/29/22 09:50 [facility] (Rec: 10/29/22 17:12 [facility] [id number]) Shoulder Strength Shoulder Manual Muscle Testing Left Flexion 4- Good- Extension 4- Good- Adduction 4 Good External Rotation 4- Good- Internal Rotation 4 Good PT-OP-Q Treatments Start: 10/28/22 09:19 Freq: Status: Active Protocol: Document 10/29/22 09:50 [facility] (Rec: 10/29/22 17:12 [facility] [id number]) Self-Care/Home Management Treatment Education Patient Education Posture Other Education recommendation for aquatic PT PT-OP-R Modalities Start: 10/28/22 09:19 Freq: Status: Active Protocol: Document 10/29/22 09:50 [facility] (Rec: 10/29/22 17:12 [facility] [id number]) Electric Stimulation Electric Stimulation Interferential Current (IFC) Body Location left shoulder Duration (Minutes) 10 Intensity 6 Target/Sweep Sweep Patient Position Sitting Combined With Heat/Cold Cold Pack Ultrasound Therapy Treatment left heel Treatment Duration (minutes) 8 Patient Position Sitting Coupling Medium Ultrasound Gel Mode Setting Continuous Duty Cycle 100% Intensity Setting (w/cm2) 1.4 Comments reported sharp discomfort last minute so discontinued PT-OP-T Assessment and Plan Start: 10/28/22 09:19 Freq: Status: Active Protocol: Document 10/29/22 09:50 [facility] (Rec: 10/29/22 17:26 [facility] [id number]) Physical Therapy Assessment Rehab Potential Rehabilitation Potential Fair Evaluation Complexity Number of Personal Factors/Comorbidities 1-2 Number of Body Systems Impaired 3 Clinical Presentation at Evaluation Evolving Impairments Impairments Functional Activities,Pain, Posture,ROM,Strength Goals One Impairment pain left shoulder as high as 8/10 Short Term Goal (STG) decrease pain to no greater than 6/10 with usual activities Assessment Summary Assessment Patient presents to PT with function-limiting right shoulder pain with signs and symptoms consistent with MRI findings of rotator cuff tear, and labral tear. Feel contributing factors are postural dysfunction, overuse of right UE due to left UE lymphedema. Feel patient would benefit from physical therapy to decrease pain, improve ROM, strength, and functional use. Feel patient would benefit most from aquatic therapy; no appointments available this month but patient will be on waiting list. Patient symptoms very irritable, will need to be progressed slowly. Discussed POC and patient is in agreement. Physical Therapy Plan Frequency and Duration Frequency of Treatment 2x/Week Duration of treatment (weeks) 12 Plan of Care Start Date 10/29/22 Plan of Care End Date 01/27/23 Therapeutic Interventions Therapeutic Interventions Aquatic Therapy,Home Exercise Program,Manual Therapy,Patient /Caregiver Education,Self-Care /Home Management,Soft Tissue Mobilization,Taping, Therapeutic Activities, Therapeutic Exercises Modalities Cold Pack/Ice Massage,Electric Stimulation,Hot Packs, Infrared Therapy,Iontophoresis ,Ultrasound Next Visit Focus/Plan Next Note Type Treatment Note Next Visit Plan Assess response to ultrasound and IFES with ice. Continue postural re-education, gentle shoulder ROM and strengthening . Trial iontophoresis.
--- NOTE | 2022-10-29 17:27 | PT.OPPOC ---
Physical, Occupational & Speech Therapy At [facility] Current Diagnoses Pain in right shoulder (10/29/22) Incomplete rotator cuff tear or rupture of right shoulder, not specified as traumatic (10/29/22) Superior glenoid labrum lesion of right shoulder, initial encounter (10/29/22) Visit Care Team Role Provider Type Slade Mccann MD Primary Care Provider Physician Specialty: Family Practice Address: [facility] [place], [address] Email: [email or web address] Attending Provider Referring Provider Specialty: Address: Phone: Fax: Email: Plan Of Care PT-OP-T Assessment and Plan Start: 10/28/22 09:19 Freq: Status: Active Protocol: Document 10/29/22 09:50 [facility]AK (Rec: 10/29/22 17:26 SAK [id number]) Physical Therapy Assessment Rehab Potential Rehabilitation Potential Fair Evaluation Complexity Number of Personal Factors/Comorbidities 1-2 Number of Body Systems Impaired 3 Clinical Presentation at Evaluation Evolving Impairments Impairments Functional Activities,Pain, Posture,ROM,Strength Goals One Impairment pain left shoulder as high as 8/10 Short Term Goal (STG) decrease pain to no greater than 6/10 with usual activities Assessment Summary Assessment Patient presents to PT with function-limiting right shoulder pain with signs and symptoms consistent with MRI findings of rotator cuff tear, and labral tear. Feel contributing factors are postural dysfunction, overuse of right UE due to left UE lymphedema. Feel patient would benefit from physical therapy to decrease pain, improve ROM, strength, and functional use. Feel patient would benefit most from aquatic therapy; no appointments available this month but patient will be on waiting list. Patient symptoms very irritable, will need to be progressed slowly. Discussed POC and patient is in agreement. Physical Therapy Plan Frequency and Duration Frequency of Treatment 2x/Week Duration of treatment (weeks) 12 Plan of Care Start Date 10/29/22 Plan of Care End Date 01/27/23 Therapeutic Interventions Therapeutic Interventions Aquatic Therapy,Home Exercise Program,Manual Therapy,Patient /Caregiver Education,Self-Care /Home Management,Soft Tissue Mobilization,Taping, Therapeutic Activities, Therapeutic Exercises Modalities Cold Pack/Ice Massage,Electric Stimulation,Hot Packs, Infrared Therapy,Iontophoresis ,Ultrasound Next Visit Focus/Plan Next Note Type Treatment Note Next Visit Plan Assess response to ultrasound and IFES with ice. Continue postural re-education, gentle shoulder ROM and strengthening . Trial iontophoresis. Plan of Care Dates Plan of Care Start Date 10/29/22 Plan of Care End Date 01/27/23 Electronically Signed by: Macey Silvestre, PT 10/29/22 [id number] If you are in agreement with this Plan of Care, please return a signed and dated copy. I have reviewed this Plan of Care and certify that the skilled therapy services above are required to meet the patient?s needs. Physician Signature Date Printed Name and Credentials Clinical Instructor Signature Printed Name and Credentials
--- NOTE | 2022-11-03 12:24 | PT.OTN ---
Current Diagnoses Pain in right shoulder (11/03/22) Incomplete rotator cuff tear or rupture of right shoulder, not specified as traumatic (11/03/22) Superior glenoid labrum lesion of right shoulder, initial encounter (11/03/22) Physical Therapy Treatment Note PT-OP-A Visit Information Start: 10/28/22 09:19 Freq: Status: Active Protocol: Document 11/03/22 12:09 SAK (Rec: 11/03/22 12:23 [facility] [id number]) Out-Patient Physical Therapy Visit Information Visit Information Visit Type Treatment Note Visit Start Time 11:15 Visit Stop Time 12:10 Total Visit Minutes 55 Visit Number 2 Evaluation Information Evaluation Date 10/29/22 Precautions Precautions cardiac: [place], has done cardiac rehab lymphedema PT-OP-B Current Condition Start: 10/28/22 09:19 Freq: Status: Active Protocol: Document 11/03/22 12:09 SAK (Rec: 11/03/22 12:23 [facility] [id number]) Current Condition History of Current Condition Onset Date 1 1/2 years Current Complaints right History of Current Condition gradual onset right shoulder pain unknown reason. Increases with trying to reach overhead, out to side, or behind her back; pain and tingling. If tries to sleep on back both arms go numb. Unable to wear compression sleeve left due to pain right shoulder; patient previously seen by this PT for right shoulder pain and felt at that time pain at least some due to overuse right UE. Goes back to the doctor after PT ( Clifford Diggs). 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 Saw fisher gill net. MRI right shoulder: incomplete RC tear, superior labral tear Prior Treatments and Tests Tylenol, ice, heat. Can't do UE ex at cardiac rehab, low tolerance for HEP previously instructed. Has TENS, but doesn't know how to use PT-OP-C Subjective Start: 10/28/22 09:19 Freq: Status: Active Protocol: Document 11/03/22 12:09 SAK (Rec: 11/03/22 12:23 [facility] [id number]) OP-PT Subjective Patient Comments Patient Comments Was ok after first PT treatment, no change in pain. PT-OP-E Functional Tests Start: 10/28/22 09:19 Freq: Status: Active Protocol: Document 10/29/22 09:50 SAK (Rec: 10/29/22 17:12 SAK [id number]) Functional Tests Apley's Scratch Test Action 1- Left anterior shoulder Action 1- Right posterior shoulder Action 2- Left T2 Action 2- Right lateral neck Action 3- Left lateral hip Action 3- Right T7 PT-OP-H Neuro Start: 10/28/22 09:19 Freq: Status: Active Protocol: Document 10/29/22 09:50 [facility] (Rec: 10/29/22 17:12 [facility] [id number]) Sensation Evaluation Gross Sensation Gross Sensation Left UE Impaired,Right UE Impaired Sensation Description Paresthesia Location Details Left Arm Light Touch Intact/Normal PT-OP-J Posture/Palpation/Skin Start: 10/28/22 09:19 Freq: Status: Active Protocol: Document 10/29/22 09:50 [facility] (Rec: 10/29/22 17:12 [facility] [id number]) Posture Evaluation Position Sitting Head/C-Spine Posture Forward Head T-Spine Posture Increased Kyphosis L-Spine Posture Increased Lordosis Shoulder Posture (L) Rounded,(R) Rounded Scapula Posture (L) Protracted,(R) Protracted Arm Posture (L) Internally Rotated,(R) Internally Rotated Pelvis Posture Anteriorly Tilted Palpation Assessment Location RC insertion Palpation Findings Tenderness Palpation Details entire joint line painful to palpation PT-OP-K Range of Motion Start: 10/28/22 09:19 Freq: Status: Active Protocol: Document 10/29/22 09:50 [facility] (Rec: 10/29/22 17:12 [facility] [id number]) Cervical Spine Range of Motion Cervical Spine Active Testing Position Sitting Flexion 50 Extension 10 Rotation Left 55 Rotation Right 55 Lateral Flexion Left 30 Lateral Flexion Right 30 Shoulder Goniometric Range of Motion Shoulder Left Shoulder ROM WFL No Testing Position Sitting Flexion 85 Extension 10 Abduction 75 External Rotation at 0 degrees Abduction 45 Right Shoulder ROM WFL Yes Comments mild limitations due to lymphedema PT-OP-L Special Tests Start: 10/28/22 09:19 Freq: Status: Active Protocol: Document 10/29/22 09:50 [facility] (Rec: 10/29/22 17:12 [facility] [id number]) Special Tests Shoulder Special Tests Lift-Off Rotator Cuff Test Results positive Elevation Impingement Test Results positive Drop Arm Rotator Cuff Test Results positve PT-OP-M Strength Start: 10/28/22 09:19 Freq: Status: Active Protocol: Document 10/29/22 09:50 [facility] (Rec: 10/29/22 17:12 [facility] [id number]) Shoulder Strength Shoulder Manual Muscle Testing Left Flexion 4- Good- Extension 4- Good- Adduction 4 Good External Rotation 4- Good- Internal Rotation 4 Good PT-OP-Q Treatments Start: 10/28/22 09:19 Freq: Status: Active Protocol: Document 11/03/22 12:09 [facility] (Rec: 11/03/22 12:23 [facility] [id number]) Therapeutic Exercises Sitting Exercises UT stretch Reps/Minutes 2x10 table slide Equipment Used pillow case Reps/Minutes 5x shoulder extension Reps/Minutes 10x5 shoulder ER Equipment Used ball behind back Reps/Minutes 10x scapular squeeze Equipment Used ball behind back Reps/Minutes 10x shoulder rolls Equipment Used ball behind back Reps/Minutes 10x pulleys Sitting Exercise Name flexion Equipment Used ball behind back Reps/Minutes 10x Comments thumb up, rucker-free ROM Self-Care/Home Management Treatment Education Patient Education Body Mechanics,Pain Management ,Posture PT-OP-R Modalities Start: 10/28/22 09:19 Freq: Status: Active Protocol: Document 11/03/22 12:09 [facility] (Rec: 11/03/22 12:23 [facility] [id number]) Electric Stimulation Electric Stimulation Interferential Current (IFC) Body Location left shoulder Duration (Minutes) 10 Intensity 6 Target/Sweep Sweep Patient Position Sitting Combined With Heat/Cold Cold Pack Ultrasound Therapy Treatment left heel Treatment Duration (minutes) 8 Patient Position Sitting Coupling Medium Ultrasound Gel Mode Setting Continuous Duty Cycle 50 Intensity Setting (w/cm2) 1.2 PT-OP-T Assessment and Plan Start: 10/28/22 09:19 Freq: Status: Active Protocol: Document 11/03/22 12:09 [facility] (Rec: 11/03/22 12:23 [facility] [id number]) Physical Therapy Assessment Goals Three Impairment activity tolerance Impairment Quickdash UE disability index score60% Credit Investigator Goal (LTG) Improve QuickDash score to no greater than 30% as measure of improved activity tolerance with right UE Two Impairment unable to reach overhead or behind her back with right shoulder Short Term Goal (STG) Patient will be able to reach use right UE to do her hair, and be able to pull punts up on right without increase in pain STG Duration 12/12/21 Group Home Goal (LTG) Patient will demonstrate full ROM with right shoulder to allow her to do all usual activities LTG Duration 01/27/23 One Impairment pain right shoulder as high as 8/10 Short Term Goal (STG) decrease pain to no greater than 6/10 with usual activities STG Duration 12/12/21 Credit Investigator Goal (LTG) decrease pain to no greater than 3/10 with all usual activities LTG Duration 01/27/23 Assessment Summary Assessment Patient presents to PT with function-limiting right shoulder pain with signs and symptoms consistent with MRI findings of rotator cuff tear, and labral tear. Feel contributing factors are postural dysfunction, overuse of right UE due to left UE lymphedema. Feel patient would benefit from physical therapy to decrease pain, improve ROM, strength, and functional use. Feel patient would benefit most from aquatic therapy; no appointments available this month but patient will be on waiting list. Patient symptoms very irritable, will need to be progressed slowly. Discussed POC and patient is in agreement. Patient tolerated gentle ther ex well with cues to exercise in pain- free ROM and intensity. Physical Therapy Plan Frequency and Duration Frequency of Treatment 2x/Week Duration of treatment (weeks) 12 Plan of Care Start Date 10/29/22 Plan of Care End Date 01/27/23 Therapeutic Interventions Therapeutic Interventions Aquatic Therapy,Home Exercise Program,Manual Therapy,Patient /Caregiver Education,Self-Care /Home Management,Soft Tissue Mobilization,Taping, Therapeutic Activities, Therapeutic Exercises Modalities Cold Pack/Ice Massage,Electric Stimulation,Hot Packs, Infrared Therapy,Iontophoresis ,Ultrasound Next Visit Focus/Plan Next Note Type Treatment Note Next Visit Plan Gentle progression of ther ex for right shoulder ROM and strengthening. Continue modalities and manual therapy PRN. Patient to obtain TENS for home use.
--- NOTE | 2022-11-03 12:24 | PT.OPPOC ---
Physical, Occupational & Speech Therapy At [facility] Current Diagnoses Pain in right shoulder (11/03/22) Incomplete rotator cuff tear or rupture of right shoulder, not specified as traumatic (11/03/22) Superior glenoid labrum lesion of right shoulder, initial encounter (11/03/22) Visit Care Team Role Provider Type Slade Mccann MD Primary Care Provider Physician Specialty: Family Practice Address: [facility] [place], [address] Email: [email or web address] Attending Provider Referring Provider Specialty: Address: Phone: Fax: Email: Plan Of Care PT-OP-T Assessment and Plan Start: 10/28/22 09:19 Freq: Status: Active Protocol: Document 11/03/22 12:09 SAK (Rec: 11/03/22 12:23 [facility] [id number]) Physical Therapy Assessment Goals Three Impairment activity tolerance Impairment Quickdash UE disability index score60% Co Founder And Director Goal (LTG) Improve QuickDash score to no greater than 30% as measure of improved activity tolerance with right UE Two Impairment unable to reach overhead or behind her back with right shoulder Short Term Goal (STG) Patient will be able to reach use right UE to do her hair, and be able to pull punts up on right without increase in pain STG Duration 12/12/21 Co Founder And Director Goal (LTG) Patient will demonstrate full ROM with right shoulder to allow her to do all usual activities LTG Duration 01/27/23 One Impairment pain right shoulder as high as 8/10 Short Term Goal (STG) decrease pain to no greater than 6/10 with usual activities STG Duration 12/12/21 Co Founder And Director Goal (LTG) decrease pain to no greater than 3/10 with all usual activities LTG Duration 01/27/23 Assessment Summary Assessment Patient presents to PT with function-limiting right shoulder pain with signs and symptoms consistent with MRI findings of rotator cuff tear, and labral tear. Feel contributing factors are postural dysfunction, overuse of right UE due to left UE lymphedema. Feel patient would benefit from physical therapy to decrease pain, improve ROM, strength, and functional use. Feel patient would benefit most from aquatic therapy; no appointments available this month but patient will be on waiting list. Patient symptoms very irritable, will need to be progressed slowly. Discussed POC and patient is in agreement. Patient tolerated gentle ther ex well with cues to exercise in pain- free ROM and intensity. Physical Therapy Plan Frequency and Duration Frequency of Treatment 2x/Week Duration of treatment (weeks) 12 Plan of Care Start Date 10/29/22 Plan of Care End Date 01/27/23 Therapeutic Interventions Therapeutic Interventions Aquatic Therapy,Home Exercise Program,Manual Therapy,Patient /Caregiver Education,Self-Care /Home Management,Soft Tissue Mobilization,Taping, Therapeutic Activities, Therapeutic Exercises Modalities Cold Pack/Ice Massage,Electric Stimulation,Hot Packs, Infrared Therapy,Iontophoresis ,Ultrasound Next Visit Focus/Plan Next Note Type Treatment Note Next Visit Plan Gentle progression of ther ex for right shoulder ROM and strengthening. Continue modalities and manual therapy PRN. Patient to obtain TENS for home use. Plan of Care Dates Plan of Care Start Date 10/29/22 Plan of Care End Date 01/27/23 Electronically Signed by: Macey Silvestre, PT 11/03/22 [id number] If you are in agreement with this Plan of Care, please return a signed and dated copy. I have reviewed this Plan of Care and certify that the skilled therapy services above are required to meet the patient?s needs. Physician Signature Date Printed Name and Credentials Clinical Instructor Signature Printed Name and Credentials
--- NOTE | 2022-11-05 12:05 | PT.OTN ---
Current Diagnoses Pain in right shoulder (11/05/22) Incomplete rotator cuff tear or rupture of right shoulder, not specified as traumatic (11/05/22) Superior glenoid labrum lesion of right shoulder, initial encounter (11/05/22) Physical Therapy Treatment Note PT-OP-A Visit Information Start: 10/28/22 09:19 Freq: Status: Active Protocol: Document 11/05/22 11:17 [facility] (Rec: 11/05/22 12:03 [facility] [id number]) Out-Patient Physical Therapy Visit Information Visit Information Visit Type Treatment Note Visit Start Time 11:17 Visit Stop Time 12:18 Total Visit Minutes 61 Visit Number 3 Evaluation Information Evaluation Date 10/29/22 Precautions Precautions cardiac: [place], has done cardiac rehab lymphedema PT-OP-B Current Condition Start: 10/28/22 09:19 Freq: Status: Active Protocol: Document 11/05/22 11:17 SAK (Rec: 11/05/22 12:03 [facility] [id number]) Current Condition History of Current Condition Onset Date 1 1/2 years Current Complaints right History of Current Condition gradual onset right shoulder pain unknown reason. Increases with trying to reach overhead, out to side, or behind her back; pain and tingling. If tries to sleep on back both arms go numb. Unable to wear compression sleeve left due to pain right shoulder; patient previously seen by this PT for right shoulder pain and felt at that time pain at least some due to overuse right UE. Goes back to the doctor after PT ( Clifford Diggs). 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 MRI right shoulder: incomplete RC tear, superior labral tear Prior Treatments and Tests Tylenol, ice, heat. Can't do UE ex at cardiac rehab, low tolerance for HEP previously instructed. Has TENS, but doesn't know how to use Treatment Goals Patient/Caregiver Goals Decrease pain, improve use of right UE. Patient is right handed. PT-OP-C Subjective Start: 10/28/22 09:19 Freq: Status: Active Protocol: Document 11/05/22 11:17 SAK (Rec: 11/05/22 12:03 [facility] [id number]) OP-PT Subjective Patient Comments Patient Comments Reports did well after PT last session. Liked iontophoresis patch. 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 PT-OP-E Functional Tests Start: 10/28/22 09:19 Freq: Status: Active Protocol: Document 10/29/22 09:50 [facility]AK (Rec: 10/29/22 17:12 [facility] [id number]) Functional Tests Apley's Scratch Test Action 1- Left anterior shoulder Action 1- Right posterior shoulder Action 2- Left T2 Action 2- Right lateral neck Action 3- Left lateral hip Action 3- Right T7 PT-OP-H Neuro Start: 10/28/22 09:19 Freq: Status: Active Protocol: Document 10/29/22 09:50 SAK (Rec: 10/29/22 17:12 [facility] [id number]) Sensation Evaluation Gross Sensation Gross Sensation Left UE Impaired,Right UE Impaired Sensation Description Paresthesia Location Details Left Arm Light Touch Intact/Normal PT-OP-J Posture/Palpation/Skin Start: 10/28/22 09:19 Freq: Status: Active Protocol: Document 10/29/22 09:50 [facility]AK (Rec: 10/29/22 17:12 [facility] [id number]) Posture Evaluation Position Sitting Head/C-Spine Posture Forward Head T-Spine Posture Increased Kyphosis L-Spine Posture Increased Lordosis Shoulder Posture (L) Rounded,(R) Rounded Scapula Posture (L) Protracted,(R) Protracted Arm Posture (L) Internally Rotated,(R) Internally Rotated Pelvis Posture Anteriorly Tilted Palpation Assessment Location RC insertion Palpation Findings Tenderness Palpation Details entire joint line painful to palpation PT-OP-K Range of Motion Start: 10/28/22 09:19 Freq: Status: Active Protocol: Document 10/29/22 09:50 [facility]AK (Rec: 10/29/22 17:12 [facility] [id number]) Cervical Spine Range of Motion Cervical Spine Active Testing Position Sitting Flexion 50 Extension 10 Rotation Left 55 Rotation Right 55 Lateral Flexion Left 30 Lateral Flexion Right 30 Shoulder Goniometric Range of Motion Shoulder Left Shoulder ROM WFL No Testing Position Sitting Flexion 85 Extension 10 Abduction 75 External Rotation at 0 degrees Abduction 45 Right Shoulder ROM WFL Yes Comments mild limitations due to lymphedema PT-OP-L Special Tests Start: 10/28/22 09:19 Freq: Status: Active Protocol: Document 10/29/22 09:50 [facility]AK (Rec: 10/29/22 17:12 [facility] [id number]) Special Tests Shoulder Special Tests Lift-Off Rotator Cuff Test Results positive Elevation Impingement Test Results positive Drop Arm Rotator Cuff Test Results positve PT-OP-M Strength Start: 10/28/22 09:19 Freq: Status: Active Protocol: Document 10/29/22 09:50 [facility] (Rec: 10/29/22 17:12 [facility] [id number]) Shoulder Strength Shoulder Manual Muscle Testing Left Flexion 4- Good- Extension 4- Good- Adduction 4 Good External Rotation 4- Good- Internal Rotation 4 Good PT-OP-Q Treatments Start: 10/28/22 09:19 Freq: Status: Active Protocol: Document 11/05/22 11:17 [facility] (Rec: 11/05/22 12:03 [facility] [id number]) Therapeutic Exercises Sitting Exercises adduction Sitting Exercise Name isometric Equipment Used towel roll Reps/Minutes 10x5 shoulder extension Reps/Minutes 5x Comments discontinued due to pain today shoulder ER Equipment Used ball behind back, wand Reps/Minutes 10x scapular squeeze Equipment Used ball behind back Reps/Minutes 10x shoulder rolls Equipment Used ball behind back Reps/Minutes 10x pulleys Sitting Exercise Name flexion Equipment Used ball behind back Reps/Minutes 10x Comments thumb up, rucker-free ROM Manual Therapy Treatment Soft Tissue Mobilization RC insertion Mobilization Type Cross-Friction Intensity/Depth Moderate Body Position Sitting Self-Care/Home Management Treatment Education Patient Education Body Mechanics,Pain Management ,Posture Other Education resume gentle isometric shld ex; will review next session PT-OP-R Modalities Start: 10/28/22 09:19 Freq: Status: Active Protocol: Document 11/05/22 11:17 [facility] (Rec: 11/05/22 12:03 [facility] [id number]) Electric Stimulation Electric Stimulation Interferential Current (IFC) Body Location left shoulder Duration (Minutes) 10 Intensity 6 Target/Sweep Sweep Patient Position Sitting Combined With Heat/Cold Cold Pack Ultrasound Therapy Treatment left heel Treatment Duration (minutes) 8 Patient Position Sitting Coupling Medium Ultrasound Gel Frequency Setting (mHz) 2 Mode Setting Pulsed Duty Cycle 50 Intensity Setting (w/cm2) 1.2 PT-OP-T Assessment and Plan Start: 10/28/22 09:19 Freq: Status: Active Protocol: Document 11/05/22 11:17 [facility] (Rec: 11/05/22 12:03 [facility] [id number]) Physical Therapy Assessment Impairments Impairments Functional Activities,Pain, Posture,ROM,Strength Goals Three Impairment activity tolerance Impairment Quickdash UE disability index score60% Instructor Modeling Goal (LTG) Improve QuickDash score to no greater than 30% as measure of improved activity tolerance with right UE Two Impairment unable to reach overhead or behind her back with right shoulder Short Term Goal (STG) Patient will be able to reach use right UE to do her hair, and be able to pull punts up on right without increase in pain STG Duration 12/12/21 Usp Goal (LTG) Patient will demonstrate full ROM with right shoulder to allow her to do all usual activities LTG Duration 01/27/23 One Impairment pain right shoulder as high as 8/10 Short Term Goal (STG) decrease pain to no greater than 6/10 with usual activities STG Duration 12/12/21 Instructor Modeling Goal (LTG) decrease pain to no greater than 3/10 with all usual activities LTG Duration 01/27/23 Assessment Summary Assessment Good response to iontophoresis last session. Shoulder aggravated by moving boxes at home, lower teetee for ex. Instructed to initiate gentle shoulder isometric (has handout from when previously seen). Physical Therapy Plan Frequency and Duration Frequency of Treatment 2x/Week Duration of treatment (weeks) 12 Plan of Care Start Date 10/29/22 Plan of Care End Date 01/27/23 Therapeutic Interventions Therapeutic Interventions Aquatic Therapy,Home Exercise Program,Manual Therapy,Patient /Caregiver Education,Self-Care /Home Management,Soft Tissue Mobilization,Taping, Therapeutic Activities, Therapeutic Exercises Modalities Cold Pack/Ice Massage,Electric Stimulation,Hot Packs, Infrared Therapy,Iontophoresis ,Ultrasound Next Visit Focus/Plan Next Note Type Treatment Note Next Visit Plan Review shoulder isometrics. Continue gentle progression of ther ex for right shoulder ROM and strengthening. Continue modalities and manual therapy PRN. Patient to obtain TENS for home use.
--- NOTE | 2022-11-10 10:30 | PT.OTN ---
Addendum entered and electronically signed by Fela Fink, VP [employer]ODUCT MARKETING 11/10/22 10:43: Pt reported did feel little tingle under iontopatch leaving. Instructed if continues and not in good way to remove. She was numb after last tx and maybe why didn't feel last tx. Original Note: Current Diagnoses Pain in right shoulder (11/10/22) Incomplete rotator cuff tear or rupture of right shoulder, not specified as traumatic (11/10/22) Superior glenoid labrum lesion of right shoulder, initial encounter (11/10/22) Physical Therapy Treatment Note PT-OP-A Visit Information Start: 10/28/22 09:19 Freq: Status: Active Protocol: Document 11/10/22 09:52 SP (Rec: 11/10/22 10:43 SP [id number]) Out-Patient Physical Therapy Visit Information Visit Information Visit Type Treatment Note Visit Start Time 09:52 Visit Stop Time 10:30 Total Visit Minutes 38 Visit Number 4 Number of VP [employer]ODUCT MARKETING Visits 1 Evaluation Information Evaluation Date 10/29/22 Precautions Precautions cardiac: [place], has done cardiac rehab lymphedema PT-OP-B Current Condition Start: 10/28/22 09:19 Freq: Status: Active Protocol: Document 11/05/22 11:17 SAK (Rec: 11/05/22 12:03 SAK [id number]) Current Condition History of Current Condition Onset Date 1 1/2 years Current Complaints right History of Current Condition gradual onset right shoulder pain unknown reason. Increases with trying to reach overhead, out to side, or behind her back; pain and tingling. If tries to sleep on back both arms go numb. Unable to wear compression sleeve left due to pain right shoulder; patient previously seen by this PT for right shoulder pain and felt at that time pain at least some due to overuse right UE. Goes back to the doctor after PT ( Clifford Diggs). 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 MRI right shoulder: incomplete RC tear, superior labral tear Prior Treatments and Tests Tylenol, ice, heat. Can't do UE ex at cardiac rehab, low tolerance for HEP previously instructed. Has TENS, but doesn't know how to use Treatment Goals Patient/Caregiver Goals Decrease pain, improve use of right UE. Patient is right handed. PT-OP-C Subjective Start: 10/28/22 09:19 Freq: Status: Active Protocol: Document 11/10/22 09:52 SP (Rec: 11/10/22 10:43 SP [id number]) OP-PT Subjective Patient Comments Patient Comments Pt reports was sore next day and not sure what did different. PT-OP-E Functional Tests Start: 10/28/22 09:19 Freq: Status: Active Protocol: Document 10/29/22 09:50 SAK (Rec: 10/29/22 17:12 SAK [id number]) Functional Tests Apley's Scratch Test Action 1- Left anterior shoulder Action 1- Right posterior shoulder Action 2- Left T2 Action 2- Right lateral neck Action 3- Left lateral hip Action 3- Right T7 PT-OP-H Neuro Start: 10/28/22 09:19 Freq: Status: Active Protocol: Document 10/29/22 09:50 SAK (Rec: 10/29/22 17:12 SAK [id number]) Sensation Evaluation Gross Sensation Gross Sensation Left UE Impaired,Right UE Impaired Sensation Description Paresthesia Location Details Left Arm Light Touch Intact/Normal PT-OP-J Posture/Palpation/Skin Start: 10/28/22 09:19 Freq: Status: Active Protocol: Document 10/29/22 09:50 SAK (Rec: 10/29/22 17:12 SAK [id number]) Posture Evaluation Position Sitting Head/C-Spine Posture Forward Head T-Spine Posture Increased Kyphosis L-Spine Posture Increased Lordosis Shoulder Posture (L) Rounded,(R) Rounded Scapula Posture (L) Protracted,(R) Protracted Arm Posture (L) Internally Rotated,(R) Internally Rotated Pelvis Posture Anteriorly Tilted Palpation Assessment Location RC insertion Palpation Findings Tenderness Palpation Details entire joint line painful to palpation PT-OP-K Range of Motion Start: 10/28/22 09:19 Freq: Status: Active Protocol: Document 10/29/22 09:50 SAK (Rec: 10/29/22 17:12 SAK [id number]) Cervical Spine Range of Motion Cervical Spine Active Testing Position Sitting Flexion 50 Extension 10 Rotation Left 55 Rotation Right 55 Lateral Flexion Left 30 Lateral Flexion Right 30 Shoulder Goniometric Range of Motion Shoulder Left Shoulder ROM WFL No Testing Position Sitting Flexion 85 Extension 10 Abduction 75 External Rotation at 0 degrees Abduction 45 Right Shoulder ROM WFL Yes Comments mild limitations due to lymphedema PT-OP-L Special Tests Start: 10/28/22 09:19 Freq: Status: Active Protocol: Document 10/29/22 09:50 SAK (Rec: 10/29/22 17:12 SAK [id number]) Special Tests Shoulder Special Tests Lift-Off Rotator Cuff Test Results positive Elevation Impingement Test Results positive Drop Arm Rotator Cuff Test Results positve PT-OP-M Strength Start: 10/28/22 09:19 Freq: Status: Active Protocol: Document 10/29/22 09:50 SAK (Rec: 10/29/22 17:12 SAK [id number]) Shoulder Strength Shoulder Manual Muscle Testing Left Flexion 4- Good- Extension 4- Good- Adduction 4 Good External Rotation 4- Good- Internal Rotation 4 Good PT-OP-Q Treatments Start: 10/28/22 09:19 Freq: Status: Active Protocol: Document 11/10/22 09:52 SP (Rec: 11/10/22 10:43 SP [id number]) Therapeutic Exercises Standing Exercises self STMs Standing Exercise Name added to HEP PRN: UT, rhomboid , ES, LB, Glut Equipment Used tennis ball in sock, posterior scap- discussed theracane- review next tx. Reps/Minutes 5 min total Comments good feedback massage, cued split stance pressure tolerance isometric Shld Standing Exercise Name added to HEP: IR, ER, FF, ext w/ elbow bent 90 deg Side right Equipment Used towel under arm IR/ ER Reps/Minutes 5 sec hold x10e each Comments cued for trunk/ arm set up Manual Therapy Treatment Soft Tissue Mobilization RC insertion Body Location distal RTC Mobilization Type Cross-Friction Intensity/Depth Moderate Body Position Sidelying Comments discussed pillow under arm alignment for sleeping as well . Good feedback massage and understanding arm alignment. PT-OP-R Modalities Start: 10/28/22 09:19 Freq: Status: Active Protocol: Document 11/10/22 09:52 SP (Rec: 11/10/22 10:43 SP [id number]) Iontophoresis Treatment R shld Treatment Medication Dexamethasone (-) Medication Amount (mL) (ml) 1 Treatment Duration (minutes) 240 Patient Tolerance Good PT-OP-T Assessment and Plan Start: 10/28/22 09:19 Freq: Status: Active Protocol: Document 11/10/22 09:52 SP (Rec: 11/10/22 10:43 SP [id number]) Physical Therapy Assessment Goals Three Impairment activity tolerance Impairment Quickdash UE disability index score60% Snf Goal (LTG) Improve QuickDash score to no greater than 30% as measure of improved activity tolerance with right UE Two Impairment unable to reach overhead or behind her back with right shoulder Short Term Goal (STG) Patient will be able to reach use right UE to do her hair, and be able to pull punts up on right without increase in pain STG Duration 12/12/21 Snf Goal (LTG) Patient will demonstrate full ROM with right shoulder to allow her to do all usual activities LTG Duration 01/27/23 One Impairment pain right shoulder as high as 8/10 Short Term Goal (STG) decrease pain to no greater than 6/10 with usual activities STG Duration 12/12/21 Bus Driver Goal (LTG) decrease pain to no greater than 3/10 with all usual activities LTG Duration 01/27/23 Assessment Summary Assessment Pt good response self STMs ball wall post scap ball wall, discussed theracane and neck stretches will review next tx. PRovided HOs for home. Iontophoresis R shld distal anterolateral deltoid area identified. Pt good understanding adverse affects to remove immediately: tingling, reddness, irritation otherwise remove 4-6 hrs. Mod cues for set up/form with isometrics R shld ease/ tolerant pressure with wall/ doorframe, improved response was doing to hard at home. Physical Therapy Plan Frequency and Duration Frequency of Treatment 2x/Week Duration of treatment (weeks) 12 Plan of Care Start Date 10/29/22 Plan of Care End Date 01/27/23 Therapeutic Interventions Therapeutic Interventions Aquatic Therapy,Home Exercise Program,Manual Therapy,Patient /Caregiver Education,Self-Care /Home Management,Soft Tissue Mobilization,Taping, Therapeutic Activities, Therapeutic Exercises Modalities Cold Pack/Ice Massage,Electric Stimulation,Hot Packs, Infrared Therapy,Iontophoresis ,Ultrasound Next Visit Focus/Plan Next Note Type Treatment Note Next Visit Plan Review shoulder isometrics. Continue gentle progression of ther ex for right shoulder ROM and strengthening. Continue modalities and manual therapy PRN. Patient to obtain TENS for home use.
--- NOTE | 2022-11-17 12:51 | PT-OP ANOTE ---
cancelled due to snow
--- NOTE | 2022-11-24 12:07 | PT.OTN ---
Current Diagnoses Pain in right shoulder (11/24/22) Incomplete rotator cuff tear or rupture of right shoulder, not specified as traumatic (11/24/22) Superior glenoid labrum lesion of right shoulder, initial encounter (11/24/22) Physical Therapy Treatment Note PT-OP-A Visit Information Start: 10/28/22 09:19 Freq: Status: Active Protocol: Document 11/24/22 11:20 SAK (Rec: 11/24/22 12:07 [facility] [id number]) Out-Patient Physical Therapy Visit Information Visit Information Visit Type Treatment Note Visit Start Time 11:20 Evaluation Information Evaluation Date 10/29/22 Precautions Precautions cardiac: [place], has done cardiac rehab lymphedema PT-OP-B Current Condition Start: 10/28/22 09:19 Freq: Status: Active Protocol: Document 11/05/22 11:17 SAK (Rec: 11/05/22 12:03 SAK [id number]) Current Condition History of Current Condition Onset Date 1 1/2 years Current Complaints right History of Current Condition gradual onset right shoulder pain unknown reason. Increases with trying to reach overhead, out to side, or behind her back; pain and tingling. If tries to sleep on back both arms go numb. Unable to wear compression sleeve left due to pain right shoulder; patient previously seen by this PT for right shoulder pain and felt at that time pain at least some due to overuse right UE. Goes back to the doctor after PT ( Clifford Diggs). 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 Saw ortho/prosthetic aide. MRI right shoulder: incomplete RC tear, superior labral tear Prior Treatments and Tests Tylenol, ice, heat. Can't do UE ex at cardiac rehab, low tolerance for HEP previously instructed. Has TENS, but doesn't know how to use Treatment Goals Patient/Caregiver Goals Decrease pain, improve use of right UE. Patient is right handed. PT-OP-C Subjective Start: 10/28/22 09:19 Freq: Status: Active Protocol: Document 11/24/22 11:20 SAK (Rec: 11/24/22 12:07 [facility] [id number]) OP-PT Subjective Patient Comments Patient Comments Missed PT due to snow. Trying to do her exercises, if she reaches or tries to use. Liked use of tennis ball for self-massage; used 1 x at home . PT-OP-E Functional Tests Start: 10/28/22 09:19 Freq: Status: Active Protocol: Document 10/29/22 09:50 SAK (Rec: 10/29/22 17:12 [facility] [id number]) Functional Tests Apley's Scratch Test Action 1- Left anterior shoulder Action 1- Right posterior shoulder Action 2- Left T2 Action 2- Right lateral neck Action 3- Left lateral hip Action 3- Right T7 PT-OP-H Neuro Start: 10/28/22 09:19 Freq: Status: Active Protocol: Document 10/29/22 09:50 SAK (Rec: 10/29/22 17:12 [facility] [id number]) Sensation Evaluation Gross Sensation Gross Sensation Left UE Impaired,Right UE Impaired Sensation Description Paresthesia Location Details Left Arm Light Touch Intact/Normal PT-OP-J Posture/Palpation/Skin Start: 10/28/22 09:19 Freq: Status: Active Protocol: Document 10/29/22 09:50 SAK (Rec: 10/29/22 17:12 [facility] [id number]) Posture Evaluation Position Sitting Head/C-Spine Posture Forward Head T-Spine Posture Increased Kyphosis L-Spine Posture Increased Lordosis Shoulder Posture (L) Rounded,(R) Rounded Scapula Posture (L) Protracted,(R) Protracted Arm Posture (L) Internally Rotated,(R) Internally Rotated Pelvis Posture Anteriorly Tilted Palpation Assessment Location RC insertion Palpation Findings Tenderness Palpation Details entire joint line painful to palpation PT-OP-K Range of Motion Start: 10/28/22 09:19 Freq: Status: Active Protocol: Document 10/29/22 09:50 SAK (Rec: 10/29/22 17:12 [facility] [id number]) Cervical Spine Range of Motion Cervical Spine Active Testing Position Sitting Flexion 50 Extension 10 Rotation Left 55 Rotation Right 55 Lateral Flexion Left 30 Lateral Flexion Right 30 Shoulder Goniometric Range of Motion Shoulder Left Shoulder ROM WFL No Testing Position Sitting Flexion 85 Extension 10 Abduction 75 External Rotation at 0 degrees Abduction 45 Right Shoulder ROM WFL Yes Comments mild limitations due to lymphedema PT-OP-L Special Tests Start: 10/28/22 09:19 Freq: Status: Active Protocol: Document 10/29/22 09:50 SAK (Rec: 10/29/22 17:12 [facility] [id number]) Special Tests Shoulder Special Tests Lift-Off Rotator Cuff Test Results positive Elevation Impingement Test Results positive Drop Arm Rotator Cuff Test Results positve PT-OP-M Strength Start: 10/28/22 09:19 Freq: Status: Active Protocol: Document 10/29/22 09:50 SAK (Rec: 10/29/22 17:12 [facility] [id number]) Shoulder Strength Shoulder Manual Muscle Testing Left Flexion 4- Good- Extension 4- Good- Adduction 4 Good External Rotation 4- Good- Internal Rotation 4 Good PT-OP-Q Treatments Start: 10/28/22 09:19 Freq: Status: Active Protocol: Document 11/24/22 11:20 SAK (Rec: 11/24/22 12:07 [facility] [id number]) Therapeutic Exercises Sitting Exercises adduction Sitting Exercise Name isometric Equipment Used towel roll Reps/Minutes 10x5 UT stretch Reps/Minutes 2x10 table slide Equipment Used pillow case Reps/Minutes 5x shoulder ER Equipment Used ball behind back, wand Reps/Minutes 10x scapular squeeze Equipment Used ball behind back Reps/Minutes 10x Comments cues for down and across shoulder rolls Equipment Used ball behind back Reps/Minutes 10x Standing Exercises isometric Shld Standing Exercise Name HEP except add reviewed Manual Therapy Treatment Soft Tissue Mobilization RC insertion Body Location distal RTC Mobilization Type Cross-Friction Intensity/Depth Moderate Body Position Sitting Self-Care/Home Management Treatment Education Patient Education Body Mechanics,Pain Management ,Posture Other Education importance of postural correction throughout the day PT-OP-R Modalities Start: 10/28/22 09:19 Freq: Status: Active Protocol: Document 11/24/22 11:20 SAK (Rec: 11/24/22 12:07 [facility] [id number]) Iontophoresis Treatment R shld Treatment Medication Dexamethasone (-) Medication Amount (mL) (ml) 1 Treatment Duration (minutes) 240 Patient Tolerance Good PT-OP-T Assessment and Plan Start: 10/28/22 09:19 Freq: Status: Active Protocol: Document 11/24/22 11:20 SAK (Rec: 11/24/22 12:07 [facility] [id number]) Physical Therapy Assessment Goals Three Impairment activity tolerance Impairment Quickdash UE disability index score60% Data Processing Clerk Goal (LTG) Improve QuickDash score to no greater than 30% as measure of improved activity tolerance with right UE Two Impairment unable to reach overhead or behind her back with right shoulder Short Term Goal (STG) Patient will be able to reach use right UE to do her hair, and be able to pull punts up on right without increase in pain STG Duration 12/12/21 Data Processing Clerk Goal (LTG) Patient will demonstrate full ROM with right shoulder to allow her to do all usual activities LTG Duration 01/27/23 One Impairment pain right shoulder as high as 8/10 Short Term Goal (STG) decrease pain to no greater than 6/10 with usual activities STG Duration 12/12/21 Care Home Goal (LTG) decrease pain to no greater than 3/10 with all usual activities LTG Duration 01/27/23 Physical Therapy Plan Frequency and Duration Frequency of Treatment 2x/Week Duration of treatment (weeks) 12 Plan of Care Start Date 10/29/22 Plan of Care End Date 01/27/23 Therapeutic Interventions Therapeutic Interventions Aquatic Therapy,Home Exercise Program,Manual Therapy,Patient /Caregiver Education,Self-Care /Home Management,Soft Tissue Mobilization,Taping, Therapeutic Activities, Therapeutic Exercises Modalities Cold Pack/Ice Massage,Electric Stimulation,Hot Packs, Infrared Therapy,Iontophoresis ,Ultrasound Next Visit Focus/Plan Next Note Type Treatment Note
--- NOTE | 2022-12-01 13:45 | PT.OTN ---
Current Diagnoses Pain in right shoulder (12/01/22) Incomplete rotator cuff tear or rupture of right shoulder, not specified as traumatic (12/01/22) Superior glenoid labrum lesion of right shoulder, initial encounter (12/01/22) Physical Therapy Treatment Note PT-OP-A Visit Information Start: 10/28/22 09:19 Freq: Status: Active Protocol: Document 12/01/22 13:05 SP (Rec: 12/01/22 13:49 SP [id number]) Out-Patient Physical Therapy Visit Information Visit Information Visit Type Treatment Note Visit Start Time 13:05 Visit Stop Time 13:45 Total Visit Minutes 40 Visit Number 6 Number of PARTS PICKER Visits 1 Evaluation Information Evaluation Date 10/29/22 Precautions Precautions cardiac: CT, has done cardiac rehab lymphedema PT-OP-B Current Condition Start: 10/28/22 09:19 Freq: Status: Active Protocol: Document 11/05/22 11:17 SAK (Rec: 11/05/22 12:03 SAK [id number]) Current Condition History of Current Condition Onset Date 1 1/2 years Current Complaints right History of Current Condition gradual onset right shoulder pain unknown reason. Increases with trying to reach overhead, out to side, or behind her back; pain and tingling. If tries to sleep on back both arms go numb. Unable to wear compression sleeve left due to pain right shoulder; patient previously seen by this PT for right shoulder pain and felt at that time pain at least some due to overuse right UE. Goes back to the doctor after PT ( Clifford Diggs). 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 Saw trestle mechanic. MRI right shoulder: incomplete RC tear, superior labral tear Prior Treatments and Tests Tylenol, ice, heat. Can't do UE ex at cardiac rehab, low tolerance for HEP previously instructed. Has TENS, but doesn't know how to use Treatment Goals Patient/Caregiver Goals Decrease pain, improve use of right UE. Patient is right handed. PT-OP-C Subjective Start: 10/28/22 09:19 Freq: Status: Active Protocol: Document 12/01/22 13:05 SP (Rec: 12/01/22 13:49 SP [id number]) OP-PT Subjective Patient Comments Patient Comments Pt reports saw opthamologist this morning and had injection in eye, feels like something in it but doing ok. R shld little irritated, reached out/ back to put on a different jacket and didn't have the ROM thought. PT-OP-E Functional Tests Start: 10/28/22 09:19 Freq: Status: Active Protocol: Document 10/29/22 09:50 SAK (Rec: 10/29/22 17:12 [facility] [id number]) Functional Tests Apley's Scratch Test Action 1- Left anterior shoulder Action 1- Right posterior shoulder Action 2- Left T2 Action 2- Right lateral neck Action 3- Left lateral hip Action 3- Right T7 PT-OP-H Neuro Start: 10/28/22 09:19 Freq: Status: Active Protocol: Document 10/29/22 09:50 SAK (Rec: 10/29/22 17:12 [facility] [id number]) Sensation Evaluation Gross Sensation Gross Sensation Left UE Impaired,Right UE Impaired Sensation Description Paresthesia Location Details Left Arm Light Touch Intact/Normal PT-OP-J Posture/Palpation/Skin Start: 10/28/22 09:19 Freq: Status: Active Protocol: Document 10/29/22 09:50 [facility] (Rec: 10/29/22 17:12 [facility] [id number]) Posture Evaluation Position Sitting Head/C-Spine Posture Forward Head T-Spine Posture Increased Kyphosis L-Spine Posture Increased Lordosis Shoulder Posture (L) Rounded,(R) Rounded Scapula Posture (L) Protracted,(R) Protracted Arm Posture (L) Internally Rotated,(R) Internally Rotated Pelvis Posture Anteriorly Tilted Palpation Assessment Location RC insertion Palpation Findings Tenderness Palpation Details entire joint line painful to palpation PT-OP-K Range of Motion Start: 10/28/22 09:19 Freq: Status: Active Protocol: Document 10/29/22 09:50 [facility] (Rec: 10/29/22 17:12 [facility] [id number]) Cervical Spine Range of Motion Cervical Spine Active Testing Position Sitting Flexion 50 Extension 10 Rotation Left 55 Rotation Right 55 Lateral Flexion Left 30 Lateral Flexion Right 30 Shoulder Goniometric Range of Motion Shoulder Left Shoulder ROM WFL No Testing Position Sitting Flexion 85 Extension 10 Abduction 75 External Rotation at 0 degrees Abduction 45 Right Shoulder ROM WFL Yes Comments mild limitations due to lymphedema PT-OP-L Special Tests Start: 10/28/22 09:19 Freq: Status: Active Protocol: Document 10/29/22 09:50 [facility] (Rec: 10/29/22 17:12 SAK [id number]) Special Tests Shoulder Special Tests Lift-Off Rotator Cuff Test Results positive Elevation Impingement Test Results positive Drop Arm Rotator Cuff Test Results positve PT-OP-M Strength Start: 10/28/22 09:19 Freq: Status: Active Protocol: Document 10/29/22 09:50 SAK (Rec: 10/29/22 17:12 SAK [id number]) Shoulder Strength Shoulder Manual Muscle Testing Left Flexion 4- Good- Extension 4- Good- Adduction 4 Good External Rotation 4- Good- Internal Rotation 4 Good PT-OP-Q Treatments Start: 10/28/22 09:19 Freq: Status: Active Protocol: Document 12/01/22 13:05 SP (Rec: 12/01/22 13:49 SP [id number]) Therapeutic Exercises Supine Exercises serratus pres Supine Exercise Name initiated in PT- suggested can perform at home Equipment Used dowel Reps/Minutes x5 reps Comments small range tolerant reps, least painfree FF Supine Exercise Name 55-142 deg cued mid range Resistance AAROM Equipment Used dowel Reps/Minutes x5 reps Comments cued slow pacing tolerant least amt pain ROM Sitting Exercises adduction Sitting Exercise Name isometric Equipment Used towel roll Reps/Minutes 10x5 Comments cued for neutral scapular positioning, no scap pro/ retract compensation scapular squeeze Equipment Used ball behind back Reps/Minutes 10x Comments max cues for down and across shoulder rolls Equipment Used ball/therapist hand behind back Reps/Minutes 10x Comments max cues least UT recruitment end position retraction/ depression Standing Exercises isometric Shld Standing Exercise Name reviewed HEP: Shld IR, ER, FF, ext Equipment Used gentle pressure. Reps/Minutes 5 sec hold x5 reps Comments max cues tall postur, scap retract/depressed set, elbow bent 90s deg front Manual Therapy Treatment Soft Tissue Mobilization RC insertion Body Location distal RTC, Mobilization Type Cross-Friction Intensity/Depth Moderate Body Position Sitting Joint Mobilizations R GH jt Direction inferior, posterior Grade II Body Position Hooklying Reps/Duration 2 min Comments manual painfree scapulothoracic Joint R shld Direction elevation/depression, protraction/retraction Grade II Body Position Sidelying Reps/Duration 2min Comments PROM, AAROM for body awareness PT-OP-R Modalities Start: 10/28/22 09:19 Freq: Status: Active Protocol: Document 11/24/22 11:20 SAK (Rec: 11/24/22 12:07 SAK [id number]) Iontophoresis Treatment R shld Treatment Medication Dexamethasone (-) Medication Amount (mL) (ml) 1 Treatment Duration (minutes) 240 Patient Tolerance Good PT-OP-T Assessment and Plan Start: 10/28/22 09:19 Freq: Status: Active Protocol: Document 12/01/22 13:05 SP (Rec: 12/01/22 13:49 SP [id number]) Physical Therapy Assessment Goals Three Impairment activity tolerance Impairment Quickdash UE disability index score60% Orchid Worker Goal (LTG) Improve QuickDash score to no greater than 30% as measure of improved activity tolerance with right UE Two Impairment unable to reach overhead or behind her back with right shoulder Short Term Goal (STG) Patient will be able to reach use right UE to do her hair, and be able to pull punts up on right without increase in pain STG Duration 12/12/21 Longterm Goal (LTG) Patient will demonstrate full ROM with right shoulder to allow her to do all usual activities LTG Duration 01/27/23 One Impairment pain right shoulder as high as 8/10 Short Term Goal (STG) decrease pain to no greater than 6/10 with usual activities STG Duration 12/12/21 Orchid Worker Goal (LTG) decrease pain to no greater than 3/10 with all usual activities LTG Duration 01/27/23 Assessment Summary Assessment Pt good tolerance to manual, max cues throughout tx during HEP review for proper set up isometrics, trunk elevated forward upper body over pelvis posturing seated to allow no UT/pec recruitment. Pt responded well to added supine serratus press and FF able to gain scapular/ GH AAROM with use of dowel support, best if stayed in painfree midrange. Physical Therapy Plan Frequency and Duration Frequency of Treatment 2x/Week Duration of treatment (weeks) 12 Plan of Care Start Date 10/29/22 Plan of Care End Date 01/27/23 Therapeutic Interventions Therapeutic Interventions Aquatic Therapy,Home Exercise Program,Manual Therapy,Patient /Caregiver Education,Self-Care /Home Management,Soft Tissue Mobilization,Taping, Therapeutic Activities, Therapeutic Exercises Modalities Cold Pack/Ice Massage,Electric Stimulation,Hot Packs, Infrared Therapy,Iontophoresis ,Ultrasound Next Visit Focus/Plan Next Note Type Treatment Note Next Visit Plan Recheck added jose e sandoval, FF w/ marissa, add R shld TB, challenged proper set up with isometrics.
--- NOTE | 2022-12-21 11:16 | PT.OTN ---
Current Diagnoses Pain in right shoulder (12/21/22) Incomplete rotator cuff tear or rupture of right shoulder, not specified as traumatic (12/21/22) Superior glenoid labrum lesion of right shoulder, initial encounter (12/21/22) Physical Therapy Treatment Note PT-OP-A Visit Information Start: 10/28/22 09:19 Freq: Status: Active Protocol: Document 12/21/22 10:36 SP (Rec: 12/21/22 11:25 SP [id number]) Out-Patient Physical Therapy Visit Information Visit Information Visit Type Treatment Note Visit Start Time 10:36 Visit Stop Time 11:16 Total Visit Minutes 40 Visit Number 7 Number of KNOWLEDGE MANAGEMENT ADVISOR Visits 2 Evaluation Information Evaluation Date 10/29/22 Precautions Precautions cardiac: DC, has done cardiac rehab lymphedema PT-OP-B Current Condition Start: 10/28/22 09:19 Freq: Status: Active Protocol: Document 11/05/22 11:17 SAK (Rec: 11/05/22 12:03 SAK [id number]) Current Condition History of Current Condition Onset Date 1 1/2 years Current Complaints right History of Current Condition gradual onset right shoulder pain unknown reason. Increases with trying to reach overhead, out to side, or behind her back; pain and tingling. If tries to sleep on back both arms go numb. Unable to wear compression sleeve left due to pain right shoulder; patient previously seen by this PT for right shoulder pain and felt at that time pain at least some due to overuse right UE. Goes back to the doctor after PT ( Clifford Diggs). 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 MRI right shoulder: incomplete RC tear, superior labral tear Prior Treatments and Tests Tylenol, ice, heat. Can't do UE ex at cardiac rehab, low tolerance for HEP previously instructed. Has TENS, but doesn't know how to use Treatment Goals Patient/Caregiver Goals Decrease pain, improve use of right UE. Patient is right handed. PT-OP-C Subjective Start: 10/28/22 09:19 Freq: Status: Active Protocol: Document 12/21/22 10:36 SP (Rec: 12/21/22 11:25 SP [id number]) OP-PT Subjective Patient Comments Patient Comments Pt stated she tried to keep up with HEP while out of town, been 20 days since last seen in PT. Patient Reported Progress Same PT-OP-E Functional Tests Start: 10/28/22 09:19 Freq: Status: Active Protocol: Document 10/29/22 09:50 SAK (Rec: 10/29/22 17:12 [facility] [id number]) Functional Tests Apley's Scratch Test Action 1- Left anterior shoulder Action 1- Right posterior shoulder Action 2- Left T2 Action 2- Right lateral neck Action 3- Left lateral hip Action 3- Right T7 PT-OP-H Neuro Start: 10/28/22 09:19 Freq: Status: Active Protocol: Document 10/29/22 09:50 SAK (Rec: 10/29/22 17:12 [facility] [id number]) Sensation Evaluation Gross Sensation Gross Sensation Left UE Impaired,Right UE Impaired Sensation Description Paresthesia Location Details Left Arm Light Touch Intact/Normal PT-OP-J Posture/Palpation/Skin Start: 10/28/22 09:19 Freq: Status: Active Protocol: Document 10/29/22 09:50 SAK (Rec: 10/29/22 17:12 [facility] [id number]) Posture Evaluation Position Sitting Head/C-Spine Posture Forward Head T-Spine Posture Increased Kyphosis L-Spine Posture Increased Lordosis Shoulder Posture (L) Rounded,(R) Rounded Scapula Posture (L) Protracted,(R) Protracted Arm Posture (L) Internally Rotated,(R) Internally Rotated Pelvis Posture Anteriorly Tilted Palpation Assessment Location RC insertion Palpation Findings Tenderness Palpation Details entire joint line painful to palpation PT-OP-K Range of Motion Start: 10/28/22 09:19 Freq: Status: Active Protocol: Document 10/29/22 09:50 SAK (Rec: 10/29/22 17:12 [facility] [id number]) Cervical Spine Range of Motion Cervical Spine Active Testing Position Sitting Flexion 50 Extension 10 Rotation Left 55 Rotation Right 55 Lateral Flexion Left 30 Lateral Flexion Right 30 Shoulder Goniometric Range of Motion Shoulder Left Shoulder ROM WFL No Testing Position Sitting Flexion 85 Extension 10 Abduction 75 External Rotation at 0 degrees Abduction 45 Right Shoulder ROM WFL Yes Comments mild limitations due to lymphedema PT-OP-L Special Tests Start: 10/28/22 09:19 Freq: Status: Active Protocol: Document 10/29/22 09:50 SAK (Rec: 10/29/22 17:12 [facility] [id number]) Special Tests Shoulder Special Tests Lift-Off Rotator Cuff Test Results positive Elevation Impingement Test Results positive Drop Arm Rotator Cuff Test Results positve PT-OP-M Strength Start: 10/28/22 09:19 Freq: Status: Active Protocol: Document 10/29/22 09:50 SAK (Rec: 10/29/22 17:12 SAK [id number]) Shoulder Strength Shoulder Manual Muscle Testing Left Flexion 4- Good- Extension 4- Good- Adduction 4 Good External Rotation 4- Good- Internal Rotation 4 Good PT-OP-Q Treatments Start: 10/28/22 09:19 Freq: Status: Active Protocol: Document 12/21/22 10:36 SP (Rec: 12/21/22 11:25 SP [id number]) Therapeutic Exercises Supine Exercises serratus pres Supine Exercise Name Added to HEP Side bilateral Equipment Used no bar AROM 1, dowel +1 # wt Reps/Minutes x5 reps Comments small range tolerant reps, least painfree FF Supine Exercise Name 50-142 deg cued comfortable mid range Side bilateral Resistance AAROM Equipment Used dowel Reps/Minutes x10 reps Comments cued slow pacing tolerant least amt pain ROM Sitting Exercises scapular squeeze Sitting Exercise Name HEP review Reps/Minutes 10x Comments improved form this tx shoulder rolls Sitting Exercise Name HEP review Reps/Minutes 10x Comments good form. Standing Exercises shld ext Standing Exercise Name added to HEP Resistance Tb #1 Reps/Minutes 2x10 Comments cued scap retraction/scap set con/ecc, TA neutral pelvis no LB recruitment R shld IR, ER Standing Exercise Name added to HEP Side right Resistance TB #1 Equipment Used mirror use level scap set retracted Reps/Minutes 2x10 each Comments cued scap retraction, con/ecc, humeral rot only- improved form Manual Therapy Treatment Soft Tissue Mobilization RC insertion Body Location distal RTC, Mobilization Type Cross-Friction Intensity/Depth Moderate Body Position Hooklying Joint Mobilizations R GH jt Direction inferior, posterior Grade II Body Position Hooklying Reps/Duration 2 min Comments manual painfree Manual Techniques PROM R shld Type Humeral inferior glide w/ FF and ER Body Location R shld Body Position Hooklying Reps/Duration x5 reps each Comments pain limits ROM but improved compared to AROM Self-Care/Home Management Treatment Education Patient Education Body Mechanics,Pain Management ,Posture Other Education Pt challenged with form/set up with shld isometrics so DC, added R shld IR/ ER/ ext w TB #1- improved form and scap set with cues scap retraction. PT-OP-R Modalities Start: 10/28/22 09:19 Freq: Status: Active Protocol: Document 11/24/22 11:20 SAK (Rec: 11/24/22 12:07 SAK [id number]) Iontophoresis Treatment R shld Treatment Medication Dexamethasone (-) Medication Amount (mL) (ml) 1 Treatment Duration (minutes) 240 Patient Tolerance Good PT-OP-T Assessment and Plan Start: 10/28/22 09:19 Freq: Status: Active Protocol: Document 12/21/22 10:36 SP (Rec: 12/21/22 11:25 SP [id number]) Physical Therapy Assessment Goals Three Impairment activity tolerance Impairment Quickdash UE disability index score60% Set Up Technician Goal (LTG) Improve QuickDash score to no greater than 30% as measure of improved activity tolerance with right UE Two Impairment unable to reach overhead or behind her back with right shoulder Short Term Goal (STG) Patient will be able to reach use right UE to do her hair, and be able to pull punts up on right without increase in pain STG Duration 12/12/21 Set Up Technician Goal (LTG) Patient will demonstrate full ROM with right shoulder to allow her to do all usual activities LTG Duration 01/27/23 One Impairment pain right shoulder as high as 8/10 Short Term Goal (STG) decrease pain to no greater than 6/10 with usual activities STG Duration 12/12/21 Set Up Technician Goal (LTG) decrease pain to no greater than 3/10 with all usual activities LTG Duration 01/27/23 Assessment Summary Assessment Pt improved scapular retraction/depression set for ther ex. DC isometrics, good feedback response progression strength with theraband, pt does need cues for neutral/PPT for no LB recruitment. Physical Therapy Plan Frequency and Duration Frequency of Treatment 2x/Week Duration of treatment (weeks) 12 Plan of Care Start Date 10/29/22 Plan of Care End Date 01/27/23 Therapeutic Interventions Therapeutic Interventions Aquatic Therapy,Home Exercise Program,Manual Therapy,Patient /Caregiver Education,Self-Care /Home Management,Soft Tissue Mobilization,Taping, Therapeutic Activities, Therapeutic Exercises Modalities Cold Pack/Ice Massage,Electric Stimulation,Hot Packs, Infrared Therapy,Iontophoresis ,Ultrasound Next Visit Focus/Plan Next Note Type Treatment Note Next Visit Plan Recheck added TB RTC standing. POC: continue gentle exercise progression for shoulder ROM, strengthening, scapular stabilization.
--- NOTE | 2022-12-24 15:04 | PT.OTN ---
Current Diagnoses Pain in right shoulder (12/24/22) Incomplete rotator cuff tear or rupture of right shoulder, not specified as traumatic (12/24/22) Superior glenoid labrum lesion of right shoulder, initial encounter (12/24/22) Physical Therapy Treatment Note PT-OP-A Visit Information Start: 10/28/22 09:19 Freq: Status: Active Protocol: Document 12/24/22 12:59 [facility] (Rec: 12/24/22 13:46 [facility] [id number]) Out-Patient Physical Therapy Visit Information Visit Information Visit Type Treatment Note Visit Start Time 13:00 Visit Stop Time 13:45 Total Visit Minutes 45 Visit Number 8 Number of SPECIAL CLIENT BUS DRIVER Visits 0 Evaluation Information Evaluation Date 10/29/22 Precautions Precautions cardiac: PR, has done cardiac rehab lymphedema PT-OP-B Current Condition Start: 10/28/22 09:19 Freq: Status: Active Protocol: Document 11/05/22 11:17 [facility] (Rec: 11/05/22 12:03 [facility] [id number]) Current Condition History of Current Condition Onset Date 1 1/2 years Current Complaints right History of Current Condition gradual onset right shoulder pain unknown reason. Increases with trying to reach overhead, out to side, or behind her back; pain and tingling. If tries to sleep on back both arms go numb. Unable to wear compression sleeve left due to pain right shoulder; patient previously seen by this PT for right shoulder pain and felt at that time pain at least some due to overuse right UE. Goes back to the doctor after PT ( Clifford Diggs). 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 MRI right shoulder: incomplete RC tear, superior labral tear Prior Treatments and Tests Tylenol, ice, heat. Can't do UE ex at cardiac rehab, low tolerance for HEP previously instructed. Has TENS, but doesn't know how to use Treatment Goals Patient/Caregiver Goals Decrease pain, improve use of right UE. Patient is right handed. PT-OP-C Subjective Start: 10/28/22 09:19 Freq: Status: Active Protocol: Document 12/24/22 12:59 [facility] (Rec: 12/24/22 13:46 [facility] [id number]) OP-PT Subjective Patient Comments Patient Comments 3-4/10 achy constant pain difficulty doing arm overhead exercise in bed today. PT-OP-E Functional Tests Start: 10/28/22 09:19 Freq: Status: Active Protocol: Document 10/29/22 09:50 [facility] (Rec: 10/29/22 17:12 [facility] [id number]) Functional Tests Apley's Scratch Test Action 1- Left anterior shoulder Action 1- Right posterior shoulder Action 2- Left T2 Action 2- Right lateral neck Action 3- Left lateral hip Action 3- Right T7 PT-OP-H Neuro Start: 10/28/22 09:19 Freq: Status: Active Protocol: Document 10/29/22 09:50 [facility] (Rec: 10/29/22 17:12 [facility] [id number]) Sensation Evaluation Gross Sensation Gross Sensation Left UE Impaired,Right UE Impaired Sensation Description Paresthesia Location Details Left Arm Light Touch Intact/Normal PT-OP-J Posture/Palpation/Skin Start: 10/28/22 09:19 Freq: Status: Active Protocol: Document 10/29/22 09:50 [facility] (Rec: 10/29/22 17:12 [facility] [id number]) Posture Evaluation Position Sitting Head/C-Spine Posture Forward Head T-Spine Posture Increased Kyphosis L-Spine Posture Increased Lordosis Shoulder Posture (L) Rounded,(R) Rounded Scapula Posture (L) Protracted,(R) Protracted Arm Posture (L) Internally Rotated,(R) Internally Rotated Pelvis Posture Anteriorly Tilted Palpation Assessment Location RC insertion Palpation Findings Tenderness Palpation Details entire joint line painful to palpation PT-OP-K Range of Motion Start: 10/28/22 09:19 Freq: Status: Active Protocol: Document 10/29/22 09:50 [facility] (Rec: 10/29/22 17:12 [facility] [id number]) Cervical Spine Range of Motion Cervical Spine Active Testing Position Sitting Flexion 50 Extension 10 Rotation Left 55 Rotation Right 55 Lateral Flexion Left 30 Lateral Flexion Right 30 Shoulder Goniometric Range of Motion Shoulder Left Shoulder ROM WFL No Testing Position Sitting Flexion 85 Extension 10 Abduction 75 External Rotation at 0 degrees Abduction 45 Right Shoulder ROM WFL Yes Comments mild limitations due to lymphedema PT-OP-L Special Tests Start: 10/28/22 09:19 Freq: Status: Active Protocol: Document 10/29/22 09:50 [facility] (Rec: 10/29/22 17:12 [facility] [id number]) Special Tests Shoulder Special Tests Lift-Off Rotator Cuff Test Results positive Elevation Impingement Test Results positive Drop Arm Rotator Cuff Test Results positve PT-OP-M Strength Start: 10/28/22 09:19 Freq: Status: Active Protocol: Document 10/29/22 09:50 [facility] (Rec: 10/29/22 17:12 [facility] [id number]) Shoulder Strength Shoulder Manual Muscle Testing Left Flexion 4- Good- Extension 4- Good- Adduction 4 Good External Rotation 4- Good- Internal Rotation 4 Good PT-OP-Q Treatments Start: 10/28/22 09:19 Freq: Status: Active Protocol: Document 12/24/22 12:59 [facility] (Rec: 12/24/22 13:46 [facility] [id number]) Therapeutic Exercises Supine Exercises serratus pres Side bilateral Equipment Used dowel Reps/Minutes 10x Comments small range, tolerant reps, least painful FF Supine Exercise Name cued comfortable mid range Side bilateral Resistance AAROM Equipment Used dowel Reps/Minutes x10 reps Comments cued slow pacing tolerant least amt pain ROM Sitting Exercises scapular squeeze Sitting Exercise Name HEP review Reps/Minutes 10x Comments no shoulder elevation Standing Exercises shld ext Resistance Tb #1 Reps/Minutes 2x10 Comments cued scap retraction/scap set con/ecc, TA neutral pelvis no LB recruitment R shld IR, ER Side right Resistance TB #1 Equipment Used mirror use level scap set retracted Reps/Minutes 2x10 each Comments cued scap retraction, con/ecc, humeral rot only Manual Therapy Treatment Soft Tissue Mobilization biceps Mobilization Type Myofascial Release,Strumming, Sustained Pressure Intensity/Depth Moderate Body Position Hooklying RC insertion Body Location distal RTC, Mobilization Type Cross-Friction Intensity/Depth Moderate Body Position Hooklying Joint Mobilizations R GH jt Direction inferior, posterior Grade II Body Position Hooklying Reps/Duration 5 min Comments manual painfree Manual Techniques PROM R shld Type Humeral inferior glide w/ FF and ER Body Location R shld Body Position Hooklying Reps/Duration x5 reps each Comments pain limits ROM but improved compared to AROM Self-Care/Home Management Treatment Education Patient Education Body Mechanics,Pain Management ,Posture Other Education cues to prevent UT activation with ther ex. Good tolerance TB ex. Palpable inc tightness today biceps, encouraged self massage with tennis ball, gentle heat. PT-OP-R Modalities Start: 10/28/22 09:19 Freq: Status: Active Protocol: Document 11/24/22 11:20 [facility] (Rec: 11/24/22 12:07 [facility] [id number]) Iontophoresis Treatment R shld Treatment Medication Dexamethasone (-) Medication Amount (mL) (ml) 1 Treatment Duration (minutes) 240 Patient Tolerance Good PT-OP-T Assessment and Plan Start: 10/28/22 09:19 Freq: Status: Active Protocol: Document 12/24/22 12:59 [facility] (Rec: 12/24/22 13:46 [facility] [id number]) Physical Therapy Assessment Goals Three Impairment activity tolerance Impairment Quickdash UE disability index score60% Salesperson Art Objects Goal (LTG) Improve QuickDash score to no greater than 30% as measure of improved activity tolerance with right UE Two Impairment unable to reach overhead or behind her back with right shoulder Short Term Goal (STG) Patient will be able to reach use right UE to do her hair, and be able to pull punts up on right without increase in pain STG Duration 12/12/21 Senior Care Goal (LTG) Patient will demonstrate full ROM with right shoulder to allow her to do all usual activities LTG Duration 01/27/23 One Impairment pain right shoulder as high as 8/10 Short Term Goal (STG) decrease pain to no greater than 6/10 with usual activities STG Duration 12/12/21 Senior Care Goal (LTG) decrease pain to no greater than 3/10 with all usual activities LTG Duration 01/27/23 Assessment Summary Assessment Cues required for scapular retraction and depression. Good tolerance for TB but with some cues for set-up, improved understanding after review. Aquatic exercise encouraged for patient for full body areas due to multiple areas of pain, lymphedema, pt to consider. Physical Therapy Plan Frequency and Duration Frequency of Treatment 2x/Week Duration of treatment (weeks) 12 Plan of Care Start Date 10/29/22 Plan of Care End Date 01/27/23 Therapeutic Interventions Therapeutic Interventions Aquatic Therapy,Home Exercise Program,Manual Therapy,Patient /Caregiver Education,Self-Care /Home Management,Soft Tissue Mobilization,Taping, Therapeutic Activities, Therapeutic Exercises Modalities Cold Pack/Ice Massage,Electric Stimulation,Hot Packs, Infrared Therapy,Iontophoresis ,Ultrasound Next Visit Focus/Plan Next Note Type Treatment Note Next Visit Plan Question further about potential aquatic exercise, possibly issue written HO, give information for private exercise session. POC: continue gentle exercise progression for shoulder ROM, strengthening, scapular stabilization, soft tissue mobilization
--- NOTE | 2022-12-29 16:35 | PT.OTN ---
Current Diagnoses Pain in right shoulder (12/29/22) Incomplete rotator cuff tear or rupture of right shoulder, not specified as traumatic (12/29/22) Superior glenoid labrum lesion of right shoulder, initial encounter (12/29/22) Physical Therapy Treatment Note PT-OP-A Visit Information Start: 10/28/22 09:19 Freq: Status: Active Protocol: Document 12/29/22 14:29 [facility] (Rec: 12/29/22 15:13 [facility] [id number]) Out-Patient Physical Therapy Visit Information Visit Information Visit Type Treatment Note Visit Start Time 14:29 Visit Stop Time 15:14 Total Visit Minutes 45 Visit Number 9 Number of FORKLIFT DRIVER Visits 0 Evaluation Information Evaluation Date 10/29/22 Precautions Precautions cardiac: [place], has done cardiac rehab lymphedema PT-OP-B Current Condition Start: 10/28/22 09:19 Freq: Status: Active Protocol: Document 11/05/22 11:17 [facility] (Rec: 11/05/22 12:03 [facility] [id number]) Current Condition History of Current Condition Onset Date 1 1/2 years Current Complaints right History of Current Condition gradual onset right shoulder pain unknown reason. Increases with trying to reach overhead, out to side, or behind her back; pain and tingling. If tries to sleep on back both arms go numb. Unable to wear compression sleeve left due to pain right shoulder; patient previously seen by this PT for right shoulder pain and felt at that time pain at least some due to overuse right UE. Goes back to the doctor after PT ( Clifford Diggs). 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 Saw human resources designate. MRI right shoulder: incomplete RC tear, superior labral tear Prior Treatments and Tests Tylenol, ice, heat. Can't do UE ex at cardiac rehab, low tolerance for HEP previously instructed. Has TENS, but doesn't know how to use Treatment Goals Patient/Caregiver Goals Decrease pain, improve use of right UE. Patient is right handed. PT-OP-C Subjective Start: 10/28/22 09:19 Freq: Status: Active Protocol: Document 12/29/22 14:29 [facility] (Rec: 12/29/22 15:13 [facility] [id number]) OP-PT Subjective Patient Comments Patient Comments Was doing better, had immunizations in right UE then went to cardiac rehab today and did a lot of arm work, more sore. PT-OP-E Functional Tests Start: 10/28/22 09:19 Freq: Status: Active Protocol: Document 10/29/22 09:50 [facility] (Rec: 10/29/22 17:12 [facility] [id number]) Functional Tests Apley's Scratch Test Action 1- Left anterior shoulder Action 1- Right posterior shoulder Action 2- Left T2 Action 2- Right lateral neck Action 3- Left lateral hip Action 3- Right T7 PT-OP-H Neuro Start: 10/28/22 09:19 Freq: Status: Active Protocol: Document 10/29/22 09:50 [facility] (Rec: 10/29/22 17:12 [facility] [id number]) Sensation Evaluation Gross Sensation Gross Sensation Left UE Impaired,Right UE Impaired Sensation Description Paresthesia Location Details Left Arm Light Touch Intact/Normal PT-OP-J Posture/Palpation/Skin Start: 10/28/22 09:19 Freq: Status: Active Protocol: Document 10/29/22 09:50 [facility] (Rec: 10/29/22 17:12 [facility] [id number]) Posture Evaluation Position Sitting Head/C-Spine Posture Forward Head T-Spine Posture Increased Kyphosis L-Spine Posture Increased Lordosis Shoulder Posture (L) Rounded,(R) Rounded Scapula Posture (L) Protracted,(R) Protracted Arm Posture (L) Internally Rotated,(R) Internally Rotated Pelvis Posture Anteriorly Tilted Palpation Assessment Location RC insertion Palpation Findings Tenderness Palpation Details entire joint line painful to palpation PT-OP-K Range of Motion Start: 10/28/22 09:19 Freq: Status: Active Protocol: Document 10/29/22 09:50 [facility] (Rec: 10/29/22 17:12 [facility] [id number]) Cervical Spine Range of Motion Cervical Spine Active Testing Position Sitting Flexion 50 Extension 10 Rotation Left 55 Rotation Right 55 Lateral Flexion Left 30 Lateral Flexion Right 30 Shoulder Goniometric Range of Motion Shoulder Left Shoulder ROM WFL No Testing Position Sitting Flexion 85 Extension 10 Abduction 75 External Rotation at 0 degrees Abduction 45 Right Shoulder ROM WFL Yes Comments mild limitations due to lymphedema PT-OP-L Special Tests Start: 10/28/22 09:19 Freq: Status: Active Protocol: Document 10/29/22 09:50 [facility] (Rec: 10/29/22 17:12 [facility] [id number]) Special Tests Shoulder Special Tests Lift-Off Rotator Cuff Test Results positive Elevation Impingement Test Results positive Drop Arm Rotator Cuff Test Results positve PT-OP-M Strength Start: 10/28/22 09:19 Freq: Status: Active Protocol: Document 10/29/22 09:50 [facility] (Rec: 10/29/22 17:12 [facility] [id number]) Shoulder Strength Shoulder Manual Muscle Testing Left Flexion 4- Good- Extension 4- Good- Adduction 4 Good External Rotation 4- Good- Internal Rotation 4 Good PT-OP-Q Treatments Start: 10/28/22 09:19 Freq: Status: Active Protocol: Document 12/29/22 14:29 [facility] (Rec: 12/29/22 15:13 [facility] [id number]) Therapeutic Exercises Supine Exercises rhythmic stab isometrics Supine Exercise Name ER/IR, ab/ad, bic/tric Reps/Minutes 4 min serratus pres Side bilateral Equipment Used dowel Reps/Minutes 10x Comments small range, tolerant reps, least painful FF Supine Exercise Name cued comfortable mid range Side bilateral Resistance AAROM Equipment Used dowel Reps/Minutes x10 reps Comments cued slow pacing tolerant least amt pain ROM Sitting Exercises scapular squeeze Resistance MR Equipment Used mirror Reps/Minutes 10x Comments vc and visual cues to prevent UT activation Standing Exercises shld ext Resistance Tb #1 Reps/Minutes 2x10 Comments cued scap retraction/scap set con/ecc, TA neutral pelvis no LB recruitment R shld IR, ER Side right Resistance TB #1 Equipment Used mirror use level scap set retracted Reps/Minutes 2x10 each Comments cued scap retraction, con/ecc, humeral rot only Manual Therapy Treatment Soft Tissue Mobilization biceps Mobilization Type Myofascial Release,Strumming, Sustained Pressure Intensity/Depth Moderate Body Position Hooklying RC insertion Body Location distal RTC, Mobilization Type Cross-Friction Intensity/Depth Moderate Body Position Hooklying Joint Mobilizations R GH jt Direction inferior, posterior Grade II Body Position Hooklying Reps/Duration 5 min Comments manual painfree Manual Techniques PROM R shld Type Humeral inferior glide w/ FF and ER Body Location R shld Body Position Hooklying Reps/Duration x5 reps each Comments pain limits ROM but improved compared to AROM Self-Care/Home Management Treatment Education Patient Education Body Mechanics,Pain Management ,Posture PT-OP-R Modalities Start: 10/28/22 09:19 Freq: Status: Active Protocol: Document 12/29/22 14:29 [facility] (Rec: 12/29/22 15:14 [facility] [id number]) Hot Pack/Cold Pack Treatment Cold Pack Location right shoulder Patient Position Hooklying Treatment Duration (minutes) 10 Patient Tolerance Good PT-OP-T Assessment and Plan Start: 10/28/22 09:19 Freq: Status: Active Protocol: Document 12/29/22 14:29 [facility] (Rec: 12/29/22 15:13 [facility] [id number]) Physical Therapy Assessment Goals Three Impairment activity tolerance Impairment Quickdash UE disability index score60% Intermediate Goal (LTG) Improve QuickDash score to no greater than 30% as measure of improved activity tolerance with right UE Two Impairment unable to reach overhead or behind her back with right shoulder Short Term Goal (STG) Patient will be able to reach use right UE to do her hair, and be able to pull punts up on right without increase in pain STG Duration 12/12/21 Dance Teacher Goal (LTG) Patient will demonstrate full ROM with right shoulder to allow her to do all usual activities LTG Duration 01/27/23 One Impairment pain right shoulder as high as 8/10 Short Term Goal (STG) decrease pain to no greater than 6/10 with usual activities STG Duration 12/12/21 Intermediate Goal (LTG) decrease pain to no greater than 3/10 with all usual activities LTG Duration 01/27/23 Assessment Summary Assessment tactile and visual cues for scapular retraction and stab without UT activation with improving understanding and right scapular movement with manual resistance. More sore today after vaccinations and UE ex in cardiac rehab; urged to modify. Has not yet gone to pool for aquatic exercise. Physical Therapy Plan Frequency and Duration Frequency of Treatment 2x/Week Duration of treatment (weeks) 12 Plan of Care Start Date 10/29/22 Plan of Care End Date 01/27/23 Therapeutic Interventions Therapeutic Interventions Aquatic Therapy,Home Exercise Program,Manual Therapy,Patient /Caregiver Education,Self-Care /Home Management,Soft Tissue Mobilization,Taping, Therapeutic Activities, Therapeutic Exercises Modalities Cold Pack/Ice Massage,Electric Stimulation,Hot Packs, Infrared Therapy,Iontophoresis ,Ultrasound Next Visit Focus/Plan Next Note Type Treatment Note
--- NOTE | 2022-12-31 17:31 | PT.OTN ---
Current Diagnoses Pain in right shoulder (12/31/22) Incomplete rotator cuff tear or rupture of right shoulder, not specified as traumatic (12/31/22) Superior glenoid labrum lesion of right shoulder, initial encounter (12/31/22) Physical Therapy Treatment Note PT-OP-A Visit Information Start: 10/28/22 09:19 Freq: Status: Active Protocol: Document 12/31/22 11:18 SAK (Rec: 12/31/22 12:05 [facility] [id number]) Out-Patient Physical Therapy Visit Information Visit Information Visit Type Treatment Note Visit Start Time 11:18 Visit Stop Time 12:10 Total Visit Minutes 52 Visit Number 10 Number of CAGER OPERATOR Visits 0 Evaluation Information Evaluation Date 10/29/22 Precautions Precautions cardiac: [place], has done cardiac rehab lymphedema PT-OP-B Current Condition Start: 10/28/22 09:19 Freq: Status: Active Protocol: Document 11/05/22 11:17 SAK (Rec: 11/05/22 12:03 SAK [id number]) Current Condition History of Current Condition Onset Date 1 1/2 years Current Complaints right History of Current Condition gradual onset right shoulder pain unknown reason. Increases with trying to reach overhead, out to side, or behind her back; pain and tingling. If tries to sleep on back both arms go numb. Unable to wear compression sleeve left due to pain right shoulder; patient previously seen by this PT for right shoulder pain and felt at that time pain at least some due to overuse right UE. Goes back to the doctor after PT ( Clifford Diggs). 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 Saw knockout machine operator. MRI right shoulder: incomplete RC tear, superior labral tear Prior Treatments and Tests Tylenol, ice, heat. Can't do UE ex at cardiac rehab, low tolerance for HEP previously instructed. Has TENS, but doesn't know how to use Treatment Goals Patient/Caregiver Goals Decrease pain, improve use of right UE. Patient is right handed. PT-OP-C Subjective Start: 10/28/22 09:19 Freq: Status: Active Protocol: Document 12/31/22 11:18 SAK (Rec: 12/31/22 12:05 SAK [id number]) OP-PT Subjective Patient Comments Patient Comments cardiac rehab again prior to PT, fair bit of arms. PT cues for thumb up with rotation helpful in dec pain. Whole body sore last night and didn' t sleep well. Is noticing some improved ability to get dressed and use arm. PT-OP-E Functional Tests Start: 10/28/22 09:19 Freq: Status: Active Protocol: Document 10/29/22 09:50 SAK (Rec: 10/29/22 17:12 [facility] [id number]) Functional Tests Apley's Scratch Test Action 1- Left anterior shoulder Action 1- Right posterior shoulder Action 2- Left T2 Action 2- Right lateral neck Action 3- Left lateral hip Action 3- Right T7 PT-OP-H Neuro Start: 10/28/22 09:19 Freq: Status: Active Protocol: Document 10/29/22 09:50 SAK (Rec: 10/29/22 17:12 [facility] [id number]) Sensation Evaluation Gross Sensation Gross Sensation Left UE Impaired,Right UE Impaired Sensation Description Paresthesia Location Details Left Arm Light Touch Intact/Normal PT-OP-J Posture/Palpation/Skin Start: 10/28/22 09:19 Freq: Status: Active Protocol: Document 10/29/22 09:50 SAK (Rec: 10/29/22 17:12 [facility] [id number]) Posture Evaluation Position Sitting Head/C-Spine Posture Forward Head T-Spine Posture Increased Kyphosis L-Spine Posture Increased Lordosis Shoulder Posture (L) Rounded,(R) Rounded Scapula Posture (L) Protracted,(R) Protracted Arm Posture (L) Internally Rotated,(R) Internally Rotated Pelvis Posture Anteriorly Tilted Palpation Assessment Location RC insertion Palpation Findings Tenderness Palpation Details entire joint line painful to palpation PT-OP-K Range of Motion Start: 10/28/22 09:19 Freq: Status: Active Protocol: Document 10/29/22 09:50 SAK (Rec: 10/29/22 17:12 [facility] [id number]) Cervical Spine Range of Motion Cervical Spine Active Testing Position Sitting Flexion 50 Extension 10 Rotation Left 55 Rotation Right 55 Lateral Flexion Left 30 Lateral Flexion Right 30 Shoulder Goniometric Range of Motion Shoulder Left Shoulder ROM WFL No Testing Position Sitting Flexion 85 Extension 10 Abduction 75 External Rotation at 0 degrees Abduction 45 Right Shoulder ROM WFL Yes Comments mild limitations due to lymphedema PT-OP-L Special Tests Start: 10/28/22 09:19 Freq: Status: Active Protocol: Document 10/29/22 09:50 SAK (Rec: 10/29/22 17:12 [facility] [id number]) Special Tests Shoulder Special Tests Lift-Off Rotator Cuff Test Results positive Elevation Impingement Test Results positive Drop Arm Rotator Cuff Test Results positve PT-OP-M Strength Start: 10/28/22 09:19 Freq: Status: Active Protocol: Document 10/29/22 09:50 SAK (Rec: 10/29/22 17:12 [facility] [id number]) Shoulder Strength Shoulder Manual Muscle Testing Left Flexion 4- Good- Extension 4- Good- Adduction 4 Good External Rotation 4- Good- Internal Rotation 4 Good PT-OP-Q Treatments Start: 10/28/22 09:19 Freq: Status: Active Protocol: Document 12/31/22 11:18 [facility] (Rec: 12/31/22 12:05 [facility] [id number]) Therapeutic Exercises Supine Exercises hor ab Resistance L1 TB Reps/Minutes 10x Comments cues for scapular retraction rhythmic stab isometrics Supine Exercise Name ER/IR, ab/ad, bic/tric Reps/Minutes 4 min serratus pres Side bilateral Equipment Used dowel Reps/Minutes 10x Comments small range, tolerant reps, least painful FF Supine Exercise Name 90-end range comfortale Side right Resistance L1 TB Reps/Minutes x10 reps Comments cued slow pacing tolerant least amt pain ROM Sidelying Exercises scapular clocks Sidelying Exercise Name 3:00, 4, 5 Resistance manual Reps/Minutes 5x ea Sitting Exercises scapular squeeze Resistance MR Equipment Used mirror Reps/Minutes 10x Comments vc and visual cues to prevent UT activation Standing Exercises lateral trunk flex stretch Reps/Minutes 3x 10 Comments to right counter stretch Standing Exercise Name FF Reps/Minutes 5x wall posture Reps/Minutes 5x Comments mirror for visual feedback shld ext Resistance Tb #1 Reps/Minutes 2x10 Comments cued scap retraction/scap set con/ecc, TA neutral pelvis no LB recruitment R shld IR, ER Side right Resistance TB #1 Equipment Used mirror use level scap set retracted Reps/Minutes 2x10 each Comments cued scap retraction, con/ecc, humeral rot only Manual Therapy Treatment Soft Tissue Mobilization biceps Mobilization Type Myofascial Release,Strumming, Sustained Pressure Intensity/Depth Moderate Body Position Hooklying RC insertion Body Location distal RTC, Mobilization Type Cross-Friction Intensity/Depth Moderate Body Position Hooklying Joint Mobilizations R GH jt Direction inferior, posterior Grade II Body Position Hooklying Reps/Duration 5 min Comments manual painfree scapulothoracic Joint R shld Direction elevation/depression, protraction/retraction Grade III Body Position Sidelying Reps/Duration 4min Comments PROM, AAROM for body awareness Manual Techniques PROM R shld Type Humeral inferior glide w/ FF and ER Body Location R shld Body Position Hooklying Reps/Duration x5 reps each Self-Care/Home Management Treatment Education Patient Education Body Mechanics,Pain Management ,Posture PT-OP-R Modalities Start: 10/28/22 09:19 Freq: Status: Active Protocol: Document 12/29/22 14:29 SAK (Rec: 12/29/22 15:14 [facility] [id number]) Hot Pack/Cold Pack Treatment Cold Pack Location right shoulder Patient Position Hooklying Treatment Duration (minutes) 10 Patient Tolerance Good PT-OP-T Assessment and Plan Start: 10/28/22 09:19 Freq: Status: Active Protocol: Document 12/31/22 11:18 SAK (Rec: 12/31/22 12:05 [facility] [id number]) Physical Therapy Assessment Goals Three Impairment activity tolerance Impairment Quickdash UE disability index score60% Tannery Gummer Goal (LTG) Improve QuickDash score to no greater than 30% as measure of improved activity tolerance with right UE 12/30/22: decreased to 39% Two Impairment unable to reach overhead or behind her back with right shoulder Short Term Goal (STG) Patient will be able to reach use right UE to do her hair, and be able to pull pants up on right without increase in pain 12/30/22: goal progress STG Duration 12/12/21 Care Home Goal (LTG) Patient will demonstrate full ROM with right shoulder to allow her to do all usual activities LTG Duration 01/27/23 One Impairment pain right shoulder as high as 8/10 Short Term Goal (STG) decrease pain to no greater than 6/10 with usual activities 12/30/22: pain decreased to 5/10 STG Duration 12/12/21 Care Home Goal (LTG) decrease pain to no greater than 3/10 with all usual activities LTG Duration 01/27/23 Progress Towards Goals Progress Towards Goals Progressing Toward Goals Assessment Summary Assessment initial focus on postural alignment with use of mirror for visual feedback, lateral trunk flex stretch to right as significant posturing to left with tightness noted. Improved with verbal and visual cues. Manual resistance to scapula improves awareness and control. Patient noting some functional improvements in use of right UE Physical Therapy Plan Frequency and Duration Frequency of Treatment 2x/Week Duration of treatment (weeks) 12 Plan of Care Start Date 10/29/22 Plan of Care End Date 01/27/23 Therapeutic Interventions Therapeutic Interventions Aquatic Therapy,Home Exercise Program,Manual Therapy,Patient /Caregiver Education,Self-Care /Home Management,Soft Tissue Mobilization,Taping, Therapeutic Activities, Therapeutic Exercises Modalities Cold Pack/Ice Massage,Electric Stimulation,Hot Packs, Infrared Therapy,Iontophoresis ,Ultrasound Next Visit Focus/Plan Next Note Type Treatment Note Next Visit Plan Start with postural awareness and correction with visual feedback. Continue gentle progression of shoulder ROM and strengthening, scapular stabilization and mobilization .
--- NOTE | 2023-01-05 12:08 | PT.OTN ---
Current Diagnoses Pain in right shoulder (01/05/23) Incomplete rotator cuff tear or rupture of right shoulder, not specified as traumatic (01/05/23) Superior glenoid labrum lesion of right shoulder, initial encounter (01/05/23) Physical Therapy Treatment Note PT-OP-A Visit Information Start: 10/28/22 09:19 Freq: Status: Active Protocol: Document 01/05/23 11:15 SAK (Rec: 01/05/23 12:08 [facility] [id number]) Out-Patient Physical Therapy Visit Information Visit Information Visit Type Treatment Note Visit Start Time 11:18 Visit Stop Time 12:10 Total Visit Minutes 52 Visit Number 11 Number of OVEN DRIER TENDER Visits 0 Evaluation Information Evaluation Date 10/29/22 Precautions Precautions cardiac: [place], has done cardiac rehab lymphedema PT-OP-B Current Condition Start: 10/28/22 09:19 Freq: Status: Active Protocol: Document 11/05/22 11:17 SAK (Rec: 11/05/22 12:03 SAK [id number]) Current Condition History of Current Condition Onset Date 1 1/2 years Current Complaints right History of Current Condition gradual onset right shoulder pain unknown reason. Increases with trying to reach overhead, out to side, or behind her back; pain and tingling. If tries to sleep on back both arms go numb. Unable to wear compression sleeve left due to pain right shoulder; patient previously seen by this PT for right shoulder pain and felt at that time pain at least some due to overuse right UE. Goes back to the doctor after PT ( Clifford Diggs). 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 Saw search engine optimization manager. MRI right shoulder: incomplete RC tear, superior labral tear Prior Treatments and Tests Tylenol, ice, heat. Can't do UE ex at cardiac rehab, low tolerance for HEP previously instructed. Has TENS, but doesn't know how to use Treatment Goals Patient/Caregiver Goals Decrease pain, improve use of right UE. Patient is right handed. PT-OP-C Subjective Start: 10/28/22 09:19 Freq: Status: Active Protocol: Document 01/05/23 11:15 SAK (Rec: 01/05/23 12:08 SAK [id number]) OP-PT Subjective Patient Comments Patient Comments shoulder has been a little squawky, inc with reaching. Compliant to HEP, trying to pay attention to posture. PT-OP-E Functional Tests Start: 10/28/22 09:19 Freq: Status: Active Protocol: Document 10/29/22 09:50 SAK (Rec: 10/29/22 17:12 [facility] [id number]) Functional Tests Apley's Scratch Test Action 1- Left anterior shoulder Action 1- Right posterior shoulder Action 2- Left T2 Action 2- Right lateral neck Action 3- Left lateral hip Action 3- Right T7 PT-OP-H Neuro Start: 10/28/22 09:19 Freq: Status: Active Protocol: Document 10/29/22 09:50 SAK (Rec: 10/29/22 17:12 [facility] [id number]) Sensation Evaluation Gross Sensation Gross Sensation Left UE Impaired,Right UE Impaired Sensation Description Paresthesia Location Details Left Arm Light Touch Intact/Normal PT-OP-J Posture/Palpation/Skin Start: 10/28/22 09:19 Freq: Status: Active Protocol: Document 10/29/22 09:50 SAK (Rec: 10/29/22 17:12 [facility] [id number]) Posture Evaluation Position Sitting Head/C-Spine Posture Forward Head T-Spine Posture Increased Kyphosis L-Spine Posture Increased Lordosis Shoulder Posture (L) Rounded,(R) Rounded Scapula Posture (L) Protracted,(R) Protracted Arm Posture (L) Internally Rotated,(R) Internally Rotated Pelvis Posture Anteriorly Tilted Palpation Assessment Location RC insertion Palpation Findings Tenderness Palpation Details entire joint line painful to palpation PT-OP-K Range of Motion Start: 10/28/22 09:19 Freq: Status: Active Protocol: Document 10/29/22 09:50 SAK (Rec: 10/29/22 17:12 [facility] [id number]) Cervical Spine Range of Motion Cervical Spine Active Testing Position Sitting Flexion 50 Extension 10 Rotation Left 55 Rotation Right 55 Lateral Flexion Left 30 Lateral Flexion Right 30 Shoulder Goniometric Range of Motion Shoulder Left Shoulder ROM WFL No Testing Position Sitting Flexion 85 Extension 10 Abduction 75 External Rotation at 0 degrees Abduction 45 Right Shoulder ROM WFL Yes Comments mild limitations due to lymphedema PT-OP-L Special Tests Start: 10/28/22 09:19 Freq: Status: Active Protocol: Document 10/29/22 09:50 SAK (Rec: 10/29/22 17:12 [facility] [id number]) Special Tests Shoulder Special Tests Lift-Off Rotator Cuff Test Results positive Elevation Impingement Test Results positive Drop Arm Rotator Cuff Test Results positve PT-OP-M Strength Start: 10/28/22 09:19 Freq: Status: Active Protocol: Document 10/29/22 09:50 [facility] (Rec: 10/29/22 17:12 [facility] [id number]) Shoulder Strength Shoulder Manual Muscle Testing Left Flexion 4- Good- Extension 4- Good- Adduction 4 Good External Rotation 4- Good- Internal Rotation 4 Good PT-OP-Q Treatments Start: 10/28/22 09:19 Freq: Status: Active Protocol: Document 01/05/23 11:15 [facility] (Rec: 01/05/23 12:08 [facility] [id number]) Therapeutic Exercises Supine Exercises hor ab Resistance L1 TB Reps/Minutes 10x Comments cues for scapular retraction rhythmic stab isometrics Supine Exercise Name ER/IR, ab/ad, bic/tric Reps/Minutes 4 min serratus pres Side bilateral Equipment Used dowel Reps/Minutes 10x Comments small range, tolerant reps, least painful FF Supine Exercise Name 90-end range comfortale Side right Resistance L1 TB Reps/Minutes x10 reps Comments cued slow pacing tolerant least amt pain ROM Sitting Exercises scapular squeeze Sitting Exercise Name clocks: 9, 8,7 Resistance MR Equipment Used mirror Reps/Minutes 10x Comments vc and visual cues to prevent UT activation Standing Exercises railing slide Equipment Used stair rail, pillow case Reps/Minutes 15x bicep curl Resistance 2# Reps/Minutes 15x tricep ext Reps/Minutes 15x shoulder ext facing away Standing Exercise Name sitting Resistance L1 TB Equipment Used chair Reps/Minutes 15x should add Reps/Minutes 15x shld ext Resistance Tb #1 Reps/Minutes 2x10 Comments cued scap retraction/scap set con/ecc, TA neutral pelvis no LB recruitment R shld IR, ER Side right Resistance TB #1 Equipment Used mirror use level scap set retracted Reps/Minutes 2x10 each Comments cued scap retraction, con/ecc, humeral rot only Manual Therapy Treatment Soft Tissue Mobilization RC insertion Body Location distal RTC, Mobilization Type Cross-Friction Intensity/Depth Moderate Body Position Hooklying Joint Mobilizations R GH jt Direction inferior, posterior Grade II Body Position Hooklying Reps/Duration 5 min Comments manual painfree scapulothoracic Joint R shld Direction elevation/depression, protraction/retraction Grade III Body Position Sidelying Reps/Duration 4min Comments PROM, AAROM for body awareness Manual Techniques PROM R shld Type Humeral inferior glide w/ FF and ER Body Location R shld Body Position Hooklying Reps/Duration x5 reps each Self-Care/Home Management Treatment Education Patient Education Body Mechanics,Pain Management ,Posture PT-OP-R Modalities Start: 10/28/22 09:19 Freq: Status: Active Protocol: Document 01/05/23 11:15 [facility] (Rec: 01/05/23 12:08 [facility] [id number]) Hot Pack/Cold Pack Treatment Cold Pack Location right shoulder Patient Position Hooklying Treatment Duration (minutes) 10 Patient Tolerance Good PT-OP-T Assessment and Plan Start: 10/28/22 09:19 Freq: Status: Active Protocol: Document 01/05/23 11:15 [facility] (Rec: 01/05/23 12:08 [facility] [id number]) Physical Therapy Assessment Goals Three Impairment activity tolerance Impairment Quickdash UE disability index score60% Tree Trimming Supervisor Goal (LTG) Improve QuickDash score to no greater than 30% as measure of improved activity tolerance with right UE 12/30/22: decreased to 39% Two Impairment unable to reach overhead or behind her back with right shoulder Short Term Goal (STG) Patient will be able to reach use right UE to do her hair, and be able to pull pants up on right without increase in pain 12/30/22: goal progress STG Duration 12/12/21 Shelter Goal (LTG) Patient will demonstrate full ROM with right shoulder to allow her to do all usual activities LTG Duration 01/27/23 One Impairment pain right shoulder as high as 8/10 Short Term Goal (STG) decrease pain to no greater than 6/10 with usual activities 12/30/22: pain decreased to 5/10 STG Duration 12/12/21 Shelter Goal (LTG) decrease pain to no greater than 3/10 with all usual activities LTG Duration 01/27/23 Assessment Summary Assessment Improved scapular awareness and control with cont manual and visual cues. Progressed to shoulder add, and seated shld ext with TB pulling back up into flex with good teetee. Would benefit from further PT. Physical Therapy Plan Frequency and Duration Frequency of Treatment 2x/Week Duration of treatment (weeks) 12 Plan of Care Start Date 10/29/22 Plan of Care End Date 01/27/23 Therapeutic Interventions Therapeutic Interventions Aquatic Therapy,Home Exercise Program,Manual Therapy,Patient /Caregiver Education,Self-Care /Home Management,Soft Tissue Mobilization,Taping, Therapeutic Activities, Therapeutic Exercises Modalities Cold Pack/Ice Massage,Electric Stimulation,Hot Packs, Infrared Therapy,Iontophoresis ,Ultrasound Next Visit Focus/Plan Next Note Type Treatment Note Next Visit Plan Start with postural awareness and correction with visual feedback. Continue gentle progression of shoulder ROM and strengthening, scapular stabilization and mobilization .
--- NOTE | 2023-01-07 15:05 | PT.OTN ---
Current Diagnoses Pain in right shoulder (01/07/23) Incomplete rotator cuff tear or rupture of right shoulder, not specified as traumatic (01/07/23) Superior glenoid labrum lesion of right shoulder, initial encounter (01/07/23) Physical Therapy Treatment Note PT-OP-A Visit Information Start: 10/28/22 09:19 Freq: Status: Active Protocol: Document 01/07/23 11:24 SAK (Rec: 01/07/23 12:14 [facility] [id number]) Out-Patient Physical Therapy Visit Information Visit Information Visit Type Treatment Note Visit Start Time 11:25 Visit Stop Time 12:10 Total Visit Minutes 45 Visit Number 12 Number of OVEREDGE SEWER Visits 0 PT-OP-B Current Condition Start: 10/28/22 09:19 Freq: Status: Active Protocol: Document 11/05/22 11:17 SAK (Rec: 11/05/22 12:03 [facility] [id number]) Current Condition History of Current Condition Onset Date 1 1/2 years Current Complaints right History of Current Condition gradual onset right shoulder pain unknown reason. Increases with trying to reach overhead, out to side, or behind her back; pain and tingling. If tries to sleep on back both arms go numb. Unable to wear compression sleeve left due to pain right shoulder; patient previously seen by this PT for right shoulder pain and felt at that time pain at least some due to overuse right UE. Goes back to the doctor after PT ( Clifford Diggs). 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 Saw melter clerk. MRI right shoulder: incomplete RC tear, superior labral tear Prior Treatments and Tests Tylenol, ice, heat. Can't do UE ex at cardiac rehab, low tolerance for HEP previously instructed. Has TENS, but doesn't know how to use Treatment Goals Patient/Caregiver Goals Decrease pain, improve use of right UE. Patient is right handed. PT-OP-C Subjective Start: 10/28/22 09:19 Freq: Status: Active Protocol: Document 01/07/23 11:24 SAK (Rec: 01/07/23 12:14 [facility] [id number]) OP-PT Subjective Patient Comments Patient Comments Exercises going ok, thought was improving but having a harder week this week. Not sure why. PT-OP-E Functional Tests Start: 10/28/22 09:19 Freq: Status: Active Protocol: Document 10/29/22 09:50 SAK (Rec: 10/29/22 17:12 [facility] [id number]) Functional Tests Apley's Scratch Test Action 1- Left anterior shoulder Action 1- Right posterior shoulder Action 2- Left T2 Action 2- Right lateral neck Action 3- Left lateral hip Action 3- Right T7 PT-OP-H Neuro Start: 10/28/22 09:19 Freq: Status: Active Protocol: Document 10/29/22 09:50 [facility] (Rec: 10/29/22 17:12 [facility] [id number]) Sensation Evaluation Gross Sensation Gross Sensation Left UE Impaired,Right UE Impaired Sensation Description Paresthesia Location Details Left Arm Light Touch Intact/Normal PT-OP-J Posture/Palpation/Skin Start: 10/28/22 09:19 Freq: Status: Active Protocol: Document 10/29/22 09:50 [facility] (Rec: 10/29/22 17:12 [facility] [id number]) Posture Evaluation Position Sitting Head/C-Spine Posture Forward Head T-Spine Posture Increased Kyphosis L-Spine Posture Increased Lordosis Shoulder Posture (L) Rounded,(R) Rounded Scapula Posture (L) Protracted,(R) Protracted Arm Posture (L) Internally Rotated,(R) Internally Rotated Pelvis Posture Anteriorly Tilted Palpation Assessment Location RC insertion Palpation Findings Tenderness Palpation Details entire joint line painful to palpation PT-OP-K Range of Motion Start: 10/28/22 09:19 Freq: Status: Active Protocol: Document 10/29/22 09:50 [facility] (Rec: 10/29/22 17:12 [facility] [id number]) Cervical Spine Range of Motion Cervical Spine Active Testing Position Sitting Flexion 50 Extension 10 Rotation Left 55 Rotation Right 55 Lateral Flexion Left 30 Lateral Flexion Right 30 Shoulder Goniometric Range of Motion Shoulder Left Shoulder ROM WFL No Testing Position Sitting Flexion 85 Extension 10 Abduction 75 External Rotation at 0 degrees Abduction 45 Right Shoulder ROM WFL Yes Comments mild limitations due to lymphedema PT-OP-L Special Tests Start: 10/28/22 09:19 Freq: Status: Active Protocol: Document 10/29/22 09:50 [facility] (Rec: 10/29/22 17:12 [facility] [id number]) Special Tests Shoulder Special Tests Lift-Off Rotator Cuff Test Results positive Elevation Impingement Test Results positive Drop Arm Rotator Cuff Test Results positve PT-OP-M Strength Start: 10/28/22 09:19 Freq: Status: Active Protocol: Document 10/29/22 09:50 [facility] (Rec: 10/29/22 17:12 [facility] [id number]) Shoulder Strength Shoulder Manual Muscle Testing Left Flexion 4- Good- Extension 4- Good- Adduction 4 Good External Rotation 4- Good- Internal Rotation 4 Good PT-OP-Q Treatments Start: 10/28/22 09:19 Freq: Status: Active Protocol: Document 01/07/23 11:24 [facility] (Rec: 01/07/23 12:14 [facility] [id number]) Therapeutic Exercises Supine Exercises shld ER Supine Exercise Name AAROM Reps/Minutes 10x serratus pres Side bilateral Equipment Used dowel Reps/Minutes 10x Comments small range, tolerant reps, least painful FF Supine Exercise Name 90-end range comfortale Side right Resistance L1 TB Reps/Minutes x10 reps Comments cued slow pacing tolerant least amt pain ROM Sitting Exercises scapular squeeze Sitting Exercise Name clocks: 9, 8,7 Resistance MR Equipment Used mirror Reps/Minutes 10x Comments vc and visual cues to prevent UT activation Standing Exercises Isometric shoulder Standing Exercise Name flex,ext,add,ab,IR,ER Comments verbal instruction, issued HO. Patient has done in past railing slide Equipment Used stair rail, pillow case Reps/Minutes 15x bicep curl Resistance 2# Reps/Minutes 15x tricep ext Reps/Minutes 15x shoulder ext facing away Standing Exercise Name sitting Resistance L1 TB Equipment Used chair Reps/Minutes 15x should add Resistance L1 TB Reps/Minutes 15x shld ext Resistance Tb #1 Reps/Minutes 2x10 Comments cued scap retraction/scap set con/ecc, TA neutral pelvis no LB recruitment R shld IR, ER Side right Resistance TB #1 Equipment Used mirror use level scap set retracted Reps/Minutes 2x10 each Comments cued scap retraction, con/ecc, humeral rot only Manual Therapy Treatment Soft Tissue Mobilization biceps Mobilization Type Myofascial Release,Strumming, Sustained Pressure Intensity/Depth Moderate Body Position Hooklying RC insertion Body Location distal RTC, Mobilization Type Cross-Friction Intensity/Depth Moderate Body Position Hooklying Joint Mobilizations R GH jt Direction inferior, posterior Grade II Body Position Hooklying Reps/Duration 5 min Comments manual painfree scapulothoracic Joint R shld Direction elevation/depression, protraction/retraction Grade III Body Position Sidelying Reps/Duration 4min Comments PROM, AAROM for body awareness Taping right shoulder Treatment Focus support, facil scapular stab Type of Tape kinesiotape Skin Inspection intact Comments I strip T10 to ant shoulder with 50-75% stretch 2 I strips from deltoid insertion ant and post surrounding deltoid 50-75% stretch Manual Techniques PROM R shld Type Humeral inferior glide w/ FF and ER Body Location R shld Body Position Hooklying Reps/Duration x5 reps each Self-Care/Home Management Treatment Education Patient Education Body Mechanics,Pain Management ,Posture PT-OP-R Modalities Start: 10/28/22 09:19 Freq: Status: Active Protocol: Document 01/05/23 11:15 SAK (Rec: 01/05/23 12:08 [facility] [id number]) Hot Pack/Cold Pack Treatment Cold Pack Location right shoulder Patient Position Hooklying Treatment Duration (minutes) 10 Patient Tolerance Good PT-OP-T Assessment and Plan Start: 10/28/22 09:19 Freq: Status: Active Protocol: Document 01/07/23 11:24 SAK (Rec: 01/07/23 12:14 [facility] [id number]) Physical Therapy Assessment Goals Three Impairment activity tolerance Impairment Quickdash UE disability index score60% Monomer Recovery Operator Goal (LTG) Improve QuickDash score to no greater than 30% as measure of improved activity tolerance with right UE 12/30/22: decreased to 39% Two Impairment unable to reach overhead or behind her back with right shoulder Short Term Goal (STG) Patient will be able to reach use right UE to do her hair, and be able to pull pants up on right without increase in pain 12/30/22: goal progress STG Duration 12/12/21 Monomer Recovery Operator Goal (LTG) Patient will demonstrate full ROM with right shoulder to allow her to do all usual activities LTG Duration 01/27/23 One Impairment pain right shoulder as high as 8/10 Short Term Goal (STG) decrease pain to no greater than 6/10 with usual activities 12/30/22: pain decreased to 5/10 STG Duration 12/12/21 Monomer Recovery Operator Goal (LTG) decrease pain to no greater than 3/10 with all usual activities LTG Duration 01/27/23 Assessment Summary Assessment Patient having more pain this week, cause uncertain. Given shoulder isometric as option for gentle muscle activation without movement; verbalized good understanding, will need to review next session. Trial kinesiotape to right shoulder Physical Therapy Plan Frequency and Duration Frequency of Treatment 2x/Week Duration of treatment (weeks) 12 Plan of Care Start Date 10/29/22 Plan of Care End Date 01/27/23 Therapeutic Interventions Therapeutic Interventions Aquatic Therapy,Home Exercise Program,Manual Therapy,Patient /Caregiver Education,Self-Care /Home Management,Soft Tissue Mobilization,Taping, Therapeutic Activities, Therapeutic Exercises Modalities Cold Pack/Ice Massage,Electric Stimulation,Hot Packs, Infrared Therapy,Iontophoresis ,Ultrasound Next Visit Focus/Plan Next Note Type Treatment Note Next Visit Plan evaluate response to kinesiotape, isometrics. Consider cold laser treatment.
--- NOTE | 2023-01-11 10:33 | PT.OTN ---
Current Diagnoses Pain in right shoulder (01/11/23) Incomplete rotator cuff tear or rupture of right shoulder, not specified as traumatic (01/11/23) Superior glenoid labrum lesion of right shoulder, initial encounter (01/11/23) Physical Therapy Treatment Note PT-OP-A Visit Information Start: 10/28/22 09:19 Freq: Status: Active Protocol: Document 01/11/23 09:50 SP (Rec: 01/11/23 10:34 SP [id number]) Out-Patient Physical Therapy Visit Information Visit Information Visit Type Treatment Note Visit Start Time 09:50 Visit Stop Time 10:33 Total Visit Minutes 43 Visit Number 13 Number of COST ESTIMATOR Visits 1 Evaluation Information Evaluation Date 10/29/22 Precautions Precautions cardiac: [place], has done cardiac rehab lymphedema PT-OP-B Current Condition Start: 10/28/22 09:19 Freq: Status: Active Protocol: Document 11/05/22 11:17 SAK (Rec: 11/05/22 12:03 SAK [id number]) Current Condition History of Current Condition Onset Date 1 1/2 years Current Complaints right History of Current Condition gradual onset right shoulder pain unknown reason. Increases with trying to reach overhead, out to side, or behind her back; pain and tingling. If tries to sleep on back both arms go numb. Unable to wear compression sleeve left due to pain right shoulder; patient previously seen by this PT for right shoulder pain and felt at that time pain at least some due to overuse right UE. Goes back to the doctor after PT ( Clifford Diggs). 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 Saw glueline worker. MRI right shoulder: incomplete RC tear, superior labral tear Prior Treatments and Tests Tylenol, ice, heat. Can't do UE ex at cardiac rehab, low tolerance for HEP previously instructed. Has TENS, but doesn't know how to use Treatment Goals Patient/Caregiver Goals Decrease pain, improve use of right UE. Patient is right handed. PT-OP-C Subjective Start: 10/28/22 09:19 Freq: Status: Active Protocol: Document 01/11/23 09:50 SP (Rec: 01/11/23 10:34 SP [id number]) OP-PT Subjective Patient Comments Patient Comments Pt reports R shld feeling little better since incorporating HEP. She stated the K taping helps alot but removed and noticed abrasions and was hoping to retape Wed but not sure will be healed and next appt not for 2 weeks so would be without and like benefits, is on waiting list. PT-OP-E Functional Tests Start: 10/28/22 09:19 Freq: Status: Active Protocol: Document 10/29/22 09:50 SAK (Rec: 10/29/22 17:12 [facility] [id number]) Functional Tests Apley's Scratch Test Action 1- Left anterior shoulder Action 1- Right posterior shoulder Action 2- Left T2 Action 2- Right lateral neck Action 3- Left lateral hip Action 3- Right T7 PT-OP-H Neuro Start: 10/28/22 09:19 Freq: Status: Active Protocol: Document 10/29/22 09:50 SAK (Rec: 10/29/22 17:12 [facility] [id number]) Sensation Evaluation Gross Sensation Gross Sensation Left UE Impaired,Right UE Impaired Sensation Description Paresthesia Location Details Left Arm Light Touch Intact/Normal PT-OP-J Posture/Palpation/Skin Start: 10/28/22 09:19 Freq: Status: Active Protocol: Document 10/29/22 09:50 SAK (Rec: 10/29/22 17:12 [facility] [id number]) Posture Evaluation Position Sitting Head/C-Spine Posture Forward Head T-Spine Posture Increased Kyphosis L-Spine Posture Increased Lordosis Shoulder Posture (L) Rounded,(R) Rounded Scapula Posture (L) Protracted,(R) Protracted Arm Posture (L) Internally Rotated,(R) Internally Rotated Pelvis Posture Anteriorly Tilted Palpation Assessment Location RC insertion Palpation Findings Tenderness Palpation Details entire joint line painful to palpation PT-OP-K Range of Motion Start: 10/28/22 09:19 Freq: Status: Active Protocol: Document 10/29/22 09:50 SAK (Rec: 10/29/22 17:12 [facility] [id number]) Cervical Spine Range of Motion Cervical Spine Active Testing Position Sitting Flexion 50 Extension 10 Rotation Left 55 Rotation Right 55 Lateral Flexion Left 30 Lateral Flexion Right 30 Shoulder Goniometric Range of Motion Shoulder Left Shoulder ROM WFL No Testing Position Sitting Flexion 85 Extension 10 Abduction 75 External Rotation at 0 degrees Abduction 45 Right Shoulder ROM WFL Yes Comments mild limitations due to lymphedema PT-OP-L Special Tests Start: 10/28/22 09:19 Freq: Status: Active Protocol: Document 10/29/22 09:50 SAK (Rec: 10/29/22 17:12 SAK [id number]) Special Tests Shoulder Special Tests Lift-Off Rotator Cuff Test Results positive Elevation Impingement Test Results positive Drop Arm Rotator Cuff Test Results positve PT-OP-M Strength Start: 10/28/22 09:19 Freq: Status: Active Protocol: Document 10/29/22 09:50 SAK (Rec: 10/29/22 17:12 SAK [id number]) Shoulder Strength Shoulder Manual Muscle Testing Left Flexion 4- Good- Extension 4- Good- Adduction 4 Good External Rotation 4- Good- Internal Rotation 4 Good PT-OP-Q Treatments Start: 10/28/22 09:19 Freq: Status: Active Protocol: Document 01/11/23 09:50 SP (Rec: 01/11/23 10:34 SP [id number]) Therapeutic Exercises Supine Exercises hor ab Supine Exercise Name reviewed and added to HEP Resistance L1 TB Reps/Minutes 10x Comments cues for scapular retraction, elbows extended serratus pres Side bilateral Equipment Used dowel Reps/Minutes 10x Comments small range, tolerant reps, least painful FF Supine Exercise Name 90-end range comfortale Side right Resistance L1 TB Equipment Used together and individual Reps/Minutes x10 reps Comments cued slow pacing tolerant least amt pain ROM Sidelying Exercises abd Sidelying Exercise Name initiated in PT Side right Resistance AROM- approx 80d eg Reps/Minutes x5 reps Comments cued slow concentric inf glide , good slow eccentric painfree shld ER Sidelying Exercise Name initiated in PT Side right Resistance 1# DB Equipment Used towel under arm Reps/Minutes x10 reps Comments cued small painfree range Standing Exercises Isometric shoulder Standing Exercise Name flex,ext,add,ab,IR,ER Side right Reps/Minutes 10s hold x10 Comments continued cues trunk/UE positioning set up shld ext Standing Exercise Name HEP reviewed Resistance Tb #1 Reps/Minutes 2x10 Comments cued scap retraction/scap set con/ecc, TA neutral pelvis no LB recruitment Manual Therapy Treatment Soft Tissue Mobilization biceps Body Location R Mobilization Type Myofascial Release,Strumming, Sustained Pressure Intensity/Depth Moderate Body Position Sidelying RC insertion Body Location R distal RTC, Mobilization Type Cross-Friction Intensity/Depth Moderate Body Position Sidelying PT-OP-R Modalities Start: 10/28/22 09:19 Freq: Status: Active Protocol: Document 01/05/23 11:15 SAK (Rec: 01/05/23 12:08 SAK [id number]) Hot Pack/Cold Pack Treatment Cold Pack Location right shoulder Patient Position Hooklying Treatment Duration (minutes) 10 Patient Tolerance Good PT-OP-T Assessment and Plan Start: 10/28/22 09:19 Freq: Status: Active Protocol: Document 01/11/23 09:50 SP (Rec: 01/11/23 10:34 SP [id number]) Physical Therapy Assessment Goals Three Impairment activity tolerance Impairment Quickdash UE disability index score60% Longterm Goal (LTG) Improve QuickDash score to no greater than 30% as measure of improved activity tolerance with right UE 12/30/22: decreased to 39% Two Impairment unable to reach overhead or behind her back with right shoulder Short Term Goal (STG) Patient will be able to reach use right UE to do her hair, and be able to pull pants up on right without increase in pain 12/30/22: goal progress STG Duration 12/12/21 Treating Engineer Goal (LTG) Patient will demonstrate full ROM with right shoulder to allow her to do all usual activities LTG Duration 01/27/23 One Impairment pain right shoulder as high as 8/10 Short Term Goal (STG) decrease pain to no greater than 6/10 with usual activities 12/30/22: pain decreased to 5/10 STG Duration 12/12/21 Longterm Goal (LTG) decrease pain to no greater than 3/10 with all usual activities LTG Duration 01/27/23 Assessment Summary Assessment Pt responded well to manual and initiated side shld ER and mid range ABD AROM R shld today painfree range. She continues to require cuing for set up isometrics. Next appt assess use TB R shld IR/ ER and DC isometrics. Provided TB #1 for shld ext and supine HABD. Physical Therapy Plan Frequency and Duration Frequency of Treatment 2x/Week Duration of treatment (weeks) 12 Plan of Care Start Date 10/29/22 Plan of Care End Date 01/27/23 Therapeutic Interventions Therapeutic Interventions Aquatic Therapy,Home Exercise Program,Manual Therapy,Patient /Caregiver Education,Self-Care /Home Management,Soft Tissue Mobilization,Taping, Therapeutic Activities, Therapeutic Exercises Modalities Cold Pack/Ice Massage,Electric Stimulation,Hot Packs, Infrared Therapy,Iontophoresis ,Ultrasound Next Visit Focus/Plan Next Note Type Treatment Note Next Visit Plan Update POC 01/27 appt with PT. POC: recheck R shld abrasion Does have sensitivities to Latex but unsure glue last tx of kinesiotape. Next tx initiated TB ex vs isometrics. Consider cold laser treatment.
--- NOTE | 2023-01-13 10:30 | PT.OTN ---
Current Diagnoses Pain in right shoulder (01/13/23) Incomplete rotator cuff tear or rupture of right shoulder, not specified as traumatic (01/13/23) Superior glenoid labrum lesion of right shoulder, initial encounter (01/13/23) Physical Therapy Treatment Note PT-OP-A Visit Information Start: 10/28/22 09:19 Freq: Status: Active Protocol: Document 01/13/23 09:50 SP (Rec: 01/13/23 10:31 SP [id number]) Out-Patient Physical Therapy Visit Information Visit Information Visit Type Treatment Note Visit Start Time 09:50 Visit Stop Time 10:30 Total Visit Minutes 40 Visit Number 14 Number of DRAWING IN MACHINE TENDER HELPER Visits 2 Evaluation Information Evaluation Date 10/29/22 Precautions Precautions cardiac: [place], has done cardiac rehab lymphedema Sensitivities to Latex. PT-OP-B Current Condition Start: 10/28/22 09:19 Freq: Status: Active Protocol: Document 11/05/22 11:17 SAK (Rec: 11/05/22 12:03 SAK [id number]) Current Condition History of Current Condition Onset Date 1 1/2 years Current Complaints right History of Current Condition gradual onset right shoulder pain unknown reason. Increases with trying to reach overhead, out to side, or behind her back; pain and tingling. If tries to sleep on back both arms go numb. Unable to wear compression sleeve left due to pain right shoulder; patient previously seen by this PT for right shoulder pain and felt at that time pain at least some due to overuse right UE. Goes back to the doctor after PT ( Clifford Diggs). 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 Saw investigation officer. MRI right shoulder: incomplete RC tear, superior labral tear Prior Treatments and Tests Tylenol, ice, heat. Can't do UE ex at cardiac rehab, low tolerance for HEP previously instructed. Has TENS, but doesn't know how to use Treatment Goals Patient/Caregiver Goals Decrease pain, improve use of right UE. Patient is right handed. PT-OP-C Subjective Start: 10/28/22 09:19 Freq: Status: Active Protocol: Document 01/13/23 09:50 SP (Rec: 01/13/23 10:31 SP [id number]) OP-PT Subjective Patient Comments Patient Comments Pt reports R shld really sore today. She stated felt pretty good after last tx so did some more things at home, moving things around cupboard and grocery shopping and may have over did it. PT-OP-E Functional Tests Start: 10/28/22 09:19 Freq: Status: Active Protocol: Document 10/29/22 09:50 [facility] (Rec: 10/29/22 17:12 [facility] [id number]) Functional Tests Apley's Scratch Test Action 1- Left anterior shoulder Action 1- Right posterior shoulder Action 2- Left T2 Action 2- Right lateral neck Action 3- Left lateral hip Action 3- Right T7 PT-OP-H Neuro Start: 10/28/22 09:19 Freq: Status: Active Protocol: Document 10/29/22 09:50 SAK (Rec: 10/29/22 17:12 [facility] [id number]) Sensation Evaluation Gross Sensation Gross Sensation Left UE Impaired,Right UE Impaired Sensation Description Paresthesia Location Details Left Arm Light Touch Intact/Normal PT-OP-J Posture/Palpation/Skin Start: 10/28/22 09:19 Freq: Status: Active Protocol: Document 10/29/22 09:50 [facility] (Rec: 10/29/22 17:12 [facility] [id number]) Posture Evaluation Position Sitting Head/C-Spine Posture Forward Head T-Spine Posture Increased Kyphosis L-Spine Posture Increased Lordosis Shoulder Posture (L) Rounded,(R) Rounded Scapula Posture (L) Protracted,(R) Protracted Arm Posture (L) Internally Rotated,(R) Internally Rotated Pelvis Posture Anteriorly Tilted Palpation Assessment Location RC insertion Palpation Findings Tenderness Palpation Details entire joint line painful to palpation PT-OP-K Range of Motion Start: 10/28/22 09:19 Freq: Status: Active Protocol: Document 10/29/22 09:50 [facility] (Rec: 10/29/22 17:12 [facility] [id number]) Cervical Spine Range of Motion Cervical Spine Active Testing Position Sitting Flexion 50 Extension 10 Rotation Left 55 Rotation Right 55 Lateral Flexion Left 30 Lateral Flexion Right 30 Shoulder Goniometric Range of Motion Shoulder Left Shoulder ROM WFL No Testing Position Sitting Flexion 85 Extension 10 Abduction 75 External Rotation at 0 degrees Abduction 45 Right Shoulder ROM WFL Yes Comments mild limitations due to lymphedema PT-OP-L Special Tests Start: 10/28/22 09:19 Freq: Status: Active Protocol: Document 10/29/22 09:50 [facility] (Rec: 10/29/22 17:12 SAK [id number]) Special Tests Shoulder Special Tests Lift-Off Rotator Cuff Test Results positive Elevation Impingement Test Results positive Drop Arm Rotator Cuff Test Results positve PT-OP-M Strength Start: 10/28/22 09:19 Freq: Status: Active Protocol: Document 10/29/22 09:50 SAK (Rec: 10/29/22 17:12 SAK [id number]) Shoulder Strength Shoulder Manual Muscle Testing Left Flexion 4- Good- Extension 4- Good- Adduction 4 Good External Rotation 4- Good- Internal Rotation 4 Good PT-OP-Q Treatments Start: 10/28/22 09:19 Freq: Status: Active Protocol: Document 01/13/23 09:50 SP (Rec: 01/13/23 10:31 SP [id number]) Therapeutic Exercises Sidelying Exercises abd Sidelying Exercise Name initiated in PT Side right Resistance AROM- approx 132d eg (little discomfort catch at 110deg) Reps/Minutes x8 reps Comments cued slow concentric inf glide , good slow eccentric painfree shld ER Sidelying Exercise Name initiated in PT Side right Resistance 1# DB Equipment Used towel under arm Reps/Minutes x10 reps Comments cued small painfree range, slow controlled con/ecc Standing Exercises bicep curl Resistance TB #1 Reps/Minutes x15 Comments cued neutral LB tricep ext Resistance Tb #1 Reps/Minutes 15x Comments cued neutral LB shld ext Standing Exercise Name HEP reviewed Resistance Tb #1 Reps/Minutes 5 reps x2 Comments cued TA/ PPT to decr LB recruitment, scap set con/ecc R shld IR, ER Standing Exercise Name R IR, ER Side right Resistance TB #1 Equipment Used not towel (better) Reps/Minutes 2x5 reps Comments cued level shld, elbow flexed and back little more Manual Therapy Treatment Soft Tissue Mobilization RC insertion Body Location R distal RTC, Mobilization Type Cross-Friction Intensity/Depth Moderate Body Position Sidelying Joint Mobilizations scapulothoracic Joint R shld Direction elevation/depression, protraction/retraction Grade III Body Position Sidelying Reps/Duration 4min Comments PROM, AAROM for body awareness Taping right shoulder Treatment Focus support, facil scapular stab Type of Tape kinesiotape Skin Inspection intact Comments V strip T10 to ant shoulder with 50-75% stretch 2 I strips from deltoid insertion ant and post surrounding deltoid 50-75% stretch PT-OP-R Modalities Start: 10/28/22 09:19 Freq: Status: Active Protocol: Document 01/05/23 11:15 SAK (Rec: 01/05/23 12:08 SAK [id number]) Hot Pack/Cold Pack Treatment Cold Pack Location right shoulder Patient Position Hooklying Treatment Duration (minutes) 10 Patient Tolerance Good PT-OP-T Assessment and Plan Start: 10/28/22 09:19 Freq: Status: Active Protocol: Document 01/13/23 09:50 SP (Rec: 01/13/23 10:31 SP [id number]) Physical Therapy Assessment Goals Three Impairment activity tolerance Impairment Quickdash UE disability index score60% Assisted Goal (LTG) Improve QuickDash score to no greater than 30% as measure of improved activity tolerance with right UE 12/30/22: decreased to 39% Two Impairment unable to reach overhead or behind her back with right shoulder Short Term Goal (STG) Patient will be able to reach use right UE to do her hair, and be able to pull pants up on right without increase in pain 12/30/22: goal progress STG Duration 12/12/21 Assisted Goal (LTG) Patient will demonstrate full ROM with right shoulder to allow her to do all usual activities LTG Duration 01/27/23 One Impairment pain right shoulder as high as 8/10 Short Term Goal (STG) decrease pain to no greater than 6/10 with usual activities 12/30/22: pain decreased to 5/10 STG Duration 12/12/21 Assisted Goal (LTG) decrease pain to no greater than 3/10 with all usual activities LTG Duration 01/27/23 Assessment Summary Assessment Pt improved response to TB R shld strengthening vs isometrics, best no towel under arm and elbow back near post trunk to decrease distal tricep irritation recruitment. Good muscle effort response to side ER and ABD cues for low pacing control. Pt requested use of K taping along deltoid proximation for sability support. Knowledgeable about removing if having adverse affects. Improved skin texture healing previous taping, not over lapped w/ todays. Pt report R shld muscles feel tired. Physical Therapy Plan Frequency and Duration Frequency of Treatment 2x/Week Duration of treatment (weeks) 12 Plan of Care Start Date 10/29/22 Plan of Care End Date 01/27/23 Therapeutic Interventions Therapeutic Interventions Aquatic Therapy,Home Exercise Program,Manual Therapy,Patient /Caregiver Education,Self-Care /Home Management,Soft Tissue Mobilization,Taping, Therapeutic Activities, Therapeutic Exercises Modalities Cold Pack/Ice Massage,Electric Stimulation,Hot Packs, Infrared Therapy,Iontophoresis ,Ultrasound Next Visit Focus/Plan Next Note Type Treatment Note Next Visit Plan Update POC 01/27 appt with PT. POC: recheck R shld pos scap abrasion and retaped 01/13 different V w/ deltoid. Does have sensitivities to Latex. recheck response to reviewed RTC strengthening to TB. Consider cold laser treatment.
--- NOTE | 2023-01-19 10:31 | PT.OTN ---
Current Diagnoses Pain in right shoulder (01/19/23) Incomplete rotator cuff tear or rupture of right shoulder, not specified as traumatic (01/19/23) Superior glenoid labrum lesion of right shoulder, initial encounter (01/19/23) Physical Therapy Treatment Note PT-OP-A Visit Information Start: 10/28/22 09:19 Freq: Status: Active Protocol: Document 01/19/23 09:47 SAK (Rec: 01/19/23 10:31 [facility] [id number]) Out-Patient Physical Therapy Visit Information Visit Information Visit Type Treatment Note Visit Start Time 09:50 Visit Stop Time 10:30 Total Visit Minutes 40 Visit Number 15 Number of DIRECTOR OF LEARNING Visits 0 Evaluation Information Evaluation Date 10/29/22 Precautions Precautions cardiac: [place], has done cardiac rehab lymphedema Sensitivities to Latex. PT-OP-B Current Condition Start: 10/28/22 09:19 Freq: Status: Active Protocol: Document 11/05/22 11:17 SAK (Rec: 11/05/22 12:03 [facility] [id number]) Current Condition History of Current Condition Onset Date 1 1/2 years Current Complaints right History of Current Condition gradual onset right shoulder pain unknown reason. Increases with trying to reach overhead, out to side, or behind her back; pain and tingling. If tries to sleep on back both arms go numb. Unable to wear compression sleeve left due to pain right shoulder; patient previously seen by this PT for right shoulder pain and felt at that time pain at least some due to overuse right UE. Goes back to the doctor after PT ( Clifford Diggs). 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 Saw retail advertising sales manager. MRI right shoulder: incomplete RC tear, superior labral tear Prior Treatments and Tests Tylenol, ice, heat. Can't do UE ex at cardiac rehab, low tolerance for HEP previously instructed. Has TENS, but doesn't know how to use Treatment Goals Patient/Caregiver Goals Decrease pain, improve use of right UE. Patient is right handed. PT-OP-C Subjective Start: 10/28/22 09:19 Freq: Status: Active Protocol: Document 01/19/23 09:47 SAK (Rec: 01/19/23 10:31 [facility] [id number]) OP-PT Subjective Patient Comments Patient Comments c/o headache, started on way to PT PT-OP-E Functional Tests Start: 10/28/22 09:19 Freq: Status: Active Protocol: Document 10/29/22 09:50 SAK (Rec: 10/29/22 17:12 [facility] [id number]) Functional Tests Apley's Scratch Test Action 1- Left anterior shoulder Action 1- Right posterior shoulder Action 2- Left T2 Action 2- Right lateral neck Action 3- Left lateral hip Action 3- Right T7 PT-OP-H Neuro Start: 10/28/22 09:19 Freq: Status: Active Protocol: Document 10/29/22 09:50 SAK (Rec: 10/29/22 17:12 [facility] [id number]) Sensation Evaluation Gross Sensation Gross Sensation Left UE Impaired,Right UE Impaired Sensation Description Paresthesia Location Details Left Arm Light Touch Intact/Normal PT-OP-J Posture/Palpation/Skin Start: 10/28/22 09:19 Freq: Status: Active Protocol: Document 10/29/22 09:50 SAK (Rec: 10/29/22 17:12 [facility] [id number]) Posture Evaluation Position Sitting Head/C-Spine Posture Forward Head T-Spine Posture Increased Kyphosis L-Spine Posture Increased Lordosis Shoulder Posture (L) Rounded,(R) Rounded Scapula Posture (L) Protracted,(R) Protracted Arm Posture (L) Internally Rotated,(R) Internally Rotated Pelvis Posture Anteriorly Tilted Palpation Assessment Location RC insertion Palpation Findings Tenderness Palpation Details entire joint line painful to palpation PT-OP-K Range of Motion Start: 10/28/22 09:19 Freq: Status: Active Protocol: Document 10/29/22 09:50 [facility] (Rec: 10/29/22 17:12 [facility] [id number]) Cervical Spine Range of Motion Cervical Spine Active Testing Position Sitting Flexion 50 Extension 10 Rotation Left 55 Rotation Right 55 Lateral Flexion Left 30 Lateral Flexion Right 30 Shoulder Goniometric Range of Motion Shoulder Left Shoulder ROM WFL No Testing Position Sitting Flexion 85 Extension 10 Abduction 75 External Rotation at 0 degrees Abduction 45 Right Shoulder ROM WFL Yes Comments mild limitations due to lymphedema PT-OP-L Special Tests Start: 10/28/22 09:19 Freq: Status: Active Protocol: Document 10/29/22 09:50 SAK (Rec: 10/29/22 17:12 [facility] [id number]) Special Tests Shoulder Special Tests Lift-Off Rotator Cuff Test Results positive Elevation Impingement Test Results positive Drop Arm Rotator Cuff Test Results positve PT-OP-M Strength Start: 10/28/22 09:19 Freq: Status: Active Protocol: Document 10/29/22 09:50 SAK (Rec: 10/29/22 17:12 [facility] [id number]) Shoulder Strength Shoulder Manual Muscle Testing Left Flexion 4- Good- Extension 4- Good- Adduction 4 Good External Rotation 4- Good- Internal Rotation 4 Good PT-OP-Q Treatments Start: 10/28/22 09:19 Freq: Status: Active Protocol: Document 01/19/23 09:47 [facility] (Rec: 01/19/23 10:31 [facility] [id number]) Therapeutic Exercises Standing Exercises shld ext Standing Exercise Name HEP reviewed Resistance Tb #1 Reps/Minutes 5 reps x2 Comments cued TA/ PPT to decr LB recruitment, scap set con/ecc R shld IR, ER Standing Exercise Name R IR, ER Side right Resistance TB #1 Equipment Used not towel (better) Reps/Minutes 2x5 reps Comments cued level shld, elbow flexed and back little more Manual Therapy Treatment Joint Mobilizations scapulothoracic Joint R shld Direction elevation/depression, protraction/retraction Grade III Body Position Sidelying Reps/Duration 4min Comments PROM, AAROM for body awareness PT-OP-R Modalities Start: 10/28/22 09:19 Freq: Status: Active Protocol: Document 01/05/23 11:15 [facility] (Rec: 01/05/23 12:08 [facility] [id number]) Hot Pack/Cold Pack Treatment Cold Pack Location right shoulder Patient Position Hooklying Treatment Duration (minutes) 10 Patient Tolerance Good PT-OP-T Assessment and Plan Start: 10/28/22 09:19 Freq: Status: Active Protocol: Document 01/19/23 09:47 [facility] (Rec: 01/19/23 10:31 [facility] [id number]) Physical Therapy Assessment Goals Three Impairment activity tolerance Impairment Quickdash UE disability index score60% Fpc Goal (LTG) Improve QuickDash score to no greater than 30% as measure of improved activity tolerance with right UE 12/30/22: decreased to 39% Two Impairment unable to reach overhead or behind her back with right shoulder Short Term Goal (STG) Patient will be able to reach use right UE to do her hair, and be able to pull pants up on right without increase in pain 12/30/22: goal progress STG Duration 12/12/21 Fpc Goal (LTG) Patient will demonstrate full ROM with right shoulder to allow her to do all usual activities LTG Duration 01/27/23 One Impairment pain right shoulder as high as 8/10 Short Term Goal (STG) decrease pain to no greater than 6/10 with usual activities 12/30/22: pain decreased to 5/10 STG Duration 12/12/21 Fpc Goal (LTG) decrease pain to no greater than 3/10 with all usual activities LTG Duration 01/27/23 Assessment Summary Assessment Patient with dec exercise tolerance due to migraine, more difficulty focusing on scapular muscle activation and stab. Benefits from kinesiotape, issued kinesiotape piece for trial at home with assist of daughter. Physical Therapy Plan Frequency and Duration Frequency of Treatment 2x/Week Duration of treatment (weeks) 12 Plan of Care Start Date 10/29/22 Plan of Care End Date 01/27/23 Therapeutic Interventions Therapeutic Interventions Aquatic Therapy,Home Exercise Program,Manual Therapy,Patient /Caregiver Education,Self-Care /Home Management,Soft Tissue Mobilization,Taping, Therapeutic Activities, Therapeutic Exercises Modalities Cold Pack/Ice Massage,Electric Stimulation,Hot Packs, Infrared Therapy,Iontophoresis ,Ultrasound Next Visit Focus/Plan Next Note Type Treatment Note Next Visit Plan Consider cold laser treatment. Continue gentle progression of shoulder ROM, strengthening , scapular stabilization. Patient education regarding kinesiotape at home.
--- NOTE | 2023-02-01 09:45 | PT.OTN ---
Current Diagnoses Pain in right shoulder (02/01/23) Incomplete rotator cuff tear or rupture of right shoulder, not specified as traumatic (02/01/23) Superior glenoid labrum lesion of right shoulder, initial encounter (02/01/23) Physical Therapy Treatment Note PT-OP-A Visit Information Start: 10/28/22 09:19 Freq: Status: Active Protocol: Document 02/01/23 09:06 SP (Rec: 02/01/23 09:49 SP [id number]) Out-Patient Physical Therapy Visit Information Visit Information Visit Type Treatment Note Visit Start Time 09:06 Visit Stop Time 09:45 Total Visit Minutes 39 Visit Number 16 Number of CURING ROOM WORKER Visits 1 Evaluation Information Evaluation Date 10/29/22 Precautions Precautions cardiac: [place], has done cardiac rehab lymphedema Sensitivities to Latex. PT-OP-B Current Condition Start: 10/28/22 09:19 Freq: Status: Active Protocol: Document 11/05/22 11:17 SAK (Rec: 11/05/22 12:03 SAK [id number]) Current Condition History of Current Condition Onset Date 1 1/2 years Current Complaints right History of Current Condition gradual onset right shoulder pain unknown reason. Increases with trying to reach overhead, out to side, or behind her back; pain and tingling. If tries to sleep on back both arms go numb. Unable to wear compression sleeve left due to pain right shoulder; patient previously seen by this PT for right shoulder pain and felt at that time pain at least some due to overuse right UE. Goes back to the doctor after PT ( Clifford Diggs). 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 Saw flight crew time clerk. MRI right shoulder: incomplete RC tear, superior labral tear Prior Treatments and Tests Tylenol, ice, heat. Can't do UE ex at cardiac rehab, low tolerance for HEP previously instructed. Has TENS, but doesn't know how to use Treatment Goals Patient/Caregiver Goals Decrease pain, improve use of right UE. Patient is right handed. PT-OP-C Subjective Start: 10/28/22 09:19 Freq: Status: Active Protocol: Document 02/01/23 09:06 SP (Rec: 02/01/23 09:49 SP [id number]) OP-PT Subjective Patient Comments Patient Comments Pt reports has had some eye visual concerns making challenging getting around, being followed by [facility] recently so didn't get to HEP. Today blood sugars 4-5 am 142, 110 when woke up but 67 right now and had breakfast. She reports in the am ok getting shirt on reaching but by end day gets pretty sore and has to baby it . SHe has a bump on B forearm and having ultrasounded later today to see if why getting tingling into 4-5 fingers. Pt stated her daughter isn't there all the time lately and so hasn't been ableto reapply the ktaping as had planned, wants CURING ROOM WORKER to reapply today. PT-OP-E Functional Tests Start: 10/28/22 09:19 Freq: Status: Active Protocol: Document 10/29/22 09:50 SAK (Rec: 10/29/22 17:12 [facility] [id number]) Functional Tests Apley's Scratch Test Action 1- Left anterior shoulder Action 1- Right posterior shoulder Action 2- Left T2 Action 2- Right lateral neck Action 3- Left lateral hip Action 3- Right T7 PT-OP-H Neuro Start: 10/28/22 09:19 Freq: Status: Active Protocol: Document 10/29/22 09:50 SAK (Rec: 10/29/22 17:12 [facility] [id number]) Sensation Evaluation Gross Sensation Gross Sensation Left UE Impaired,Right UE Impaired Sensation Description Paresthesia Location Details Left Arm Light Touch Intact/Normal PT-OP-J Posture/Palpation/Skin Start: 10/28/22 09:19 Freq: Status: Active Protocol: Document 10/29/22 09:50 SAK (Rec: 10/29/22 17:12 [facility] [id number]) Posture Evaluation Position Sitting Head/C-Spine Posture Forward Head T-Spine Posture Increased Kyphosis L-Spine Posture Increased Lordosis Shoulder Posture (L) Rounded,(R) Rounded Scapula Posture (L) Protracted,(R) Protracted Arm Posture (L) Internally Rotated,(R) Internally Rotated Pelvis Posture Anteriorly Tilted Palpation Assessment Location RC insertion Palpation Findings Tenderness Palpation Details entire joint line painful to palpation PT-OP-K Range of Motion Start: 10/28/22 09:19 Freq: Status: Active Protocol: Document 10/29/22 09:50 SAK (Rec: 10/29/22 17:12 [facility] [id number]) Cervical Spine Range of Motion Cervical Spine Active Testing Position Sitting Flexion 50 Extension 10 Rotation Left 55 Rotation Right 55 Lateral Flexion Left 30 Lateral Flexion Right 30 Shoulder Goniometric Range of Motion Shoulder Left Shoulder ROM WFL No Testing Position Sitting Flexion 85 Extension 10 Abduction 75 External Rotation at 0 degrees Abduction 45 Right Shoulder ROM WFL Yes Comments mild limitations due to lymphedema PT-OP-L Special Tests Start: 10/28/22 09:19 Freq: Status: Active Protocol: Document 10/29/22 09:50 SAK (Rec: 10/29/22 17:12 SAK [id number]) Special Tests Shoulder Special Tests Lift-Off Rotator Cuff Test Results positive Elevation Impingement Test Results positive Drop Arm Rotator Cuff Test Results positve PT-OP-M Strength Start: 10/28/22 09:19 Freq: Status: Active Protocol: Document 10/29/22 09:50 SAK (Rec: 10/29/22 17:12 SAK [id number]) Shoulder Strength Shoulder Manual Muscle Testing Left Flexion 4- Good- Extension 4- Good- Adduction 4 Good External Rotation 4- Good- Internal Rotation 4 Good PT-OP-Q Treatments Start: 10/28/22 09:19 Freq: Status: Active Protocol: Document 02/01/23 09:06 SP (Rec: 02/01/23 09:49 SP [id number]) Therapeutic Exercises Sidelying Exercises abd Sidelying Exercise Name added to HEP Side right Resistance #1 DB- approx 122 deg (little discomfort catch at 115deg) Reps/Minutes x8 reps Comments cued slow concentric inf glide , good slow eccentric painfree shld ER Sidelying Exercise Name added to HEP Side right Resistance 1# DB Equipment Used towel under arm Reps/Minutes 2x10 reps Comments good slow controlled con/ecc, painfree range Standing Exercises tricep ext Standing Exercise Name DIscussed continue at home Resistance Tb #1 Reps/Minutes 15x Comments cued neutral LB shld ext Standing Exercise Name DIscussed continue at home Resistance Tb #1 Reps/Minutes 5 reps x2 Comments cued TA/ PPT to decr LB recruitment, scap set con/ecc R shld IR, ER Standing Exercise Name R IR, ER, DIscussed continue at home Side right Resistance TB #1 Equipment Used not towel (better) Reps/Minutes 2x5 reps Comments cued level shld, elbow flexed and back little more Manual Therapy Treatment Soft Tissue Mobilization biceps Body Location R Mobilization Type Myofascial Release,Strumming, Sustained Pressure Intensity/Depth Moderate Body Position Sidelying RC insertion Body Location R distal RTC, Mobilization Type Cross-Friction Intensity/Depth Moderate Body Position Sidelying Joint Mobilizations scapulothoracic Joint R shld Direction elevation/depression, protraction/retraction Grade III Body Position Sidelying Reps/Duration 4min Comments PROM, AAROM for body awareness Taping right shoulder Body Location R shld Treatment Focus support, facil scapular stab Type of Tape kinesiotape Skin Inspection intact Comments V strip T10 to ant shoulder with 50-75% stretch (02/01/23 didn't reapply- 2 I strips from deltoid insertion ant and post surrounding deltoid 50-75% stretch) good feedback response. Manual Techniques PROM R shld Type Humeral inferior glide w/ FF, ABD and ER Body Location R shld Body Position Hooklying Reps/Duration x5 reps each Comments painfree range PT-OP-R Modalities Start: 10/28/22 09:19 Freq: Status: Active Protocol: Document 01/05/23 11:15 SAK (Rec: 01/05/23 12:08 SAK [id number]) Hot Pack/Cold Pack Treatment Cold Pack Location right shoulder Patient Position Hooklying Treatment Duration (minutes) 10 Patient Tolerance Good PT-OP-T Assessment and Plan Start: 10/28/22 09:19 Freq: Status: Active Protocol: Document 02/01/23 09:06 SP (Rec: 02/01/23 09:49 SP [id number]) Physical Therapy Assessment Goals Three Impairment activity tolerance Impairment Quickdash UE disability index score60% Penitentiary Goal (LTG) Improve QuickDash score to no greater than 30% as measure of improved activity tolerance with right UE 12/30/22: decreased to 39% Two Impairment unable to reach overhead or behind her back with right shoulder Short Term Goal (STG) Patient will be able to reach use right UE to do her hair, and be able to pull pants up on right without increase in pain 12/30/22: goal progress STG Duration 12/12/21 Counselor Marriage And Family Goal (LTG) Patient will demonstrate full ROM with right shoulder to allow her to do all usual activities LTG Duration 01/27/23 One Impairment pain right shoulder as high as 8/10 Short Term Goal (STG) decrease pain to no greater than 6/10 with usual activities 12/30/22: pain decreased to 5/10 STG Duration 12/12/21 Counselor Marriage And Family Goal (LTG) decrease pain to no greater than 3/10 with all usual activities LTG Duration 01/27/23 Assessment Summary Assessment LImited with ther ex today due to low Blood sugar notification watch/phone during tx decrease to 52. Provided cranberry juice assist end tx for safety. Improved able increased resistance R shld ther ex this tx, report muscle tiring . Good feedback L shld proximal support post ktaping. Physical Therapy Plan Frequency and Duration Frequency of Treatment 2x/Week Duration of treatment (weeks) 12 Plan of Care Start Date 10/29/22 Plan of Care End Date 01/27/23 Therapeutic Interventions Therapeutic Interventions Aquatic Therapy,Home Exercise Program,Manual Therapy,Patient /Caregiver Education,Self-Care /Home Management,Soft Tissue Mobilization,Taping, Therapeutic Activities, Therapeutic Exercises Modalities Cold Pack/Ice Massage,Electric Stimulation,Hot Packs, Infrared Therapy,Iontophoresis ,Ultrasound Next Visit Focus/Plan Next Note Type Treatment Note Next Visit Plan Recheck HEP, progress ROM/ strengthening if blood sugars WNL. POC: Consider cold laser treatment. Continue gentle progression of shoulder ROM, strengthening, scapular stabilization. Patient education regarding kinesiotape at home.
--- NOTE | 2023-02-01 18:23 | PT.OTRE ---
Current Diagnoses Pain in right shoulder (02/01/23) Incomplete rotator cuff tear or rupture of right shoulder, not specified as traumatic (02/01/23) Superior glenoid labrum lesion of right shoulder, initial encounter (02/01/23) Past Medical History (Last Reviewed 06/29/22 @ 15:55 by Avelino Del Real MD) Anasarca Arthritis Asthma Chest pain Chronic back pain Chronic renal insufficiency Corneal abrasion of both eyes Coronary artery disease Depression Diabetes Dry eye syndrome Hyperlipidemia Hypertension Hypokalemia Migraine GARCIA (nonalcoholic steatohepatitis) Osteoarthritis Reactive airway disease Sarcoidosis (~1996) Sciatica of right side Seasonal allergies Sleep apnea Spinal stenosis of lumbar region with radiculopathy Spondylolisthesis Vitamin B12 deficiency Surgical History (Last Reviewed 06/29/22 @ 15:55 by Avelino Del Real MD) History of 2 sections History of bilateral cataract extraction (2015) History of colonoscopy (08/16/17) Hx of appendectomy Hx of cholecystectomy Hx of heart artery stent (02/24/19) Hx of laminectomy (11/23/16) Visit Care Team Role Provider Type Slade Mccann MD Primary Care Provider Physician Specialty: Family Practice Address: [address] [place], [place] [address], [place], [address] Email: [email or web address] Provider Referring Provider Specialty: Address: Phone: Fax: Email: Physical Therapy Re-Evaluation PT-OP-A Visit Information Start: 10/28/22 09:19 Freq: Status: Active Protocol: Document 02/01/23 18:17 [facility] (Rec: 02/01/23 18:23 [facility] [id number]) Out-Patient Physical Therapy Visit Information Visit Information Visit Type Re-Evaluation Evaluation Information Evaluation Date 10/29/22 Precautions Precautions cardiac: [place], has done cardiac rehab lymphedema Sensitivities to Latex. PT-OP-B Current Condition Start: 10/28/22 09:19 Freq: Status: Active Protocol: Document 11/05/22 11:17 SAK (Rec: 11/05/22 12:03 SAK [id number]) Current Condition History of Current Condition Onset Date 1 1/2 years Current Complaints right History of Current Condition gradual onset right shoulder pain unknown reason. Increases with trying to reach overhead, out to side, or behind her back; pain and tingling. If tries to sleep on back both arms go numb. Unable to wear compression sleeve left due to pain right shoulder; patient previously seen by this PT for right shoulder pain and felt at that time pain at least some due to overuse right UE. Goes back to the doctor after PT ( Clifford Diggs). 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 Saw computer systems architect. MRI right shoulder: incomplete RC tear, superior labral tear Prior Treatments and Tests Tylenol, ice, heat. Can't do UE ex at cardiac rehab, low tolerance for HEP previously instructed. Has TENS, but doesn't know how to use Treatment Goals Patient/Caregiver Goals Decrease pain, improve use of right UE. Patient is right handed. PT-OP-C Subjective Start: 10/28/22 09:19 Freq: Status: Active Protocol: Document 02/01/23 09:06 SP (Rec: 02/01/23 09:49 SP [id number]) OP-PT Subjective Patient Comments Patient Comments Pt reports has had some eye visual concerns making challenging getting around, being followed by [facility] recently so didn't get to HEP. Today blood sugars 4-5 am 142, 110 when woke up but 67 right now and had breakfast. She reports in the am ok getting shirt on reaching but by end day gets pretty sore and has to baby it . SHe has a bump on B forearm and having ultrasounded later today to see if why getting tingling into 4-5 fingers. Pt stated her daughter isn't there all the time lately and so hasn't been ableto reapply the ktaping as had planned, wants TELEPHONE STERILIZER to reapply today. PT-OP-E Functional Tests Start: 10/28/22 09:19 Freq: Status: Active Protocol: Document 10/29/22 09:50 SAK (Rec: 10/29/22 17:12 SAK [id number]) Functional Tests Marcey's Scratch Test Action 1: The subject is instructed to touch the opposite shoulder with his/her hand. This motion checks Glenohumeral adduction, internal rotation , horizontal adduction and scapular protraction Action 2: The subject is instructed to place his/her arm overhead and reach behind the neck to touch his/her upper back. This motion checks Glenohumeral abduction, external rotation and scapular upward rotation and elevation. Action 3: The subject puts his/her hand on the lower back and reaches upward as far as possible. This motion checks glenohumeral adduction, internal rotation and scapular retraction with downward rotation Action 1- Left anterior shoulder Action 1- Right posterior shoulder Action 2- Left T2 Action 2- Right lateral neck Action 3- Left lateral hip Action 3- Right T7 PT-OP-H Neuro Start: 10/28/22 09:19 Freq: Status: Active Protocol: Document 10/29/22 09:50 [facility] (Rec: 10/29/22 17:12 [facility] [id number]) Sensation Evaluation Gross Sensation Gross Sensation Left UE Impaired,Right UE Impaired Sensation Description Paresthesia Location Details Left Arm Light Touch Intact/Normal PT-OP-J Posture/Palpation/Skin Start: 10/28/22 09:19 Freq: Status: Active Protocol: Document 10/29/22 09:50 [facility] (Rec: 10/29/22 17:12 [facility] [id number]) Posture Evaluation Position Sitting Head/C-Spine Posture Forward Head T-Spine Posture Increased Kyphosis L-Spine Posture Increased Lordosis Shoulder Posture (L) Rounded,(R) Rounded Scapula Posture (L) Protracted,(R) Protracted Arm Posture (L) Internally Rotated,(R) Internally Rotated Pelvis Posture Anteriorly Tilted Palpation Assessment Location RC insertion Palpation Findings Tenderness Palpation Details entire joint line painful to palpation PT-OP-K Range of Motion Start: 10/28/22 09:19 Freq: Status: Active Protocol: Document 10/29/22 09:50 [facility] (Rec: 10/29/22 17:12 [facility] [id number]) Cervical Spine Range of Motion Cervical Spine Active Testing Position Sitting Flexion 50 Extension 10 Rotation Left 55 Rotation Right 55 Lateral Flexion Left 30 Lateral Flexion Right 30 Shoulder Goniometric Range of Motion Shoulder Measured in Degrees Left Shoulder ROM WFL No Testing Position Sitting Flexion 85 Extension 10 Abduction 75 External Rotation at 0 degrees Abduction 45 Right Shoulder ROM WFL Yes Comments mild limitations due to lymphedema PT-OP-L Special Tests Start: 10/28/22 09:19 Freq: Status: Active Protocol: Document 10/29/22 09:50 [facility] (Rec: 10/29/22 17:12 [facility] [id number]) Special Tests Shoulder Special Tests Lift-Off Rotator Cuff Test Results positive Elevation Impingement Test Results positive Drop Arm Rotator Cuff Test Results positve PT-OP-M Strength Start: 10/28/22 09:19 Freq: Status: Active Protocol: Document 10/29/22 09:50 SAK (Rec: 10/29/22 17:12 SAK [id number]) Shoulder Strength Shoulder Manual Muscle Testing Left Flexion 4- Good- Extension 4- Good- Adduction 4 Good External Rotation 4- Good- Internal Rotation 4 Good PT-OP-Q Treatments Start: 10/28/22 09:19 Freq: Status: Active Protocol: Document 02/01/23 09:06 SP (Rec: 02/01/23 09:49 SP [id number]) Therapeutic Exercises Sidelying Exercises abd Sidelying Exercise Name added to HEP Side right Resistance #1 DB- approx 122 deg (little discomfort catch at 115deg) Reps/Minutes x8 reps Comments cued slow concentric inf glide , good slow eccentric painfree shld ER Sidelying Exercise Name added to HEP Side right Resistance 1# DB Equipment Used towel under arm Reps/Minutes 2x10 reps Comments good slow controlled con/ecc, painfree range Standing Exercises tricep ext Standing Exercise Name DIscussed continue at home Resistance Tb #1 Reps/Minutes 15x Comments cued neutral LB shld ext Standing Exercise Name DIscussed continue at home Resistance Tb #1 Reps/Minutes 5 reps x2 Comments cued TA/ PPT to decr LB recruitment, scap set con/ecc R shld IR, ER Standing Exercise Name R IR, ER, DIscussed continue at home Side right Resistance TB #1 Equipment Used not towel (better) Reps/Minutes 2x5 reps Comments cued level shld, elbow flexed and back little more Manual Therapy Treatment Soft Tissue Mobilization biceps Body Location R Mobilization Type Myofascial Release,Strumming, Sustained Pressure Intensity/Depth Moderate Body Position Sidelying RC insertion Body Location R distal RTC, Mobilization Type Cross-Friction Intensity/Depth Moderate Body Position Sidelying Joint Mobilizations scapulothoracic Joint R shld Direction elevation/depression, protraction/retraction Grade III Body Position Sidelying Reps/Duration 4min Comments PROM, AAROM for body awareness Taping right shoulder Body Location R shld Treatment Focus support, facil scapular stab Type of Tape kinesiotape Skin Inspection intact Comments V strip T10 to ant shoulder with 50-75% stretch (02/01/23 didn't reapply- 2 I strips from deltoid insertion ant and post surrounding deltoid 50-75% stretch) good feedback response. Manual Techniques PROM R shld Type Humeral inferior glide w/ FF, ABD and ER Body Location R shld Body Position Hooklying Reps/Duration x5 reps each Comments painfree range PT-OP-R Modalities Start: 10/28/22 09:19 Freq: Status: Active Protocol: Document 01/05/23 11:15 [facility] (Rec: 01/05/23 12:08 [facility] [id number]) Hot Pack/Cold Pack Treatment Cold Pack Location right shoulder Patient Position Hooklying Treatment Duration (minutes) 10 Patient Tolerance Good PT-OP-T Assessment and Plan Start: 10/28/22 09:19 Freq: Status: Active Protocol: Document 02/01/23 18:17 [facility] (Rec: 02/01/23 18:23 [facility] [id number]) Physical Therapy Assessment Goals Three Impairment activity tolerance Impairment Quickdash UE disability index score60% Assisted Goal (LTG) Improve QuickDash score to no greater than 30% as measure of improved activity tolerance with right UE 12/30/22: decreased to 39% 02/01/23: 37% LTG Duration 04/03/23 Two Impairment unable to reach overhead or behind her back with right shoulder Short Term Goal (STG) Patient will be able to reach use right UE to do her hair, and be able to pull pants up on right without increase in pain 12/30/22: goal progress 01/31/23: some goal progress, still some pain STG Duration 03/04/23 Mobile Service Rv Technician Goal (LTG) Patient will demonstrate full ROM with right shoulder to allow her to do all usual activities LTG Duration 01/27/23 One Impairment pain right shoulder as high as 8/10 Short Term Goal (STG) decrease pain to no greater than 6/10 with usual activities 12/30/22: pain decreased to 5/10 02/01/23: 4/10 at rest, can still inc to 6/10 at times STG Duration 03/04/23 Assisted Goal (LTG) decrease pain to no greater than 3/10 with all usual activities LTG Duration 04/03/23 Progress Towards Goals Progress Towards Goals Slow Progress - Other Progress Comments severity of RC tear, multiple medical issues Assessment Summary Assessment Patient making progress toward goals, slowed due to multiple medical issues including blood sugar issues, migraine. She would benefit from further PT to help her fully achieve her PT goals of full active use of her right UE with minimal to no pain. Physical Therapy Plan Frequency and Duration Frequency of Treatment 2x/Week Duration of treatment (weeks) 8 Plan of Care Start Date 02/01/23 Plan of Care End Date 04/03/23 Therapeutic Interventions Therapeutic Interventions Aquatic Therapy,Home Exercise Program,Manual Therapy,Patient /Caregiver Education,Self-Care /Home Management,Soft Tissue Mobilization,Taping, Therapeutic Activities, Therapeutic Exercises Modalities Cold Pack/Ice Massage,Electric Stimulation,Hot Packs, Infrared Therapy,Iontophoresis ,Ultrasound Next Visit Focus/Plan Next Note Type Treatment Note Next Visit Plan Recheck HEP, progress ROM/ strengthening if blood sugars WNL. POC: Consider cold laser treatment. Continue gentle progression of shoulder ROM, strengthening, scapular stabilization. Patient education regarding kinesiotape at home.
--- NOTE | 2023-02-01 18:23 | PT.OPPOC ---
Physical, Occupational & Speech Therapy At [facility] Current Diagnoses Pain in right shoulder (02/01/23) Incomplete rotator cuff tear or rupture of right shoulder, not specified as traumatic (02/01/23) Superior glenoid labrum lesion of right shoulder, initial encounter (02/01/23) Visit Care Team Role Provider Type Slade Mccann MD Primary Care Provider Physician Specialty: Family Practice Address: [facility] [place], [address] Email: [email or web address] Attending Provider Referring Provider Specialty: Address: Phone: Fax: Email: Plan Of Care PT-OP-T Assessment and Plan Start: 10/28/22 09:19 Freq: Status: Active Protocol: Document 02/01/23 18:17 SAK (Rec: 02/01/23 18:23 SAK [id number]) Physical Therapy Assessment Goals Three Impairment activity tolerance Impairment Quickdash UE disability index score60% Housekeeping Cleaner Goal (LTG) Improve QuickDash score to no greater than 30% as measure of improved activity tolerance with right UE 12/30/22: decreased to 39% 02/01/23: 37% LTG Duration 04/03/23 Two Impairment unable to reach overhead or behind her back with right shoulder Short Term Goal (STG) Patient will be able to reach use right UE to do her hair, and be able to pull pants up on right without increase in pain 12/30/22: goal progress 01/31/23: some goal progress, still some pain STG Duration 03/04/23 [facility] Goal (LTG) Patient will demonstrate full ROM with right shoulder to allow her to do all usual activities LTG Duration 01/27/23 One Impairment pain right shoulder as high as 8/10 Short Term Goal (STG) decrease pain to no greater than 6/10 with usual activities 12/30/22: pain decreased to 5/10 02/01/23: 4/10 at rest, can still inc to 6/10 at times STG Duration 03/04/23 Housekeeping Cleaner Goal (LTG) decrease pain to no greater than 3/10 with all usual activities LTG Duration 04/03/23 Progress Towards Goals Progress Towards Goals Slow Progress - Other Progress Comments severity of RC tear, multiple medical issues Assessment Summary Assessment Patient making progress toward goals, slowed due to multiple medical issues including blood sugar issues, migraine. She would benefit from further PT to help her fully achieve her PT goals of full active use of her right UE with minimal to no pain. Physical Therapy Plan Frequency and Duration Frequency of Treatment 2x/Week Duration of treatment (weeks) 8 Plan of Care Start Date 02/01/23 Plan of Care End Date 04/03/23 Therapeutic Interventions Therapeutic Interventions Aquatic Therapy,Home Exercise Program,Manual Therapy,Patient /Caregiver Education,Self-Care /Home Management,Soft Tissue Mobilization,Taping, Therapeutic Activities, Therapeutic Exercises Modalities Cold Pack/Ice Massage,Electric Stimulation,Hot Packs, Infrared Therapy,Iontophoresis ,Ultrasound Next Visit Focus/Plan Next Note Type Treatment Note Next Visit Plan Recheck HEP, progress ROM/ strengthening if blood sugars WNL. POC: Consider cold laser treatment. Continue gentle progression of shoulder ROM, strengthening, scapular stabilization. Patient education regarding kinesiotape at home. Plan of Care Dates Plan of Care Start Date 02/01/23 Plan of Care End Date 04/03/23 Electronically Signed by: Macey Silvestre, PT 02/01/23 7828 If you are in agreement with this Plan of Care, please return a signed and dated copy. I have reviewed this Plan of Care and certify that the skilled therapy services above are required to meet the patient?s needs. Physician Signature Date Printed Name and Credentials Clinical Instructor Signature Printed Name and Credentials
--- NOTE | 2023-02-08 17:01 | PT.OTN ---
Current Diagnoses Pain in right shoulder (02/08/23) Incomplete rotator cuff tear or rupture of right shoulder, not specified as traumatic (02/08/23) Superior glenoid labrum lesion of right shoulder, initial encounter (02/08/23) Physical Therapy Treatment Note PT-OP-A Visit Information Start: 10/28/22 09:19 Freq: Status: Active Protocol: Document 02/08/23 13:49 SAK (Rec: 02/08/23 14:30 [facility] [id number]) Out-Patient Physical Therapy Visit Information Visit Information Visit Type Treatment Note Visit Start Time 13:49 Visit Stop Time 14:30 Total Visit Minutes 41 Visit Number 18 Number of FINANCIAL RISK MANAGER Visits 0 Precautions Precautions cardiac: [place], has done cardiac rehab lymphedema Sensitivities to Latex. PT-OP-B Current Condition Start: 10/28/22 09:19 Freq: Status: Active Protocol: Document 11/05/22 11:17 SAK (Rec: 11/05/22 12:03 [facility] [id number]) Current Condition History of Current Condition Onset Date 1 1/2 years Current Complaints right History of Current Condition gradual onset right shoulder pain unknown reason. Increases with trying to reach overhead, out to side, or behind her back; pain and tingling. If tries to sleep on back both arms go numb. Unable to wear compression sleeve left due to pain right shoulder; patient previously seen by this PT for right shoulder pain and felt at that time pain at least some due to overuse right UE. Goes back to the doctor after PT ( Clifford Diggs). 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 Saw lead ios developer. MRI right shoulder: incomplete RC tear, superior labral tear Prior Treatments and Tests Tylenol, ice, heat. Can't do UE ex at cardiac rehab, low tolerance for HEP previously instructed. Has TENS, but doesn't know how to use Treatment Goals Patient/Caregiver Goals Decrease pain, improve use of right UE. Patient is right handed. 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 Overall shoulder has felt better, but states struggled to get arm in sleeve this am causing increase in pain. Feels PT helpful, liked cold laser last session. Has been able to reach overhead more with less pain PT-OP-E Functional Tests Start: 10/28/22 09:19 Freq: Status: Active Protocol: Document 10/29/22 09:50 SAK (Rec: 10/29/22 17:12 [facility] [id number]) Functional Tests Apley's Scratch Test Action 1- Left anterior shoulder Action 1- Right posterior shoulder Action 2- Left T2 Action 2- Right lateral neck Action 3- Left lateral hip Action 3- Right T7 PT-OP-H Neuro Start: 10/28/22 09:19 Freq: Status: Active Protocol: Document 10/29/22 09:50 SAK (Rec: 10/29/22 17:12 [facility] [id number]) Sensation Evaluation Gross Sensation Gross Sensation Left UE Impaired,Right UE Impaired Sensation Description Paresthesia Location Details Left Arm Light Touch Intact/Normal PT-OP-J Posture/Palpation/Skin Start: 10/28/22 09:19 Freq: Status: Active Protocol: Document 10/29/22 09:50 [facility] (Rec: 10/29/22 17:12 [facility] [id number]) Posture Evaluation Position Sitting Head/C-Spine Posture Forward Head T-Spine Posture Increased Kyphosis L-Spine Posture Increased Lordosis Shoulder Posture (L) Rounded,(R) Rounded Scapula Posture (L) Protracted,(R) Protracted Arm Posture (L) Internally Rotated,(R) Internally Rotated Pelvis Posture Anteriorly Tilted Palpation Assessment Location RC insertion Palpation Findings Tenderness Palpation Details entire joint line painful to palpation PT-OP-K Range of Motion Start: 10/28/22 09:19 Freq: Status: Active Protocol: Document 10/29/22 09:50 [facility] (Rec: 10/29/22 17:12 [facility] [id number]) Cervical Spine Range of Motion Cervical Spine Active Testing Position Sitting Flexion 50 Extension 10 Rotation Left 55 Rotation Right 55 Lateral Flexion Left 30 Lateral Flexion Right 30 Shoulder Goniometric Range of Motion Shoulder Left Shoulder ROM WFL No Testing Position Sitting Flexion 85 Extension 10 Abduction 75 External Rotation at 0 degrees Abduction 45 Right Shoulder ROM WFL Yes Comments mild limitations due to lymphedema PT-OP-L Special Tests Start: 10/28/22 09:19 Freq: Status: Active Protocol: Document 10/29/22 09:50 [facility] (Rec: 10/29/22 17:12 [facility] [id number]) Special Tests Shoulder Special Tests Lift-Off Rotator Cuff Test Results positive Elevation Impingement Test Results positive Drop Arm Rotator Cuff Test Results positve PT-OP-M Strength Start: 10/28/22 09:19 Freq: Status: Active Protocol: Document 10/29/22 09:50 [facility] (Rec: 10/29/22 17:12 [facility] [id number]) Shoulder Strength Shoulder Manual Muscle Testing Left Flexion 4- Good- Extension 4- Good- Adduction 4 Good External Rotation 4- Good- Internal Rotation 4 Good PT-OP-Q Treatments Start: 10/28/22 09:19 Freq: Status: Active Protocol: Document 02/08/23 13:49 [facility] (Rec: 02/08/23 14:30 [facility] [id number]) Therapeutic Exercises Supine Exercises shld ER Supine Exercise Name AAROM Reps/Minutes 10x hor ab Supine Exercise Name reviewed and added to HEP Resistance L1 TB Reps/Minutes 10x Comments cues for scapular retraction, elbows extended FF Side right Equipment Used AAROM today Reps/Minutes x10 reps Comments max 120 degrees Sidelying Exercises abd Sidelying Exercise Name HEP review Side right Resistance #1 DB- approx 122 deg (little discomfort catch at 115deg) Reps/Minutes x8 reps Comments cued slow concentric inf glide , good slow eccentric painfree shld ER Sidelying Exercise Name HEP review Side right Resistance 1# DB Equipment Used towel under arm Reps/Minutes 2x10 reps Comments good slow controlled con/ecc, painfree range Standing Exercises shld ext Standing Exercise Name HEP R shld IR, ER Standing Exercise Name HEP Therapeutic Activity Therapeutic Activity compression sleeve donning Reps/Minutes 1 min Manual Therapy Treatment Soft Tissue Mobilization biceps Body Location R Mobilization Type Myofascial Release,Strumming, Sustained Pressure Intensity/Depth Moderate Body Position Supine RC insertion Body Location R distal RTC, Mobilization Type Cross-Friction Intensity/Depth Moderate Body Position Supine Comments more tender today Joint Mobilizations scapulothoracic Joint R shld Direction elevation/depression, protraction/retraction Grade III Body Position Sidelying Reps/Duration 4min Comments PROM, AAROM for body awareness Taping right shoulder Body Location R shld Treatment Focus support, facil scapular stab Type of Tape kinesiotape Skin Inspection intact Comments I strip T10 to ant shoulder with 50-75% stretch for postural correction, LT facil, I strip supraspinatus 50% stretch, I strip post shoulder to ant with 50% stretch Manual Techniques PROM R shld Type Humeral inferior glide w/ FF, ABD and ER Body Location R shld Body Position Hooklying Reps/Duration x5 reps each Comments painfree range PT-OP-R Modalities Start: 10/28/22 09:19 Freq: Status: Active Protocol: Document 02/08/23 13:49 [facility] (Rec: 02/08/23 14:30 [facility] [id number]) Infrared Treatment Treatment right GH joint line, RC ins Duration (Minutes) 6 Body Position Supine Continuous/Pulsed Continuous Program or Protocal chronic pain and stiffness tendon ligament PT-OP-T Assessment and Plan Start: 10/28/22 09:19 Freq: Status: Active Protocol: Document 02/08/23 13:49 [facility] (Rec: 02/08/23 14:30 [facility] [id number]) Physical Therapy Assessment Goals Three Impairment activity tolerance Impairment Quickdash UE disability index score60% Seat Installer Goal (LTG) Improve QuickDash score to no greater than 30% as measure of improved activity tolerance with right UE 12/30/22: decreased to 39% Two Impairment unable to reach overhead or behind her back with right shoulder Short Term Goal (STG) Patient will be able to reach use right UE to do her hair, and be able to pull pants up on right without increase in pain 12/30/22: goal progress STG Duration 12/12/21 Seat Installer Goal (LTG) Patient will demonstrate full ROM with right shoulder to allow her to do all usual activities LTG Duration 01/27/23 One Impairment pain right shoulder as high as 8/10 Short Term Goal (STG) decrease pain to no greater than 6/10 with usual activities 12/30/22: pain decreased to 5/10 STG Duration 12/12/21 Seat Installer Goal (LTG) decrease pain to no greater than 3/10 with all usual activities LTG Duration 01/27/23 Physical Therapy Plan Frequency and Duration Frequency of Treatment 2x/Week Duration of treatment (weeks) 12 Plan of Care Start Date 10/29/22 Plan of Care End Date 01/27/23 Therapeutic Interventions Therapeutic Interventions Aquatic Therapy,Home Exercise Program,Manual Therapy,Patient /Caregiver Education,Self-Care /Home Management,Soft Tissue Mobilization,Taping, Therapeutic Activities, Therapeutic Exercises Modalities Cold Pack/Ice Massage,Electric Stimulation,Hot Packs, Infrared Therapy,Iontophoresis ,Ultrasound Next Visit Focus/Plan Next Note Type Treatment Note Next Visit Plan Educate daughter in application of kinesiotape via video on patient phone. Continue progression of right shoulder strengthening and stab.
--- NOTE | 2023-02-10 17:02 | PT.OTN ---
Current Diagnoses Pain in right shoulder (02/10/23) Incomplete rotator cuff tear or rupture of right shoulder, not specified as traumatic (02/10/23) Superior glenoid labrum lesion of right shoulder, initial encounter (02/10/23) Physical Therapy Treatment Note PT-OP-A Visit Information Start: 10/28/22 09:19 Freq: Status: Active Protocol: Document 02/10/23 10:32 SAK (Rec: 02/10/23 11:17 [facility] [id number]) Out-Patient Physical Therapy Visit Information Visit Information Visit Type Treatment Note Visit Start Time 10:33 Visit Stop Time 14:30 Total Visit Minutes 41 Visit Number 19 Number of CUPOLA REPAIRER Visits 0 Precautions Precautions cardiac: [place], has done cardiac rehab lymphedema Sensitivities to Latex. PT-OP-B Current Condition Start: 10/28/22 09:19 Freq: Status: Active Protocol: Document 11/05/22 11:17 SAK (Rec: 11/05/22 12:03 [facility] [id number]) Current Condition History of Current Condition Onset Date 1 1/2 years Current Complaints right History of Current Condition gradual onset right shoulder pain unknown reason. Increases with trying to reach overhead, out to side, or behind her back; pain and tingling. If tries to sleep on back both arms go numb. Unable to wear compression sleeve left due to pain right shoulder; patient previously seen by this PT for right shoulder pain and felt at that time pain at least some due to overuse right UE. Goes back to the doctor after PT ( Clifford Diggs). 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 Saw loom cleaner. MRI right shoulder: incomplete RC tear, superior labral tear Prior Treatments and Tests Tylenol, ice, heat. Can't do UE ex at cardiac rehab, low tolerance for HEP previously instructed. Has TENS, but doesn't know how to use Treatment Goals Patient/Caregiver Goals Decrease pain, improve use of right UE. Patient is right handed. PT-OP-C Subjective Start: 10/28/22 09:19 Freq: Status: Active Protocol: Document 02/10/23 10:32 SAK (Rec: 02/10/23 17:02 SAK [id number]) OP-PT Subjective Patient Comments Patient Comments Patient reports difficulty complying with HEP due to other medical issues, has difficulty keeping her shoulder down without cues. PT-OP-E Functional Tests Start: 10/28/22 09:19 Freq: Status: Active Protocol: Document 10/29/22 09:50 SAK (Rec: 10/29/22 17:12 [facility] [id number]) Functional Tests Apley's Scratch Test Action 1- Left anterior shoulder Action 1- Right posterior shoulder Action 2- Left T2 Action 2- Right lateral neck Action 3- Left lateral hip Action 3- Right T7 PT-OP-H Neuro Start: 10/28/22 09:19 Freq: Status: Active Protocol: Document 10/29/22 09:50 SAK (Rec: 10/29/22 17:12 [facility] [id number]) Sensation Evaluation Gross Sensation Gross Sensation Left UE Impaired,Right UE Impaired Sensation Description Paresthesia Location Details Left Arm Light Touch Intact/Normal PT-OP-J Posture/Palpation/Skin Start: 10/28/22 09:19 Freq: Status: Active Protocol: Document 10/29/22 09:50 SAK (Rec: 10/29/22 17:12 [facility] [id number]) Posture Evaluation Position Sitting Head/C-Spine Posture Forward Head T-Spine Posture Increased Kyphosis L-Spine Posture Increased Lordosis Shoulder Posture (L) Rounded,(R) Rounded Scapula Posture (L) Protracted,(R) Protracted Arm Posture (L) Internally Rotated,(R) Internally Rotated Pelvis Posture Anteriorly Tilted Palpation Assessment Location RC insertion Palpation Findings Tenderness Palpation Details entire joint line painful to palpation PT-OP-K Range of Motion Start: 10/28/22 09:19 Freq: Status: Active Protocol: Document 10/29/22 09:50 SAK (Rec: 10/29/22 17:12 [facility] [id number]) Cervical Spine Range of Motion Cervical Spine Active Testing Position Sitting Flexion 50 Extension 10 Rotation Left 55 Rotation Right 55 Lateral Flexion Left 30 Lateral Flexion Right 30 Shoulder Goniometric Range of Motion Shoulder Left Shoulder ROM WFL No Testing Position Sitting Flexion 85 Extension 10 Abduction 75 External Rotation at 0 degrees Abduction 45 Right Shoulder ROM WFL Yes Comments mild limitations due to lymphedema PT-OP-L Special Tests Start: 10/28/22 09:19 Freq: Status: Active Protocol: Document 10/29/22 09:50 SAK (Rec: 10/29/22 17:12 [facility] [id number]) Special Tests Shoulder Special Tests Lift-Off Rotator Cuff Test Results positive Elevation Impingement Test Results positive Drop Arm Rotator Cuff Test Results positve PT-OP-M Strength Start: 10/28/22 09:19 Freq: Status: Active Protocol: Document 10/29/22 09:50 SAK (Rec: 10/29/22 17:12 [facility] [id number]) Shoulder Strength Shoulder Manual Muscle Testing Left Flexion 4- Good- Extension 4- Good- Adduction 4 Good External Rotation 4- Good- Internal Rotation 4 Good PT-OP-Q Treatments Start: 10/28/22 09:19 Freq: Status: Active Protocol: Document 02/10/23 10:32 SAK (Rec: 02/10/23 17:02 [facility] [id number]) Therapeutic Exercises Supine Exercises shld ER Supine Exercise Name AAROM Reps/Minutes 10x hor ab Resistance L1 TB Reps/Minutes 10x Comments cues for scapular retraction, elbows extended FF Side right Equipment Used AAROM today Reps/Minutes x10 reps Comments max 120 degrees Sidelying Exercises abd Sidelying Exercise Name HEP review Side right Resistance #1 DB- approx 122 deg (little discomfort catch at 115deg) Reps/Minutes x8 reps Comments cued slow concentric inf glide , good slow eccentric painfree shld ER Sidelying Exercise Name HEP review Side right Resistance 1# DB Equipment Used towel under arm Reps/Minutes 2x10 reps Comments good slow controlled con/ecc, painfree range Manual Therapy Treatment Soft Tissue Mobilization biceps Body Location R Mobilization Type Myofascial Release,Strumming, Sustained Pressure Intensity/Depth Moderate Body Position Supine RC insertion Body Location R distal RTC, Mobilization Type Cross-Friction Intensity/Depth Moderate Body Position Supine Comments more tender today Joint Mobilizations scapulothoracic Joint R shld Direction elevation/depression, protraction/retraction Grade III Body Position Sidelying Reps/Duration 4min Comments PROM, AAROM for body awareness Taping right shoulder Body Location R shld Treatment Focus support, facil scapular stab Type of Tape kinesiotape Skin Inspection intact Comments I strip T10 to ant shoulder with 50-75% stretch for postural correction, LT facil, I strip supraspinatus 50% stretch, I strip post shoulder to ant with 50% stretch Manual Techniques PROM R shld Type Humeral inferior glide w/ FF, ABD and ER Body Location R shld Body Position Hooklying Reps/Duration x5 reps each Comments painfree range PT-OP-R Modalities Start: 10/28/22 09:19 Freq: Status: Active Protocol: Document 02/10/23 10:32 [facility] (Rec: 02/10/23 17:02 [facility] [id number]) Infrared Treatment Treatment right GH joint line, RC ins Duration (Minutes) 6 Body Position Supine Continuous/Pulsed Continuous Program or Protocal chronic pain and stiffness tendon ligament PT-OP-T Assessment and Plan Start: 10/28/22 09:19 Freq: Status: Active Protocol: Document 02/10/23 10:32 [facility] (Rec: 02/10/23 11:17 [facility] [id number]) Physical Therapy Assessment Goals Three Impairment activity tolerance Impairment Quickdash UE disability index score60% Grinding Machine Operator Portable Goal (LTG) Improve QuickDash score to no greater than 30% as measure of improved activity tolerance with right UE 12/30/22: decreased to 39% Two Impairment unable to reach overhead or behind her back with right shoulder Short Term Goal (STG) Patient will be able to reach use right UE to do her hair, and be able to pull pants up on right without increase in pain 12/30/22: goal progress STG Duration 12/12/21 Jail Goal (LTG) Patient will demonstrate full ROM with right shoulder to allow her to do all usual activities LTG Duration 01/27/23 One Impairment pain right shoulder as high as 8/10 Short Term Goal (STG) decrease pain to no greater than 6/10 with usual activities 12/30/22: pain decreased to 5/10 STG Duration 12/12/21 Jail Goal (LTG) decrease pain to no greater than 3/10 with all usual activities LTG Duration 01/27/23 Physical Therapy Plan Frequency and Duration Frequency of Treatment 2x/Week Duration of treatment (weeks) 12 Plan of Care Start Date 02/01/23 Plan of Care End Date 04/03/23 Therapeutic Interventions Therapeutic Interventions Aquatic Therapy,Home Exercise Program,Manual Therapy,Patient /Caregiver Education,Self-Care /Home Management,Soft Tissue Mobilization,Taping, Therapeutic Activities, Therapeutic Exercises Modalities Cold Pack/Ice Massage,Electric Stimulation,Hot Packs, Infrared Therapy,Iontophoresis ,Ultrasound Next Visit Focus/Plan Next Note Type Progress Note Next Visit Plan Daughter wasn't available again today, use phone next session for training in kinesiotape application. Progress note; reassess objective measures and patient questionnaires. Assure patient has all HEP handouts. Schedule follow-up.
--- NOTE | 2023-02-17 09:49 | PT.OTN ---
Current Diagnoses Pain in right shoulder (02/17/23) Incomplete rotator cuff tear or rupture of right shoulder, not specified as traumatic (02/17/23) Superior glenoid labrum lesion of right shoulder, initial encounter (02/17/23) Physical Therapy Treatment Note PT-OP-A Visit Information Start: 10/28/22 09:19 Freq: Status: Active Protocol: Document 02/17/23 09:02 SAK (Rec: 02/17/23 09:49 [facility] [id number]) Out-Patient Physical Therapy Visit Information Visit Information Visit Type Treatment Note Visit Note Cold laser and tape helps shoulder. Open book painful even with modificiation, still trying. LOts better after PT , able to do more for at least a couple days. worse after removes tape. Visit Start Time 10:33 Visit Stop Time 14:30 Total Visit Minutes 41 Visit Number 20 Number of PACKAGE LIFT OPERATOR Visits 0 Precautions Precautions cardiac: [place], has done cardiac rehab lymphedema Sensitivities to Latex. PT-OP-B Current Condition Start: 10/28/22 09:19 Freq: Status: Active Protocol: Document 11/05/22 11:17 SAK (Rec: 11/05/22 12:03 [facility] [id number]) Current Condition History of Current Condition Onset Date 1 1/2 years Current Complaints right History of Current Condition gradual onset right shoulder pain unknown reason. Increases with trying to reach overhead, out to side, or behind her back; pain and tingling. If tries to sleep on back both arms go numb. Unable to wear compression sleeve left due to pain right shoulder; patient previously seen by this PT for right shoulder pain and felt at that time pain at least some due to overuse right UE. Goes back to the doctor after PT ( Clifford Diggs). 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 Saw reefer engineer. MRI right shoulder: incomplete RC tear, superior labral tear Prior Treatments and Tests Tylenol, ice, heat. Can't do UE ex at cardiac rehab, low tolerance for HEP previously instructed. Has TENS, but doesn't know how to use Treatment Goals Patient/Caregiver Goals Decrease pain, improve use of right UE. Patient is right handed. PT-OP-C Subjective Start: 10/28/22 09:19 Freq: Status: Active Protocol: Document 02/10/23 10:32 SAK (Rec: 02/10/23 17:02 [facility] [id number]) OP-PT Subjective Patient Comments Patient Comments Patient reports difficulty complying with HEP due to other medical issues, has difficulty keeping her shoulder down without cues. PT-OP-E Functional Tests Start: 10/28/22 09:19 Freq: Status: Active Protocol: Document 10/29/22 09:50 SAK (Rec: 10/29/22 17:12 [facility] [id number]) Functional Tests Apley's Scratch Test Action 1- Left anterior shoulder Action 1- Right posterior shoulder Action 2- Left T2 Action 2- Right lateral neck Action 3- Left lateral hip Action 3- Right T7 PT-OP-H Neuro Start: 10/28/22 09:19 Freq: Status: Active Protocol: Document 10/29/22 09:50 SAK (Rec: 10/29/22 17:12 [facility] [id number]) Sensation Evaluation Gross Sensation Gross Sensation Left UE Impaired,Right UE Impaired Sensation Description Paresthesia Location Details Left Arm Light Touch Intact/Normal PT-OP-J Posture/Palpation/Skin Start: 10/28/22 09:19 Freq: Status: Active Protocol: Document 10/29/22 09:50 SAK (Rec: 10/29/22 17:12 [facility] [id number]) Posture Evaluation Position Sitting Head/C-Spine Posture Forward Head T-Spine Posture Increased Kyphosis L-Spine Posture Increased Lordosis Shoulder Posture (L) Rounded,(R) Rounded Scapula Posture (L) Protracted,(R) Protracted Arm Posture (L) Internally Rotated,(R) Internally Rotated Pelvis Posture Anteriorly Tilted Palpation Assessment Location RC insertion Palpation Findings Tenderness Palpation Details entire joint line painful to palpation PT-OP-K Range of Motion Start: 10/28/22 09:19 Freq: Status: Active Protocol: Document 10/29/22 09:50 SAK (Rec: 10/29/22 17:12 [facility] [id number]) Cervical Spine Range of Motion Cervical Spine Active Testing Position Sitting Flexion 50 Extension 10 Rotation Left 55 Rotation Right 55 Lateral Flexion Left 30 Lateral Flexion Right 30 Shoulder Goniometric Range of Motion Shoulder Left Shoulder ROM WFL No Testing Position Sitting Flexion 85 Extension 10 Abduction 75 External Rotation at 0 degrees Abduction 45 Right Shoulder ROM WFL Yes Comments mild limitations due to lymphedema PT-OP-L Special Tests Start: 10/28/22 09:19 Freq: Status: Active Protocol: Document 10/29/22 09:50 SAK (Rec: 10/29/22 17:12 [facility] [id number]) Special Tests Shoulder Special Tests Lift-Off Rotator Cuff Test Results positive Elevation Impingement Test Results positive Drop Arm Rotator Cuff Test Results positve PT-OP-M Strength Start: 10/28/22 09:19 Freq: Status: Active Protocol: Document 10/29/22 09:50 [facility] (Rec: 10/29/22 17:12 [facility] [id number]) Shoulder Strength Shoulder Manual Muscle Testing Left Flexion 4- Good- Extension 4- Good- Adduction 4 Good External Rotation 4- Good- Internal Rotation 4 Good PT-OP-Q Treatments Start: 10/28/22 09:19 Freq: Status: Active Protocol: Document 02/17/23 09:02 [facility] (Rec: 02/17/23 09:49 [facility] [id number]) Therapeutic Exercises Sitting Exercises pull down Resistance L2 Reps/Minutes 10x Standing Exercises shld ext Standing Exercise Name HEP R shld IR, ER Standing Exercise Name HEP PT-OP-R Modalities Start: 10/28/22 09:19 Freq: Status: Active Protocol: Document 02/10/23 10:32 [facility] (Rec: 02/10/23 17:02 [facility] [id number]) Infrared Treatment Treatment right GH joint line, RC ins Duration (Minutes) 6 Body Position Supine Continuous/Pulsed Continuous Program or Protocal chronic pain and stiffness tendon ligament PT-OP-T Assessment and Plan Start: 10/28/22 09:19 Freq: Status: Active Protocol: Document 02/17/23 09:02 [facility] (Rec: 02/17/23 09:49 [facility] [id number]) Physical Therapy Assessment Goals Three Impairment activity tolerance Impairment Quickdash UE disability index score60% Senior Living Goal (LTG) Improve QuickDash score to no greater than 30% as measure of improved activity tolerance with right UE 12/30/22: decreased to 39% 02/18/23: LTG Duration 04/03/23 Two Impairment unable to reach overhead or behind her back with right shoulder Short Term Goal (STG) Patient will be able to reach use right UE to do her hair, and be able to pull pants up on right without increase in pain 12/30/22: goal progress 02/17/23: goal mostly met STG Duration 03/12/23 Tassel Snipper Goal (LTG) Patient will demonstrate full ROM with right shoulder to allow her to do all usual activities LTG Duration 04/03/23 One Impairment pain right shoulder as high as 8/10 Short Term Goal (STG) decrease pain to no greater than 6/10 with usual activities 12/30/22: pain decreased to 5/10 02/17/23: goal met STG Duration goal met Senior Living Goal (LTG) decrease pain to no greater than 3/10 with all usual activities LTG Duration 03/12/23 Physical Therapy Plan Frequency and Duration Frequency of Treatment 2x/Week Duration of treatment (weeks) 12 Plan of Care Start Date 02/01/23 Plan of Care End Date 04/03/23 Therapeutic Interventions Therapeutic Interventions Aquatic Therapy,Home Exercise Program,Manual Therapy,Patient /Caregiver Education,Self-Care /Home Management,Soft Tissue Mobilization,Taping, Therapeutic Activities, Therapeutic Exercises Modalities Cold Pack/Ice Massage,Electric Stimulation,Hot Packs, Infrared Therapy,Iontophoresis ,Ultrasound Next Visit Focus/Plan Next Note Type Treatment Note Next Visit Plan Patient experiences pain relief for 2 days after PT. Needs moderate verbal and tactile cues for correct scapular activation and movement with ther ex due to compensation and guarding. Continues to benefit from PT and recommend continued PT to help her fully achieve her PT goals and regain full active use of her right UE. Progress has been complicated by other medical issues for patient including lymphedema, eye and gut issues.
--- NOTE | 2023-03-03 11:07 | PT.OTN ---
Current Diagnoses Pain in right shoulder (03/03/23) Incomplete rotator cuff tear or rupture of right shoulder, not specified as traumatic (03/03/23) Superior glenoid labrum lesion of right shoulder, initial encounter (03/03/23) Physical Therapy Treatment Note PT-OP-A Visit Information Start: 10/28/22 09:19 Freq: Status: Active Protocol: Document 03/03/23 09:48 [facility] (Rec: 03/03/23 10:38 [facility] [id number]) Out-Patient Physical Therapy Visit Information Visit Information Visit Type Treatment Note Visit Start Time 09:48 Visit Stop Time 10:30 Total Visit Minutes 42 Visit Number 21 Precautions Precautions cardiac: [place], has done cardiac rehab lymphedema Sensitivities to Latex. PT-OP-B Current Condition Start: 10/28/22 09:19 Freq: Status: Active Protocol: Document 03/03/23 09:48 [facility] (Rec: 03/03/23 10:38 [facility] [id number]) Current Condition History of Current Condition Onset Date 1 1/2 years Current Complaints right History of Current Condition gradual onset right shoulder pain unknown reason. Increases with trying to reach overhead, out to side, or behind her back; pain and tingling. If tries to sleep on back both arms go numb. Unable to wear compression sleeve left due to pain right shoulder; patient previously seen by this PT for right shoulder pain and felt at that time pain at least some due to overuse right UE. Goes back to the doctor after PT ( Clifford Diggs). 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 Saw employment program representative. MRI right shoulder: incomplete RC tear, superior labral tear Prior Treatments and Tests Tylenol, ice, heat. Can't do UE ex at cardiac rehab, low tolerance for HEP previously instructed. Has TENS, but doesn't know how to use PT-OP-C Subjective Start: 10/28/22 09:19 Freq: Status: Active Protocol: Document 03/03/23 09:48 [facility] (Rec: 03/03/23 10:38 [facility] [id number]) OP-PT Subjective Patient Comments Patient Comments Saw doctor, due to making progress advised to continue PT, no surgery at this time. Patient c/o low blood sugar this am, has monitor, will continue to check during session. Agreed to PT having juice available as needed. PT-OP-E Functional Tests Start: 10/28/22 09:19 Freq: Status: Active Protocol: Document 10/29/22 09:50 SAK (Rec: 10/29/22 17:12 [facility] [id number]) Functional Tests Apley's Scratch Test Action 1- Left anterior shoulder Action 1- Right posterior shoulder Action 2- Left T2 Action 2- Right lateral neck Action 3- Left lateral hip Action 3- Right T7 PT-OP-H Neuro Start: 10/28/22 09:19 Freq: Status: Active Protocol: Document 10/29/22 09:50 [facility]AK (Rec: 10/29/22 17:12 [facility] [id number]) Sensation Evaluation Gross Sensation Gross Sensation Left UE Impaired,Right UE Impaired Sensation Description Paresthesia Location Details Left Arm Light Touch Intact/Normal PT-OP-J Posture/Palpation/Skin Start: 10/28/22 09:19 Freq: Status: Active Protocol: Document 10/29/22 09:50 [facility]AK (Rec: 10/29/22 17:12 [facility] [id number]) Posture Evaluation Position Sitting Head/C-Spine Posture Forward Head T-Spine Posture Increased Kyphosis L-Spine Posture Increased Lordosis Shoulder Posture (L) Rounded,(R) Rounded Scapula Posture (L) Protracted,(R) Protracted Arm Posture (L) Internally Rotated,(R) Internally Rotated Pelvis Posture Anteriorly Tilted Palpation Assessment Location RC insertion Palpation Findings Tenderness Palpation Details entire joint line painful to palpation PT-OP-K Range of Motion Start: 10/28/22 09:19 Freq: Status: Active Protocol: Document 10/29/22 09:50 [facility]AK (Rec: 10/29/22 17:12 [facility] [id number]) Cervical Spine Range of Motion Cervical Spine Active Testing Position Sitting Flexion 50 Extension 10 Rotation Left 55 Rotation Right 55 Lateral Flexion Left 30 Lateral Flexion Right 30 Shoulder Goniometric Range of Motion Shoulder Left Shoulder ROM WFL No Testing Position Sitting Flexion 85 Extension 10 Abduction 75 External Rotation at 0 degrees Abduction 45 Right Shoulder ROM WFL Yes Comments mild limitations due to lymphedema PT-OP-L Special Tests Start: 10/28/22 09:19 Freq: Status: Active Protocol: Document 10/29/22 09:50 [facility]AK (Rec: 10/29/22 17:12 [facility] [id number]) Special Tests Shoulder Special Tests Lift-Off Rotator Cuff Test Results positive Elevation Impingement Test Results positive Drop Arm Rotator Cuff Test Results positve PT-OP-M Strength Start: 10/28/22 09:19 Freq: Status: Active Protocol: Document 10/29/22 09:50 [facility] (Rec: 10/29/22 17:12 [facility] [id number]) Shoulder Strength Shoulder Manual Muscle Testing Left Flexion 4- Good- Extension 4- Good- Adduction 4 Good External Rotation 4- Good- Internal Rotation 4 Good PT-OP-Q Treatments Start: 10/28/22 09:19 Freq: Status: Active Protocol: Document 03/03/23 09:48 [facility] (Rec: 03/03/23 10:38 [facility] [id number]) Therapeutic Exercises Sidelying Exercises shld ER Sidelying Exercise Name HEP review Side right Resistance 1# DB Equipment Used towel under arm Reps/Minutes 2x10 reps Comments good slow controlled con/ecc, painfree range scapular clocks Sidelying Exercise Name right shoulder Resistance manual cues Reps/Minutes 5x ea Sitting Exercises pull down Resistance L2 Reps/Minutes 10x5 Comments facing away Standing Exercises row Equipment Used L2 Reps/Minutes 10x Comments verbal cues and manual cues for scap act and dec UT shld ext Reps/Minutes 10x5 Comments verbal and manual cues for scap act, dec UT R shld IR, ER Standing Exercise Name HEP Therapeutic Activity Therapeutic Activity compression sleeve donning Comments did not bring sleeve Manual Therapy Treatment Soft Tissue Mobilization biceps Body Location R Mobilization Type Myofascial Release,Strumming, Sustained Pressure Intensity/Depth Moderate Body Position Supine RC insertion Body Location R distal RTC, Mobilization Type Cross-Friction Intensity/Depth Moderate Body Position Supine Joint Mobilizations scapulothoracic Joint R shld Direction elevation/depression, protraction/retraction Grade III Body Position Sidelying Reps/Duration 4min Comments PROM, AAROM for kinesthetic awareness Taping right shoulder Body Location R shld Treatment Focus support, facil scapular stab Type of Tape kinesiotape Skin Inspection intact Comments I strip T10 to ant shoulder with 50-75% stretch for postural correction, LT facil, I strip supraspinatus 50% stretch, I strip post shoulder to ant horizontally with 50% stretch PT-OP-R Modalities Start: 10/28/22 09:19 Freq: Status: Active Protocol: Document 03/03/23 09:48 [facility] (Rec: 03/03/23 10:38 [facility] [id number]) Electric Stimulation Electric Stimulation Interferential Current (IFC) Comments not done due to patient leaving due to blood sugar issues Hot Pack/Cold Pack Treatment Cold Pack Comments not done due to patient having blood sugar issues, will do at home Infrared Treatment Treatment right GH joint line, RC ins Duration (Minutes) 6 Body Position Supine Continuous/Pulsed Continuous Program or Protocal chronic pain and stiffness tendon ligament PT-OP-T Assessment and Plan Start: 10/28/22 09:19 Freq: Status: Active Protocol: Document 03/03/23 09:48 [facility] (Rec: 03/03/23 10:38 [facility] [id number]) Physical Therapy Assessment Goals Three Impairment activity tolerance Impairment Quickdash UE disability index score60% Central Control Room Operator Goal (LTG) Improve QuickDash score to no greater than 30% as measure of improved activity tolerance with right UE 12/30/22: decreased to 39% 02/18/23: 43% today, more sore after no PT for 1 week. LTG Duration 04/03/23 Two Impairment unable to reach overhead or behind her back with right shoulder Short Term Goal (STG) Patient will be able to reach use right UE to do her hair, and be able to pull pants up on right without increase in pain 12/30/22: goal progress 02/17/23: goal mostly met STG Duration 03/12/23 Central Control Room Operator Goal (LTG) Patient will demonstrate full ROM with right shoulder to allow her to do all usual activities LTG Duration 04/03/23 One Impairment pain right shoulder as high as 8/10 Short Term Goal (STG) decrease pain to no greater than 6/10 with usual activities 12/30/22: pain decreased to 5/10 02/17/23: goal met STG Duration goal met [facility] Goal (LTG) decrease pain to no greater than 3/10 with all usual activities LTG Duration 04/03/23 Assessment Summary Assessment Patient continues to report best benefit from cold laser and kinesiotape. Compliant to HEP but reports some inc soreness. Requires moderate verbal and tactile cues to dec UT overactivation, and increase LT for correct scap movement and stab with ther ex . Patient having blood sugar issues; as low as 68, given 2 containers of cranberry juice cocktail with blood sugar inc to 75. Patient refused IFES or ice, preferring to ice at home today, not feeling well due to low blood sugar. Physical Therapy Plan Frequency and Duration Frequency of Treatment 2x/Week Duration of treatment (weeks) 12 Plan of Care Start Date 02/01/23 Plan of Care End Date 04/03/23 Therapeutic Interventions Therapeutic Interventions Aquatic Therapy,Home Exercise Program,Manual Therapy,Patient /Caregiver Education,Self-Care /Home Management,Soft Tissue Mobilization,Taping, Therapeutic Activities, Therapeutic Exercises Modalities Cold Pack/Ice Massage,Electric Stimulation,Hot Packs, Infrared Therapy,Iontophoresis ,Ultrasound Next Visit Focus/Plan Next Note Type Treatment Note Next Visit Plan Continue PT for right shoulder dysfunction, emphass on postural correction, scap stab , strengthening. Patient may request PT for lymphedema treatment due to difficulty managing, likely contribution to shoulder pain.
--- NOTE | 2023-03-05 09:51 | PT.OTN ---
Current Diagnoses Pain in right shoulder (03/05/23) Incomplete rotator cuff tear or rupture of right shoulder, not specified as traumatic (03/05/23) Superior glenoid labrum lesion of right shoulder, initial encounter (03/05/23) Physical Therapy Treatment Note PT-OP-A Visit Information Start: 10/28/22 09:19 Freq: Status: Active Protocol: Document 03/05/23 09:08 TH (Rec: 03/05/23 09:50 TH [id number]) Out-Patient Physical Therapy Visit Information Visit Information Visit Type Treatment Note Visit Start Time 09:00 Visit Stop Time 09:45 Total Visit Minutes 45 Visit Number 22 Number of RN ADVICE Visits 0 PT-OP-B Current Condition Start: 10/28/22 09:19 Freq: Status: Active Protocol: Document 03/03/23 09:48 SAK (Rec: 03/03/23 10:38 SAK [id number]) Current Condition History of Current Condition Onset Date 1 1/2 years Current Complaints right History of Current Condition gradual onset right shoulder pain unknown reason. Increases with trying to reach overhead, out to side, or behind her back; pain and tingling. If tries to sleep on back both arms go numb. Unable to wear compression sleeve left due to pain right shoulder; patient previously seen by this PT for right shoulder pain and felt at that time pain at least some due to overuse right UE. Goes back to the doctor after PT ( Clifford Diggs). 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 Saw exhibit specialist. MRI right shoulder: incomplete RC tear, superior labral tear Prior Treatments and Tests Tylenol, ice, heat. Can't do UE ex at cardiac rehab, low tolerance for HEP previously instructed. Has TENS, but doesn't know how to use PT-OP-C Subjective Start: 10/28/22 09:19 Freq: Status: Active Protocol: Document 03/05/23 09:08 TH (Rec: 03/05/23 09:50 TH [id number]) OP-PT Subjective Patient Comments Patient Comments Pt reports R shld pain has been slowly improving since staret of PT. PT-OP-E Functional Tests Start: 10/28/22 09:19 Freq: Status: Active Protocol: Document 10/29/22 09:50 SAK (Rec: 10/29/22 17:12 SAK [id number]) Functional Tests Apley's Scratch Test Action 1- Left anterior shoulder Action 1- Right posterior shoulder Action 2- Left T2 Action 2- Right lateral neck Action 3- Left lateral hip Action 3- Right T7 PT-OP-H Neuro Start: 10/28/22 09:19 Freq: Status: Active Protocol: Document 10/29/22 09:50 SAK (Rec: 10/29/22 17:12 [facility] [id number]) Sensation Evaluation Gross Sensation Gross Sensation Left UE Impaired,Right UE Impaired Sensation Description Paresthesia Location Details Left Arm Light Touch Intact/Normal PT-OP-J Posture/Palpation/Skin Start: 10/28/22 09:19 Freq: Status: Active Protocol: Document 10/29/22 09:50 SAK (Rec: 10/29/22 17:12 [facility] [id number]) Posture Evaluation Position Sitting Head/C-Spine Posture Forward Head T-Spine Posture Increased Kyphosis L-Spine Posture Increased Lordosis Shoulder Posture (L) Rounded,(R) Rounded Scapula Posture (L) Protracted,(R) Protracted Arm Posture (L) Internally Rotated,(R) Internally Rotated Pelvis Posture Anteriorly Tilted Palpation Assessment Location RC insertion Palpation Findings Tenderness Palpation Details entire joint line painful to palpation PT-OP-K Range of Motion Start: 10/28/22 09:19 Freq: Status: Active Protocol: Document 10/29/22 09:50 [facility] (Rec: 10/29/22 17:12 [facility] [id number]) Cervical Spine Range of Motion Cervical Spine Active Testing Position Sitting Flexion 50 Extension 10 Rotation Left 55 Rotation Right 55 Lateral Flexion Left 30 Lateral Flexion Right 30 Shoulder Goniometric Range of Motion Shoulder Left Shoulder ROM WFL No Testing Position Sitting Flexion 85 Extension 10 Abduction 75 External Rotation at 0 degrees Abduction 45 Right Shoulder ROM WFL Yes Comments mild limitations due to lymphedema PT-OP-L Special Tests Start: 10/28/22 09:19 Freq: Status: Active Protocol: Document 10/29/22 09:50 [facility] (Rec: 10/29/22 17:12 [facility] [id number]) Special Tests Shoulder Special Tests Lift-Off Rotator Cuff Test Results positive Elevation Impingement Test Results positive Drop Arm Rotator Cuff Test Results positve PT-OP-M Strength Start: 10/28/22 09:19 Freq: Status: Active Protocol: Document 10/29/22 09:50 [facility] (Rec: 10/29/22 17:12 [facility] [id number]) Shoulder Strength Shoulder Manual Muscle Testing Left Flexion 4- Good- Extension 4- Good- Adduction 4 Good External Rotation 4- Good- Internal Rotation 4 Good PT-OP-Q Treatments Start: 10/28/22 09:19 Freq: Status: Active Protocol: Document 03/05/23 09:08 TH (Rec: 03/05/23 09:50 TH [id number]) Therapeutic Exercises Other Exercises anatomical position Comments 1 x 5 10 sec holds Manual Therapy Treatment Joint Mobilizations 3rd rib mob Comments right subscapularis release Comments R with passive shld abd R GH jt Comments Post./ Inf. GHJ mob. Grade I-II Manual Techniques PROM R shld Comments Flex/abd PT-OP-R Modalities Start: 10/28/22 09:19 Freq: Status: Active Protocol: Document 03/03/23 09:48 [facility] (Rec: 03/03/23 10:38 [facility] [id number]) Electric Stimulation Electric Stimulation Interferential Current (IFC) Comments not done due to patient leaving due to blood sugar issues Hot Pack/Cold Pack Treatment Cold Pack Comments not done due to patient having blood sugar issues, will do at home Infrared Treatment Treatment right GH joint line, RC ins Duration (Minutes) 6 Body Position Supine Continuous/Pulsed Continuous Program or Protocal chronic pain and stiffness tendon ligament PT-OP-T Assessment and Plan Start: 10/28/22 09:19 Freq: Status: Active Protocol: Document 03/05/23 09:08 TH (Rec: 03/05/23 09:50 TH [id number]) Physical Therapy Assessment Goals Three Impairment activity tolerance Impairment Quickdash UE disability index score60% Contract Implementation Analyst Goal (LTG) Improve QuickDash score to no greater than 30% as measure of improved activity tolerance with right UE 12/30/22: decreased to 39% 02/18/23: 43% today, more sore after no PT for 1 week. LTG Duration 04/03/23 Two Impairment unable to reach overhead or behind her back with right shoulder Short Term Goal (STG) Patient will be able to reach use right UE to do her hair, and be able to pull pants up on right without increase in pain 12/30/22: goal progress 02/17/23: goal mostly met STG Duration 03/12/23 Snf Goal (LTG) Patient will demonstrate full ROM with right shoulder to allow her to do all usual activities LTG Duration 04/03/23 One Impairment pain right shoulder as high as 8/10 Short Term Goal (STG) decrease pain to no greater than 6/10 with usual activities 12/30/22: pain decreased to 5/10 02/17/23: goal met STG Duration goal met Contract Implementation Analyst Goal (LTG) decrease pain to no greater than 3/10 with all usual activities LTG Duration 04/03/23 Assessment Summary Assessment Pt making steady progress. Physical Therapy Plan Frequency and Duration Frequency of Treatment 2x/Week Duration of treatment (weeks) 12 Plan of Care Start Date 02/01/23 Plan of Care End Date 04/03/23 Therapeutic Interventions Therapeutic Interventions Aquatic Therapy,Home Exercise Program,Manual Therapy,Patient /Caregiver Education,Self-Care /Home Management,Soft Tissue Mobilization,Taping, Therapeutic Activities, Therapeutic Exercises Modalities Cold Pack/Ice Massage,Electric Stimulation,Hot Packs, Infrared Therapy,Iontophoresis ,Ultrasound
--- NOTE | 2023-03-10 09:45 | PT.OTN ---
Current Diagnoses Pain in right shoulder (03/10/23) Incomplete rotator cuff tear or rupture of right shoulder, not specified as traumatic (03/10/23) Superior glenoid labrum lesion of right shoulder, initial encounter (03/10/23) Physical Therapy Treatment Note PT-OP-A Visit Information Start: 10/28/22 09:19 Freq: Status: Active Protocol: Document 03/10/23 09:01 SP (Rec: 03/10/23 09:47 SP [id number]) Out-Patient Physical Therapy Visit Information Visit Information Visit Type Treatment Note Visit Start Time 09:01 Visit Stop Time 09:45 Total Visit Minutes 44 Visit Number 23 Number of DIAL MARKER Visits 1 Evaluation Information Evaluation Date 10/29/22 Precautions Precautions cardiac: [place], has done cardiac rehab lymphedema Sensitivities to Latex. PT-OP-B Current Condition Start: 10/28/22 09:19 Freq: Status: Active Protocol: Document 03/03/23 09:48 SAK (Rec: 03/03/23 10:38 SAK [id number]) Current Condition History of Current Condition Onset Date 1 1/2 years Current Complaints right History of Current Condition gradual onset right shoulder pain unknown reason. Increases with trying to reach overhead, out to side, or behind her back; pain and tingling. If tries to sleep on back both arms go numb. Unable to wear compression sleeve left due to pain right shoulder; patient previously seen by this PT for right shoulder pain and felt at that time pain at least some due to overuse right UE. Goes back to the doctor after PT ( Clifford Diggs). 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 Saw emergency department nurse. MRI right shoulder: incomplete RC tear, superior labral tear Prior Treatments and Tests Tylenol, ice, heat. Can't do UE ex at cardiac rehab, low tolerance for HEP previously instructed. Has TENS, but doesn't know how to use PT-OP-C Subjective Start: 10/28/22 09:19 Freq: Status: Active Protocol: Document 03/10/23 09:01 SP (Rec: 03/10/23 09:47 SP [id number]) OP-PT Subjective Patient Comments Patient Comments Pt reports the manual helped alot last tx so did more work in house reaching out to side so R shld sore. Pt reports the laser helped in past tx and wondering if can use as modality in future. PT-OP-E Functional Tests Start: 10/28/22 09:19 Freq: Status: Active Protocol: Document 10/29/22 09:50 SAK (Rec: 10/29/22 17:12 [facility] [id number]) Functional Tests Apley's Scratch Test Action 1- Left anterior shoulder Action 1- Right posterior shoulder Action 2- Left T2 Action 2- Right lateral neck Action 3- Left lateral hip Action 3- Right T7 PT-OP-H Neuro Start: 10/28/22 09:19 Freq: Status: Active Protocol: Document 10/29/22 09:50 SAK (Rec: 10/29/22 17:12 [facility] [id number]) Sensation Evaluation Gross Sensation Gross Sensation Left UE Impaired,Right UE Impaired Sensation Description Paresthesia Location Details Left Arm Light Touch Intact/Normal PT-OP-J Posture/Palpation/Skin Start: 10/28/22 09:19 Freq: Status: Active Protocol: Document 10/29/22 09:50 SAK (Rec: 10/29/22 17:12 [facility] [id number]) Posture Evaluation Position Sitting Head/C-Spine Posture Forward Head T-Spine Posture Increased Kyphosis L-Spine Posture Increased Lordosis Shoulder Posture (L) Rounded,(R) Rounded Scapula Posture (L) Protracted,(R) Protracted Arm Posture (L) Internally Rotated,(R) Internally Rotated Pelvis Posture Anteriorly Tilted Palpation Assessment Location RC insertion Palpation Findings Tenderness Palpation Details entire joint line painful to palpation PT-OP-K Range of Motion Start: 10/28/22 09:19 Freq: Status: Active Protocol: Document 10/29/22 09:50 SAK (Rec: 10/29/22 17:12 [facility] [id number]) Cervical Spine Range of Motion Cervical Spine Active Testing Position Sitting Flexion 50 Extension 10 Rotation Left 55 Rotation Right 55 Lateral Flexion Left 30 Lateral Flexion Right 30 Shoulder Goniometric Range of Motion Shoulder Left Shoulder ROM WFL No Testing Position Sitting Flexion 85 Extension 10 Abduction 75 External Rotation at 0 degrees Abduction 45 Right Shoulder ROM WFL Yes Comments mild limitations due to lymphedema PT-OP-L Special Tests Start: 10/28/22 09:19 Freq: Status: Active Protocol: Document 10/29/22 09:50 SAK (Rec: 10/29/22 17:12 [facility] [id number]) Special Tests Shoulder Special Tests Lift-Off Rotator Cuff Test Results positive Elevation Impingement Test Results positive Drop Arm Rotator Cuff Test Results positve PT-OP-M Strength Start: 10/28/22 09:19 Freq: Status: Active Protocol: Document 10/29/22 09:50 SAK (Rec: 10/29/22 17:12 SAK [id number]) Shoulder Strength Shoulder Manual Muscle Testing Left Flexion 4- Good- Extension 4- Good- Adduction 4 Good External Rotation 4- Good- Internal Rotation 4 Good PT-OP-Q Treatments Start: 10/28/22 09:19 Freq: Status: Active Protocol: Document 03/10/23 09:01 SP (Rec: 03/10/23 09:47 SP [id number]) Therapeutic Exercises Sidelying Exercises abd Sidelying Exercise Name HEP review: w/ humeral ER just beyond anatomical pos Side right Resistance AROM Reps/Minutes x8 reps Comments cued slow concentric inf glide , good slow eccentric painfree shld ER Sidelying Exercise Name HEP review Side right Resistance AROM Equipment Used towel under arm Reps/Minutes x10 reps Comments good slow controlled con/ecc, painfree range scapular clocks Sidelying Exercise Name 12, 6, 9 o'clock Side right Resistance manual cues Reps/Minutes 5x ea direction Comments improved scapular ROM, awareness 6<>9 during ADLs needed support Other Exercises anatomical position Side bilateral Reps/Minutes 3 SH x5, 10 SH x 5 reps Comments cued gentle scap retraction- good painfree Manual Therapy Treatment Soft Tissue Mobilization biceps Body Location R Mobilization Type Myofascial Release,Strumming, Sustained Pressure Intensity/Depth Moderate Body Position Supine Joint Mobilizations R AC jt Direction PA glide Grade I Body Position Hooklying Comments passive w/ R arm in abd 70 deg 3rd rib mob Direction R Comments w/ PROM FF tolerant range subscapularis release Comments R with passive shld abd R GH jt Comments Post./ Inf. GHJ mob. Grade I-II scapulothoracic Joint R shld Direction elevation/depression, protraction/retraction Grade II Body Position Sidelying Reps/Duration 4min Comments PROM, AAROM for kinesthetic awareness Manual Techniques PROM R shld Comments Flex/abd/ ER painfree range PT-OP-R Modalities Start: 10/28/22 09:19 Freq: Status: Active Protocol: Document 03/03/23 09:48 SAK (Rec: 03/03/23 10:38 SAK [id number]) Electric Stimulation Electric Stimulation Interferential Current (IFC) Comments not done due to patient leaving due to blood sugar issues Hot Pack/Cold Pack Treatment Cold Pack Comments not done due to patient having blood sugar issues, will do at home Infrared Treatment Treatment right GH joint line, RC ins Duration (Minutes) 6 Body Position Supine Continuous/Pulsed Continuous Program or Protocal chronic pain and stiffness tendon ligament PT-OP-T Assessment and Plan Start: 10/28/22 09:19 Freq: Status: Active Protocol: Document 03/10/23 09:01 SP (Rec: 03/10/23 09:47 SP [id number]) Physical Therapy Assessment Goals Three Impairment activity tolerance Impairment Quickdash UE disability index score60% Fpc Goal (LTG) Improve QuickDash score to no greater than 30% as measure of improved activity tolerance with right UE 12/30/22: decreased to 39% 02/18/23: 43% today, more sore after no PT for 1 week. LTG Duration 04/03/23 Two Impairment unable to reach overhead or behind her back with right shoulder Short Term Goal (STG) Patient will be able to reach use right UE to do her hair, and be able to pull pants up on right without increase in pain 12/30/22: goal progress 02/17/23: goal mostly met STG Duration 03/12/23 Fpc Goal (LTG) Patient will demonstrate full ROM with right shoulder to allow her to do all usual activities LTG Duration 04/03/23 One Impairment pain right shoulder as high as 8/10 Short Term Goal (STG) decrease pain to no greater than 6/10 with usual activities 12/30/22: pain decreased to 5/10 02/17/23: goal met STG Duration goal met Air Conditioning Manager Goal (LTG) decrease pain to no greater than 3/10 with all usual activities LTG Duration 04/03/23 Assessment Summary Assessment Pt improved scapular mobility and anatomical R GH positioning and more ER needed painfree during ABD. Good feedback subscap release and less tension anterior R shld during ther ex. Physical Therapy Plan Frequency and Duration Frequency of Treatment 2x/Week Duration of treatment (weeks) 12 Plan of Care Start Date 02/01/23 Plan of Care End Date 04/03/23 Therapeutic Interventions Therapeutic Interventions Aquatic Therapy,Home Exercise Program,Manual Therapy,Patient /Caregiver Education,Self-Care /Home Management,Soft Tissue Mobilization,Taping, Therapeutic Activities, Therapeutic Exercises Modalities Cold Pack/Ice Massage,Electric Stimulation,Hot Packs, Infrared Therapy,Iontophoresis ,Ultrasound Next Visit Focus/Plan Next Note Type Treatment Note Next Visit Plan Continue PT for right shoulder dysfunction, emphass on postural correction, scap stab , strengthening. Patient may request PT for lymphedema treatment due to difficulty managing, likely contribution to shoulder pain.
--- NOTE | 2023-03-16 10:55 | PT.OTN ---
Current Diagnoses Pain in right shoulder (03/16/23) Incomplete rotator cuff tear or rupture of right shoulder, not specified as traumatic (03/16/23) Superior glenoid labrum lesion of right shoulder, initial encounter (03/16/23) Physical Therapy Treatment Note PT-OP-A Visit Information Start: 10/28/22 09:19 Freq: Status: Active Protocol: Document 03/16/23 10:33 TH (Rec: 03/16/23 10:55 [id number]) Out-Patient Physical Therapy Visit Information Visit Information Visit Type Treatment Note Visit Start Time 09:45 Visit Stop Time 10:30 Total Visit Minutes 45 Visit Number 24 Number of PALS NURSE Visits 0 PT-OP-B Current Condition Start: 10/28/22 09:19 Freq: Status: Active Protocol: Document 03/03/23 09:48 SAK (Rec: 03/03/23 10:38 SAK [id number]) Current Condition History of Current Condition Onset Date 1 1/2 years Current Complaints right History of Current Condition gradual onset right shoulder pain unknown reason. Increases with trying to reach overhead, out to side, or behind her back; pain and tingling. If tries to sleep on back both arms go numb. Unable to wear compression sleeve left due to pain right shoulder; patient previously seen by this PT for right shoulder pain and felt at that time pain at least some due to overuse right UE. Goes back to the doctor after PT ( Clifford Diggs). 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 Saw private sector executive. MRI right shoulder: incomplete RC tear, superior labral tear Prior Treatments and Tests Tylenol, ice, heat. Can't do UE ex at cardiac rehab, low tolerance for HEP previously instructed. Has TENS, but doesn't know how to use PT-OP-C Subjective Start: 10/28/22 09:19 Freq: Status: Active Protocol: Document 03/16/23 10:33 TH (Rec: 03/16/23 10:55 TH [id number]) OP-PT Subjective Patient Comments Patient Comments Pt states right shoulder rom/ pain was a little better after last couple of treatments however she flared up right shoulder after doing exercise class. PT-OP-E Functional Tests Start: 10/28/22 09:19 Freq: Status: Active Protocol: Document 10/29/22 09:50 SAK (Rec: 10/29/22 17:12 SAK [id number]) Functional Tests Apley's Scratch Test Action 1- Left anterior shoulder Action 1- Right posterior shoulder Action 2- Left T2 Action 2- Right lateral neck Action 3- Left lateral hip Action 3- Right T7 PT-OP-H Neuro Start: 10/28/22 09:19 Freq: Status: Active Protocol: Document 10/29/22 09:50 SAK (Rec: 10/29/22 17:12 [facility] [id number]) Sensation Evaluation Gross Sensation Gross Sensation Left UE Impaired,Right UE Impaired Sensation Description Paresthesia Location Details Left Arm Light Touch Intact/Normal PT-OP-J Posture/Palpation/Skin Start: 10/28/22 09:19 Freq: Status: Active Protocol: Document 10/29/22 09:50 [facility] (Rec: 10/29/22 17:12 [facility] [id number]) Posture Evaluation Position Sitting Head/C-Spine Posture Forward Head T-Spine Posture Increased Kyphosis L-Spine Posture Increased Lordosis Shoulder Posture (L) Rounded,(R) Rounded Scapula Posture (L) Protracted,(R) Protracted Arm Posture (L) Internally Rotated,(R) Internally Rotated Pelvis Posture Anteriorly Tilted Palpation Assessment Location RC insertion Palpation Findings Tenderness Palpation Details entire joint line painful to palpation PT-OP-K Range of Motion Start: 10/28/22 09:19 Freq: Status: Active Protocol: Document 03/16/23 10:33 TH (Rec: 03/16/23 10:55 TH [id number]) Shoulder Goniometric Range of Motion Shoulder Right Flexion 90 Abduction 89 External Rotation at 0 degrees Abduction 80 Internal Rotation Behind Back (text) right buttock Comments Post manual Flex: 100 Abd: 95 ER: 85 IR: right beltline PT-OP-L Special Tests Start: 10/28/22 09:19 Freq: Status: Active Protocol: Document 10/29/22 09:50 SAK (Rec: 10/29/22 17:12 [facility] [id number]) Special Tests Shoulder Special Tests Lift-Off Rotator Cuff Test Results positive Elevation Impingement Test Results positive Drop Arm Rotator Cuff Test Results positve PT-OP-M Strength Start: 10/28/22 09:19 Freq: Status: Active Protocol: Document 10/29/22 09:50 SAK (Rec: 10/29/22 17:12 [facility] [id number]) Shoulder Strength Shoulder Manual Muscle Testing Left Flexion 4- Good- Extension 4- Good- Adduction 4 Good External Rotation 4- Good- Internal Rotation 4 Good PT-OP-Q Treatments Start: 10/28/22 09:19 Freq: Status: Active Protocol: Document 03/16/23 10:33 TH (Rec: 03/16/23 10:55 TH [id number]) Therapeutic Exercises Standing Exercises shoulder IR Comments 3 x 10 Shoulder IR stretch Comments 3x / 30 sec Manual Therapy Treatment Joint Mobilizations ER/IR stretch Comments right with right shld at 90 degrees 3rd rib mob Comments right subscapularis release Comments R with passive shld abd R GH jt Comments Post./ Inf. GHJ mob. Grade I-II PT-OP-R Modalities Start: 10/28/22 09:19 Freq: Status: Active Protocol: Document 03/03/23 09:48 SAK (Rec: 03/03/23 10:38 SAK [id number]) Electric Stimulation Electric Stimulation Interferential Current (IFC) Comments not done due to patient leaving due to blood sugar issues Hot Pack/Cold Pack Treatment Cold Pack Comments not done due to patient having blood sugar issues, will do at home Infrared Treatment Treatment right GH joint line, RC ins Duration (Minutes) 6 Body Position Supine Continuous/Pulsed Continuous Program or Protocal chronic pain and stiffness tendon ligament PT-OP-T Assessment and Plan Start: 10/28/22 09:19 Freq: Status: Active Protocol: Document 03/16/23 10:33 TH (Rec: 03/16/23 10:55 [id number]) Physical Therapy Assessment Rehab Potential Rehabilitation Potential Fair Evaluation Complexity Number of Personal Factors/Comorbidities 1-2 Number of Body Systems Impaired 3 Clinical Presentation at Evaluation Evolving Impairments Impairments Functional Activities,Pain, Posture,ROM,Strength Goals Three Impairment activity tolerance Impairment Quickdash UE disability index score60% Lab Aid Goal (LTG) Improve QuickDash score to no greater than 30% as measure of improved activity tolerance with right UE 12/30/22: decreased to 39% 02/18/23: 43% today, more sore after no PT for 1 week. LTG Duration 04/03/23 Two Impairment unable to reach overhead or behind her back with right shoulder Short Term Goal (STG) Patient will be able to reach use right UE to do her hair, and be able to pull pants up on right without increase in pain 2/1/23: goal progress 02/17/23: goal mostly met STG Duration 03/12/23 Skilled Nursing Goal (LTG) Patient will demonstrate full ROM with right shoulder to allow her to do all usual activities LTG Duration 04/03/23 One Impairment pain right shoulder as high as 8/10 Short Term Goal (STG) decrease pain to no greater than 6/10 with usual activities 12/30/22: pain decreased to 5/10 02/17/23: goal met STG Duration goal met Skilled Nursing Goal (LTG) decrease pain to no greater than 3/10 with all usual activities LTG Duration 04/03/23 Progress Towards Goals Progress Towards Goals Slow Progress - Other Progress Comments severity of RC tear, multiple medical issues Assessment Summary Assessment Right shoulder rom improved post manual. Pt appears to seize up after treatments. Gave pt. new ex. to assist with ER/IR. Physical Therapy Plan Frequency and Duration Frequency of Treatment 2x/Week Duration of treatment (weeks) 12 Plan of Care Start Date 02/01/23 Plan of Care End Date 04/03/23 Therapeutic Interventions Therapeutic Interventions Aquatic Therapy,Home Exercise Program,Manual Therapy,Patient /Caregiver Education,Self-Care /Home Management,Soft Tissue Mobilization,Taping, Therapeutic Activities, Therapeutic Exercises Modalities Cold Pack/Ice Massage,Electric Stimulation,Hot Packs, Infrared Therapy,Iontophoresis ,Ultrasound
--- NOTE | 2023-03-19 10:02 | PT.OTN ---
Current Diagnoses Pain in right shoulder (03/19/23) Incomplete rotator cuff tear or rupture of right shoulder, not specified as traumatic (03/19/23) Superior glenoid labrum lesion of right shoulder, initial encounter (03/19/23) Physical Therapy Treatment Note PT-OP-A Visit Information Start: 10/28/22 09:19 Freq: Status: Active Protocol: Document 03/19/23 09:16 NBM (Rec: 03/19/23 10:01 NBM [id number]) Out-Patient Physical Therapy Visit Information Visit Information Visit Type Treatment Note Visit Start Time 09:17 Visit Stop Time 09:55 Total Visit Minutes 38 Visit Number 25 Number of MARKETING PROFESSIONAL Visits 1 PT-OP-B Current Condition Start: 10/28/22 09:19 Freq: Status: Active Protocol: Document 03/03/23 09:48 SAK (Rec: 03/03/23 10:38 SAK [id number]) Current Condition History of Current Condition Onset Date 1 1/2 years Current Complaints right History of Current Condition gradual onset right shoulder pain unknown reason. Increases with trying to reach overhead, out to side, or behind her back; pain and tingling. If tries to sleep on back both arms go numb. Unable to wear compression sleeve left due to pain right shoulder; patient previously seen by this PT for right shoulder pain and felt at that time pain at least some due to overuse right UE. Goes back to the doctor after PT ( Clifford Diggs). 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 Saw portable irrigation operator. MRI right shoulder: incomplete RC tear, superior labral tear Prior Treatments and Tests Tylenol, ice, heat. Can't do UE ex at cardiac rehab, low tolerance for HEP previously instructed. Has TENS, but doesn't know how to use PT-OP-C Subjective Start: 10/28/22 09:19 Freq: Status: Active Protocol: Document 03/19/23 09:16 NBM (Rec: 03/19/23 10:01 NBM [id number]) OP-PT Subjective Patient Comments Patient Comments Pt reports she is sore in her hips today with the damp weather and her arthritis, and her R shoulder is sore. She states when she does her row ex she does not have a place to anchor it with a mirror. PT-OP-E Functional Tests Start: 10/28/22 09:19 Freq: Status: Active Protocol: Document 10/29/22 09:50 [facility] (Rec: 10/29/22 17:12 [facility] [id number]) Functional Tests Apley's Scratch Test Action 1- Left anterior shoulder Action 1- Right posterior shoulder Action 2- Left T2 Action 2- Right lateral neck Action 3- Left lateral hip Action 3- Right T7 PT-OP-H Neuro Start: 10/28/22 09:19 Freq: Status: Active Protocol: Document 10/29/22 09:50 SAK (Rec: 10/29/22 17:12 [facility] [id number]) Sensation Evaluation Gross Sensation Gross Sensation Left UE Impaired,Right UE Impaired Sensation Description Paresthesia Location Details Left Arm Light Touch Intact/Normal PT-OP-J Posture/Palpation/Skin Start: 10/28/22 09:19 Freq: Status: Active Protocol: Document 10/29/22 09:50 [facility] (Rec: 10/29/22 17:12 [facility] [id number]) Posture Evaluation Position Sitting Head/C-Spine Posture Forward Head T-Spine Posture Increased Kyphosis L-Spine Posture Increased Lordosis Shoulder Posture (L) Rounded,(R) Rounded Scapula Posture (L) Protracted,(R) Protracted Arm Posture (L) Internally Rotated,(R) Internally Rotated Pelvis Posture Anteriorly Tilted Palpation Assessment Location RC insertion Palpation Findings Tenderness Palpation Details entire joint line painful to palpation PT-OP-K Range of Motion Start: 10/28/22 09:19 Freq: Status: Active Protocol: Document 03/16/23 10:33 TH (Rec: 03/16/23 10:55 TH [id number]) Shoulder Goniometric Range of Motion Shoulder Right Flexion 90 Abduction 89 External Rotation at 0 degrees Abduction 80 Internal Rotation Behind Back (text) right buttock Comments Post manual Flex: 100 Abd: 95 ER: 85 IR: right beltline PT-OP-L Special Tests Start: 10/28/22 09:19 Freq: Status: Active Protocol: Document 10/29/22 09:50 [facility] (Rec: 10/29/22 17:12 [facility] [id number]) Special Tests Shoulder Special Tests Lift-Off Rotator Cuff Test Results positive Elevation Impingement Test Results positive Drop Arm Rotator Cuff Test Results positve PT-OP-M Strength Start: 10/28/22 09:19 Freq: Status: Active Protocol: Document 10/29/22 09:50 SAK (Rec: 10/29/22 17:12 [facility] [id number]) Shoulder Strength Shoulder Manual Muscle Testing Left Flexion 4- Good- Extension 4- Good- Adduction 4 Good External Rotation 4- Good- Internal Rotation 4 Good PT-OP-Q Treatments Start: 10/28/22 09:19 Freq: Status: Active Protocol: Document 03/19/23 09:16 NB (Rec: 03/19/23 10:01 NB [id number]) Therapeutic Exercises Sidelying Exercises abd Sidelying Exercise Name HEP review: w/ humeral ER just beyond anatomical pos Side right Resistance AROM Reps/Minutes x8 reps Comments cued slow concentric inf glide , good slow eccentric painfree scapular clocks Sidelying Exercise Name 12, 6, 9 o'clock Side right Resistance manual cues Reps/Minutes 5x ea direction Comments improved awareness of scap setting with cueing Standing Exercises row Equipment Used [place] Reps/Minutes 10x Comments verbal cues and manual cues for scap act and dec UT, chin tuck, glutes counter stretch Standing Exercise Name FF Reps/Minutes 5x Other Exercises anatomical position Side bilateral Reps/Minutes 3 SH x5, 10 SH x 5 reps Comments cued gentle scap retraction- good painfree Manual Therapy Treatment Soft Tissue Mobilization biceps Body Location R Mobilization Type Myofascial Release,Strumming, Sustained Pressure Intensity/Depth Moderate Body Position Supine Comments circular strokes RC insertion Body Location R distal RTC, Mobilization Type Cross-Friction Intensity/Depth Moderate Body Position Supine Joint Mobilizations scapulothoracic Joint R shld Direction elevation/depression, protraction/retraction Grade II Body Position Sidelying Reps/Duration 4min Comments PROM Manual Techniques PROM R shld Comments Flex/abd/ ER painfree range Self-Care/Home Management Treatment Education Patient Education Body Mechanics,Home Exercise Program,Pain Management, Posture Other Education Discussed importance of strengthening scapular depressors to improve UT overactivation, posture and open up shoulder joint space to improve functional mobility . HEP Review of resisted shoulder rows and pt requires many cues for chin tuck, scapular setting vs excessive lumbar hyperextension, breathing, glute activation, TrA activation, and controlled eccentric motion. Pt demonstrates improved self- awareness with tactile and visual cues and repetition. PT-OP-R Modalities Start: 10/28/22 09:19 Freq: Status: Active Protocol: Document 03/03/23 09:48 [facility] (Rec: 03/03/23 10:38 [facility] [id number]) Electric Stimulation Electric Stimulation Interferential Current (IFC) Comments not done due to patient leaving due to blood sugar issues Hot Pack/Cold Pack Treatment Cold Pack Comments not done due to patient having blood sugar issues, will do at home Infrared Treatment Treatment right GH joint line, RC ins Duration (Minutes) 6 Body Position Supine Continuous/Pulsed Continuous Program or Protocal chronic pain and stiffness tendon ligament PT-OP-T Assessment and Plan Start: 10/28/22 09:19 Freq: Status: Active Protocol: Document 03/19/23 09:16 NB (Rec: 03/19/23 10:01 [facility] [id number]) Physical Therapy Assessment Impairments Impairments Functional Activities,Pain, Posture,ROM,Strength Goals Three Impairment activity tolerance Impairment Quickdash UE disability index score60% Detention Goal (LTG) Improve QuickDash score to no greater than 30% as measure of improved activity tolerance with right UE 12/30/22: decreased to 39% 02/18/23: 43% today, more sore after no PT for 1 week. LTG Duration 04/03/23 Two Impairment unable to reach overhead or behind her back with right shoulder Short Term Goal (STG) Patient will be able to reach use right UE to do her hair, and be able to pull pants up on right without increase in pain 12/30/22: goal progress 02/17/23: goal mostly met STG Duration 03/12/23 Detention Goal (LTG) Patient will demonstrate full ROM with right shoulder to allow her to do all usual activities LTG Duration 04/03/23 One Impairment pain right shoulder as high as 8/10 Short Term Goal (STG) decrease pain to no greater than 6/10 with usual activities 12/30/22: pain decreased to 5/10 02/17/23: goal met STG Duration goal met Detention Goal (LTG) decrease pain to no greater than 3/10 with all usual activities LTG Duration 04/03/23 Assessment Summary Assessment Pt arrives w/ purse over R shoulder and R>L Upper trapezius overactivation. Reviewed cross-body purse wearing. Discussed importance of strengthening scapular depressors to improve UT overactivation, posture and open up shoulder joint space to improve functional mobility . HEP Review of resisted shoulder rows and pt requires many cues for chin tuck, scapular setting vs excessive lumbar hyperextension, breathing, glute activation, TrA activation, and controlled eccentric motion. Pt demonstrates improved self- awareness with tactile and visual cues and repetition. Palpable tightness to R UT improves with manual therapy. Pt self-corrected purse- wearing to cross-body end of session. Physical Therapy Plan Frequency and Duration Frequency of Treatment 2x/Week Duration of treatment (weeks) 12 Plan of Care Start Date 02/01/23 Plan of Care End Date 04/03/23 Therapeutic Interventions Therapeutic Interventions Aquatic Therapy,Home Exercise Program,Manual Therapy,Patient /Caregiver Education,Self-Care /Home Management,Soft Tissue Mobilization,Taping, Therapeutic Activities, Therapeutic Exercises Modalities Cold Pack/Ice Massage,Electric Stimulation,Hot Packs, Infrared Therapy,Iontophoresis ,Ultrasound Next Visit Focus/Plan Next Note Type Treatment Note Next Visit Plan Continue PT for right shoulder dysfunction, emphass on postural correction, scap stab , strengthening. Patient may request PT for lymphedema treatment due to difficulty managing, likely contribution to shoulder pain.
--- NOTE | 2023-03-23 16:12 | PT.OTN ---
Current Diagnoses Pain in right shoulder (03/23/23) Incomplete rotator cuff tear or rupture of right shoulder, not specified as traumatic (03/23/23) Superior glenoid labrum lesion of right shoulder, initial encounter (03/23/23) Physical Therapy Treatment Note PT-OP-A Visit Information Start: 10/28/22 09:19 Freq: Status: Active Protocol: Document 03/23/23 12:59 SAK (Rec: 03/23/23 13:49 [facility] [id number]) Out-Patient Physical Therapy Visit Information Visit Information Visit Type Treatment Note Visit Start Time 12:59 Visit Stop Time 13:45 Total Visit Minutes 46 Visit Number 26 Number of PACKAGE LINE OPERATOR Visits 0 PT-OP-B Current Condition Start: 10/28/22 09:19 Freq: Status: Active Protocol: Document 03/03/23 09:48 SAK (Rec: 03/03/23 10:38 [facility] [id number]) Current Condition History of Current Condition Onset Date 1 1/2 years Current Complaints right History of Current Condition gradual onset right shoulder pain unknown reason. Increases with trying to reach overhead, out to side, or behind her back; pain and tingling. If tries to sleep on back both arms go numb. Unable to wear compression sleeve left due to pain right shoulder; patient previously seen by this PT for right shoulder pain and felt at that time pain at least some due to overuse right UE. Goes back to the doctor after PT ( Clifford Diggs). 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 Saw transfer worker. MRI right shoulder: incomplete RC tear, superior labral tear Prior Treatments and Tests Tylenol, ice, heat. Can't do UE ex at cardiac rehab, low tolerance for HEP previously instructed. Has TENS, but doesn't know how to use PT-OP-C Subjective Start: 10/28/22 09:19 Freq: Status: Active Protocol: Document 03/23/23 12:59 SAK (Rec: 03/23/23 13:49 [facility] [id number]) OP-PT Subjective Patient Comments Patient Comments Shoulder feeling better, then I forget and do something to aggravates it; out to side and overhead to side most painful . C/o lymphedema getting worse UE's and LE's. PT-OP-E Functional Tests Start: 10/28/22 09:19 Freq: Status: Active Protocol: Document 10/29/22 09:50 [facility] (Rec: 10/29/22 17:12 [facility] [id number]) Functional Tests Apley's Scratch Test Action 1- Left anterior shoulder Action 1- Right posterior shoulder Action 2- Left T2 Action 2- Right lateral neck Action 3- Left lateral hip Action 3- Right T7 PT-OP-H Neuro Start: 10/28/22 09:19 Freq: Status: Active Protocol: Document 10/29/22 09:50 SAK (Rec: 10/29/22 17:12 [facility] [id number]) Sensation Evaluation Gross Sensation Gross Sensation Left UE Impaired,Right UE Impaired Sensation Description Paresthesia Location Details Left Arm Light Touch Intact/Normal PT-OP-J Posture/Palpation/Skin Start: 10/28/22 09:19 Freq: Status: Active Protocol: Document 10/29/22 09:50 SAK (Rec: 10/29/22 17:12 [facility] [id number]) Posture Evaluation Position Sitting Head/C-Spine Posture Forward Head T-Spine Posture Increased Kyphosis L-Spine Posture Increased Lordosis Shoulder Posture (L) Rounded,(R) Rounded Scapula Posture (L) Protracted,(R) Protracted Arm Posture (L) Internally Rotated,(R) Internally Rotated Pelvis Posture Anteriorly Tilted Palpation Assessment Location RC insertion Palpation Findings Tenderness Palpation Details entire joint line painful to palpation PT-OP-K Range of Motion Start: 10/28/22 09:19 Freq: Status: Active Protocol: Document 03/16/23 10:33 TH (Rec: 03/16/23 10:55 TH [id number]) Shoulder Goniometric Range of Motion Shoulder Right Flexion 90 Abduction 89 External Rotation at 0 degrees Abduction 80 Internal Rotation Behind Back (text) right buttock Comments Post manual Flex: 100 Abd: 95 ER: 85 IR: right beltline PT-OP-L Special Tests Start: 10/28/22 09:19 Freq: Status: Active Protocol: Document 10/29/22 09:50 SAK (Rec: 10/29/22 17:12 [facility] [id number]) Special Tests Shoulder Special Tests Lift-Off Rotator Cuff Test Results positive Elevation Impingement Test Results positive Drop Arm Rotator Cuff Test Results positve PT-OP-M Strength Start: 10/28/22 09:19 Freq: Status: Active Protocol: Document 10/29/22 09:50 SAK (Rec: 10/29/22 17:12 [facility] [id number]) Shoulder Strength Shoulder Manual Muscle Testing Left Flexion 4- Good- Extension 4- Good- Adduction 4 Good External Rotation 4- Good- Internal Rotation 4 Good PT-OP-Q Treatments Start: 10/28/22 09:19 Freq: Status: Active Protocol: Document 03/23/23 12:59 [facility] (Rec: 03/23/23 13:49 [facility] [id number]) Therapeutic Exercises Supine Exercises shld ER Supine Exercise Name AAROM> AROM after joint mob Reps/Minutes 10x2 FF Side right Equipment Used AAROM today Reps/Minutes x10 reps Comments max 125 degrees Sidelying Exercises abd Sidelying Exercise Name HEP review: w/ humeral ER just beyond anatomical pos Side right Resistance AROM Reps/Minutes x8 reps Comments cued slow concentric inf glide , good slow eccentric painfree scapular clocks Sidelying Exercise Name 12, 6, 9 o'clock Side right Resistance manual cues Reps/Minutes 5x ea direction Comments improved awareness of scap setting with cueing Standing Exercises hor add Standing Exercise Name at 100 deg elevation, allow band to slowly pull UE into lateral reach Reps/Minutes 10x row Equipment Used Saunders Reps/Minutes 10x Comments verbal cues and manual cues for scap act and dec UT, chin tuck, glutes shoulder ext facing away Standing Exercise Name standing, AAROM of band pulling UE into elevation Resistance L1 TB Equipment Used Saunders TB Reps/Minutes 10x shld ext Standing Exercise Name standing at wall for postural reference Equipment Used peach TB Reps/Minutes 10x5 Comments verbal and manual cues for scap act, dec UT R shld IR, ER Standing Exercise Name ER only Resistance wall for postural reference Equipment Used Saunders TB Therapeutic Activity Therapeutic Activity compression sleeve donning Comments Assisted patient to don on left UE as unable with right due to pain Manual Therapy Treatment Soft Tissue Mobilization biceps Body Location R Mobilization Type Myofascial Release,Strumming, Sustained Pressure Intensity/Depth Moderate Body Position Supine Comments circular strokes RC insertion Body Location R distal RTC, Mobilization Type Cross-Friction Intensity/Depth Moderate Body Position Supine Joint Mobilizations ER/IR stretch Comments right with right shld at 90 degrees R GH jt Comments Post./ Inf. GHJ mob. Grade II-III scapulothoracic Joint R shld Direction elevation/depression, protraction/retraction Grade II Body Position Sidelying Reps/Duration 4min Comments PROM Self-Care/Home Management Treatment Education Patient Education Body Mechanics,Home Exercise Program,Pain Management, Posture PT-OP-R Modalities Start: 10/28/22 09:19 Freq: Status: Active Protocol: Document 03/23/23 12:59 [facility] (Rec: 03/23/23 16:12 [facility] [id number]) Infrared Treatment Treatment right GH joint line, RC ins Duration (Minutes) 6 Body Position Supine Continuous/Pulsed Continuous Program or Protocal chronic pain and stiffness tendon ligament PT-OP-T Assessment and Plan Start: 10/28/22 09:19 Freq: Status: Active Protocol: Document 03/23/23 12:59 [facility] (Rec: 03/23/23 13:49 [facility] [id number]) Physical Therapy Assessment Impairments Impairments Functional Activities,Pain, Posture,ROM,Strength Goals Three Impairment activity tolerance Impairment Quickdash UE disability index score60% Senior Living Goal (LTG) Improve QuickDash score to no greater than 30% as measure of improved activity tolerance with right UE 12/30/22: decreased to 39% 02/18/23: 43% today, more sore after no PT for 1 week. LTG Duration 04/03/23 Two Impairment unable to reach overhead or behind her back with right shoulder Short Term Goal (STG) Patient will be able to reach use right UE to do her hair, and be able to pull pants up on right without increase in pain 12/30/22: goal progress 02/17/23: goal mostly met STG Duration 03/12/23 Electrical Products Sales Engineer Goal (LTG) Patient will demonstrate full ROM with right shoulder to allow her to do all usual activities LTG Duration 04/03/23 One Impairment pain right shoulder as high as 8/10 Short Term Goal (STG) decrease pain to no greater than 6/10 with usual activities 12/30/22: pain decreased to 5/10 02/17/23: goal met STG Duration goal met Senior Living Goal (LTG) decrease pain to no greater than 3/10 with all usual activities LTG Duration 04/03/23 Assessment Summary Assessment Improved supine ER and IR with shld in scapular plane after joint mobilizations. Improved inhibition of UT with row and shld ext ex. Good teetee for TB ex hor add and shld ext facing away allowing TB to pull UE into functionally challenging position, painfree with band Physical Therapy Plan Frequency and Duration Frequency of Treatment 2x/Week Duration of treatment (weeks) 12 Plan of Care Start Date 02/01/23 Plan of Care End Date 04/03/23 Therapeutic Interventions Therapeutic Interventions Aquatic Therapy,Home Exercise Program,Manual Therapy,Patient /Caregiver Education,Self-Care /Home Management,Soft Tissue Mobilization,Taping, Therapeutic Activities, Therapeutic Exercises Modalities Cold Pack/Ice Massage,Electric Stimulation,Hot Packs, Infrared Therapy,Iontophoresis ,Ultrasound Next Visit Focus/Plan Next Note Type Treatment Note Next Visit Plan Continue PT for right shoulder dysfunction, emphass on postural correction, scap stab , strengthening. Patient may request PT for lymphedema treatment due to difficulty managing, likely contribution to shoulder pain.
--- NOTE | 2023-04-06 10:48 | PT.OTRE ---
Current Diagnoses Pain in right shoulder (04/06/23) Incomplete rotator cuff tear or rupture of right shoulder, not specified as traumatic (04/06/23) Superior glenoid labrum lesion of right shoulder, initial encounter (04/06/23) Past Medical History (Last Reviewed 06/29/22 @ 15:55 by Avelino Del Real MD) Anasarca Arthritis Asthma Chest pain Chronic back pain Chronic renal insufficiency Corneal abrasion of both eyes Coronary artery disease Depression Diabetes Dry eye syndrome Hyperlipidemia Hypertension Hypokalemia Migraine GARCIA (nonalcoholic steatohepatitis) Osteoarthritis Reactive airway disease Sarcoidosis (~1996) Sciatica of right side Seasonal allergies Sleep apnea Spinal stenosis of lumbar region with radiculopathy Spondylolisthesis Vitamin B12 deficiency Surgical History (Last Reviewed 06/29/22 @ 15:55 by Avelino Del Real MD) History of 2 sections History of bilateral cataract extraction (2015) History of colonoscopy (08/16/17) Hx of appendectomy Hx of cholecystectomy Hx of heart artery stent (02/24/19) Hx of laminectomy (11/23/16) Visit Care Team Role Provider Type Slade Mccann MD Primary Care Provider Physician Specialty: Family Practice Address: [address] [place] [address] [facility] [place], [address] Email: [email or web address] Attending Provider Referring Provider Specialty: Address: Phone: Fax: Email: Physical Therapy Re-Evaluation PT-OP-A Visit Information Start: 10/28/22 09:19 Freq: Status: Active Protocol: Document 04/06/23 09:36 SAK (Rec: 04/06/23 10:48 [facility] [id number]) Out-Patient Physical Therapy Visit Information Visit Information Visit Type Treatment Note Visit Start Time 09:30 Visit Stop Time 10:30 Total Visit Minutes 60 Visit Number 27 PT-OP-B Current Condition Start: 10/28/22 09:19 Freq: Status: Active Protocol: Document 03/03/23 09:48 SAK (Rec: 03/03/23 10:38 [facility] [id number]) Current Condition History of Current Condition Onset Date 1 1/2 years Current Complaints right History of Current Condition gradual onset right shoulder pain unknown reason. Increases with trying to reach overhead, out to side, or behind her back; pain and tingling. If tries to sleep on back both arms go numb. Unable to wear compression sleeve left due to pain right shoulder; patient previously seen by this PT for right shoulder pain and felt at that time pain at least some due to overuse right UE. Goes back to the doctor after PT ( Clifford Diggs). 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 Saw prison classification counselor. MRI right shoulder: incomplete RC tear, superior labral tear Prior Treatments and Tests Tylenol, ice, heat. Can't do UE ex at cardiac rehab, low tolerance for HEP previously instructed. Has TENS, but doesn't know how to use PT-OP-C Subjective Start: 10/28/22 09:19 Freq: Status: Active Protocol: Document 04/06/23 09:36 SAK (Rec: 04/06/23 10:48 [facility] [id number]) OP-PT Subjective Patient Comments Patient Comments Was doing exercises, felt worse, stopped doing exercises , tried again and hurt again. Frustrated by difficulty doing exercise and movements right UE without pain. Has not yet gotten an order for lymphedema treatment; will contact PCP, understanding will have to discontinue treatment for right shoulder pain when we see for lymphedema. PT-OP-E Functional Tests Start: 10/28/22 09:19 Freq: Status: Active Protocol: Document 10/29/22 09:50 SAK (Rec: 10/29/22 17:12 [facility] [id number]) Functional Tests Apley's Scratch Test Action 1: The subject is instructed to touch the opposite shoulder with his/her hand. This motion checks Glenohumeral adduction, internal rotation , horizontal adduction and scapular protraction Action 2: The subject is instructed to place his/her arm overhead and reach behind the neck to touch his/her upper back. This motion checks Glenohumeral abduction, external rotation and scapular upward rotation and elevation. Action 3: The subject puts his/her hand on the lower back and reaches upward as far as possible. This motion checks glenohumeral adduction, internal rotation and scapular retraction with downward rotation Action 1- Left anterior shoulder Action 1- Right posterior shoulder Action 2- Left T2 Action 2- Right lateral neck Action 3- Left lateral hip Action 3- Right T7 PT-OP-H Neuro Start: 10/28/22 09:19 Freq: Status: Active Protocol: Document 10/29/22 09:50 [facility] (Rec: 10/29/22 17:12 [facility] [id number]) Sensation Evaluation Gross Sensation Gross Sensation Left UE Impaired,Right UE Impaired Sensation Description Paresthesia Location Details Left Arm Light Touch Intact/Normal PT-OP-J Posture/Palpation/Skin Start: 10/28/22 09:19 Freq: Status: Active Protocol: Document 10/29/22 09:50 SAK (Rec: 10/29/22 17:12 [facility] [id number]) Posture Evaluation Position Sitting Head/C-Spine Posture Forward Head T-Spine Posture Increased Kyphosis L-Spine Posture Increased Lordosis Shoulder Posture (L) Rounded,(R) Rounded Scapula Posture (L) Protracted,(R) Protracted Arm Posture (L) Internally Rotated,(R) Internally Rotated Pelvis Posture Anteriorly Tilted Palpation Assessment Location RC insertion Palpation Findings Tenderness Palpation Details entire joint line painful to palpation PT-OP-K Range of Motion Start: 10/28/22 09:19 Freq: Status: Active Protocol: Document 03/16/23 10:33 TH (Rec: 03/16/23 10:55 [id number]) Shoulder Goniometric Range of Motion Shoulder Measured in Degrees Right Flexion 90 Abduction 89 External Rotation at 0 degrees Abduction 80 Internal Rotation Behind Back (text) right buttock Comments Post manual Flex: 100 Abd: 95 ER: 85 IR: right beltline PT-OP-L Special Tests Start: 10/28/22 09:19 Freq: Status: Active Protocol: Document 10/29/22 09:50 [facility] (Rec: 10/29/22 17:12 [facility] [id number]) Special Tests Shoulder Special Tests Lift-Off Rotator Cuff Test Results positive Elevation Impingement Test Results positive Drop Arm Rotator Cuff Test Results positve PT-OP-M Strength Start: 10/28/22 09:19 Freq: Status: Active Protocol: Document 10/29/22 09:50 SAK (Rec: 10/29/22 17:12 [facility] [id number]) Shoulder Strength Shoulder Manual Muscle Testing Left Flexion 4- Good- Extension 4- Good- Adduction 4 Good External Rotation 4- Good- Internal Rotation 4 Good PT-OP-Q Treatments Start: 10/28/22 09:19 Freq: Status: Active Protocol: Document 04/06/23 09:36 SAK (Rec: 04/06/23 10:48 [facility] [id number]) Therapeutic Exercises Supine Exercises FF Side right Equipment Used AAROM today Reps/Minutes x10 reps Comments max 125 degrees Standing Exercises row Equipment Used none; mirror for visual feedback Reps/Minutes 10x Comments verbal cues and manual cues for scap act and dec UT, chin tuck, glutes shld ext Standing Exercise Name mirror for visual feedback Reps/Minutes 10x5 Comments verbal and manual cues for scap act, dec UT R shld IR, ER Standing Exercise Name ER only Resistance wall for postural reference Equipment Used mirror for visual feedback Manual Therapy Treatment Soft Tissue Mobilization biceps Body Location R Mobilization Type Myofascial Release,Strumming, Sustained Pressure Intensity/Depth Moderate Body Position Supine Comments circular strokes RC insertion Body Location R distal RTC, Mobilization Type Cross-Friction Intensity/Depth Moderate Body Position Supine Self-Care/Home Management Treatment Education Patient Education Body Mechanics,Home Exercise Program,Pain Management, Posture PT-OP-R Modalities Start: 10/28/22 09:19 Freq: Status: Active Protocol: Document 04/06/23 09:36 [facility] (Rec: 04/06/23 10:48 [facility] [id number]) Electric Stimulation Electric Stimulation Interferential Current (IFC) Body Location right shoulder Duration (Minutes) 15 Intensity 8 Target/Sweep Sweep High/Low High Patient Position Hooklying Combined With Heat/Cold Hot Pack Infrared Treatment Treatment right GH joint line, RC ins Duration (Minutes) 6 Body Position Supine Continuous/Pulsed Continuous Program or Protocal chronic pain and stiffness tendon ligament PT-OP-T Assessment and Plan Start: 10/28/22 09:19 Freq: Status: Active Protocol: Document 04/06/23 09:36 [facility] (Rec: 04/06/23 10:48 [facility] [id number]) Physical Therapy Assessment Impairments Impairments Functional Activities,Pain, Posture,ROM,Strength Goals Five Impairment compensatory movement patterns right UE Impairment overactivation of upper traps, postural dysfunction impacting right shoulder function Short Term Goal (STG) Patient will be able to self- correct posture and compensatory movements right shoulder with visual feedback of mirror STG Duration 05/23/23 Jail Goal (LTG) Patient will be able to perform HEP and do functional movements right UE with improved posture, without compensatory movements for improved right shoulder function LTG Duration 06/22/23 Three Impairment activity tolerance Impairment Quickdash UE disability index score60% Environmental Health Manager Goal (LTG) Improve QuickDash score to no greater than 30% as measure of improved activity tolerance with right UE 12/30/22: decreased to 39% 02/18/23: 43% today, more sore after no PT for 1 week. LTG Duration 06/22/23 Two Impairment unable to reach overhead or behind her back with right shoulder Short Term Goal (STG) Patient will be able to reach use right UE to do her hair, and be able to pull pants up on right without increase in pain 12/30/22: goal progress 02/17/23: goal mostly met 04/06/23: goal met STG Duration goal met Environmental Health Manager Goal (LTG) Patient will demonstrate full ROM with right shoulder to allow her to do all usual activities LTG Duration 06/22/23 One Impairment pain right shoulder as high as 8/10 Short Term Goal (STG) decrease pain to no greater than 6/10 with usual activities 12/30/22: pain decreased to 5/10 02/17/23: goal met STG Duration goal met Environmental Health Manager Goal (LTG) decrease pain to no greater than 3/10 with all usual activities 04/06/23: goal progress though variable ability, when feeling better patient with tendency to reach without thinking and reports inc in pain. Also, weight of arms from lymphedema appears to contribute to shoulder dysfunction; patient will be requesting order for lymphedema treatment from PCP LTG Duration 06/22/23 Assessment Summary Assessment After 2 weeks without PT patient reporting significant increase in pain and demonstrates decreased scapular control with increased compensatory movements. Much patient education with ther ex today with use of mirror for visual feedback with good understanding and response. Will benefit from further PT to help patient decreased her compensatory movement patterns , improve her strength and function of her right UE. Physical Therapy Plan Frequency and Duration Frequency of Treatment 2x/Week Duration of treatment (weeks) 8 Plan of Care Start Date 03/23/23 Plan of Care End Date 06/22/23 Therapeutic Interventions Therapeutic Interventions Aquatic Therapy,Home Exercise Program,Manual Therapy,Patient /Caregiver Education,Self-Care /Home Management,Soft Tissue Mobilization,Taping, Therapeutic Activities, Therapeutic Exercises Modalities Cold Pack/Ice Massage,Electric Stimulation,Hot Packs, Infrared Therapy,Iontophoresis ,Ultrasound Next Visit Focus/Plan Next Note Type Treatment Note Next Visit Plan Continue PT for right shoulder dysfunction, emphass on postural correction, scap stab , strengthening. Patient is going to request PT for lymphedema treatment due to difficulty managing, likely contribution to shoulder pain; at that time we may discontinue treatment for shoulder pain and see for lymphedema instead.
--- NOTE | 2023-04-06 10:49 | PT.OPPOC ---
Physical, Occupational & Speech Therapy At [facility] Current Diagnoses Pain in right shoulder (04/06/23) Incomplete rotator cuff tear or rupture of right shoulder, not specified as traumatic (04/06/23) Superior glenoid labrum lesion of right shoulder, initial encounter (04/06/23) Visit Care Team Role Provider Type Slade Mccann MD Primary Care Provider Physician Specialty: [facility] Address: [facility] [place], [address] Email: [email or web address] Attending Provider Referring Provider Specialty: Address: Phone: Fax: Email: Plan Of Care PT-OP-T Assessment and Plan Start: 10/28/22 09:19 Freq: Status: Active Protocol: Document 04/06/23 09:36 SAK (Rec: 04/06/23 10:48 SAK [id number]) Physical Therapy Assessment Impairments Impairments Functional Activities,Pain, Posture,ROM,Strength Goals Five Impairment compensatory movement patterns right UE Impairment overactivation of upper traps, postural dysfunction impacting right shoulder function Short Term Goal (STG) Patient will be able to self- correct posture and compensatory movements right shoulder with visual feedback of mirror STG Duration 05/23/23 [facility] Goal (LTG) Patient will be able to perform HEP and do functional movements right UE with improved posture, without compensatory movements for improved right shoulder function LTG Duration 06/22/23 Three Impairment activity tolerance Impairment Quickdash UE disability index score60% [facility] Goal (LTG) Improve QuickDash score to no greater than 30% as measure of improved activity tolerance with right UE 12/30/22: decreased to 39% 02/18/23: 43% today, more sore after no PT for 1 week. LTG Duration 06/22/23 Two Impairment unable to reach overhead or behind her back with right shoulder Short Term Goal (STG) Patient will be able to reach use right UE to do her hair, and be able to pull pants up on right without increase in pain 12/30/22: goal progress 02/17/23: goal mostly met 04/06/23: goal met STG Duration goal met [facility] Goal (LTG) Patient will demonstrate full ROM with right shoulder to allow her to do all usual activities LTG Duration 06/22/23 One Impairment pain right shoulder as high as 8/10 Short Term Goal (STG) decrease pain to no greater than 6/10 with usual activities 12/30/22: pain decreased to 5/10 02/17/23: goal met STG Duration goal met [facility] Goal (LTG) decrease pain to no greater than 3/10 with all usual activities 04/06/23: goal progress though variable ability, when feeling better patient with tendency to reach without thinking and reports inc in pain. Also, weight of arms from lymphedema appears to contribute to shoulder dysfunction; patient will be requesting order for lymphedema treatment from PCP LTG Duration 06/22/23 Assessment Summary Assessment After 2 weeks without PT patient reporting significant increase in pain and demonstrates decreased scapular control with increased compensatory movements. Much patient education with ther ex today with use of mirror for visual feedback with good understanding and response. Will benefit from further PT to help patient decreased her compensatory movement patterns , improve her strength and function of her right UE. Physical Therapy Plan Frequency and Duration Frequency of Treatment 2x/Week Duration of treatment (weeks) 8 Plan of Care Start Date 03/23/23 Plan of Care End Date 06/22/23 Therapeutic Interventions Therapeutic Interventions Aquatic Therapy,Home Exercise Program,Manual Therapy,Patient /Caregiver Education,Self-Care /Home Management,Soft Tissue Mobilization,Taping, Therapeutic Activities, Therapeutic Exercises Modalities Cold Pack/Ice Massage,Electric Stimulation,Hot Packs, Infrared Therapy,Iontophoresis ,Ultrasound Next Visit Focus/Plan Next Note Type Treatment Note Next Visit Plan Continue PT for right shoulder dysfunction, emphass on postural correction, scap stab , strengthening. Patient is going to request PT for lymphedema treatment due to difficulty managing, likely contribution to shoulder pain; at that time we may discontinue treatment for shoulder pain and see for lymphedema instead. Plan of Care Dates Plan of Care Start Date 03/23/23 Plan of Care End Date 06/22/23 Electronically Signed by: Macey Silvestre, PT 04/06/23 [id number] If you are in agreement with this Plan of Care, please return a signed and dated copy. I have reviewed this Plan of Care and certify that the skilled therapy services above are required to meet the patient?s needs. Physician Signature Date Printed Name and Credentials Clinical Instructor Signature Printed Name and Credentials
--- NOTE | 2023-04-13 16:48 | PT.OTN ---
Current Diagnoses Pain in right shoulder (04/13/23) Incomplete rotator cuff tear or rupture of right shoulder, not specified as traumatic (04/13/23) Superior glenoid labrum lesion of right shoulder, initial encounter (04/13/23) Physical Therapy Treatment Note PT-OP-A Visit Information Start: 10/28/22 09:19 Freq: Status: Active Protocol: Document 04/13/23 09:46 SAK (Rec: 04/13/23 10:30 SAK [id number]) Out-Patient Physical Therapy Visit Information Visit Information Visit Type Treatment Note Visit Start Time 09:47 Visit Stop Time 10:45 Total Visit Minutes 58 Visit Number 28 PT-OP-B Current Condition Start: 10/28/22 09:19 Freq: Status: Active Protocol: Document 03/03/23 09:48 SAK (Rec: 03/03/23 10:38 SAK [id number]) Current Condition History of Current Condition Onset Date 1 1/2 years Current Complaints right History of Current Condition gradual onset right shoulder pain unknown reason. Increases with trying to reach overhead, out to side, or behind her back; pain and tingling. If tries to sleep on back both arms go numb. Unable to wear compression sleeve left due to pain right shoulder; patient previously seen by this PT for right shoulder pain and felt at that time pain at least some due to overuse right UE. Goes back to the doctor after PT ( Clifford Diggs). 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 Saw transplant surgeon. MRI right shoulder: incomplete RC tear, superior labral tear Prior Treatments and Tests Tylenol, ice, heat. Can't do UE ex at cardiac rehab, low tolerance for HEP previously instructed. Has TENS, but doesn't know how to use PT-OP-C Subjective Start: 10/28/22 09:19 Freq: Status: Active Protocol: Document 04/13/23 09:46 SAK (Rec: 04/13/23 10:30 SAK [id number]) OP-PT Subjective Patient Comments Patient Comments Shoulder hurting because reached out to side and had sharp pain, also was moving a lot of things cleaning out her garage and overall increased soreness from that. Still has difficulty doing exercises without pain PT-OP-E Functional Tests Start: 10/28/22 09:19 Freq: Status: Active Protocol: Document 10/29/22 09:50 SAK (Rec: 10/29/22 17:12 [facility] [id number]) Functional Tests Apley's Scratch Test Action 1- Left anterior shoulder Action 1- Right posterior shoulder Action 2- Left T2 Action 2- Right lateral neck Action 3- Left lateral hip Action 3- Right T7 PT-OP-H Neuro Start: 10/28/22 09:19 Freq: Status: Active Protocol: Document 10/29/22 09:50 SAK (Rec: 10/29/22 17:12 [facility] [id number]) Sensation Evaluation Gross Sensation Gross Sensation Left UE Impaired,Right UE Impaired Sensation Description Paresthesia Location Details Left Arm Light Touch Intact/Normal PT-OP-J Posture/Palpation/Skin Start: 10/28/22 09:19 Freq: Status: Active Protocol: Document 10/29/22 09:50 SAK (Rec: 10/29/22 17:12 [facility] [id number]) Posture Evaluation Position Sitting Head/C-Spine Posture Forward Head T-Spine Posture Increased Kyphosis L-Spine Posture Increased Lordosis Shoulder Posture (L) Rounded,(R) Rounded Scapula Posture (L) Protracted,(R) Protracted Arm Posture (L) Internally Rotated,(R) Internally Rotated Pelvis Posture Anteriorly Tilted Palpation Assessment Location RC insertion Palpation Findings Tenderness Palpation Details entire joint line painful to palpation PT-OP-K Range of Motion Start: 10/28/22 09:19 Freq: Status: Active Protocol: Document 03/16/23 10:33 TH (Rec: 03/16/23 10:55 TH [id number]) Shoulder Goniometric Range of Motion Shoulder Right Flexion 90 Abduction 89 External Rotation at 0 degrees Abduction 80 Internal Rotation Behind Back (text) right buttock Comments Post manual Flex: 100 Abd: 95 ER: 85 IR: right beltline PT-OP-L Special Tests Start: 10/28/22 09:19 Freq: Status: Active Protocol: Document 10/29/22 09:50 SAK (Rec: 10/29/22 17:12 [facility] [id number]) Special Tests Shoulder Special Tests Lift-Off Rotator Cuff Test Results positive Elevation Impingement Test Results positive Drop Arm Rotator Cuff Test Results positve PT-OP-M Strength Start: 10/28/22 09:19 Freq: Status: Active Protocol: Document 10/29/22 09:50 SAK (Rec: 10/29/22 17:12 [facility] [id number]) Shoulder Strength Shoulder Manual Muscle Testing Left Flexion 4- Good- Extension 4- Good- Adduction 4 Good External Rotation 4- Good- Internal Rotation 4 Good PT-OP-Q Treatments Start: 10/28/22 09:19 Freq: Status: Active Protocol: Document 04/13/23 09:46 [facility] (Rec: 04/13/23 10:30 [facility] [id number]) Therapeutic Exercises Supine Exercises shoulder ab Supine Exercise Name AAROM Reps/Minutes 10x shld ER Supine Exercise Name AAROM> AROM after joint mob Reps/Minutes 10x2 hor ab Resistance L1 TB Reps/Minutes 10x Comments cues for scapular retraction, elbows extended serratus pres Side bilateral Equipment Used dowel Reps/Minutes 10x Comments small range, tolerant reps, least painful FF Side right Equipment Used AAROM today Reps/Minutes x10 reps Comments max 135 degrees Sitting Exercises shoulder IR Equipment Used L1 TB, mirror for visual feedback Reps/Minutes 10x shoulder ER Equipment Used L1 TB, mirror for visual feedback Reps/Minutes 10x Standing Exercises shoulder IR Equipment Used mirror Comments 3 x 10 row Equipment Used none; mirror for visual feedback Reps/Minutes 10x, 10x2 with L1 TB with tactile and verbal cues Comments verbal cues and manual cues for scap act and dec UT, chin tuck, glutes shoulder ext facing away Standing Exercise Name HEP should add Standing Exercise Name HEP shld ext Standing Exercise Name mirror for visual feedback Reps/Minutes 10x5 Comments verbal and manual cues for scap act, dec UT Manual Therapy Treatment Soft Tissue Mobilization RC insertion Body Location R distal RTC, Mobilization Type Cross-Friction Intensity/Depth Moderate Body Position Supine Joint Mobilizations R GH jt Comments Post./ Inf. GHJ mob. Grade II-III Taping right shoulder Body Location R shld Treatment Focus pain management Type of Tape kinesiotape Skin Inspection intact Comments x pattern (2 I strips) RC insertion due to patient request not tape back of arm or spine due to difficulty removing Self-Care/Home Management Treatment Education Patient Education Body Mechanics,Home Exercise Program,Pain Management, Posture Other Education use of mirror to monitor overactivation of UT PT-OP-R Modalities Start: 10/28/22 09:19 Freq: Status: Active Protocol: Document 04/13/23 09:46 [facility] (Rec: 04/13/23 10:30 [facility] [id number]) Electric Stimulation Electric Stimulation Interferential Current (IFC) Body Location right shoulder Duration (Minutes) 15 Intensity 10 Target/Sweep Sweep High/Low High Patient Position Hooklying Combined With Heat/Cold Hot Pack Infrared Treatment Treatment right GH joint line, RC ins Duration (Minutes) 6 Body Position Supine Continuous/Pulsed Continuous Program or Protocal chronic pain and stiffness tendon ligament PT-OP-T Assessment and Plan Start: 10/28/22 09:19 Freq: Status: Active Protocol: Document 04/13/23 09:46 [facility] (Rec: 04/13/23 10:30 [facility] [id number]) Physical Therapy Assessment Goals Five Impairment compensatory movement patterns right UE Impairment overactivation of upper traps, postural dysfunction impacting right shoulder function Short Term Goal (STG) Patient will be able to self- correct posture and compensatory movements right shoulder with visual feedback of mirror STG Duration 05/23/23 [facility] Goal (LTG) Patient will be able to perform HEP and do functional movements right UE with improved posture, without compensatory movements for improved right shoulder function LTG Duration 06/22/23 Three Impairment activity tolerance Impairment Quickdash UE disability index score60% [facility] Goal (LTG) Improve QuickDash score to no greater than 30% as measure of improved activity tolerance with right UE 12/30/22: decreased to 39% 02/18/23: 43% today, more sore after no PT for 1 week. LTG Duration 06/22/23 Two Impairment unable to reach overhead or behind her back with right shoulder Short Term Goal (STG) Patient will be able to reach use right UE to do her hair, and be able to pull pants up on right without increase in pain 12/30/22: goal progress 02/17/23: goal mostly met 04/06/23: goal met STG Duration goal met [facility] Goal (LTG) Patient will demonstrate full ROM with right shoulder to allow her to do all usual activities LTG Duration 06/22/23 One Impairment pain right shoulder as high as 8/10 Short Term Goal (STG) decrease pain to no greater than 6/10 with usual activities 12/30/22: pain decreased to 5/10 02/17/23: goal met STG Duration goal met [facility] Goal (LTG) decrease pain to no greater than 3/10 with all usual activities 04/06/23: goal progress though variable ability, when feeling better patient with tendency to reach without thinking and reports inc in pain. Also, weight of arms from lymphedema appears to contribute to shoulder dysfunction; patient will be requesting order for lymphedema treatment from PCP LTG Duration 06/22/23 Assessment Summary Assessment kinesiotape modified due to patient request due to difficulty removing from behind her shoulder and thorax . Pain increased after overactivity of liftin and moving things out of garage Patient continues to have difficulty with overactivation of UT. Again encouraged use of mirrror for visual feedback due to imporoved performance, otherwise performs ex too fast and with compensation. Encouraged to make follow-up appointment with physician due to persistent pain. Pain dec 1-2 days after PT treatment. Physical Therapy Plan Frequency and Duration Frequency of Treatment 2x/Week Duration of treatment (weeks) 8 Plan of Care Start Date 03/23/23 Plan of Care End Date 06/22/23 Therapeutic Interventions Therapeutic Interventions Aquatic Therapy,Home Exercise Program,Manual Therapy,Patient /Caregiver Education,Self-Care /Home Management,Soft Tissue Mobilization,Taping, Therapeutic Activities, Therapeutic Exercises Modalities Cold Pack/Ice Massage,Electric Stimulation,Hot Packs, Infrared Therapy,Iontophoresis ,Ultrasound Next Visit Focus/Plan Next Note Type Treatment Note Next Visit Plan Continue PT for right shoulder dysfunction, emphass on postural correction, scap stab , strengthening. Patient is going to request PT for lymphedema treatment due to difficulty managing, likely contribution to shoulder pain; at that time we may discontinue treatment for shoulder pain and see for lymphedema instead.
--- NOTE | 2023-04-15 16:26 | PT.OTN ---
Current Diagnoses Pain in right shoulder (04/15/23) Incomplete rotator cuff tear or rupture of right shoulder, not specified as traumatic (04/15/23) Superior glenoid labrum lesion of right shoulder, initial encounter (04/15/23) Physical Therapy Treatment Note PT-OP-A Visit Information Start: 10/28/22 09:19 Freq: Status: Active Protocol: Document 04/15/23 13:15 SAK (Rec: 04/15/23 14:02 [facility] [id number]) Out-Patient Physical Therapy Visit Information Visit Information Visit Type Treatment Note Visit Start Time 13:15 Visit Number 29 PT-OP-B Current Condition Start: 10/28/22 09:19 Freq: Status: Active Protocol: Document 03/03/23 09:48 SAK (Rec: 03/03/23 10:38 [facility] [id number]) Current Condition History of Current Condition Onset Date 1 1/2 years Current Complaints right History of Current Condition gradual onset right shoulder pain unknown reason. Increases with trying to reach overhead, out to side, or behind her back; pain and tingling. If tries to sleep on back both arms go numb. Unable to wear compression sleeve left due to pain right shoulder; patient previously seen by this PT for right shoulder pain and felt at that time pain at least some due to overuse right UE. Goes back to the doctor after PT ( Clifford Diggs). 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 Saw lap runner. MRI right shoulder: incomplete RC tear, superior labral tear Prior Treatments and Tests Tylenol, ice, heat. Can't do UE ex at cardiac rehab, low tolerance for HEP previously instructed. Has TENS, but doesn't know how to use PT-OP-C Subjective Start: 10/28/22 09:19 Freq: Status: Active Protocol: Document 04/15/23 13:15 SAK (Rec: 04/15/23 14:02 [facility] [id number]) OP-PT Subjective Patient Comments Patient Comments [place] better after PT, until forgets and reaches too quickly. Compliant to HEP. Likes laser and kinesiotape; feels beneficial. Trying to do ex slow and controlled. Doctor is referring her to lap runner. PT-OP-E Functional Tests Start: 10/28/22 09:19 Freq: Status: Active Protocol: Document 10/29/22 09:50 SAK (Rec: 10/29/22 17:12 [facility] [id number]) Functional Tests Apley's Scratch Test Action 1- Left anterior shoulder Action 1- Right posterior shoulder Action 2- Left T2 Action 2- Right lateral neck Action 3- Left lateral hip Action 3- Right T7 PT-OP-H Neuro Start: 10/28/22 09:19 Freq: Status: Active Protocol: Document 10/29/22 09:50 SAK (Rec: 10/29/22 17:12 [facility] [id number]) Sensation Evaluation Gross Sensation Gross Sensation Left UE Impaired,Right UE Impaired Sensation Description Paresthesia Location Details Left Arm Light Touch Intact/Normal PT-OP-J Posture/Palpation/Skin Start: 10/28/22 09:19 Freq: Status: Active Protocol: Document 10/29/22 09:50 SAK (Rec: 10/29/22 17:12 [facility] [id number]) Posture Evaluation Position Sitting Head/C-Spine Posture Forward Head T-Spine Posture Increased Kyphosis L-Spine Posture Increased Lordosis Shoulder Posture (L) Rounded,(R) Rounded Scapula Posture (L) Protracted,(R) Protracted Arm Posture (L) Internally Rotated,(R) Internally Rotated Pelvis Posture Anteriorly Tilted Palpation Assessment Location RC insertion Palpation Findings Tenderness Palpation Details entire joint line painful to palpation PT-OP-K Range of Motion Start: 10/28/22 09:19 Freq: Status: Active Protocol: Document 03/16/23 10:33 TH (Rec: 03/16/23 10:55 [facility] [id number]) Shoulder Goniometric Range of Motion Shoulder Right Flexion 90 Abduction 89 External Rotation at 0 degrees Abduction 80 Internal Rotation Behind Back (text) right buttock Comments Post manual Flex: 100 Abd: 95 ER: 85 IR: right beltline PT-OP-L Special Tests Start: 10/28/22 09:19 Freq: Status: Active Protocol: Document 10/29/22 09:50 SAK (Rec: 10/29/22 17:12 [facility] [id number]) Special Tests Shoulder Special Tests Lift-Off Rotator Cuff Test Results positive Elevation Impingement Test Results positive Drop Arm Rotator Cuff Test Results positve PT-OP-M Strength Start: 10/28/22 09:19 Freq: Status: Active Protocol: Document 10/29/22 09:50 SAK (Rec: 10/29/22 17:12 [facility] [id number]) Shoulder Strength Shoulder Manual Muscle Testing Left Flexion 4- Good- Extension 4- Good- Adduction 4 Good External Rotation 4- Good- Internal Rotation 4 Good PT-OP-Q Treatments Start: 10/28/22 09:19 Freq: Status: Active Protocol: Document 04/13/23 09:46 [facility] (Rec: 04/13/23 10:30 [facility] [id number]) Therapeutic Exercises Supine Exercises shoulder ab Supine Exercise Name AAROM Reps/Minutes 10x shld ER Supine Exercise Name AAROM> AROM after joint mob Reps/Minutes 10x2 hor ab Resistance L1 TB Reps/Minutes 10x Comments cues for scapular retraction, elbows extended serratus pres Side bilateral Equipment Used dowel Reps/Minutes 10x Comments small range, tolerant reps, least painful FF Side right Equipment Used AAROM today Reps/Minutes x10 reps Comments max 135 degrees Sitting Exercises shoulder IR Equipment Used L1 TB, mirror for visual feedback Reps/Minutes 10x shoulder ER Equipment Used L1 TB, mirror for visual feedback Reps/Minutes 10x Standing Exercises shoulder IR Equipment Used mirror Comments 3 x 10 row Equipment Used none; mirror for visual feedback Reps/Minutes 10x, 10x2 with L1 TB with tactile and verbal cues Comments verbal cues and manual cues for scap act and dec UT, chin tuck, glutes shoulder ext facing away Standing Exercise Name HEP should add Standing Exercise Name HEP shld ext Standing Exercise Name mirror for visual feedback Reps/Minutes 10x5 Comments verbal and manual cues for scap act, dec UT Manual Therapy Treatment Soft Tissue Mobilization RC insertion Body Location R distal RTC, Mobilization Type Cross-Friction Intensity/Depth Moderate Body Position Supine Joint Mobilizations R GH jt Comments Post./ Inf. GHJ mob. Grade II-III Taping right shoulder Body Location R shld Treatment Focus pain management Type of Tape kinesiotape Skin Inspection intact Comments x pattern (2 I strips) RC insertion due to patient request not tape back of arm or spine due to difficulty removing Self-Care/Home Management Treatment Education Patient Education Body Mechanics,Home Exercise Program,Pain Management, Posture Other Education use of mirror to monitor overactivation of UT PT-OP-R Modalities Start: 10/28/22 09:19 Freq: Status: Active Protocol: Document 04/15/23 13:15 [facility] (Rec: 04/15/23 14:02 [facility] [id number]) Electric Stimulation Electric Stimulation Interferential Current (IFC) Body Location right shoulder Duration (Minutes) 15 Intensity 10 Target/Sweep Sweep High/Low High Patient Position Hooklying Combined With Heat/Cold Hot Pack PT-OP-T Assessment and Plan Start: 10/28/22 09:19 Freq: Status: Active Protocol: Document 04/15/23 13:15 [facility] (Rec: 04/15/23 14:02 [facility] [id number]) Physical Therapy Assessment Goals Five Impairment compensatory movement patterns right UE Impairment overactivation of upper traps, postural dysfunction impacting right shoulder function Short Term Goal (STG) Patient will be able to self- correct posture and compensatory movements right shoulder with visual feedback of mirror STG Duration 05/23/23 Business Process Associate Goal (LTG) Patient will be able to perform HEP and do functional movements right UE with improved posture, without compensatory movements for improved right shoulder function LTG Duration 06/22/23 Three Impairment activity tolerance Impairment Quickdash UE disability index score60% Business Process Associate Goal (LTG) Improve QuickDash score to no greater than 30% as measure of improved activity tolerance with right UE 12/30/22: decreased to 39% 02/18/23: 43% today, more sore after no PT for 1 week. LTG Duration 06/22/23 Two Impairment unable to reach overhead or behind her back with right shoulder Short Term Goal (STG) Patient will be able to reach use right UE to do her hair, and be able to pull pants up on right without increase in pain 12/30/22: goal progress 02/17/23: goal mostly met 04/06/23: goal met STG Duration goal met Detention Goal (LTG) Patient will demonstrate full ROM with right shoulder to allow her to do all usual activities LTG Duration 06/22/23 One Impairment pain right shoulder as high as 8/10 Short Term Goal (STG) decrease pain to no greater than 6/10 with usual activities 12/30/22: pain decreased to 5/10 02/17/23: goal met STG Duration goal met Detention Goal (LTG) decrease pain to no greater than 3/10 with all usual activities 04/06/23: goal progress though variable ability, when feeling better patient with tendency to reach without thinking and reports inc in pain. 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 Feel her lipolymphedema highly impacting her ability to recover from PT for her shoulder and is causing her other medical and functional issues as well. When patient obtains order for lymphedema treatment feel it will be appropriate to discontinue PT for her shoulder pain and initiate PT with emphasis on lipolymphedema management which should help her shoulder as well. Physical Therapy Plan Frequency and Duration Frequency of Treatment 2x/Week Duration of treatment (weeks) 8 Plan of Care Start Date 03/23/23 Plan of Care End Date 06/22/23 Therapeutic Interventions Therapeutic Interventions Aquatic Therapy,Home Exercise Program,Manual Therapy,Patient /Caregiver Education,Self-Care /Home Management,Soft Tissue Mobilization,Taping, Therapeutic Activities, Therapeutic Exercises Modalities Cold Pack/Ice Massage,Electric Stimulation,Hot Packs, Infrared Therapy,Iontophoresis ,Ultrasound Next Visit Focus/Plan Next Note Type Re-Evaluation Next Visit Plan Continue PT for right shoulder dysfunction, emphass on postural correction, scap stab , strengthening. Patient is going to request PT for lymphedema treatment due to difficulty managing, likely contribution to shoulder pain; at that time we may discontinue treatment for shoulder pain and see for lymphedema instead.
--- NOTE | 2023-04-20 16:04 | PT.OTRE ---
Current Diagnoses Lymphedema, not elsewhere classified (04/20/23) Pain in right shoulder (04/20/23) Incomplete rotator cuff tear or rupture of right shoulder, not specified as traumatic (04/20/23) Superior glenoid labrum lesion of right shoulder, initial encounter (04/20/23) Past Medical History (Last Reviewed 06/29/22 @ 15:55 by Avelino Del Real MD) Anasarca Arthritis Asthma Chest pain Chronic back pain Chronic renal insufficiency Corneal abrasion of both eyes Coronary artery disease Depression Diabetes Dry eye syndrome Hyperlipidemia Hypertension Hypokalemia Migraine GARCIA (nonalcoholic steatohepatitis) Osteoarthritis Reactive airway disease Sarcoidosis (~1996) Sciatica of right side Seasonal allergies Sleep apnea Spinal stenosis of lumbar region with radiculopathy Spondylolisthesis Vitamin B12 deficiency Surgical History (Last Reviewed 06/29/22 @ 15:55 by Avelino Del Real MD) History of 2 sections History of bilateral cataract extraction (2015) History of colonoscopy (08/16/17) Hx of appendectomy Hx of cholecystectomy Hx of heart artery stent (02/24/19) Hx of laminectomy (11/23/16) Visit Care Team Role Provider Type Slade Mccann MD Primary Care Provider Physician Specialty: Family Practice Address: [address] [place] [address], [id number] Email: [email or web address] Attending Provider Referring Provider Specialty: Address: Phone: Fax: Email: Physical Therapy Re-Evaluation PT-OP-A Visit Information Start: 10/28/22 09:19 Freq: Status: Active Protocol: Document 04/20/23 09:32 SAK (Rec: 04/20/23 10:17 SAK [id number]) Out-Patient Physical Therapy Visit Information Visit Information Visit Type Re-Evaluation Visit Start Time 09:32 Visit Stop Time 10:18 Total Visit Minutes 46 Visit Number 30 Precautions Precautions cardiac: MO, has done cardiac rehab lymphedema Sensitivities to Latex. PT-OP-B Current Condition Start: 10/28/22 09:19 Freq: Status: Active Protocol: Document 03/03/23 09:48 SAK (Rec: 03/03/23 10:38 SAK [id number]) Current Condition History of Current Condition Onset Date 1 1/2 years Current Complaints right History of Current Condition gradual onset right shoulder pain unknown reason. Increases with trying to reach overhead, out to side, or behind her back; pain and tingling. If tries to sleep on back both arms go numb. Unable to wear compression sleeve left due to pain right shoulder; patient previously seen by this PT for right shoulder pain and felt at that time pain at least some due to overuse right UE. Goes back to the doctor after PT ( Clifford Diggs). 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 Saw specialist physicians. MRI right shoulder: incomplete RC tear, superior labral tear Prior Treatments and Tests Tylenol, ice, heat. Can't do UE ex at cardiac rehab, low tolerance for HEP previously instructed. Has TENS, but doesn't know how to use PT-OP-C Subjective Start: 10/28/22 09:19 Freq: Status: Active Protocol: Document 04/20/23 09:32 [facility] (Rec: 04/20/23 10:17 [facility] [id number]) OP-PT Subjective Patient Comments Patient Comments Patient now referred to PT for lymphedema UEs and LE's, severe. Has had swelling in UE's and LE's as long as I can remember, started left UE. Being referred to specialist physicians as well to investigate inflammatory possibility. Patient c/o painful lumps arms and legs, worst in left UE. Also c/o diastasis recti; was diagnosed but nothing ever done 40+ yrs ago, feels abdomen continues to get bigger, states she eats small amounts of food but continues to get bigger. Patient Questionnaires Lymphedema Life Impact Score Lymphedema Score 89 PT-OP-E Functional Tests Start: 10/28/22 09:19 Freq: Status: Active Protocol: Document 10/29/22 09:50 [facility] (Rec: 10/29/22 17:12 [facility] [id number]) Functional Tests Marcey's Scratch Test Action 1: The subject is instructed to touch the opposite shoulder with his/her hand. This motion checks Glenohumeral adduction, internal rotation , horizontal adduction and scapular protraction Action 2: The subject is instructed to place his/her arm overhead and reach behind the neck to touch his/her upper back. This motion checks Glenohumeral abduction, external rotation and scapular upward rotation and elevation. Action 3: The subject puts his/her hand on the lower back and reaches upward as far as possible. This motion checks glenohumeral adduction, internal rotation and scapular retraction with downward rotation Action 1- Left anterior shoulder Action 1- Right posterior shoulder Action 2- Left T2 Action 2- Right lateral neck Action 3- Left lateral hip Action 3- Right T7 PT-OP-H Neuro Start: 10/28/22 09:19 Freq: Status: Active Protocol: Document 10/29/22 09:50 SAK (Rec: 10/29/22 17:12 [facility] [id number]) Sensation Evaluation Gross Sensation Gross Sensation Left UE Impaired,Right UE Impaired Sensation Description Paresthesia Location Details Left Arm Light Touch Intact/Normal PT-OP-J Posture/Palpation/Skin Start: 10/28/22 09:19 Freq: Status: Active Protocol: Document 10/29/22 09:50 SAK (Rec: 10/29/22 17:12 [facility] [id number]) Posture Evaluation Position Sitting Head/C-Spine Posture Forward Head T-Spine Posture Increased Kyphosis L-Spine Posture Increased Lordosis Shoulder Posture (L) Rounded,(R) Rounded Scapula Posture (L) Protracted,(R) Protracted Arm Posture (L) Internally Rotated,(R) Internally Rotated Pelvis Posture Anteriorly Tilted Palpation Assessment Location RC insertion Palpation Findings Tenderness Palpation Details entire joint line painful to palpation PT-OP-K Range of Motion Start: 10/28/22 09:19 Freq: Status: Active Protocol: Document 03/16/23 10:33 TH (Rec: 03/16/23 10:55 TH [id number]) Shoulder Goniometric Range of Motion Shoulder Measured in Degrees Right Flexion 90 Abduction 89 External Rotation at 0 degrees Abduction 80 Internal Rotation Behind Back (text) right buttock Comments Post manual Flex: 100 Abd: 95 ER: 85 IR: right beltline PT-OP-L Special Tests Start: 10/28/22 09:19 Freq: Status: Active Protocol: Document 10/29/22 09:50 SAK (Rec: 10/29/22 17:12 [facility] [id number]) Special Tests Shoulder Special Tests Lift-Off Rotator Cuff Test Results positive Elevation Impingement Test Results positive Drop Arm Rotator Cuff Test Results positve PT-OP-M Strength Start: 10/28/22 09:19 Freq: Status: Active Protocol: Document 10/29/22 09:50 SAK (Rec: 10/29/22 17:12 [facility] [id number]) Shoulder Strength Shoulder Manual Muscle Testing Left Flexion 4- Good- Extension 4- Good- Adduction 4 Good External Rotation 4- Good- Internal Rotation 4 Good PT-OP-N Lymphedema Start: 04/20/23 09:31 Freq: Status: Active Protocol: Document 04/20/23 09:32 [facility] (Rec: 04/20/23 10:17 [facility] [id number]) Lymphedema Measurements Upper Extremity Circumference Measurements Left Affected MCP 20.2 cm Dorsum of Hand 21 cm Wrist 20 cm 5 cm From Wrist Crease 27.3 cm 10 cm From Wrist Crease 32.5 cm 15 cm From Wrist Crease 35.6 cm 20 cm From Wrist Crease 37 cm 25 cm From Wrist Crease 45.2 cm 30 cm From Wrist Crease 51.4 cm 35 cm From Wrist Crease 50.4 cm 40 cm From Wrist Crease 45.5 cm Elbow Joint 36.3 cm Axilla 44.5 cm - 41.5 wrist to armpit Right Affected MCP 19.3 cm Dorsum of Hand 20.8 cm Wrist 18.6 cm 5 cm From Wrist Crease 24.2 cm 10 cm From Wrist Crease 28.8 cm 15 cm From Wrist Crease 31.9 cm 20 cm From Wrist Crease 32.9 cm 25 cm From Wrist Crease 41.7 cm 30 cm From Wrist Crease 48.4 cm 35 cm From Wrist Crease 48.6 cm 40 cm From Wrist Crease 45.3 cm Elbow Joint 32.9 cm Axilla 45.4 cm Lower Extremity Circumference Measurements Right Affected MT Heads 23.2 cm Mid-foot 23.8 cm Medial Malleolus 28.3 cm 10 cm From Medial Malleolus 28.5 cm 20 cm From Medial Malleolus 43 cm 30 cm From Medial Malleolus 44.5 cm 40 cm From Medial Malleolus 65.3 cm 50 cm From Medial Malleolus 72 cm Knee Joint 47.1 cm - groin 85.5 Left Affected MT Heads 23.3 cm Mid-foot 24.5 cm Medial Malleolus 25.2 cm 10 cm From Medial Malleolus 27 cm 20 cm From Medial Malleolus 40.3 cm 30 cm From Medial Malleolus 43.7 cm 40 cm From Medial Malleolus 54.8 cm 50 cm From Medial Malleolus 68.8 cm 60 cm From Medial Malleolus 73.5 cm Knee Joint 51.1 cm - groin 81.8 Comments Lymphedema Comments abdomen 122.3 hips (widest part) 146.0 PT-OP-Q Treatments Start: 10/28/22 09:19 Freq: Status: Active Protocol: Document 04/13/23 09:46 [facility] (Rec: 04/13/23 10:30 [facility] [id number]) Therapeutic Exercises Supine Exercises shoulder ab Supine Exercise Name AAROM Reps/Minutes 10x shld ER Supine Exercise Name AAROM> AROM after joint mob Reps/Minutes 10x2 hor ab Resistance L1 TB Reps/Minutes 10x Comments cues for scapular retraction, elbows extended serratus pres Side bilateral Equipment Used dowel Reps/Minutes 10x Comments small range, tolerant reps, least painful FF Side right Equipment Used AAROM today Reps/Minutes x10 reps Comments max 135 degrees Sitting Exercises shoulder IR Equipment Used L1 TB, mirror for visual feedback Reps/Minutes 10x shoulder ER Equipment Used L1 TB, mirror for visual feedback Reps/Minutes 10x Standing Exercises shoulder IR Equipment Used mirror Comments 3 x 10 row Equipment Used none; mirror for visual feedback Reps/Minutes 10x, 10x2 with L1 TB with tactile and verbal cues Comments verbal cues and manual cues for scap act and dec UT, chin tuck, glutes shoulder ext facing away Standing Exercise Name HEP should add Standing Exercise Name HEP shld ext Standing Exercise Name mirror for visual feedback Reps/Minutes 10x5 Comments verbal and manual cues for scap act, dec UT Manual Therapy Treatment Soft Tissue Mobilization RC insertion Body Location R distal RTC, Mobilization Type Cross-Friction Intensity/Depth Moderate Body Position Supine Joint Mobilizations R GH jt Comments Post./ Inf. GHJ mob. Grade II-III Taping right shoulder Body Location R shld Treatment Focus pain management Type of Tape kinesiotape Skin Inspection intact Comments x pattern (2 I strips) RC insertion due to patient request not tape back of arm or spine due to difficulty removing Self-Care/Home Management Treatment Education Patient Education Body Mechanics,Home Exercise Program,Pain Management, Posture Other Education use of mirror to monitor overactivation of UT PT-OP-R Modalities Start: 10/28/22 09:19 Freq: Status: Active Protocol: Document 04/15/23 13:15 [facility] (Rec: 04/15/23 14:02 [facility] [id number]) Electric Stimulation Electric Stimulation Interferential Current (IFC) Body Location right shoulder Duration (Minutes) 15 Intensity 10 Target/Sweep Sweep High/Low High Patient Position Hooklying Combined With Heat/Cold Hot Pack PT-OP-T Assessment and Plan Start: 10/28/22 09:19 Freq: Status: Active Protocol: Document 04/20/23 09:32 [facility] (Rec: 04/20/23 10:17 [facility] [id number]) Physical Therapy Assessment Goals Five Impairment compensatory movement patterns right UE Impairment overactivation of upper traps, postural dysfunction impacting right shoulder function Short Term Goal (STG) Patient will be able to self- correct posture and compensatory movements right shoulder with visual feedback of mirror STG Duration 05/23/23 Family Intervention Specialist Goal (LTG) Patient will be able to perform HEP and do functional movements right UE with improved posture, without compensatory movements for improved right shoulder function LTG Duration 06/22/23 Four Impairment lymphedema (lipidema-type) iram UE's, LEs, abdomen Short Term Goal (STG) Patient to be instructed in all aspects of lymphedema care to include skin care, manual lymphatic drainage, compression, lymphedema exercises STG Duration 06/20/23 Penitentiary Goal (LTG) Patient circumferential measurements dec and stabilized (no inc or dec greater than 1 cm over the course of 1 week) and patient to obtain appropriate compression garments. Patient to be independent with all aspects of self-management for lymphedema/lipidema LTG Duration 07/21/23 Three Impairment activity tolerance Impairment Quickdash UE disability index score60% Penitentiary Goal (LTG) Improve QuickDash score to no greater than 30% as measure of improved activity tolerance with right UE 12/30/22: decreased to 39% 02/18/23: 43% today, more sore after no PT for 1 week. 04/20/23: 40% LTG Duration 07/21/23 Two Impairment unable to reach overhead or behind her back with right shoulder Short Term Goal (STG) Patient will be able to reach use right UE to do her hair, and be able to pull pants up on right without increase in pain 12/30/22: goal progress 02/17/23: goal mostly met 04/06/23: goal met STG Duration goal met Penitentiary Goal (LTG) Patient will demonstrate full ROM with right shoulder to allow her to do all usual activities 04/20/23: goal progress LTG Duration 07/21/23 One Impairment pain right shoulder as high as 8/10 Short Term Goal (STG) decrease pain to no greater than 6/10 with usual activities 12/30/22: pain decreased to 5/10 02/17/23: goal met STG Duration goal met Penitentiary Goal (LTG) decrease pain to no greater than 3/10 with all usual activities 04/06/23: goal progress though variable ability, when feeling better patient with tendency to reach without thinking and reports inc in pain. Also, weight of arms from lymphedema appears to contribute to shoulder dysfunction; patient will be requesting order for lymphedema treatment from PCP 04/20/23: pain generally 3-5/10 , progress LTG Duration 07/21/23 Progress Towards Goals Progress Towards Goals Slow Progress due to Activity Tolerance,Slow Progress due to Medical Issues,Slow Progress - Other Assessment Summary Assessment Patient has had diagnosis of lymphedema added to her treatment plan for PT. As above she has struggled with edema in arms and legs for decades, has had some treatment in the past for her arms, but has difficulty with self management including difficulty donning her compression sleeves, and this is part of what has resulted in her function-limiting right shoulder pain. Occasionally has family assist available but this is not consistent. Her lymphedema appears to be of lipidema type or lipolymphedema. Due to the weight of her arms and her attempts at self management her right shoulder pain has occurred, so feel it is appropriate to treat both issues. Due to the weight of arms, pain in right shoulder, and size of abdomen it is hard for patient to don compression or do massage in LE's. I recommended she see [employer] for consult regarding the diastasis recti. Circumferential measurements were taken today and self- management was discussed with patient demonstrating good understanding though frustration at the difficulty involved for her. Feel she may benefit highly from the use of a sequential pneumatic pump in the home to assist with her self-management especially if other conservative management not helpful. Physical Therapy Plan Frequency and Duration Frequency of Treatment 2x/Week Duration of treatment (weeks) 12 Plan of Care Start Date 04/20/23 Plan of Care End Date 07/21/23 Therapeutic Interventions Therapeutic Interventions Aquatic Therapy,Home Exercise Program,Lymphedema Management, Manual Therapy,Patient/ Caregiver Education,Self-Care/ Home Management,Soft Tissue Mobilization,Taping, Therapeutic Activities, Therapeutic Exercises Modalities Cold Pack/Ice Massage,Electric Stimulation,Hot Packs, Infrared Therapy,Iontophoresis ,Ultrasound,Vasopneumatic Devices Next Visit Focus/Plan Next Note Type Treatment Note Next Visit Plan PT for right shoulder ROM, strengthening, postural correction, pain management. Lymphedema management when this PT returns from vacation, though staff seeing patient until then may assist patient in donning her compression sleeves.
--- NOTE | 2023-04-22 11:30 | PT.OTN ---
Current Diagnoses Lymphedema, not elsewhere classified (04/22/23) Pain in right shoulder (04/22/23) Incomplete rotator cuff tear or rupture of right shoulder, not specified as traumatic (04/22/23) Superior glenoid labrum lesion of right shoulder, initial encounter (04/22/23) Physical Therapy Treatment Note PT-OP-A Visit Information Start: 10/28/22 09:19 Freq: Status: Active Protocol: Document 04/22/23 10:51 SP (Rec: 04/22/23 11:42 SP [id number]) Out-Patient Physical Therapy Visit Information Visit Information Visit Type Treatment Note Visit Start Time 10:51 Visit Stop Time 11:30 Total Visit Minutes 39 Visit Number 31 Number of CIGARETTE FILTER INSPECTOR Visits 1 Evaluation Information Evaluation Date 10/29/22 Precautions Precautions cardiac: [place], has done cardiac rehab lymphedema Sensitivities to Latex. PT-OP-B Current Condition Start: 10/28/22 09:19 Freq: Status: Active Protocol: Document 03/03/23 09:48 SAK (Rec: 03/03/23 10:38 SAK [id number]) Current Condition History of Current Condition Onset Date 1 1/2 years Current Complaints right History of Current Condition gradual onset right shoulder pain unknown reason. Increases with trying to reach overhead, out to side, or behind her back; pain and tingling. If tries to sleep on back both arms go numb. Unable to wear compression sleeve left due to pain right shoulder; patient previously seen by this PT for right shoulder pain and felt at that time pain at least some due to overuse right UE. Goes back to the doctor after PT ( Clifford Diggs). 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 Saw snipper. MRI right shoulder: incomplete RC tear, superior labral tear Prior Treatments and Tests Tylenol, ice, heat. Can't do UE ex at cardiac rehab, low tolerance for HEP previously instructed. Has TENS, but doesn't know how to use PT-OP-C Subjective Start: 10/28/22 09:19 Freq: Status: Active Protocol: Document 04/22/23 10:51 SP (Rec: 04/22/23 11:42 SP [id number]) OP-PT Subjective Patient Comments Patient Comments Pt reports is going to [facility] to get different size and called her recommendatation of specialist of Recti instruction support but physician doesnt do anymore just OBGYN. PT-OP-E Functional Tests Start: 10/28/22 09:19 Freq: Status: Active Protocol: Document 10/29/22 09:50 SAK (Rec: 10/29/22 17:12 [facility] [id number]) Functional Tests Apley's Scratch Test Action 1- Left anterior shoulder Action 1- Right posterior shoulder Action 2- Left T2 Action 2- Right lateral neck Action 3- Left lateral hip Action 3- Right T7 PT-OP-H Neuro Start: 10/28/22 09:19 Freq: Status: Active Protocol: Document 10/29/22 09:50 SAK (Rec: 10/29/22 17:12 [facility] [id number]) Sensation Evaluation Gross Sensation Gross Sensation Left UE Impaired,Right UE Impaired Sensation Description Paresthesia Location Details Left Arm Light Touch Intact/Normal PT-OP-J Posture/Palpation/Skin Start: 10/28/22 09:19 Freq: Status: Active Protocol: Document 10/29/22 09:50 SAK (Rec: 10/29/22 17:12 [facility] [id number]) Posture Evaluation Position Sitting Head/C-Spine Posture Forward Head T-Spine Posture Increased Kyphosis L-Spine Posture Increased Lordosis Shoulder Posture (L) Rounded,(R) Rounded Scapula Posture (L) Protracted,(R) Protracted Arm Posture (L) Internally Rotated,(R) Internally Rotated Pelvis Posture Anteriorly Tilted Palpation Assessment Location RC insertion Palpation Findings Tenderness Palpation Details entire joint line painful to palpation PT-OP-K Range of Motion Start: 10/28/22 09:19 Freq: Status: Active Protocol: Document 03/16/23 10:33 TH (Rec: 03/16/23 10:55 TH [id number]) Shoulder Goniometric Range of Motion Shoulder Right Flexion 90 Abduction 89 External Rotation at 0 degrees Abduction 80 Internal Rotation Behind Back (text) right buttock Comments Post manual Flex: 100 Abd: 95 ER: 85 IR: right beltline PT-OP-L Special Tests Start: 10/28/22 09:19 Freq: Status: Active Protocol: Document 10/29/22 09:50 SAK (Rec: 10/29/22 17:12 [facility] [id number]) Special Tests Shoulder Special Tests Lift-Off Rotator Cuff Test Results positive Elevation Impingement Test Results positive Drop Arm Rotator Cuff Test Results positve PT-OP-M Strength Start: 10/28/22 09:19 Freq: Status: Active Protocol: Document 10/29/22 09:50 SAK (Rec: 10/29/22 17:12 SAK [id number]) Shoulder Strength Shoulder Manual Muscle Testing Left Flexion 4- Good- Extension 4- Good- Adduction 4 Good External Rotation 4- Good- Internal Rotation 4 Good PT-OP-N Lymphedema Start: 04/20/23 09:31 Freq: Status: Active Protocol: Document 04/20/23 09:32 SAK (Rec: 04/20/23 10:17 [facility] [id number]) Lymphedema Measurements Upper Extremity Circumference Measurements Left Affected MCP 20.2 cm Dorsum of Hand 21 cm Wrist 20 cm 5 cm From Wrist Crease 27.3 cm 10 cm From Wrist Crease 32.5 cm 15 cm From Wrist Crease 35.6 cm 20 cm From Wrist Crease 37 cm 25 cm From Wrist Crease 45.2 cm 30 cm From Wrist Crease 51.4 cm 35 cm From Wrist Crease 50.4 cm 40 cm From Wrist Crease 45.5 cm Elbow Joint 36.3 cm Axilla 44.5 cm - 41.5 wrist to armpit Right Affected MCP 19.3 cm Dorsum of Hand 20.8 cm Wrist 18.6 cm 5 cm From Wrist Crease 24.2 cm 10 cm From Wrist Crease 28.8 cm 15 cm From Wrist Crease 31.9 cm 20 cm From Wrist Crease 32.9 cm 25 cm From Wrist Crease 41.7 cm 30 cm From Wrist Crease 48.4 cm 35 cm From Wrist Crease 48.6 cm 40 cm From Wrist Crease 45.3 cm Elbow Joint 32.9 cm Axilla 45.4 cm Lower Extremity Circumference Measurements Right Affected MT Heads 23.2 cm Mid-foot 23.8 cm Medial Malleolus 28.3 cm 10 cm From Medial Malleolus 28.5 cm 20 cm From Medial Malleolus 43 cm 30 cm From Medial Malleolus 44.5 cm 40 cm From Medial Malleolus 65.3 cm 50 cm From Medial Malleolus 72 cm Knee Joint 47.1 cm - groin 85.5 Left Affected MT Heads 23.3 cm Mid-foot 24.5 cm Medial Malleolus 25.2 cm 10 cm From Medial Malleolus 27 cm 20 cm From Medial Malleolus 40.3 cm 30 cm From Medial Malleolus 43.7 cm 40 cm From Medial Malleolus 54.8 cm 50 cm From Medial Malleolus 68.8 cm 60 cm From Medial Malleolus 73.5 cm Knee Joint 51.1 cm - groin 81.8 Comments Lymphedema Comments abdomen 122.3 hips (widest part) 146.0 PT-OP-Q Treatments Start: 10/28/22 09:19 Freq: Status: Active Protocol: Document 04/22/23 10:51 SP (Rec: 04/22/23 11:42 SP [id number]) Therapeutic Exercises Standing Exercises doorframe OH FF, ABD Standing Exercise Name reviewed self AAROM Side right Reps/Minutes 3 SH x5 reps Comments cued no UT Over head press Standing Exercise Name reviewe [facility] ex Side right Resistance TB #1 peach Equipment Used in mirror self no UT recruitment Reps/Minutes 2 reps, x2 sets Comments cued no UT recruitment wall pushup Standing Exercise Name HEP reviewed Reps/Minutes x10 Comments cued allow scapular ROM hor add Standing Exercise Name slowly pull UE into lateral reach Side bilateral Reps/Minutes 3 SH x5 reps Comments AROM/ Stretch further L>R row Resistance Juab TB#1 Equipment Used none; mirror for visual feedback Reps/Minutes 10x, 10x2 with L1 TB with tactile and verbal cues Comments verbal cues and manual cues for scap act and dec UT, chin tuck, glutes bicep curl Standing Exercise Name bicep curl Resistance TB #1 peach Reps/Minutes x1 Comments cued neutral LB shld ext Standing Exercise Name mirror for visual feedback Reps/Minutes 10x5 Comments cues for scap retract, dec UT R shld IR, ER Standing Exercise Name HEP reviewed Side right Resistance TB #1 peach Equipment Used towel roll under arm Reps/Minutes 2x10 Comments cued elbow at side, humeral rotation Manual Therapy Treatment Soft Tissue Mobilization biceps Body Location R Mobilization Type Myofascial Release,Strumming, Sustained Pressure Intensity/Depth Moderate Body Position Supine Comments circular strokes RC insertion Body Location R distal RTC, Mobilization Type Cross-Friction Intensity/Depth Moderate Body Position Supine Joint Mobilizations R GH jt Direction posterior Grade II Body Position seated Self-Care/Home Management Treatment Education Patient Education Body Mechanics,Home Exercise Program,Pain Management, Posture,Safety Other Education Assisted don Compression sleeve to proper positoning LUE. Will be getting R sleeve soon. Ktaping helped but hold for now until scap anterior goes away. Thinks there was a wrinkle and caused an abrasion . Removed residual ktaping glut. PT-OP-R Modalities Start: 10/28/22 09:19 Freq: Status: Active Protocol: Document 04/15/23 13:15 SAK (Rec: 04/15/23 14:02 SAK [id number]) Electric Stimulation Electric Stimulation Interferential Current (IFC) Body Location right shoulder Duration (Minutes) 15 Intensity 10 Target/Sweep Sweep High/Low High Patient Position Hooklying Combined With Heat/Cold Hot Pack PT-OP-T Assessment and Plan Start: 10/28/22 09:19 Freq: Status: Active Protocol: Document 04/22/23 10:51 SP (Rec: 04/22/23 11:42 SP [id number]) Physical Therapy Assessment Goals Five Impairment compensatory movement patterns right UE Impairment overactivation of upper traps, postural dysfunction impacting right shoulder function Short Term Goal (STG) Patient will be able to self- correct posture and compensatory movements right shoulder with visual feedback of mirror STG Duration 05/23/23 Mcfp Goal (LTG) Patient will be able to perform HEP and do functional movements right UE with improved posture, without compensatory movements for improved right shoulder function LTG Duration 06/22/23 Four Impairment lymphedema (lipidema-type) iram UE's, LEs, abdomen Short Term Goal (STG) Patient to be instructed in all aspects of lymphedema care to include skin care, manual lymphatic drainage, compression, lymphedema exercises STG Duration 06/20/23 Mcfp Goal (LTG) Patient circumferential measurements dec and stabilized (no inc or dec greater than 1 cm over the course of 1 week) and patient to obtain appropriate compression garments. Patient to be independent with all aspects of self-management for lymphedema/lipidema LTG Duration 07/21/23 Three Impairment activity tolerance Impairment Quickdash UE disability index score60% Mcfp Goal (LTG) Improve QuickDash score to no greater than 30% as measure of improved activity tolerance with right UE 12/30/22: decreased to 39% 02/18/23: 43% today, more sore after no PT for 1 week. 04/20/23: 40% LTG Duration 07/21/23 Two Impairment unable to reach overhead or behind her back with right shoulder Short Term Goal (STG) Patient will be able to reach use right UE to do her hair, and be able to pull pants up on right without increase in pain 12/30/22: goal progress 02/17/23: goal mostly met 04/06/23: goal met STG Duration goal met Nozzle Worker Goal (LTG) Patient will demonstrate full ROM with right shoulder to allow her to do all usual activities 04/20/23: goal progress LTG Duration 07/21/23 One Impairment pain right shoulder as high as 8/10 Short Term Goal (STG) decrease pain to no greater than 6/10 with usual activities 12/30/22: pain decreased to 5/10 02/17/23: goal met STG Duration goal met Nozzle Worker Goal (LTG) decrease pain to no greater than 3/10 with all usual activities 04/06/23: goal progress though variable ability, when feeling better patient with tendency to reach without thinking and reports inc in pain. Also, weight of arms from lymphedema appears to contribute to shoulder dysfunction; patient will be requesting order for lymphedema treatment from PCP 04/20/23: pain generally 3-5/10 , progress LTG Duration 07/21/23 Assessment Summary Assessment Mod A for donning L UE compression sleeve, has appt soon for measurement for new RUE sleeve. Pt good response to HEP review this tx, cues for scapular retraction set scap/stabilization through range. No pain, tiring R shld. Physical Therapy Plan Frequency and Duration Frequency of Treatment 2x/Week Duration of treatment (weeks) 12 Plan of Care Start Date 04/20/23 Plan of Care End Date 07/21/23 Therapeutic Interventions Therapeutic Interventions Aquatic Therapy,Home Exercise Program,Lymphedema Management, Manual Therapy,Patient/ Caregiver Education,Self-Care/ Home Management,Soft Tissue Mobilization,Taping, Therapeutic Activities, Therapeutic Exercises Modalities Cold Pack/Ice Massage,Electric Stimulation,Hot Packs, Infrared Therapy,Iontophoresis ,Ultrasound,Vasopneumatic Devices Next Visit Focus/Plan Next Note Type Treatment Note Next Visit Plan Continue right shoulder ROM, strengthening, postural correction, pain management. Lymphedema management when this PT returns from vacation end April, though staff seeing patient until then may assist patient in donning her compression sleeves, can self doff.
--- NOTE | 2023-04-28 14:40 | PT.OTN ---
Current Diagnoses Lymphedema, not elsewhere classified (04/28/23) Pain in right shoulder (04/28/23) Incomplete rotator cuff tear or rupture of right shoulder, not specified as traumatic (04/28/23) Superior glenoid labrum lesion of right shoulder, initial encounter (04/28/23) Physical Therapy Treatment Note PT-OP-A Visit Information Start: 10/28/22 09:19 Freq: Status: Active Protocol: Document 04/28/23 13:38 [facility] (Rec: 04/28/23 14:40 [facility] [id number]) Out-Patient Physical Therapy Visit Information Visit Information Visit Type Treatment Note Visit Start Time 13:37 Visit Stop Time 14:20 Total Visit Minutes 43 Visit Number 32 Number of CONTRACT RUNNER Visits 0 PT-OP-B Current Condition Start: 10/28/22 09:19 Freq: Status: Active Protocol: Document 03/03/23 09:48 SAK (Rec: 03/03/23 10:38 SAK [id number]) Current Condition History of Current Condition Onset Date 1 1/2 years Current Complaints right History of Current Condition gradual onset right shoulder pain unknown reason. Increases with trying to reach overhead, out to side, or behind her back; pain and tingling. If tries to sleep on back both arms go numb. Unable to wear compression sleeve left due to pain right shoulder; patient previously seen by this PT for right shoulder pain and felt at that time pain at least some due to overuse right UE. Goes back to the doctor after PT ( Clifford Diggs). 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 Saw shoe designer. MRI right shoulder: incomplete RC tear, superior labral tear Prior Treatments and Tests Tylenol, ice, heat. Can't do UE ex at cardiac rehab, low tolerance for HEP previously instructed. Has TENS, but doesn't know how to use PT-OP-C Subjective Start: 10/28/22 09:19 Freq: Status: Active Protocol: Document 04/28/23 13:38 [facility] (Rec: 04/28/23 14:40 [facility] [id number]) OP-PT Subjective Patient Comments Patient Comments Pt reports she feels like alison keeps practicing her exercises but still gets told she does them wrong PT-OP-E Functional Tests Start: 10/28/22 09:19 Freq: Status: Active Protocol: Document 10/29/22 09:50 SAK (Rec: 12/01/22 17:12 [facility] [id number]) Functional Tests Apley's Scratch Test Action 1- Left anterior shoulder Action 1- Right posterior shoulder Action 2- Left T2 Action 2- Right lateral neck Action 3- Left lateral hip Action 3- Right T7 PT-OP-H Neuro Start: 10/28/22 09:19 Freq: Status: Active Protocol: Document 10/29/22 09:50 SAK (Rec: 10/29/22 17:12 [facility] [id number]) Sensation Evaluation Gross Sensation Gross Sensation Left UE Impaired,Right UE Impaired Sensation Description Paresthesia Location Details Left Arm Light Touch Intact/Normal PT-OP-J Posture/Palpation/Skin Start: 10/28/22 09:19 Freq: Status: Active Protocol: Document 10/29/22 09:50 [facility] (Rec: 10/29/22 17:12 [facility] [id number]) Posture Evaluation Position Sitting Head/C-Spine Posture Forward Head T-Spine Posture Increased Kyphosis L-Spine Posture Increased Lordosis Shoulder Posture (L) Rounded,(R) Rounded Scapula Posture (L) Protracted,(R) Protracted Arm Posture (L) Internally Rotated,(R) Internally Rotated Pelvis Posture Anteriorly Tilted Palpation Assessment Location RC insertion Palpation Findings Tenderness Palpation Details entire joint line painful to palpation PT-OP-K Range of Motion Start: 10/28/22 09:19 Freq: Status: Active Protocol: Document 03/16/23 10:33 TH (Rec: 03/16/23 10:55 TH [id number]) Shoulder Goniometric Range of Motion Shoulder Right Flexion 90 Abduction 89 External Rotation at 0 degrees Abduction 80 Internal Rotation Behind Back (text) right buttock Comments Post manual Flex: 100 Abd: 95 ER: 85 IR: right beltline PT-OP-L Special Tests Start: 10/28/22 09:19 Freq: Status: Active Protocol: Document 10/29/22 09:50 SAK (Rec: 10/29/22 17:12 [facility] [id number]) Special Tests Shoulder Special Tests Lift-Off Rotator Cuff Test Results positive Elevation Impingement Test Results positive Drop Arm Rotator Cuff Test Results positve PT-OP-M Strength Start: 10/28/22 09:19 Freq: Status: Active Protocol: Document 10/29/22 09:50 SAK (Rec: 10/29/22 17:12 [facility] [id number]) Shoulder Strength Shoulder Manual Muscle Testing Left Flexion 4- Good- Extension 4- Good- Adduction 4 Good External Rotation 4- Good- Internal Rotation 4 Good PT-OP-N Lymphedema Start: 04/20/23 09:31 Freq: Status: Active Protocol: Document 04/20/23 09:32 [facility] (Rec: 04/20/23 10:17 [facility] [id number]) Lymphedema Measurements Upper Extremity Circumference Measurements Left Affected MCP 20.2 cm Dorsum of Hand 21 cm Wrist 20 cm 5 cm From Wrist Crease 27.3 cm 10 cm From Wrist Crease 32.5 cm 15 cm From Wrist Crease 35.6 cm 20 cm From Wrist Crease 37 cm 25 cm From Wrist Crease 45.2 cm 30 cm From Wrist Crease 51.4 cm 35 cm From Wrist Crease 50.4 cm 40 cm From Wrist Crease 45.5 cm Elbow Joint 36.3 cm Axilla 44.5 cm - 41.5 wrist to armpit Right Affected MCP 19.3 cm Dorsum of Hand 20.8 cm Wrist 18.6 cm 5 cm From Wrist Crease 24.2 cm 10 cm From Wrist Crease 28.8 cm 15 cm From Wrist Crease 31.9 cm 20 cm From Wrist Crease 32.9 cm 25 cm From Wrist Crease 41.7 cm 30 cm From Wrist Crease 48.4 cm 35 cm From Wrist Crease 48.6 cm 40 cm From Wrist Crease 45.3 cm Elbow Joint 32.9 cm Axilla 45.4 cm Lower Extremity Circumference Measurements Right Affected MT Heads 23.2 cm Mid-foot 23.8 cm Medial Malleolus 28.3 cm 10 cm From Medial Malleolus 28.5 cm 20 cm From Medial Malleolus 43 cm 30 cm From Medial Malleolus 44.5 cm 40 cm From Medial Malleolus 65.3 cm 50 cm From Medial Malleolus 72 cm Knee Joint 47.1 cm - groin 85.5 Left Affected MT Heads 23.3 cm Mid-foot 24.5 cm Medial Malleolus 25.2 cm 10 cm From Medial Malleolus 27 cm 20 cm From Medial Malleolus 40.3 cm 30 cm From Medial Malleolus 43.7 cm 40 cm From Medial Malleolus 54.8 cm 50 cm From Medial Malleolus 68.8 cm 60 cm From Medial Malleolus 73.5 cm Knee Joint 51.1 cm - groin 81.8 Comments Lymphedema Comments abdomen 122.3 hips (widest part) 146.0 PT-OP-Q Treatments Start: 10/28/22 09:19 Freq: Status: Active Protocol: Document 04/28/23 13:38 [facility] (Rec: 04/28/23 14:40 [facility] [id number]) Therapeutic Exercises Sitting Exercises breathing Sitting Exercise Name w/LUE on R ribs w/focus on deep breaths w/ribcage expansion and depression shoulder rolls Sitting Exercise Name shrug up then retract then depression Side bilateral Reps/Minutes 10x then 5x w/axial elongation Manual Therapy Treatment Soft Tissue Mobilization superior Body Location R UT & LS Mobilization Type Rolling,Strumming Intensity/Depth Moderate Body Position s/l and sit post Body Location R lat Mobilization Type Strumming,Sustained Pressure Intensity/Depth Moderate Body Position Sidelying Comments w/ fwd reach Joint Mobilizations ribs Comments R general depression lower and mid ribcage FM w/breathing and scap elev 2. s/l FM 1st rib caudal R AC jt Joint R scap post FM Body Position Sidelying Self-Care/Home Management Treatment Education Other Education 6 min: edu w/anatomy miguel ángel and demo re: importance of lats and ribs w/shoulder mechanics and edu re: RC mm and anatomy of shoulder PT-OP-R Modalities Start: 10/28/22 09:19 Freq: Status: Active Protocol: Document 04/15/23 13:15 [facility] (Rec: 04/15/23 14:02 [facility] [id number]) Electric Stimulation Electric Stimulation Interferential Current (IFC) Body Location right shoulder Duration (Minutes) 15 Intensity 10 Target/Sweep Sweep High/Low High Patient Position Hooklying Combined With Heat/Cold Hot Pack PT-OP-T Assessment and Plan Start: 10/28/22 09:19 Freq: Status: Active Protocol: Document 04/28/23 13:38 [facility] (Rec: 04/28/23 14:40 [facility] [id number]) Physical Therapy Assessment Goals Five Impairment compensatory movement patterns right UE Impairment overactivation of upper traps, postural dysfunction impacting right shoulder function Short Term Goal (STG) Patient will be able to self- correct posture and compensatory movements right shoulder with visual feedback of mirror STG Duration 05/23/23 High Density Finishing Operator Goal (LTG) Patient will be able to perform HEP and do functional movements right UE with improved posture, without compensatory movements for improved right shoulder function LTG Duration 06/22/23 Four Impairment lymphedema (lipidema-type) iram UE's, LEs, abdomen Short Term Goal (STG) Patient to be instructed in all aspects of lymphedema care to include skin care, manual lymphatic drainage, compression, lymphedema exercises STG Duration 06/20/23 High Density Finishing Operator Goal (LTG) Patient circumferential measurements dec and stabilized (no inc or dec greater than 1 cm over the course of 1 week) and patient to obtain appropriate compression garments. Patient to be independent with all aspects of self-management for lymphedema/lipidema LTG Duration 07/21/23 Three Impairment activity tolerance Impairment Quickdash UE disability index score60% High Density Finishing Operator Goal (LTG) Improve QuickDash score to no greater than 30% as measure of improved activity tolerance with right UE 12/30/22: decreased to 39% 02/18/23: 43% today, more sore after no PT for 1 week. 04/20/23: 40% LTG Duration 07/21/23 Two Impairment unable to reach overhead or behind her back with right shoulder Short Term Goal (STG) Patient will be able to reach use right UE to do her hair, and be able to pull pants up on right without increase in pain 12/30/22: goal progress 02/17/23: goal mostly met 04/06/23: goal met STG Duration goal met High Density Finishing Operator Goal (LTG) Patient will demonstrate full ROM with right shoulder to allow her to do all usual activities 04/20/23: goal progress LTG Duration 07/21/23 One Impairment pain right shoulder as high as 8/10 Short Term Goal (STG) decrease pain to no greater than 6/10 with usual activities 12/30/22: pain decreased to 5/10 02/17/23: goal met STG Duration goal met High Density Finishing Operator Goal (LTG) decrease pain to no greater than 3/10 with all usual activities 04/06/23: goal progress though variable ability, when feeling better patient with tendency to reach without thinking and reports inc in pain. Also, weight of arms from lymphedema appears to contribute to shoulder dysfunction; patient will be requesting order for lymphedema treatment from PCP 04/20/23: pain generally 3-5/10 , progress LTG Duration 07/21/23 Assessment Summary Assessment Pt was able to do scap set w/o pain after manual and had inc ROM w/flex after manual along w/improved mechanics w/less R scap elevation w/overhead motions.S he does still demonstrate ribcage, upper thoracic, possibly cervical and SC, AC and GH restrictions . Physical Therapy Plan Frequency and Duration Frequency of Treatment 2x/Week Duration of treatment (weeks) 12 Plan of Care Start Date 04/20/23 Plan of Care End Date 07/21/23 Next Visit Focus/Plan Next Note Type Treatment Note Next Visit Plan SC jt mobs, GH jt mobs, upper tspine gentle mobs, upper rib mobs Continue right shoulder ROM, strengthening, postural correction, pain management. Lymphedema management when this PT returns from vacation end April, though staff seeing patient until then may assist patient in donning her compression sleeves, can self doff.
--- NOTE | 2023-04-30 10:45 | PT.OTN ---
Current Diagnoses Lymphedema, not elsewhere classified (04/30/23) Pain in right shoulder (04/30/23) Incomplete rotator cuff tear or rupture of right shoulder, not specified as traumatic (04/30/23) Superior glenoid labrum lesion of right shoulder, initial encounter (04/30/23) Physical Therapy Treatment Note PT-OP-A Visit Information Start: 10/28/22 09:19 Freq: Status: Active Protocol: Document 04/30/23 10:06 SP (Rec: 04/30/23 10:50 SP [id number]) Out-Patient Physical Therapy Visit Information Visit Information Visit Type Treatment Note Visit Start Time 10:06 Visit Stop Time 10:45 Total Visit Minutes 39 Visit Number [address] ATT[address]ANT Visits 1 Evaluation Information Evaluation Date 10/29/22 Precautions Precautions cardiac: ND, has done cardiac rehab lymphedema Sensitivities to Latex. PT-OP-B Current Condition Start: 10/28/22 09:19 Freq: Status: Active Protocol: Document 03/03/23 09:48 SAK (Rec: 03/03/23 10:38 SAK [id number]) Current Condition History of Current Condition Onset Date 1 1/2 years Current Complaints right History of Current Condition gradual onset right shoulder pain unknown reason. Increases with trying to reach overhead, out to side, or behind her back; pain and tingling. If tries to sleep on back both arms go numb. Unable to wear compression sleeve left due to pain right shoulder; patient previously seen by this PT for right shoulder pain and felt at that time pain at least some due to overuse right UE. Goes back to the doctor after PT ( Clifford Diggs). 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 Saw inclusion manager. MRI right shoulder: incomplete RC tear, superior labral tear Prior Treatments and Tests Tylenol, ice, heat. Can't do UE ex at cardiac rehab, low tolerance for HEP previously instructed. Has TENS, but doesn't know how to use PT-OP-C Subjective Start: 10/28/22 09:19 Freq: Status: Active Protocol: Document 04/30/23 10:06 SP (Rec: 04/30/23 10:50 SP [id number]) OP-PT Subjective Patient Comments Patient Comments Pt reported trying to be conscious of proper from with exercises after seeing a new PT last tx. She reported her shoulder and arm not moving as easily and maybe why recruiting UT. PT-OP-E Functional Tests Start: 10/28/22 09:19 Freq: Status: Active Protocol: Document 10/29/22 09:50 SAK (Rec: 10/29/22 17:12 [facility] [id number]) Functional Tests Apley's Scratch Test Action 1- Left anterior shoulder Action 1- Right posterior shoulder Action 2- Left T2 Action 2- Right lateral neck Action 3- Left lateral hip Action 3- Right T7 PT-OP-H Neuro Start: 10/28/22 09:19 Freq: Status: Active Protocol: Document 10/29/22 09:50 SAK (Rec: 10/29/22 17:12 [facility] [id number]) Sensation Evaluation Gross Sensation Gross Sensation Left UE Impaired,Right UE Impaired Sensation Description Paresthesia Location Details Left Arm Light Touch Intact/Normal PT-OP-J Posture/Palpation/Skin Start: 10/28/22 09:19 Freq: Status: Active Protocol: Document 10/29/22 09:50 SAK (Rec: 10/29/22 17:12 [facility] [id number]) Posture Evaluation Position Sitting Head/C-Spine Posture Forward Head T-Spine Posture Increased Kyphosis L-Spine Posture Increased Lordosis Shoulder Posture (L) Rounded,(R) Rounded Scapula Posture (L) Protracted,(R) Protracted Arm Posture (L) Internally Rotated,(R) Internally Rotated Pelvis Posture Anteriorly Tilted Palpation Assessment Location RC insertion Palpation Findings Tenderness Palpation Details entire joint line painful to palpation PT-OP-K Range of Motion Start: 10/28/22 09:19 Freq: Status: Active Protocol: Document 03/16/23 10:33 TH (Rec: 03/16/23 10:55 TH [id number]) Shoulder Goniometric Range of Motion Shoulder Right Flexion 90 Abduction 89 External Rotation at 0 degrees Abduction 80 Internal Rotation Behind Back (text) right buttock Comments Post manual Flex: 100 Abd: 95 ER: 85 IR: right beltline PT-OP-L Special Tests Start: 10/28/22 09:19 Freq: Status: Active Protocol: Document 10/29/22 09:50 SAK (Rec: 10/29/22 17:12 [facility] [id number]) Special Tests Shoulder Special Tests Lift-Off Rotator Cuff Test Results positive Elevation Impingement Test Results positive Drop Arm Rotator Cuff Test Results positve PT-OP-M Strength Start: 10/28/22 09:19 Freq: Status: Active Protocol: Document 10/29/22 09:50 SAK (Rec: 10/29/22 17:12 SAK [id number]) Shoulder Strength Shoulder Manual Muscle Testing Left Flexion 4- Good- Extension 4- Good- Adduction 4 Good External Rotation 4- Good- Internal Rotation 4 Good PT-OP-N Lymphedema Start: 04/20/23 09:31 Freq: Status: Active Protocol: Document 04/20/23 09:32 SAK (Rec: 04/20/23 10:17 [facility] [id number]) Lymphedema Measurements Upper Extremity Circumference Measurements Left Affected MCP 20.2 cm Dorsum of Hand 21 cm Wrist 20 cm 5 cm From Wrist Crease 27.3 cm 10 cm From Wrist Crease 32.5 cm 15 cm From Wrist Crease 35.6 cm 20 cm From Wrist Crease 37 cm 25 cm From Wrist Crease 45.2 cm 30 cm From Wrist Crease 51.4 cm 35 cm From Wrist Crease 50.4 cm 40 cm From Wrist Crease 45.5 cm Elbow Joint 36.3 cm Axilla 44.5 cm - 41.5 wrist to armpit Right Affected MCP 19.3 cm Dorsum of Hand 20.8 cm Wrist 18.6 cm 5 cm From Wrist Crease 24.2 cm 10 cm From Wrist Crease 28.8 cm 15 cm From Wrist Crease 31.9 cm 20 cm From Wrist Crease 32.9 cm 25 cm From Wrist Crease 41.7 cm 30 cm From Wrist Crease 48.4 cm 35 cm From Wrist Crease 48.6 cm 40 cm From Wrist Crease 45.3 cm Elbow Joint 32.9 cm Axilla 45.4 cm Lower Extremity Circumference Measurements Right Affected MT Heads 23.2 cm Mid-foot 23.8 cm Medial Malleolus 28.3 cm 10 cm From Medial Malleolus 28.5 cm 20 cm From Medial Malleolus 43 cm 30 cm From Medial Malleolus 44.5 cm 40 cm From Medial Malleolus 65.3 cm 50 cm From Medial Malleolus 72 cm Knee Joint 47.1 cm - groin 85.5 Left Affected MT Heads 23.3 cm Mid-foot 24.5 cm Medial Malleolus 25.2 cm 10 cm From Medial Malleolus 27 cm 20 cm From Medial Malleolus 40.3 cm 30 cm From Medial Malleolus 43.7 cm 40 cm From Medial Malleolus 54.8 cm 50 cm From Medial Malleolus 68.8 cm 60 cm From Medial Malleolus 73.5 cm Knee Joint 51.1 cm - groin 81.8 Comments Lymphedema Comments abdomen 122.3 hips (widest part) 146.0 PT-OP-Q Treatments Start: 10/28/22 09:19 Freq: Status: Active Protocol: Document 04/30/23 10:06 SP (Rec: 04/30/23 10:50 SP [id number]) Therapeutic Exercises Sidelying Exercises ABC Sidelying Exercise Name initiated in PT Side right Reps/Minutes a-z Comments cued small range, good muscle tiring, occ cues for scap depression open book Sidelying Exercise Name reviewed Side right Reps/Minutes x5 Comments therapist contact cues scapular glide, no UT recruitment Standing Exercises R SB Standing Exercise Name added to HEP Side right Reps/Minutes 5 reps x3 SH breathes Comments improved neutral posture row Resistance [place] TB#1 Equipment Used none; mirror for visual feedback Reps/Minutes 10x, 10x2 with L1 TB with tactile and verbal cues Comments verbal cues and manual cues for scap act and dec UT, chin tuck, glutes shld ext Equipment Used mirror for visual feedback Reps/Minutes 10x5 Comments cues for scap retract, R sB neutral R shld IR, ER Standing Exercise Name HEP reviewed Side right Resistance TB #1 peach Equipment Used towel roll under arm Reps/Minutes 2x10 Comments cued elbow at side, humeral rotation, R SB neutral alignment Manual Therapy Treatment Soft Tissue Mobilization superior Body Location R UT & LS Mobilization Type Rolling,Strumming Intensity/Depth Moderate Body Position s/l and sit post Body Location R lat Mobilization Type Strumming,Sustained Pressure Intensity/Depth Moderate Body Position Sidelying Comments w/ fwd reach Taping right shoulder Body Location R shld Treatment Focus pain management Type of Tape kinesiotape Skin Inspection intact Comments 2 single strips: Ant humeral head mid post scap, distal deltoid V med/lat AC jt to middle trap region, proximity and posterior GH jt support. *Patient request not tape back of arm or spine due to difficulty removing Self-Care/Home Management Treatment Education Other Education Assisted her with donning L arm sleeve. PT-OP-R Modalities Start: 10/28/22 09:19 Freq: Status: Active Protocol: Document 04/15/23 13:15 SAK (Rec: 04/15/23 14:02 SAK [id number]) Electric Stimulation Electric Stimulation Interferential Current (IFC) Body Location right shoulder Duration (Minutes) 15 Intensity 10 Target/Sweep Sweep High/Low High Patient Position Hooklying Combined With Heat/Cold Hot Pack PT-OP-T Assessment and Plan Start: 10/28/22 09:19 Freq: Status: Active Protocol: Document 04/30/23 10:06 SP (Rec: 04/30/23 10:50 SP [id number]) Physical Therapy Assessment Goals Five Impairment compensatory movement patterns right UE Impairment overactivation of upper traps, postural dysfunction impacting right shoulder function Short Term Goal (STG) Patient will be able to self- correct posture and compensatory movements right shoulder with visual feedback of mirror STG Duration 05/23/23 Mcc Goal (LTG) Patient will be able to perform HEP and do functional movements right UE with improved posture, without compensatory movements for improved right shoulder function LTG Duration 06/22/23 Four Impairment lymphedema (lipidema-type) iram UE's, LEs, abdomen Short Term Goal (STG) Patient to be instructed in all aspects of lymphedema care to include skin care, manual lymphatic drainage, compression, lymphedema exercises STG Duration 06/20/23 Mcc Goal (LTG) Patient circumferential measurements dec and stabilized (no inc or dec greater than 1 cm over the course of 1 week) and patient to obtain appropriate compression garments. Patient to be independent with all aspects of self-management for lymphedema/lipidema LTG Duration 07/21/23 Three Impairment activity tolerance Impairment Quickdash UE disability index score60% Mcc Goal (LTG) Improve QuickDash score to no greater than 30% as measure of improved activity tolerance with right UE 12/30/22: decreased to 39% 02/18/23: 43% today, more sore after no PT for 1 week. 04/20/23: 40% LTG Duration 07/21/23 Two Impairment unable to reach overhead or behind her back with right shoulder Short Term Goal (STG) Patient will be able to reach use right UE to do her hair, and be able to pull pants up on right without increase in pain 12/30/22: goal progress 02/17/23: goal mostly met 04/06/23: goal met STG Duration goal met Mcc Goal (LTG) Patient will demonstrate full ROM with right shoulder to allow her to do all usual activities 04/20/23: goal progress LTG Duration 07/21/23 One Impairment pain right shoulder as high as 8/10 Short Term Goal (STG) decrease pain to no greater than 6/10 with usual activities 12/30/22: pain decreased to 5/10 02/17/23: goal met STG Duration goal met Mcc Goal (LTG) decrease pain to no greater than 3/10 with all usual activities 04/06/23: goal progress though variable ability, when feeling better patient with tendency to reach without thinking and reports inc in pain. Also, weight of arms from lymphedema appears to contribute to shoulder dysfunction; patient will be requesting order for lymphedema treatment from PCP 04/20/23: pain generally 3-5/10 , progress LTG Duration 07/21/23 Assessment Summary Assessment Pt improved R scapular mobility post manual and added R SB pre ther ex and use mirror for self corrections during ther ex. Pt only needed assistance of L UE sleeve elbow to upper arm donning @ arrival, has tremors and unable to assist and daughter leaving this weekend. Physical Therapy Plan Frequency and Duration Frequency of Treatment 2x/Week Duration of treatment (weeks) 12 Plan of Care Start Date 04/20/23 Plan of Care End Date 07/21/23 Therapeutic Interventions Therapeutic Interventions Aquatic Therapy,Home Exercise Program,Lymphedema Management, Manual Therapy,Patient/ Caregiver Education,Self-Care/ Home Management,Soft Tissue Mobilization,Taping, Therapeutic Activities, Therapeutic Exercises Modalities Cold Pack/Ice Massage,Electric Stimulation,Hot Packs, Infrared Therapy,Iontophoresis ,Ultrasound,Vasopneumatic Devices Next Visit Focus/Plan Next Note Type Treatment Note Next Visit Plan POC: R UE SC jt mobs, GH jt mobs, upper tspine gentle mobs , upper rib mobs. Continue right shoulder ROM, strengthening, postural correction, pain management. *Lymphedema management with PT (90 mins each) when returns from vacation end April, though staff seeing patient until then may assist patient in donning her compression sleeves, can self doff.
--- NOTE | 2023-05-04 11:55 | PT.OTN ---
Current Diagnoses Lymphedema, not elsewhere classified (05/04/23) Pain in right shoulder (05/04/23) Incomplete rotator cuff tear or rupture of right shoulder, not specified as traumatic (05/04/23) Superior glenoid labrum lesion of right shoulder, initial encounter (05/04/23) Physical Therapy Treatment Note PT-OP-A Visit Information Start: 10/28/22 09:19 Freq: Status: Active Protocol: Document 05/04/23 11:43 [facility] (Rec: 05/04/23 11:55 [facility] [id number]) Out-Patient Physical Therapy Visit Information Visit Information Visit Type Treatment Note Visit Note 04/07 Visit Start Time 10:50 Visit Stop Time 11:31 Total Visit Minutes 41 Visit Number 34 Number of DETONATOR ASSEMBLER Visits 0 PT-OP-B Current Condition Start: 10/28/22 09:19 Freq: Status: Active Protocol: Document 03/03/23 09:48 SAK (Rec: 03/03/23 10:38 SAK [id number]) Current Condition History of Current Condition Onset Date 1 1/2 years Current Complaints right History of Current Condition gradual onset right shoulder pain unknown reason. Increases with trying to reach overhead, out to side, or behind her back; pain and tingling. If tries to sleep on back both arms go numb. Unable to wear compression sleeve left due to pain right shoulder; patient previously seen by this PT for right shoulder pain and felt at that time pain at least some due to overuse right UE. Goes back to the doctor after PT ( Clifford Diggs). 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 Saw estate planning director. MRI right shoulder: incomplete RC tear, superior labral tear Prior Treatments and Tests Tylenol, ice, heat. Can't do UE ex at cardiac rehab, low tolerance for HEP previously instructed. Has TENS, but doesn't know how to use PT-OP-C Subjective Start: 10/28/22 09:19 Freq: Status: Active Protocol: Document 05/04/23 11:43 [facility] (Rec: 05/04/23 11:55 [facility] [id number]) OP-PT Subjective Patient Comments Patient Comments Pt reports what this PT did last time was very helpful. Still had some issues w/scap dep/retraction and notes still pain w/donning/doffing clothes and reaching. Pt reprots she is doing better w/ ability to turn her head for driving PT-OP-E Functional Tests Start: 10/28/22 09:19 Freq: Status: Active Protocol: Document 10/29/22 09:50 SAK (Rec: 10/29/22 17:12 [facility] [id number]) Functional Tests Apley's Scratch Test Action 1- Left anterior shoulder Action 1- Right posterior shoulder Action 2- Left T2 Action 2- Right lateral neck Action 3- Left lateral hip Action 3- Right T7 PT-OP-H Neuro Start: 10/28/22 09:19 Freq: Status: Active Protocol: Document 10/29/22 09:50 SAK (Rec: 10/29/22 17:12 [facility] [id number]) Sensation Evaluation Gross Sensation Gross Sensation Left UE Impaired,Right UE Impaired Sensation Description Paresthesia Location Details Left Arm Light Touch Intact/Normal PT-OP-J Posture/Palpation/Skin Start: 10/28/22 09:19 Freq: Status: Active Protocol: Document 10/29/22 09:50 SAK (Rec: 10/29/22 17:12 [facility] [id number]) Posture Evaluation Position Sitting Head/C-Spine Posture Forward Head T-Spine Posture Increased Kyphosis L-Spine Posture Increased Lordosis Shoulder Posture (L) Rounded,(R) Rounded Scapula Posture (L) Protracted,(R) Protracted Arm Posture (L) Internally Rotated,(R) Internally Rotated Pelvis Posture Anteriorly Tilted Palpation Assessment Location RC insertion Palpation Findings Tenderness Palpation Details entire joint line painful to palpation PT-OP-K Range of Motion Start: 10/28/22 09:19 Freq: Status: Active Protocol: Document 03/16/23 10:33 TH (Rec: 03/16/23 10:55 TH [id number]) Shoulder Goniometric Range of Motion Shoulder Right Flexion 90 Abduction 89 External Rotation at 0 degrees Abduction 80 Internal Rotation Behind Back (text) right buttock Comments Post manual Flex: 100 Abd: 95 ER: 85 IR: right beltline PT-OP-L Special Tests Start: 10/28/22 09:19 Freq: Status: Active Protocol: Document 10/29/22 09:50 SAK (Rec: 10/29/22 17:12 [facility] [id number]) Special Tests Shoulder Special Tests Lift-Off Rotator Cuff Test Results positive Elevation Impingement Test Results positive Drop Arm Rotator Cuff Test Results positve PT-OP-M Strength Start: 10/28/22 09:19 Freq: Status: Active Protocol: Document 10/29/22 09:50 SAK (Rec: 10/29/22 17:12 SAK [id number]) Shoulder Strength Shoulder Manual Muscle Testing Left Flexion 4- Good- Extension 4- Good- Adduction 4 Good External Rotation 4- Good- Internal Rotation 4 Good PT-OP-N Lymphedema Start: 04/20/23 09:31 Freq: Status: Active Protocol: Document 04/20/23 09:32 SAK (Rec: 04/20/23 10:17 SAK [id number]) Lymphedema Measurements Upper Extremity Circumference Measurements Left Affected MCP 20.2 cm Dorsum of Hand 21 cm Wrist 20 cm 5 cm From Wrist Crease 27.3 cm 10 cm From Wrist Crease 32.5 cm 15 cm From Wrist Crease 35.6 cm 20 cm From Wrist Crease 37 cm 25 cm From Wrist Crease 45.2 cm 30 cm From Wrist Crease 51.4 cm 35 cm From Wrist Crease 50.4 cm 40 cm From Wrist Crease 45.5 cm Elbow Joint 36.3 cm Axilla 44.5 cm - 41.5 wrist to armpit Right Affected MCP 19.3 cm Dorsum of Hand 20.8 cm Wrist 18.6 cm 5 cm From Wrist Crease 24.2 cm 10 cm From Wrist Crease 28.8 cm 15 cm From Wrist Crease 31.9 cm 20 cm From Wrist Crease 32.9 cm 25 cm From Wrist Crease 41.7 cm 30 cm From Wrist Crease 48.4 cm 35 cm From Wrist Crease 48.6 cm 40 cm From Wrist Crease 45.3 cm Elbow Joint 32.9 cm Axilla 45.4 cm Lower Extremity Circumference Measurements Right Affected MT Heads 23.2 cm Mid-foot 23.8 cm Medial Malleolus 28.3 cm 10 cm From Medial Malleolus 28.5 cm 20 cm From Medial Malleolus 43 cm 30 cm From Medial Malleolus 44.5 cm 40 cm From Medial Malleolus 65.3 cm 50 cm From Medial Malleolus 72 cm Knee Joint 47.1 cm - groin 85.5 Left Affected MT Heads 23.3 cm Mid-foot 24.5 cm Medial Malleolus 25.2 cm 10 cm From Medial Malleolus 27 cm 20 cm From Medial Malleolus 40.3 cm 30 cm From Medial Malleolus 43.7 cm 40 cm From Medial Malleolus 54.8 cm 50 cm From Medial Malleolus 68.8 cm 60 cm From Medial Malleolus 73.5 cm Knee Joint 51.1 cm - groin 81.8 Comments Lymphedema Comments abdomen 122.3 hips (widest part) 146.0 PT-OP-Q Treatments Start: 10/28/22 09:19 Freq: Status: Active Protocol: Document 05/04/23 11:43 [facility] (Rec: 05/04/23 11:55 [facility] [id number]) Manual Therapy Treatment Soft Tissue Mobilization post Body Location R lat & rhomoids & LT Mobilization Type Strumming,Sustained Pressure Intensity/Depth Moderate Body Position Sidelying Comments w/scap dep Joint Mobilizations thoracic Comments transverse glides L T4-6 FM ribs Comments R general depression lower and mid ribcage FM w/breathing and scap elev R AC jt Body Position Sidelying Comments R scap post; clavicle ant FM and percussion Neuro Re-Education Treatment Other Activities PNF Details R scap Reps/Duration 10 min Comments 1. ant elevation sustained hold progressd to COI 2. Post depression-sustained holds w/use of irradiation from R modified pivot prone 3. post depression COI 4. seated prolonged hold post dep R PT-OP-R Modalities Start: 10/28/22 09:19 Freq: Status: Active Protocol: Document 04/15/23 13:15 [facility] (Rec: 04/15/23 14:02 [facility] [id number]) Electric Stimulation Electric Stimulation Interferential Current (IFC) Body Location right shoulder Duration (Minutes) 15 Intensity 10 Target/Sweep Sweep High/Low High Patient Position Hooklying Combined With Heat/Cold Hot Pack PT-OP-T Assessment and Plan Start: 10/28/22 09:19 Freq: Status: Active Protocol: Document 05/04/23 11:43 [facility] (Rec: 05/04/23 11:55 [facility] [id number]) Physical Therapy Assessment Goals Five Impairment compensatory movement patterns right UE Impairment overactivation of upper traps, postural dysfunction impacting right shoulder function Short Term Goal (STG) Patient will be able to self- correct posture and compensatory movements right shoulder with visual feedback of mirror STG Duration 05/23/23 Client Service Executive Goal (LTG) Patient will be able to perform HEP and do functional movements right UE with improved posture, without compensatory movements for improved right shoulder function LTG Duration 06/22/23 Four Impairment lymphedema (lipidema-type) iram UE's, LEs, abdomen Short Term Goal (STG) Patient to be instructed in all aspects of lymphedema care to include skin care, manual lymphatic drainage, compression, lymphedema exercises STG Duration 06/20/23 [facility] Goal (LTG) Patient circumferential measurements dec and stabilized (no inc or dec greater than 1 cm over the course of 1 week) and patient to obtain appropriate compression garments. Patient to be independent with all aspects of self-management for lymphedema/lipidema LTG Duration 07/21/23 Three Impairment activity tolerance Impairment Quickdash UE disability index score60% Client Service Executive Goal (LTG) Improve QuickDash score to no greater than 30% as measure of improved activity tolerance with right UE 12/30/22: decreased to 39% 02/18/23: 43% today, more sore after no PT for 1 week. 04/20/23: 40% LTG Duration 07/21/23 Two Impairment unable to reach overhead or behind her back with right shoulder Short Term Goal (STG) Patient will be able to reach use right UE to do her hair, and be able to pull pants up on right without increase in pain 12/30/22: goal progress 02/17/23: goal mostly met 04/06/23: goal met STG Duration goal met [facility] Goal (LTG) Patient will demonstrate full ROM with right shoulder to allow her to do all usual activities 04/20/23: goal progress LTG Duration 07/21/23 One Impairment pain right shoulder as high as 8/10 Short Term Goal (STG) decrease pain to no greater than 6/10 with usual activities 12/30/22: pain decreased to 5/10 02/17/23: goal met STG Duration goal met Client Service Executive Goal (LTG) decrease pain to no greater than 3/10 with all usual activities 04/06/23: goal progress though variable ability, when feeling better patient with tendency to reach without thinking and reports inc in pain. Also, weight of arms from lymphedema appears to contribute to shoulder dysfunction; patient will be requesting order for lymphedema treatment from PCP 04/20/23: pain generally 3-5/10 , progress LTG Duration 07/21/23 Assessment Summary Assessment Pt had improved ability to get scap retraction w/o pain and had improved postural position of R shoulder in seated w/ level shoulders after manual treatment (R was higher prior) . Improved ability to perform rows w/scap retraction. Physical Therapy Plan Frequency and Duration Frequency of Treatment 2x/Week Duration of treatment (weeks) 12 Plan of Care Start Date 04/20/23 Plan of Care End Date 07/21/23 Next Visit Focus/Plan Next Note Type Treatment Note Next Visit Plan AC and GH joint mobs; progress into overhead treatment of RUE
--- NOTE | 2023-05-07 10:45 | PT.OTN ---
Current Diagnoses Lymphedema, not elsewhere classified (05/07/23) Pain in right shoulder (05/07/23) Incomplete rotator cuff tear or rupture of right shoulder, not specified as traumatic (05/07/23) Superior glenoid labrum lesion of right shoulder, initial encounter (05/07/23) Physical Therapy Treatment Note PT-OP-A Visit Information Start: 10/28/22 09:19 Freq: Status: Active Protocol: Document 05/07/23 10:01 SP (Rec: 05/07/23 10:48 SP [id number]) Out-Patient Physical Therapy Visit Information Visit Information Visit Type Treatment Note Visit Note 05/08 Visit Start Time 10:01 Visit Stop Time 10:45 Total Visit Minutes 44 Visit Number 35 Number of VIDEO TECHNICIAN Visits 1 Evaluation Information Evaluation Date 10/29/22 Precautions Precautions cardiac: CT, has done cardiac rehab lymphedema Sensitivities to Latex. PT-OP-B Current Condition Start: 10/28/22 09:19 Freq: Status: Active Protocol: Document 03/03/23 09:48 SAK (Rec: 03/03/23 10:38 SAK [id number]) Current Condition History of Current Condition Onset Date 1 1/2 years Current Complaints right History of Current Condition gradual onset right shoulder pain unknown reason. Increases with trying to reach overhead, out to side, or behind her back; pain and tingling. If tries to sleep on back both arms go numb. Unable to wear compression sleeve left due to pain right shoulder; patient previously seen by this PT for right shoulder pain and felt at that time pain at least some due to overuse right UE. Goes back to the doctor after PT ( Clifford Diggs). 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 Saw solid waste analyst. MRI right shoulder: incomplete RC tear, superior labral tear Prior Treatments and Tests Tylenol, ice, heat. Can't do UE ex at cardiac rehab, low tolerance for HEP previously instructed. Has TENS, but doesn't know how to use PT-OP-C Subjective Start: 10/28/22 09:19 Freq: Status: Active Protocol: Document 05/07/23 10:01 SP (Rec: 05/07/23 10:48 SP [id number]) OP-PT Subjective Patient Comments Patient Comments Pt reports R scapula tight again PT-OP-E Functional Tests Start: 10/28/22 09:19 Freq: Status: Active Protocol: Document 10/29/22 09:50 [facility] (Rec: 10/29/22 17:12 [facility] [id number]) Functional Tests Apley's Scratch Test Action 1- Left anterior shoulder Action 1- Right posterior shoulder Action 2- Left T2 Action 2- Right lateral neck Action 3- Left lateral hip Action 3- Right T7 PT-OP-H Neuro Start: 10/28/22 09:19 Freq: Status: Active Protocol: Document 10/29/22 09:50 SAK (Rec: 10/29/22 17:12 [facility] [id number]) Sensation Evaluation Gross Sensation Gross Sensation Left UE Impaired,Right UE Impaired Sensation Description Paresthesia Location Details Left Arm Light Touch Intact/Normal PT-OP-J Posture/Palpation/Skin Start: 10/28/22 09:19 Freq: Status: Active Protocol: Document 10/29/22 09:50 [facility] (Rec: 10/29/22 17:12 [facility] [id number]) Posture Evaluation Position Sitting Head/C-Spine Posture Forward Head T-Spine Posture Increased Kyphosis L-Spine Posture Increased Lordosis Shoulder Posture (L) Rounded,(R) Rounded Scapula Posture (L) Protracted,(R) Protracted Arm Posture (L) Internally Rotated,(R) Internally Rotated Pelvis Posture Anteriorly Tilted Palpation Assessment Location RC insertion Palpation Findings Tenderness Palpation Details entire joint line painful to palpation PT-OP-K Range of Motion Start: 10/28/22 09:19 Freq: Status: Active Protocol: Document 03/16/23 10:33 TH (Rec: 03/16/23 10:55 TH [id number]) Shoulder Goniometric Range of Motion Shoulder Right Flexion 90 Abduction 89 External Rotation at 0 degrees Abduction 80 Internal Rotation Behind Back (text) right buttock Comments Post manual Flex: 100 Abd: 95 ER: 85 IR: right beltline PT-OP-L Special Tests Start: 10/28/22 09:19 Freq: Status: Active Protocol: Document 10/29/22 09:50 [facility] (Rec: 10/29/22 17:12 [facility] [id number]) Special Tests Shoulder Special Tests Lift-Off Rotator Cuff Test Results positive Elevation Impingement Test Results positive Drop Arm Rotator Cuff Test Results positve PT-OP-M Strength Start: 10/28/22 09:19 Freq: Status: Active Protocol: Document 10/29/22 09:50 [facility] (Rec: 10/29/22 17:12 [facility] [id number]) Shoulder Strength Shoulder Manual Muscle Testing Left Flexion 4- Good- Extension 4- Good- Adduction 4 Good External Rotation 4- Good- Internal Rotation 4 Good PT-OP-N Lymphedema Start: 04/20/23 09:31 Freq: Status: Active Protocol: Document 04/20/23 09:32 [facility] (Rec: 04/20/23 10:17 [facility] [id number]) Lymphedema Measurements Upper Extremity Circumference Measurements Left Affected MCP 20.2 cm Dorsum of Hand 21 cm Wrist 20 cm 5 cm From Wrist Crease 27.3 cm 10 cm From Wrist Crease 32.5 cm 15 cm From Wrist Crease 35.6 cm 20 cm From Wrist Crease 37 cm 25 cm From Wrist Crease 45.2 cm 30 cm From Wrist Crease 51.4 cm 35 cm From Wrist Crease 50.4 cm 40 cm From Wrist Crease 45.5 cm Elbow Joint 36.3 cm Axilla 44.5 cm - 41.5 wrist to armpit Right Affected MCP 19.3 cm Dorsum of Hand 20.8 cm Wrist 18.6 cm 5 cm From Wrist Crease 24.2 cm 10 cm From Wrist Crease 28.8 cm 15 cm From Wrist Crease 31.9 cm 20 cm From Wrist Crease 32.9 cm 25 cm From Wrist Crease 41.7 cm 30 cm From Wrist Crease 48.4 cm 35 cm From Wrist Crease 48.6 cm 40 cm From Wrist Crease 45.3 cm Elbow Joint 32.9 cm Axilla 45.4 cm Lower Extremity Circumference Measurements Right Affected MT Heads 23.2 cm Mid-foot 23.8 cm Medial Malleolus 28.3 cm 10 cm From Medial Malleolus 28.5 cm 20 cm From Medial Malleolus 43 cm 30 cm From Medial Malleolus 44.5 cm 40 cm From Medial Malleolus 65.3 cm 50 cm From Medial Malleolus 72 cm Knee Joint 47.1 cm - groin 85.5 Left Affected MT Heads 23.3 cm Mid-foot 24.5 cm Medial Malleolus 25.2 cm 10 cm From Medial Malleolus 27 cm 20 cm From Medial Malleolus 40.3 cm 30 cm From Medial Malleolus 43.7 cm 40 cm From Medial Malleolus 54.8 cm 50 cm From Medial Malleolus 68.8 cm 60 cm From Medial Malleolus 73.5 cm Knee Joint 51.1 cm - groin 81.8 Comments Lymphedema Comments abdomen 122.3 hips (widest part) 146.0 PT-OP-Q Treatments Start: 10/28/22 09:19 Freq: Status: Active Protocol: Document 05/07/23 10:01 SP (Rec: 05/07/23 10:48 SP [id number]) Therapeutic Exercises Standing Exercises shld ext Equipment Used mirror for visual feedback Reps/Minutes 10x5 Comments SB R neutral trunk alignment, pull back elongation toward floor. R shld IR, ER Standing Exercise Name HEP reviewed Side right Resistance TB #1 peach Equipment Used towel roll under arm Reps/Minutes 2x10 Comments cued elbow at side inferior glide toward hip, SB trunk neutral- gd fm w/cue Manual Therapy Treatment Soft Tissue Mobilization superior Body Location R UT & LS Mobilization Type Rolling,Strumming Intensity/Depth Moderate Body Position s/l and sit post Body Location R lat & rhomoids & LT Mobilization Type Strumming,Sustained Pressure Intensity/Depth Moderate Body Position Sidelying Comments w/scap dep Joint Mobilizations ribs Comments R general depression lower and mid ribcage FM FF w/breathing and scap upward elevate rotation R AC jt Body Position Sidelying Comments R scap post; clavicle ant FM and percussion R GH jt Direction posterior Grade II Body Position seated scapulothoracic Joint R shld Direction elevation/depression, protraction/retraction Grade II Body Position Sidelying Reps/Duration 4min Comments PROM Self-Care/Home Management Treatment Education Other Education Assisted her with donning L arm sleeve. Discussed if not help at home, can call clinic and ask for PT/ VIDEO TECHNICIAN to support donning briefly. PT-OP-R Modalities Start: 10/28/22 09:19 Freq: Status: Active Protocol: Document 04/15/23 13:15 SAK (Rec: 04/15/23 14:02 SAK [id number]) Electric Stimulation Electric Stimulation Interferential Current (IFC) Body Location right shoulder Duration (Minutes) 15 Intensity 10 Target/Sweep Sweep High/Low High Patient Position Hooklying Combined With Heat/Cold Hot Pack PT-OP-T Assessment and Plan Start: 10/28/22 09:19 Freq: Status: Active Protocol: Document 05/07/23 10:01 SP (Rec: 05/07/23 10:48 [facility] [id number]) Physical Therapy Assessment Goals Five Impairment compensatory movement patterns right UE Impairment overactivation of upper traps, postural dysfunction impacting right shoulder function Short Term Goal (STG) Patient will be able to self- correct posture and compensatory movements right shoulder with visual feedback of mirror STG Duration 05/23/23 Assisted Goal (LTG) Patient will be able to perform HEP and do functional movements right UE with improved posture, without compensatory movements for improved right shoulder function LTG Duration 06/22/23 Four Impairment lymphedema (lipidema-type) iram UE's, LEs, abdomen Short Term Goal (STG) Patient to be instructed in all aspects of lymphedema care to include skin care, manual lymphatic drainage, compression, lymphedema exercises STG Duration 06/20/23 Assisted Goal (LTG) Patient circumferential measurements dec and stabilized (no inc or dec greater than 1 cm over the course of 1 week) and patient to obtain appropriate compression garments. Patient to be independent with all aspects of self-management for lymphedema/lipidema LTG Duration 07/21/23 Three Impairment activity tolerance Impairment Quickdash UE disability index score60% Assisted Goal (LTG) Improve QuickDash score to no greater than 30% as measure of improved activity tolerance with right UE 12/30/22: decreased to 39% 02/18/23: 43% today, more sore after no PT for 1 week. 04/20/23: 40% LTG Duration 07/21/23 Two Impairment unable to reach overhead or behind her back with right shoulder Short Term Goal (STG) Patient will be able to reach use right UE to do her hair, and be able to pull pants up on right without increase in pain 12/30/22: goal progress 02/17/23: goal mostly met 04/06/23: goal met STG Duration goal met Shoe Repairer Goal (LTG) Patient will demonstrate full ROM with right shoulder to allow her to do all usual activities 04/20/23: goal progress LTG Duration 07/21/23 One Impairment pain right shoulder as high as 8/10 Short Term Goal (STG) decrease pain to no greater than 6/10 with usual activities 12/30/22: pain decreased to 5/10 02/17/23: goal met STG Duration goal met Assisted Goal (LTG) decrease pain to no greater than 3/10 with all usual activities 04/06/23: goal progress though variable ability, when feeling better patient with tendency to reach without thinking and reports inc in pain. Also, weight of arms from lymphedema appears to contribute to shoulder dysfunction; patient will be requesting order for lymphedema treatment from PCP 04/20/23: pain generally 3-5/10 , progress LTG Duration 07/21/23 Assessment Summary Assessment Pt improved level shoulder alignment post manual and cues for trunk and arm alignment corrections with better understanding to continue carryover at home. Physical Therapy Plan Frequency and Duration Frequency of Treatment 2x/Week Duration of treatment (weeks) 12 Plan of Care Start Date 04/20/23 Plan of Care End Date 07/21/23 Therapeutic Interventions Therapeutic Interventions Aquatic Therapy,Home Exercise Program,Lymphedema Management, Manual Therapy,Patient/ Caregiver Education,Self-Care/ Home Management,Soft Tissue Mobilization,Taping, Therapeutic Activities, Therapeutic Exercises Modalities Cold Pack/Ice Massage,Electric Stimulation,Hot Packs, Infrared Therapy,Iontophoresis ,Ultrasound,Vasopneumatic Devices Next Visit Focus/Plan Next Note Type Treatment Note Next Visit Plan AC and GH, ribcage caudal MWM joint mobs; progress into overhead treatment of RUE
--- NOTE | 2023-05-12 13:29 | PT.OTN ---
Current Diagnoses Lymphedema, not elsewhere classified (05/12/23) Pain in right shoulder (05/12/23) Incomplete rotator cuff tear or rupture of right shoulder, not specified as traumatic (05/12/23) Superior glenoid labrum lesion of right shoulder, initial encounter (05/12/23) Physical Therapy Treatment Note PT-OP-A Visit Information Start: 10/28/22 09:19 Freq: Status: Active Protocol: Document 05/12/23 11:20 [facility] (Rec: 05/12/23 13:29 [facility] [id number]) Out-Patient Physical Therapy Visit Information Visit Information Visit Type Treatment Note Visit Note 06/07 Visit Start Time 11:31 Visit Stop Time 12:13 Total Visit Minutes 42 Visit Number 36 Number of PHARMACISTS Visits 0 PT-OP-B Current Condition Start: 10/28/22 09:19 Freq: Status: Active Protocol: Document 03/03/23 09:48 SAK (Rec: 03/03/23 10:38 SAK [id number]) Current Condition History of Current Condition Onset Date 1 1/2 years Current Complaints right History of Current Condition gradual onset right shoulder pain unknown reason. Increases with trying to reach overhead, out to side, or behind her back; pain and tingling. If tries to sleep on back both arms go numb. Unable to wear compression sleeve left due to pain right shoulder; patient previously seen by this PT for right shoulder pain and felt at that time pain at least some due to overuse right UE. Goes back to the doctor after PT ( Clifford Diggs). 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 Saw motion picture narrator. MRI right shoulder: incomplete RC tear, superior labral tear Prior Treatments and Tests Tylenol, ice, heat. Can't do UE ex at cardiac rehab, low tolerance for HEP previously instructed. Has TENS, but doesn't know how to use PT-OP-C Subjective Start: 10/28/22 09:19 Freq: Status: Active Protocol: Document 05/12/23 11:20 [facility] (Rec: 05/12/23 13:29 [facility] [id number]) OP-PT Subjective Patient Comments Patient Comments Pt reports she feels like her shoulder is improving Patient Reported Progress Improving PT-OP-E Functional Tests Start: 10/28/22 09:19 Freq: Status: Active Protocol: Document 10/29/22 09:50 SAK (Rec: 10/29/22 17:[address] [facility] [id number]) Functional Tests Apley's Scratch Test Action 1- Left anterior shoulder Action 1- Right posterior shoulder Action 2- Left T2 Action 2- Right lateral neck Action 3- Left lateral hip Action 3- Right T7 PT-OP-H Neuro Start: 10/28/22 09:19 Freq: Status: Active Protocol: Document 10/29/22 09:50 SAK (Rec: 10/29/22 17:[address] [facility] [id number]) Sensation Evaluation Gross Sensation Gross Sensation Left UE Impaired,Right UE Impaired Sensation Description Paresthesia Location Details Left Arm Light Touch Intact/Normal PT-OP-J Posture/Palpation/Skin Start: 10/28/22 09:19 Freq: Status: Active Protocol: Document 10/29/22 09:[address] [facility] (Rec: 10/29/22 17:[address] [facility] [id number]) Posture Evaluation Position Sitting Head/C-Spine Posture Forward Head T-Spine Posture Increased Kyphosis L-Spine Posture Increased Lordosis Shoulder Posture (L) Rounded,(R) Rounded Scapula Posture (L) Protracted,(R) Protracted Arm Posture (L) Internally Rotated,(R) Internally Rotated Pelvis Posture Anteriorly Tilted Palpation Assessment Location RC insertion Palpation Findings Tenderness Palpation Details entire joint line painful to palpation PT-OP-K Range of Motion Start: 10/28/22 09:19 Freq: Status: Active Protocol: Document 03/16/23 10:33 TH (Rec: 03/16/23 10:55 TH [id number]) Shoulder Goniometric Range of Motion Shoulder Right Flexion 90 Abduction 89 External Rotation at 0 degrees Abduction 80 Internal Rotation Behind Back (text) right buttock Comments Post manual Flex: 100 Abd: 95 ER: 85 IR: right beltline PT-OP-L Special Tests Start: 10/28/22 09:19 Freq: Status: Active Protocol: Document 10/29/22 09:50 SAK (Rec: 10/29/22 17:[address] [facility] [id number]) Special Tests Shoulder Special Tests Lift-Off Rotator Cuff Test Results positive Elevation Impingement Test Results positive Drop Arm Rotator Cuff Test Results positve PT-OP-M Strength Start: 10/28/22 09:19 Freq: Status: Active Protocol: Document 10/29/22 09:50 SAK (Rec: 10/29/22 17:[address] [facility] [id number]) Shoulder Strength Shoulder Manual Muscle Testing Left Flexion 4- Good- Extension 4- Good- Adduction 4 Good External Rotation 4- Good- Internal Rotation 4 Good PT-OP-N Lymphedema Start: 04/20/23 09:31 Freq: Status: Active Protocol: Document 04/20/23 09:[address] [facility] (Rec: 04/20/23 10:[address] [facility] [id number]) Lymphedema Measurements Upper Extremity Circumference Measurements Left Affected MCP 20.2 cm Dorsum of Hand 21 cm Wrist 20 cm 5 cm From Wrist Crease 27.3 cm 10 cm From Wrist Crease 32.5 cm 15 cm From Wrist Crease 35.6 cm 20 cm From Wrist Crease 37 cm 25 cm From Wrist Crease 45.2 cm 30 cm From Wrist Crease 51.4 cm 35 cm From Wrist Crease 50.4 cm 40 cm From Wrist Crease 45.5 cm Elbow Joint 36.3 cm Axilla 44.5 cm - 41.5 wrist to armpit Right Affected MCP 19.3 cm Dorsum of Hand 20.8 cm Wrist 18.6 cm 5 cm From Wrist Crease 24.2 cm 10 cm From Wrist Crease 28.8 cm 15 cm From Wrist Crease 31.9 cm 20 cm From Wrist Crease 32.9 cm 25 cm From Wrist Crease 41.7 cm 30 cm From Wrist Crease 48.4 cm 35 cm From Wrist Crease 48.6 cm 40 cm From Wrist Crease 45.3 cm Elbow Joint 32.9 cm Axilla 45.4 cm Lower Extremity Circumference Measurements Right Affected MT Heads 23.2 cm Mid-foot 23.8 cm Medial Malleolus 28.3 cm 10 cm From Medial Malleolus 28.5 cm 20 cm From Medial Malleolus 43 cm 30 cm From Medial Malleolus 44.5 cm 40 cm From Medial Malleolus 65.3 cm 50 cm From Medial Malleolus 72 cm Knee Joint 47.1 cm - groin 85.5 Left Affected MT Heads 23.3 cm Mid-foot 24.5 cm Medial Malleolus 25.2 cm 10 cm From Medial Malleolus 27 cm 20 cm From Medial Malleolus 40.3 cm 30 cm From Medial Malleolus 43.7 cm 40 cm From Medial Malleolus 54.8 cm 50 cm From Medial Malleolus 68.8 cm 60 cm From Medial Malleolus 73.5 cm Knee Joint 51.1 cm - groin 81.8 Comments Lymphedema Comments abdomen 122.3 hips (widest part) 146.0 PT-OP-Q Treatments Start: 10/28/22 09:19 Freq: Status: Active Protocol: Document 05/12/23 11:20 [facility] (Rec: 05/12/23 13:29 [facility] [id number]) Manual Therapy Treatment Soft Tissue Mobilization superior Body Location R UT & LS Mobilization Type Rolling,Strumming Intensity/Depth Moderate Body Position s/l Comments w/rot scap Joint Mobilizations SC Joint R inf FM w/scap R AC jt Joint w/overhead motion w/dowel FM R GH jt Joint R Direction post glide, shear and IR FM; lat glide, inf glide and shear FM PT-OP-R Modalities Start: 10/28/22 09:19 Freq: Status: Active Protocol: Document 04/15/23 13:[address] [facility] (Rec: 04/15/23 14:02 SAK [id number]) Electric Stimulation Electric Stimulation Interferential Current (IFC) Body Location right shoulder Duration (Minutes) 15 Intensity 10 Target/Sweep Sweep High/Low High Patient Position Hooklying Combined With Heat/Cold Hot Pack PT-OP-T Assessment and Plan Start: 10/28/22 09:19 Freq: Status: Active Protocol: Document 05/12/23 11:20 [facility] (Rec: 05/12/23 13:29 [facility] [id number]) Physical Therapy Assessment Goals Five Impairment compensatory movement patterns right UE Impairment overactivation of upper traps, postural dysfunction impacting right shoulder function Short Term Goal (STG) Patient will be able to self- correct posture and compensatory movements right shoulder with visual feedback of mirror STG Duration 05/23/23 Skilled Nursing Goal (LTG) Patient will be able to perform HEP and do functional movements right UE with improved posture, without compensatory movements for improved right shoulder function LTG Duration 06/22/23 Four Impairment lymphedema (lipidema-type) iram UE's, LEs, abdomen Short Term Goal (STG) Patient to be instructed in all aspects of lymphedema care to include skin care, manual lymphatic drainage, compression, lymphedema exercises STG Duration 06/20/23 Turbo Electric Operator Goal (LTG) Patient circumferential measurements dec and stabilized (no inc or dec greater than 1 cm over the course of 1 week) and patient to obtain appropriate compression garments. Patient to be independent with all aspects of self-management for lymphedema/lipidema LTG Duration 07/21/23 Three Impairment activity tolerance Impairment Quickdash UE disability index score60% Turbo Electric Operator Goal (LTG) Improve QuickDash score to no greater than 30% as measure of improved activity tolerance with right UE 12/30/22: decreased to 39% 02/18/23: 43% today, more sore after no PT for 1 week. 04/20/23: 40% LTG Duration 07/21/23 Two Impairment unable to reach overhead or behind her back with right shoulder Short Term Goal (STG) Patient will be able to reach use right UE to do her hair, and be able to pull pants up on right without increase in pain 12/30/22: goal progress 02/17/23: goal mostly met 04/06/23: goal met STG Duration goal met Turbo Electric Operator Goal (LTG) Patient will demonstrate full ROM with right shoulder to allow her to do all usual activities 04/20/23: goal progress LTG Duration 07/21/23 One Impairment pain right shoulder as high as 8/10 Short Term Goal (STG) decrease pain to no greater than 6/10 with usual activities 12/30/22: pain decreased to 5/10 02/17/23: goal met STG Duration goal met Skilled Nursing Goal (LTG) decrease pain to no greater than 3/10 with all usual activities 04/06/23: goal progress though variable ability, when feeling better patient with tendency to reach without thinking and reports inc in pain. Also, weight of arms from lymphedema appears to contribute to shoulder dysfunction; patient will be requesting order for lymphedema treatment from PCP 04/20/23: pain generally 3-5/10 , progress LTG Duration 07/21/23 Assessment Summary Assessment Pt presented w/improved ROM overall today and had even further ROM improvement after manual treatment. Physical Therapy Plan Frequency and Duration Frequency of Treatment 2x/Week Duration of treatment (weeks) 12 Plan of Care Start Date 04/20/23 Plan of Care End Date 07/21/23 Next Visit Focus/Plan Next Note Type Treatment Note Next Visit Plan Cont to work on overhead mobility and rotations manually. Facilitate core through UE PNF patterns
--- NOTE | 2023-05-14 10:45 | PT.OTN ---
Current Diagnoses Lymphedema, not elsewhere classified (05/14/23) Pain in right shoulder (05/14/23) Incomplete rotator cuff tear or rupture of right shoulder, not specified as traumatic (05/14/23) Superior glenoid labrum lesion of right shoulder, initial encounter (05/14/23) Physical Therapy Treatment Note PT-OP-A Visit Information Start: 10/28/22 09:19 Freq: Status: Active Protocol: Document 05/14/23 10:01 SP (Rec: 05/14/23 10:48 SP [id number]) Out-Patient Physical Therapy Visit Information Visit Information Visit Type Treatment Note Visit Note 07/08 Visit Start Time 10:01 Visit Stop Time 10:45 Total Visit Minutes 44 Visit Number 37 Number of ENROLLMENT ELIGIBILITY REPRESENTATIVE Visits 1 Evaluation Information Evaluation Date 10/29/22 Precautions Precautions cardiac: HI, has done cardiac rehab lymphedema Sensitivities to Latex. PT-OP-B Current Condition Start: 10/28/22 09:19 Freq: Status: Active Protocol: Document 03/03/23 09:48 SAK (Rec: 03/03/23 10:38 SAK [id number]) Current Condition History of Current Condition Onset Date 1 1/2 years Current Complaints right History of Current Condition gradual onset right shoulder pain unknown reason. Increases with trying to reach overhead, out to side, or behind her back; pain and tingling. If tries to sleep on back both arms go numb. Unable to wear compression sleeve left due to pain right shoulder; patient previously seen by this PT for right shoulder pain and felt at that time pain at least some due to overuse right UE. Goes back to the doctor after PT ( Clifford Diggs). 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 Saw vice president of communications. MRI right shoulder: incomplete RC tear, superior labral tear Prior Treatments and Tests Tylenol, ice, heat. Can't do UE ex at cardiac rehab, low tolerance for HEP previously instructed. Has TENS, but doesn't know how to use PT-OP-C Subjective Start: 10/28/22 09:19 Freq: Status: Active Protocol: Document 05/14/23 10:01 SP (Rec: 05/14/23 10:48 SP [id number]) OP-PT Subjective Patient Comments Patient Comments Pt reported R arm really sore , think slept wrong and L arm feeling wanting sympathy too. Pt stated Ktaping lasted for 2 days before removed give skin/shld break (no adverse affect reactions), helps support proper positioning. PT-OP-E Functional Tests Start: 10/28/22 09:19 Freq: Status: Active Protocol: Document 10/29/22 09:50 SAK (Rec: 10/29/22 17:12 [facility] [id number]) Functional Tests Apley's Scratch Test Action 1- Left anterior shoulder Action 1- Right posterior shoulder Action 2- Left T2 Action 2- Right lateral neck Action 3- Left lateral hip Action 3- Right T7 PT-OP-H Neuro Start: 10/28/22 09:19 Freq: Status: Active Protocol: Document 10/29/22 09:50 SAK (Rec: 10/29/22 17:12 [facility] [id number]) Sensation Evaluation Gross Sensation Gross Sensation Left UE Impaired,Right UE Impaired Sensation Description Paresthesia Location Details Left Arm Light Touch Intact/Normal PT-OP-J Posture/Palpation/Skin Start: 10/28/22 09:19 Freq: Status: Active Protocol: Document 10/29/22 09:50 SAK (Rec: 10/29/22 17:12 [facility] [id number]) Posture Evaluation Position Sitting Head/C-Spine Posture Forward Head T-Spine Posture Increased Kyphosis L-Spine Posture Increased Lordosis Shoulder Posture (L) Rounded,(R) Rounded Scapula Posture (L) Protracted,(R) Protracted Arm Posture (L) Internally Rotated,(R) Internally Rotated Pelvis Posture Anteriorly Tilted Palpation Assessment Location RC insertion Palpation Findings Tenderness Palpation Details entire joint line painful to palpation PT-OP-K Range of Motion Start: 10/28/22 09:19 Freq: Status: Active Protocol: Document 03/16/23 10:33 TH (Rec: 03/16/23 10:55 TH [id number]) Shoulder Goniometric Range of Motion Shoulder Right Flexion 90 Abduction 89 External Rotation at 0 degrees Abduction 80 Internal Rotation Behind Back (text) right buttock Comments Post manual Flex: 100 Abd: 95 ER: 85 IR: right beltline PT-OP-L Special Tests Start: 10/28/22 09:19 Freq: Status: Active Protocol: Document 10/29/22 09:50 SAK (Rec: 10/29/22 17:12 [facility] [id number]) Special Tests Shoulder Special Tests Lift-Off Rotator Cuff Test Results positive Elevation Impingement Test Results positive Drop Arm Rotator Cuff Test Results positve PT-OP-M Strength Start: 10/28/22 09:19 Freq: Status: Active Protocol: Document 10/29/22 09:50 SAK (Rec: 10/29/22 17:12 SAK [id number]) Shoulder Strength Shoulder Manual Muscle Testing Left Flexion 4- Good- Extension 4- Good- Adduction 4 Good External Rotation 4- Good- Internal Rotation 4 Good PT-OP-N Lymphedema Start: 04/20/23 09:31 Freq: Status: Active Protocol: Document 04/20/23 09:32 SAK (Rec: 04/20/23 10:17 SAK [id number]) Lymphedema Measurements Upper Extremity Circumference Measurements Left Affected MCP 20.2 cm Dorsum of Hand 21 cm Wrist 20 cm 5 cm From Wrist Crease 27.3 cm 10 cm From Wrist Crease 32.5 cm 15 cm From Wrist Crease 35.6 cm 20 cm From Wrist Crease 37 cm 25 cm From Wrist Crease 45.2 cm 30 cm From Wrist Crease 51.4 cm 35 cm From Wrist Crease 50.4 cm 40 cm From Wrist Crease 45.5 cm Elbow Joint 36.3 cm Axilla 44.5 cm - 41.5 wrist to armpit Right Affected MCP 19.3 cm Dorsum of Hand 20.8 cm Wrist 18.6 cm 5 cm From Wrist Crease 24.2 cm 10 cm From Wrist Crease 28.8 cm 15 cm From Wrist Crease 31.9 cm 20 cm From Wrist Crease 32.9 cm 25 cm From Wrist Crease 41.7 cm 30 cm From Wrist Crease 48.4 cm 35 cm From Wrist Crease 48.6 cm 40 cm From Wrist Crease 45.3 cm Elbow Joint 32.9 cm Axilla 45.4 cm Lower Extremity Circumference Measurements Right Affected MT Heads 23.2 cm Mid-foot 23.8 cm Medial Malleolus 28.3 cm 10 cm From Medial Malleolus 28.5 cm 20 cm From Medial Malleolus 43 cm 30 cm From Medial Malleolus 44.5 cm 40 cm From Medial Malleolus 65.3 cm 50 cm From Medial Malleolus 72 cm Knee Joint 47.1 cm - groin 85.5 Left Affected MT Heads 23.3 cm Mid-foot 24.5 cm Medial Malleolus 25.2 cm 10 cm From Medial Malleolus 27 cm 20 cm From Medial Malleolus 40.3 cm 30 cm From Medial Malleolus 43.7 cm 40 cm From Medial Malleolus 54.8 cm 50 cm From Medial Malleolus 68.8 cm 60 cm From Medial Malleolus 73.5 cm Knee Joint 51.1 cm - groin 81.8 Comments Lymphedema Comments abdomen 122.3 hips (widest part) 146.0 PT-OP-Q Treatments Start: 10/28/22 09:19 Freq: Status: Active Protocol: Document 05/14/23 10:01 SP (Rec: 05/14/23 10:48 SP [id number]) Therapeutic Exercises Standing Exercises Shoulder IR stretch Standing Exercise Name reviewed Side right Resistance LUE assist RLE Equipment Used W/ towel Reps/Minutes 5x / 10 sec Comments improved post R hip to Post SI shoulder ext facing away Standing Exercise Name HEP Side right Resistance TB #1 peach (OTB next) Equipment Used CUed TA Reps/Minutes x20 Comments good scap ROM gliding inferior ext and AAROM FF OH, level shld should add Standing Exercise Name HEP Side right Resistance #1 peach (noted efforted resistance) Equipment Used mirror available for self corrections Reps/Minutes x20 Comments cued inferior humeral glide & TA, improved level shld R shld IR, ER Standing Exercise Name HEP reviewed Side right Resistance TB #1 peach Equipment Used towel roll under arm, ER iram together, Reps/Minutes 2x10 Comments cued elbow at side inferior glide toward hip, SB trunk neutral- gd fm w/cue Manual Therapy Treatment Soft Tissue Mobilization superior Body Location R UT & LS Mobilization Type Rolling,Strumming Intensity/Depth Moderate Body Position s/l Comments w/rot scap post Body Location R lat & rhomoids & LT Mobilization Type Strumming,Sustained Pressure Intensity/Depth Moderate Body Position Sidelying Comments w/scap dep Joint Mobilizations SC Joint R inf FM w/scap ribs Comments R general depression lower and mid ribcage FM FF w/breathing and scap upward elevate rotation R AC jt Joint w/overhead motion AAROM FM FF R GH jt Joint R Direction post glide, shear and IR FM; lat glide, inf glide and shear FM scapulothoracic Joint R shld Direction elevation/depression, protraction/retraction Grade II Body Position Sidelying Reps/Duration 4min Comments PROM Taping right shoulder Body Location R shld Treatment Focus pain management Type of Tape kinesiotape Skin Inspection intact Comments 2 single strips: Ant humeral head mid post scap, distal deltoid V med/lat AC jt to middle trap region, proximity and posterior GH jt support. *Patient request not tape back of arm or spine due to difficulty removing Manual Techniques PROM R shld Comments Flex/abd/ ER painfree range Self-Care/Home Management Treatment Education Other Education Assisted her with donning L arm sleeve. Discussed if not help at home, can call clinic and ask for PT/ ENROLLMENT ELIGIBILITY REPRESENTATIVE to support donning briefly. PT-OP-R Modalities Start: 10/28/22 09:19 Freq: Status: Active Protocol: Document 04/15/23 13:15 SAK (Rec: 04/15/23 14:02 SAK [id number]) Electric Stimulation Electric Stimulation Interferential Current (IFC) Body Location right shoulder Duration (Minutes) 15 Intensity 10 Target/Sweep Sweep High/Low High Patient Position Hooklying Combined With Heat/Cold Hot Pack PT-OP-T Assessment and Plan Start: 10/28/22 09:19 Freq: Status: Active Protocol: Document 05/14/23 10:01 SP (Rec: 05/14/23 10:48 SP [id number]) Physical Therapy Assessment Goals Five Impairment compensatory movement patterns right UE Impairment overactivation of upper traps, postural dysfunction impacting right shoulder function Short Term Goal (STG) Patient will be able to self- correct posture and compensatory movements right shoulder with visual feedback of mirror STG Duration 05/23/23 Residential Goal (LTG) Patient will be able to perform HEP and do functional movements right UE with improved posture, without compensatory movements for improved right shoulder function LTG Duration 06/22/23 Four Impairment lymphedema (lipidema-type) iram UE's, LEs, abdomen Short Term Goal (STG) Patient to be instructed in all aspects of lymphedema care to include skin care, manual lymphatic drainage, compression, lymphedema exercises STG Duration 06/20/23 Residential Goal (LTG) Patient circumferential measurements dec and stabilized (no inc or dec greater than 1 cm over the course of 1 week) and patient to obtain appropriate compression garments. Patient to be independent with all aspects of self-management for lymphedema/lipidema LTG Duration 07/21/23 Three Impairment activity tolerance Impairment Quickdash UE disability index score60% Head Packager Goal (LTG) Improve QuickDash score to no greater than 30% as measure of improved activity tolerance with right UE 12/30/22: decreased to 39% 02/18/23: 43% today, more sore after no PT for 1 week. 04/20/23: 40% LTG Duration 07/21/23 Two Impairment unable to reach overhead or behind her back with right shoulder Short Term Goal (STG) Patient will be able to reach use right UE to do her hair, and be able to pull pants up on right without increase in pain 12/30/22: goal progress 02/17/23: goal mostly met 04/06/23: goal met STG Duration goal met Residential Goal (LTG) Patient will demonstrate full ROM with right shoulder to allow her to do all usual activities 04/20/23: goal progress LTG Duration 07/21/23 One Impairment pain right shoulder as high as 8/10 Short Term Goal (STG) decrease pain to no greater than 6/10 with usual activities 12/30/22: pain decreased to 5/10 02/17/23: goal met STG Duration goal met Head Packager Goal (LTG) decrease pain to no greater than 3/10 with all usual activities 04/06/23: goal progress though variable ability, when feeling better patient with tendency to reach without thinking and reports inc in pain. Also, weight of arms from lymphedema appears to contribute to shoulder dysfunction; patient will be requesting order for lymphedema treatment from PCP 04/20/23: pain generally 3-5/10 , progress LTG Duration 07/21/23 Assessment Summary Assessment Pt improve R scapular ROM side abd post manual and carryover during ther ex standing with no reports stress on R shld eccentric assisted OH, improved level shld corrections. Pt limited R shld IR, improved ROM post stretching and discussed continue at home support donning shirts. Assisted pt complete full don L arm sleeve . Physical Therapy Plan Frequency and Duration Frequency of Treatment 2x/Week Duration of treatment (weeks) 12 Plan of Care Start Date 04/20/23 Plan of Care End Date 07/21/23 Therapeutic Interventions Therapeutic Interventions Aquatic Therapy,Home Exercise Program,Lymphedema Management, Manual Therapy,Patient/ Caregiver Education,Self-Care/ Home Management,Soft Tissue Mobilization,Taping, Therapeutic Activities, Therapeutic Exercises Modalities Cold Pack/Ice Massage,Electric Stimulation,Hot Packs, Infrared Therapy,Iontophoresis ,Ultrasound,Vasopneumatic Devices Next Visit Focus/Plan Next Note Type Treatment Note Next Visit Plan CHeck postural alignment, Cont to work on overhead mobility and rotations manually for proper ROM without compenstaitions R. Facilitate core through UE PNF patterns
--- NOTE | 2023-05-19 15:25 | PT.OTN ---
Current Diagnoses Lymphedema, not elsewhere classified (05/19/23) Pain in right shoulder (05/19/23) Incomplete rotator cuff tear or rupture of right shoulder, not specified as traumatic (05/19/23) Superior glenoid labrum lesion of right shoulder, initial encounter (05/19/23) Physical Therapy Treatment Note PT-OP-A Visit Information Start: 10/28/22 09:19 Freq: Status: Active Protocol: Document 05/19/23 11:37 [facility] (Rec: 05/19/23 15:25 [facility] [id number]) Out-Patient Physical Therapy Visit Information Visit Information Visit Type Treatment Note Visit Note 08/08 Visit Start Time 11:35 Visit Stop Time 12:16 Total Visit Minutes 41 Visit Number 38 Number of [employer] Visits 0 PT-OP-B Current Condition Start: 10/28/22 09:19 Freq: Status: Active Protocol: Document 03/03/23 09:48 SAK (Rec: 03/03/23 10:38 SAK [id number]) Current Condition History of Current Condition Onset Date 1 1/2 years Current Complaints right History of Current Condition gradual onset right shoulder pain unknown reason. Increases with trying to reach overhead, out to side, or behind her back; pain and tingling. If tries to sleep on back both arms go numb. Unable to wear compression sleeve left due to pain right shoulder; patient previously seen by this PT for right shoulder pain and felt at that time pain at least some due to overuse right UE. Goes back to the doctor after PT ( Clifford Diggs). 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 Saw usability engineer. MRI right shoulder: incomplete RC tear, superior labral tear Prior Treatments and Tests Tylenol, ice, heat. Can't do UE ex at cardiac rehab, low tolerance for HEP previously instructed. Has TENS, but doesn't know how to use PT-OP-C Subjective Start: 10/28/22 09:19 Freq: Status: Active Protocol: Document 05/19/23 11:37 [facility] (Rec: 05/19/23 15:25 [facility] [id number]) OP-PT Subjective Patient Comments Patient Comments Pt reports her shoulder has been better but B hips hav been painful PT-OP-E Functional Tests Start: 10/28/22 09:19 Freq: Status: Active Protocol: Document 10/29/22 09:50 SAK (Rec: 10/29/22 17:12 [facility] [id number]) Functional Tests Apley's Scratch Test Action 1- Left anterior shoulder Action 1- Right posterior shoulder Action 2- Left T2 Action 2- Right lateral neck Action 3- Left lateral hip Action 3- Right T7 PT-OP-H Neuro Start: 10/28/22 09:19 Freq: Status: Active Protocol: Document 10/29/22 09:50 SAK (Rec: 10/29/22 17:12 [facility] [id number]) Sensation Evaluation Gross Sensation Gross Sensation Left UE Impaired,Right UE Impaired Sensation Description Paresthesia Location Details Left Arm Light Touch Intact/Normal PT-OP-J Posture/Palpation/Skin Start: 10/28/22 09:19 Freq: Status: Active Protocol: Document 10/29/22 09:50 SAK (Rec: 10/29/22 17:12 [facility] [id number]) Posture Evaluation Position Sitting Head/C-Spine Posture Forward Head T-Spine Posture Increased Kyphosis L-Spine Posture Increased Lordosis Shoulder Posture (L) Rounded,(R) Rounded Scapula Posture (L) Protracted,(R) Protracted Arm Posture (L) Internally Rotated,(R) Internally Rotated Pelvis Posture Anteriorly Tilted Palpation Assessment Location RC insertion Palpation Findings Tenderness Palpation Details entire joint line painful to palpation PT-OP-K Range of Motion Start: 10/28/22 09:19 Freq: Status: Active Protocol: Document 03/16/23 10:33 TH (Rec: 03/16/23 10:55 TH [id number]) Shoulder Goniometric Range of Motion Shoulder Right Flexion 90 Abduction 89 External Rotation at 0 degrees Abduction 80 Internal Rotation Behind Back (text) right buttock Comments Post manual Flex: 100 Abd: 95 ER: 85 IR: right beltline PT-OP-L Special Tests Start: 10/28/22 09:19 Freq: Status: Active Protocol: Document 10/29/22 09:50 SAK (Rec: 10/29/22 17:12 [facility] [id number]) Special Tests Shoulder Special Tests Lift-Off Rotator Cuff Test Results positive Elevation Impingement Test Results positive Drop Arm Rotator Cuff Test Results positve PT-OP-M Strength Start: 10/28/22 09:19 Freq: Status: Active Protocol: Document 10/29/22 09:50 SAK (Rec: 10/29/22 17:12 [facility] [id number]) Shoulder Strength Shoulder Manual Muscle Testing Left Flexion 4- Good- Extension 4- Good- Adduction 4 Good External Rotation 4- Good- Internal Rotation 4 Good PT-OP-N Lymphedema Start: 04/20/23 09:31 Freq: Status: Active Protocol: Document 04/20/23 09:32 [facility] (Rec: 04/20/23 10:17 [facility] [id number]) Lymphedema Measurements Upper Extremity Circumference Measurements Left Affected MCP 20.2 cm Dorsum of Hand 21 cm Wrist 20 cm 5 cm From Wrist Crease 27.3 cm 10 cm From Wrist Crease 32.5 cm 15 cm From Wrist Crease 35.6 cm 20 cm From Wrist Crease 37 cm 25 cm From Wrist Crease 45.2 cm 30 cm From Wrist Crease 51.4 cm 35 cm From Wrist Crease 50.4 cm 40 cm From Wrist Crease 45.5 cm Elbow Joint 36.3 cm Axilla 44.5 cm - 41.5 wrist to armpit Right Affected MCP 19.3 cm Dorsum of Hand 20.8 cm Wrist 18.6 cm 5 cm From Wrist Crease 24.2 cm 10 cm From Wrist Crease 28.8 cm 15 cm From Wrist Crease 31.9 cm 20 cm From Wrist Crease 32.9 cm 25 cm From Wrist Crease 41.7 cm 30 cm From Wrist Crease 48.4 cm 35 cm From Wrist Crease 48.6 cm 40 cm From Wrist Crease 45.3 cm Elbow Joint 32.9 cm Axilla 45.4 cm Lower Extremity Circumference Measurements Right Affected MT Heads 23.2 cm Mid-foot 23.8 cm Medial Malleolus 28.3 cm 10 cm From Medial Malleolus 28.5 cm 20 cm From Medial Malleolus 43 cm 30 cm From Medial Malleolus 44.5 cm 40 cm From Medial Malleolus 65.3 cm 50 cm From Medial Malleolus 72 cm Knee Joint 47.1 cm - groin 85.5 Left Affected MT Heads 23.3 cm Mid-foot 24.5 cm Medial Malleolus 25.2 cm 10 cm From Medial Malleolus 27 cm 20 cm From Medial Malleolus 40.3 cm 30 cm From Medial Malleolus 43.7 cm 40 cm From Medial Malleolus 54.8 cm 50 cm From Medial Malleolus 68.8 cm 60 cm From Medial Malleolus 73.5 cm Knee Joint 51.1 cm - groin 81.8 Comments Lymphedema Comments abdomen 122.3 hips (widest part) 146.0 PT-OP-Q Treatments Start: 10/28/22 09:19 Freq: Status: Active Protocol: Document 05/19/23 11:37 [facility] (Rec: 05/19/23 15:25 [facility] [id number]) Manual Therapy Treatment Soft Tissue Mobilization post Body Location R lat & rhomoids & LT Mobilization Type Strumming,Sustained Pressure Intensity/Depth Moderate Body Position Sitting Joint Mobilizations SC Joint R inf FM w/scap thoracic Comments PA T2-4 r FM seated ribs Comments R dep R 8 FM w/SB R AP 1st rib; PA rib, caudal 1st rib R GH jt Joint R Direction post FM Taping right shoulder Body Location R shld Treatment Focus pain management Type of Tape kinesiotape Skin Inspection intact Comments 3 single strips: Ant humeral head to post lat scap, deltoid Y, coracoid to post sup scap *Patient request not tape back of arm or spine due to difficulty removing PT-OP-R Modalities Start: 10/28/22 09:19 Freq: Status: Active Protocol: Document 04/15/23 13:15 [facility] (Rec: 04/15/23 14:02 [facility] [id number]) Electric Stimulation Electric Stimulation Interferential Current (IFC) Body Location right shoulder Duration (Minutes) 15 Intensity 10 Target/Sweep Sweep High/Low High Patient Position Hooklying Combined With Heat/Cold Hot Pack PT-OP-T Assessment and Plan Start: 10/28/22 09:19 Freq: Status: Active Protocol: Document 05/19/23 11:37 [facility] (Rec: 05/19/23 15:25 [facility] [id number]) Physical Therapy Assessment Goals Five Impairment compensatory movement patterns right UE Impairment overactivation of upper traps, postural dysfunction impacting right shoulder function Short Term Goal (STG) Patient will be able to self- correct posture and compensatory movements right shoulder with visual feedback of mirror STG Duration 05/23/23 Process Architect Goal (LTG) Patient will be able to perform HEP and do functional movements right UE with improved posture, without compensatory movements for improved right shoulder function LTG Duration 06/22/23 Four Impairment lymphedema (lipidema-type) iram UE's, LEs, abdomen Short Term Goal (STG) Patient to be instructed in all aspects of lymphedema care to include skin care, manual lymphatic drainage, compression, lymphedema exercises STG Duration 06/20/23 Process Architect Goal (LTG) Patient circumferential measurements dec and stabilized (no inc or dec greater than 1 cm over the course of 1 week) and patient to obtain appropriate compression garments. Patient to be independent with all aspects of self-management for lymphedema/lipidema LTG Duration 07/21/23 Three Impairment activity tolerance Impairment Quickdash UE disability index score60% Senior Living Goal (LTG) Improve QuickDash score to no greater than 30% as measure of improved activity tolerance with right UE 12/30/22: decreased to 39% 02/18/23: 43% today, more sore after no PT for 1 week. 04/20/23: 40% LTG Duration 07/21/23 Two Impairment unable to reach overhead or behind her back with right shoulder Short Term Goal (STG) Patient will be able to reach use right UE to do her hair, and be able to pull pants up on right without increase in pain 12/30/22: goal progress 02/17/23: goal mostly met 04/06/23: goal met STG Duration goal met Process Architect Goal (LTG) Patient will demonstrate full ROM with right shoulder to allow her to do all usual activities 04/20/23: goal progress LTG Duration 07/21/23 One Impairment pain right shoulder as high as 8/10 Short Term Goal (STG) decrease pain to no greater than 6/10 with usual activities 12/30/22: pain decreased to 5/10 02/17/23: goal met STG Duration goal met Senior Living Goal (LTG) decrease pain to no greater than 3/10 with all usual activities 04/06/23: goal progress though variable ability, when feeling better patient with tendency to reach without thinking and reports inc in pain. Also, weight of arms from lymphedema appears to contribute to shoulder dysfunction; patient will be requesting order for lymphedema treatment from PCP 04/20/23: pain generally 3-5/10 , progress LTG Duration 07/21/23 Assessment Summary Assessment After treatment, pt had improved flex and 90/90 ER AROM and PROm of R hadd with manual treatment.She cont to have a lot of thoracic cage immboility Physical Therapy Plan Frequency and Duration Frequency of Treatment 2x/Week Duration of treatment (weeks) 12 Plan of Care Start Date 04/20/23 Plan of Care End Date 07/21/23 Next Visit Focus/Plan Next Note Type Treatment Note Next Visit Plan Cont to work on overhead mobility and rotations manually. Facilitate core through UE PNF patterns
--- NOTE | 2023-05-21 10:51 | PT.OTN ---
Current Diagnoses Lymphedema, not elsewhere classified (05/21/23) Pain in right shoulder (05/21/23) Incomplete rotator cuff tear or rupture of right shoulder, not specified as traumatic (05/21/23) Superior glenoid labrum lesion of right shoulder, initial encounter (05/21/23) Physical Therapy Treatment Note PT-OP-A Visit Information Start: 10/28/22 09:19 Freq: Status: Active Protocol: Document 05/21/23 10:14 SP (Rec: 05/21/23 10:53 SP [id number]) Out-Patient Physical Therapy Visit Information Visit Information Visit Type Treatment Note Visit Note 09/07 Visit Start Time 10:14 Visit Stop Time 10:51 Total Visit Minutes 37 Visit Number 39 Number of BLOCKER AND CUTTER CONTACT LENS Visits 1 Evaluation Information Evaluation Date 10/29/22 PT-OP-B Current Condition Start: 10/28/22 09:19 Freq: Status: Active Protocol: Document 03/03/23 09:48 SAK (Rec: 03/03/23 10:38 SAK [id number]) Current Condition History of Current Condition Onset Date 1 1/2 years Current Complaints right History of Current Condition gradual onset right shoulder pain unknown reason. Increases with trying to reach overhead, out to side, or behind her back; pain and tingling. If tries to sleep on back both arms go numb. Unable to wear compression sleeve left due to pain right shoulder; patient previously seen by this PT for right shoulder pain and felt at that time pain at least some due to overuse right UE. Goes back to the doctor after PT ( Clifford Diggs). 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 Saw wash oil pump operator. MRI right shoulder: incomplete RC tear, superior labral tear Prior Treatments and Tests Tylenol, ice, heat. Can't do UE ex at cardiac rehab, low tolerance for HEP previously instructed. Has TENS, but doesn't know how to use PT-OP-C Subjective Start: 10/28/22 09:19 Freq: Status: Active Protocol: Document 05/21/23 10:14 SP (Rec: 05/21/23 10:53 SP [id number]) OP-PT Subjective Patient Comments Patient Comments Pt reports has appt with specialist to acquire compression UE sleeves next week. She stated the manual with support into the ribcage thinks is helping with ROM with less pain. She is seeing improvement in activities. PT-OP-E Functional Tests Start: 10/28/22 09:19 Freq: Status: Active Protocol: Document 10/29/22 09:50 SAK (Rec: 10/29/22 17:12 SAK [id number]) Functional Tests Apley's Scratch Test Action 1- Left anterior shoulder Action 1- Right posterior shoulder Action 2- Left T2 Action 2- Right lateral neck Action 3- Left lateral hip Action 3- Right T7 PT-OP-H Neuro Start: 10/28/22 09:19 Freq: Status: Active Protocol: Document 10/29/22 09:50 SAK (Rec: 10/29/22 17:12 [facility] [id number]) Sensation Evaluation Gross Sensation Gross Sensation Left UE Impaired,Right UE Impaired Sensation Description Paresthesia Location Details Left Arm Light Touch Intact/Normal PT-OP-J Posture/Palpation/Skin Start: 10/28/22 09:19 Freq: Status: Active Protocol: Document 10/29/22 09:50 SAK (Rec: 10/29/22 17:12 [facility] [id number]) Posture Evaluation Position Sitting Head/C-Spine Posture Forward Head T-Spine Posture Increased Kyphosis L-Spine Posture Increased Lordosis Shoulder Posture (L) Rounded,(R) Rounded Scapula Posture (L) Protracted,(R) Protracted Arm Posture (L) Internally Rotated,(R) Internally Rotated Pelvis Posture Anteriorly Tilted Palpation Assessment Location RC insertion Palpation Findings Tenderness Palpation Details entire joint line painful to palpation PT-OP-K Range of Motion Start: 10/28/22 09:19 Freq: Status: Active Protocol: Document 05/21/23 10:14 SP (Rec: 05/21/23 10:53 SP [id number]) Shoulder Goniometric Range of Motion Shoulder Left Shoulder ROM WFL No Testing Position Sitting Flexion 138 Extension 45 Abduction 100 External Rotation at 0 degrees Abduction 80 Comments seated L shld AROM: FF improved de deg ABD improved 25 dedeg Ext: improved 35 dedeg ER: improved 25 de deg Right Testing Position Sitting Flexion 104 Abduction 95 External Rotation at 0 degrees Abduction 62 Internal Rotation Behind Back (text) right SI Comments seated AROM R shld: FF improved 14 de>119 deg post manual Abd: less 5 de deg ER: less 18 de deg IR: improved from R buttocks: right beltline/ SI, PT-OP-L Special Tests Start: 10/28/22 09:19 Freq: Status: Active Protocol: Document 10/29/22 09:50 SAK (Rec: 10/29/22 17:12 [facility] [id number]) Special Tests Shoulder Special Tests Lift-Off Rotator Cuff Test Results positive Elevation Impingement Test Results positive Drop Arm Rotator Cuff Test Results positve PT-OP-M Strength Start: 10/28/22 09:19 Freq: Status: Active Protocol: Document 10/29/22 09:50 SAK (Rec: 10/29/22 17:12 [facility] [id number]) Shoulder Strength Shoulder Manual Muscle Testing Left Flexion 4- Good- Extension 4- Good- Adduction 4 Good External Rotation 4- Good- Internal Rotation 4 Good PT-OP-N Lymphedema Start: 04/20/23 09:31 Freq: Status: Active Protocol: Document 04/20/23 09:32 SAK (Rec: 04/20/23 10:17 [facility] [id number]) Lymphedema Measurements Upper Extremity Circumference Measurements Left Affected MCP 20.2 cm Dorsum of Hand 21 cm Wrist 20 cm 5 cm From Wrist Crease 27.3 cm 10 cm From Wrist Crease 32.5 cm 15 cm From Wrist Crease 35.6 cm 20 cm From Wrist Crease 37 cm 25 cm From Wrist Crease 45.2 cm 30 cm From Wrist Crease 51.4 cm 35 cm From Wrist Crease 50.4 cm 40 cm From Wrist Crease 45.5 cm Elbow Joint 36.3 cm Axilla 44.5 cm - 41.5 wrist to armpit Right Affected MCP 19.3 cm Dorsum of Hand 20.8 cm Wrist 18.6 cm 5 cm From Wrist Crease 24.2 cm 10 cm From Wrist Crease 28.8 cm 15 cm From Wrist Crease 31.9 cm 20 cm From Wrist Crease 32.9 cm 25 cm From Wrist Crease 41.7 cm 30 cm From Wrist Crease 48.4 cm 35 cm From Wrist Crease 48.6 cm 40 cm From Wrist Crease 45.3 cm Elbow Joint 32.9 cm Axilla 45.4 cm Lower Extremity Circumference Measurements Right Affected MT Heads 23.2 cm Mid-foot 23.8 cm Medial Malleolus 28.3 cm 10 cm From Medial Malleolus 28.5 cm 20 cm From Medial Malleolus 43 cm 30 cm From Medial Malleolus 44.5 cm 40 cm From Medial Malleolus 65.3 cm 50 cm From Medial Malleolus 72 cm Knee Joint 47.1 cm - groin 85.5 Left Affected MT Heads 23.3 cm Mid-foot 24.5 cm Medial Malleolus 25.2 cm 10 cm From Medial Malleolus 27 cm 20 cm From Medial Malleolus 40.3 cm 30 cm From Medial Malleolus 43.7 cm 40 cm From Medial Malleolus 54.8 cm 50 cm From Medial Malleolus 68.8 cm 60 cm From Medial Malleolus 73.5 cm Knee Joint 51.1 cm - groin 81.8 Comments Lymphedema Comments abdomen 122.3 hips (widest part) 146.0 PT-OP-Q Treatments Start: 10/28/22 09:19 Freq: Status: Active Protocol: Document 05/21/23 10:14 SP (Rec: 05/21/23 10:53 SP [id number]) Manual Therapy Treatment Soft Tissue Mobilization superior Body Location R UT & LS Mobilization Type Rolling,Strumming Intensity/Depth Moderate Body Position s/l Comments w/rot scap post Body Location R lat & rhomoids & LT Mobilization Type Strumming,Sustained Pressure Intensity/Depth Moderate Body Position Sitting Joint Mobilizations ribs Comments R dep R 8 FM w/SB R AP 1st rib; PA rib, caudal 1st rib R AC jt Joint w/overhead motion AAROM FM FF R GH jt Joint R Direction post FM scapulothoracic Joint R shld Direction elevation/depression, protraction/retraction Grade II Body Position Sidelying Reps/Duration 4min Comments PROM PT-OP-R Modalities Start: 10/28/22 09:19 Freq: Status: Active Protocol: Document 04/15/23 13:15 SAK (Rec: 04/15/23 14:02 SAK [id number]) Electric Stimulation Electric Stimulation Interferential Current (IFC) Body Location right shoulder Duration (Minutes) 15 Intensity 10 Target/Sweep Sweep High/Low High Patient Position Hooklying Combined With Heat/Cold Hot Pack PT-OP-T Assessment and Plan Start: 10/28/22 09:19 Freq: Status: Active Protocol: Document 05/21/23 10:14 SP (Rec: 05/21/23 10:53 SP [id number]) Physical Therapy Assessment Goals Five Impairment compensatory movement patterns right UE Impairment overactivation of upper traps, postural dysfunction impacting right shoulder function Short Term Goal (STG) Patient will be able to self- correct posture and compensatory movements right shoulder with visual feedback of mirror STG Duration 05/23/23 Anchor Operator Goal (LTG) Patient will be able to perform HEP and do functional movements right UE with improved posture, without compensatory movements for improved right shoulder function LTG Duration 06/22/23 Four Impairment lymphedema (lipidema-type) iram UE's, LEs, abdomen Short Term Goal (STG) Patient to be instructed in all aspects of lymphedema care to include skin care, manual lymphatic drainage, compression, lymphedema exercises STG Duration 06/20/23 Care Home Goal (LTG) Patient circumferential measurements dec and stabilized (no inc or dec greater than 1 cm over the course of 1 week) and patient to obtain appropriate compression garments. Patient to be independent with all aspects of self-management for lymphedema/lipidema LTG Duration 07/21/23 Three Impairment activity tolerance Impairment Quickdash UE disability index score60% Anchor Operator Goal (LTG) Improve QuickDash score to no greater than 30% as measure of improved activity tolerance with right UE 12/30/22: decreased to 39% 02/18/23: 43% today, more sore after no PT for 1 week. 04/20/23: 40% LTG Duration 07/21/23 Two Impairment unable to reach overhead or behind her back with right shoulder Short Term Goal (STG) Patient will be able to reach use right UE to do her hair, and be able to pull pants up on right without increase in pain 12/30/22: goal progress 02/17/23: goal mostly met 04/06/23: goal met STG Duration goal met Anchor Operator Goal (LTG) Patient will demonstrate full ROM with right shoulder to allow her to do all usual activities 04/20/23: goal progress LTG Duration 07/21/23 One Impairment pain right shoulder as high as 8/10 Short Term Goal (STG) decrease pain to no greater than 6/10 with usual activities 12/30/22: pain decreased to 5/10 02/17/23: goal met STG Duration goal met Anchor Operator Goal (LTG) decrease pain to no greater than 3/10 with all usual activities 04/06/23: goal progress though variable ability, when feeling better patient with tendency to reach without thinking and reports inc in pain. Also, weight of arms from lymphedema appears to contribute to shoulder dysfunction; patient will be requesting order for lymphedema treatment from PCP 04/20/23: pain generally 3-5/10 , progress LTG Duration 07/21/23 Progress Towards Goals Progress Comments -Seated L shld AROM: FF improved de deg ABD improved 25 dedeg Ext: improved 35 dedeg ER: improved 25 de deg -Seated R shld AROM: FF improved 14 de>119 deg post manual Abd: less 5 de deg ER: less 18 de deg IR: improved from R buttocks: right beltline/ SI Assessment Summary Assessment Pt reports less pain with STMs and manual support MWM into FF, ER. Pt continues need assist donning L arm sleeve fully up last 1/4 of arm, reports provides support needed but wanting her new one ordered. Decreased time for HEP review but peformed AROM during measurements B shld, making gains in AROM Bilateral . R shld AROM remeasure 104 pre manual to 119 deg post an improvement of 15 deg FF. Physical Therapy Plan Frequency and Duration Frequency of Treatment 2x/Week Duration of treatment (weeks) 12 Plan of Care Start Date 04/20/23 Plan of Care End Date 07/21/23 Therapeutic Interventions Therapeutic Interventions Aquatic Therapy,Home Exercise Program,Lymphedema Management, Manual Therapy,Patient/ Caregiver Education,Self-Care/ Home Management,Soft Tissue Mobilization,Taping, Therapeutic Activities, Therapeutic Exercises Modalities Cold Pack/Ice Massage,Electric Stimulation,Hot Packs, Infrared Therapy,Iontophoresis ,Ultrasound,Vasopneumatic Devices Next Visit Focus/Plan Next Note Type Treatment Note Next Visit Plan Cont to work on overhead mobility and rotations manually. Facilitate core through UE PNF patterns
--- NOTE | 2023-05-24 16:37 | PT.OTN ---
Current Diagnoses Lymphedema, not elsewhere classified (05/24/23) Pain in right shoulder (05/24/23) Incomplete rotator cuff tear or rupture of right shoulder, not specified as traumatic (05/24/23) Superior glenoid labrum lesion of right shoulder, initial encounter (05/24/23) Physical Therapy Treatment Note PT-OP-A Visit Information Start: 10/28/22 09:19 Freq: Status: Active Protocol: Document 05/24/23 14:16 SAK (Rec: 05/24/23 14:18 [facility] [id number]) Out-Patient Physical Therapy Visit Information Visit Information Visit Type Progress Note Visit Note 10/18 Visit Start Time 14:17 Visit Stop Time 15:30 Total Visit Minutes 73 Visit Number 41 Number of RETARDER OPERATOR Visits 0 PT-OP-B Current Condition Start: 10/28/22 09:19 Freq: Status: Active Protocol: Document 03/03/23 09:48 SAK (Rec: 03/03/23 10:38 [facility] [id number]) Current Condition History of Current Condition Onset Date 1 1/2 years Current Complaints right History of Current Condition gradual onset right shoulder pain unknown reason. Increases with trying to reach overhead, out to side, or behind her back; pain and tingling. If tries to sleep on back both arms go numb. Unable to wear compression sleeve left due to pain right shoulder; patient previously seen by this PT for right shoulder pain and felt at that time pain at least some due to overuse right UE. Goes back to the doctor after PT ( Clifford Diggs). 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 Saw filler shredder helper. MRI right shoulder: incomplete RC tear, superior labral tear Prior Treatments and Tests Tylenol, ice, heat. Can't do UE ex at cardiac rehab, low tolerance for HEP previously instructed. Has TENS, but doesn't know how to use PT-OP-C Subjective Start: 10/28/22 09:19 Freq: Status: Active Protocol: Document 05/24/23 14:16 SAK (Rec: 05/24/23 14:19 [facility] [id number]) OP-PT Subjective Patient Comments Patient Comments getting new compression sleeve this week for the left arm, needs to get measurements taken on the right when she goes for appoitnment. Getting bruised on left UE from where current compressin sleeve ends due to poor fit. States feels her body continues to inc in size. Just got abdomoninal compression/binder for support /compression, hasn't worn yet . Shoulder not bothering her much unless she reaches wrong for the most part, concerned about exacerbating it with lymphedema care. PT-OP-E Functional Tests Start: 10/28/22 09:19 Freq: Status: Active Protocol: Document 10/29/22 09:50 SAK (Rec: 10/29/22 17:12 [facility] [id number]) Functional Tests Apley's Scratch Test Action 1- Left anterior shoulder Action 1- Right posterior shoulder Action 2- Left T2 Action 2- Right lateral neck Action 3- Left lateral hip Action 3- Right T7 PT-OP-H Neuro Start: 10/28/22 09:19 Freq: Status: Active Protocol: Document 10/29/22 09:50 SAK (Rec: 10/29/22 17:12 [facility] [id number]) Sensation Evaluation Gross Sensation Gross Sensation Left UE Impaired,Right UE Impaired Sensation Description Paresthesia Location Details Left Arm Light Touch Intact/Normal PT-OP-J Posture/Palpation/Skin Start: 10/28/22 09:19 Freq: Status: Active Protocol: Document 10/29/22 09:50 SAK (Rec: 10/29/22 17:12 [facility] [id number]) Posture Evaluation Position Sitting Head/C-Spine Posture Forward Head T-Spine Posture Increased Kyphosis L-Spine Posture Increased Lordosis Shoulder Posture (L) Rounded,(R) Rounded Scapula Posture (L) Protracted,(R) Protracted Arm Posture (L) Internally Rotated,(R) Internally Rotated Pelvis Posture Anteriorly Tilted Palpation Assessment Location RC insertion Palpation Findings Tenderness Palpation Details entire joint line painful to palpation PT-OP-K Range of Motion Start: 10/28/22 09:19 Freq: Status: Active Protocol: Document 05/21/23 10:14 SP (Rec: 05/21/23 10:53 SP [id number]) Shoulder Goniometric Range of Motion Shoulder Left Shoulder ROM WFL No Testing Position Sitting Flexion 138 Extension 45 Abduction 100 External Rotation at 0 degrees Abduction 80 Comments seated L shld AROM: FF improved de deg ABD improved 25 dedeg Ext: improved 35 dedeg ER: improved 25 de deg Right Testing Position Sitting Flexion 104 Abduction 95 External Rotation at 0 degrees Abduction 62 Internal Rotation Behind Back (text) right SI Comments seated AROM R shld: FF improved 14 de>119 deg post manual Abd: less 5 de deg ER: less 18 de deg IR: improved from R buttocks: right beltline/ SI, PT-OP-L Special Tests Start: 10/28/22 09:19 Freq: Status: Active Protocol: Document 10/29/22 09:50 [facility] (Rec: 10/29/22 17:12 [facility] [id number]) Special Tests Shoulder Special Tests Lift-Off Rotator Cuff Test Results positive Elevation Impingement Test Results positive Drop Arm Rotator Cuff Test Results positve PT-OP-M Strength Start: 10/28/22 09:19 Freq: Status: Active Protocol: Document 10/29/22 09:50 SAK (Rec: 10/29/22 17:12 [facility] [id number]) Shoulder Strength Shoulder Manual Muscle Testing Left Flexion 4- Good- Extension 4- Good- Adduction 4 Good External Rotation 4- Good- Internal Rotation 4 Good PT-OP-N Lymphedema Start: 04/20/23 09:31 Freq: Status: Active Protocol: Document 05/24/23 14:16 [facility] (Rec: 05/24/23 15:29 [facility] [id number]) Lymphedema Measurements Upper Extremity Circumference Measurements Left Affected MCP 19.6 cm Dorsum of Hand 22.5 cm Wrist 19.7 cm 5 cm From Wrist Crease 26.8 cm 10 cm From Wrist Crease 31.6 cm 15 cm From Wrist Crease 34.3 cm 20 cm From Wrist Crease 36.7 cm 25 cm From Wrist Crease 37.4 cm 30 cm From Wrist Crease 45.9 cm 35 cm From Wrist Crease 51.4 cm 40 cm From Wrist Crease 49.6 cm Elbow Joint 35.8 cm Axilla 44.7 cm Right Affected MCP 19.1 cm Dorsum of Hand 20.2 cm Wrist 18 cm 5 cm From Wrist Crease 23.9 cm 10 cm From Wrist Crease 29 cm 15 cm From Wrist Crease 32.3 cm 20 cm From Wrist Crease 33 cm 25 cm From Wrist Crease 38.4 cm 30 cm From Wrist Crease 45.9 cm 35 cm From Wrist Crease 48.5 cm 40 cm From Wrist Crease 45.3 cm Elbow Joint 31.9 cm Axilla 44.7 cm Lower Extremity Circumference Measurements Right Affected MT Heads 23.5 cm Mid-foot 24.2 cm Medial Malleolus 26.5 cm 10 cm From Medial Malleolus 25.3 cm 20 cm From Medial Malleolus 40.4 cm 30 cm From Medial Malleolus 46.2 cm 40 cm From Medial Malleolus 59.5 cm 50 cm From Medial Malleolus 65.3 cm Knee Joint 48.5 cm - 80.5 Left Affected MT Heads 23.5 cm Mid-foot 25 cm Medial Malleolus 28.5 cm 10 cm From Medial Malleolus 25.7 cm 20 cm From Medial Malleolus 38.3 cm 30 cm From Medial Malleolus 45.2 cm 40 cm From Medial Malleolus 53.4 cm 50 cm From Medial Malleolus 67.9 cm 60 cm From Medial Malleolus 73.5 cm Knee Joint 50 cm - 82 PT-OP-Q Treatments Start: 10/28/22 09:19 Freq: Status: Active Protocol: Document 05/24/23 14:16 [facility] (Rec: 05/24/23 14:19 [facility] [id number]) Lymphedema Treatment Lymphedema Wrapping Other Patient requested no bandaging as poorly tolerated, will consider further next session. Old compression sleeve applied to left UE. Sequential Lymphedema Exercises Location HEP Compression Garment Assessment Compression Garment Assessment Details as above, to get new one for left UE, be measured for right . wearing knee high compression LE's Patient Education Compression Garments discussed Self Manual Lymphatic Drainage trial sequential pneumatic pump to prevent flare up of right UE Other Other circumferential measurements iram UEs and LE's taken PT-OP-R Modalities Start: 10/28/22 09:19 Freq: Status: Active Protocol: Document 04/15/23 13:15 [facility] (Rec: 04/15/23 14:02 [facility] [id number]) Electric Stimulation Electric Stimulation Interferential Current (IFC) Body Location right shoulder Duration (Minutes) 15 Intensity 10 Target/Sweep Sweep High/Low High Patient Position Hooklying Combined With Heat/Cold Hot Pack PT-OP-T Assessment and Plan Start: 10/28/22 09:19 Freq: Status: Active Protocol: Document 05/24/23 14:16 [facility] (Rec: 05/24/23 14:18 [facility] [id number]) Physical Therapy Assessment Goals Five Impairment compensatory movement patterns right UE Impairment overactivation of upper traps, postural dysfunction impacting right shoulder function Short Term Goal (STG) Patient will be able to self- correct posture and compensatory movements right shoulder with visual feedback of mirror STG Duration 05/23/23 [facility]iary Goal (LTG) Patient will be able to perform HEP and do functional movements right UE with improved posture, without compensatory movements for improved right shoulder function LTG Duration 06/22/23 Four Impairment lymphedema (lipidema-type) iram UE's, LEs, abdomen Short Term Goal (STG) Patient to be instructed in all aspects of lymphedema care to include skin care, manual lymphatic drainage, compression, lymphedema exercises STG Duration 06/20/23 Penitentiary Goal (LTG) Patient circumferential measurements dec and stabilized (no inc or dec greater than 1 cm over the course of 1 week) and patient to obtain appropriate compression garments. Patient to be independent with all aspects of self-management for lymphedema/lipidema LTG Duration 07/21/23 Three Impairment activity tolerance Impairment Quickdash UE disability index score60% Organizational Consultant Goal (LTG) Improve QuickDash score to no greater than 30% as measure of improved activity tolerance with right UE 12/30/22: decreased to 39% 02/18/23: 43% today, more sore after no PT for 1 week. 04/20/23: 40% LTG Duration 07/21/23 Two Impairment unable to reach overhead or behind her back with right shoulder Short Term Goal (STG) Patient will be able to reach use right UE to do her hair, and be able to pull pants up on right without increase in pain 12/30/22: goal progress 02/17/23: goal mostly met 04/06/23: goal met STG Duration goal met Penitentiary Goal (LTG) Patient will demonstrate full ROM with right shoulder to allow her to do all usual activities 04/20/23: goal progress LTG Duration 07/21/23 One Impairment pain right shoulder as high as 8/10 Short Term Goal (STG) decrease pain to no greater than 6/10 with usual activities 12/30/22: pain decreased to 5/10 02/17/23: goal met STG Duration goal met Organizational Consultant Goal (LTG) decrease pain to no greater than 3/10 with all usual activities 04/06/23: goal progress though variable ability, when feeling better patient with tendency to reach without thinking and reports inc in pain. Also, weight of arms from lymphedema appears to contribute to shoulder dysfunction; patient will be requesting order for lymphedema treatment from PCP 04/20/23: pain generally 3-5/10 , progress LTG Duration 07/21/23 Assessment Summary Assessment Trial sequential pneumatic pump left UE today, noted decrease in forearm, increase in upper arm, recommend trunk component if patient able to obtain pump for home use. Getting new compression sleeve left UE and being measured for right . WEaring knee high compression LE's; recommend thigh high/comprepression tights or capris for layering, upper leg and trunk compression. Physical Therapy Plan Frequency and Duration Frequency of Treatment 2x/Week Duration of treatment (weeks) 12 Plan of Care Start Date 04/20/23 Plan of Care End Date 07/21/23 Therapeutic Interventions Therapeutic Interventions Aquatic Therapy,Home Exercise Program,Lymphedema Management, Manual Therapy,Patient/ Caregiver Education,Self-Care/ Home Management,Soft Tissue Mobilization,Taping, Therapeutic Activities, Therapeutic Exercises Modalities Cold Pack/Ice Massage,Electric Stimulation,Hot Packs, Infrared Therapy,Iontophoresis ,Ultrasound,Vasopneumatic Devices Next Visit Focus/Plan Next Note Type Treatment Note Next Visit Plan Continue PT for lipolymphedema management iram UE's and LE's, trunk. Discuss LE compression, further use of pneumatic sequential pump.
--- NOTE | 2023-05-26 16:28 | PT.OTN ---
Current Diagnoses Lymphedema, not elsewhere classified (05/26/23) Pain in right shoulder (05/26/23) Incomplete rotator cuff tear or rupture of right shoulder, not specified as traumatic (05/26/23) Superior glenoid labrum lesion of right shoulder, initial encounter (05/26/23) Physical Therapy Treatment Note PT-OP-A Visit Information Start: 10/28/22 09:19 Freq: Status: Active Protocol: Document 05/26/23 09:32 SAK (Rec: 05/26/23 10:20 SAK [id number]) Out-Patient Physical Therapy Visit Information Visit Information Visit Type Treatment Note Visit Start Time 09:32 Visit Stop Time 10:17 Total Visit Minutes 45 Visit Number 42 PT-OP-B Current Condition Start: 10/28/22 09:19 Freq: Status: Active Protocol: Document 03/03/23 09:48 SAK (Rec: 03/03/23 10:38 SAK [id number]) Current Condition History of Current Condition Onset Date 1 1/2 years Current Complaints right History of Current Condition gradual onset right shoulder pain unknown reason. Increases with trying to reach overhead, out to side, or behind her back; pain and tingling. If tries to sleep on back both arms go numb. Unable to wear compression sleeve left due to pain right shoulder; patient previously seen by this PT for right shoulder pain and felt at that time pain at least some due to overuse right UE. Goes back to the doctor after PT ( Clifford Diggs). 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 MRI right shoulder: incomplete RC tear, superior labral tear Prior Treatments and Tests Tylenol, ice, heat. Can't do UE ex at cardiac rehab, low tolerance for HEP previously instructed. Has TENS, but doesn't know how to use PT-OP-C Subjective Start: 10/28/22 09:19 Freq: Status: Active Protocol: Document 05/26/23 09:32 SAK (Rec: 05/26/23 10:20 SAK [id number]) OP-PT Subjective Patient Comments Patient Comments Didn't wear abdominal compression yesterday due to multiple appointments, poor experience with abdominal compression last time she tried. Agreed to try, starting at 1 hr as recommended by PT PT-OP-E Functional Tests Start: 10/28/22 09:19 Freq: Status: Active Protocol: Document 10/29/22 09:50 [facility] (Rec: 10/29/22 17:12 [facility] [id number]) Functional Tests Apley's Scratch Test Action 1- Left anterior shoulder Action 1- Right posterior shoulder Action 2- Left T2 Action 2- Right lateral neck Action 3- Left lateral hip Action 3- Right T7 PT-OP-H Neuro Start: 10/28/22 09:19 Freq: Status: Active Protocol: Document 10/29/22 09:50 SAK (Rec: 10/29/22 17:12 [facility] [id number]) Sensation Evaluation Gross Sensation Gross Sensation Left UE Impaired,Right UE Impaired Sensation Description Paresthesia Location Details Left Arm Light Touch Intact/Normal PT-OP-J Posture/Palpation/Skin Start: 10/28/22 09:19 Freq: Status: Active Protocol: Document 10/29/22 09:50 [facility] (Rec: 10/29/22 17:12 [facility] [id number]) Posture Evaluation Position Sitting Head/C-Spine Posture Forward Head T-Spine Posture Increased Kyphosis L-Spine Posture Increased Lordosis Shoulder Posture (L) Rounded,(R) Rounded Scapula Posture (L) Protracted,(R) Protracted Arm Posture (L) Internally Rotated,(R) Internally Rotated Pelvis Posture Anteriorly Tilted Palpation Assessment Location RC insertion Palpation Findings Tenderness Palpation Details entire joint line painful to palpation PT-OP-K Range of Motion Start: 10/28/22 09:19 Freq: Status: Active Protocol: Document 05/21/23 10:14 SP (Rec: 05/21/23 10:53 SP [id number]) Shoulder Goniometric Range of Motion Shoulder Left Shoulder ROM WFL No Testing Position Sitting Flexion 138 Extension 45 Abduction 100 External Rotation at 0 degrees Abduction 80 Comments seated L shld AROM: FF improved de deg ABD improved 25 dedeg Ext: improved 35 dedeg ER: improved 25 de deg Right Testing Position Sitting Flexion 104 Abduction 95 External Rotation at 0 degrees Abduction 62 Internal Rotation Behind Back (text) right SI Comments seated AROM R shld: FF improved 14 de>119 deg post manual Abd: less 5 de deg ER: less 18 de deg IR: improved from R buttocks: right beltline/ SI, PT-OP-L Special Tests Start: 10/28/22 09:19 Freq: Status: Active Protocol: Document 10/29/22 09:50 SAK (Rec: 10/29/22 17:12 [facility] [id number]) Special Tests Shoulder Special Tests Lift-Off Rotator Cuff Test Results positive Elevation Impingement Test Results positive Drop Arm Rotator Cuff Test Results positve PT-OP-M Strength Start: 10/28/22 09:19 Freq: Status: Active Protocol: Document 10/29/22 09:50 SAK (Rec: 10/29/22 17:12 [facility] [id number]) Shoulder Strength Shoulder Manual Muscle Testing Left Flexion 4- Good- Extension 4- Good- Adduction 4 Good External Rotation 4- Good- Internal Rotation 4 Good PT-OP-N Lymphedema Start: 04/20/23 09:31 Freq: Status: Active Protocol: Document 05/26/23 09:32 SAK (Rec: 05/26/23 10:20 [facility] [id number]) Lymphedema Measurements Upper Extremity Circumference Measurements Left Affected MCP 19.6 cm Dorsum of Hand 22.2 cm Wrist 19.9 cm 5 cm From Wrist Crease 26.6 cm 10 cm From Wrist Crease 31.5 cm 15 cm From Wrist Crease 34.5 cm 20 cm From Wrist Crease 36.7 cm 25 cm From Wrist Crease 36.9 cm 30 cm From Wrist Crease 46 cm 35 cm From Wrist Crease 51.1 cm 40 cm From Wrist Crease 48.8 cm Elbow Joint 35.3 cm Lower Extremity Circumference Measurements Left Affected - waist 122.5 hips 150.2 PT-OP-Q Treatments Start: 10/28/22 09:19 Freq: Status: Active Protocol: Document 05/26/23 09:32 SAK (Rec: 05/26/23 16:27 [facility] [id number]) Self-Care/Home Management Treatment Education Other Education options for LE compression, recommended magdalena style, given written info Lymphedema Treatment Manual Lymphatic Drainage Location right UE during pump to left UE Lymphedema Wrapping Other compression sleeve applied left UE Sequential Lymphedema Exercises Location HEP PT-OP-R Modalities Start: 10/28/22 09:19 Freq: Status: Active Protocol: Document 05/26/23 09:32 SAK (Rec: 05/26/23 16:28 [facility] [id number]) Compression Pump Treatment Treatment Location Left Arm Pressure Amount (mmHg) (mmHG) 40 Inflation Time (Seconds) 30 Deflation Time (Seconds) 10 Treatment Duration (minutes) 30 Treatment Tolerance Good PT-OP-T Assessment and Plan Start: 10/28/22 09:19 Freq: Status: Active Protocol: Document 05/26/23 09:32 TOAN (Rec: 05/26/23 10:20 TOAN [id number]) Physical Therapy Assessment Goals Five Impairment compensatory movement patterns right UE Impairment overactivation of upper traps, postural dysfunction impacting right shoulder function Short Term Goal (STG) Patient will be able to self- correct posture and compensatory movements right shoulder with visual feedback of mirror STG Duration 05/23/23 [facility]iary Goal (LTG) Patient will be able to perform HEP and do functional movements right UE with improved posture, without compensatory movements for improved right shoulder function LTG Duration 06/22/23 Four Impairment lymphedema (lipidema-type) iram UE's, LEs, abdomen Short Term Goal (STG) Patient to be instructed in all aspects of lymphedema care to include skin care, manual lymphatic drainage, compression, lymphedema exercises STG Duration 06/20/23 Corporate Human Resources Manager Goal (LTG) Patient circumferential measurements dec and stabilized (no inc or dec greater than 1 cm over the course of 1 week) and patient to obtain appropriate compression garments. Patient to be independent with all aspects of self-management for lymphedema/lipidema LTG Duration 07/21/23 Three Impairment activity tolerance Impairment Quickdash UE disability index score60% Corporate Human Resources Manager Goal (LTG) Improve QuickDash score to no greater than 30% as measure of improved activity tolerance with right UE 12/30/22: decreased to 39% 02/18/23: 43% today, more sore after no PT for 1 week. 04/20/23: 40% LTG Duration 07/21/23 Two Impairment unable to reach overhead or behind her back with right shoulder Short Term Goal (STG) Patient will be able to reach use right UE to do her hair, and be able to pull pants up on right without increase in pain 12/30/22: goal progress 02/17/23: goal mostly met 04/06/23: goal met STG Duration goal met Penitentiary Goal (LTG) Patient will demonstrate full ROM with right shoulder to allow her to do all usual activities 04/20/23: goal progress LTG Duration 07/21/23 One Impairment pain right shoulder as high as 8/10 Short Term Goal (STG) decrease pain to no greater than 6/10 with usual activities 12/30/22: pain decreased to 5/10 02/17/23: goal met STG Duration goal met [facility]it[facility]iary Goal (LTG) decrease pain to no greater than 3/10 with all usual activities 04/06/23: goal progress though variable ability, when feeling better patient with tendency to reach without thinking and reports inc in pain. Also, weight of arms from lymphedema appears to contribute to shoulder dysfunction; patient will be requesting order for lymphedema treatment from PCP 04/20/23: pain generally 3-5/10 , progress LTG Duration 07/21/23 Assessment Summary Assessment Increase pressure with pump today left UE to 40 mm Hg with good tolerance. ASsisted patient in applying compression sleeve left UE. Going to [facility] tomorrow for new sleeve and to be measured for right. Patient wearing compression stockings iram LE knee high. Recommended she consider Magdalena style compression for abdomen and upper legs for best compression; issued information. Physical Therapy Plan Frequency and Duration Frequency of Treatment 2x/Week Duration of treatment (weeks) 12 Plan of Care Start Date 04/20/23 Plan of Care End Date 07/21/23 Therapeutic Interventions Therapeutic Interventions Aquatic Therapy,Home Exercise Program,Lymphedema Management, Manual Therapy,Patient/ Caregiver Education,Self-Care/ Home Management,Soft Tissue Mobilization,Taping, Therapeutic Activities, Therapeutic Exercises Modalities Cold Pack/Ice Massage,Electric Stimulation,Hot Packs, Infrared Therapy,Iontophoresis ,Ultrasound,Vasopneumatic Devices Next Visit Focus/Plan Next Note Type Treatment Note Next Visit Plan Continue PT for lipolymphedema management iram UE's and LE's, trunk, emphasis on LE's next session. Assess fit of new compression sleeve left UE.
--- NOTE | 2023-05-31 15:36 | PT.OTN ---
Current Diagnoses Lymphedema, not elsewhere classified (05/31/23) Pain in right shoulder (05/31/23) Incomplete rotator cuff tear or rupture of right shoulder, not specified as traumatic (05/31/23) Superior glenoid labrum lesion of right shoulder, initial encounter (05/31/23) Physical Therapy Treatment Note PT-OP-A Visit Information Start: 10/28/22 09:19 Freq: Status: Active Protocol: Document 05/31/23 12:30 SAK (Rec: 05/31/23 13:15 SAK [id number]) Out-Patient Physical Therapy Visit Information Visit Information Visit Type Treatment Note Visit Start Time 12:30 Visit Stop Time 13:15 Total Visit Minutes 45 Visit Number 43 PT-OP-B Current Condition Start: 10/28/22 09:19 Freq: Status: Active Protocol: Document 03/03/23 09:48 SAK (Rec: 03/03/23 10:38 SAK [id number]) Current Condition History of Current Condition Onset Date 1 1/2 years Current Complaints right History of Current Condition gradual onset right shoulder pain unknown reason. Increases with trying to reach overhead, out to side, or behind her back; pain and tingling. If tries to sleep on back both arms go numb. Unable to wear compression sleeve left due to pain right shoulder; patient previously seen by this PT for right shoulder pain and felt at that time pain at least some due to overuse right UE. Goes back to the doctor after PT ( Clifford Diggs). 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 MRI right shoulder: incomplete RC tear, superior labral tear Prior Treatments and Tests Tylenol, ice, heat. Can't do UE ex at cardiac rehab, low tolerance for HEP previously instructed. Has TENS, but doesn't know how to use PT-OP-C Subjective Start: 10/28/22 09:19 Freq: Status: Active Protocol: Document 05/26/23 09:32 SAK (Rec: 05/26/23 10:20 SAK [id number]) OP-PT Subjective Patient Comments Patient Comments Didn't wear abdominal compression yesterday due to multiple appointments, poor experience with abdominal compression last time she tried. Agreed to try, starting at 1 hr as recommended by PT PT-OP-E Functional Tests Start: 10/28/22 09:19 Freq: Status: Active Protocol: Document 10/29/22 09:50 [facility] (Rec: 10/29/22 17:12 [facility] [id number]) Functional Tests Apley's Scratch Test Action 1- Left anterior shoulder Action 1- Right posterior shoulder Action 2- Left T2 Action 2- Right lateral neck Action 3- Left lateral hip Action 3- Right T7 PT-OP-H Neuro Start: 10/28/22 09:19 Freq: Status: Active Protocol: Document 10/29/22 09:50 SAK (Rec: 10/29/22 17:12 [facility] [id number]) Sensation Evaluation Gross Sensation Gross Sensation Left UE Impaired,Right UE Impaired Sensation Description Paresthesia Location Details Left Arm Light Touch Intact/Normal PT-OP-J Posture/Palpation/Skin Start: 10/28/22 09:19 Freq: Status: Active Protocol: Document 10/29/22 09:50 [facility] (Rec: 10/29/22 17:12 [facility] [id number]) Posture Evaluation Position Sitting Head/C-Spine Posture Forward Head T-Spine Posture Increased Kyphosis L-Spine Posture Increased Lordosis Shoulder Posture (L) Rounded,(R) Rounded Scapula Posture (L) Protracted,(R) Protracted Arm Posture (L) Internally Rotated,(R) Internally Rotated Pelvis Posture Anteriorly Tilted Palpation Assessment Location RC insertion Palpation Findings Tenderness Palpation Details entire joint line painful to palpation PT-OP-K Range of Motion Start: 10/28/22 09:19 Freq: Status: Active Protocol: Document 05/21/23 10:14 SP (Rec: 05/21/23 10:53 SP [id number]) Shoulder Goniometric Range of Motion Shoulder Left Shoulder ROM WFL No Testing Position Sitting Flexion 138 Extension 45 Abduction 100 External Rotation at 0 degrees Abduction 80 Comments seated L shld AROM: FF improved de deg ABD improved 25 dedeg Ext: improved 35 dedeg ER: improved 25 de deg Right Testing Position Sitting Flexion 104 Abduction 95 External Rotation at 0 degrees Abduction 62 Internal Rotation Behind Back (text) right SI Comments seated AROM R shld: FF improved 14 de>119 deg post manual Abd: less 5 de deg ER: less 18 de deg IR: improved from R buttocks: right beltline/ SI, PT-OP-L Special Tests Start: 10/28/22 09:19 Freq: Status: Active Protocol: Document 10/29/22 09:50 [facility] (Rec: 10/29/22 17:12 [facility] [id number]) Special Tests Shoulder Special Tests Lift-Off Rotator Cuff Test Results positive Elevation Impingement Test Results positive Drop Arm Rotator Cuff Test Results positve PT-OP-M Strength Start: 10/28/22 09:19 Freq: Status: Active Protocol: Document 10/29/22 09:50 [facility] (Rec: 10/29/22 17:12 [facility] [id number]) Shoulder Strength Shoulder Manual Muscle Testing Left Flexion 4- Good- Extension 4- Good- Adduction 4 Good External Rotation 4- Good- Internal Rotation 4 Good PT-OP-N Lymphedema Start: 04/20/23 09:31 Freq: Status: Active Protocol: Document 05/31/23 12:30 [facility] (Rec: 05/31/23 13:15 [facility] [id number]) Lymphedema Measurements Lower Extremity Circumference Measurements Right Affected MT Heads 23 cm Mid-foot 24 cm Medial Malleolus 26.6 cm 10 cm From Medial Malleolus 26.2 cm 20 cm From Medial Malleolus 40.6 cm 30 cm From Medial Malleolus 44.8 cm 40 cm From Medial Malleolus 52.5 cm 50 cm From Medial Malleolus 66.8 cm 60 cm From Medial Malleolus 70.3 cm 70 cm From Medial Malleolus 69.5 cm Knee Joint 49 cm Left Affected MT Heads 22.7 cm Mid-foot 24.9 cm Medial Malleolus 27 cm 10 cm From Medial Malleolus 25.8 cm 20 cm From Medial Malleolus 38.5 cm 30 cm From Medial Malleolus 44 cm 40 cm From Medial Malleolus 54 cm 50 cm From Medial Malleolus 69.3 cm 60 cm From Medial Malleolus 74.5 cm 70 cm From Medial Malleolus 79.5 cm Knee Joint 48.7 cm PT-OP-Q Treatments Start: 10/28/22 09:19 Freq: Status: Active Protocol: Document 05/26/23 09:32 [facility] (Rec: 05/26/23 16:27 [facility] [id number]) Self-Care/Home Management Treatment Education Other Education options for LE compression, recommended gucci style, given written info Lymphedema Treatment Manual Lymphatic Drainage Location right UE during pump to left UE Lymphedema Wrapping Other compression sleeve applied left UE Sequential Lymphedema Exercises Location HEP PT-OP-R Modalities Start: 10/28/22 09:19 Freq: Status: Active Protocol: Document 05/26/23 09:32 SAK (Rec: 05/26/23 16:28 SAK [id number]) Compression Pump Treatment Treatment Location Left Arm Pressure Amount (mmHg) (mmHG) 40 Inflation Time (Seconds) 30 Deflation Time (Seconds) 10 Treatment Duration (minutes) 30 Treatment Tolerance Good PT-OP-T Assessment and Plan Start: 10/28/22 09:19 Freq: Status: Active Protocol: Document 05/31/23 12:30 SAK (Rec: 05/31/23 13:15 [facility] [id number]) Physical Therapy Assessment Goals Five Impairment compensatory movement patterns right UE Impairment overactivation of upper traps, postural dysfunction impacting right shoulder function Short Term Goal (STG) Patient will be able to self- correct posture and compensatory movements right shoulder with visual feedback of mirror STG Duration 05/23/23 Skilled Nursing Goal (LTG) Patient will be able to perform HEP and do functional movements right UE with improved posture, without compensatory movements for improved right shoulder function LTG Duration 06/22/23 Four Impairment lymphedema (lipidema-type) iram UE's, LEs, abdomen Short Term Goal (STG) Patient to be instructed in all aspects of lymphedema care to include skin care, manual lymphatic drainage, compression, lymphedema exercises STG Duration 06/20/23 Skilled Nursing Goal (LTG) Patient circumferential measurements dec and stabilized (no inc or dec greater than 1 cm over the course of 1 week) and patient to obtain appropriate compression garments. Patient to be independent with all aspects of self-management for lymphedema/lipidema LTG Duration 07/21/23 Three Impairment activity tolerance Impairment Quickdash UE disability index score60% Skilled Nursing Goal (LTG) Improve QuickDash score to no greater than 30% as measure of improved activity tolerance with right UE 12/30/22: decreased to 39% 02/18/23: 43% today, more sore after no PT for 1 week. 04/20/23: 40% LTG Duration 07/21/23 Two Impairment unable to reach overhead or behind her back with right shoulder Short Term Goal (STG) Patient will be able to reach use right UE to do her hair, and be able to pull pants up on right without increase in pain 12/30/22: goal progress 3/22/23: goal mostly met 04/06/23: goal met STG Duration goal met [place] Goal (LTG) Patient will demonstrate full ROM with right shoulder to allow her to do all usual activities 04/20/23: goal progress LTG Duration 07/21/23 One Impairment pain right shoulder as high as 8/10 Short Term Goal (STG) decrease pain to no greater than 6/10 with usual activities 12/30/22: pain decreased to 5/10 02/17/23: goal met STG Duration goal met [place] Goal (LTG) decrease pain to no greater than 3/10 with all usual activities 04/06/23: goal progress though variable ability, when feeling better patient with tendency to reach without thinking and reports inc in pain. Also, weight of arms from lymphedema appears to contribute to shoulder dysfunction; patient will be requesting order for lymphedema treatment from PCP 04/20/23: pain generally 3-5/10 , progress LTG Duration 07/21/23 Assessment Summary Assessment Patient obtained new compression sleeve for left, good fit but still difficulty donning. Has just obtained compression bike shorts with good fit; today first day wearing, only very mild compession but patient able to don and they fit well. LE edema has increased iram upper legs since last measured. Patient reports no change in her weight. Physical Therapy Plan Frequency and Duration Frequency of Treatment 2x/Week Duration of treatment (weeks) 12 Plan of Care Start Date 04/20/23 Plan of Care End Date 07/21/23 Therapeutic Interventions Therapeutic Interventions Aquatic Therapy,Home Exercise Program,Lymphedema Management, Manual Therapy,Patient/ Caregiver Education,Self-Care/ Home Management,Soft Tissue Mobilization,Taping, Therapeutic Activities, Therapeutic Exercises Modalities Cold Pack/Ice Massage,Electric Stimulation,Hot Packs, Infrared Therapy,Iontophoresis ,Ultrasound,Vasopneumatic Devices Next Visit Focus/Plan Next Note Type Treatment Note Next Visit Plan Continue lipolymphedema management for iram UE's, LE's and trunk.
--- NOTE | 2023-05-31 15:39 | PT.OTN ---
Current Diagnoses Lymphedema, not elsewhere classified (05/31/23) Pain in right shoulder (05/31/23) Incomplete rotator cuff tear or rupture of right shoulder, not specified as traumatic (05/31/23) Superior glenoid labrum lesion of right shoulder, initial encounter (05/31/23) Physical Therapy Treatment Note PT-OP-A Visit Information Start: 10/28/22 09:19 Freq: Status: Active Protocol: Document 05/31/23 12:30 SAK (Rec: 05/31/23 13:15 SAK [id number]) Out-Patient Physical Therapy Visit Information Visit Information Visit Type Treatment Note Visit Start Time 12:30 Visit Stop Time 13:15 Total Visit Minutes 45 Visit Number 43 PT-OP-B Current Condition Start: 10/28/22 09:19 Freq: Status: Active Protocol: Document 03/03/23 09:48 SAK (Rec: 03/03/23 10:38 SAK [id number]) Current Condition History of Current Condition Onset Date 1 1/2 years Current Complaints right History of Current Condition gradual onset right shoulder pain unknown reason. Increases with trying to reach overhead, out to side, or behind her back; pain and tingling. If tries to sleep on back both arms go numb. Unable to wear compression sleeve left due to pain right shoulder; patient previously seen by this PT for right shoulder pain and felt at that time pain at least some due to overuse right UE. Goes back to the doctor after PT ( Clifford Diggs). 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 Saw oncology social work. MRI right shoulder: incomplete RC tear, superior labral tear Prior Treatments and Tests Tylenol, ice, heat. Can't do UE ex at cardiac rehab, low tolerance for HEP previously instructed. Has TENS, but doesn't know how to use PT-OP-C Subjective Start: 10/28/22 09:19 Freq: Status: Active Protocol: Document 05/26/23 09:32 SAK (Rec: 05/26/23 10:20 SAK [id number]) OP-PT Subjective Patient Comments Patient Comments Didn't wear abdominal compression yesterday due to multiple appointments, poor experience with abdominal compression last time she tried. Agreed to try, starting at 1 hr as recommended by PT PT-OP-E Functional Tests Start: 10/28/22 09:19 Freq: Status: Active Protocol: Document 10/29/22 09:50 [facility] (Rec: 10/29/22 17:12 [facility] [id number]) Functional Tests Apley's Scratch Test Action 1- Left anterior shoulder Action 1- Right posterior shoulder Action 2- Left T2 Action 2- Right lateral neck Action 3- Left lateral hip Action 3- Right T7 PT-OP-H Neuro Start: 10/28/22 09:19 Freq: Status: Active Protocol: Document 10/29/22 09:50 SAK (Rec: 10/29/22 17:12 [facility] [id number]) Sensation Evaluation Gross Sensation Gross Sensation Left UE Impaired,Right UE Impaired Sensation Description Paresthesia Location Details Left Arm Light Touch Intact/Normal PT-OP-J Posture/Palpation/Skin Start: 10/28/22 09:19 Freq: Status: Active Protocol: Document 10/29/22 09:50 [facility] (Rec: 10/29/22 17:12 [facility] [id number]) Posture Evaluation Position Sitting Head/C-Spine Posture Forward Head T-Spine Posture Increased Kyphosis L-Spine Posture Increased Lordosis Shoulder Posture (L) Rounded,(R) Rounded Scapula Posture (L) Protracted,(R) Protracted Arm Posture (L) Internally Rotated,(R) Internally Rotated Pelvis Posture Anteriorly Tilted Palpation Assessment Location RC insertion Palpation Findings Tenderness Palpation Details entire joint line painful to palpation PT-OP-K Range of Motion Start: 10/28/22 09:19 Freq: Status: Active Protocol: Document 05/21/23 10:14 SP (Rec: 05/21/23 10:53 SP [id number]) Shoulder Goniometric Range of Motion Shoulder Left Shoulder ROM WFL No Testing Position Sitting Flexion 138 Extension 45 Abduction 100 External Rotation at 0 degrees Abduction 80 Comments seated L shld AROM: FF improved de deg ABD improved 25 dedeg Ext: improved 35 dedeg ER: improved 25 de deg Right Testing Position Sitting Flexion 104 Abduction 95 External Rotation at 0 degrees Abduction 62 Internal Rotation Behind Back (text) right SI Comments seated AROM R shld: FF improved 14 de>119 deg post manual Abd: less 5 de deg ER: less 18 de deg IR: improved from R buttocks: right beltline/ SI, PT-OP-L Special Tests Start: 10/28/22 09:19 Freq: Status: Active Protocol: Document 10/29/22 09:50 [facility] (Rec: 10/29/22 17:12 [facility] [id number]) Special Tests Shoulder Special Tests Lift-Off Rotator Cuff Test Results positive Elevation Impingement Test Results positive Drop Arm Rotator Cuff Test Results positve PT-OP-M Strength Start: 10/28/22 09:19 Freq: Status: Active Protocol: Document 10/29/22 09:50 [facility] (Rec: 10/29/22 17:12 [facility] [id number]) Shoulder Strength Shoulder Manual Muscle Testing Left Flexion 4- Good- Extension 4- Good- Adduction 4 Good External Rotation 4- Good- Internal Rotation 4 Good PT-OP-N Lymphedema Start: 04/20/23 09:31 Freq: Status: Active Protocol: Document 05/31/23 12:30 [facility] (Rec: 05/31/23 13:15 [facility] [id number]) Lymphedema Measurements Lower Extremity Circumference Measurements Right Affected MT Heads 23 cm Mid-foot 24 cm Medial Malleolus 26.6 cm 10 cm From Medial Malleolus 26.2 cm 20 cm From Medial Malleolus 40.6 cm 30 cm From Medial Malleolus 44.8 cm 40 cm From Medial Malleolus 52.5 cm 50 cm From Medial Malleolus 66.8 cm 60 cm From Medial Malleolus 70.3 cm 70 cm From Medial Malleolus 69.5 cm Knee Joint 49 cm Left Affected MT Heads 22.7 cm Mid-foot 24.9 cm Medial Malleolus 27 cm 10 cm From Medial Malleolus 25.8 cm 20 cm From Medial Malleolus 38.5 cm 30 cm From Medial Malleolus 44 cm 40 cm From Medial Malleolus 54 cm 50 cm From Medial Malleolus 69.3 cm 60 cm From Medial Malleolus 74.5 cm 70 cm From Medial Malleolus 79.5 cm Knee Joint 48.7 cm PT-OP-Q Treatments Start: 10/28/22 09:19 Freq: Status: Active Protocol: Document 05/31/23 12:30 [facility] (Rec: 05/31/23 15:38 [facility] [id number]) Lymphedema Treatment Manual Lymphatic Drainage Location right LE during pump to left UE and LE Lymphedema Wrapping Other compression sleeve applied left UE Sequential Lymphedema Exercises Location HEP Compression Garment Assessment Compression Garment Assessment Details good fit left UE Other Other LE circumferential measurements taken PT-OP-R Modalities Start: 10/28/22 09:19 Freq: Status: Active Protocol: Document 05/31/23 12:30 SAK (Rec: 05/31/23 15:38 SAK [id number]) Compression Pump Treatment Treatment Location left LE Pressure Amount (mmHg) (mmHG) 45 Inflation Time (Seconds) 30 Deflation Time (Seconds) 10 Treatment Duration (minutes) 30 Treatment Tolerance Good Left Arm Pressure Amount (mmHg) (mmHG) 40 Inflation Time (Seconds) 30 Deflation Time (Seconds) 10 Treatment Duration (minutes) 30 Treatment Tolerance Good PT-OP-T Assessment and Plan Start: 10/28/22 09:19 Freq: Status: Active Protocol: Document 05/31/23 12:30 SAK (Rec: 05/31/23 13:15 SAK [id number]) Physical Therapy Assessment Goals Five Impairment compensatory movement patterns right UE Impairment overactivation of upper traps, postural dysfunction impacting right shoulder function Short Term Goal (STG) Patient will be able to self- correct posture and compensatory movements right shoulder with visual feedback of mirror STG Duration 05/23/23 [facility] Goal (LTG) Patient will be able to perform HEP and do functional movements right UE with improved posture, without compensatory movements for improved right shoulder function LTG Duration 06/22/23 Four Impairment lymphedema (lipidema-type) iram UE's, LEs, abdomen Short Term Goal (STG) Patient to be instructed in all aspects of lymphedema care to include skin care, manual lymphatic drainage, compression, lymphedema exercises STG Duration 06/20/23 Comb Capper Goal (LTG) Patient circumferential measurements dec and stabilized (no inc or dec greater than 1 cm over the course of 1 week) and patient to obtain appropriate compression garments. Patient to be independent with all aspects of self-management for lymphedema/lipidema LTG Duration 07/21/23 Three Impairment activity tolerance Impairment Quickdash UE disability index score60% [facility] Goal (LTG) Improve QuickDash score to no greater than 30% as measure of improved activity tolerance with right UE 12/30/22: decreased to 39% 02/18/23: 43% today, more sore after no PT for 1 week. 04/20/23: 40% LTG Duration 07/21/23 Two Impairment unable to reach overhead or behind her back with right shoulder Short Term Goal (STG) Patient will be able to reach use right UE to do her hair, and be able to pull pants up on right without increase in pain 12/30/22: goal progress 02/17/23: goal mostly met 04/06/23: goal met STG Duration goal met [facility] Goal (LTG) Patient will demonstrate full ROM with right shoulder to allow her to do all usual activities 04/20/23: goal progress LTG Duration 07/21/23 One Impairment pain right shoulder as high as 8/10 Short Term Goal (STG) decrease pain to no greater than 6/10 with usual activities 12/30/22: pain decreased to 5/10 02/17/23: goal met STG Duration goal met Comb Capper Goal (LTG) decrease pain to no greater than 3/10 with all usual activities 04/06/23: goal progress though variable ability, when feeling better patient with tendency to reach without thinking and reports inc in pain. Also, weight of arms from lymphedema appears to contribute to shoulder dysfunction; patient will be requesting order for lymphedema treatment from PCP 04/20/23: pain generally 3-5/10 , progress LTG Duration 07/21/23 Assessment Summary Assessment Patient obtained new compression sleeve for left, good fit but still difficulty donning. Has just obtained compression bike shorts with good fit; today first day wearing, only very mild compession but patient able to don and they fit well. LE edema has increased iram upper legs since last measured. Patient reports no change in her weight. Physical Therapy Plan Frequency and Duration Frequency of Treatment 2x/Week Duration of treatment (weeks) 12 Plan of Care Start Date 04/20/23 Plan of Care End Date 07/21/23 Therapeutic Interventions Therapeutic Interventions Aquatic Therapy,Home Exercise Program,Lymphedema Management, Manual Therapy,Patient/ Caregiver Education,Self-Care/ Home Management,Soft Tissue Mobilization,Taping, Therapeutic Activities, Therapeutic Exercises Modalities Cold Pack/Ice Massage,Electric Stimulation,Hot Packs, Infrared Therapy,Iontophoresis ,Ultrasound,Vasopneumatic Devices Next Visit Focus/Plan Next Note Type Treatment Note Next Visit Plan Continue lipolymphedema management for iram UE's, LE's and trunk.
--- NOTE | 2023-06-03 16:31 | PT.OTN ---
Current Diagnoses Lymphedema, not elsewhere classified (06/03/23) Pain in right shoulder (06/03/23) Incomplete rotator cuff tear or rupture of right shoulder, not specified as traumatic (06/03/23) Superior glenoid labrum lesion of right shoulder, initial encounter (06/03/23) Physical Therapy Treatment Note PT-OP-A Visit Information Start: 10/28/22 09:19 Freq: Status: Active Protocol: Document 06/03/23 16:18 SAK (Rec: 06/03/23 16:31 [facility] [id number]) Out-Patient Physical Therapy Visit Information Visit Information Visit Type Treatment Note Visit Start Time 14:14 Visit Stop Time 15:45 Total Visit Minutes 90 Visit Number 44 PT-OP-B Current Condition Start: 10/28/22 09:19 Freq: Status: Active Protocol: Document 03/03/23 09:48 SAK (Rec: 03/03/23 10:38 SAK [id number]) Current Condition History of Current Condition Onset Date 1 1/2 years Current Complaints right History of Current Condition gradual onset right shoulder pain unknown reason. Increases with trying to reach overhead, out to side, or behind her back; pain and tingling. If tries to sleep on back both arms go numb. Unable to wear compression sleeve left due to pain right shoulder; patient previously seen by this PT for right shoulder pain and felt at that time pain at least some due to overuse right UE. Goes back to the doctor after PT ( Clifford Diggs). 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 Saw physician in private practice. MRI right shoulder: incomplete RC tear, superior labral tear Prior Treatments and Tests Tylenol, ice, heat. Can't do UE ex at cardiac rehab, low tolerance for HEP previously instructed. Has TENS, but doesn't know how to use PT-OP-C Subjective Start: 10/28/22 09:19 Freq: Status: Active Protocol: Document 06/03/23 16:18 SAK (Rec: 06/03/23 16:31 [facility] [id number]) OP-PT Subjective Patient Comments Patient Comments Patient wearing bicycle short when she comes to PT, compression capris should come today. Wearing iram UE sleeves wrist to axilla ( friend assisted in donning) and knee high compression stockings. Continues to have difficulty with self-donning compression sleeves, can don stockings and shorts. Frustrated she feels swelling persists with min change despite all PT and patient efforts in lipidema management . PT-OP-E Functional Tests Start: 10/28/22 09:19 Freq: Status: Active Protocol: Document 10/29/22 09:50 SAK (Rec: 10/29/22 17:12 [facility] [id number]) Functional Tests Apley's Scratch Test Action 1- Left anterior shoulder Action 1- Right posterior shoulder Action 2- Left T2 Action 2- Right lateral neck Action 3- Left lateral hip Action 3- Right T7 PT-OP-H Neuro Start: 10/28/22 09:19 Freq: Status: Active Protocol: Document 10/29/22 09:50 [facility]AK (Rec: 10/29/22 17:12 [facility] [id number]) Sensation Evaluation Gross Sensation Gross Sensation Left UE Impaired,Right UE Impaired Sensation Description Paresthesia Location Details Left Arm Light Touch Intact/Normal PT-OP-J Posture/Palpation/Skin Start: 10/28/22 09:19 Freq: Status: Active Protocol: Document 10/29/22 09:50 SAK (Rec: 10/29/22 17:12 [facility] [id number]) Posture Evaluation Position Sitting Head/C-Spine Posture Forward Head T-Spine Posture Increased Kyphosis L-Spine Posture Increased Lordosis Shoulder Posture (L) Rounded,(R) Rounded Scapula Posture (L) Protracted,(R) Protracted Arm Posture (L) Internally Rotated,(R) Internally Rotated Pelvis Posture Anteriorly Tilted Palpation Assessment Location RC insertion Palpation Findings Tenderness Palpation Details entire joint line painful to palpation PT-OP-K Range of Motion Start: 10/28/22 09:19 Freq: Status: Active Protocol: Document 05/21/23 10:14 SP (Rec: 05/21/23 10:53 SP [id number]) Shoulder Goniometric Range of Motion Shoulder Left Shoulder ROM WFL No Testing Position Sitting Flexion 138 Extension 45 Abduction 100 External Rotation at 0 degrees Abduction 80 Comments seated L shld AROM: FF improved de deg ABD improved 25 dedeg Ext: improved 35 dedeg ER: improved 25 de deg Right Testing Position Sitting Flexion 104 Abduction 95 External Rotation at 0 degrees Abduction 62 Internal Rotation Behind Back (text) right SI Comments seated AROM R shld: FF improved 14 de>119 deg post manual Abd: less 5 de deg ER: less 18 de deg IR: improved from R buttocks: right beltline/ SI, PT-OP-L Special Tests Start: 10/28/22 09:19 Freq: Status: Active Protocol: Document 10/29/22 09:50 [facility]AK (Rec: 10/29/22 17:12 [facility]AK [id number]) Special Tests Shoulder Special Tests Lift-Off Rotator Cuff Test Results positive Elevation Impingement Test Results positive Drop Arm Rotator Cuff Test Results positve PT-OP-M Strength Start: 10/28/22 09:19 Freq: Status: Active Protocol: Document 10/29/22 09:50 [facility]AK (Rec: 10/29/22 17:12 [facility]AK [id number]) Shoulder Strength Shoulder Manual Muscle Testing Left Flexion 4- Good- Extension 4- Good- Adduction 4 Good External Rotation 4- Good- Internal Rotation 4 Good PT-OP-N Lymphedema Start: 04/20/23 09:31 Freq: Status: Active Protocol: Document 06/03/23 16:18 SAK (Rec: 06/03/23 16:31 [facility] [id number]) Lymphedema Measurements Upper Extremity Circumference Measurements Left Affected MCP 19.6 cm Dorsum of Hand 22.2 cm Wrist 19.9 cm 5 cm From Wrist Crease 26.6 cm 10 cm From Wrist Crease 31.5 cm 15 cm From Wrist Crease 34.5 cm 20 cm From Wrist Crease 36.7 cm 25 cm From Wrist Crease 36.9 cm 30 cm From Wrist Crease 46 cm 35 cm From Wrist Crease 51.1 cm 40 cm From Wrist Crease 48.8 cm Elbow Joint 35.3 cm Right Affected MCP 19.1 cm Dorsum of Hand 20.2 cm Wrist 18 cm 5 cm From Wrist Crease 23.9 cm 10 cm From Wrist Crease 29 cm 15 cm From Wrist Crease 32.3 cm 20 cm From Wrist Crease 33 cm 25 cm From Wrist Crease 38.4 cm 30 cm From Wrist Crease 45.9 cm 35 cm From Wrist Crease 48.5 cm 40 cm From Wrist Crease 45.3 cm Elbow Joint 31.9 cm Axilla 44.7 cm Lower Extremity Circumference Measurements Right Affected MT Heads 23 cm Mid-foot 24 cm Medial Malleolus 26.6 cm 10 cm From Medial Malleolus 26.2 cm 20 cm From Medial Malleolus 40.6 cm 30 cm From Medial Malleolus 44.8 cm 40 cm From Medial Malleolus 52.5 cm 50 cm From Medial Malleolus 66.8 cm 60 cm From Medial Malleolus 70.3 cm 70 cm From Medial Malleolus 69.5 cm Knee Joint 49 cm Left Affected MT Heads 22.7 cm Mid-foot 24.9 cm Medial Malleolus 27 cm 10 cm From Medial Malleolus 25.8 cm 20 cm From Medial Malleolus 38.5 cm 30 cm From Medial Malleolus 44 cm 40 cm From Medial Malleolus 54 cm 50 cm From Medial Malleolus 69.3 cm 60 cm From Medial Malleolus 74.5 cm 70 cm From Medial Malleolus 79.5 cm Knee Joint 48.7 cm - waist 122.5 hips 150.2 PT-OP-Q Treatments Start: 10/28/22 09:19 Freq: Status: Active Protocol: Document 06/03/23 16:18 [facility] (Rec: 06/03/23 16:31 [facility] [id number]) Lymphedema Treatment Manual Lymphatic Drainage Location for iram UE, LE, and trunkal edema Duration 60 Lymphedema Wrapping Other compression sleeves applied iram UE's by PT, patient able to don compression shorts and stockings Sequential Lymphedema Exercises Location HEP Compression Garment Assessment Compression Garment Assessment Details Good fit but difficulty with donning UE garments due to size of UE's, shoulder pain Other Other LE circumferential measurements taken PT-OP-R Modalities Start: 10/28/22 09:19 Freq: Status: Active Protocol: Document 06/03/23 16:18 [facility] (Rec: 06/03/23 16:31 [facility] [id number]) Compression Pump Treatment Treatment Location Right Leg Pressure Amount (mmHg) (mmHG) 47 Inflation Time (Seconds) 30 Deflation Time (Seconds) 10 Treatment Duration (minutes) 45 Treatment Tolerance Good Right Arm Pressure Amount (mmHg) (mmHG) 40 Inflation Time (Seconds) 30 Deflation Time (Seconds) 10 Treatment Duration (minutes) 45 Treatment Tolerance Good left LE Pressure Amount (mmHg) (mmHG) 47 Inflation Time (Seconds) 30 Deflation Time (Seconds) 10 Treatment Duration (minutes) 45 Treatment Tolerance Good Left Arm Pressure Amount (mmHg) (mmHG) 40 Inflation Time (Seconds) 30 Deflation Time (Seconds) 10 Treatment Duration (minutes) 45 Treatment Tolerance Good PT-OP-T Assessment and Plan Start: 10/28/22 09:19 Freq: Status: Active Protocol: Document 06/03/23 16:18 [facility] (Rec: 06/03/23 16:31 [facility]AK [id number]) Physical Therapy Assessment Goals Five Impairment compensatory movement patterns right UE Impairment overactivation of upper traps, postural dysfunction impacting right shoulder function Short Term Goal (STG) Patient will be able to self- correct posture and compensatory movements right shoulder with visual feedback of mirror STG Duration 05/23/23 [facility] Goal (LTG) Patient will be able to perform HEP and do functional movements right UE with improved posture, without compensatory movements for improved right shoulder function LTG Duration 06/22/23 Four Impairment lymphedema (lipidema-type) iram UE's, LEs, abdomen Short Term Goal (STG) Patient to be instructed in all aspects of lymphedema care to include skin care, manual lymphatic drainage, compression, lymphedema exercises STG Duration 06/20/23 [facility] Goal (LTG) Patient circumferential measurements dec and stabilized (no inc or dec greater than 1 cm over the course of 1 week) and patient to obtain appropriate compression garments. Patient to be independent with all aspects of self-management for lymphedema/lipidema LTG Duration 07/21/23 Three Impairment activity tolerance Impairment Quickdash UE disability index score60% [facility] Goal (LTG) Improve QuickDash score to no greater than 30% as measure of improved activity tolerance with right UE 12/30/22: decreased to 39% 02/18/23: 43% today, more sore after no PT for 1 week. 04/20/23: 40% LTG Duration 07/21/23 Two Impairment unable to reach overhead or behind her back with right shoulder Short Term Goal (STG) Patient will be able to reach use right UE to do her hair, and be able to pull pants up on right without increase in pain 12/30/22: goal progress 02/17/23: goal mostly met 04/06/23: goal met STG Duration goal met Associate Artistic Director Goal (LTG) Patient will demonstrate full ROM with right shoulder to allow her to do all usual activities 04/20/23: goal progress LTG Duration 07/21/23 One Impairment pain right shoulder as high as 8/10 Short Term Goal (STG) decrease pain to no greater than 6/10 with usual activities 12/30/22: pain decreased to 5/10 02/17/23: goal met STG Duration goal met [facility] Goal (LTG) decrease pain to no greater than 3/10 with all usual activities 04/06/23: goal progress though variable ability, when feeling better patient with tendency to reach without thinking and reports inc in pain. Also, weight of arms from lymphedema appears to contribute to shoulder dysfunction; patient will be requesting order for lymphedema treatment from PCP 04/20/23: pain generally 3-5/10 , progress LTG Duration 07/21/23 Assessment Summary Assessment Patient continues to struggle with bilateral UE and LE plus trunk lipidema. Despite 30+ days conservative PT for lymphedema management patient' s lipolymphedema persists bilateral UE's, LE's and trunk . Patient highly motivated and has obtained compression garments, compliant to HEP, skin care, and tries to do self-massage though difficulty due to her body size as well as right shoulder pain. Feel she would benefit highly from the use of a sequential pneumatic pump to help her with management of her lipolymphedema to improve her quality of life and prevent complications including potential for cellulities. Physical Therapy Plan Frequency and Duration Frequency of Treatment 2x/Week Duration of treatment (weeks) 12 Plan of Care Start Date 04/20/23 Plan of Care End Date 07/21/23 Therapeutic Interventions Therapeutic Interventions Aquatic Therapy,Home Exercise Program,Lymphedema Management, Manual Therapy,Patient/ Caregiver Education,Self-Care/ Home Management,Soft Tissue Mobilization,Taping, Therapeutic Activities, Therapeutic Exercises Modalities Cold Pack/Ice Massage,Electric Stimulation,Hot Packs, Infrared Therapy,Iontophoresis ,Ultrasound,Vasopneumatic Devices Next Visit Focus/Plan Next Note Type Treatment Note Next Visit Plan Continue lipolymphedema management for iram UE's, LE's and trunk.
--- NOTE | 2023-06-08 15:19 | PT.OTN ---
Current Diagnoses Lymphedema, not elsewhere classified (06/08/23) Pain in right shoulder (06/08/23) Incomplete rotator cuff tear or rupture of right shoulder, not specified as traumatic (06/08/23) Superior glenoid labrum lesion of right shoulder, initial encounter (06/08/23) Physical Therapy Treatment Note PT-OP-A Visit Information Start: 10/28/22 09:19 Freq: Status: Active Protocol: Document 06/03/23 16:18 SAK (Rec: 06/03/23 16:31 SAK [id number]) Out-Patient Physical Therapy Visit Information Visit Information Visit Type Treatment Note Visit Start Time 14:14 Visit Stop Time 15:45 Total Visit Minutes 90 Visit Number 44 PT-OP-B Current Condition Start: 10/28/22 09:19 Freq: Status: Active Protocol: Document 03/03/23 09:48 SAK (Rec: 03/03/23 10:38 SAK [id number]) Current Condition History of Current Condition Onset Date 1 1/2 years Current Complaints right History of Current Condition gradual onset right shoulder pain unknown reason. Increases with trying to reach overhead, out to side, or behind her back; pain and tingling. If tries to sleep on back both arms go numb. Unable to wear compression sleeve left due to pain right shoulder; patient previously seen by this PT for right shoulder pain and felt at that time pain at least some due to overuse right UE. Goes back to the doctor after PT ( Clifford Diggs). 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 Saw solar engineer. MRI right shoulder: incomplete RC tear, superior labral tear Prior Treatments and Tests Tylenol, ice, heat. Can't do UE ex at cardiac rehab, low tolerance for HEP previously instructed. Has TENS, but doesn't know how to use PT-OP-C Subjective Start: 10/28/22 09:19 Freq: Status: Active Protocol: Document 06/08/23 14:16 SAK (Rec: 06/08/23 15:19 SAK [id number]) OP-PT Subjective Patient Comments Patient Comments Patient reports losing 3 lbs. Continues to have difficulty donning compression. PT-OP-E Functional Tests Start: 10/28/22 09:19 Freq: Status: Active Protocol: Document 10/29/22 09:50 SAK (Rec: 10/29/22 17:12 SAK [id number]) Functional Tests Apley's Scratch Test Action 1- Left anterior shoulder Action 1- Right posterior shoulder Action 2- Left T2 Action 2- Right lateral neck Action 3- Left lateral hip Action 3- Right T7 PT-OP-H Neuro Start: 10/28/22 09:19 Freq: Status: Active Protocol: Document 10/29/22 09:50 SAK (Rec: 10/29/22 17:12 [facility] [id number]) Sensation Evaluation Gross Sensation Gross Sensation Left UE Impaired,Right UE Impaired Sensation Description Paresthesia Location Details Left Arm Light Touch Intact/Normal PT-OP-J Posture/Palpation/Skin Start: 10/28/22 09:19 Freq: Status: Active Protocol: Document 10/29/22 09:50 SAK (Rec: 10/29/22 17:12 [facility] [id number]) Posture Evaluation Position Sitting Head/C-Spine Posture Forward Head T-Spine Posture Increased Kyphosis L-Spine Posture Increased Lordosis Shoulder Posture (L) Rounded,(R) Rounded Scapula Posture (L) Protracted,(R) Protracted Arm Posture (L) Internally Rotated,(R) Internally Rotated Pelvis Posture Anteriorly Tilted Palpation Assessment Location RC insertion Palpation Findings Tenderness Palpation Details entire joint line painful to palpation PT-OP-K Range of Motion Start: 10/28/22 09:19 Freq: Status: Active Protocol: Document 05/21/23 10:14 SP (Rec: 05/21/23 10:53 SP [id number]) Shoulder Goniometric Range of Motion Shoulder Left Shoulder ROM WFL No Testing Position Sitting Flexion 138 Extension 45 Abduction 100 External Rotation at 0 degrees Abduction 80 Comments seated L shld AROM: FF improved de deg ABD improved 25 dedeg Ext: improved 35 dedeg ER: improved 25 de deg Right Testing Position Sitting Flexion 104 Abduction 95 External Rotation at 0 degrees Abduction 62 Internal Rotation Behind Back (text) right SI Comments seated AROM R shld: FF improved 14 de>119 deg post manual Abd: less 5 de deg ER: less 18 de deg IR: improved from R buttocks: right beltline/ SI, PT-OP-L Special Tests Start: 10/28/22 09:19 Freq: Status: Active Protocol: Document 10/29/22 09:50 SAK (Rec: 10/29/22 17:12 [facility] [id number]) Special Tests Shoulder Special Tests Lift-Off Rotator Cuff Test Results positive Elevation Impingement Test Results positive Drop Arm Rotator Cuff Test Results positve PT-OP-M Strength Start: 10/28/22 09:19 Freq: Status: Active Protocol: Document 10/29/22 09:50 SAK (Rec: 10/29/22 17:12 [facility] [id number]) Shoulder Strength Shoulder Manual Muscle Testing Left Flexion 4- Good- Extension 4- Good- Adduction 4 Good External Rotation 4- Good- Internal Rotation 4 Good PT-OP-N Lymphedema Start: 04/20/23 09:31 Freq: Status: Active Protocol: Document 06/03/23 16:18 [facility] (Rec: 06/03/23 16:31 [facility] [id number]) Lymphedema Measurements Upper Extremity Circumference Measurements Left Affected MCP 19.6 cm Dorsum of Hand 22.2 cm Wrist 19.9 cm 5 cm From Wrist Crease 26.6 cm 10 cm From Wrist Crease 31.5 cm 15 cm From Wrist Crease 34.5 cm 20 cm From Wrist Crease 36.7 cm 25 cm From Wrist Crease 36.9 cm 30 cm From Wrist Crease 46 cm 35 cm From Wrist Crease 51.1 cm 40 cm From Wrist Crease 48.8 cm Elbow Joint 35.3 cm Right Affected MCP 19.1 cm Dorsum of Hand 20.2 cm Wrist 18 cm 5 cm From Wrist Crease 23.9 cm 10 cm From Wrist Crease 29 cm 15 cm From Wrist Crease 32.3 cm 20 cm From Wrist Crease 33 cm 25 cm From Wrist Crease 38.4 cm 30 cm From Wrist Crease 45.9 cm 35 cm From Wrist Crease 48.5 cm 40 cm From Wrist Crease 45.3 cm Elbow Joint 31.9 cm Axilla 44.7 cm Lower Extremity Circumference Measurements Right Affected MT Heads 23 cm Mid-foot 24 cm Medial Malleolus 26.6 cm 10 cm From Medial Malleolus 26.2 cm 20 cm From Medial Malleolus 40.6 cm 30 cm From Medial Malleolus 44.8 cm 40 cm From Medial Malleolus 52.5 cm 50 cm From Medial Malleolus 66.8 cm 60 cm From Medial Malleolus 70.3 cm 70 cm From Medial Malleolus 69.5 cm Knee Joint 49 cm Left Affected MT Heads 22.7 cm Mid-foot 24.9 cm Medial Malleolus 27 cm 10 cm From Medial Malleolus 25.8 cm 20 cm From Medial Malleolus 38.5 cm 30 cm From Medial Malleolus 44 cm 40 cm From Medial Malleolus 54 cm 50 cm From Medial Malleolus 69.3 cm 60 cm From Medial Malleolus 74.5 cm 70 cm From Medial Malleolus 79.5 cm Knee Joint 48.7 cm - waist 122.5 hips 150.2 PT-OP-Q Treatments Start: 10/28/22 09:19 Freq: Status: Active Protocol: Document 06/08/23 14:16 [facility] (Rec: 06/08/23 15:19 [facility] [id number]) Lymphedema Treatment Lymphedema Wrapping Other compression sleeves applied iram UE's by PT, patient able to don compression shorts and stockings Sequential Lymphedema Exercises Location HEP Comments patient went to cardiac rehab prior to PT PT-OP-R Modalities Start: 10/28/22 09:19 Freq: Status: Active Protocol: Document 06/08/23 14:16 [facility] (Rec: 06/08/23 15:19 [facility] [id number]) Compression Pump Treatment Treatment Location Right Leg Pressure Amount (mmHg) (mmHG) 47 Inflation Time (Seconds) 30 Deflation Time (Seconds) 10 Treatment Duration (minutes) 45 Treatment Tolerance Good Right Arm Pressure Amount (mmHg) (mmHG) 40 Inflation Time (Seconds) 30 Deflation Time (Seconds) 10 Treatment Duration (minutes) 45 Treatment Tolerance Good left LE Pressure Amount (mmHg) (mmHG) 47 Inflation Time (Seconds) 30 Deflation Time (Seconds) 10 Treatment Duration (minutes) 45 Treatment Tolerance Good Left Arm Pressure Amount (mmHg) (mmHG) 40 Inflation Time (Seconds) 30 Deflation Time (Seconds) 10 Treatment Duration (minutes) 45 Treatment Tolerance Good PT-OP-T Assessment and Plan Start: 10/28/22 09:19 Freq: Status: Active Protocol: Document 06/08/23 14:16 [facility] (Rec: 06/08/23 15:19 [facility] [id number]) Physical Therapy Assessment Goals Five Impairment compensatory movement patterns right UE Impairment overactivation of upper traps, postural dysfunction impacting right shoulder function Short Term Goal (STG) Patient will be able to self- correct posture and compensatory movements right shoulder with visual feedback of mirror STG Duration 05/23/23 [facility] Goal (LTG) Patient will be able to perform HEP and do functional movements right UE with improved posture, without compensatory movements for improved right shoulder function LTG Duration 06/22/23 Four Impairment lymphedema (lipidema-type) iram UE's, LEs, abdomen Short Term Goal (STG) Patient to be instructed in all aspects of lymphedema care to include skin care, manual lymphatic drainage, compression, lymphedema exercises STG Duration 06/20/23 [employer] Goal (LTG) Patient circumferential measurements dec and stabilized (no inc or dec greater than 1 cm over the course of 1 week) and patient to obtain appropriate compression garments. Patient to be independent with all aspects of self-management for lymphedema/lipidema LTG Duration 07/21/23 Three Impairment activity tolerance Impairment Quickdash UE disability index score60% [employer] Goal (LTG) Improve QuickDash score to no greater than 30% as measure of improved activity tolerance with right UE 12/30/22: decreased to 39% 02/18/23: 43% today, more sore after no PT for 1 week. 04/20/23: 40% LTG Duration 07/21/23 Two Impairment unable to reach overhead or behind her back with right shoulder Short Term Goal (STG) Patient will be able to reach use right UE to do her hair, and be able to pull pants up on right without increase in pain 12/30/22: goal progress 02/17/23: goal mostly met 04/06/23: goal met STG Duration goal met [employer] Goal (LTG) Patient will demonstrate full ROM with right shoulder to allow her to do all usual activities 04/20/23: goal progress LTG Duration 07/21/23 One Impairment pain right shoulder as high as 8/10 Short Term Goal (STG) decrease pain to no greater than 6/10 with usual activities 12/30/22: pain decreased to 5/10 02/17/23: goal met STG Duration goal met Senior Care Goal (LTG) decrease pain to no greater than 3/10 with all usual activities 04/06/23: goal progress though variable ability, when feeling better patient with tendency to reach without thinking and reports inc in pain. Also, weight of arms from lymphedema appears to contribute to shoulder dysfunction; patient will be requesting order for lymphedema treatment from PCP 04/20/23: pain generally 3-5/10 , progress LTG Duration 07/21/23 Assessment Summary Assessment Has not heard about pump from Lidia Aries yet. More difficult to don compression sleeve left at end of treatment today. Will take circumferential measurements again next treatment. Patient has lost 3 lbs. Physical Therapy Plan Frequency and Duration Frequency of Treatment 2x/Week Duration of treatment (weeks) 12 Plan of Care Start Date 04/20/23 Plan of Care End Date 07/21/23 Therapeutic Interventions Therapeutic Interventions Aquatic Therapy,Home Exercise Program,Lymphedema Management, Manual Therapy,Patient/ Caregiver Education,Self-Care/ Home Management,Soft Tissue Mobilization,Taping, Therapeutic Activities, Therapeutic Exercises Modalities Cold Pack/Ice Massage,Electric Stimulation,Hot Packs, Infrared Therapy,Iontophoresis ,Ultrasound,Vasopneumatic Devices Next Visit Focus/Plan Next Note Type Treatment Note Next Visit Plan Continue lipolymphedema management for iram UE's, LE's and trunk. Instruct in use of home pump when receives. Patient to call lymphedema clinic for consultation.
--- NOTE | 2023-06-08 15:20 | PT.OTN ---
Current Diagnoses Lymphedema, not elsewhere classified (06/08/23) Pain in right shoulder (06/08/23) Incomplete rotator cuff tear or rupture of right shoulder, not specified as traumatic (06/08/23) Superior glenoid labrum lesion of right shoulder, initial encounter (06/08/23) Physical Therapy Treatment Note PT-OP-A Visit Information Start: 10/28/22 09:19 Freq: Status: Active Protocol: Document 06/08/23 14:16 SAK (Rec: 06/08/23 15:20 SAK [id number]) Out-Patient Physical Therapy Visit Information Visit Information Visit Start Time 14:16 Visit Stop Time 14:46 Total Visit Minutes 90 Visit Number 45 PT-OP-B Current Condition Start: 10/28/22 09:19 Freq: Status: Active Protocol: Document 03/03/23 09:48 SAK (Rec: 03/03/23 10:38 SAK [id number]) Current Condition History of Current Condition Onset Date 1 1/2 years Current Complaints right History of Current Condition gradual onset right shoulder pain unknown reason. Increases with trying to reach overhead, out to side, or behind her back; pain and tingling. If tries to sleep on back both arms go numb. Unable to wear compression sleeve left due to pain right shoulder; patient previously seen by this PT for right shoulder pain and felt at that time pain at least some due to overuse right UE. Goes back to the doctor after PT ( Clifford Diggs). 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 Saw manager operational. MRI right shoulder: incomplete RC tear, superior labral tear Prior Treatments and Tests Tylenol, ice, heat. Can't do UE ex at cardiac rehab, low tolerance for HEP previously instructed. Has TENS, but doesn't know how to use PT-OP-C Subjective Start: 10/28/22 09:19 Freq: Status: Active Protocol: Document 06/08/23 14:16 SAK (Rec: 06/08/23 15:19 SAK [id number]) OP-PT Subjective Patient Comments Patient Comments Patient reports losing 3 lbs. Continues to have difficulty donning compression. PT-OP-E Functional Tests Start: 10/28/22 09:19 Freq: Status: Active Protocol: Document 10/29/22 09:50 SAK (Rec: 10/29/22 17:12 SAK [id number]) Functional Tests Apley's Scratch Test Action 1- Left anterior shoulder Action 1- Right posterior shoulder Action 2- Left T2 Action 2- Right lateral neck Action 3- Left lateral hip Action 3- Right T7 PT-OP-H Neuro Start: 10/28/22 09:19 Freq: Status: Active Protocol: Document 10/29/22 09:50 SAK (Rec: 10/29/22 17:12 SAK [id number]) Sensation Evaluation Gross Sensation Gross Sensation Left UE Impaired,Right UE Impaired Sensation Description Paresthesia Location Details Left Arm Light Touch Intact/Normal PT-OP-J Posture/Palpation/Skin Start: 10/28/22 09:19 Freq: Status: Active Protocol: Document 10/29/22 09:50 SAK (Rec: 10/29/22 17:12 [facility] [id number]) Posture Evaluation Position Sitting Head/C-Spine Posture Forward Head T-Spine Posture Increased Kyphosis L-Spine Posture Increased Lordosis Shoulder Posture (L) Rounded,(R) Rounded Scapula Posture (L) Protracted,(R) Protracted Arm Posture (L) Internally Rotated,(R) Internally Rotated Pelvis Posture Anteriorly Tilted Palpation Assessment Location RC insertion Palpation Findings Tenderness Palpation Details entire joint line painful to palpation PT-OP-K Range of Motion Start: 10/28/22 09:19 Freq: Status: Active Protocol: Document 05/21/23 10:14 SP (Rec: 05/21/23 10:53 SP [id number]) Shoulder Goniometric Range of Motion Shoulder Left Shoulder ROM WFL No Testing Position Sitting Flexion 138 Extension 45 Abduction 100 External Rotation at 0 degrees Abduction 80 Comments seated L shld AROM: FF improved de deg ABD improved 25 dedeg Ext: improved 35 dedeg ER: improved 25 de deg Right Testing Position Sitting Flexion 104 Abduction 95 External Rotation at 0 degrees Abduction 62 Internal Rotation Behind Back (text) right SI Comments seated AROM R shld: FF improved 14 de>119 deg post manual Abd: less 5 de deg ER: less 18 de deg IR: improved from R buttocks: right beltline/ SI, PT-OP-L Special Tests Start: 10/28/22 09:19 Freq: Status: Active Protocol: Document 10/29/22 09:50 SAK (Rec: 10/29/22 17:12 SAK [id number]) Special Tests Shoulder Special Tests Lift-Off Rotator Cuff Test Results positive Elevation Impingement Test Results positive Drop Arm Rotator Cuff Test Results positve PT-OP-M Strength Start: 10/28/22 09:19 Freq: Status: Active Protocol: Document 10/29/22 09:50 [facility] (Rec: 10/29/22 17:12 [facility] [id number]) Shoulder Strength Shoulder Manual Muscle Testing Left Flexion 4- Good- Extension 4- Good- Adduction 4 Good External Rotation 4- Good- Internal Rotation 4 Good PT-OP-N Lymphedema Start: 04/20/23 09:31 Freq: Status: Active Protocol: Document 06/03/23 16:18 [facility] (Rec: 06/03/23 16:31 [facility] [id number]) Lymphedema Measurements Upper Extremity Circumference Measurements Left Affected MCP 19.6 cm Dorsum of Hand 22.2 cm Wrist 19.9 cm 5 cm From Wrist Crease 26.6 cm 10 cm From Wrist Crease 31.5 cm 15 cm From Wrist Crease 34.5 cm 20 cm From Wrist Crease 36.7 cm 25 cm From Wrist Crease 36.9 cm 30 cm From Wrist Crease 46 cm 35 cm From Wrist Crease 51.1 cm 40 cm From Wrist Crease 48.8 cm Elbow Joint 35.3 cm Right Affected MCP 19.1 cm Dorsum of Hand 20.2 cm Wrist 18 cm 5 cm From Wrist Crease 23.9 cm 10 cm From Wrist Crease 29 cm 15 cm From Wrist Crease 32.3 cm 20 cm From Wrist Crease 33 cm 25 cm From Wrist Crease 38.4 cm 30 cm From Wrist Crease 45.9 cm 35 cm From Wrist Crease 48.5 cm 40 cm From Wrist Crease 45.3 cm Elbow Joint 31.9 cm Axilla 44.7 cm Lower Extremity Circumference Measurements Right Affected MT Heads 23 cm Mid-foot 24 cm Medial Malleolus 26.6 cm 10 cm From Medial Malleolus 26.2 cm 20 cm From Medial Malleolus 40.6 cm 30 cm From Medial Malleolus 44.8 cm 40 cm From Medial Malleolus 52.5 cm 50 cm From Medial Malleolus 66.8 cm 60 cm From Medial Malleolus 70.3 cm 70 cm From Medial Malleolus 69.5 cm Knee Joint 49 cm Left Affected MT Heads 22.7 cm Mid-foot 24.9 cm Medial Malleolus 27 cm 10 cm From Medial Malleolus 25.8 cm 20 cm From Medial Malleolus 38.5 cm 30 cm From Medial Malleolus 44 cm 40 cm From Medial Malleolus 54 cm 50 cm From Medial Malleolus 69.3 cm 60 cm From Medial Malleolus 74.5 cm 70 cm From Medial Malleolus 79.5 cm Knee Joint 48.7 cm - waist 122.5 hips 150.2 PT-OP-Q Treatments Start: 10/28/22 09:19 Freq: Status: Active Protocol: Document 06/08/23 14:16 [facility] (Rec: 06/08/23 15:19 [facility] [id number]) Lymphedema Treatment Lymphedema Wrapping Other compression sleeves applied iram UE's by PT, patient able to don compression shorts and stockings Sequential Lymphedema Exercises Location HEP Comments patient went to cardiac rehab prior to PT PT-OP-R Modalities Start: 10/28/22 09:19 Freq: Status: Active Protocol: Document 06/08/23 14:16 [facility] (Rec: 06/08/23 15:19 [facility] [id number]) Compression Pump Treatment Treatment Location Right Leg Pressure Amount (mmHg) (mmHG) 47 Inflation Time (Seconds) 30 Deflation Time (Seconds) 10 Treatment Duration (minutes) 45 Treatment Tolerance Good Right Arm Pressure Amount (mmHg) (mmHG) 40 Inflation Time (Seconds) 30 Deflation Time (Seconds) 10 Treatment Duration (minutes) 45 Treatment Tolerance Good left LE Pressure Amount (mmHg) (mmHG) 47 Inflation Time (Seconds) 30 Deflation Time (Seconds) 10 Treatment Duration (minutes) 45 Treatment Tolerance Good Left Arm Pressure Amount (mmHg) (mmHG) 40 Inflation Time (Seconds) 30 Deflation Time (Seconds) 10 Treatment Duration (minutes) 45 Treatment Tolerance Good PT-OP-T Assessment and Plan Start: 10/28/22 09:19 Freq: Status: Active Protocol: Document 06/08/23 14:16 [facility] (Rec: 06/08/23 15:19 [facility] [id number]) Physical Therapy Assessment Goals Five Impairment compensatory movement patterns right UE Impairment overactivation of upper traps, postural dysfunction impacting right shoulder function Short Term Goal (STG) Patient will be able to self- correct posture and compensatory movements right shoulder with visual feedback of mirror STG Duration 05/23/23 [employer] Goal (LTG) Patient will be able to perform HEP and do functional movements right UE with improved posture, without compensatory movements for improved right shoulder function LTG Duration 06/22/23 Four Impairment lymphedema (lipidema-type) iram UE's, LEs, abdomen Short Term Goal (STG) Patient to be instructed in all aspects of lymphedema care to include skin care, manual lymphatic drainage, compression, lymphedema exercises STG Duration 06/20/23 [employer] Goal (LTG) Patient circumferential measurements dec and stabilized (no inc or dec greater than 1 cm over the course of 1 week) and patient to obtain appropriate compression garments. Patient to be independent with all aspects of self-management for lymphedema/lipidema LTG Duration 07/21/23 Three Impairment activity tolerance Impairment Quickdash UE disability index score60% [employer] Goal (LTG) Improve QuickDash score to no greater than 30% as measure of improved activity tolerance with right UE 12/30/22: decreased to 39% 02/18/23: 43% today, more sore after no PT for 1 week. 04/20/23: 40% LTG Duration 07/21/23 Two Impairment unable to reach overhead or behind her back with right shoulder Short Term Goal (STG) Patient will be able to reach use right UE to do her hair, and be able to pull pants up on right without increase in pain 12/30/22: goal progress 02/17/23: goal mostly met 04/06/23: goal met STG Duration goal met [employer] Goal (LTG) Patient will demonstrate full ROM with right shoulder to allow her to do all usual activities 04/20/23: goal progress LTG Duration 07/21/23 One Impairment pain right shoulder as high as 8/10 Short Term Goal (STG) decrease pain to no greater than 6/10 with usual activities 12/30/22: pain decreased to 5/10 02/17/23: goal met STG Duration goal met [facility] Goal (LTG) decrease pain to no greater than 3/10 with all usual activities 04/06/23: goal progress though variable ability, when feeling better patient with tendency to reach without thinking and reports inc in pain. Also, weight of arms from lymphedema appears to contribute to shoulder dysfunction; patient will be requesting order for lymphedema treatment from PCP 04/20/23: pain generally 3-5/10 , progress LTG Duration 07/21/23 Assessment Summary Assessment Has not heard about pump from Lidia Chris yet. More difficult to don compression sleeve left at end of treatment today. Will take circumferential measurements again next treatment. Patient has lost 3 lbs. Physical Therapy Plan Frequency and Duration Frequency of Treatment 2x/Week Duration of treatment (weeks) 12 Plan of Care Start Date 04/20/23 Plan of Care End Date 07/21/23 Therapeutic Interventions Therapeutic Interventions Aquatic Therapy,Home Exercise Program,Lymphedema Management, Manual Therapy,Patient/ Caregiver Education,Self-Care/ Home Management,Soft Tissue Mobilization,Taping, Therapeutic Activities, Therapeutic Exercises Modalities Cold Pack/Ice Massage,Electric Stimulation,Hot Packs, Infrared Therapy,Iontophoresis ,Ultrasound,Vasopneumatic Devices Next Visit Focus/Plan Next Note Type Treatment Note Next Visit Plan Continue lipolymphedema management for iram UE's, LE's and trunk. Instruct in use of home pump when receives. Patient to call lymphedema clinic for consultation.
--- NOTE | 2023-06-10 16:06 | PT.OTN ---
Current Diagnoses Lymphedema, not elsewhere classified (06/10/23) Pain in right shoulder (06/10/23) Incomplete rotator cuff tear or rupture of right shoulder, not specified as traumatic (06/10/23) Superior glenoid labrum lesion of right shoulder, initial encounter (06/10/23) Physical Therapy Treatment Note PT-OP-A Visit Information Start: 10/28/22 09:19 Freq: Status: Active Protocol: Document 06/10/23 14:06 SAK (Rec: 06/10/23 14:20 [facility] [id number]) Out-Patient Physical Therapy Visit Information Visit Information Visit Type Treatment Note Visit Start Time 14:16 Visit Stop Time 14:46 Total Visit Minutes 90 Visit Number 45 PT-OP-B Current Condition Start: 10/28/22 09:19 Freq: Status: Active Protocol: Document 03/03/23 09:48 SAK (Rec: 03/03/23 10:38 SAK [id number]) Current Condition History of Current Condition Onset Date 1 1/2 years Current Complaints right History of Current Condition gradual onset right shoulder pain unknown reason. Increases with trying to reach overhead, out to side, or behind her back; pain and tingling. If tries to sleep on back both arms go numb. Unable to wear compression sleeve left due to pain right shoulder; patient previously seen by this PT for right shoulder pain and felt at that time pain at least some due to overuse right UE. Goes back to the doctor after PT ( Clifford Diggs). 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 Saw automotive painter helper. MRI right shoulder: incomplete RC tear, superior labral tear Prior Treatments and Tests Tylenol, ice, heat. Can't do UE ex at cardiac rehab, low tolerance for HEP previously instructed. Has TENS, but doesn't know how to use PT-OP-C Subjective Start: 10/28/22 09:19 Freq: Status: Active Protocol: Document 06/10/23 14:06 SAK (Rec: 06/10/23 15:58 [facility] [id number]) OP-PT Subjective Patient Comments Patient Comments Patient reports not feeling like she's getting better, wearing compression though arm sleeves hard to keep up high and feels they slide down so quickly, increasing upper arm swelling. Couldn't find phone number for [facility] as discussed with PT. Hasn't gone to the pool per PT recommendation for lipolymphedema due to so many medical appointments . Patient Reported Progress Improving PT-OP-E Functional Tests Start: 10/28/22 09:19 Freq: Status: Active Protocol: Document 10/29/22 09:50 SAK (Rec: 10/29/22 17:12 [facility] [id number]) Functional Tests Apley's Scratch Test Action 1- Left anterior shoulder Action 1- Right posterior shoulder Action 2- Left T2 Action 2- Right lateral neck Action 3- Left lateral hip Action 3- Right T7 PT-OP-H Neuro Start: 10/28/22 09:19 Freq: Status: Active Protocol: Document 10/29/22 09:50 SAK (Rec: 10/29/22 17:12 [facility] [id number]) Sensation Evaluation Gross Sensation Gross Sensation Left UE Impaired,Right UE Impaired Sensation Description Paresthesia Location Details Left Arm Light Touch Intact/Normal PT-OP-J Posture/Palpation/Skin Start: 10/28/22 09:19 Freq: Status: Active Protocol: Document 10/29/22 09:50 SAK (Rec: 10/29/22 17:12 [facility] [id number]) Posture Evaluation Position Sitting Head/C-Spine Posture Forward Head T-Spine Posture Increased Kyphosis L-Spine Posture Increased Lordosis Shoulder Posture (L) Rounded,(R) Rounded Scapula Posture (L) Protracted,(R) Protracted Arm Posture (L) Internally Rotated,(R) Internally Rotated Pelvis Posture Anteriorly Tilted Palpation Assessment Location RC insertion Palpation Findings Tenderness Palpation Details entire joint line painful to palpation PT-OP-K Range of Motion Start: 10/28/22 09:19 Freq: Status: Active Protocol: Document 05/21/23 10:14 SP (Rec: 05/21/23 10:53 SP [id number]) Shoulder Goniometric Range of Motion Shoulder Left Shoulder ROM WFL No Testing Position Sitting Flexion 138 Extension 45 Abduction 100 External Rotation at 0 degrees Abduction 80 Comments seated L shld AROM: FF improved de deg ABD improved 25 dedeg Ext: improved 35 dedeg ER: improved 25 de deg Right Testing Position Sitting Flexion 104 Abduction 95 External Rotation at 0 degrees Abduction 62 Internal Rotation Behind Back (text) right SI Comments seated AROM R shld: FF improved 14 de>119 deg post manual Abd: less 5 de deg ER: less 18 de deg IR: improved from R buttocks: right beltline/ SI, PT-OP-L Special Tests Start: 10/28/22 09:19 Freq: Status: Active Protocol: Document 10/29/22 09:50 SAK (Rec: 10/29/22 17:12 [facility] [id number]) Special Tests Shoulder Special Tests Lift-Off Rotator Cuff Test Results positive Elevation Impingement Test Results positive Drop Arm Rotator Cuff Test Results positve PT-OP-M Strength Start: 10/28/22 09:19 Freq: Status: Active Protocol: Document 10/29/22 09:50 SAK (Rec: 10/29/22 17:12 [facility] [id number]) Shoulder Strength Shoulder Manual Muscle Testing Left Flexion 4- Good- Extension 4- Good- Adduction 4 Good External Rotation 4- Good- Internal Rotation 4 Good PT-OP-N Lymphedema Start: 04/20/23 09:31 Freq: Status: Active Protocol: Document 06/10/23 14:06 [facility] (Rec: 06/10/23 15:56 [facility] [id number]) Lymphedema Measurements Upper Extremity Circumference Measurements Left Affected MCP 19.5 cm Dorsum of Hand 22 cm Wrist 20 cm 5 cm From Wrist Crease 27.2 cm 10 cm From Wrist Crease 32 cm 15 cm From Wrist Crease 35.8 cm 20 cm From Wrist Crease 37.7 cm 25 cm From Wrist Crease 40.6 cm 30 cm From Wrist Crease 48 cm 35 cm From Wrist Crease 52.9 cm 40 cm From Wrist Crease 49.1 cm Elbow Joint 37.4 cm Right Affected MCP 19.1 cm Dorsum of Hand 18.9 cm Wrist 18 cm 5 cm From Wrist Crease 23.2 cm 10 cm From Wrist Crease 28 cm 15 cm From Wrist Crease 32.3 cm 20 cm From Wrist Crease 33.9 cm 25 cm From Wrist Crease 38.8 cm 30 cm From Wrist Crease 47 cm 35 cm From Wrist Crease 48.8 cm 40 cm From Wrist Crease 47.9 cm Elbow Joint 32.9 cm Axilla 46.9 cm Lower Extremity Circumference Measurements Right Affected MT Heads 23.2 cm Mid-foot 24.3 cm Medial Malleolus 26.5 cm 10 cm From Medial Malleolus 26 cm 20 cm From Medial Malleolus 40.5 cm 30 cm From Medial Malleolus 45 cm 40 cm From Medial Malleolus 54.6 cm 50 cm From Medial Malleolus 67.8 cm 60 cm From Medial Malleolus 70.5 cm 70 cm From Medial Malleolus 70 cm Knee Joint 49 cm Left Affected MT Heads 23.8 cm Mid-foot 24.7 cm Medial Malleolus 27.9 cm 10 cm From Medial Malleolus 25.6 cm 20 cm From Medial Malleolus 38.5 cm 30 cm From Medial Malleolus 44.2 cm 40 cm From Medial Malleolus 54 cm 50 cm From Medial Malleolus 66.5 cm 60 cm From Medial Malleolus 69.8 cm 70 cm From Medial Malleolus 79.6 cm Knee Joint 46 cm PT-OP-Q Treatments Start: 10/28/22 09:19 Freq: Status: Active Protocol: Document 06/10/23 14:06 [facility] (Rec: 06/10/23 14:20 [facility] [id number]) Lymphedema Treatment Manual Lymphatic Drainage Location for iram UE, LE, and trunkal edema Duration 60 Lymphedema Wrapping Other compression sleeves applied iram UE's by PT, patient able to don compression shorts and stockings Sequential Lymphedema Exercises Location HEP Comments patient went to cardiac rehab prior to PT Compression Garment Assessment Compression Garment Assessment Details Good fit but difficulty with donning UE garments due to size of UE's, shoulder pain Patient Education Compression Garments discussed Other Other LE circumferential measurements taken PT-OP-R Modalities Start: 10/28/22 09:19 Freq: Status: Active Protocol: Document 06/10/23 14:06 [facility] (Rec: 06/10/23 16:06 [facility] [id number]) Compression Pump Treatment Treatment Location Right Leg Pressure Amount (mmHg) (mmHG) 47 Inflation Time (Seconds) 30 Deflation Time (Seconds) 10 Treatment Duration (minutes) 45 Treatment Tolerance Good Right Arm Pressure Amount (mmHg) (mmHG) 40 Inflation Time (Seconds) 30 Deflation Time (Seconds) 10 Treatment Duration (minutes) 45 Treatment Tolerance Good left LE Pressure Amount (mmHg) (mmHG) 47 Inflation Time (Seconds) 30 Deflation Time (Seconds) 10 Treatment Duration (minutes) 45 Treatment Tolerance Good Left Arm Pressure Amount (mmHg) (mmHG) 40 Inflation Time (Seconds) 30 Deflation Time (Seconds) 10 Treatment Duration (minutes) 45 Treatment Tolerance Good PT-OP-T Assessment and Plan Start: 10/28/22 09:19 Freq: Status: Active Protocol: Document 06/10/23 14:06 TOAN (Rec: 06/10/23 16:06 [facility] [id number]) Physical Therapy Assessment Goals Five Impairment compensatory movement patterns right UE Impairment overactivation of upper traps, postural dysfunction impacting right shoulder function Short Term Goal (STG) Patient will be able to self- correct posture and compensatory movements right shoulder with visual feedback of mirror STG Duration 05/23/23 Fdc Goal (LTG) Patient will be able to perform HEP and do functional movements right UE with improved posture, without compensatory movements for improved right shoulder function LTG Duration 06/22/23 Four Impairment lymphedema (lipidema-type) iram UE's, LEs, abdomen Short Term Goal (STG) Patient to be instructed in all aspects of lymphedema care to include skin care, manual lymphatic drainage, compression, lymphedema exercises STG Duration 06/20/23 Supercharge Repair Supervisor Goal (LTG) Patient circumferential measurements dec and stabilized (no inc or dec greater than 1 cm over the course of 1 week) and patient to obtain appropriate compression garments. Patient to be independent with all aspects of self-management for lymphedema/lipidema LTG Duration 07/21/23 Three Impairment activity tolerance Impairment Quickdash UE disability index score60% Fdc Goal (LTG) Improve QuickDash score to no greater than 30% as measure of improved activity tolerance with right UE 12/30/22: decreased to 39% 02/18/23: 43% today, more sore after no PT for 1 week. 04/20/23: 40% LTG Duration 07/21/23 Two Impairment unable to reach overhead or behind her back with right shoulder Short Term Goal (STG) Patient will be able to reach use right UE to do her hair, and be able to pull pants up on right without increase in pain 12/30/22: goal progress 02/17/23: goal mostly met 04/06/23: goal met STG Duration goal met Fdc Goal (LTG) Patient will demonstrate full ROM with right shoulder to allow her to do all usual activities 04/20/23: goal progress LTG Duration 07/21/23 One Impairment pain right shoulder as high as 8/10 Short Term Goal (STG) decrease pain to no greater than 6/10 with usual activities 12/30/22: pain decreased to 5/10 02/17/23: goal met STG Duration goal met Supercharge Repair Supervisor Goal (LTG) decrease pain to no greater than 3/10 with all usual activities 04/06/23: goal progress though variable ability, when feeling better patient with tendency to reach without thinking and reports inc in pain. Also, weight of arms from lymphedema appears to contribute to shoulder dysfunction; patient will be requesting order for lymphedema treatment from PCP 04/20/23: pain generally 3-5/10 , progress LTG Duration 07/21/23 Assessment Summary Assessment Patient circumferential measurements the same or inc today UE's or LE's most measurements. Has not gone to the pool yet, and patient and PT have not yet heard back about lymphedema pump. Due to difficulty donning compression sleeves adequately and keeping them up high enough, recommend patient call [employer] about the iram connected compression garment to discuss ease of donning as it appears would do better job at proximal UE's. Also recommended patient contact [facility] for consult Again encouraged she go to the pool to allow for inc mobility and water pressure to facilitate lymphatic flow Physical Therapy Plan Frequency and Duration Frequency of Treatment 2x/Week Duration of treatment (weeks) 12 Plan of Care Start Date 04/20/23 Plan of Care End Date 07/21/23 Therapeutic Interventions Therapeutic Interventions Aquatic Therapy,Home Exercise Program,Lymphedema Management, Manual Therapy,Patient/ Caregiver Education,Self-Care/ Home Management,Soft Tissue Mobilization,Taping, Therapeutic Activities, Therapeutic Exercises Modalities Cold Pack/Ice Massage,Electric Stimulation,Hot Packs, Infrared Therapy,Iontophoresis ,Ultrasound,Vasopneumatic Devices Next Visit Focus/Plan Next Note Type Treatment Note Next Visit Plan Continue lipolymphedema management for iram UE's, LE's and trunk. Instruct in use of home pump when receives. Patient to call [facility] for consultation and call [employer] about bilateral compression garment that is connected at the back to improve coverage of proximal UE's.
--- NOTE | 2023-06-14 14:34 | PT.OTN ---
Current Diagnoses Lymphedema, not elsewhere classified (06/14/23) Pain in right shoulder (06/14/23) Incomplete rotator cuff tear or rupture of right shoulder, not specified as traumatic (06/14/23) Superior glenoid labrum lesion of right shoulder, initial encounter (06/14/23) Physical Therapy Treatment Note PT-OP-A Visit Information Start: 10/28/22 09:19 Freq: Status: Active Protocol: Document 06/14/23 13:19 SAK (Rec: 06/14/23 14:07 [facility] [id number]) Out-Patient Physical Therapy Visit Information Visit Information Visit Type Treatment Note Visit Start Time 14:16 Visit Stop Time 14:46 Total Visit Minutes 90 Visit Number 45 PT-OP-B Current Condition Start: 10/28/22 09:19 Freq: Status: Active Protocol: Document 03/03/23 09:48 SAK (Rec: 03/03/23 10:38 SAK [id number]) Current Condition History of Current Condition Onset Date 1 1/2 years Current Complaints right History of Current Condition gradual onset right shoulder pain unknown reason. Increases with trying to reach overhead, out to side, or behind her back; pain and tingling. If tries to sleep on back both arms go numb. Unable to wear compression sleeve left due to pain right shoulder; patient previously seen by this PT for right shoulder pain and felt at that time pain at least some due to overuse right UE. Goes back to the doctor after PT ( Clifford Diggs). 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 Saw television presenter. MRI right shoulder: incomplete RC tear, superior labral tear Prior Treatments and Tests Tylenol, ice, heat. Can't do UE ex at cardiac rehab, low tolerance for HEP previously instructed. Has TENS, but doesn't know how to use PT-OP-C Subjective Start: 10/28/22 09:19 Freq: Status: Active Protocol: Document 06/14/23 13:19 SAK (Rec: 06/14/23 14:07 [facility] [id number]) OP-PT Subjective Patient Comments Patient Comments Called [employer] about Bolero compression; waiting to hear back. Having sale in June. Didn't get home with phone for [facility] lymphedema [facility]. Has company so not able to go to the pool. Called [facility] to tell her not able to get garment all the way to [place], going back for consult. PT-OP-E Functional Tests Start: 10/28/22 09:19 Freq: Status: Active Protocol: Document 10/29/22 09:50 SAK (Rec: 10/29/22 17:12 SAK [id number]) Functional Tests Apley's Scratch Test Action 1- Left anterior shoulder Action 1- Right posterior shoulder Action 2- Left T2 Action 2- Right lateral neck Action 3- Left lateral hip Action 3- Right T7 PT-OP-H Neuro Start: 10/28/22 09:19 Freq: Status: Active Protocol: Document 10/29/22 09:50 SAK (Rec: 10/29/22 17:12 SAK [id number]) Sensation Evaluation Gross Sensation Gross Sensation Left UE Impaired,Right UE Impaired Sensation Description Paresthesia Location Details Left Arm Light Touch Intact/Normal PT-OP-J Posture/Palpation/Skin Start: 10/28/22 09:19 Freq: Status: Active Protocol: Document 10/29/22 09:50 SAK (Rec: 10/29/22 17:12 [facility] [id number]) Posture Evaluation Position Sitting Head/C-Spine Posture Forward Head T-Spine Posture Increased Kyphosis L-Spine Posture Increased Lordosis Shoulder Posture (L) Rounded,(R) Rounded Scapula Posture (L) Protracted,(R) Protracted Arm Posture (L) Internally Rotated,(R) Internally Rotated Pelvis Posture Anteriorly Tilted Palpation Assessment Location RC insertion Palpation Findings Tenderness Palpation Details entire joint line painful to palpation PT-OP-K Range of Motion Start: 10/28/22 09:19 Freq: Status: Active Protocol: Document 05/21/23 10:14 SP (Rec: 05/21/23 10:53 SP [id number]) Shoulder Goniometric Range of Motion Shoulder Left Shoulder ROM WFL No Testing Position Sitting Flexion 138 Extension 45 Abduction 100 External Rotation at 0 degrees Abduction 80 Comments seated L shld AROM: FF improved de deg ABD improved 25 dedeg Ext: improved 35 dedeg ER: improved 25 de deg Right Testing Position Sitting Flexion 104 Abduction 95 External Rotation at 0 degrees Abduction 62 Internal Rotation Behind Back (text) right SI Comments seated AROM R shld: FF improved 14 de>119 deg post manual Abd: less 5 de deg ER: less 18 de deg IR: improved from R buttocks: right beltline/ SI, PT-OP-L Special Tests Start: 10/28/22 09:19 Freq: Status: Active Protocol: Document 10/29/22 09:50 SAK (Rec: 10/29/22 17:12 [facility] [id number]) Special Tests Shoulder Special Tests Lift-Off Rotator Cuff Test Results positive Elevation Impingement Test Results positive Drop Arm Rotator Cuff Test Results positve PT-OP-M Strength Start: 10/28/22 09:19 Freq: Status: Active Protocol: Document 10/29/22 09:50 SAK (Rec: 10/29/22 17:12 [facility] [id number]) Shoulder Strength Shoulder Manual Muscle Testing Left Flexion 4- Good- Extension 4- Good- Adduction 4 Good External Rotation 4- Good- Internal Rotation 4 Good PT-OP-N Lymphedema Start: 04/20/23 09:31 Freq: Status: Active Protocol: Document 06/10/23 14:06 SAK (Rec: 06/10/23 15:56 [facility] [id number]) Lymphedema Measurements Upper Extremity Circumference Measurements Left Affected MCP 19.5 cm Dorsum of Hand 22 cm Wrist 20 cm 5 cm From Wrist Crease 27.2 cm 10 cm From Wrist Crease 32 cm 15 cm From Wrist Crease 35.8 cm 20 cm From Wrist Crease 37.7 cm 25 cm From Wrist Crease 40.6 cm 30 cm From Wrist Crease 48 cm 35 cm From Wrist Crease 52.9 cm 40 cm From Wrist Crease 49.1 cm Elbow Joint 37.4 cm Right Affected MCP 19.1 cm Dorsum of Hand 18.9 cm Wrist 18 cm 5 cm From Wrist Crease 23.2 cm 10 cm From Wrist Crease 28 cm 15 cm From Wrist Crease 32.3 cm 20 cm From Wrist Crease 33.9 cm 25 cm From Wrist Crease 38.8 cm 30 cm From Wrist Crease 47 cm 35 cm From Wrist Crease 48.8 cm 40 cm From Wrist Crease 47.9 cm Elbow Joint 32.9 cm Axilla 46.9 cm Lower Extremity Circumference Measurements Right Affected MT Heads 23.2 cm Mid-foot 24.3 cm Medial Malleolus 26.5 cm 10 cm From Medial Malleolus 26 cm 20 cm From Medial Malleolus 40.5 cm 30 cm From Medial Malleolus 45 cm 40 cm From Medial Malleolus 54.6 cm 50 cm From Medial Malleolus 67.8 cm 60 cm From Medial Malleolus 70.5 cm 70 cm From Medial Malleolus 70 cm Knee Joint 49 cm Left Affected MT Heads 23.8 cm Mid-foot 24.7 cm Medial Malleolus 27.9 cm 10 cm From Medial Malleolus 25.6 cm 20 cm From Medial Malleolus 38.5 cm 30 cm From Medial Malleolus 44.2 cm 40 cm From Medial Malleolus 54 cm 50 cm From Medial Malleolus 66.5 cm 60 cm From Medial Malleolus 69.8 cm 70 cm From Medial Malleolus 79.6 cm Knee Joint 46 cm PT-OP-Q Treatments Start: 10/28/22 09:19 Freq: Status: Active Protocol: Document 06/14/23 13:19 [facility] (Rec: 06/14/23 14:07 [facility] [id number]) Lymphedema Treatment Manual Lymphatic Drainage Location for iram UE, LE, and trunkal edema Duration 60 Lymphedema Wrapping Other patient to apply compression garments at home with daughter 's help Sequential Lymphedema Exercises Location HEP Compression Garment Assessment Compression Garment Assessment Details patient to go back to [facility] to consult regarding compression sleeves being too short PT-OP-R Modalities Start: 10/28/22 09:19 Freq: Status: Active Protocol: Document 06/14/23 13:19 [facility] (Rec: 06/14/23 14:07 [facility] [id number]) Compression Pump Treatment Treatment Location Right Leg Pressure Amount (mmHg) (mmHG) 47 Inflation Time (Seconds) 30 Deflation Time (Seconds) 10 Treatment Duration (minutes) 45 Treatment Tolerance Good Right Arm Pressure Amount (mmHg) (mmHG) 40 Inflation Time (Seconds) 30 Deflation Time (Seconds) 10 Treatment Duration (minutes) 45 Treatment Tolerance Good left LE Pressure Amount (mmHg) (mmHG) 47 Inflation Time (Seconds) 30 Deflation Time (Seconds) 10 Treatment Duration (minutes) 45 Treatment Tolerance Good Left Arm Pressure Amount (mmHg) (mmHG) 40 Inflation Time (Seconds) 30 Deflation Time (Seconds) 10 Treatment Duration (minutes) 45 Treatment Tolerance Good PT-OP-T Assessment and Plan Start: 10/28/22 09:19 Freq: Status: Active Protocol: Document 06/14/23 13:19 TOAN (Rec: 06/14/23 14:07 [facility] [id number]) Physical Therapy Assessment Goals Five Impairment compensatory movement patterns right UE Impairment overactivation of upper traps, postural dysfunction impacting right shoulder function Short Term Goal (STG) Patient will be able to self- correct posture and compensatory movements right shoulder with visual feedback of mirror STG Duration 05/23/23 Day Care Director Goal (LTG) Patient will be able to perform HEP and do functional movements right UE with improved posture, without compensatory movements for improved right shoulder function LTG Duration 06/22/23 Four Impairment lymphedema (lipidema-type) iram UE's, LEs, abdomen Short Term Goal (STG) Patient to be instructed in all aspects of lymphedema care to include skin care, manual lymphatic drainage, compression, lymphedema exercises STG Duration 06/20/23 Day Care Director Goal (LTG) Patient circumferential measurements dec and stabilized (no inc or dec greater than 1 cm over the course of 1 week) and patient to obtain appropriate compression garments. Patient to be independent with all aspects of self-management for lymphedema/lipidema LTG Duration 07/21/23 Three Impairment activity tolerance Impairment Quickdash UE disability index score60% Day Care Director Goal (LTG) Improve QuickDash score to no greater than 30% as measure of improved activity tolerance with right UE 12/30/22: decreased to 39% 02/18/23: 43% today, more sore after no PT for 1 week. 04/20/23: 40% LTG Duration 07/21/23 Two Impairment unable to reach overhead or behind her back with right shoulder Short Term Goal (STG) Patient will be able to reach use right UE to do her hair, and be able to pull pants up on right without increase in pain 12/30/22: goal progress 02/17/23: goal mostly met 04/06/23: goal met STG Duration goal met Day Care Director Goal (LTG) Patient will demonstrate full ROM with right shoulder to allow her to do all usual activities 04/20/23: goal progress LTG Duration 07/21/23 One Impairment pain right shoulder as high as 8/10 Short Term Goal (STG) decrease pain to no greater than 6/10 with usual activities 12/30/22: pain decreased to 5/10 02/17/23: goal met STG Duration goal met Day Care Director Goal (LTG) decrease pain to no greater than 3/10 with all usual activities 04/06/23: goal progress though variable ability, when feeling better patient with tendency to reach without thinking and reports inc in pain. Also, weight of arms from lymphedema appears to contribute to shoulder dysfunction; patient will be requesting order for lymphedema treatment from PCP 04/20/23: pain generally 3-5/10 , progress LTG Duration 07/21/23 Assessment Summary Assessment Patient to consult with [facility] about compression sleeves too short and with [employer] about the bolero style, given measurements to discuss size. Patient reports wasn't yet able to contact lymphedema center. Circumferential measurements stable at this time, continue to problem solve compression. Physical Therapy Plan Frequency and Duration Frequency of Treatment 2x/Week Duration of treatment (weeks) 12 Plan of Care Start Date 04/20/23 Plan of Care End Date 07/21/23 Therapeutic Interventions Therapeutic Interventions Aquatic Therapy,Home Exercise Program,Lymphedema Management, Manual Therapy,Patient/ Caregiver Education,Self-Care/ Home Management,Soft Tissue Mobilization,Taping, Therapeutic Activities, Therapeutic Exercises Modalities Cold Pack/Ice Massage,Electric Stimulation,Hot Packs, Infrared Therapy,Iontophoresis ,Ultrasound,Vasopneumatic Devices Next Visit Focus/Plan Next Note Type Treatment Note Next Visit Plan Continue lipolymphedema management for iram UE's, LE's and trunk. Instruct in use of home pump when receives. PT emailed Lidia sow about pump; have heard nothing
--- NOTE | 2023-06-17 14:56 | PT.OTN ---
Current Diagnoses Lymphedema, not elsewhere classified (06/17/23) Pain in right shoulder (06/17/23) Incomplete rotator cuff tear or rupture of right shoulder, not specified as traumatic (06/17/23) Superior glenoid labrum lesion of right shoulder, initial encounter (06/17/23) Physical Therapy Treatment Note PT-OP-A Visit Information Start: 10/28/22 09:19 Freq: Status: Active Protocol: Document 06/17/23 14:26 SAK (Rec: 06/17/23 14:56 [facility] [id number]) Out-Patient Physical Therapy Visit Information Visit Information Visit Type Treatment Note Visit Start Time 13:15 Visit Stop Time 14:45 Total Visit Minutes 90 Visit Number 48 Evaluation Information Evaluation Date 10/29/22 PT-OP-B Current Condition Start: 10/28/22 09:19 Freq: Status: Active Protocol: Document 03/03/23 09:48 SAK (Rec: 03/03/23 10:38 SAK [id number]) Current Condition History of Current Condition Onset Date 1 1/2 years Current Complaints right History of Current Condition gradual onset right shoulder pain unknown reason. Increases with trying to reach overhead, out to side, or behind her back; pain and tingling. If tries to sleep on back both arms go numb. Unable to wear compression sleeve left due to pain right shoulder; patient previously seen by this PT for right shoulder pain and felt at that time pain at least some due to overuse right UE. Goes back to the doctor after PT ( Clifford Diggs). 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 MRI right shoulder: incomplete RC tear, superior labral tear Prior Treatments and Tests Tylenol, ice, heat. Can't do UE ex at cardiac rehab, low tolerance for HEP previously instructed. Has TENS, but doesn't know how to use PT-OP-C Subjective Start: 10/28/22 09:19 Freq: Status: Active Protocol: Document 06/17/23 14:26 SAK (Rec: 06/17/23 14:56 [facility] [id number]) OP-PT Subjective Patient Comments Patient Comments Bolero sleeve should come next week for bilateral UE compression vs wearing 2 individual sleeves as has been doing past few months (doesn' t stay high enough on arms), hasn't heard back from [facility] yet. Wearing gucci or bike shorts and knee high compression stockings for LE and trunk compression consistently. Not sure she feels any reduction in any part of her body with lymphedema treatment. Back pain continues to be an issue, seeing pain specialist Dr. López 06/29/23. Trying to wear back brace but not sure if helping. PT-OP-E Functional Tests Start: 10/28/22 09:19 Freq: Status: Active Protocol: Document 10/29/22 09:50 SAK (Rec: 10/29/22 17:12 [facility] [id number]) Functional Tests Apley's Scratch Test Action 1- Left anterior shoulder Action 1- Right posterior shoulder Action 2- Left T2 Action 2- Right lateral neck Action 3- Left lateral hip Action 3- Right T7 PT-OP-H Neuro Start: 10/28/22 09:19 Freq: Status: Active Protocol: Document 10/29/22 09:50 SAK (Rec: 10/29/22 17:12 [facility] [id number]) Sensation Evaluation Gross Sensation Gross Sensation Left UE Impaired,Right UE Impaired Sensation Description Paresthesia Location Details Left Arm Light Touch Intact/Normal PT-OP-J Posture/Palpation/Skin Start: 10/28/22 09:19 Freq: Status: Active Protocol: Document 10/29/22 09:50 SAK (Rec: 10/29/22 17:12 [facility] [id number]) Posture Evaluation Position Sitting Head/C-Spine Posture Forward Head T-Spine Posture Increased Kyphosis L-Spine Posture Increased Lordosis Shoulder Posture (L) Rounded,(R) Rounded Scapula Posture (L) Protracted,(R) Protracted Arm Posture (L) Internally Rotated,(R) Internally Rotated Pelvis Posture Anteriorly Tilted Palpation Assessment Location RC insertion Palpation Findings Tenderness Palpation Details entire joint line painful to palpation PT-OP-K Range of Motion Start: 10/28/22 09:19 Freq: Status: Active Protocol: Document 05/21/23 10:14 SP (Rec: 05/21/23 10:53 SP [id number]) Shoulder Goniometric Range of Motion Shoulder Left Shoulder ROM WFL No Testing Position Sitting Flexion 138 Extension 45 Abduction 100 External Rotation at 0 degrees Abduction 80 Comments seated L shld AROM: FF improved de deg ABD improved 25 dedeg Ext: improved 35 dedeg ER: improved 25 de deg Right Testing Position Sitting Flexion 104 Abduction 95 External Rotation at 0 degrees Abduction 62 Internal Rotation Behind Back (text) right SI Comments seated AROM R shld: FF improved 14 de>119 deg post manual Abd: less 5 de deg ER: less 18 de deg IR: improved from R buttocks: right beltline/ SI, PT-OP-L Special Tests Start: 10/28/22 09:19 Freq: Status: Active Protocol: Document 10/29/22 09:50 SAK (Rec: 10/29/22 17:12 [facility] [id number]) Special Tests Shoulder Special Tests Lift-Off Rotator Cuff Test Results positive Elevation Impingement Test Results positive Drop Arm Rotator Cuff Test Results positve PT-OP-M Strength Start: 10/28/22 09:19 Freq: Status: Active Protocol: Document 10/29/22 09:50 SAK (Rec: 10/29/22 17:12 [facility] [id number]) Shoulder Strength Shoulder Manual Muscle Testing Left Flexion 4- Good- Extension 4- Good- Adduction 4 Good External Rotation 4- Good- Internal Rotation 4 Good PT-OP-N Lymphedema Start: 04/20/23 09:31 Freq: Status: Active Protocol: Document 06/17/23 14:26 SAK (Rec: 06/17/23 14:56 [facility] [id number]) Lymphedema Measurements Upper Extremity Circumference Measurements Left Affected MCP 19.5 cm Dorsum of Hand 22 cm Wrist 20 cm 5 cm From Wrist Crease 27.2 cm 10 cm From Wrist Crease 32 cm 15 cm From Wrist Crease 35.8 cm 20 cm From Wrist Crease 37.7 cm 25 cm From Wrist Crease 40.6 cm 30 cm From Wrist Crease 48 cm 35 cm From Wrist Crease 52.9 cm 40 cm From Wrist Crease 49.1 cm Elbow Joint 37.4 cm Right Affected MCP 19.1 cm Dorsum of Hand 18.9 cm Wrist 18 cm 5 cm From Wrist Crease 23.2 cm 10 cm From Wrist Crease 28 cm 15 cm From Wrist Crease 32.3 cm 20 cm From Wrist Crease 33.9 cm 25 cm From Wrist Crease 38.8 cm 30 cm From Wrist Crease 47 cm 35 cm From Wrist Crease 48.8 cm 40 cm From Wrist Crease 47.9 cm Elbow Joint 32.9 cm Axilla 46.9 cm Lower Extremity Circumference Measurements Right Affected MT Heads 23.2 cm Mid-foot 24.3 cm Medial Malleolus 26.5 cm 10 cm From Medial Malleolus 26 cm 20 cm From Medial Malleolus 40.5 cm 30 cm From Medial Malleolus 45 cm 40 cm From Medial Malleolus 54.6 cm 50 cm From Medial Malleolus 67.8 cm 60 cm From Medial Malleolus 70.5 cm 70 cm From Medial Malleolus 70 cm Knee Joint 49 cm Left Affected MT Heads 23.8 cm Mid-foot 24.7 cm Medial Malleolus 27.9 cm 10 cm From Medial Malleolus 25.6 cm 20 cm From Medial Malleolus 38.5 cm 30 cm From Medial Malleolus 44.2 cm 40 cm From Medial Malleolus 54 cm 50 cm From Medial Malleolus 66.5 cm 60 cm From Medial Malleolus 69.8 cm 70 cm From Medial Malleolus 79.6 cm Knee Joint 46 cm PT-OP-Q Treatments Start: 10/28/22 09:19 Freq: Status: Active Protocol: Document 06/17/23 14:26 [facility] (Rec: 06/17/23 14:56 [facility] [id number]) Lymphedema Treatment Manual Lymphatic Drainage Location for iram UE, LE, and trunkal edema Duration 60 Lymphedema Wrapping Other assisted with application of compression sleeves iram as patient unable to do on own Compression Garment Assessment Compression Garment Assessment Details Bolero garment should arrive next week Other Other UE and LE circumferential measurements taken PT-OP-R Modalities Start: 10/28/22 09:19 Freq: Status: Active Protocol: Document 06/17/23 14:26 [facility] (Rec: 06/17/23 14:56 [facility] [id number]) Compression Pump Treatment Treatment Location Right Leg Pressure Amount (mmHg) (mmHG) 47 Inflation Time (Seconds) 30 Deflation Time (Seconds) 10 Treatment Duration (minutes) 45 Treatment Tolerance Good Right Arm Pressure Amount (mmHg) (mmHG) 40 Inflation Time (Seconds) 30 Deflation Time (Seconds) 10 Treatment Duration (minutes) 45 Treatment Tolerance Good left LE Pressure Amount (mmHg) (mmHG) 47 Inflation Time (Seconds) 30 Deflation Time (Seconds) 10 Treatment Duration (minutes) 45 Treatment Tolerance Good Left Arm Pressure Amount (mmHg) (mmHG) 40 Inflation Time (Seconds) 30 Deflation Time (Seconds) 10 Treatment Duration (minutes) 45 Treatment Tolerance Good PT-OP-T Assessment and Plan Start: 10/28/22 09:19 Freq: Status: Active Protocol: Document 06/17/23 14:26 [facility] (Rec: 06/17/23 14:56 [facility] [id number]) Physical Therapy Assessment Goals Five Impairment compensatory movement patterns right UE Impairment overactivation of upper traps, postural dysfunction impacting right shoulder function Short Term Goal (STG) Patient will be able to self- correct posture and compensatory movements right shoulder with visual feedback of mirror STG Duration goal met Group Home Goal (LTG) Patient will be able to perform HEP and do functional movements right UE with improved posture, without compensatory movements for improved right shoulder function 05/29/23: goal mostly met though patient not able to don compression sleeves on her own due to pain, weight of UE's LTG Duration 06/20/23 Four Impairment lymphedema (lipidema-type) iram UE's, LEs, abdomen Short Term Goal (STG) Patient to be instructed in all aspects of lymphedema care to include skin care, manual lymphatic drainage, compression, lymphedema exercises 06/16/23: goal met STG Duration 06/20/23 Group Home Goal (LTG) Patient circumferential measurements dec and stabilized (no inc or dec greater than 1 cm over the course of 1 week) and patient to obtain appropriate compression garments. Patient to be independent with all aspects of self-management for lymphedema/lipidema 06/16/23: no significant decrease in circumferentialmeasurements. LTG Duration 07/21/23 Three Impairment activity tolerance Impairment Quickdash UE disability index score60% Group Home Goal (LTG) Improve QuickDash score to no greater than 30% as measure of improved activity tolerance with right UE 12/30/22: decreased to 39% 02/18/23: 43% today, more sore after no PT for 1 week. 04/20/23: 40% 05/29/23: LTG Duration 07/21/23 Two Impairment unable to reach overhead or behind her back with right shoulder Short Term Goal (STG) Patient will be able to reach use right UE to do her hair, and be able to pull pants up on right without increase in pain 12/30/22: goal progress 02/17/23: goal mostly met 04/06/23: goal met STG Duration goal met Group Home Goal (LTG) Patient will demonstrate full ROM with right shoulder to allow her to do all usual activities 04/20/23: goal progress LTG Duration 07/21/23 One Impairment pain right shoulder as high as 8/10 Short Term Goal (STG) decrease pain to no greater than 6/10 with usual activities 12/30/22: pain decreased to 5/10 02/17/23: goal met STG Duration goal met Group Home Goal (LTG) decrease pain to no greater than 3/10 with all usual activities 04/06/23: goal progress though variable ability, when feeling better patient with tendency to reach without thinking and reports inc in pain. Also, weight of arms from lymphedema appears to contribute to shoulder dysfunction; patient will be requesting order for lymphedema treatment from PCP 04/20/23: pain generally 3-5/10 , progress LTG Duration 07/21/23 Assessment Summary Assessment Despite starting conservative management for lipidema of bilateral UEs, LE's, and trunk since 04/20/23 patient circumferential measurements not showing significant reduction. Treatment has included skin care, manual lymphatic drainage, lymphedema exercises, and compression. She previously tried diuretic medication which was not helpful. She tolerates compression bandaging very poorly due to pain from lipidema but can wear compression garments. She is at high risk for complications of lipidema including cellulitis. Highly recommend use of sequential pneumatic pump for bilateral UE's, LE's and trunk to assist patient with self-managment and improve her edema and quality of life. Physical Therapy Plan Frequency and Duration Frequency of Treatment 2x/Week Duration of treatment (weeks) 12 Plan of Care Start Date 04/20/23 Plan of Care End Date 07/21/23 Therapeutic Interventions Therapeutic Interventions Aquatic Therapy,Home Exercise Program,Lymphedema Management, Manual Therapy,Patient/ Caregiver Education,Self-Care/ Home Management,Soft Tissue Mobilization,Taping, Therapeutic Activities, Therapeutic Exercises Modalities Cold Pack/Ice Massage,Electric Stimulation,Hot Packs, Infrared Therapy,Iontophoresis ,Ultrasound,Vasopneumatic Devices Next Visit Focus/Plan Next Note Type Treatment Note Next Visit Plan Continue lipolymphedema management for iram UE's, LE's and trunk. Assure good fit of new compression garments. Continue process for helping patient obtain compression pump for home use. Patient to continue trying to contact [facility] for further consult.
--- NOTE | 2023-06-24 14:35 | PT.OTN ---
Current Diagnoses Lymphedema, not elsewhere classified (06/24/23) Pain in right shoulder (06/24/23) Incomplete rotator cuff tear or rupture of right shoulder, not specified as traumatic (06/24/23) Superior glenoid labrum lesion of right shoulder, initial encounter (06/24/23) Physical Therapy Treatment Note PT-OP-A Visit Information Start: 10/28/22 09:19 Freq: Status: Active Protocol: Document 06/24/23 13:15 SAK (Rec: 06/24/23 14:33 [facility] [id number]) Out-Patient Physical Therapy Visit Information Visit Information Visit Type Treatment Note Visit Start Time 13:15 Visit Stop Time 14:45 Total Visit Minutes 90 Visit Number 49 Evaluation Information Evaluation Date 10/29/22 PT-OP-B Current Condition Start: 10/28/22 09:19 Freq: Status: Active Protocol: Document 03/03/23 09:48 SAK (Rec: 03/03/23 10:38 [facility] [id number]) Current Condition History of Current Condition Onset Date 1 1/2 years Current Complaints right History of Current Condition gradual onset right shoulder pain unknown reason. Increases with trying to reach overhead, out to side, or behind her back; pain and tingling. If tries to sleep on back both arms go numb. Unable to wear compression sleeve left due to pain right shoulder; patient previously seen by this PT for right shoulder pain and felt at that time pain at least some due to overuse right UE. Goes back to the doctor after PT ( Clifford Diggs). 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 Saw tobacco baler. MRI right shoulder: incomplete RC tear, superior labral tear Prior Treatments and Tests Tylenol, ice, heat. Can't do UE ex at cardiac rehab, low tolerance for HEP previously instructed. Has TENS, but doesn't know how to use PT-OP-C Subjective Start: 10/28/22 09:19 Freq: Status: Active Protocol: Document 06/24/23 13:15 SAK (Rec: 06/24/23 14:35 [facility]AK [id number]) OP-PT Subjective Patient Comments Patient Comments Received new compression sleeve, hasn't tried donning yet. Hasn't heard back from [place] [facility]. Consulted with [facility] regarding difficulty donning other sleeve, given cage, patient reports feeling issue not resolved adequately. PT-OP-E Functional Tests Start: 10/28/22 09:19 Freq: Status: Active Protocol: Document 10/29/22 09:50 SAK (Rec: 10/29/22 17:12 [facility] [id number]) Functional Tests Apley's Scratch Test Action 1- Left anterior shoulder Action 1- Right posterior shoulder Action 2- Left T2 Action 2- Right lateral neck Action 3- Left lateral hip Action 3- Right T7 PT-OP-H Neuro Start: 10/28/22 09:19 Freq: Status: Active Protocol: Document 10/29/22 09:50 SAK (Rec: 10/29/22 17:12 [facility] [id number]) Sensation Evaluation Gross Sensation Gross Sensation Left UE Impaired,Right UE Impaired Sensation Description Paresthesia Location Details Left Arm Light Touch Intact/Normal PT-OP-J Posture/Palpation/Skin Start: 10/28/22 09:19 Freq: Status: Active Protocol: Document 10/29/22 09:50 SAK (Rec: 10/29/22 17:12 [facility]AK [id number]) Posture Evaluation Position Sitting Head/C-Spine Posture Forward Head T-Spine Posture Increased Kyphosis L-Spine Posture Increased Lordosis Shoulder Posture (L) Rounded,(R) Rounded Scapula Posture (L) Protracted,(R) Protracted Arm Posture (L) Internally Rotated,(R) Internally Rotated Pelvis Posture Anteriorly Tilted Palpation Assessment Location RC insertion Palpation Findings Tenderness Palpation Details entire joint line painful to palpation PT-OP-K Range of Motion Start: 10/28/22 09:19 Freq: Status: Active Protocol: Document 05/21/23 10:14 SP (Rec: 05/21/23 10:53 SP [id number]) Shoulder Goniometric Range of Motion Shoulder Left Shoulder ROM WFL No Testing Position Sitting Flexion 138 Extension 45 Abduction 100 External Rotation at 0 degrees Abduction 80 Comments seated L shld AROM: FF improved de deg ABD improved 25 dedeg Ext: improved 35 dedeg ER: improved 25 de deg Right Testing Position Sitting Flexion 104 Abduction 95 External Rotation at 0 degrees Abduction 62 Internal Rotation Behind Back (text) right SI Comments seated AROM R shld: FF improved 14 de>119 deg post manual Abd: less 5 de deg ER: less 18 de deg IR: improved from R buttocks: right beltline/ SI, PT-OP-L Special Tests Start: 10/28/22 09:19 Freq: Status: Active Protocol: Document 10/29/22 09:50 SAK (Rec: 10/29/22 17:12 [facility] [id number]) Special Tests Shoulder Special Tests Lift-Off Rotator Cuff Test Results positive Elevation Impingement Test Results positive Drop Arm Rotator Cuff Test Results positve PT-OP-M Strength Start: 10/28/22 09:19 Freq: Status: Active Protocol: Document 10/29/22 09:50 [facility] (Rec: 10/29/22 17:12 [facility] [id number]) Shoulder Strength Shoulder Manual Muscle Testing Left Flexion 4- Good- Extension 4- Good- Adduction 4 Good External Rotation 4- Good- Internal Rotation 4 Good PT-OP-N Lymphedema Start: 04/20/23 09:31 Freq: Status: Active Protocol: Document 06/17/23 14:26 SAK (Rec: 06/17/23 14:56 [facility] [id number]) Lymphedema Measurements Upper Extremity Circumference Measurements Left Affected MCP 19.5 cm Dorsum of Hand 22 cm Wrist 20 cm 5 cm From Wrist Crease 27.2 cm 10 cm From Wrist Crease 32 cm 15 cm From Wrist Crease 35.8 cm 20 cm From Wrist Crease 37.7 cm 25 cm From Wrist Crease 40.6 cm 30 cm From Wrist Crease 48 cm 35 cm From Wrist Crease 52.9 cm 40 cm From Wrist Crease 49.1 cm Elbow Joint 37.4 cm Right Affected MCP 19.1 cm Dorsum of Hand 18.9 cm Wrist 18 cm 5 cm From Wrist Crease 23.2 cm 10 cm From Wrist Crease 28 cm 15 cm From Wrist Crease 32.3 cm 20 cm From Wrist Crease 33.9 cm 25 cm From Wrist Crease 38.8 cm 30 cm From Wrist Crease 47 cm 35 cm From Wrist Crease 48.8 cm 40 cm From Wrist Crease 47.9 cm Elbow Joint 32.9 cm Axilla 46.9 cm Lower Extremity Circumference Measurements Right Affected MT Heads 23.2 cm Mid-foot 24.3 cm Medial Malleolus 26.5 cm 10 cm From Medial Malleolus 26 cm 20 cm From Medial Malleolus 40.5 cm 30 cm From Medial Malleolus 45 cm 40 cm From Medial Malleolus 54.6 cm 50 cm From Medial Malleolus 67.8 cm 60 cm From Medial Malleolus 70.5 cm 70 cm From Medial Malleolus 70 cm Knee Joint 49 cm Left Affected MT Heads 23.8 cm Mid-foot 24.7 cm Medial Malleolus 27.9 cm 10 cm From Medial Malleolus 25.6 cm 20 cm From Medial Malleolus 38.5 cm 30 cm From Medial Malleolus 44.2 cm 40 cm From Medial Malleolus 54 cm 50 cm From Medial Malleolus 66.5 cm 60 cm From Medial Malleolus 69.8 cm 70 cm From Medial Malleolus 79.6 cm Knee Joint 46 cm PT-OP-Q Treatments Start: 10/28/22 09:19 Freq: Status: Active Protocol: Document 06/24/23 13:15 [facility] (Rec: 06/24/23 14:33 [facility] [id number]) Lymphedema Treatment Manual Lymphatic Drainage Location for iram LE, and trunkal edema Duration 60 Comments none to UE's due to donning new compression sleeve, left on Lymphedema Wrapping Other assisted with application new compression sleeve, encouraged use of gloves PT-OP-R Modalities Start: 10/28/22 09:19 Freq: Status: Active Protocol: Document 06/24/23 13:15 [facility] (Rec: 06/24/23 14:33 [facility] [id number]) Compression Pump Treatment Treatment Location Right Leg Pressure Amount (mmHg) (mmHG) 47 Inflation Time (Seconds) 30 Deflation Time (Seconds) 10 Treatment Duration (minutes) 45 Treatment Tolerance Good left LE Pressure Amount (mmHg) (mmHG) 47 Inflation Time (Seconds) 30 Deflation Time (Seconds) 10 Treatment Duration (minutes) 45 Treatment Tolerance Good PT-OP-T Assessment and Plan Start: 10/28/22 09:19 Freq: Status: Active Protocol: Document 06/24/23 13:15 [facility] (Rec: 06/24/23 14:33 [facility] [id number]) Physical Therapy Assessment Goals Five Impairment compensatory movement patterns right UE Impairment overactivation of upper traps, postural dysfunction impacting right shoulder function Short Term Goal (STG) Patient will be able to self- correct posture and compensatory movements right shoulder with visual feedback of mirror STG Duration goal met [employer] Operator Goal (LTG) Patient will be able to perform HEP and do functional movements right UE with improved posture, without compensatory movements for improved right shoulder function 05/29/23: goal mostly met though patient not able to don compression sleeves on her own due to pain, weight of UE's LTG Duration 06/20/23 Four Impairment lymphedema (lipidema-type) iram UE's, LEs, abdomen Short Term Goal (STG) Patient to be instructed in all aspects of lymphedema care to include skin care, manual lymphatic drainage, compression, lymphedema exercises 06/16/23: goal met STG Duration 06/20/23 Assisted Goal (LTG) Patient circumferential measurements dec and stabilized (no inc or dec greater than 1 cm over the course of 1 week) and patient to obtain appropriate compression garments. Patient to be independent with all aspects of self-management for lymphedema/lipidema 06/16/23: no significant decrease in circumferentialmeasurements. LTG Duration 07/21/23 Three Impairment activity tolerance Impairment Quickdash UE disability index score60% Assisted Goal (LTG) Improve QuickDash score to no greater than 30% as measure of improved activity tolerance with right UE 12/30/22: decreased to 39% 02/18/23: 43% today, more sore after no PT for 1 week. 04/20/23: 40% 05/29/23: LTG Duration 07/21/23 Two Impairment unable to reach overhead or behind her back with right shoulder Short Term Goal (STG) Patient will be able to reach use right UE to do her hair, and be able to pull pants up on right without increase in pain 12/30/22: goal progress 02/17/23: goal mostly met 04/06/23: goal met STG Duration goal met Assisted Goal (LTG) Patient will demonstrate full ROM with right shoulder to allow her to do all usual activities 04/20/23: goal progress LTG Duration 07/21/23 One Impairment pain right shoulder as high as 8/10 Short Term Goal (STG) decrease pain to no greater than 6/10 with usual activities 12/30/22: pain decreased to 5/10 02/17/23: goal met STG Duration goal met Assisted Goal (LTG) decrease pain to no greater than 3/10 with all usual activities 04/06/23: goal progress though variable ability, when feeling better patient with tendency to reach without thinking and reports inc in pain. Also, weight of arms from lymphedema appears to contribute to shoulder dysfunction; patient will be requesting order for lymphedema treatment from PCP 04/20/23: pain generally 3-5/10 , progress LTG Duration 07/21/23 Assessment Summary Assessment Assisted patient in donning Solidea iram UE compression sleeve (bolero-type), good fit with containment of upper arm beter than other sleeve, some difficulty donning but easier than other compression sleeve . Consulted with [facility] regarding most recent sleeve poor fit but not resolved. Physical Therapy Plan Frequency and Duration Frequency of Treatment 2x/Week Duration of treatment (weeks) 12 Plan of Care Start Date 04/20/23 Plan of Care End Date 07/21/23 Therapeutic Interventions Therapeutic Interventions Aquatic Therapy,Home Exercise Program,Lymphedema Management, Manual Therapy,Patient/ Caregiver Education,Self-Care/ Home Management,Soft Tissue Mobilization,Taping, Therapeutic Activities, Therapeutic Exercises Modalities Cold Pack/Ice Massage,Electric Stimulation,Hot Packs, Infrared Therapy,Iontophoresis ,Ultrasound,Vasopneumatic Devices Next Visit Focus/Plan Next Note Type Treatment Note Next Visit Plan Circumferential measurements, assess response to new compression sleeve, assess need for any further PT for lipidema. Pt. still working to contact [facility] for consultation. Contacted Lidia Marshall regarding pump; per patient and PT conversation requested pump for UE/chest due to that area being most problematic, insurance won't pay for both UE and LE.
--- NOTE | 2023-06-28 13:11 | PT.OPPN ---
Current Diagnoses Lymphedema, not elsewhere classified (06/28/23) Pain in right shoulder (06/28/23) Incomplete rotator cuff tear or rupture of right shoulder, not specified as traumatic (06/28/23) Superior glenoid labrum lesion of right shoulder, initial encounter (06/28/23) Physical Therapy Progress Note PT-OP-A Visit Information Start: 10/28/22 09:19 Freq: Status: Active Protocol: Document 06/28/23 13:11 SAK (Rec: 06/28/23 13:17 [facility] [id number]) Out-Patient Physical Therapy Visit Information Visit Information Visit Type Treatment Note Visit Start Time 13:15 Visit Stop Time 14:45 Total Visit Minutes 90 Visit Number 49 Evaluation Information Evaluation Date 10/29/22 PT-OP-B Current Condition Start: 10/28/22 09:19 Freq: Status: Active Protocol: Document 03/03/23 09:48 SAK (Rec: 03/03/23 10:38 SAK [id number]) Current Condition History of Current Condition Onset Date 1 1/2 years Current Complaints right History of Current Condition gradual onset right shoulder pain unknown reason. Increases with trying to reach overhead, out to side, or behind her back; pain and tingling. If tries to sleep on back both arms go numb. Unable to wear compression sleeve left due to pain right shoulder; patient previously seen by this PT for right shoulder pain and felt at that time pain at least some due to overuse right UE. Goes back to the doctor after PT ( Clifford Diggs). 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 Saw assistant secretary. MRI right shoulder: incomplete RC tear, superior labral tear Prior Treatments and Tests Tylenol, ice, heat. Can't do UE ex at cardiac rehab, low tolerance for HEP previously instructed. Has TENS, but doesn't know how to use PT-OP-C Subjective Start: 10/28/22 09:19 Freq: Status: Active Protocol: Document 06/28/23 13:11 SAK (Rec: 06/28/23 14:50 [facility] [id number]) OP-PT Subjective Patient Comments Patient Comments Patient had eye surgery on Wednesday, hasn't been very consistent with compression since then. Sees chest painting and sealing supervisor tomorrow for her back. Plans to go to the pool today. PT-OP-E Functional Tests Start: 10/28/22 09:19 Freq: Status: Active Protocol: Document 10/29/22 09:50 [facility] (Rec: 10/29/22 17:12 [facility] [id number]) Functional Tests Apley's Scratch Test Action 1: The subject is instructed to touch the opposite shoulder with his/her hand. This motion checks Glenohumeral adduction, internal rotation , horizontal adduction and scapular protraction Action 2: The subject is instructed to place his/her arm overhead and reach behind the neck to touch his/her upper back. This motion checks Glenohumeral abduction, external rotation and scapular upward rotation and elevation. Action 3: The subject puts his/her hand on the lower back and reaches upward as far as possible. This motion checks glenohumeral adduction, internal rotation and scapular retraction with downward rotation Action 1- Left anterior shoulder Action 1- Right posterior shoulder Action 2- Left T2 Action 2- Right lateral neck Action 3- Left lateral hip Action 3- Right T7 PT-OP-H Neuro Start: 10/28/22 09:19 Freq: Status: Active Protocol: Document 10/29/22 09:50 [facility] (Rec: 10/29/22 17:12 [facility] [id number]) Sensation Evaluation Gross Sensation Gross Sensation Left UE Impaired,Right UE Impaired Sensation Description Paresthesia Location Details Left Arm Light Touch Intact/Normal PT-OP-J Posture/Palpation/Skin Start: 10/28/22 09:19 Freq: Status: Active Protocol: Document 10/29/22 09:50 [facility] (Rec: 10/29/22 17:12 [facility] [id number]) Posture Evaluation Position Sitting Head/C-Spine Posture Forward Head T-Spine Posture Increased Kyphosis L-Spine Posture Increased Lordosis Shoulder Posture (L) Rounded,(R) Rounded Scapula Posture (L) Protracted,(R) Protracted Arm Posture (L) Internally Rotated,(R) Internally Rotated Pelvis Posture Anteriorly Tilted Palpation Assessment Location RC insertion Palpation Findings Tenderness Palpation Details entire joint line painful to palpation PT-OP-K Range of Motion Start: 10/28/22 09:19 Freq: Status: Active Protocol: Document 05/21/23 10:14 SP (Rec: 05/21/23 10:53 SP [id number]) Shoulder Goniometric Range of Motion Shoulder Measured in Degrees Left Shoulder ROM WFL No Testing Position Sitting Flexion 138 Extension 45 Abduction 100 External Rotation at 0 degrees Abduction 80 Comments seated L shld AROM: FF improved de deg ABD improved 25 dedeg Ext: improved 35 dedeg ER: improved 25 de deg Right Testing Position Sitting Flexion 104 Abduction 95 External Rotation at 0 degrees Abduction 62 Internal Rotation Behind Back (text) right SI Comments seated AROM R shld: FF improved 14 de>119 deg post manual Abd: less 5 de deg ER: less 18 de deg IR: improved from R buttocks: right beltline/ SI, PT-OP-L Special Tests Start: 10/28/22 09:19 Freq: Status: Active Protocol: Document 10/29/22 09:50 [facility] (Rec: 10/29/22 17:12 [facility] [id number]) Special Tests Shoulder Special Tests Lift-Off Rotator Cuff Test Results positive Elevation Impingement Test Results positive Drop Arm Rotator Cuff Test Results positve PT-OP-M Strength Start: 10/28/22 09:19 Freq: Status: Active Protocol: Document 10/29/22 09:50 [facility] (Rec: 10/29/22 17:12 [facility] [id number]) Shoulder Strength Shoulder Manual Muscle Testing Left Flexion 4- Good- Extension 4- Good- Adduction 4 Good External Rotation 4- Good- Internal Rotation 4 Good PT-OP-N Lymphedema Start: 04/20/23 09:31 Freq: Status: Active Protocol: Document 06/28/23 13:11 [facility] (Rec: 06/28/23 13:56 [facility] [id number]) Lymphedema Measurements Upper Extremity Circumference Measurements Left Affected MCP 19.8 cm Dorsum of Hand 22.6 cm Wrist 20 cm 5 cm From Wrist Crease 28.6 cm 10 cm From Wrist Crease 33 cm 15 cm From Wrist Crease 35.3 cm 20 cm From Wrist Crease 36.2 cm 25 cm From Wrist Crease 41.35 cm 30 cm From Wrist Crease 50.6 cm 35 cm From Wrist Crease 51.4 cm 40 cm From Wrist Crease 50 cm Elbow Joint 35.7 cm Right Affected MCP 19 cm Dorsum of Hand 20.3 cm Wrist 18 cm 5 cm From Wrist Crease 23.3 cm 10 cm From Wrist Crease 29.4 cm 15 cm From Wrist Crease 32.4 cm 20 cm From Wrist Crease 33.4 cm 25 cm From Wrist Crease 36.8 cm 30 cm From Wrist Crease 46.2 cm 35 cm From Wrist Crease 50.3 cm 40 cm From Wrist Crease 46 cm Elbow Joint 33 cm Axilla 52 cm Lower Extremity Circumference Measurements Right Affected MT Heads 23.2 cm Mid-foot 23.5 cm Medial Malleolus 26.7 cm 10 cm From Medial Malleolus 26.6 cm 20 cm From Medial Malleolus 39.5 cm 30 cm From Medial Malleolus 45.5 cm 40 cm From Medial Malleolus 54 cm 50 cm From Medial Malleolus 65.6 cm 60 cm From Medial Malleolus 69.5 cm 70 cm From Medial Malleolus 72 cm Knee Joint 52 cm Left Affected MT Heads 22.4 cm Mid-foot 24 cm Medial Malleolus 27.9 cm 10 cm From Medial Malleolus 26.9 cm 20 cm From Medial Malleolus 38.5 cm 30 cm From Medial Malleolus 44.8 cm 40 cm From Medial Malleolus 53.4 cm 50 cm From Medial Malleolus 66.4 cm 60 cm From Medial Malleolus 72.4 cm 70 cm From Medial Malleolus 75.6 cm Knee Joint 46 cm PT-OP-T Assessment and Plan Start: 10/28/22 09:19 Freq: Status: Active Protocol: Document 06/28/23 13:11 [facility] (Rec: 06/28/23 13:17 [facility] [id number]) Physical Therapy Assessment Goals Five Impairment compensatory movement patterns right UE Impairment overactivation of upper traps, postural dysfunction impacting right shoulder function Short Term Goal (STG) Patient will be able to self- correct posture and compensatory movements right shoulder with visual feedback of mirror STG Duration goal met College Administrator Goal (LTG) Patient will be able to perform HEP and do functional movements right UE with improved posture, without compensatory movements for improved right shoulder function 05/29/23: goal mostly met though patient not able to don compression sleeves on her own due to pain, weight of UE's LTG Duration 06/20/23 Four Impairment lymphedema (lipidema-type) iram UE's, LEs, abdomen Short Term Goal (STG) Patient to be instructed in all aspects of lymphedema care to include skin care, manual lymphatic drainage, compression, lymphedema exercises 06/16/23: goal met STG Duration 06/20/23 Longterm Goal (LTG) Patient circumferential measurements dec and stabilized (no inc or dec greater than 1 cm over the course of 1 week) and patient to obtain appropriate compression garments. Patient to be independent with all aspects of self-management for lymphedema/lipidema 06/16/23: no significant decrease in circumferentialmeasurements. LTG Duration 07/21/23 Three Impairment activity tolerance Impairment Quickdash UE disability index score60% Longterm Goal (LTG) Improve QuickDash score to no greater than 30% as measure of improved activity tolerance with right UE 12/30/22: decreased to 39% 02/18/23: 43% today, more sore after no PT for 1 week. 04/20/23: 40% 05/29/23: LTG Duration 07/21/23 Two Impairment unable to reach overhead or behind her back with right shoulder Short Term Goal (STG) Patient will be able to reach use right UE to do her hair, and be able to pull pants up on right without increase in pain 12/30/22: goal progress 02/17/23: goal mostly met 04/06/23: goal met STG Duration goal met College Administrator Goal (LTG) Patient will demonstrate full ROM with right shoulder to allow her to do all usual activities 04/20/23: goal progress LTG Duration 07/21/23 One Impairment pain right shoulder as high as 8/10 Short Term Goal (STG) decrease pain to no greater than 6/10 with usual activities 12/30/22: pain decreased to 5/10 02/17/23: goal met STG Duration goal met College Administrator Goal (LTG) decrease pain to no greater than 3/10 with all usual activities 04/06/23: goal progress though variable ability, when feeling better patient with tendency to reach without thinking and reports inc in pain. Also, weight of arms from lymphedema appears to contribute to shoulder dysfunction; patient will be requesting order for lymphedema treatment from PCP 04/20/23: pain generally 3-5/10 , progress LTG Duration 07/21/23 Assessment Summary Assessment circumferential measurements variable, compression not as consistent due to eye surgeryon Wednesday. Patient going to pool today to get information about aquatic exercise. Awaiting return call about consult with [place] [facility]. Seeing chest painting and sealing supervisor tomorrow. Physical Therapy Plan Frequency and Duration Frequency of Treatment 2x/Week Duration of treatment (weeks) 12 Plan of Care Start Date 04/20/23 Plan of Care End Date 07/21/23 Therapeutic Interventions Therapeutic Interventions Aquatic Therapy,Home Exercise Program,Lymphedema Management, Manual Therapy,Patient/ Caregiver Education,Self-Care/ Home Management,Soft Tissue Mobilization,Taping, Therapeutic Activities, Therapeutic Exercises Modalities Cold Pack/Ice Massage,Electric Stimulation,Hot Packs, Infrared Therapy,Iontophoresis ,Ultrasound,Vasopneumatic Devices Next Visit Focus/Plan Next Note Type Treatment Note Next Visit Plan Circumferential measurements, further pt ed about need for consistent compression, continue lymphedema management .
--- NOTE | 2023-06-28 14:49 | PT.OTN ---
Current Diagnoses Lymphedema, not elsewhere classified (06/28/23) Pain in right shoulder (06/28/23) Incomplete rotator cuff tear or rupture of right shoulder, not specified as traumatic (06/28/23) Superior glenoid labrum lesion of right shoulder, initial encounter (06/28/23) Physical Therapy Treatment Note PT-OP-A Visit Information Start: 10/28/22 09:19 Freq: Status: Active Protocol: Document 06/28/23 13:11 SAK (Rec: 06/28/23 13:17 [facility] [id number]) Out-Patient Physical Therapy Visit Information Visit Information Visit Type Treatment Note Visit Start Time 13:15 Visit Stop Time 14:45 Total Visit Minutes 90 Visit Number 49 Evaluation Information Evaluation Date 10/29/22 PT-OP-B Current Condition Start: 10/28/22 09:19 Freq: Status: Active Protocol: Document 03/03/23 09:48 SAK (Rec: 03/03/23 10:38 SAK [id number]) Current Condition History of Current Condition Onset Date 1 1/2 years Current Complaints right History of Current Condition gradual onset right shoulder pain unknown reason. Increases with trying to reach overhead, out to side, or behind her back; pain and tingling. If tries to sleep on back both arms go numb. Unable to wear compression sleeve left due to pain right shoulder; patient previously seen by this PT for right shoulder pain and felt at that time pain at least some due to overuse right UE. Goes back to the doctor after PT ( Clifford Diggs). 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 Saw production posting clerk. MRI right shoulder: incomplete RC tear, superior labral tear Prior Treatments and Tests Tylenol, ice, heat. Can't do UE ex at cardiac rehab, low tolerance for HEP previously instructed. Has TENS, but doesn't know how to use PT-OP-C Subjective Start: 10/28/22 09:19 Freq: Status: Active Protocol: Document 06/24/23 13:15 SAK (Rec: 06/24/23 14:35 [facility] [id number]) OP-PT Subjective Patient Comments Patient Comments Received new compression sleeve, hasn't tried donning yet. Hasn't heard back from [facility]. Consulted with [facility] regarding difficulty donning other sleeve, given cage, patient reports feeling issue not resolved adequately. PT-OP-E Functional Tests Start: 10/28/22 09:19 Freq: Status: Active Protocol: Document 10/29/22 09:50 SAK (Rec: 10/29/22 17:12 SAK [id number]) Functional Tests Apley's Scratch Test Action 1- Left anterior shoulder Action 1- Right posterior shoulder Action 2- Left T2 Action 2- Right lateral neck Action 3- Left lateral hip Action 3- Right T7 PT-OP-H Neuro Start: 10/28/22 09:19 Freq: Status: Active Protocol: Document 10/29/22 09:50 SAK (Rec: 10/29/22 17:12 SAK [id number]) Sensation Evaluation Gross Sensation Gross Sensation Left UE Impaired,Right UE Impaired Sensation Description Paresthesia Location Details Left Arm Light Touch Intact/Normal PT-OP-J Posture/Palpation/Skin Start: 10/28/22 09:19 Freq: Status: Active Protocol: Document 10/29/22 09:50 SAK (Rec: 10/29/22 17:12 SAK [id number]) Posture Evaluation Position Sitting Head/C-Spine Posture Forward Head T-Spine Posture Increased Kyphosis L-Spine Posture Increased Lordosis Shoulder Posture (L) Rounded,(R) Rounded Scapula Posture (L) Protracted,(R) Protracted Arm Posture (L) Internally Rotated,(R) Internally Rotated Pelvis Posture Anteriorly Tilted Palpation Assessment Location RC insertion Palpation Findings Tenderness Palpation Details entire joint line painful to palpation PT-OP-K Range of Motion Start: 10/28/22 09:19 Freq: Status: Active Protocol: Document 05/21/23 10:14 SP (Rec: 05/21/23 10:53 SP [id number]) Shoulder Goniometric Range of Motion Shoulder Left Shoulder ROM WFL No Testing Position Sitting Flexion 138 Extension 45 Abduction 100 External Rotation at 0 degrees Abduction 80 Comments seated L shld AROM: FF improved de deg ABD improved 25 dedeg Ext: improved 35 dedeg ER: improved 25 de deg Right Testing Position Sitting Flexion 104 Abduction 95 External Rotation at 0 degrees Abduction 62 Internal Rotation Behind Back (text) right SI Comments seated AROM R shld: FF improved 14 de>119 deg post manual Abd: less 5 de deg ER: less 18 de deg IR: improved from R buttocks: right beltline/ SI, PT-OP-L Special Tests Start: 10/28/22 09:19 Freq: Status: Active Protocol: Document 10/29/22 09:50 SAK (Rec: 10/29/22 17:12 [facility] [id number]) Special Tests Shoulder Special Tests Lift-Off Rotator Cuff Test Results positive Elevation Impingement Test Results positive Drop Arm Rotator Cuff Test Results positve PT-OP-M Strength Start: 10/28/22 09:19 Freq: Status: Active Protocol: Document 10/29/22 09:50 SAK (Rec: 10/29/22 17:12 [facility] [id number]) Shoulder Strength Shoulder Manual Muscle Testing Left Flexion 4- Good- Extension 4- Good- Adduction 4 Good External Rotation 4- Good- Internal Rotation 4 Good PT-OP-N Lymphedema Start: 04/20/23 09:31 Freq: Status: Active Protocol: Document 06/28/23 13:11 SAK (Rec: 06/28/23 13:56 [facility] [id number]) Lymphedema Measurements Upper Extremity Circumference Measurements Left Affected MCP 19.8 cm Dorsum of Hand 22.6 cm Wrist 20 cm 5 cm From Wrist Crease 28.6 cm 10 cm From Wrist Crease 33 cm 15 cm From Wrist Crease 35.3 cm 20 cm From Wrist Crease 36.2 cm 25 cm From Wrist Crease 41.35 cm 30 cm From Wrist Crease 50.6 cm 35 cm From Wrist Crease 51.4 cm 40 cm From Wrist Crease 50 cm Elbow Joint 35.7 cm Right Affected MCP 19 cm Dorsum of Hand 20.3 cm Wrist 18 cm 5 cm From Wrist Crease 23.3 cm 10 cm From Wrist Crease 29.4 cm 15 cm From Wrist Crease 32.4 cm 20 cm From Wrist Crease 33.4 cm 25 cm From Wrist Crease 36.8 cm 30 cm From Wrist Crease 46.2 cm 35 cm From Wrist Crease 50.3 cm 40 cm From Wrist Crease 46 cm Elbow Joint 33 cm Axilla 52 cm Lower Extremity Circumference Measurements Right Affected MT Heads 23.2 cm Mid-foot 23.5 cm Medial Malleolus 26.7 cm 10 cm From Medial Malleolus 26.6 cm 20 cm From Medial Malleolus 39.5 cm 30 cm From Medial Malleolus 45.5 cm 40 cm From Medial Malleolus 54 cm 50 cm From Medial Malleolus 65.6 cm 60 cm From Medial Malleolus 69.5 cm 70 cm From Medial Malleolus 72 cm Knee Joint 52 cm Left Affected MT Heads 22.4 cm Mid-foot 24 cm Medial Malleolus 27.9 cm 10 cm From Medial Malleolus 26.9 cm 20 cm From Medial Malleolus 38.5 cm 30 cm From Medial Malleolus 44.8 cm 40 cm From Medial Malleolus 53.4 cm 50 cm From Medial Malleolus 66.4 cm 60 cm From Medial Malleolus 72.4 cm 70 cm From Medial Malleolus 75.6 cm Knee Joint 46 cm PT-OP-Q Treatments Start: 10/28/22 09:19 Freq: Status: Active Protocol: Document 06/28/23 13:11 [facility] (Rec: 06/28/23 13:17 [facility] [id number]) Lymphedema Treatment Manual Lymphatic Drainage Location for iram LE, and trunkal edema Duration 60 Comments none to UE's due to donning new compression sleeve, left on PT-OP-R Modalities Start: 10/28/22 09:19 Freq: Status: Active Protocol: Document 06/24/23 13:15 [facility] (Rec: 06/24/23 14:33 [facility] [id number]) Compression Pump Treatment Treatment Location Right Leg Pressure Amount (mmHg) (mmHG) 47 Inflation Time (Seconds) 30 Deflation Time (Seconds) 10 Treatment Duration (minutes) 45 Treatment Tolerance Good left LE Pressure Amount (mmHg) (mmHG) 47 Inflation Time (Seconds) 30 Deflation Time (Seconds) 10 Treatment Duration (minutes) 45 Treatment Tolerance Good PT-OP-T Assessment and Plan Start: 10/28/22 09:19 Freq: Status: Active Protocol: Document 06/28/23 13:11 [facility] (Rec: 06/28/23 13:17 [facility] [id number]) Physical Therapy Assessment Goals Five Impairment compensatory movement patterns right UE Impairment overactivation of upper traps, postural dysfunction impacting right shoulder function Short Term Goal (STG) Patient will be able to self- correct posture and compensatory movements right shoulder with visual feedback of mirror STG Duration goal met Half-Way Goal (LTG) Patient will be able to perform HEP and do functional movements right UE with improved posture, without compensatory movements for improved right shoulder function 05/29/23: goal mostly met though patient not able to don compression sleeves on her own due to pain, weight of UE's LTG Duration 06/20/23 Four Impairment lymphedema (lipidema-type) iram UE's, LEs, abdomen Short Term Goal (STG) Patient to be instructed in all aspects of lymphedema care to include skin care, manual lymphatic drainage, compression, lymphedema exercises 06/16/23: goal met STG Duration 06/20/23 Half-Way Goal (LTG) Patient circumferential measurements dec and stabilized (no inc or dec greater than 1 cm over the course of 1 week) and patient to obtain appropriate compression garments. Patient to be independent with all aspects of self-management for lymphedema/lipidema 06/16/23: no significant decrease in circumferentialmeasurements. LTG Duration 07/21/23 Three Impairment activity tolerance Impairment Quickdash UE disability index score60% Critical Care Transport Nurse Goal (LTG) Improve QuickDash score to no greater than 30% as measure of improved activity tolerance with right UE 12/30/22: decreased to 39% 02/18/23: 43% today, more sore after no PT for 1 week. 04/20/23: 40% 05/29/23: LTG Duration 07/21/23 Two Impairment unable to reach overhead or behind her back with right shoulder Short Term Goal (STG) Patient will be able to reach use right UE to do her hair, and be able to pull pants up on right without increase in pain 12/30/22: goal progress 02/17/23: goal mostly met 04/06/23: goal met STG Duration goal met Half-Way Goal (LTG) Patient will demonstrate full ROM with right shoulder to allow her to do all usual activities 04/20/23: goal progress LTG Duration 07/21/23 One Impairment pain right shoulder as high as 8/10 Short Term Goal (STG) decrease pain to no greater than 6/10 with usual activities 12/30/22: pain decreased to 5/10 02/17/23: goal met STG Duration goal met Half-Way Goal (LTG) decrease pain to no greater than 3/10 with all usual activities 04/06/23: goal progress though variable ability, when feeling better patient with tendency to reach without thinking and reports inc in pain. Also, weight of arms from lymphedema appears to contribute to shoulder dysfunction; patient will be requesting order for lymphedema treatment from PCP 04/20/23: pain generally 3-5/10 , progress LTG Duration 07/21/23 Assessment Summary Assessment circumferential measurements variable, compression not as consistent due to eye surgeryon Wednesday. Patient going to pool today to get information about aquatic exercise. Awaiting return call about consult with [facility]. Seeing paint roller covers supervisor tomorrow. Physical Therapy Plan Frequency and Duration Frequency of Treatment 2x/Week Duration of treatment (weeks) 12 Plan of Care Start Date 04/20/23 Plan of Care End Date 07/21/23 Therapeutic Interventions Therapeutic Interventions Aquatic Therapy,Home Exercise Program,Lymphedema Management, Manual Therapy,Patient/ Caregiver Education,Self-Care/ Home Management,Soft Tissue Mobilization,Taping, Therapeutic Activities, Therapeutic Exercises Modalities Cold Pack/Ice Massage,Electric Stimulation,Hot Packs, Infrared Therapy,Iontophoresis ,Ultrasound,Vasopneumatic Devices Next Visit Focus/Plan Next Note Type Treatment Note Next Visit Plan Circumferential measurements, further pt ed about need for consistent compression, continue lymphedema management .
--- NOTE | 2023-07-01 14:41 | PT.OTN ---
Current Diagnoses Lymphedema, not elsewhere classified (07/01/23) Pain in right shoulder (07/01/23) Incomplete rotator cuff tear or rupture of right shoulder, not specified as traumatic (07/01/23) Superior glenoid labrum lesion of right shoulder, initial encounter (07/01/23) Physical Therapy Treatment Note PT-OP-A Visit Information Start: 10/28/22 09:19 Freq: Status: Active Protocol: Document 07/01/23 13:12 SAK (Rec: 07/01/23 13:54 [facility] [id number]) Out-Patient Physical Therapy Visit Information Visit Information Visit Type Treatment Note Visit Start Time 13:15 Visit Stop Time 14:45 Total Visit Minutes 85 Visit Number 51 Evaluation Information Evaluation Date 10/29/22 PT-OP-B Current Condition Start: 10/28/22 09:19 Freq: Status: Active Protocol: Document 03/03/23 09:48 SAK (Rec: 03/03/23 10:38 SAK [id number]) Current Condition History of Current Condition Onset Date 1 1/2 years Current Complaints right History of Current Condition gradual onset right shoulder pain unknown reason. Increases with trying to reach overhead, out to side, or behind her back; pain and tingling. If tries to sleep on back both arms go numb. Unable to wear compression sleeve left due to pain right shoulder; patient previously seen by this PT for right shoulder pain and felt at that time pain at least some due to overuse right UE. Goes back to the doctor after PT ( Clifford Diggs). 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 Saw brand planner. MRI right shoulder: incomplete RC tear, superior labral tear Prior Treatments and Tests Tylenol, ice, heat. Can't do UE ex at cardiac rehab, low tolerance for HEP previously instructed. Has TENS, but doesn't know how to use PT-OP-C Subjective Start: 10/28/22 09:19 Freq: Status: Active Protocol: Document 07/01/23 13:12 SAK (Rec: 07/01/23 13:54 [facility] [id number]) OP-PT Subjective Patient Comments Patient Comments Saw Dr. López for LBP, going to have MRI, likely injections , LBP persists. Went to pool 2x/ this week, felt good on LBP and lipidema pain and swelling PT-OP-E Functional Tests Start: 10/28/22 09:19 Freq: Status: Active Protocol: Document 10/29/22 09:50 SAK (Rec: 10/29/22 17:12 [facility] [id number]) Functional Tests Apley's Scratch Test Action 1- Left anterior shoulder Action 1- Right posterior shoulder Action 2- Left T2 Action 2- Right lateral neck Action 3- Left lateral hip Action 3- Right T7 PT-OP-H Neuro Start: 10/28/22 09:19 Freq: Status: Active Protocol: Document 10/29/22 09:50 SAK (Rec: 10/29/22 17:12 [facility] [id number]) Sensation Evaluation Gross Sensation Gross Sensation Left UE Impaired,Right UE Impaired Sensation Description Paresthesia Location Details Left Arm Light Touch Intact/Normal PT-OP-J Posture/Palpation/Skin Start: 10/28/22 09:19 Freq: Status: Active Protocol: Document 10/29/22 09:50 SAK (Rec: 10/29/22 17:12 [facility] [id number]) Posture Evaluation Position Sitting Head/C-Spine Posture Forward Head T-Spine Posture Increased Kyphosis L-Spine Posture Increased Lordosis Shoulder Posture (L) Rounded,(R) Rounded Scapula Posture (L) Protracted,(R) Protracted Arm Posture (L) Internally Rotated,(R) Internally Rotated Pelvis Posture Anteriorly Tilted Palpation Assessment Location RC insertion Palpation Findings Tenderness Palpation Details entire joint line painful to palpation PT-OP-K Range of Motion Start: 10/28/22 09:19 Freq: Status: Active Protocol: Document 05/21/23 10:14 SP (Rec: 05/21/23 10:53 SP [id number]) Shoulder Goniometric Range of Motion Shoulder Left Shoulder ROM WFL No Testing Position Sitting Flexion 138 Extension 45 Abduction 100 External Rotation at 0 degrees Abduction 80 Comments seated L shld AROM: FF improved de deg ABD improved 25 dedeg Ext: improved 35 dedeg ER: improved 25 de deg Right Testing Position Sitting Flexion 104 Abduction 95 External Rotation at 0 degrees Abduction 62 Internal Rotation Behind Back (text) right SI Comments seated AROM R shld: FF improved 14 de>119 deg post manual Abd: less 5 de deg ER: less 18 de deg IR: improved from R buttocks: right beltline/ SI, PT-OP-L Special Tests Start: 10/28/22 09:19 Freq: Status: Active Protocol: Document 10/29/22 09:50 SAK (Rec: 10/29/22 17:12 [facility] [id number]) Special Tests Shoulder Special Tests Lift-Off Rotator Cuff Test Results positive Elevation Impingement Test Results positive Drop Arm Rotator Cuff Test Results positve PT-OP-M Strength Start: 10/28/22 09:19 Freq: Status: Active Protocol: Document 10/29/22 09:50 SAK (Rec: 10/29/22 17:12 [facility] [id number]) Shoulder Strength Shoulder Manual Muscle Testing Left Flexion 4- Good- Extension 4- Good- Adduction 4 Good External Rotation 4- Good- Internal Rotation 4 Good PT-OP-N Lymphedema Start: 04/20/23 09:31 Freq: Status: Active Protocol: Document 06/28/23 13:11 SAK (Rec: 06/28/23 13:56 [facility] [id number]) Lymphedema Measurements Upper Extremity Circumference Measurements Left Affected MCP 19.8 cm Dorsum of Hand 22.6 cm Wrist 20 cm 5 cm From Wrist Crease 28.6 cm 10 cm From Wrist Crease 33 cm 15 cm From Wrist Crease 35.3 cm 20 cm From Wrist Crease 36.2 cm 25 cm From Wrist Crease 41.35 cm 30 cm From Wrist Crease 50.6 cm 35 cm From Wrist Crease 51.4 cm 40 cm From Wrist Crease 50 cm Elbow Joint 35.7 cm Right Affected MCP 19 cm Dorsum of Hand 20.3 cm Wrist 18 cm 5 cm From Wrist Crease 23.3 cm 10 cm From Wrist Crease 29.4 cm 15 cm From Wrist Crease 32.4 cm 20 cm From Wrist Crease 33.4 cm 25 cm From Wrist Crease 36.8 cm 30 cm From Wrist Crease 46.2 cm 35 cm From Wrist Crease 50.3 cm 40 cm From Wrist Crease 46 cm Elbow Joint 33 cm Axilla 52 cm Lower Extremity Circumference Measurements Right Affected MT Heads 23.2 cm Mid-foot 23.5 cm Medial Malleolus 26.7 cm 10 cm From Medial Malleolus 26.6 cm 20 cm From Medial Malleolus 39.5 cm 30 cm From Medial Malleolus 45.5 cm 40 cm From Medial Malleolus 54 cm 50 cm From Medial Malleolus 65.6 cm 60 cm From Medial Malleolus 69.5 cm 70 cm From Medial Malleolus 72 cm Knee Joint 52 cm Left Affected MT Heads 22.4 cm Mid-foot 24 cm Medial Malleolus 27.9 cm 10 cm From Medial Malleolus 26.9 cm 20 cm From Medial Malleolus 38.5 cm 30 cm From Medial Malleolus 44.8 cm 40 cm From Medial Malleolus 53.4 cm 50 cm From Medial Malleolus 66.4 cm 60 cm From Medial Malleolus 72.4 cm 70 cm From Medial Malleolus 75.6 cm Knee Joint 46 cm PT-OP-Q Treatments Start: 10/28/22 09:19 Freq: Status: Active Protocol: Document 07/01/23 13:12 [facility] (Rec: 07/01/23 14:41 [facility] [id number]) Lymphedema Treatment Manual Lymphatic Drainage Location for iram LE, and trunkal edema Duration 60 Comments none to UE's due to donning new compression sleeve, left on PT-OP-R Modalities Start: 10/28/22 09:19 Freq: Status: Active Protocol: Document 07/01/23 13:12 [facility] (Rec: 07/01/23 14:41 [facility] [id number]) Compression Pump Treatment Treatment Location left LE Pressure Amount (mmHg) (mmHG) 47 Inflation Time (Seconds) 30 Deflation Time (Seconds) 10 Treatment Duration (minutes) 45 Treatment Tolerance Good PT-OP-T Assessment and Plan Start: 10/28/22 09:19 Freq: Status: Active Protocol: Document 07/01/23 13:12 [facility] (Rec: 07/01/23 13:54 [facility] [id number]) Physical Therapy Assessment Goals Five Impairment compensatory movement patterns right UE Impairment overactivation of upper traps, postural dysfunction impacting right shoulder function Short Term Goal (STG) Patient will be able to self- correct posture and compensatory movements right shoulder with visual feedback of mirror STG Duration goal met [facility] Goal (LTG) Patient will be able to perform HEP and do functional movements right UE with improved posture, without compensatory movements for improved right shoulder function 05/29/23: goal mostly met though patient not able to don compression sleeves on her own due to pain, weight of UE's LTG Duration 06/20/23 Four Impairment lymphedema (lipidema-type) iram UE's, LEs, abdomen Short Term Goal (STG) Patient to be instructed in all aspects of lymphedema care to include skin care, manual lymphatic drainage, compression, lymphedema exercises 06/16/23: goal met STG Duration 06/20/23 [facility] Goal (LTG) Patient circumferential measurements dec and stabilized (no inc or dec greater than 1 cm over the course of 1 week) and patient to obtain appropriate compression garments. Patient to be independent with all aspects of self-management for lymphedema/lipidema 06/16/23: no significant decrease in circumferentialmeasurements. LTG Duration 07/21/23 Three Impairment activity tolerance Impairment Quickdash UE disability index score60% Motor Setter Goal (LTG) Improve QuickDash score to no greater than 30% as measure of improved activity tolerance with right UE 12/30/22: decreased to 39% 02/18/23: 43% today, more sore after no PT for 1 week. 04/20/23: 40% 05/29/23: LTG Duration 07/21/23 Two Impairment unable to reach overhead or behind her back with right shoulder Short Term Goal (STG) Patient will be able to reach use right UE to do her hair, and be able to pull pants up on right without increase in pain 12/30/22: goal progress 02/17/23: goal mostly met 04/06/23: goal met STG Duration goal met Motor Setter Goal (LTG) Patient will demonstrate full ROM with right shoulder to allow her to do all usual activities 04/20/23: goal progress LTG Duration 07/21/23 One Impairment pain right shoulder as high as 8/10 Short Term Goal (STG) decrease pain to no greater than 6/10 with usual activities 12/30/22: pain decreased to 5/10 02/17/23: goal met STG Duration goal met Motor Setter Goal (LTG) decrease pain to no greater than 3/10 with all usual activities 04/06/23: goal progress though variable ability, when feeling better patient with tendency to reach without thinking and reports inc in pain. Also, weight of arms from lymphedema appears to contribute to shoulder dysfunction; patient will be requesting order for lymphedema treatment from PCP 04/20/23: pain generally 3-5/10 , progress LTG Duration 07/21/23 Assessment Summary Assessment No word from Lidia Marshall or [place] [facility], PT contacted Lidia Marshall again via email. Patient given contact info. She will contact [place] [facility] again. Lipidema appears unchanged today, will measure again next session, consider placing patient on hold until pump arrives. Physical Therapy Plan Frequency and Duration Frequency of Treatment 2x/Week Duration of treatment (weeks) 12 Plan of Care Start Date 04/20/23 Plan of Care End Date 07/21/23 Therapeutic Interventions Therapeutic Interventions Aquatic Therapy,Home Exercise Program,Lymphedema Management, Manual Therapy,Patient/ Caregiver Education,Self-Care/ Home Management,Soft Tissue Mobilization,Taping, Therapeutic Activities, Therapeutic Exercises Modalities Cold Pack/Ice Massage,Electric Stimulation,Hot Packs, Infrared Therapy,Iontophoresis ,Ultrasound,Vasopneumatic Devices Next Visit Focus/Plan Next Note Type Treatment Note Next Visit Plan Circumferential measurements, discuss POC. Lipidema management.
--- NOTE | 2023-07-05 16:43 | PT.OTN ---
Current Diagnoses Lymphedema, not elsewhere classified (07/05/23) Pain in right shoulder (07/05/23) Incomplete rotator cuff tear or rupture of right shoulder, not specified as traumatic (07/05/23) Superior glenoid labrum lesion of right shoulder, initial encounter (07/05/23) Physical Therapy Treatment Note PT-OP-A Visit Information Start: 10/28/22 09:19 Freq: Status: Active Protocol: Document 07/05/23 13:34 SAK (Rec: 07/05/23 14:49 [facility] [id number]) Out-Patient Physical Therapy Visit Information Visit Information Visit Type Treatment Note Visit Start Time 13:15 Visit Stop Time 14:45 Total Visit Minutes 90 Visit Number 52 Evaluation Information Evaluation Date 10/29/22 PT-OP-B Current Condition Start: 10/28/22 09:19 Freq: Status: Active Protocol: Document 03/03/23 09:48 SAK (Rec: 03/03/23 10:38 SAK [id number]) Current Condition History of Current Condition Onset Date 1 1/2 years Current Complaints right History of Current Condition gradual onset right shoulder pain unknown reason. Increases with trying to reach overhead, out to side, or behind her back; pain and tingling. If tries to sleep on back both arms go numb. Unable to wear compression sleeve left due to pain right shoulder; patient previously seen by this PT for right shoulder pain and felt at that time pain at least some due to overuse right UE. Goes back to the doctor after PT ( Clifford Diggs). 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 Saw political science research assistant. MRI right shoulder: incomplete RC tear, superior labral tear Prior Treatments and Tests Tylenol, ice, heat. Can't do UE ex at cardiac rehab, low tolerance for HEP previously instructed. Has TENS, but doesn't know how to use PT-OP-C Subjective Start: 10/28/22 09:19 Freq: Status: Active Protocol: Document 07/05/23 13:34 SAK (Rec: 07/05/23 14:49 [facility] [id number]) OP-PT Subjective Patient Comments Patient Comments Called lymphedema center, looking at criteria, doesn't think qualifies but will all again. Called Lidia Marshall and told waiting for signature from physician; will send again to physician. PT-OP-E Functional Tests Start: 10/28/22 09:19 Freq: Status: Active Protocol: Document 10/29/22 09:50 SAK (Rec: 10/29/22 17:12 [facility] [id number]) Functional Tests Apley's Scratch Test Action 1- Left anterior shoulder Action 1- Right posterior shoulder Action 2- Left T2 Action 2- Right lateral neck Action 3- Left lateral hip Action 3- Right T7 PT-OP-H Neuro Start: 10/28/22 09:19 Freq: Status: Active Protocol: Document 10/29/22 09:50 SAK (Rec: 10/29/22 17:12 [facility] [id number]) Sensation Evaluation Gross Sensation Gross Sensation Left UE Impaired,Right UE Impaired Sensation Description Paresthesia Location Details Left Arm Light Touch Intact/Normal PT-OP-J Posture/Palpation/Skin Start: 10/28/22 09:19 Freq: Status: Active Protocol: Document 10/29/22 09:50 SAK (Rec: 10/29/22 17:12 [facility] [id number]) Posture Evaluation Position Sitting Head/C-Spine Posture Forward Head T-Spine Posture Increased Kyphosis L-Spine Posture Increased Lordosis Shoulder Posture (L) Rounded,(R) Rounded Scapula Posture (L) Protracted,(R) Protracted Arm Posture (L) Internally Rotated,(R) Internally Rotated Pelvis Posture Anteriorly Tilted Palpation Assessment Location RC insertion Palpation Findings Tenderness Palpation Details entire joint line painful to palpation PT-OP-K Range of Motion Start: 10/28/22 09:19 Freq: Status: Active Protocol: Document 05/21/23 10:14 SP (Rec: 05/21/23 10:53 SP [id number]) Shoulder Goniometric Range of Motion Shoulder Left Shoulder ROM WFL No Testing Position Sitting Flexion 138 Extension 45 Abduction 100 External Rotation at 0 degrees Abduction 80 Comments seated L shld AROM: FF improved de deg ABD improved 25 dedeg Ext: improved 35 dedeg ER: improved 25 de deg Right Testing Position Sitting Flexion 104 Abduction 95 External Rotation at 0 degrees Abduction 62 Internal Rotation Behind Back (text) right SI Comments seated AROM R shld: FF improved 14 de>119 deg post manual Abd: less 5 de deg ER: less 18 de deg IR: improved from R buttocks: right beltline/ SI, PT-OP-L Special Tests Start: 10/28/22 09:19 Freq: Status: Active Protocol: Document 10/29/22 09:50 SAK (Rec: 10/29/22 17:12 [facility] [id number]) Special Tests Shoulder Special Tests Lift-Off Rotator Cuff Test Results positive Elevation Impingement Test Results positive Drop Arm Rotator Cuff Test Results positve PT-OP-M Strength Start: 10/28/22 09:19 Freq: Status: Active Protocol: Document 10/29/22 09:50 SAK (Rec: 10/29/22 17:12 [facility] [id number]) Shoulder Strength Shoulder Manual Muscle Testing Left Flexion 4- Good- Extension 4- Good- Adduction 4 Good External Rotation 4- Good- Internal Rotation 4 Good PT-OP-N Lymphedema Start: 04/20/23 09:31 Freq: Status: Active Protocol: Document 07/05/23 13:34 SAK (Rec: 07/05/23 14:49 SAK [id number]) Lymphedema Measurements Upper Extremity Circumference Measurements Left Affected MCP 19.7 cm Dorsum of Hand 21.7 cm Wrist 20 cm 5 cm From Wrist Crease 27.5 cm 10 cm From Wrist Crease 32.5 cm 15 cm From Wrist Crease 35.3 cm 20 cm From Wrist Crease 37 cm 25 cm From Wrist Crease 38 cm 30 cm From Wrist Crease 48.6 cm 35 cm From Wrist Crease 50.8 cm 40 cm From Wrist Crease 52.5 cm Elbow Joint 36.8 cm Right Affected MCP 19.5 cm Dorsum of Hand 21.1 cm Wrist 18.9 cm 5 cm From Wrist Crease 23.5 cm 10 cm From Wrist Crease 28.2 cm 15 cm From Wrist Crease 32.3 cm 20 cm From Wrist Crease 34 cm 25 cm From Wrist Crease 44.8 cm 30 cm From Wrist Crease 49 cm 35 cm From Wrist Crease 47 cm 40 cm From Wrist Crease 46.3 cm Elbow Joint 33.9 cm - after 1/2 hour on sequential pneumatic pump Lower Extremity Circumference Measurements Right Affected MT Heads 23.5 cm Mid-foot 23.8 cm Medial Malleolus 27.7 cm 10 cm From Medial Malleolus 26 cm 20 cm From Medial Malleolus 40 cm 30 cm From Medial Malleolus 45.1 cm 40 cm From Medial Malleolus 52.7 cm 50 cm From Medial Malleolus 66.4 cm 60 cm From Medial Malleolus 71.5 cm 70 cm From Medial Malleolus 72 cm Knee Joint 49.3 cm - after 1/2 hour on sequential pneumatic pump Left Affected MT Heads 23 cm Mid-foot 25.1 cm Medial Malleolus 28.5 cm 10 cm From Medial Malleolus 25.7 cm 20 cm From Medial Malleolus 37.6 cm 30 cm From Medial Malleolus 44.4 cm 40 cm From Medial Malleolus 52.9 cm 50 cm From Medial Malleolus 66.6 cm 60 cm From Medial Malleolus 72 cm 70 cm From Medial Malleolus 75 cm Knee Joint 51.6 cm PT-OP-Q Treatments Start: 10/28/22 09:19 Freq: Status: Active Protocol: Document 07/05/23 13:34 [facility] (Rec: 07/05/23 14:50 [facility] [id number]) Lymphedema Treatment Manual Lymphatic Drainage Location for iram LE, and trunkal edema Duration 60 Comments none to UE's due to donning new compression sleeve, left on PT-OP-R Modalities Start: 10/28/22 09:19 Freq: Status: Active Protocol: Document 07/05/23 13:34 [facility] (Rec: 07/05/23 14:49 [facility] [id number]) Compression Pump Treatment Treatment Location Right Leg Pressure Amount (mmHg) (mmHG) 47 Inflation Time (Seconds) 30 Deflation Time (Seconds) 10 Treatment Duration (minutes) 45 Treatment Tolerance Good Right Arm Pressure Amount (mmHg) (mmHG) 40 Inflation Time (Seconds) 30 Deflation Time (Seconds) 10 Treatment Duration (minutes) 45 Treatment Tolerance Good left LE Pressure Amount (mmHg) (mmHG) 47 Inflation Time (Seconds) 30 Deflation Time (Seconds) 10 Treatment Duration (minutes) 45 Treatment Tolerance Good Left Arm Pressure Amount (mmHg) (mmHG) 40 Inflation Time (Seconds) 30 Deflation Time (Seconds) 10 Treatment Duration (minutes) 45 Treatment Tolerance Good PT-OP-T Assessment and Plan Start: 10/28/22 09:19 Freq: Status: Active Protocol: Document 07/05/23 13:34 [facility] (Rec: 07/05/23 14:49 [facility] [id number]) Physical Therapy Assessment Goals Five Impairment compensatory movement patterns right UE Impairment overactivation of upper traps, postural dysfunction impacting right shoulder function Short Term Goal (STG) Patient will be able to self- correct posture and compensatory movements right shoulder with visual feedback of mirror STG Duration goal met Senior Clinician Goal (LTG) Patient will be able to perform HEP and do functional movements right UE with improved posture, without compensatory movements for improved right shoulder function 05/29/23: goal mostly met though patient not able to don compression sleeves on her own due to pain, weight of UE's LTG Duration 06/20/23 Four Impairment lymphedema (lipidema-type) iram UE's, LEs, abdomen Short Term Goal (STG) Patient to be instructed in all aspects of lymphedema care to include skin care, manual lymphatic drainage, compression, lymphedema exercises 06/16/23: goal met STG Duration 06/20/23 Senior Clinician Goal (LTG) Patient circumferential measurements dec and stabilized (no inc or dec greater than 1 cm over the course of 1 week) and patient to obtain appropriate compression garments. Patient to be independent with all aspects of self-management for lymphedema/lipidema 06/16/23: no significant decrease in circumferentialmeasurements. LTG Duration 07/21/23 Three Impairment activity tolerance Impairment Quickdash UE disability index score60% Senior Clinician Goal (LTG) Improve QuickDash score to no greater than 30% as measure of improved activity tolerance with right UE 12/30/22: decreased to 39% 02/18/23: 43% today, more sore after no PT for 1 week. 04/20/23: 40% 05/29/23: LTG Duration 07/21/23 Two Impairment unable to reach overhead or behind her back with right shoulder Short Term Goal (STG) Patient will be able to reach use right UE to do her hair, and be able to pull pants up on right without increase in pain 12/30/22: goal progress 02/17/23: goal mostly met 04/06/23: goal met STG Duration goal met Care Home Goal (LTG) Patient will demonstrate full ROM with right shoulder to allow her to do all usual activities 04/20/23: goal progress LTG Duration 07/21/23 One Impairment pain right shoulder as high as 8/10 Short Term Goal (STG) decrease pain to no greater than 6/10 with usual activities 12/30/22: pain decreased to 5/10 02/17/23: goal met STG Duration goal met Senior Clinician Goal (LTG) decrease pain to no greater than 3/10 with all usual activities 04/06/23: goal progress though variable ability, when feeling better patient with tendency to reach without thinking and reports inc in pain. Also, weight of arms from lymphedema appears to contribute to shoulder dysfunction; patient will be requesting order for lymphedema treatment from PCP 04/20/23: pain generally 3-5/10 , progress LTG Duration 07/21/23 Assessment Summary Assessment Does not appear patient will qualify for consult with lymphedema center (criteria notes BMI below 35 and no lipidema). Patient given information about [facility] Lip[facility] [facility]. Lymphedema pump approval in process, Lidia Marshall working to get physician signature. Noted circumferential improvements after use of pump today ( measurements prior to pump were variable). Patient frustrated by apparent lack of further options for treatment . Mobility limited by LBP and not able to aquatic exercise for 2 weeks due to community pool closure. Patient symptoms still seem most like lipedema including painful lumps and sparing of feet and hands. Specialists hard to find. Physical Therapy Plan Frequency and Duration Frequency of Treatment 2x/Week Duration of treatment (weeks) 12 Plan of Care Start Date 04/20/23 Plan of Care End Date 07/21/23 Therapeutic Interventions Therapeutic Interventions Aquatic Therapy,Home Exercise Program,Lymphedema Management, Manual Therapy,Patient/ Caregiver Education,Self-Care/ Home Management,Soft Tissue Mobilization,Taping, Therapeutic Activities, Therapeutic Exercises Modalities Cold Pack/Ice Massage,Electric Stimulation,Hot Packs, Infrared Therapy,Iontophoresis ,Ultrasound,Vasopneumatic Devices Next Visit Focus/Plan Next Note Type Treatment Note Next Visit Plan Continue lipidema management. Identify other informational and physician specialty for referral.
--- NOTE | 2023-07-07 16:17 | PT.OTN ---
Current Diagnoses Lymphedema, not elsewhere classified (07/07/23) Pain in right shoulder (07/07/23) Incomplete rotator cuff tear or rupture of right shoulder, not specified as traumatic (07/07/23) Superior glenoid labrum lesion of right shoulder, initial encounter (07/07/23) Physical Therapy Treatment Note PT-OP-A Visit Information Start: 10/28/22 09:19 Freq: Status: Active Protocol: Document 07/07/23 13:18 SAK (Rec: 07/07/23 13:56 [facility] [id number]) Out-Patient Physical Therapy Visit Information Visit Information Visit Type Treatment Note Visit Start Time 13:19 Visit Stop Time 14:45 Total Visit Minutes 90 Visit Number 53 Evaluation Information Evaluation Date 10/29/22 PT-OP-B Current Condition Start: 10/28/22 09:19 Freq: Status: Active Protocol: Document 03/03/23 09:48 SAK (Rec: 03/03/23 10:38 SAK [id number]) Current Condition History of Current Condition Onset Date 1 1/2 years Current Complaints right History of Current Condition gradual onset right shoulder pain unknown reason. Increases with trying to reach overhead, out to side, or behind her back; pain and tingling. If tries to sleep on back both arms go numb. Unable to wear compression sleeve left due to pain right shoulder; patient previously seen by this PT for right shoulder pain and felt at that time pain at least some due to overuse right UE. Goes back to the doctor after PT ( Clifford Diggs). 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 MRI right shoulder: incomplete RC tear, superior labral tear Prior Treatments and Tests Tylenol, ice, heat. Can't do UE ex at cardiac rehab, low tolerance for HEP previously instructed. Has TENS, but doesn't know how to use PT-OP-C Subjective Start: 10/28/22 09:19 Freq: Status: Active Protocol: Document 07/07/23 13:18 SAK (Rec: 07/07/23 13:56 [facility] [id number]) OP-PT Subjective Patient Comments Patient Comments Patient saw her instrumentation and controls technician today, states he said she has some other kind of lymph disorder, she can't remember the name. He said he couldn't help her. She is considering having a second opinion. PT-OP-E Functional Tests Start: 10/28/22 09:19 Freq: Status: Active Protocol: Document 10/29/22 09:50 SAK (Rec: 10/29/22 17:12 [facility] [id number]) Functional Tests Apley's Scratch Test Action 1- Left anterior shoulder Action 1- Right posterior shoulder Action 2- Left T2 Action 2- Right lateral neck Action 3- Left lateral hip Action 3- Right T7 PT-OP-H Neuro Start: 10/28/22 09:19 Freq: Status: Active Protocol: Document 10/29/22 09:50 SAK (Rec: 10/29/22 17:12 [facility] [id number]) Sensation Evaluation Gross Sensation Gross Sensation Left UE Impaired,Right UE Impaired Sensation Description Paresthesia Location Details Left Arm Light Touch Intact/Normal PT-OP-J Posture/Palpation/Skin Start: 10/28/22 09:19 Freq: Status: Active Protocol: Document 10/29/22 09:50 SAK (Rec: 10/29/22 17:12 [facility] [id number]) Posture Evaluation Position Sitting Head/C-Spine Posture Forward Head T-Spine Posture Increased Kyphosis L-Spine Posture Increased Lordosis Shoulder Posture (L) Rounded,(R) Rounded Scapula Posture (L) Protracted,(R) Protracted Arm Posture (L) Internally Rotated,(R) Internally Rotated Pelvis Posture Anteriorly Tilted Palpation Assessment Location RC insertion Palpation Findings Tenderness Palpation Details entire joint line painful to palpation PT-OP-K Range of Motion Start: 10/28/22 09:19 Freq: Status: Active Protocol: Document 05/21/23 10:14 SP (Rec: 05/21/23 10:53 SP [id number]) Shoulder Goniometric Range of Motion Shoulder Left Shoulder ROM WFL No Testing Position Sitting Flexion 138 Extension 45 Abduction 100 External Rotation at 0 degrees Abduction 80 Comments seated L shld AROM: FF improved de deg ABD improved 25 dedeg Ext: improved 35 dedeg ER: improved 25 de deg Right Testing Position Sitting Flexion 104 Abduction 95 External Rotation at 0 degrees Abduction 62 Internal Rotation Behind Back (text) right SI Comments seated AROM R shld: FF improved 14 de>119 deg post manual Abd: less 5 de deg ER: less 18 de deg IR: improved from R buttocks: right beltline/ SI, PT-OP-L Special Tests Start: 10/28/22 09:19 Freq: Status: Active Protocol: Document 10/29/22 09:50 SAK (Rec: 10/29/22 17:12 [facility] [id number]) Special Tests Shoulder Special Tests Lift-Off Rotator Cuff Test Results positive Elevation Impingement Test Results positive Drop Arm Rotator Cuff Test Results positve PT-OP-M Strength Start: 10/28/22 09:19 Freq: Status: Active Protocol: Document 10/29/22 09:50 SAK (Rec: 10/29/22 17:12 [facility] [id number]) Shoulder Strength Shoulder Manual Muscle Testing Left Flexion 4- Good- Extension 4- Good- Adduction 4 Good External Rotation 4- Good- Internal Rotation 4 Good PT-OP-N Lymphedema Start: 04/20/23 09:31 Freq: Status: Active Protocol: Document 07/07/23 13:18 SAK (Rec: 07/07/23 14:51 [facility] [id number]) Lymphedema Measurements Lower Extremity Circumference Measurements Left Affected - waist 113.1 hips 146 PT-OP-Q Treatments Start: 10/28/22 09:19 Freq: Status: Active Protocol: Document 07/07/23 13:18 SAK (Rec: 07/07/23 13:56 [facility] [id number]) Lymphedema Treatment Manual Lymphatic Drainage Location for iram LE, and trunkal edema Duration 60 Comments none to UE's due to donning new compression sleeve, left on PT-OP-R Modalities Start: 10/28/22 09:19 Freq: Status: Active Protocol: Document 07/07/23 13:18 SAK (Rec: 07/07/23 13:56 [facility] [id number]) Compression Pump Treatment Treatment Location Right Leg Pressure Amount (mmHg) (mmHG) 47 Inflation Time (Seconds) 30 Deflation Time (Seconds) 10 Treatment Duration (minutes) 45 Treatment Tolerance Good Right Arm Pressure Amount (mmHg) (mmHG) 40 Inflation Time (Seconds) 30 Deflation Time (Seconds) 10 Treatment Duration (minutes) 45 Treatment Tolerance Good left LE Pressure Amount (mmHg) (mmHG) 47 Inflation Time (Seconds) 30 Deflation Time (Seconds) 10 Treatment Duration (minutes) 45 Treatment Tolerance Good Left Arm Pressure Amount (mmHg) (mmHG) 40 Inflation Time (Seconds) 30 Deflation Time (Seconds) 10 Treatment Duration (minutes) 45 Treatment Tolerance Good PT-OP-T Assessment and Plan Start: 10/28/22 09:19 Freq: Status: Active Protocol: Document 07/07/23 13:18 SAK (Rec: 07/07/23 13:56 [facility] [id number]) Physical Therapy Assessment Goals Five Impairment compensatory movement patterns right UE Impairment overactivation of upper traps, postural dysfunction impacting right shoulder function Short Term Goal (STG) Patient will be able to self- correct posture and compensatory movements right shoulder with visual feedback of mirror STG Duration goal met Retirement Goal (LTG) Patient will be able to perform HEP and do functional movements right UE with improved posture, without compensatory movements for improved right shoulder function 05/29/23: goal mostly met though patient not able to don compression sleeves on her own due to pain, weight of UE's LTG Duration 06/20/23 Four Impairment lymphedema (lipidema-type) iram UE's, LEs, abdomen Short Term Goal (STG) Patient to be instructed in all aspects of lymphedema care to include skin care, manual lymphatic drainage, compression, lymphedema exercises 06/16/23: goal met STG Duration 06/20/23 Retirement Goal (LTG) Patient circumferential measurements dec and stabilized (no inc or dec greater than 1 cm over the course of 1 week) and patient to obtain appropriate compression garments. Patient to be independent with all aspects of self-management for lymphedema/lipidema 06/16/23: no significant decrease in circumferentialmeasurements. LTG Duration 07/21/23 Three Impairment activity tolerance Impairment Quickdash UE disability index score60% [employer] Goal (LTG) Improve QuickDash score to no greater than 30% as measure of improved activity tolerance with right UE 12/30/22: decreased to 39% 02/18/23: 43% today, more sore after no PT for 1 week. 04/20/23: 40% 05/29/23: LTG Duration 07/21/23 Two Impairment unable to reach overhead or behind her back with right shoulder Short Term Goal (STG) Patient will be able to reach use right UE to do her hair, and be able to pull pants up on right without increase in pain 12/30/22: goal progress 02/17/23: goal mostly met 04/06/23: goal met STG Duration goal met Retirement Goal (LTG) Patient will demonstrate full ROM with right shoulder to allow her to do all usual activities 04/20/23: goal progress LTG Duration 07/21/23 One Impairment pain right shoulder as high as 8/10 Short Term Goal (STG) decrease pain to no greater than 6/10 with usual activities 12/30/22: pain decreased to 5/10 02/17/23: goal met STG Duration goal met [employer] Goal (LTG) decrease pain to no greater than 3/10 with all usual activities 04/06/23: goal progress though variable ability, when feeling better patient with tendency to reach without thinking and reports inc in pain. Also, weight of arms from lymphedema appears to contribute to shoulder dysfunction; patient will be requesting order for lymphedema treatment from PCP 04/20/23: pain generally 3-5/10 , progress LTG Duration 07/21/23 Assessment Summary Assessment circumferential measurements dec waist and hips though measured over compression shorts; will need to measure without compression next session. Patient frustrated by doctors not understanding lipedema or seeming able to help her with her swelling. Patient was shown pictures of different presentations of lymphedema including buttocks only, UE only, buttocks and upper LE's and trunk only; still appears to this PT that patient has lipedema UE's, trunk, buttocks, and upper LE. Physical Therapy Plan Frequency and Duration Frequency of Treatment 2x/Week Duration of treatment (weeks) 12 Plan of Care Start Date 04/20/23 Plan of Care End Date 07/21/23 Therapeutic Interventions Therapeutic Interventions Aquatic Therapy,Home Exercise Program,Lymphedema Management, Manual Therapy,Patient/ Caregiver Education,Self-Care/ Home Management,Soft Tissue Mobilization,Taping, Therapeutic Activities, Therapeutic Exercises Modalities Cold Pack/Ice Massage,Electric Stimulation,Hot Packs, Infrared Therapy,Iontophoresis ,Ultrasound,Vasopneumatic Devices Next Visit Focus/Plan Next Note Type Treatment Note Next Visit Plan Continue lipidema management. Identify other informational and physician specialty for referral to consider lipedema vs other lymph disorder (ie Dercum's)
--- NOTE | 2023-07-15 16:33 | PT.OTN ---
Current Diagnoses Lymphedema, not elsewhere classified (07/15/23) Pain in right shoulder (07/15/23) Incomplete rotator cuff tear or rupture of right shoulder, not specified as traumatic (07/15/23) Superior glenoid labrum lesion of right shoulder, initial encounter (07/15/23) Physical Therapy Treatment Note PT-OP-A Visit Information Start: 10/28/22 09:19 Freq: Status: Active Protocol: Document 07/15/23 13:18 SAK (Rec: 07/15/23 14:10 [facility] [id number]) Out-Patient Physical Therapy Visit Information Visit Information Visit Type Treatment Note Visit Start Time 13:19 Visit Stop Time 14:45 Total Visit Minutes 86 Visit Number 54 Evaluation Information Evaluation Date 10/29/22 PT-OP-B Current Condition Start: 10/28/22 09:19 Freq: Status: Active Protocol: Document 03/03/23 09:48 SAK (Rec: 03/03/23 10:38 [facility] [id number]) Current Condition History of Current Condition Onset Date 1 1/2 years Current Complaints right History of Current Condition gradual onset right shoulder pain unknown reason. Increases with trying to reach overhead, out to side, or behind her back; pain and tingling. If tries to sleep on back both arms go numb. Unable to wear compression sleeve left due to pain right shoulder; patient previously seen by this PT for right shoulder pain and felt at that time pain at least some due to overuse right UE. Goes back to the doctor after PT ( Clifford Diggs). 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 Saw money market dealer. MRI right shoulder: incomplete RC tear, superior labral tear Prior Treatments and Tests Tylenol, ice, heat. Can't do UE ex at cardiac rehab, low tolerance for HEP previously instructed. Has TENS, but doesn't know how to use PT-OP-C Subjective Start: 10/28/22 09:19 Freq: Status: Active Protocol: Document 07/15/23 13:18 SAK (Rec: 07/15/23 16:30 [facility] [id number]) OP-PT Subjective Patient Comments Patient Comments Called Dr. Anders about paperwork for pump. Working to get MRI of spine. [employer] 50% off on Wednesday and plans to order some other compression garments. PT-OP-E Functional Tests Start: 10/28/22 09:19 Freq: Status: Active Protocol: Document 10/29/22 09:50 SAK (Rec: 10/29/22 17:12 [facility] [id number]) Functional Tests Apley's Scratch Test Action 1- Left anterior shoulder Action 1- Right posterior shoulder Action 2- Left T2 Action 2- Right lateral neck Action 3- Left lateral hip Action 3- Right T7 PT-OP-H Neuro Start: 10/28/22 09:19 Freq: Status: Active Protocol: Document 10/29/22 09:50 SAK (Rec: 10/29/22 17:12 [facility] [id number]) Sensation Evaluation Gross Sensation Gross Sensation Left UE Impaired,Right UE Impaired Sensation Description Paresthesia Location Details Left Arm Light Touch Intact/Normal PT-OP-J Posture/Palpation/Skin Start: 10/28/22 09:19 Freq: Status: Active Protocol: Document 10/29/22 09:50 SAK (Rec: 10/29/22 17:12 [facility] [id number]) Posture Evaluation Position Sitting Head/C-Spine Posture Forward Head T-Spine Posture Increased Kyphosis L-Spine Posture Increased Lordosis Shoulder Posture (L) Rounded,(R) Rounded Scapula Posture (L) Protracted,(R) Protracted Arm Posture (L) Internally Rotated,(R) Internally Rotated Pelvis Posture Anteriorly Tilted Palpation Assessment Location RC insertion Palpation Findings Tenderness Palpation Details entire joint line painful to palpation PT-OP-K Range of Motion Start: 10/28/22 09:19 Freq: Status: Active Protocol: Document 05/21/23 10:14 SP (Rec: 05/21/23 10:53 SP [id number]) Shoulder Goniometric Range of Motion Shoulder Left Shoulder ROM WFL No Testing Position Sitting Flexion 138 Extension 45 Abduction 100 External Rotation at 0 degrees Abduction 80 Comments seated L shld AROM: FF improved de deg ABD improved 25 dedeg Ext: improved 35 dedeg ER: improved 25 de deg Right Testing Position Sitting Flexion 104 Abduction 95 External Rotation at 0 degrees Abduction 62 Internal Rotation Behind Back (text) right SI Comments seated AROM R shld: FF improved 14 de>119 deg post manual Abd: less 5 de deg ER: less 18 de deg IR: improved from R buttocks: right beltline/ SI, PT-OP-L Special Tests Start: 10/28/22 09:19 Freq: Status: Active Protocol: Document 10/29/22 09:50 SAK (Rec: 10/29/22 17:12 [facility] [id number]) Special Tests Shoulder Special Tests Lift-Off Rotator Cuff Test Results positive Elevation Impingement Test Results positive Drop Arm Rotator Cuff Test Results positve PT-OP-M Strength Start: 10/28/22 09:19 Freq: Status: Active Protocol: Document 10/29/22 09:50 SAK (Rec: 10/29/22 17:12 [facility] [id number]) Shoulder Strength Shoulder Manual Muscle Testing Left Flexion 4- Good- Extension 4- Good- Adduction 4 Good External Rotation 4- Good- Internal Rotation 4 Good PT-OP-N Lymphedema Start: 04/20/23 09:31 Freq: Status: Active Protocol: Document 07/15/23 13:18 SAK (Rec: 07/15/23 14:10 [facility] [id number]) Lymphedema Measurements Upper Extremity Circumference Measurements Left Affected MCP 19.2 cm Dorsum of Hand 22 cm Wrist 20.3 cm 5 cm From Wrist Crease 27.1 cm 10 cm From Wrist Crease 32.2 cm 15 cm From Wrist Crease 35.3 cm 20 cm From Wrist Crease 35.7 cm 25 cm From Wrist Crease 40.2 cm 30 cm From Wrist Crease 50.4 cm 35 cm From Wrist Crease 49.6 cm 40 cm From Wrist Crease 44.9 cm Elbow Joint 35.5 cm Right Affected MCP 19.3 cm Dorsum of Hand 20.8 cm Wrist 18.9 cm 5 cm From Wrist Crease 24 cm 10 cm From Wrist Crease 28.1 cm 15 cm From Wrist Crease 31.4 cm 20 cm From Wrist Crease 32.8 cm 25 cm From Wrist Crease 40.8 cm 30 cm From Wrist Crease 46.9 cm 35 cm From Wrist Crease 48 cm 40 cm From Wrist Crease 22.8 cm Elbow Joint 32.8 cm Lower Extremity Circumference Measurements Right Affected MT Heads 23 cm Mid-foot 23.2 cm Medial Malleolus 27 cm 10 cm From Medial Malleolus 26 cm 20 cm From Medial Malleolus 40.7 cm 30 cm From Medial Malleolus 45 cm 40 cm From Medial Malleolus 51.1 cm 50 cm From Medial Malleolus 65.1 cm 60 cm From Medial Malleolus 68.5 cm 70 cm From Medial Malleolus 71.5 cm Left Affected MT Heads 22.8 cm Mid-foot 24.6 cm Medial Malleolus 26.7 cm 10 cm From Medial Malleolus 26.3 cm 20 cm From Medial Malleolus 39 cm 30 cm From Medial Malleolus 44.3 cm 40 cm From Medial Malleolus 54.8 cm 50 cm From Medial Malleolus 67.5 cm 60 cm From Medial Malleolus 72.5 cm Knee Joint 51.6 cm - waist 117 cm hips 145 cm PT-OP-Q Treatments Start: 10/28/22 09:19 Freq: Status: Active Protocol: Document 07/15/23 13:18 [facility] (Rec: 07/15/23 14:10 [facility] [id number]) Therapeutic Exercises Supine Exercises shoulder ROM Comments review deep breathing Side bilateral Comments abdominal lateral chest; verbal and tactile cues Lymphedema Treatment Manual Lymphatic Drainage Location for iram LE, and trunkal edema Duration 60 Comments none to UE's due to donning new compression sleeve, left on Other Other circumferential measurements PT-OP-R Modalities Start: 10/28/22 09:19 Freq: Status: Active Protocol: Document 07/15/23 13:18 [facility] (Rec: 07/15/23 14:10 [facility] [id number]) Compression Pump Treatment Treatment Location Right Leg Pressure Amount (mmHg) (mmHG) 47 Inflation Time (Seconds) 30 Deflation Time (Seconds) 10 Treatment Duration (minutes) 45 Treatment Tolerance Good Right Arm Pressure Amount (mmHg) (mmHG) 40 Inflation Time (Seconds) 30 Deflation Time (Seconds) 10 Treatment Duration (minutes) 45 Treatment Tolerance Good left LE Pressure Amount (mmHg) (mmHG) 47 Inflation Time (Seconds) 30 Deflation Time (Seconds) 10 Treatment Duration (minutes) 45 Treatment Tolerance Good Left Arm Pressure Amount (mmHg) (mmHG) 40 Inflation Time (Seconds) 30 Deflation Time (Seconds) 10 Treatment Duration (minutes) 45 Treatment Tolerance Good PT-OP-T Assessment and Plan Start: 10/28/22 09:19 Freq: Status: Active Protocol: Document 07/15/23 13:18 [facility] (Rec: 07/15/23 14:10 [facility] [id number]) Physical Therapy Assessment Goals Five Impairment compensatory movement patterns right UE Impairment overactivation of upper traps, postural dysfunction impacting right shoulder function Short Term Goal (STG) Patient will be able to self- correct posture and compensatory movements right shoulder with visual feedback of mirror STG Duration goal met [employer] Goal (LTG) Patient will be able to perform HEP and do functional movements right UE with improved posture, without compensatory movements for improved right shoulder function 05/29/23: goal mostly met though patient not able to don compression sleeves on her own due to pain, weight of UE's LTG Duration 06/20/23 Four Impairment lymphedema (lipidema-type) iram UE's, LEs, abdomen Short Term Goal (STG) Patient to be instructed in all aspects of lymphedema care to include skin care, manual lymphatic drainage, compression, lymphedema exercises 06/16/23: goal met STG Duration 06/20/23 Care Home Goal (LTG) Patient circumferential measurements dec and stabilized (no inc or dec greater than 1 cm over the course of 1 week) and patient to obtain appropriate compression garments. Patient to be independent with all aspects of self-management for lymphedema/lipidema 06/16/23: no significant decrease in circumferentialmeasurements. LTG Duration 07/21/23 Three Impairment activity tolerance Impairment Quickdash UE disability index score60% [employer] Goal (LTG) Improve QuickDash score to no greater than 30% as measure of improved activity tolerance with right UE 12/30/22: decreased to 39% 02/18/23: 43% today, more sore after no PT for 1 week. 04/20/23: 40% 05/29/23: LTG Duration 07/21/23 Two Impairment unable to reach overhead or behind her back with right shoulder Short Term Goal (STG) Patient will be able to reach use right UE to do her hair, and be able to pull pants up on right without increase in pain 12/30/22: goal progress 02/17/23: goal mostly met 04/06/23: goal met STG Duration goal met Care Home Goal (LTG) Patient will demonstrate full ROM with right shoulder to allow her to do all usual activities 04/20/23: goal progress LTG Duration 07/21/23 One Impairment pain right shoulder as high as 8/10 Short Term Goal (STG) decrease pain to no greater than 6/10 with usual activities 12/30/22: pain decreased to 5/10 02/17/23: goal met STG Duration goal met [employer] Goal (LTG) decrease pain to no greater than 3/10 with all usual activities 04/06/23: goal progress though variable ability, when feeling better patient with tendency to reach without thinking and reports inc in pain. Also, weight of arms from lymphedema appears to contribute to shoulder dysfunction; patient will be requesting order for lymphedema treatment from PCP 04/20/23: pain generally 3-5/10 , progress LTG Duration 07/21/23 Assessment Summary Assessment Noting some decreases in circumferential measurements all extremities though variable and also with some areas of inc. Patient consistent with wearing compression, awaing sequential pneumatic pump from [employer] that has now been sent per company. May look at getting a referral for physician (personal loan specialist ) that is recommended by the [employer] website in [place] for further consult regarding her treatment options. Physical Therapy Plan Frequency and Duration Frequency of Treatment 2x/Week Duration of treatment (weeks) 12 Plan of Care Start Date 04/20/23 Plan of Care End Date 07/21/23 Therapeutic Interventions Therapeutic Interventions Aquatic Therapy,Home Exercise Program,Lymphedema Management, Manual Therapy,Patient/ Caregiver Education,Self-Care/ Home Management,Soft Tissue Mobilization,Taping, Therapeutic Activities, Therapeutic Exercises Modalities Cold Pack/Ice Massage,Electric Stimulation,Hot Packs, Infrared Therapy,Iontophoresis ,Ultrasound,Vasopneumatic Devices Next Visit Focus/Plan Next Note Type Treatment Note Next Visit Plan Instruct patient in use of sequential pneumatic pump when arrives, continue lipidema management. Encourage further medical consults with physician with knowledge of lipidema and other lymph and lipid disorders.
--- NOTE | 2023-07-19 14:57 | PT.OTN ---
Current Diagnoses Lymphedema, not elsewhere classified (07/19/23) Pain in right shoulder (07/19/23) Incomplete rotator cuff tear or rupture of right shoulder, not specified as traumatic (07/19/23) Superior glenoid labrum lesion of right shoulder, initial encounter (07/19/23) Physical Therapy Treatment Note PT-OP-A Visit Information Start: 10/28/22 09:19 Freq: Status: Active Protocol: Document 07/19/23 13:18 SAK (Rec: 07/19/23 14:57 [facility] [id number]) Out-Patient Physical Therapy Visit Information Visit Information Visit Type Treatment Note Visit Start Time 13:18 Visit Stop Time 14:45 Total Visit Minutes 86 Visit Number 55 Evaluation Information Evaluation Date 10/29/22 PT-OP-B Current Condition Start: 10/28/22 09:19 Freq: Status: Active Protocol: Document 03/03/23 09:48 SAK (Rec: 03/03/23 10:38 SAK [id number]) Current Condition History of Current Condition Onset Date 1 1/2 years Current Complaints right History of Current Condition gradual onset right shoulder pain unknown reason. Increases with trying to reach overhead, out to side, or behind her back; pain and tingling. If tries to sleep on back both arms go numb. Unable to wear compression sleeve left due to pain right shoulder; patient previously seen by this PT for right shoulder pain and felt at that time pain at least some due to overuse right UE. Goes back to the doctor after PT ( Clifford Diggs). 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 Saw court bailiff or sheriff. MRI right shoulder: incomplete RC tear, superior labral tear Prior Treatments and Tests Tylenol, ice, heat. Can't do UE ex at cardiac rehab, low tolerance for HEP previously instructed. Has TENS, but doesn't know how to use PT-OP-C Subjective Start: 10/28/22 09:19 Freq: Status: Active Protocol: Document 07/19/23 13:18 SAK (Rec: 07/19/23 14:57 SAK [id number]) OP-PT Subjective Patient Comments Patient Comments Called Dr. Anders about paperwork for pump. Working to get MRI of spine. [employer] 50% off on Wednesday and plans to order some other compression garments. PT-OP-E Functional Tests Start: 10/28/22 09:19 Freq: Status: Active Protocol: Document 10/29/22 09:50 SAK (Rec: 10/29/22 17:12 [facility] [id number]) Functional Tests Apley's Scratch Test Action 1- Left anterior shoulder Action 1- Right posterior shoulder Action 2- Left T2 Action 2- Right lateral neck Action 3- Left lateral hip Action 3- Right T7 PT-OP-H Neuro Start: 10/28/22 09:19 Freq: Status: Active Protocol: Document 10/29/22 09:50 SAK (Rec: 10/29/22 17:12 [facility] [id number]) Sensation Evaluation Gross Sensation Gross Sensation Left UE Impaired,Right UE Impaired Sensation Description Paresthesia Location Details Left Arm Light Touch Intact/Normal PT-OP-J Posture/Palpation/Skin Start: 10/28/22 09:19 Freq: Status: Active Protocol: Document 10/29/22 09:50 SAK (Rec: 10/29/22 17:12 [facility] [id number]) Posture Evaluation Position Sitting Head/C-Spine Posture Forward Head T-Spine Posture Increased Kyphosis L-Spine Posture Increased Lordosis Shoulder Posture (L) Rounded,(R) Rounded Scapula Posture (L) Protracted,(R) Protracted Arm Posture (L) Internally Rotated,(R) Internally Rotated Pelvis Posture Anteriorly Tilted Palpation Assessment Location RC insertion Palpation Findings Tenderness Palpation Details entire joint line painful to palpation PT-OP-K Range of Motion Start: 10/28/22 09:19 Freq: Status: Active Protocol: Document 05/21/23 10:14 SP (Rec: 05/21/23 10:53 SP [id number]) Shoulder Goniometric Range of Motion Shoulder Left Shoulder ROM WFL No Testing Position Sitting Flexion 138 Extension 45 Abduction 100 External Rotation at 0 degrees Abduction 80 Comments seated L shld AROM: FF improved de deg ABD improved 25 dedeg Ext: improved 35 dedeg ER: improved 25 de deg Right Testing Position Sitting Flexion 104 Abduction 95 External Rotation at 0 degrees Abduction 62 Internal Rotation Behind Back (text) right SI Comments seated AROM R shld: FF improved 14 de>119 deg post manual Abd: less 5 de deg ER: less 18 de deg IR: improved from R buttocks: right beltline/ SI, PT-OP-L Special Tests Start: 10/28/22 09:19 Freq: Status: Active Protocol: Document 10/29/22 09:50 SAK (Rec: 10/29/22 17:12 [facility] [id number]) Special Tests Shoulder Special Tests Lift-Off Rotator Cuff Test Results positive Elevation Impingement Test Results positive Drop Arm Rotator Cuff Test Results positve PT-OP-M Strength Start: 10/28/22 09:19 Freq: Status: Active Protocol: Document 10/29/22 09:50 SAK (Rec: 10/29/22 17:12 [facility] [id number]) Shoulder Strength Shoulder Manual Muscle Testing Left Flexion 4- Good- Extension 4- Good- Adduction 4 Good External Rotation 4- Good- Internal Rotation 4 Good PT-OP-N Lymphedema Start: 04/20/23 09:31 Freq: Status: Active Protocol: Document 07/15/23 13:18 SAK (Rec: 07/15/23 14:10 [facility] [id number]) Lymphedema Measurements Upper Extremity Circumference Measurements Left Affected MCP 19.2 cm Dorsum of Hand 22 cm Wrist 20.3 cm 5 cm From Wrist Crease 27.1 cm 10 cm From Wrist Crease 32.2 cm 15 cm From Wrist Crease 35.3 cm 20 cm From Wrist Crease 35.7 cm 25 cm From Wrist Crease 40.2 cm 30 cm From Wrist Crease 50.4 cm 35 cm From Wrist Crease 49.6 cm 40 cm From Wrist Crease 44.9 cm Elbow Joint 35.5 cm Right Affected MCP 19.3 cm Dorsum of Hand 20.8 cm Wrist 18.9 cm 5 cm From Wrist Crease 24 cm 10 cm From Wrist Crease 28.1 cm 15 cm From Wrist Crease 31.4 cm 20 cm From Wrist Crease 32.8 cm 25 cm From Wrist Crease 40.8 cm 30 cm From Wrist Crease 46.9 cm 35 cm From Wrist Crease 48 cm 40 cm From Wrist Crease 22.8 cm Elbow Joint 32.8 cm Lower Extremity Circumference Measurements Right Affected MT Heads 23 cm Mid-foot 23.2 cm Medial Malleolus 27 cm 10 cm From Medial Malleolus 26 cm 20 cm From Medial Malleolus 40.7 cm 30 cm From Medial Malleolus 45 cm 40 cm From Medial Malleolus 51.1 cm 50 cm From Medial Malleolus 65.1 cm 60 cm From Medial Malleolus 68.5 cm 70 cm From Medial Malleolus 71.5 cm Left Affected MT Heads 22.8 cm Mid-foot 24.6 cm Medial Malleolus 26.7 cm 10 cm From Medial Malleolus 26.3 cm 20 cm From Medial Malleolus 39 cm 30 cm From Medial Malleolus 44.3 cm 40 cm From Medial Malleolus 54.8 cm 50 cm From Medial Malleolus 67.5 cm 60 cm From Medial Malleolus 72.5 cm Knee Joint 51.6 cm - waist 117 cm hips 145 cm PT-OP-Q Treatments Start: 10/28/22 09:19 Freq: Status: Active Protocol: Document 07/19/23 13:18 SAK (Rec: 07/19/23 14:57 [facility] [id number]) Lymphedema Treatment Manual Lymphatic Drainage Location for iram LE, and trunkal edema Duration 60 Comments none to UE's due to donning new compression sleeve, left on PT-OP-R Modalities Start: 10/28/22 09:19 Freq: Status: Active Protocol: Document 07/19/23 13:18 SAK (Rec: 07/19/23 14:57 [facility] [id number]) Compression Pump Treatment Treatment Location Right Leg Pressure Amount (mmHg) (mmHG) 47 Inflation Time (Seconds) 30 Deflation Time (Seconds) 10 Treatment Duration (minutes) 45 Treatment Tolerance Good Right Arm Pressure Amount (mmHg) (mmHG) 40 Inflation Time (Seconds) 30 Deflation Time (Seconds) 10 Treatment Duration (minutes) 45 Treatment Tolerance Good left LE Pressure Amount (mmHg) (mmHG) 47 Inflation Time (Seconds) 30 Deflation Time (Seconds) 10 Treatment Duration (minutes) 45 Treatment Tolerance Good Left Arm Pressure Amount (mmHg) (mmHG) 40 Inflation Time (Seconds) 30 Deflation Time (Seconds) 10 Treatment Duration (minutes) 45 Treatment Tolerance Good PT-OP-T Assessment and Plan Start: 10/28/22 09:19 Freq: Status: Active Protocol: Document 07/19/23 13:18 SAK (Rec: 07/19/23 14:57 [facility] [id number]) Physical Therapy Assessment Goals Five Impairment compensatory movement patterns right UE Impairment overactivation of upper traps, postural dysfunction impacting right shoulder function Short Term Goal (STG) Patient will be able to self- correct posture and compensatory movements right shoulder with visual feedback of mirror STG Duration goal met Residential Goal (LTG) Patient will be able to perform HEP and do functional movements right UE with improved posture, without compensatory movements for improved right shoulder function 05/29/23: goal mostly met though patient not able to don compression sleeves on her own due to pain, weight of UE's LTG Duration 06/20/23 Four Impairment lymphedema (lipidema-type) iram UE's, LEs, abdomen Short Term Goal (STG) Patient to be instructed in all aspects of lymphedema care to include skin care, manual lymphatic drainage, compression, lymphedema exercises 06/16/23: goal met STG Duration 06/20/23 Slot Tag Inserter Goal (LTG) Patient circumferential measurements dec and stabilized (no inc or dec greater than 1 cm over the course of 1 week) and patient to obtain appropriate compression garments. Patient to be independent with all aspects of self-management for lymphedema/lipidema 06/16/23: no significant decrease in circumferentialmeasurements. LTG Duration 07/21/23 Three Impairment activity tolerance Impairment Quickdash UE disability index score60% Residential Goal (LTG) Improve QuickDash score to no greater than 30% as measure of improved activity tolerance with right UE 12/30/22: decreased to 39% 02/18/23: 43% today, more sore after no PT for 1 week. 04/20/23: 40% 05/29/23: LTG Duration 07/21/23 Two Impairment unable to reach overhead or behind her back with right shoulder Short Term Goal (STG) Patient will be able to reach use right UE to do her hair, and be able to pull pants up on right without increase in pain 12/30/22: goal progress 02/17/23: goal mostly met 04/06/23: goal met STG Duration goal met Slot Tag Inserter Goal (LTG) Patient will demonstrate full ROM with right shoulder to allow her to do all usual activities 04/20/23: goal progress LTG Duration 07/21/23 One Impairment pain right shoulder as high as 8/10 Short Term Goal (STG) decrease pain to no greater than 6/10 with usual activities 12/30/22: pain decreased to 5/10 02/17/23: goal met STG Duration goal met Slot Tag Inserter Goal (LTG) decrease pain to no greater than 3/10 with all usual activities 04/06/23: goal progress though variable ability, when feeling better patient with tendency to reach without thinking and reports inc in pain. Also, weight of arms from lymphedema appears to contribute to shoulder dysfunction; patient will be requesting order for lymphedema treatment from PCP 04/20/23: pain generally 3-5/10 , progress LTG Duration 07/21/23 Assessment Summary Assessment Patient spoke with rep at [facility] when ordered new garments. Hasn't contacted physician yet off lipedema website. Patient pump should come this week. Dec measurements with use of pump. Physical Therapy Plan Frequency and Duration Frequency of Treatment 2x/Week Duration of treatment (weeks) 12 Plan of Care Start Date 04/20/23 Plan of Care End Date 07/21/23 Therapeutic Interventions Therapeutic Interventions Aquatic Therapy,Home Exercise Program,Lymphedema Management, Manual Therapy,Patient/ Caregiver Education,Self-Care/ Home Management,Soft Tissue Mobilization,Taping, Therapeutic Activities, Therapeutic Exercises Modalities Cold Pack/Ice Massage,Electric Stimulation,Hot Packs, Infrared Therapy,Iontophoresis ,Ultrasound,Vasopneumatic Devices Next Visit Focus/Plan Next Note Type Treatment Note Next Visit Plan Instruct patient in use of sequential pneumatic pump when arrives, continue lipidema management. Encourage further medical consults with physician with knowledge of lipidema and other lymph and lipid disorders.
--- NOTE | 2023-07-21 14:54 | PT.OTN ---
Current Diagnoses Lymphedema, not elsewhere classified (07/21/23) Pain in right shoulder (07/21/23) Incomplete rotator cuff tear or rupture of right shoulder, not specified as traumatic (07/21/23) Superior glenoid labrum lesion of right shoulder, initial encounter (07/21/23) Physical Therapy Treatment Note PT-OP-A Visit Information Start: 10/28/22 09:19 Freq: Status: Active Protocol: Document 07/21/23 13:16 SAK (Rec: 07/21/23 14:54 [facility] [id number]) Out-Patient Physical Therapy Visit Information Visit Information Visit Type Treatment Note Visit Start Time 13:17 Visit Stop Time 14:38 Total Visit Minutes 85 Visit Number 56 Evaluation Information Evaluation Date 10/29/22 PT-OP-B Current Condition Start: 10/28/22 09:19 Freq: Status: Active Protocol: Document 03/03/23 09:48 SAK (Rec: 03/03/23 10:38 SAK [id number]) Current Condition History of Current Condition Onset Date 1 1/2 years Current Complaints right History of Current Condition gradual onset right shoulder pain unknown reason. Increases with trying to reach overhead, out to side, or behind her back; pain and tingling. If tries to sleep on back both arms go numb. Unable to wear compression sleeve left due to pain right shoulder; patient previously seen by this PT for right shoulder pain and felt at that time pain at least some due to overuse right UE. Goes back to the doctor after PT ( Clifford Diggs). 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 MRI right shoulder: incomplete RC tear, superior labral tear Prior Treatments and Tests Tylenol, ice, heat. Can't do UE ex at cardiac rehab, low tolerance for HEP previously instructed. Has TENS, but doesn't know how to use PT-OP-C Subjective Start: 10/28/22 09:19 Freq: Status: Active Protocol: Document 07/21/23 13:16 SAK (Rec: 07/21/23 14:54 [facility] [id number]) OP-PT Subjective Patient Comments Patient Comments Patient to PT today wearing Bolero compression garment UE s, capris LE's. Informed sequential pneumatic delivered , today's treatment will be for training. PT-OP-E Functional Tests Start: 10/28/22 09:19 Freq: Status: Active Protocol: Document 10/29/22 09:50 SAK (Rec: 10/29/22 17:12 [facility] [id number]) Functional Tests Apley's Scratch Test Action 1- Left anterior shoulder Action 1- Right posterior shoulder Action 2- Left T2 Action 2- Right lateral neck Action 3- Left lateral hip Action 3- Right T7 PT-OP-H Neuro Start: 10/28/22 09:19 Freq: Status: Active Protocol: Document 10/29/22 09:50 SAK (Rec: 10/29/22 17:12 [facility] [id number]) Sensation Evaluation Gross Sensation Gross Sensation Left UE Impaired,Right UE Impaired Sensation Description Paresthesia Location Details Left Arm Light Touch Intact/Normal PT-OP-J Posture/Palpation/Skin Start: 10/28/22 09:19 Freq: Status: Active Protocol: Document 10/29/22 09:50 SAK (Rec: 10/29/22 17:12 [facility] [id number]) Posture Evaluation Position Sitting Head/C-Spine Posture Forward Head T-Spine Posture Increased Kyphosis L-Spine Posture Increased Lordosis Shoulder Posture (L) Rounded,(R) Rounded Scapula Posture (L) Protracted,(R) Protracted Arm Posture (L) Internally Rotated,(R) Internally Rotated Pelvis Posture Anteriorly Tilted Palpation Assessment Location RC insertion Palpation Findings Tenderness Palpation Details entire joint line painful to palpation PT-OP-K Range of Motion Start: 10/28/22 09:19 Freq: Status: Active Protocol: Document 05/21/23 10:14 SP (Rec: 05/21/23 10:53 SP [id number]) Shoulder Goniometric Range of Motion Shoulder Left Shoulder ROM WFL No Testing Position Sitting Flexion 138 Extension 45 Abduction 100 External Rotation at 0 degrees Abduction 80 Comments seated L shld AROM: FF improved de deg ABD improved 25 dedeg Ext: improved 35 dedeg ER: improved 25 de deg Right Testing Position Sitting Flexion 104 Abduction 95 External Rotation at 0 degrees Abduction 62 Internal Rotation Behind Back (text) right SI Comments seated AROM R shld: FF improved 14 de>119 deg post manual Abd: less 5 de deg ER: less 18 de deg IR: improved from R buttocks: right beltline/ SI, PT-OP-L Special Tests Start: 10/28/22 09:19 Freq: Status: Active Protocol: Document 10/29/22 09:50 SAK (Rec: 10/29/22 17:12 [facility] [id number]) Special Tests Shoulder Special Tests Lift-Off Rotator Cuff Test Results positive Elevation Impingement Test Results positive Drop Arm Rotator Cuff Test Results positve PT-OP-M Strength Start: 10/28/22 09:19 Freq: Status: Active Protocol: Document 10/29/22 09:50 SAK (Rec: 10/29/22 17:12 [facility] [id number]) Shoulder Strength Shoulder Manual Muscle Testing Left Flexion 4- Good- Extension 4- Good- Adduction 4 Good External Rotation 4- Good- Internal Rotation 4 Good PT-OP-N Lymphedema Start: 04/20/23 09:31 Freq: Status: Active Protocol: Document 07/15/23 13:18 SAK (Rec: 07/15/23 14:10 [facility] [id number]) Lymphedema Measurements Upper Extremity Circumference Measurements Left Affected MCP 19.2 cm Dorsum of Hand 22 cm Wrist 20.3 cm 5 cm From Wrist Crease 27.1 cm 10 cm From Wrist Crease 32.2 cm 15 cm From Wrist Crease 35.3 cm 20 cm From Wrist Crease 35.7 cm 25 cm From Wrist Crease 40.2 cm 30 cm From Wrist Crease 50.4 cm 35 cm From Wrist Crease 49.6 cm 40 cm From Wrist Crease 44.9 cm Elbow Joint 35.5 cm Right Affected MCP 19.3 cm Dorsum of Hand 20.8 cm Wrist 18.9 cm 5 cm From Wrist Crease 24 cm 10 cm From Wrist Crease 28.1 cm 15 cm From Wrist Crease 31.4 cm 20 cm From Wrist Crease 32.8 cm 25 cm From Wrist Crease 40.8 cm 30 cm From Wrist Crease 46.9 cm 35 cm From Wrist Crease 48 cm 40 cm From Wrist Crease 22.8 cm Elbow Joint 32.8 cm Lower Extremity Circumference Measurements Right Affected MT Heads 23 cm Mid-foot 23.2 cm Medial Malleolus 27 cm 10 cm From Medial Malleolus 26 cm 20 cm From Medial Malleolus 40.7 cm 30 cm From Medial Malleolus 45 cm 40 cm From Medial Malleolus 51.1 cm 50 cm From Medial Malleolus 65.1 cm 60 cm From Medial Malleolus 68.5 cm 70 cm From Medial Malleolus 71.5 cm Left Affected MT Heads 22.8 cm Mid-foot 24.6 cm Medial Malleolus 26.7 cm 10 cm From Medial Malleolus 26.3 cm 20 cm From Medial Malleolus 39 cm 30 cm From Medial Malleolus 44.3 cm 40 cm From Medial Malleolus 54.8 cm 50 cm From Medial Malleolus 67.5 cm 60 cm From Medial Malleolus 72.5 cm Knee Joint 51.6 cm - waist 117 cm hips 145 cm PT-OP-Q Treatments Start: 10/28/22 09:19 Freq: Status: Active Protocol: Document 07/21/23 13:16 [facility] (Rec: 07/21/23 14:54 [facility] [id number]) Lymphedema Treatment Manual Lymphatic Drainage Comments use of Airos 6 pump after instruction Other Other Instruction in set-up and use of Airos 6 sequential lymphedema pump for home use, discussed use schedule. Also discussed further compression options. Patient demonstrated good understanding of set-up and use of pump, appears safe for home use. PT-OP-R Modalities Start: 10/28/22 09:19 Freq: Status: Active Protocol: Document 07/19/23 13:18 [facility] (Rec: 07/19/23 14:57 [facility] [id number]) Compression Pump Treatment Treatment Location Right Leg Pressure Amount (mmHg) (mmHG) 47 Inflation Time (Seconds) 30 Deflation Time (Seconds) 10 Treatment Duration (minutes) 45 Treatment Tolerance Good Right Arm Pressure Amount (mmHg) (mmHG) 40 Inflation Time (Seconds) 30 Deflation Time (Seconds) 10 Treatment Duration (minutes) 45 Treatment Tolerance Good left LE Pressure Amount (mmHg) (mmHG) 47 Inflation Time (Seconds) 30 Deflation Time (Seconds) 10 Treatment Duration (minutes) 45 Treatment Tolerance Good Left Arm Pressure Amount (mmHg) (mmHG) 40 Inflation Time (Seconds) 30 Deflation Time (Seconds) 10 Treatment Duration (minutes) 45 Treatment Tolerance Good PT-OP-T Assessment and Plan Start: 10/28/22 09:19 Freq: Status: Active Protocol: Document 07/21/23 13:16 [facility] (Rec: 07/21/23 14:54 [facility] [id number]) Physical Therapy Assessment Goals Five Impairment compensatory movement patterns right UE Impairment overactivation of upper traps, postural dysfunction impacting right shoulder function Short Term Goal (STG) Patient will be able to self- correct posture and compensatory movements right shoulder with visual feedback of mirror STG Duration goal met [facility] Goal (LTG) Patient will be able to perform HEP and do functional movements right UE with improved posture, without compensatory movements for improved right shoulder function 05/29/23: goal mostly met though patient not able to don compression sleeves on her own due to pain, weight of UE's LTG Duration 06/20/23 Four Impairment lymphedema (lipidema-type) iram UE's, LEs, abdomen Short Term Goal (STG) Patient to be instructed in all aspects of lymphedema care to include skin care, manual lymphatic drainage, compression, lymphedema exercises 06/16/23: goal met STG Duration 06/20/23 [facility] Goal (LTG) Patient circumferential measurements dec and stabilized (no inc or dec greater than 1 cm over the course of 1 week) and patient to obtain appropriate compression garments. Patient to be independent with all aspects of self-management for lymphedema/lipidema 06/16/23: no significant decrease in circumferentialmeasurements. LTG Duration 07/21/23 Three Impairment activity tolerance Impairment Quickdash UE disability index score60% [employer] Goal (LTG) Improve QuickDash score to no greater than 30% as measure of improved activity tolerance with right UE 12/30/22: decreased to 39% 02/18/23: 43% today, more sore after no PT for 1 week. 04/20/23: 40% 05/29/23: LTG Duration 07/21/23 Two Impairment unable to reach overhead or behind her back with right shoulder Short Term Goal (STG) Patient will be able to reach use right UE to do her hair, and be able to pull pants up on right without increase in pain 12/30/22: goal progress 02/17/23: goal mostly met 04/06/23: goal met STG Duration goal met [employer]ad Goal (LTG) Patient will demonstrate full ROM with right shoulder to allow her to do all usual activities 04/20/23: goal progress LTG Duration 07/21/23 One Impairment pain right shoulder as high as 8/10 Short Term Goal (STG) decrease pain to no greater than 6/10 with usual activities 12/30/22: pain decreased to 5/10 02/17/23: goal met STG Duration goal met Autocad Goal (LTG) decrease pain to no greater than 3/10 with all usual activities 04/06/23: goal progress though variable ability, when feeling better patient with tendency to reach without thinking and reports inc in pain. Also, weight of arms from lymphedema appears to contribute to shoulder dysfunction; patient will be requesting order for lymphedema treatment from PCP 04/20/23: pain generally 3-5/10 , progress LTG Duration 07/21/23 Assessment Summary Assessment Patient demonstrated good understanding of set-up and operation of Airos 6 pneumatic compression pump for home use . Sent home with pump. Also given further physician information; lipedema specialists in [place] and [place] for patient to consult . Physical Therapy Plan Frequency and Duration Frequency of Treatment 2x/Week Duration of treatment (weeks) 12 Plan of Care Start Date 04/20/23 Plan of Care End Date 07/21/23 Therapeutic Interventions Therapeutic Interventions Aquatic Therapy,Home Exercise Program,Lymphedema Management, Manual Therapy,Patient/ Caregiver Education,Self-Care/ Home Management,Soft Tissue Mobilization,Taping, Therapeutic Activities, Therapeutic Exercises Modalities Cold Pack/Ice Massage,Electric Stimulation,Hot Packs, Infrared Therapy,Iontophoresis ,Ultrasound,Vasopneumatic Devices Next Visit Focus/Plan Next Note Type Treatment Note Next Visit Plan Assess response to use of sequential pneumatic pump in the home, problem solve any further issues with lipedema management. Consider discharge from PT.
--- NOTE | 2023-07-21 15:09 | PT.OTRE ---
Current Diagnoses Lymphedema, not elsewhere classified (07/21/23) Pain in right shoulder (07/21/23) Incomplete rotator cuff tear or rupture of right shoulder, not specified as traumatic (07/21/23) Superior glenoid labrum lesion of right shoulder, initial encounter (07/21/23) Past Medical History (Last Reviewed 06/29/23 @ 09:49 by Jerrell Bonner MD) Anasarca Arthritis Asthma Chest pain Chronic back pain Chronic renal insufficiency Corneal abrasion of both eyes Coronary artery disease Depression Diabetes Dorsalgia Dry eye syndrome Hyperlipidemia Hypertension Hypokalemia Lumbar radiculopathy Lumbar spondylosis Migraine GARCIA (nonalcoholic steatohepatitis) Osteoarthritis Reactive airway disease Sarcoidosis (~1996) Sciatica of right side Seasonal allergies Sleep apnea Spinal stenosis of lumbar region with radiculopathy Spondylolisthesis Vitamin B12 deficiency Surgical History (Last Reviewed 06/29/23 @ 09:49 by Jerrell Bonner MD) History of 2 sections History of bilateral cataract extraction (2015) History of colonoscopy (08/16/17) Hx of appendectomy Hx of cholecystectomy Hx of heart artery stent (02/24/19) Hx of laminectomy (11/23/16) Visit Care Team Role Provider Type Slade Mccann MD Primary Care Provider Physician Specialty: Family Practice Address: [address] [place] [address], [id number] Email: [email or web address] Attending Provider Referring Provider Specialty: Address: Phone: Fax: Email: Physical Therapy Re-Evaluation PT-OP-A Visit Information Start: 10/28/22 09:19 Freq: Status: Active Protocol: Document 07/21/23 13:16 SAK (Rec: 07/21/23 14:54 SAK [id number]) Out-Patient Physical Therapy Visit Information Visit Information Visit Type Treatment Note Visit Start Time 13:17 Visit Stop Time 14:38 Total Visit Minutes 85 Visit Number 56 Evaluation Information Evaluation Date 10/29/22 PT-OP-B Current Condition Start: 10/28/22 09:19 Freq: Status: Active Protocol: Document 03/03/23 09:48 SAK (Rec: 03/03/23 10:38 SAK [id number]) Current Condition History of Current Condition Onset Date 1 1/2 years Current Complaints right History of Current Condition gradual onset right shoulder pain unknown reason. Increases with trying to reach overhead, out to side, or behind her back; pain and tingling. If tries to sleep on back both arms go numb. Unable to wear compression sleeve left due to pain right shoulder; patient previously seen by this PT for right shoulder pain and felt at that time pain at least some due to overuse right UE. Goes back to the doctor after PT ( Clifford Diggs). 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 Saw manager baby. MRI right shoulder: incomplete RC tear, superior labral tear Prior Treatments and Tests Tylenol, ice, heat. Can't do UE ex at cardiac rehab, low tolerance for HEP previously instructed. Has TENS, but doesn't know how to use PT-OP-C Subjective Start: 10/28/22 09:19 Freq: Status: Active Protocol: Document 07/21/23 13:16 [facility] (Rec: 07/21/23 14:54 [facility] [id number]) OP-PT Subjective Patient Comments Patient Comments Patient to PT today wearing Bolero compression garment UE s, capris LE's. Informed sequential pneumatic delivered , today's treatment will be for training. PT-OP-E Functional Tests Start: 10/28/22 09:19 Freq: Status: Active Protocol: Document 10/29/22 09:50 SAK (Rec: 10/29/22 17:12 [facility] [id number]) Functional Tests Apley's Scratch Test Action 1: The subject is instructed to touch the opposite shoulder with his/her hand. This motion checks Glenohumeral adduction, internal rotation , horizontal adduction and scapular protraction Action 2: The subject is instructed to place his/her arm overhead and reach behind the neck to touch his/her upper back. This motion checks Glenohumeral abduction, external rotation and scapular upward rotation and elevation. Action 3: The subject puts his/her hand on the lower back and reaches upward as far as possible. This motion checks glenohumeral adduction, internal rotation and scapular retraction with downward rotation Action 1- Left anterior shoulder Action 1- Right posterior shoulder Action 2- Left T2 Action 2- Right lateral neck Action 3- Left lateral hip Action 3- Right T7 PT-OP-H Neuro Start: 10/28/22 09:19 Freq: Status: Active Protocol: Document 10/29/22 09:50 SAK (Rec: 10/29/22 17:12 [facility] [id number]) Sensation Evaluation Gross Sensation Gross Sensation Left UE Impaired,Right UE Impaired Sensation Description Paresthesia Location Details Left Arm Light Touch Intact/Normal PT-OP-J Posture/Palpation/Skin Start: 10/28/22 09:19 Freq: Status: Active Protocol: Document 10/29/22 09:50 SAK (Rec: 10/29/22 17:12 [facility] [id number]) Posture Evaluation Position Sitting Head/C-Spine Posture Forward Head T-Spine Posture Increased Kyphosis L-Spine Posture Increased Lordosis Shoulder Posture (L) Rounded,(R) Rounded Scapula Posture (L) Protracted,(R) Protracted Arm Posture (L) Internally Rotated,(R) Internally Rotated Pelvis Posture Anteriorly Tilted Palpation Assessment Location RC insertion Palpation Findings Tenderness Palpation Details entire joint line painful to palpation PT-OP-K Range of Motion Start: 10/28/22 09:19 Freq: Status: Active Protocol: Document 05/21/23 10:14 SP (Rec: 05/21/23 10:53 SP [id number]) Shoulder Goniometric Range of Motion Shoulder Measured in Degrees Left Shoulder ROM WFL No Testing Position Sitting Flexion 138 Extension 45 Abduction 100 External Rotation at 0 degrees Abduction 80 Comments seated L shld AROM: FF improved de deg ABD improved 25 dedeg Ext: improved 35 dedeg ER: improved 25 de deg Right Testing Position Sitting Flexion 104 Abduction 95 External Rotation at 0 degrees Abduction 62 Internal Rotation Behind Back (text) right SI Comments seated AROM R shld: FF improved 14 de>119 deg post manual Abd: less 5 de deg ER: less 18 de deg IR: improved from R buttocks: right beltline/ SI, PT-OP-L Special Tests Start: 10/28/22 09:19 Freq: Status: Active Protocol: Document 10/29/22 09:50 SAK (Rec: 10/29/22 17:12 [facility] [id number]) Special Tests Shoulder Special Tests Lift-Off Rotator Cuff Test Results positive Elevation Impingement Test Results positive Drop Arm Rotator Cuff Test Results positve PT-OP-M Strength Start: 10/28/22 09:19 Freq: Status: Active Protocol: Document 10/29/22 09:50 [facility]AK (Rec: 10/29/22 17:12 [facility] [id number]) Shoulder Strength Shoulder Manual Muscle Testing Left Flexion 4- Good- Extension 4- Good- Adduction 4 Good External Rotation 4- Good- Internal Rotation 4 Good PT-OP-N Lymphedema Start: 04/20/23 09:31 Freq: Status: Active Protocol: Document 07/15/23 13:18 [facility] (Rec: 07/15/23 14:10 [facility] [id number]) Lymphedema Measurements Upper Extremity Circumference Measurements Left Affected MCP 19.2 cm Dorsum of Hand 22 cm Wrist 20.3 cm 5 cm From Wrist Crease 27.1 cm 10 cm From Wrist Crease 32.2 cm 15 cm From Wrist Crease 35.3 cm 20 cm From Wrist Crease 35.7 cm 25 cm From Wrist Crease 40.2 cm 30 cm From Wrist Crease 50.4 cm 35 cm From Wrist Crease 49.6 cm 40 cm From Wrist Crease 44.9 cm Elbow Joint 35.5 cm Right Affected MCP 19.3 cm Dorsum of Hand 20.8 cm Wrist 18.9 cm 5 cm From Wrist Crease 24 cm 10 cm From Wrist Crease 28.1 cm 15 cm From Wrist Crease 31.4 cm 20 cm From Wrist Crease 32.8 cm 25 cm From Wrist Crease 40.8 cm 30 cm From Wrist Crease 46.9 cm 35 cm From Wrist Crease 48 cm 40 cm From Wrist Crease 22.8 cm Elbow Joint 32.8 cm Lower Extremity Circumference Measurements Right Affected MT Heads 23 cm Mid-foot 23.2 cm Medial Malleolus 27 cm 10 cm From Medial Malleolus 26 cm 20 cm From Medial Malleolus 40.7 cm 30 cm From Medial Malleolus 45 cm 40 cm From Medial Malleolus 51.1 cm 50 cm From Medial Malleolus 65.1 cm 60 cm From Medial Malleolus 68.5 cm 70 cm From Medial Malleolus 71.5 cm Left Affected MT Heads 22.8 cm Mid-foot 24.6 cm Medial Malleolus 26.7 cm 10 cm From Medial Malleolus 26.3 cm 20 cm From Medial Malleolus 39 cm 30 cm From Medial Malleolus 44.3 cm 40 cm From Medial Malleolus 54.8 cm 50 cm From Medial Malleolus 67.5 cm 60 cm From Medial Malleolus 72.5 cm Knee Joint 51.6 cm - waist 117 cm hips 145 cm PT-OP-Q Treatments Start: 10/28/22 09:19 Freq: Status: Active Protocol: Document 07/21/23 13:16 [facility] (Rec: 07/21/23 14:54 [facility] [id number]) Lymphedema Treatment Manual Lymphatic Drainage Comments use of Airos 6 pump after instruction Other Other Instruction in set-up and use of Airos 6 sequential lymphedema pump for home use, discussed use schedule. Also discussed further compression options. Patient demonstrated good understanding of set-up and use of pump, appears safe for home use. PT-OP-R Modalities Start: 10/28/22 09:19 Freq: Status: Active Protocol: Document 07/19/23 13:18 [facility]AK (Rec: 07/19/23 14:57 [facility] [id number]) Compression Pump Treatment Treatment Location Right Leg Pressure Amount (mmHg) (mmHG) 47 Inflation Time (Seconds) 30 Deflation Time (Seconds) 10 Treatment Duration (minutes) 45 Treatment Tolerance Good Right Arm Pressure Amount (mmHg) (mmHG) 40 Inflation Time (Seconds) 30 Deflation Time (Seconds) 10 Treatment Duration (minutes) 45 Treatment Tolerance Good left LE Pressure Amount (mmHg) (mmHG) 47 Inflation Time (Seconds) 30 Deflation Time (Seconds) 10 Treatment Duration (minutes) 45 Treatment Tolerance Good Left Arm Pressure Amount (mmHg) (mmHG) 40 Inflation Time (Seconds) 30 Deflation Time (Seconds) 10 Treatment Duration (minutes) 45 Treatment Tolerance Good PT-OP-T Assessment and Plan Start: 10/28/22 09:19 Freq: Status: Active Protocol: Document 07/21/23 13:16 [facility] (Rec: 07/21/23 14:54 [facility] [id number]) Physical Therapy Assessment Goals Five Impairment compensatory movement patterns right UE Impairment overactivation of upper traps, postural dysfunction impacting right shoulder function Short Term Goal (STG) Patient will be able to self- correct posture and compensatory movements right shoulder with visual feedback of mirror STG Duration goal met Mcfp Goal (LTG) Patient will be able to perform HEP and do functional movements right UE with improved posture, without compensatory movements for improved right shoulder function 05/29/23: goal mostly met though patient not able to don compression sleeves on her own due to pain, weight of UE's 07/21/23: goal mostly met LTG Duration 08/26/23 Four Impairment lymphedema (lipidema-type) iram UE's, LEs, abdomen Short Term Goal (STG) Patient to be instructed in all aspects of lymphedema care to include skin care, manual lymphatic drainage, compression, lymphedema exercises 06/16/23: goal met STG Duration goal met Lace Machine Operator Goal (LTG) Patient circumferential measurements dec and stabilized (no inc or dec greater than 1 cm over the course of 1 week) and patient to obtain appropriate compression garments. Patient to be independent with all aspects of self-management for lymphedema/lipidema 06/16/23: no significant decrease in circumferentialmeasurement 07/21/23: measurements mostly stable with use of compression garments, obtained compression pump today. LTG Duration 08/27/23 Three Impairment activity tolerance Impairment Quickdash UE disability index score60% Mcfp Goal (LTG) Improve QuickDash score to no greater than 30% as measure of improved activity tolerance with right UE 12/30/22: decreased to 39% 02/18/23: 43% today, more sore after no PT for 1 week. 04/20/23: 40% 05/29/23: 07/21/23: not reassessed this date; focus on lipedema LTG Duration 08/27/23 Two Impairment unable to reach overhead or behind her back with right shoulder Short Term Goal (STG) Patient will be able to reach use right UE to do her hair, and be able to pull pants up on right without increase in pain 12/30/22: goal progress 02/17/23: goal mostly met 04/06/23: goal met STG Duration goal met Lace Machine Operator Goal (LTG) Patient will demonstrate full ROM with right shoulder to allow her to do all usual activities 04/20/23: goal progress 07/21/23: good goal progress, not fully assessed today due to focus on lipedema LTG Duration 07/21/23 One Impairment pain right shoulder as high as 8/10 Short Term Goal (STG) decrease pain to no greater than 6/10 with usual activities 12/30/22: pain decreased to 5/10 02/17/23: goal met STG Duration goal met Lace Machine Operator Goal (LTG) decrease pain to no greater than 3/10 with all usual activities 04/06/23: goal progress though variable ability, when feeling better patient with tendency to reach without thinking and reports inc in pain. Also, weight of arms from lymphedema appears to contribute to shoulder dysfunction; patient will be requesting order for lymphedema treatment from PCP 04/20/23: pain generally 3-5/10 , progress 07/21/23: not assessed due to focus on lipedema today LTG Duration 08/27/23 Assessment Summary Assessment Patient demonstrated good understanding of set-up and operation of Airos 6 pneumatic compression pump for home use . Sent home with pump. Also given further physician information; lipedema specialists in [place] and [place] for patient to consult . Physical Therapy Plan Frequency and Duration Frequency of Treatment 1x/Week Duration of treatment (weeks) 5 Plan of Care Start Date 07/21/23 Plan of Care End Date 08/26/23 Therapeutic Interventions Therapeutic Interventions Aquatic Therapy,Home Exercise Program,Lymphedema Management, Manual Therapy,Patient/ Caregiver Education,Self-Care/ Home Management,Soft Tissue Mobilization,Taping, Therapeutic Activities, Therapeutic Exercises Modalities Cold Pack/Ice Massage,Electric Stimulation,Hot Packs, Infrared Therapy,Iontophoresis ,Ultrasound,Vasopneumatic Devices Next Visit Focus/Plan Next Note Type Treatment Note Next Visit Plan Assess response to use of sequential pneumatic pump in the home, problem solve any further issues with lipedema management. Consider discharge from PT.
--- NOTE | 2023-08-17 16:17 | PT.OTN ---
Current Diagnoses Lymphedema, not elsewhere classified (08/17/23) Pain in right shoulder (08/17/23) Incomplete rotator cuff tear or rupture of right shoulder, not specified as traumatic (08/17/23) Superior glenoid labrum lesion of right shoulder, initial encounter (08/17/23) Physical Therapy Treatment Note PT-OP-A Visit Information Start: 10/28/22 09:19 Freq: Status: Active Protocol: Document 08/17/23 09:35 SAK (Rec: 08/17/23 09:46 [facility] [id number]) Out-Patient Physical Therapy Visit Information Visit Information Visit Type Treatment Note Visit Start Time 09:35 Visit Stop Time 11:00 Total Visit Minutes 85 Visit Number 56 PT-OP-B Current Condition Start: 10/28/22 09:19 Freq: Status: Active Protocol: Document 03/03/23 09:48 SAK (Rec: 03/03/23 10:38 SAK [id number]) Current Condition History of Current Condition Onset Date 1 1/2 years Current Complaints right History of Current Condition gradual onset right shoulder pain unknown reason. Increases with trying to reach overhead, out to side, or behind her back; pain and tingling. If tries to sleep on back both arms go numb. Unable to wear compression sleeve left due to pain right shoulder; patient previously seen by this PT for right shoulder pain and felt at that time pain at least some due to overuse right UE. Goes back to the doctor after PT ( Clifford Diggs). 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 MRI right shoulder: incomplete RC tear, superior labral tear Prior Treatments and Tests Tylenol, ice, heat. Can't do UE ex at cardiac rehab, low tolerance for HEP previously instructed. Has TENS, but doesn't know how to use PT-OP-C Subjective Start: 10/28/22 09:19 Freq: Status: Active Protocol: Document 08/17/23 09:35 SAK (Rec: 08/17/23 09:46 [facility] [id number]) OP-PT Subjective Patient Comments Patient Comments States she feels like her legs are getting bigger, is going to have to buy leg component to attach to pump. Had MRI for her back, hasn't gotten results back yet. WEaring compression consistently. Thinks arm may be a little smaller. Using pump, though has difficulty being able to do iram at the same time. PT-OP-E Functional Tests Start: 10/28/22 09:19 Freq: Status: Active Protocol: Document 10/29/22 09:50 SAK (Rec: 10/29/22 17:12 [facility] [id number]) Functional Tests Apley's Scratch Test Action 1- Left anterior shoulder Action 1- Right posterior shoulder Action 2- Left T2 Action 2- Right lateral neck Action 3- Left lateral hip Action 3- Right T7 PT-OP-H Neuro Start: 10/28/22 09:19 Freq: Status: Active Protocol: Document 10/29/22 09:50 SAK (Rec: 10/29/22 17:12 [facility] [id number]) Sensation Evaluation Gross Sensation Gross Sensation Left UE Impaired,Right UE Impaired Sensation Description Paresthesia Location Details Left Arm Light Touch Intact/Normal PT-OP-J Posture/Palpation/Skin Start: 10/28/22 09:19 Freq: Status: Active Protocol: Document 10/29/22 09:50 SAK (Rec: 10/29/22 17:12 [facility] [id number]) Posture Evaluation Position Sitting Head/C-Spine Posture Forward Head T-Spine Posture Increased Kyphosis L-Spine Posture Increased Lordosis Shoulder Posture (L) Rounded,(R) Rounded Scapula Posture (L) Protracted,(R) Protracted Arm Posture (L) Internally Rotated,(R) Internally Rotated Pelvis Posture Anteriorly Tilted Palpation Assessment Location RC insertion Palpation Findings Tenderness Palpation Details entire joint line painful to palpation PT-OP-K Range of Motion Start: 10/28/22 09:19 Freq: Status: Active Protocol: Document 05/21/23 10:14 SP (Rec: 05/21/23 10:53 SP [id number]) Shoulder Goniometric Range of Motion Shoulder Left Shoulder ROM WFL No Testing Position Sitting Flexion 138 Extension 45 Abduction 100 External Rotation at 0 degrees Abduction 80 Comments seated L shld AROM: FF improved de deg ABD improved 25 dedeg Ext: improved 35 dedeg ER: improved 25 de deg Right Testing Position Sitting Flexion 104 Abduction 95 External Rotation at 0 degrees Abduction 62 Internal Rotation Behind Back (text) right SI Comments seated AROM R shld: FF improved 14 de>119 deg post manual Abd: less 5 de deg ER: less 18 de deg IR: improved from R buttocks: right beltline/ SI, PT-OP-L Special Tests Start: 10/28/22 09:19 Freq: Status: Active Protocol: Document 10/29/22 09:50 SAK (Rec: 10/29/22 17:12 SAK [id number]) Special Tests Shoulder Special Tests Lift-Off Rotator Cuff Test Results positive Elevation Impingement Test Results positive Drop Arm Rotator Cuff Test Results positve PT-OP-M Strength Start: 10/28/22 09:19 Freq: Status: Active Protocol: Document 10/29/22 09:50 SAK (Rec: 10/29/22 17:12 [facility] [id number]) Shoulder Strength Shoulder Manual Muscle Testing Left Flexion 4- Good- Extension 4- Good- Adduction 4 Good External Rotation 4- Good- Internal Rotation 4 Good PT-OP-N Lymphedema Start: 04/20/23 09:31 Freq: Status: Active Protocol: Document 08/17/23 09:35 SAK (Rec: 08/17/23 10:18 SAK [id number]) Lymphedema Measurements Upper Extremity Circumference Measurements Left Affected MCP 19 cm Dorsum of Hand 21.5 cm Wrist 19.8 cm 5 cm From Wrist Crease 25.3 cm 10 cm From Wrist Crease 29 cm 15 cm From Wrist Crease 33.9 cm 20 cm From Wrist Crease 36.4 cm 25 cm From Wrist Crease 38.9 cm 30 cm From Wrist Crease 49.4 cm 35 cm From Wrist Crease 49.6 cm 40 cm From Wrist Crease 46 cm Elbow Joint 34.9 cm Right Affected MCP 18.8 cm Dorsum of Hand 20.8 cm Wrist 17.9 cm 5 cm From Wrist Crease 24 cm 10 cm From Wrist Crease 29 cm 15 cm From Wrist Crease 31.4 cm 20 cm From Wrist Crease 32.4 cm 25 cm From Wrist Crease 38.9 cm 30 cm From Wrist Crease 45.7 cm 35 cm From Wrist Crease 47.1 cm 40 cm From Wrist Crease 45.8 cm Elbow Joint 32 cm Lower Extremity Circumference Measurements Right Affected MT Heads 22.8 cm Mid-foot 23.2 cm Medial Malleolus 27 cm 10 cm From Medial Malleolus 25.7 cm 20 cm From Medial Malleolus 39.3 cm 30 cm From Medial Malleolus 44.8 cm 40 cm From Medial Malleolus 52.8 cm 50 cm From Medial Malleolus 65.5 cm 60 cm From Medial Malleolus 76.5 cm 70 cm From Medial Malleolus 77 cm Knee Joint 50.5 cm Left Affected MT Heads 22.8 cm Mid-foot 24 cm Medial Malleolus 26 cm 10 cm From Medial Malleolus 25.8 cm 20 cm From Medial Malleolus 37.5 cm 30 cm From Medial Malleolus 43 cm 40 cm From Medial Malleolus 51.5 cm 50 cm From Medial Malleolus 65 cm 60 cm From Medial Malleolus 73 cm Knee Joint 47.2 cm - 114 143 PT-OP-Q Treatments Start: 10/28/22 09:19 Freq: Status: Active Protocol: Document 08/17/23 09:35 SAK (Rec: 08/17/23 16:16 SAK [id number]) Lymphedema Treatment Manual Lymphatic Drainage Location for iram LE, and trunkal edema Duration 60 Patient Education Compression Garments further discussion of options Other Discussion of use of pump, may be able to connect both arm components to machine to treat ; call company for problem solving. Other Other circumferential measurements PT-OP-R Modalities Start: 10/28/22 09:19 Freq: Status: Active Protocol: Document 08/17/23 09:35 SAK (Rec: 08/17/23 16:16 SAK [id number]) Compression Pump Treatment Treatment Location Right Leg Pressure Amount (mmHg) (mmHG) 47 Inflation Time (Seconds) 30 Deflation Time (Seconds) 10 Treatment Duration (minutes) 45 Treatment Tolerance Good Treatment Comments arm pump broken left LE Pressure Amount (mmHg) (mmHG) 47 Inflation Time (Seconds) 30 Deflation Time (Seconds) 10 Treatment Duration (minutes) 45 Treatment Tolerance Good Left Arm Treatment Comments arm pump broken PT-OP-T Assessment and Plan Start: 10/28/22 09:19 Freq: Status: Active Protocol: Document 08/17/23 09:35 SAK (Rec: 08/17/23 09:46 SAK [id number]) Physical Therapy Assessment Goals Five Impairment compensatory movement patterns right UE Impairment overactivation of upper traps, postural dysfunction impacting right shoulder function Short Term Goal (STG) Patient will be able to self- correct posture and compensatory movements right shoulder with visual feedback of mirror STG Duration goal met Shelter Goal (LTG) Patient will be able to perform HEP and do functional movements right UE with improved posture, without compensatory movements for improved right shoulder function 05/29/23: goal mostly met though patient not able to don compression sleeves on her own due to pain, weight of UE's 07/21/23: goal mostly met LTG Duration 08/26/23 Four Impairment lymphedema (lipidema-type) iram UE's, LEs, abdomen Short Term Goal (STG) Patient to be instructed in all aspects of lymphedema care to include skin care, manual lymphatic drainage, compression, lymphedema exercises 06/16/23: goal met STG Duration goal met 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 Patient to be independent with all aspects of self-management for lymphedema/lipidema 06/16/23: no significant decrease in circumferentialmeasurement 07/21/23: measurements mostly stable with use of compression garments, obtained compression pump today. LTG Duration 08/27/23 Three Impairment activity tolerance Impairment Quickdash UE disability index score60% Shelter Goal (LTG) Improve QuickDash score to no greater than 30% as measure of improved activity tolerance with right UE 12/30/22: decreased to 39% 02/18/23: 43% today, more sore after no PT for 1 week. 04/20/23: 40% 05/29/23: 07/21/23: not reassessed this date; focus on lipedema LTG Duration 08/27/23 Two Impairment unable to reach overhead or behind her back with right shoulder Short Term Goal (STG) Patient will be able to reach use right UE to do her hair, and be able to pull pants up on right without increase in pain 12/30/22: goal progress 02/17/23: goal mostly met 04/06/23: goal met STG Duration goal met Automobile [employer] As[employer]er Goal (LTG) Patient will demonstrate full ROM with right shoulder to allow her to do all usual activities 04/20/23: goal progress 07/21/23: good goal progress, not fully assessed today due to focus on lipedema LTG Duration 07/21/23 One Impairment pain right shoulder as high as 8/10 Short Term Goal (STG) decrease pain to no greater than 6/10 with usual activities 12/30/22: pain decreased to 5/10 02/17/23: goal met STG Duration goal met Shelter Goal (LTG) decrease pain to no greater than 3/10 with all usual activities 04/06/23: goal progress though variable ability, when feeling better patient with tendency to reach without thinking and reports inc in pain. Also, weight of arms from lymphedema appears to contribute to shoulder dysfunction; patient will be requesting order for lymphedema treatment from PCP 04/20/23: pain generally 3-5/10 , progress 07/21/23: not assessed due to focus on lipedema today LTG Duration 08/27/23 Assessment Summary Assessment Patient measurements left UE and iram LE's showed mostly some decreases in some areas and but some increases in others, lymph fluid not clearing well from LE's and UE 's. Waiting to see her primary care physician to referral to lipedema specialist but PT encouraged patient call to see if can get referral as likely will take a long time to get scheduled, patient in agreement. Physical Therapy Plan Frequency and Duration Frequency of Treatment 1x/Week Duration of treatment (weeks) 5 Plan of Care Start Date 07/21/23 Plan of Care End Date 08/26/23 Therapeutic Interventions Therapeutic Interventions Aquatic Therapy,Home Exercise Program,Lymphedema Management, Manual Therapy,Patient/ Caregiver Education,Self-Care/ Home Management,Soft Tissue Mobilization,Taping, Therapeutic Activities, Therapeutic Exercises Modalities Cold Pack/Ice Massage,Electric Stimulation,Hot Packs, Infrared Therapy,Iontophoresis ,Ultrasound,Vasopneumatic Devices Next Visit Focus/Plan Next Note Type Treatment Note Next Visit Plan Continue 2 further treatments for lipedema management.
--- NOTE | 2023-08-23 12:13 | PT.OTN ---
Current Diagnoses Lymphedema, not elsewhere classified (08/23/23) Pain in right shoulder (08/23/23) Incomplete rotator cuff tear or rupture of right shoulder, not specified as traumatic (08/23/23) Superior glenoid labrum lesion of right shoulder, initial encounter (08/23/23) Physical Therapy Treatment Note PT-OP-A Visit Information Start: 10/28/22 09:19 Freq: Status: Active Protocol: Document 08/23/23 10:30 SAK (Rec: 08/23/23 10:47 [facility] [id number]) Out-Patient Physical Therapy Visit Information Visit Information Visit Type Treatment Note Visit Start Time 10:32 Visit Stop Time 12:03 Total Visit Minutes 91 Visit Number 58 PT-OP-B Current Condition Start: 10/28/22 09:19 Freq: Status: Active Protocol: Document 03/03/23 09:48 SAK (Rec: 03/03/23 10:38 SAK [id number]) Current Condition History of Current Condition Onset Date 1 1/2 years Current Complaints right History of Current Condition gradual onset right shoulder pain unknown reason. Increases with trying to reach overhead, out to side, or behind her back; pain and tingling. If tries to sleep on back both arms go numb. Unable to wear compression sleeve left due to pain right shoulder; patient previously seen by this PT for right shoulder pain and felt at that time pain at least some due to overuse right UE. Goes back to the doctor after PT ( Clifford Diggs). 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 MRI right shoulder: incomplete RC tear, superior labral tear Prior Treatments and Tests Tylenol, ice, heat. Can't do UE ex at cardiac rehab, low tolerance for HEP previously instructed. Has TENS, but doesn't know how to use PT-OP-C Subjective Start: 10/28/22 09:19 Freq: Status: Active Protocol: Document 08/23/23 10:30 SAK (Rec: 08/23/23 10:47 SAK [id number]) OP-PT Subjective Patient Comments Patient Comments Saw Robin her GP. Being referred to lipedema specialist at , referral in process. 2 weeks ago got glucose monitoring system; supposed to wear on back of arm for 10 days which wont work with wearing compression, and states is uncomfortable on her arm. Using arm pump consistently for left UE as currently wearing monitor on her right UE. Wearing monitor today but no compression. Will check with glucose monitor company to ask about alternative site when needs to switch to left ( supposed to alternate). PT-OP-E Functional Tests Start: 10/28/22 09:19 Freq: Status: Active Protocol: Document 10/29/22 09:50 SAK (Rec: 10/29/22 17:12 [facility] [id number]) Functional Tests Apley's Scratch Test Action 1- Left anterior shoulder Action 1- Right posterior shoulder Action 2- Left T2 Action 2- Right lateral neck Action 3- Left lateral hip Action 3- Right T7 PT-OP-H Neuro Start: 10/28/22 09:19 Freq: Status: Active Protocol: Document 10/29/22 09:50 SAK (Rec: 10/29/22 17:12 [facility] [id number]) Sensation Evaluation Gross Sensation Gross Sensation Left UE Impaired,Right UE Impaired Sensation Description Paresthesia Location Details Left Arm Light Touch Intact/Normal PT-OP-J Posture/Palpation/Skin Start: 10/28/22 09:19 Freq: Status: Active Protocol: Document 10/29/22 09:50 [facility] (Rec: 10/29/22 17:12 [facility] [id number]) Posture Evaluation Position Sitting Head/C-Spine Posture Forward Head T-Spine Posture Increased Kyphosis L-Spine Posture Increased Lordosis Shoulder Posture (L) Rounded,(R) Rounded Scapula Posture (L) Protracted,(R) Protracted Arm Posture (L) Internally Rotated,(R) Internally Rotated Pelvis Posture Anteriorly Tilted Palpation Assessment Location RC insertion Palpation Findings Tenderness Palpation Details entire joint line painful to palpation PT-OP-K Range of Motion Start: 10/28/22 09:19 Freq: Status: Active Protocol: Document 05/21/23 10:14 SP (Rec: 05/21/23 10:53 SP [id number]) Shoulder Goniometric Range of Motion Shoulder Left Shoulder ROM WFL No Testing Position Sitting Flexion 138 Extension 45 Abduction 100 External Rotation at 0 degrees Abduction 80 Comments seated L shld AROM: FF improved de deg ABD improved 25 dedeg Ext: improved 35 dedeg ER: improved 25 de deg Right Testing Position Sitting Flexion 104 Abduction 95 External Rotation at 0 degrees Abduction 62 Internal Rotation Behind Back (text) right SI Comments seated AROM R shld: FF improved 14 de>119 deg post manual Abd: less 5 de deg ER: less 18 de deg IR: improved from R buttocks: right beltline/ SI, PT-OP-L Special Tests Start: 10/28/22 09:19 Freq: Status: Active Protocol: Document 10/29/22 09:50 SAK (Rec: 10/29/22 17:12 [facility] [id number]) Special Tests Shoulder Special Tests Lift-Off Rotator Cuff Test Results positive Elevation Impingement Test Results positive Drop Arm Rotator Cuff Test Results positve PT-OP-M Strength Start: 10/28/22 09:19 Freq: Status: Active Protocol: Document 10/29/22 09:50 SAK (Rec: 10/29/22 17:12 [facility] [id number]) Shoulder Strength Shoulder Manual Muscle Testing Left Flexion 4- Good- Extension 4- Good- Adduction 4 Good External Rotation 4- Good- Internal Rotation 4 Good PT-OP-N Lymphedema Start: 04/20/23 09:31 Freq: Status: Active Protocol: Document 08/17/23 09:35 SAK (Rec: 08/17/23 10:18 [facility] [id number]) Lymphedema Measurements Upper Extremity Circumference Measurements Left Affected MCP 19 cm Dorsum of Hand 21.5 cm Wrist 19.8 cm 5 cm From Wrist Crease 25.3 cm 10 cm From Wrist Crease 29 cm 15 cm From Wrist Crease 33.9 cm 20 cm From Wrist Crease 36.4 cm 25 cm From Wrist Crease 38.9 cm 30 cm From Wrist Crease 49.4 cm 35 cm From Wrist Crease 49.6 cm 40 cm From Wrist Crease 46 cm Elbow Joint 34.9 cm Right Affected MCP 18.8 cm Dorsum of Hand 20.8 cm Wrist 17.9 cm 5 cm From Wrist Crease 24 cm 10 cm From Wrist Crease 29 cm 15 cm From Wrist Crease 31.4 cm 20 cm From Wrist Crease 32.4 cm 25 cm From Wrist Crease 38.9 cm 30 cm From Wrist Crease 45.7 cm 35 cm From Wrist Crease 47.1 cm 40 cm From Wrist Crease 45.8 cm Elbow Joint 32 cm Lower Extremity Circumference Measurements Right Affected MT Heads 22.8 cm Mid-foot 23.2 cm Medial Malleolus 27 cm 10 cm From Medial Malleolus 25.7 cm 20 cm From Medial Malleolus 39.3 cm 30 cm From Medial Malleolus 44.8 cm 40 cm From Medial Malleolus 52.8 cm 50 cm From Medial Malleolus 65.5 cm 60 cm From Medial Malleolus 76.5 cm 70 cm From Medial Malleolus 77 cm Knee Joint 50.5 cm Left Affected MT Heads 22.8 cm Mid-foot 24 cm Medial Malleolus 26 cm 10 cm From Medial Malleolus 25.8 cm 20 cm From Medial Malleolus 37.5 cm 30 cm From Medial Malleolus 43 cm 40 cm From Medial Malleolus 51.5 cm 50 cm From Medial Malleolus 65 cm 60 cm From Medial Malleolus 73 cm Knee Joint 47.2 cm - 114 143 PT-OP-Q Treatments Start: 10/28/22 09:19 Freq: Status: Active Protocol: Document 08/23/23 10:30 SAK (Rec: 08/23/23 10:47 [facility] [id number]) Lymphedema Treatment Manual Lymphatic Drainage Location for iram LE, and trunkal edema Duration 60 Patient Education Other company reported to pump only 1 arm at a time so system not overwhelmed. PT-OP-R Modalities Start: 10/28/22 09:19 Freq: Status: Active Protocol: Document 08/23/23 10:30 SAK (Rec: 08/23/23 10:47 [facility] [id number]) Compression Pump Treatment Treatment Location Right Leg Pressure Amount (mmHg) (mmHG) 47 Inflation Time (Seconds) 30 Deflation Time (Seconds) 10 Treatment Duration (minutes) 45 Treatment Tolerance Good Treatment Comments arm pump broken left LE Pressure Amount (mmHg) (mmHG) 47 Inflation Time (Seconds) 30 Deflation Time (Seconds) 10 Treatment Duration (minutes) 45 Treatment Tolerance Good Left Arm Treatment Comments arm pump broken, patient has own at home. PT-OP-T Assessment and Plan Start: 10/28/22 09:19 Freq: Status: Active Protocol: Document 08/23/23 10:30 SAK (Rec: 08/23/23 10:47 [facility] [id number]) Physical Therapy Assessment Goals Five Impairment compensatory movement patterns right UE Impairment overactivation of upper traps, postural dysfunction impacting right shoulder function Short Term Goal (STG) Patient will be able to self- correct posture and compensatory movements right shoulder with visual feedback of mirror STG Duration goal met Medical Administrator Goal (LTG) Patient will be able to perform HEP and do functional movements right UE with improved posture, without compensatory movements for improved right shoulder function 05/29/23: goal mostly met though patient not able to don compression sleeves on her own due to pain, weight of UE's 07/21/23: goal mostly met LTG Duration 08/26/23 Four Impairment lymphedema (lipidema-type) iram UE's, LEs, abdomen Short Term Goal (STG) Patient to be instructed in all aspects of lymphedema care to include skin care, manual lymphatic drainage, compression, lymphedema exercises 06/16/23: goal met STG Duration goal met Medical Administrator Goal (LTG) Patient circumferential measurements dec and stabilized (no inc or dec greater than 1 cm over the course of 1 week) and patient to obtain appropriate compression garments. Patient to be independent with all aspects of self-management for lymphedema/lipidema 06/16/23: no significant decrease in circumferentialmeasurement 07/21/23: measurements mostly stable with use of compression garments, obtained compression pump today. LTG Duration 08/27/23 Three Impairment activity tolerance Impairment Quickdash UE disability index score60% Medical Administrator Goal (LTG) Improve QuickDash score to no greater than 30% as measure of improved activity tolerance with right UE 12/30/22: decreased to 39% 02/18/23: 43% today, more sore after no PT for 1 week. 04/20/23: 40% 05/29/23: 07/21/23: not reassessed this date; focus on lipedema LTG Duration 08/27/23 Two Impairment unable to reach overhead or behind her back with right shoulder Short Term Goal (STG) Patient will be able to reach use right UE to do her hair, and be able to pull pants up on right without increase in pain 12/30/22: goal progress 02/17/23: goal mostly met 04/06/23: goal met STG Duration goal met Alf Goal (LTG) Patient will demonstrate full ROM with right shoulder to allow her to do all usual activities 04/20/23: goal progress 07/21/23: good goal progress, not fully assessed today due to focus on lipedema LTG Duration 07/21/23 One Impairment pain right shoulder as high as 8/10 Short Term Goal (STG) decrease pain to no greater than 6/10 with usual activities 12/30/22: pain decreased to 5/10 02/17/23: goal met STG Duration goal met Alf Goal (LTG) decrease pain to no greater than 3/10 with all usual activities 04/06/23: goal progress though variable ability, when feeling better patient with tendency to reach without thinking and reports inc in pain. Also, weight of arms from lymphedema appears to contribute to shoulder dysfunction; patient will be requesting order for lymphedema treatment from PCP 04/20/23: pain generally 3-5/10 , progress 07/21/23: not assessed due to focus on lipedema today LTG Duration 08/27/23 Assessment Summary Assessment Continue lymphedema/lipedema management using MLD left UE, and iram LE's during alternating lymphedema pump iram LE's Physical Therapy Plan Frequency and Duration Frequency of Treatment 1x/Week Duration of treatment (weeks) 5 Plan of Care Start Date 07/21/23 Plan of Care End Date 08/26/23 Therapeutic Interventions Therapeutic Interventions Aquatic Therapy,Home Exercise Program,Lymphedema Management, Manual Therapy,Patient/ Caregiver Education,Self-Care/ Home Management,Soft Tissue Mobilization,Taping, Therapeutic Activities, Therapeutic Exercises Modalities Cold Pack/Ice Massage,Electric Stimulation,Hot Packs, Infrared Therapy,Iontophoresis ,Ultrasound,Vasopneumatic Devices Next Visit Focus/Plan Next Note Type Treatment Note Next Visit Plan 1 further treatment, circumferential measurements.
--- NOTE | 2023-08-26 14:17 | PT.OTN ---
Current Diagnoses Lymphedema, not elsewhere classified (08/26/23) Pain in right shoulder (08/26/23) Incomplete rotator cuff tear or rupture of right shoulder, not specified as traumatic (08/26/23) Superior glenoid labrum lesion of right shoulder, initial encounter (08/26/23) Physical Therapy Treatment Note PT-OP-A Visit Information Start: 10/28/22 09:19 Freq: Status: Active Protocol: Document 08/26/23 10:31 SAK (Rec: 08/26/23 11:31 SAK [id number]) Out-Patient Physical Therapy Visit Information Visit Information Visit Type Treatment Note Visit Start Time 10:32 Visit Stop Time 12:00 Total Visit Minutes 88 Visit Number [id number] PT-OP-B Current Condition Start: 10/28/22 09:19 Freq: Status: Active Protocol: Document 03/03/23 09:48 SAK (Rec: 03/03/23 10:38 SAK [id number]) Current Condition History of Current Condition Onset Date 1 1/2 years Current Complaints right History of Current Condition gradual onset right shoulder pain unknown reason. Increases with trying to reach overhead, out to side, or behind her back; pain and tingling. If tries to sleep on back both arms go numb. Unable to wear compression sleeve left due to pain right shoulder; patient previously seen by this PT for right shoulder pain and felt at that time pain at least some due to overuse right UE. Goes back to the doctor after PT ( Clifford Diggs). 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 MRI right shoulder: incomplete RC tear, superior labral tear Prior Treatments and Tests Tylenol, ice, heat. Can't do UE ex at cardiac rehab, low tolerance for HEP previously instructed. Has TENS, but doesn't know how to use PT-OP-C Subjective Start: 10/28/22 09:19 Freq: Status: Active Protocol: Document 08/26/23 10:31 SAK (Rec: 08/26/23 11:31 SAK [id number]) OP-PT Subjective Patient Comments Patient Comments Talked with company about glucose monitor placement, no answer, supposed to talk with doctor. Currently on left arm so not able to compress with pump or garments and feels arm getting bigger. Talking with doctor today about options. Patient receptive to use of kinesiotape to left upper arm today due to lack of ability to use compression at this time. Patient agreeable to today being last PT session for lymphedema treatment. Still awaiting referral to lymphedema specialist. PT-OP-E Functional Tests Start: 10/28/22 09:19 Freq: Status: Active Protocol: Document 10/29/22 09:50 SAK (Rec: 10/29/22 17:12 [facility] [id number]) Functional Tests Apley's Scratch Test Action 1- Left anterior shoulder Action 1- Right posterior shoulder Action 2- Left T2 Action 2- Right lateral neck Action 3- Left lateral hip Action 3- Right T7 PT-OP-H Neuro Start: 10/28/22 09:19 Freq: Status: Active Protocol: Document 10/29/22 09:50 SAK (Rec: 10/29/22 17:12 [facility] [id number]) Sensation Evaluation Gross Sensation Gross Sensation Left UE Impaired,Right UE Impaired Sensation Description Paresthesia Location Details Left Arm Light Touch Intact/Normal PT-OP-J Posture/Palpation/Skin Start: 10/28/22 09:19 Freq: Status: Active Protocol: Document 10/29/22 09:50 SAK (Rec: 10/29/22 17:12 [facility] [id number]) Posture Evaluation Position Sitting Head/C-Spine Posture Forward Head T-Spine Posture Increased Kyphosis L-Spine Posture Increased Lordosis Shoulder Posture (L) Rounded,(R) Rounded Scapula Posture (L) Protracted,(R) Protracted Arm Posture (L) Internally Rotated,(R) Internally Rotated Pelvis Posture Anteriorly Tilted Palpation Assessment Location RC insertion Palpation Findings Tenderness Palpation Details entire joint line painful to palpation PT-OP-K Range of Motion Start: 10/28/22 09:19 Freq: Status: Active Protocol: Document 05/21/23 10:14 SP (Rec: 05/21/23 10:53 SP [id number]) Shoulder Goniometric Range of Motion Shoulder Left Shoulder ROM WFL No Testing Position Sitting Flexion 138 Extension 45 Abduction 100 External Rotation at 0 degrees Abduction 80 Comments seated L shld AROM: FF improved de deg ABD improved 25 dedeg Ext: improved 35 dedeg ER: improved 25 de deg Right Testing Position Sitting Flexion 104 Abduction 95 External Rotation at 0 degrees Abduction 62 Internal Rotation Behind Back (text) right SI Comments seated AROM R shld: FF improved 14 de>119 deg post manual Abd: less 5 de deg ER: less 18 de deg IR: improved from R buttocks: right beltline/ SI, PT-OP-L Special Tests Start: 10/28/22 09:19 Freq: Status: Active Protocol: Document 10/29/22 09:50 SAK (Rec: 10/29/22 17:12 SAK [id number]) Special Tests Shoulder Special Tests Lift-Off Rotator Cuff Test Results positive Elevation Impingement Test Results positive Drop Arm Rotator Cuff Test Results positve PT-OP-M Strength Start: 10/28/22 09:19 Freq: Status: Active Protocol: Document 10/29/22 09:50 SAK (Rec: 10/29/22 17:12 SAK [id number]) Shoulder Strength Shoulder Manual Muscle Testing Left Flexion 4- Good- Extension 4- Good- Adduction 4 Good External Rotation 4- Good- Internal Rotation 4 Good PT-OP-N Lymphedema Start: 04/20/23 09:31 Freq: Status: Active Protocol: Document 08/26/23 10:31 SAK (Rec: 08/26/23 11:31 [facility] [id number]) Lymphedema Measurements Upper Extremity Circumference Measurements Left Affected MCP 19 cm Dorsum of Hand 21.5 cm Wrist 19.6 cm 5 cm From Wrist Crease 27.4 cm 10 cm From Wrist Crease 32.4 cm 15 cm From Wrist Crease 35 cm 20 cm From Wrist Crease 36.8 cm 25 cm From Wrist Crease 39.8 cm 30 cm From Wrist Crease 49.5 cm 35 cm From Wrist Crease 50 cm 40 cm From Wrist Crease 46 cm Elbow Joint 35.7 cm Right Affected MCP 19.2 cm Dorsum of Hand 20.5 cm Wrist 18.2 cm 5 cm From Wrist Crease 23.2 cm 10 cm From Wrist Crease 28.7 cm 15 cm From Wrist Crease 31.5 cm 20 cm From Wrist Crease 33 cm 25 cm From Wrist Crease 37.2 cm 30 cm From Wrist Crease 44.7 cm 35 cm From Wrist Crease 50.5 cm 40 cm From Wrist Crease 50.2 cm Elbow Joint 32 cm Lower Extremity Circumference Measurements Right Affected MT Heads 22.5 cm Mid-foot 23.3 cm Medial Malleolus 26.8 cm 10 cm From Medial Malleolus 25.9 cm 20 cm From Medial Malleolus 38.6 cm 30 cm From Medial Malleolus 44.2 cm 40 cm From Medial Malleolus 50.9 cm 50 cm From Medial Malleolus 64 cm 60 cm From Medial Malleolus 67 cm 70 cm From Medial Malleolus 76.1 cm Knee Joint 50.3 cm Left Affected MT Heads 22.7 cm Mid-foot 24 cm Medial Malleolus 26.5 cm 10 cm From Medial Malleolus 25.6 cm 20 cm From Medial Malleolus 37.3 cm 30 cm From Medial Malleolus 43.7 cm 40 cm From Medial Malleolus 52 cm 50 cm From Medial Malleolus 67 cm 60 cm From Medial Malleolus 70.3 cm Knee Joint 48 cm - 117.1 144 PT-OP-Q Treatments Start: 10/28/22 09:19 Freq: Status: Active Protocol: Document 08/26/23 10:31 SAK (Rec: 08/26/23 11:31 SAK [id number]) Lymphedema Treatment Manual Lymphatic Drainage Location right UE, iram LE, trunk edema. PT-OP-R Modalities Start: 10/28/22 09:19 Freq: Status: Active Protocol: Document 08/26/23 10:31 TOAN (Rec: 08/26/23 11:31 SAK [id number]) Compression Pump Treatment Treatment Location Right Leg Pressure Amount (mmHg) (mmHG) 47 Inflation Time (Seconds) 30 Deflation Time (Seconds) 10 Treatment Duration (minutes) 45 Treatment Tolerance Good Right Arm Treatment Comments arm pump broken left LE Pressure Amount (mmHg) (mmHG) 47 Inflation Time (Seconds) 30 Deflation Time (Seconds) 10 Treatment Duration (minutes) 45 Treatment Tolerance Good Left Arm Treatment Comments arm pump broken, patient has own at home. PT-OP-T Assessment and Plan Start: 10/28/22 09:19 Freq: Status: Active Protocol: Document 08/26/23 10:31 SAK (Rec: 08/26/23 11:31 SAK [id number]) Physical Therapy Assessment Goals Five Impairment compensatory movement patterns right UE Impairment overactivation of upper traps, postural dysfunction impacting right shoulder function Short Term Goal (STG) Patient will be able to self- correct posture and compensatory movements right shoulder with visual feedback of mirror STG Duration goal met Educational Guidance Counselor Goal (LTG) Patient will be able to perform HEP and do functional movements right UE with improved posture, without compensatory movements for improved right shoulder function 05/29/23: goal mostly met though patient not able to don compression sleeves on her own due to pain, weight of UE's 07/21/23: goal mostly met 08/26/23: goal met LTG Duration 08/26/23 Four Impairment lymphedema (lipidema-type) iram UE's, LEs, abdomen Short Term Goal (STG) Patient to be instructed in all aspects of lymphedema care to include skin care, manual lymphatic drainage, compression, lymphedema exercises 06/16/23: goal met STG Duration goal met Jail Goal (LTG) Patient circumferential measurements dec and stabilized (no inc or dec greater than 1 cm over the course of 1 week) and patient to obtain appropriate compression garments. Patient to be independent with all aspects of self-management for lymphedema/lipidema 06/16/23: no significant decrease in circumferentialmeasurement 07/21/23: measurements mostly stable with use of compression garments, obtained compression pump today. 08/26/23: measurements variable , left UE inc today without ability to wear compression. Patient independent with all aspects of lymphedema/lipidema self care and is awaiting referral to lymphedema specialist at . LTG Duration goal met Three Impairment activity tolerance Impairment Quickdash UE disability index score60% Jail Goal (LTG) Improve QuickDash score to no greater than 30% as measure of improved activity tolerance with right UE 12/30/22: decreased to 39% 02/18/23: 43% today, more sore after no PT for 1 week. 04/20/23: 40% 08/26/23: goal met 07/21/23: not reassessed this date; focus on lipedema LTG Duration 08/27/23 Two Impairment unable to reach overhead or behind her back with right shoulder Short Term Goal (STG) Patient will be able to reach use right UE to do her hair, and be able to pull pants up on right without increase in pain 12/30/22: goal progress 02/17/23: goal mostly met 04/06/23: goal met STG Duration goal met Jail Goal (LTG) Patient will demonstrate full ROM with right shoulder to allow her to do all usual activities 04/20/23: goal progress 07/21/23: good goal progress, not fully assessed today due to focus on lipedema 08/26/23: goal mostly met LTG Duration 07/21/23 One Impairment pain right shoulder as high as 8/10 Short Term Goal (STG) decrease pain to no greater than 6/10 with usual activities 12/30/22: pain decreased to 5/10 02/17/23: goal met STG Duration goal met Jail Goal (LTG) decrease pain to no greater than 3/10 with all usual activities 04/06/23: goal progress though variable ability, when feeling better patient with tendency to reach without thinking and reports inc in pain. Also, weight of arms from lymphedema appears to contribute to shoulder dysfunction; patient will be requesting order for lymphedema treatment from PCP 04/20/23: pain generally 3-5/10 , progress 07/21/23: not assessed due to focus on lipedema today 08/26/23: has made goal progress, pain variable. LTG Duration 08/27/23 Assessment Summary Assessment Patient independent with all aspects of lymphedema self- care at this time, indep with shoulder ROM and strengthening ex. Circumferential measurements remain variable, dec with use of compression but due to current glucose monitor recommended placement unable to wear compression left UE: will discuss with physician. Patient awaiting referral to lymphedema specialist at . No further PT need for lymphedem at this time. Physical Therapy Plan Frequency and Duration Frequency of Treatment 1x/Week Duration of treatment (weeks) 5 Plan of Care Start Date 07/21/23 Plan of Care End Date 08/26/23 Therapeutic Interventions Therapeutic Interventions Aquatic Therapy,Home Exercise Program,Lymphedema Management, Manual Therapy,Patient/ Caregiver Education,Self-Care/ Home Management,Soft Tissue Mobilization,Taping, Therapeutic Activities, Therapeutic Exercises Modalities Cold Pack/Ice Massage,Electric Stimulation,Hot Packs, Infrared Therapy,Iontophoresis ,Ultrasound,Vasopneumatic Devices Discharge Physical Therapy Discharge Comments Goals mostly met.
--- NOTE | 2023-08-26 16:27 | PT.OPDS ---
Current Diagnoses Lymphedema, not elsewhere classified (08/26/23) Pain in right shoulder (08/26/23) Incomplete rotator cuff tear or rupture of right shoulder, not specified as traumatic (08/26/23) Superior glenoid labrum lesion of right shoulder, initial encounter (08/26/23) Visit Care Team Role Provider Type Slade Mccann MD Primary Care Provider Physician Specialty: Family Practice Address: [facility] [place], [address] Email: [email or web address] Attending Provider Referring Provider Specialty: Address: Phone: Fax: Email: Visit Number Visit Number [id number] Discharge Summary PT-OP-B Current Condition Start: 10/28/22 09:19 Freq: Status: Active Protocol: Document 03/03/23 09:48 SAK (Rec: 03/03/23 10:38 SAK [id number]) Current Condition History of Current Condition Onset Date 1 1/2 years Current Complaints right History of Current Condition gradual onset right shoulder pain unknown reason. Increases with trying to reach overhead, out to side, or behind her back; pain and tingling. If tries to sleep on back both arms go numb. Unable to wear compression sleeve left due to pain right shoulder; patient previously seen by this PT for right shoulder pain and felt at that time pain at least some due to overuse right UE. Goes back to the doctor after PT ( Clifford Diggs). 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 Can't do UE ex at cardiac rehab, low tolerance for HEP previously instructed. Has TENS, but doesn't know how to use PT-OP-C Subjective Start: 10/28/22 09:19 Freq: Status: Active Protocol: Document 08/26/23 10:31 SAK (Rec: 08/26/23 11:31 SAK [id number]) OP-PT Subjective Patient Comments Patient Comments Talked with company about glucose monitor placement, no answer, supposed to talk with doctor. Currently on left arm so not able to compress with pump or garments and feels arm getting bigger. Talking with doctor today about options. Patient receptive to use of kinesiotape to left upper arm today due to lack of ability to use compression at this time. Patient agreeable to today being last PT session for lymphedema treatment. Still awaiting referral to lymphedema specialist. PT-OP-E Functional Tests Start: 10/28/22 09:19 Freq: Status: Active Protocol: Document 10/29/22 09:50 SAK (Rec: 10/29/22 17:12 [facility] [id number]) Functional Tests Apley's Scratch Test Action 1- Left anterior shoulder Action 1- Right posterior shoulder Action 2- Left T2 Action 2- Right lateral neck Action 3- Left lateral hip Action 3- Right T7 PT-OP-H Neuro Start: 10/28/22 09:19 Freq: Status: Active Protocol: Document 10/29/22 09:50 SAK (Rec: 10/29/22 17:12 [facility] [id number]) Sensation Evaluation Gross Sensation Gross Sensation Left UE Impaired,Right UE Impaired Sensation Description Paresthesia Location Details Left Arm Light Touch Intact/Normal PT-OP-J Posture/Palpation/Skin Start: 10/28/22 09:19 Freq: Status: Active Protocol: Document 10/29/22 09:50 [facility] (Rec: 10/29/22 17:12 [facility] [id number]) Posture Evaluation Position Sitting Head/C-Spine Posture Forward Head T-Spine Posture Increased Kyphosis L-Spine Posture Increased Lordosis Shoulder Posture (L) Rounded,(R) Rounded Scapula Posture (L) Protracted,(R) Protracted Arm Posture (L) Internally Rotated,(R) Internally Rotated Pelvis Posture Anteriorly Tilted Palpation Assessment Location RC insertion Palpation Findings Tenderness Palpation Details entire joint line painful to palpation PT-OP-K Range of Motion Start: 10/28/22 09:19 Freq: Status: Active Protocol: Document 05/21/23 10:14 SP (Rec: 05/21/23 10:53 SP [id number]) Shoulder Goniometric Range of Motion Shoulder Left Shoulder ROM WFL No Testing Position Sitting Flexion 138 Extension 45 Abduction 100 External Rotation at 0 degrees Abduction 80 Comments seated L shld AROM: FF improved de deg ABD improved 25 dedeg Ext: improved 35 dedeg ER: improved 25 de deg Right Testing Position Sitting Flexion 104 Abduction 95 External Rotation at 0 degrees Abduction 62 Internal Rotation Behind Back (text) right SI Comments seated AROM R shld: FF improved 14 de>119 deg post manual Abd: less 5 de deg ER: less 18 de deg IR: improved from R buttocks: right beltline/ SI, PT-OP-L Special Tests Start: 10/28/22 09:19 Freq: Status: Active Protocol: Document 10/29/22 09:50 SAK (Rec: 10/29/22 17:12 SAK [id number]) Special Tests Shoulder Special Tests Lift-Off Rotator Cuff Test Results positive Elevation Impingement Test Results positive Drop Arm Rotator Cuff Test Results positve PT-OP-M Strength Start: 10/28/22 09:19 Freq: Status: Active Protocol: Document 10/29/22 09:50 SAK (Rec: 10/29/22 17:12 SAK [id number]) Shoulder Strength Shoulder Manual Muscle Testing Left Flexion 4- Good- Extension 4- Good- Adduction 4 Good External Rotation 4- Good- Internal Rotation 4 Good PT-OP-N Lymphedema Start: 04/20/23 09:31 Freq: Status: Active Protocol: Document 08/26/23 10:31 SAK (Rec: 08/26/23 11:31 [facility] [id number]) Lymphedema Measurements Upper Extremity Circumference Measurements Left Affected MCP 19 cm Dorsum of Hand 21.5 cm Wrist 19.6 cm 5 cm From Wrist Crease 27.4 cm 10 cm From Wrist Crease 32.4 cm 15 cm From Wrist Crease 35 cm 20 cm From Wrist Crease 36.8 cm 25 cm From Wrist Crease 39.8 cm 30 cm From Wrist Crease 49.5 cm 35 cm From Wrist Crease 50 cm 40 cm From Wrist Crease 46 cm Elbow Joint 35.7 cm Right Affected MCP 19.2 cm Dorsum of Hand 20.5 cm Wrist 18.2 cm 5 cm From Wrist Crease 23.2 cm 10 cm From Wrist Crease 28.7 cm 15 cm From Wrist Crease 31.5 cm 20 cm From Wrist Crease 33 cm 25 cm From Wrist Crease 37.2 cm 30 cm From Wrist Crease 44.7 cm 35 cm From Wrist Crease 50.5 cm 40 cm From Wrist Crease 50.2 cm Elbow Joint 32 cm Lower Extremity Circumference Measurements Right Affected MT Heads 22.5 cm Mid-foot 23.3 cm Medial Malleolus 26.8 cm 10 cm From Medial Malleolus 25.9 cm 20 cm From Medial Malleolus 38.6 cm 30 cm From Medial Malleolus 44.2 cm 40 cm From Medial Malleolus 50.9 cm 50 cm From Medial Malleolus 64 cm 60 cm From Medial Malleolus 67 cm 70 cm From Medial Malleolus 76.1 cm Knee Joint 50.3 cm Left Affected MT Heads 22.7 cm Mid-foot 24 cm Medial Malleolus 26.5 cm 10 cm From Medial Malleolus 25.6 cm 20 cm From Medial Malleolus 37.3 cm 30 cm From Medial Malleolus 43.7 cm 40 cm From Medial Malleolus 52 cm 50 cm From Medial Malleolus 67 cm 60 cm From Medial Malleolus 70.3 cm Knee Joint 48 cm - 117.1 144 PT-OP-T Assessment and Plan Start: 10/28/22 09:19 Freq: Status: Active Protocol: Document 08/26/23 10:31 TOAN (Rec: 08/26/23 11:31 [facility] [id number]) Physical Therapy Assessment Goals Five Impairment compensatory movement patterns right UE Impairment overactivation of upper traps, postural dysfunction impacting right shoulder function Short Term Goal (STG) Patient will be able to self- correct posture and compensatory movements right shoulder with visual feedback of mirror STG Duration goal met Revenue Cycle Consultant Goal (LTG) Patient will be able to perform HEP and do functional movements right UE with improved posture, without compensatory movements for improved right shoulder function 05/29/23: goal mostly met though patient not able to don compression sleeves on her own due to pain, weight of UE's 07/21/23: goal mostly met 08/26/23: goal met LTG Duration 08/26/23 Four Impairment lymphedema (lipidema-type) iram UE's, LEs, abdomen Short Term Goal (STG) Patient to be instructed in all aspects of lymphedema care to include skin care, manual lymphatic drainage, compression, lymphedema exercises 06/16/23: goal met STG Duration goal met [facility] Goal (LTG) Patient circumferential measurements dec and stabilized (no inc or dec greater than 1 cm over the course of 1 week) and patient to obtain appropriate compression garments. Patient to be independent with all aspects of self-management for lymphedema/lipidema 06/16/23: no significant decrease in circumferentialmeasurement 07/21/23: measurements mostly stable with use of compression garments, obtained compression pump today. 08/26/23: measurements variable , left UE inc today without ability to wear compression. Patient independent with all aspects of lymphedema/lipidema self care and is awaiting referral to lymphedema specialist at . LTG Duration goal met Three Impairment activity tolerance Impairment Quickdash UE disability index score60% Revenue Cycle Consultant Goal (LTG) Improve QuickDash score to no greater than 30% as measure of improved activity tolerance with right UE 12/30/22: decreased to 39% 02/18/23: 43% today, more sore after no PT for 1 week. 04/20/23: 40% 08/26/23: goal met 07/21/23: not reassessed this date; focus on lipedema LTG Duration 08/27/23 Two Impairment unable to reach overhead or behind her back with right shoulder Short Term Goal (STG) Patient will be able to reach use right UE to do her hair, and be able to pull pants up on right without increase in pain 12/30/22: goal progress 02/17/23: goal mostly met 04/06/23: goal met STG Duration goal met Revenue Cycle Consultant Goal (LTG) Patient will demonstrate full ROM with right shoulder to allow her to do all usual activities 04/20/23: goal progress 07/21/23: good goal progress, not fully assessed today due to focus on lipedema 08/26/23: goal mostly met LTG Duration 07/21/23 One Impairment pain right shoulder as high as 8/10 Short Term Goal (STG) decrease pain to no greater than 6/10 with usual activities 12/30/22: pain decreased to 5/10 02/17/23: goal met STG Duration goal met [facility] Goal (LTG) decrease pain to no greater than 3/10 with all usual activities 04/06/23: goal progress though variable ability, when feeling better patient with tendency to reach without thinking and reports inc in pain. Also, weight of arms from lymphedema appears to contribute to shoulder dysfunction; patient will be requesting order for lymphedema treatment from PCP 04/20/23: pain generally 3-5/10 , progress 07/21/23: not assessed due to focus on lipedema today 08/26/23: has made goal progress, pain variable. LTG Duration 08/27/23 Assessment Summary Assessment Patient independent with all aspects of lymphedema self- care at this time, indep with shoulder ROM and strengthening ex. Circumferential measurements remain variable, dec with use of compression but due to current glucose monitor recommended placement unable to wear compression left UE: will discuss with physician. Patient awaiting referral to lymphedema specialist at . No further PT need for lymphedem at this time. Physical Therapy Plan Frequency and Duration Frequency of Treatment 1x/Week Duration of treatment (weeks) 5 Plan of Care Start Date 07/21/23 Plan of Care End Date 08/26/23 Therapeutic Interventions Therapeutic Interventions Aquatic Therapy,Home Exercise Program,Lymphedema Management, Manual Therapy,Patient/ Caregiver Education,Self-Care/ Home Management,Soft Tissue Mobilization,Taping, Therapeutic Activities, Therapeutic Exercises Modalities Cold Pack/Ice Massage,Electric Stimulation,Hot Packs, Infrared Therapy,Iontophoresis ,Ultrasound,Vasopneumatic Devices Discharge Physical Therapy Discharge Comments Goals mostly met.
== END 2023-09-06 14:54 | disposition home or self-care (01) ==
LOC: PHYS 10:30
PROVIDERS: PCP Family Medicine
DX: I89.0 Lymphedema, not elsewhere classified (principal); M25.511 Pain in right shoulder; M75.111 Incomplete rotator cuff tear or rupture of right shoulder, not specified as traumatic; S43.431A Superior glenoid labrum lesion of right shoulder, initial encounter
CPT/HCPCS: 97014; 97016; 97035; 97110; 97112; 97140; 97162; 97164; 97535; G0283

== ENCOUNTER 2023-12-22 10:28 | Outpatient (CLI) | payer MEDICARE, OTHER, SELFPAY ==
[2020-10-07 13:02] VITALS: BMI 44.7
[2023-12-22 10:50] VITALS: BP 179/75; PULSE 66; RESP 16; TEMP 36.1; O2SAT 98
--- NOTE | 2023-12-22 11:00 | DI.RAD.S_ITS ---
PROCEDURE: PAIN L INTERLAMINAR/CAUDAL INJ INDICATIONS: SPONDYLOSIS COMPARISON: None. FINDINGS: Fluoroscopic spot filming was performed to verify placement of spinal needles at left caudal region as labeled on the films. Appropriate location(s) of the needle tip(s) was confirmed by injection of iodinated contrast. IMPRESSION: Left-sided caudal fluoroscopic injection. Dictated by: Asha Nieto M.D. on 12/22/2023 at 16:36 Approved by: Asha Nieto M.D. on 12/22/2023 at 16:37
[2023-12-22 11:15] VITALS: BP 189/85; PULSE 61; RESP 18; O2SAT 96
[2023-12-22] MEDS: BUPIVACAINE 0.25% (PF) VIAL 5 ML INJ (11:19)
[2023-12-22] MEDS: DEXAMETHASONE 10 MG/ML VIAL INJ (11:19)
[2023-12-22] MEDS: iopamidoL 15 ML VIAL 3 ML INJ (11:19)
[2023-12-22 11:20] VITALS: BP 175/75; PULSE 60; RESP 21; O2SAT 96
[2023-12-22 11:25] VITALS: BP 178/81; PULSE 61; RESP 20; O2SAT 96
[2023-12-22 11:30] VITALS: BP 177/75; PULSE 65; RESP 16; O2SAT 96
--- NOTE | 2023-12-22 11:31 | P.PCN_ITS ---
Date/Time/Diagnoses Date of procedure: 12/22/23 Time of procedure: 11:00 Procedure Notes Physician: Jerrell Bonner Total Fluoroscopy time (seconds): 17 Total sedation minutes: 0 Procedure in detail & Post-procedure care: Caudal Epidural Steroid Injection Indications: Kim is presenting for treatment of lumbar radiculopathy with low back and leg pain. Preoperative diagnosis: Lumbar radiculopathy Postoperative diagnosis: Same Focused Examination: Ax3 Mood and affect are normal Vital Signs: VSS Consent: Following review of allergies and potential side effects/complications, including, but not necessarily limited to, infection, allergic reaction, local tissue breakdown, stroke, temporary or permanent nerve injury, paralysis, and possible , the patient indicated that they understood and agreed to proceed.? An informed consent document was signed by the patient, witnessed by a nurse and placed in the patient's chart.? Additionally, other treatment options including medications and physical therapy were reviewed with the patient. All questions were answered. Discussed risk of injection while taking clopidogrel. Discussed signs and symptoms of epidural hematoma and patient voiced understanding. She was instructed to present to the emergency department with any new neurological symptoms. She expressed understanding. Site was then marked. Anesthesia: Local Position: Prone Monitoring: NIBP, Pulse oximetry, 3 lead EKG Needle used: 25 gauge, 3.5 in spinal needle Contrast: Isovue 300-M 2mL Injectate: Dexamethasone 10 mg with 0.25% bupivacaine 2 mL and normal saline 2 mL Technique: The skin was prepped with chloraprep and then draped in a sterile fashion. Time out was performed as per protocol. Oxygen applied via NC. The entry point for entering/approaching the epidural space by a caudal approach through the sacral hiatus was identified. Skin and subcutaneous structures of the needle entry site was then infiltrated with 3 mL of lidocaine 1%. Under AP and lateral control, the needle was guided through the sacral hiatus to the S3 level using intermittent fluoroscopy. Contrast was then injected and the spread was consistent with the epidural space. There was no evidence for intravascular or intrathecal uptake. After negative aspiration, the above-mentioned injectate was then slowly administered and the needle withdrawn. The patient expressed no unusual discomfort or paresthesias during needle positioning or injection. Band- Aids applied to injection sites. EBL: less than 1 ml Complications: None Post Procedure: Patient was taken to the recovery and monitored. The patient was provided a Pain Log to continue to record the patient's response to the target- specific procedure prior to the patient's follow-up visit with the referring physician. Patient was stable upon discharge. Detailed post procedure instructions were provided. Patient was asked to call in the event of worsening pain, fever, weakness, numbness or bladder or bowel incontinence.
== END 2023-12-22 11:41 | disposition home or self-care (01) ==
LOC: RAD 10:29
PROVIDERS: Family Provider Registered Nurse; PCP Registered Nurse; Referring Provider Anesthesiology; Visit Provider Anesthesiology
DX: M54.16 Radiculopathy, lumbar region (principal)
CPT/HCPCS: 62323; J1100; J3490

== ENCOUNTER 2023-12-30 12:15 | Outpatient (RCR) | payer MEDICARE, OTHER, SELFPAY ==
[2020-10-07 13:02] VITALS: BMI 44.7
--- NOTE | 2023-12-07 13:47 | OT.OP.EVAL ---
Visit Care Team Role Provider Type Jack Harding DO Referring Provider Non-Staff Specialty: Emergency Medicine Address: [address], [place], [address] Fax: Email: Other Providers Specialty: Address: Phone: Fax: Email: FLORIN Enamorado Attending Provider Non-Staff Family Provider Primary Care Provider Specialty: Family Practice Address: [address] [facility], [address], [place], [address] Email: Occupational Therapy Initial Evaluation OT Outpatient Adult Evaluation Start: 12/07/23 12:16 Freq: Status: Active Protocol: Document 12/07/23 12:16 AMS (Rec: 12/07/23 12:56 AMS [id number]) General Information - Adult Visit Number 12/08; 12/17 visit -> KX modifier Plan of Care Dates 12/07/23 - 01/18/24 Insurance Information Medicare Visit Start Time 09:45 Visit Stop Time 10:30 Total Visit Minutes 45 Treatment Setting Outpatient Care Note Type Initial Evaluation Referring Physician Lilo Taveras MD Identification Confirmed Yes Identification Confirmed By Self Goals Treatment Initiated HEP. Short Term Goals 1. Kim will present with increased range of motion: 1a. 45 degrees active R wrist flexion. 1b. 60 degrees active L wrist extension. 1c. 25 degrees active L wrist UD. Device Test Engineer Goals 1. Kim will be modified independent with execution of home exercise program referring to provided written and visual instructions as needed. 2. Kim will present with increased ability to participate in meaningful activities, as evidenced by the followina. Kim will obtain a QuickDASH UE Outcome Measure Score of 30.00 or less. 2b. Kim will be able to verbally identify 2-3 pieces of adaptive equipment and/or modification/compensatory strategies that she can utilize to support her participation in meaningful activities. Assessment/Plan Treatment Assessment Kim is 73 y.o. and is right hand dominant; she was referred to outpatient OT secondary to L CTS and mild thickening of A1 ethan consistent w/ stenosing tenosynovitis of the 4th digit at MCPJ of the L hand. US was completed on 11/12/23. PMH is significant for allergies to latex, arthritis, back pain, diabetes II, dizziness, headaches, heart attack, heart disease, lymphedema, neck pain, neuropathy, shortness of breath, surgery (cornea replacements, appendix removal , gallbladder removal, 3 stents, 2 c-sections). 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 She is currently receiving outpatient PT for back pain/discomfort and was previously seen by [facility] for lymphedema treatment/CDT/MLD. She has gone thru the cardiopulmonary program x 2 and is currently utilizing their facilities (treadmill and recumbent bike). She has bilateral UE compression sleeves and presented w/ LEs reportedly wrapped; she also has compression gloves. She does complain of distal L UE pain/discomfort; she was given a LUE wrist brace w/ rigid volar component which places her in 35 degrees wrist ext that she wears at night and sometimes during the day when her wrist is bothering her; however, it is poor fitting proximally. She reports bilateral 3rd digit trigger finger symptoms w/ locking into flexion R > L. She also reports h/o dropping items w/ the L hand. Hobbies include weaving, sewing, and reading; she does have a pillow that she utilizes for reading d/t discomfort. Pain Assessment Grid completed w/ indication of 6.5 out of 10 relative to bilateral hands/wrists; numbness/achiness reported of volar surfaces of 3rd, 4th digits of the left hand and mild pain/discomfort dorsal 3rd, 4th MPJs -> mid 3rd, 4th metacarpals; numbness of right hand indicated as well. QuickDASH UE Outcome Measure Score = 50.00. 45 degrees active L wrist flex vs 40 degrees active R wrist flex; 53 degrees active L wrist ext vs 60 degrees active R wrist ext; 15 degrees active L wrist RD vs [address]; 17 degrees active L wrist UD vs 25 degrees R wrist UD. Did not report any changes in sensation w/ reverse Phalen's test. Mild bilateral intrinsic tightness. Kim would likely benefit from outpatient OT to address range of motion, stiffness of distal UEs, development of home exercise program, and to identify AE/ modification strategies to support success w/ participation in meaningful activities. Home Exercise Program 12/07/23 = Prayer pose for wrist ext/MCPJ ext w/ forearms supported as needed; hold for 20 to 30 sec 1-2 times or as needed. Passive hook fist 20 to 30 sec 1-2 times or as needed vs tendon glides x 5 cycles mid day; cease exercises if increase in pain/ discomfort noted and/or increased locking into flexion . Length of treatment (weeks) 6 Plan of Care Start Date 12/07/23 Plan of Care End Date 01/18/24 Treatment Frequency Once a Week Therapeutic Contents Active Range of Motion, Adaptive Equipment Education, Client Education,Functional Activities,Home Exercise Program,Joint Protection, Education,Neurodevelopment Treatment,Neuromuscular Re- Education,Self-Care,Stretching /Flexibility Activities, Therapeutic Activities, Therapeutic Exercises, Modalities Modalities As Needed,As Prescribed Additional Types of Modalities Heat/Ice/Contrast baths
--- NOTE | 2023-12-21 13:19 | OT.OP.TRT ---
Visit Care Team Role Provider Type Jack Harding DO Referring Provider Non-Staff Specialty: Emergency Medicine Address: [address], [place], [address] Fax: Email: Other Providers Specialty: Address: Phone: Fax: Email: FLORIN Enamorado Attending Provider Non-Staff Family Provider Primary Care Provider Specialty: Family Practice Address: [address] [facility] [facility], [address], [place], [address] Email: Occupational Therapy Treatment Note OT Outpatient Treatment Note - Adult Start: 12/07/23 12:16 Freq: Status: Active Protocol: Document 12/21/23 13:04 AMS (Rec: 12/21/23 13:19 AMS [id number]) OT Outpatient Adult Treatment Note Session Time Visit Start Time 12:20 Visit Stop Time 12:50 Total Visit Minutes 30 Visit Information Visit Number 01/08; 01/17 visit -> KX modifier Plan of Care Dates 12/07/23 - 01/18/24 Insurance Information Medicare Setting Treatment Setting Outpatient Care Visit Type Note Type Treatment Note General Information General Information Kim is 73 y.o. and is right hand dominant; she was referred to outpatient OT secondary to L CTS and mild thickening of A1 ethan consistent w/ stenosing tenosynovitis of the 4th digit at MCPJ of the L hand. US was completed on 11/12/23. PMH is significant for allergies to latex, arthritis, back pain, diabetes II, dizziness, headaches, heart attack, heart disease, lymphedema, neck pain, neuropathy, shortness of breath, surgery (cornea replacements, appendix removal , gallbladder removal, 3 stents, 2 c-sections). 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 She is currently receiving outpatient PT for back pain/discomfort and was previously seen by [facility] for lymphedema treatment/CDT/MLD. - Subjective Identification Type Name Identification Reconciled With Medical Record Observations (+) reported compliance w/ recommended exercises; however , reported she stopped doing the exercises d/t increase in pain/discomfort. - Objective Objective Measurements Please refer to below for progress towards meeting established OT goals: Short Term Goals 1. Kim will present with increased range of motion: 1a. 45 degrees active R wrist flexion. 1b. 60 degrees active L wrist extension. 1c. 25 degrees active L wrist UD. Correction Goals 1. Kim will be modified independent with execution of home exercise program referring to provided written and visual instructions as needed. 2. Kim will present with increased ability to participate in meaningful activities, as evidenced by the followina. Kim will obtain a QuickDASH UE Outcome Measure Score of 30.00 or less. 2b. Kim will be able to verbally identify 2-3 pieces of adaptive equipment and/or modification/compensatory strategies that she can utilize to support her participation in meaningful activities. - - Assessment Assessment of Improvement Kim reported increased pain/ discomfort w/ execution of recommended exercises; thus, ceased exercises. Instructed in 2 different types of median nerve glides, carpal ligament release with use of wall, and active wrist flex/ext in gravity eliminated plane w/ proximal upper extremities supported by tabletop. Given that previously instructed exercises led to increased pain/discomfort of the left UE , Kim would likely benefit from UE office services specialist evaluation if symptoms persist /increase/and/or there is no change in symptoms for exploration of less conservative treatments and/or going back to PCP. Kim would likely benefit from outpatient OT to address range of motion, stiffness of distal UEs, development of home exercise program, and to identify AE/modification strategies to support success w/ participation in meaningful activities. Home Exercise Program 12/21/23 = Median nerve glides (x 2) x 2-3 repetitions w/ hold of 5 seconds, carpal ligament release w/ hold of 20 -30 seconds, active wrist flex /ext in gravity eliminated plane (proximal UEs supported - elbows in 90 degrees flexion ) and active wrist RD/UD on TT (proximal UEs supported - elbows in 90 degrees flexion) 3 x 10 (or as tolerated - 1 x 10 and increase as able) 3 x a week vs daily (dependent upon tolerance). 12/07/23 = Prayer pose for wrist ext/MCPJ ext w/ forearms supported as needed; hold for 20 to 30 sec 1-2 times or as needed. Passive hook fist 20 to 30 sec 1-2 times or as needed vs tendon glides x 5 cycles mid day; cease exercises if increase in pain/ discomfort noted and/or increased locking into flexion . - Plan Therapy Recommendations Advance per Rehabilitation Protocol Additional Therapy Recommendations Will need to monitor pain
--- NOTE | 2023-12-30 13:44 | OT.OP.DC ---
Visit Care Team Role Provider Type Jack Harding DO Referring Provider Non-Staff Address: [address], [place], [address] Fax: Email: Other Providers Address: Phone: Fax: Email: FLORIN Enamorado Attending Provider Non-Staff Family Provider Primary Care Provider Address: [address], [address], [place], [address] Email: OT Outpatient OT Outpatient Adult Evaluation Start: 12/07/23 12:16 Freq: Status: Active Protocol: Document 12/07/23 12:16 [facility] (Rec: 12/07/23 12:56 [facility] [id number]) General Information - Adult Visit Information Visit Number 12/08; 12/17 visit -> KX modifier Plan of Care Dates 12/07/23 - 01/18/24 Insurance Information Medicare Session Time Visit Start Time 09:45 Visit Stop Time 10:30 Total Visit Minutes 45 Setting Treatment Setting Outpatient Care Visit Type Note Type Initial Evaluation Referral Referring Physician Lilo Taveras MD Identification Identification Confirmed Yes Identification Confirmed By Self Goals Treatment Treatment Initiated HEP. Short Term Goals Short Term Goals 1. Kim will present with increased range of motion: 1a. 45 degrees active R wrist flexion. 1b. 60 degrees active L wrist extension. 1c. 25 degrees active L wrist UD. Radiographer Cardiac Catheterization Goals Senior Living Goals 1. Kim will be modified independent with execution of home exercise program referring to provided written and visual instructions as needed. 2. Kim will present with increased ability to participate in meaningful activities, as evidenced by the followina. Kim will obtain a QuickDASH UE Outcome Measure Score of 30.00 or less. 2b. Kim will be able to verbally identify 2-3 pieces of adaptive equipment and/or modification/compensatory strategies that she can utilize to support her participation in meaningful activities. Assessment/Plan Assessment Treatment Assessment Kim is 73 y.o. and is right hand dominant; she was referred to outpatient OT secondary to L CTS and mild thickening of A1 ethan consistent w/ stenosing tenosynovitis of the 4th digit at MCPJ of the L hand. US was completed on 11/12/23. PMH is significant for allergies to latex, arthritis, back pain, diabetes II, dizziness, headaches, heart attack, heart disease, lymphedema, neck pain, neuropathy, shortness of breath, surgery (cornea replacements, appendix removal , gallbladder removal, 3 stents, 2 c-sections). 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 She is currently receiving outpatient PT for back pain/discomfort and was previously seen by Macey for lymphedema treatment/CDT/MLD. She has gone thru the cardiopulmonary program x 2 and is currently utilizing their facilities (treadmill and recumbent bike). She has bilateral UE compression sleeves and presented w/ LEs reportedly wrapped; she also has compression gloves. She does complain of distal L UE pain/discomfort; she was given a LUE wrist brace w/ rigid volar component which places her in 35 degrees wrist ext that she wears at night and sometimes during the day when her wrist is bothering her; however, it is poor fitting proximally. She reports bilateral 3rd digit trigger finger symptoms w/ locking into flexion R > L. She also reports h/o dropping items w/ the L hand. Hobbies include weaving, sewing, and reading; she does have a pillow that she utilizes for reading d/t discomfort. Pain Assessment Grid completed w/ indication of 6.5 out of 10 relative to bilateral hands/wrists; numbness/achiness reported of volar surfaces of 3rd, 4th digits of the left hand and mild pain/discomfort dorsal 3rd, 4th MPJs -> mid 3rd, 4th metacarpals; numbness of right hand indicated as well. QuickDASH UE Outcome Measure Score = 50.00. 45 degrees active L wrist flex vs 40 degrees active R wrist flex; 53 degrees active L wrist ext vs 60 degrees active R wrist ext; 15 degrees active L wrist RD vs [address]; 17 degrees active L wrist UD vs 25 degrees R wrist UD. Did not report any changes in sensation w/ reverse Phalen's test. Mild bilateral intrinsic tightness. Kim would likely benefit from outpatient OT to address range of motion, stiffness of distal UEs, development of home exercise program, and to identify AE/ modification strategies to support success w/ participation in meaningful activities. Home Exercise Program 12/07/23 = Prayer pose for wrist ext/MCPJ ext w/ forearms supported as needed; hold for 20 to 30 sec 1-2 times or as needed. Passive hook fist 20 to 30 sec 1-2 times or as needed vs tendon glides x 5 cycles mid day; cease exercises if increase in pain/ discomfort noted and/or increased locking into flexion . Plan Length of treatment (weeks) 6 Plan of Care Start Date 12/07/23 Plan of Care End Date 01/18/24 Treatment Frequency Once a Week Therapeutic Contents Active Range of Motion, Adaptive Equipment Education, Client Education,Functional Activities,Home Exercise Program,Joint Protection, Education,Neurodevelopment Treatment,Neuromuscular Re- Education,Self-Care,Stretching /Flexibility Activities, Therapeutic Activities, Therapeutic Exercises, Modalities Modalities As Needed,As Prescribed Additional Types of Modalities Heat/Ice/Contrast baths Functional Wrist/Hand Scan Hand Side Sensory Assessment Sensory Profile2 OT Outpatient Treatment Note - Adult Start: 12/07/23 12:16 Freq: Status: Active Protocol: Document 12/30/23 13:44 [facility] (Rec: 12/30/23 13:44 [facility] [id number]) OT Outpatient Adult Treatment Note Session Time Visit Start Time 12:15 Visit Stop Time 12:45 Visit Information Visit Number 02/05; 02/14 visit -> KX modifier Plan of Care Dates 12/07/23 - 01/18/24 Insurance Information Medicare Setting Treatment Setting Outpatient Care Visit Type Note Type Discharge Summary General Information General Information Kim is 73 y.o. and is right hand dominant; she was referred to outpatient OT secondary to L CTS and mild thickening of A1 ethan consistent w/ stenosing tenosynovitis of the 4th digit at MCPJ of the L hand. US was completed on 11/12/23. PMH is significant for allergies to latex, arthritis, back pain, diabetes II, dizziness, headaches, heart attack, heart disease, lymphedema, neck pain, neuropathy, shortness of breath, surgery (cornea replacements, appendix removal , gallbladder removal, 3 stents, 2 c-sections). 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 She is currently receiving outpatient PT for back pain/discomfort and was previously seen by Macey for lymphedema treatment/CDT/MLD. - Subjective Identification Type Name Identification Reconciled With Medical Record Observations Report of receiving corticosteroid injection to the spine previous week; intends on following-up w/ MD d/t recent increase in pain/ discomfort. Report of scheduled follow-up w/ sports MD following week, January 07. (+) wearing of rigid metal splint on L 3rd digit d/ t locking of 3rd digit into flexion. - Objective Objective Measurements Please refer to below for progress towards meeting established OT goals: Short Term Goals ALL GOALS D/C 12/30/23 1. Kim will present with increased range of motion: 1a. 45 degrees active R wrist flexion. 1b. 60 degrees active L wrist extension. 1c. 25 degrees active L wrist UD. Radiographer Cardiac Catheterization Goals ALL GOALS D/C 12/30/23 1. Kim will be modified independent with execution of home exercise program referring to provided written and visual instructions as needed. 2. Kim will present with increased ability to participate in meaningful activities, as evidenced by the followina. Kim will obtain a QuickDASH UE Outcome Measure Score of 30.00 or less. 2b. Kim will be able to verbally identify 2-3 pieces of adaptive equipment and/or modification/compensatory strategies that she can utilize to support her participation in meaningful activities. - Exercises 1 Descriptor HEP. POC. - Assessment Assessment of Improvement Kim denied change in symptoms w/ exercises; she presented w/ rigid L 3rd digit brace secondary to reported locking of 3rd digit into flexion. She reports wearing this brace incrementally. Kim is adapting daily tasks in response to pain/discomfort in hands, including sliding laundry basket across the floor w/ foot, use of step w/ handle in kitchen as needed, and taking multiple trips and/ or using tote bags (w/ placing them on shoulder) and/or waiting for spouse to assist w / bringing grocery bags into the home. Kim reports that she cont to elevate the left arm when able. Given that Kim reports no change in symptoms and/or increase in discomfort following execution of exercises, recommend d/c from outpatient OT and that she sees UE retirement benefits specialist to explore less conservative methods of treatment, and follow-up w/ PCP. Home Exercise Program 12/21/23 = Median nerve glides (x 2) x 2-3 repetitions w/ hold of 5 seconds, carpal ligament release w/ hold of 20 -30 seconds, active wrist flex /ext in gravity eliminated plane (proximal UEs supported - elbows in 90 degrees flexion ) and active wrist RD/UD on TT (proximal UEs supported - elbows in 90 degrees flexion) 3 x 10 (or as tolerated - 1 x 10 and increase as able) 3 x a week vs daily (dependent upon tolerance). 12/07/23 = Prayer pose for wrist ext/MCPJ ext w/ forearms supported as needed; hold for 20 to 30 sec 1-2 times or as needed. Passive hook fist 20 to 30 sec 1-2 times or as needed vs tendon glides x 5 cycles mid day; cease exercises if increase in pain/ discomfort noted and/or increased locking into flexion . - Plan Therapy Recommendations Discharge from Occupational Therapy
== END 2024-01-05 10:41 | disposition home or self-care (01) ==
LOC: OT 12:15
PROVIDERS: Family Provider Registered Nurse; PCP Registered Nurse; Referring Provider Emergency Medicine Sports Medicine; Visit Provider Registered Nurse
DX: G56.02 Carpal tunnel syndrome, left upper limb (principal); M65.342 Trigger finger, left ring finger
CPT/HCPCS: 97110

== ENCOUNTER → 2024-02-08 15:03 | Outpatient (CLI) | payer MEDICARE, OTHER, SELFPAY ==
[2020-10-07 13:02] VITALS: BMI 44.7
--- NOTE | 2024-02-08 | DI.MG.S_ITS ---
BILATERAL DIGITAL SCREENING MAMMOGRAM 3D/2D WITH CAD: 02/08/2024 CLINICAL: Routine screening. Family history of breast cancer. Comparison is made to exams dated: 02/01/2023 mammogram, 11/21/2020 mammogram, 09/29/2019 mammogram, and 05/18/2017 mammogram - [facility]. Both breasts are heterogeneously dense, which may obscure small masses (category c / 51-75% glandular tissue). Current study was also evaluated with a Computer Aided Detection (CAD) system. There are benign calcifications in both breasts. No significant masses, calcifications, or other findings are seen in either breast. There has been no significant interval change. IMPRESSION: BENIGN There is no mammographic evidence of malignancy. A 1 year screening mammogram is recommended. Based on the Tyrer Cuzick model (a risk assessment model) the patient's lifetime risk is 9.5% and her 10 year risk is 7.1%. According to the ACR, ACS, and NCCN guidelines, an annual breast MRI exam along with mammogram is recommended if the patient's lifetime risk is 20% or greater. This exam was interpreted at Station ID: [id number]. NOTE: For mammograms, a report in lay terms will be sent to the patient. Approximately 15% of breast malignancies will not be visualized mammographically. In the management of a palpable breast mass, a negative mammogram must not discourage biopsy of a clinically suspicious lesion. Electronically Signed By: Jovanny harvey/acosta:02/09/2024 12:14:04 letter sent: Normal Exam ACR BI-RADS Category 2: Benign Finding(s) [id number]
== END ==
LOC: MAMMO 15:03
PROVIDERS: Family Provider Registered Nurse; PCP Registered Nurse; Referring Provider Registered Nurse; Visit Provider Registered Nurse
DX: Z12.31 Encounter for screening mammogram for malignant neoplasm of breast (principal); Z80.3 Family history of malignant neoplasm of breast; R92.333 Mammographic heterogeneous density, bilateral breasts
CPT/HCPCS: 77063; 77067

== ENCOUNTER 2024-02-14 15:14 | Emergency (ER) | payer MEDICARE, OTHER, SELFPAY ==
[2020-10-07 13:02] VITALS: BMI 44.7
[2024-02-14 15:30] VITALS: BP 182/79; PULSE 39; RESP 20; TEMP 36.5; O2SAT 97; BMI 45.1
--- NOTE | 2024-02-14 16:19 | DI.CT.S_ITS ---
PROCEDURE: CT CHEST ABD PEL W CON INDICATIONS: fall TECHNIQUE: After the administration of intravenous contrast, 5 mm thick sections acquired from the lung apices to the symphysis. 2.5 mm thick coronal and sagittal reformats were acquired. Additional 7 mm thick coronal maximum intensity projection (MIP) reformats acquired through the lungs. Optional 10-minute delayed imaging may be performed from the kidneys to the bladder. For radiation dose reduction, the following was used: automated exposure control, adjustment of mA and/or kV according to patient size. COMPARISON: None. FINDINGS: Image quality: Diagnostic. CHEST: Lower Neck: No enlarged lymph nodes. Thyroid: No thyroid nodules which require sonographic evaluation. Axillae: No enlarged lymph nodes. Chest Wall: No subcutaneous gas. Lungs and Pleura: No pulmonary contusions or lacerations. No acute airspace opacities. No pneumothorax or hemothorax. A few benign calcified granulomas are present. No suspicious pulmonary nodule. Mediastinum: No mediastinal hematomas. Heart size is normal. No pericardial effusion. Thoracic aorta and pulmonary arteries demonstrate normal size and enhancement. No mediastinal or hilar adenopathy. Esophagus is normal in caliber. No hiatal hernia. Coronary artery calcifications are present. ABDOMEN: Liver: No lacerations. Gallbladder: Status post cholecystectomy. Biliary ducts: No biliary dilation. Pancreas: Homogenous enhancement. Spleen: Homogenous enhancement without laceration or hematoma. Spleen is mildly enlarged at 13.7 cm in anterior-posterior dimension. Adrenal Glands: Symmetric enhancement. Kidneys and Ureters: Symmetric enhancement. No hydronephrosis. No solid mass. No complex renal cystic lesion which requires follow up. Stomach and Bowel: Normal colonic caliber, without significant wall thickening. Peritoneum: No abnormal intraperitoneal fluid. No free air. Ventral Wall: Small fat containing periumbilical hernia. Abdominal Nodes: No retroperitoneal or mesenteric adenopathy by size criteria. Vessels: Aorta and inferior vena cava are normal in size. PELVIS: Pelvic Organs: Unremarkable. Bladder: Normal thickness. Pelvic Nodes: No enlarged lymph nodes. Miscellaneous: No inguinal hernias are seen. Bones: Pelvic ring and hip joints appear intact. No displaced rib fractures. generalized osteopenia. Postsurgical changes are seen in the lumbar spine at L3-4. IMPRESSION: No evidence of traumatic injury to the chest, abdomen or pelvis. Approved by: Navin Newman M.D. on 02/14/2024 at 18:35
[2024-02-14 16:53] LABS: Add Manual Diff / Slide Review NO; Basophils Absolute Auto 0 /uL (0-100); Basophils Percent Auto 0.7 % (0-2); Eosinophils Absolute Auto 200 /uL (0-450); Eosinophils Percent Auto 3.7 % (2-4); Hematocrit 41.5 % (36-46); Hemoglobin 13.7 g/dL (12.0-16.0); Lymphocytes Absolute Auto 800 /uL (1100-4500); Lymphocytes Percent Auto 16.1 % (25-40); Mean Corpuscular HGB Conc 32.9 % (30-36); Mean Corpuscular Hemoglobin 29.6 PG (26-34); Monocytes Absolute Auto 400 /uL (0-900); Monocytes Percent Auto 8.5 % (3-14); Neutrophils Absolute Auto 3600 /uL (1500-7000); Platelet Count 141 X10^3/uL (150-400); Red Blood Cell Count 4.61 X10^6/uL (4.0-5.2); Red Cell Distribution Width 14.7 % (11.6-14.8); White Blood Cell Count 5.1 X10^3/uL (4.5-11.0)
[2024-02-14] MEDS: TET,DIPH,PERTUSS(ACELL),VAC/PF 0.5 ML SYRINGE IM (17:16)
[2024-02-14] MEDS: KETOROLAC 30 MG/ML VIAL 15 MG IV (17:28)
[2024-02-14 17:29] LABS: Alanine Aminotransferase 24 IU/L (<35); Albumin 3.9 g/dL (3.5-5.0); Albumin Globulin Ratio 1.4 (1.0-2.8); Alkaline Phosphatase 75 U/L (38-126); Aspartate Aminotransferase 23 IU/L (14-36); Bilirubin Total 0.5 mg/dL (0.2-1.3); Blood Urea Nitrogen 20 mg/dL (7-17); Calcium 10.2 mg/dL (8.4-10.2); Carbon Dioxide 25 mmol/L (22-32); Chloride 110 mmol/L (98-107); Estimated Glomerular Filt Rate > 60 mL/min (>60); Globulin 2.8 g/dL (1.7-4.1); Glucose 128 mg/dL (80-110); HEMOLYSIS 18 (0-50); Lipase 95 U/L (23-300); Potassium 4.1 mmol/L (3.4-5.1); Sodium 140 mmol/L (137-145); Total Protein 6.7 g/dL (6.3-8.2)
[2024-02-14 17:53] VITALS: BP 172/74; PULSE 63; RESP 14; TEMP 36.6; O2SAT 99
--- NOTE | 2024-02-14 18:38 | ED.BACK ---
HPI - Back Pain/Injury <Jada Slater PA-C - Last Filed: 02/15/24 16:26> General Chief Complaint: Back Pain/Injury Stated Complaint: back pain Time Seen by Provider: 02/14/24 15:54 Source: patient History of Present Illness HPI Narrative: 73-year-old female with past medical history cardiac stents, on Plavix presents to the ED status post a mechanical fall sustained 2 days prior to arrival. Patient states that she accidentally misstepped on her patio causing herself to fall. Patient tried to stop her fall with her left hand. No head strike, loss of consciousness. Patient has some bruising around the left elbow, however states it is not very painful. Patient also has a small abrasion to the left knee. Patient is here in the ED since her right lower back has been extremely painful, the pain radiates and wraps to the front. Patient denies fever, chills, chest pain, shortness of breath, hematuria, urinary hesitancy, urinary incontinence, lightheadedness, dizziness, syncope. Pain does not radiate down the legs. No numbness, tingling, weakness. Tetanus is not up-to-date. Related Data Home Medications Medication Instructions Recorded Confirmed flaxseed oil 1,000 mg capsule 1,000 mg PO DAILY ##0 10/28/06 02/17/24 omeprazole 20 mg capsule,delayed 20 mg PO DAILY PRN GI Upset ##0 06/09/12 02/17/24 release olopatadine 0.1 % eye drops 1 drp OPHTH BID ##0 11/16/16 02/17/24 (Patanol) omega 6-rre-mqf-fish oil 1,000 mg 1 cap PO DAILY ##0 01/27/18 02/17/24 (120 mg-180 mg) capsule (Fish Oil) albuterol sulfate 90 mcg/actuation 2 puff inhalation Q6H PRN Wheezing 09/25/20 02/17/24 aerosol inhaler loratadine 10 mg tablet (Claritin) 10 mg PO QDAYP PRN Seasonal 09/25/20 02/17/24 allergies losartan 25 mg tablet 50 mg PO BEDTIME 09/25/20 02/17/24 nitroglycerin 0.4 mg sublingual 0.4 mg sublingual Q5-15M PRN Chest 09/25/20 02/17/24 tablet Pain rosuvastatin 20 mg tablet 20 mg PO BEDTIME 09/25/20 02/17/24 sumatriptan succinate 50 mg tablet 50 mg PO SEE INSTRUCTIONS PRN 09/25/20 02/17/24 Migraines carvedilol 3.125 mg tablet 3.125 mg PO BID 12/10/21 02/17/24 clopidogrel 75 mg tablet 75 mg PO DAILY 12/10/21 02/17/24 cyanocobalamin (vitamin B-12) 1,000 mcg PO DAILY 12/10/21 02/17/24 1,000 mcg capsule metformin 500 mg tablet 1,000 mg PO BID 12/10/21 02/17/24 gkgubltq-[id number]-pgex-FA-Ca carb-vit K 1 tab PO DAILY 12/10/21 02/17/24 18 mg iron-400 mcg-500 mg tablet (One-A-Day Womens Formula) insulin aspart U-100 100 unit/mL 12 unit SUBCUT TID 10/14/22 02/17/24 (3 mL) subcutaneous pen (Novolog FlexPen U-100 Insulin aspart) insulin glargine 100 unit/mL (3 50 - 52 unit SUBCUT QAM 10/14/22 02/17/24 mL) subcutaneous pen (Lantus Solostar U-100 Insulin) blood-glucose sensor (Dexcom G7 06/29/23 02/17/24 Sensor device) blood-glucose transmitter (Dexcom 06/29/23 02/17/24 G6 Transmitter device) glucagon 1 mg solution for 1 mg SUBCUT Q20M PRN 06/29/23 02/17/24 injection lancets 28 gauge (FreeStyle 06/29/23 02/17/24 Lancets) lifitegrast 5 % eye drops in a 1 drp EYE-BOTH BID 06/29/23 02/17/24 dropperette (Xiidra) metronidazole 0.75 % topical cream 1 applic topical BID 06/29/23 02/17/24 pen needle, diabetic 31 gauge x #1,200 ea 06/29/23 02/17/24 5/16 (Easy Touch) sodium chloride 5 % eye ointment EYE-BOTH 06/29/23 02/17/24 varenicline 0.03 mg/spray nasal 0.03 mg intranasal BID 06/29/23 02/17/24 spray (Tyrvaya) empagliflozin 25 mg tablet 25 mg PO DAILY Diabetes 09/07/23 02/17/24 (Jardiance) sitagliptin phosphate 25 mg tablet 25 mg PO DAILY 02/17/24 02/17/24 (Januvia) Previous Rx's Medication Instructions Recorded tramadol 50 mg tablet 50 mg PO TID PRN pain #60 tabs 02/17/24 Allergies Allergy/AdvReac Type Severity Reaction Status Date / Time latex Allergy Rash Verified 02/17/24 15:00 diltiazem AdvReac Lower Verified 02/17/24 15:00 extremity nerve pain Review of Systems <Jada Slater PA-C - Last Filed: 02/15/24 16:26> Constitutional Constitutional: Denies chills, Denies fatigue, Denies fever(s), Denies frequent falls, Denies lethargy and Denies weakness Eyes Eyes: Denies change in vision, Denies eye discharge, Denies irritation and Denies loss of vision ENT Ears, Nose, Mouth, and Throat: Denies change in voice, Denies dizziness, Denies neck pain, Denies sore throat and Denies throat swelling Cardiovascular Cardiovascular: Denies chest pain, Denies irregular heart rhythm, Denies lightheadedness, Denies palpitations, Denies dyspnea, Denies dyspnea on exertion and Denies orthopnea Respiratory Respiratory: Denies cough, Denies dyspnea, Denies dyspnea on exertion and Denies wheezing Gastrointestinal Gastrointestinal: Denies abdominal pain, Denies change in bowel habits, Denies diarrhea, Denies nausea and Denies vomiting Musculoskeletal Musculoskeletal: Reports back pain, Denies neck pain and Denies numbness Comments: Right-sided back, rib, abdominal pain Integumentary/Breasts Skin/Breast: Denies pruritus, Denies erythema, Denies rash and Denies wounds Neurologic Neurologic: Denies behavioral changes, Denies confusion, Denies dizziness, Denies frequent falls, Denies loss of vision, Denies numbness and Denies weakness Psychiatric Psychiatric: Denies anxiety, Denies behavioral changes, Denies confusion, Denies depression, Denies homicidal ideation and Denies suicidal ideation Endocrine Endocrine: Denies fatigue, Denies flushing and Denies palpitations Hematologic/Lymphatic Hematologic/Lymphatic: Denies easy bruising Allergic/Immunologic Allergic/Immunologic: Denies urticaria, Denies throat swelling and Denies wheezing Patient History <Jada Slater PA-C - Last Filed: 02/15/24 16:26> Medical History Fall (on) (from) other stairs and steps, initial encounter Lumbar radiculopathy Lumbar spondylosis Dorsalgia Asthma Sarcoidosis (~1996) Spinal stenosis of lumbar region with radiculopathy Spondylolisthesis Osteoarthritis Arthritis Sleep apnea Chronic back pain Chronic renal insufficiency Vitamin B12 deficiency Sciatica of right side Seasonal allergies Reactive airway disease Migraine Hypokalemia Dry eye syndrome Depression Corneal abrasion of both eyes Anasarca Chest pain GARCIA (nonalcoholic steatohepatitis) Coronary artery disease Hypertension Hyperlipidemia Diabetes Surgical History History of colonoscopy (08/16/17) History of bilateral cataract extraction (2015) Hx of laminectomy (11/23/16) Hx of cholecystectomy History of 2 sections Hx of appendectomy Hx of heart artery stent (02/24/19) Social History household members: spouse and children Smoking Status: Never smoker alcohol intake: never eating out: 1-3 times/week Type(s) of exercise: walking, aerobic, regular exercise, resistance training, advised to exercise at least 150 min/week (moderate intensity aerobic), advised to perform resistance training at least 2x/week and normal ROM and activity Smoking Status: Never smoker Substance Use Type: does not use Exam <Jada Slater PA-C - Last Filed: 02/15/24 16:26> Narrative Exam Narrative: Const General:?cooperative, healthy appearing and comfortable [facility] Head:?normal to inspection Ears:?hearing grossly normal bilaterally Nose:?external nose normal Face and sinus:?normal facial exam and sinuses nontender Mouth:?oral mucosae normal Throat:?posterior oropharynx normal Eyes General:?appearance normal, both eyes and all related structures Neck Neck:?normal visual inspection and no lymphadenopathy noted Resp Effort & Inspection:?normal respiratory effort Auscultation:?clear to auscultation bilaterally Cardio Rate:?regular rate Rhythm:?regular rhythm GI Abdomen is soft, nondistended. Abdomen is tender to palpation in the right quadrants. Musculoskeletal No midline tenderness to palpation. There is right-sided paraspinal tenderness to palpation. Neuro General:?patient alert, patient awake and patient oriented x3 Initial Vital Signs Initial Vital Signs: Vital Signs Temperature 97.7 F 02/14/24 15:30 Pulse Rate 39 L 02/14/24 15:30 Respiratory Rate 20 02/14/24 15:30 Blood Pressure 182/79 H 02/14/24 15:30 Pulse Oximetry 97 02/14/24 15:30 Oxygen Delivery Method Room Air 02/14/24 15:30 <Bess Montero DO - Last Filed: 02/18/24 08:50> Initial Vital Signs Initial Vital Signs: Vital Signs Temperature 97.7 F 02/14/24 15:30 Pulse Rate 39 L 02/14/24 15:30 Respiratory Rate 20 02/14/24 15:30 Blood Pressure 182/79 H 02/14/24 15:30 Pulse Oximetry 97 02/14/24 15:30 Oxygen Delivery Method Room Air 02/14/24 15:30 Course <Jada Slater PA-C - Last Filed: 02/15/24 16:26> Orders Ordered: Discontinued Medications Diphtheria/Tetanus/Acell Pertussis (Tet,Diph,Pertuss(Acell),Vac/Pf 0.5 Ml Syringe) 0.5 ml IM .ONCE ONE Stop: 02/14/24 16:51 Last Admin: 02/14/24 17:16 Dose: 0.5 ml Documented By: MARQUISE Ketorolac Tromethamine (Ketorolac 30 Mg/Ml Vial) 15 mg IV NOW ONE Stop: 02/14/24 17:22 Last Admin: 02/14/24 17:28 Dose: 15 mg Documented By: MARQUISE Vital Signs Vital signs: Vital Signs - 8 hr 02/14/24 15:30 02/14/24 17:53 Temperature 97.7 F 97.9 F Pulse Rate 39 L 63 Respiratory Rate 20 14 Blood Pressure 182/79 H 172/74 H Pulse Oximetry 97 99 Oxygen Delivery Method Room Air Room Air <Bess Montero DO - Last Filed: 02/18/24 08:50> Orders Ordered: Discontinued Medications Diphtheria/Tetanus/Acell Pertussis (Tet,Diph,Pertuss(Acell),Vac/Pf 0.5 Ml Syringe) 0.5 ml IM .ONCE ONE Stop: 02/14/24 16:51 Last Admin: 02/14/24 17:16 Dose: 0.5 ml Documented By: MARQUISE Ketorolac Tromethamine (Ketorolac 30 Mg/Ml Vial) 15 mg IV NOW ONE Stop: 02/14/24 17:22 Last Admin: 02/14/24 17:28 Dose: 15 mg Documented By: MARQUISE Vital Signs Vital signs: Vital Signs - 8 hr 02/14/24 15:30 02/14/24 17:53 Temperature 97.7 F 97.9 F Pulse Rate 39 L 63 Respiratory Rate 20 14 Blood Pressure 182/79 H 172/74 H Pulse Oximetry 97 99 Oxygen Delivery Method Room Air Room Air MDM - Back Pain/Injury <Jada Slater PA-C - Last Filed: 02/15/24 16:26> Lab Data 02/14/24 16:40 02/14/24 16:40 Labs: Lab Results 02/14/24 Range/Units 16:40 WBC 5.1 (4.5-11.0) X10^3/uL RBC 4.61 (4.0-5.2) X10^6/uL Hgb 13.7 (12.0-16.0) g/dL Hct 41.5 (36-46) % MCV 90.0 (80-100) fL MCH 29.6 (26-34) PG MCHC 32.9 (30-36) % RDW 14.7 (11.6-14.8) % Plt Count 141 L (150-400) X10^3/uL Neut % (Auto) 71.0 (50-75) % Lymph % (Auto) 16.1 L (25-40) % Letcher % (Auto) 8.5 (3-14) % Eos % (Auto) 3.7 (2-4) % Baso % (Auto) 0.7 (0-2) % Neut # (Auto) 3600 (0906-9742) /uL Lymph # (Auto) 800 L (9966-7051) /uL Letcher # (Auto) 400 (0-900) /uL Eos # (Auto) 200 (0-450) /uL Baso # (Auto) 0 (0-100) /uL Sodium 140 (137-145) mmol/L Potassium 4.1 (3.4-5.1) mmol/L Chloride 110 H (98-107) mmol/L Carbon Dioxide 25 (22-32) mmol/L BUN 20 H (7-17) mg/dL Creatinine 0.69 (0.52-1.04) mg/dL Estimated GFR > 60 (>60) mL/min BUN/Creatinine Ratio 29.0 H (6-22) Glucose 128 H (80-110) mg/dL Calcium 10.2 (8.4-10.2) mg/dL Total Bilirubin 0.5 (0.2-1.3) mg/dL AST 23 (14-36) IU/L ALT 24 (<35) IU/L Alkaline Phosphatase 75 (38-126) U/L Total Protein 6.7 (6.3-8.2) g/dL Albumin 3.9 (3.5-5.0) g/dL Globulin 2.8 (1.7-4.1) g/dL Albumin/Globulin Ratio 1.4 (1.0-2.8) Lipase 95 (23-300) U/L [facility] Narrative Medical decision making narrative: 73-year-old female with past medical history cardiac stents, on Plavix presents to the ED status post a mechanical fall sustained 2 days prior to arrival. Concern for fracture/dislocation versus intra-abdominal injuries versus other. Will obtain CT chest abdomen pelvis, obtain labs. Will reassess. Will give Toradol for pain. Will update tetanus. Labs within normal limits. No acute findings on CT. Patient's symptoms most consistent with a musculoskeletal sprain/strain. Recommend Tylenol, ibuprofen for pain symptoms. Recommend follow-up with her pain management doctor. ED return precautions discussed with patient. Patient verbalized understanding. Medical records reviewed: Yes. <Bess Montero, - Last Filed: 02/18/24 08:50> Lab Data Labs: Lab Results 02/14/24 Range/Units 16:40 WBC 5.1 (4.5-11.0) X10^3/uL RBC 4.61 (4.0-5.2) X10^6/uL Hgb 13.7 (12.0-16.0) g/dL Hct 41.5 (36-46) % MCV 90.0 (80-100) fL MCH 29.6 (26-34) PG MCHC 32.9 (30-36) % RDW 14.7 (11.6-14.8) % Plt Count 141 L (150-400) X10^3/uL Neut % (Auto) 71.0 (50-75) % Lymph % (Auto) 16.1 L (25-40) % Letcher % (Auto) 8.5 (3-14) % Eos % (Auto) 3.7 (2-4) % Baso % (Auto) 0.7 (0-2) % Neut # (Auto) 3600 (9493-3893) /uL Lymph # (Auto) 800 L (4172-9939) /uL Letcher # (Auto) 400 (0-900) /uL Eos # (Auto) 200 (0-450) /uL Baso # (Auto) 0 (0-100) /uL Sodium 140 (137-145) mmol/L Potassium 4.1 (3.4-5.1) mmol/L Chloride 110 H (98-107) mmol/L Carbon Dioxide 25 (22-32) mmol/L BUN 20 H (7-17) mg/dL Creatinine 0.69 (0.52-1.04) mg/dL Estimated GFR > 60 (>60) mL/min BUN/Creatinine Ratio 29.0 H (6-22) Glucose 128 H (80-110) mg/dL Calcium 10.2 (8.4-10.2) mg/dL Total Bilirubin 0.5 (0.2-1.3) mg/dL AST 23 (14-36) IU/L ALT 24 (<35) IU/L Alkaline Phosphatase 75 (38-126) U/L Total Protein 6.7 (6.3-8.2) g/dL Albumin 3.9 (3.5-5.0) g/dL Globulin 2.8 (1.7-4.1) g/dL Albumin/Globulin Ratio 1.4 (1.0-2.8) Lipase 95 (23-300) U/L Discharge Plan Departure Patient Disposition: Home Clinical Impression: Back pain due to injury Instructions: DI for Low Back Pain Activity Restrictions/Additional Instructions: You were evaluated in the ED today for back pain following a fall injury. Your labs and CT chest abdomen pelvis were normal. It appears that your symptoms are most likely due to contusions and musculoskeletal sprain/strain. You may continue taking ibuprofen and Tylenol for pain relief. 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 Return to the ED if you have worsening symptoms, urinary difficulties, numbness, tingling, weakness. Prescriptions: No Action flaxseed oil 1,000 mg Capsule 1,000 mg PO DAILY Qty: 0 omeprazole 20 MG capsule,delayed release(DR/EC) 20 mg PO DAILY PRN (Reason: GI Upset) Qty: 0 olopatadine [Patanol] 5 ML drops 1 drp OPHTH BID Qty: 0 omega 4-rmg-ijw-fish oil [Fish Oil] 1,000 mg (120 mg-180 mg) Capsule 1 cap PO DAILY Qty: 0 loratadine [Claritin] 10 MG tablet 10 mg PO QDAYP PRN (Reason: Seasonal allergies) losartan 25 mg Tablet 50 mg PO BEDTIME nitroglycerin 0.4 mg Tablet, Sublingual 0.4 mg SUBLINGUAL Q5-15M PRN (Reason: Chest Pain) albuterol sulfate 90 mcg/actuation Hfa Aerosol Inhaler 2 puff INHALATION Q6H PRN (Reason: Wheezing) rosuvastatin 20 mg Tablet 20 mg PO BEDTIME sumatriptan succinate 50 MG tablet 50 mg PO SEE INSTRUCTIONS PRN (Reason: Migraines) Rx Instructions: 50mg by mouth once as needed for migraine. May repeat dose once in 2 hours if no relief. insulin aspart U-100 [Novolog FlexPen U-100 Insulin] 100 unit/mL (3 mL) insulin pen 12 unit SUBCUT TID insulin glargine [Lantus Solostar U-100 Insulin] 100 unit/mL (3 mL) insulin pen 50 - 52 unit SUBCUT QAM Rx Instructions: Titrate as directed up to 100 units a day Jardiance 25 mg tablet 25 mg PO DAILY (DME) Dexcom G7 Sensor Device See Rx Instructions .Route Rx Instructions: As directed (DME) Dexcom G6 Transmitter Device See Rx Instructions .Route Rx Instructions: As directed glucagon 1 mg recon soln 1 mg SUBCUT Q20M PRN Rx Instructions: until target blood sugar attained (DME) lancets [FreeStyle Lancets] 28 gauge misc See Rx Instructions .Route Rx Instructions: As directed metronidazole 0.75 % cream 1 applic topical BID (DME) pen needle, diabetic [Easy Touch] 31 gauge x 5/16 needle See Rx Instructions .ROUTE .MEDSUPPLY Qty: 1200 Patient Comments: [NO ORIGINAL SIG] Rx Instructions: As directed sodium chloride 5 % ointment EYE-BOTH Tyrvaya 0.03 mg/spray spray, metered, non-aerosol 0.03 mg intranasal BID Rx Instructions: administer into each nostril; approximately 12 hours apart Xiidra 5 % dropperette 1 drp EYE-BOTH BID Januvia 25 mg tablet 25 mg PO DAILY tramadol 50 mg tablet 50 mg PO TID PRN (Reason: pain) Qty: 60 0RF carvedilol 3.125 mg tablet 3.125 mg PO BID Rx Instructions: must administer with a meal/food clopidogrel 75 mg tablet 75 mg PO DAILY cyanocobalamin (vitamin B-12) 1,000 mcg capsule 1,000 mcg PO DAILY metformin 500 mg tablet 1,000 mg PO BID One-A-Day Womens Formula 18 mg iron-400 mcg-500 mg tablet 1 tab PO DAILY Referrals: Lilo Taveras ARNP [Primary Care Provider] - Stand Alone Forms: Patient Portal/API ED Sign-out <Bess Montero DO - Last Filed: 02/18/24 08:50> Cosign ED Attending Joshuaature Attestation: I was immediately available in the department for consultation.
[2024-02-14 18:52] VITALS: BP 166/84; PULSE 62; RESP 14; TEMP 36.3; O2SAT 98
== END 2024-02-14 19:17 | disposition home or self-care (01) ==
PROVIDERS: Emergency Provider Student in an Organized Health Care Education/Training Program; Family Provider Registered Nurse; PCP Registered Nurse
DX: M47.26 Other spondylosis with radiculopathy, lumbar region (principal); M54.9 Dorsalgia, unspecified; M54.50 Low back pain, unspecified; Z79.899 Other long term (current) drug therapy; Z79.01 Long term (current) use of anticoagulants; Z23 Encounter for immunization; Z98.890 Other specified postprocedural states
CPT/HCPCS: 36415; 71260; 74177; 80053; 83690; 85025; 90471; 96374; 99213; 99284; 90715; J1885; Q9967

== ENCOUNTER 2024-03-15 09:00 | Outpatient (RCR) | payer MEDICARE, OTHER, SELFPAY ==
[2020-10-07 13:02] VITALS: BMI 44.7
--- NOTE | 2023-09-09 19:00 | PT.OPPOC ---
Physical, Occupational & Speech Therapy At [facility] Current Diagnoses Spondylosis without myelopathy or radiculopathy, lumbar region (09/09/23) Radiculopathy, lumbar region (09/09/23) Dorsalgia, unspecified (09/09/23) Difficulty in walking, not elsewhere classified (09/09/23) Abnormal posture (09/09/23) Weakness (09/09/23) Other specified postprocedural states (09/09/23) Visit Care Team Role Provider Type FLORIN Enamorado Family Provider Non-Staff Primary Care Provider Specialty: Family Practice Address: [address] [facility] [place], [address] Email: Jerrell Bonner MD Attending Provider Physician Referring Provider Specialty: Anesthesiology Interventional Radiology Pain Management Address: [address] [facility] [address] [place], [address] Email: [email or web address] Plan Of Care PT-OP-T Assessment and Plan Start: 09/08/23 17:41 Freq: Status: Active Protocol: Document 09/09/23 12:47 [facility] (Rec: 09/09/23 13:34 [facility] [id number]) Physical Therapy Assessment Rehab Potential Rehabilitation Potential Good Evaluation Complexity Number of Personal Factors/Comorbidities 3 or More Number of Body Systems Impaired 4 or More Clinical Presentation at Evaluation Evolving Impairments Impairments Activity Tolerance,Balance, Functional Activities, Functional Mobility,Gait,Pain, Posture,ROM,Soft Tissue Mobility,Strength Goals strength Short Term Goal (STG) Pt will be indep w/HEP STG Duration 10/28/23 Skilled Nursing Goal (LTG) Pt will score at least 4+/5 on all LE MMT B (including hip abd and ext) and at least 3/5 LPM to show improved core and LE stability in order to allow for pt to do more daily activities w/o inc pain. LTG Duration 12/02/23 activity Short Term Goal (STG) Pt will be able to do at least 2 miles worth of steps in her day w/o pain greater than 4/ 10 STG Duration 10/28/23 Product Marketing Specialist Goal (LTG) Pt will return to being able to go for walks of at least 2 miles w/o pain stopping her from this activity. LTG Duration 12/02/22 balance Short Term Goal (STG) Pt will improve SLS to at least 5 sec B to show improved balance and stabilty STG Duration 10/28/23 Skilled Nursing Goal (LTG) Pt will improve SLS to at least 10 sec B to show improved balanec and stabilty LTG Duration 12/02/23 Assessment Summary Assessment Pt presents w/chronic LBP w/ recent flare up that has decreased her functional ability and limited how mobile she can be. She was walking about 2.5 miles at a time with a total of 4 miles a day until about 1 year ago. D/t shoulder pain and lymphodema treatment, pt has recently seeked care vs earlier. She has seen pain specialist and she is motivated to work w/PT as she wants something that is a more halfway fix and wants to avoid surgery. She has very poor core control and stabiltiy likely relating to diastisis and history of multiple abdominal surgeries. She would benefit from skilled PT to work on improving her LE and core strength , balance (as pt reports this has been an issue recently) along w/ gait and ROM in order to dec her pain. Physical Therapy Plan Frequency and Duration Frequency of Treatment 1-2x/wk Duration of treatment (weeks) 12 Plan of Care Start Date 09/09/23 Plan of Care End Date 12/02/23 Therapeutic Interventions Therapeutic Interventions Balance Training,Gait Training ,Home Exercise Program,Joint Mobilizations,Manual Therapy, Neuromuscular Re-education, Orthotic/Prosthetic Management ,Patient/Caregiver Education, Self-Care/Home Management,Soft Tissue Mobilization,Taping, Therapeutic Activities, Therapeutic Exercises Modalities Cold Pack/Ice Massage,Electric Stimulation,Hot Packs, Ultrasound Next Visit Focus/Plan Next Note Type Treatment Note Next Visit Plan supine core progression, wall posture, hip abd strengthening and extensor, manual to lumbar spine & pelvis and STM along RA Plan of Care Dates Plan of Care Start Date 09/09/23 Plan of Care End Date 12/02/23 Electronically Signed by: Sarah Brito, PT 09/09/23 [id number] If you are in agreement with this Plan of Care, please return a signed and dated copy. I have reviewed this Plan of Care and certify that the skilled therapy services above are required to meet the patient?s needs. Physician Signature Date Printed Name and Credentials Clinical Instructor Signature Printed Name and Credentials
--- NOTE | 2023-09-09 19:00 | PT.OIE ---
Current Diagnoses Spondylosis without myelopathy or radiculopathy, lumbar region (09/09/23) Radiculopathy, lumbar region (09/09/23) Dorsalgia, unspecified (09/09/23) Difficulty in walking, not elsewhere classified (09/09/23) Abnormal posture (09/09/23) Weakness (09/09/23) Other specified postprocedural states (09/09/23) Past Medical History (Last Reviewed 09/07/23 @ 16:15 by Jerrell Bonner MD) Anasarca Arthritis Asthma Chest pain Chronic back pain Chronic renal insufficiency Corneal abrasion of both eyes Coronary artery disease Depression Diabetes Dorsalgia Dry eye syndrome Hyperlipidemia Hypertension Hypokalemia Lumbar radiculopathy Lumbar spondylosis Migraine GARCIA (nonalcoholic steatohepatitis) Osteoarthritis Reactive airway disease Sarcoidosis (~1996) Sciatica of right side Seasonal allergies Sleep apnea Spinal stenosis of lumbar region with radiculopathy Spondylolisthesis Vitamin B12 deficiency Past Surgical History (Last Reviewed 09/07/23 @ 16:15 by Jerrell Bonner MD) History of 2 sections History of bilateral cataract extraction (2015) History of colonoscopy (08/16/17) Hx of appendectomy Hx of cholecystectomy Hx of heart artery stent (02/24/19) Hx of laminectomy (11/23/16) Visit Care Team Role Provider Type FLORIN Enamorado Family Provider Non-Staff Primary Care Provider Specialty: Family Practice Address: [address] [place] [address] [place], [address] Email: Jerrell Bonner MD Attending Provider Physician Referring Provider Specialty: Anesthesiology Interventional Radiology Pain Management Address: [facility] [place], [address] Email: [email or web address] Physical Therapy Initial Evaluation PT-OP-A Visit Information Start: 09/08/23 17:41 Freq: Status: Active Protocol: Document 09/09/23 12:47 [facility] (Rec: 09/09/23 13:34 [facility] [id number]) Out-Patient Physical Therapy Visit Information Visit Information Visit Type Initial Evaluation Visit Note 12/08 Visit Start Time 12:46 Visit Stop Time 13:33 Total Visit Minutes 47 Visit Number 1 Number of ASSISTANT MANAGER Visits 0 PT-OP-B Current Condition Start: 09/08/23 17:41 Freq: Status: Active Protocol: Document 09/09/23 12:47 [facility] (Rec: 09/09/23 13:34 [facility] [id number]) Current Condition History of Current Condition Onset Date decades worse recently Current Complaints LBP w/L leg pain History of Current Condition Pt reports LBP that is chronic (decades). pt had TLIF of L3- 4 in 2019. Pt reports recently pain getting worse again. Pain mostly on L side of back, L hip and into L HS. She has a back brace that she is only using occ d/t MD rec. Pt is avoiding just about everything d/t pain. Pt is trying to track her activity and is aiming to get at least 1 mile total on a day. Pt was up to 4 miles total a day in Jul/aug 2022 and it started to keep decreasing. She has noticed she is standing against the wall a lot. She has occ had to use a cane.P thas a BIPAP machine and is supposed to sleep on her back but has been laying on her side. It has been about 8 years ago that this was difficult. Pt reports LUE and LLLE swell. Pt reports his L leg does give out and feel weak on her. She has had some falls but no injuries. Sometimes she notices she is leaning and she has knocked into the door. She feels like her balance isn 't so good. She doesn't ahve the same response in that leg. Pt does report a diastisis d/ t 2 C sections. Pt reports occ when walking her ankles will just freeze and she just can' t move it and has to slowly wiggle it to get going. Pt reports hx of appendectomy and gallbladder removal. Pt was walking [employer] trail until last fall. She can't even make a whole block right now. Pt doing cardio pulm rehab maintence 2x/week. Treatment Goals Patient/Caregiver Goals Be able to walk, do housework, improved balance PT-OP-C Subjective Start: 09/08/23 17:41 Freq: Status: Active Protocol: Document 09/09/23 12:47 [facility] (Rec: 09/09/23 13:34 [facility] [id number]) Patient Questionnaires Oswestry Low Back Index Oswestry Score 20/50 (40%) OP-PT Pain Assessment Location Lower Back Pain Location Details L LBP, L Hip, post thigh L Frequency Constant Pain Aggravating Factors Standing,Walking Pain Alleviating Factors Heat Other Pain Alleviating Factors brace, CBC cream, tylenol PT-OP-D Balance Start: 09/08/23 17:41 Freq: Status: Active Protocol: Document 09/09/23 12:47 [facility] (Rec: 09/09/23 13:34 [facility] [id number]) Balance Tests Single Limb Standing Single Limb- Right 3 sec Single Limb- Left 2 sec PT-OP-G Mobility & Gait Start: 09/08/23 17:41 Freq: Status: Active Protocol: Document 09/09/23 12:47 [facility] (Rec: [facility]09[facility]23 [id number] OP Gait Assessment Comments Gait Comments Pt amb w/lat lean B and dec stance time w/o push off PT-OP-J Posture/Palpation/Skin Start: 09/08/23 17:41 Freq: Status: Active Protocol: Document 09/09/23 12:47 [facility] (Rec: 09/09/23 13:34 [facility] [id number]) Posture Evaluation Inocencia Postural Classification System Lumbar Protective Mechanism Left AP 0 Lumbar Protective Mechanism Right AP 0 Lumbar Protective Mechanism Left PA 0 Lumbar Protective Mechanism Right PA 0 Comments Posture Comments R rotated and L SB torso; iliac crest higher on R; mild higher greater trochanter on R PT-OP-K Range of Motion Start: 09/08/23 17:41 Freq: Status: Active Protocol: Document 09/09/23 12:47 [facility] (Rec: 09/09/23 13:34 [facility] [id number]) Lumbar Spine Range of Motion Lumbar Spine Active Percentage Flexion 5 Extension 25 Rotation Left 40 Rotation Right 20 Lateral Flexion Left 60 Lateral Flexion Right 50 Comments pain w/all motions PT-OP-M Strength Start: 09/08/23 17:41 Freq: Status: Active Protocol: Document 09/09/23 12:47 [facility] (Rec: 09/09/23 13:34 [facility] [id number]) Hip Strength Hip Manual Muscle Testing Right Flexion (L2) 3 Fair External Rotation 4+ Good+ Internal Rotation 5 Normal Left Flexion (L2) 4- Good- External Rotation 4+ Good+ Internal Rotation 5 Normal Comments disocmfort in hip flex B Knee Strength Knee Manual Muscle Testing Right Flexion (S2) 4- Good- Extension (L3) 5 Normal Comments pain in HS Left Flexion (S2) 4+ Good+ Extension (L3) 5 Normal Comments pain post leg ext; feel in back w/flex Ankle/Foot Strength Ankle and Foot Manual Muscle Testing Right Dorsiflexion (L4) 4 Good Plantarflexion (S1) 5 Normal Left Dorsiflexion (L4) 4+ Good+ Plantarflexion (S1) 5 Normal Comments seated PF testing B PT-OP-T Assessment and Plan Start: 09/08/23 17:41 Freq: Status: Active Protocol: Document 09/09/23 12:47 [facility] (Rec: 09/09/23 13:34 [facility] [id number]) Physical Therapy Assessment Rehab Potential Rehabilitation Potential Good Evaluation Complexity Number of Personal Factors/Comorbidities 3 or More Number of Body Systems Impaired 4 or More Clinical Presentation at Evaluation Evolving Impairments Impairments Activity Tolerance,Balance, Functional Activities, Functional Mobility,Gait,Pain, Posture,ROM,Soft Tissue Mobility,Strength Goals strength Short Term Goal (STG) Pt will be indep w/HEP STG Duration 10/28/23 Correction Goal (LTG) Pt will score at least 4+/5 on all LE MMT B (including hip abd and ext) and at least 3/5 LPM to show improved core and LE stability in order to allow for pt to do more daily activities w/o inc pain. LTG Duration 12/02/23 activity Short Term Goal (STG) Pt will be able to do at least 2 miles worth of steps in her day w/o pain greater than 4/ 10 STG Duration 10/28/23 Fairground Operator Goal (LTG) Pt will return to being able to go for walks of at least 2 miles w/o pain stopping her from this activity. LTG Duration 12/02/22 balance Short Term Goal (STG) Pt will improve SLS to at least 5 sec B to show improved balance and stabilty STG Duration 10/28/23 Fairground Operator Goal (LTG) Pt will improve SLS to at least 10 sec B to show improved balanec and stabilty LTG Duration 12/02/23 Assessment Summary Assessment Pt presents w/chronic LBP w/ recent flare up that has decreased her functional ability and limited how mobile she can be. She was walking about 2.5 miles at a time with a total of 4 miles a day until about 1 year ago. D/t shoulder pain and lymphodema treatment, pt has recently seeked care vs earlier. She has seen pain specialist and she is motivated to work w/PT as she wants something that is a more longterm fix and wants to avoid surgery. She has very poor core control and stabiltiy likely relating to diastisis and history of multiple abdominal surgeries. She would benefit from skilled PT to work on improving her LE and core strength , balance (as pt reports this has been an issue recently) along w/ gait and ROM in order to dec her pain. Physical Therapy Plan Frequency and Duration Frequency of Treatment 1-2x/wk Duration of treatment (weeks) 12 Plan of Care Start Date 09/09/23 Plan of Care End Date 12/02/23 Therapeutic Interventions Therapeutic Interventions Balance Training,Gait Training ,Home Exercise Program,Joint Mobilizations,Manual Therapy, Neuromuscular Re-education, Orthotic/Prosthetic Management ,Patient/Caregiver Education, Self-Care/Home Management,Soft Tissue Mobilization,Taping, Therapeutic Activities, Therapeutic Exercises Modalities Cold Pack/Ice Massage,Electric Stimulation,Hot Packs, Ultrasound Next Visit Focus/Plan Next Note Type Treatment Note Next Visit Plan supine core progression, wall posture, hip abd strengthening and extensor, manual to lumbar spine & pelvis and STM along RA
--- NOTE | 2023-09-13 15:11 | PT.OTN ---
Current Diagnoses Spondylosis without myelopathy or radiculopathy, lumbar region (09/13/23) Radiculopathy, lumbar region (09/13/23) Dorsalgia, unspecified (09/13/23) Difficulty in walking, not elsewhere classified (09/13/23) Abnormal posture (09/13/23) Weakness (09/13/23) Other specified postprocedural states (09/13/23) Physical Therapy Treatment Note PT-OP-A Visit Information Start: 09/08/23 17:41 Freq: Status: Active Protocol: Document 09/13/23 13:37 [facility] (Rec: 09/13/23 15:11 [facility] [id number]) Out-Patient Physical Therapy Visit Information Visit Information Visit Type Treatment Note Visit Note 01/08 Visit Start Time 13:37 Visit Stop Time 14:17 Total Visit Minutes 40 Visit Number 2 Number of LACTATION SPECIALIST Visits 0 PT-OP-B Current Condition Start: 09/08/23 17:41 Freq: Status: Active Protocol: Document 09/09/23 12:47 [facility] (Rec: 09/09/23 13:34 [facility] [id number]) Current Condition History of Current Condition Onset Date decades worse recently Current Complaints LBP w/L leg pain History of Current Condition Pt reports LBP that is chronic (decades). pt had TLIF of L3- 4 in 2019. Pt reports recently pain getting worse again. Pain mostly on L side of back, L hip and into L HS. She has a back brace that she is only using occ d/t MD rec. Pt is avoiding just about everything d/t pain. Pt is trying to track her activity and is aiming to get at least 1 mile total on a day. Pt was up to 4 miles total a day in Jul/aug 2022 and it started to keep decreasing. She has noticed she is standing against the wall a lot. She has occ had to use a cane.P thas a BIPAP machine and is supposed to sleep on her back but has been laying on her side. It has been about 8 years ago that this was difficult. Pt reports LUE and LLLE swell. Pt reports his L leg does give out and feel weak on her. She has had some falls but no injuries. Sometimes she notices she is leaning and she has knocked into the door. She feels like her balance isn 't so good. She doesn't ahve the same response in that leg. Pt does report a diastisis d/ t 2 C sections. Pt reports occ when walking her ankles will just freeze and she just can' t move it and has to slowly wiggle it to get going. Pt reports hx of appendectomy and gallbladder removal. [place] [employer] [place]. She can't even make a whole block right now. Pt doing cardio pulm rehab maintence 2x/week. Treatment Goals Patient/Caregiver Goals Be able to walk, do housework, improved balance PT-OP-C Subjective Start: 09/08/23 17:41 Freq: Status: Active Protocol: Document 09/13/23 13:37 [facility] (Rec: 09/13/23 15:11 [facility] [id number]) OP-PT Subjective Patient Comments Patient Comments Pt reports doing a lot around the house yesterday and is sore today. She did use heat after which did help PT-OP-D Balance Start: 09/08/23 17:41 Freq: Status: Active Protocol: Document 09/09/23 12:47 [facility] (Rec: 09/09/23 13:34 [facility] [id number]) Balance Tests Single Limb Standing Single Limb- Right 3 sec Single Limb- Left 2 sec PT-OP-G Mobility & Gait Start: 09/08/23 17:41 Freq: Status: Active Protocol: Document 09/09/23 12:47 [facility] (Rec: 09/09/23 18:46 [facility] [id number]) OP Gait Assessment Comments Gait Comments Pt amb w/lat lean B and dec stance time w/o push off PT-OP-J Posture/Palpation/Skin Start: 09/08/23 17:41 Freq: Status: Active Protocol: Document 09/09/23 12:47 [facility] (Rec: 09/09/23 13:34 [facility] [id number]) Posture Evaluation Inocencia Postural Classification System Lumbar Protective Mechanism Left AP 0 Lumbar Protective Mechanism Right AP 0 Lumbar Protective Mechanism Left PA 0 Lumbar Protective Mechanism Right PA 0 Comments Posture Comments R rotated and L SB torso; iliac crest higher on R; mild higher greater trochanter on R PT-OP-K Range of Motion Start: 09/08/23 17:41 Freq: Status: Active Protocol: Document 09/09/23 12:47 [facility] (Rec: 09/09/23 13:34 [facility] [id number]) Lumbar Spine Range of Motion Lumbar Spine Active Percentage Flexion 5 Extension 25 Rotation Left 40 Rotation Right 20 Lateral Flexion Left 60 Lateral Flexion Right 50 Comments pain w/all motions PT-OP-M Strength Start: 09/08/23 17:41 Freq: Status: Active Protocol: Document 09/09/23 12:47 [facility] (Rec: 09/09/23 13:34 [facility] [id number]) Hip Strength Hip Manual Muscle Testing Right Flexion (L2) 3 Fair External Rotation 4+ Good+ Internal Rotation 5 Normal Left Flexion (L2) 4- Good- External Rotation 4+ Good+ Internal Rotation 5 Normal Comments disocmfort in hip flex B Knee Strength Knee Manual Muscle Testing Right Flexion (S2) 4- Good- Extension (L3) 5 Normal Comments pain in HS Left Flexion (S2) 4+ Good+ Extension (L3) 5 Normal Comments pain post leg ext; feel in back w/flex Ankle/Foot Strength Ankle and Foot Manual Muscle Testing Right Dorsiflexion (L4) 4 Good Plantarflexion (S1) 5 Normal Left Dorsiflexion (L4) 4+ Good+ Plantarflexion (S1) 5 Normal Comments seated PF testing B PT-OP-Q Treatments Start: 09/08/23 17:41 Freq: Status: Active Protocol: Document 09/13/23 13:37 [facility] (Rec: 09/13/23 15:11 [facility] [id number]) Therapeutic Exercises Supine Exercises LTR Side bilateral Reps/Minutes 12 Comments cues for core engagement BKFO Supine Exercise Name TA engagement Side bilateral Reps/Minutes 15 diaphragmatic breathing Reps/Minutes 10 pelvic tilt Reps/Minutes 15 Comments cues for pelvis motion Standing Exercises hip abd Side bilateral Equipment Used peach band Reps/Minutes [address] thru stance leg Manual Therapy Treatment Joint Mobilizations hips Comments B ER free the ball FM; IR FM manual facilitation at end range Neuro Re-Education Treatment Balance Activities tandem Comments semi tandem B trials PT-OP-T Assessment and Plan Start: 09/08/23 17:41 Freq: Status: Active Protocol: Document 09/13/23 13:37 [facility] (Rec: 09/13/23 15:11 [facility] [id number]) Physical Therapy Assessment Goals strength Short Term Goal (STG) Pt will be indep w/HEP STG Duration 10/28/23 Jail Goal (LTG) Pt will score at least 4+/5 on all LE MMT B (including hip abd and ext) and at least 3/5 LPM to show improved core and LE stability in order to allow for pt to do more daily activities w/o inc pain. LTG Duration 12/02/23 activity Short Term Goal (STG) Pt will be able to do at least 2 miles worth of steps in her day w/o pain greater than 4/ 10 STG Duration 10/28/23 Jail Goal (LTG) Pt will return to being able to go for walks of at least 2 miles w/o pain stopping her from this activity. LTG Duration 12/02/22 balance Short Term Goal (STG) Pt will improve SLS to at least 5 sec B to show improved balance and stabilty STG Duration 10/28/23 Computer Technology Instructor Goal (LTG) Pt will improve SLS to at least 10 sec B to show improved balanec and stabilty LTG Duration 12/02/23 Assessment Summary Assessment Improved hip range w/less pinching after manual treatment. She reported some pain in back w/exercises and required some tactile cues for neutral spine positioning to improve this and staying in comfortable ranges. Physical Therapy Plan Frequency and Duration Frequency of Treatment 1-2x/wk Duration of treatment (weeks) 12 Plan of Care Start Date 09/09/23 Plan of Care End Date 12/02/23 Next Visit Focus/Plan Next Note Type Treatment Note Next Visit Plan review exercises; supine core progression, wall posture, hip abd strengthening and extensor, manual to lumbar spine & pelvis and STM along RA
--- NOTE | 2023-09-16 13:39 | PT.OTN ---
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) Radiculopathy, lumbar region (09/16/23) Dorsalgia, unspecified (09/16/23) Difficulty in walking, not elsewhere classified (09/16/23) Abnormal posture (09/16/23) Weakness (09/16/23) Other specified postprocedural states (09/16/23) Physical Therapy Treatment Note PT-OP-A Visit Information Start: 09/08/23 17:41 Freq: Status: Active Protocol: Document 09/16/23 12:57 [facility] (Rec: 09/16/23 13:39 [facility] [id number]) Out-Patient Physical Therapy Visit Information Visit Information Visit Type Treatment Note Visit Note 02/05 Visit Start Time 12:47 Visit Stop Time 13:30 Total Visit Minutes 43 Visit Number 3 Number of EDGE SAWYER Visits 0 PT-OP-B Current Condition Start: 09/08/23 17:41 Freq: Status: Active Protocol: Document 09/09/23 12:47 [facility] (Rec: 09/09/23 13:34 [facility] [id number]) Current Condition History of Current Condition Onset Date decades worse recently Current Complaints LBP w/L leg pain History of Current Condition Pt reports LBP that is chronic (decades). pt had TLIF of L3- 4 in 2019. Pt reports recently pain getting worse again. Pain mostly on L side of back, L hip and into L HS. She has a back brace that she is only using occ d/t MD rec. Pt is avoiding just about everything d/t pain. Pt is trying to track her activity and is aiming to get at least 1 mile total on a day. Pt was up to 4 miles total a day in Jul/aug 2022 and it started to keep decreasing. She has noticed she is standing against the wall a lot. She has occ had to use a cane.P thas a BIPAP machine and is supposed to sleep on her back but has been laying on her side. It has been about 8 years ago that this was difficult. Pt reports LUE and LLLE swell. Pt reports his L leg does give out and feel weak on her. She has had some falls but no injuries. Sometimes she notices she is leaning and she has knocked into the door. She feels like her balance isn 't so good. She doesn't ahve the same response in that leg. Pt does report a diastisis d/ t 2 C sections. Pt reports occ when walking her ankles will just freeze and she just can' t move it and has to slowly wiggle it to get going. Pt reports hx of appendectomy and gallbladder removal. [place]. She can't even make a whole block right now. Pt doing cardio pulm rehab maintence 2x/week. Treatment Goals Patient/Caregiver Goals Be able to walk, do housework, improved balance PT-OP-C Subjective Start: 09/08/23 17:41 Freq: Status: Active Protocol: Document 09/16/23 12:57 [facility] (Rec: 09/16/23 13:39 [facility] [id number]) OP-PT Subjective Patient Comments Patient Comments Pt reports she felt good after last session but overdid it yesterday and had dificulty sleeping. Notes her fingers on L hand are numb today PT-OP-D Balance Start: 09/08/23 17:41 Freq: Status: Active Protocol: Document 09/09/23 12:47 [facility] (Rec: 09/09/23 13:34 [facility] [id number]) Balance Tests Single Limb Standing Single Limb- Right 3 sec Single Limb- Left 2 sec PT-OP-G Mobility & Gait Start: 09/08/23 17:41 Freq: Status: Active Protocol: Document 09/09/23 12:47 [facility] (Rec: 09/09/23 18:46 [facility] [id number]) OP Gait Assessment Comments Gait Comments Pt amb w/lat lean B and dec stance time w/o push off PT-OP-J Posture/Palpation/Skin Start: 09/08/23 17:41 Freq: Status: Active Protocol: Document 09/09/23 12:47 [facility] (Rec: 09/09/23 13:34 [facility] [id number]) Posture Evaluation Inocencia Postural Classification System Lumbar Protective Mechanism Left AP 0 Lumbar Protective Mechanism Right AP 0 Lumbar Protective Mechanism Left PA 0 Lumbar Protective Mechanism Right PA 0 Comments Posture Comments R rotated and L SB torso; iliac crest higher on R; mild higher greater trochanter on R PT-OP-K Range of Motion Start: 09/08/23 17:41 Freq: Status: Active Protocol: Document 09/09/23 12:47 [facility] (Rec: 09/09/23 13:34 [facility] [id number]) Lumbar Spine Range of Motion Lumbar Spine Active Percentage Flexion 5 Extension 25 Rotation Left 40 Rotation Right 20 Lateral Flexion Left 60 Lateral Flexion Right 50 Comments pain w/all motions PT-OP-M Strength Start: 09/08/23 17:41 Freq: Status: Active Protocol: Document 09/09/23 12:47 [facility] (Rec: 09/09/23 13:34 [facility] [id number]) Hip Strength Hip Manual Muscle Testing Right Flexion (L2) 3 Fair External Rotation 4+ Good+ Internal Rotation 5 Normal Left Flexion (L2) 4- Good- External Rotation 4+ Good+ Internal Rotation 5 Normal Comments disocmfort in hip flex B Knee Strength Knee Manual Muscle Testing Right Flexion (S2) 4- Good- Extension (L3) 5 Normal Comments pain in HS Left Flexion (S2) 4+ Good+ Extension (L3) 5 Normal Comments pain post leg ext; feel in back w/flex Ankle/Foot Strength Ankle and Foot Manual Muscle Testing Right Dorsiflexion (L4) 4 Good Plantarflexion (S1) 5 Normal Left Dorsiflexion (L4) 4+ Good+ Plantarflexion (S1) 5 Normal Comments seated PF testing B PT-OP-Q Treatments Start: 09/08/23 17:41 Freq: Status: Active Protocol: Document 09/16/23 12:57 [facility] (Rec: 09/16/23 13:39 [facility] [id number]) Therapeutic Exercises Supine Exercises LTR Side bilateral Reps/Minutes 12 Comments cues for core engagement BKFO Supine Exercise Name TA engagement Side bilateral Reps/Minutes 15 diaphragmatic breathing Reps/Minutes 10 pelvic tilt Reps/Minutes 15 Comments cues for pelvis motion Standing Exercises hip abd Side bilateral Equipment Used peach band Reps/Minutes [address] thru stance leg Manual Therapy Treatment Soft Tissue Mobilization abdomen Body Location L to R mostly especially RA border Mobilization Type Sustained Pressure Intensity/Depth Moderate Body Position Hooklying Comments LTR Joint Mobilizations hips Comments B inf FM Neuro Re-Education Treatment Balance Activities tandem Comments semi tandem B trials PT-OP-T Assessment and Plan Start: 09/08/23 17:41 Freq: Status: Active Protocol: Document 09/16/23 12:57 [facility] (Rec: 09/16/23 13:39 [facility] [id number]) Physical Therapy Assessment Goals strength Short Term Goal (STG) Pt will be indep w/HEP STG Duration 10/28/23 [employer] Goal (LTG) Pt will score at least 4+/5 on all LE MMT B (including hip abd and ext) and at least 3/5 LPM to show improved core and LE stability in order to allow for pt to do more daily activities w/o inc pain. LTG Duration 12/02/23 activity Short Term Goal (STG) Pt will be able to do at least 2 miles worth of steps in her day w/o pain greater than 4/ 10 STG Duration 10/28/23 [facility] Goal (LTG) Pt will return to being able to go for walks of at least 2 miles w/o pain stopping her from this activity. LTG Duration 12/02/22 balance Short Term Goal (STG) Pt will improve SLS to at least 5 sec B to show improved balance and stabilty STG Duration 10/28/23 [facility] Goal (LTG) Pt will improve SLS to at least 10 sec B to show improved balanec and stabilty LTG Duration 12/02/23 Assessment Summary Assessment Pt did well with exercises. Cues needed w/standing abd and BKFO for neutral core. She has abdomen restrictions likely related to scar tissue that are likely contributing to back pain and creating inc systemic tension. Physical Therapy Plan Frequency and Duration Frequency of Treatment 1-2x/wk Duration of treatment (weeks) 12 Plan of Care Start Date 09/09/23 Plan of Care End Date 12/02/23 Next Visit Focus/Plan Next Note Type Treatment Note Next Visit Plan review exercises; supine core progression, wall posture, hip abd strengthening and extensor, manual to lumbar spine & pelvis and STM along RA
--- NOTE | 2023-09-20 14:26 | PT.OTN ---
Current Diagnoses Spondylosis without myelopathy or radiculopathy, lumbar region (09/20/23) Radiculopathy, lumbar region (09/20/23) Dorsalgia, unspecified (09/20/23) Difficulty in walking, not elsewhere classified (09/20/23) Abnormal posture (09/20/23) Weakness (09/20/23) Other specified postprocedural states (09/20/23) Physical Therapy Treatment Note PT-OP-A Visit Information Start: 09/08/23 17:41 Freq: Status: Active Protocol: Document 09/20/23 13:34 [facility] (Rec: 09/20/23 14:20 [facility] [id number]) Out-Patient Physical Therapy Visit Information Visit Information Visit Type Treatment Note Visit Note 03/08 Visit Start Time 13:05 Visit Stop Time 13:45 Total Visit Minutes 40 Visit Number 4 Number of LVN Visits 1 PT-OP-B Current Condition Start: 09/08/23 17:41 Freq: Status: Active Protocol: Document 09/09/23 12:47 [facility] (Rec: 09/09/23 13:34 [facility] [id number]) Current Condition History of Current Condition Onset Date decades worse recently Current Complaints LBP w/L leg pain History of Current Condition Pt reports LBP that is chronic (decades). pt had TLIF of L3- 4 in 2019. Pt reports recently pain getting worse again. Pain mostly on L side of back, L hip and into L HS. She has a back brace that she is only using occ d/t MD rec. Pt is avoiding just about everything d/t pain. Pt is trying to track her activity and is aiming to get at least 1 mile total on a day. Pt was up to 4 miles total a day in Jul/aug 2022 and it started to keep decreasing. She has noticed she is standing against the wall a lot. She has occ had to use a cane.P thas a BIPAP machine and is supposed to sleep on her back but has been laying on her side. It has been about 8 years ago that this was difficult. Pt reports LUE and LLLE swell. Pt reports his L leg does give out and feel weak on her. She has had some falls but no injuries. Sometimes she notices she is leaning and she has knocked into the door. She feels like her balance isn 't so good. She doesn't ahve the same response in that leg. Pt does report a diastisis d/ t 2 C sections. Pt reports occ when walking her ankles will just freeze and she just can' t move it and has to slowly wiggle it to get going. Pt reports hx of appendectomy and gallbladder removal. [place]. She can't even make a whole block right now. Pt doing cardio pulm rehab maintence 2x/week. Treatment Goals Patient/Caregiver Goals Be able to walk, do housework, improved balance PT-OP-C Subjective Start: 09/08/23 17:41 Freq: Status: Active Protocol: Document 09/20/23 13:34 [facility] (Rec: 09/20/23 14:20 [facility] [id number]) OP-PT Subjective Patient Comments Patient Comments Kim reports she is doing her home ex's and thinks PT is making a difference, but her balance is still poor. I need to learn how to stretch my tight hamstrings. PT-OP-D Balance Start: 09/08/23 17:41 Freq: Status: Active Protocol: Document 09/09/23 12:47 [facility] (Rec: 09/09/23 13:34 [facility] [id number]) Balance Tests Single Limb Standing Single Limb- Right 3 sec Single Limb- Left 2 sec PT-OP-G Mobility & Gait Start: 09/08/23 17:41 Freq: Status: Active Protocol: Document 09/09/23 12:47 [facility] (Rec: 09/09/23 18:46 [facility] [id number]) OP Gait Assessment Comments Gait Comments Pt amb w/lat lean B and dec stance time w/o push off PT-OP-J Posture/Palpation/Skin Start: 09/08/23 17:41 Freq: Status: Active Protocol: Document 09/09/23 12:47 [facility] (Rec: 09/09/23 13:34 [facility] [id number]) Posture Evaluation Inocencia Postural Classification System Lumbar Protective Mechanism Left AP 0 Lumbar Protective Mechanism Right AP 0 Lumbar Protective Mechanism Left PA 0 Lumbar Protective Mechanism Right PA 0 Comments Posture Comments R rotated and L SB torso; iliac crest higher on R; mild higher greater trochanter on R PT-OP-K Range of Motion Start: 09/08/23 17:41 Freq: Status: Active Protocol: Document 09/09/23 12:47 [facility] (Rec: 09/09/23 13:34 [facility] [id number]) Lumbar Spine Range of Motion Lumbar Spine Active Percentage Flexion 5 Extension 25 Rotation Left 40 Rotation Right 20 Lateral Flexion Left 60 Lateral Flexion Right 50 Comments pain w/all motions PT-OP-M Strength Start: 09/08/23 17:41 Freq: Status: Active Protocol: Document 09/09/23 12:47 [facility] (Rec: 09/09/23 13:34 [facility] [id number]) Hip Strength Hip Manual Muscle Testing Right Flexion (L2) 3 Fair External Rotation 4+ Good+ Internal Rotation 5 Normal Left Flexion (L2) 4- Good- External Rotation 4+ Good+ Internal Rotation 5 Normal Comments disocmfort in hip flex B Knee Strength Knee Manual Muscle Testing Right Flexion (S2) 4- Good- Extension (L3) 5 Normal Comments pain in HS Left Flexion (S2) 4+ Good+ Extension (L3) 5 Normal Comments pain post leg ext; feel in back w/flex Ankle/Foot Strength Ankle and Foot Manual Muscle Testing Right Dorsiflexion (L4) 4 Good Plantarflexion (S1) 5 Normal Left Dorsiflexion (L4) 4+ Good+ Plantarflexion (S1) 5 Normal Comments seated PF testing B PT-OP-Q Treatments Start: 09/08/23 17:41 Freq: Status: Active Protocol: Document 09/20/23 13:34 [facility] (Rec: 09/20/23 14:20 [facility] [id number]) Therapeutic Exercises Supine Exercises Hip adduction Supine Exercise Name ball squeeze - HEP Side bilateral Equipment Used blue/white ball Reps/Minutes 10x 2 breath cycles Comments cues for breath, ball dropped x1 PPT Supine Exercise Name posterior pelvic tilt Reps/Minutes 10x5SH Comments cues for breath LTR Side bilateral Reps/Minutes 12 Comments tactile cues for PPT and core engagement BKFO Supine Exercise Name TA engagement Side bilateral Reps/Minutes 15 Comments tactile cues for PPT and core engagement diaphragmatic breathing Reps/Minutes 10 Sitting Exercises HS stretch Sitting Exercise Name hamstring stretch Side bilateral Equipment Used mesh chair Reps/Minutes 2x30s ea Comments HEP Standing Exercises hip abd Side bilateral Equipment Used peach band Reps/Minutes 2x10 ea [address] cues [address] thru stance leg, TrA activation to reduce lumbar hyperext Self-Care/Home Management Treatment Education Patient Education Body Mechanics,Home Exercise Program Other Education Education to pt of interrelationship of diaphragm , TrA, pelvic floor and hip adductors and importance of not breathholding with ex's. Added to HEP: seated Hamstring stretch and supine ball squeeze - HO given. PT-OP-T Assessment and Plan Start: 09/08/23 17:41 Freq: Status: Active Protocol: Document 09/20/23 13:34 [facility] (Rec: 09/20/23 14:20 [facility] [id number]) Physical Therapy Assessment Goals strength Short Term Goal (STG) Pt will be indep w/HEP STG Duration 10/28/23 [facility] Goal (LTG) Pt will score at least 4+/5 on all LE MMT B (including hip abd and ext) and at least 3/5 LPM to show improved core and LE stability in order to allow for pt to do more daily activities w/o inc pain. LTG Duration 12/02/23 activity Short Term Goal (STG) Pt will be able to do at least 2 miles worth of steps in her day w/o pain greater than 4/ 10 STG Duration 10/28/23 Correction Goal (LTG) Pt will return to being able to go for walks of at least 2 miles w/o pain stopping her from this activity. LTG Duration 12/02/22 balance Short Term Goal (STG) Pt will improve SLS to at least 5 sec B to show improved balance and stabilty STG Duration 10/28/23 Correction Goal (LTG) Pt will improve SLS to at least 10 sec B to show improved balanec and stabilty LTG Duration 12/02/23 Assessment Summary Assessment Kim requires consistent cues for posterior pelvic tilt w/ ex's and Transverse abdominis activation w/ ex's. She demonstrates TrA weakness R>L with BKFO ex. Pt requires occasional cues for breathholding and shows improved self-awareness with repetition and slower pacing. Education to pt of interrelationship of diaphragm , TrA, pelvic floor and hip adductors and importance of not breathholding with ex's. Added to HEP: seated Hamstring stretch and supine ball squeeze - HO given. Physical Therapy Plan Frequency and Duration Frequency of Treatment 1-2x/wk Duration of treatment (weeks) 12 Plan of Care Start Date 09/09/23 Plan of Care End Date 12/02/23 Therapeutic Interventions Therapeutic Interventions Balance Training,Gait Training ,Home Exercise Program,Joint Mobilizations,Manual Therapy, Neuromuscular Re-education, Orthotic/Prosthetic Management ,Patient/Caregiver Education, Self-Care/Home Management,Soft Tissue Mobilization,Taping, Therapeutic Activities, Therapeutic Exercises Modalities Cold Pack/Ice Massage,Electric Stimulation,Hot Packs, Ultrasound Next Visit Focus/Plan Next Note Type Treatment Note Next Visit Plan Consider corner balance ex's. POC: review exercises; supine core progression, wall posture , hip abd strengthening and extensor, manual to lumbar spine & pelvis and STM along RA
--- NOTE | 2023-09-22 15:55 | PT.OTN ---
Addendum entered and electronically signed by Sarah Brito PT 09/23/23 08:55: PT direct supervision and direction to PT student. Original Note: Current Diagnoses Spondylosis without myelopathy or radiculopathy, lumbar region (09/22/23) Radiculopathy, lumbar region (09/22/23) Dorsalgia, unspecified (09/22/23) Difficulty in walking, not elsewhere classified (09/22/23) Abnormal posture (09/22/23) Weakness (09/22/23) Other specified postprocedural states (09/22/23) Physical Therapy Treatment Note PT-OP-A Visit Information Start: 09/08/23 17:41 Freq: Status: Active Protocol: Document 09/22/23 10:47 BS (Rec: 09/22/23 12:10 BS [id number]) Out-Patient Physical Therapy Visit Information Visit Information Visit Note 04/07 Visit Start Time 10:48 Visit Stop Time 11:33 Total Visit Minutes 45 Visit Number 5 Number of DATABASE MANAGEMENT SPECIALIST Visits 0 PT-OP-B Current Condition Start: 09/08/23 17:41 Freq: Status: Active Protocol: Document 09/09/23 12:47 LR (Rec: 09/09/23 13:34 [facility] [id number]) Current Condition History of Current Condition Onset Date decades worse recently Current Complaints LBP w/L leg pain History of Current Condition Pt reports LBP that is chronic (decades). pt had TLIF of L3- 4 in 2019. Pt reports recently pain getting worse again. Pain mostly on L side of back, L hip and into L HS. She has a back brace that she is only using occ d/t rec. Pt is avoiding just about everything d/t pain. Pt is trying to track her activity and is aiming to get at least 1 mile total on a day. Pt was up to 4 miles total a day in Jul/aug 2022 and it started to keep decreasing. She has noticed she is standing against the wall a lot. She has occ had to use a cane.P thas a BIPAP machine and is supposed to sleep on her back but has been laying on her side. It has been about 8 years ago that this was difficult. Pt reports LUE and LLLE swell. Pt reports his L leg does give out and feel weak on her. She has had some falls but no injuries. Sometimes she notices she is leaning and she has knocked into the door. She feels like her balance isn 't so good. She doesn't ahve the same response in that leg. Pt does report a diastisis d/ t 2 C sections. Pt reports occ when walking her ankles will just freeze and she just can' t move it and has to slowly wiggle it to get going. Pt reports hx of appendectomy and gallbladder removal. Pt [facility] [employer] [place] last fall. She can't even make a whole block right now. Pt doing cardio pulm rehab maintence 2x/week. Treatment Goals Patient/Caregiver Goals Be able to walk, do housework, improved balance PT-OP-C Subjective Start: 09/08/23 17:41 Freq: Status: Active Protocol: Document 09/22/23 10:47 BS (Rec: 09/22/23 12:10 BS [id number]) OP-PT Subjective Patient Comments Patient Comments had a lot of trouble walking yesterday, all night and this morning d/t pain in back. pain started yesterday mornign first thing. took two tylenol and used a heat pack which helped her sleep. hasn't done her HEP d/t high irritability. Went to lunch yesterday and could hardly sit in metal chair. R hip has been bugging her more than L since yesterday. Had cardio rehab yesterday and did bike & treadmill for 40 min. PT-OP-D Balance Start: 09/08/23 17:41 Freq: Status: Active Protocol: Document 09/09/23 12:47 [facility] (Rec: 09/09/23 13:34 [facility] [id number]) Balance Tests Single Limb Standing Single Limb- Right 3 sec Single Limb- Left 2 sec PT-OP-G Mobility & Gait Start: 09/08/23 17:41 Freq: Status: Active Protocol: Document 09/09/23 12:47 [facility] (Rec: 09/09/23 18:46 [facility] [id number]) OP Gait Assessment Comments Gait Comments Pt amb w/lat lean B and dec stance time w/o push off PT-OP-J Posture/Palpation/Skin Start: 09/08/23 17:41 Freq: Status: Active Protocol: Document 09/09/23 12:47 [facility] (Rec: 09/09/23 13:34 [facility] [id number]) Posture Evaluation Inocencia Postural Classification System Lumbar Protective Mechanism Left AP 0 Lumbar Protective Mechanism Right AP 0 Lumbar Protective Mechanism Left PA 0 Lumbar Protective Mechanism Right PA 0 Comments Posture Comments R rotated and L SB torso; iliac crest higher on R; mild higher greater trochanter on R PT-OP-K Range of Motion Start: 09/08/23 17:41 Freq: Status: Active Protocol: Document 09/09/23 12:47 [facility] (Rec: 09/09/23 13:34 [facility] [id number]) Lumbar Spine Range of Motion Lumbar Spine Active Percentage Flexion 5 Extension 25 Rotation Left 40 Rotation Right 20 Lateral Flexion Left 60 Lateral Flexion Right 50 Comments pain w/all motions PT-OP-M Strength Start: 09/08/23 17:41 Freq: Status: Active Protocol: Document 09/09/23 12:47 [facility] (Rec: 09/09/23 13:34 [facility] [id number]) Hip Strength Hip Manual Muscle Testing Right Flexion (L2) 3 Fair External Rotation 4+ Good+ Internal Rotation 5 Normal Left Flexion (L2) 4- Good- External Rotation 4+ Good+ Internal Rotation 5 Normal Comments disocmfort in hip flex B Knee Strength Knee Manual Muscle Testing Right Flexion (S2) 4- Good- Extension (L3) 5 Normal Comments pain in HS Left Flexion (S2) 4+ Good+ Extension (L3) 5 Normal Comments pain post leg ext; feel in back w/flex Ankle/Foot Strength Ankle and Foot Manual Muscle Testing Right Dorsiflexion (L4) 4 Good Plantarflexion (S1) 5 Normal Left Dorsiflexion (L4) 4+ Good+ Plantarflexion (S1) 5 Normal Comments seated PF testing B PT-OP-Q Treatments Start: 09/08/23 17:41 Freq: Status: Active Protocol: Document 09/22/23 10:47 BS (Rec: 09/22/23 12:10 BS [id number]) Therapeutic Exercises Supine Exercises PPT Supine Exercise Name posterior pelvic tilt Reps/Minutes 10x5SH Comments cues for breath BKFO Supine Exercise Name TA engagement Side bilateral Reps/Minutes 15 Comments tactile cues for PPT and core engagement Sitting Exercises ball squeeze Sitting Exercise Name ball squeeze sitting EOB Reps/Minutes x10 Comments cue to squeeze less & maintain neutral spine HS stretch Sitting Exercise Name hamstring stretch Side bilateral Equipment Used EOB Reps/Minutes 2x30s ea Comments pt had consistent pain in back w/, discontinued Manual Therapy Treatment Soft Tissue Mobilization hip Comments R lat hip STM in hooklying with IR Joint Mobilizations lumbar Comments gapping w/ passive flex L5-S1 FM hips Comments Free the ball R IR&ER FM R inf FM R IR hip on axis FM PT-OP-T Assessment and Plan Start: 09/08/23 17:41 Freq: Status: Active Protocol: Document 09/22/23 10:47 BS (Rec: 09/22/23 12:10 BS [id number]) Physical Therapy Assessment Goals strength Short Term Goal (STG) Pt will be indep w/HEP STG Duration 10/28/23 Detention Goal (LTG) Pt will score at least 4+/5 on all LE MMT B (including hip abd and ext) and at least 3/5 LPM to show improved core and LE stability in order to allow for pt to do more daily activities w/o inc pain. LTG Duration 12/02/23 activity Short Term Goal (STG) Pt will be able to do at least 2 miles worth of steps in her day w/o pain greater than 4/ 10 STG Duration 10/28/23 Detention Goal (LTG) Pt will return to being able to go for walks of at least 2 miles w/o pain stopping her from this activity. LTG Duration 12/02/22 balance Short Term Goal (STG) Pt will improve SLS to at least 5 sec B to show improved balance and stabilty STG Duration 10/28/23 Ice House Supervisor Goal (LTG) Pt will improve SLS to at least 10 sec B to show improved balanec and stabilty LTG Duration 12/02/23 Assessment Summary Assessment Pt tolerated treatment today well. Pain was most consistently in R lateral hip, w/ tenderness to palpation and pain w/ flex & ER specifically. Pt able to activate TrA with cueing during therex however was weak and hard to maintain. Pt pain , mobility, & gait improved after manual. Hamstring stretch taken out of HEP d/t increase pain in back during it, even w/ modifications. Physical Therapy Plan Frequency and Duration Frequency of Treatment 1-2x/wk Duration of treatment (weeks) 12 Plan of Care Start Date 09/09/23 Plan of Care End Date 01/04/24 Next Visit Focus/Plan Next Note Type Treatment Note Next Visit Plan Manual: PPIVMs/gapping in lumbar spine to encourage flexion, hip mobs, pelvic FM POC: review HEP, advance core, hip abd (side steps, clam shells), wall posture
--- NOTE | 2023-09-29 17:40 | PT.OTN ---
Addendum entered and electronically signed by Sarah Brito PT 09/29/23 17:51: PT direct supervision and direction to PT student. Original Note: Current Diagnoses Spondylosis without myelopathy or radiculopathy, lumbar region (09/29/23) Radiculopathy, lumbar region (09/29/23) Dorsalgia, unspecified (09/29/23) Difficulty in walking, not elsewhere classified (09/29/23) Abnormal posture (09/29/23) Weakness (09/29/23) Other specified postprocedural states (09/29/23) Physical Therapy Treatment Note PT-OP-A Visit Information Start: 09/08/23 17:41 Freq: Status: Active Protocol: Document 09/29/23 11:35 BS (Rec: 09/29/23 12:29 BS [id number]) Out-Patient Physical Therapy Visit Information Visit Information Visit Type Treatment Note Visit Start Time 11:36 Visit Stop Time 12:16 Total Visit Minutes 40 Visit Number 6 PT-OP-B Current Condition Start: 09/08/23 17:41 Freq: Status: Active Protocol: Document 09/09/23 12:47 LR (Rec: 09/09/23 13:34 [facility] [id number]) Current Condition History of Current Condition Onset Date decades worse recently Current Complaints LBP w/L leg pain History of Current Condition Pt reports LBP that is chronic (decades). pt had TLIF of L3- 4 in 2019. Pt reports recently pain getting worse again. Pain mostly on L side of back, L hip and into L HS. She has a back brace that she is only using occ d/t MD rec. Pt is avoiding just about everything d/t pain. Pt is trying to track her activity and is aiming to get at least 1 mile total on a day. Pt was up to 4 miles total a day in Jul/aug 2022 and it started to keep decreasing. She has noticed she is standing against the wall a lot. She has occ had to use a cane.P thas a BIPAP machine and is supposed to sleep on her back but has been laying on her side. It has been about 8 years ago that this was difficult. Pt reports LUE and LLLE swell. Pt reports his L leg does give out and feel weak on her. She has had some falls but no injuries. Sometimes she notices she is leaning and she has knocked into the door. She feels like her balance isn 't so good. She doesn't ahve the same response in that leg. Pt does report a diastisis d/ t 2 C sections. Pt reports occ when walking her ankles will just freeze and she just can' t move it and has to slowly wiggle it to get going. Pt reports hx of appendectomy and gallbladder removal. Pt [place] [employer] [place] last fall. She can't even make a whole block right now. Pt doing cardio pulm rehab maintence 2x/week. Treatment Goals Patient/Caregiver Goals Be able to walk, do housework, improved balance PT-OP-C Subjective Start: 09/08/23 17:41 Freq: Status: Active Protocol: Document 09/29/23 11:35 BS (Rec: 09/29/23 12:29 BS [id number]) OP-PT Subjective Patient Comments Patient Comments Pt reports that she did well after last visit and has been able to walk more throughout day during errands without as much pain. gave her brace that seems to help when shes out and about. PT-OP-D Balance Start: 09/08/23 17:41 Freq: Status: Active Protocol: Document 09/09/23 12:47 [facility] (Rec: 09/09/23 13:34 [facility] [id number]) Balance Tests Single Limb Standing Single Limb- Right 3 sec Single Limb- Left 2 sec PT-OP-G Mobility & Gait Start: 09/08/23 17:41 Freq: Status: Active Protocol: Document 09/09/23 12:47 [facility] (Rec: 09/09/23 18:46 [facility] [id number]) OP Gait Assessment Comments Gait Comments Pt amb w/lat lean B and dec stance time w/o push off PT-OP-J Posture/Palpation/Skin Start: 09/08/23 17:41 Freq: Status: Active Protocol: Document 09/09/23 12:47 [facility] (Rec: 09/09/23 13:34 [facility] [id number]) Posture Evaluation Inocencia Postural Classification System Lumbar Protective Mechanism Left AP 0 Lumbar Protective Mechanism Right AP 0 Lumbar Protective Mechanism Left PA 0 Lumbar Protective Mechanism Right PA 0 Comments Posture Comments R rotated and L SB torso; iliac crest higher on R; mild higher greater trochanter on R PT-OP-K Range of Motion Start: 09/08/23 17:41 Freq: Status: Active Protocol: Document 09/09/23 12:47 [facility] (Rec: 09/09/23 13:34 [facility] [id number]) Lumbar Spine Range of Motion Lumbar Spine Active Percentage Flexion 5 Extension 25 Rotation Left 40 Rotation Right 20 Lateral Flexion Left 60 Lateral Flexion Right 50 Comments pain w/all motions PT-OP-M Strength Start: 09/08/23 17:41 Freq: Status: Active Protocol: Document 09/09/23 12:47 [facility] (Rec: 09/09/23 13:34 [facility] [id number]) Hip Strength Hip Manual Muscle Testing Right Flexion (L2) 3 Fair External Rotation 4+ Good+ Internal Rotation 5 Normal Left Flexion (L2) 4- Good- External Rotation 4+ Good+ Internal Rotation 5 Normal Comments disocmfort in hip flex B Knee Strength Knee Manual Muscle Testing Right Flexion (S2) 4- Good- Extension (L3) 5 Normal Comments pain in HS Left Flexion (S2) 4+ Good+ Extension (L3) 5 Normal Comments pain post leg ext; feel in back w/flex Ankle/Foot Strength Ankle and Foot Manual Muscle Testing Right Dorsiflexion (L4) 4 Good Plantarflexion (S1) 5 Normal Left Dorsiflexion (L4) 4+ Good+ Plantarflexion (S1) 5 Normal Comments seated PF testing B PT-OP-Q Treatments Start: 09/08/23 17:41 Freq: Status: Active Protocol: Document 09/29/23 11:35 BS (Rec: 09/29/23 12:29 BS [id number]) Therapeutic Exercises Supine Exercises Heel slides Side bilateral Reps/Minutes x10 Comments cues to breathe and keep core engaged PPT Supine Exercise Name posterior pelvic tilt Reps/Minutes 10x5SH Comments cues for breath BKFO Supine Exercise Name TA engagement Side bilateral Reps/Minutes 15 Comments tactile cues for PPT and core engagement pelvic tilt Supine Exercise Name PPT with mini marches Side bilateral Reps/Minutes x10ea Comments cues to keep lumbar down into mat Sitting Exercises HS stretch Sitting Exercise Name hamstring stretch Side bilateral Equipment Used EOB Reps/Minutes x10s ea Comments HEP review, no pain in back Manual Therapy Treatment Soft Tissue Mobilization back Comments L paraspinals lumbar region STM Joint Mobilizations lumbar Comments gapping w/ passive flex L2-3 FM hips Comments R inf FM PT-OP-T Assessment and Plan Start: 09/08/23 17:41 Freq: Status: Active Protocol: Document 09/29/23 11:35 BS (Rec: 09/29/23 12:29 BS [id number]) Physical Therapy Assessment Goals strength Short Term Goal (STG) Pt will be indep w/HEP STG Duration 10/28/23 Tower Watchman Goal (LTG) Pt will score at least 4+/5 on all LE MMT B (including hip abd and ext) and at least 3/5 LPM to show improved core and LE stability in order to allow for pt to do more daily activities w/o inc pain. LTG Duration 12/02/23 activity Short Term Goal (STG) Pt will be able to do at least 2 miles worth of steps in her day w/o pain greater than 4/ 10 STG Duration 10/28/23 Tower Watchman Goal (LTG) Pt will return to being able to go for walks of at least 2 miles w/o pain stopping her from this activity. LTG Duration 12/02/22 balance Short Term Goal (STG) Pt will improve SLS to at least 5 sec B to show improved balance and stabilty STG Duration 10/28/23 Tower Watchman Goal (LTG) Pt will improve SLS to at least 10 sec B to show improved balanec and stabilty LTG Duration 12/02/23 Assessment Summary Assessment Pt did very well with treatment today. Overall had less pain in back with HEP and was able to progress PPT to holding with mini march in hooklying. Pt had some pain in L LB during R january, but pain improved when cued to keep L pelvis into mat table. Pt encouraged to try small intentional walk this weekend to see how it goes. Physical Therapy Plan Frequency and Duration Frequency of Treatment 1-2x/wk Duration of treatment (weeks) 12 Plan of Care Start Date 09/09/23 Plan of Care End Date 12/02/23 Next Visit Focus/Plan Next Note Type Treatment Note Next Visit Plan Manual: PPIVMs/gapping in lumbar spine to encourage flexion, hip mobs, pelvic FM POC: review HEP, advance core, hip abd (side steps, clam shells), wall posture
--- NOTE | 2023-10-01 11:24 | PT.OTN ---
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) Radiculopathy, lumbar region (10/01/23) Dorsalgia, unspecified (10/01/23) Difficulty in walking, not elsewhere classified (10/01/23) Abnormal posture (10/01/23) Weakness (10/01/23) Other specified postprocedural states (10/01/23) Physical Therapy Treatment Note PT-OP-A Visit Information Start: 09/08/23 17:41 Freq: Status: Active Protocol: Document 10/01/23 10:36 NB (Rec: 10/01/23 11:24 NB [id number]) Out-Patient Physical Therapy Visit Information Visit Information Visit Type Treatment Note Visit Start Time 10:36 Visit Stop Time 11:16 Total Visit Minutes 40 Visit Number 7 Number of MOTION PICTURE COMMENTATOR Visits 1 PT-OP-B Current Condition Start: 09/08/23 17:41 Freq: Status: Active Protocol: Document 09/09/23 12:47 [facility] (Rec: 09/09/23 13:34 [facility] [id number]) Current Condition History of Current Condition Onset Date decades worse recently Current Complaints LBP w/L leg pain History of Current Condition Pt reports LBP that is chronic (decades). pt had TLIF of L3- 4 in 2020. Pt reports recently pain getting worse again. Pain mostly on L side of back, L hip and into L HS. She has a back brace that she is only using occ d/t MD rec. Pt is avoiding just about everything d/t pain. Pt is trying to track her activity and is aiming to get at least 1 mile total on a day. Pt was up to 4 miles total a day in Jul/aug 2022 and it started to keep decreasing. She has noticed she is standing against the wall a lot. She has occ had to use a cane.P thas a BIPAP machine and is supposed to sleep on her back but has been laying on her side. It has been about 8 years ago that this was difficult. Pt reports LUE and LLLE swell. Pt reports his L leg does give out and feel weak on her. She has had some falls but no injuries. Sometimes she notices she is leaning and she has knocked into the door. She feels like her balance isn 't so good. She doesn't ahve the same response in that leg. Pt does report a diastisis d/ t 2 C sections. Pt reports occ when walking her ankles will just freeze and she just can' t move it and has to slowly wiggle it to get going. Pt reports hx of appendectomy and gallbladder removal. [place] [employer] [place]. She can't even make a whole block right now. Pt doing cardio pulm rehab maintence 2x/week. Treatment Goals Patient/Caregiver Goals Be able to walk, do housework, improved balance PT-OP-C Subjective Start: 09/08/23 17:41 Freq: Status: Active Protocol: Document 10/01/23 10:36 [facility] (Rec: 10/01/23 11:24 [facility] [id number]) OP-PT Subjective Patient Comments Patient Comments Pt reports that she had a two hour class yesterday and got up when she coud, then went walking which made back worse. Then she did her arm compressions which was more sitting. If she wears her brace before doing errands at home it helps a lot when she goes out without it, but she forgot to use it yesterday and today. She reports issues with hands going numb and worries about that progressing to her feet. PT-OP-D Balance Start: 09/08/23 17:41 Freq: Status: Active Protocol: Document 09/09/23 12:47 [facility] (Rec: 09/09/23 13:34 [facility] [id number]) Balance Tests Single Limb Standing Single Limb- Right 3 sec Single Limb- Left 2 sec PT-OP-G Mobility & Gait Start: 09/08/23 17:41 Freq: Status: Active Protocol: Document 09/09/23 12:47 [facility] (Rec: 09/09/23 18:46 [facility] [id number]) OP Gait Assessment Comments Gait Comments Pt amb w/lat lean B and dec stance time w/o push off PT-OP-J Posture/Palpation/Skin Start: 09/08/23 17:41 Freq: Status: Active Protocol: Document 09/09/23 12:47 [facility] (Rec: 09/09/23 13:34 [facility] [id number]) Posture Evaluation Inocencia Postural Classification System Lumbar Protective Mechanism Left AP 0 Lumbar Protective Mechanism Right AP 0 Lumbar Protective Mechanism Left PA 0 Lumbar Protective Mechanism Right PA 0 Comments Posture Comments R rotated and L SB torso; iliac crest higher on R; mild higher greater trochanter on R PT-OP-K Range of Motion Start: 09/08/23 17:41 Freq: Status: Active Protocol: Document 09/09/23 12:47 [facility] (Rec: 09/09/23 13:34 [facility] [id number]) Lumbar Spine Range of Motion Lumbar Spine Active Percentage Flexion 5 Extension 25 Rotation Left 40 Rotation Right 20 Lateral Flexion Left 60 Lateral Flexion Right 50 Comments pain w/all motions PT-OP-M Strength Start: 09/08/23 17:41 Freq: Status: Active Protocol: Document 09/09/23 12:47 [facility] (Rec: 09/09/23 13:34 [facility] [id number]) Hip Strength Hip Manual Muscle Testing Right Flexion (L2) 3 Fair External Rotation 4+ Good+ Internal Rotation 5 Normal Left Flexion (L2) 4- Good- External Rotation 4+ Good+ Internal Rotation 5 Normal Comments disocmfort in hip flex B Knee Strength Knee Manual Muscle Testing Right Flexion (S2) 4- Good- Extension (L3) 5 Normal Comments pain in HS Left Flexion (S2) 4+ Good+ Extension (L3) 5 Normal Comments pain post leg ext; feel in back w/flex Ankle/Foot Strength Ankle and Foot Manual Muscle Testing Right Dorsiflexion (L4) 4 Good Plantarflexion (S1) 5 Normal Left Dorsiflexion (L4) 4+ Good+ Plantarflexion (S1) 5 Normal Comments seated PF testing B PT-OP-Q Treatments Start: 09/08/23 17:41 Freq: Status: Active Protocol: Document 10/01/23 10:36 [facility] (Rec: 10/01/23 11:24 [facility] [id number]) Therapeutic Exercises Supine Exercises Heel slides Side bilateral Equipment Used slider sheet Reps/Minutes x10 Comments cues to breathe and keep core engaged PPT Supine Exercise Name posterior pelvic tilt Reps/Minutes x10, 5x5SH Comments cues for breath LTR Side bilateral Reps/Minutes 12 Comments tactile cues for PPT and core engagement BKFO Supine Exercise Name TA engagement Side bilateral Reps/Minutes 15 Comments tactile cues for PPT and core engagement pelvic tilt Supine Exercise Name PPT with mini marches Side bilateral Reps/Minutes 2x10ea Comments cues to keep lumbar down into mat, breaths Manual Therapy Treatment Soft Tissue Mobilization back Mobilization Type Rolling,Strumming,Sustained Pressure,Trigger Point Release Intensity/Depth Moderate Body Position Sidelying Comments L paraspinals lumbar region STM Self-Care/Home Management Treatment Education Patient Education Body Mechanics,Home Exercise Program Other Education Pt to add donning brace to their daily task list to improve compliance. Discussed vacuuming/mopping activities - ADLs Dos/Dont's HO given with instruction to take more steps with vacuuming . Pt obtained tennis balls but forgets to try - noted added to HO to try self-STM. PT-OP-T Assessment and Plan Start: 09/08/23 17:41 Freq: Status: Active Protocol: Document 10/01/23 10:36 [facility] (Rec: 10/01/23 11:24 [facility] [id number]) Physical Therapy Assessment Goals strength Short Term Goal (STG) Pt will be indep w/HEP STG Duration 10/28/23 Senior Care Goal (LTG) Pt will score at least 4+/5 on all LE MMT B (including hip abd and ext) and at least 3/5 LPM to show improved core and LE stability in order to allow for pt to do more daily activities w/o inc pain. LTG Duration 12/02/23 activity Short Term Goal (STG) Pt will be able to do at least 2 miles worth of steps in her day w/o pain greater than 4/ 10 STG Duration 10/28/23 Senior Care Goal (LTG) Pt will return to being able to go for walks of at least 2 miles w/o pain stopping her from this activity. LTG Duration 12/02/22 balance Short Term Goal (STG) Pt will improve SLS to at least 5 sec B to show improved balance and stabilty STG Duration 10/28/23 Senior Care Goal (LTG) Pt will improve SLS to at least 10 sec B to show improved balanec and stabilty LTG Duration 12/02/23 Assessment Summary Assessment Kim presents today with increased back pain after recent extended sitting activites and completing chores without using back brace at least two days. Treatment focus on core engagement with posterior pelvic tilt, pain relief strategies and manual therapy to lumbar paraspinals. Kim requires cues for slower pacing and not breathholding with ex's but is able to self- correct throughout treatment. She is encouraged to add putting brace on to daily task list and to try short walk again after having brace donned. She is also encouraged to try pelvic tilt with marching using back brace due to increased difficulty on soft bed. Verbal review of using tennis ball for self-STM to back. Verbal review w/ demonstration for performing vaccuuming/mopping w/ proper body mechanics - HO given w/ notes for putting on brace and trying self-STM. Pt reports decreased low back pain end of session compared to beginning. Physical Therapy Plan Frequency and Duration Frequency of Treatment 1-2x/wk Duration of treatment (weeks) 12 Plan of Care Start Date 09/09/23 Plan of Care End Date 12/02/23 Therapeutic Interventions Therapeutic Interventions Balance Training,Gait Training ,Home Exercise Program,Joint Mobilizations,Manual Therapy, Neuromuscular Re-education, Orthotic/Prosthetic Management ,Patient/Caregiver Education, Self-Care/Home Management,Soft Tissue Mobilization,Taping, Therapeutic Activities, Therapeutic Exercises Modalities Cold Pack/Ice Massage,Electric Stimulation,Hot Packs, Ultrasound Next Visit Focus/Plan Next Note Type Treatment Note Next Visit Plan Manual: PPIVMs/gapping in lumbar spine to encourage flexion, hip mobs, pelvic FM POC: review HEP, advance core, hip abd (side steps, clam shells), wall posture
--- NOTE | 2023-10-06 14:51 | PT.OTN ---
Current Diagnoses Spondylosis without myelopathy or radiculopathy, lumbar region (10/06/23) Radiculopathy, lumbar region (10/06/23) Dorsalgia, unspecified (10/06/23) Difficulty in walking, not elsewhere classified (10/06/23) Abnormal posture (10/06/23) Weakness (10/06/23) Other specified postprocedural states (10/06/23) Physical Therapy Treatment Note PT-OP-A Visit Information Start: 09/08/23 17:41 Freq: Status: Active Protocol: Document 10/06/23 10:49 [facility] (Rec: 10/06/23 14:50 [facility] [id number]) Out-Patient Physical Therapy Visit Information Visit Information Visit Type Treatment Note Visit Note 07/08 Visit Start Time 10:50 Visit Stop Time 11:35 Total Visit Minutes 45 Visit Number 8 Number of WORKERS' COMPENSATION MAGISTRATE Visits 0 PT-OP-B Current Condition Start: 09/08/23 17:41 Freq: Status: Active Protocol: Document 09/09/23 12:47 [facility] (Rec: 09/09/23 13:34 [facility] [id number]) Current Condition History of Current Condition Onset Date decades worse recently Current Complaints LBP w/L leg pain History of Current Condition Pt reports LBP that is chronic (decades). pt had TLIF of L3- 4 in 2019. Pt reports recently pain getting worse again. Pain mostly on L side of back, L hip and into L HS. She has a back brace that she is only using occ d/t MD rec. Pt is avoiding just about everything d/t pain. Pt is trying to track her activity and is aiming to get at least 1 mile total on a day. Pt was up to 4 miles total a day in Jul/aug 2022 and it started to keep decreasing. She has noticed she is standing against the wall a lot. She has occ had to use a cane.P thas a BIPAP machine and is supposed to sleep on her back but has been laying on her side. It has been about 8 years ago that this was difficult. Pt reports LUE and LLLE swell. Pt reports his L leg does give out and feel weak on her. She has had some falls but no injuries. Sometimes she notices she is leaning and she has knocked into the door. She feels like her balance isn 't so good. She doesn't ahve the same response in that leg. Pt does report a diastisis d/ t 2 C sections. Pt reports occ when walking her ankles will just freeze and she just can' t move it and has to slowly wiggle it to get going. Pt reports hx of appendectomy and gallbladder removal. Pt was walking [place] until last fall. She can't even make a whole block right now. Pt doing cardio pulm rehab maintence 2x/week. Treatment Goals Patient/Caregiver Goals Be able to walk, do housework, improved balance PT-OP-C Subjective Start: 09/08/23 17:41 Freq: Status: Active Protocol: Document 10/06/23 10:49 [facility] (Rec: 10/06/23 14:50 [facility] [id number]) OP-PT Subjective Patient Comments Patient Comments pt reports she did get 3 miles in one day over the weekend. She sat a lot on wednesday w/a mtg and driving and that still inc her back pain signficiantly. PT-OP-D Balance Start: 09/08/23 17:41 Freq: Status: Active Protocol: Document 09/09/23 12:47 [facility] (Rec: 09/09/23 13:34 [facility] [id number]) Balance Tests Single Limb Standing Single Limb- Right 3 sec Single Limb- Left 2 sec PT-OP-G Mobility & Gait Start: 09/08/23 17:41 Freq: Status: Active Protocol: Document 09/09/23 12:47 [facility] (Rec: 09/09/23 18:46 [facility] [id number]) OP Gait Assessment Comments Gait Comments Pt amb w/lat lean B and dec stance time w/o push off PT-OP-J Posture/Palpation/Skin Start: 09/08/23 17:41 Freq: Status: Active Protocol: Document 09/09/23 12:47 [facility] (Rec: 09/09/23 13:34 [facility] [id number]) Posture Evaluation Inocencia Postural Classification System Lumbar Protective Mechanism Left AP 0 Lumbar Protective Mechanism Right AP 0 Lumbar Protective Mechanism Left PA 0 Lumbar Protective Mechanism Right PA 0 Comments Posture Comments R rotated and L SB torso; iliac crest higher on R; mild higher greater trochanter on R PT-OP-K Range of Motion Start: 09/08/23 17:41 Freq: Status: Active Protocol: Document 09/09/23 12:47 [facility] (Rec: 09/09/23 13:34 [facility] [id number]) Lumbar Spine Range of Motion Lumbar Spine Active Percentage Flexion 5 Extension 25 Rotation Left 40 Rotation Right 20 Lateral Flexion Left 60 Lateral Flexion Right 50 Comments pain w/all motions PT-OP-M Strength Start: 09/08/23 17:41 Freq: Status: Active Protocol: Document 09/09/23 12:47 [facility] (Rec: 09/09/23 13:34 [facility] [id number]) Hip Strength Hip Manual Muscle Testing Right Flexion (L2) 3 Fair External Rotation 4+ Good+ Internal Rotation 5 Normal Left Flexion (L2) 4- Good- External Rotation 4+ Good+ Internal Rotation 5 Normal Comments disocmfort in hip flex B Knee Strength Knee Manual Muscle Testing Right Flexion (S2) 4- Good- Extension (L3) 5 Normal Comments pain in HS Left Flexion (S2) 4+ Good+ Extension (L3) 5 Normal Comments pain post leg ext; feel in back w/flex Ankle/Foot Strength Ankle and Foot Manual Muscle Testing Right Dorsiflexion (L4) 4 Good Plantarflexion (S1) 5 Normal Left Dorsiflexion (L4) 4+ Good+ Plantarflexion (S1) 5 Normal Comments seated PF testing B PT-OP-Q Treatments Start: 09/08/23 17:41 Freq: Status: Active Protocol: Document 10/06/23 10:49 [facility] (Rec: 10/06/23 14:50 [facility] [id number]) Therapeutic Exercises Sidelying Exercises clamshells Sidelying Exercise Name cues for knees flexed Side bilateral Reps/Minutes 12 ea Comments cues no back rot Manual Therapy Treatment Soft Tissue Mobilization hip Body Location R glute/ITB Mobilization Type Rolling Intensity/Depth Moderate Body Position Sidelying abdomen Comments L along descending colon and QL w/post dep FM Joint Mobilizations hips Comments B abd FM w/manual facilitation at end range PT-OP-T Assessment and Plan Start: 09/08/23 17:41 Freq: Status: Active Protocol: Document 10/06/23 10:49 [facility] (Rec: 10/06/23 14:50 [facility] [id number]) Physical Therapy Assessment Goals strength Short Term Goal (STG) Pt will be indep w/HEP STG Duration 10/28/23 Residential Goal (LTG) Pt will score at least 4+/5 on all LE MMT B (including hip abd and ext) and at least 3/5 LPM to show improved core and LE stability in order to allow for pt to do more daily activities w/o inc pain. LTG Duration 12/02/23 activity Short Term Goal (STG) Pt will be able to do at least 2 miles worth of steps in her day w/o pain greater than 4/ 10 STG Duration 10/28/23 Residential Goal (LTG) Pt will return to being able to go for walks of at least 2 miles w/o pain stopping her from this activity. LTG Duration 12/02/22 balance Short Term Goal (STG) Pt will improve SLS to at least 5 sec B to show improved balance and stabilty STG Duration 10/28/23 Residential Goal (LTG) Pt will improve SLS to at least 10 sec B to show improved balanec and stabilty LTG Duration 12/02/23 Assessment Summary Assessment Pt reports less pinching in hips in standing upon standing . She also had imrpoved dep of R pelvis and B hip abd which should improve standing gait. She still has weakness of hip abd whcih likely affects back and hip pain. Physical Therapy Plan Frequency and Duration Frequency of Treatment 1-2x/wk Duration of treatment (weeks) 12 Plan of Care Start Date 09/09/23 Plan of Care End Date 12/02/23 Next Visit Focus/Plan Next Note Type Treatment Note Next Visit Plan Cont to work on hip strength w /abd, ext and rotation, work on viseral mobility especially cecum and mesenteric root
--- NOTE | 2023-10-08 13:33 | PT.OTN ---
Current Diagnoses Spondylosis without myelopathy or radiculopathy, lumbar region (10/08/23) Radiculopathy, lumbar region (10/08/23) Dorsalgia, unspecified (10/08/23) Difficulty in walking, not elsewhere classified (10/08/23) Abnormal posture (10/08/23) Weakness (10/08/23) Other specified postprocedural states (10/08/23) Physical Therapy Treatment Note PT-OP-A Visit Information Start: 09/08/23 17:41 Freq: Status: Active Protocol: Document 10/08/23 11:37 [facility] (Rec: 10/08/23 12:18 [facility] [id number]) Out-Patient Physical Therapy Visit Information Visit Information Visit Type Treatment Note Visit Note 08/08 Visit Start Time 11:32 Visit Stop Time 12:16 Total Visit Minutes 44 Visit Number 9 Number of MANAGER ARCHITECTURE Visits 1 PT-OP-B Current Condition Start: 09/08/23 17:41 Freq: Status: Active Protocol: Document 09/09/23 12:47 [facility] (Rec: 09/09/23 13:34 [facility] [id number]) Current Condition History of Current Condition Onset Date decades worse recently Current Complaints LBP w/L leg pain History of Current Condition Pt reports LBP that is chronic (decades). pt had TLIF of L3- 4 in 2019. Pt reports recently pain getting worse again. Pain mostly on L side of back, L hip and into L HS. She has a back brace that she is only using occ d/t MD rec. Pt is avoiding just about everything d/t pain. Pt is trying to track her activity and is aiming to get at least 1 mile total on a day. Pt was up to 4 miles total a day in Jul/aug 2022 and it started to keep decreasing. She has noticed she is standing against the wall a lot. She has occ had to use a cane.P thas a BIPAP machine and is supposed to sleep on her back but has been laying on her side. It has been about 8 years ago that this was difficult. Pt reports LUE and LLLE swell. Pt reports his L leg does give out and feel weak on her. She has had some falls but no injuries. Sometimes she notices she is leaning and she has knocked into the door. She feels like her balance isn 't so good. She doesn't ahve the same response in that leg. Pt does report a diastisis d/ t 2 C sections. Pt reports occ when walking her ankles will just freeze and she just can' t move it and has to slowly wiggle it to get going. Pt reports hx of appendectomy and gallbladder removal. Pt was walking [place] [address] until last fall. She can't even make a whole block right now. Pt doing cardio pulm rehab maintence 2x/week. Treatment Goals Patient/Caregiver Goals Be able to walk, do housework, improved balance PT-OP-C Subjective Start: 09/08/23 17:41 Freq: Status: Active Protocol: Document 10/08/23 11:37 [facility] (Rec: 10/08/23 12:18 [facility] [id number]) OP-PT Subjective Patient Comments Patient Comments Kim reports she drove to [place] yesterday and walked around but had two pinching pains on the right side of her low back. She did most of her ex's this morning. PT-OP-D Balance Start: 09/08/23 17:41 Freq: Status: Active Protocol: Document 09/09/23 12:47 [facility] (Rec: 09/09/23 13:34 [facility] [id number]) Balance Tests Single Limb Standing Single Limb- Right 3 sec Single Limb- Left 2 sec PT-OP-G Mobility & Gait Start: 09/08/23 17:41 Freq: Status: Active Protocol: Document 09/09/23 12:47 [facility] (Rec: 09/09/23 18:46 [facility] [id number]) OP Gait Assessment Comments Gait Comments Pt amb w/lat lean B and dec stance time w/o push off PT-OP-J Posture/Palpation/Skin Start: 09/08/23 17:41 Freq: Status: Active Protocol: Document 09/09/23 12:47 [facility] (Rec: 09/09/23 13:34 [facility] [id number]) Posture Evaluation Inocencia Postural Classification System Lumbar Protective Mechanism Left AP 0 Lumbar Protective Mechanism Right AP 0 Lumbar Protective Mechanism Left PA 0 Lumbar Protective Mechanism Right PA 0 Comments Posture Comments R rotated and L SB torso; iliac crest higher on R; mild higher greater trochanter on R PT-OP-K Range of Motion Start: 09/08/23 17:41 Freq: Status: Active Protocol: Document 09/09/23 12:47 [facility] (Rec: 09/09/23 13:34 [facility] [id number]) Lumbar Spine Range of Motion Lumbar Spine Active Percentage Flexion 5 Extension 25 Rotation Left 40 Rotation Right 20 Lateral Flexion Left 60 Lateral Flexion Right 50 Comments pain w/all motions PT-OP-M Strength Start: 09/08/23 17:41 Freq: Status: Active Protocol: Document 09/09/23 12:47 [facility] (Rec: 09/09/23 13:34 [facility] [id number]) Hip Strength Hip Manual Muscle Testing Right Flexion (L2) 3 Fair External Rotation 4+ Good+ Internal Rotation 5 Normal Left Flexion (L2) 4- Good- External Rotation 4+ Good+ Internal Rotation 5 Normal Comments disocmfort in hip flex B Knee Strength Knee Manual Muscle Testing Right Flexion (S2) 4- Good- Extension (L3) 5 Normal Comments pain in HS Left Flexion (S2) 4+ Good+ Extension (L3) 5 Normal Comments pain post leg ext; feel in back w/flex Ankle/Foot Strength Ankle and Foot Manual Muscle Testing Right Dorsiflexion (L4) 4 Good Plantarflexion (S1) 5 Normal Left Dorsiflexion (L4) 4+ Good+ Plantarflexion (S1) 5 Normal Comments seated PF testing B PT-OP-Q Treatments Start: 09/08/23 17:41 Freq: Status: Active Protocol: Document 10/08/23 11:37 [facility] (Rec: 10/08/23 12:18 [facility] [id number]) Therapeutic Exercises Supine Exercises Heel slides Side bilateral Equipment Used slider sheet Reps/Minutes x20 Comments cues to breathe and keep core engaged Sidelying Exercises clamshells Sidelying Exercise Name cues for knees flexed Side bilateral Reps/Minutes 12 ea Comments cues no back rot Manual Therapy Treatment Soft Tissue Mobilization back Mobilization Type Rolling,Strumming,Sustained Pressure,Trigger Point Release Intensity/Depth Moderate Body Position Sidelying Comments L paraspinals lumbar region STM hip Body Location R glute/ITB Mobilization Type Rolling Intensity/Depth Moderate Body Position Sidelying Manual Techniques hamstring stretch Type manual Body Location bilateral hamstrings Body Position Hooklying Reps/Duration contract/relax 3 x10s ea Comments improved ROM PT-OP-T Assessment and Plan Start: 09/08/23 17:41 Freq: Status: Active Protocol: Document 10/08/23 11:37 [facility] (Rec: 10/08/23 12:18 [facility] [id number]) Physical Therapy Assessment Assessment Summary Assessment Kim demonstrates improved self-awareness of posterior pelvic tilt. She requires cues for pain-free range with posterior pelvic tilt with heel slides due to pinching on R side of lumbar. Pt's hamstring range of motion improves bilaterally w/ manual stretch using contract/relax technique. Physical Therapy Plan Frequency and Duration Frequency of Treatment 1-2x/wk Duration of treatment (weeks) 12 Plan of Care Start Date 09/09/23 Plan of Care End Date 12/02/23 Therapeutic Interventions Therapeutic Interventions Balance Training,Gait Training ,Home Exercise Program,Joint Mobilizations,Manual Therapy, Neuromuscular Re-education, Orthotic/Prosthetic Management ,Patient/Caregiver Education, Self-Care/Home Management,Soft Tissue Mobilization,Taping, Therapeutic Activities, Therapeutic Exercises Modalities Cold Pack/Ice Massage,Electric Stimulation,Hot Packs, Ultrasound Next Visit Focus/Plan Next Note Type Treatment Note Next Visit Plan Cont to work on hip strength w /abd, ext and rotation, work on viseral mobility especially cecum and mesenteric root
--- NOTE | 2023-10-12 18:04 | PT.OTN ---
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) Radiculopathy, lumbar region (10/12/23) Dorsalgia, unspecified (10/12/23) Difficulty in walking, not elsewhere classified (10/12/23) Abnormal posture (10/12/23) Weakness (10/12/23) Other specified postprocedural states (10/12/23) Physical Therapy Treatment Note PT-OP-A Visit Information Start: 09/08/23 17:41 Freq: Status: Active Protocol: Document 10/12/23 11:22 [facility] (Rec: 10/12/23 18:04 [facility] [id number]) Out-Patient Physical Therapy Visit Information Visit Information Visit Type Progress Note Visit Note 12/08 Visit Start Time 11:30 Visit Stop Time 12:02 Total Visit Minutes 32 Visit Number 10 Number of PRECISION HONER Visits 0 PT-OP-B Current Condition Start: 09/08/23 17:41 Freq: Status: Active Protocol: Document 09/09/23 12:47 [facility] (Rec: 09/09/23 13:34 [facility] [id number]) Current Condition History of Current Condition Onset Date decades worse recently Current Complaints LBP w/L leg pain History of Current Condition Pt reports LBP that is chronic (decades). pt had TLIF of L3- 4 in 2019. Pt reports recently pain getting worse again. Pain mostly on L side of back, L hip and into L HS. She has a back brace that she is only using occ d/t MD rec. Pt is avoiding just about everything d/t pain. Pt is trying to track her activity and is aiming to get at least 1 mile total on a day. Pt was up to 4 miles total a day in Jul/aug 2022 and it started to keep decreasing. She has noticed she is standing against the wall a lot. She has occ had to use a cane.P thas a BIPAP machine and is supposed to sleep on her back but has been laying on her side. It has been about 8 years ago that this was difficult. Pt reports LUE and LLLE swell. Pt reports his L leg does give out and feel weak on her. She has had some falls but no injuries. Sometimes she notices she is leaning and she has knocked into the door. She feels like her balance isn 't so good. She doesn't ahve the same response in that leg. Pt does report a diastisis d/ t 2 C sections. Pt reports occ when walking her ankles will just freeze and she just can' t move it and has to slowly wiggle it to get going. Pt reports hx of appendectomy and gallbladder removal. Pt [place]. She can't even make a whole block right now. Pt doing cardio pulm rehab maintence 2x/week. Treatment Goals Patient/Caregiver Goals Be able to walk, do housework, improved balance PT-OP-C Subjective Start: 09/08/23 17:41 Freq: Status: Active Protocol: Document 10/12/23 11:22 [facility] (Rec: 10/12/23 18:04 [facility] [id number]) OP-PT Subjective Patient Comments Patient Comments Pt reports she is moving slow today d/t middle and B spine taht is painful in lumbar spine. Hips are aching when laying down. Pt reports she is back down to about 1 mile a day right now w/errands. notes been pretty sore the past couple of weeks. Pt reports legs are more swollen PT-OP-D Balance Start: 09/08/23 17:41 Freq: Status: Active Protocol: Document 10/12/23 11:22 [facility] (Rec: 10/12/23 18:04 [facility] [id number]) Balance Tests Single Limb Standing Single Limb- Right 3 sec Single Limb- Left 2 sec PT-OP-G Mobility & Gait Start: 09/08/23 17:41 Freq: Status: Active Protocol: Document 09/09/23 12:47 [facility] (Rec: 09/09/23 18:46 [facility] [id number]) OP Gait Assessment Comments Gait Comments Pt amb w/lat lean B and dec stance time w/o push off PT-OP-J Posture/Palpation/Skin Start: 09/08/23 17:41 Freq: Status: Active Protocol: Document 10/12/23 11:22 [facility] (Rec: 10/12/23 18:04 [facility] [id number]) Posture Evaluation Inocencia Postural Classification System Lumbar Protective Mechanism Left AP 0 Lumbar Protective Mechanism Right AP 0 Lumbar Protective Mechanism Left PA 0 Lumbar Protective Mechanism Right PA 0 PT-OP-K Range of Motion Start: 09/08/23 17:41 Freq: Status: Active Protocol: Document 09/09/23 12:47 [facility] (Rec: 09/09/23 13:34 [facility] [id number]) Lumbar Spine Range of Motion Lumbar Spine Active Percentage Flexion 5 Extension 25 Rotation Left 40 Rotation Right 20 Lateral Flexion Left 60 Lateral Flexion Right 50 Comments pain w/all motions PT-OP-M Strength Start: 09/08/23 17:41 Freq: Status: Active Protocol: Document 10/12/23 11:22 [facility] (Rec: 10/12/23 18:04 [facility] [id number]) Hip Strength Hip Manual Muscle Testing Right Flexion (L2) 3+ Fair+ Abduction 3- Fair- External Rotation 4+ Good+ Internal Rotation 4 Good Comments discomfort w/IR Left Flexion (L2) 3+ Fair+ Abduction 3 Fair External Rotation 4+ Good+ Internal Rotation 5 Normal Comments disocmfort in hip flex B Knee Strength Knee Manual Muscle Testing Right Flexion (S2) 4+ Good+ Extension (L3) 5 Normal Comments pain in HS Left Flexion (S2) 5 Normal Extension (L3) 5 Normal Ankle/Foot Strength Ankle and Foot Manual Muscle Testing Right Dorsiflexion (L4) 4+ Good+ Plantarflexion (S1) 5 Normal Left Dorsiflexion (L4) 4+ Good+ Plantarflexion (S1) 5 Normal Comments seated PF testing B PT-OP-Q Treatments Start: 09/08/23 17:41 Freq: Status: Active Protocol: Document 10/12/23 11:22 [facility] (Rec: 10/12/23 18:04 [facility] [id number]) Manual Therapy Treatment Soft Tissue Mobilization hip flexor Body Location R Mobilization Type Sustained Pressure Intensity/Depth Superficial hip Body Location R glute/ITB Mobilization Type Rolling Intensity/Depth Moderate Body Position Sidelying Joint Mobilizations hips Comments R abd FM and free the ball ER FM PT-OP-T Assessment and Plan Start: 09/08/23 17:41 Freq: Status: Active Protocol: Document 10/12/23 11:22 [facility] (Rec: 10/12/23 18:04 [facility] [id number]) Physical Therapy Assessment Goals strength Short Term Goal (STG) Pt will be indep w/HEP STG Duration achieved advancinga s able Multineedle Shirrer Goal (LTG) Pt will score at least 4+/5 on all LE MMT B (including hip abd and ext) and at least 3/5 LPM to show improved core and LE stability in order to allow for pt to do more daily activities w/o inc pain. LTG Duration 12/02/23 activity Short Term Goal (STG) Pt will be able to do at least 2 miles worth of steps in her day w/o pain greater than 4/ 10 10/12-03/08 with about 1 to 1.5 miles on average STG Duration 10/28/23 Retirement Goal (LTG) Pt will return to being able to go for walks of at least 2 miles w/o pain stopping her from this activity. LTG Duration 12/02/22 balance Short Term Goal (STG) Pt will improve SLS to at least 5 sec B to show improved balance and stabilty 10/12-no change STG Duration 10/28/23 Multineedle Shirrer Goal (LTG) Pt will improve SLS to at least 10 sec B to show improved balanec and stabilty LTG Duration 12/02/23 Assessment Summary Assessment Pt shows some progress overall w/strength and is inc activity level. Pt reports she is able to now do at least 1 big chore a day so she does feel like she is now doing more around the house. She recently flared up w/inc pain overall though which likely affected testing today. Dec R hip pinching after manual. Cont PT to dec pain, improve function and strength. Physical Therapy Plan Frequency and Duration Frequency of Treatment 1-2x/wk Duration of treatment (weeks) 12 Plan of Care Start Date 09/09/23 Plan of Care End Date 12/02/23 Therapeutic Interventions Therapeutic Interventions Balance Training,Gait Training ,Home Exercise Program,Joint Mobilizations,Manual Therapy, Neuromuscular Re-education, Orthotic/Prosthetic Management ,Patient/Caregiver Education, Self-Care/Home Management,Soft Tissue Mobilization,Taping, Therapeutic Activities, Therapeutic Exercises Modalities Cold Pack/Ice Massage,Electric Stimulation,Hot Packs, Ultrasound Next Visit Focus/Plan Next Note Type Treatment Note Next Visit Plan Cont to work on hip strength w /abd, ext and rotation, work on viseral mobility especially cecum and mesenteric root
--- NOTE | 2023-10-15 13:26 | PT.OTN ---
Current Diagnoses Spondylosis without myelopathy or radiculopathy, lumbar region (10/15/23) Radiculopathy, lumbar region (10/15/23) Dorsalgia, unspecified (10/15/23) Difficulty in walking, not elsewhere classified (10/15/23) Abnormal posture (10/15/23) Weakness (10/15/23) Other specified postprocedural states (10/15/23) Physical Therapy Treatment Note PT-OP-A Visit Information Start: 09/08/23 17:41 Freq: Status: Active Protocol: Document 10/15/23 11:24 NBM (Rec: 10/15/23 12:22 NB [id number]) Out-Patient Physical Therapy Visit Information Visit Information Visit Type Treatment Note Visit Note 01/08 CGM 74 upon arrival today - juice provided. 79 end of session. Visit Start Time 11:20 Visit Stop Time 12:15 Total Visit Minutes 55 Visit Number 11 Number of TELEPHONE SURVEYOR Visits 1 PT-OP-B Current Condition Start: 09/08/23 17:41 Freq: Status: Active Protocol: Document 09/09/23 12:47 [facility] (Rec: 09/09/23 13:34 [facility] [id number]) Current Condition History of Current Condition Onset Date decades worse recently Current Complaints LBP w/L leg pain History of Current Condition Pt reports LBP that is chronic (decades). pt had TLIF of L3- 4 in 2019. Pt reports recently pain getting worse again. Pain mostly on L side of back, L hip and into L HS. She has a back brace that she is only using occ d/t MD rec. Pt is avoiding just about everything d/t pain. Pt is trying to track her activity and is aiming to get at least 1 mile total on a day. Pt was up to 4 miles total a day in Jul/aug 2022 and it started to keep decreasing. She has noticed she is standing against the wall a lot. She has occ had to use a cane.P thas a BIPAP machine and is supposed to sleep on her back but has been laying on her side. It has been about 8 years ago that this was difficult. Pt reports LUE and LLLE swell. Pt reports his L leg does give out and feel weak on her. She has had some falls but no injuries. Sometimes she notices she is leaning and she has knocked into the door. She feels like her balance isn 't so good. She doesn't ahve the same response in that leg. Pt does report a diastisis d/ t 2 C sections. Pt reports occ when walking her ankles will just freeze and she just can' t move it and has to slowly wiggle it to get going. Pt reports hx of appendectomy and gallbladder removal. [place] [employer] [place] last fall. She can't even make a whole block right now. Pt doing cardio pulm rehab maintence 2x/week. Treatment Goals Patient/Caregiver Goals Be able to walk, do housework, improved balance PT-OP-C Subjective Start: 09/08/23 17:41 Freq: Status: Active Protocol: Document 10/15/23 11:24 NB (Rec: 10/15/23 12:22 [facility] [id number]) OP-PT Subjective Patient Comments Patient Comments Pt reports CGM has been all over the place since last night. Stomach is bothering her. She sees screw eye assembler 10/20 and home hospice rn 10/27. She has been using the brace consistently at home and takes it off for errands. She was sitting for several hours yesterday to drive to a show and back. She has a therapy ball at home. She did several of her HEP ex's this morning. PT-OP-D Balance Start: 09/08/23 17:41 Freq: Status: Active Protocol: Document 10/12/23 11:22 [facility] (Rec: 10/12/23 18:04 [facility] [id number]) Balance Tests Single Limb Standing Single Limb- Right 3 sec Single Limb- Left 2 sec PT-OP-G Mobility & Gait Start: 09/08/23 17:41 Freq: Status: Active Protocol: Document 09/09/23 12:47 [facility] (Rec: 09/09/23 18:46 [facility] [id number]) OP Gait Assessment Comments Gait Comments Pt amb w/lat lean B and dec stance time w/o push off PT-OP-J Posture/Palpation/Skin Start: 09/08/23 17:41 Freq: Status: Active Protocol: Document 10/12/23 11:22 [facility] (Rec: 10/12/23 18:04 [facility] [id number]) Posture Evaluation Inocencia Postural Classification System Lumbar Protective Mechanism Left AP 0 Lumbar Protective Mechanism Right AP 0 Lumbar Protective Mechanism Left PA 0 Lumbar Protective Mechanism Right PA 0 PT-OP-K Range of Motion Start: 09/08/23 17:41 Freq: Status: Active Protocol: Document 09/09/23 12:47 [facility] (Rec: 09/09/23 13:34 [facility] [id number]) Lumbar Spine Range of Motion Lumbar Spine Active Percentage Flexion 5 Extension 25 Rotation Left 40 Rotation Right 20 Lateral Flexion Left 60 Lateral Flexion Right 50 Comments pain w/all motions PT-OP-M Strength Start: 09/08/23 17:41 Freq: Status: Active Protocol: Document 10/12/23 11:22 [facility] (Rec: 10/12/23 18:04 [facility] [id number]) Hip Strength Hip Manual Muscle Testing Right Flexion (L2) 3+ Fair+ Abduction 3- Fair- External Rotation 4+ Good+ Internal Rotation 4 Good Comments discomfort w/IR Left Flexion (L2) 3+ Fair+ Abduction 3 Fair External Rotation 4+ Good+ Internal Rotation 5 Normal Comments disocmfort in hip flex B Knee Strength Knee Manual Muscle Testing Right Flexion (S2) 4+ Good+ Extension (L3) 5 Normal Comments pain in HS Left Flexion (S2) 5 Normal Extension (L3) 5 Normal Ankle/Foot Strength Ankle and Foot Manual Muscle Testing Right Dorsiflexion (L4) 4+ Good+ Plantarflexion (S1) 5 Normal Left Dorsiflexion (L4) 4+ Good+ Plantarflexion (S1) 5 Normal Comments seated PF testing B PT-OP-Q Treatments Start: 09/08/23 17:41 Freq: Status: Active Protocol: Document 10/15/23 11:24 [facility] (Rec: 10/15/23 12:22 [facility] [id number]) Gym Equipment Therapeutic Ball seated Exercise Details holding handrail - HEP Ball Size/Color 65 cm Body Position seated Reps/Duration 15 ea Comments -pelvic clocks (12 (tactile cue), 3, 9, Circles CW/CCW -low back stretch w/ hip hinge Therapeutic Exercises Supine Exercises Hip adduction Supine Exercise Name ball squeeze - HEP Side bilateral Equipment Used blue/white ball Reps/Minutes 10x 2 breath cycles Comments cues for breath, ball dropped x1 Sitting Exercises hip ER Side bilateral Equipment Used Lvl 1 peach Tb Reps/Minutes 2x10 ball squeeze Sitting Exercise Name ball squeeze Side bilateral Equipment Used standard mesh chair Reps/Minutes x10 Comments cue to squeeze less & maintain neutral spine Manual Therapy Treatment Soft Tissue Mobilization back Mobilization Type Rolling,Strumming,Sustained Pressure,Trigger Point Release ,Other Intensity/Depth Moderate Body Position Sidelying Comments L paraspinals lumbar region STM manual pin and stretch to L QL 3x30s - positive feedback response Self-Care/Home Management Treatment Education Patient Education Body Mechanics,Home Exercise Program,Safety Other Education SOS: low blood glucose 74 per continuous glucose monitor (6- day average 138). Pt reports CGM level crashed shortly before appt. Pt has juice followed by 5 minutes later by an episode of diaphoresis which resolves with a 5 minutes rest break. Extra time spent stabilizing blood glucose level. EOS: CGM increases to 79 w/ pt declining further liquids or food and reporting no further symptoms. She sees screw eye assembler 10/20 and home hospice rn 10/27. Added to HEP: seated core on physioball: pelvic clocks, circles, marching - HO given. PT-OP-T Assessment and Plan Start: 09/08/23 17:41 Freq: Status: Active Protocol: Document 10/15/23 11:24 [facility] (Rec: 10/15/23 12:22 [facility] [id number]) Physical Therapy Assessment Goals strength Short Term Goal (STG) Pt will be indep w/HEP STG Duration achieved advancinga s able Custodial Goal (LTG) Pt will score at least 4+/5 on all LE MMT B (including hip abd and ext) and at least 3/5 LPM to show improved core and LE stability in order to allow for pt to do more daily activities w/o inc pain. LTG Duration 12/02/23 activity Short Term Goal (STG) Pt will be able to do at least 2 miles worth of steps in her day w/o pain greater than 4/ 10 10/12-03/08 with about 1 to 1.5 miles on average STG Duration 10/28/23 Production Metal Sprayer Goal (LTG) Pt will return to being able to go for walks of at least 2 miles w/o pain stopping her from this activity. LTG Duration 12/02/22 balance Short Term Goal (STG) Pt will improve SLS to at least 5 sec B to show improved balance and stabilty 10/12-no change STG Duration 10/28/23 Custodial Goal (LTG) Pt will improve SLS to at least 10 sec B to show improved balanec and stabilty LTG Duration 12/02/23 Assessment Summary Assessment Kim presents today with low blood glucose 74 per continuous glucose monitor (6- day average 138). Pt reports CGM level crashed shortly before appt. Pt has juice followed by 5 minutes later by an episode of diaphoresis which resolves with a 5 minutes rest break. Extra time spent stabilizing blood glucose level. CGM increases to 79 end of session with pt declining further liquids or food and reporting no further symptoms. She sees screw eye assembler 10/20 and home hospice rn . Treatment focus on seated hip and core strengtheing and manual therapy to low back. Pt requires tactile cues to avoid lumbar hyperextension with pelvic clocks. Pt's ability to differntiate pelvic motion from trunk motion improves with repetition and cueing. Palpable tension to L paraspinals improves with manual therapy. Added to HEP: seated core on physioball: pelvic clocks, circles, marching - HO given. Physical Therapy Plan Frequency and Duration Frequency of Treatment 1-2x/wk Duration of treatment (weeks) 12 Plan of Care Start Date 09/09/23 Plan of Care End Date 12/02/23 Therapeutic Interventions Therapeutic Interventions Balance Training,Gait Training ,Home Exercise Program,Joint Mobilizations,Manual Therapy, Neuromuscular Re-education, Orthotic/Prosthetic Management ,Patient/Caregiver Education, Self-Care/Home Management,Soft Tissue Mobilization,Taping, Therapeutic Activities, Therapeutic Exercises Modalities Cold Pack/Ice Massage,Electric Stimulation,Hot Packs, Ultrasound Next Visit Focus/Plan Next Note Type Treatment Note Next Visit Plan Cont to work on hip strength w /abd, ext and rotation, work on viseral mobility especially cecum and mesenteric root
--- NOTE | 2023-10-18 13:17 | PT.OTN ---
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 Visit Start Time 11:21 Visit Stop Time 12:05 Total Visit Minutes 44 Visit Number 12 Number of FITTER'S ASSISTANT Visits 2 PT-OP-B Current Condition Start: 09/08/23 17:41 Freq: Status: Active Protocol: Document 09/09/23 12:47 [facility] (Rec: 09/09/23 13:34 [facility] [id number]) Current Condition History of Current Condition Onset Date decades worse recently Current Complaints LBP w/L leg pain History of Current Condition Pt reports LBP that is chronic (decades). pt had TLIF of L3- 4 in 2019. Pt reports recently pain getting worse again. Pain mostly on L side of back, L hip and into L HS. She has a back brace that she is only using occ d/t MD rec. Pt is avoiding just about everything d/t pain. Pt is trying to track her activity and is aiming to get at least 1 mile total on a day. Pt was up to 4 miles total a day in Jul/aug 2022 and it started to keep decreasing. She has noticed she is standing against the wall a lot. She has occ had to use a cane.P thas a BIPAP machine and is supposed to sleep on her back but has been laying on her side. It has been about 8 years ago that this was difficult. Pt reports LUE and LLLE swell. Pt reports his L leg does give out and feel weak on her. She has had some falls but no injuries. Sometimes she notices she is leaning and she has knocked into the door. She feels like her balance isn 't so good. She doesn't ahve the same response in that leg. Pt does report a diastisis d/ t 2 C sections. Pt reports occ when walking her ankles will just freeze and she just can' t move it and has to slowly wiggle it to get going. Pt reports hx of appendectomy and gallbladder removal. Pt [place] [employer] [place] last fall. She can't even make a whole block right now. Pt doing cardio pulm rehab maintence 2x/week. Treatment Goals Patient/Caregiver Goals Be able to walk, do housework, improved balance PT-OP-C Subjective Start: 09/08/23 17:41 Freq: Status: Active Protocol: Document 10/18/23 11:26 [facility] (Rec: 10/18/23 12:12 [facility] [id number]) OP-PT Subjective Patient Comments Patient Comments Pt reports she wore her brace over the weekend but not yet today and she did three errands. She tried sitting on her therapy ball yesterday but it's too flat so she brought it in to inflate. She did not do her ex's but did walking. PT-OP-D Balance Start: 09/08/23 17:41 Freq: Status: Active Protocol: Document 10/12/23 11:22 [facility] (Rec: 10/12/23 18:04 [facility] [id number]) Balance Tests Single Limb Standing Single Limb- Right 3 sec Single Limb- Left 2 sec PT-OP-G Mobility & Gait Start: 09/08/23 17:41 Freq: Status: Active Protocol: Document 09/09/23 12:47 [facility] (Rec: 09/09/23 18:46 [facility] [id number]) OP Gait Assessment Comments Gait Comments Pt amb w/lat lean B and dec stance time w/o push off PT-OP-J Posture/Palpation/Skin Start: 09/08/23 17:41 Freq: Status: Active Protocol: Document 10/12/23 11:22 [facility] (Rec: 10/12/23 18:04 [facility] [id number]) Posture Evaluation Inocencia Postural Classification System Lumbar Protective Mechanism Left AP 0 Lumbar Protective Mechanism Right AP 0 Lumbar Protective Mechanism Left PA 0 Lumbar Protective Mechanism Right PA 0 PT-OP-K Range of Motion Start: 09/08/23 17:41 Freq: Status: Active Protocol: Document 09/09/23 12:47 [facility] (Rec: 09/09/23 13:34 [facility] [id number]) Lumbar Spine Range of Motion Lumbar Spine Active Percentage Flexion 5 Extension 25 Rotation Left 40 Rotation Right 20 Lateral Flexion Left 60 Lateral Flexion Right 50 Comments pain w/all motions PT-OP-M Strength Start: 09/08/23 17:41 Freq: Status: Active Protocol: Document 10/12/23 11:22 [facility] (Rec: 10/12/23 18:04 [facility] [id number]) Hip Strength Hip Manual Muscle Testing Right Flexion (L2) 3+ Fair+ Abduction 3- Fair- External Rotation 4+ Good+ Internal Rotation 4 Good Comments discomfort w/IR Left Flexion (L2) 3+ Fair+ Abduction 3 Fair External Rotation 4+ Good+ Internal Rotation 5 Normal Comments disocmfort in hip flex B Knee Strength Knee Manual Muscle Testing Right Flexion (S2) 4+ Good+ Extension (L3) 5 Normal Comments pain in HS Left Flexion (S2) 5 Normal Extension (L3) 5 Normal Ankle/Foot Strength Ankle and Foot Manual Muscle Testing Right Dorsiflexion (L4) 4+ Good+ Plantarflexion (S1) 5 Normal Left Dorsiflexion (L4) 4+ Good+ Plantarflexion (S1) 5 Normal Comments seated PF testing B PT-OP-Q Treatments Start: 09/08/23 17:41 Freq: Status: Active Protocol: Document 10/18/23 11:26 [facility] (Rec: 10/18/23 12:12 [facility] [id number]) Gym Equipment Therapeutic Ball seated Exercise Details holding handrail - HEP Ball Size/Color 65 cm Body Position seated Reps/Duration 15 ea Comments -pelvic clocks (12 (tactile cue), 3, 9, Circles CW/CCW -low back stretch w/ hip hinge -iram shoulder ext x10 Lvl 1 peach Tb -resisted trunk rotation Lvl 1 peach Tb Sport Cord back Exercise Details initial cues for core activation and upright posture Cord/Resistance green Reps/Duration 6x 6 steps Comments bwd walk - L posterior hip discomfort with fatigue fwd Exercise Details initial cues for core activation and upright posture Cord/Resistance green Reps/Duration 6 x 6 steps Comments fwd walk Therapeutic Exercises Sitting Exercises trunk rotation Side bilateral Equipment Used mesh chair Reps/Minutes x10 ea Comments cue for head moving with trunk hip ER Side bilateral Equipment Used Lvl 1 peach Tb Reps/Minutes x15 ball squeeze Sitting Exercise Name ball squeeze Side bilateral Equipment Used standard mesh chair Reps/Minutes x15 Comments cue to squeeze less & maintain neutral spine Standing Exercises hip ext Side bilateral Equipment Used Lvl 1 peach Tb Reps/Minutes x10 hip abd Standing Exercise Name resisted sidesteps Side bilateral Equipment Used peach band Reps/Minutes 2x10 [address] cues [address] thru stance leg, TrA activation to reduce lumbar hyperext Manual Therapy Treatment Soft Tissue Mobilization back Mobilization Type Rolling,Strumming,Sustained Pressure,Trigger Point Release ,Other Intensity/Depth Moderate Body Position Sidelying Comments L paraspinals lumbar region STM manual pin and stretch to L QL 2x30s hip Body Location R glute/ITB, piriformis Mobilization Type Cross-Friction,Rolling, Strumming,Sustained Pressure Intensity/Depth Moderate Body Position Sidelying Comments circular strokes to IT band PT-OP-T Assessment and Plan Start: 09/08/23 17:41 Freq: Status: Active Protocol: Document 10/18/23 11:26 [facility] (Rec: 10/18/23 12:12 [facility] [id number]) Physical Therapy Assessment Goals strength Short Term Goal (STG) Pt will be indep w/HEP STG Duration achieved advancinga s able Metal Riveting Machine Operator Goal (LTG) Pt will score at least 4+/5 on all LE MMT B (including hip abd and ext) and at least 3/5 LPM to show improved core and LE stability in order to allow for pt to do more daily activities w/o inc pain. LTG Duration 12/02/23 activity Short Term Goal (STG) Pt will be able to do at least 2 miles worth of steps in her day w/o pain greater than 4/ 10 10/12-03/08 with about 1 to 1.5 miles on average STG Duration 10/28/23 Group Home Goal (LTG) Pt will return to being able to go for walks of at least 2 miles w/o pain stopping her from this activity. LTG Duration 12/02/22 balance Short Term Goal (STG) Pt will improve SLS to at least 5 sec B to show improved balance and stabilty 10/12-no change STG Duration 10/28/23 Metal Riveting Machine Operator Goal (LTG) Pt will improve SLS to at least 10 sec B to show improved balanec and stabilty LTG Duration 12/02/23 Assessment Summary Assessment Kim is able to use her inflated therapy ball to perform seated core ex's with resistance bands. She fatigues quickly with resisted sidestepping and requires cues for resisted hip extension to avoid lumbar hyperextension and knee bend with fatigue. She demonstrates good recall of previous cues from 10/15 visit with seated physioball exercises. Blood glucose remains stable throughout treatment. Physical Therapy Plan Frequency and Duration Frequency of Treatment 1-2x/wk Duration of treatment (weeks) 12 Plan of Care Start Date 09/09/23 Plan of Care End Date 12/02/23 Therapeutic Interventions Therapeutic Interventions Balance Training,Gait Training ,Home Exercise Program,Joint Mobilizations,Manual Therapy, Neuromuscular Re-education, Orthotic/Prosthetic Management ,Patient/Caregiver Education, Self-Care/Home Management,Soft Tissue Mobilization,Taping, Therapeutic Activities, Therapeutic Exercises Modalities Cold Pack/Ice Massage,Electric Stimulation,Hot Packs, Ultrasound Next Visit Focus/Plan Next Note Type Treatment Note Next Visit Plan Cont to work on hip strength w /abd, ext and rotation, work on viseral mobility especially cecum and mesenteric root
--- NOTE | 2023-10-20 18:06 | PT.OTN ---
Addendum entered and electronically signed by Sarah Brito PT 10/25/23 08:08: PT direct supervision and direction to PT student. Original Note: Current Diagnoses Spondylosis without myelopathy or radiculopathy, lumbar region (10/20/23) Radiculopathy, lumbar region (10/20/23) Dorsalgia, unspecified (10/20/23) Difficulty in walking, not elsewhere classified (10/20/23) Abnormal posture (10/20/23) Weakness (10/20/23) Other specified postprocedural states (10/20/23) Physical Therapy Treatment Note PT-OP-A Visit Information Start: 09/08/23 17:41 Freq: Status: Active Protocol: Document 10/20/23 11:18 BS (Rec: 10/20/23 12:23 BS [id number]) Out-Patient Physical Therapy Visit Information Visit Information Visit Type Treatment Note Visit Start Time 11:20 Visit Stop Time 12:00 Total Visit Minutes 40 Visit Number 13 Number of SKIDDER OPERATOR Visits 0 PT-OP-B Current Condition Start: 09/08/23 17:41 Freq: Status: Active Protocol: Document 09/09/23 12:47 [facility] (Rec: 09/09/23 13:34 [facility] [id number]) Current Condition History of Current Condition Onset Date decades worse recently Current Complaints LBP w/L leg pain History of Current Condition Pt reports LBP that is chronic (decades). pt had TLIF of L3- 4 in 2019. Pt reports recently pain getting worse again. Pain mostly on L side of back, L hip and into L HS. She has a back brace that she is only using occ d/t rec. Pt is avoiding just about everything d/t pain. Pt is trying to track her activity and is aiming to get at least 1 mile total on a day. Pt was up to 4 miles total a day in Jul/aug 2022 and it started to keep decreasing. She has noticed she is standing against the wall a lot. She has occ had to use a cane.P thas a BIPAP machine and is supposed to sleep on her back but has been laying on her side. It has been about 8 years ago that this was difficult. Pt reports LUE and LLLE swell. Pt reports his L leg does give out and feel weak on her. She has had some falls but no injuries. Sometimes she notices she is leaning and she has knocked into the door. She feels like her balance isn 't so good. She doesn't ahve the same response in that leg. Pt does report a diastisis d/ t 2 C sections. Pt reports occ when walking her ankles will just freeze and she just can' t move it and has to slowly wiggle it to get going. Pt reports hx of appendectomy and gallbladder removal. [place] She can't even make a whole block right now. Pt doing cardio pulm rehab maintence 2x/week. Treatment Goals Patient/Caregiver Goals Be able to walk, do housework, improved balance PT-OP-C Subjective Start: 09/08/23 17:41 Freq: Status: Active Protocol: Document 10/20/23 11:18 BS (Rec: 10/20/23 12:23 BS [id number]) OP-PT Subjective Patient Comments Patient Comments patient has been having a lot more pinching in LB past few days. Hasn't done a lot of HEP d/t inc sx. PT-OP-D Balance Start: 09/08/23 17:41 Freq: Status: Active Protocol: Document 10/12/23 11:22 [facility] (Rec: 10/12/23 18:04 [facility] [id number]) Balance Tests Single Limb Standing Single Limb- Right 3 sec Single Limb- Left 2 sec PT-OP-G Mobility & Gait Start: 09/08/23 17:41 Freq: Status: Active Protocol: Document 09/09/23 12:47 [facility] (Rec: 09/09/23 18:46 [facility] [id number]) OP Gait Assessment Comments Gait Comments Pt amb w/lat lean B and dec stance time w/o push off PT-OP-J Posture/Palpation/Skin Start: 09/08/23 17:41 Freq: Status: Active Protocol: Document 10/12/23 11:22 [facility] (Rec: 10/12/23 18:04 [facility] [id number]) Posture Evaluation Inocencia Postural Classification System Lumbar Protective Mechanism Left AP 0 Lumbar Protective Mechanism Right AP 0 Lumbar Protective Mechanism Left PA 0 Lumbar Protective Mechanism Right PA 0 PT-OP-K Range of Motion Start: 09/08/23 17:41 Freq: Status: Active Protocol: Document 09/09/23 12:47 [facility] (Rec: 09/09/23 13:34 [facility] [id number]) Lumbar Spine Range of Motion Lumbar Spine Active Percentage Flexion 5 Extension 25 Rotation Left 40 Rotation Right 20 Lateral Flexion Left 60 Lateral Flexion Right 50 Comments pain w/all motions PT-OP-M Strength Start: 09/08/23 17:41 Freq: Status: Active Protocol: Document 10/12/23 11:22 [facility] (Rec: 10/12/23 18:04 [facility] [id number]) Hip Strength Hip Manual Muscle Testing Right Flexion (L2) 3+ Fair+ Abduction 3- Fair- External Rotation 4+ Good+ Internal Rotation 4 Good Comments discomfort w/IR Left Flexion (L2) 3+ Fair+ Abduction 3 Fair External Rotation 4+ Good+ Internal Rotation 5 Normal Comments disocmfort in hip flex B Knee Strength Knee Manual Muscle Testing Right Flexion (S2) 4+ Good+ Extension (L3) 5 Normal Comments pain in HS Left Flexion (S2) 5 Normal Extension (L3) 5 Normal Ankle/Foot Strength Ankle and Foot Manual Muscle Testing Right Dorsiflexion (L4) 4+ Good+ Plantarflexion (S1) 5 Normal Left Dorsiflexion (L4) 4+ Good+ Plantarflexion (S1) 5 Normal Comments seated PF testing B PT-OP-Q Treatments Start: 09/08/23 17:41 Freq: Status: Active Protocol: Document 10/20/23 11:18 BS (Rec: 10/20/23 12:23 BS [id number]) Therapeutic Exercises Supine Exercises PPT Supine Exercise Name posterior pelvic tilt Reps/Minutes 5x5s hold Comments cues for breath pelvic tilt Supine Exercise Name PPT with mini marches Side bilateral Reps/Minutes x12 ea Comments cues to keep lumbar down into mat, breaths Manual Therapy Treatment Soft Tissue Mobilization back Mobilization Type Rolling,Strumming,Sustained Pressure,Trigger Point Release Intensity/Depth Moderate Comments L paraspinals lumbar region STM in L sidelying B paraspinals lower thoracic to lumbar region STM in sitting Joint Mobilizations lumbar Joint T12-L2 Body Position Sitting Comments L TP post/inf glide w/ ext & ips SB FM Manual Techniques facilitation Comments L hip flex/add/ER w/ support under lower leg and facilitation at knee & RUE Self-Care/Home Management Treatment Education Other Education 8 min: education provided about HEP and modifying when flare up. education on alternative medicine routes, inc. acupuncture, pain management with discussion of injection, and other options if back continues to stay same /have flare ups. PT-OP-T Assessment and Plan Start: 09/08/23 17:41 Freq: Status: Active Protocol: Document 10/20/23 11:18 BS (Rec: 10/20/23 12:23 BS [id number]) Physical Therapy Assessment Goals strength Short Term Goal (STG) Pt will be indep w/HEP STG Duration achieved advancinga s able Half-Way Goal (LTG) Pt will score at least 4+/5 on all LE MMT B (including hip abd and ext) and at least 3/5 LPM to show improved core and LE stability in order to allow for pt to do more daily activities w/o inc pain. LTG Duration 12/02/23 activity Short Term Goal (STG) Pt will be able to do at least 2 miles worth of steps in her day w/o pain greater than 4/ 10 10/12-4 with about 1 to 1.5 miles on average STG Duration 10/28/23 Representative Personal Service Goal (LTG) Pt will return to being able to go for walks of at least 2 miles w/o pain stopping her from this activity. LTG Duration 12/02/22 balance Short Term Goal (STG) Pt will improve SLS to at least 5 sec B to show improved balance and stabilty 10/12-no change STG Duration 10/28/23 Representative Personal Service Goal (LTG) Pt will improve SLS to at least 10 sec B to show improved balanec and stabilty LTG Duration 12/02/23 Assessment Summary Assessment Pt presented today with c/o pinching in L LB that has been worse the past few days. Pt had sig muscle guarding throughout B paraspinals which released following STM. Pt T12-L2 L TPs lacked mobility w / ext at start, improved with manual. Pt completes supine marches w/ PPT. Had sig more difficult lifting RLE. After facilitation at RLE pt was able to complete w/ less difficulty, althoguh still reported felt harder than LLE. Physical Therapy Plan Frequency and Duration Frequency of Treatment 1-2x/wk Duration of treatment (weeks) 12 Plan of Care Start Date 09/09/23 Plan of Care End Date 12/02/23 Next Visit Focus/Plan Next Note Type Treatment Note Next Visit Plan Cont to work on hip strength w /abd, ext and rotation, work on viseral mobility especially cecum and mesenteric root Facilitation at RLE for core engagement
--- NOTE | 2023-10-25 18:12 | PT.OTN ---
Addendum entered and electronically signed by Sarah Brito PT 10/26/23 08:17: PT direct supervision and direction to PT student. Original Note: Current Diagnoses Spondylosis without myelopathy or radiculopathy, lumbar region (10/25/23) Radiculopathy, lumbar region (10/25/23) Dorsalgia, unspecified (10/25/23) Difficulty in walking, not elsewhere classified (10/25/23) Abnormal posture (10/25/23) Weakness (10/25/23) Other specified postprocedural states (10/25/23) Physical Therapy Treatment Note PT-OP-A Visit Information Start: 09/08/23 17:41 Freq: Status: Active Protocol: Document 10/25/23 13:03 BS (Rec: 10/25/23 15:19 BS [id number]) Out-Patient Physical Therapy Visit Information Visit Information Visit Type Treatment Note Visit Note 04/07 Visit Start Time 13:05 Visit Stop Time 13:50 Total Visit Minutes 45 Visit Number 14 Number of FOUNDATION ENGINEER Visits 0 PT-OP-B Current Condition Start: 09/08/23 17:41 Freq: Status: Active Protocol: Document 09/09/23 12:47 [facility] (Rec: 09/09/23 13:34 [facility] [id number]) Current Condition History of Current Condition Onset Date decades worse recently Current Complaints LBP w/L leg pain History of Current Condition Pt reports LBP that is chronic (decades). pt had TLIF of L3- 4 in 2019. Pt reports recently pain getting worse again. Pain mostly on L side of back, L hip and into L HS. She has a back brace that she is only using occ d/t MD rec. Pt is avoiding just about everything d/t pain. Pt is trying to track her activity and is aiming to get at least 1 mile total on a day. Pt was up to 4 miles total a day in Jul/aug 2022 and it started to keep decreasing. She has noticed she is standing against the wall a lot. She has occ had to use a cane.P thas a BIPAP machine and is supposed to sleep on her back but has been laying on her side. It has been about 8 years ago that this was difficult. Pt reports LUE and LLLE swell. Pt reports his L leg does give out and feel weak on her. She has had some falls but no injuries. Sometimes she notices she is leaning and she has knocked into the door. She feels like her balance isn 't so good. She doesn't ahve the same response in that leg. Pt does report a diastisis d/ t 2 C sections. Pt reports occ when walking her ankles will just freeze and she just can' t move it and has to slowly wiggle it to get going. Pt reports hx of appendectomy and gallbladder removal. Pt was walking [address] until last fall. She can't even make a whole block right now. Pt doing cardio pulm rehab maintence 2x/week. Treatment Goals Patient/Caregiver Goals Be able to walk, do housework, improved balance PT-OP-C Subjective Start: 09/08/23 17:41 Freq: Status: Active Protocol: Document 10/25/23 13:03 BS (Rec: 10/25/23 15:19 BS [id number]) OP-PT Subjective Patient Comments Patient Comments Pt had to drive to [place] for holiday weekend and walked around a lot so back has not been doing well. Mostly been feeling it on R side and felt it higher up than normal PT-OP-D Balance Start: 09/08/23 17:41 Freq: Status: Active Protocol: Document 10/12/23 11:22 [facility] (Rec: 10/12/23 18:04 [facility] [id number]) Balance Tests Single Limb Standing Single Limb- Right 3 sec Single Limb- Left 2 sec PT-OP-G Mobility & Gait Start: 09/08/23 17:41 Freq: Status: Active Protocol: Document 09/09/23 12:47 [facility] (Rec: 09/09/23 18:46 [facility] [id number]) OP Gait Assessment Comments Gait Comments Pt amb w/lat lean B and dec stance time w/o push off PT-OP-J Posture/Palpation/Skin Start: 09/08/23 17:41 Freq: Status: Active Protocol: Document 10/12/23 11:22 [facility] (Rec: 10/12/23 18:04 [facility] [id number]) Posture Evaluation Inocencia Postural Classification System Lumbar Protective Mechanism Left AP 0 Lumbar Protective Mechanism Right AP 0 Lumbar Protective Mechanism Left PA 0 Lumbar Protective Mechanism Right PA 0 PT-OP-K Range of Motion Start: 09/08/23 17:41 Freq: Status: Active Protocol: Document 09/09/23 12:47 [facility] (Rec: 09/09/23 13:34 [facility] [id number]) Lumbar Spine Range of Motion Lumbar Spine Active Percentage Flexion 5 Extension 25 Rotation Left 40 Rotation Right 20 Lateral Flexion Left 60 Lateral Flexion Right 50 Comments pain w/all motions PT-OP-M Strength Start: 09/08/23 17:41 Freq: Status: Active Protocol: Document 10/12/23 11:22 [facility] (Rec: 10/12/23 18:04 [facility] [id number]) Hip Strength Hip Manual Muscle Testing Right Flexion (L2) 3+ Fair+ Abduction 3- Fair- External Rotation 4+ Good+ Internal Rotation 4 Good Comments discomfort w/IR Left Flexion (L2) 3+ Fair+ Abduction 3 Fair External Rotation 4+ Good+ Internal Rotation 5 Normal Comments disocmfort in hip flex B Knee Strength Knee Manual Muscle Testing Right Flexion (S2) 4+ Good+ Extension (L3) 5 Normal Comments pain in HS Left Flexion (S2) 5 Normal Extension (L3) 5 Normal Ankle/Foot Strength Ankle and Foot Manual Muscle Testing Right Dorsiflexion (L4) 4+ Good+ Plantarflexion (S1) 5 Normal Left Dorsiflexion (L4) 4+ Good+ Plantarflexion (S1) 5 Normal Comments seated PF testing B PT-OP-Q Treatments Start: 09/08/23 17:41 Freq: Status: Active Protocol: Document 10/25/23 13:03 BS (Rec: 10/25/23 15:19 BS [id number]) Therapeutic Exercises Supine Exercises PPT Supine Exercise Name posterior pelvic tilt Reps/Minutes 3x5 Comments cues for breath pelvic tilt Supine Exercise Name PPT with mini marches Side bilateral Reps/Minutes 3x5ea Comments cues to keep lumbar down into mat & to breathe Manual Therapy Treatment Joint Mobilizations sacrum Body Position Sidelying Comments R SI gapping w/ IR lumbar Joint T12-L2 Body Position Sidelying Comments 1. SP inf glide w/ hip flex FM 2. SP L glide in sidelying w/ B ankle lift L1, L2, & L5 Taping KT Comments I strip from zyphoid process to lower abdomen, 75% stretch w/ pt in slight flexed lumbar position to improve postural awareness Manual Techniques facilitation Comments L hip flex/add/ER w/ support under lower leg and facilitation at knee, foot, & RUE w/ D1 flex. PT and SPT utilized PT-OP-T Assessment and Plan Start: 09/08/23 17:41 Freq: Status: Active Protocol: Document 10/25/23 13:03 BS (Rec: 10/25/23 15:19 BS [id number]) Physical Therapy Assessment Goals strength Short Term Goal (STG) Pt will be indep w/HEP STG Duration achieved advancinga s able Senior Care Goal (LTG) Pt will score at least 4+/5 on all LE MMT B (including hip abd and ext) and at least 3/5 LPM to show improved core and LE stability in order to allow for pt to do more daily activities w/o inc pain. LTG Duration 12/02/23 activity Short Term Goal (STG) Pt will be able to do at least 2 miles worth of steps in her day w/o pain greater than 4/ 10 10/12-03/08 with about 1 to 1.5 miles on average STG Duration 10/28/23 Embossing Machine Operator Goal (LTG) Pt will return to being able to go for walks of at least 2 miles w/o pain stopping her from this activity. LTG Duration 12/02/22 balance Short Term Goal (STG) Pt will improve SLS to at least 5 sec B to show improved balance and stabilty 10/12-no change STG Duration 10/28/23 Embossing Machine Operator Goal (LTG) Pt will improve SLS to at least 10 sec B to show improved balanec and stabilty LTG Duration 12/02/23 Assessment Summary Assessment Pt presented with inc pain from holiday weekend and inc in car time as well as walking . Quick assessment performed w / kidney-flank test d/t location of pts pain. Negative B. Pt had hard time with coordinating PPT today w/o cueing and had pain prior to cueing during supine marching. Once cued to push spine into mat and breathe, pt had some dec in pain during marches. Pt segmental mobility at T12-L2 & L5 improved following manual and pt was able to complete marches by end with no discomfort. Physical Therapy Plan Frequency and Duration Frequency of Treatment 1-2x/wk Duration of treatment (weeks) 12 Plan of Care Start Date 09/09/23 Plan of Care End Date 12/02/23 Next Visit Focus/Plan Next Note Type Treatment Note Next Visit Plan Cont to work on hip strength w /abd, ext and rotation, work on viseral mobility especially cecum and mesenteric root Facilitation at E for core engagement
--- NOTE | 2023-11-01 16:22 | PT.OTN ---
Addendum entered and electronically signed by Sarah Brito PT 11/01/23 18:04: PT direct supervision and direction to PT student. Original Note: Current Diagnoses Spondylosis without myelopathy or radiculopathy, lumbar region (11/01/23) Radiculopathy, lumbar region (11/01/23) Dorsalgia, unspecified (11/01/23) Difficulty in walking, not elsewhere classified (11/01/23) Abnormal posture (11/01/23) Weakness (11/01/23) Other specified postprocedural states (11/01/23) Physical Therapy Treatment Note PT-OP-A Visit Information Start: 09/08/23 17:41 Freq: Status: Active Protocol: Document 11/01/23 11:24 BS (Rec: 11/01/23 12:20 BS [id number]) Out-Patient Physical Therapy Visit Information Visit Information Visit Type Treatment Note Visit Note 05/08 Visit Start Time 11:22 Visit Stop Time 12:06 Total Visit Minutes 44 Visit Number 15 Number of OYSTER BED WORKER Visits 0 PT-OP-B Current Condition Start: 09/08/23 17:41 Freq: Status: Active Protocol: Document 09/09/23 12:47 LR (Rec: 09/09/23 13:34 [facility] [id number]) Current Condition History of Current Condition Onset Date decades worse recently Current Complaints LBP w/L leg pain History of Current Condition Pt reports LBP that is chronic (decades). pt had TLIF of L3- 4 in 2019. Pt reports recently pain getting worse again. Pain mostly on L side of back, L hip and into L HS. She has a back brace that she is only using occ d/t MD rec. Pt is avoiding just about everything d/t pain. Pt is trying to track her activity and is aiming to get at least 1 mile total on a day. Pt was up to 4 miles total a day in Jul/aug 2022 and it started to keep decreasing. She has noticed she is standing against the wall a lot. She has occ had to use a cane.P thas a BIPAP machine and is supposed to sleep on her back but has been laying on her side. It has been about 8 years ago that this was difficult. Pt reports LUE and LLLE swell. Pt reports his L leg does give out and feel weak on her. She has had some falls but no injuries. Sometimes she notices she is leaning and she has knocked into the door. She feels like her balance isn 't so good. She doesn't ahve the same response in that leg. Pt does report a diastisis d/ t 2 C sections. Pt reports occ when walking her ankles will just freeze and she just can' t move it and has to slowly wiggle it to get going. Pt reports hx of appendectomy and gallbladder removal. [place] [employer] [place] last fall. She can't even make a whole block right now. Pt doing cardio pulm rehab maintence 2x/week. Treatment Goals Patient/Caregiver Goals Be able to walk, do housework, improved balance PT-OP-C Subjective Start: 09/08/23 17:41 Freq: Status: Active Protocol: Document 11/01/23 11:24 BS (Rec: 11/01/23 12:20 BS [id number]) OP-PT Subjective Patient Comments Patient Comments Pt reports that marching at home cause pinching sensation. Back has still been bothering her PT-OP-D Balance Start: 09/08/23 17:41 Freq: Status: Active Protocol: Document 10/12/23 11:22 [facility] (Rec: 10/12/23 18:04 [facility] [id number]) Balance Tests Single Limb Standing Single Limb- Right 3 sec Single Limb- Left 2 sec PT-OP-G Mobility & Gait Start: 09/08/23 17:41 Freq: Status: Active Protocol: Document 09/09/23 12:47 [facility] (Rec: 09/09/23 18:46 [facility] [id number]) OP Gait Assessment Comments Gait Comments Pt amb w/lat lean B and dec stance time w/o push off PT-OP-J Posture/Palpation/Skin Start: 09/08/23 17:41 Freq: Status: Active Protocol: Document 10/12/23 11:22 [facility] (Rec: 10/12/23 18:04 [facility] [id number]) Posture Evaluation Inocencia Postural Classification System Lumbar Protective Mechanism Left AP 0 Lumbar Protective Mechanism Right AP 0 Lumbar Protective Mechanism Left PA 0 Lumbar Protective Mechanism Right PA 0 PT-OP-K Range of Motion Start: 09/08/23 17:41 Freq: Status: Active Protocol: Document 09/09/23 12:47 [facility] (Rec: 09/09/23 13:34 [facility] [id number]) Lumbar Spine Range of Motion Lumbar Spine Active Percentage Flexion 5 Extension 25 Rotation Left 40 Rotation Right 20 Lateral Flexion Left 60 Lateral Flexion Right 50 Comments pain w/all motions PT-OP-M Strength Start: 09/08/23 17:41 Freq: Status: Active Protocol: Document 10/12/23 11:22 [facility] (Rec: 10/12/23 18:04 [facility] [id number]) Hip Strength Hip Manual Muscle Testing Right Flexion (L2) 3+ Fair+ Abduction 3- Fair- External Rotation 4+ Good+ Internal Rotation 4 Good Comments discomfort w/IR Left Flexion (L2) 3+ Fair+ Abduction 3 Fair External Rotation 4+ Good+ Internal Rotation 5 Normal Comments disocmfort in hip flex B Knee Strength Knee Manual Muscle Testing Right Flexion (S2) 4+ Good+ Extension (L3) 5 Normal Comments pain in HS Left Flexion (S2) 5 Normal Extension (L3) 5 Normal Ankle/Foot Strength Ankle and Foot Manual Muscle Testing Right Dorsiflexion (L4) 4+ Good+ Plantarflexion (S1) 5 Normal Left Dorsiflexion (L4) 4+ Good+ Plantarflexion (S1) 5 Normal Comments seated PF testing B PT-OP-Q Treatments Start: 09/08/23 17:41 Freq: Status: Active Protocol: Document 11/01/23 11:24 BS (Rec: 11/01/23 12:20 BS [id number]) Therapeutic Exercises Supine Exercises PPT Supine Exercise Name posterior pelvic tilt Reps/Minutes x10 Comments cues for breath Sitting Exercises Stretch Sitting Exercise Name elbow prop on knees Reps/Minutes 5x5s hold Comments cues for comfortable range and no pinching in back Sit>stands Sitting Exercise Name Sit>stand mechanics Side bilateral Reps/Minutes 15 min Comments working on trunk lean, pelvic position, neutral back, & WS into feet Hip abd Sitting Exercise Name banded hip abd Side bilateral Resistance peach resistance Reps/Minutes 2x10 Pelvic tilts Sitting Exercise Name PPT to neutral Comments max tactile cueing on pelvis Standing Exercises Stretch Standing Exercise Name standing back stretch at tallest height of black mat Side bilateral Reps/Minutes x5 Comments mimicking what pt does at home Sit>stands Standing Exercise Name Sit>stands from higher mat Side bilateral Equipment Used UE use PRN Reps/Minutes x6 Comments working on breakdown of mechanics Manual Therapy Treatment Joint Mobilizations sacrum Body Position Sitting Comments inf glide B w/ active PPT FM Self-Care/Home Management Treatment Education Other Education 8min: education provided about modifying HEP when sx present , pelvic positioning in sitting & during sit to stands , and POC moving forward to focus on strengthening BLE to create greater stability. PT-OP-T Assessment and Plan Start: 09/08/23 17:41 Freq: Status: Active Protocol: Document 11/01/23 11:24 BS (Rec: 11/01/23 12:20 BS [id number]) Physical Therapy Assessment Goals strength Short Term Goal (STG) Pt will be indep w/HEP STG Duration achieved advancinga s able Care Home Goal (LTG) Pt will score at least 4+/5 on all LE MMT B (including hip abd and ext) and at least 3/5 LPM to show improved core and LE stability in order to allow for pt to do more daily activities w/o inc pain. LTG Duration 12/02/23 activity Short Term Goal (STG) Pt will be able to do at least 2 miles worth of steps in her day w/o pain greater than 4/ 10 10/12-4 with about 1 to 1.5 miles on average STG Duration 10/28/23 Launderette Attendant Goal (LTG) Pt will return to being able to go for walks of at least 2 miles w/o pain stopping her from this activity. LTG Duration 12/02/22 balance Short Term Goal (STG) Pt will improve SLS to at least 5 sec B to show improved balance and stabilty 10/12-no change STG Duration 10/28/23 Launderette Attendant Goal (LTG) Pt will improve SLS to at least 10 sec B to show improved balanec and stabilty LTG Duration 12/02/23 Assessment Summary Assessment Session today focused on pelvic mobility and sit>stand mechanics. Pt reported inc in back pain when sitting for long periods, so went thru pelvic tilts and elbow propping in sitting to keep mvmt thru back. Pt also has poor mechanics w/ sit>stand, so focused on hinge at hips w/ weight transfer into feet off hips. Pt performed multiple sit>stands from heigher mat height w/ dec in pain noted after session. Physical Therapy Plan Frequency and Duration Frequency of Treatment 1-2x/wk Duration of treatment (weeks) 12 Plan of Care Start Date 09/09/23 Plan of Care End Date 12/02/23 Next Visit Focus/Plan Next Note Type Treatment Note Next Visit Plan Cont to work on sit>stand mechanics, progress overall BLE strength, work on viseral mobility especially cecum and mesenteric root
--- NOTE | 2023-11-08 17:56 | PT.OTN ---
Addendum entered and electronically signed by Sarah Brito PT 11/09/23 08:28: PT direct supervision and direction to PT student. Original Note: Current Diagnoses Spondylosis without myelopathy or radiculopathy, lumbar region (11/08/23) Radiculopathy, lumbar region (11/08/23) Dorsalgia, unspecified (11/08/23) Difficulty in walking, not elsewhere classified (11/08/23) Abnormal posture (11/08/23) Weakness (11/08/23) Other specified postprocedural states (11/08/23) Physical Therapy Treatment Note PT-OP-A Visit Information Start: 09/08/23 17:41 Freq: Status: Active Protocol: Document 11/08/23 13:00 BS (Rec: 11/08/23 13:50 BS [id number]) Out-Patient Physical Therapy Visit Information Visit Information Visit Type Treatment Note Visit Note 06/07 Visit Start Time 13:01 Visit Stop Time 13:46 Total Visit Minutes 45 Visit Number 16 Number of PATIENT CLERICAL ASSISTANT Visits 0 PT-OP-B Current Condition Start: 09/08/23 17:41 Freq: Status: Active Protocol: Document 09/09/23 12:47 LR (Rec: 09/09/23 13:34 [facility] [id number]) Current Condition History of Current Condition Onset Date decades worse recently Current Complaints LBP w/L leg pain History of Current Condition Pt reports LBP that is chronic (decades). pt had TLIF of L3- 4 in 2019. Pt reports recently pain getting worse again. Pain mostly on L side of back, L hip and into L HS. She has a back brace that she is only using occ d/t MD rec. Pt is avoiding just about everything d/t pain. Pt is trying to track her activity and is aiming to get at least 1 mile total on a day. Pt was up to 4 miles total a day in Jul/aug 2022 and it started to keep decreasing. She has noticed she is standing against the wall a lot. She has occ had to use a cane.P thas a BIPAP machine and is supposed to sleep on her back but has been laying on her side. It has been about 8 years ago that this was difficult. Pt reports LUE and LLLE swell. Pt reports his L leg does give out and feel weak on her. She has had some falls but no injuries. Sometimes she notices she is leaning and she has knocked into the door. She feels like her balance isn 't so good. She doesn't ahve the same response in that leg. Pt does report a diastisis d/ t 2 C sections. Pt reports occ when walking her ankles will just freeze and she just can' t move it and has to slowly wiggle it to get going. Pt reports hx of appendectomy and gallbladder removal. [place] [employer] [place] She can't even make a whole block right now. Pt doing cardio pulm rehab maintence 2x/week. Treatment Goals Patient/Caregiver Goals Be able to walk, do housework, improved balance PT-OP-C Subjective Start: 09/08/23 17:41 Freq: Status: Active Protocol: Document 11/08/23 13:00 BS (Rec: 11/08/23 13:50 BS [id number]) OP-PT Subjective Patient Comments Patient Comments Pt reports no changes since last visit. Back has still been bothering her at about the same level, has tried to be more mindful when standing/ sitting from chair. PT-OP-D Balance Start: 09/08/23 17:41 Freq: Status: Active Protocol: Document 10/12/23 11:22 [facility] (Rec: 10/12/23 18:04 [facility] [id number]) Balance Tests Single Limb Standing Single Limb- Right 3 sec Single Limb- Left 2 sec PT-OP-G Mobility & Gait Start: 09/08/23 17:41 Freq: Status: Active Protocol: Document 09/09/23 12:47 [facility] (Rec: 09/09/23 18:46 [facility] [id number]) OP Gait Assessment Comments Gait Comments Pt amb w/lat lean B and dec stance time w/o push off PT-OP-J Posture/Palpation/Skin Start: 09/08/23 17:41 Freq: Status: Active Protocol: Document 10/12/23 11:22 [facility] (Rec: 10/12/23 18:04 [facility] [id number]) Posture Evaluation Inocencia Postural Classification System Lumbar Protective Mechanism Left AP 0 Lumbar Protective Mechanism Right AP 0 Lumbar Protective Mechanism Left PA 0 Lumbar Protective Mechanism Right PA 0 PT-OP-K Range of Motion Start: 09/08/23 17:41 Freq: Status: Active Protocol: Document 09/09/23 12:47 LR (Rec: 09/09/23 13:34 [facility] [id number]) Lumbar Spine Range of Motion Lumbar Spine Active Percentage Flexion 5 Extension 25 Rotation Left 40 Rotation Right 20 Lateral Flexion Left 60 Lateral Flexion Right 50 Comments pain w/all motions PT-OP-M Strength Start: 09/08/23 17:41 Freq: Status: Active Protocol: Document 10/12/23 11:22 [facility] (Rec: 10/12/23 18:04 [facility] [id number]) Hip Strength Hip Manual Muscle Testing Right Flexion (L2) 3+ Fair+ Abduction 3- Fair- External Rotation 4+ Good+ Internal Rotation 4 Good Comments discomfort w/IR Left Flexion (L2) 3+ Fair+ Abduction 3 Fair External Rotation 4+ Good+ Internal Rotation 5 Normal Comments disocmfort in hip flex B Knee Strength Knee Manual Muscle Testing Right Flexion (S2) 4+ Good+ Extension (L3) 5 Normal Comments pain in HS Left Flexion (S2) 5 Normal Extension (L3) 5 Normal Ankle/Foot Strength Ankle and Foot Manual Muscle Testing Right Dorsiflexion (L4) 4+ Good+ Plantarflexion (S1) 5 Normal Left Dorsiflexion (L4) 4+ Good+ Plantarflexion (S1) 5 Normal Comments seated PF testing B PT-OP-Q Treatments Start: 09/08/23 17:41 Freq: Status: Active Protocol: Document 11/08/23 13:00 BS (Rec: 11/08/23 13:50 BS [id number]) Therapeutic Exercises Sitting Exercises Core Sitting Exercise Name Seated Paloff hold w/ resistance from PT Side bilateral Resistance peach band Reps/Minutes x10 ea Knee ext Sitting Exercise Name banded knee ext Side bilateral Resistance peach Reps/Minutes x15 ea SL taps Sitting Exercise Name fwd taps Side bilateral Reps/Minutes x10ea Knee flex Sitting Exercise Name banded hamstring curls Side bilateral Resistance peach band Reps/Minutes 2x10 ea Comments cues for slow mvmt Sit>stands Sitting Exercise Name sit> stands / focus on mechanics throughout Side bilateral Reps/Minutes x10 Comments 18.5>20 to limit use of UE during sitting Hip abd Sitting Exercise Name banded hip abd Side bilateral Resistance peach resistance Reps/Minutes 2x10 Standing Exercises Step ups Standing Exercise Name 6 step ups Side bilateral Reps/Minutes x10 ea Comments cues to push through leg into ground to stand PT-OP-T Assessment and Plan Start: 09/08/23 17:41 Freq: Status: Active Protocol: Document 11/08/23 13:00 BS (Rec: 11/08/23 13:50 BS [id number]) Physical Therapy Assessment Goals strength Short Term Goal (STG) Pt will be indep w/HEP STG Duration achieved advancinga s able Fpc Goal (LTG) Pt will score at least 4+/5 on all LE MMT B (including hip abd and ext) and at least 3/5 LPM to show improved core and LE stability in order to allow for pt to do more daily activities w/o inc pain. LTG Duration 12/02/23 activity Short Term Goal (STG) Pt will be able to do at least 2 miles worth of steps in her day w/o pain greater than 4/ 10 10/12-03/08 with about 1 to 1.5 miles on average STG Duration 10/28/23 Fpc Goal (LTG) Pt will return to being able to go for walks of at least 2 miles w/o pain stopping her from this activity. LTG Duration 12/02/22 balance Short Term Goal (STG) Pt will improve SLS to at least 5 sec B to show improved balance and stabilty 10/12-no change STG Duration 10/28/23 Civil Engineering Teacher Goal (LTG) Pt will improve SLS to at least 10 sec B to show improved balanec and stabilty LTG Duration 12/02/23 Assessment Summary Assessment Pt progressed with BLE strength today well. Reports a pulling sensation during sit> stand through back of leg and educated on muscle contractions and focused on strengthening posterior chain. Pt still has limited tolerance for standing therex and requires seated rest breaks throughout. Has hard time with pelvic tilts in sitting and standing but is improving overall mechanics slowly. Physical Therapy Plan Frequency and Duration Frequency of Treatment 1-2x/wk Duration of treatment (weeks) 12 Plan of Care Start Date 09/09/23 Plan of Care End Date 12/02/23 Next Visit Focus/Plan Next Note Type Treatment Note Next Visit Plan Cont to work on sit>stand mechanics, progress overall BLE strength, work on viseral mobility especially cecum and mesenteric root
--- NOTE | 2023-11-15 17:39 | PT.OTN ---
Current Diagnoses Spondylosis without myelopathy or radiculopathy, lumbar region (11/15/23) Radiculopathy, lumbar region (11/15/23) Dorsalgia, unspecified (11/15/23) Difficulty in walking, not elsewhere classified (11/15/23) Abnormal posture (11/15/23) Weakness (11/15/23) Other specified postprocedural states (11/15/23) Physical Therapy Treatment Note PT-OP-A Visit Information Start: 09/08/23 17:41 Freq: Status: Active Protocol: Document 11/15/23 11:12 [facility] (Rec: 11/15/23 17:39 [facility] [id number]) Out-Patient Physical Therapy Visit Information Visit Information Visit Type Treatment Note Visit Note 07/08 Visit Start Time 11:16 Visit Stop Time 12:01 Total Visit Minutes 45 Visit Number 17 Number of SPECIAL PROJECTS COORDINATOR Visits 0 PT-OP-B Current Condition Start: 09/08/23 17:41 Freq: Status: Active Protocol: Document 09/09/23 12:47 [facility] (Rec: 09/09/23 13:34 [facility] [id number]) Current Condition History of Current Condition Onset Date decades worse recently Current Complaints LBP w/L leg pain History of Current Condition Pt reports LBP that is chronic (decades). pt had TLIF of L3- 4 in 2019. Pt reports recently pain getting worse again. Pain mostly on L side of back, L hip and into L HS. She has a back brace that she is only using occ d/t MD rec. Pt is avoiding just about everything d/t pain. Pt is trying to track her activity and is aiming to get at least 1 mile total on a day. Pt was up to 4 miles total a day in Jul/aug 2022 and it started to keep decreasing. She has noticed she is standing against the wall a lot. She has occ had to use a cane.P thas a BIPAP machine and is supposed to sleep on her back but has been laying on her side. It has been about 8 years ago that this was difficult. Pt reports LUE and LLLE swell. Pt reports his L leg does give out and feel weak on her. She has had some falls but no injuries. Sometimes she notices she is leaning and she has knocked into the door. She feels like her balance isn 't so good. She doesn't ahve the same response in that leg. Pt does report a diastisis d/ t 2 C sections. Pt reports occ when walking her ankles will just freeze and she just can' t move it and has to slowly wiggle it to get going. Pt reports hx of appendectomy and gallbladder removal. [place] She can't even make a whole block right now. Pt doing cardio pulm rehab maintence 2x/week. Treatment Goals Patient/Caregiver Goals Be able to walk, do housework, improved balance PT-OP-C Subjective Start: 09/08/23 17:41 Freq: Status: Active Protocol: Document 11/15/23 11:12 [facility] (Rec: 11/15/23 17:39 [facility] [id number]) OP-PT Subjective Patient Comments Patient Comments Pt reports she did okay after last session. 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 PT-OP-D Balance Start: 09/08/23 17:41 Freq: Status: Active Protocol: Document 10/12/23 11:22 [facility] (Rec: 10/12/23 18:04 [facility] [id number]) Balance Tests Single Limb Standing Single Limb- Right 3 sec Single Limb- Left 2 sec PT-OP-G Mobility & Gait Start: 09/08/23 17:41 Freq: Status: Active Protocol: Document 09/09/23 12:47 [facility] (Rec: 09/09/23 18:46 [facility] [id number]) OP Gait Assessment Comments Gait Comments Pt amb w/lat lean B and dec stance time w/o push off PT-OP-J Posture/Palpation/Skin Start: 09/08/23 17:41 Freq: Status: Active Protocol: Document 10/12/23 11:22 [facility] (Rec: 10/12/23 18:04 [facility] [id number]) Posture Evaluation Inocencia Postural Classification System Lumbar Protective Mechanism Left AP 0 Lumbar Protective Mechanism Right AP 0 Lumbar Protective Mechanism Left PA 0 Lumbar Protective Mechanism Right PA 0 PT-OP-K Range of Motion Start: 09/08/23 17:41 Freq: Status: Active Protocol: Document 09/09/23 12:47 [facility] (Rec: 09/09/23 13:34 [facility] [id number]) Lumbar Spine Range of Motion Lumbar Spine Active Percentage Flexion 5 Extension 25 Rotation Left 40 Rotation Right 20 Lateral Flexion Left 60 Lateral Flexion Right 50 Comments pain w/all motions PT-OP-M Strength Start: 09/08/23 17:41 Freq: Status: Active Protocol: Document 10/12/23 11:22 [facility] (Rec: 10/12/23 18:04 [facility] [id number]) Hip Strength Hip Manual Muscle Testing Right Flexion (L2) 3+ Fair+ Abduction 3- Fair- External Rotation 4+ Good+ Internal Rotation 4 Good Comments discomfort w/IR Left Flexion (L2) 3+ Fair+ Abduction 3 Fair External Rotation 4+ Good+ Internal Rotation 5 Normal Comments disocmfort in hip flex B Knee Strength Knee Manual Muscle Testing Right Flexion (S2) 4+ Good+ Extension (L3) 5 Normal Comments pain in HS Left Flexion (S2) 5 Normal Extension (L3) 5 Normal Ankle/Foot Strength Ankle and Foot Manual Muscle Testing Right Dorsiflexion (L4) 4+ Good+ Plantarflexion (S1) 5 Normal Left Dorsiflexion (L4) 4+ Good+ Plantarflexion (S1) 5 Normal Comments seated PF testing B PT-OP-Q Treatments Start: 09/08/23 17:41 Freq: Status: Active Protocol: Document 11/15/23 11:12 [facility] (Rec: 11/15/23 17:39 [facility] [id number]) Gym Equipment Sport Cord sidestep Exercise Details cues for core and posture Cord/Resistance green Reps/Duration 10 x ea direction fwd Exercise Details cues for core activation and upright posture Cord/Resistance green Reps/Duration 10x Comments fwd walk Therapeutic Exercises Sitting Exercises Core Sitting Exercise Name Seated Paloff hold w/ resistance from PT Side bilateral Resistance peach band Reps/Minutes x15 ea Knee ext Sitting Exercise Name banded knee ext Side bilateral Resistance peach Reps/Minutes x10 ea Knee flex Sitting Exercise Name banded hamstring curls Side bilateral Resistance blue band Reps/Minutes x15 ea Comments cues for slow mvmt Standing Exercises Step ups Standing Exercise Name 6 step ups Side bilateral Reps/Minutes x12 ea Comments cues to push through leg into ground to stand Manual Therapy Treatment Soft Tissue Mobilization back Body Location QL & obliques and ES B w/LTR Mobilization Type Rolling,Sustained Pressure, Trigger Point Release abdomen Comments R to L and L to R w/LTR PT-OP-T Assessment and Plan Start: 09/08/23 17:41 Freq: Status: Active Protocol: Document 11/15/23 11:12 [facility] (Rec: 11/15/23 17:39 [facility] [id number]) Physical Therapy Assessment Goals strength Short Term Goal (STG) Pt will be indep w/HEP STG Duration achieved advancinga s able Fence Installer Foreman Goal (LTG) Pt will score at least 4+/5 on all LE MMT B (including hip abd and ext) and at least 3/5 LPM to show improved core and LE stability in order to allow for pt to do more daily activities w/o inc pain. LTG Duration 12/02/23 activity Short Term Goal (STG) Pt will be able to do at least 2 miles worth of steps in her day w/o pain greater than 10/12-03/08 with about 1 to 1.5 miles on average STG Duration 10/28/23 Fence Installer Foreman Goal (LTG) Pt will return to being able to go for walks of at least 2 miles w/o pain stopping her from this activity. LTG Duration 12/02/22 balance Short Term Goal (STG) Pt will improve SLS to at least 5 sec B to show improved balance and stabilty 10/12-no change STG Duration 10/28/23 Fence Installer Foreman Goal (LTG) Pt will improve SLS to at least 10 sec B to show improved balanec and stabilty LTG Duration 12/02/23 Assessment Summary Assessment Pt did well withs tanding progression today w/seated active rest breaks of exercise . She is overall ambulating better since start of therapy. Physical Therapy Plan Frequency and Duration Frequency of Treatment 1-2x/wk Duration of treatment (weeks) 12 Plan of Care Start Date 09/09/23 Plan of Care End Date 12/02/23 Next Visit Focus/Plan Next Note Type Treatment Note Next Visit Plan Cont to work on sit>stand mechanics, progress overall BLE strength, work on viseral mobility especially cecum and mesenteric root
--- NOTE | 2023-11-24 09:00 | PT.OTN ---
Current Diagnoses Spondylosis without myelopathy or radiculopathy, lumbar region (11/24/23) Radiculopathy, lumbar region (11/24/23) Dorsalgia, unspecified (11/24/23) Difficulty in walking, not elsewhere classified (11/24/23) Abnormal posture (11/24/23) Weakness (11/24/23) Other specified postprocedural states (11/24/23) Physical Therapy Treatment Note PT-OP-A Visit Information Start: 09/08/23 17:41 Freq: Status: Active Protocol: Document 11/24/23 08:21 [facility] (Rec: 11/24/23 09:04 [facility] [id number]) Out-Patient Physical Therapy Visit Information Visit Information Visit Type Treatment Note Visit Note 08/08 Visit Start Time 08:21 Visit Stop Time 09:00 Total Visit Minutes 39 Visit Number 18 Number of OCCUPATIONAL THERAPIST AIDE Visits 1 PT-OP-B Current Condition Start: 09/08/23 17:41 Freq: Status: Active Protocol: Document 09/09/23 12:47 [facility] (Rec: 09/09/23 13:34 [facility] [id number]) Current Condition History of Current Condition Onset Date decades worse recently Current Complaints LBP w/L leg pain History of Current Condition Pt reports LBP that is chronic (decades). pt had TLIF of L3- 4 in 2019. Pt reports recently pain getting worse again. Pain mostly on L side of back, L hip and into L HS. She has a back brace that she is only using occ d/t MD rec. Pt is avoiding just about everything d/t pain. Pt is trying to track her activity and is aiming to get at least 1 mile total on a day. Pt was up to 4 miles total a day in Jul/aug 2022 and it started to keep decreasing. She has noticed she is standing against the wall a lot. She has occ had to use a cane.P thas a BIPAP machine and is supposed to sleep on her back but has been laying on her side. It has been about 8 years ago that this was difficult. Pt reports LUE and LLLE swell. Pt reports his L leg does give out and feel weak on her. She has had some falls but no injuries. Sometimes she notices she is leaning and she has knocked into the door. She feels like her balance isn 't so good. She doesn't ahve the same response in that leg. Pt does report a diastisis d/ t 2 C sections. Pt reports occ when walking her ankles will just freeze and she just can' t move it and has to slowly wiggle it to get going. Pt reports hx of appendectomy and gallbladder removal. Pt was walking [employer] [address] until last fall. She can't even make a whole block right now. Pt doing cardio pulm rehab maintence 2x/week. Treatment Goals Patient/Caregiver Goals Be able to walk, do housework, improved balance PT-OP-C Subjective Start: 09/08/23 17:41 Freq: Status: Active Protocol: Document 11/24/23 08:21 [facility] (Rec: 11/24/23 09:04 [facility] [id number]) OP-PT Subjective Patient Comments Patient Comments Pt reports still trying engage pelvic floor walking for added back support. Back sore coming in and wt shift walking . PT-OP-D Balance Start: 09/08/23 17:41 Freq: Status: Active Protocol: Document 10/12/23 11:22 [facility] (Rec: 10/12/23 18:04 [facility] [id number]) Balance Tests Single Limb Standing Single Limb- Right 3 sec Single Limb- Left 2 sec PT-OP-G Mobility & Gait Start: 09/08/23 17:41 Freq: Status: Active Protocol: Document 09/09/23 12:47 [facility] (Rec: 09/09/23 18:46 [facility] [id number]) OP Gait Assessment Comments Gait Comments Pt amb w/lat lean B and dec stance time w/o push off PT-OP-J Posture/Palpation/Skin Start: 09/08/23 17:41 Freq: Status: Active Protocol: Document 10/12/23 11:22 [facility] (Rec: 10/12/23 18:04 [facility] [id number]) Posture Evaluation Inocencia Postural Classification System Lumbar Protective Mechanism Left AP 0 Lumbar Protective Mechanism Right AP 0 Lumbar Protective Mechanism Left PA 0 Lumbar Protective Mechanism Right PA 0 PT-OP-K Range of Motion Start: 09/08/23 17:41 Freq: Status: Active Protocol: Document 09/09/23 12:47 [facility] (Rec: 09/09/23 13:34 [facility] [id number]) Lumbar Spine Range of Motion Lumbar Spine Active Percentage Flexion 5 Extension 25 Rotation Left 40 Rotation Right 20 Lateral Flexion Left 60 Lateral Flexion Right 50 Comments pain w/all motions PT-OP-M Strength Start: 09/08/23 17:41 Freq: Status: Active Protocol: Document 10/12/23 11:22 [facility] (Rec: 10/12/23 18:04 [facility] [id number]) Hip Strength Hip Manual Muscle Testing Right Flexion (L2) 3+ Fair+ Abduction 3- Fair- External Rotation 4+ Good+ Internal Rotation 4 Good Comments discomfort w/IR Left Flexion (L2) 3+ Fair+ Abduction 3 Fair External Rotation 4+ Good+ Internal Rotation 5 Normal Comments disocmfort in hip flex B Knee Strength Knee Manual Muscle Testing Right Flexion (S2) 4+ Good+ Extension (L3) 5 Normal Comments pain in HS Left Flexion (S2) 5 Normal Extension (L3) 5 Normal Ankle/Foot Strength Ankle and Foot Manual Muscle Testing Right Dorsiflexion (L4) 4+ Good+ Plantarflexion (S1) 5 Normal Left Dorsiflexion (L4) 4+ Good+ Plantarflexion (S1) 5 Normal Comments seated PF testing B PT-OP-Q Treatments Start: 09/08/23 17:41 Freq: Status: Active Protocol: Document 11/24/23 08:21 [facility] (Rec: 11/24/23 09:04 [facility] [id number]) Gym Equipment Sport Cord sidestep Exercise Details cues for core and posture Cord/Resistance green Reps/Duration 8 steps back Exercise Details cues for core activation and upright posture Cord/Resistance green Reps/Duration x8 steps Comments bwd walk - L posterior hip discomfort with fatigue fwd Exercise Details cues for core activation and upright posture Cord/Resistance green Reps/Duration 8 steps Comments cued heel to, foot clearance stepping Therapeutic Exercises Sitting Exercises Knee ext Sitting Exercise Name banded knee ext Side bilateral Resistance AROM hold (assimulate home) Reps/Minutes 10 reps x10 SH Comments good quad tiring Standing Exercises Step ups Standing Exercise Name 6 step ups Side bilateral Reps/Minutes x12 ea Comments cues to push through leg into ground to stand Manual Therapy Treatment Soft Tissue Mobilization back Body Location QL & obliques and ES B w/LTR Mobilization Type Rolling,Sustained Pressure, Trigger Point Release abdomen Comments R to L and L to R w/LTR PT-OP-T Assessment and Plan Start: 09/08/23 17:41 Freq: Status: Active Protocol: Document 11/24/23 08:21 [facility] (Rec: 11/24/23 09:04 [facility] [id number]) Physical Therapy Assessment Assessment Summary Assessment Pt reported decreased L QL tightness post manual. Improved core fac corrections with level pelvis post cuing during resisted and stair stepping carryover activity. She reports is more mindful of engaging core during gait to lessen side wt shifting. Physical Therapy Plan Frequency and Duration Frequency of Treatment 1-2x/wk Duration of treatment (weeks) 12 Plan of Care Start Date 09/09/23 Plan of Care End Date 12/02/23 Therapeutic Interventions Therapeutic Interventions Balance Training,Gait Training ,Home Exercise Program,Joint Mobilizations,Manual Therapy, Neuromuscular Re-education, Orthotic/Prosthetic Management ,Patient/Caregiver Education, Self-Care/Home Management,Soft Tissue Mobilization,Taping, Therapeutic Activities, Therapeutic Exercises Modalities Cold Pack/Ice Massage,Electric Stimulation,Hot Packs, Ultrasound Next Visit Focus/Plan Next Note Type Treatment Note Next Visit Plan Cont to work on sit>stand mechanics, progress overall BLE strength, work on viseral mobility especially cecum and mesenteric root
--- NOTE | 2023-11-30 09:38 | PT-OP ANOTE ---
Pt no showed appt but when called had 10 am written down as time was changed to get pt in w/PT instead of [facility] for POC update. Pt rescheduled to later in day.
--- NOTE | 2023-11-30 15:38 | PT.OTN ---
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) Radiculopathy, lumbar region (11/30/23) Dorsalgia, unspecified (11/30/23) Difficulty in walking, not elsewhere classified (11/30/23) Abnormal posture (11/30/23) Weakness (11/30/23) Other specified postprocedural states (11/30/23) Physical Therapy Treatment Note PT-OP-A Visit Information Start: 09/08/23 17:41 Freq: Status: Active Protocol: Document 11/30/23 13:09 [facility] (Rec: 11/30/23 15:38 [facility] [id number]) Out-Patient Physical Therapy Visit Information Visit Information Visit Type Progress Note Visit Note 12/08 Visit Start Time 13:06 Visit Stop Time 13:46 Total Visit Minutes 40 Visit Number 19 Number of HUMAN RESOURCES PROJECT COORDINATOR Visits 0 PT-OP-B Current Condition Start: 09/08/23 17:41 Freq: Status: Active Protocol: Document 09/09/23 12:47 [facility] (Rec: 09/09/23 13:34 [facility] [id number]) Current Condition History of Current Condition Onset Date decades worse recently Current Complaints LBP w/L leg pain History of Current Condition Pt reports LBP that is chronic (decades). pt had TLIF of L3- 4 in 2019. Pt reports recently pain getting worse again. Pain mostly on L side of back, L hip and into L HS. She has a back brace that she is only using occ d/t MD rec. Pt is avoiding just about everything d/t pain. Pt is trying to track her activity and is aiming to get at least 1 mile total on a day. Pt was up to 4 miles total a day in Jul/aug 2022 and it started to keep decreasing. She has noticed she is standing against the wall a lot. She has occ had to use a cane.P thas a BIPAP machine and is supposed to sleep on her back but has been laying on her side. It has been about 8 years ago that this was difficult. Pt reports LUE and LLLE swell. Pt reports his L leg does give out and feel weak on her. She has had some falls but no injuries. Sometimes she notices she is leaning and she has knocked into the door. She feels like her balance isn 't so good. She doesn't ahve the same response in that leg. Pt does report a diastisis d/ t 2 C sections. Pt reports occ when walking her ankles will just freeze and she just can' t move it and has to slowly wiggle it to get going. Pt reports hx of appendectomy and gallbladder removal. [place] She can't even make a whole block right now. Pt doing cardio pulm rehab maintence 2x/week. Treatment Goals Patient/Caregiver Goals Be able to walk, do housework, improved balance PT-OP-C Subjective Start: 09/08/23 17:41 Freq: Status: Active Protocol: Document 11/30/23 13:09 [facility] (Rec: 11/30/23 15:38 [facility] [id number]) OP-PT Subjective Patient Comments Patient Comments Pt reports she was unable to keep up w/friends to walk and unable keep up w/friends. She feels like PT is helping and she can do a lot more. Patient Reported Progress Improving PT-OP-D Balance Start: 09/08/23 17:41 Freq: Status: Active Protocol: Document 10/12/23 11:22 [facility] (Rec: 10/12/23 18:04 [facility] [id number]) Balance Tests Single Limb Standing Single Limb- Right 3 sec Single Limb- Left 2 sec PT-OP-G Mobility & Gait Start: 09/08/23 17:41 Freq: Status: Active Protocol: Document 09/09/23 12:47 [facility] (Rec: 09/09/23 18:46 [facility] [id number]) OP Gait Assessment Comments Gait Comments Pt amb w/lat lean B and dec stance time w/o push off PT-OP-J Posture/Palpation/Skin Start: 09/08/23 17:41 Freq: Status: Active Protocol: Document 11/30/23 13:09 [facility] (Rec: 11/30/23 15:38 [facility] [id number]) Posture Evaluation Inocencia Postural Classification System Lumbar Protective Mechanism Left AP 1 Lumbar Protective Mechanism Right AP 1 Lumbar Protective Mechanism Left PA 1 Lumbar Protective Mechanism Right PA 1 PT-OP-K Range of Motion Start: 09/08/23 17:41 Freq: Status: Active Protocol: Document 09/09/23 12:47 [facility] (Rec: 09/09/23 13:34 [facility] [id number]) Lumbar Spine Range of Motion Lumbar Spine Active Percentage Flexion 5 Extension 25 Rotation Left 40 Rotation Right 20 Lateral Flexion Left 60 Lateral Flexion Right 50 Comments pain w/all motions PT-OP-M Strength Start: 09/08/23 17:41 Freq: Status: Active Protocol: Document 11/30/23 13:09 [facility] (Rec: 11/30/23 15:38 [facility] [id number]) Hip Strength Hip Manual Muscle Testing Right Flexion (L2) 3+ Fair+ Abduction 3+ Fair+ External Rotation 4+ Good+ Internal Rotation 4+ Good+ Left Flexion (L2) 3+ Fair+ Abduction 4- Good- External Rotation 4+ Good+ Internal Rotation 5 Normal Comments disocmfort in hip flex B Knee Strength Knee Manual Muscle Testing Right Flexion (S2) 4+ Good+ Extension (L3) 5 Normal Left Flexion (S2) 5 Normal Extension (L3) 5 Normal Ankle/Foot Strength Ankle and Foot Manual Muscle Testing Right Dorsiflexion (L4) 4+ Good+ Plantarflexion (S1) 5 Normal Left Dorsiflexion (L4) 4+ Good+ Plantarflexion (S1) 5 Normal Comments seated PF testing B PT-OP-Q Treatments Start: 09/08/23 17:41 Freq: Status: Active Protocol: Document 11/30/23 13:09 [facility] (Rec: 11/30/23 15:38 [facility] [id number]) Therapeutic Exercises Sidelying Exercises hip abd Side bilateral Reps/Minutes 15 Sitting Exercises Core Sitting Exercise Name marches Side bilateral Reps/Minutes 10 Sit>stands Sitting Exercise Name sit> stands / focus on mechanics throughout- no hands Side bilateral Reps/Minutes x10 ea height Comments 21in; 20 in HS stretch Sitting Exercise Name hamstring stretch Side left Equipment Used EOB Reps/Minutes 30 sec Comments HEP review, no pain in back Standing Exercises SL Standing Exercise Name SLS trials Side bilateral Other Exercises MMT Other Exercise Name isometrics hip, knee and ankle , LPM Manual Therapy Treatment Soft Tissue Mobilization hip flexor Body Location R Mobilization Type Sustained Pressure Intensity/Depth Moderate Comments w/AAROM hip flex Joint Mobilizations innominate Joint R ER FM Body Position Supine hips Joint R inf FM PT-OP-T Assessment and Plan Start: 09/08/23 17:41 Freq: Status: Active Protocol: Document 11/30/23 13:09 [facility] (Rec: 11/30/23 15:38 [facility] [id number]) Physical Therapy Assessment Goals strength Short Term Goal (STG) Pt will be indep w/HEP STG Duration achieved advancinga s able Boat Builder And Repairer Goal (LTG) Pt will score at least 4+/5 on all LE MMT B (including hip abd and ext) and at least 3/5 LPM to show improved core and LE stability in order to allow for pt to do more daily activities w/o inc pain. 1/2-slow progress LTG Duration 02/07 activity Short Term Goal (STG) Pt will be able to do at least 2 miles worth of steps in her day w/o pain greater than 10/12-03/08 with about 1 to 1.5 miles on average 11/30-1.75 to 2 miles a day 04/07 STG Duration 12/30 [facility] Goal (LTG) Pt will return to being able to go for walks of at least 2 miles w/o pain stopping her from this activity. /-went around the block and has hills; did 1 lap at [employer] [place] LTG Duration 02/07 balance Short Term Goal (STG) Pt will improve SLS to at least 5 sec B to show improved balance and stabilty 10/12-no change 11/30-4 sec L; 3 sec R STG Duration 12/30 [facility] Goal (LTG) Pt will improve SLS to at least 10 sec B to show improved balanec and stabilty LTG Duration 02/07 Assessment Summary Assessment Pt is improving slowly with strength and functional ability, but does note improvement w/PT overall. She has only started small walks, but is able to do more of her housework and ADLs since starting PT. She would benefit from cont PT to work on LE and core stability along w/hip and back mobility in order to dec pain w/mobility. Physical Therapy Plan Frequency and Duration Frequency of Treatment 1-2x/wk Duration of treatment (weeks) 10 Plan of Care Start Date 11/30/23 Plan of Care End Date 02/08/24 Therapeutic Interventions Therapeutic Interventions Balance Training,Gait Training ,Home Exercise Program,Joint Mobilizations,Manual Therapy, Neuromuscular Re-education, Orthotic/Prosthetic Management ,Patient/Caregiver Education, Self-Care/Home Management,Soft Tissue Mobilization,Taping, Therapeutic Activities, Therapeutic Exercises Modalities Cold Pack/Ice Massage,Electric Stimulation,Hot Packs, Ultrasound Next Visit Focus/Plan Next Note Type Treatment Note Next Visit Plan Cont to work on sit>stand mechanics, progress overall BLE strength, work on viseral mobility especially cecum and mesenteric root
--- NOTE | 2023-11-30 15:38 | PT.OPPOC ---
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) Radiculopathy, lumbar region (11/30/23) Dorsalgia, unspecified (11/30/23) Difficulty in walking, not elsewhere classified (11/30/23) Abnormal posture (11/30/23) Weakness (11/30/23) Other specified postprocedural states (11/30/23) Visit Care Team Role Provider Type FLORIN Enamorado Family Provider Non-Staff Primary Care Provider Specialty: Family Practice Address: [address] [place], [address] Email: Jerrell Bonner MD Attending Provider Physician Referring Provider Specialty: Anesthesiology Interventional Radiology Pain Management Address: [address], [place], [address] Email: [email or web address] Plan Of Care PT-OP-T Assessment and Plan Start: 09/08/23 17:41 Freq: Status: Active Protocol: Document 11/30/23 13:09 [facility] (Rec: 11/30/23 15:38 [facility] [id number]) Physical Therapy Assessment Goals strength Short Term Goal (STG) Pt will be indep w/HEP STG Duration achieved advancinga s able Group Home Goal (LTG) Pt will score at least 4+/5 on all LE MMT B (including hip abd and ext) and at least 3/5 LPM to show improved core and LE stability in order to allow for pt to do more daily activities w/o inc pain. 1/2-slow progress LTG Duration 02/07 activity Short Term Goal (STG) Pt will be able to do at least 2 miles worth of steps in her day w/o pain greater than 4/ 10 10/12-03/08 with about 1 to 1.5 miles on average 1/2-1.75 to 2 miles a day 04/07 STG Duration 12/30 Group Home Goal (LTG) Pt will return to being able to go for walks of at least 2 miles w/o pain stopping her from this activity. 1/2-went around the block and has hills; did 1 lap at [place] LTG Duration 02/07 balance Short Term Goal (STG) Pt will improve SLS to at least 5 sec B to show improved balance and stabilty 10/12-no change 11/30-4 sec L; 3 sec R STG Duration 12/30 Doorperson Or Luggage Porter Goal (LTG) Pt will improve SLS to at least 10 sec B to show improved balanec and stabilty LTG Duration 02/07 Assessment Summary Assessment Pt is improving slowly with strength and functional ability, but does note improvement w/PT overall. She has only started small walks, but is able to do more of her housework and ADLs since starting PT. She would benefit from cont PT to work on LE and core stability along w/hip and back mobility in order to dec pain w/mobility. Physical Therapy Plan Frequency and Duration Frequency of Treatment 1-2x/wk Duration of treatment (weeks) 10 Plan of Care Start Date 11/30/23 Plan of Care End Date 02/08/24 Therapeutic Interventions Therapeutic Interventions Balance Training,Gait Training ,Home Exercise Program,Joint Mobilizations,Manual Therapy, Neuromuscular Re-education, Orthotic/Prosthetic Management ,Patient/Caregiver Education, Self-Care/Home Management,Soft Tissue Mobilization,Taping, Therapeutic Activities, Therapeutic Exercises Modalities Cold Pack/Ice Massage,Electric Stimulation,Hot Packs, Ultrasound Next Visit Focus/Plan Next Note Type Treatment Note Next Visit Plan Cont to work on sit>stand mechanics, progress overall BLE strength, work on viseral mobility especially cecum and mesenteric root Plan of Care Dates Plan of Care Start Date 11/30/23 Plan of Care End Date 02/08/24 Electronically Signed by: Sarah Brito, PT 11/30/23 4301 If you are in agreement with this Plan of Care, please return a signed and dated copy. I have reviewed this Plan of Care and certify that the skilled therapy services above are required to meet the patient?s needs. Physician Signature Date Printed Name and Credentials Clinical Instructor Signature Printed Name and Credentials
--- NOTE | 2023-12-06 10:34 | PT.OTN ---
Current Diagnoses Spondylosis without myelopathy or radiculopathy, lumbar region (12/06/23) Radiculopathy, lumbar region (12/06/23) Dorsalgia, unspecified (12/06/23) Difficulty in walking, not elsewhere classified (12/06/23) Abnormal posture (12/06/23) Weakness (12/06/23) Other specified postprocedural states (12/06/23) Physical Therapy Treatment Note PT-OP-A Visit Information Start: 09/08/23 17:41 Freq: Status: Active Protocol: Document 12/06/23 09:49 [facility] (Rec: 12/06/23 10:34 [facility] [id number]) Out-Patient Physical Therapy Visit Information Visit Information Visit Type Treatment Note Visit Note 01/08 Visit Start Time 09:50 Visit Stop Time 10:30 Total Visit Minutes 40 Visit Number 20 Number of GENERAL DENTIST Visits 0 PT-OP-B Current Condition Start: 09/08/23 17:41 Freq: Status: Active Protocol: Document 09/09/23 12:47 [facility] (Rec: 09/09/23 13:34 [facility] [id number]) Current Condition History of Current Condition Onset Date decades worse recently Current Complaints LBP w/L leg pain History of Current Condition Pt reports LBP that is chronic (decades). pt had TLIF of L3- 4 in 2019. Pt reports recently pain getting worse again. Pain mostly on L side of back, L hip and into L HS. She has a back brace that she is only using occ d/t MD rec. Pt is avoiding just about everything d/t pain. Pt is trying to track her activity and is aiming to get at least 1 mile total on a day. Pt was up to 4 miles total a day in Jul/aug 2022 and it started to keep decreasing. She has noticed she is standing against the wall a lot. She has occ had to use a cane.P thas a BIPAP machine and is supposed to sleep on her back but has been laying on her side. It has been about 8 years ago that this was difficult. Pt reports LUE and LLLE swell. Pt reports his L leg does give out and feel weak on her. She has had some falls but no injuries. Sometimes she notices she is leaning and she has knocked into the door. She feels like her balance isn 't so good. She doesn't ahve the same response in that leg. Pt does report a diastisis d/ t 2 C sections. Pt reports occ when walking her ankles will just freeze and she just can' t move it and has to slowly wiggle it to get going. Pt reports hx of appendectomy and gallbladder removal. [place]. She can't even make a whole block right now. Pt doing cardio pulm rehab maintence 2x/week. Treatment Goals Patient/Caregiver Goals Be able to walk, do housework, improved balance PT-OP-C Subjective Start: 09/08/23 17:41 Freq: Status: Active Protocol: Document 12/06/23 09:49 [facility] (Rec: 12/06/23 10:34 [facility] [id number]) OP-PT Subjective Patient Comments Patient Comments Pt saw pain management md and will be getting an injection but awaiting to schedule. Was instructed to cont PT in the mean time and she has been working hard on her exercises PT-OP-D Balance Start: 09/08/23 17:41 Freq: Status: Active Protocol: Document 10/12/23 11:22 [facility] (Rec: 10/12/23 18:04 [facility] [id number]) Balance Tests Single Limb Standing Single Limb- Right 3 sec Single Limb- Left 2 sec PT-OP-G Mobility & Gait Start: 09/08/23 17:41 Freq: Status: Active Protocol: Document 09/09/23 12:47 [facility] (Rec: 09/09/23 18:46 [facility] [id number]) OP Gait Assessment Comments Gait Comments Pt amb w/lat lean B and dec stance time w/o push off PT-OP-J Posture/Palpation/Skin Start: 09/08/23 17:41 Freq: Status: Active Protocol: Document 11/30/23 13:09 [facility] (Rec: 11/30/23 15:38 [facility] [id number]) Posture Evaluation Inocencia Postural Classification System Lumbar Protective Mechanism Left AP 1 Lumbar Protective Mechanism Right AP 1 Lumbar Protective Mechanism Left PA 1 Lumbar Protective Mechanism Right PA 1 PT-OP-K Range of Motion Start: 09/08/23 17:41 Freq: Status: Active Protocol: Document 09/09/23 12:47 [facility] (Rec: 09/09/23 13:34 [facility] [id number]) Lumbar Spine Range of Motion Lumbar Spine Active Percentage Flexion 5 Extension 25 Rotation Left 40 Rotation Right 20 Lateral Flexion Left 60 Lateral Flexion Right 50 Comments pain w/all motions PT-OP-M Strength Start: 09/08/23 17:41 Freq: Status: Active Protocol: Document 11/30/23 13:09 [facility] (Rec: 11/30/23 15:38 [facility] [id number]) Hip Strength Hip Manual Muscle Testing Right Flexion (L2) 3+ Fair+ Abduction 3+ Fair+ External Rotation 4+ Good+ Internal Rotation 4+ Good+ Left Flexion (L2) 3+ Fair+ Abduction 4- Good- External Rotation 4+ Good+ Internal Rotation 5 Normal Comments disocmfort in hip flex B Knee Strength Knee Manual Muscle Testing Right Flexion (S2) 4+ Good+ Extension (L3) 5 Normal Left Flexion (S2) 5 Normal Extension (L3) 5 Normal Ankle/Foot Strength Ankle and Foot Manual Muscle Testing Right Dorsiflexion (L4) 4+ Good+ Plantarflexion (S1) 5 Normal Left Dorsiflexion (L4) 4+ Good+ Plantarflexion (S1) 5 Normal Comments seated PF testing B PT-OP-Q Treatments Start: 09/08/23 17:41 Freq: Status: Active Protocol: Document 12/06/23 09:49 [facility] (Rec: 12/06/23 10:34 [facility] [id number]) Therapeutic Exercises Sidelying Exercises hip abd Side bilateral Reps/Minutes 10 Sitting Exercises Core Sitting Exercise Name marches Side bilateral Reps/Minutes 10 Comments cues for netural trunk Standing Exercises heel raises Side bilateral Equipment Used stairs w/rail Reps/Minutes 10 Step ups Standing Exercise Name 1. fwd step up and back step down 2. lat step up/down Side bilateral Equipment Used 6 step w/rail Reps/Minutes x10 ea Comments cues to push through leg into ground to stand Sit>stands Standing Exercise Name Sit>stands from higher mat Side bilateral Equipment Used UE use PRN Reps/Minutes x10 ea height Comments 20 in; 19 in Manual Therapy Treatment Soft Tissue Mobilization hip flexor Body Location R Mobilization Type Sustained Pressure Intensity/Depth Moderate Comments w/AAROM hip flex back Body Location QL R Mobilization Type Rolling,Sustained Pressure, Trigger Point Release Body Position Sidelying hip Body Location R glute/ITB, piriformis Mobilization Type Cross-Friction,Rolling, Strumming,Sustained Pressure Intensity/Depth Moderate Body Position Sidelying abdomen Comments inf perietocecal ligament FM w /LTR Joint Mobilizations innominate Joint R add FM hips Joint R inf, abd FM PT-OP-T Assessment and Plan Start: 09/08/23 17:41 Freq: Status: Active Protocol: Document 12/06/23 09:49 [facility] (Rec: 12/06/23 10:34 [facility] [id number]) Physical Therapy Assessment Goals strength Short Term Goal (STG) Pt will be indep w/HEP STG Duration achieved advancinga s able Schedule Supervisor Goal (LTG) Pt will score at least 4+/5 on all LE MMT B (including hip abd and ext) and at least 3/5 LPM to show improved core and LE stability in order to allow for pt to do more daily activities w/o inc pain. 1/2-slow progress LTG Duration 02/07 activity Short Term Goal (STG) Pt will be able to do at least 2 miles worth of steps in her day w/o pain greater than 10/12-03/08 with about 1 to 1.5 miles on average /2-1.75 to 2 miles a day 04/07 STG Duration 12/30 Schedule Supervisor Goal (LTG) Pt will return to being able to go for walks of at least 2 miles w/o pain stopping her from this activity. 1/2-went around the block and has hills; did 1 lap at [place] LTG Duration 02/07 balance Short Term Goal (STG) Pt will improve SLS to at least 5 sec B to show improved balance and stabilty 10/12-no change 1/2-4 sec L; 3 sec R STG Duration 12/30 Schedule Supervisor Goal (LTG) Pt will improve SLS to at least 10 sec B to show improved balanec and stabilty LTG Duration 02/07 Assessment Summary Assessment Pt did well with exercises today and was able to transition between ea more fluidly. She is fatigued by end of sets of sit to stands and step up exercises though. Improved R hip abd and flex after manual. Physical Therapy Plan Frequency and Duration Frequency of Treatment 1-2x/wk Duration of treatment (weeks) 10 Plan of Care Start Date 11/30/23 Plan of Care End Date 02/08/24 Next Visit Focus/Plan Next Note Type Treatment Note Next Visit Plan Cont to work on sit>stand mechanics, progress overall BLE strength, work on viseral mobility especially cecum and mesenteric root
--- NOTE | 2023-12-14 14:45 | PT.OTN ---
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) Radiculopathy, lumbar region (12/14/23) Dorsalgia, unspecified (12/14/23) Difficulty in walking, not elsewhere classified (12/14/23) Abnormal posture (12/14/23) Weakness (12/14/23) Other specified postprocedural states (12/14/23) Physical Therapy Treatment Note PT-OP-A Visit Information Start: 09/08/23 17:41 Freq: Status: Active Protocol: Document 12/14/23 13:47 [facility] (Rec: 12/14/23 14:45 [facility] [id number]) Out-Patient Physical Therapy Visit Information Visit Information Visit Type Treatment Note Visit Note 02/05 Visit Start Time 13:49 Visit Stop Time 14:31 Total Visit Minutes 42 Visit Number 21 Number of OPERATOR CAVITY PUMP Visits 0 PT-OP-B Current Condition Start: 09/08/23 17:41 Freq: Status: Active Protocol: Document 09/09/23 12:47 [facility] (Rec: 09/09/23 13:34 [facility] [id number]) Current Condition History of Current Condition Onset Date decades worse recently Current Complaints LBP w/L leg pain History of Current Condition Pt reports LBP that is chronic (decades). pt had TLIF of L3- 4 in 2019. Pt reports recently pain getting worse again. Pain mostly on L side of back, L hip and into L HS. She has a back brace that she is only using occ d/t MD rec. Pt is avoiding just about everything d/t pain. Pt is trying to track her activity and is aiming to get at least 1 mile total on a day. Pt was up to 4 miles total a day in Jul/aug 2022 and it started to keep decreasing. She has noticed she is standing against the wall a lot. She has occ had to use a cane.P thas a BIPAP machine and is supposed to sleep on her back but has been laying on her side. It has been about 8 years ago that this was difficult. Pt reports LUE and LLLE swell. Pt reports his L leg does give out and feel weak on her. She has had some falls but no injuries. Sometimes she notices she is leaning and she has knocked into the door. She feels like her balance isn 't so good. She doesn't ahve the same response in that leg. Pt does report a diastisis d/ t 2 C sections. Pt reports occ when walking her ankles will just freeze and she just can' t move it and has to slowly wiggle it to get going. Pt reports hx of appendectomy and gallbladder removal. Pt was walking [place] last fall. She can't even make a whole block right now. Pt doing cardio pulm rehab maintence 2x/week. Treatment Goals Patient/Caregiver Goals Be able to walk, do housework, improved balance PT-OP-C Subjective Start: 09/08/23 17:41 Freq: Status: Active Protocol: Document 12/14/23 13:47 [facility] (Rec: 12/14/23 14:45 [facility] [id number]) OP-PT Subjective Patient Comments Patient Comments Pt reprots she did cardio already today. She wore her brace this AM. Started OT for wrist pain. She has injection set for the . Back has been keeping her up at night PT-OP-D Balance Start: 09/08/23 17:41 Freq: Status: Active Protocol: Document 10/12/23 11:22 [facility] (Rec: 10/12/23 18:04 [facility] [id number]) Balance Tests Single Limb Standing Single Limb- Right 3 sec Single Limb- Left 2 sec PT-OP-G Mobility & Gait Start: 09/08/23 17:41 Freq: Status: Active Protocol: Document 09/09/23 12:47 [facility] (Rec: 09/09/23 18:46 [facility] [id number]) OP Gait Assessment Comments Gait Comments Pt amb w/lat lean B and dec stance time w/o push off PT-OP-J Posture/Palpation/Skin Start: 09/08/23 17:41 Freq: Status: Active Protocol: Document 11/30/23 13:09 [facility] (Rec: 11/30/23 15:38 [facility] [id number]) Posture Evaluation Inocencia Postural Classification System Lumbar Protective Mechanism Left AP 1 Lumbar Protective Mechanism Right AP 1 Lumbar Protective Mechanism Left PA 1 Lumbar Protective Mechanism Right PA 1 PT-OP-K Range of Motion Start: 09/08/23 17:41 Freq: Status: Active Protocol: Document 09/09/23 12:47 [facility] (Rec: 09/09/23 13:34 [facility] [id number]) Lumbar Spine Range of Motion Lumbar Spine Active Percentage Flexion 5 Extension 25 Rotation Left 40 Rotation Right 20 Lateral Flexion Left 60 Lateral Flexion Right 50 Comments pain w/all motions PT-OP-M Strength Start: 09/08/23 17:41 Freq: Status: Active Protocol: Document 11/30/23 13:09 [facility] (Rec: 11/30/23 15:38 [facility] [id number]) Hip Strength Hip Manual Muscle Testing Right Flexion (L2) 3+ Fair+ Abduction 3+ Fair+ External Rotation 4+ Good+ Internal Rotation 4+ Good+ Left Flexion (L2) 3+ Fair+ Abduction 4- Good- External Rotation 4+ Good+ Internal Rotation 5 Normal Comments disocmfort in hip flex B Knee Strength Knee Manual Muscle Testing Right Flexion (S2) 4+ Good+ Extension (L3) 5 Normal Left Flexion (S2) 5 Normal Extension (L3) 5 Normal Ankle/Foot Strength Ankle and Foot Manual Muscle Testing Right Dorsiflexion (L4) 4+ Good+ Plantarflexion (S1) 5 Normal Left Dorsiflexion (L4) 4+ Good+ Plantarflexion (S1) 5 Normal Comments seated PF testing B PT-OP-Q Treatments Start: 09/08/23 17:41 Freq: Status: Active Protocol: Document 12/14/23 13:47 [facility] (Rec: 12/14/23 14:45 [facility] [id number]) Therapeutic Exercises Sidelying Exercises hip abd Side bilateral Reps/Minutes 10 Comments cues for opp knee towards chest Standing Exercises heel raises Side bilateral Equipment Used stairs w/rail Reps/Minutes 10 Step ups Standing Exercise Name 1. fwd step up and back step down 2. lat step up/down Side bilateral Equipment Used 6 step w/rail Reps/Minutes x10 ea Comments cues to push through leg into ground to stand Sit>stands Standing Exercise Name Sit>stands from higher mat Side bilateral Equipment Used UE use PRN Reps/Minutes x10 Comments 20 in Therapeutic Activity Therapeutic Activity sleep position Reps/Minutes 8 min Comments supine w/pillow under thighs and knees and s/l edu w/lg pillow btwn knees, one under abdomen and consider towel under side. Pt placed in positions to feel difference. Manual Therapy Treatment Soft Tissue Mobilization back Body Location QL& ES & scar R>L Mobilization Type Rolling,Sustained Pressure, Trigger Point Release Body Position Sidelying hip Body Location R glute/ITB, piriformis Mobilization Type Cross-Friction,Rolling, Strumming,Sustained Pressure Intensity/Depth Moderate Body Position Sidelying abdomen Comments R scar w/AAROM LTR; L obliques Joint Mobilizations sacrum Body Position Sitting Comments inf glide B w/ active PPT FM PT-OP-T Assessment and Plan Start: 09/08/23 17:41 Freq: Status: Active Protocol: Document 12/14/23 13:47 [facility] (Rec: 12/14/23 14:45 [facility] [id number]) Physical Therapy Assessment Goals strength Short Term Goal (STG) Pt will be indep w/HEP STG Duration achieved advancinga s able Alf Goal (LTG) Pt will score at least 4+/5 on all LE MMT B (including hip abd and ext) and at least 3/5 LPM to show improved core and LE stability in order to allow for pt to do more daily activities w/o inc pain. 1/2-slow progress LTG Duration 02/07 activity Short Term Goal (STG) Pt will be able to do at least 2 miles worth of steps in her day w/o pain greater than 4/ 10 10/12-03/08 with about 1 to 1.5 miles on average /2-1.75 to 2 miles a day 04/07 STG Duration 12/30 Diabetes Trainer Goal (LTG) Pt will return to being able to go for walks of at least 2 miles w/o pain stopping her from this activity. 1/2-went around the block and has hills; did 1 lap at [employer] LTG Duration 02/07 balance Short Term Goal (STG) Pt will improve SLS to at least 5 sec B to show improved balance and stabilty 10/12-no change 1/2-4 sec L; 3 sec R STG Duration 12/30 Alf Goal (LTG) Pt will improve SLS to at least 10 sec B to show improved balanec and stabilty LTG Duration 02/07 Assessment Summary Assessment Pt is looking stronger at this time and is showing greater ease with strength where only last rep or 2 is difficult. Pt had more pain today w/ activity overall and edu on good sleep position to help pain during sleep. Physical Therapy Plan Frequency and Duration Frequency of Treatment 1-2x/wk Duration of treatment (weeks) 10 Plan of Care Start Date 11/30/23 Plan of Care End Date 02/08/24 Next Visit Focus/Plan Next Note Type Treatment Note Next Visit Plan Cont to work on sit>stand mechanics, progress overall BLE strength, work on viseral mobility especially cecum and mesenteric root
--- NOTE | 2023-12-28 11:20 | PT.OTN ---
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) Radiculopathy, lumbar region (12/28/23) Dorsalgia, unspecified (12/28/23) Difficulty in walking, not elsewhere classified (12/28/23) Abnormal posture (12/28/23) Weakness (12/28/23) Other specified postprocedural states (12/28/23) Physical Therapy Treatment Note PT-OP-A Visit Information Start: 09/08/23 17:41 Freq: Status: Active Protocol: Document 12/28/23 10:35 [facility] (Rec: 12/28/23 11:20 [facility] [id number]) Out-Patient Physical Therapy Visit Information Visit Information Visit Type Treatment Note Visit Note 03/08 Visit Start Time 10:36 Visit Stop Time 11:16 Visit Number 22 Number of REGULATORY AFFAIRS DIRECTOR Visits 0 PT-OP-B Current Condition Start: 09/08/23 17:41 Freq: Status: Active Protocol: Document 09/09/23 12:47 [facility] (Rec: 09/09/23 13:34 [facility] [id number]) Current Condition History of Current Condition Onset Date decades worse recently Current Complaints LBP w/L leg pain History of Current Condition Pt reports LBP that is chronic (decades). pt had TLIF of L3- 4 in 2019. Pt reports recently pain getting worse again. Pain mostly on L side of back, L hip and into L HS. She has a back brace that she is only using occ d/t MD rec. Pt is avoiding just about everything d/t pain. Pt is trying to track her activity and is aiming to get at least 1 mile total on a day. Pt was up to 4 miles total a day in Jul/aug 2022 and it started to keep decreasing. She has noticed she is standing against the wall a lot. She has occ had to use a cane.P thas a BIPAP machine and is supposed to sleep on her back but has been laying on her side. It has been about 8 years ago that this was difficult. Pt reports LUE and LLLE swell. Pt reports his L leg does give out and feel weak on her. She has had some falls but no injuries. Sometimes she notices she is leaning and she has knocked into the door. She feels like her balance isn 't so good. She doesn't ahve the same response in that leg. Pt does report a diastisis d/ t 2 C sections. Pt reports occ when walking her ankles will just freeze and she just can' t move it and has to slowly wiggle it to get going. Pt reports hx of appendectomy and gallbladder removal. Pt [place] [facility] [place] last fall. She can't even make a whole block right now. Pt doing cardio pulm rehab maintence 2x/week. Treatment Goals Patient/Caregiver Goals Be able to walk, do housework, improved balance PT-OP-C Subjective Start: 09/08/23 17:41 Freq: Status: Active Protocol: Document 12/28/23 10:35 [facility] (Rec: 12/28/23 11:20 [facility] [id number]) OP-PT Subjective Patient Comments Patient Comments pt reports she got the injection 12/22 and it helped alot the 1st 3 days then has been inc since sat. She is less limited on walking though . PT-OP-D Balance Start: 09/08/23 17:41 Freq: Status: Active Protocol: Document 10/12/23 11:22 [facility] (Rec: 10/12/23 18:04 [facility] [id number]) Balance Tests Single Limb Standing Single Limb- Right 3 sec Single Limb- Left 2 sec PT-OP-G Mobility & Gait Start: 09/08/23 17:41 Freq: Status: Active Protocol: Document 09/09/23 12:47 [facility] (Rec: 09/09/23 18:46 [facility] [id number]) OP Gait Assessment Comments Gait Comments Pt amb w/lat lean B and dec stance time w/o push off PT-OP-J Posture/Palpation/Skin Start: 09/08/23 17:41 Freq: Status: Active Protocol: Document 11/30/23 13:09 [facility] (Rec: 11/30/23 15:38 [facility] [id number]) Posture Evaluation Inocencia Postural Classification System Lumbar Protective Mechanism Left AP 1 Lumbar Protective Mechanism Right AP 1 Lumbar Protective Mechanism Left PA 1 Lumbar Protective Mechanism Right PA 1 PT-OP-K Range of Motion Start: 09/08/23 17:41 Freq: Status: Active Protocol: Document 09/09/23 12:47 [facility] (Rec: 09/09/23 13:34 [facility] [id number]) Lumbar Spine Range of Motion Lumbar Spine Active Percentage Flexion 5 Extension 25 Rotation Left 40 Rotation Right 20 Lateral Flexion Left 60 Lateral Flexion Right 50 Comments pain w/all motions PT-OP-M Strength Start: 09/08/23 17:41 Freq: Status: Active Protocol: Document 11/30/23 13:09 [facility] (Rec: 11/30/23 15:38 [facility] [id number]) Hip Strength Hip Manual Muscle Testing Right Flexion (L2) 3+ Fair+ Abduction 3+ Fair+ External Rotation 4+ Good+ Internal Rotation 4+ Good+ Left Flexion (L2) 3+ Fair+ Abduction 4- Good- External Rotation 4+ Good+ Internal Rotation 5 Normal Comments disocmfort in hip flex B Knee Strength Knee Manual Muscle Testing Right Flexion (S2) 4+ Good+ Extension (L3) 5 Normal Left Flexion (S2) 5 Normal Extension (L3) 5 Normal Ankle/Foot Strength Ankle and Foot Manual Muscle Testing Right Dorsiflexion (L4) 4+ Good+ Plantarflexion (S1) 5 Normal Left Dorsiflexion (L4) 4+ Good+ Plantarflexion (S1) 5 Normal Comments seated PF testing B PT-OP-Q Treatments Start: 09/08/23 17:41 Freq: Status: Active Protocol: Document 12/28/23 10:35 [facility] (Rec: 12/28/23 11:20 [facility] [id number]) Therapeutic Exercises Standing Exercises Step ups Standing Exercise Name lat step up/down Side bilateral Equipment Used 4 in lat Reps/Minutes x10 ea Comments cues to push through leg into ground to stand hip abd Standing Exercise Name sidesteps Side bilateral Equipment Used L2 Reps/Minutes 20ft Comments cues for core Therapeutic Activity Therapeutic Activity step up Comments fwd w/cues for wt shift fwd and glute squeeze x10 B sit to stand Comments 10x w/o hands w/cues for hip hinge; 20 in mat Manual Therapy Treatment Soft Tissue Mobilization hip flexor Body Location R iliacus and psoas proximal and distal Mobilization Type Sustained Pressure Intensity/Depth Moderate Comments w/AAROM hip flex abdomen Comments R ligament of cleyet w/gentle hip motion Joint Mobilizations innominate Joint R flex and ER FM hips Joint R inf FM PT-OP-T Assessment and Plan Start: 09/08/23 17:41 Freq: Status: Active Protocol: Document 12/28/23 10:35 [facility] (Rec: 12/28/23 11:20 [facility] [id number]) Physical Therapy Assessment Goals strength Short Term Goal (STG) Pt will be indep w/HEP STG Duration achieved advancinga s able Admeasurer Goal (LTG) Pt will score at least 4+/5 on all LE MMT B (including hip abd and ext) and at least 3/5 LPM to show improved core and LE stability in order to allow for pt to do more daily activities w/o inc pain. 1/2-slow progress LTG Duration 02/07 activity Short Term Goal (STG) Pt will be able to do at least 2 miles worth of steps in her day w/o pain greater than 10/12-03/08 with about 1 to 1.5 miles on average 2-1.75 to 2 miles a day 04/07 STG Duration 12/30 Admeasurer Goal (LTG) Pt will return to being able to go for walks of at least 2 miles w/o pain stopping her from this activity. 1/2-went around the block and has hills; did 1 lap at [employer] LTG Duration 02/07 balance Short Term Goal (STG) Pt will improve SLS to at least 5 sec B to show improved balance and stabilty 10/12-no change 1/2-4 sec L; 3 sec R STG Duration 12/30 Care Home Goal (LTG) Pt will improve SLS to at least 10 sec B to show improved balanec and stabilty LTG Duration 02/07 Assessment Summary Assessment Pt showed improved endurance and form with exercises. w/dec step height, pt had improved performance w/lat step up. Cues still needed w/movmeent mechanics. Physical Therapy Plan Frequency and Duration Frequency of Treatment 1-2x/wk Duration of treatment (weeks) 10 Plan of Care Start Date 11/30/23 Plan of Care End Date 02/08/24 Next Visit Focus/Plan Next Note Type Treatment Note Next Visit Plan Cont to work on sit>stand mechanics, progress overall BLE strength, work on viseral mobility especially cecum and mesenteric root
--- NOTE | 2024-01-03 15:19 | PT.OTN ---
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 (Rec: 01/03/24 15:19 [facility] [id number]) Out-Patient Physical Therapy Visit Information Visit Information Visit Type Treatment Note Visit Note 04/07 Visit Start Time 14:35 Visit Stop Time 15:15 Visit Number 23 Number of TRANSPORTATION MANAGER Visits 0 PT-OP-B Current Condition Start: 09/08/23 17:41 Freq: Status: Active Protocol: Document 09/09/23 12:47 [facility] (Rec: 09/09/23 13:34 [facility] [id number]) Current Condition History of Current Condition Onset Date decades worse recently Current Complaints LBP w/L leg pain History of Current Condition Pt reports LBP that is chronic (decades). pt had TLIF of L3- 4 in 2019. Pt reports recently pain getting worse again. Pain mostly on L side of back, L hip and into L HS. She has a back brace that she is only using occ d/t MD rec. Pt is avoiding just about everything d/t pain. Pt is trying to track her activity and is aiming to get at least 1 mile total on a day. Pt was up to 4 miles total a day in Jul/aug 2022 and it started to keep decreasing. She has noticed she is standing against the wall a lot. She has occ had to use a cane.P thas a BIPAP machine and is supposed to sleep on her back but has been laying on her side. It has been about 8 years ago that this was difficult. Pt reports LUE and LLLE swell. Pt reports his L leg does give out and feel weak on her. She has had some falls but no injuries. Sometimes she notices she is leaning and she has knocked into the door. She feels like her balance isn 't so good. She doesn't ahve the same response in that leg. Pt does report a diastisis d/ t 2 C sections. Pt reports occ when walking her ankles will just freeze and she just can' t move it and has to slowly wiggle it to get going. Pt reports hx of appendectomy and gallbladder removal. [place] [employer] [place]. She can't even make a whole block right now. Pt doing cardio pulm rehab maintence 2x/week. Treatment Goals Patient/Caregiver Goals Be able to walk, do housework, improved balance PT-OP-C Subjective Start: 09/08/23 17:41 Freq: Status: Active Protocol: Document 01/03/24 14:32 [facility] (Rec: 01/03/24 15:19 [facility] [id number]) OP-PT Subjective Patient Comments Patient Comments Pt did balance class today. She feels okay except for ones that cause her to really engage her back. back is tired from class. Notes feels like pain was sharper PT-OP-D Balance Start: 09/08/23 17:41 Freq: Status: Active Protocol: Document 10/12/23 11:22 [facility] (Rec: 10/12/23 18:04 [facility] [id number]) Balance Tests Single Limb Standing Single Limb- Right 3 sec Single Limb- Left 2 sec PT-OP-G Mobility & Gait Start: 09/08/23 17:41 Freq: Status: Active Protocol: Document 09/09/23 12:47 [facility] (Rec: 09/09/23 18:46 [facility] [id number]) OP Gait Assessment Comments Gait Comments Pt amb w/lat lean B and dec stance time w/o push off PT-OP-J Posture/Palpation/Skin Start: 09/08/23 17:41 Freq: Status: Active Protocol: Document 11/30/23 13:09 [facility] (Rec: 11/30/23 15:38 [facility] [id number]) Posture Evaluation [facility] Postural Classification System Lumbar Protective Mechanism Left AP 1 Lumbar Protective Mechanism Right AP 1 Lumbar Protective Mechanism Left PA 1 Lumbar Protective Mechanism Right PA 1 PT-OP-K Range of Motion Start: 09/08/23 17:41 Freq: Status: Active Protocol: Document 09/09/23 12:47 [facility] (Rec: 09/09/23 13:34 [facility] [id number]) Lumbar Spine Range of Motion Lumbar Spine Active Percentage Flexion 5 Extension 25 Rotation Left 40 Rotation Right 20 Lateral Flexion Left 60 Lateral Flexion Right 50 Comments pain w/all motions PT-OP-M Strength Start: 09/08/23 17:41 Freq: Status: Active Protocol: Document 11/30/23 13:09 [facility] (Rec: 11/30/23 15:38 [facility] [id number]) Hip Strength Hip Manual Muscle Testing Right Flexion (L2) 3+ Fair+ Abduction 3+ Fair+ External Rotation 4+ Good+ Internal Rotation 4+ Good+ Left Flexion (L2) 3+ Fair+ Abduction 4- Good- External Rotation 4+ Good+ Internal Rotation 5 Normal Comments disocmfort in hip flex B Knee Strength Knee Manual Muscle Testing Right Flexion (S2) 4+ Good+ Extension (L3) 5 Normal Left Flexion (S2) 5 Normal Extension (L3) 5 Normal Ankle/Foot Strength Ankle and Foot Manual Muscle Testing Right Dorsiflexion (L4) 4+ Good+ Plantarflexion (S1) 5 Normal Left Dorsiflexion (L4) 4+ Good+ Plantarflexion (S1) 5 Normal Comments seated PF testing B PT-OP-Q Treatments Start: 09/08/23 17:41 Freq: Status: Active Protocol: Document 01/03/24 14:32 [facility] (Rec: 01/03/24 15:19 [facility] [id number]) Therapeutic Exercises Supine Exercises stretch Supine Exercise Name 1. SKTC 2. piriformis cross body Side bilateral Reps/Minutes 1.30 sec x2 2. 30 sec ea pelvic tilt Supine Exercise Name cues for comfortable range Side bilateral Reps/Minutes 10 Standing Exercises pelvic tilt Standing Exercise Name vs wall Side bilateral Reps/Minutes 8 Comments painful and difficult heel raises Reps/Minutes 2 min Comments attempted to get back more neutral but pt unable to get tilt Manual Therapy Treatment Soft Tissue Mobilization back Body Location B scar, ES, QL Mobilization Type Myofascial Release,Rolling, Sustained Pressure Comments seated bent fwd to table w/ deep breathing (sup to mod) abdomen Body Location scar (appy & gallbladder removal) Comments w/PPT PT-OP-T Assessment and Plan Start: 09/08/23 17:41 Freq: Status: Active Protocol: Document 01/03/24 14:32 [facility] (Rec: 01/03/24 15:19 [facility] [id number]) Physical Therapy Assessment Goals strength Short Term Goal (STG) Pt will be indep w/HEP STG Duration achieved advancinga s able [facility] Goal (LTG) Pt will score at least 4+/5 on all LE MMT B (including hip abd and ext) and at least 3/5 LPM to show improved core and LE stability in order to allow for pt to do more daily activities w/o inc pain. 1/-slow progress LTG Duration 02/07 activity Short Term Goal (STG) Pt will be able to do at least 2 miles worth of steps in her day w/o pain greater than 10/12-03/08 with about 1 to 1.5 miles on average 11/30-1.75 to 2 miles a day 04/07 STG Duration 12/30 Marketing Community Liaison Goal (LTG) Pt will return to being able to go for walks of at least 2 miles w/o pain stopping her from this activity. 11/30-went around the block and has hills; did 1 lap [place] [employer] [place] LTG Duration 02/07 balance Short Term Goal (STG) Pt will improve SLS to at least 5 sec B to show improved balance and stabilty 10/12-no change 11/30-4 sec L; 3 sec R STG Duration 12/30 Marketing Community Liaison Goal (LTG) Pt will improve SLS to at least 10 sec B to show improved balanec and stabilty LTG Duration 02/07 Assessment Summary Assessment Pt was much worse today and was unable to get PPT in supine or standing to create abdominal stabiltiy. Pt reviewed stretches to focus on for dec pain and after manualw as able to do further range PPT w/less pain Physical Therapy Plan Frequency and Duration Frequency of Treatment 1-2x/wk Duration of treatment (weeks) 10 Plan of Care Start Date 11/30/23 Plan of Care End Date 02/08/24 Next Visit Focus/Plan Next Note Type Treatment Note Next Visit Plan work on ant region to improve PPT (hip flexors R>L, abdominal scars), review exercsies that cause pain in exercise class
--- NOTE | 2024-01-17 08:55 | PT-OP ANOTE ---
DEPUTY JAILER chart reviewed, pt left message >24 hrs to cancel today's appt, no reason given. DEPUTY JAILER called and left message inquiring reasoning for cancel and hope doing well and reminded of next appt 01/24 but can call back and reschedule today's appt for opening in DEPUTY JAILER's schedule seen available next 2 days, call back.
--- NOTE | 2024-01-24 15:20 | PT.OTN ---
Current Diagnoses Spondylosis without myelopathy or radiculopathy, lumbar region (01/24/24) Radiculopathy, lumbar region (01/24/24) Dorsalgia, unspecified (01/24/24) Difficulty in walking, not elsewhere classified (01/24/24) Abnormal posture (01/24/24) Weakness (01/24/24) Other specified postprocedural states (01/24/24) Physical Therapy Treatment Note PT-OP-A Visit Information Start: 09/08/23 17:41 Freq: Status: Active Protocol: Document 01/24/24 14:37 [facility] (Rec: 01/24/24 15:54 [facility] [id number]) Out-Patient Physical Therapy Visit Information Visit Information Visit Type Treatment Note Visit Note 05/08 Visit Start Time 14:37 Visit Stop Time 15:20 Visit Number 24 Number of CREDIT REVIEW MANAGER Visits 1 PT-OP-B Current Condition Start: 09/08/23 17:41 Freq: Status: Active Protocol: Document 09/09/23 12:47 [facility] (Rec: 09/09/23 13:34 [facility] [id number]) Current Condition History of Current Condition Onset Date decades worse recently Current Complaints LBP w/L leg pain History of Current Condition Pt reports LBP that is chronic (decades). pt had TLIF of L3- 4 in 2019. Pt reports recently pain getting worse again. Pain mostly on L side of back, L hip and into L HS. She has a back brace that she is only using occ d/t MD rec. Pt is avoiding just about everything d/t pain. Pt is trying to track her activity and is aiming to get at least 1 mile total on a day. Pt was up to 4 miles total a day in Jul/aug 2022 and it started to keep decreasing. She has noticed she is standing against the wall a lot. She has occ had to use a cane.P thas a BIPAP machine and is supposed to sleep on her back but has been laying on her side. It has been about 8 years ago that this was difficult. Pt reports LUE and LLLE swell. Pt reports his L leg does give out and feel weak on her. She has had some falls but no injuries. Sometimes she notices she is leaning and she has knocked into the door. She feels like her balance isn 't so good. She doesn't ahve the same response in that leg. Pt does report a diastisis d/ t 2 C sections. Pt reports occ when walking her ankles will just freeze and she just can' t move it and has to slowly wiggle it to get going. Pt reports hx of appendectomy and gallbladder removal. [place] [employer] [place]. She can't even make a whole block right now. Pt doing cardio pulm rehab maintence 2x/week. Treatment Goals Patient/Caregiver Goals Be able to walk, do housework, improved balance PT-OP-C Subjective Start: 09/08/23 17:41 Freq: Status: Active Protocol: Document 01/24/24 14:37 [facility] (Rec: 01/24/24 15:54 [facility] [id number]) OP-PT Subjective Patient Comments Patient Comments Pt reports having irritatant in R UE haven't worn sleeve in the past week. COmpliant with stretching HEP back. She sees Dr Bonner, was provided clamshell back brace wears periodically and or abdominal binder. PT-OP-D Balance Start: 09/08/23 17:41 Freq: Status: Active Protocol: Document 10/12/23 11:22 [facility] (Rec: 10/12/23 18:04 [facility] [id number]) Balance Tests Single Limb Standing Single Limb- Right 3 sec Single Limb- Left 2 sec PT-OP-G Mobility & Gait Start: 09/08/23 17:41 Freq: Status: Active Protocol: Document 09/09/23 12:47 [facility] (Rec: 09/09/23 18:46 [facility] [id number]) OP Gait Assessment Comments Gait Comments Pt amb w/lat lean B and dec stance time w/o push off PT-OP-J Posture/Palpation/Skin Start: 09/08/23 17:41 Freq: Status: Active Protocol: Document 11/30/23 13:09 [facility] (Rec: 11/30/23 15:38 [facility] [id number]) Posture Evaluation [facility] Postural Classification System Lumbar Protective Mechanism Left AP 1 Lumbar Protective Mechanism Right AP 1 Lumbar Protective Mechanism Left PA 1 Lumbar Protective Mechanism Right PA 1 PT-OP-K Range of Motion Start: 09/08/23 17:41 Freq: Status: Active Protocol: Document 09/09/23 12:47 [facility] (Rec: 09/09/23 13:34 [facility] [id number]) Lumbar Spine Range of Motion Lumbar Spine Active Percentage Flexion 5 Extension 25 Rotation Left 40 Rotation Right 20 Lateral Flexion Left 60 Lateral Flexion Right 50 Comments pain w/all motions PT-OP-M Strength Start: 09/08/23 17:41 Freq: Status: Active Protocol: Document 11/30/23 13:09 [facility] (Rec: 11/30/23 15:38 [facility] [id number]) Hip Strength Hip Manual Muscle Testing Right Flexion (L2) 3+ Fair+ Abduction 3+ Fair+ External Rotation 4+ Good+ Internal Rotation 4+ Good+ Left Flexion (L2) 3+ Fair+ Abduction 4- Good- External Rotation 4+ Good+ Internal Rotation 5 Normal Comments disocmfort in hip flex B Knee Strength Knee Manual Muscle Testing Right Flexion (S2) 4+ Good+ Extension (L3) 5 Normal Left Flexion (S2) 5 Normal Extension (L3) 5 Normal Ankle/Foot Strength Ankle and Foot Manual Muscle Testing Right Dorsiflexion (L4) 4+ Good+ Plantarflexion (S1) 5 Normal Left Dorsiflexion (L4) 4+ Good+ Plantarflexion (S1) 5 Normal Comments seated PF testing B PT-OP-Q Treatments Start: 09/08/23 17:41 Freq: Status: Active Protocol: Document 01/24/24 14:37 [facility] (Rec: 01/24/24 15:54 [facility] [id number]) Therapeutic Exercises Supine Exercises stretch Supine Exercise Name 1. SKTC 2. piriformis cross body Side bilateral Equipment Used use towel around thigh Reps/Minutes 1.30 sec x3 2. 3x 30 sec ea Comments cues for set up and use towel more supportive not stress neck. g pelvic tilt Supine Exercise Name cues for comfortable range Side bilateral Reps/Minutes 2-3 SH x10 Comments ed not bridging, cues for sacral rocking tailbone to ceiing Standing Exercises pelvic tilt Standing Exercise Name challenged Side bilateral Reps/Minutes 8 Comments reports tension glut and HS, cued not lean back/keep toes down. heel raises Reps/Minutes 10 reps Comments attempted to get back more neutral but pt unable to get tilt Stretch Standing Exercise Name calf stretch Side bilateral Equipment Used angled rocking board in DF positioning Reps/Minutes 30 x2 each LE Comments reports hurts into L glut when WB into L LE- stopped Manual Therapy Treatment Soft Tissue Mobilization back Body Location L ES, QL Mobilization Type Myofascial Release,Rolling, Strumming Intensity/Depth Moderate Body Position R Sidelying hip Body Location L glute/ITB, piriformis Mobilization Type Cross-Friction,Rolling, Strumming,Sustained Pressure Intensity/Depth Moderate Body Position R Sidelying Neuro Re-Education Treatment Balance Activities rocker board Details fwd/bwd Equipment light contact //bars Reps/Duration 8 reps Comments trialed wt shift, then maintain level and incorporate PPT- to challenge. PT-OP-T Assessment and Plan Start: 09/08/23 17:41 Freq: Status: Active Protocol: Document 01/24/24 14:37 [facility] (Rec: 01/24/24 15:54 [facility] [id number]) Physical Therapy Assessment Goals strength Short Term Goal (STG) Pt will be indep w/HEP STG Duration achieved advancinga s able Furnace Operator Goal (LTG) Pt will score at least 4+/5 on all LE MMT B (including hip abd and ext) and at least 3/5 LPM to show improved core and LE stability in order to allow for pt to do more daily activities w/o inc pain. 1/2-slow progress LTG Duration 02/07 activity Short Term Goal (STG) Pt will be able to do at least 2 miles worth of steps in her day w/o pain greater than 4/ 10 10/12-03/08 with about 1 to 1.5 miles on average 1/2-1.75 to 2 miles a day 04/07 STG Duration 12/30 Shelter Goal (LTG) Pt will return to being able to go for walks of at least 2 miles w/o pain stopping her from this activity. 1/2-went around the block and has hills; did 1 lap [place] [employer] LTG Duration 02/07 balance Short Term Goal (STG) Pt will improve SLS to at least 5 sec B to show improved balance and stabilty 10/12-no change 1/2-4 sec L; 3 sec R STG Duration 12/30 Furnace Operator Goal (LTG) Pt will improve SLS to at least 10 sec B to show improved balanec and stabilty LTG Duration 02/07 Assessment Summary Assessment CREDIT REVIEW MANAGER cued pt not forceful PPT hooklying, challenged on side and standing today, tends to compensate retrotrunk lean. Attempted rockerboard wt shift more anterior then add PPT but to advanced. Pt reported L glut and HS sore/discomfort, improved post manual. Pt reports good feedback less tension post reviewed stretches, provided towel for added support and pt stated uses ball on wall for self STMs that does help and modalities to support pain relief at home. Pt is challenged with core strength dynamic mobility would beneifit from continued skilled PT to progress spinal stabilization. Physical Therapy Plan Frequency and Duration Frequency of Treatment 1-2x/wk Duration of treatment (weeks) 10 Plan of Care Start Date 11/30/23 Plan of Care End Date 02/08/24 Therapeutic Interventions Therapeutic Interventions Balance Training,Gait Training ,Home Exercise Program,Joint Mobilizations,Manual Therapy, Neuromuscular Re-education, Orthotic/Prosthetic Management ,Patient/Caregiver Education, Self-Care/Home Management,Soft Tissue Mobilization,Taping, Therapeutic Activities, Therapeutic Exercises Modalities Cold Pack/Ice Massage,Electric Stimulation,Hot Packs, Ultrasound Next Visit Focus/Plan Next Note Type Treatment Note Next Visit Plan Recheck if need more than 2 more appts, update POC. POC: work on ant region to improve PPT (hip flexors R>L, abdominal scars), review exercsies that cause pain in exercise class
--- NOTE | 2024-01-31 15:18 | PT.OTN ---
Current Diagnoses Spondylosis without myelopathy or radiculopathy, lumbar region (01/31/24) Radiculopathy, lumbar region (01/31/24) Dorsalgia, unspecified (01/31/24) Difficulty in walking, not elsewhere classified (01/31/24) Abnormal posture (01/31/24) Weakness (01/31/24) Other specified postprocedural states (01/31/24) Physical Therapy Treatment Note PT-OP-A Visit Information Start: 09/08/23 17:41 Freq: Status: Active Protocol: Document 01/31/24 14:28 [facility] (Rec: 01/31/24 15:18 [facility] [id number]) Out-Patient Physical Therapy Visit Information Visit Information Visit Type Treatment Note Visit Note 06/07 Visit Start Time 14:34 Visit Stop Time 15:14 Visit Number 25 Number of BEEF SPLITTER Visits 0 PT-OP-B Current Condition Start: 09/08/23 17:41 Freq: Status: Active Protocol: Document 09/09/23 12:47 [facility] (Rec: 09/09/23 13:34 [facility] [id number]) Current Condition History of Current Condition Onset Date decades worse recently Current Complaints LBP w/L leg pain History of Current Condition Pt reports LBP that is chronic (decades). pt had TLIF of L3- 4 in 2019. Pt reports recently pain getting worse again. Pain mostly on L side of back, L hip and into L HS. She has a back brace that she is only using occ d/t MD rec. Pt is avoiding just about everything d/t pain. Pt is trying to track her activity and is aiming to get at least 1 mile total on a day. Pt was up to 4 miles total a day in Jul/aug 2022 and it started to keep decreasing. She has noticed she is standing against the wall a lot. She has occ had to use a cane.P thas a BIPAP machine and is supposed to sleep on her back but has been laying on her side. It has been about 8 years ago that this was difficult. Pt reports LUE and LLLE swell. Pt reports his L leg does give out and feel weak on her. She has had some falls but no injuries. Sometimes she notices she is leaning and she has knocked into the door. She feels like her balance isn 't so good. She doesn't ahve the same response in that leg. Pt does report a diastisis d/ t 2 C sections. Pt reports occ when walking her ankles will just freeze and she just can' t move it and has to slowly wiggle it to get going. Pt reports hx of appendectomy and gallbladder removal. Pt [place] last fall. She can't even make a whole block right now. Pt doing cardio pulm rehab maintence 2x/week. Treatment Goals Patient/Caregiver Goals Be able to walk, do housework, improved balance PT-OP-C Subjective Start: 09/08/23 17:41 Freq: Status: Active Protocol: Document 01/31/24 14:28 [facility] (Rec: 01/31/24 15:18 [facility] [id number]) OP-PT Subjective Patient Comments Patient Comments Pt reports doing a little better when throwing her hips out and that helps a lot. Reports has been having a pinch feeling since injection on L sup glute and it goes from sup glute down to thigh. Feels like is moving a little better. Has been doing [place] class and thinks that helps. Patient Reported Progress Improving PT-OP-D Balance Start: 09/08/23 17:41 Freq: Status: Active Protocol: Document 10/12/23 11:22 [facility] (Rec: 10/12/23 18:04 [facility] [id number]) Balance Tests Single Limb Standing Single Limb- Right 3 sec Single Limb- Left 2 sec PT-OP-G Mobility & Gait Start: 09/08/23 17:41 Freq: Status: Active Protocol: Document 09/09/23 12:47 [facility] (Rec: 09/09/23 18:46 [facility] [id number]) OP Gait Assessment Comments Gait Comments Pt amb w/lat lean B and dec stance time w/o push off PT-OP-J Posture/Palpation/Skin Start: 09/08/23 17:41 Freq: Status: Active Protocol: Document 11/30/23 13:09 [facility] (Rec: 11/30/23 15:38 [facility] [id number]) Posture Evaluation Inocencia Postural Classification System Lumbar Protective Mechanism Left AP 1 Lumbar Protective Mechanism Right AP 1 Lumbar Protective Mechanism Left PA 1 Lumbar Protective Mechanism Right PA 1 PT-OP-K Range of Motion Start: 10/11/23 17:41 Freq: Status: Active Protocol: Document 09/09/23 12:47 [facility] (Rec: 09/09/23 13:34 [facility] [id number]) Lumbar Spine Range of Motion Lumbar Spine Active Percentage Flexion 5 Extension 25 Rotation Left 40 Rotation Right 20 Lateral Flexion Left 60 Lateral Flexion Right 50 Comments pain w/all motions PT-OP-M Strength Start: 09/08/23 17:41 Freq: Status: Active Protocol: Document 11/30/23 13:09 [facility] (Rec: 11/30/23 15:38 [facility] [id number]) Hip Strength Hip Manual Muscle Testing Right Flexion (L2) 3+ Fair+ Abduction 3+ Fair+ External Rotation 4+ Good+ Internal Rotation 4+ Good+ Left Flexion (L2) 3+ Fair+ Abduction 4- Good- External Rotation 4+ Good+ Internal Rotation 5 Normal Comments disocmfort in hip flex B Knee Strength Knee Manual Muscle Testing Right Flexion (S2) 4+ Good+ Extension (L3) 5 Normal Left Flexion (S2) 5 Normal Extension (L3) 5 Normal Ankle/Foot Strength Ankle and Foot Manual Muscle Testing Right Dorsiflexion (L4) 4+ Good+ Plantarflexion (S1) 5 Normal Left Dorsiflexion (L4) 4+ Good+ Plantarflexion (S1) 5 Normal Comments seated PF testing B PT-OP-Q Treatments Start: 09/08/23 17:41 Freq: Status: Active Protocol: Document 01/31/24 14:28 [facility] (Rec: 01/31/24 15:18 [facility] [id number]) Therapeutic Exercises Standing Exercises pelvic tilt Standing Exercise Name 1. pelvic tilt w/holding bar Side bilateral Reps/Minutes 10 ea Comments reports tension glut and HS, cued not lean back/keep toes down. Stretch Standing Exercise Name 1. hip flexor 2. fwd bend to chair w/cues to angry cat Side bilateral Reps/Minutes 1. 1 min ea 2. 30 sec x2 hip abd Side bilateral Equipment Used L1 Reps/Minutes 20ft Comments cues for spine neutral-had todo slight fwd hip hinge to dec pain Manual Therapy Treatment Soft Tissue Mobilization back Body Location b ES, QL Mobilization Type Myofascial Release,Rolling, Strumming Intensity/Depth Moderate Body Position Sidelying hip Body Location B glute/piriformis Mobilization Type Rolling,Strumming,Sustained Pressure Intensity/Depth Moderate Body Position s/l abdomen Body Location scar (appy & gallbladder removal) & lat RA Comments W/ AAROM hip flex Joint Mobilizations sacrum Comments caudal FM s/l PT-OP-T Assessment and Plan Start: 09/08/23 17:41 Freq: Status: Active Protocol: Document 01/31/24 14:28 [facility] (Rec: 01/31/24 15:18 [facility] [id number]) Physical Therapy Assessment Goals strength Short Term Goal (STG) Pt will be indep w/HEP STG Duration achieved advancinga s able Mcc Goal (LTG) Pt will score at least 4+/5 on all LE MMT B (including hip abd and ext) and at least 3/5 LPM to show improved core and LE stability in order to allow for pt to do more daily activities w/o inc pain. 1/2-slow progress LTG Duration 02/07 activity Short Term Goal (STG) Pt will be able to do at least 2 miles worth of steps in her day w/o pain greater than 10/12-03/08 with about 1 to 1.5 miles on average /2-1.75 to 2 miles a day 04/07 STG Duration 12/30 Mcc Goal (LTG) Pt will return to being able to go for walks of at least 2 miles w/o pain stopping her from this activity. 1/2-went around the block and has hills; did 1 [place] LTG Duration 02/07 balance Short Term Goal (STG) Pt will improve SLS to at least 5 sec B to show improved balance and stabilty 10/12-no change 1/2-4 sec L; 3 sec R STG Duration 12/30 Mcc Goal (LTG) Pt will improve SLS to at least 10 sec B to show improved balanec and stabilty LTG Duration 02/07 Assessment Summary Assessment Pt reports some relif w/manual and did have improved spinal flex. encouraged pt to cont to work standing exercises at home for ROM and strength. Physical Therapy Plan Frequency and Duration Frequency of Treatment 1-2x/wk Duration of treatment (weeks) 10 Plan of Care Start Date 11/30/23 Plan of Care End Date 02/08/24 Next Visit Focus/Plan Next Note Type Progress Note Next Visit Plan check if pt ready for DC or new POC
--- NOTE | 2024-02-07 18:19 | PT.OTN ---
Current Diagnoses Spondylosis without myelopathy or radiculopathy, lumbar region (02/07/24) Radiculopathy, lumbar region (02/07/24) Dorsalgia, unspecified (02/07/24) Difficulty in walking, not elsewhere classified (02/07/24) Abnormal posture (02/07/24) Weakness (02/07/24) Other specified postprocedural states (02/07/24) Physical Therapy Treatment Note PT-OP-A Visit Information Start: 09/08/23 17:41 Freq: Status: Active Protocol: Document 02/07/24 13:50 [facility] (Rec: 02/07/24 18:18 [facility] [id number]) Out-Patient Physical Therapy Visit Information Visit Information Visit Type Progress Note Visit Note 12/08 Visit Start Time 13:50 Visit Stop Time 14:43 Visit Number 26 Number of INTERLINE CLERK Visits 0 PT-OP-B Current Condition Start: 09/08/23 17:41 Freq: Status: Active Protocol: Document 09/09/23 12:47 [facility] (Rec: 09/09/23 13:34 [facility] [id number]) Current Condition History of Current Condition Onset Date decades worse recently Current Complaints LBP w/L leg pain History of Current Condition Pt reports LBP that is chronic (decades). pt had TLIF of L3- 4 in 2019. Pt reports recently pain getting worse again. Pain mostly on L side of back, L hip and into L HS. She has a back brace that she is only using occ d/t MD rec. Pt is avoiding just about everything d/t pain. Pt is trying to track her activity and is aiming to get at least 1 mile total on a day. Pt was up to 4 miles total a day in Jul/aug 2022 and it started to keep decreasing. She has noticed she is standing against the wall a lot. She has occ had to use a cane.P thas a BIPAP machine and is supposed to sleep on her back but has been laying on her side. It has been about 8 years ago that this was difficult. Pt reports LUE and LLLE swell. Pt reports his L leg does give out and feel weak on her. She has had some falls but no injuries. Sometimes she notices she is leaning and she has knocked into the door. She feels like her balance isn 't so good. She doesn't ahve the same response in that leg. Pt does report a diastisis d/ t 2 C sections. Pt reports occ when walking her ankles will just freeze and she just can' t move it and has to slowly wiggle it to get going. Pt reports hx of appendectomy and gallbladder removal. Pt was walking [email or web address] trail until last fall. She can't even make a whole block right now. Pt doing cardio pulm rehab maintence 2x/week. Treatment Goals Patient/Caregiver Goals Be able to walk, do housework, improved balance PT-OP-C Subjective Start: 09/08/23 17:41 Freq: Status: Active Protocol: Document 02/07/24 13:50 [facility] (Rec[facility]/07/24 18[id number] Subjective Patient Comments Patient Comments Pt is reporitng she is not falling over as easy and can do more twisting activities. Patient Reported Progress Improving PT-OP-D Balance Start: 09/08/23 17:41 Freq: Status: Active Protocol: Document 10/12/23 11:22 [facility] (Rec: 10/12/23 18:04 [id number] Balance Tests Single Limb Standing Single Limb- Right 3 sec Single Limb- Left 2 sec PT-OP-G Mobility & Gait Start: 09/08/23 17:41 Freq: Status: Active Protocol: Document 09/09/23 12:47 [facility] (Rec: 09/09/23 18:46 [facility] [id number]) OP Gait Assessment Comments Gait Comments Pt amb w/lat lean B and dec stance time w/o push off PT-OP-J Posture/Palpation/Skin Start: 09/08/23 17:41 Freq: Status: Active Protocol: Document 02/07/24 13:50 [facility] (Rec: 02/07/24 18:18 [facility] [id number]) Posture Evaluation Inocencia Postural Classification System Lumbar Protective Mechanism Left AP 1 Lumbar Protective Mechanism Right AP 1 Lumbar Protective Mechanism Left PA 1 Lumbar Protective Mechanism Right PA 1 PT-OP-K Range of Motion Start: 09/08/23 17:41 Freq: Status: Active Protocol: Document 09/09/23 12:47 [facility] (Rec: 09/09/23 13:34 [facility] [id number]) Lumbar Spine Range of Motion Lumbar Spine Active Percentage Flexion 5 Extension 25 Rotation Left 40 Rotation Right 20 Lateral Flexion Left 60 Lateral Flexion Right 50 Comments pain w/all motions PT-OP-M Strength Start: 09/08/23 17:41 Freq: Status: Active Protocol: Document 02/07/24 13:50 [facility] (Rec: 02/07/24 18:18 [facility] [id number]) Hip Strength Hip Manual Muscle Testing Right Flexion (L2) 3+ Fair+ Abduction 3 Fair External Rotation 4+ Good+ Internal Rotation 5 Normal Left Flexion (L2) 3+ Fair+ Abduction 4- Good- External Rotation 4+ Good+ Internal Rotation 5 Normal Knee Strength Knee Manual Muscle Testing Right Flexion (S2) 4+ Good+ Extension (L3) 5 Normal Left Flexion (S2) 5 Normal Extension (L3) 5 Normal Ankle/Foot Strength Ankle and Foot Manual Muscle Testing Right Dorsiflexion (L4) 5 Normal Plantarflexion (S1) 5 Normal Left Dorsiflexion (L4) 5 Normal Plantarflexion (S1) 5 Normal Comments seated PF testing B PT-OP-Q Treatments Start: 09/08/23 17:41 Freq: Status: Active Protocol: Document 02/07/24 13:50 [facility] (Rec: 02/07/24 18:18 [facility] [id number]) Manual Therapy Treatment Soft Tissue Mobilization hip flexor Body Location R Mobilization Type Sustained Pressure Intensity/Depth Moderate Body Position Hooklying Joint Mobilizations innominate Joint L add FM w/post dep sacrum Joint L caudal FM PT-OP-R Modalities Start: 09/08/23 17:41 Freq: Status: Active Protocol: Document 02/07/24 13:50 [facility] (Rec: 02/07/24 18:19 [facility] [id number]) Electric Stimulation Electric Stimulation Interferential Current (IFC) Body Location LS region Patient Position Sidelying Combined With Heat/Cold Hot Pack PT-OP-T Assessment and Plan Start: 09/08/23 17:41 Freq: Status: Active Protocol: Document 02/07/24 13:50 [facility] (Rec: 02/07/24 18:18 [facility] [id number]) Physical Therapy Assessment Goals strength Short Term Goal (STG) Pt will be indep w/HEP STG Duration achieved advancinga s able Pastry Assistant Goal (LTG) Pt will score at least 4+/5 on all LE MMT B (including hip abd and ext) and at least 3/5 LPM to show improved core and LE stability in order to allow for pt to do more daily activities w/o inc pain. 11/30-slow progress 02/06-no change LTG Duration 04/11 activity Short Term Goal (STG) Pt will be able to do at least 2 miles worth of steps in her day w/o pain greater than 4/ 10 10/12-03/08 with about 1 to 1.5 miles on average 11/30-1.75 to 2 miles a day 04/07 02/06-took a small walk yesterday but came in d/t weather, pain 04/07 still limited during day STG Duration 03/09 Pastry Assistant Goal (LTG) Pt will return to being able to go for walks of at least 2 miles w/o pain stopping her from this activity. 11/30-went around the block and has hills; did 1 lap [place] [place] 02/06-1 block walk -03/08- stopped d/t weather; limited d /t snow, ice, wind and weather LTG Duration 04/08 balance Short Term Goal (STG) Pt will improve SLS to at least 5 sec B to show improved balance and stabilty 10/12-no change 11/30-4 sec L; 3 sec R 02/06-5 sec R; 9 sec L STG Duration achieved 02/06 Correction Goal (LTG) Pt will improve SLS to at least 10 sec B to show improved balanec and stabilty 02/06-5 sec R; 9 sec L LTG Duration 04/08 Assessment Summary Assessment Pt has made limited progresss at this time but is showing improved balancea nd is reporting she is feeling like seh can move her back more 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 Pt to work w/PT for about 4 weeks to focus on HEP and dec pain as able and work towards DC Physical Therapy Plan Frequency and Duration Frequency of Treatment 1x/Week Duration of treatment (weeks) 8 Plan of Care Start Date 02/07/24 Plan of Care End Date 04/11/24 Therapeutic Interventions Therapeutic Interventions Balance Training,Gait Training ,Home Exercise Program,Joint Mobilizations,Manual Therapy, Neuromuscular Re-education, Orthotic/Prosthetic Management ,Patient/Caregiver Education, Self-Care/Home Management,Soft Tissue Mobilization,Taping, Therapeutic Activities, Therapeutic Exercises Modalities Cold Pack/Ice Massage,Electric Stimulation,Hot Packs, Ultrasound Next Visit Focus/Plan Next Note Type Treatment Note Next Visit Plan cont to work on core stability to dec back pain w/ mobility
--- NOTE | 2024-02-07 18:19 | PT.OPPOC ---
Physical, Occupational & Speech Therapy At [facility] Current Diagnoses Spondylosis without myelopathy or radiculopathy, lumbar region (02/07/24) Radiculopathy, lumbar region (02/07/24) Dorsalgia, unspecified (02/07/24) Difficulty in walking, not elsewhere classified (02/07/24) Abnormal posture (02/07/24) Weakness (02/07/24) Other specified postprocedural states (02/07/24) Visit Care Team Role Provider Type FLORIN Enamorado Family Provider Non-Staff Primary Care Provider Specialty: Family Practice Address: [address], [place], [address] Email: Jerrell Bonner MD Attending Provider Physician Referring Provider Specialty: Anesthesiology Interventional Radiology Pain Management Address: [address] [place], [address] Email: [email or web address] Plan Of Care PT-OP-T Assessment and Plan Start: 09/08/23 17:41 Freq: Status: Active Protocol: Document 02/07/24 13:50 [facility] (Rec: 02/07/24 18:18 [facility] [id number]) Physical Therapy Assessment Goals strength Short Term Goal (STG) Pt will be indep w/HEP STG Duration achieved advancinga s able Care Home Goal (LTG) Pt will score at least 4+/5 on all LE MMT B (including hip abd and ext) and at least 3/5 LPM to show improved core and LE stability in order to allow for pt to do more daily activities w/o inc pain. 11/30-slow progress 02/06-no change LTG Duration 04/11 activity Short Term Goal (STG) Pt will be able to do at least 2 miles worth of steps in her day w/o pain greater than 10/12-03/08 with about 1 to 1.5 miles on average 1/2-1.75 to 2 miles a day 04/07 02/06-took a small walk yesterday but came in d/t weather, pain 5/10 still limited during day STG Duration 03/09 Wire Annealer Goal (LTG) Pt will return to being able to go for walks of at least 2 miles w/o pain stopping her from this activity. 11/30-went around the block and has hills; [place] 1 [place] 02/06-1 block walk -03/08- stopped d/t weather; limited d /t snow, ice, wind and weather LTG Duration 04/08 balance Short Term Goal (STG) Pt will improve SLS to at least 5 sec B to show improved balance and stabilty 10/12-no change 11/30-4 sec L; 3 sec R 02/06-5 sec R; 9 sec L STG Duration achieved 02/06 Care Home Goal (LTG) Pt will improve SLS to at least 10 sec B to show improved balanec and stabilty 02/06-5 sec R; 9 sec L LTG Duration 04/08 Assessment Summary Assessment Pt has made limited progresss at this time but is showing improved balancea nd is reporting she is feeling like seh can move her back more 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 Pt to work w/PT for about 4 weeks to focus on HEP and dec pain as able and work towards DC Physical Therapy Plan Frequency and Duration Frequency of Treatment 1x/Week Duration of treatment (weeks) 8 Plan of Care Start Date 02/07/24 Plan of Care End Date 04/11/24 Therapeutic Interventions Therapeutic Interventions Balance Training,Gait Training ,Home Exercise Program,Joint Mobilizations,Manual Therapy, Neuromuscular Re-education, Orthotic/Prosthetic Management ,Patient/Caregiver Education, Self-Care/Home Management,Soft Tissue Mobilization,Taping, Therapeutic Activities, Therapeutic Exercises Modalities Cold Pack/Ice Massage,Electric Stimulation,Hot Packs, Ultrasound Next Visit Focus/Plan Next Note Type Treatment Note Next Visit Plan cont to work on core stability to dec back pain w/ mobility Plan of Care Dates Plan of Care Start Date 02/07/24 Plan of Care End Date 04/11/24 Electronically Signed by: Sarah Brito, PT 02/07/24 [id number] If you are in agreement with this Plan of Care, please return a signed and dated copy. I have reviewed this Plan of Care and certify that the skilled therapy services above are required to meet the patient?s needs. Physician Signature Date Printed Name and Credentials Clinical Instructor Signature Printed Name and Credentials
--- NOTE | 2024-02-21 10:36 | PT.OTN ---
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) Radiculopathy, lumbar region (02/21/24) Dorsalgia, unspecified (02/21/24) Difficulty in walking, not elsewhere classified (02/21/24) Abnormal posture (02/21/24) Weakness (02/21/24) Other specified postprocedural states (02/21/24) Physical Therapy Treatment Note PT-OP-A Visit Information Start: 09/08/23 17:41 Freq: Status: Active Protocol: Document 02/21/24 09:48 SP (Rec: 02/21/24 10:31 SP [id number]) Out-Patient Physical Therapy Visit Information Visit Information Visit Type Treatment Note Visit Start Time 09:48 Visit Stop Time 10:36 Visit Number 27 Number of BELT MOLDER Visits 1 PT-OP-B Current Condition Start: 09/08/23 17:41 Freq: Status: Active Protocol: Document 09/09/23 12:47 [facility] (Rec: 09/09/23 13:34 [facility] [id number]) Current Condition History of Current Condition Onset Date decades worse recently Current Complaints LBP w/L leg pain History of Current Condition Pt reports LBP that is chronic (decades). pt had TLIF of L3- 4 in 2020. Pt reports recently pain getting worse again. Pain mostly on L side of back, L hip and into L HS. She has a back brace that she is only using occ d/t MD rec. Pt is avoiding just about everything d/t pain. Pt is trying to track her activity and is aiming to get at least 1 mile total on a day. Pt was up to 4 miles total a day in Jul/aug 2022 and it started to keep decreasing. She has noticed she is standing against the wall a lot. She has occ had to use a cane.P thas a BIPAP machine and is supposed to sleep on her back but has been laying on her side. It has been about 8 years ago that this was difficult. Pt reports LUE and LLLE swell. Pt reports his L leg does give out and feel weak on her. She has had some falls but no injuries. Sometimes she notices she is leaning and she has knocked into the door. She feels like her balance isn 't so good. She doesn't ahve the same response in that leg. Pt does report a diastisis d/ t 2 C sections. Pt reports occ when walking her ankles will just freeze and she just can' t move it and has to slowly wiggle it to get going. Pt reports hx of appendectomy and gallbladder removal. Pt was walking [employer] [place] until last fall. She can't even make a whole block right now. Pt doing cardio pulm rehab maintence 2x/week. Treatment Goals Patient/Caregiver Goals Be able to walk, do housework, improved balance PT-OP-C Subjective Start: 09/08/23 17:41 Freq: Status: Active Protocol: Document 02/21/24 09:48 SP (Rec: 02/21/24 10:31 SP [id number]) OP-PT Subjective Patient Comments Patient Comments Pt ambulates L trunk posture SB and guarded slight flexed posturing upon arrival. She stated reported fell on ground because missed last 2 steps turn to clip stewart slightly behind her. Seen at ER and CT scans reporte contusions but nothing broken. Hurts R lower lateral trunk/ribcage. Ok turning R but hurts to rotation left at her trunk. PT-OP-D Balance Start: 09/08/23 17:41 Freq: Status: Active Protocol: Document 10/12/23 11:22 [facility] (Rec: 10/12/23 18:04 [facility] [id number]) Balance Tests Single Limb Standing Single Limb- Right 3 sec Single Limb- Left 2 sec PT-OP-G Mobility & Gait Start: 09/08/23 17:41 Freq: Status: Active Protocol: Document 09/09/23 12:47 [facility] (Rec: 09/09/23 18:46 [facility] [id number]) OP Gait Assessment Comments Gait Comments Pt amb w/lat lean B and dec stance time w/o push off PT-OP-J Posture/Palpation/Skin Start: 09/08/23 17:41 Freq: Status: Active Protocol: Document 02/07/24 13:50 LR (Rec: 02/07/24 18:18 [facility] [id number]) Posture Evaluation Inocencia Postural Classification System Lumbar Protective Mechanism Left AP 1 Lumbar Protective Mechanism Right AP 1 Lumbar Protective Mechanism Left PA 1 Lumbar Protective Mechanism Right PA 1 PT-OP-K Range of Motion Start: 09/08/23 17:41 Freq: Status: Active Protocol: Document 09/09/23 12:47 LR (Rec: 09/09/23 13:34 [facility] [id number]) Lumbar Spine Range of Motion Lumbar Spine Active Percentage Flexion 5 Extension 25 Rotation Left 40 Rotation Right 20 Lateral Flexion Left 60 Lateral Flexion Right 50 Comments pain w/all motions PT-OP-M Strength Start: 09/08/23 17:41 Freq: Status: Active Protocol: Document 02/07/24 13:50 [facility] (Rec: 02/07/24 18:18 [facility] [id number]) Hip Strength Hip Manual Muscle Testing Right Flexion (L2) 3+ Fair+ Abduction 3 Fair External Rotation 4+ Good+ Internal Rotation 5 Normal Left Flexion (L2) 3+ Fair+ Abduction 4- Good- External Rotation 4+ Good+ Internal Rotation 5 Normal Knee Strength Knee Manual Muscle Testing Right Flexion (S2) 4+ Good+ Extension (L3) 5 Normal Left Flexion (S2) 5 Normal Extension (L3) 5 Normal Ankle/Foot Strength Ankle and Foot Manual Muscle Testing Right Dorsiflexion (L4) 5 Normal Plantarflexion (S1) 5 Normal Left Dorsiflexion (L4) 5 Normal Plantarflexion (S1) 5 Normal Comments seated PF testing B PT-OP-Q Treatments Start: 09/08/23 17:41 Freq: Status: Active Protocol: Document 02/21/24 09:48 SP (Rec: 02/21/24 10:31 SP [id number]) Therapeutic Exercises Sidelying Exercises opn book Sidelying Exercise Name trialed- cued breath x2 end feel comfort Side bilateral Resistance AROM Reps/Minutes 5 reps Comments manual fac scapular ROM and TS rotation post manual- pnfree range R SL legs off table Sidelying Exercise Name trialed Side left Comments /c breath for L lateral trunk elongation stretch during STMs , MWM ribcage Sitting Exercises trunk rotation Side bilateral Resistance arms across chest Equipment Used EO black table Reps/Minutes x4 ea Comments cued painfree range, ok R but pain to L so stopped Standing Exercises hip abd Side bilateral Equipment Used L1> AROM Reps/Minutes kicks 2x10 each Comments cues for spine neutral-had todo slight fwd hip hinge to dec pain Manual Therapy Treatment Soft Tissue Mobilization thoracic Body Location L T 5-10 Mobilization Type Strumming,Sustained Pressure, Other Comments STMs, caudal pressure on ribs /c breath Joint Mobilizations ribs Joint R 8-10 Grade II Comments caudal with exhale, resist inhale then release allow expansion PT-OP-R Modalities Start: 09/08/23 17:41 Freq: Status: Active Protocol: Document 02/21/24 09:48 SP (Rec: 02/21/24 10:31 SP [id number]) Electric Stimulation Electric Stimulation Interferential Current (IFC) Body Location LS region Patient Position Hooklying Combined With Heat/Cold Hot Pack PT-OP-T Assessment and Plan Start: 09/08/23 17:41 Freq: Status: Active Protocol: Document 02/21/24 09:48 SP (Rec: 02/21/24 10:31 SP [id number]) Physical Therapy Assessment Goals strength Short Term Goal (STG) Pt will be indep w/HEP STG Duration achieved advancinga s able Long-Term Goal (LTG) Pt will score at least 4+/5 on all LE MMT B (including hip abd and ext) and at least 3/5 LPM to show improved core and LE stability in order to allow for pt to do more daily activities w/o inc pain. 1-slow progress 02/06-no change LTG Duration 04/11 activity Short Term Goal (STG) Pt will be able to do at least 2 miles worth of steps in her day w/o pain greater than 4 10 10/12-03/08 with about 1 to 1.5 miles on average 2-1.75 to 2 miles a day 04/07 02/06-took a small walk yesterday but came in d/t weather, pain 04/07 still limited during day STG Duration 03/09 Prescriptionist Goal (LTG) Pt will return to being able to go for walks of at least 2 miles w/o pain stopping her from this activity. 11/30-went around the block and has hills; did 1 lap [place] [employer] 02/06-1 block walk -03/08- stopped d/t weather; limited d /t snow, ice, wind and weather LTG Duration 04/08 balance Short Term Goal (STG) Pt will improve SLS to at least 5 sec B to show improved balance and stabilty 10/12-no change 11/30-4 sec L; 3 sec R 02/06-5 sec R; 9 sec L STG Duration achieved 02/06 Long-Term Goal (LTG) Pt will improve SLS to at least 10 sec B to show improved balanec and stabilty 02/06-5 sec R; 9 sec L LTG Duration 04/08 Assessment Summary Assessment Pt improved TS rotation R better than L post manual sidelying sTM and caudal pressure with breath MWM. Increased R mid thoracic pain rotating L seated AROM while assessing change of position. Pt unable to tolerated standing hip abd AROM with reports of pain R mid and low back. Pt reportes reduction pain end tx post modalities. Physical Therapy Plan Frequency and Duration Frequency of Treatment 1x/Week Duration of treatment (weeks) 8 Plan of Care Start Date 02/07/24 Plan of Care End Date 04/11/24 Therapeutic Interventions Therapeutic Interventions Balance Training,Gait Training ,Home Exercise Program,Joint Mobilizations,Manual Therapy, Neuromuscular Re-education, Orthotic/Prosthetic Management ,Patient/Caregiver Education, Self-Care/Home Management,Soft Tissue Mobilization,Taping, Therapeutic Activities, Therapeutic Exercises Modalities Cold Pack/Ice Massage,Electric Stimulation,Hot Packs, Ultrasound Next Visit Focus/Plan Next Note Type Treatment Note Next Visit Plan Assess response to manual and modalities last tx. POC: cont to work on core stability to dec back pain w/ mobility
--- NOTE | 2024-03-01 15:46 | PT.OTN ---
Current Diagnoses Spondylosis without myelopathy or radiculopathy, lumbar region (03/01/24) Radiculopathy, lumbar region (03/01/24) Dorsalgia, unspecified (03/01/24) Difficulty in walking, not elsewhere classified (03/01/24) Abnormal posture (03/01/24) Weakness (03/01/24) Other specified postprocedural states (03/01/24) Physical Therapy Treatment Note PT-OP-A Visit Information Start: 09/08/23 17:41 Freq: Status: Active Protocol: Document 03/01/24 09:42 [facility] (Rec: 03/01/24 10:33 [facility] [id number]) Out-Patient Physical Therapy Visit Information Visit Information Visit Type Treatment Note Visit Start Time 09:45 Visit Stop Time 10:30 Visit Number 28 Number of SALES CONSULTANT INSURANCE Visits 0 PT-OP-B Current Condition Start: 09/08/23 17:41 Freq: Status: Active Protocol: Document 09/09/23 12:47 [facility] (Rec: 09/09/23 13:34 [facility] [id number]) Current Condition History of Current Condition Onset Date decades worse recently Current Complaints LBP w/L leg pain History of Current Condition Pt reports LBP that is chronic (decades). pt had TLIF of L3- 4 in 2020. Pt reports recently pain getting worse again. Pain mostly on L side of back, L hip and into L HS. She has a back brace that she is only using occ d/t MD rec. Pt is avoiding just about everything d/t pain. Pt is trying to track her activity and is aiming to get at least 1 mile total on a day. Pt was up to 4 miles total a day in Jul/aug 2022 and it started to keep decreasing. She has noticed she is standing against the wall a lot. She has occ had to use a cane.P thas a BIPAP machine and is supposed to sleep on her back but has been laying on her side. It has been about 8 years ago that this was difficult. Pt reports LUE and LLLE swell. Pt reports his L leg does give out and feel weak on her. She has had some falls but no injuries. Sometimes she notices she is leaning and she has knocked into the door. She feels like her balance isn 't so good. She doesn't ahve the same response in that leg. Pt does report a diastisis d/ t 2 C sections. Pt reports occ when walking her ankles will just freeze and she just can' t move it and has to slowly wiggle it to get going. Pt reports hx of appendectomy and gallbladder removal. Pt was walking [employer] [place] until last fall. She can't even make a whole block right now. Pt doing cardio pulm rehab maintence 2x/week. Treatment Goals Patient/Caregiver Goals Be able to walk, do housework, improved balance PT-OP-C Subjective Start: 09/08/23 17:41 Freq: Status: Active Protocol: Document 03/01/24 09:42 [facility] (Rec: 03/01/24 10:33 [facility] [id number]) OP-PT Subjective Patient Comments Patient Comments Reports minimal change in her back pain, difficulty with personal care, standing and bending over to pick things up . Using ice, heat, trying to do HEP but painful to stretch left side, has skipped cardiac rehab last 2 weeks due to the pain. NOt getting better, sees Dr. López 03/09/24. Coughing aggravates her back as well. Has not tried aquatic exercise. PT-OP-D Balance Start: 09/08/23 17:41 Freq: Status: Active Protocol: Document 10/12/23 11:22 [facility] (Rec: 10/12/23 18:04 [facility] [id number]) Balance Tests Single Limb Standing Single Limb- Right 3 sec Single Limb- Left 2 sec PT-OP-G Mobility & Gait Start: 09/08/23 17:41 Freq: Status: Active Protocol: Document 09/09/23 12:47 [facility] (Rec: 09/09/23 18:46 [facility] [id number]) OP Gait Assessment Comments Gait Comments Pt amb w/lat lean B and dec stance time w/o push off PT-OP-J Posture/Palpation/Skin Start: 09/08/23 17:41 Freq: Status: Active Protocol: Document 02/07/24 13:50 [facility] (Rec: 02/07/24 18:18 [facility] [id number]) Posture Evaluation Inocencia Postural Classification System Lumbar Protective Mechanism Left AP 1 Lumbar Protective Mechanism Right AP 1 Lumbar Protective Mechanism Left PA 1 Lumbar Protective Mechanism Right PA 1 PT-OP-K Range of Motion Start: 09/08/23 17:41 Freq: Status: Active Protocol: Document 09/09/23 12:47 [facility] (Rec: 09/09/23 13:34 [facility] [id number]) Lumbar Spine Range of Motion Lumbar Spine Active Percentage Flexion 5 Extension 25 Rotation Left 40 Rotation Right 20 Lateral Flexion Left 60 Lateral Flexion Right 50 Comments pain w/all motions PT-OP-M Strength Start: 09/08/23 17:41 Freq: Status: Active Protocol: Document 02/07/24 13:50 [facility] (Rec: 02/07/24 18:18 [facility] [id number]) Hip Strength Hip Manual Muscle Testing Right Flexion (L2) 3+ Fair+ Abduction 3 Fair External Rotation 4+ Good+ Internal Rotation 5 Normal Left Flexion (L2) 3+ Fair+ Abduction 4- Good- External Rotation 4+ Good+ Internal Rotation 5 Normal Knee Strength Knee Manual Muscle Testing Right Flexion (S2) 4+ Good+ Extension (L3) 5 Normal Left Flexion (S2) 5 Normal Extension (L3) 5 Normal Ankle/Foot Strength Ankle and Foot Manual Muscle Testing Right Dorsiflexion (L4) 5 Normal Plantarflexion (S1) 5 Normal Left Dorsiflexion (L4) 5 Normal Plantarflexion (S1) 5 Normal Comments seated PF testing B PT-OP-Q Treatments Start: 09/08/23 17:41 Freq: Status: Active Protocol: Document 03/01/24 09:42 [facility] (Rec: 03/01/24 10:33 [facility] [id number]) Therapeutic Exercises Supine Exercises Kegel Reps/Minutes 10x Comments cues for pain-free intensity PPT Supine Exercise Name posterior pelvic tilt Reps/Minutes x10 Comments cues for breath LTR Side bilateral Reps/Minutes 12 Comments tactile cues for PPT and core engagement diaphragmatic breathing Reps/Minutes 10 Comments verbal and tactile cues pelvic tilt Supine Exercise Name cues for comfortable range Side bilateral Reps/Minutes 2-3 SH x10 Comments ed not bridging, cues for sacral rocking tailbone to ceiing Manual Therapy Treatment Joint Mobilizations ribs Joint R 8-10 Grade II Comments caudal with exhale, resist inhale then release allow expansion Self-Care/Home Management Treatment Education Patient Education Body Mechanics,Home Exercise Program,Pain Management, Posture,Safety PT-OP-R Modalities Start: 09/08/23 17:41 Freq: Status: Active Protocol: Document 03/01/24 09:42 [facility] (Rec: 03/01/24 10:33 [facility] [id number]) Electric Stimulation Electric Stimulation Interferential Current (IFC) Body Location LS region Patient Position Hooklying Combined With Heat/Cold Hot Pack PT-OP-T Assessment and Plan Start: 09/08/23 17:41 Freq: Status: Active Protocol: Document 03/01/24 09:42 [facility] (Rec: 03/01/24 15:46 [facility] [id number]) Physical Therapy Assessment Goals strength Short Term Goal (STG) Pt will be indep w/HEP STG Duration achieved advancinga s able Retail Service Lead Merchandiser Goal (LTG) Pt will score at least 4+/5 on all LE MMT B (including hip abd and ext) and at least 3/5 LPM to show improved core and LE stability in order to allow for pt to do more daily activities w/o inc pain. 1-slow progress 02/06-no change LTG Duration 04/11 activity Short Term Goal (STG) Pt will be able to do at least 2 miles worth of steps in her day w/o pain greater than 10/12-03/08 with about 1 to 1.5 miles on average 11/30-1.75 to 2 miles a day 04/07 02/06-took a small walk yesterday but came in d/t weather, pain 04/07 still limited during day STG Duration 03/09 Half-Way Goal (LTG) Pt will return to being able to go for walks of at least 2 miles w/o pain stopping her from this activity. 11/30-went around the block and has hills; [place] 1 lap [place] [employer] 02/06-1 block walk -03/08- stopped d/t weather; limited d /t snow, ice, wind and weather LTG Duration 04/08 balance Short Term Goal (STG) Pt will improve SLS to at least 5 sec B to show improved balance and stabilty 10/12-no change 11/30-4 sec L; 3 sec R 02/06-5 sec R; 9 sec L STG Duration achieved 02/06 Retail Service Lead Merchandiser Goal (LTG) Pt will improve SLS to at least 10 sec B to show improved balanec and stabilty 02/06-5 sec R; 9 sec L LTG Duration 04/08 Assessment Summary Assessment Minimal change in back pain with low activity tolerance, not able to go to cardiac rehab, has tried to do HEP but is very limited. ENcouraged breath control through exercises to decrease sympathetic overactivation, ex in pain-free ROM to avoid anticipatory tightening. Patient to see Dr. López next week. Reports she will consider aquatic exercise Physical Therapy Plan Frequency and Duration Frequency of Treatment 1x/Week Duration of treatment (weeks) 8 Plan of Care Start Date 02/07/24 Plan of Care End Date 04/11/24 Therapeutic Interventions Therapeutic Interventions Balance Training,Gait Training ,Home Exercise Program,Joint Mobilizations,Manual Therapy, Neuromuscular Re-education, Orthotic/Prosthetic Management ,Patient/Caregiver Education, Self-Care/Home Management,Soft Tissue Mobilization,Taping, Therapeutic Activities, Therapeutic Exercises Modalities Cold Pack/Ice Massage,Electric Stimulation,Hot Packs, Ultrasound Next Visit Focus/Plan Next Note Type Treatment Note Next Visit Plan POC: cont to work on core stability to dec back pain w/ mobility
--- NOTE | 2024-03-08 10:34 | PT.OTN ---
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) Radiculopathy, lumbar region (03/08/24) Dorsalgia, unspecified (03/08/24) Difficulty in walking, not elsewhere classified (03/08/24) Abnormal posture (03/08/24) Weakness (03/08/24) Other specified postprocedural states (03/08/24) Physical Therapy Treatment Note PT-OP-A Visit Information Start: 09/08/23 17:41 Freq: Status: Active Protocol: Document 03/08/24 09:51 SP (Rec: 03/08/24 10:35 SP [id number]) Out-Patient Physical Therapy Visit Information Visit Information Visit Type Treatment Note Visit Start Time 09:51 Visit Stop Time 10:34 Visit Number 29 Number of HIGH SCHOOL BUSINESS TEACHER Visits 1 PT-OP-B Current Condition Start: 09/08/23 17:41 Freq: Status: Active Protocol: Document 09/09/23 12:47 [facility] (Rec: 09/09/23 13:34 [facility] [id number]) Current Condition History of Current Condition Onset Date decades worse recently Current Complaints LBP w/L leg pain History of Current Condition Pt reports LBP that is chronic (decades). pt had TLIF of L3- 4 in 2020. Pt reports recently pain getting worse again. Pain mostly on L side of back, L hip and into L HS. She has a back brace that she is only using occ d/t MD rec. Pt is avoiding just about everything d/t pain. Pt is trying to track her activity and is aiming to get at least 1 mile total on a day. Pt was up to 4 miles total a day in Jul/aug 2022 and it started to keep decreasing. She has noticed she is standing against the wall a lot. She has occ had to use a cane.P thas a BIPAP machine and is supposed to sleep on her back but has been laying on her side. It has been about 8 years ago that this was difficult. Pt reports LUE and LLLE swell. Pt reports his L leg does give out and feel weak on her. She has had some falls but no injuries. Sometimes she notices she is leaning and she has knocked into the door. She feels like her balance isn 't so good. She doesn't ahve the same response in that leg. Pt does report a diastisis d/ t 2 C sections. Pt reports occ when walking her ankles will just freeze and she just can' t move it and has to slowly wiggle it to get going. Pt reports hx of appendectomy and gallbladder removal. Pt [place] [employer] [place] fall. She can't even make a whole block right now. Pt doing cardio pulm rehab maintence 2x/week. Treatment Goals Patient/Caregiver Goals Be able to walk, do housework, improved balance PT-OP-C Subjective Start: 09/08/23 17:41 Freq: Status: Active Protocol: Document 03/08/24 09:51 SP (Rec: 03/08/24 10:35 SP [id number]) OP-PT Subjective Patient Comments Patient Comments Pt reports still having R lateral ribcage pain. Wearing and abdominal binder that goes over her R shld. PT-OP-D Balance Start: 09/08/23 17:41 Freq: Status: Active Protocol: Document 10/12/23 11:22 [facility] (Rec: 10/12/23 18:04 [facility] [id number]) Balance Tests Single Limb Standing Single Limb- Right 3 sec Single Limb- Left 2 sec PT-OP-G Mobility & Gait Start: 09/08/23 17:41 Freq: Status: Active Protocol: Document 09/09/23 12:47 [facility] (Rec: 09/09/23 18:46 [facility] [id number]) OP Gait Assessment Comments Gait Comments Pt amb w/lat lean B and dec stance time w/o push off PT-OP-J Posture/Palpation/Skin Start: 09/08/23 17:41 Freq: Status: Active Protocol: Document 02/07/24 13:50 [facility] (Rec: 02/07/24 18:18 [facility] [id number]) Posture Evaluation Inocencia Postural Classification System Lumbar Protective Mechanism Left AP 1 Lumbar Protective Mechanism Right AP 1 Lumbar Protective Mechanism Left PA 1 Lumbar Protective Mechanism Right PA 1 PT-OP-K Range of Motion Start: 09/08/23 17:41 Freq: Status: Active Protocol: Document 09/09/23 12:47 [facility] (Rec: 09/09/23 13:34 [facility] [id number]) Lumbar Spine Range of Motion Lumbar Spine Active Percentage Flexion 5 Extension 25 Rotation Left 40 Rotation Right 20 Lateral Flexion Left 60 Lateral Flexion Right 50 Comments pain w/all motions PT-OP-M Strength Start: 09/08/23 17:41 Freq: Status: Active Protocol: Document 02/07/24 13:50 [facility] (Rec: 02/07/24 18:18 [facility] [id number]) Hip Strength Hip Manual Muscle Testing Right Flexion (L2) 3+ Fair+ Abduction 3 Fair External Rotation 4+ Good+ Internal Rotation 5 Normal Left Flexion (L2) 3+ Fair+ Abduction 4- Good- External Rotation 4+ Good+ Internal Rotation 5 Normal Knee Strength Knee Manual Muscle Testing Right Flexion (S2) 4+ Good+ Extension (L3) 5 Normal Left Flexion (S2) 5 Normal Extension (L3) 5 Normal Ankle/Foot Strength Ankle and Foot Manual Muscle Testing Right Dorsiflexion (L4) 5 Normal Plantarflexion (S1) 5 Normal Left Dorsiflexion (L4) 5 Normal Plantarflexion (S1) 5 Normal Comments seated PF testing B PT-OP-Q Treatments Start: 09/08/23 17:41 Freq: Status: Active Protocol: Document 03/08/24 09:51 SP (Rec: 03/08/24 10:35 SP [id number]) Therapeutic Exercises Sidelying Exercises opn book Sidelying Exercise Name trialed- cued breath x2 end feel comfort Side bilateral Resistance AROM Reps/Minutes 5 reps Comments manual fac scapular ROM and TS rotation post manual- pnfree range Sitting Exercises trunk SB Sitting Exercise Name trialed in PT: L lat SB Side right Resistance AROM Equipment Used LUE on table Reps/Minutes 2 breaths x3 reps Comments good feedback R lateral side stretch allowance trunk rotation Side bilateral Resistance arms across chest Equipment Used EO black table Reps/Minutes x4 ea Comments cued painfree range, ok L but discomfort R Manual Therapy Treatment Joint Mobilizations ribs Joint R 8-10 Grade II Comments caudal with exhale, resist inhale then release allow expansion Self-Care/Home Management Treatment Education Patient Education Pain Management,Safety Other Education Short time end tx pt brought newly purchased TENS unit, discussed good benefits, limited time to educate program selection, suggested bring next tx for PT to continue education. Pt also discussed unsure how get on posterolateral ribs with lack UE ROM and unsteady hands. Continued ed breath use for rib mobility. PT-OP-R Modalities Start: 09/08/23 17:41 Freq: Status: Active Protocol: Document 03/01/24 09:42 [facility] (Rec: 03/01/24 10:33 [facility] [id number]) Electric Stimulation Electric Stimulation Interferential Current (IFC) Body Location LS region Patient Position Hooklying Combined With Heat/Cold Hot Pack PT-OP-T Assessment and Plan Start: 09/08/23 17:41 Freq: Status: Active Protocol: Document 03/08/24 09:51 SP (Rec: 03/08/24 10:35 SP [id number]) Physical Therapy Assessment Goals strength Short Term Goal (STG) Pt will be indep w/HEP STG Duration achieved advancinga s able Elevator Mechanic Apprentice Goal (LTG) Pt will score at least 4+/5 on all LE MMT B (including hip abd and ext) and at least 3/5 LPM to show improved core and LE stability in order to allow for pt to do more daily activities w/o inc pain. 1-slow progress 02/06-no change LTG Duration 04/11 activity Short Term Goal (STG) Pt will be able to do at least 2 miles worth of steps in her day w/o pain greater than 10/12-03/08 with about 1 to 1.5 miles on average 2-1.75 to 2 miles a day 04/07 02/06-took a small walk yesterday but came in d/t weather, pain 04/07 still limited during day STG Duration 03/09 Elevator Mechanic Apprentice Goal (LTG) Pt will return to being able to go for walks of at least 2 miles w/o pain stopping her from this activity. 1/-went around the block and has hills; did 1 lap at [employer] boat 02/06-1 block walk -03/08- stopped d/t weather; limited d /t snow, ice, wind and weather LTG Duration 04/08 balance Short Term Goal (STG) Pt will improve SLS to at least 5 sec B to show improved balance and stabilty 10/12-no change 11/30-4 sec L; 3 sec R 02/06-5 sec R; 9 sec L STG Duration achieved 02/06 Elevator Mechanic Apprentice Goal (LTG) Pt will improve SLS to at least 10 sec B to show improved balanec and stabilty 02/06-5 sec R; 9 sec L LTG Duration 04/08 Assessment Summary Assessment Pt good response to manual, ribcage and thoracic A>AAROM through further range and mobility with noted pain reduction but not completely diminished. Continued ed breath control through exercises to decrease sympathetic overactivation, ex in pain-free ROM to avoid anticipatory tightening. Physical Therapy Plan Frequency and Duration Frequency of Treatment 1x/Week Duration of treatment (weeks) 8 Plan of Care Start Date 02/07/24 Plan of Care End Date 04/11/24 Therapeutic Interventions Therapeutic Interventions Balance Training,Gait Training ,Home Exercise Program,Joint Mobilizations,Manual Therapy, Neuromuscular Re-education, Orthotic/Prosthetic Management ,Patient/Caregiver Education, Self-Care/Home Management,Soft Tissue Mobilization,Taping, Therapeutic Activities, Therapeutic Exercises Modalities Cold Pack/Ice Massage,Electric Stimulation,Hot Packs, Ultrasound Next Visit Focus/Plan Next Note Type Treatment Note Next Visit Plan TENS self ed on programs for home use next tx POC: cont to work on core stability to dec back pain w/ mobility
--- NOTE | 2024-03-15 09:48 | PT.OTN ---
Current Diagnoses Spondylosis without myelopathy or radiculopathy, lumbar region (03/15/24) Radiculopathy, lumbar region (03/15/24) Dorsalgia, unspecified (03/15/24) Difficulty in walking, not elsewhere classified (03/15/24) Abnormal posture (03/15/24) Weakness (03/15/24) Other specified postprocedural states (03/15/24) Physical Therapy Treatment Note PT-OP-A Visit Information Start: 09/08/23 17:41 Freq: Status: Active Protocol: Document 03/15/24 08:15 [facility] (Rec: 03/15/24 09:48 [facility] [id number]) Out-Patient Physical Therapy Visit Information Visit Information Visit Type Discharge Summary Visit Start Time 09:06 Visit Stop Time 09:44 Visit Number 30 Number of FUND MANAGER Visits 0 PT-OP-B Current Condition Start: 09/08/23 17:41 Freq: Status: Active Protocol: Document 09/09/23 12:47 [facility] (Rec: 09/09/23 13:34 [facility] [id number]) Current Condition History of Current Condition Onset Date decades worse recently Current Complaints LBP w/L leg pain History of Current Condition Pt reports LBP that is chronic (decades). pt had TLIF of L3- 4 in 2020. Pt reports recently pain getting worse again. Pain mostly on L side of back, L hip and into L HS. She has a back brace that she is only using occ d/t MD rec. Pt is avoiding just about everything d/t pain. Pt is trying to track her activity and is aiming to get at least 1 mile total on a day. Pt was up to 4 miles total a day in Jul/aug 2022 and it started to keep decreasing. She has noticed she is standing against the wall a lot. She has occ had to use a cane.P thas a BIPAP machine and is supposed to sleep on her back but has been laying on her side. It has been about 8 years ago that this was difficult. Pt reports LUE and LLLE swell. Pt reports his L leg does give out and feel weak on her. She has had some falls but no injuries. Sometimes she notices she is leaning and she has knocked into the door. She feels like her balance isn 't so good. She doesn't ahve the same response in that leg. Pt does report a diastisis d/ t 2 C sections. Pt reports occ when walking her ankles will just freeze and she just can' t move it and has to slowly wiggle it to get going. Pt reports hx of appendectomy and gallbladder removal. Pt was walking [employer] [place] last fall. She can't even make a whole block right now. Pt doing cardio pulm rehab maintence 2x/week. Treatment Goals Patient/Caregiver Goals Be able to walk, do housework, improved balance PT-OP-C Subjective Start: 09/08/23 17:41 Freq: Status: Active Protocol: Document 03/15/24 08:15 [facility] (Rec: 03/15/24 09:48 [facility] [id number]) OP-PT Subjective Patient Comments Patient Comments Pt reports was on the porch and deadheading plants and turned the opp way and hit the bottom 2 steps and heard soemthing in back and CT didn' t show anything. This was 1 month ago and it improved since then but not good. Can move a little more again. sees Dr. Bonner tomorrow. Yesterday did a spine yoga program and felt fine doing it and took a lot to recover. PT-OP-D Balance Start: 09/08/23 17:41 Freq: Status: Active Protocol: Document 10/12/23 11:22 [facility] (Rec: 10/12/23 18:04 [facility] [id number]) Balance Tests Single Limb Standing Single Limb- Right 3 sec Single Limb- Left 2 sec PT-OP-G Mobility & Gait Start: 09/08/23 17:41 Freq: Status: Active Protocol: Document 09/09/23 12:47 [facility] (Rec: 09/09/23 18:46 [facility] [id number]) OP Gait Assessment Comments Gait Comments Pt amb w/lat lean B and dec stance time w/o push off PT-OP-J Posture/Palpation/Skin Start: 09/08/23 17:41 Freq: Status: Active Protocol: Document 03/15/24 08:15 [facility] (Rec: 03/15/24 09:48 [facility] [id number]) Posture Evaluation Inocencia Postural Classification System Lumbar Protective Mechanism Left AP 1 Lumbar Protective Mechanism Right AP 1 Lumbar Protective Mechanism Left PA 1 Lumbar Protective Mechanism Right PA 1 PT-OP-K Range of Motion Start: 09/08/23 17:41 Freq: Status: Active Protocol: Document 09/09/23 12:47 [facility] (Rec: 09/09/23 13:34 [facility] [id number]) Lumbar Spine Range of Motion Lumbar Spine Active Percentage Flexion 5 Extension 25 Rotation Left 40 Rotation Right 20 Lateral Flexion Left 60 Lateral Flexion Right 50 Comments pain w/all motions PT-OP-M Strength Start: 09/08/23 17:41 Freq: Status: Active Protocol: Document 03/15/24 08:15 [facility] (Rec: 03/15/24 09:48 [facility] [id number]) Hip Strength Hip Manual Muscle Testing Right Flexion (L2) 3+ Fair+ Abduction 3+ Fair+ External Rotation 4+ Good+ Internal Rotation 5 Normal Left Flexion (L2) 3+ Fair+ Abduction 4- Good- External Rotation 4+ Good+ Internal Rotation 5 Normal Knee Strength Knee Manual Muscle Testing Right Flexion (S2) 5 Normal Extension (L3) 5 Normal Left Flexion (S2) 5 Normal Extension (L3) 5 Normal Ankle/Foot Strength Ankle and Foot Manual Muscle Testing Right Dorsiflexion (L4) 5 Normal Plantarflexion (S1) 5 Normal Left Dorsiflexion (L4) 5 Normal Plantarflexion (S1) 5 Normal Comments seated PF testing B PT-OP-Q Treatments Start: 09/08/23 17:41 Freq: Status: Active Protocol: Document 03/15/24 08:15 [facility] (Rec: 03/15/24 09:48 [facility] [id number]) Therapeutic Exercises Supine Exercises bridge Side bilateral Reps/Minutes 8 Comments w/traction march Supine Exercise Name w/core Side bilateral Reps/Minutes 10 Heel slides Side bilateral Reps/Minutes 5 Comments cues to breathe and keep core engaged LTR Side bilateral Reps/Minutes 12 Comments tactile cues for PPT and core engagement BKFO Supine Exercise Name TA engagement Side bilateral Reps/Minutes 10 ea Comments tactile cues for PPT and core engagement pelvic tilt Side bilateral Reps/Minutes 5 Manual Therapy Treatment Soft Tissue Mobilization back Body Location b ES, QL Mobilization Type Myofascial Release,Rolling, Strumming Intensity/Depth Moderate Body Position Sidelying hip Body Location R sup glute Mobilization Type Rolling,Strumming,Sustained Pressure Intensity/Depth Moderate Body Position s/l Self-Care/Home Management Treatment Education Other Education 5 min: discussed return to pool & cont HEP PT-OP-R Modalities Start: 09/08/23 17:41 Freq: Status: Active Protocol: Document 03/01/24 09:42 [facility] (Rec: 03/01/24 10:33 [facility] [id number]) Electric Stimulation Electric Stimulation Interferential Current (IFC) Body Location LS region Patient Position Hooklying Combined With Heat/Cold Hot Pack PT-OP-T Assessment and Plan Start: 09/08/23 17:41 Freq: Status: Active Protocol: Document 03/15/24 08:15 [facility] (Rec: 03/15/24 09:48 [facility] [id number]) Physical Therapy Assessment Goals strength Short Term Goal (STG) Pt will be indep w/HEP STG Duration achieved advancinga s able Long-Term Goal (LTG) Pt will score at least 4+/5 on all LE MMT B (including hip abd and ext) and at least 3/5 LPM to show improved core and LE stability in order to allow for pt to do more daily activities w/o inc pain. 1-slow progress 02/06-no change LTG Duration no major change recently activity Short Term Goal (STG) Pt will be able to do at least 2 miles worth of steps in her day w/o pain greater than 4/ 10 10/12-03/08 with about 1 to 1.5 miles on average 1/2-1.75 to 2 miles a day 04/07 02/06-took a small walk yesterday but came in d/t weather, pain /10 still limited during day STG Duration no major change Aquatic Scientist Goal (LTG) Pt will return to being able to go for walks of at least 2 miles w/o pain stopping her from this activity. 1-went around the block and has hills; did 1 lap [place] [employer] [place] 02/06-1 block walk -03/08- stopped d/t weather; limited d /t snow, ice, wind and weather LTG Duration no major change balance Short Term Goal (STG) Pt will improve SLS to at least 5 sec B to show improved balance and stabilty 10/12-no change 11/30-4 sec L; 3 sec R 02/06-5 sec R; 9 sec L STG Duration achieved 02/06 Aquatic Scientist Goal (LTG) Pt will improve SLS to at least 10 sec B to show improved balanec and stabilty 02/06-5 sec R; 9 sec L LTG Duration 04/08 Assessment Summary Assessment Pt has made limited progress recently and did have a recent fall that inc pain. Pt does have HEP and is indep w/this at this time so review of HEP and edu to cont along w/work w /pain management doctor. Physical Therapy Plan Discharge Physical Therapy Discharge Reasons Plateau in Progress
== END 2024-03-17 13:53 | disposition home or self-care (01) ==
LOC: PHYS 09:00
PROVIDERS: Family Provider Registered Nurse; PCP Registered Nurse; Referring Provider Anesthesiology; Visit Provider Anesthesiology
DX: M54.16 Radiculopathy, lumbar region (principal); M47.816 Spondylosis without myelopathy or radiculopathy, lumbar region; M54.9 Dorsalgia, unspecified; Z98.890 Other specified postprocedural states; R29.3 Abnormal posture; R53.1 Weakness; R26.2 Difficulty in walking, not elsewhere classified
CPT/HCPCS: 97014; 97110; 97140; 97162; 97530; 97535; G0283

== ENCOUNTER → 2025-04-26 13:03 | Outpatient (CLI) | payer MEDICARE, OTHER, SELFPAY ==
[2020-10-07 13:02] VITALS: BMI 44.7
--- NOTE | 2025-04-26 13:14 | DI.RAD.S_ITS ---
PROCEDURE: XR WRIST LT 2V INDICATIONS: LEFT WRIST PAIN TECHNIQUE: 2 views of the wrist were acquired. COMPARISON: None. FINDINGS: Bones: No fractures or dislocations. No suspicious bony lesions. There is diffuse bony osteopenia. There is moderate degenerative changes involving the STT joint. Soft tissues: No suspicious soft tissue calcifications. IMPRESSION: No acute bony abnormality. Dictated by: Kisha Neumann M.D. on 04/26/2025 at 15:27 Approved by: Kisha Neumann M.D. on 04/26/2025 at 15:29
== END ==
PROVIDERS: Family Provider Registered Nurse; PCP Registered Nurse; Referring Provider Registered Nurse; Visit Provider Registered Nurse
DX: M79.602 Pain in left arm (principal)
CPT/HCPCS: 73100

== ENCOUNTER → 2025-07-09 16:16 | Outpatient (CLI) | payer MEDICARE, OTHER, SELFPAY ==
[2020-10-07 13:02] VITALS: BMI 44.7
--- NOTE | 2025-07-09 16:19 | DI.RAD.S_ITS ---
PROCEDURE: XR CHEST 2V INDICATIONS: PNEUMONIA TECHNIQUE: 2 views of the chest were acquired. COMPARISON: [facility], CR, XR CHEST 1 VIEW, 09/24/2021, 17:40. [facility], CR, XR CHEST 2V, 05/24/2019, 17:35. FINDINGS: Surgical changes and devices: None. Lungs and pleura: Lungs are clear. No pleural effusions or pneumothorax. Mediastinum: Mediastinal contours are normal. Heart size is normal. Bones and chest wall: No suspicious bony abnormalities. Soft tissues appear unremarkable. IMPRESSION: No acute cardiopulmonary abnormality is seen. Dictated by: Terry Morse M.D. on 07/09/2025 at 16:51 Approved by: Terry Morse M.D. on 07/09/2025 at 16:52
== END ==
PROVIDERS: Family Provider Registered Nurse; PCP Registered Nurse; Referring Provider Registered Nurse; Visit Provider Registered Nurse
DX: J18.9 Pneumonia, unspecified organism (principal)
CPT/HCPCS: 71046

== ENCOUNTER → 2025-09-06 12:07 | Outpatient (CLI) | payer MEDICARE, OTHER, SELFPAY ==
[2020-10-07 13:02] VITALS: BMI 44.7
--- NOTE | 2025-09-19 07:39 | DI.NM.S_ITS ---
DATE OF SERVICE: 09/06/2025 NUCLEAR CARDIOLOGY MYOCARDIAL PERFUSION STUDY PROCEDURE: Pharmacologic vasodilator stress and rest myocardial perfusion imaging with gating to assess ejection fraction and regional wall motion. ORDERING PROVIDER: Disha Poole MD INDICATIONS: The patient is a 74-year-old female with a known ischemic cardiomyopathy and prior myocardial infarction with stenting to the LAD who presents with exertional dyspnea. CARDIAC STRESS: Per protocol, 0.4 mg of regadenoson was infused with a normal hemodynamic response. She had minimal dyspnea but no chest discomfort. Her resting ECG is normal except for anteroseptal Q-waves but normal ST segments. There are no significant ST-segment shifts or arrhythmias with stress. Per protocol, 25.4 mCi of technetium-99m Myoview was injected and she was imaged 15 minutes later using a gated SPECT acquisition protocol. Twelve days later while at rest, she was injected with an additional 24.5 millicuries of technetium-99m Myoview and imaged 15 minutes later, again using a gated SPECT acquisition protocol. FINDINGS: 1. Raw data: There is fair myocardial tracer uptake but prominent breast shadows that traverse the majority of the anterior portion of the left ventricle. The lung/heart ratio is normal at 0.30 with a normal TID ratio of 1.12. 2. Quantitated gated SPECT: Post-stress ejection fraction is 61% with severe hypokinesis in the distal anterior wall and apex although visualization is limited by the breast attenuation artifact. The remaining segments appear to have fairly normal contractility. Resting ejection fraction is 54% with an identical contraction pattern. Resting end-diastolic volume is mildly increased at 126 mL. 3. Myocardial perfusion imaging: There is a severe perfusion defect in the mid to distal anterior wall and anterior septum extending to and including the apex and periapical segments. While this defect improves in the proximal portion on prone imaging, suggesting that some degree is likely related to breast attenuation artifact, the defect persists distally, consistent with a true perfusion defect. The resting images show an identical perfusion pattern to that of the post-stress supine images without significant improvement. IMPRESSION: 1. Abnormal myocardial perfusion study. 2. Moderately large, severe, fixed perfusion defect in the mid to distal anterior wall, anterior septum, apex, and periapical segments consistent with previous anteroapical infarction but without significant ischemia. 3. Mildly reduced left ventricular systolic function with severe hypokinesis in the mid to distal anterior wall and apex on both stress and rest images. Left ventricular volumes are mildly increased. 4. No angina or ECG evidence of ischemia with pharmacologic vasodilator stress. There were no arrhythmias. 5. Compared to the previous myocardial perfusion study of 04/10/2020, the anteroapical defect was present previously but now is much more obvious suggesting possible interval infarction, although breast attenuation artifact complicates the interpretation. The previous ejection fraction was 74% with a resting end-diastolic volume of 119 mL, suggesting slightly reduced systolic function but unchanged left ventricular volumes. Kim Diggs - MARIA ISABEL/viki/PARAMJIT doc#: [id number]/job#: [id number] dd: 09/18/2025 16:43:00 dt: 09/18/2025 23:13:00 DICTATING MD/COPIES TO: Avelino Florez MD; Disha Poole MD COPIES MNE: [id number];
== END ==
LOC: NUCM 12:07
PROVIDERS: Family Provider Registered Nurse; PCP Registered Nurse; Referring Provider Internal Medicine Cardiovascular Disease; Visit Provider Internal Medicine Cardiovascular Disease
DX: I25.10 Atherosclerotic heart disease of native coronary artery without angina pectoris (principal); R94.39 Abnormal result of other cardiovascular function study; R07.9 Chest pain, unspecified; Z95.5 Presence of coronary angioplasty implant and graft
CPT/HCPCS: 78452; 93017; A9502; J2785